=== PATIENT | female | born 1970 | race African-American/Black ===

== ENCOUNTER 2018-11-16 13:37 | Emergency (ER) | payer BC, SELFPAY ==
--- OUTSIDE RECORDS SUMMARY | 2018-11-16 13:40 | XMS REPORT ---
:1970 [facility] Address [address] [place] [address] Care Team Providers Name Role Phone CABRERA-JOSIE ANN Unavailable Unavailable Payers Payer Name Policy Type Policy Number Effective Date Expiration Date Problems This patient has no known problems. Allergies, Adverse Reactions, Alerts Allergy Allergy Status Severity Reaction(s) Onset Inactive Treating Comments Name Type Date Date Clinician No Known DA Active U 2018-03 Allergies - 00:00:0 0 No Known DA Active U 2018-02 Allergies - 00:00:0 0 No Known DA Active U 2018-01 Allergies - 00:00:0 0 No Known DA Active U 2017-11 Allergies - 00:00:0 0 Medications This patient has no known medications. Encounters Start End Encounter Admission Attending Care Care Encounter Date/Time Date/Time Type Type Clinicians Facility Department ID 2018-07-09 2018-07-09 Emergency E [facility] 7526 14:34:00 14:34:00 2018-05-16 2018-05-16 Emergency E [facility] 7525 13:42:00 13:42:00 Results Test Description Test Time Test Comments Text Results Atomic Results Result Comments GLUBED 2018-08-09 08:31:00 Test Item Value Reference Range Comments GLUBED (test code=GLUBED) 328 MG/DL 70-110 Performed by certified carbon furnace operator at [facility] [id number] 20:40:00 Test Item Value Reference Range Comments GLUBED (test code=GLUBED) 252 MG/DL 70-110 Performed by certified carbon furnace operator at [facility] [id number] 16:10:00 Test Item Value Reference Range Comments GLUBED (test code=GLUBED) 78 MG/DL 70-110 Performed by certified carbon furnace operator at [facility] [id number] 12:55:00 Test Item Value Reference Range Comments GLUBED (test code=GLUBED) 187 MG/DL 70-110 Performed by certified carbon furnace operator at [facility] - CT HEAD/BRAIN W/O [id number] 09:31:00 Name: DANIA JANE [facility] : 1970 Age/S: 48 / F [address] [place] [address] Unit #: [id number] Loc: Saúl [id number] Phys: Tami Miguel MD Acct: [id number] Dis Date: Status: ADM IN PHONE #: [phone] Exam Date: 907 FAX #: [phone] Reason: LEFT WEAKNESS , EVAL FOR STABILITY EXAMS: CPTCODE: [id number] CT HEAD/BRAIN W/O CONT 33885 CT head without contrast 08/08/2018 HISTORY: Left-sided weakness. PROCEDURE: Multipleaxial images from the skull base to the skull vertex were obtained without contrast. Coronal and sagittal reconstructed images were performed. DLP: 1016.5 Comparison is madeto 08/06/2018 FINDINGS: Old right basal ganglia lacunar infarct is noted. There are mild white matter hypodensities. No acute hemorrhage, midline shift, extra-axial fluid collection, hydrocephalus, or mass lesion is present. No cortical hypodensity to suggest an acuteinfarct is noted. The visualized mastoid air cells are clear. There is no air-fluid level in the visualized paranasal sinuses. Left nasal septal deviation is noted.IMPRESSION: 1. No acute intracranial abnormality. 2. Mild chronic microvascular ischemic changes. SL: [id number] at 0931 Reported and signed by: Manny Zuñiga M.D. CC: Bernardo Hazel MD; Tami Bonds MD; Tierra Man MD Technologist:Rey Bonner, RT(R)(CT) CTDI: DLP: Trnscb Date/Time: 08/08/2018 (09) [email or web address] Orig Print D/T: S: 08/08/2018 (0934) CTDI: DLP: PAGE 1 Signed [id number] 08:27:00 Test Item Value Reference Range Comments GLUBED (test code=GLUBED) 328 MG/DL 70-110 Performed by certified carbon furnace operator at [facility] HGBA1C%2018-08-08 08:09:00 Test Item Value Reference Range Comments HGBA1C% (test code=HGBA1C%) 13.6 %A1C 4.8-6.0 LIPID PROFILE (CORONARY RISK)2018-08-08 07:56:00 Test Item Value Reference Range Comments TRIGLYCERIDES (test 196 mg/dL 40-150 code=TRIG) CHOLESTEROL (test 430 mg/dL <200 code=CHOL) CHOLESTEROL/HDL RATIO (test 11.32 RATIO 3.27-4.44 RISK ASSOCIATED WITH CHOL/ HDL code=CHOLHDL) RATIOS: RISK MALE FEMALE1/2 AVERAGE 3.43 3.27AVERAGE 4.97 4.442X AVERAGE 9.55 7.053X AVERAGE 23.39 11.04 NOTE THAT THE REFERENCE VALUE IS RELATEDTO RISK LEVELS RECOMMENDED BY THE NATL.HEART, LUNG, AND BLOOD INST. HDL CHOLESTEROL (test 38.0 mg/dL 39-96 code=HDL) LIPOPROTEIN LDL (test 311 mg/dL 0-100 <100 [id number] NEAR code=LDL) OPTIMAL/ABOVE [id number] HIGH>CT=841 VERY HIGH*Guidelines provided by the National Cholesterol EducationProgram Adult Treatment Panel III COMMENTS: Fasting in AMBASIC METABOLIC [id number] 21:01:00 Test Item Value Reference Range Comments SODIUM (test code=NA) 145 mEq/L 134-147 POTASSIUM (test code=K) 3.1 mEq/L 3.4-5.0 CHLORIDE (test code=CL) 101 mEq/L 100-108 CARBON DIOXIDE (test code=CO2) 27 mEq/L 21-33 ANION GAP (test code=GAP) 20 0-20 GLUCOSE (test code=GLU) 179 mg/dL 70-110 BLOOD UREA NITROGEN (test 7 mg/dL 7-18 code=BUN) GLOMERULAR FILTRATION RATE 107.2 90-95 Units of measure=ml/min/1.73 (test code=GFR) m2 CREATININE (test code=CREAT) 0.7 mg/dL 0.6-1.3 CALCIUM (test code=CA) 9.2 mg/dL 8.0-10.5 [id number] 21:01:00 Test Item Value Reference Range Comments TROPONIN-I (test < 0.015 ng/mL 0.000-0.045 Negative: <=0.045 code=TROPI) Positive: >=0.046 Correlation with serial results, other cardiac markers andclinical findings is necessary to determine the clinicalsignificance of this result. Results using different methodologies should not be comparedto one another as quantitative results may vary by method. URINALYSIS [id number] 20:56:00 Test Item Value Reference Range Comments UA COLOR (test code=COLU) YELLOW YEL/STRAW UA APPEARANCE (test code=APPU) CLOUDY CLEAR UA GLUCOSE DIPSTICK (test code=DGLUU) 3+ NEGATIVE UA BILIRUBIN DIPSTICK (test code=BILU) NEGATIVE NEGATIVE UA KETONE DIPSTICK (test code=KETU) NEGATIVE NEGATIVE UA SPECIFIC GRAVITY (test code=SGU) 1.014 1.005-1.030 UA BLOOD DIPSTICK (test code=ELVIRA) NEGATIVE NEGATIVE UA PH DIPSTICK (test code=TY) 6.0 5.0-7.0 UA PROTEIN DIPSTICK (test code=PROU) 1+ NEGATIVE UA UROBILINIOGEN DIPSTICK (test code=URO) 0.2 mg/dL 0.2-1.0 UA NITRITE DIPSTICK (test code=CARLOTA) NEGATIVE NEGATIVE UA LEUKOCYTE ESTERASE DIPSTICK (test code=LEUU) 3+ NEGATIVE UA WBC (test code=WBCU) >50 WBC/HPF 0-3 UA RBC (test code=RBCU) 4-10 RBC/HPF 0-3 UA BACTERIA (test code=BACU) 1+ /HPF NONE SEEN UA SQUAMOUS CELLS (test code=SQU) 6-10 /HPF NONE SEEN UA HYALINE CAST (test code=HYALU) 3-5 /LPF NONE SEEN UA MUCUS (test code=MUCU) TRACE /LPF NONE SEEN COMMENTS: Clean CatchPROTHROMBIN [id number] 20:56:00 Test Item Value Reference Range Comments PROTHROMBIN TIME PATIENT 12.3 SECONDS 9.3-12.9 (test code=PTP) INTERNATIONAL NORMAL RATIO 1.1 0.8-1.2 TARGET INR BY (test code=INR) INDICATION Indication INR1. Prophylaxis of venous thrombosis 2.0 - 3.0 (orthopedic surgery), Prophylaxis of venous thrombosis (other than high-risk surgery), Treatment of Deep Vein Thrombosis/Pulmonary Embolism, Prevention of systemic embolism - Tissue heart valves, Acute Myocardial Infarction (to prevent systemic embolism), Valvular heart disease, Atrial Fibrillation, Bileaflet mechanical valve in aortic position.2. Mechanical prosthetic valves (high risk), 2.5 - 3.5 Presence of Lupus Anticoagulant or Antiphospholipid Antibodies, Prevention of systemic embolism - Acute Myocardial Infarction (to prevent recurrent infarct). THROMBOPLASTIN TIME [id number] 20:56:00 Test Item Value Reference Range Comments THROMBOPLASTIN TIME PARTIAL 34.6 Seconds 25.0-39.5 Therapeutic Range: (test code=PTT) 61.8-83.8 Sec Effective 05/22/2013 CBC W/O [id number] 20:51:00 Test Item Value Reference Range Comments WHITE BLOOD CELL (test code=WBC) 7.31 x10 3/uL 4.5-11.0 RED BLOOD CELL (test code=RBC) 4.45 x10 6/uL 3.54-5.02 HEMOGLOBIN (test code=HGB) 13.4 g/dL 11.0-15.0 HEMATOCRIT (test code=HCT) 39.3 % 33.0-45.0 MEAN CELL VOLUME (test code=MCV) 88.3 fL 81.0-99.0 MEAN CELL HGB (test code=MCH) 30.1 pg 27.0-33.0 MEAN CELL HGB CONCETRATION (test code=MCHC) 34.1 g/dL 33.0-37.0 RED CELL DISTRIBUTION WIDTH CV (test code=RDW) 12.4 % 11.5-14.5 RED CELL DISTRIBUTION WIDTH SD (test 40.8 fL 37.0-54.0 code=RDW-SD) PLATELET COUNT (test code=PLT) 318 x10 3/uL 150-400 MEAN PLATELET VOLUME (test code=MPV) 11.3 fL 7.0-9.0 - CT HEAD/BRAIN W/O [id number] 20:23:00 Name: DANIA JANE : 1970 Age/S: 48 / F [address] [facility] Unit #: [id number] Loc: YASIR Hays77598 Phys: Vinay Gross MD Acct: [id number] Dis Date: Status: REG ER PHONE #: [phone] Exam Date: 2007 FAX #: [phone] Reason: L sidedstroke symptoms EXAMS: CPTCODE: [id number] CT HEAD/BRAIN W/O CONT 56969 STUDY: - CT HEAD/BRAIN W/O CONT 08/06/2018 7 :46 PM Ordering Physician: Vinay Gross MD Patient Name: DANIA JANE MR: [id number] : 1970; Age: 48 years y/o Female Clinical Indication: Left side stroke symptoms. Comparison: 06/04/2018. TECHNIQUE: Multiple contiguous transaxial noncontrast CT images were obtained through thehead. Coronal and sagittal reformatted images were prepared. DLP: 419.70 mGy-cm FINDINGS: BRAIN PARENCHYMA: Mild diffuse age appropriate atrophy associated with nonspecific periventricular low low attenuation most consistent with old microangiopathic ischemic change. No evidence of acute intracranial hemorrhage, mass lesion, mass effect, midline shift, or extra-axial fluid collection. 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 VENTRICLES: The lateral ventricles, third ventricle, fourth ventricle, and basilar cisterns are appropriate for degree of atrophy present.PARANASAL SINUSES: The visualized portions of the paranasal sinuses are clear. MASTOIDS: Clear. ORBITS: The visualized portions of the orbits are normal.SOFT TISSUES: No significant abnormality. SKULL: No acute fracture or suspicious osseous lesion. IMPRESSION: PAGE 1 Signed Report (CONTINUED) Name: DANIA JANE : 1970 Age/S: 48 / F [address] [place] [address] Unit #: [id number] Loc: YASIR [place] [address] Phys: Vinay Gross MD Acct: [id number] Dis Date: Status: REG ER PHONE #: [phone] Exam Date: 08/06/20182007 FAX #: [phone] Reason: L sided stroke symptoms EXAMS: CPT CODE: [id number] CT HEAD/BRAIN W/O CONT 05139 <Continued> Mild diffuse age appropriate atrophy associated with nonspecific periventricular low low attenuation most consistent with old microangiopathic ischemic change. 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 No acute intracranial abnormality. SL: TPAINTER-H at 2022 Reported and signed by: Nawaf Land M.D. CC: Vinay Gross MD; Tierra Man MD Technologist:Leonela Ulloa RT(R)(CT) CTDI: DLP: Trnscb Date/Time: 08/06/2018 (2022) [place].TP6 [facility] S: 08/06/2018 (2025) CTDI: DLP: PAGE 2 Signed Report- XR CHEST 1 [id number] 20:22:00 FAX: Vinay Gross MD [phone] [place]: St: REG FAX: Tierra Shepard MD [phone] -- Name: DANIA JANE [facility] : 1970 Age/S: 48/F [address] [place] [address] Blvd Unit #: [id number] Loc: G.ERS2 [place] [address] Phys: Vinay Gross MD Acct: [id number] Dis Date: Status: REG ER PHONE #: [phone] Exam Date: 08/06/20182004 FAX #: [phone] Reason: L sidedstroke symptoms EXAMS: CPT CODE: [id number] XR CHEST 1 V 17598 Study: - XRCHEST 1 V 08/06/2018 7:46 PM Ordering Physician: Vinay Gross MD Clinical Indication: Left-sided stroke symptoms. Comparison: May 23, 2018 FINDINGS: The lungs are adequately expanded and clear. There is no evidence for alveolar consolidation, pleural effusion, pulmonary edema or pneumothorax. The cardiomediastinal silhouette is within normal limits. No acute osseous abnormality is seen. Soft tissues are unremarkable. IMPRESSION: No acute cardiopulmonary disease. SL: TRISTAN at 2021 Reported and signed by: Grisel Camejo M.D. CC: Vinay Gross MD; Tierra Man MD Technologist: RT Nasim(R)(M) Trnscrd Date/Time/By: 08/06/2018 ( 2021) : By: DionneYA Orig Print D/T: S: 08/06/2018 (2024) PAGE 1 Signed Report- XR L-SPINE 2/3 [id number] 16:03:00 FAX: Millicent ValenciaP [phone] [place]: St: PRE FAX: Tierra Shepard MD [phone] Name: DANIA JANE [facility] [place] : 1970 Age/S: 47/F [address] [place] [address] Unit #: [id number] Loc: [place] [address] Phys: Millicent ValenciaP Acct: [id number] Dis Date : Status: PRE ER PHONE #: [phone] Exam Date: 06/04/2018 1526 FAX #: [phone] Reason: fall -hit back on step EXAMS: CPT CODE: [id number] XR L-SPINE 2/3 VIEWS 44669 3 RADIOGRAPHIC VIEWS LUMBAR SPINE INDICATION: Fall and back pain. Struck the back. TECHNIQUE: 3 radiographic views lumbar spine COMPARISONS: CT lumbar spine 05/23/2018 FINDINGS: There are metallic leads overlying the upper abdomen.There is a stable retained wire posterior to the left L5-S1 facet joint. There had been a neurostimulator device which had been removed previously. There are advanced primaryosteoarthritic hypertrophic degenerative changes of the facets from L4-S1. There are 5 lumbar type vertebral segments below the last pair of thoracic ribs. There is no acute lumbar spine fracture or dislocation. There is 3 mm degenerative retrolisthesis of L1 on L2, 2 mm retrolisthesis of L2 on L3, 2 mm retrolisthesis of L3 on L4 and 3 mm anterolisthesis of L4 on L5. There is moderate degenerative disc height loss at L5-S1. IMPRESSION: 1. There is no acute lumbar spine fracture or dislocation. 2. There areadvanced primary osteoarthritic hypertrophic degenerative changes of the facets from L4-S1. There is 3 mm degenerative retrolisthesis of L1 on L2, 2 mm retrolisthesis of L2 on L3, 2 mm retrolisthesis of L3 on L4 and 3 mm anterolisthesis of L4 on L5. There is moderate degenerative disc height loss at L5-S1. 3. There is a stable retained wire posterior in the soft tissues to the left L5-S1 facet joint. There had been a neurostimulator device which had been removed previously. PAGE 1 Signed Report (CONTINUED) FAX: Millicent Valencia [phone] [place]: St : PRE FAX: Tierra Shepard MD [phone] Name: DANIA JANE [facility] : 1970 Age/S: 47/ F [address] [place] [address] Unit #: [id number] Loc: [place] [address] Phys: Millicent Valencia Acct: [id number] Dis Date: Status: PRE ER PHONE #: [phone] Exam Date: 06/04 1526 FAX #: [phone] Reason: fall -hit back on step EXAMS: CPT CODE : [id number] XR L-SPINE 2/3 VIEWS 34384 <Continued& gt; at 1603 Reportedand signed by: Ridge Mathews D.O. CC: Millicent Valencia; Tierra Man MD Technologist: JENNA Pinedo RT(R); Selina Patton RT (R) Trnscrd Date/Time/By:06/04/2018 (1600) : By: [email or web address] Orig Print D/T: S: 06/04/2018 (1350) PAGE 2 Signed Report- CT C-SPINE W/O [id number] 15:46:00 Name: DANIA JANE [facility] : 1970 Age/S: 47 / F [address] [place] [address] Unit #: [id number] Loc: YASIR Hays77598 Phys: Millicent Valencia Acct: [id number] Dis Date : Status: PRE ER PHONE #: [phone] Exam Date: 06/04/2018 1522 FAX #: [phone] Reason: fall -hit back of head on step-on [place]IX EXAMS: CPTCODE: [id number] CT C-SPINE W/O CONT 99246 STUDY: - CT HEAD/BRAIN W/O CONT, - CT C-SPINE W/O CONT 06/04/2018 3:03 PM Ordering Physician: Millicent Valencia Patient Name: DANIA JANE MR: [id number] : 1970; Age: 47 years y/o Female Clinical Indication: fall -hit back of head on step-on PLAVIX Comparison: May 23, 2018 TECHNIQUE: Multiple contiguous transaxial noncontrast CT images were obtained through the head. Coronal and sagittal reformatted images were prepared. DOSE: CT imaging performed at this location utilizes radiation dose optimization technique which includes one or more of the followin) Automated exposure control ; 2) Adjustment of the mA and/or kV according to patient's size; 3) Use of iterative reconstruction techniques. DLP (mGy-cm): 420 FINDINGS: The brain volume is appropriate for age. Probable subtle lacunar infarct within the right basal ganglia. No evidence of acute intracranial hemorrhage, mass lesion, mass effect, midline shift, or extra-axial fluid collection. The lateral ventricles, third ventricle, fourth ventricle, and basilar cisterns are appropriate for degree of atrophy present. The visualized portions of the paranasal sinuses are clear. Mastoids are clear. IMPRESSION: Probable subtle lacunar infarct within the right basal ganglia. Otherwise no acute intracranial abnormality. PAGE 1 Signed Report (CONTINUED) Name: DANIA JANE [facility] [place] : 1970 Age/S: 47 / F [address] [place] [address] Blvd Unit #: [id number] Loc: YASIR [place] [address] Phys: Millicent Valencia TALENT ACQUISITION DIRECTOR Acct: [id number] Dis Date: Status: PRE ER PHONE #: [phone] Exam Date: 06/04/2018 1522 FAX #: [phone] Reason: fall -hit back of head on step-on PLAVIX EXAMS: CPT CODE: [id number] C-SPINE W/O CONT 94918 <Continued> EXAM: CT CERVICAL SPINE WITHOUT CONTRAST DATE: 06/04/2018 3:03 PM : 1970 ; Age: 47 years y/o Female INDICATION: Neck pain fall -hit back of head on step-on PLAVIX COMPARISON: April 20, 2018 TECHNIQUE: Volumetric CT of the cervicalspine is acquired without contrast. Axial, coronal and sagittal images are provided. IV contrast: None. DLP: 298 mGy-cm CT imaging performed at this location utilizes radiation dose optimization techniques which include one or more of the following: -Automated exposure control - Adjustment of the mA and/or kV according to patient size -Use of iterative reconstruction technique FINDINGS: No acute fracture , malalignment or other acute bony abnormality is identified. No soft tissue abnormality is identified. Postoperative fusion changes again seen at C4-5. Straightening of the cervical spine again seen. Mild multilevel degenerative changes. Low-attenuation changes within the thyroid lobes again seen. IMPRESSION: No acute abnormality. SL: [id number] Electronically Signed by Heide Connolly on 02/2019 at 1546 Reported and signed by: Natasha Connolly D.O. CC: Millicent Man MD Technologist: Elizabeth Rea, RT(R) CTDI: DLP: Trnscb Date/Time: 06/04 (9689) t.SDR.MP37 Orig Print D/T: S: 06/04/2018 (0784) CTDI: DLP: PAGE 2 Signed Report- CT HEAD/ BRAIN W/O [id number] 15:46:00 Name: DANIA JANE [facility] [place] : 1970 Age/S: 47 / F [address] [place] [address] Bl Unit #: [id number] Loc: Saúl [id number] Phys: Millicent Valencia Acct: [id number] Dis Date: Status: PRE ER PHONE #: [phone] Exam Date: 06/04/2018 1522 FAX #: [phone] Reason: fall -hit back of head on step-on [place]VIX EXAMS: CPTCODE: [id number] CT HEAD/BRAIN W/O CONT 94910 STUDY: - CT HEAD/BRAIN W/O CONT, - CT C-SPINE W/O CONT 06/04/2018 3:03 PM Ordering Physician: Millicent Valencia Patient Name: DANIA JNAE MR: [id number] : 1970; Age: 47 years y/o Female Clinical Indication: fall -hit back of head on step-on PLAVIX Comparison: May 23, 2018 TECHNIQUE: Multiple contiguous transaxial noncontrast CT images were obtained through the head. Coronal and sagittal reformatted images were prepared. DOSE: CT imaging performed at this location utilizes radiation dose optimization technique which includes one or more of the followin) Automated exposure control; 2) Adjustment of the mA and/or kV according to patient's size; 3) Use of iterative reconstruction techniques. DLP (mGy-cm): 420 FINDINGS: The brain volume is appropriate for age. Probable subtle lacunar infarct within the right basal ganglia. No evidence of acute intracranial hemorrhage, mass lesion, mass effect, midline shift, or extra-axial fluid collection. The lateral ventricles, third ventricle, fourth ventricle, and basilar cisterns are appropriate for degree of atrophy present. The visualized portions of the paranasal sinuses are clear. Mastoids are clear. IMPRESSION: Probable subtle lacunar infarct within the right basal ganglia. Otherwise no acute intracranial abnormality. PAGE 1 Signed Report (CONTINUED) Name: [facility] : 1970 Age/S: 47 / F [address] [place] [address] Unit #: [id number] Loc: [place] [address] Phys: Millicent Valencia Acct: [id number] Dis Date: Status: PRE ER PHONE #: [phone] Exam Date: 06/04/2018 1522 FAX #: [phone] Reason: fall -hit back of head on step-on PLAVIX EXAMS: CPT CODE : [id number] HEAD/BRAIN W/O CONT 21025 & lt;Continued> EXAM: CT CERVICAL SPINE WITHOUT CONTRAST DATE: 06/04/2018 3:03 PM : 1970; Age: 47 years y/o Female INDICATION: Neck pain fall -hit back of head on step-on PLAVIX COMPARISON: April 20, 2018 TECHNIQUE: Volumetric CT of the cervicalspine is acquired without contrast. Axial, coronal and sagittal images are provided. IV contrast: None. DLP: 298 mGy-cm CT imaging performed at this location utilizes radiation dose optimization techniques which include one or more of the following: - Automated exposure control -Adjustment of the mA and/or kV according to patient size -Use of iterative reconstruction technique FINDINGS: No acute fracture, malalignment or other acute bony abnormality is identified. No soft tissue abnormality is identified. Postoperative fusion changes again seen at C4-5. Straightening of the cervical spine again seen. Mild multilevel degenerative changes. Low- attenuation changes within the thyroid lobes again seen. IMPRESSION: No acute abnormality. SL: [id number] at 1546 Reported and signed by: Natasha Connolly D.O. CC: Millicent Man MD Technologist:Elizabeth Rea, RT(R) CTDI: DLP: Trnscb Date/Time: 06/04/2018 (2247) t.SDR.MP37 Orig Print D/T: S: 06/04/2018 (6695) CTDI: DLP: PAGE 2 Signed [id number] 16:10:00 Test Item Value Reference Range Comments GLUBED (test code=GLUBED) 319 MG/DL 70-110 Performed by certified carbon furnace operator at [facility] BASIC METABOLIC [id number] 13:55:00 Test Item Value Reference Range Comments SODIUM (test code=NA) 135 mEq/L 134-147 POTASSIUM (test code=K) 4.2 mEq/L 3.4-5.0 CHLORIDE (test code=CL) 99 mEq/L 100-108 CARBON DIOXIDE (test code=CO2) 28 mEq/L 21-33 ANION GAP (test code=GAP) 12 0-20 GLUCOSE (test code=GLU) 395 mg/dL 70-110 BLOOD UREA NITROGEN (test 12 mg/dL 7-18 code=BUN) GLOMERULAR FILTRATION RATE 92.2 95-105 Units of measure=ml/min/1.73 (test code=GFR) m2 CREATININE (test code=CREAT) 0.8 mg/dL 0.6-1.3 CALCIUM (test code=CA) 8.1 mg/dL 8.0-10.5 [id number] 13:55:00 Test Item Value Reference Range Comments ALCOHOL (test code=ALC) < 0.003 G/dL <0.003 Ethyl Alcohol Interpretation: 0.100 gm/dL - Legally Intoxicated 0.300-0.400 gm/dL - Severely Intoxicated >0.400 gm/dL - Potentially LethalResults are for Medical purposes only, and not for Legal orEmployment evaluation purposes. PROTHROMBIN [id number] 13:48:00 Test Item Value Reference Range Comments PROTHROMBIN TIME PATIENT 11.0 SECONDS 9.3-12.9 (test code=PTP) INTERNATIONAL NORMAL RATIO 1.0 0.8-1.2 TARGET INR BY (test code=INR) INDICATION Indication INR1. Prophylaxis of venous thrombosis 2.0 - 3.0 (orthopedic surgery), Prophylaxis of venous thrombosis (other than high-risk surgery), Treatment of Deep Vein Thrombosis/Pulmonary Embolism, Prevention of systemic embolism - Tissue heart valves, Acute Myocardial Infarction (to prevent systemic embolism), Valvular heart disease, Atrial Fibrillation, Bileaflet mechanical valve in aortic position.2. Mechanical prosthetic valves (high risk), 2.5 - 3.5 Presence of Lupus Anticoagulant or Antiphospholipid Antibodies, Prevention of systemic embolism - Acute Myocardial Infarction (to prevent recurrent infarct). THROMBOPLASTIN TIME [id number] 13:48:00 Test Item Value Reference Range Comments THROMBOPLASTIN TIME PARTIAL 25.5 Seconds 25.0-39.5 Therapeutic Range: (test code=PTT) 61.8-83.8 Sec Effective 05/22/2013 CBC W/AUTO [id number] 13:36:00 Test Item Value Reference Range Comments WHITE BLOOD CELL (test code=WBC) 6.51 x10 3/uL 4.5-11.0 RED BLOOD CELL (test code=RBC) 4.25 x10 6/uL 3.54-5.02 HEMOGLOBIN (test code=HGB) 13.5 g/dL 11.0-15.0 HEMATOCRIT (test code=HCT) 39.4 % 33.0-45.0 MEAN CELL VOLUME (test code=MCV) 92.7 fL 81.0-99.0 MEAN CELL HGB (test code=MCH) 31.8 pg 27.0-33.0 MEAN CELL HGB CONCETRATION (test code=MCHC) 34.3 g/dL 33.0-37.0 RED CELL DISTRIBUTION WIDTH CV (test code=RDW) 12.9 % 11.5-14.5 RED CELL DISTRIBUTION WIDTH SD (test 43.7 fL 37.0-54.0 code=RDW-SD) PLATELET COUNT (test code=PLT) 290 x10 3/uL 150-400 MEAN PLATELET VOLUME (test code=MPV) 11.3 fL 7.0-9.0 NEUTROPHIL % (test code=NT%) 60.0 % 56.0-77.0 IMMATURE GRANULOCYTE % (test code=IG%) 0.2 % 0.0-2.0 LYMPHOCYTE % (test code=LY%) 28.6 % 14.0-32.0 MONOCYTE % (test code=MO%) 7.7 % 4.8-9.0 EOSINOPHIL % (test code=EO%) 2.6 % 0.3-3.7 BASOPHIL % (test code=BA%) 0.9 % 0.0-2.0 NUCLEATED RBC % (test code=NRBC%) 0.0 % 0-0 NEUTROPHIL # (test code=NT#) 3.91 x10 3/uL 2.0-7.6 IMMATURE GRANULOCYTE # (test code=IG#) 0.01 x10 3/uL 0.00-0.03 LYMPHOCYTE # (test code=LY#) 1.86 x10 3/uL 1.0-3.8 MONOCYTE # (test code=MO#) 0.50 x10 3/uL 0.1-0.8 EOSINOPHIL # (test code=EO#) 0.17 x10 3/uL 0.0-0.2 BASOPHIL # (test code=BA#) 0.06 x10 3/uL 0.0-0.2 NUCLEATED RBC # (test code=NRBC#) 0.00 x10 3/uL 0.0-0.1 MANUAL DIFF REQUIRED (test code=MDIFF) NO - CT L-SPINE W/O [id number] 12:21:00 Name: DANIA JANE [facility] : 1970 Age/S: 47 / F [address] [place] [address] Unit #: [id number] Loc: YASIR [place]77598 Phys: Everardo Jesus Acct: [id number] Dis Date: Status: REG ER PHONE #: [phone] Exam Date: 1143 FAX #: [phone] Reason: fall with occipital head strike, lower back kirti EXAMS: CPTCODE: [id number] CT L-SPINE W/O CONTRAST 19089 EXAM: CT lumbar SPINE WITHOUT CONTRAST DATE: 05/23/2018 10:52 AM 47 years y/o FemaleINDICATION: fall with occipital head strike, lower back pain COMPARISON: CT June TECHNIQUE: Volumetric CT acquisition of the lumbar spine without contrast.Axial, sagittal and coronal reconstructions. IV contrast: None. DLP: 953 mGy-cm CTimaging performed at this location utilizes radiation dose optimization techniques which include one or more of the following: -Automated exposure control -Adjustment of the mA and/ orkV according to patient size -Use of iterative reconstruction technique FINDINGS: No fracture, malalignment or other acute bony abnormality is identified. Prior noted multilevel broad-based posterior disc bulges are again grossly seen, however evaluation is limited dueto lack of intrathecal contrast. Interval removal of the lower lumbar stimulator deviceis seen with retained short segment of wire adjacent to the left L5-S1 facet joint. Probable healed prior L5 laminotomy with severe facet arthropathy again seen. No inflammatory fat stranding. Severe facet disease bilaterally at L4-5 and L5-S1 levels with adjacent bony hypertrophy. IMPRESSION: 1. Prior noted multilevel broad-based posterior disc bulges are again grossly seen, however evaluation is limited due to lack of intrathecal contrast. 2. Interval removal of the lower lumbar stimulator device is seen with retained short segment of wire adjacent to the left L5-S1 facet joint. 3. Severe facet disease bilaterally at L4-5 and L5-S1 levels with adjacent bony hypertrophy. SL: [id number] PAGE 1 Signed Report ( CONTINUED) Name: DANIA JANE [facility] : 1970 Age/S: 47 / F [address] [place] [address] Unit #: [id number] Loc: [place] [address] Phys: Everardo Jesus Acct: [id number] Dis Date: Status: REG ER PHONE #: [phone] Exam Date: 05/23/2018 1143 FAX #: [phone] Reason: fall with occipital head strike, lower back kirti EXAMS: CPT CODE: [id number] CT L-SPINE W/O CONTRAST 57953 <Continued> Electronically Signed by Heide Connolly on 2018 at 1221 Reported and signed by: Natasha Connolly D.O. CC: Everardo BLACKWOOD ; Tierra Man MD Technologist:RT Dre(R) CTDI: DLP: Trnscb Date/Time: 05/23/2018 (1221) [email or web address] Orig Print D/T: S: 05/23/2018 (1224) CTDI: DLP:PAGE 2 Signed Report- CT HEAD/BRAIN W/O [id number] 12:03:00 Name: DANIA JANE CHERYL [facility] : 1970 Age/S: 47 / F [address] [place] [address] Unit #: [id number] Loc: YASIR [place]77598 Phys: Everardo Jesus Acct: [id number] Dis Date: Status: PRE ER PHONE #: [phone] Exam Date: 05/23/2018 1143 FAX #: [phone] Reason: fall with occipital head strike EXAMS: CPTCODE: [id number] CT HEAD/BRAIN W/O CONT 59381 STUDY: - CT HEAD/BRAIN W/O CONT 05/23/2018 10:52 AM Ordering Physician: JAISON Singleton Patient Name: DANIA JANE MR: [id number] : ; Age: 47 years y/o Female Clinical Indication: fall with occipital head strike Comparison: April 20, 2018 TECHNIQUE: Multiple contiguous transaxial noncontrast CT images were obtained through the head. Coronal and sagittal reformatted images were prepared. DOSE:CT imaging performed at this location utilizes radiation dose optimization technique which includes one or more of the followin) Automated exposure control; 2) Adjustment of the mA and/or kV according to patient's size; 3) Use of iterative reconstruction techniques. DLP (mGy-cm): 420 FINDINGS: The brain volume is appropriate for age. No evidence of acute intracranial hemorrhage, mass lesion, mass effect, midline shift, or extra-axial fluid collection. The lateral ventricles, third ventricle, fourth ventricle, and basilar cisterns are appropriate for degree of atrophy present. The visualized portions of the paranasal sinuses are clear. Mastoids are clear. IMPRESSION: No acute intracranial abnormality. If there is further concern for intracranial pathology or acute stroke, further assessment with an MRIof the brain should be considered. SL: [id number] PAGE 1 Signed Report ( CONTINUED) Name: DANIA JANE [facility] : Age/S: 47 / F [address] [facility] Unit #: [id number] Loc: [place] [address] Phys: Everardo Jesus Acct: [id number] Dis Date: Status: PRE ER PHONE #: [phone] Exam Date: 05/23/2018 1143 FAX #: [phone] Reason: fall with occipital head strike EXAMS: CPT CODE: [id number] CT HEAD/BRAIN W/O CONT 23228 <Continued> ElectronicallySigned by Heide Connolly on 05/23/2018 at 1203 Reported and signed by: Natasha Connolly D.O. CC:Everardo BLACKWOOD; Tierra Man MD Technologist:Andry Omalley, (R) CTDI: DLP: Trnscb Date/Time: 05/23/2018 (1203) [email or web address] Orig Print D/T: S: 05/23/2018 (3881) CTDI : DLP: PAGE 2 Signed Report- XR PELVIS 1/2 [id number] 11:38:00 FAX: Everardo Jesus [phone] [place]: St: PRE FAX: Tierra Shepard MD [phone] Name: DANIA JANE [facility] : 1970 Age/S: 47/F [address] [place] [address] Unit #: [id number] Loc: [place] [address] Phys: Everardo Jesus Acct: [id number] Dis Date : Status: PRE ER PHONE #: [phone] Exam Date: 05/23/2018 1121 FAX #: [phone] Reason: trauma,with lower extremity radiculopathy EXAMS : CPT CODE: [id number] XR PELVIS 1/2 VIEWS 82708 Study: - XRPELVIS 1/2 VIEWS 05/23/2018 10:54 AM Patient Name: DANIA JANE MR: [id number] DATE: 05/23/2018 10:54 AM : 1970; Age: 47 years y/o Female Ordering Physician: JAISON Singleton Clinical Indication: trauma, with lower extremity radiculopathy Comparison: CT July 03, 2016 Pelvic, 1 View: Pelvic ring is grossly intact. Lower lumbar spine degenerative disease is partially seen. If there is further concern, recommend follow-up radiographs or CT for complete assessment. SL: [id number] at 1134 Reported and signed by: Natasha Connolly D.O. CC: Everardo BLACKWOOD; Tierra Man MD Technologist: RT Genaro(R) Trnscrd Date/Time/By: 05/23/2018 (5667) :By: [email or web address] Orig Print D/T: S: 05/23/2018 (7851) PAGE 1 Signed Report- XR CHEST 1 [id number] 11:30:00 FAX: Everardo Jesus [phone] [place]: St: PRE FAX: Tierra Shepard MD [phone] Name: DANIA JANE [facility] : 1970 Age/S: 47/F [address] [place] [address] Unit #: [id number] Loc: [place] [address] Phys: Everardo Jesus Acct: [id number] Dis Date: Status: PRE ER PHONE #: [phone] Exam Date: 2018 1121 FAX #: [phone] Reason: fall, upper back pain EXAMS: CPT CODE: [id number] XR CHEST 1 V 42407 EXAM: Single view portable AP chest. EXAM DATE: 05/23/2018 at 1117 hours CLINICAL HISTORY: Fall, upper back pain COMPARISON: April 18, 2018 Cardiomediastinal silhouette is within normal limits. The lungs appear free of acute disease.There is mild nonspecific elevation of the right hemidiaphragm. Osseous structures demonstratepostsurgical changes in the cervical spine. IMPRESSION: No evidence of acute cardiopulmonary disease. at 1130 Reported and signed by:Yamini Jiménez M.D. CC: Everardo BLACKWOOD; Tierra Man MD Technologist: NELSON Lam) Trnscrd Date/Time/By: 05/23/2018 (1240) : By: ChelyCER Orig Print D/T: S: 05/23/2018 (4451) PAGE 1 Signed ReportPOCT-GLUCOSE [id number] 14:25:00 Test Item Value Reference Range Comments POC-GLUCOSE METER (BEAKER) 207 mg/dL 70-110 TESTED AT [address] (test mhna=6223) [place] [address] POCT-GLUCOSE [id number] 10:19:00 Test Item Value Reference Range Comments POC-GLUCOSE METER (BEAKER) 297 mg/dL 70-110 TESTED AT [address] (test ledu=8703) [place] [address] GLUCOSE-STAT [id number] 09:56:00 Test Item Value Reference Range Comments GLUCOSE RANDOM (BEAKER) (test pblp=731) 371 mg/dL 70-110 POCT-GLUCOSE [id number] 08:54:00 Test Item Value Reference Range Comments POC-GLUCOSE METER (BEAKER) 376 mg/dL 70-110 TESTED AT [address] (test hfih=7217) [place] [address] BASIC METABOLIC [id number] 15:51:00 Test Item Value Reference Range Comments SODIUM (BEAKER) (test 135 meq/L 136-145 brlu=911) POTASSIUM (BEAKER) (test 4.4 meq/L 3.5-5.1 Specimen moderately jpbt=143) hemolyzed CHLORIDE (BEAKER) (test 101 meq/L 98-107 pncw=681) CO2 (BEAKER) (test 22 meq/L 22-29 ivuf=730) BLOOD UREA NITROGEN 7 mg/dL 7-21 (BEAKER) (test oxhz=800) CREATININE (BEAKER) (test 0.85 mg/dL 0.57-1.25 Specimen moderately oflb=604) hemolyzed GLUCOSE RANDOM (BEAKER) 338 mg/dL 70-105 (test zobf=925) CALCIUM (BEAKER) (test 9.1 mg/dL 8.4-10.2 hpgl=660) EGFR (FERCHO) (test 87 mL/min/1.73 sq m ESTIMATED GFR IS NOT wqqx=3755) ACCURATE CREATININE CLEARANCE IN PREDICTING GLOMERULAR FILTRATION RATE. ESTIMATED GFR IS NOT APPLICABLE FOR DIALYSIS PATIENTS. [id number] 14:01:00 Test Item Value Reference Range Comments HEMOGLOBIN (FERCHO) (test mypl=370) 12.7 GM/DL 11.2-15.7
--- OUTSIDE RECORDS SUMMARY | 2018-11-16 13:40 | XMS REPORT | Clinical Summary ---
:1970 Author Organization [facility] Address [address] [place] [address] Care Team Providers Name Role Phone Tierra Man Primary Care Provider Allergies No Known Allergies Medications Medication Sig Dispensed Refills Start Date End Date Status nitroglycerin Place 0.4 mg under 0 Active (NITROSTAT) 0.4 MG the tongue every 5 SL tablet (five) minutes as needed for Chest pain Put 1 pill under tongue every 5min as needed for chest pain.No more than 3 doses in 15min.Call 911 if pain is unrelieved 5min after 1st dose . metFORMIN Take 1,000 mg by 0 Active (GLUCOPHAGE) 1000 MG mouth 2 (two) times tablet daily with breakfast and dinner. lisinopril Take 20 mg by mouth 0 Active (PRINIVIL,ZESTRIL) 2 (two) times daily 20 MG tablet . furosemide (LASIX) Take 20 mg by mouth 0 Active 20 MG tablet daily. FLUoxetine (PROZAC) Take 40 mg by mouth 0 Active 40 MG capsule daily. clopidogrel (PLAVIX) Take 75 mg by mouth 0 Active 75 mg tablet daily. atorvastatin Take 80 mg by mouth 0 Active (LIPITOR) 80 MG daily. tablet aspirin 81 MG EC Take 81 mg by mouth 0 Active tablet daily. insulin lispro Inject 30 Units 0 Active (HUMALOG) 100 subcutaneously 3 unit/mL injection (three) times daily before meals. insulin detemir Inject 40 Units 0 Active (LEVEMIR) 100 subcutaneously 2 unit/mL injection (two) times daily. carvedilol (COREG) Take 12.5 mg by 0 Active 12.5 MG tablet mouth daily. gabapentin Take 300 mg by mouth 0 Active (NEURONTIN) 300 MG 3 (three) times capsule daily. metoclopramide Take 5 mg by mouth 3 0 Active (REGLAN) 5 MG tablet (three) times daily. traMADol (ULTRAM) 50 Take 50 mg by mouth 0 Active mg tablet every 8 (eight) hours as needed for Pain. ondansetron (ZOFRAN, Take 1 tablet (4 mg 30 tablet 1 04/07/2017 HYDROCHLORIDE,) 4 total) by mouth 3 8 MG tablet (three) times daily as needed for Nausea. Active Problems Problem Noted Date Diabetic gastroparesis 04/07/2017 Chest pain, unspecified type 02/29/2016 Social History Tobacco Use Types Packs/Day Years Used Date Never Smoker Smokeless Tobacco: Never Used Alcohol Use Drinks/Week oz/Week Comments No Sex Assigned at Date Recorded Not on file Job Start Date Occupation Industry Not on file Not on file Not on file Travel History Travel Start Travel End No recent travel history available. Last Filed Vital Signs Not on file Plan of Treatment Not on file Implants Implanted Type Area Senior It Specialist Device Shelf Model / Identifier Expiration Serial / Date Lot Lead Enterra [id number] - [id number] Bariatric N/A: [employer]:NEURO 2018 [id number] / Implanted: Qty: 1 on 04/07/2017 by Tali Mata MD Abdomen MODULATION [id number] / [id number] Lead Enterra [id number] - [id number] Bariatric N/A: [employer]:NEURO 2018 [id number] / Implanted: Qty: 1 on 04/07/2017 by Tali Mata MD Abdomen MODULATION [id number] / [id number] Stimulator Neuro Enterra Ii - [id number] Neuro N/A: [employer]:NEURO [id number] / Implanted: Qty: 1 on 04/07/2017 by Tali Mata MD Abdomen MODULATION [id number] / Results Not on fileafter 11/15/2017 Insurance Payer Benefit Plan / Subscriber ID Type Phone Address Group BLUE CROSS/BLUE BCBS ADV HMO xxxxxxxxxxxx [phone] [address] [place] [address] Advance Directives For more information, please contact:[place] [address] Srikanth DucFeroz [place] [phone] Code Status Date Activated Date Inactivated Comments Full Code 04/07/2017 8:16 AM 04/07/2017 8:36 PM This code status was determined by: Patient Full Code 02/29/2016 7:53 PM 03/02/2016 5:16 PM This code status was determined by: Patient
--- NOTE | 2018-11-16 13:54 | RAD REPORT ---
EXAM DESCRIPTION: CT - Ct Stroke Brain Wo Cont - 11/16/2018 1:44 pm CLINICAL HISTORY: Confusion/alteration of awareness COMPARISON: July 23, 2018 TECHNIQUE: Computed axial tomography of the head was obtained. All CT scans are performed using dose optimization technique as appropriate and may include automated exposure control or mA/KV adjustment according to patient size. FINDINGS: An intracranial bleed is not seen . The ventricles are normal in caliber. No extra-axial fluid collection is noted. Small low-density area has developed within the anterior limb of the right internal capsule extending to the right caudate head Fluid within the sinuses/ mastoids is not seen. IMPRESSION: Small low-density area has developed within the anterior limb of the right internal caps ule extending to the right caudate head consistent with an infarct. Age is indeterminate. MR Brain re commended Dalila of the emergency room was notified at 1:47 p.m. November 16, 2018
[2018-11-16 14:01] LABS: Absolute Lymphocytes (CBC) 3.2 K/uL (0.7-4.9); Basophils % 1.2 % (0-1.3); Lymphocytes % 27.6 % (15.3-44.8); MPV 10.5 fL (7.6-11.3); RBC Red Blood Cell Count 4.15 M/uL (3.86-4.86)
[2018-11-16 14:05] LABS: Protime INR 0.94
--- NOTE | 2018-11-16 14:13 | RAD REPORT ---
EXAM DESCRIPTION: [place] Single View11/16/2018 2:07 pm CLINICAL HISTORY: Code stroke. Numbness COMPARISON: February 2016 FINDINGS: Right hemidiaphragm remains elevated The lungs appear clear of acute infiltrate. The heart is normal size IMPRESSION: No acute abnormalities displayed
[2018-11-16 14:26] LABS: Blood Morphology Comment NOT SEEN (NOT SEEN); Platelet Estimate ADEQ
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
[2018-11-16 14:37] LABS: Potassium 3.6 mmol/L (3.5-5.1)
[2018-11-16] MEDS ORDERED: ALTEPLASE 100 ML IV ONE (14:45)
[2018-11-16] MEDS ORDERED: NA CHLORIDE 0.9% 1,000 ML ONE (14:58)
[2018-11-16] MEDS ORDERED: FAMOTIDINE 20 MG/2 ML VIAL IV ONE (14:59)
[2018-11-16] MEDS ORDERED: FOLIC ACID 5 MG/ML VIAL ONE (15:00)
[2018-11-16] MEDS ORDERED: ACETAMINOPHEN 325 MG TABLET ONE (15:48)
--- NOTE | 2018-11-16 15:48 | RAD REPORT ---
EXAM DESCRIPTION: CT - Head angio - 11/16/2018 3:16 pm CLINICAL HISTORY: Dizziness, TIA, stroke-like symptoms TECHNIQUE: During dynamic enhancement using nonionic IV contrast, axial 1 millimeter thick images of the head were obtained. Sagittal and axial reconstruction images were generated and reviewed. All CT scans are performed using dose optimization technique as appropriate and may include automated exposure control or mA/KV adjustment according to patient size. COMPARISON: CT head same date FINDINGS: No aneurysm or vascular malformation identified. Major venous sinuses are patent. No stenosis, named branch occlusion, vasculitis or other significant vascular finding identifiable. T he anterior and posterior communicating arteries identified. The area of abnormal attenuation in the right head of the caudate and anterior limb internal capsule region detailed on the CT study is no CT angio head correlate. The small perforating vessels supplyin g this region are below resolution of CT angiography. The larger parent vessels show no significant a therosclerotic change or luminal narrowing in this region. IMPRESSION: CT angio head examination shows no significant or suspicious finding. No abnormality seen in the area of concern near the right head of the caudate and anterior limb inter nal capsule. The small perforating vessels supplying this region are below resolution of CT angiograp hy. The parent or supplying vessels to the perforators show no significant finding.
[2018-11-16] MEDS ORDERED: FENTANYL CITR 100 MCG/2 ML ONE ×2 (15:49→20:14)
[2018-11-16] MEDS ORDERED: ONDANSETRON 4 MG/2 ML VIAL ONE ×2 (15:49→20:14)
--- NOTE | 2018-11-16 15:52 | RAD REPORT ---
EXAM DESCRIPTION: CT - Neck Angio - 11/16/2018 3:18 pm CLINICAL HISTORY: Dizziness, TIA, stroke-like symptoms TECHNIQUE: During dynamic enhancement using nonionic IV contrast, axial 2 mm thick images of the nec k were obtained. Sagittal and axial reconstruction images were generated and reviewed. All CT scans are performed using dose optimization technique as appropriate and may include automated exposure control or mA/KV adjustment according to patient size. COMPARISON: CT head same date, CTA head same date FINDINGS: No aneurysm or vascular malformation identified. No carotid or vertebral dissection. Aortic arch is bovine configuration. There is tortuosity of the innominate and proximal left common c arotid arteries. Vertebral artery origins show no suspicious findings. Left vertebral artery is domin ant. No dissection findings. No stenosis, vasculitis or other significant carotid artery finding. No focal abnormality of either vertebral artery. Basilar artery is normal. Thyroid gland is enlarged and contains several nodules but are not fully assessed in this setting. IMPRESSION: Negative CT angio neck examination for acute or significant finding. Prominent size to the thyroid gland with multiple nodules seen. Assessment is limited in this setting . Follow-up outpatient sonography can be performed as warranted.
[2018-11-16] MEDS ORDERED: LABETALOL HCL 100 MG TAB ONE (20:13)
[2018-11-16] MEDS ORDERED: LABETALOL HCL 100 MG/20 ML ONE (20:13)
--- NOTE | 2018-11-18 06:32 | EKG ---
Test Date: 2018-11-16 Test Time: 13:57:55 Catcher Filter Tip: KRISTEN MEASUREMENT RESULTS: Intervals: Rate: 101 MA: 134 QRSD: 78 QT: 346 QTc: 448 [place]: P: 70 MA: 134 QRS: 97 T: 36 INTERPRETIVE STATEMENTS: Sinus tachycardia Rightward axis Cannot rule out Anterior infarct, age undetermined Abnormal ECG Compared to ECG 05/03/2016 11:09:14 Right-axis deviation now present Sinus rhythm no longer present Right superior axis no longer present Myocardial infarct finding still present Electronically Signed On 11-18-18 06:31:34 CDT by Michael Thomas
== END 2018-11-16 20:22 | disposition short-term general hospital (02) ==
LOC: ER 13:37
DX: I63.9 Cerebral infarction, unspecified (principal); R29.810 Facial weakness; E10.9 Type 1 diabetes mellitus without complications; I25.10 Atherosclerotic heart disease of native coronary artery without angina pectoris; I10 Essential (primary) hypertension; E78.5 Hyperlipidemia, unspecified; Z79.4 Long term (current) use of insulin
CPT/HCPCS: 36415; 70450; 70496; 70498; 71045; 80048; 82962; 85025; 85610; 85730; 92977; 93005; 96374; 96375; 99285; J2405; J2997; J3010; J7030; Q9967

== ENCOUNTER 2018-12-17 17:55 | Emergency (ER) | payer SELFPAY ==
--- NOTE | 2018-12-17 18:26 | RAD REPORT ---
EXAM DESCRIPTION: CT - Ct Stroke Brain Wo Cont - 12/17/2018 6:11 pm CLINICAL HISTORY: Left-sided numbness and tingling, right-sided headache CLINICAL HISTORY: CT head November 16 TECHNIQUE: Axial 5 millimeter thick images of the head were obtained without IV contrast. All CT scans are performed using dose optimization technique as appropriate and may include automated exposure control or mA/KV adjustment according to patient size. FINDINGS: No intracranial hemorrhage, mass, or cerebral edema. No acute cortical based infarction. N o cortical edema or sulcal effacement. Old focal CVA changes are present anterior limb internal capsu le on the right extending into the head of the caudate. Underlying chronic ischemic change seen. No s ignificant atrophy change. Ventricles are normal. No extra-axial fluid collections. Harmon matter-whit e matter differentiation is preserved. Visualized portions of the mastoid air cells, paranasal sinuses, and orbits are unremarkable. Findings telephoned to the referring physician 1821 hours. IMPRESSION: No intracranial hemorrhage. Old ischemic injuries are present but no acute infarction changes are evident.
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
[2018-12-17] MEDS ORDERED: NA CHLORIDE 0.9% 1,000 ML ONE (18:42)
[2018-12-17 18:43] LABS: ALT/SGPT 28 U/L (12-78); AST/SGOT 14 U/L (15-37); Albumin 3.2 g/dL (3.4-5.0); Alkaline Phosphatase 120 U/L (45-117); BUN Blood Urea Nitrogen 15 mg/dL (7-18); Bicarbonate 25 mmol/L (21-32); Bilirubin Direct < 0.1 mg/dL (0-0.2); Bilirubin Total 0.2 mg/dL (0.2-1.0); Magnesium 1.7 mg/dL (1.8-2.4); NT PRO-BNP 28 pg/mL (<125); Protein, Total 7.5 g/dL (6.4-8.2); Sodium Level 139 mmol/L (136-145); Troponin (Emerg Dept Use Only) < 0.02 ng/mL (0.0-0.045)
[2018-12-17] MEDS ORDERED: FOLIC ACID 5 MG/ML VIAL ONE (18:43)
[2018-12-17 18:46] LABS: Glucose Level 447 mg/dL (74-106)
--- OUTSIDE RECORDS SUMMARY | 2018-12-17 18:52 | XMS REPORT | Continuity of Care Document ---
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 Weight 96.818, kg, Start date: 02/04/18 17:00:00 CDT, Duration: 30 day, Stop date: 03/05/18 17:00:00 CSTNotes: (Same as: Prozac) insulin 40 unit, 0.4 No Longer glargine mL, Route: Active 2017 [facility] SUB-Q, Drug form: SOLN, Daily, Start date: 02/04/18 9:00:00 CDT, Duration: 30 day, Stop date: 03/05/18 9:00:00 CSTNotes: (Same as: Lantus) Do not hold insulin without contacting prescriber WASTE: F/P - Black; E - [employer] Trash Bin "single patient use only" gabapentin 100 100 mg, 1 No Longer MG Oral Capsule cap, Route: Active 2017 [facility] PO, Drug form: CAP, TID, Dosing Weight 96.818, kg, Start date: 02/04/18 9:00:00 CDT, Duration: 30 day, Stop date: 03/05/18 17:00:00 CSTNotes: (Same as: Neurontin) Furosemide 20 20 mg, 1 Inactive MG Oral Tablet tab, Route: 2017 [facility] [Lasix] PO, Drug form: TAB, Daily, Dosing Weight 96.818, kg, Start date: 02/04/18 9:00:00 CDT, Duration: 30 day, Stop date: 03/05/18 9:00:00 CSTNotes: (Same as: Lasix) May cause GI upset. Give with food or milk. Aspirin 81 MG 81 mg, 1 No Longer Enteric Coated tab, Route: Active 2017 [facility] Tablet PO, Drug form: ECTAB, Daily, Dosing Weight 96.818, kg, Start date: 02/04/18 9:00:00 CDT, Duration: 30 day, Stop date: 03/05/18 9:00:00 CSTNotes: Do not crush or chew. (Same As: Ecotrin) Plavix 75 mg, 1 No Longer tab, Route: Active 2017 [facility] PO, Drug form: TAB, Daily, Dosing Weight 96.818, kg, Start date: 02/04/18 9:00:00 CDT, Duration: 30 day, Stop date: 03/05/18 9:00:00 CSTNotes: (Same As: Plavix) Saline Flush 10 ml, No Longer 0.9% Route: IVP, Active 2017 [facility] Drug Form: INJ, Dosing Weight 96.818, kg, Q12H, Start date: 02/04/18 9:00:00 CDT, Duration: 30 day, Stop date: 03/05/18 21:00:00 CSTNotes: (Same as: BD Posiflush) Zyprexa 10 mg, 1 No Longer tab, Route: Active 2017 [facility] PO, Drug form: TAB, Daily, Dosing Weight 96.818, kg, Start date: 02/04/18 9:00:00 CDT, Duration: 30 day, Stop date: 03/05/18 9:00:00 CSTNotes: (Same as: ZyPREXA ) Lisinopril 40 mg, 2 No Longer tab, Route: Active 2017 [facility] PO, Drug form: TAB, Daily, Dosing Weight 96.818, kg, Start date: 02/04/18 9:00:00 CDT, Duration: 30 day, Stop date: 03/05/18 9:00:00 CSTNotes: (Same as: Prinivil, Zestril) 24 HR 25 mg, 1 No Longer Metoprolol tab, Route: Active 2017 [facility] Tartrate 25 MG PO, Drug Extended form: ERTAB, Release Tablet Daily, Start [Toprol] date: 02/04/18 9:00:00 CDT, Duration: 30 day, Stop date: 03/05/18 9:00:00 CSTNotes: (Same as: Toprol XL) Do Not Crush Tresiba Tresiba Inactive FlexTouch [address] [facility] units/mL 100 units/mL subcutaneous subcutaneous solution solution, 40 unit, Route: SUB-Q, Daily, 02/04/18 9:00:00 CDT, Duration: 30 day, Stop date: 03/05/18 9:00:00 [employer] Morphine 2 mg, 1 mL, No Longer Route: IVP, Active 2017 [facility] Drug form: INJ, Q2H, Dosing Weight 95.909, kg, PRN Chest Pain, Start date: 02/04/18 8:19:00 CDT, Duration: 30 day, Stop date: 03/06/18 8:18:00 CSTNotes: (Same as:MORPhine Sulfate) NovoLOG FlexPen NovoLOG Inactive 100 units/mL FlexPen [address] [facility] subcutaneous units/mL solution subcutaneous solution, 30 unit, Route: SUB-Q, TID-Before Meals, 02/04/18 7:30:00 CDT, Duration: 30 day, Stop date: 03/05/18 16:30:00 [employer] Humalog 30 unit, 0.3 No Longer mL, Route: Active 2017 [facility] SUB-Q, Drug form: SOLN, TID-Before Meals, Start date: 02/04/18 7:30:00 CDT, Duration: 30 day, Stop date: 03/05/18 16:30:00 CSTNotes: (Same as: Humalog ) Roll in palms of hands gently; Do not shake `vigorously. "Single Patient Use Only " WASTE: F/P - Black; E - [employer] Trash Bin Stable for 28 days at room temperature. Expires in days from __Date Imdur 120 mg, 4 No Longer tab, Route: Active 2017 [facility] PO, Drug form: ERTAB, QAM, Dosing Weight 96.818, kg, Start date: 02/04/18 6:30:00 CDT, Duration: 30 day, Stop date: 03/05/18 6:30:00 CSTNotes: (Same as:Imdur) "Do Not Crush" Take on empty stomach/ full glass of water. Do not crush tramadol 50 mg, 1 No Longer hydrochloride tab, Route: Active 2017 [facility] 50 MG Oral PO, Drug Tablet form: TAB, Q6H, Dosing Weight 96.818, kg, PRN Pain Score 1-3, Start date: 02/04/18 4:28:00 CDT, Duration: 30 day, Stop date: 03/06/18 4:27:00 CSTNotes: Not to exceed 400mg/day. (Same As: Ultram) Zofran ODT 4 mg, 1 tab, No Longer Route: PO, 2017 [facility] Drug form: TABDIS, TID, Dosing Weight 96.818, kg, PRN Nausea, Start date: 02/04/18 4:28:00 CDT, Duration: 30 day, Stop date: 03/06/18 4:27:00 CSTNotes: (Same as: Zofran ODT) Nitroglycerin 0.4 mg, 1 No Longer 0.4 MG tab, Route: 2017 [facility] Sublingual SL, Drug Tablet form: TAB, [Nitrostat] Q5Min, Dosing Weight 96.818, kg, PRN Chest Pain, Start date: 02/04/18 4:28:00 CDT, Duration: 30 day, Stop date: 03/06/18 3:27:00 CSTNotes: (Same as:Nitroquic k, Nitrostat) "Do Not Crush" Sublingual tablet Saline Flush 10 ml, No Longer 0.9% Route: IVP, [facility] 2017 [facility] Drug Form: INJ, Dosing Weight 96.818, kg, PRN, PRN Line Flush, Start date: 02/04/18 4:27:00 CDT, Duration: 30 day, Stop date: 03/06/18 3:26:00 CSTNotes: (Same as: BD Posiflush) Nitroglycerin 0.4 mg, 1 No Longer tab, Route: 2017 [facility] SL, Drug form: TAB, Q5Min, Dosing Weight 96.818, kg, PRN Chest Pain, Start date: 02/04/18 4:27:00 CDT, Duration: 3 doses or times, Stop date: Limited # of timesNotes: (Same as:Nitroquic k, Nitrostat) "Do Not Crush" Sublingual tablet Fentanyl 25 Inactive microgram, 2017 [facility] 0.5 mL, Route: IVP, Drug form: INJ, ONCE, Dosing Weight 96.818, kg, Priority: STAT, Start date: 02/03/18 19:31:00 CDT, Stop date: 02/03/18 19:31:00 CDTNotes: (Same as: Sublimaze) Preservative free. Nitroglycerin 0.5 inch, Inactive 0.02 MG/MG Route: TOP, 2017 [facility] Topical Drug Form: Ointment OINT, Dosing Weight 96.818, kg, ONCE, STAT, Start date: 02/03/18 19:31:00 CDT, Stop date: 02/03/18 19:31:00 CDTNotes: 1 gram is approximatel y 1 inch of nitroglyceri n ointment (20 mg NTG per gram) (Same as:Nitro-Bid ) Aspirin 324 mg, 4 Inactive tab, Route: 2017 [facility] PO, Drug form: CHEWTAB, ONCE, Dosing Weight 96.818, kg, Priority: STAT, Start date: 02/03/18 19:29:00 CDT, Stop date: 02/03/18 19:29:00 CDTNotes: Take with food. Saline Flush 10 mL, No Longer 0.9% Route: IVP, Active 2017 [facility] Drug Form: INJ, Dosing Weight 96.818, kg, PRN, PRN Line Flush, Start date: 02/03/18 19:29:00 CDT, Duration: 30 day, Stop date: 03/05/18 18:28:00 CSTNotes: (Same as: BD Posiflush) Acetaminophen 1 tab, PO, No Longer 300 MG / Q6H, PRN Active 2017 [facility] Codeine Pain, X 3 Phosphate 30 MG day, # 12 Oral Tablet tab, 0 [Tylenol with Refill(s) Codeine #3] Ondansetron 4 4 mg=1 tab, No Longer MG PO, TID, PRN Active 2017 [facility] Disintegrating Nausea, Tablet [Zofran] Dissolve tab under tongue, # 6 tab, 0 Refill(s) Ciprofloxacin 500 mg=1 No Longer 500 MG Oral tab, PO, Active 2017 [facility] Tablet [Cipro] Q12H, X 14 day, # 28 tab, 0 Refill(s) Zofran ODT 4 mg, 1 tab, Inactive Route: PO, 2017 [facility] Drug form: TABDIS, ONCE, Dosing Weight 96.818, kg, Priority: STAT, Start date: 01/06/18 17:28:00 CDT, Stop date: 01/06/18 17:28:00 CDTNotes: (Same as: Zofran ODT) Fentanyl 50 Inactive microgram, [address] [facility] mL, Route: IVP, Drug form: INJ, ONCE, Dosing Weight 96.818, kg, Priority: STAT, Start date: 01/06/18 17:28:00 CDT, Stop date: 01/06/18 17:28:00 CDTNotes: (Same as: Sublimaze) Preservative free. Sodium Chloride 1,000 mL, Inactive 0.9% (Bolus) IV 1000 ml/hr, 2017 [facility] Infuse Over: 1 hr, Route: IV, 1,000, Drug form: INJ, ONCE, Priority: STAT, Dosing Weight 96.818 kg, Start date: 01/06/18 17:28:00 CDT, Stop date: 01/06/18 17:28:00 CDT Ceftriaxone 1 gm, Route: Inactive IVP, ONCE, 2017 [facility] Dosing Weight 96.818, kg, Priority: STAT, Start date: 01/06/18 17:07:00 CDT, Stop date: 01/06/18 17:07:00 CDT, ABX Indication: Urinary Tract InfectionNot es: (Same As: Rocephin). Use with 100 mL NS and infuse over 30 min MEDICATION WASTE Product Size: 1000 mg Product Wasted: ___ mg insulin 30 unit, 0.3 Inactive glargine mL, Route: 2017 [facility] SUB-Q, Drug form: SOLN, Bedtime, Start date: 10/15/17 21:00:00 CDT, Duration: 30 day, Stop date: 11/13/17 21:00:00 CDTNotes: (Same as: Lantus) Do not hold insulin without contacting prescriber WASTE: F/P - Black; E - Municipal Trash Bin "single patient use only" Lipitor 80 mg, 2 Inactive tab, Route: 2017 [facility] PO, Drug form: TAB, Bedtime, Dosing Weight 96.818, kg, Start date: 10/15/17 21:00:00 CDT, Duration: 30 day, Stop date: 11/13/17 21:00:00 CDTNotes: (Same as: Lipitor) Levemir FlexPen 30 unit, Inactive Route: 2017 [facility] SUB-Q, Drug form: SOLN, Bedtime, Dosing Weight 96.818, kg, Start date: 10/15/17 21:00:00 CDT, Duration: 30 day, Stop date: 11/13/17 21:00:00 CDT Prozac 40 mg, 4 Inactive cap, Route: 2017 [facility] PO, Drug form: CAP, QPM, Dosing Weight 96.818, kg, Start date: 10/15/17 17:00:00 CDT, Duration: 30 day, Stop date: 11/13/17 17:00:00 CDTNotes: (Same as: Prozac) gabapentin 100 100 mg=1 Active MG Oral Capsule cap, PO, 2017 [facility] TID, # 90 cap, 0 Refill(s), Pharmacy: [id number] 24 HR 25 mg=1 tab, Active Metoprolol PO, Daily, # 2018 [facility] Tartrate 25 MG 30 tab, 0 Extended Refill(s), Release Tablet Pharmacy: [Toprol] [id number] tramadol 50 mg=1 tab, Active hydrochloride PO, Q6H, PRN 2017 [facility] 50 MG Oral Pain Score Tablet 1-3, # 28 tab, 0 Refill(s) Humalog 30 unit, 0.3 Inactive mL, Route: 2017 [facility] SUB-Q, Drug form: SOLN, TID-Before Meals, Start date: 10/15/17 11:30:00 CDT, Duration: 30 day, Stop date: 11/14/17 7:30:00 CDTNotes: (Same as: Humalog ) Roll in palms of hands gently; Do not shake `vigorously. "Single Patient Use Only " WASTE: F/P - Black; E - [employer] Trash Bin Stable for 28 days at room temperature. Expires in days from __Date Insulin, 30 unit, Inactive Aspart, Human Route: 2017 [facility] SUB-Q, TID-Before Meals, Dosing Weight 96.818, kg, Start date: 10/15/17 11:30:00 CDT, Duration: 30 day, Stop date: 11/14/17 7:30:00 CDT 24 HR 50 mg, 1 Inactive Metoprolol tab, Route: 2017 [facility] Tartrate 50 MG PO, Drug Extended form: ERTAB, Release Tablet Daily, [Toprol] Priority: NOW, Start date: 10/15/17 10:31:00 CDT, Duration: 30 day, Stop date: 11/14/17 9:00:00 CDTNotes: (Same as: Toprol XL) May split tab, but do not crush. pregabalin 75 mg, 1 Inactive cap, Route: 2017 [facility] PO, Drug form: CAP, Q12H, Dosing Weight 96.818, kg, Priority: NOW, Start date: 10/15/17 9:52:00 CDT, Duration: 30 day, Stop date: 11/14/17 9:00:00 CDTNotes: (Same as: Lyrica) tramadol 50 mg, 1 Inactive hydrochloride tab, Route: 2017 [facility] 50 MG Oral PO, Drug Tablet form: TAB, Q6H, Dosing Weight 96.818, kg, PRN Pain Score 1-3, Priority: NOW, Start date: 10/15/17 9:52:00 CDT, Duration: 30 day, Stop date: 11/14/17 9:51:00 CDTNotes: Not to exceed 400mg/day. (Same As: Ultram) Dextrose 50% 25 mL, Inactive Syringe Route: IVP, 2017 Dosing Weight 96.818, kg, PRN, PRN Blood Glucose Results, Start date: 10/15/17 9:30:00 CDT, Duration: 30 day, Stop date: 11/14/17 9:29:00 CDT Glucagon 1 mg, Route: Inactive IM, PRN, 2017 [facility] Dosing Weight 96.818, kg, PRN Blood Glucose Results, Start date: 10/15/17 9:30:00 CDT, Duration: 30 day, Stop date: 11/14/17 9:29:00 CDT Furosemide 20 20 mg, 1 Inactive MG Oral Tablet tab, Route: 2017 [facility] [Lasix] PO, Drug form: TAB, Daily, Dosing Weight 96.818, kg, Start date: 10/15/17 9:00:00 CDT, Duration: 30 day, Stop date: 11/13/17 9:00:00 CDTNotes: (Same as: Lasix) May cause GI upset. Give with food or milk. Plavix 75 mg, 1 Inactive tab, Route: 2017 [facility] PO, Drug form: TAB, Daily, Dosing Weight 96.818, kg, Start date: 10/15/17 9:00:00 CDT, Duration: 30 day, Stop date: 11/13/17 9:00:00 CDTNotes: (Same As: Plavix) Zyprexa 10 mg, 1 Inactive tab, Route: 2017 [facility] PO, Drug form: TAB, Daily, Dosing Weight 96.818, kg, Start date: 10/15/17 9:00:00 CDT, Duration: 30 day, Stop date: 11/13/17 9:00:00 CDTNotes: (Same as: ZyPREXA ) Lisinopril 40 mg, 2 Inactive tab, Route: 2017 [facility] PO, Drug form: TAB, Daily, Dosing Weight 96.818, kg, Start date: 10/15/17 9:00:00 CDT, Duration: 30 day, Stop date: 11/13/17 9:00:00 CDTNotes: (Same as: Prinivil, Zestril) Imdur 120 mg, 4 Inactive tab, Route: 2017 [facility] PO, Drug form: ERTAB, QAM, Dosing Weight 96.818, kg, Start date: 10/15/17 9:00:00 CDT, Duration: 30 day, Stop date: 11/13/17 9:00:00 CDTNotes: (Same as:Imdur) "Do Not Crush" Take on empty stomach/ full glass of water. Do not crush Saline Flush 10 ml, Inactive 0.9% Route: IVP, 2017 [facility] Drug Form: INJ, Dosing Weight 96.818, kg, Q12H, Start date: 10/15/17 9:00:00 CDT, Duration: 30 day, Stop date: 11/13/17 21:00:00 CDTNotes: (Same as: BD Posiflush) Aspirin 81 MG 81 mg, 1 Inactive Enteric Coated tab, Route: 2017 [facility] Tablet PO, Drug form: ECTAB, Daily, Dosing Weight 96.818, kg, Start date: 10/15/17 9:00:00 CDT, Duration: 30 day, Stop date: 11/13/17 9:00:00 CDTNotes: Do not crush or chew. (Same As: Ecotrin) Insulin Lispro 3 unit, 0.03 Inactive mL, Route: 2017 [facility] SUB-Q, Drug form: SOLN, Bedtime, Dosing Weight 96.818, kg, PRN Blood Glucose Results, Start date: 10/15/17 8:28:00 CDT, Duration: 30 day, Stop date: 11/14/17 8:27:00 CDTNotes: (Same as: Humalog ) Roll in palms of hands gently; Do not shake `vigorously. "Single Patient Use Only " WASTE: F/P - Black; E - Municipal Trash Bin Stable for 28 days at room temperature. Expires in days from __Date Glucagon 1 mg, Route: Inactive IM, Drug 2017 [facility] form: PDR/INJ, PRN, Dosing Weight 96.818, kg, PRN Blood Glucose Results, Start date: 10/15/17 8:28:00 CDT, Duration: 30 day, Stop date: 11/14/17 8:27:00 CDT Dextrose 50% 12.5 gm, 25 Inactive Syringe mL, Route: 2017 [facility] IVP, Drug Form: INJ, Dosing Weight 96.818, kg, PRN, PRN Blood Glucose Results, Start date: 10/15/17 8:28:00 CDT, Duration: 30 day, Stop date: 11/14/17 8:27:00 CDT Insulin Lispro 15 unit, Inactive Route: 2017 [facility] SUB-Q, TID-Before Meals, Dosing Weight 96.818, kg, PRN Blood Glucose Results, Start date: 10/15/17 8:24:00 CDT, Duration: 30 day, Stop date: 11/14/17 8:23:00 CDT Glucagon 1 mg, Route: Inactive IM, PRN, 2017 [facility] Dosing Weight 96.818, kg, PRN Blood Glucose Results, Start date: 10/15/17 8:24:00 CDT, Duration: 30 day, Stop date: 11/14/17 8:23:00 CDT Dextrose 50% 25 mL, Inactive Syringe Route: IVP, 2017 [facility] Dosing Weight 96.818, kg, PRN, PRN Blood Glucose Results, Start date: 10/15/17 8:24:00 CDT, Duration: 30 day, Stop date: 11/14/17 8:23:00 CDT Tylenol 650 mg, 20.3 Inactive mL, Route: 2017 [facility] PO, Drug form: LIQ, Q6H, Dosing Weight 96.818, kg, PRN Headache 4-6, Start date: 10/15/17 8:15:00 CDT, Duration: 30 day, Stop date: 11/14/17 8:14:00 CDTNotes: Max acetaminophe a=8084lj/day (4 gm/day). (Same as: Tylenol) Saline Flush 10 ml, No Longer 0.9% Route: IVP, Active 2017 [facility] Drug Form: INJ, Dosing Weight 96.818, kg, PRN, PRN Line Flush, Start date: 10/14/17 22:55:00 CDT, Duration: 30 day, Stop date: 11/13/17 22:54:00 CDTNotes: (Same as: BD Posiflush) Nitroglycerin 0.4 mg, 1 No Longer tab, Route: Active 2017 [facility] SL, Drug form: TAB, Q5Min, Dosing Weight 96.818, kg, PRN Chest Pain, Start date: 10/14/17 22:55:00 CDT, Duration: 3 doses or times, Stop date: Limited # of timesNotes: (Same as:Nitroquic k, Nitrostat) "Do Not Crush" Sublingual tablet 3 ML insulin 40 unit, Active degludec 100 SUB-Q, 2017 UNT/ML Pen Daily, 0 Injector Refill(s) [Tresiba] lisinopril 40 40 mg=1 tab, Active mg oral tablet PO, Daily, 0 2017 Refill(s) pneumococcal 0.5 mL, Inactive capsular Route: IM, 2017 [facility] polysaccharide ONCALL, type 1 vaccine Start date: / pneumococcal 10/14/17 capsular 21:08:43 polysaccharide CDT, Stop type 10A date: vaccine / 11/13/17 pneumococcal 21:03:43 CDT capsular polysaccharide type 11A vaccine / pneumococcal capsular polysaccharide type 12F vaccine / pneumococcal capsular polysacchar Hydralazine 20 mg, 1 mL, No Longer Route: IVP, Active 2017 [facility] Drug form: INJ, Q4H, Dosing Weight 96.818, kg, PRN Hypertension , Start date: 10/14/17 18:58:00 CDT, Duration: 30 day, Stop date: 11/13/17 18:57:00 CDT, sbp> 170Notes: (Same as: Apresoline) Push over 5 minutes Aspirin 325 mg, 1 Inactive tab, Route: 2017 [facility] PO, Drug form: ECTAB, ONCE, Dosing Weight 96.818, kg, Priority: STAT, Start date: 10/14/17 17:42:00 CDT, Stop date: 10/14/17 17:42:00 CDTNotes: (Do Not Crush) Do not crush or chew. Nitroglycerin 0.5 inch, Inactive 0.02 MG/MG Route: TOP, 2017 [facility] Topical Drug Form: Ointment OINT, Dosing Weight 96.818, kg, ONCE, STAT, Start date: 10/14/17 17:41:00 CDT, Stop date: 10/14/17 17:41:00 CDTNotes: 1 gram is approximatel y 1 inch of nitroglyceri n ointment (20 mg NTG per gram) (Same as:Nitro-Bid ) Labetalol 10 mg, 2 mL, Inactive Route: IV, 2017 [facility] Drug form: INJ, ONCE, Dosing Weight 96.818, kg, Start date: 10/14/17 17:39:00 CDT, Stop date: 10/14/17 17:39:00 CDTNotes: (Same as: Normodyne, Trandate) Push over 2 minutes Give bolus over 2-3 minutes. Fentanyl 25 Inactive microgram, 2017 [facility] 0.5 mL, Route: IVP, Drug form: INJ, ONCE, Dosing Weight 96.818, kg, Priority: STAT, Start date: 10/14/17 15:25:00 CDT, Stop date: 10/14/17 15:25:00 CDTNotes: (Same as: Sublimaze) Preservative free. Insulin regular 10 unit, Inactive Route: IVP, 2017 [facility] ONCE, Dosing Weight 96.818, kg, Priority: STAT, Start date: 10/14/17 13:55:00 CDT, Stop date: 10/14/17 13:55:00 CDT Tramadol 50 mg, Inactive Route: PO, 2017 [facility] Drug form: TAB, ONCE, Dosing Weight 96.818, kg, > 50 kg, Priority: STAT, Start date: 10/14/17 13:54:00 CDT, Stop date: 10/14/17 13:54:00 CDT Sodium Chloride 1,000 mL, Inactive 0.9% (Bolus) IV Infuse Over: 2017 [facility] 1 hr, Route: IV, ONCE, Priority: STAT, Dosing Weight 96.818 kg, Start date: 10/14/17 13:51:00 CDT, Stop date: 10/14/17 13:51:00 CDT gabapentin 300 mg, 1 No Longer [place] cap, Route: Active 2018 Medical PO, Drug Center form: CAP, Q8H, Dosing Weight 105.009, kg, Start date: 09/23/17 16:00:00 CDT, Duration: 30 day, Stop date: 10/23/17 8:00:00 CDTNotes: (Same as: Neurontin) Insulin regular 6 unit, 0.06 Inactive 09/22[facility] mL, Route: 2018 Medical SUB-Q, Drug Center form: SOLN, TID-Before Meals, Dosing Weight 105.009, kg, PRN Blood Glucose Results, Start date: 09/22/17 4:41:00 CDT, Duration: 30 day, Stop date: 10/22/17 4:40:00 CDTNotes: (Same as: Humulin R) Roll in palms of hands gently; Do not shake vigorously. "single patient use only" (Restricted to patients requiring a dose > 60 units) WASTE: F/P - Black; E - Municipal Trash Bin Stable for 28 days at room temperature Expires in days from __Date Dextrose 50% 12.5 gm, 25 Inactive 09/22[facility] Syringe mL, Route: [address] [place] [address] IVP, Drug Center Form: INJ, Dosing Weight 105.009, kg, PRN, PRN Blood Glucose Results, Start date: 09/22/17 4:41:00 CDT, Duration: 30 day, Stop date: 10/22/17 4:40:00 CDT Glucagon 1 mg, Route: Inactive 09/22[facility] IM, Drug 2017 Medical form: Center PDR/INJ, PRN, Dosing Weight 105.009, kg, PRN Blood Glucose Results, Start date: 09/22/17 4:41:00 CDT, Duration: 30 day, Stop date: 10/22/17 4:40:00 CDT insulin, 15 unit, Inactive 09/22[facility] isophane 0.15 mL, 2018 Medical Route: [place] SUB-Q, Drug form: INJ, Q8H, Dosing Weight 105.009, kg, Start date: 09/22/17 0:00:00 CDT, Duration: 30 day, Stop date: 10/21/17 16:00:00 CDTNotes: Roll in palms of hands gently; Do not shake vigorously. (Same as: Humulin N) Do not hold insulin without contacting prescriber WASTE: F/P - Black; E - Municipal Trash Bin Stable for 28 days at room temperature Expires in days from __Date Lovenox 30 mg, 0.3 No Longer [place] mL, Route: Active 2017 Medical SUB-Q, Drug Center form: INJ, [id number], Dosing Weight 105.009, kg, Start date: 09/21/17 22:00:00 CDT, Duration: 30 day, Stop date: 10/21/17 12:00:00 CDTNotes: (Same as: Lovenox) remove patch 1 patch, No Longer [facility] Route: TOP, Active 2017 Medical Bedtime, Center Drug form: ERFILM, Start date: 09/21/17 21:00:00 CDT, Duration: 30 day, Stop date: 10/20/17 21:00:00 CDTNotes: Remove patch 12 hours after application each day. Lipitor 80 mg, 1 No Longer [facility] tab, Route: Active 2017 Medical PO, Drug Center form: TAB, Bedtime, Dosing Weight 105.009, kg, Start date: 09/21/17 21:00:00 CDT, Duration: 30 day, Stop date: 10/20/17 21:00:00 CDTNotes: Same as Lipitor insulin, 10 unit, Inactive [place] isophane Route: 2017 Medical SUB-Q, Q12H, Center Dosing Weight 105.009, kg, Start date: 09/21/17 21:00:00 CDT, Duration: 30 day, Stop date: 10/21/17 9:00:00 CDT celecoxib 200 mg, 1 No Longer [facility] cap, Route: Active 2017 Medical PO, Drug Center form: CAP, Q12H, Dosing Weight 105.009, kg, For patients LESS than 75 years old. Hold in all patients if CrCl Notes: NSAID. Please check indication. Not for seizure. (Same As: CeleBREX) Prozac 40 mg, 2 No Longer [place] cap, Route: Active 2017 Medical PO, Drug Center form: CAP, QPM, Dosing Weight 105.009, kg, Start date: 09/21/17 17:00:00 CDT, Duration: 30 day, Stop date: 10/20/17 17:00:00 CDTNotes: (Same as: Prozac, Sarafem) Lidocaine 1 patch, No Longer [place] Hydrochloride Route: TOP, Active 2017 Medical 0.05 MG/MG Q24H, Drug Center Transdermal form: FILM, Patch Start date: [Lidoderm] 09/21/17 11:00:00 CDT, Duration: 30 day, Stop date: 10/20/17 11:00:00 CDTNotes: Apply only once for up to 12 hours in a 24-hour period (12 hours on and 12 hours off). (Same as: Lidoderm) "Remove old patch before application of new patch" lansoprazole 30 mg, 10 No Longer [place] mL, Route: Active 2018 Medical NG, Drug Center form: SUSP, Before Breakfast, Dosing Weight 105.009, kg, Start date: 09/21/17 10:30:00 CDT, Duration: 30 day, Stop date: 10/21/17 7:30:00 CDTNotes: Take 1 hour before or 2 hours after meal; Expires in 14 days. Shake well before use. (Same as:Prevacid) Compounded Product - formulation not commercially available Methocarbamol 1,000 mg, 2 No Longer [place] tab, Route: Active 2018 Medical PO, Drug Center form: TAB, Q8H, Dosing Weight 105.009, kg, PRN Muscle Spasms, Start date: 09/21/17 10:02:00 CDT, Duration: 30 day, Stop date: 10/21/17 10:01:00 CDTNotes: (Same as:Robaxin) Acetaminophen 1,000 mg, 2 No Longer [facility] tab, Route: Active 2018 Medical PO, Drug Center form: TAB, Q6H, Dosing Weight 105.009, kg, PRN Pain Score 1-5, Start date: 09/21/17 10:02:00 CDT, Duration: 30 day, Stop date: 10/21/17 10:01:00 CDTNotes: Max acetaminophe n 4000 mg/day (4 gm/day). (Same as: Tylenol Extra Strength) Ketorolac 30 mg, Inactive [place] Route: IVP, 2018 Medical ONCE, Dosing Center Weight 105.009, kg, Start date: 09/21/17 10:02:00 CDT, Stop date: 09/21/17 10:02:00 CDT Tramadol 100 mg, 2 No Longer [place] tab, Route: Active 2018 Medical PO, Drug Center form: TAB, Q6H, Dosing Weight 105.009, kg, Priority: NOW, Start date: 09/21/17 10:01:00 CDT, Duration: 30 day, Stop date: 10/21/17 6:00:00 CDTNotes: Not to exceed 400mg/day. (Same As: Ultram) Zyprexa 10 mg, 2 No Longer [facility] tab, Route: Active 2017 Medical PO, Drug Center form: TAB, Daily, Dosing Weight 105.009, kg, Start date: 09/21/17 9:00:00 CDT, Duration: 30 day, Stop date: 10/20/17 9:00:00 CDTNotes: (Same as: ZyPREXA) 24 HR 25 mg, 1 No Longer [place] Metoprolol tab, Route: Active 2017 Medical Tartrate 25 MG PO, Drug Center Extended form: ERTAB, Release Tablet Daily, Start [Toprol] date: 09/21/17 9:00:00 CDT, Duration: 30 day, Stop date: 10/20/17 9:00:00 CDTNotes: (Same as: Toprol XL) Do Not Crush Gemfibrozil 600 mg, 1 No Longer [facility] tab, Route: Active 2018 Medical PO, Drug Center form: TAB, BID, Dosing Weight 105.009, kg, Start date: 09/21/17 9:00:00 CDT, Duration: 30 day, Stop date: 10/20/17 17:00:00 CDTNotes: (Same as: Lopid) Saline Flush 10 ml, No Longer [place] 0.9% Route: IVP, Active 2017 Medical Drug Form: Center INJ, Dosing Weight 95.909, kg, Q12H, Start date: 09/21/17 9:00:00 CDT, Duration: 30 day, Stop date: 10/20/17 21:00:00 CDTNotes: Same as: BD Posiflush Sterile sennosides, HALFWAY 8.6 mg, 1 No Longer [place] tab, Route: Active 2017 Medical PO, Drug Center Form: TAB, Dosing Weight 95.909, kg, Q12H, Start date: 09/21/17 9:00:00 CDT, Duration: 30 day, Stop date: 10/20/17 21:00:00 CDTNotes: (Same as: Senokot) Docusate 100 mg, 1 No Longer [place] cap, Route: Active 2017 Medical PO, Drug Center form: CAP, Q12H, Dosing Weight 95.909, kg, Start date: 09/21/17 9:00:00 CDT, Duration: 30 day, Stop date: 10/20/17 21:00:00 CDTNotes: (Same as: Colace) (Do Not Crush) POLYETHYLENE 17 gm, 1 No Longer [facility] GLYCOL 3350 pkt, Route: Active 2017 Medical PO, Drug Center form: PWDR, Daily, Dosing Weight 95.909, kg, Start date: 09/21/17 9:00:00 CDT, Duration: 30 day, Stop date: 10/20/17 9:00:00 CDTNotes: Dissolve in 8 oz of water or juice. (Same as: Miralax) Potassium 20 mEq, 15 No Longer [place] Chloride mL, Route: Active 2017 Medical [place], Drug Center form: LIQ, PRN, Dosing Weight 105.009, kg, PRN Abnormal Lab Result, Start date: 09/21/17 5:41:00 CDT, Duration: 30 day, Stop date: 10/21/17 5:40:00 CDT, FOR ICU USE ONLYNotes: (Same as: Potassium Chloride) Potassium 10 mEq, 50 Inactive [place] Chloride mL, Route: 2018 Medical IVPB, Drug Center form: INJ, Q1H, Dosing Weight 105.009, kg, Total Dose=20 meq, Start date: 09/21/17 3:00:00 CDT, Duration: 2 doses or times, Stop date: 09/21/17 4:00:00 CDT, Periphera l LineNotes : (Same as: KCL) Infuse over 2 hours. potassium 30 mmol, 10 No Longer [place] phosphate mL, Route: Active 2018 Medical IVPB, PRN, Center Dosing Weight 105.009, kg, PRN Abnormal Lab Result, Start date: 09/21/17 2:48:00 CDT, Duration: 30 day, Stop date: 10/21/17 2:47:00 CDT, FOR ICU USE ONLYNotes: (Same as: K Phosphate.) 1 mMol phoshate has 1.47 mEq potassium Infuse over 4 hours potassium 2 pkt, No Longer [place] phosphate-sodiu Route: PO, Active 2017 Medical m phosphate 250 Drug Form: Center mg-280 mg-160 PDR/REC, mg oral powder Dosing for Weight reconstitution 105.009, kg, PRN, PRN Abnormal Lab Result, FOR ICU USE ONLY, Start date: 09/21/17 2:48:00 CDT, Duration: 30 day, Stop date: 10/21/17 2:47:00 CDTNotes: (Same as: Phos-NaK) Each 1.5 gm pkt has 250mg phosphorous. Mix w/2.5oz water and stir. Magnesium Oxide 800 mg, 2 No Longer [place] tab, Route: Active 2018 Medical PO, Drug Center form: TAB, PRN, Dosing Weight 105.009, kg, PRN Abnormal Lab Result, FOR ICU USE ONLY, Start date: 09/21/17 2:48:00 CDT, Duration: 30 day, Stop date: 10/21/17 2:47:00 CDTNotes: (Same as: Mag-Ox 400) Magnesium oxide [id number] elemental magnesium Dose=____mg magnesium oxide (___mg elemental magnesium) Magnesium 2 gm, 50 mL, No Longer [place] Sulfate Route: IVPB, Active 2018 Medical Drug form: Center INJ, PRN, Dosing Weight 105.009, kg, PRN Abnormal Lab Result, Start date: 09/21/17 2:48:00 CDT, Duration: 30 day, Stop date: 10/21/17 2:47:00 CDT, FOR ICU USE ONLYNotes: WASTE: F/P - Sink; E - Municipal Trash Bin Calcium 500 mg, 1 No Longer [place] Carbonate 500 tab, Route: Active 2018 Medical MG Chewable PO, Drug Center Tablet form: CHEWTAB, PRN, Dosing Weight 105.009, kg, PRN Abnormal Lab Result, FOR ICU USE ONLY, Start date: 09/21/17 2:48:00 CDT, Duration: 30 day, Stop date: 10/21/17 2:47:00 CDTNotes: (Same As: Tums) Calcium Carbonate 500 tw=209 mg elemental calcium Dose= mg calcium carbonate ( mg elemental calcium) Calcium 1 gm, 10 mL, No Longer [place] Gluconate Route: IVPB, Active 2018 Medical PRN, Dosing Center Weight 105.009, kg, PRN Abnormal Lab Result, Start date: 09/21/17 2:48:00 CDT, Duration: 30 day, Stop date: 10/21/17 2:47:00 CDT, FOR ICU USE ONLYNotes: WASTE: F/P - Sink; E - Municipal Trash Bin sodium 30 mmol, 10 No Longer [place] phosphate mL, Route: Active 2017 Medical IVPB, PRN, Center Dosing Weight 105.009, kg, PRN Abnormal Lab Result, Start date: 09/21/17 2:48:00 CDT, Duration: 30 day, Stop date: 10/21/17 2:47:00 CDT, FOR ICU USE ONLY NS 1,000 mL 1,000 mL, No Longer [place] Rate: 50 Active 2018 Medical ml/hr, Center Infuse over: 20 hr, Route: IV, Dosing Weight 105.009 kg, Total Volume: 1,000, Start date: 09/21/17 0:27:00 CDT, Duration: 30 day, Stop date: 10/21/17 0:26:00 CDT, 2.23, m2 Dextrose 50% 25 gm, 50 No Longer [place] Syringe mL, Route: Active 2018 Medical IVP, Drug Center Form: INJ, Dosing Weight 105.009, kg, PRN, PRN Blood Glucose Results, Start date: 09/20/17 22:41:00 CDT, Duration: 30 day, Stop date: 10/20/17 22:40:00 CDT Insulin regular 99 mL, Rate: No Longer [place] 100 unit + Start Active 2017 Medical Sodium Chloride Insulin Drip Center 0.9% (titrate) Per ICU 99 mL Protocol, Dosing Weight 105.009, kg, Route: IVPB, Total Volume: 100, Start Date: 09/20/17 22:41:00 CDT, Duration: 30 day, Stop date: 10/20/17 22:40:00 CDT, Replace Every: 24 hrNotes: (Same as: Humulin R and NovoLIN R) WASTE: F/P - Black; E - Municipal Trash Bin (Do not shake) Labetalol 10 mg, 2 mL, No Longer [place] Route: IVP, Active 2017 Medical Drug form: Center INJ, Q15Min, Dosing Weight 105.009, kg, PRN Hypertension , Start date: 09/20/17 22:15:00 CDT, Duration: 3 doses or times, Stop date: Limited # of times Hydralazine 20 mg, 1 mL, No Longer [place] Route: IVP, Active 2017 Medical Drug form: Center INJ, Q4H, Dosing Weight 105.009, kg, PRN Hypertension , Start date: 09/20/17 22:15:00 CDT, Duration: 30 day, Stop date: 10/20/17 22:14:00 CDTNotes: (Same as: Apresoline) Push over 5 minutes Dextrose 50% 12.5 gm, 25 Inactive [place] Syringe mL, Route: 2018 Medical IVP, Drug Center Form: INJ, Dosing Weight 95.909, kg, PRN, PRN Abnormal Lab Result, Start date: 09/20/17 21:37:00 CDT, Duration: 30 day, Stop date: 10/20/17 21:36:00 CDT Regular 3 unit, 0.03 Inactive [place] Insulin, Human mL, Route: 2018 Medical 100 UNT/ML SUB-Q, Drug Center Injectable form: SOLN, Solution PRN, Dosing Weight 95.909, kg, PRN Abnormal Lab Result, Start date: 09/20/17 21:37:00 CDT, Duration: 30 day, Stop date: 10/20/17 21:36:00 CDTNotes: (Same as: Humulin R) Roll in palms of hands gently; Do not shake vigorously. "single patient use only" (Restricted to patients requiring a dose > 60 units) WASTE: F/P - Black; E - Municipal Trash Bin Stable for 28 days at room temperature Expires in days from __Date Saline Flush 10 ml, No Longer [place] 0.9% Route: IVP, Active 2018 Medical Drug Form: Center INJ, Dosing Weight 95.909, kg, PRN, PRN Line Flush, Start date: 09/20/17 21:37:00 CDT, Duration: 30 day, Stop date: 10/20/17 21:36:00 CDTNotes: Same as: BD Posiflush Sterile Acetaminophen 1 tab, No Longer [place] 325 MG / Route: PO, Active 2018 Medical Hydrocodone Drug Form: [place] Bitartrate 10 TAB, Dosing MG Oral Tablet Weight 95.909, kg, Q4H, PRN Pain Score 4-6, Start date: 09/20/17 21:37:00 CDT, Duration: 30 day, Stop date: 10/20/17 21:36:00 CDTNotes: Do not exceed 4gm/day of acetaminophe n. (Same as: [place] 325/10) Bisacodyl 10 mg, 1 No Longer [place] supp, Route: Active 2018 Medical [place], Drug Center form: SUPP, Daily, Dosing Weight 95.909, kg, PRN Constipation , Start date: 09/20/17 21:37:00 CDT, Duration: 30 day, Stop date: 10/20/17 21:36:00 CDTNotes: (Same As: Dulcolax, [place]-Lax) Ondansetron 4 mg, 2 mL, No Longer [place] Route: IVP, Active 2018 Medical Drug form: [place] INJ, Q8H, Dosing Weight 95.909, kg, PRN Nausea & Vomiting, Start date: 09/20/17 21:37:00 CDT, Duration: 30 day, Stop date: 10/20/17 21:36:00 CDTNotes: (Same as: Zofran) MEDICATION WASTE Product Size: 4 mg Product Wasted: ___ mg Morphine 2 mg, 0.5 No Longer [place] mL, Route: Active 2017 [facility] IVP, Drug Center form: SOLN, Q1H, Dosing Weight 95.909, kg, PRN Pain Score 7-10, Start date: 09/20/17 21:37:00 CDT, Duration: 30 day, Stop date: 10/20/17 21:36:00 CDTNotes: (Same as:MORPhine Sulfate) Dilaudid 1 mg, 1 mL, Inactive Route: IVP, [address] [place] [address] Drug form: SOLN, ONCE, Dosing Weight 95.909, kg, Priority: STAT, Start date: 09/20/17 19:00:00 CDT, Stop date: 09/20/17 19:00:00 CDTNotes: (Same as: Dilaudid) NS (Bolus) IV 2,000 mL, Inactive 1,000 ml/hr, 2017 [facility] Infuse Over: 1 hr, Route: IV, ONCE, Priority: STAT, Dosing Weight 95.909 kg, Start date: 09/20/17 18:05:00 CDT, Stop date: 09/20/17 18:05:00 CDT Dextrose 50% 12.5 gm, 25 Inactive Syringe mL, Route: [address] [place] [address] IVP, Drug Form: INJ, Dosing Weight 95.909, kg, PRN, PRN Blood Glucose Results, Start date: 09/20/17 18:01:00 CDT, Duration: 30 day, Stop date: 10/20/17 18:00:00 CDT Insulin regular 99 mL, Rate: Inactive 100 unit + Start 2017 [facility] Sodium Chloride Insulin Drip 0.9% (titrate) Per ICU 99 mL Protocol, Dosing Weight 95.909, kg, Route: IVPB, Total Volume: 100, Start Date: 09/20/17 18:01:00 CDT, Duration: 30 day, Stop date: 10/20/17 18:00:00 CDT, Replace Every: 24 hrNotes: (Same as: Humulin R and NovoLIN R) WASTE: F/P - Black; E - Municipal Trash Bin (Do not shake) Hydralazine 10 mg, 0.5 Inactive mL, Route: 2017 [facility] IV, Drug form: INJ, ONCE, Dosing Weight 95.909, kg, Start date: 09/20/17 17:04:00 CDT, Stop date: 09/20/17 17:04:00 CDTNotes: (Same as: Apresoline) Push over 5 minutes Fentanyl 25 Inactive microgram, 2017 [facility] 0.5 mL, Route: IVP, Drug form: INJ, ONCE, Dosing Weight 95.909, kg, Priority: STAT, Start date: 09/20/17 16:48:00 CDT, Stop date: 09/20/17 16:48:00 CDTNotes: (Same as: Sublimaze) Preservative free. Saline Flush 10 mL, Inactive 0.9% Route: IVP, 2017 [facility] Drug Form: INJ, Dosing Weight 95.909, kg, PRN, PRN Line Flush, Start date: 09/20/17 16:02:00 CDT, Duration: 30 day, Stop date: 10/20/17 16:01:00 CDTNotes: (Same as: BD Posiflush) Lipitor 80 mg, 2 Inactive tab, Route: 2017 [facility] PO, Drug form: TAB, Bedtime, Dosing Weight 80.455, kg, Start date: 08/30/17 21:00:00 CDT, Duration: 30 day, Stop date: 09/28/17 21:00:00 CDTNotes: (Same as: Lipitor) insulin 30 unit, 0.3 Inactive glargine mL, Route: 2017 [facility] SUB-Q, Drug form: SOLN, Bedtime, Start date: 08/30/17 21:00:00 CDT, Duration: 30 day, Stop date: 09/28/17 21:00:00 CDTNotes: (Same as: Lantus) Do not hold insulin without contacting prescriber WASTE: F/P - Black; E - Municipal Trash Bin "single patient use only" Levemir FlexPen 30 unit, No Longer Route: Active 2017 [facility] SUB-Q, Drug form: SOLN, Bedtime, Dosing Weight 80.455, kg, Start date: 08/30/17 21:00:00 CDT, Duration: 30 day, Stop date: 09/28/17 21:00:00 CDT Prozac 40 mg, 4 Inactive cap, Route: 2017 [facility] PO, Drug form: CAP, QPM, Dosing Weight 80.455, kg, Start date: 08/30/17 17:00:00 CDT, Duration: 30 day, Stop date: 09/28/17 17:00:00 CDTNotes: (Same as: Prozac) Hydrochlorothia 1 tab, No Longer zide 25 MG / Route: PO, Active 2017 [facility] Lisinopril 20 Drug Form: MG Oral Tablet TAB, Dosing Weight 80.455, kg, Daily, Start date: 08/30/17 9:00:00 CDT, Duration: 30 day, Stop date: 09/28/17 9:00:00 CDT Gemfibrozil 600 mg, 1 Inactive tab, Route: 2017 [facility] PO, Drug form: TAB, BID, Dosing Weight 80.455, kg, Start date: 08/30/17 9:00:00 CDT, Duration: 30 day, Stop date: 09/28/17 17:00:00 CDTNotes: (Same as: Lopid) Furosemide 20 20 mg, 1 Inactive MG Oral Tablet tab, Route: 2017 [facility] [Lasix] PO, Drug form: TAB, Daily, Dosing Weight 80.455, kg, Start date: 08/30/17 9:00:00 CDT, Duration: 30 day, Stop date: 09/28/17 9:00:00 CDTNotes: (Same as: Lasix) May cause GI upset. Give with food or milk. Plavix 75 mg, 1 Inactive tab, Route: 2017 [facility] PO, Drug form: TAB, Daily, Dosing Weight 80.455, kg, Start date: 08/30/17 9:00:00 CDT, Duration: 30 day, Stop date: 09/28/17 9:00:00 CDTNotes: (Same As: Plavix) Aspirin 81 MG 81 mg, 1 Inactive [place] Coated tab, Route: 2017 [facility] Tablet PO, Drug form: ECTAB, Daily, Dosing Weight 80.455, kg, Start date: 08/30/17 9:00:00 CDT, Duration: 30 day, Stop date: 09/28/17 9:00:00 CDTNotes: Do not crush or chew. (Same As: Ecotrin) hydrochlorothia 25 mg, 2 Inactive zide tab, Route: 2017 [facility] PO, Drug form: TAB, Daily, Start date: 08/30/17 9:00:00 CDT, Duration: 30 day, Stop date: 09/28/17 9:00:00 CDTNotes: (Same as: Hydrodiuril) . Give with food. Zyprexa 10 mg, 1 Inactive tab, Route: 2017 [facility] PO, Drug form: TAB, Daily, Dosing Weight 80.455, kg, Start date: 08/30/17 9:00:00 CDT, Stop date: 09/28/17 9:00:00 CDTNotes: (Same as: ZyPREXA ) 24 HR 25 mg, 1 Inactive Metoprolol tab, Route: 2017 [facility] Tartrate 25 MG PO, Drug Extended form: ERTAB, Release Tablet Daily, Start [Toprol] date: 08/30/17 9:00:00 CDT, Duration: 30 day, Stop date: 09/28/17 9:00:00 CDTNotes: (Same as: Toprol XL) Do Not Crush Metformin 1,000 mg, 2 Inactive hydrochloride tab, Route: 2017 [facility] 1000 MG Oral PO, Drug Tablet form: TAB, BID, Dosing Weight 80.455, kg, Start date: 08/30/17 9:00:00 CDT, Duration: 30 day, Stop date: 09/28/17 17:00:00 CDTNotes: (Same as: Glucophage) Take with meal Imdur 120 mg, 4 Inactive tab, Route: 2017 [facility] PO, Drug form: ERTAB, QAM, Dosing Weight 80.455, kg, Start date: 08/30/17 9:00:00 CDT, Duration: 30 day, Stop date: 09/28/17 9:00:00 CDTNotes: (Same as:Imdur) "Do Not Crush" Take on empty stomach/ full glass of water. Do not crush lisinopril 20 mg, 1 Inactive tab, Route: 2017 [facility] PO, Drug form: TAB, Daily, Start date: 08/30/17 9:00:00 CDT, Duration: 30 day, Stop date: 09/28/17 9:00:00 CDTNotes: (Same as: Prinivil, Zestril) Insulin Lispro 5 unit, 0.05 Inactive mL, Route: 2017 [facility], Drug form: SOLN, TID-Before Meals, Dosing Weight 80.455, kg, Start date: 08/30/17 7:30:00 CDT, Duration: 30 day, Stop date: 09/28/17 16:30:00 CDTNotes: (Same as: Humalog ) Roll in palms of hands gently; Do not shake `vigorously. "Single Patient Use Only " WASTE: F/P - Black; E - Municipal Trash Bin Stable for 28 days at room temperature. Expires in days from __Date NovoLOG FlexPen 30 unit, No Longer Route: Active 2017 [facility], Drug form: SOLN, TID-Before Meals, Dosing Weight 80.455, kg, Start date: 08/30/17 7:30:00 CDT, Duration: 30 day, Stop date: 09/28/17 16:30:00 CDT Humalog 30 unit, 0.3 Inactive mL, Route: 2017 [facility], Drug form: SOLN, TID-Before Meals, Start date: 08/30/17 7:30:00 CDT, Duration: 30 day, Stop date: 09/28/17 16:30:00 CDTNotes: (Same as: Humalog ) Roll in palms of hands gently; Do not shake `vigorously. "Single Patient Use Only " WASTE: F/P - Black; E - Municipal Trash Bin Stable for 28 days at room temperature. Expires in days from __Date Zofran 4 mg, 2 mL, No Longer Route: IVP, 2017 [facility] Drug form: INJ, ONCE, Dosing Weight 100.455, kg, Start date: 08/29/17 21:52:00 CDT, Stop date: 08/29/17 21:52:00 CDTNotes: (Same as: Zofran) MEDICATION WASTE Product Size: 4 mg Product Wasted: ___ mg Morphine 4 mg, 1 mL, No Longer Route: IVP, 2017 [facility] Drug form: SOLN, ONCE, Dosing Weight 80.455, kg, Start date: 08/29/17 21:51:00 CDT, Stop date: 08/29/17 21:51:00 CDTNotes: (Same as:MORPhine Sulfate) Nitroglycerin 0.4 mg, 1 No Longer 0.4 MG tab, Route: 2017 [facility] Sublingual SL, Drug Tablet form: TAB, [Nitrostat] Q5Min, Dosing Weight 80.455, kg, PRN Chest Pain, Start date: 08/29/17 21:39:00 CDT, Duration: 30 day, Stop date: 09/28/17 21:38:00 CDTNotes: (Same as:Nitroquic k, Nitrostat) "Do Not Crush" Sublingual tablet Saline Flush 10 ml, No Longer 0.9% Route: IV, 2017 [facility] Drug Form: INJ, Dosing Weight 80.455, kg, Q12H, Start date: 08/29/17 21:00:00 CDT, Duration: 30 day, Stop date: 09/28/17 9:00:00 CDTNotes: (Same as: BD Posiflush) Please update Please Inactive height, weight, update 2017 [facility] allergies on height, profile weight, allergies on profile, ATTN:KIAN, Drug form: MISC, Route: MISC, Q30Min, 08/29/17 21:00:00 CDT, Duration: 30 day, Stop date: 09/28/17 20:30:00 CDT Insulin Lispro 9 unit, 0.09 No Longer mL, Route: Active 2017 [facility] SUB-Q, Drug form: SOLN, TID-Before Meals, Dosing Weight 80.455, kg, PRN Blood Glucose Results, Start date: 08/29/17 20:51:00 CDT, Duration: 30 day, Stop date: 09/28/17 20:50:00 CDTNotes: (Same as: Humalog ) Roll in palms of hands gently; Do not shake `vigorously. "Single Patient Use Only " WASTE: F/P - Black; E - Municipal Trash Bin Stable for 28 days at room temperature. Expires in days from __Date Dextrose 50% 12.5 gm, 25 No Longer Syringe mL, Route: Active 2017 [facility] IVP, Drug Form: INJ, Dosing Weight 80.455, kg, PRN, PRN Blood Glucose Results, Start date: 08/29/17 20:51:00 CDT, Duration: 30 day, Stop date: 09/28/17 20:50:00 CDT Glucagon 1 mg, Route: No Longer IM, Drug Active 2017 [facility] form: PDR/INJ, PRN, Dosing Weight 80.455, kg, PRN Blood Glucose Results, Start date: 08/29/17 20:51:00 CDT, Duration: 30 day, Stop date: 09/28/17 20:50:00 CDT Saline Flush 10 ml, No Longer 0.9% Route: IVP, Active 2017 [facility] Drug Form: INJ, Dosing Weight 80.455, kg, PRN, PRN Line Flush, Start date: 08/29/17 20:45:00 CDT, Duration: 30 day, Stop date: 09/28/17 20:44:00 CDTNotes: (Same as: BD Posiflush) Nitroglycerin 0.4 mg, Inactive Route: SL, 2017 [facility] Drug form: TAB, Q5Min, Dosing Weight 80.455, kg, PRN Chest Pain, Start date: 08/29/17 20:45:00 CDT, Duration: 3 doses or times, Stop date: Limited # of times metoprolol 25 mg, 1 Inactive tartrate tab, Route: 2017 [facility] PO, Drug form: TAB, ONCE, Dosing Weight 80.455, kg, Priority: STAT, Start date: 08/29/17 19:34:00 CDT, Stop date: 08/29/17 19:34:00 CDTNotes: (Same as: Lopressor) Hydralazine 10 mg, 0.5 Inactive mL, Route: 2017 [facility] IVP, Drug form: INJ, ONCE, Dosing Weight 80.455, kg, Priority: STAT, Start date: 08/29/17 19:33:00 CDT, Stop date: 08/29/17 19:33:00 CDTNotes: (Same as: Apresoline) Push over 5 minutes Aspirin 324 mg, 4 Inactive tab, Route: 2017 [facility] CHEW, Drug form: CHEWTAB, ONCE, Dosing Weight 80.455, kg, Priority: STAT, Start date: 08/29/17 18:24:00 CDT, Stop date: 08/29/17 18:24:00 CDTNotes: Take with food. Saline Flush 10 mL, No Longer 0.9% Route: IVP, Active 2017 [facility] Drug Form: INJ, Dosing Weight 80.455, kg, PRN, PRN Line Flush, Start date: 08/29/17 13:43:00 CDT, Duration: 30 day, Stop date: 09/28/17 13:42:00 CDTNotes: (Same as: BD Posiflush) Clonidine HCl 1 tablet Orally Active 0.1 MG Orally [place] 09/ CL Once a day, 2018 Cardiovascu as needed lar Metoprolol 1 tablet Orally Active 25 MG Orally [place] 07/12/ CL Succinate ER Once a day 2017 Cardiovascu lar Carvedilol 2 tablet Orally Active 25 MG Orally [place] 03/21/ CL once a day 2018 Cardiovascu lar Ranexa 1 tablet Orally Active 1000 mg [place] // CL Orally once a 2017 Cardiovascu day lar Famotidine 20 mg, Inactive Route: IVP, 2016 [facility] ONCE, Dosing Weight 80.455, kg, Priority: STAT, Start date: 08/10/16 10:48:00 CDT, Stop date: 08/10/16 10:48:00 CDT Ondansetron 4 mg, Route: Inactive IVP, ONCE, 2016 [facility] Dosing Weight 80.455, kg, Priority: STAT, Start date: 08/10/16 10:48:00 CDT, Stop date: 08/10/16 10:48:00 CDT GI cocktail 30 mL, Inactive Route: PO, 2016 [facility] Dosing Weight 80.455, kg, ONCE, STAT, Start date: 08/10/16 10:48:00 CDT, Stop date: 08/10/16 10:48:00 CDT Morphine 4 mg, Route: Inactive IVP, ONCE, 2016 [facility] Dosing Weight 80.455, kg, Priority: STAT, Start date: 08/10/16 10:48:00 CDT, Stop date: 08/10/16 10:48:00 CDT Sodium Chloride 1,000 mL, Inactive 0.154 MEQ/ML 2,000 ml/hr, 2016 [facility] Injectable Infuse Over: Solution 30 minutes, Route: IV, ONCE, Priority: STAT, Dosing Weight 80.455 kg, Start date: 08/10/16 10:48:00 CDT, Duration: 1 doses or times, Stop date: 08/10/16 10:48:00 CDT Saline Flush 10 mL, Inactive 0.9% Route: [facility] [facility]: INJ, Dosing Weight 80.455, kg, PRN, PRN Line Flush, Start date: 08/10/16 10:48:00 CDT, Duration: 30 day, Stop date: 09/09/16 10:47:00 CDTNotes: Same as: BD Posiflush Sterile Metoclopramide 10 mg=1 tab, Active 10 MG Oral PO, QID, PRN 2015 [facility] Tablet [Reglan] Nausea & Vomiting, X 10 day, # 40 tab, 0 Refill(s) Acetaminophen 1 cap, PO, Inactive 300 MG / Q4H, PRN PRN 2015 [facility] butalbital 50 Headache, Do MG / Caffeine not exceed 6 40 MG Oral capsules in Capsule 24 hours, X [Fioricet] 10 day, # 20 caplet, 0 Refill(s) Sodium Chloride 1,000 mL, Inactive 0.154 MEQ/ML 1,000 ml/hr, 2015 [facility] Injectable Infuse Over: Solution 1 hr, Route: IV, 1,000, Drug form: INJ, ONCE, Priority: STAT, Dosing Weight 92.727 kg, Start date: 04/22/16 19:08:00 [employer], Duration: 1 doses or times, Stop date: 04/22/16 19:08:00 [employer] Reglan 20 mg, 4 mL, Inactive Route: IVP, 2015 [facility] Drug form: INJ, ONCE, Dosing Weight 92.727, kg, Priority: STAT, Start date: 04/22/16 19:08:00 [employer], Stop date: 04/22/16 19:08:00 CSTNotes: (Same as: Reglan) Benadryl 25 mg, 0.5 Inactive mL, Route: 2015 [facility] IVP, Drug form: INJ, ONCE, Dosing Weight 92.727, kg, Priority: STAT, Start date: 04/22/16 19:08:00 [employer], Stop date: 04/22/16 19:08:00 CSTNotes: (Same as: Benadryl) Sodium Chloride 500 mL, 500 Inactive 0.154 MEQ/ML ml/hr, 2015 [facility] Injectable Infuse Over: Solution 1 hr, Route: IV, 500, Drug form: INJ, ONCE, Priority: STAT, Dosing Weight 100 kg, Start date: 10/16/15 16:21:00 CDT, Duration: 1 doses or times, Stop date: 10/16/15 16:21:00 CDT Insulin regular 4 unit, 0.04 Inactive mL, Route: 2015 [facility] SUB-Q, Drug form: INJ, ONCE, Dosing Weight 100, kg, Priority: STAT, Start date: 10/16/15 16:15:00 CDT, Stop date: 10/16/15 16:15:00 CDTNotes: (Same as: Humulin R and NovoLIN R) WASTE: F/P - Black; E - Municipal Trash Bin (Do not shake) Acetaminophen 1 tab, Inactive 325 MG / Route: PO, 2015 [facility] Hydrocodone Drug Form: Bitartrate 7.5 TAB, Dosing MG Oral Tablet Weight 100, [[place] 7.5/325] kg, ONCE, STAT, Start date: 10/16/15 16:01:00 CDT, Stop date: 10/16/15 16:01:00 CDTNotes: Same as [place] 325-7.5mg Do not exceed 4gm/day of acetaminophe n. Ketorolac 15 mg, Inactive Route: IVP, 2015 [facility] Drug form: INJ, ONCE, Dosing Weight 100, kg, Priority: STAT, Start date: 10/16/15 14:07:00 CDT, Stop date: 10/16/15 14:07:00 CDT Morphine 2 mg, Route: Inactive IVP, Drug 2015 [facility] form: INJ, ONCE, Dosing Weight 100, kg, Priority: STAT, Start date: 10/16/15 13:05:00 CDT, Stop date: 10/16/15 13:05:00 CDT Sodium Chloride 1,000 mL, Inactive 0.154 MEQ/ML 1,000 ml/hr, 2015 [facility] Injectable Infuse Over: Solution 1 hr, Route: IV, 1,000, Drug form: INJ, ONCE, Priority: STAT, Dosing Weight 100 kg, Start date: 10/16/15 12:07:00 CDT, Duration: 1 doses or times, Stop date: 10/16/15 12:07:00 CDT Insulin regular 10 unit, Inactive Route: IVP, 2015 [facility] ONCE, Dosing Weight 100, kg, Priority: STAT, Start date: 10/16/15 10:41:00 CDT, Stop date: 10/16/15 10:41:00 CDT Dextrose 50% 12.5 gm, 25 Inactive Syringe mL, Route: 2015 [facility] IVP, Drug Form: INJ, Dosing Weight 100, kg, PRN, PRN Blood Glucose Results, Start date: 10/16/15 10:40:00 CDT, Duration: 30 day, Stop date: 11/15/15 10:39:00 CDT Glucagon 1 mg, Route: Inactive IM, Drug 2015 [facility] form: PDR/INJ, PRN, Dosing Weight 100, kg, PRN Blood Glucose Results, Start date: 10/16/15 10:40:00 CDT, Duration: 30 day, Stop date: 11/15/15 10:39:00 CDT Saline Flush 10 mL, Inactive 0.9% Route: IVP, 2015 [facility] Drug Form: INJ, Dosing Weight 100, kg, PRN, PRN Line Flush, Start date: 10/16/15 10:40:00 CDT, Duration: 30 day, Stop date: 11/15/15 10:39:00 CDTNotes: (Same as: BD Posiflush) Sodium Chloride 1,000 mL, Inactive 0.154 MEQ/ML 2,000 ml/hr, 2015 Injectable Infuse Over: Solution 30 MINS, Route: IV, ONCE, Priority: STAT, Dosing Weight 100 kg, Start date: 10/16/15 10:40:00 CDT, Duration: 1 doses or times, Stop date: 10/16/15 10:40:00 CDT Zyprexa 10 mg, 1 No Longer tab, Route: Active 2015 [facility] PO, Drug form: TAB, Daily, Dosing Weight 100, kg, Start date: 08/18/15 9:00:00 CDT, Duration: 30 day, Stop date: 09/16/15 9:00:00 CDTNotes: (Same as: ZyPREXA ) Prinivil 20 mg, 1 No Longer tab, Route: Active 2015 [facility] PO, Drug form: TAB, Daily, Start date: 08/18/15 9:00:00 CDT, Duration: 30 day, Stop date: 09/16/15 9:00:00 CDTNotes: (Same as: Prinivil, Zestril) hydrochlorothia 25 mg, 1 No Longer zide 25 mg oral tab, Route: Active 2015 [facility] tablet PO, Drug form: TAB, Daily, Start date: 08/18/15 9:00:00 CDT, Duration: 30 day, Stop date: 09/16/15 9:00:00 CDTNotes: (Same as: Hydrodiuril) With food. Imdur 120 mg, 2 No Longer tab, Route: Active 2015 [facility] PO, Drug form: ERTAB, QAM, Dosing Weight 100, kg, Start date: 08/18/15 9:00:00 CDT, Duration: 30 day, Stop date: 09/16/15 9:00:00 CDTNotes: (Same as:Imdur) "Do Not Crush" Take on empty stomach/ full glass of water. Do not crush Hydrochlorothia 1 tab, No Longer zide 25 MG / Route: PO, Active 2015 [facility] Lisinopril 20 Drug Form: MG Oral Tablet TAB, Dosing Weight 100, kg, Daily, Start date: 08/18/15 9:00:00 CDT, Duration: 30 day, Stop date: 09/16/15 9:00:00 CDT Furosemide 20 20 mg, 1 No Longer MG Oral Tablet tab, Route: Active 2015 [facility] [Lasix] PO, Drug form: TAB, Daily, Dosing Weight 100, kg, Start date: 08/18/15 9:00:00 CDT, Duration: 30 day, Stop date: 09/16/15 9:00:00 CDTNotes: (Same as: Lasix) May cause GI upset. Give with food or milk. Plavix 75 mg, 1 No Longer tab, Route: Active 2015 [facility] PO, Drug form: TAB, Daily, Dosing Weight 100, kg, Start date: 08/18/15 9:00:00 CDT, Duration: 30 day, Stop date: 09/16/15 9:00:00 CDTNotes: (Same As: Plavix) Levemir FlexPen 30 unit, 0.3 Inactive mL, Route: 2015 [facility] SUB-Q, Drug form: INJ, Bedtime, Dosing Weight 100, kg, Start date: 08/17/15 21:00:00 CDT, Duration: 30 day, Stop date: 09/15/15 21:00:00 CDTNotes: Same as Levemir Do not hold insulin without contacting prescriber WASTE: F/P - Black; E - Municipal Trash Bin "single patient use only" Lipitor 80 mg, 2 Inactive tab, Route: 2015 [facility] PO, Drug form: TAB, Bedtime, Dosing Weight 100, kg, Start date: 08/17/15 21:00:00 CDT, Duration: 30 day, Stop date: 09/15/15 21:00:00 CDTNotes: (Same as: Lipitor) 24 HR 25 mg, 1 Inactive Metoprolol tab, Route: 2015 [facility] Tartrate 25 MG PO, Drug Extended form: ERTAB, Release Tablet Daily, Start [Toprol] date: 08/17/15 17:00:00 CDT, Duration: 30 day, Stop date: 09/15/15 17:00:00 CDTNotes: (Same as: Toprol XL) Do Not Crush Metformin 1,000 mg, 2 Inactive hydrochloride tab, Route: 2015 1000 MG Oral PO, Drug Tablet form: TAB, BID-Meals, Dosing Weight 100, kg, Start date: 08/17/15 17:00:00 CDT, Duration: 30 day, Stop date: 09/16/15 8:00:00 CDTNotes: (Same as: Glucophage) Take with meal Gemfibrozil 600 mg, 1 Inactive tab, Route: 2015 [facility] PO, Drug form: TAB, BID, Dosing Weight 100, kg, Start date: 08/17/15 17:00:00 CDT, Duration: 30 day, Stop date: 09/16/15 9:00:00 CDTNotes: (Same as: Lopid) Prozac 40 mg, 2 Inactive cap, Route: 2015 [facility] PO, Drug form: CAP, QPM, Dosing Weight 100, kg, Start date: 08/17/15 17:00:00 CDT, Duration: 30 day, Stop date: 09/15/15 17:00:00 CDTNotes: (Same as: Prozac, Sarafem) Insulin regular 5 unit, 0.05 Inactive 08/16/ MH mL, Route: 2015 [facility] IV, Drug form: INJ, ONCE, Dosing Weight 100, kg, Priority: NOW, Start date: 08/17/15 13:12:00 CDT, Stop date: 08/17/15 13:12:00 CDTNotes: (Same as: Humulin R and NovoLIN R) WASTE: F/P - Black; E - Municipal Trash Bin (Do not shake) Levemir 10 unit, 0.1 Inactive 08/16/ MH mL, Route: 2015 [facility] SUB-Q, Drug form: INJ, ONCE, Dosing Weight 100, kg, Priority: NOW, Start date: 08/17/15 13:12:00 CDT, Stop date: 08/17/15 13:12:00 CDT, Patient's Own MedsNotes: Same as Levemir Do not hold insulin without contacting prescriber WASTE: F/P - Black; E - Municipal Trash Bin "single patient use only" Aspirin 81 MG 81 mg, 1 Inactive 08/16/ MH Enteric Coated tab, Route: 2015 [facility] Tablet PO, Drug form: ECTAB, Daily, Dosing Weight 100, kg, Start date: 08/17/15 12:00:00 CDT, Duration: 30 day, Stop date: 09/16/15 9:00:00 CDTNotes: Do not crush or chew. (Same As: Ecotrin) NovoLOG FlexPen 30 unit, 0.3 Inactive 08/16/ MH mL, Route: 2015 [facility] SUB-Q, Drug form: SOLN, TID-Before Meals, Dosing Weight 100, kg, Start date: 08/17/15 11:50:00 CDT, Duration: 30 day, Stop date: 09/16/15 7:50:00 CDTNotes: Roll in palms of hands gently; Do not shake vigorously. (Same as: NovoLOG) "single patient use only" WASTE: F/P - Black; E - Municipal Trash Bin Stable for 28 days at room temperature. Expires in days from __Date Esomeprazole 40 40 mg=1 cap, Active 08/16/ MH MG Enteric PO, Daily, # 2016 [facility] Coated Capsule 30 cap, 1 Refill(s) Nitroglycerin 0.4 mg, 1 Inactive 08/16/ MH 0.4 MG tab, Route: 2015 [facility] Sublingual SL, Drug Tablet form: TAB, [Nitrostat] Q5Min, Dosing Weight 100, kg, PRN Chest Pain, Start date: 08/17/15 10:20:00 CDT, Duration: 30 day, Stop date: 09/16/15 10:19:00 CDTNotes: (Same as:Nitroquic k, Nitrostat) "Do Not Crush" Sublingual tablet atropine 0.5 mg, 5 No Longer 04/25/ MH mL, Route: Active 2015 [facility] IVP, Drug form: INJ, PRN, PRN Bradycardia, Start date: 08/16/15 22:09:00 CDT, Duration: 30 day, Stop date: 09/15/15 22:08:00 CDT Saline Flush 10 ml, No Longer 0.9% Route: IVP, [facility] 2015 [facility] Drug Form: INJ, Dosing Weight 100, kg, Q12H, Start date: 08/16/15 21:00:00 CDT, Duration: 30 day, Stop date: 09/15/15 9:00:00 CDTNotes: (Same as: BD Posiflush) Saline Flush 10 ml, No Longer 0.9% Route: IV, [facility] 2015 [facility] Drug Form: INJ, Dosing Weight 100, kg, PRN, PRN Line Flush, Start date: 08/16/15 19:43:00 CDT, Duration: 30 day, Stop date: 09/15/15 19:42:00 CDTNotes: (Same as: BD Posiflush) Nitroglycerin 0.4 mg, 1 No Longer tab, Route: Active 2015 [facility], Drug form: TAB, Q5Min, Dosing Weight 100, kg, PRN Chest Pain, Start date: 08/16/15 19:43:00 CDT, Duration: 3 doses or times, Stop date: Limited # of timesNotes: (Same as:Nitroquic k, Nitrostat) "Do Not Crush" Sublingual tablet Morphine 2 mg, 1 mL, No Longer Route: IVP, [facility] 2015 [facility] Drug form: INJ, Q15Min, Dosing Weight 100, kg, PRN Chest Pain, Start date: 08/16/15 19:43:00 CDT, Duration: 2 doses or times, Stop date: Limited # of timesNotes: (Same as:MORPhine Sulfate) 24 HR 120 mg=2 Active Isosorbide tab, PO, 2015 [facility] Mononitrate 60 QAM, 0 MG Extended Refill(s) Release Tablet [Imdur] Nitroglycerin 0.4 mg=1 Active 0.4 MG tab, SL, 2015 [facility] Sublingual Q5Min, PRN Tablet as needed [Nitrostat] for chest pain, 0 Refill(s) clopidogrel 75 75 mg=1 tab, Active MG Oral Tablet PO, Daily, 0 2015 [Plavix] Refill(s) 24 HR 25 mg=1 tab, Active Metoprolol PO, Daily, 0 2015 Tartrate 25 MG Refill(s) Extended Release Tablet [Toprol] gemfibrozil 600 600 mg=1 Active mg oral tablet tab, PO, 2015 BID, 0 Refill(s) atorvastatin 80 80 mg=1 tab, Active MG Oral Tablet PO, Bedtime, 2015 [Lipitor] 0 Refill(s) Methocarbamol 1,500 mg=2 No Longer 750 MG Oral tab, PO, Active 2015 Tablet TID, PRN [Robaxin] Muscle Spasms, 0 Refill(s) Furosemide 20 20 mg=1 tab, Active MG Oral Tablet PO, Daily, 0 2015 [Lasix] Refill(s) Hydrochlorothia 1 tab, PO, Active zide 25 MG / Daily, 0 2015 Lisinopril 20 Refill(s) MG Oral Tablet 3 ML Insulin, 30 unit, Active Aspart, Human SUB-Q, 2015 100 UNT/ML Pen TID-Before Injector Meals, 0 [NovoLog] Refill(s) 3 ML insulin 30 unit, Active detemir 100 SUB-Q, 2015 UNT/ML Bedtime, 0 Prefilled Refill(s) Syringe [Levemir] Morphine 4 mg, 2 mL, Inactive Route: IVP, 2015 Drug form: INJ, ONCE, Dosing Weight 100, kg, Priority: STAT, Start date: 08/16/15 18:14:00 CDT, Stop date: 08/16/15 18:14:00 CDTNotes: (Same as:MORPhine Sulfate) potassium 40 mEq, 2 Inactive chloride tab, Route: 2015 PO, Drug form: ERTAB, ONCE, Dosing Weight 100, kg, Priority: STAT, Start date: 08/16/15 17:21:00 CDT, Stop date: 08/16/15 17:21:00 CDTNotes: (Same as: K-Dur 20) "Do Not Crush" With food and full glass of water Insulin, 10 unit, 0.1 Inactive Aspart, Human mL, Route: 2015 [facility] SUB-Q, Drug form: SOLN, ONCE, Dosing Weight 100, kg, Priority: STAT, Start date: 08/16/15 15:57:00 CDT, Stop date: 08/16/15 15:57:00 CDTNotes: Roll in palms of hands gently; Do not shake vigorously. (Same as: NovoLOG) "single patient use only" WASTE: F/P - Black; E - Municipal Trash Bin Stable for 28 days at room temperature. Expires in days from __Date Aspirin 324 mg, 4 Inactive tab, Route: 2015 [facility] PO, Drug form: CHEWTAB, ONCE, Dosing Weight 100, kg, Priority: STAT, Start date: 08/16/15 15:57:00 CDT, Stop date: 08/16/15 15:57:00 CDTNotes: Take with food. Morphine 4 mg, 2 mL, Inactive Route: IVP, 2015 [facility] Drug form: INJ, ONCE, Dosing Weight 100, kg, Priority: STAT, Start date: 08/16/15 15:57:00 CDT, Stop date: 08/16/15 15:57:00 CDTNotes: (Same as:MORPhine Sulfate) Sodium Chloride 1,000 mL, Inactive 0.154 MEQ/ML 1000 ml/hr, 2015 [facility] Injectable Infuse Over: Solution 1 hr, Route: IV, 1,000, Drug form: INJ, ONCE, Priority: STAT, Dosing Weight 100 kg, Start date: 08/16/15 15:57:00 CDT, Duration: 1 doses or times, Stop date: 08/16/15 15:57:00 CDT Saline Flush 10 mL, Inactive 0.9% Route: IVP, 2015 [facility] Drug Form: INJ, Dosing Weight 100, kg, PRN, PRN Line Flush, Start date: 08/16/15 15:57:00 CDT, Duration: 30 day, Stop date: 09/15/15 15:56:00 CDTNotes: (Same as: BD Posiflush) metoprolol 25 25 mg=1 tab, Active mg oral tablet, PO, Daily, # 2015 extended 30 tab, 0 release Refill(s) 24 HR 120 mg=2 Active Isosorbide tab, PO, 2015 Mononitrate 60 QAM, # 60 MG Extended tab, 3 Release Tablet Refill(s) [Imdur] prasugrel 10 mg 10 mg=1 tab, Active oral tablet PO, Daily, # 2015 30 tab, 0 Refill(s) Nitroglycerin 0.4 mg=1 Active 0.4 MG tab, SL, 2015 Sublingual Q5Min, PRN Tablet Chest pain, Give up to 3 doses, # 10 tab, 0 Refill(s) Aspirin 81 MG 81 mg, 1 Inactive Enteric Coated tab, Route: 2015 Tablet PO, Drug form: ECTAB, Daily, Dosing Weight 97.727, kg, Start date: 06/06/15 9:00:00, Duration: 30 day, Stop date: 07/05/15 9:00:00Notes : Do not crush or chew. (Same As: Ecotrin) prasugrel 10 mg, 1 Inactive tab, Route: 2015 PO, Drug form: TAB, Daily, Dosing Weight 97.727, kg, Start date: 06/06/15 9:00:00, Duration: 30 day, Stop date: 07/05/15 9:00:00Notes : Same as Effient For patients 60kg, without history of TIA/Ischemic stroke and without likely bypass surgery Aspirin 325 MG 325 mg, 1 Inactive Oral Tablet tab, Route: 2015 PO, Drug form: TAB, Daily, Dosing Weight 97.727, kg, Priority: Routine, Start date: 06/06/15 9:00:00, Duration: 30 day, Stop date: 07/05/15 9:00:00Notes : Take with food. atropine 0.5 mg, 5 No Longer mL, Route: Active 2015 IVP, Drug form: INJ, PRN, PRN Bradycardia, Start date: 06/05/15 21:37:00, Duration: 30 day, Stop date: 07/05/15 22:36:00 Ticagrelor 90 mg, Inactive Route: PO, 2015 [facility] Q12H, Dosing Weight 97.727, kg, Start date: 06/05/15 21:00:00, Duration: 30 day, Stop date: 07/05/15 9:00:00 Aspirin 325 MG 325 mg, 1 Inactive Oral Tablet tab, Route: 2015 [facility] PO, Drug form: TAB, ONCE, Dosing Weight 97.727, kg, Start date: 06/05/15 17:46:00, Stop date: 06/05/15 17:46:00Note s: Take with food. Nitroglycerin 0.4 mg, 1 No Longer tab, Route: Active 2015 [facility] SL, Drug form: TAB, Q5Min, Dosing Weight 97.727, kg, PRN Chest Pain, Start date: 06/05/15 17:46:00, Duration: 3 doses or times, Stop date: Limited # of timesNotes: (Same as:Nitroquic k, Nitrostat) "Do Not Crush" Sublingual tablet Sodium Chloride 1,200 mL, No Longer 0.154 MEQ/ML Rate: [address] [facility] Injectable ml/hr, Solution Infuse over: 12 hr, Route: IV, Dosing Weight 97.727 kg, Total Volume: 1,200, Start date: 06/05/15 17:46:00, Duration: 24 hr, Stop date: 06/06/15 17:45:00 Zyprexa 10 mg, 1 No Longer tab, Route: Active 2015 [facility] PO, Drug form: TAB, Bedtime, Dosing Weight 97.727, kg, Start date: 06/04/15 21:00:00, Duration: 30 day, Stop date: 07/03/15 21:00:00Note s: (Same as: ZyPREXA ) atorvastatin 80 mg, 2 No Longer tab, Route: Active 2015 [facility] PO, Drug form: TAB, Bedtime, Dosing Weight 97.727, kg, Start date: 06/04/15 21:00:00, Duration: 30 day, Stop date: 07/03/15 21:00:00Note s: (Same as: Lipitor) hydrochlorothia 25 mg, 1 No Longer zide 25 mg oral tab, Route: Active 2015 [facility] tablet PO, Drug form: TAB, Daily, Start date: 06/04/15 9:00:00, Duration: 30 day, Stop date: 07/03/15 9:00:00Notes : (Same as: Hydrodiuril) With food. Levemir FlexPen 20 unit, 0.2 No Longer mL, Route: Active 2015 [facility] SUB-Q, Drug form: INJ, BID, Dosing Weight 97.727, kg, Start date: 06/04/15 9:00:00, Duration: 30 day, Stop date: 07/03/15 21:00:00Note s: Same as Levemir Do not hold insulin without contacting prescriber WASTE: F/P - Black; E - Municipal Trash Bin "single patient use only" Imdur 120 mg, 2 No Longer tab, Route: Active 2015 [facility] PO, Drug form: ERTAB, QAM, Dosing Weight 97.727, kg, Start date: 06/04/15 9:00:00, Duration: 30 day, Stop date: 07/03/15 9:00:00Notes : (Same as:Imdur) "Do Not Crush" Take on empty stomach/ full glass of water. Do not crush Hydrochlorothia 1 tab, No Longer zide 25 MG / Route: PO, Active 2015 [facility] Lisinopril 20 Drug Form: MG Oral Tablet TAB, Dosing Weight 97.727, kg, Daily, Start date: 06/04/15 9:00:00, Duration: 30 day, Stop date: 07/03/15 9:00:00 Gemfibrozil 600 mg, 1 No Longer tab, Route: Active 2015 [facility] PO, Drug form: TAB, BID, Dosing Weight 97.727, kg, Start date: 06/04/15 9:00:00, Duration: 30 day, Stop date: 07/03/15 17:00:00Note s: (Same as: Lopid) Prozac 40 mg, 2 No Longer cap, Route: 2015 [facility] PO, Drug form: CAP, Daily, Dosing Weight 97.727, kg, Start date: 06/04/15 9:00:00, Duration: 30 day, Stop date: 07/03/15 9:00:00Notes : (Same as: Prozac, Sarafem) Famotidine 20 20 mg, 1 No Longer MG Oral Tablet tab, Route: Active 2015 [facility] [Pepcid] PO, Drug form: TAB, Q12H, Dosing Weight 97.727, kg, Start date: 06/04/15 9:00:00, Duration: 30 day, Stop date: 07/03/15 21:00:00Note s: (Same as: Pepcid) Plavix 75 mg, 1 No Longer tab, Route: 2015 [facility] PO, Drug form: TAB, Daily, Dosing Weight 97.727, kg, Start date: 06/04/15 9:00:00, Duration: 30 day, Stop date: 07/03/15 9:00:00Notes : (Same As: Plavix) Lisinopril 20 mg, No Longer Route: PO, 2015 [facility] Drug form: TAB, Daily, Dosing Weight 97.727, kg, Start date: 06/04/15 9:00:00, Duration: 30 day, Stop date: 07/03/15 9:00:00 metoprolol 25 mg, 1 No Longer extended tab, Route: 2015 [facility] release PO, Drug form: ERTAB, Daily, Start date: 06/04/15 9:00:00, Duration: 30 day, Stop date: 07/03/15 9:00:00Notes : (Same as: Toprol XL) Do Not Crush Prinivil 20 mg, 1 No Longer tab, Route: Active 2015 [facility] PO, Drug form: TAB, Daily, Start date: 06/04/15 9:00:00, Duration: 30 day, Stop date: 07/03/15 9:00:00Notes : (Same as: Prinivil, Zestril) Saline Flush 10 ml, No Longer 0.9% Route: IVP, 2015 [facility] Drug Form: INJ, Dosing Weight 97.727, kg, Q12H, Start date: 06/04/15 9:00:00, Duration: 30 day, Stop date: 07/03/15 21:00:00Note s: (Same as: BD Posiflush) Aspirin 81 MG 81 mg, 1 No Longer Enteric Coated tab, Route: 2015 [facility] Tablet PO, Drug form: ECTAB, Daily, Dosing Weight 97.727, kg, Start date: 06/04/15 9:00:00, Duration: 30 day, Stop date: 07/03/15 9:00:00Notes : Do not crush or chew. (Same As: Ecotrin) normal saline 1,000 mL, No Longer 0.9% IV 1,000 Rate: [address] [facility] mL ml/hr, Infuse over: 13.3 hr, Route: IV, Dosing Weight 97.727 kg, Total Volume: 1,000, Start date: 06/03/15 22:15:00, Duration: 30 day, Stop date: 07/03/15 22:14:00 Zofran 4 mg, 2 mL, No Longer Route: IV, 2015 [facility] Drug form: INJ, Q4H, Dosing Weight 97.727, kg, PRN Nausea, Start date: 06/03/15 21:53:00, Duration: 30 day, Stop date: 07/03/15 21:52:00Note s: (Same as: Zofran) MEDICATION WASTE Product Size: 4 mg Product Wasted: ___ mg Morphine 2 mg, 1 mL, No Longer Route: IV, 2015 [facility] Drug form: INJ, Q6H, Dosing Weight 97.727, kg, PRN Pain Score 4-6, Start date: 06/03/15 21:52:00, Duration: 30 day, Stop date: 07/03/15 21:51:00Note s: (Same as:MORPhine Sulfate) Insulin, 15 unit, No Longer Aspart, Human 0.15 mL, 2015 [facility] Route: SUB-Q, Drug form: SOLN, TID-Before Meals, Dosing Weight 97.727, kg, PRN Blood Glucose Results, Start date: 06/03/15 21:51:00, Duration: 30 day, Stop date: 07/03/15 21:50:00Note s: Roll in palms of hands gently; Do not shake vigorously. (Same as: NovoLOG) "single patient use only" WASTE: F/P - Black; E - Municipal Trash Bin Stable for 28 days at room temperature. Expires in days from __Date Glucagon 1 mg, Route: No Longer IM, Drug Active 2015 [facility] form: PDR/INJ, PRN, Dosing Weight 97.727, kg, PRN Blood Glucose Results, Start date: 06/03/15 21:51:00, Duration: 30 day, Stop date: 07/03/15 21:50:00 Dextrose 50% 25 gm, 50 No Longer Syringe mL, Route: Active 2015 [facility] IVP, Drug Form: INJ, Dosing Weight 97.727, kg, PRN, PRN Blood Glucose Results, Start date: 06/03/15 21:51:00, Duration: 30 day, Stop date: 07/03/15 21:50:00 Tylenol 650 mg, 2 No Longer tab, Route: Active 2015 [facility] PO, Drug form: TAB, Q6H, Dosing Weight 97.727, kg, PRN Pain 1-3/Temp > 100.4 F, Start date: 06/03/15 21:50:00, Duration: 30 day, Stop date: 07/03/15 21:49:00Note s: Do not exceed 4 gm/day. (Same as: Tylenol) Nitroglycerin 0.4 mg, 1 No Longer 0.4 MG tab, Route: Active 2015 [facility] Sublingual SL, Drug Tablet form: TAB, Q5Min, Dosing Weight 97.727, kg, PRN Chest Pain, Start date: 06/03/15 21:50:00, Duration: 30 day, Stop date: 07/03/15 21:49:00Note s: (Same as:Nitroquic k, Nitrostat) "Do Not Crush" Sublingual tablet Dextrose 50% 12.5 gm, 25 Inactive Syringe mL, Route: 2015 [facility] IVP, Drug Form: INJ, Dosing Weight 97.727, kg, PRN, PRN Blood Glucose Results, Start date: 06/03/15 21:14:00, Duration: 30 day, Stop date: 07/03/15 21:13:00 Glucagon 1 mg, Route: Inactive IM, Drug 2015 [facility] form: PDR/INJ, PRN, Dosing Weight 97.727, kg, PRN Blood Glucose Results, Start date: 06/03/15 21:14:00, Duration: 30 day, Stop date: 07/03/15 21:13:00 Saline Flush 10 ml, No Longer 0.9% Route: IVP, Active 2015 [facility] Drug Form: INJ, Dosing Weight 97.727, kg, PRN, PRN Line Flush, Start date: 06/03/15 21:14:00, Duration: 30 day, Stop date: 07/03/15 21:13:00Note s: (Same as: BD Posiflush) Insulin regular 5 unit, 0.05 Inactive mL, Route: 2015 [facility] IV, Drug form: INJ, ONCE, Dosing Weight 97.727, kg, Priority: STAT, Start date: 06/03/15 19:30:00, Stop date: 06/03/15 19:30:00Note s: (Same as: Humulin R and NovoLIN R) WASTE: F/P - Black; E - [employer] Trash Bin (Do not shake) Sodium Chloride 1,000 mL, Inactive 0.154 MEQ/ML 1,000 ml/hr, 2015 [facility] Injectable Infuse Over: Solution 1 hr, Route: IV, 1,000, Drug form: INJ, ONCE, Priority: STAT, Dosing Weight 97.727 kg, Start date: 06/03/15 18:13:00, Duration: 1 doses or times, Stop date: 06/03/15 18:13:00 Insulin regular 10 unit, 0.1 Inactive mL, Route: 2015 [facility] IVP, Drug form: INJ, ONCE, Dosing Weight 97.727, kg, Priority: STAT, Start date: 06/03/15 18:00:00, Stop date: 06/03/15 18:00:00Note s: (Same as: Humulin R and NovoLIN R) WASTE: F/P - Black; E - [employer] Trash Bin (Do not shake) normal saline 1,000 mL, Inactive 0.9% IV 1,000 Rate: 1,[address] [facility] mL ml/hr, Infuse over: 1 hr, Route: IV, Dosing Weight 97.727 kg, Total Volume: 1,000, Start date: 06/03/15 17:59:00, Duration: 1 doses or times, Stop date: 06/03/15 18:58:00 Nitroglycerin 0.4 mg, 1 Inactive 0.4 MG tab, Route: 2015 [facility] Sublingual SL, ONCE, Tablet Dosing [Nitrostat] Weight 97.727, kg, Start date: 06/03/15 17:57:00, Stop date: 06/03/15 17:57:00 Aspirin Route: CHEW, Inactive Drug form: 2015 [facility] CHEWTAB, ONCE, Dosing Weight 97.727, kg, Priority: STAT, Start date: 06/03/15 17:56:00, Stop date: 06/03/15 17:56:00 Saline Flush 10 mL, Inactive 0.9% Route: IVP, 2015 [facility] Drug Form: INJ, Dosing Weight 97.727, kg, PRN, PRN Line Flush, Start date: 06/03/15 16:55:00, Duration: 30 day, Stop date: 07/03/15 16:54:00Note s: (Same as: BD Posiflush) Insulin Aspart See Special Active 100 unit/ml - Instructions 2015 [facility] (High CD) , SUB-Q, TID-Before Meals, Check blood sugar before breakfast, lunch, and dinner, and inject correction doses: Inject 3 unit if Sugar 150-199, Inject 6 units if Sugar 200-249, Inject 9 units if Sugar 250-299, Inject 12 units if... insulin 50 units, Active aspart-insulin SUB-Q, BID, 2015 [facility] aspart # 10 mL, 0 protamine 30 Refill(s) units-70 units/mL subcutaneous suspension Tylenol 650 mg, 20.3 Inactive mL, Route: 2015 [facility] PO, Drug form: LIQ, Q6H, Dosing Weight 97.727, kg, PRN Pain 1-3/Temp > 99.5 F, Start date: 05/15/15 9:46:00, Duration: 30 day, Stop date: 06/14/15 9:45:00Notes : Max acetaminophe [id number] (4 gm/day). (Same as: Tylenol) Aspirin 81 MG 81 mg, 1 Inactive Enteric Coated tab, Route: 2015 [facility] Tablet PO, Drug form: CHEWTAB, Daily, Dosing Weight 97.727, kg, Start date: 05/15/15 9:00:00, Duration: 30 day, Stop date: 06/13/15 9:00:00Notes : Take with food. clopidogrel 75 mg, 1 Inactive tab, Route: 2015 [facility] PO, Drug form: TAB, Daily, Dosing Weight 97.727, kg, Start date: 05/15/15 9:00:00, Duration: 30 day, Stop date: 06/13/15 9:00:00Notes : (Same As: Plavix) NovoLOG Mix 50 unit, 0.5 No Longer 70/30 FlexPen mL, Route: Active 2015 [facility] SUB-Q, Drug form: SUSP, BID, Start date: 05/14/15 17:00:00, Duration: 30 day, Stop date: 06/13/15 9:00:00Notes : (Same as: Novolog-Mix 70/30) WASTE: F/P - Black; E - [employer] Trash Bin Nitroglycerin 0.4 mg, 1 No Longer tab, Route: Active 2015 [facility] SL, Drug form: TAB, Q5Min, Dosing Weight 97.727, kg, PRN Chest Pain, Start date: 05/14/15 9:14:00, Duration: 3 doses or times, Stop date: Limited # of timesNotes: (Same as:Nitroquic k, Nitrostat) "Do Not Crush" Sublingual tablet lisinopril 20 40 mg=2 tab, Active mg oral tablet PO, Daily, # 2015 [facility] 60 tab, 3 Refill(s) 24 HR 120 mg=2 Active Isosorbide tab, PO, 2015 Mononitrate 60 QAM, # 60 MG Extended tab, 3 Release Tablet Refill(s) [Imdur] clopidogrel 75 75 mg=1 tab, Active mg oral tablet PO, Daily, # 2015 30 tab, 3 Refill(s) Lisinopril 20 mg, No Longer Route: PO, Active 2015 [facility] Drug form: TAB, Daily, Dosing Weight 97.727, kg, Start date: 05/14/15 9:00:00, Duration: 30 day, Stop date: 06/12/15 9:00:00 Isosorbide 30 mg, 1 No Longer tab, Route: Active 2015 [facility] PO, Drug form: ERTAB, Daily, Dosing Weight 97.727, kg, Start date: 05/14/15 9:00:00, Duration: 30 day, Stop date: 06/12/15 9:00:00Notes : (Same as:Imdur) "Do Not Crush" Take on empty stomach/ full glass of water. Do not crush NovoLIN 70/30 Route: No Longer SUB-Q, BID, Active 2015 [facility] Dosing Weight 97.727, kg, Start date: 05/14/15 9:00:00, Duration: 30 day, Stop date: 06/12/15 17:00:00 Hydrochlorothia 1 tab, No Longer zide 25 MG / Route: PO, Active 2015 [facility] Lisinopril 20 Drug Form: MG Oral Tablet TAB, Dosing Weight 97.727, kg, Daily, Start date: 05/14/15 9:00:00, Duration: 30 day, Stop date: 06/12/15 9:00:00 Prozac 40 mg, 2 No Longer cap, Route: Active 2015 [facility] PO, Drug form: CAP, Daily, Dosing Weight 97.727, kg, Start date: 05/14/15 9:00:00, Duration: 30 day, Stop date: 06/12/15 9:00:00Notes : (Same as: Prozac, Sarafem) NovoLOG Mix 40 unit, 0.4 Inactive 70/30 FlexPen mL, Route: 2015 [facility] SUB-Q, Drug form: INJ, BID, Start date: 05/14/15 9:00:00, Duration: 30 day, Stop date: 06/12/15 17:00:00Note s: Roll in palms of hands gently; Do not shake vigorously. (Same as: NovoLOG Mix) "single patient use only" WASTE: F/P - Black; E - Municipal Trash Bin Stable for 14 days at room temperature Expires in days from __Date Saline Flush 10 ml, No Longer 0.9% Route: IVP, Active 2015 [facility] Drug Form: INJ, Dosing Weight 97.727, kg, Q12H, Start date: 05/14/15 9:00:00, Duration: 30 day, Stop date: 06/12/15 21:00:00Note s: (Same as: BD Posiflush) Aspirin 81 MG 81 mg, No Longer Enteric Coated Route: PO, Active 2015 [facility] Tablet Drug form: ECTAB, Daily, Dosing Weight 97.727, kg, Start date: 05/14/15 9:00:00, Duration: 30 day, Stop date: 06/12/15 9:00:00 Prinivil 20 mg, 1 No Longer tab, Route: Active 2015 [facility] PO, Drug form: TAB, Daily, Start date: 05/14/15 9:00:00, Duration: 30 day, Stop date: 06/12/15 9:00:00Notes : (Same as: Prinivil, Zestril) hydrochlorothia 25 mg, 1 No Longer zide 25 mg oral tab, Route: Active 2015 [facility] tablet PO, Drug form: TAB, Daily, Start date: 05/14/15 9:00:00, Duration: 30 day, Stop date: 06/12/15 9:00:00Notes : (Same as: Hydrodiuril) With food. NovoLOG PenFill 30 unit, No Longer Route: Active 2015 [facility] SUB-Q, Drug form: SOLN, TID-Before Meals, Dosing Weight 97.727, kg, Start date: 05/14/15 7:30:00, Duration: 30 day, Stop date: 06/12/15 16:30:00 Saline Flush 10 ml, No Longer 0.9% Route: IVP, Active 2015 [facility] Drug Form: INJ, Dosing Weight 97.727, kg, PRN, PRN Line Flush, Start date: 05/13/15 21:23:00, Duration: 30 day, Stop date: 06/12/15 21:22:00Note s: (Same as: BD Posiflush) Nitroglycerin 0.4 mg, Inactive Route: SL, 2015 [facility] Drug form: TAB, Q5Min, Dosing Weight 97.727, kg, PRN Chest Pain, Start date: 05/13/15 21:23:00, Duration: 3 doses or times, Stop date: Limited # of times Insulin, 8 unit, 0.08 No Longer Aspart, Human mL, Route: Active 2015 [facility] SUB-Q, Drug form: SOLN, TID-Before Meals, Dosing Weight 97.727, kg, PRN Blood Glucose Results, Start date: 05/13/15 21:23:00, Duration: 30 day, Stop date: 06/12/15 21:22:00Note s: Roll in palms of hands gently; Do not shake vigorously. (Same as: NovoLOG) "single patient use only" WASTE: F/P - Black; E - [employer] Trash Bin Stable for 28 days at room temperature. Expires in days from __Date Glucagon 1 mg, Route: No Longer IM, Drug Active 2015 [facility] form: PDR/INJ, PRN, Dosing Weight 97.727, kg, PRN Blood Glucose Results, Start date: 05/13/15 21:23:00, Duration: 30 day, Stop date: 06/12/15 21:22:00 Dextrose 50% 25 gm, 50 No Longer Syringe mL, Route: Active 2015 [facility] IVP, Drug Form: INJ, Dosing Weight 97.727, kg, PRN, PRN Blood Glucose Results, Start date: 05/13/15 21:23:00, Duration: 30 day, Stop date: 06/12/15 21:22:00 24 HR 25 mg, 1 No Longer Metoprolol tab, Route: Active 2015 [facility] Tartrate 25 MG PO, Drug Extended form: ERTAB, Release Tablet BID, Start [Toprol] date: 05/13/15 21:00:00, Duration: 30 day, Stop date: 06/12/15 9:00:00Notes : (Same as: Toprol XL) Do Not Crush insulin detemir 30 unit, 0.3 No Longer mL, Route: Active 2015 [facility] SUB-Q, Drug form: INJ, Bedtime, Dosing Weight 97.727, kg, Start date: 05/13/15 21:00:00, Duration: 30 day, Stop date: 06/11/15 21:00:00Note s: Same as Levemir Do not hold insulin without contacting prescriber WASTE: F/P - Black; E - [place] Trash Bin "single patient use only" Lipitor 80 mg, 2 No Longer tab, Route: Active 2015 [facility] PO, Drug form: TAB, Bedtime, Dosing Weight 97.727, kg, Start date: 05/13/15 21:00:00, Duration: 30 day, Stop date: 06/11/15 21:00:00Note s: (Same as: Lipitor) Aspirin 81 MG 81 mg, 1 No Longer Enteric Coated tab, Route: Active 2015 [facility] Tablet PO, Drug form: ECTAB, Daily, Dosing Weight 97.727, kg, Start date: 05/13/15 21:00:00, Duration: 30 day, Stop date: 06/12/15 9:00:00Notes : Do not crush or chew. (Same As: Ecotrin) NS 1,000 mL 1,000 mL, No Longer Rate: [address] [facility] ml/hr, Infuse over: 10 hr, Route: IV, Dosing Weight 97.727 kg, Total Volume: 1,000, Start date: 05/13/15 18:22:00, Duration: 30 day, Stop date: 06/12/15 18:21:00 Insulin, 2 unit, 0.02 No Longer Aspart, Human mL, Route: Active 2015 [facility] SUB-Q, Drug form: SOLN, Bedtime, Dosing Weight 97.727, kg, PRN Blood Glucose Results, Start date: 05/13/15 18:14:00, Duration: 30 day, Stop date: 06/12/15 18:13:00Note s: Roll in palms of hands gently; Do not shake vigorously. (Same as: NovoLOG) "single patient use only" WASTE: F/P - Black; E - [employer] Trash Bin Stable for 28 days at room temperature. Expires in days from __Date Dextrose 50% 12.5 gm, 25 Inactive Syringe mL, Route: 2015 [facility] IVP, Drug Form: INJ, Dosing Weight 97.727, kg, PRN, PRN Blood Glucose Results, Start date: 05/13/15 18:14:00, Duration: 30 day, Stop date: 06/12/15 18:13:00 Glucagon 1 mg, Route: Inactive IM, Drug 2015 [facility] form: PDR/INJ, PRN, Dosing Weight 97.727, kg, PRN Blood Glucose Results, Start date: 05/13/15 18:14:00, Duration: 30 day, Stop date: 06/12/15 18:13:00 Nitroglycerin 0.4 mg, 1 No Longer 0.4 MG tab, Route: Active 2015 [facility] Sublingual SL, Drug Tablet form: TAB, Q5Min, Dosing Weight 97.727, kg, PRN Chest Pain, Start date: 05/13/15 18:12:00, Duration: 30 day, Stop date: 06/12/15 18:11:00Note s: (Same as:Nitroquic k, Nitrostat) "Do Not Crush" Sublingual tablet Insulin regular 10 unit, Inactive Route: IVP, 2015 [facility] ONCE, Dosing Weight 97.727, kg, Priority: STAT, Start date: 05/13/15 15:54:00, Stop date: 05/13/15 15:54:00 Saline Flush 10 mL, Inactive 0.9% Route: IVP, 2015 Drug Form: INJ, Dosing Weight 97.727, kg, PRN, PRN Line Flush, Start date: 05/13/15 13:34:00, Duration: 30 day, Stop date: 06/12/15 13:33:00Note s: (Same as: BD Posiflush) isosorbide 30 mg=1 tab, Active mononitrate 30 PO, Daily, # 2015 mg oral tablet, 30 tab, 0 extended Refill(s) release lisinopril 20 20 mg=1 tab, Active mg oral tablet PO, Daily, # 2015 30 tab, 0 Refill(s) metoprolol 25 25 mg=1 tab, Active mg oral tablet, PO, Daily, # 2015 extended 30 tab, 0 release Refill(s) gemfibrozil 600 600 mg=1 Active mg oral tablet tab, PO, 2015 BID, # 60 tab, 0 Refill(s) Famotidine 20 20 mg=1 tab, Active MG Oral Tablet PO, Q12H, # 2015 [Pepcid] 60 tab, 0 Refill(s) 3 ML insulin 30 unit, Active detemir 100 SUB-Q, 2015 UNT/ML Bedtime, # Prefilled 10 mL, 0 Syringe Refill(s) [Levemir] atorvastatin 80 80 mg=1 tab, Active MG Oral Tablet PO, Bedtime, 2015 [Lipitor] # 30 tab, 0 Refill(s) Imdur 30 mg, 1 Inactive tab, Route: 2015 PO, Drug form: ERTAB, Daily, Start date: 05/03/15 9:00:00, Duration: 30 day, Stop date: 06/01/15 9:00:00Notes : (Same as:Imdur) "Do Not Crush" Take on empty stomach/ full glass of water. Do not crush Levemir 20 unit, 0.2 No Longer mL, Route: Active 2015 SUB-Q, Drug form: INJ, Q12H, Dosing Weight 99.545, kg, Start date: 05/02/15 21:00:00, Duration: 30 day, Stop date: 06/01/15 9:00:00Notes : Same as Levemir Do not hold insulin without contacting prescriber "single patient use only" Imdur 30 mg, 1 Inactive tab, Route: 2015 [facility] PO, Drug form: ERTAB, QAM, Dosing Weight 99.545, kg, Priority: STAT, Start date: 05/02/15 13:23:00, Duration: 30 day, Stop date: 06/01/15 9:00:00Notes : (Same as:Imdur) "Do Not Crush" Take on empty stomach/ full glass of water. Do not crush Aspirin 81 MG 81 mg, 1 No Longer Enteric Coated tab, Route: Active 2015 [facility] Tablet PO, Drug form: ECTAB, Daily, Dosing Weight 99.545, kg, Start date: 05/02/15 9:00:00, Duration: 30 day, Stop date: 05/31/15 9:00:00Notes : Do not crush or chew. (Same As: Ecotrin) Hydrochlorothia 1 tab, No Longer zide 25 MG / Route: PO, Active 2015 [facility] Lisinopril 20 Drug Form: MG Oral Tablet TAB, Dosing Weight 99.545, kg, Daily, Start date: 05/02/15 9:00:00, Duration: 30 day, Stop date: 05/31/15 9:00:00 Gemfibrozil 600 mg, 1 No Longer tab, Route: Active 2015 [facility] PO, Drug form: TAB, BID, Dosing Weight 99.545, kg, Start date: 05/02/15 9:00:00, Duration: 30 day, Stop date: 05/31/15 17:00:00Note s: (Same as: Lopid) Prinivil 20 mg, 1 No Longer tab, Route: Active 2015 [facility] PO, Drug form: TAB, Daily, Start date: 05/02/15 9:00:00, Duration: 30 day, Stop date: 05/31/15 9:00:00Notes : (Same as: Prinivil, Zestril) hydrochlorothia 25 mg, 1 No Longer zide 25 mg oral tab, Route: Active 2015 [facility] tablet PO, Drug form: TAB, Daily, Start date: 05/02/15 9:00:00, Duration: 30 day, Stop date: 05/31/15 9:00:00Notes : (Same as: Hydrodiuril) With food. isosorbide 60 mg, 1 Inactive mononitrate tab, Route: 2015 extended PO, Drug release form: ERTAB, QAM, Dosing Weight 99.545, kg, Start date: 05/02/15 9:00:00, Duration: 30 day, Stop date: 05/31/15 9:00:00Notes : (Same as:Imdur) "Do Not Crush" Take on empty stomach/ full glass of water. Do not crush remove patch Route: TOP, No Longer Drug form: Active 2015 [facility] MISC, Q24H, Start date: 05/02/15 0:00:00, Duration: 30 day, Stop date: 05/31/15 0:00:00 Acetaminophen 1 tab, No Longer 325 MG / Route: PO, Active 2015 [facility] Hydrocodone Drug Form: Bitartrate 5 MG TAB, Dosing Oral Tablet Weight [[place] 5/325] 99.545, kg, Q6H, PRN Pain Score 1-3, Start date: 05/01/15 22:05:00, Duration: 30 day, Stop date: 05/31/15 22:04:00Note s: (Same as: [place] 325/5) Do not exceed 4gm/day of acetaminophe n. Saline Flush 10 ml, No Longer 0.9% Route: IVP, Active 2015 [facility] Drug Form: INJ, Dosing Weight 99.545, kg, Q12H, Start date: 05/01/15 21:00:00, Duration: 30 day, Stop date: 05/31/15 9:00:00Notes : Same as: BD Posiflush Sterile Zyprexa 10 mg, 1 No Longer tab, Route: Active 2015 [facility] PO, Drug form: TAB, Bedtime, Dosing Weight 99.545, kg, Start date: 05/01/15 21:00:00, Duration: 30 day, Stop date: 05/30/15 21:00:00Note s: (Same as: ZyPREXA ) Lipitor 80 mg, 2 No Longer tab, Route: Active 2015 [facility] PO, Drug form: TAB, Bedtime, Dosing Weight 99.545, kg, Start date: 05/01/15 21:00:00, Duration: 30 day, Stop date: 05/30/15 21:00:00Note s: (Same as: Lipitor) Levemir 20 unit, 0.2 No Longer mL, Route: Active 2015 [facility] SUB-Q, Drug form: INJ, Bedtime, Dosing Weight 99.545, kg, Start date: 05/01/15 21:00:00, Duration: 30 day, Stop date: 05/30/15 21:00:00Note s: Same as Levemir Do not hold insulin without contacting prescriber "single patient use only" Metformin 1,000 mg, 2 No Longer hydrochloride tab, Route: Active 2015 [facility] 1000 MG Oral PO, Drug Tablet form: TAB, BID, Dosing Weight 99.545, kg, Start date: 05/01/15 17:00:00, Duration: 30 day, Stop date: 05/31/15 9:00:00Notes : (Same as: Glucophage) Take with meal Nitroglycerin 0.5 inch, No Longer 0.02 MG/MG Route: TOP, Active 2015 [facility] Topical Drug Form: Ointment OINT, Dosing Weight 99.545, kg, TID, Start date: 05/01/15 17:00:00, Duration: 30 day, Stop date: 05/31/15 12:00:00Note s: 1 gram is approximatel y 1 inch of nitroglyceri n ointment (20 mg NTG per gram) (Same as:Nitro-Bid ) Nitroglycerin 0.4 mg, 1 Inactive 0.4 MG tab, Route: 2015 [facility] Sublingual SL, Drug Tablet form: TAB, Q5Min, Dosing Weight 99.545, kg, PRN Chest Pain, Start date: 05/01/15 16:56:00, Duration: 30 day, Stop date: 05/31/15 16:55:00 Famotidine 20 20 mg, 1 No Longer MG Oral Tablet tab, Route: Active 2015 [facility] [Pepcid] PO, Drug form: TAB, Q12H, Dosing Weight 99.545, kg, Priority: NOW, Start date: 05/01/15 16:53:00, Duration: 30 day, Stop date: 05/31/15 9:00:00Notes : (Same as: Pepcid) metoprolol 25 mg, 1 No Longer extended tab, Route: Active 2015 [facility] release PO, Drug form: ERTAB, Daily, Priority: NOW, Start date: 05/01/15 16:53:00, Duration: 30 day, Stop date: 05/31/15 9:00:00Notes : (Same as: Toprol XL) Do Not Crush Nitroglycerin 0.4 mg=1 Active 0.4 MG tab, SL, 2015 [facility] Sublingual Q5Min, PRN Tablet Chest pain, Give up to 3 doses Atropine 0.5 mg, 5 No Longer mL, Route: Active 2015 [facility] IV, Drug form: INJ, PRN, Dosing Weight 99.545, kg, PRN Bradycardia, symptomatic bradycardia less than 40 bpm, Start date: 05/01/15 15:53:00, Stop date: 05/31/15 15:52:00 Saline Flush 10 ml, Inactive 0.9% Route: IVP, 2015 [facility] Drug Form: INJ, Dosing Weight 99.545, kg, PRN, PRN Line Flush, Start date: 05/01/15 15:46:00, Duration: 30 day, Stop date: 05/31/15 15:45:00 Nitroglycerin 0.4 mg, 1 No Longer tab, Route: Active 2015 [facility] SL, Drug form: TAB, Q5Min, Dosing Weight 99.545, kg, PRN Chest Pain, Start date: 05/01/15 15:46:00, Duration: 3 doses or times, Stop date: Limited # of timesNotes: (Same as:Nitroquic k, Nitrostat) "Do Not Crush" Sublingual tablet Ondansetron 4 mg, 1 tab, No Longer Route: PO, Active 2015 [facility] Drug form: TAB, Q8H, Dosing Weight 99.545, kg, PRN Nausea & Vomiting, Start date: 05/01/15 15:46:00, Duration: 30 day, Stop date: 05/31/15 15:45:00Note s: (Same as: Zofran) NS 1,000 mL 1,000 mL, No Longer Rate: [address] [facility] ml/hr, Infuse over: 8 hr, Route: IV, Dosing Weight 99.545 kg, Total Volume: 1,000, Start date: 05/01/15 15:46:00, Duration: 30 day, Stop date: 05/31/15 15:45:00 Insulin regular 15 unit, Inactive Route: 2015 [facility] SUB-Q, ONCE, Dosing Weight 99.545, kg, Start date: 05/01/15 14:48:00, Stop date: 05/01/15 14:48:00 Sodium Chloride 1,000 mL, Inactive 0.154 MEQ/ML 1,000 ml/hr, 2015 [facility] Injectable Infuse Over: Solution 1 hr, Route: IV, ONCE, Priority: STAT, Dosing Weight 99.545 kg, Start date: 05/01/15 13:51:00, Duration: 1 doses or times, Stop date: 05/01/15 13:51:00 Insulin regular 10 unit, Inactive Route: 2015 [facility] SUB-Q, ONCE, Dosing Weight 99.545, kg, Start date: 05/01/15 13:35:00, Stop date: 05/01/15 13:35:00 Enoxaparin 40 mg, 0.4 No Longer mL, Route: Active 2015 [facility] SUB-Q, Drug form: INJ, [id number], Dosing Weight 99.545, kg, Start date: 05/01/15 13:00:00, Duration: 30 day, Stop date: 05/30/15 13:00:00Note s: (Same as: Lovenox) Insulin, 4 unit, 0.04 No Longer Aspart, Human mL, Route: Active 2015 [facility] SUB-Q, Drug form: SOLN, Bedtime, Dosing Weight 99.545, kg, PRN Blood Glucose Results, Start date: 05/01/15 12:21:00, Duration: 30 day, Stop date: 05/31/15 12:20:00Note s: Roll in palms of hands gently; Do not shake vigorously. (Same as: NovoLOG) "single patient use only" Stable for 28 days at room temperature. Expires in days from __Date Glucagon 1 mg, Route: No Longer IM, Drug Active 2015 [facility] form: PDR/INJ, PRN, Dosing Weight 99.545, kg, PRN Blood Glucose Results, Start date: 05/01/15 12:21:00, Duration: 30 day, Stop date: 05/31/15 12:20:00 Dextrose 50% 12.5 gm, 25 No Longer Syringe mL, Route: Active 2015 [facility] IVP, Drug Form: INJ, Dosing Weight 99.545, kg, PRN, PRN Blood Glucose Results, Start date: 05/01/15 12:21:00, Duration: 30 day, Stop date: 05/31/15 12:20:00 Aspirin 324 mg, Inactive Route: PO, 2015 [facility] ONCE, Dosing Weight 99.545, kg, Priority: STAT, Start date: 05/01/15 11:18:00, Stop date: 05/01/15 11:18:00 Sodium Chloride 1,000 mL, Inactive 0.154 MEQ/ML Infuse Over: 2015 [facility] Injectable 1 hr, Route: Solution IV, ONCE, Priority: STAT, Dosing Weight 99.545 kg, Start date: 05/01/15 11:18:00, Duration: 1 doses or times, Stop date: 05/01/15 11:18:00 Saline Flush 10 mL, Inactive 0.9% Route: IVP, 2015 [facility] Drug Form: INJ, Dosing Weight 99.545, kg, PRN, PRN Line Flush, Start date: 05/01/15 11:18:00, Duration: 30 day, Stop date: 05/31/15 11:17:00Note s: (Same as: BD Posiflush) Nitroglycerin 0.5 inch, Active 0.02 MG/MG TOP, TID, # 2014 [facility] Topical 3 gm, 0 Ointment Refill(s) Hydrochlorothia 1 tab, No Longer zide 25 MG / Route: PO, Active 2014 [facility] Lisinopril 20 Drug Form: MG Oral Tablet TAB, Dosing Weight 99.545, kg, Daily, Start date: 04/10/15 9:00:00, Duration: 30 day, Stop date: 05/09/15 9:00:00 Furosemide 20 20 mg, 1 Inactive MG Oral Tablet tab, Route: 2014 PO, Drug form: TAB, Daily, Dosing Weight 99.545, kg, Start date: 04/10/15 9:00:00, Duration: 30 day, Stop date: 05/09/15 9:00:00Notes : (Same as: Lasix) May cause GI upset. Give with food or milk. Aspirin 81 MG 81 mg, 1 Inactive Enteric Coated tab, Route: 2014 Tablet PO, Drug form: ECTAB, Daily, Dosing Weight 99.545, kg, Start date: 04/10/15 9:00:00, Duration: 30 day, Stop date: 05/09/15 9:00:00Notes : Do not crush or chew. (Same As: Ecotrin) Prinivil 20 mg, 1 Inactive tab, Route: 2014 [facility] PO, Drug form: TAB, Daily, Start date: 04/10/15 9:00:00, Duration: 30 day, Stop date: 05/09/15 9:00:00Notes : (Same as: Prinivil, Zestril) hydrochlorothia 25 mg, 1 Inactive zide 25 mg oral tab, Route: 2014 tablet PO, Drug form: TAB, Daily, Start date: 04/10/15 9:00:00, Duration: 30 day, Stop date: 05/09/15 9:00:00Notes : (Same as: Hydrodiuril) With food. Verapamil 120 mg, 1 No Longer tab, Route: Active 2014 PO, Drug form: TAB, BID, Dosing Weight 99.545, kg, Start date: 04/09/15 21:00:00, Duration: 30 day, Stop date: 05/09/15 9:00:00Notes : (Same As: Angelina Isoptin) "Avoid grapefruit and grapefruit juice" Zyprexa 10 mg, 1 No Longer tab, Route: Active 2014 [facility] PO, Drug form: TAB, Bedtime, Dosing Weight 99.545, kg, Start date: 04/09/15 21:00:00, Duration: 30 day, Stop date: 05/08/15 21:00:00Note s: (Same as: ZyPREXA ) insulin detemir 30 unit, 0.3 No Longer mL, Route: Active 2014 [facility] SUB-Q, Drug form: INJ, Bedtime, Dosing Weight 99.545, kg, Start date: 04/09/15 21:00:00, Duration: 30 day, Stop date: 05/08/15 21:00:00Note s: Same as Levemir Do not hold insulin without contacting prescriber "single patient use only" Prozac 40 mg, 2 No Longer cap, Route: Active 2014 [facility] PO, Drug form: CAP, Bedtime, Dosing Weight 99.545, kg, Start date: 04/09/15 21:00:00, Duration: 30 day, Stop date: 05/08/15 21:00:00Note s: (Same as: Prozac, Sarafem) Saline Flush 10 ml, No Longer 0.9% Route: IVP, [facility] 2014 [facility] Drug Form: INJ, Dosing Weight 99.545, kg, Q12H, Start date: 04/09/15 21:00:00, Duration: 30 day, Stop date: 05/09/15 9:00:00Notes : (Same as: BD Posiflush) Lipitor 80 mg, 2 No Longer tab, Route: Active 2014 [facility] PO, Drug form: TAB, Bedtime, Dosing Weight 99.545, kg, Start date: 04/09/15 21:00:00, Duration: 30 day, Stop date: 05/08/15 21:00:00Note s: (Same as: Lipitor) Enoxaparin 40 mg, 0.4 No Longer mL, Route: Active 2014 [facility] SUB-Q, Drug form: INJ, Daily, Dosing Weight 99.545, kg, Start date: 04/09/15 17:00:00, Duration: 30 day, Stop date: 05/08/15 17:00:00Note s: (Same as: Lovenox) NovoLOG PenFill 30 unit, 0.3 No Longer mL, [facility] TID-Before Meals, Dosing Weight 99.545, kg, Start date: 04/09/15 16:30:00, Duration: 30 day, Stop date: 05/09/15 11:30:00Note s: Roll in palms of hands gently; Do not shake vigorously. (Same as: NovoLOG) "single patient use only" Stable for 28 days at room temperature. Expires in days from __Date Tylenol 650 mg, 2 No Longer tab, Route: Active 2014 [facility] PO, Drug form: TAB, Q6H, Dosing Weight 99.545, kg, PRN Pain Score 1-3, Start date: 04/09/15 15:35:00, Duration: 30 day, Stop date: 05/09/15 15:34:00Note s: Do not exceed 4 gm/day. (Same as: Tylenol) Methocarbamol 750 mg, 1 No Longer tab, Route: Active 2014 [facility] PO, Drug form: TAB, Bedtime, Dosing Weight 99.545, kg, PRN Muscle Spasms, Start date: 04/09/15 15:25:00, Duration: 30 day, Stop date: 05/09/15 15:24:00Note s: (Same as:Robaxin) Insulin, 6 unit, 0.06 No Longer Aspart, Human mL, Route: Active 2014 [facility] SUB-Q, Drug form: SOLN, TID-Before Meals, Dosing Weight 99.545, kg, PRN Blood Glucose Results, Start date: 04/09/15 15:24:00, Duration: 30 day, Stop date: 05/09/15 15:23:00Note s: Roll in palms of hands gently; Do not shake vigorously. (Same as: NovoLOG) "single patient use only" Stable for 28 days at room temperature. Expires in days from __Date Glucagon 1 mg, Route: No Longer IM, Drug Active 2014 [facility] form: PDR/INJ, PRN, Dosing Weight 99.545, kg, PRN Blood Glucose Results, Start date: 04/09/15 15:24:00, Duration: 30 day, Stop date: 05/09/15 15:23:00 Dextrose 50% 12.5 gm, 25 No Longer Syringe mL, Route: [facility] 2014 [facility] IVP, Drug Form: INJ, Dosing Weight 99.545, kg, PRN, PRN Blood Glucose Results, Start date: 04/09/15 15:24:00, Duration: 30 day, Stop date: 05/09/15 15:23:00 Nitroglycerin 0.5 inch, No Longer 0.02 MG/MG Route: TOP, [facility] 2014 [facility] Topical Drug Form: Ointment OINT, Dosing Weight 99.545, kg, TID, Start date: 04/09/15 12:00:00, Duration: 30 day, Stop date: 05/09/15 6:00:00Notes : 1 gram is approximatel y 1 inch of nitroglyceri n ointment (20 mg NTG per gram) (Same as:Nitro-Bid ) Saline Flush 10 ml, No Longer 0.9% Route: IVP, [facility] [address] [facility] Drug Form: INJ, Dosing Weight 99.545, kg, PRN, PRN Line Flush, Start date: 04/09/15 10:23:00, Duration: 30 day, Stop date: 05/09/15 10:22:00Note s: (Same as: BD Posiflush) Ondansetron 4 mg, 1 tab, No Longer Route: PO, Active 2014 [facility] Drug form: TAB, Q8H, Dosing Weight 99.545, kg, PRN Nausea & Vomiting, Start date: 04/09/15 10:23:00, Duration: 30 day, Stop date: 05/09/15 10:22:00Note s: (Same as: Zofran) Aspirin 325 MG 325 mg, Inactive Oral Tablet Route: PO, 2014 [facility] Drug form: TAB, ONCE, Dosing Weight 99.545, kg, Start date: 04/09/15 10:23:00, Stop date: 04/09/15 10:23:00 Nitroglycerin 0.4 mg, 1 No Longer tab, Route: Active 2014 [facility] SL, Drug form: TAB, Q5Min, Dosing Weight 99.545, kg, PRN Chest Pain, Start date: 04/09/15 10:23:00, Duration: 3 doses or times, Stop date: Limited # of timesNotes: (Same as:Nitroquic k, Nitrostat) "Do Not Crush" Sublingual tablet Sodium Chloride 1,000 mL, No Longer 0.154 MEQ/ML Rate: [address] [facility] Injectable ml/hr, Solution Infuse over: 20 hr, Route: IV, Dosing Weight 99.545 kg, Total Volume: 1,000, Start date: 04/09/15 10:23:00, Duration: 30 day, Stop date: 05/09/15 10:22:00 Insulin regular 6 unit, Inactive Route: IV, 2014 ONCE, Dosing Weight 99.545, kg, Priority: STAT, Start date: 04/09/15 9:56:00, Stop date: 04/09/15 9:56:00 Morphine 2 mg, Route: Inactive IVP, Drug 2014 [facility] form: INJ, ONCE, Dosing Weight 99.545, kg, Priority: STAT, Start date: 04/09/15 9:55:00, Stop date: 04/09/15 9:55:00 Insulin regular 10 unit, Inactive Route: IVP, 2014 [facility] ONCE, Dosing Weight 99.545, kg, Priority: STAT, Start date: 04/09/15 9:29:00, Stop date: 04/09/15 9:29:00 Zofran 4 mg, Route: Inactive IVP, Drug 2014 [facility] form: INJ, ONCE, Dosing Weight 99.545, kg, Priority: STAT, Start date: 04/09/15 8:34:00, Stop date: 04/09/15 8:34:00 Nitroglycerin 1 inch, Inactive 0.02 MG/MG Route: TOP, 2014 [facility] Topical Drug Form: Ointment OINT, Dosing Weight 99.545, kg, ONCE, STAT, Start date: 04/09/15 8:11:00, Stop date: 04/09/15 8:11:00Notes : 1 gram is approximatel y 1 inch of nitroglyceri n ointment (20 mg NTG per gram) (Same as:Nitro-Bid ) Aspirin 324 mg, 4 Inactive tab, Route: 2014 [facility] PO, Drug form: CHEWTAB, ONCE, Dosing Weight 99.545, kg, Priority: STAT, Start date: 04/09/15 8:11:00, Stop date: 04/09/15 8:11:00Notes : Take with food. Saline Flush 10 mL, Inactive 0.9% Route: IVP, 2014 [facility] Drug Form: INJ, Dosing Weight 99.545, kg, PRN, PRN Line Flush, Start date: 04/09/15 8:11:00, Duration: 30 day, Stop date: 05/09/15 8:10:00Notes : (Same as: BD Posiflush) Sodium Chloride 500 mL, 500 Inactive 0.154 MEQ/ML ml/hr, 2014 [facility] Injectable Infuse Over: Solution 1 Hour, Route: IV, ONCE, Priority: STAT, Dosing Weight 99.545 kg, Start date: 03/14/15 14:50:00, Duration: 1 doses or times, Stop date: 03/14/15 14:50:00 Insulin regular 10 unit, Inactive Route: IVP, 2014 [facility] ONCE, Dosing Weight 99.545, kg, Priority: STAT, Start date: 03/14/15 14:49:00, Stop date: 03/14/15 14:49:00 200 ACTUAT 2 puff, Active Albuterol 0.09 INHALATION, 2014 MG/ACTUAT QID, PRN for Metered Dose wheezing, # Inhaler 75 gm, 0 Refill(s) tramadol 50 mg=1 tab, Active hydrochloride PO, BID, X 2014 50 MG Oral 15 day, # 30 Tablet tab, 0 Refill(s) Levofloxacin 750 mg=1 Active 750 MG Oral tab, PO, 2014 Tablet Daily, X 5 [Levaquin] day, # 5 tab, 0 Refill(s) Levaquin 750 mg, Inactive Route: IVPB, 2014 Drug form: SOLN, ONCE, Dosing Weight 99.545, kg, Start date: 03/14/15 14:14:00, Stop date: 03/14/15 14:14:00 Motrin 600 mg, Inactive Route: PO, 2014 Drug form: TAB, ONCE, Dosing Weight 99.545, kg, Priority: STAT, Start date: 03/14/15 13:55:00, Stop date: 03/14/15 13:55:00 Acetaminophen 1,000 mg, Inactive Route: PO, 2014 ONCE, Dosing Weight 99.545, kg, Start date: 03/14/15 12:25:00, Stop date: 03/14/15 12:25:00 Dextrose 50% 25 gm, 50 Inactive Syringe mL, Route: 2014 IVP, Drug Form: INJ, Dosing Weight 99.545, kg, PRN, PRN Blood Glucose Results, Start date: 03/14/15 12:22:00, Duration: 30 day, Stop date: 04/13/15 12:21:00 Glucagon 1 mg, Route: Inactive IM, Drug 2014 form: PDR/INJ, PRN, Dosing Weight 99.545, kg, PRN Blood Glucose Results, Start date: 03/14/15 12:22:00, Duration: 30 day, Stop date: 04/13/15 12:21:00 Ondansetron 4 mg, Route: Inactive IVP, ONCE, 2014 Dosing Weight 99.545, kg, Priority: STAT, Start date: 03/14/15 12:22:00, Stop date: 03/14/15 12:22:00 Insulin regular 9.9545 unit, Inactive Route: IV, 2014 [facility] ONCE, Dosing Weight 99.545, kg, Loading Dose, Priority: STAT, Start date: 03/14/15 12:22:00, Stop date: 03/14/15 12:22:00 Sodium Chloride 1,000 mL, Inactive 0.154 MEQ/ML 1,000 ml/hr, 2014 [facility] Injectable Infuse Over: Solution 1 hr, Route: IV, ONCE, Priority: STAT, Dosing Weight 99.545 kg, Start date: 03/14/15 12:22:00, Duration: 1 doses or times, Stop date: 03/14/15 12:22:00 Saline Flush 10 mL, Inactive 0.9% Route: IVP, 2014 [facility] Drug Form: INJ, Dosing Weight 99.545, kg, PRN, PRN Line Flush, Start date: 03/14/15 12:22:00, Duration: 30 day, Stop date: 04/13/15 12:21:00Note s: (Same as: BD Posiflush) Topamax 25 mg, 1 Inactive tab, Route: 2014 [facility] PO, Drug form: TAB, Q12H, Dosing Weight 102.273, kg, Start date: 12/20/14 21:00:00, Duration: 30 day, Stop date: 01/19/15 9:00:00Notes : (Same As: Topamax) "Do Not Crush" TriCor 145 mg, 1 Inactive tab, Route: 2014 [facility] PO, Drug form: TAB, After Dinner, Start date: 12/20/14 17:00:00, Duration: 30 day, Stop date: 01/18/15 17:00:00Note s: (Same as: Tricor) Fenofibrate 160 160 mg, 1 Inactive MG Oral Tablet tab, Route: 2014 [facility] PO, Drug form: TAB, Dinner, Dosing Weight 102.273, kg, Start date: 12/20/14 17:00:00, Duration: 30 day, Stop date: 01/18/15 17:00:00 Tylenol 650 mg, 2 Inactive tab, Route: 2014 [facility] PO, Drug form: TAB, Q6H, Dosing Weight 102.273, kg, PRN Headache 1-5, Start date: 12/20/14 9:15:00, Duration: 30 day, Stop date: 01/19/15 9:14:00Notes : Do not exceed 4 gm/day. (Same as: Tylenol) Prinivil 20 mg, 1 No Longer tab, Route: Active 2014 [facility] PO, Drug form: TAB, Daily, Start date: 12/19/14 9:00:00, Duration: 30 day, Stop date: 01/17/15 9:00:00Notes : (Same as: Prinivil, Zestril) hydrochlorothia 25 mg, 1 No Longer zide 25 mg oral tab, Route: Active 2014 [facility] tablet PO, Drug form: TAB, Daily, Start date: 12/19/14 9:00:00, Duration: 30 day, Stop date: 01/17/15 9:00:00Notes : (Same as: Hydrodiuril) With food. Furosemide 20 20 mg, 1 No Longer MG Oral Tablet tab, Route: Active 2014 [facility] PO, Drug form: TAB, Daily, Dosing Weight 104.545, kg, Start date: 12/19/14 9:00:00, Duration: 30 day, Stop date: 01/17/15 9:00:00Notes : (Same as: Lasix) May cause GI upset. Give with food or milk. Hydrochlorothia 1 tab, No Longer zide 25 MG / Route: PO, Active 2014 [facility] Lisinopril 20 Drug Form: MG Oral Tablet TAB, Dosing Weight 104.545, kg, Daily, Start date: 12/19/14 9:00:00, Duration: 30 day, Stop date: 01/17/15 9:00:00 Aspirin 81 MG 81 mg, 1 No Longer Enteric Coated tab, Route: Active 2014 [facility] Tablet PO, Drug form: ECTAB, Daily, Dosing Weight 104.545, kg, Start date: 12/19/14 9:00:00, Duration: 30 day, Stop date: 01/17/15 9:00:00Notes : Do not crush or chew. (Same As: Ecotrin) Aspirin 325 MG 325 mg, No Longer Oral Tablet Route: PO, Active 2014 [facility] Drug form: TAB, Daily, Dosing Weight 104.545, kg, Start date: 12/19/14 9:00:00, Duration: 30 day, Stop date: 01/17/15 9:00:00 Zyprexa 10 mg, 1 No Longer tab, Route: Active 2014 [facility] PO, Drug form: TAB, Bedtime, Dosing Weight 104.545, kg, Start date: 12/18/14 21:00:00, Duration: 30 day, Stop date: 01/16/15 21:00:00Note s: (Same as: ZyPREXA ) insulin detemir 30 unit, 0.3 No Longer mL, Route: Active 2014 [facility] SUB-Q, Drug form: INJ, Bedtime, Dosing Weight 104.545, kg, Start date: 12/18/14 21:00:00, Duration: 30 day, Stop date: 01/16/15 21:00:00Note s: Same as Levemir Do not hold insulin without contacting prescriber "single patient use only" Prozac 40 mg, 2 No Longer cap, Route: Active 2014 [facility] PO, Drug form: CAP, Bedtime, Dosing Weight 104.545, kg, Start date: 12/18/14 21:00:00, Duration: 30 day, Stop date: 01/16/15 21:00:00Note s: (Same as: Prozac, Sarafem) Lipitor 80 mg, 2 No Longer tab, Route: Active 2014 [facility] PO, Drug form: TAB, Bedtime, Dosing Weight 104.545, kg, Start date: 12/18/14 21:00:00, Duration: 30 day, Stop date: 01/16/15 21:00:00Note s: (Same as: Lipitor) Saline Flush 10 ml, No Longer 0.9% Route: IVP, Active 2014 [facility] Drug Form: INJ, Dosing Weight 104.545, kg, Q12H, Start date: 12/18/14 21:00:00, Duration: 30 day, Stop date: 01/17/15 9:00:00Notes : (Same as: BD Posiflush) Verapamil 120 mg, 1 No Longer tab, Route: Active 2014 [facility] PO, Drug form: TAB, BID, Dosing Weight 104.545, kg, Start date: 12/18/14 17:00:00, Duration: 30 day, Stop date: 01/17/15 9:00:00Notes : (Same As: Calan, Isoptin) "Avoid grapefruit and grapefruit juice" Metformin 1,000 mg, 2 No Longer hydrochloride tab, Route: Active 2014 1000 MG Oral PO, Drug Tablet form: TAB, BID, Dosing Weight 104.545, kg, Start date: 12/18/14 17:00:00, Duration: 30 day, Stop date: 01/17/15 9:00:00Notes : (Same as: Glucophage) Take with meal atropine 0.5 mg, 5 No Longer mL, Route: Active 2014 [facility] IVP, Drug form: INJ, PRN, PRN Bradycardia, Start date: 12/18/14 16:49:00, Duration: 30 day, Stop date: 01/17/15 16:48:00 NovoLOG PenFill 40 unit, 0.4 No Longer mL, Route: Active 2014 [facility] SUB-Q, Drug form: SOLN, TID-Before Meals, Dosing Weight 104.545, kg, Start date: 12/18/14 16:30:00, Stop date: 01/17/15 11:30:00Note s: Roll in palms of hands gently; Do not shake vigorously. (Same as: NovoLOG) "single patient use only" Stable for 28 days at room temperature. Expires in days from __Date Sumatriptan 50 50 mg, 2 Inactive MG Oral Tablet tab, Route: 2014 [Imitrex] PO, Drug form: TAB, ONCE, Dosing Weight 104.545, kg, PRN Headache 1-5, Start date: 12/18/14 16:05:00Note s: (Same As: Imitrex) Methocarbamol 750 mg, 1 No Longer tab, Route: Active 2014 [facility] PO, Drug form: TAB, Bedtime, Dosing Weight 104.545, kg, PRN Muscle Spasms, Start date: 12/18/14 16:04:00, Duration: 30 day, Stop date: 01/17/15 16:03:00Note s: (Same as:Robaxin) Saline Flush 10 ml, No Longer 0.9% Route: IVP, Active 2014 [facility] Drug Form: INJ, Dosing Weight 104.545, kg, PRN, PRN Line Flush, Start date: 12/18/14 14:49:00, Duration: 30 day, Stop date: 01/17/15 14:48:00Note s: (Same as: BD Posiflush) Nitroglycerin 0.4 mg, 1 No Longer tab, Route: Active 2014 [facility] SL, Drug form: TAB, Q5Min, Dosing Weight 104.545, kg, PRN Chest Pain, Start date: 12/18/14 14:49:00, Duration: 3 doses or times, Stop date: Limited # of timesNotes: (Same as:Nitroquic k, Nitrostat) "Do Not Crush" Sublingual tablet Insulin, 2 unit, 0.02 Inactive Aspart, Human mL, Route: 2014 [facility] SUB-Q, Drug form: SOLN, TID-Before Meals, Dosing Weight 104.545, kg, PRN Blood Glucose Results, Start date: 12/18/14 14:48:00, Duration: 30 day, Stop date: 01/17/15 14:47:00Note s: Roll in palms of hands gently; Do not shake vigorously. (Same as: NovoLOG) "single patient use only" Stable for 28 days at room temperature. Expires in days from __Date Dextrose 50% 12.5 gm, 25 Inactive Syringe mL, Route: 2014 [facility] IVP, Drug Form: INJ, Dosing Weight 104.545, kg, PRN, PRN Blood Glucose Results, Start date: 12/18/14 14:48:00, Duration: 30 day, Stop date: 01/17/15 14:47:00 Glucagon 1 mg, Route: Inactive IM, Drug 2014 form: PDR/INJ, PRN, Dosing Weight 104.545, kg, PRN Blood Glucose Results, Start date: 12/18/14 14:48:00, Duration: 30 day, Stop date: 01/17/15 14:47:00 Sumatriptan 50 50 mg=1 tab, Active MG Oral Tablet PO, ONCE, 2014 [Imitrex] PRN Headache, may repeat one time after 2 hoursSpecial Instructions : may repeat one time after 2 hours verapamil 120 120 mg=1 Active mg oral tablet tab, PO, 2014 BID, 0 Refill(s) atorvastatin 80 80 mg=1 tab, Active MG Oral Tablet PO, Bedtime, 2014 [Lipitor] 0 Refill(s) Furosemide 20 20 mg=1 tab, Active MG Oral Tablet PO, Daily, 0 2014 Refill(s) Tylenol 650 mg, Inactive Route: PO, 2014 ONCE, Dosing Weight 104.545, kg, Start date: 12/18/14 13:48:00, Stop date: 12/18/14 13:48:00 Insulin regular 6 unit, Inactive Route: IV, 2014 ONCE, Dosing Weight 104.545, kg, Start date: 12/18/14 13:35:00, Stop date: 12/18/14 13:35:00 Insulin, 4 unit, 0.04 No Longer Aspart, Human mL, Route: Active 2014 [facility], Drug form: SOLN, PRN, Dosing Weight 104.545, kg, PRN Blood Glucose Results, Start date: 12/18/14 11:00:00, Duration: 30 day, Stop date: 01/17/15 10:59:00Note s: Roll in palms of hands gently; Do not shake vigorously. (Same as: NovoLOG) "single patient use only" Stable for 28 days at room temperature. Expires in days from __Date Insulin, 1 unit, 0.01 No Longer Aspart, Human mL, Route: Active 2014 [facility] Drug form: SOLN, PRN, Dosing Weight 104.545, kg, PRN Blood Glucose Results, Start date: 12/18/14 10:59:00, Duration: 30 day, Stop date: 01/17/15 10:58:00Note s: Roll in palms of hands gently; Do not shake vigorously. (Same as: NovoLOG) "single patient use only" Stable for 28 days at room temperature. Expires in days from __Date Sodium Chloride 500 mL, 500 Inactive 0.154 MEQ/ML ml/hr, 2014 [facility] Injectable Infuse Over: Solution 1 hr, Route: IV, ONCE, Priority: STAT, Dosing Weight 104.545 kg, Start date: 12/18/14 9:51:00, Duration: 1 doses or times, Stop date: 12/18/14 9:51:00 Aspirin 324 mg, 4 Inactive tab, Route: 2014 [facility] PO, Drug form: CHEWTAB, ONCE, Dosing Weight 104.545, kg, Priority: STAT, Start date: 12/18/14 9:08:00, Stop date: 12/18/14 9:08:00Notes : Take with food. Nitroglycerin 1 inch, Inactive 12/18[facility] 0.02 MG/MG Route: [facility], 2014 [facility] Topical Drug Form: Ointment OINT, Dosing Weight 104.545, kg, ONCE, STAT, Start date: 12/18/14 9:08:00, Stop date: 12/18/14 9:08:00Notes : 1 gram is approximatel y 1 inch of nitroglyceri n ointment (20 mg NTG per gram) (Same as:Nitro-Bid ) Saline Flush 10 mL, Inactive 0.9% Route: IVP, 2014 [facility] Drug Form: INJ, Dosing Weight 104.545, kg, PRN, PRN Line Flush, Start date: 12/18/14 9:08:00, Duration: 30 day, Stop date: 01/17/15 9:07:00Notes : Same as: BD Posiflush Sterile Insulin regular 10 unit, 0.1 Inactive mL, Route: 2014 [facility] IVP, Drug form: INJ, ONCE, Dosing Weight 104.545, kg, Priority: STAT, Start date: 12/18/14 9:07:00, Stop date: 12/18/14 9:07:00Notes : (Same as: Humulin R and NovoLIN R) (Do not shake) Magnesium Oxide 400 mg, 1 Inactive tab, Route: 2014 [facility] PO, Drug form: TAB, ONCE, Dosing Weight 106.364, kg, Priority: NOW, Start date: 08/04/14 12:40:00, Stop date: 08/04/14 12:40:00Note s: (Same as: Mag-Ox 400) Magnesium oxide [id number] elemental magnesium Dose=____mg magnesium oxide (___mg elemental magnesium) Magnesium 2 gm, 50 mL, Inactive Sulfate Route: IVPB, 2014 [facility] Drug form: INJ, ONCE, Dosing Weight 106.364, kg, Total dose=2 gm, Priority: STAT, Start date: 08/04/14 12:40:00, Duration: 1 doses or times, Stop date: 08/04/14 12:40:00 Aspirin 81 MG 81 mg=1 tab, Active Enteric Coated PO, Daily, [address] [facility] Tablet Refill(s) Nitroglycerin 0.4 mg, 1 Inactive tab, Route: 2014 [facility] SL, Drug form: TAB, Q5Min, Dosing Weight 106.364, kg, PRN Chest Pain, Start date: 08/04/14 12:31:00, Duration: 3 doses or times, Stop date: Limited # of timesNotes: (Same as:Nitroquic k, Nitrostat) "Do Not Crush" Sublingual tablet clopidogrel 300 mg, 1 Inactive tab, Route: 2014 [facility] PO, Drug form: TAB, ONCE, Dosing Weight 106.364, kg, Start date: 08/03/14 14:18:00, Duration: 1 doses or times, Stop date: 08/03/14 14:18:00Note s: ( Same as: Plavix) Zocor 40 mg, 1 No Longer tab, Route: Active 2014 [facility] PO, Drug form: TAB, Bedtime, Dosing Weight 106.364, kg, Start date: 08/02/14 21:00:00, Duration: 30 day, Stop date: 08/31/14 21:00:00Note s: (Same as: Zocor) Zyprexa 10 mg, 1 No Longer tab, Route: Active 2014 [facility] PO, Drug form: TAB, Bedtime, Dosing Weight 106.364, kg, Start date: 08/02/14 21:00:00, Duration: 30 day, Stop date: 08/31/14 21:00:00Note s: (Same as: ZyPREXA ) Prozac 40 mg, 2 No Longer cap, Route: Active 2014 [facility] PO, Drug form: CAP, Bedtime, Dosing Weight 106.364, kg, Start date: 08/02/14 21:00:00, Duration: 30 day, Stop date: 08/31/14 21:00:00Note s: (Same as: Prozac, Sarafem) Metformin 1,000 mg, 2 No Longer hydrochloride tab, Route: Active 2014 [facility] 1000 MG Oral PO, Drug Tablet form: TAB, TID, Dosing Weight 106.364, kg, Start date: 08/02/14 9:00:00, Duration: 30 day, Stop date: 08/31/14 17:00:00Note s: (Same as: Glucophage) Take with meal Hydrochlorothia 1 tab, No Longer zide 25 MG / Route: PO, Active 2014 [facility] Lisinopril 20 Drug Form: MG Oral Tablet TAB, Dosing Weight 106.364, kg, Daily, Start date: 08/02/14 9:00:00, Duration: 30 day, Stop date: 08/31/14 9:00:00 Furosemide 40 40 mg, 1 No Longer MG Oral Tablet tab, Route: Active 2014 [facility] [Lasix] PO, Drug form: TAB, Daily, Dosing Weight 106.364, kg, Start date: 08/02/14 9:00:00, Duration: 30 day, Stop date: 08/31/14 9:00:00 Aspirin 81 MG 81 mg, 1 No Longer Enteric Coated tab, Route: Active 2014 [facility] Tablet PO, Drug form: ECTAB, Daily, Dosing Weight 106.364, kg, Start date: 08/02/14 9:00:00, Duration: 30 day, Stop date: 08/31/14 9:00:00Notes : Do not crush or chew. (Same As: Ecotrin) NovoLOG PenFill 30 unit, 0.3 No Longer mL, Route: Active 2014 [facility] SUB-Q, Drug form: SOLN, TID-Before Meals, Dosing Weight 106.364, kg, Start date: 08/02/14 7:30:00, Duration: 30 day, Stop date: 08/31/14 16:30:00Note s: Roll in palms of hands gently; Do not shake vigorously. (Same as: NovoLOG) "single patient use only" Stable for 28 days at room temperature. Expires in days from __Date Xopenex 0.63 mg, 3 No Longer mL, Route: Active 2014 [facility] NEB, Drug form: SOLN, PRN, Dosing Weight 106.364, kg, PRN Respiratory Protocol, Start date: 08/02/14 7:16:00, Duration: 30 day, Stop date: 09/01/14 7:15:00Notes : SEE RT DOCUMENTATIO N (Same as:Xopenex) Non-Formular y insulin detemir 40 unit, 0.4 No Longer mL, Route: Active 2014 [facility]-Q, Drug form: INJ, Bedtime, Dosing Weight 106.364, kg, Start date: 08/01/14 22:00:00, Stop date: 08/30/14 21:00:00Note s: Same as Levemir Do not hold insulin without contacting prescriber "single patient use only" Tylenol 650 mg, 2 No Longer tab, Route: Active 2014 [facility] PO, Drug form: TAB, Q4H, Dosing Weight 106.364, kg, PRN Other -See Comment, Start date: 08/01/14 21:35:00, Stop date: 08/31/14 21:34:00, as needed for headacheNote s: Do not exceed 4 gm/day. (Same as: Tylenol) Methocarbamol 750 mg, 1 No Longer tab, Route: Active 2014 [facility] PO, Drug form: TAB, Bedtime, Dosing Weight 106.364, kg, PRN Other -See Comment, Start date: 08/01/14 21:33:00, Duration: 30 day, Stop date: 08/31/14 21:32:00, as needed for muscle spasmNotes: (Same as:Robaxin) nitroglycerin 0.4 mg, 1 No Longer 0.4 mg tab, Route: Active 2014 [facility] sublingual SL, Drug tablet form: TAB, Q5Min, PRN Chest Pain, Start date: 08/01/14 21:18:00, Duration: 30 day, Stop date: 08/31/14 21:17:00Note s: (Same as:Nitroquic k, Nitrostat) "Do Not Crush" Sublingual tablet atropine 0.5 mg, 5 No Longer mL, Route: Active 2014 [facility] IVP, Drug form: INJ, PRN, PRN Bradycardia, Start date: 08/01/14 21:18:00, Duration: 30 day, Stop date: 08/31/14 21:17:00 Saline Flush 10 ml, No Longer 0.9% Route: IVP, Active 2014 [facility] Drug Form: INJ, Dosing Weight 106.364, kg, Q12H, Start date: 08/01/14 21:00:00, Duration: 30 day, Stop date: 08/31/14 9:00:00Notes : (Same as: BD Posiflush) Dextrose 50% 25 gm, 50 No Longer Syringe mL, Route: Active 2014 [facility] IVP, Drug Form: INJ, Dosing Weight 106.364, kg, PRN, PRN Blood Glucose Results, Start date: 08/01/14 18:46:00, Duration: 30 day, Stop date: 08/31/14 18:45:00 Glucagon 1 mg, Route: No Longer IM, Drug Active 2014 [facility] form: PDR/INJ, PRN, Dosing Weight 106.364, kg, PRN Blood Glucose Results, Start date: 08/01/14 18:46:00, Duration: 30 day, Stop date: 08/31/14 18:45:00 Insulin, 2 unit, 0.02 No Longer Aspart, Human mL, Route: Active 2014 [facility] SUB-Q, Drug form: SOLN, TID-Before Meals, Dosing Weight 106.364, kg, PRN Blood Glucose Results, Start date: 08/01/14 18:46:00, Duration: 30 day, Stop date: 08/31/14 18:45:00Note s: Roll in palms of hands gently; Do not shake vigorously. (Same as: NovoLOG) "single patient use only" Stable for 28 days at room temperature. Expires in days from __Date Saline Flush 10 ml, No Longer 0.9% Route: IVP, Active 2014 Drug Form: INJ, Dosing Weight 106.364, kg, PRN, PRN Line Flush, Start date: 08/01/14 18:46:00, Duration: 30 day, Stop date: 08/31/14 18:45:00Note s: (Same as: BD Posiflush) Nitroglycerin 0.4 mg, 1 Inactive tab, Route: 2014 , Drug form: TAB, Q5Min, Dosing Weight 106.364, kg, PRN Chest Pain, Start date: 08/01/14 18:46:00, Duration: 3 doses or times, Stop date: Limited # of timesNotes: (Same as:Nitroquic k, Nitrostat) "Do Not Crush" Sublingual tablet 3 ML insulin 30 unit, Active detemir 100 SUB-Q, 2014 UNT/ML Bedtime, 0 Prefilled Refill(s) Syringe [Levemir] Fluoxetine 40 40 mg=1 cap, Active MG Oral Capsule PO, Bedtime, 2014 [Prozac] # 30 cap, 0 Refill(s) olanzapine 10 10 mg=1 tab, Active MG Oral Tablet PO, Bedtime, 2014 [Zyprexa] # 30 tab, 0 Refill(s) Simvastatin 40 40 mg=1 tab, Active MG Oral Tablet PO, Bedtime, 2014 [Zocor] # 30 tab, 0 Refill(s) 3 ML Insulin, 30 unit, Active Aspart, Human SUB-Q, 2014 [facility] 100 UNT/ML TID-Before Prefilled Meals, # 3 Syringe mL, 0 [NovoLog] Refill(s) Metformin 1,000 mg=1 Active hydrochloride tab, PO, 2014 [facility] 1000 MG Oral TID, # 30 Tablet tab, 0 Refill(s) Methocarbamol 750 mg=1 Active 750 MG Oral tab, PO, 2014 [facility] Tablet Bedtime, PRN [Robaxin] Muscle Spasms, # 42 tab, 0 Refill(s) Furosemide 40 40 mg=1 tab, Active MG Oral Tablet PO, Daily, # 2015 [facility] [Lasix] 30 tab, 0 Refill(s) Tylenol 975 mg, Inactive Route: PO, 2014 [facility] Drug form: TAB, ONCE, Dosing Weight 106.364, kg, Priority: STAT, Start date: 08/01/14 16:17:00, Stop date: 08/01/14 16:17:00 Aspirin 81 MG 324 mg, Inactive Chewable Tablet Route: PO, 2014 [facility] ONCE, Dosing Weight 106.364, kg, Start date: 08/01/14 15:09:00, Stop date: 08/01/14 15:09:00 insulin detemir 10 unit, Active 100 UNT/ML SUB-Q, QPM, 2014 [facility] Injectable # 10 ml, 0 Solution Refill(s) [Levemir] Acetaminophen 1 tab, Inactive 325 MG / Route: PO, 2014 [facility] Hydrocodone Drug Form: Bitartrate 5 MG TAB, Dosing Oral Tablet Weight [[place] 5/325] 99.091, kg, ONCE, STAT, Start date: 05/05/14 22:40:00, Stop date: 05/05/14 22:40:00 Insulin, 10 unit, Inactive Regular, Pork Route: IVP, 2014 [facility] ONCE, Dosing Weight 99.091, kg, Priority: STAT, Start date: 05/05/14 22:37:00, Stop date: 05/05/14 22:37:00 Sodium Chloride 1,000 mL, Inactive 0.154 MEQ/ML 1,000 ml/hr, 2014 [facility] Injectable Infuse Over: Solution 1 Hour, Route: IV, ONCE, Priority: STAT, Dosing Weight 99.091 kg, Start date: 05/05/14 22:37:00, Duration: 1 doses or times, Stop date: 05/05/14 22:37:00 Sodium Chloride 1,000 mL, Inactive 0.154 MEQ/ML 1,000 ml/hr, 2014 [facility] Injectable Infuse Over: Solution 1 Hour, Route: IV, ONCE, Priority: STAT, Dosing Weight 99.091 kg, Start date: 05/05/14 21:20:00, Duration: 1 doses or times, Stop date: 05/05/14 21:20:00 Saline Flush 10 ml, Inactive 0.9% Route: IVP, 2013 [facility] Drug Form: INJ, Dosing Weight 100, kg, Q12H, Start date: 03/06/14 21:00:00, Duration: 30 day, Stop date: 04/05/14 9:00:00Notes : Same as: BD Posiflush Sterile Nitroglycerin 0.5 inch, Inactive 0.02 MG/MG Route: TOP, 2013 [facility] Topical Drug Form: Ointment OINT, Dosing Weight 100, kg, TID, Start date: 03/06/14 18:00:00, Duration: 30 day, Stop date: 04/05/14 12:00:00Note s: 1 gram is approximatel y 1 inch of nitroglyceri n ointment (20 mg NTG per gram) (Same as:Nitro-Bid ) Enoxaparin 40 mg, 0.4 Inactive mL, Route: 2013 [facility] SUB-Q, Drug form: INJ, [id number], Dosing Weight 100, kg, Start date: 03/06/14 17:00:00, Duration: 30 day, Stop date: 04/04/14 17:00:00Note s: (Same as: Lovenox) fluconazole 100 100 mg, Active MH mg oral tablet Daily, [address] [facility] Refill(s) Insulin, 5 unit, 0.05 Inactive Aspart, Human mL, Route: 2013 [facility] SUB-Q, Drug form: SOLN, TID-Before Meals, Dosing Weight 100, kg, PRN Blood Glucose Results, Start date: 03/06/14 14:39:00, Duration: 30 day, Stop date: 04/05/14 14:38:00Note s: Roll in palms of hands gently; Do not shake vigorously. (Same as: NovoLOG) "single patient use only" Stable for 28 days at room temperature. Expires in days from __Date Dextrose 50% 25 gm, 50 Inactive Syringe mL, Route: 2013 [facility] IVP, Drug Form: INJ, Dosing Weight 100, kg, PRN, PRN Blood Glucose Results, Start date: 03/06/14 14:39:00, Duration: 30 day, Stop date: 04/05/14 14:38:00 Glucagon 1 mg, Route: Inactive IM, Drug 2013 [facility] form: PDR/INJ, PRN, Dosing Weight 100, kg, PRN Blood Glucose Results, Start date: 03/06/14 14:39:00, Duration: 30 day, Stop date: 04/05/14 14:38:00 Saline Flush 10 ml, Inactive 0.9% Route: IVP, 2013 [facility] Drug Form: INJ, Dosing Weight 100, kg, PRN, PRN Line Flush, Start date: 03/06/14 14:38:00, Duration: 30 day, Stop date: 04/05/14 14:37:00Note s: Same as: BD Posiflush Sterile Morphine 2 mg, 1 mL, Inactive Route: IVP, 2013 [facility] Drug form: INJ, Q15Min, Dosing Weight 100, kg, PRN Chest Pain, Start date: 03/06/14 14:38:00, Duration: 2 doses or times, Stop date: Limited # of timesNotes: (Same as:MORPhine Sulfate) Nitroglycerin 0.4 mg, 1 Inactive tab, Route: 2013 [facility] SL, Drug form: TAB, Q5Min, Dosing Weight 100, kg, PRN Chest Pain, Start date: 03/06/14 14:38:00, Duration: 3 doses or times, Stop date: Limited # of timesNotes: (Same as:Nitroquic k, Nitrostat) "Do Not Crush" Sublingual tablet aspirin 325 mg 325 mg, Inactive tablet Route: PO, 2013 [facility] Drug form: TAB, ONCE, Dosing Weight 100, kg, Start date: 03/06/14 14:38:00, Stop date: 03/06/14 14:38:00 Morphine 2 mg, Route: Inactive IVP, ONCE, 2013 [facility] Dosing Weight 100, kg, Start date: 03/06/14 10:45:00, Stop date: 03/06/14 10:45:00 Sodium Chloride 500 mL, 500 Inactive 0.154 MEQ/ML ml/hr, 2013 [facility] Injectable Infuse Over: Solution 1 Hour, Route: IV, ONCE, Priority: STAT, Dosing Weight 100 kg, Start date: 03/06/14 8:54:00, Duration: 1 doses or times, Stop date: 03/06/14 8:54:00 Insulin, 10 unit, Inactive Regular, Pork Route: IV, 2013 [facility] ONCE, Dosing Weight 100, kg, Priority: STAT, Start date: 03/06/14 8:54:00, Stop date: 03/06/14 8:54:00 aspirin 324 mg, Inactive Route: PO, 2013 [facility] ONCE, Dosing Weight 100, kg, Priority: STAT, Start date: 03/06/14 8:06:00, Stop date: 03/06/14 8:06:00 Morphine 2 mg, Route: Inactive IVP, ONCE, 2013 [facility] Dosing Weight 100, kg, Priority: STAT, Start date: 03/06/14 8:06:00, Stop date: 03/06/14 8:06:00 Ondansetron 4 mg, Route: Inactive IVP, ONCE, 2013 [facility] Dosing Weight 100, kg, Priority: STAT, Start date: 03/06/14 8:06:00, Stop date: 03/06/14 8:06:00 Nitroglycerin 1 inch, Inactive 0.02 MG/MG Route: TOP, 2013 [facility] Topical Dosing Ointment Weight 100, kg, ONCE, STAT, Start date: 03/06/14 8:06:00, Stop date: 03/06/14 8:06:00 Saline Flush 10 mL, Inactive 0.9% Route: IVP, 2013 [facility] Drug Form: INJ, Dosing Weight 100, kg, PRN, PRN Line Flush, Start date: 03/06/14 8:06:00, Duration: 30 day, Stop date: 04/05/14 8:05:00Notes : (Same as: BD Posiflush) Seroquel 300 mg, 3 No Longer tab, Route: Active 2013 [facility] PO, Drug form: TAB, Bedtime, Dosing Weight 100.227, kg, Start date: 02/04/14 21:00:00, Duration: 30 day, Stop date: 03/05/14 21:00:00Note s: (Same as: SEROquel) Lipitor 20 mg, 2 No Longer tab, Route: Active 2013 [facility] PO, Drug form: TAB, Bedtime, Dosing Weight 100.227, kg, Start date: 02/04/14 21:00:00, Duration: 30 day, Stop date: 03/05/14 21:00:00Note s: (Same As: Lipitor) Humulin 70/30 20 unit, Inactive Route: 2013 [facility] SUB-Q, BID, Dosing Weight 100.227, kg, Start date: 02/04/14 9:00:00, Duration: 30 day, Stop date: 03/05/14 17:00:00 gabapentin 300 300 mg, 1 No Longer MG Oral Capsule cap, Route: Active 2013 [facility] PO, Drug form: CAP, TID, Dosing Weight 100.227, kg, Start date: 02/04/14 9:00:00, Duration: 30 day, Stop date: 03/05/14 17:00:00Note s: (Same as: Neurontin) Escitalopram 20 mg, 1 No Longer tab, Route: Active 2013 [facility] PO, Drug form: TAB, Daily, Dosing Weight 100.227, kg, Start date: 02/04/14 9:00:00, Duration: 30 day, Stop date: 03/05/14 9:00:00Notes : (Same as: Lexapro) Buspirone 20 mg, 2 No Longer tab, Route: Active 2013 [facility] PO, Drug form: TAB, BID, Dosing Weight 100.227, kg, Start date: 02/04/14 9:00:00, Stop date: 03/05/14 17:00:00Note s: (Same As: BuSpar) Aspirin 81 MG 81 mg, 1 No Longer Enteric Coated tab, Route: 2013 [facility] Tablet PO, Drug form: ECTAB, Daily, Dosing Weight 100.227, kg, Start date: 02/04/14 9:00:00, Duration: 30 day, Stop date: 03/05/14 9:00:00Notes : Do not crush or chew. (Same As: Ecotrin) Naprelan '375' 375 mg, 1 No Longer tab, Route: 2013 [facility] PO, Drug form: TAB, Daily, Dosing Weight 100.227, kg, Start date: 02/04/14 9:00:00, Duration: 30 day, Stop date: 03/05/14 9:00:00Notes : (Same as: Naprosyn) Take with food. heparin, 5,000 unit, No Longer porcine 1 mL, Route: 2013 [facility] SUB-Q, Drug form: INJ, Q12H, Dosing Weight 100.227, kg, Start date: 02/04/14 9:00:00, Duration: 30 day, Stop date: 03/05/14 21:00:00Note s: porcine heparin Skelaxin 800 mg, 1 No Longer tab, Route: 2013 [facility] PO, Drug form: TAB, BID, Dosing Weight 100.227, kg, Start date: 02/04/14 9:00:00, Duration: 30 day, Stop date: 03/05/14 17:00:00Note s: (Same as: Skelaxin) NovoLOG Mix 25 unit, No Longer 70/30 FlexPen 0.25 mL, 2013 [facility] Route: SUB-Q, Drug form: INJ, BID-Meals, Start date: 02/04/14 8:00:00, Stop date: 03/05/14 17:00:00Note s: Roll in palms of hands gently; Do not shake vigorously. (Same as: NovoLOG Mix) "single patient use only" Stable for 14 days at room temperature Expires in days from __Date Acetaminophen 1 tab, No Longer 02/04/ 300 MG / Route: PO, Active 2013 [facility] Codeine Drug Form: Phosphate 30 MG TAB, Dosing Oral Tablet Weight 100.227, kg, Q6H, PRN Pain Score 4-6, Start date: 02/04/14 6:06:00, Duration: 30 day, Stop date: 03/06/14 6:05:00Notes : Do not exceed 4gm/day of acetaminophe n. (Same as: Tylenol with Codeine # 3) Atropine 0.4 mg, 1 No Longer 02/04/ mL, Route: Active 2013 [facility] IVP, Drug form: INJ, PRN, Dosing Weight 100.227, kg, PRN Bradycardia, Start date: 02/03/14 22:20:00, Stop date: 03/05/14 21:19:00, HR less than 40 Nitroglycerin 0.4 mg, 1 No Longer 02/04/ 0.4 MG tab, Route: Active 2013 [facility] Sublingual SL, Drug Tablet form: TAB, Q5Min, Dosing Weight 100.227, kg, PRN Chest Pain, Start date: 02/03/14 22:19:00, Duration: 30 day, Stop date: 03/05/14 21:18:00Note s: (Same as:Nitroquic k, Nitrostat) "Do Not Crush" Sublingual tablet Insulin, 8 unit, 0.08 No Longer Aspart, Human mL, Route: Active 2013 [facility] SUB-Q, Drug form: SOLN, Sliding Scale, Dosing Weight 99.545, kg, PRN Blood Glucose Results, Start date: 02/03/14 21:05:00, Duration: 30 day, Stop date: 03/05/14 20:04:00Note s: Roll in palms of hands gently; Do not shake vigorously. (Same as: NovoLOG) "single patient use only" Stable for 28 days at room temperature. Expires in days from __Date Dextrose 50% 25 gm, 50 No Longer 02/04/ Syringe mL, Route: Active 2013 [facility] IVP, Drug Form: INJ, Dosing Weight 99.545, kg, PRN, PRN Blood Glucose Results, Start date: 02/03/14 21:05:00, Duration: 30 day, Stop date: 03/05/14 20:04:00 Glucagon 1 mg, Route: No Longer IM, Drug Active 2013 [facility] form: PDR/INJ, PRN, Dosing Weight 99.545, kg, PRN Blood Glucose Results, Start date: 02/03/14 21:05:00, Duration: 30 day, Stop date: 03/05/14 20:04:00 Acetaminophen 1 tab, No Longer 325 MG / Route: PO, Active 2013 [facility] Hydrocodone Drug Form: Bitartrate 5 MG TAB, Dosing Oral Tablet Weight 99.545, kg, Q4H, PRN Pain Score 1-3, Start date: 02/03/14 21:04:00, Duration: 30 day, Stop date: 03/05/14 21:03:00Note s: (Same as: [place] 325/5) Do not exceed 4gm/day of acetaminophe n. Trazodone 100 mg=1 Active Hydrochloride tab, PO, 2013 [facility] 100 MG Oral Bedtime Tablet fluconazole 100 100 mg=1 No Longer mg oral tablet tab, PO, Active 2013 Daily cyclobenzaprine 10 mg=1 tab, Active MH 10 mg oral PO, TID, as 2013 [facility] tablet needed for muscle spasm Furosemide 20 20 mg=1 tab, Active MH MG Oral Tablet PO, Daily 2013 [facility] carisoprodol 350 mg=1 No Longer MH 350 mg oral tab, PO, Active 2013 [facility] tablet TID, Muscle Spasms predniSONE 10 10 mg=1 tab, Active MH mg oral tablet PO, Daily 2013 [facility] meclizine 25 mg 25 mg=1 tab, Active oral tablet PO, BID 2013 [facility] gabapentin 300 300 mg=1 Active MH MG Oral Capsule cap, PO, TID 2013 [facility] Acetaminophen 1 tab, PO, Active MH 300 MG / Q6H, pain 2013 [facility] Codeine Phosphate 30 MG Oral Tablet busPIRone 10 mg 10 mg=1 tab, Active oral tablet PO, BID 2013 [facility] Humulin 70/30 20 unit, Active SUB-Q, BID 2013 aspirin 325 mg 325 mg, 1 Inactive tablet tab, Route: 2013 [facility] PO, Drug form: TAB, ONCE, Dosing Weight 99.545, kg, Priority: STAT, Start date: 02/03/14 16:38:00, Stop date: 02/03/14 16:38:00Note s: Take with food. Sodium Chloride 1,000 mL, Inactive 0.154 MEQ/ML 1000 ml/hr, 2013 [facility] Injectable Infuse Over: Solution 1 hr, Route: IV, 1,000, Drug form: INJ, ONCE, Priority: STAT, Dosing Weight 99.545 kg, Start date: 02/03/14 14:43:00, Duration: 1 doses or times, Stop date: 02/03/14 14:43:00 Saline Flush 10 mL, No Longer 0.9% Route: IVP, Active 2013 [facility] Drug Form: INJ, Dosing Weight 99.545, kg, PRN, PRN Line Flush, Start date: 02/03/14 14:43:00, Duration: 30 day, Stop date: 03/05/14 13:42:00Note s: Same as: BD Posiflush Sterile Ibuprofen 400 mg, 1 Inactive tab, Route: 2013 [facility] PO, Drug form: TAB, ONCE, Dosing Weight 99.545, kg, Priority: STAT, Start date: 02/03/14 14:43:00, Stop date: 02/03/14 14:43:00Note s: (Same as: Motrin) "Do Not Crush" Give with food. Acetaminophen 1 tab, PO, Active 325 MG / Q6H, for 2013 Hydrocodone pain, # 20 Bitartrate 7.5 tab, 0 MG Oral Tablet Refill(s) [[place] 7.5/325] Cyclobenzaprine 10 mg, PO, Active hydrochloride TID, Muscle 2013 10 MG Oral Spasm, # 30 Tablet tab, 0 [Flexeril] Refill(s) ibuprofen 800 800 mg, PO, Active mg oral tablet Q8H, Pain, 2013 [facility] Take with food, # 30 tab, 0 Refill(s)Spe cial Instructions : Take with food Acetaminophen 1 tab, Inactive 325 MG / Route: PO, 2013 [facility] Hydrocodone Drug Form: Bitartrate 7.5 TAB, Dosing MG Oral Tablet Weight 100.455, kg, ONCE, STAT, Start date: 01/09/14 13:25:00, Stop date: 01/09/14 13:25:00Note s: Same as [place] 325-7.5mg Do not exceed 4gm/day of acetaminophe n. Ketorolac 60 mg, 2 mL, Inactive Route: IM, 2013 [facility] Drug form: INJ, ONCE, Dosing Weight 100.455, kg, Priority: STAT, Start date: 01/09/14 13:25:00, Stop date: 01/09/14 13:25:00Note s: (Same as:Toradol) IV bolus must be given >15 seconds. Give IM administrati on slowly and deeply into the muscle. Not for use > 4 days Orphenadrine 60 mg, 2 mL, Inactive Route: IM, 2013 [facility] Drug form: INJ, ONCE, Dosing Weight 100.455, kg, Priority: STAT, Start date: 01/09/14 13:25:00, Stop date: 01/09/14 13:25:00 Physical See Active Therapy Instructions 2013 [facility] , MISC, ONCALL, Evaluate and Treat 2-3 times per week for 4-6 weeks, # 1 ea, 0 Refill(s)Spe cial Instructions : Evaluate and Treat 2-3 times per week for 4-6 weeks Docusate Sodium 100 mg, 1 Inactive 100 MG Oral cap, Route: 2013 [facility] Capsule PO, Drug [Colace] form: CAP, BID, Dosing Weight 103.636, kg, Start date: 11/28/13 17:00:00, Duration: 30 day, Stop date: 12/28/13 9:00:00Notes : (Same as: Colace) (Do Not Crush) Senokot 17.2 mg, 2 No Longer tab, Route: Active 2013 [facility] PO, Drug Form: TAB, Dosing Weight 103.636, kg, Daily, Start date: 11/28/13 9:00:00, Duration: 30 day, Stop date: 12/27/13 9:00:00Notes : (Same as: Senokot) Docusate Sodium 100 mg, 1 No Longer 100 MG Oral cap, Route: Active 2013 [facility] Capsule PO, Drug [Colace] form: CAP, BID, Dosing Weight 103.636, kg, Start date: 11/28/13 9:00:00, Duration: 30 day, Stop date: 12/27/13 17:00:00Note s: (Same as: Colace) (Do Not Crush) heparin sodium, 5,000 unit, No Longer porcine 2500 1 mL, Route: Active 2013 [facility] UNT/ML SUB-Q, Drug Injectable form: INJ, Solution Q12H, Dosing Weight 103.636, kg, Start date: 11/28/13 8:00:00, Duration: 30 day, Stop date: 12/27/13 21:00:00Note s: porcine heparin Seroquel 300 mg, 3 No Longer tab, Route: Active 2013 [facility] PO, Drug form: TAB, Bedtime, Dosing Weight 103.636, kg, Start date: 11/27/13 21:00:00, Duration: 30 day, Stop date: 12/26/13 21:00:00Note s: (Same as: SEROquel) Lipitor 20 mg, 2 No Longer tab, Route: Active 2013 [facility] PO, Drug form: TAB, Bedtime, Dosing Weight 103.636, kg, Start date: 11/27/13 21:00:00, Duration: 30 day, Stop date: 12/26/13 21:00:00Note s: (Same As: Lipitor) Famotidine 20 20 mg, 1 No Longer MG Oral Tablet tab, Route: Active 2013 [facility] [Pepcid] PO, Drug form: TAB, Q12H, Dosing Weight 103.636, kg, Start date: 11/27/13 21:00:00, Duration: 30 day, Stop date: 12/27/13 9:00:00Notes : (Same as: Pepcid) 10 ML Cefazolin 1 gm, 100 No Longer 100 MG/ML mL, Route: Active 2013 [facility] Prefilled IVPB, Drug Syringe form: INJ, ABXQ8H, Dosing Weight 103.636, kg, Start date: 11/27/13 20:00:00, Duration: 3 doses or times, Stop date: 11/28/13 15:00:00 magnesium 300 ml, No Longer citrate Route: PO, Active 2013 [facility] Drug Form: LIQ, Dosing Weight 103.636, kg, ONCE, PRN Constipation , Start date: 11/27/13 19:15:00Note s: (Same as: Citrate of Magnesia) Zofran 4 mg, 2 mL, No Longer Route: IV, Active 2013 [facility] Drug form: INJ, Q8H, Dosing Weight 103.636, kg, PRN Nausea, Start date: 11/27/13 19:15:00, Duration: 30 day, Stop date: 12/27/13 19:14:00Note s: (Same as: Zofran) Dilaudid 0.5 mg, 0.5 No Longer mL, Route: Active 2013 [facility] IV, Drug form: INJ, Q3H, Dosing Weight 103.636, kg, PRN Pain Score 4-6, Start date: 11/27/13 19:15:00, Duration: 30 day, Stop date: 12/27/13 19:14:00 Acetaminophen 1 tab, No Longer 325 MG / Route: PO, Active 2013 [facility] Hydrocodone Drug Form: Bitartrate 5 MG TAB, Dosing Oral Tablet Weight 103.636, kg, Q4H, PRN Pain Score 4-6, Start date: 11/27/13 19:15:00, Duration: 30 day, Stop date: 12/27/13 19:14:00Note s: (Same as: [place] 325/5) Do not exceed 4gm/day of acetaminophe n. Tylenol 650 mg, Inactive Route: PO, 2013 [facility] Drug form: TAB, Q4H, Dosing Weight 103.636, kg, PRN Pain, Start date: 11/27/13 19:15:00, Duration: 30 day, Stop date: 12/27/13 19:14:00 Sodium Chloride 1,000 mL, No Longer 0.154 MEQ/ML Rate: [address] [facility] Injectable ml/hr, Solution Infuse over: 13.3 hr, Route: IV, Dosing Weight 103.636 kg, Total Volume: 1,000, Start date: 11/27/13 19:15:00, Duration: 30 day, Stop date: 12/27/13 19:14:00 Cefazolin 2 gm, 100 Inactive mL, Route: 2013 [facility] IVPB, Drug form: INJ, ONCE, Dosing Weight 103.636, kg, Start date: 11/27/13 18:35:00, Duration: 1 doses or times, Stop date: 11/27/13 18:35:00Note s: Same as: Ancef Protonix 40 mg, 1 No Longer tab, Route: Active 2013 [facility] PO, Drug form: ECTAB, Before Dinner, Start date: 11/27/13 16:30:00, Duration: 30 day, Stop date: 12/26/13 16:30:00Note s: Tablet should not be chewed or crushed. (Same as: Protonix) Ancef 2 gm, 100 Inactive mL, Route: 2013 [facility] IVPB, Drug form: INJ, ONCALL, Dosing Weight 103.636, kg, Start date: 11/27/13 15:00:00, Duration: 30 day, Stop date: 12/27/13 14:59:00Note s: Same as: Ancef Lactated 1,000 mL, No Longer Ringers IV Rate: [address] [facility] 1,000 mL ml/hr, Infuse over: 40 hr, Route: IV, Dosing Weight 103.636 kg, Total Volume: 1,000, Start date: 11/27/13 14:23:00, Duration: 1 day, Stop date: 11/28/13 14:22:00 phenylephrine 249 mL, No Longer 10 mg + Sodium Rate: Active 2013 [facility] Chloride 0.9% Titrate to IV 249 mL effect, Route: IV, Dosing Weight 103.636 kg, Total Volume: 250, Start date: 11/27/13 14:12:00, Duration: 1 doses or times, Stop date: 11/28/13 14:11:00Note s: (Same as: Julián-Synephri ne) Levemir FlexPen 30 unit, 0.3 No Longer mL, Route: Active 2013 [facility] SUB-Q, Drug form: INJ, Daily, Start date: 11/27/13 9:00:00, Duration: 30 day, Stop date: 12/26/13 9:00:00Notes : Same as Levemir "single patient use only" Regular 20 unit, 0.2 Inactive Insulin, Human mL, Route: 2013 [facility] 100 UNT/ML SUB-Q, Drug Injectable form: SOLN, Solution BID, Dosing [Humulin R] Weight 103.636, kg, Start date: 11/27/13 9:00:00, Duration: 30 day, Stop date: 12/26/13 17:00:00 Hydroxyzine 50 mg, 2 No Longer tab, Route: Active 2013 [facility] PO, Drug form: TAB, Q12H, Dosing Weight 103.636, kg, Start date: 11/27/13 9:00:00, Duration: 30 day, Stop date: 12/26/13 21:00:00Note s: (Same as: Atarax) Avoid alcohol. Hydrochlorothia 1 tab, Inactive zide 25 MG / Route: PO, 2013 [facility] Lisinopril 20 Drug Form: MG Oral Tablet TAB, Dosing Weight 103.636, kg, Daily, Start date: 11/27/13 9:00:00, Duration: 30 day, Stop date: 12/26/13 9:00:00 Nexium 40 mg, Inactive Route: PO, 2013 Drug form: ECCAP, Daily, Dosing Weight 103.636, kg, Start date: 11/27/13 9:00:00, Duration: 30 day, Stop date: 12/26/13 9:00:00 Escitalopram 20 mg, 1 No Longer tab, Route: Active 2013 [facility] PO, Drug form: TAB, Daily, Dosing Weight 103.636, kg, Start date: 11/27/13 9:00:00, Duration: 30 day, Stop date: 12/26/13 9:00:00Notes : (Same as: Lexapro) Aspirin 81 MG 81 mg, 1 No Longer Enteric Coated tab, Route: Active 2013 [facility] Tablet PO, Drug form: ECTAB, Daily, Dosing Weight 103.636, kg, Start date: 11/27/13 9:00:00, Duration: 30 day, Stop date: 12/26/13 9:00:00Notes : Do not crush or chew. (Same As: Ecotrin) pneumococcal 0.5 ml, Inactive capsular Route: IM, 2013 [facility] polysaccharide Drug Form: type 1 vaccine INJ, Daily, / pneumococcal Start date: capsular 11/27/13 polysaccharide 9:00:00, type 10A Duration: 1 vaccine / doses or pneumococcal times, Stop capsular date: polysaccharide 11/27/13 type 11A 9:00:00Notes vaccine / : (Same as: pneumococcal Pneumovax capsular 23) polysaccharide Refrigerate type 12F vaccine / pneumococcal capsular polysacchar Prinivil 20 mg, 1 No Longer tab, Route: Active 2013 [facility] PO, Drug form: TAB, Daily, Start date: 11/27/13 9:00:00, Duration: 30 day, Stop date: 12/26/13 9:00:00Notes : (Same as: Prinivil, Zestril) Gemfibrozil 600 mg, 1 No Longer tab, Route: Active 2013 [facility] PO, Drug form: TAB, BID, Dosing Weight 103.636, kg, Start date: 11/27/13 9:00:00, Duration: 30 day, Stop date: 12/26/13 17:00:00Note s: (Same as: Lopid) hydrochlorothia 25 mg, 1 No Longer zide 25 mg oral tab, Route: Active 2013 [facility] tablet PO, Drug form: TAB, Daily, Start date: 11/27/13 9:00:00, Duration: 30 day, Stop date: 12/26/13 9:00:00Notes : (Same as: Hydrodiuril) With food. Insulin 30 unit, No Longer Glargine Route: Active 2013 [facility] SUB-Q, Daily, Dosing Weight 103.636, kg, Start date: 11/27/13 9:00:00, Duration: 30 day, Stop date: 12/26/13 9:00:00 NovoLOG 20 unit, 0.2 No Longer mL, Route: Active 2013 [facility] SUB-Q, Drug form: SOLN, BID-Meals, Start date: 11/27/13 8:00:00, Duration: 30 day, Stop date: 12/26/13 17:00:00Note s: (Same as: NovoLOG) Insulin, 1 unit, 0.01 No Longer Aspart, Human mL, Route: Active 2013 [facility] SUB-Q, Drug form: SOLN, Bedtime, Dosing Weight 103.636, kg, PRN Blood Glucose Results, Start date: 11/26/13 21:52:00, Duration: 30 day, Stop date: 12/26/13 21:51:00Note s: Roll in palms of hands gently; Do not shake vigorously. (Same as: NovoLOG) "single patient use only" Stable for 28 days at room temperature. Expires in days from __Date Glucagon 1 mg, Route: Inactive IM, PRN, 2013 [facility] Dosing Weight 103.636, kg, PRN Blood Glucose Results, Start date: 11/26/13 21:52:00, Duration: 30 day, Stop date: 12/26/13 21:51:00 nitroglycerin 0.4 mg, 1 No Longer 0.4 mg tab, Route: Active 2013 [facility] sublingual SL, Drug tablet form: TAB, Q5Min, PRN Chest Pain, Start date: 11/26/13 17:44:00, Duration: 30 day, Stop date: 12/26/13 17:43:00Note s: (Same as:Nitroquic k, Nitrostat) "Do Not Crush" Sublingual tablet atropine 0.5 mg, 5 No Longer mL, Route: Active 2013 [facility] IVP, Drug form: INJ, PRN, PRN Bradycardia, Start date: 11/26/13 17:44:00, Duration: 30 day, Stop date: 12/26/13 17:43:00 Ondansetron 4 mg, 2 mL, No Longer Route: IVP, Active 2013 [facility] Drug form: INJ, Q8H, Dosing Weight 103.636, kg, PRN Nausea & Vomiting, Start date: 11/26/13 17:16:00, Duration: 30 day, Stop date: 12/26/13 17:15:00Note s: (Same as: Zofran) Morphine 4 mg, 2 mL, No Longer Route: IVP, Active 2013 [facility] Drug form: INJ, Q4H, Dosing Weight 103.636, kg, PRN Pain Score 7-10, Start date: 11/26/13 17:16:00, Duration: 30 day, Stop date: 12/26/13 17:15:00Note s: (Same as:MORPhine Sulfate) Docusate 100 mg, 1 No Longer cap, Route: Active 2013 [facility] PO, Drug form: CAP, BID, Dosing Weight 103.636, kg, PRN Constipation , Start date: 11/26/13 17:16:00, Duration: 30 day, Stop date: 12/26/13 17:15:00Note s: (Same as: Colace) (Do Not Crush) Acetaminophen 650 mg, 20.3 No Longer mL, Route: Active 2013 [facility] PO, Drug form: LIQ, Q4H, Dosing Weight 103.636, kg, PRN Pain 1-3/Temp > 100.4 F, Start date: 11/26/13 17:16:00, Duration: 30 day, Stop date: 12/26/13 17:15:00Note s: Max acetaminophe x=[id number]/day (4 gm/day). (Same as: Tylenol) Insulin, 8 unit, 0.08 No Longer Aspart, Human mL, Route: Active 2013 [facility] SUB-Q, Drug form: SOLN, TID-Before Meals, Dosing Weight 103.636, kg, Start date: 11/26/13 16:30:00, Duration: 30 day, Stop date: 12/26/13 11:30:00Note s: Roll in palms of hands gently; Do not shake vigorously. (Same as: NovoLOG) "single patient use only" Stable for 28 days at room temperature. Expires in days from __Date Insulin, 4 unit, 0.04 No Longer Aspart, Human mL, Route: Active 2013 [facility] SUB-Q, Drug form: SOLN, TID-Before Meals, Dosing Weight 103.636, kg, PRN Blood Glucose Results, Start date: 11/26/13 16:25:00, Duration: 30 day, Stop date: 12/26/13 16:24:00Note s: Roll in palms of hands gently; Do not shake vigorously. (Same as: NovoLOG) "single patient use only" Stable for 28 days at room temperature. Expires in days from __Date Dextrose 50% 12.5 gm, 25 No Longer Syringe mL, Route: Active 2013 [facility] IVP, Drug Form: INJ, Dosing Weight 103.636, kg, PRN, PRN Blood Glucose Results, Start date: 11/26/13 16:25:00, Duration: 30 day, Stop date: 12/26/13 16:24:00 Glucagon 1 mg, Route: No Longer IM, Drug Active 2013 [facility] form: PDR/INJ, PRN, Dosing Weight 103.636, kg, PRN Blood Glucose Results, Start date: 11/26/13 16:25:00, Duration: 30 day, Stop date: 12/26/13 16:24:00 Morphine 4 mg, 2 mL, No Longer Route: IVP, Active 2013 [facility] Drug form: INJ, Q4H, Dosing Weight 103.636, kg, PRN Chest Pain, Start date: 11/26/13 15:23:00, Duration: 30 day, Stop date: 12/26/13 15:22:00Note s: (Same as:MORPhine Sulfate) Aspirin 81 MG 81 mg=1 tab, Active Enteric Coated PO, Daily 2013 [facility] Tablet Esomeprazole 40 40 mg=1 cap, Active MG Enteric PO, Daily 2013 [facility] Coated Capsule [Nexium] atorvastatin 20 20 mg=1 tab, Active MG Oral Tablet PO, Bedtime 2013 [facility] [Lipitor] Regular 20 unit, Active Insulin, Human SUB-Q, BID 2013 [facility] 100 UNT/ML Injectable Solution [Humulin R] Hydroxyzine 50 mg=1 tab, Active Hydrochloride PO, Q12H 2013 [facility] 50 MG Oral Tablet Hydrochlorothia 1 tab, PO, Active zide 25 MG / Daily 2013 [facility] Lisinopril 20 MG Oral Tablet escitalopram 20 20 mg=1 tab, Active mg oral tablet PO, Daily 2013 quetiapine 300 300 mg=1 Active MG Oral Tablet tab, PO, 2013 [facility] [Seroquel] Bedtime Aspirin 81 MG 324 mg, Inactive Chewable Tablet Route: PO, 2013 [facility] Drug form: CHEWTAB, ONCE, Dosing Weight 103.636, kg, Priority: STAT, Start date: 11/26/13 12:33:00, Stop date: 11/26/13 12:33:00 Ondansetron 4 mg, Route: Inactive IVP, Drug 2013 [facility] form: INJ, ONCE, Dosing Weight 103.636, kg, Priority: STAT, Start date: 11/26/13 12:32:00, Stop date: 11/26/13 12:32:00 Morphine 4 mg, Route: Inactive IVP, Drug 2013 [facility] form: INJ, ONCE, Dosing Weight 103.636, kg, Priority: STAT, Start date: 11/26/13 12:32:00, Stop date: 11/26/13 12:32:00 Insulin, 8 unit, Inactive Regular, Pork Route: IVP, 2013 [facility] ONCE, Dosing Weight 103.636, kg, Priority: STAT, Start date: 11/26/13 12:25:00, Stop date: 11/26/13 12:25:00 ibuprofen 600 600 mg, 1 PO Active [facility] mg oral tablet tab, PO, 2012 Q6H, PRN, take with food, 30 tab, Pain, Substitution Allowedtake with food Flexeril 10 mg 10 mg, 1 PO Active Jamel oral tablet tab, PO, 2012 TID, PRN, 30 tab, for spasm, Substitution Allowed, TAB ondansetron 4 mg, Route: IVP No Longer [facility] IVP, Drug Active 2012 [facility] form: INJ, ONCE, Dosing Weight 100.455, kg, Priority: STAT, Start date: 12/04/12 21:45:00, Stop date: 12/04/12 21:45:00 morphine 4 mg, Route: IVP No Longer [facility] Sulfate IVP, ONCE, Active 2012 [facility] Dosing Weight 100.455, kg, Start date: 12/04/12 21:44:00, Stop date: 12/04/12 21:44:00 Levemir 40 units Subcutaneo Active 100 UNIT/ML [place] [facility] FlexTouch us Subcutaneous Cardiovascu twice a day lar Lipitor 1 tablet Orally Active 80 MG Orally [place] [facility] Once a day Cardiovascu lar Prozac 1 capsule Orally Active 40 MG Orally [place] [facility] Once a day Cardiovascu lar Nitrostat not defined Sublingual Active 0.4 MG [facility] Sublingual Cardiovascu lar Aspirin 1 tablet Orally Active 81 MG Orally [place] [facility] Once a day Cardiovascu lar Plavix 1 tablet Orally Active 75 MG Orally [facility] Once a day Cardiovascu lar Omeprazole 1 capsule Orally Active 40 MG Orally [place] [facility] Once a day Cardiovascu lar Tramadol HCl 1 tablet as Orally Active 50 MG Orally [facility] needed every 6 hrs Cardiovascu lar Isosorbide 1 tablet Orally Active 10 MG Orally [place] [facility] Mononitrate Twice a day Cardiovascu lar Metformin HCl 2 tablet Orally Active 1000 MG [facility] with meals Orally Twice Cardiovascu a day lar Lasix 1 tablet Orally Active 20 MG Orally [place] [facility] Once a day Cardiovascu lar Reglan not defined Orally Active 5 MG Orally [place] [facility] Cardiovascu lar Gabapentin 1 capsule Orally Active 300 MG Orally [place] [facility] Three times a Cardiovascu day as needed lar NovoLog Flexpen 30 units Subcutaneo Active 100 UNIT/ML [place] [facility] us Subcutaneous Cardiovascu three times a lar day Lisinopril 1 tablet Orally Active 20 MG Orally [place] [facility] Once a day Cardiovascu lar Carvedilol 2 tablet Orally Active 25 MG Orally [facility] once a day Cardiovascu lar Tresiba not defined Subcutaneo Active 100 UNIT/ML [facility] FlexTouch us Subcutaneous Cardiovascu lar Lisinopril 1 tablet Orally Active 40 MG Orally [place] [facility] Once a day Cardiovascu lar Allergies, Adverse Reactions, Alerts Substance Category Reaction Severity Reaction Status Date Comments Source type Reported N.K.D.A. Adverse Info Not Adverse Active CL Reaction Available Reaction 8 Cardiovascu lar No Known Assertion Drug Medication allergy [facility] Allergies Immunizations Immunization Date Site Status Last Updated Comments Source Given influenza virus Right completed [facility] vaccine, 8 deltoid inactivated pneumococcal Left completed [facility] Results Order Name Results Value Reference Date Interpretation Comments Source Range CARDIAC Total CK 127 12 - 191 07/09 ENZYMES /2018 [facility] CARDIAC BNP 3 <=100 07/09 [facility] pg/mL /2018 [facility] CARDIAC Troponin-I <0.02 0.00 - 07/[address] [facility] CHEM PANEL eGFR 72 07/09 Result Comment: The [facility] eGFR is calculated using the CKD-EPI formula. In most young, healthy individuals the eGFR will be >90 mL/min/1.73m2 . The eGFR declines with age. An eGFR of 60-89 may be normal in some populations, particularly the elderly, for whom the CKD-EPI formula has not been extensively validated. Use of the eGFR is not recommended in the following populations:< br/>
Gwen viduals with unstable creatinine concentration s, including patients and those with serious co-morbid conditions.<b r/>
Patie nts with extremes in muscle mass or diet.

The data above are obtained from the National Kidney Disease Education Program (NKDEP) which additionally recommends that when the eGFR is used in patients with extremes of body mass index for purposes of drug dosing, the eGFR should be multiplied by the estimated BMI. CHEM PANEL Bili Total 0.6 0.2 - 1.3 07/09 [facility] CHEM PANEL Sodium Lvl 134 135 - 145 07/09 [facility] CHEM PANEL Creatinine 0.93 0.50 - 07/[address] [facility] CHEM PANEL CO2 23 24 - 32 07/09 [facility] CHEM PANEL Chloride Lvl 100 95 - 109 07/09 [facility] CHEM PANEL Albumin Lvl 3.6 3.5 - 5.0 07/09 [facility] CHEM PANEL Total 8.6 6.4 - 8.4 18 [facility] CHEM PANEL Calcium Lvl 9.4 8.5 - 10.5 07/09 [facility] CHEM PANEL AST 25 0 - 37 07/09 [facility] CHEM PANEL Alk Phos 99 39 - 136 07/09 [facility] CHEM PANEL ALT 21 0 - 65 07/09 [facility] CHEM PANEL BUN 13 7 - 22 07/09 [facility] CHEM PANEL Potassium 5.1 3.5 - 5.1 07/09 MH Lvl /2018 [facility] CHEM PANEL Glucose Lvl 336 70 - 99 07/09 [facility] CHEM PANEL A/G Ratio 0.7 0.7 - 1.6 07/09 [facility] CHEM PANEL Globulin 5.0 2.7 - 4.2 07/09 [facility] CHEM PANEL B/C Ratio 14 6 - 25 07/09 [facility] CHEM PANEL AGAP 16.1 10.0 - 03 MH 20.0 /2018 [facility] HEMATOLOGY Eosinophils 0.2 0.0 - 0.5 /18 MH # /2019 [facility] HEMATOLOGY Monocytes # 0.7 0.0 - 0.8 07/09 [facility] HEMATOLOGY Lymphocytes 23.5 20.0 - 03 MH 40.0 /2018 [facility] HEMATOLOGY Eosinophils 2.2 0.0 - 4.0 18 /2018 [facility] HEMATOLOGY Segs 66.2 45.0 - 0318 MH 75.0 /2019 [facility] HEMATOLOGY Basophils 0.5 0.0 - 1.0 18 [facility] HEMATOLOGY Monocytes 7.6 2.0 - 12.0 18 /2018 [facility] HEMATOLOGY Lymphocytes 2.1 1.0 - 5.5 18 MH # /2019 [facility] HEMATOLOGY Neutrophils 5.9 1.5 - 8.1 07/09 # /2018 [facility] HEMATOLOGY MPV 10.1 7.4 - 10.4 07/09 [facility] HEMATOLOGY MCHC 32.9 32.0 - 03 MH 36.0 /2018 [facility] HEMATOLOGY RDW 13.3 11.5 - 0318 MH 14.5 /2018 [facility] HEMATOLOGY Platelet 257 133 - 450 07/09 [facility] HEMATOLOGY WBC 8.9 3.7 - 10.4 07/09 /2018 [facility] HEMATOLOGY MCH 30.4 27.0 - 07/09 MH 31.0 /2018 [facility] HEMATOLOGY RBC 4.81 4.20 - 07/09 5.40 /2018 [facility] HEMATOLOGY Hgb 14.6 12.0 - 07/09 16.0 /2018 [facility] HEMATOLOGY Hct 44.4 36.0 - 07/[address] [facility] HEMATOLOGY MCV 92.4 80.0 - 07/09 98.0 /2018 [facility] CARDIAC Troponin-I <0.02 0.00 - 05/[address] [facility] CARDIAC BNP 102 <=100 05/16 [facility] pg/mL /2018 [facility] CARDIAC Total CK 203 12 - 191 05/16 Result ENZYMES Comment: [facility] Marked lipemic sample. Tests were performed by lipoclear with 1.2 dilution. CHEM PANEL BUN 9 7 - 22 05/16 Result Comment: [facility] Marked lipemic sample. Tests were performed by lipoclear with 1.2 dilution.<br/ >Marked lipemic sample. Tests were performed by lipoclear with 1.2 dilution. CHEM PANEL Total 6.6 6.4 - 8.4 05/16 Result Protein Comment: [facility] Marked lipemic sample. Tests were performed by lipoclear with 1.2 dilution. CHEM PANEL B/C Ratio 12 6 - 25 05/16 Result Comment: [facility] Marked lipemic sample. Tests were performed by lipoclear with 1.2 dilution. CHEM PANEL Albumin Lvl 3.4 3.5 - 5.0 05/16 Result Comment: [facility] Marked lipemic sample. Tests were performed by lipoclear with 1.2 dilution. CHEM PANEL Calcium Lvl 7.8 8.5 - 10.5 05/16 Result Comment: [facility] Marked lipemic sample. Tests were performed by lipoclear with 1.2 dilution. CHEM PANEL Globulin 3.2 2.7 - 4.2 05/16 Result Comment: [facility] Marked lipemic sample. Tests were performed by lipoclear with 1.2 dilution. CHEM PANEL ALT 37 0 - 65 05/16 Result Comment: [facility] Marked lipemic sample. Tests were performed by lipoclear with 1.2 dilution. CHEM PANEL A/G Ratio 1.1 0.7 - 1.6 05/16 Result Comment: [facility] Marked lipemic sample. Tests were performed by lipoclear with 1.2 dilution. CHEM PANEL AST 41 0 - 37 05/16 Result Comment: [facility] Marked lipemic sample. Tests were performed by lipoclear with 1.2 dilution. CHEM PANEL Bili Total <0.1 mg/dL 0.2 - 1.3 05/16 Result Comment: [facility] Marked lipemic sample. Tests were performed by lipoclear with 1.2 dilution. CHEM PANEL Alk Phos 119 39 - 136 05/16 Result Comment: [facility] Marked lipemic sample. Tests were performed by lipoclear with 1.2 dilution. CHEM PANEL eGFR 91 05/16 Result Comment: The [facility] eGFR is calculated using the CKD-EPI formula. In most young, healthy individuals the eGFR will be >90 mL/min/1.73m2 . The eGFR declines with age. An eGFR of 60-89 may be normal in some populations, particularly the elderly, for whom the CKD-EPI formula has not been extensively validated. Use of the eGFR is not recommended in the following populations:< br/>
Gwen viduals with unstable creatinine concentration s, including patients and those with serious co-morbid conditions.<b r/>
Patie nts with extremes in muscle mass or diet.

The data above are obtained from the National Kidney Disease Education Program (NKDEP) which additionally recommends that when the eGFR is used in patients with extremes of body mass index for purposes of drug dosing, the eGFR should be multiplied by the estimated BMI. CHEM PANEL AGAP 10.1 10.0 - 05/[address] [facility] CHEM PANEL CO2 29 24 - 32 05/16 [facility] CHEM PANEL Chloride Lvl 104 95 - 109 05/16 [facility] CHEM PANEL Creatinine 0.77 0.50 - 05/[address] [facility] CHEM PANEL Glucose Lvl 291 70 - 99 05/16 [facility] CHEM PANEL Potassium 4.1 3.5 - 5.1 05/16 Lvl /2018 [facility] CHEM PANEL Sodium Lvl 139 135 - 145 05/16 [facility] ENDOCRINOL S Preg Negative Negative 05/16 OGY *NA* /2018 [facility] (05/16/18 2:34 PM) HEMATOLOGY MCV 90.5 80.0 - 05/[address] [facility] HEMATOLOGY MCHC 39.8 32.0 - 05/16 MH 36.0 /2018 [facility] HEMATOLOGY MCH 36.0 27.0 - 05/16 31.0 /2018 [facility] HEMATOLOGY RDW 13.5 11.5 - 05/16 MH 14.5 /2018 [facility] HEMATOLOGY Platelet 287 133 - 450 05/16 /2018 [facility] HEMATOLOGY WBC 7.6 3.7 - 10.4 05/16 /2018 [facility] HEMATOLOGY RBC 3.88 4.20 - 05/16 MH 5.40 /2018 [facility] HEMATOLOGY Hgb 13.9 12.0 - 05/[address] [facility] HEMATOLOGY Hct 35.1 36.0 - 05/[address] [facility] HEMATOLOGY MPV 9.7 7.4 - 10.4 05/16 [facility] HEMATOLOGY Lymphocytes 2.6 1.0 - 5.5 05/16 MH # /2018 [facility] HEMATOLOGY Basophils # 0.1 0.0 - 0.2 05/16 /2018 [facility] HEMATOLOGY Eosinophils 0.3 0.0 - 0.5 05/16 # /2018 [facility] HEMATOLOGY Monocytes # 0.5 0.0 - 0.8 05/16 /2018 [facility] HEMATOLOGY Neutrophils 4.2 1.5 - 8.1 05/16 # /2018 [facility] HEMATOLOGY Eosinophils 3.3 0.0 - 4.0 05/16 [facility] HEMATOLOGY Monocytes 6.2 2.0 - 12.0 05/16 [facility] HEMATOLOGY Basophils 1.2 0.0 - 1.0 05/16 [facility] HEMATOLOGY Lymphocytes 34.3 20.0 - 05/[address] [facility] HEMATOLOGY Segs 55.0 45.0 - 05/[address] [facility] HEMATOLOGY RBC Morph Normal 05/16 (05/16/18 2:34 PM) [facility] HEMATOLOGY Plt Morph Normal 05/16 (05/16/18 2:34 PM) [facility] URINE AND UA Sq Epi Occasional Few /LPF 04/01 STOOL /LPF /2017 [facility] URINE AND UA Leuk Est Negative Negative 04/01 STOOL (03/31/18 11:22 PM) /2017 [facility] URINE AND UA Nitrite Negative Negative 04/01 STOOL (03/31/18 11:22 PM) [facility] URINE AND UA WBC <1 0 - 5 04/01 [facility] URINE AND UA Bili Negative Negative 04/01 STOOL *NA* /2017 [facility] (03/31/18 11:22 PM) URINE AND UA Ketones Negative Negative 04/01 STOOL *NA* /2017 [facility] (03/31/18 11:22 PM) URINE AND UA <=1.0 0.1 - 1.0 04/01 STOOL Urobilinogen mg/dL [facility] URINE AND UA Blood Negative Negative 04/01 STOOL (03/31/18 11:22 PM) [facility] URINE AND UA pH 6.0 5.0 - 8.0 04/01 [facility] URINE AND UA Spec Grav 1.025 <=1.030 04/[address] [facility] URINE AND UA Glucose 500 mg/dL Negative 04/01 STOOL mg/dL [facility] URINE AND UA Protein Negative Negative 04/01 STOOL (03/31/18 11:22 PM) [facility] URINE AND UA Turbidity Clear Clear 04/01 STOOL (03/31/18 11:22 PM) [facility] URINE AND UA Color Ltyellow 04/[address] [facility] CARDIAC Troponin-I <0.02 0.00 - 04/[address] [facility] ELECTROLYT Chloride Lvl 98 95 - 109 04/[address] [facility] ELECTROLYT AGAP 13.9 10.0 - 04/[address] [facility] ELECTROLYT CO2 24 24 - 32 04/01 [facility] ELECTROLYT Globulin 4.0 2.7 - 4.2 04/[address] [facility] ELECTROLYT Albumin Lvl 3.1 3.5 - 5.0 04/[address] [facility] ELECTROLYT A/G Ratio 0.8 0.7 - 1.6 04/01 ES [facility] ELECTROLYT Alk Phos 127 39 - 136 04/01 [facility] ELECTROLYT AST 13 0 - 37 04/[address] [facility] ELECTROLYT Bili Total 0.1 0.2 - 1.3 04/01 [facility] ELECTROLYT ALT 29 0 - 65 04/01 [facility] ELECTROLYT Calcium Lvl 8.4 8.5 - 10.5 04/01 ES /2017 [facility] ELECTROLYT Total 7.1 6.4 - 8.4 04/01 ES Protein /2017 [facility] ELECTROLYT B/C Ratio 10 6 - 25 04/01 [facility] ES [facility] ELECTROLYT eGFR 57 04/01 Result Comment: The [facility] eGFR is calculated using the CKD-EPI formula. In most young, healthy individuals the eGFR will be >90 mL/min/1.73m2 . The eGFR declines with age. An eGFR of 60-89 may be normal in some populations, particularly the elderly, for whom the CKD-EPI formula has not been extensively validated. Use of the eGFR is not recommended in the following populations:< br/>
Gwen viduals with unstable creatinine concentration s, including patients and those with serious co-morbid conditions.<b r/>
Patie nts with extremes in muscle mass or diet.

The data above are obtained from the National Kidney Disease Education Program (NKDEP) which additionally recommends that when the eGFR is used in patients with extremes of body mass index for purposes of drug dosing, the eGFR should be multiplied by the estimated BMI. ELECTROLYT Potassium 3.9 3.5 - 5.1 04/01 ES Lvl /2017 [facility] ELECTROLYT Sodium Lvl 132 135 - 145 04/01 [facility] ELECTROLYT Creatinine 1.13 0.50 - 04/01 ES Lvl 1.40 /2017 [facility] ELECTROLYT BUN 11 7 - 22 04/[address] [facility] ELECTROLYT Glucose Lvl 526 70 - 99 04/01 Result Comment: [facility] Critical Result(s) called to RN. Delilah Salazar at 03/31/2018 22:52 by naga. Read back OK. HEMATOLOGY Monocytes 8.2 2.0 - 12.0 04/01 [facility] HEMATOLOGY Lymphocytes 27.6 20.0 - 04/01 MH 40.0 /2018 [facility] HEMATOLOGY Eosinophils 3.6 0.0 - 4.0 04/01 [facility] HEMATOLOGY Basophils 0.8 0.0 - 1.0 04/01 [facility] HEMATOLOGY Segs 59.8 45.0 - 04/01 MH 75.0 /2017 [facility] HEMATOLOGY Lymphocytes 2.1 1.0 - 5.5 04/01 MH # /2017 [facility] HEMATOLOGY Monocytes # 0.6 0.0 - 0.8 04/01 [facility] HEMATOLOGY Basophils # 0.1 0.0 - 0.2 04/01 [facility] HEMATOLOGY Neutrophils 4.5 1.5 - 8.1 04/01 MH # /2018 [facility] HEMATOLOGY Eosinophils 0.3 0.0 - 0.5 04/01 MH # /2018 [facility] HEMATOLOGY RDW 14.3 11.5 - [address] [facility] HEMATOLOGY MPV 10.0 7.4 - 10.4 04/01 /2017 [facility] HEMATOLOGY Platelet 248 133 - 450 04/01 [facility] HEMATOLOGY MCH 30.2 27.0 - 12 MH 31.0 /2017 [facility] HEMATOLOGY Hct 33.2 36.0 - 04/01 48.0 /2017 [facility] HEMATOLOGY RBC 3.66 4.20 - 04/01 5.40 /2017 [facility] HEMATOLOGY Hgb 11.1 12.0 - 04/01 16.0 /2017 [facility] WBC 7.5 3.7 - 10.4 04/01 [facility] HEMATOLOGY MCHC 33.3 32.0 - 04/[address] [facility] HEMATOLOGY MCV 90.8 80.0 - 04/[address] [facility] CARDIAC Troponin-I <0.02 0.00 - 03/[address] [facility] CHEM PANEL eGFR 74 03/20 Result Comment: The [facility] eGFR is calculated using the CKD-EPI formula. In most young, healthy individuals the eGFR will be >90 mL/min/1.73m2 . The eGFR declines with age. An eGFR of 60-89 may be normal in some populations, particularly the elderly, for whom the CKD-EPI formula has not been extensively validated. Use of the eGFR is not recommended in the following populations:< br/>
Gwen viduals with unstable creatinine concentration s, including patients and those with serious co-morbid conditions.<b r/>
Patie nts with extremes in muscle mass or diet.

The data above are obtained from the National Kidney Disease Education Program (NKDEP) which additionally recommends that when the eGFR is used in patients with extremes of body mass index for purposes of drug dosing, the eGFR should be multiplied by the estimated BMI. CHEM PANEL Calcium Lvl 8.3 8.5 - 10.5 03/20 [facility] CHEM PANEL CO2 26 24 - 32 03/20 [facility] CHEM PANEL Potassium 4.1 3.5 - 5.1 03/20 MH Lvl /2017 [facility] CHEM PANEL Chloride Lvl 102 95 - 109 03/20 [facility] CHEM PANEL BUN 12 7 - 22 03/20 /2017 [facility] CHEM PANEL Creatinine 1.03 0.50 - 03/20 MH Lvl 1.40 [facility] CHEM PANEL Sodium Lvl 140 135 - 145 03/20 [facility] CHEM PANEL Glucose Lvl 394 70 - 99 03/20 [facility] CHEM PANEL AGAP 16.1 10.0 - 03/20 20.0 [facility] HEMATOLOGY Basophils # 0.1 0.0 - 0.2 03/20 [facility] HEMATOLOGY Basophils 0.7 0.0 - 1.0 03/20 [facility] HEMATOLOGY Eosinophils 0.2 0.0 - 0.5 03/20 MH # /2017 [facility] HEMATOLOGY Lymphocytes 30.3 20.0 - 03/20 MH 40.0 /2017 [facility] HEMATOLOGY Monocytes 7.9 2.0 - 12.0 03/20 [facility] HEMATOLOGY Eosinophils 2.5 0.0 - 4.0 03/20 [facility] HEMATOLOGY Segs 58.6 45.0 - 03/20 75.0 /2017 [facility] HEMATOLOGY Neutrophils 5.4 1.5 - 8.1 03/20 MH # /2017 [facility] HEMATOLOGY Lymphocytes 2.8 1.0 - 5.5 03/20 MH # /2017 [facility] HEMATOLOGY Monocytes # 0.7 0.0 - 0.8 03/20 [facility] HEMATOLOGY PTT 27.5 22.9 - 03/20 MH 35.8 /2017 [facility] HEMATOLOGY PT 12.9 12.0 - 03/20 MH 14.7 [facility] HEMATOLOGY INR 0.97 0.85 - 03/20 MH 1.17 [facility] HEMATOLOGY WBC 9.2 3.7 - 10.4 03/20 [facility] HEMATOLOGY RBC 3.90 4.20 - 03/20 5.40 /2017 [facility] HEMATOLOGY Hct 35.1 36.0 - 03/20 MH 48.0 /2017 [facility] HEMATOLOGY Hgb 11.6 12.0 - 03/20 MH 16.0 [facility] HEMATOLOGY MCV 90.0 80.0 - 03/[address] [facility] HEMATOLOGY RDW 14.5 11.5 - 03/[address] [facility] HEMATOLOGY MCHC 33.0 32.0 - 03/[address] [facility] HEMATOLOGY MCH 29.7 27.0 - 03/20 31.0 [facility] Platelet 278 133 - 450 03/20 [facility] MPV 9.8 7.4 - 10.4 03/20 [facility] Factor VIII 227 50 - 242 03/11 [facility] HEMATOLOGY F5 Leiden Negative 03/11 PCR (03/11/18 3:22 PM) [facility] F5 Leiden FACTOR V 03/11 Intrp LEIDEN: [facility] Negative INTERPRETA TION: Molecular analysis for the Factor V Leiden, [id number] mutation was negative. Other causes of activated protein C resistance and hereditary forms of venous thrombosis are not ruled out. Final diagnosis requires correlatio n with clinical history and other pertinent laboratory findings. Where appropriat e, medical consultati on and/or genetic counseling should be offered to inform and explain the risk implicatio ns and genetic implicatio ns of these test results. ASSAY LIMITATION S: The assay uses the FDA-cleare d Karen Factor V Leiden IVD([place] ase chain reaction/F RET detection) kit, [employer] Cocrystal Discovery LC Instrument and the [employer] 1.2 Instrument . A 222-bp fragment of Factor V gene (FV) containing the Factor V Leiden sequence is amplified in the assay. The assay is designed to detect the G [id number] mutation only. Other causes of activated protein C resistance and hereditary forms of venous thrombosis are not ruled out. However, melting curve analysis may implicate the presence of possible rare mutations at positions 1689, 1692 and 1696. (Further testing will be recommende d in the report). A minimum detection level is 202 copies of Factor V Leiden per reaction. The level of agreement between the Factor V Leiden Kit and sequence analysis was 99.4%. The test result must be interprete d along with the patient's clinical history and relevant laboratory data. This assay has been validated by [facility] . HEMATOLOGY AT III Func 105 77 - 140 03/11 [facility] HEMATOLOGY Protein S 99 54 - 137 03/[address] [facility] HEMATOLOGY Protein C 137 72 - 147 03/[address] [facility] IMMUNOLOGY Homocyst Tot 9.3 3.7 - 13.9 03/[address] [facility] IMMUNOLOGY Cardiolipin 0.5 <=19.9 APL 03/[address] [facility] IMMUNOLOGY Cardiolipin <1.6 <=19.9 GPL 03/[address] [facility] IMMUNOLOGY Cardiolipin 1.1 <=19.9 MPL 03/[address] [facility] LIPIDS VLDL See Note 7 03/11 Result MH *NA* /2017 Comment: VLDL [facility] (03/11/18 6:56 AM) - Cholesterol level cannot be accurately calculated due to very high triglycerides (>400 mg/dL). LIPIDS Chol 277 <=199 03/11 mg/dL [facility] LIPIDS Trig 575 <=149 03/11 mg/dL [facility] LIPIDS HDL 29 >=61 mg/dL 03/11 [facility] LIPIDS LDL See Note <=99 mg/dL 03/11 Result (Calculated) mg/dL Comment: LDL [facility] cholesterol cannot be calculated due to very high triglycerides (>400 mg/dL). Recommend Direct LDL if clinically indicated. LIPIDS CHD Risk 9.55 3.90 - 03/[address] [facility] DRUG U Opiate Scr Positive Negative 03/11 SCREEN *ABN* [facility] (03/10/18 11:50 PM) DRUG UDS Note See Note 03/11 MH SCREEN (03/10/18 11:50 PM) /2017 [facility] DRUG U Negative Negative 03/11 SCREEN Phencyclidin *NA* [facility] e Scr (03/10/18 11:50 PM) DRUG U Cocaine Negative Negative 03/11 MH SCREEN Scr *NA* [facility] (03/10/18 11:50 PM) DRUG U Benzodiaz Positive Negative 03/11 MH SCREEN Scr *ABN* [facility] (03/10/18 11:50 PM) DRUG U Cannab Scr Negative Negative 03/11 MH SCREEN *NA* [facility] (03/10/18 11:50 PM) DRUG U Merline Scr Negative Negative 03/11 MH SCREEN *NA* [facility] (03/10/18 11:50 PM) DRUG U Amph Scr Negative Negative 03/11 SCREEN *NA* [facility] (03/10/18 11:50 PM) URINE AND UA 0.2 0.1 - 1.0 03/11 STOOL Urobilinogen /2017 [facility] URINE AND UA Blood Moderate Negative 03/11 STOOL *ABN* [facility] (03/10/18 11:50 PM) URINE AND UA Bili Negative Negative 03/11 STOOL *NA* /2017 [facility] (03/10/18 11:50 PM) URINE AND UA Leuk Est Negative Negative 03/11 STOOL (03/10/18 11:50 PM) URINE AND UA Nitrite Negative Negative 03/11 STOOL (03/10/18 11:50 PM) [facility] URINE AND UA Ketones Trace Negative 03/11 STOOL *ABN* [facility] (03/10/18 11:50 PM) URINE AND UA Glucose 250 Negative 03/11 STOOL *ABN* [facility] (03/10/18 11:50 PM) URINE AND UA Protein Trace Negative 03/11 STOOL *ABN* [facility] (03/10/18 11:50 PM) URINE AND UA pH 6.5 5.0 - 8.0 03/[address] [facility] URINE AND UA Spec Grav 1.010 <=1.030 03/[address] [facility] URINE AND UA Turbidity Clear Clear 03/11 STOOL (03/10/18 11:50 PM) [facility] URINE AND UA Color Yellow Yellow 03/11 STOOL *NA* /2017 [facility] (03/10/18 11:50 PM) URINE AND UA WBC 5 0 - 5 03/[address] [facility] URINE AND UA Bacteria Occasional None Seen 03/11 STOOL /HPF /HPF [facility] URINE AND UA RBC 8 0 - 2 03/[address] [facility] URINE AND UA Sq Epi Many /LPF Few /LPF 03/[address] [facility] LIPIDS VLDL See Note 8 03/10 Result *NA* /2017 Comment: VLDL [facility] (03/10/18 5:03 PM) - Cholesterol level cannot be accurately calculated due to very high triglycerides (>400 mg/dL). LIPIDS CHD Risk 9.57 3.90 - 03/10 5.80 /2017 [facility] LIPIDS LDL See Note <=99 mg/dL 03/10 Result (Calculated) mg/dL Comment: LDL [facility] cholesterol cannot be calculated due to very high triglycerides (>400 mg/dL). Recommend Direct LDL if clinically indicated. LIPIDS HDL 30 >=61 mg/dL 03/10 [facility] LIPIDS Chol 287 <=199 03/10 mg/dL [facility] LIPIDS Trig 770 <=149 03/10 mg/dL [facility] SPECIAL Hgb A1C 13.1 <=5.6 % 03/10 CHEMISTRY /2017 [facility] CARDIAC Troponin-I <0.02 0.00 - 03/[address] [facility] CHEM PANEL Glucose Lvl 407 70 - 99 03/10 Result Comment: [facility] Critical Result(s) called to Mami Reynolds at 03/10/2018 12:17 by Bridgette Le. Read back OK. CHEM PANEL Sodium Lvl 138 135 - 145 03/10 [facility] CHEM PANEL Potassium 4.7 3.5 - 5.1 03/10 Lvl /2017 [facility] CHEM PANEL Chloride Lvl 101 95 - 109 03/10 [facility] CHEM PANEL Calcium Lvl 8.7 8.5 - 10.5 03/10 [facility] CHEM PANEL AGAP 15.7 10.0 - 03/[address] [facility] CHEM PANEL CO2 26 24 - 32 03/10 [facility] CHEM PANEL BUN 9 7 - 22 03/10 [facility] CHEM PANEL Creatinine 0.86 0.50 - 03/[address] [facility] CHEM PANEL eGFR 92 03/10 Result Comment: The [facility] eGFR is calculated using the CKD-EPI formula. In most young, healthy individuals the eGFR will be >90 mL/min/1.73m2 . The eGFR declines with age. An eGFR of 60-89 may be normal in some populations, particularly the elderly, for whom the CKD-EPI formula has not been extensively validated. Use of the eGFR is not recommended in the following populations:< br/>
Gwen viduals with unstable creatinine concentration s, including patients and those with serious co-morbid conditions.<b r/>
Patie nts with extremes in muscle mass or diet.

The data above are obtained from the National Kidney Disease Education Program (NKDEP) which additionally recommends that when the eGFR is used in patients with extremes of body mass index for purposes of drug dosing, the eGFR should be multiplied by the estimated BMI. HEMATOLOGY Basophils # 0.1 0.0 - 0.2 03/10 /2017 [facility] HEMATOLOGY Eosinophils 0.3 0.0 - 0.5 03/10 MH # /2017 [facility] HEMATOLOGY Neutrophils 5.5 1.5 - 8.1 03/10 MH # /2017 [facility] HEMATOLOGY Lymphocytes 2.5 1.0 - 5.5 03/10 MH # /2017 [facility] HEMATOLOGY Monocytes # 0.5 0.0 - 0.8 03/10 /2017 [facility] HEMATOLOGY Basophils 1.1 0.0 - 1.0 03/10 /2017 [facility] HEMATOLOGY Segs 61.9 45.0 - 03/10 MH 75.0 /2017 [facility] HEMATOLOGY Lymphocytes 27.9 20.0 - 03/10 MH 40.0 /2017 [facility] HEMATOLOGY Monocytes 6.1 2.0 - 12.0 03/10 [facility] HEMATOLOGY Eosinophils 3.0 0.0 - 4.0 03/10 [facility] HEMATOLOGY MCHC 35.1 32.0 - 03/10 36.0 /2017 [facility] HEMATOLOGY RDW 14.7 11.5 - 03/10 14.5 /2017 [facility] HEMATOLOGY MCV 88.4 80.0 - 03/10 98.0 /2017 [facility] HEMATOLOGY MCH 31.0 27.0 - 03/10 MH 31.0 /2017 [facility] HEMATOLOGY Hct 36.4 36.0 - 03/10 48.0 /2017 [facility] HEMATOLOGY Hgb 12.8 12.0 - 03/[address] [facility] HEMATOLOGY WBC 8.9 3.7 - 10.4 03/10 [facility] HEMATOLOGY MPV 10.3 7.4 - 10.4 03/10 [facility] HEMATOLOGY Platelet 260 133 - 450 03/10 [facility] HEMATOLOGY RBC 4.12 4.20 - 03/[address] [facility] CARDIAC Troponin-I <0.02 0.00 - 03/[address] [facility] CARDIAC Troponin-I <0.02 0.00 - 03/[address] [facility] CHEM PANEL Glucose Lvl 447 70 - 99 03/10 Result Comment: [facility] Critical Result(s) called to RN. Pily Perry at 03/10/2018 03:26 by naga. Read back OK. CHEM PANEL BUN 10 7 - 22 03/10 [facility] CHEM PANEL Potassium 3.8 3.5 - 5.1 03/10 MH Lvl /2018 [facility] CHEM PANEL Sodium Lvl 138 135 - 145 03/10 [facility] CHEM PANEL Chloride Lvl 99 95 - 109 03/10 [facility] CHEM PANEL Creatinine 1.02 0.50 - 03/10 MH Lvl 1.40 /2017 [facility] CHEM PANEL eGFR 75 03/10 Result MH Comment: The [facility] eGFR is calculated using the CKD-EPI formula. In most young, healthy individuals the eGFR will be >90 mL/min/1.73m2 . The eGFR declines with age. An eGFR of 60-89 may be normal in some populations, particularly the elderly, for whom the CKD-EPI formula has not been extensively validated. Use of the eGFR is not recommended in the following populations:< br/>
Gwen viduals with unstable creatinine concentration s, including patients and those with serious co-morbid conditions.<b r/>
Patie nts with extremes in muscle mass or diet.

The data above are obtained from the National Kidney Disease Education Program (NKDEP) which additionally recommends that when the eGFR is used in patients with extremes of body mass index for purposes of drug dosing, the eGFR should be multiplied by the estimated BMI. CHEM PANEL CO2 26 24 - 32 03/10 [facility] CHEM PANEL Calcium Lvl 8.7 8.5 - 10.5 03/10 [facility] CHEM PANEL AGAP 16.8 10.0 - 03/[address] [facility] HEMATOLOGY Monocytes 7.2 2.0 - 12.0 03/10 [facility] HEMATOLOGY Segs 53.9 45.0 - 03/[address] [facility] HEMATOLOGY Lymphocytes 35.0 20.0 - 03/[address] [facility] HEMATOLOGY Eosinophils 0.3 0.0 - 0.5 03/10 MH # /2018 [facility] HEMATOLOGY Basophils # 0.1 0.0 - 0.2 03/10 [facility] HEMATOLOGY Basophils 0.8 0.0 - 1.0 03/10 [facility] HEMATOLOGY Neutrophils 5.0 1.5 - 8.1 03/10 MH # /2018 [facility] HEMATOLOGY Eosinophils 3.1 0.0 - 4.0 03/10 /2017 [facility] HEMATOLOGY Lymphocytes 3.3 1.0 - 5.5 03/10 MH # /2018 [facility] HEMATOLOGY Monocytes # 0.7 0.0 - 0.8 03/10 /2017 [facility] HEMATOLOGY MCV 90.1 80.0 - 03/10 98.0 /2017 [facility] HEMATOLOGY MCH 31.1 27.0 - 03/[address] [facility] HEMATOLOGY Platelet 250 133 - 450 03/10 /2017 [facility] HEMATOLOGY MPV 10.3 7.4 - 10.4 03/10 /2017 [facility] HEMATOLOGY RBC 4.19 4.20 - 03/10 MH 5.40 /2017 [facility] HEMATOLOGY Hgb 13.0 12.0 - 03/10 MH 16.0 /2017 [facility] HEMATOLOGY WBC 9.4 3.7 - 10.4 03/10 /2017 [facility] HEMATOLOGY Hct 37.7 36.0 - 03/[address] [facility] HEMATOLOGY MCHC 34.6 32.0 - 03/10 36.0 /2017 [facility] HEMATOLOGY RDW 15.0 11.5 - 03/[address] [facility] CARDIAC Troponin-I <0.02 0.00 - 02/[address] [facility] CARDIAC Troponin-I <0.02 0.00 - 02/[address] [facility] LIPIDS HDL 35 >=61 mg/dL 02/04 [facility] LIPIDS Chol 363 <=199 02/04 mg/dL [facility] LIPIDS Trig 276 <=149 02/04 mg/dL /2017 [facility] LIPIDS CHD Risk 10.37 3.90 - 02/04 5.80 /2017 [facility] LIPIDS VLDL 55 02/[address] [facility] LIPIDS LDL 273 <=99 mg/dL 02/04 (Calculated) [facility] CARDIAC Total CK 275 12 - 191 02/04 ENZYMES /2017 [facility] CARDIAC Troponin-I <0.02 0.00 - 02/[address] [facility] CARDIAC BNP 17 <=100 02/04 ENZYMES pg/mL /2017 [facility] CHEM PANEL B/C Ratio 10 6 - 25 02/04 [facility] CHEM PANEL Globulin 4.3 2.7 - 4.2 02/04 [facility] CHEM PANEL A/G Ratio 0.7 0.7 - 1.6 02/04 [facility] CHEM PANEL AGAP 19.5 10.0 - 02/04 MH 20.0 /2017 [facility] CHEM PANEL eGFR 55 10 Result MH /2018 Comment: The [facility] eGFR is calculated using the CKD-EPI formula. In most young, healthy individuals the eGFR will be >90 mL/min/1.73m2 . The eGFR declines with age. An eGFR of 60-89 may be normal in some populations, particularly the elderly, for whom the CKD-EPI formula has not been extensively validated. Use of the eGFR is not recommended in the following populations:< br/>
Gwen viduals with unstable creatinine concentration s, including patients and those with serious co-morbid conditions.<b r/>
Patie nts with extremes in muscle mass or diet.

The data above are obtained from the National Kidney Disease Education Program (NKDEP) which additionally recommends that when the eGFR is used in patients with extremes of body mass index for purposes of drug dosing, the eGFR should be multiplied by the estimated BMI. CHEM PANEL Chloride Lvl 102 95 - 109 02/04 [facility] CHEM PANEL CO2 21 24 - 32 02/04 [facility] CHEM PANEL Calcium Lvl 8.2 8.5 - 10.5 02/04 [facility] CHEM PANEL Albumin Lvl 3.2 3.5 - 5.0 02/04 [facility] CHEM PANEL ALT 20 0 - 65 02/04 [facility] CHEM PANEL Alk Phos 92 39 - 136 02/04 [facility] CHEM PANEL AST 15 0 - 37 02/04 [facility] CHEM PANEL Total 7.5 6.4 - 8.4 02/04 [facility] CHEM PANEL Bili Total 0.2 0.2 - 1.3 02/04 [facility] CHEM PANEL Glucose Lvl 337 70 - 99 02/04 [facility] CHEM PANEL Potassium 3.5 3.5 - 5.1 02/[address] [facility] CHEM PANEL Sodium Lvl 139 135 - 145 02/04 [facility] CHEM PANEL Creatinine 1.31 0.50 - 02/[address] [facility] CHEM PANEL BUN 13 7 - 22 02/04 [facility] HEMATOLOGY MCV 89.9 80.0 - 02/[address] [facility] HEMATOLOGY Hct 35.9 36.0 - 02/[address] [facility] HEMATOLOGY MPV 9.8 7.4 - 10.4 02/04 [facility] HEMATOLOGY Platelet 238 133 - 450 02/04 [facility] HEMATOLOGY RDW 15.0 11.5 - 02/04 14.5 /2017 [facility] HEMATOLOGY MCHC 33.9 32.0 - 02/04 36.0 /2017 [facility] HEMATOLOGY MCH 30.5 27.0 - 02/04 31.0 /2018 [facility] HEMATOLOGY RBC 3.99 4.20 - 02/04 5.40 /2017 [facility] HEMATOLOGY Hgb 12.2 12.0 - 02/04 16.0 /2017 [facility] HEMATOLOGY WBC 7.2 3.7 - 10.4 02/04 [facility] HEMATOLOGY PTT 28.2 22.9 - 02/04 MH 35.8 /2017 [facility] HEMATOLOGY PT 13.0 12.0 - 02/04 14.7 /2017 [facility] HEMATOLOGY INR 0.98 0.85 - 02/04 1.17 /2017 [facility] HEMATOLOGY Monocytes # 0.6 0.0 - 0.8 02/04 [facility] HEMATOLOGY Basophils # 0.1 0.0 - 0.2 02/04 [facility] HEMATOLOGY Eosinophils 0.2 0.0 - 0.5 02/04 # /2017 [facility] HEMATOLOGY Lymphocytes 31.8 20.0 - 02/04 40.0 /2018 [facility] HEMATOLOGY Neutrophils 4.1 1.5 - 8.1 02/04 # /2017 [facility] HEMATOLOGY Segs 56.5 45.0 - 02/04 75.0 /2018 [facility] HEMATOLOGY Monocytes 8.2 2.0 - 12.0 02/04 [facility] HEMATOLOGY Basophils 1.0 0.0 - 1.0 02/04 [facility] HEMATOLOGY Eosinophils 2.5 0.0 - 4.0 02/04 /2017 [facility] HEMATOLOGY Lymphocytes 2.3 1.0 - 5.5 02/04 # /2017 [facility] Culture: <10,000 01/06 Urine CFU/mL /2017 [facility] Skin Mary URINE AND UA <=1.0 0.1 - 1.0 01/06 STOOL Urobilinogen mg/dL /2017 [facility] URINE AND UA Color Ltyellow 01/06 STOOL /2018 [facility] URINE AND UA Mucus Few /LPF None Seen 01/06 STOOL /LPF /2017 [facility] URINE AND UA Bacteria Occasional None Seen 01/06 STOOL /HPF /HPF /2017 [facility] URINE AND UA RBC 10 0 - 2 01/06 STOOL [facility] URINE AND UA WBC 57 0 - 5 01/06 STOOL [facility] URINE AND UA Leuk Est Large Negative 01/06 STOOL *ABN* /2017 [facility] (01/06/18 2:40 PM) URINE AND UA Nitrite Negative Negative 01/06 STOOL (01/06/18 2:40 PM) [facility] URINE AND UA Blood Small Negative 01/06 STOOL *ABN* [facility] (01/06/18 2:40 PM) URINE AND UA Sq Epi Few /LPF Few /LPF 01/06 STOOL [facility] URINE AND UA Protein Negative Negative 01/06 STOOL mg/dL mg/dL [facility] URINE AND UA Turbidity Clear Clear 01/06 STOOL (01/06/18 2:40 PM) [facility] URINE AND UA pH 5.0 5.0 - 8.0 01/06 [facility] URINE AND UA Spec Grav 1.017 <=1.030 01/[address] [facility] URINE AND UA Bili Negative Negative 01/06 STOOL *NA* /2017 [facility] (01/06/18 2:40 PM) URINE AND UA Ketones Negative Negative 01/06 STOOL mg/dL mg/dL /2017 URINE AND UA Glucose 500 mg/dL Negative 01/06 STOOL mg/dL [facility] URINE CHEM U Preg Negative Negative 01/06 (01/06/18 2:40 PM) [facility] CARDIAC Troponin-I <0.02 0.00 - 01/06 ENZYMES 0.40 /2017 [facility] CHEM PANEL eGFR 54 01/[address] [facility] Comment: The [facility] eGFR is calculated using the CKD-EPI formula. In most young, healthy individuals the eGFR will be >90 mL/min/1.73m2 . The eGFR declines with age. An eGFR of 60-89 may be normal in some populations, particularly the elderly, for whom the CKD-EPI formula has not been extensively validated. Use of the eGFR is not recommended in the following populations:< br/>
Gwne viduals with unstable creatinine concentration s, including patients and those with serious co-morbid conditions.<b r/>
Patie nts with extremes in muscle mass or diet.

The data above are obtained from the National Kidney Disease Education Program (NKDEP) which additionally recommends that when the eGFR is used in patients with extremes of body mass index for purposes of drug dosing, the eGFR should be multiplied by the estimated BMI. CHEM PANEL Bili Total <0.1 0.2 - 1.3 01/06 [facility] CHEM PANEL Alk Phos 118 39 - 136 01/06 [facility] CHEM PANEL AST 8 0 - 37 01/06 [facility] CHEM PANEL B/C Ratio 10 6 - 25 01/06 [facility] CHEM PANEL Globulin 4.2 2.7 - 4.2 01/06 [facility] CHEM PANEL A/G Ratio 0.8 0.7 - 1.6 01/06 [place] CHEM PANEL Total 7.6 6.4 - 8.4 01/[address] [facility] CHEM PANEL Albumin Lvl 3.4 3.5 - 5.0 01/06 [facility] CHEM PANEL ALT 24 0 - 65 01/06 [facility] CHEM PANEL Chloride Lvl 97 95 - 109 01/06 [facility] CHEM PANEL CO2 25 24 - 32 01/06 [facility] CHEM PANEL Calcium Lvl 8.4 8.5 - 10.5 01/06 [facility] CHEM PANEL AGAP 15.0 10.0 - 01/[address] [facility] CHEM PANEL Glucose Lvl 474 70 - 99 01/06 Result Comment: [facility] Critical Result(s) called to Rodrick at 01/06/2018 15:21 by zackery. Read back OK. CHEM PANEL Sodium Lvl 133 135 - 145 01/06 [facility] CHEM PANEL Potassium 4.0 3.5 - 5.1 01/06 MH Lvl /2017 [facility] CHEM PANEL Creatinine 1.33 0.50 - 01/[address] [facility] CHEM PANEL BUN 13 7 - 22 01/06 [facility] HEMATOLOGY Monocytes 5.6 2.0 - 12.0 01/06 [facility] HEMATOLOGY Eosinophils 2.1 0.0 - 4.0 01/06 [facility] HEMATOLOGY Segs 64.7 45.0 - 01/06 MH 75.0 /2018 [facility] HEMATOLOGY Lymphocytes 26.6 20.0 - 01/06 MH 40.0 /2018 [facility] HEMATOLOGY Basophils # 0.1 0.0 - 0.2 01/06 [facility] HEMATOLOGY Basophils 1.0 0.0 - 1.0 01/06 MH /2017 [facility] HEMATOLOGY Monocytes # 0.6 0.0 - 0.8 01/06 MH /2017 [facility] HEMATOLOGY Eosinophils 0.2 0.0 - 0.5 01/06 MH # /2017 [facility] HEMATOLOGY Neutrophils 6.6 1.5 - 8.1 01/06 MH # /2017 [facility] HEMATOLOGY Lymphocytes 2.7 1.0 - 5.5 01/06 MH # /2017 [facility] HEMATOLOGY Platelet 285 133 - 450 01/06 /2017 [facility] HEMATOLOGY MPV 9.7 7.4 - 10.4 01/06 MH /2017 [facility] HEMATOLOGY MCHC 34.0 32.0 - 01/06 MH 36.0 /2017 [facility] HEMATOLOGY RDW 14.1 11.5 - 01/06 MH 14.5 /2017 [facility] HEMATOLOGY Hct 37.6 36.0 - 01/06 MH 48.0 /2017 [facility] HEMATOLOGY MCV 90.0 80.0 - 01/06 MH 98.0 /2017 [facility] HEMATOLOGY RBC 4.17 4.20 - 01/[address] [facility] HEMATOLOGY Hgb 12.8 12.0 - 01/06 MH 16.0 /2017 [facility] HEMATOLOGY MCH 30.6 27.0 - 01/06 MH 31.0 /2017 [facility] HEMATOLOGY WBC 10.2 3.7 - 10.4 01/06 MH /2017 [facility] CARDIAC Troponin-I <0.02 0.00 - 10/[address] [facility] CARDIAC Total CK 80 12 - 191 10/15 MH ENZYMES /2017 [facility] CARDIAC CK MB <1.0 0.5 - 3.6 10/15 ENZYMES /2017 [facility] CARDIAC CK MB Index <1.2 0.0 - 2.5 10/15 ENZYMES /2018 [facility] LIPIDS Trig 308 <=149 10/15 MH mg/dL /2017 [facility] LIPIDS Chol 310 <=199 10/15 mg/dL /2017 [facility] LIPIDS HDL 37 >=61 mg/dL 10/15 /2017 [facility] LIPIDS CHD Risk 8.38 3.90 - 10/15 MH 5.80 /2017 [facility] LIPIDS LDL 211 <=99 mg/dL 10/15 MH (Calculated) [facility] LIPIDS VLDL 62 10/15 MH /2017 [facility] CARDIAC Troponin-I <0.02 0.00 - 10/[address] [facility] CARDIAC Total CK 85 12 - 191 10/15 ENZYMES /2018 [facility] CARDIAC CK MB Index <1.2 0.0 - 2.5 10/15 ENZYMES /2017 [facility] CARDIAC CK MB <1.0 0.5 - 3.6 10/[address] [facility] CARDIAC Troponin-I <0.02 0.00 - 10/14 ENZYMES 0.40 /2017 [facility] URINE AND UA <=1.0 0.1 - 1.0 10/14 STOOL Urobilinogen mg/dL [facility] URINE AND UA Color Colorless 10/[address] [facility] URINE AND UA RBC <1 0 - 2 10/14 [facility] URINE AND UA Turbidity Clear Clear 10/14 [facility] (10/14/17 1:35 PM) [facility] URINE AND UA Spec Grav 1.028 <=1.030 10/14 [facility] URINE AND UA Protein Negative Negative 10/14 ST[facility] mg/dL mg/dL [facility] URINE AND UA Glucose 500 mg/dL Negative 10/14 STOOL mg/dL [facility] URINE AND UA pH 5.0 5.0 - 8.0 10/[address] [facility] URINE AND UA WBC <1 0 - 5 10/[address] [facility] URINE AND UA Leuk Est Negative Negative 10/14 [facility] (10/14/17 1:35 PM) [facility] URINE AND UA Sq Epi Occasional Few /LPF 10/14 STOOL /LPF /2017 [facility] URINE AND UA Bili Negative Negative 10/14 [facility] *NA* /2017 [facility] (10/14/17 1:35 PM) URINE AND UA Ketones Negative Negative 10/14 [facility] mg/dL mg/dL [facility] URINE AND UA Blood Negative Negative 10/14 ST[facility] (10/14/17 1:35 PM) [facility] URINE AND UA Nitrite Negative Negative 10/14 [facility] (10/14/17 1:35 PM) [facility] CHEM PANEL eGFR 84 10/14 Comment: The [facility] eGFR is calculated using the CKD-EPI formula. In most young, healthy individuals the eGFR will be >90 mL/min/1.73m2 . The eGFR declines with age. An eGFR of 60-89 may be normal in some populations, particularly the elderly, for whom the CKD-EPI formula has not been extensively validated. Use of the eGFR is not recommended in the following populations:< br/>
Gwen viduals with unstable creatinine concentration s, including patients and those with serious co-morbid conditions.<b r/>
Patie nts with extremes in muscle mass or diet.

The data above are obtained from the National Kidney Disease Education Program (NKDEP) which additionally recommends that when the eGFR is used in patients with extremes of body mass index for purposes of drug dosing, the eGFR should be multiplied by the estimated BMI. CHEM PANEL Bili Total 0.2 0.2 - 1.3 10/14 [facility] CHEM PANEL ALT 20 0 - 65 10/14 [facility] CHEM PANEL A/G Ratio 0.9 0.7 - 1.6 10/14 [facility] CHEM PANEL Alk Phos 111 39 - 136 10/14 [facility] CHEM PANEL AST 7 0 - 37 10/14 [facility] CHEM PANEL Albumin Lvl 3.4 3.5 - 5.0 10/14 [facility] CHEM PANEL Total 7.3 6.4 - 8.4 10/14 Protein [facility] CHEM PANEL Globulin 3.9 2.7 - 4.2 10/14 [facility] CHEM PANEL B/C Ratio 16 6 - 25 10/14 [facility] CHEM PANEL Calcium Lvl 8.6 8.5 - 10.5 10/14 [facility] CHEM PANEL CO2 22 24 - 32 10/14 [facility] CHEM PANEL AGAP 16.8 10.0 - 10/14 MH 20.0 /2017 [facility] CHEM PANEL Chloride Lvl 105 95 - 109 10/14 [facility] CHEM PANEL Potassium 3.8 3.5 - 5.1 10/14 MH Lvl /2017 [facility] CHEM PANEL Sodium Lvl 140 135 - 145 10/14 [facility] CHEM PANEL Creatinine 0.93 0.50 - 10/14 MH Lvl 1.40 /2017 [facility] CHEM PANEL BUN 15 7 - 22 10/14 [facility] CHEM PANEL Glucose Lvl 468 70 - 99 10/14 Result Comment: [facility] Critical Result(s) called to Sherron Steven at 10/14/2017 13:42 by Bridgette Le. Read back OK. HEMATOLOGY Basophils # 0.1 0.0 - 0.2 10/14 [facility] HEMATOLOGY Eosinophils 0.6 0.0 - 0.5 10/14 # /2017 [facility] HEMATOLOGY Monocytes 5.8 2.0 - 12.0 10/14 [facility] HEMATOLOGY Eosinophils 7.6 0.0 - 4.0 10/14 [facility] HEMATOLOGY Basophils 1.0 0.0 - 1.0 10/14 [facility] HEMATOLOGY Segs 64.1 45.0 - 10/[address] [facility] HEMATOLOGY Lymphocytes 21.5 20.0 - 10/[address] [facility] HEMATOLOGY Monocytes # 0.5 0.0 - 0.8 10/14 [facility] HEMATOLOGY Lymphocytes 1.7 1.0 - 5.5 10/14 # [facility] Segs-Bands # 5.1 1.5 - 8.1 10/14 [facility] MPV 9.9 7.4 - 10.4 10/14 [facility] Hct 34.7 36.0 - 10/14 48.0 [facility] MCH 29.8 27.0 - 10/14 MH 31.0 [facility] Hgb 11.3 12.0 - 10/14 16.0 [facility] MCV 91.5 80.0 - 10/14 98.0 [facility] RBC 3.79 4.20 - 10/14 5.40 [facility] Platelet 257 133 - 450 10/14 [facility] MCHC 32.6 32.0 - 10/14 36.0 [facility] RDW 14.5 11.5 - 10/14 14.5 [facility] WBC 8.0 3.7 - 10.4 10/14 [facility] CHEM PANEL Phosphorus 4.3 2.5 - 4.5 09/22 [facility] CHEM PANEL eGFR 118 09/22 Result Comment: The Medical eGFR is Center calculated using the CKD-EPI formula. In most young, healthy individuals the eGFR will be >90 mL/min/1.73m2 . The eGFR declines with age. An eGFR of 60-89 may be normal in some populations, particularly the elderly, for whom the CKD-EPI formula has not been extensively validated. Use of the eGFR is not recommended in the following populations:< br/>
Gwen viduals with unstable creatinine concentration s, including patients and those with serious co-morbid conditions.<b r/>
Patie nts with extremes in muscle mass or diet.

The data above are obtained from the National Kidney Disease Education Program (NKDEP) which additionally recommends that when the eGFR is used in patients with extremes of body mass index for purposes of drug dosing, the eGFR should be multiplied by the estimated BMI. CHEM PANEL CO2 23 24 - 32 06/ [address] CHEM PANEL Calcium Lvl 8.9 8.5 - 10.5 09/[address] CHEM PANEL Sodium Lvl 141 135 - 145 06/ [address] CHEM PANEL Potassium 4.9 3.5 - 5.1 09/22 [facility] /[address] [place] [address] CHEM PANEL Chloride Lvl 107 95 - 109 09/[address] CHEM PANEL Glucose Lvl 225 70 - 99 09/[address] CHEM PANEL BUN 16 7 - 22 09/[address] CHEM PANEL Creatinine 0.70 0.50 - / [facility] 1.40 [facility] CHEM PANEL AGAP 15.9 10.0 - 06 [facility] 20.[address] CHEM PANEL Magnesium 2.3 1.8 - 2.4 06/ [facility] /[address] [place] [address] HEMATOLOGY Monocytes # 0.5 0.0 - 0.8 06/ [address] HEMATOLOGY Lymphocytes 3.1 1.0 - 5.5 / [address] HEMATOLOGY Basophils # 0.1 0.0 - 0.2 06/ [address] HEMATOLOGY Eosinophils 0.6 0.0 - 0.5 06/ [address] HEMATOLOGY Segs 51.9 45.0 - 06/ [place] 75.0 /2018 [facility] HEMATOLOGY Lymphocytes 34.9 20.0 - 06/01 [place] 40.0 2018 [facility] HEMATOLOGY Basophils 1.1 0.0 - 1.0 06/ [address] HEMATOLOGY Eosinophils 6.5 0.0 - 4.0 06/ [address] HEMATOLOGY Segs-Bands # 4.6 1.5 - 8.1 06/ [address] HEMATOLOGY Monocytes 5.6 2.0 - 12.0 06/ [place] [address] [facility] HEMATOLOGY Platelet 256 133 - 450 06 [facility] HEMATOLOGY MPV 9.6 7.4 - 10.4 06 [facility] HEMATOLOGY MCHC 33.2 32.0 - 09/22 [facility] 36.0 /2017 [facility] HEMATOLOGY RDW 14.1 11.5 - 09/22 [facility] 14.5 /2017 [facility] HEMATOLOGY Hgb 10.8 12.0 - 09/22 [facility] 16.0 /2017 [facility] HEMATOLOGY Hct 32.5 36.0 - 09/22 [place] 48.0 /2017 [facility] HEMATOLOGY MCH 30.5 27.0 - 06 [facility] 31.0 /2017 [facility] HEMATOLOGY MCV 91.8 80.0 - 09/22 [facility] 98.0 /2017 [facility] HEMATOLOGY RBC 3.54 4.20 - 09/22 [facility] 5.40 /2017 [facility] HEMATOLOGY WBC 8.8 3.7 - 10.4 09/22 [facility] HEMATOLOGY PT 13.3 12.0 - 09/22 [facility] 14.7 [facility] HEMATOLOGY PTT 27.9 22.9 - 09/22 [facility] 35.8 /2017 [facility] HEMATOLOGY INR 1.01 0.85 - 09/22 [place] 1.17 [facility] PARATHYROI Ca Norm WB 1.11 1.05 - 09/22 [facility] D PROFILE 1.25 [facility] PARATHYROI Ca Ion WB 1.10 1.05 - 09/22 [facility] D PROFILE 1.25 [facility] ELECTROLYT Potassium 3.8 3.5 - 5.1 09/22 [facility] BACTERIAL MRSA by PCR Negative 09/21 [facility] - SEROLOGY (09/21/17 2:01 PM) /2017 [facility] SPECIAL Hgb A1C 13.6 <=5.6 % 09/21 [facility] CHEMISTRY /2017 [facility] ELECTROLYT Potassium 3.5 3.5 - 5.1 09/21 [facility] BLOOD BANK Antibody Negative 09/21 [facility] RESULTS Scrn (09/21/17 12:03 AM) /2017 [facility] BLOOD BANK ABO/Rh O POS 09/21 [facility] RESULTS /2017 [facility] CHEM PANEL Phosphorus 3.2 2.5 - 4.5 09/21 [place] /2017 [facility] CHEM PANEL Lactic Acid 1.3 0.5 - 2.2 09/21 [facility] CHEM PANEL Magnesium 1.7 1.8 - 2.4 09/21 [facility] CHEM PANEL eGFR 118 09/21 Result [facility] Comment: The Medical eGFR is Center calculated using the CKD-EPI formula. In most young, healthy individuals the eGFR will be >90 mL/min/1.73m2 . The eGFR declines with age. An eGFR of 60-89 may be normal in some populations, particularly the elderly, for whom the CKD-EPI formula has not been extensively validated. Use of the eGFR is not recommended in the following populations:< br/>
Gwen viduals with unstable creatinine concentration s, including patients and those with serious co-morbid conditions.<b r/>
Patie nts with extremes in muscle mass or diet.

The data above are obtained from the National Kidney Disease Education Program (NKDEP) which additionally recommends that when the eGFR is used in patients with extremes of body mass index for purposes of drug dosing, the eGFR should be multiplied by the estimated BMI. CHEM PANEL CO2 27 24 - 32 09/[address] CHEM PANEL Chloride Lvl 106 95 - 109 09/[address] CHEM PANEL Calcium Lvl 8.7 8.5 - 10.5 09/[address] CHEM PANEL AGAP 13.2 10.0 - 09/21 [facility] 20.0 [facility] CHEM PANEL Glucose Lvl 264 70 - 99 09/[address] CHEM PANEL Creatinine 0.69 0.50 - 09/21 [facility] 1.40 [facility] CHEM PANEL BUN 11 7 - 22 09/[address] CHEM PANEL Sodium Lvl 143 135 - 145 09/[address] HEMATOLOGY Monocytes # 0.4 0.0 - 0.8 09/[address] HEMATOLOGY Lymphocytes 3.3 1.0 - 5.5 09/[address] HEMATOLOGY Basophils # 0.1 0.0 - 0.2 09/[address] HEMATOLOGY Eosinophils 0.5 0.0 - 0.5 09/[address] HEMATOLOGY Segs-Bands # 5.3 1.5 - 8.1 09/21 [facility] HEMATOLOGY Lymphocytes 34.3 20.0 - 09/21 [place] 40.0 [facility] HEMATOLOGY Monocytes 4.5 2.0 - 12.0 09/21 [facility] HEMATOLOGY Eosinophils 5.0 0.0 - 4.0 09/21 [place] [facility] HEMATOLOGY Basophils 0.8 0.0 - 1.0 09/21 [facility] HEMATOLOGY Segs 55.4 45.0 - 09/21 [place] 75.0 [facility] HEMATOLOGY PTT 24.1 22.9 - 09/21 [place] 35.8 [facility] HEMATOLOGY PT 12.8 12.0 - 09/21 [place] 14.7 [facility] HEMATOLOGY INR 0.96 0.85 - 09/21 [place] 1.17 [facility] HEMATOLOGY MCV 89.4 80.0 - 09/21 [place] 98.0 [facility] HEMATOLOGY MCH 30.5 27.0 - 09/21 [place] 31.0 [facility] HEMATOLOGY Hgb 11.2 12.0 - 09/21 [place] 16.0 [facility] HEMATOLOGY Hct 32.9 36.0 - 09/21 [place] 48.0 [facility] HEMATOLOGY RDW 13.5 11.5 - 09/21 [place] 14.5 [facility] HEMATOLOGY Platelet 263 133 - 450 09/21 [facility] HEMATOLOGY MCHC 34.2 32.0 - 09/21 [place] 36.0 /2018 [facility] HEMATOLOGY MPV 10.2 7.4 - 10.4 09/21 [facility] HEMATOLOGY RBC 3.68 4.20 - 09/21 [place] 5.40 /2017 [facility] HEMATOLOGY WBC 9.6 3.7 - 10.4 09/21 [facility] HEMATOLOGY Sed Rate 47 0 - 20 09/21 [facility] IMMUNOLOGY C-REACTIVE 7.4 <=2.9 mg/L 09/21 [facility] PROTEIN [facility] PARATHYROI Ca Ion WB 1.09 1.05 - 09/21 [place] D PROFILE . [facility] PARATHYROI Ca Norm WB 1.14 1.05 - 09/21 [facility] D PROFILE 05.18 [facility] HEMATOLOGY INR 0.87 0.85 - 30 MH 1.17 /2018 [facility] HEMATOLOGY PT 11.8 12.0 - 05 MH 14.7 /2018 [facility] HEMATOLOGY PTT 24.1 22.9 - 05 MH 35.8 /2018 [facility] CARDIAC Troponin-I <0.02 0.00 - 05 MH ENZYMES 0.40 /2018 [facility] CARDIAC Total CK 109 12 - 191 / MH ENZYMES /2018 [facility] CARDIAC CK MB <1.0 0.5 - 3.6 /30 MH ENZYMES /2018 [facility] CARDIAC CK MB Index <0.9 0.0 - 2.5 /30 MH ENZYMES /2018 [facility] CHEM PANEL eGFR 61 / Result Comment: The [facility] eGFR is calculated using the CKD-EPI formula. In most young, healthy individuals the eGFR will be >90 mL/min/1.73m2 . The eGFR declines with age. An eGFR of 60-89 may be normal in some populations, particularly the elderly, for whom the CKD-EPI formula has not been extensively validated. Use of the eGFR is not recommended in the following populations:< br/>
Gwen viduals with unstable creatinine concentration s, including patients and those with serious co-morbid conditions.<b r/>
Patie nts with extremes in muscle mass or diet.

The data above are obtained from the National Kidney Disease Education Program (NKDEP) which additionally recommends that when the eGFR is used in patients with extremes of body mass index for purposes of drug dosing, the eGFR should be multiplied by the estimated BMI. CHEM PANEL Sodium Lvl 134 135 - 145 /[address] [facility] CHEM PANEL Potassium 4.1 3.5 - 5.1 05/30 MH Lvl /2018 [facility] CHEM PANEL Chloride Lvl 100 95 - 109 05/30 MH /2017 [facility] CHEM PANEL Bili Total 0.2 0.2 - 1.3 /30 MH /2017 [facility] CHEM PANEL Alk Phos 123 39 - 136 / MH /2017 [facility] CHEM PANEL Creatinine 1.20 0.50 - 05/30 MH Lvl 1.40 /2017 [facility] CHEM PANEL BUN 10 7 - 22 /30 MH /2017 [facility] CHEM PANEL CO2 25 24 - 32 05/30 MH /2017 [facility] CHEM PANEL Glucose Lvl 579 70 - 99 / Result Comment: [facility] Critical Result(s) called to Sachi tang 09/20/2017 17:26 by karri. Read back OK. CHEM PANEL Albumin Lvl 3.0 3.5 - 5.0 05/[address] [facility] CHEM PANEL Calcium Lvl 8.1 8.5 - 10.5 05/ MH [facility] CHEM PANEL B/C Ratio 8 6 - 25 05/ MH [facility] CHEM PANEL Total 6.7 6.4 - 8.4 05/30 MH Protein /2017 [facility] CHEM PANEL AGAP 13.1 10.0 - 05/ MH 20.0 /2017 [facility] CHEM PANEL AST 26 0 - 37 05/ MH [facility] CHEM PANEL Globulin 3.7 2.7 - 4.2 05/ MH [facility] CHEM PANEL ALT 28 0 - 65 / [facility] CHEM PANEL A/G Ratio 0.8 0.7 - 1.6 05/ [facility] HEMATOLOGY MPV 10.3 7.4 - 10.4 09/20 MH /2017 [facility] HEMATOLOGY RDW 14.0 11.5 - 05 MH 14.5 /2017 [facility] HEMATOLOGY MCH 30.9 27.0 - 05 MH 31.0 /2017 [facility] HEMATOLOGY Platelet 267 133 - 450 05/ MH /2017 [facility] HEMATOLOGY Hct 34.0 36.0 - 05 MH 48.0 /2017 [facility] HEMATOLOGY MCHC 34.1 32.0 - 05 MH 36.0 /2017 [facility] HEMATOLOGY MCV 90.5 80.0 - 05 MH 98.0 /2018 [facility] HEMATOLOGY Hgb 11.6 12.0 - 05 MH 16.0 /2018 [facility] HEMATOLOGY RBC 3.76 4.20 - 05/ MH 5.40 /2018 [facility] HEMATOLOGY WBC 9.8 3.7 - 10.4 05/ MH /2017 [facility] HEMATOLOGY Eosinophils 0.4 0.0 - 0.5 05/30 MH # /2018 [facility] HEMATOLOGY Basophils # 0.1 0.0 - 0.2 05/[address] [facility] HEMATOLOGY Monocytes # 0.5 0.0 - 0.8 05/[address] [facility] HEMATOLOGY Lymphocytes 2.2 1.0 - 5.5 05/30 MH # /2018 [facility] HEMATOLOGY Eosinophils 4.3 0.0 - 4.0 05/30 MH /2017 [facility] HEMATOLOGY Basophils 0.7 0.0 - 1.0 05/30 MH /2018 [facility] HEMATOLOGY Segs-Bands # 6.6 1.5 - 8.1 09/20 [facility] HEMATOLOGY Monocytes 5.0 2.0 - 12.0 09/20 [facility] HEMATOLOGY Segs 67.3 45.0 - 09/20 MH 75.0 /2017 [facility] HEMATOLOGY Lymphocytes 22.7 20.0 - 09/20 [facility] 40.0 [facility] URINE AND UA RBC 1 0 - 2 09/20 [facility] URINE AND UA Color Colorless 09/20 [facility] URINE AND UA <=1.0 0.1 - 1.0 09/20 [facility] Urobilinogen mg/dL [facility] URINE AND UA Leuk Est Negative Negative 09/20 [facility] (09/20/17 4:42 PM) [facility] URINE AND UA Blood Negative Negative 09/20 [facility] (09/20/17 4:42 PM) [facility] URINE AND UA Nitrite Negative Negative 09/20 [facility] (09/20/17 4:42 PM) [facility] URINE AND UA Sq Epi Occasional Few /LPF 09/20 [facility] /LPF /2017 [facility] URINE AND UA WBC <1 0 - 5 09/20 [facility] URINE AND UA Turbidity Clear Clear 09/20 [facility] (09/20/17 4:42 PM) [facility] URINE AND UA Spec Grav 1.026 <=1.030 09/20 [facility] URINE AND UA pH 5.0 5.0 - 8.0 09/20 [facility] URINE AND UA Protein Negative Negative 09/20 [facility] mg/dL mg/dL [facility] URINE AND UA Bili Negative Negative 09/20 [facility] *NA* /2017 [facility] (09/20/17 4:42 PM) URINE AND UA Glucose 500 mg/dL Negative 09/20 [facility] mg/dL URINE AND UA Ketones Negative Negative 09/20 [facility] mg/dL mg/dL [facility] ELECTROLYT AGAP 10.7 10.0 - 08/30 ES 20.0 /2017 [facility] ELECTROLYT eGFR 96 08/30 Result ES /2017 Comment: The [facility] eGFR is calculated using the CKD-EPI formula. In most young, healthy individuals the eGFR will be >90 mL/min/1.73m2 . The eGFR declines with age. An eGFR of 60-89 may be normal in some populations, particularly the elderly, for whom the CKD-EPI formula has not been extensively validated. Use of the eGFR is not recommended in the following populations:< br/>
Gwen viduals with unstable creatinine concentration s, including patients and those with serious co-morbid conditions.<b r/>
Patie nts with extremes in muscle mass or diet.

The data above are obtained from the National Kidney Disease Education Program (NKDEP) which additionally recommends that when the eGFR is used in patients with extremes of body mass index for purposes of drug dosing, the eGFR should be multiplied by the estimated BMI. ELECTROLYT BUN 14 7 - 22 08/[address] [facility] ELECTROLYT Glucose Lvl 379 70 - 99 08/[address] [facility] ELECTROLYT Creatinine 0.83 0.50 - 08/30 ES Lvl 1.40 /2017 [facility] ELECTROLYT Calcium Lvl 9.1 8.5 - 10.5 08/[address] [facility] ELECTROLYT CO2 30 24 - 32 08/[address] [facility] ELECTROLYT Chloride Lvl 100 95 - 109 08/[address] [facility] ELECTROLYT Potassium 3.7 3.5 - 5.1 08/30 [facility] Lvl /2017 [facility] ELECTROLYT Sodium Lvl 137 135 - 145 08/[address] [facility] HEMATOLOGY Lymphocytes 32.2 20.0 - 05 MH 40.0 /2017 [facility] HEMATOLOGY Segs-Bands # 6.1 1.5 - 8.1 08/30 [facility] HEMATOLOGY Eosinophils 2.8 0.0 - 4.0 08/30 [facility] HEMATOLOGY Monocytes 7.0 2.0 - 12.0 08/30 [facility] HEMATOLOGY Segs 57.3 45.0 - [address] [facility] HEMATOLOGY Basophils # 0.1 0.0 - 0.2 08/30 [facility] HEMATOLOGY Lymphocytes 3.4 1.0 - 5.5 08/30 MH # [facility] HEMATOLOGY Monocytes # 0.8 0.0 - 0.8 08/30 [facility] HEMATOLOGY Basophils 0.7 0.0 - 1.0 08/30 [facility] HEMATOLOGY Eosinophils 0.3 0.0 - 0.5 08/30 MH # [facility] HEMATOLOGY RDW 13.7 11.5 - 05/09 MH 14.5 /2017 [facility] [facility] HEMATOLOGY Platelet 283 133 - 450 05 /2017 [facility] HEMATOLOGY MPV 10.4 7.4 - 10.4 08/30 /2017 [facility] HEMATOLOGY Hgb 12.8 12.0 - 08/30 MH 16.0 /2017 [facility] HEMATOLOGY MCV 89.5 80.0 - 08/30 MH 98.0 /2017 [facility] HEMATOLOGY Hct 38.5 36.0 - 08/30 MH 48.0 /2017 [facility] HEMATOLOGY MCH 29.8 27.0 - 05 MH 31.0 /2017 [facility] HEMATOLOGY MCHC 33.3 32.0 - 08/30 MH 36.0 /2017 [facility] HEMATOLOGY RBC 4.30 4.20 - 08/30 MH 5.40 /2017 [facility] HEMATOLOGY WBC 10.7 3.7 - 10.4 08/30 [facility] CARDIAC CK MB Index <0.7 0.0 - 2.5 08/30 ENZYMES /2017 [facility] CARDIAC CK MB <1.0 0.5 - 3.6 08/30 ENZYMES /2017 [facility] CARDIAC Total CK 138 12 - 191 08/30 ENZYMES /2017 [facility] CARDIAC Troponin-I <0.02 0.00 - 08/30 ENZYMES 0.40 /2017 [facility] CARDIAC CK MB <1.0 0.5 - 3.6 08/30 ENZYMES /2017 [facility] CARDIAC CK MB Index <0.7 0.0 - 2.5 08/30 ENZYMES /2017 [facility] CARDIAC Total CK 139 12 - 191 08/30 ENZYMES /2017 [facility] CARDIAC Troponin-I <0.02 0.00 - 08/[address] [facility] LIPIDS VLDL 62 08/30 /2017 [facility] LIPIDS LDL 194 <=99 mg/dL 08/30 (Calculated) /2017 [facility] LIPIDS HDL 42 >=61 mg/dL 08/30 /2017 [facility] LIPIDS CHD Risk 7.10 3.90 - 05 MH 5.80 /2018 [facility] LIPIDS Trig 309 <=149 08/30 mg/dL /2017 [facility] LIPIDS Chol 298 <=199 08/30 mg/dL /2017 [facility] CARDIAC CK MB Index <0.6 0.0 - 2.5 08/29 ENZYMES /2017 [facility] CARDIAC Total CK 164 12 - 191 / ENZYMES /2017 [facility] CARDIAC CK MB <1.0 0.5 - 3.6 08/29 ENZYMES /2017 [facility] CARDIAC Troponin-I <0.02 0.00 - 05/08 ENZYMES 0.40 /2018 [facility] CHEM PANEL eGFR 74 05/ Result Comment: The [facility] eGFR is calculated using the CKD-EPI formula. In most young, healthy individuals the eGFR will be >90 mL/min/1.73m2 . The eGFR declines with age. An eGFR of 60-89 may be normal in some populations, particularly the elderly, for whom the CKD-EPI formula has not been extensively validated. Use of the eGFR is not recommended in the following populations:< br/>
Gwen viduals with unstable creatinine concentration s, including patients and those with serious co-morbid conditions.<b r/>
Patie nts with extremes in muscle mass or diet.

The data above are obtained from the National Kidney Disease Education Program (NKDEP) which additionally recommends that when the eGFR is used in patients with extremes of body mass index for purposes of drug dosing, the eGFR should be multiplied by the estimated BMI. CHEM PANEL Alk Phos 158 39 - 136 08/29 [facility] CHEM PANEL AST 11 0 - 37 / [facility] CHEM PANEL Bili Total 0.2 0.2 - 1.3 08/29 [facility] CHEM PANEL Chloride Lvl 99 95 - 109 08/29 [facility] CHEM PANEL Potassium 3.9 3.5 - 5.1 / Lvl /2017 [facility] CHEM PANEL Sodium Lvl 134 135 - 145 / MH [facility] CHEM PANEL Creatinine 1.03 0.50 - 05/08 Lvl 1.40 /2017 [facility] CHEM PANEL AGAP 13.9 10.0 - 05/08 MH 20.0 /2018 [facility] CHEM PANEL CO2 25 24 - 32 / [facility] CHEM PANEL BUN 11 7 - 22 08/29 [facility] CHEM PANEL Glucose Lvl 481 70 - 99 / Result Comment: [facility] Critical Result(s) called to Gabriel Cardoza at 08/29/2017 16:50 byecu. Read back OK. CHEM PANEL Globulin 4.6 2.7 - 4.2 08/29 [facility] CHEM PANEL Albumin Lvl 3.7 3.5 - 5.0 08/29 [facility] CHEM PANEL ALT 27 0 - 65 05/08 MH /2018 [facility] CHEM PANEL A/G Ratio 0.8 0.7 - 1.6 05/08 MH /2018 [facility] CHEM PANEL Calcium Lvl 9.4 8.5 - 10.5 05/08 MH /2017 [facility] CHEM PANEL Total 8.3 6.4 - 8.4 05/08 Protein /2017 [facility] CHEM PANEL B/C Ratio 11 6 - 25 05/08 MH /2017 [facility] HEMATOLOGY Basophils # 0.1 0.0 - 0.2 05/08 MH /2018 [facility] HEMATOLOGY Eosinophils 0.2 0.0 - 0.5 05/08 MH # /2018 [facility] HEMATOLOGY Monocytes 6.4 2.0 - 12.0 05/08 MH /2018 [facility] HEMATOLOGY Lymphocytes 25.1 20.0 - 05/08 MH 40.0 /2017 [facility] HEMATOLOGY Segs-Bands # 6.5 1.5 - 8.1 05/08 MH /2017 [facility] HEMATOLOGY Monocytes # 0.6 0.0 - 0.8 05/08 MH /2017 [facility] HEMATOLOGY Basophils 0.9 0.0 - 1.0 05/08 MH /2017 [facility] HEMATOLOGY Eosinophils 2.1 0.0 - 4.0 05/08 MH /2018 [facility] HEMATOLOGY Lymphocytes 2.5 1.0 - 5.5 05/08 MH # /2018 [facility] HEMATOLOGY Segs 65.5 45.0 - 05/08 MH 75.0 /2018 [facility] HEMATOLOGY Platelet 282 133 - 450 05/08 MH /2017 [facility] HEMATOLOGY MCHC 33.2 32.0 - 05/08 36.0 /2018 [facility] HEMATOLOGY MCV 89.5 80.0 - 05/08 98.0 /2017 [facility] HEMATOLOGY MCH 29.7 27.0 - 05/08 31.0 /2018 [facility] HEMATOLOGY RDW 13.7 11.5 - 05/08 14.5 /2018 [facility] HEMATOLOGY MPV 10.0 7.4 - 10.4 05/08 MH /2018 [facility] HEMATOLOGY Hct 39.4 36.0 - 05/08 MH 48.0 /2018 [facility] HEMATOLOGY WBC 9.9 3.7 - 10.4 05/08 MH /2018 [facility] HEMATOLOGY RBC 4.40 4.20 - 05/08 MH 5.40 /2017 [facility] HEMATOLOGY Hgb 13.1 12.0 - 05/08 16.0 /2017 [facility] CARDIAC Troponin-I <0.02 0.00 - 08/10 MH ENZYMES 0.40 /2016 [facility] CARDIAC Total CK 87 12 - 191 08/[address] [facility] CARDIAC CK MB Index <0.6 0.0 - 2.5 08/10 ENZYMES /2016 [facility] CARDIAC CK MB <0.5 0.5 - 3.6 08/[address] [facility] CHEM PANEL Lipase Lvl 53 73 - 393 08/10 [facility] CHEM PANEL eGFR 119 08/[address] [facility] Comment: The [facility] eGFR is calculated using the CKD-EPI formula. In most young, healthy individuals the eGFR will be >90 mL/min/1.73m2 . The eGFR declines with age. An eGFR of 60-89 may be normal in some populations, particularly the elderly, for whom the CKD-EPI formula has not been extensively validated. Use of the eGFR is not recommended in the following populations:< br/>
Gwen viduals with unstable creatinine concentration s, including patients and those with serious co-morbid conditions.<b r/>
Patie nts with extremes in muscle mass or diet.

The data above are obtained from the National Kidney Disease Education Program (NKDEP) which additionally recommends that when the eGFR is used in patients with extremes of body mass index for purposes of drug dosing, the eGFR should be multiplied by the estimated BMI. CHEM PANEL Bili Total 0.4 0.2 - 1.3 08/10 [facility] CHEM PANEL AST 11 0 - 37 08/10 [facility] CHEM PANEL ALT 12 0 - 65 08/10 [facility] CHEM PANEL Alk Phos 68 39 - 136 08/10 [facility] CHEM PANEL Sodium Lvl 138 135 - 145 08/10 [facility] CHEM PANEL Potassium 3.5 3.5 - 5.1 08/[address] [facility] CHEM PANEL CO2 31 24 - 32 08/10 [facility] CHEM PANEL Chloride Lvl 101 95 - 109 08/10 [facility] CHEM PANEL Glucose Lvl 232 70 - 99 08/10 [facility] CHEM PANEL BUN 5 7 - 22 08/10 [facility] CHEM PANEL Creatinine 0.69 0.50 - 08/[address] [facility] CHEM PANEL Total 8.1 6.4 - 8.4 08/10 [facility] CHEM PANEL Calcium Lvl 9.5 8.5 - 10.5 08/10 [facility] CHEM PANEL Albumin Lvl 3.9 3.5 - 5.0 08/10 [facility] CHEM PANEL A/G Ratio 0.9 0.7 - 1.6 08/10 [facility] CHEM PANEL Globulin 4.2 2.7 - 4.2 08/10 [facility] CHEM PANEL B/C Ratio 7 6 - 25 08/10 [facility] CHEM PANEL AGAP 9.5 10.0 - 08/10 MH 20.0 /2016 [facility] HEMATOLOGY MPV 10.3 7.4 - 10.4 08/10 [facility] HEMATOLOGY Platelet 264 133 - 450 08/10 [facility] HEMATOLOGY MCHC 33.6 32.0 - 08/10 MH 36.0 /2016 [facility] HEMATOLOGY MCH 29.7 27.0 - 08/[address] [facility] HEMATOLOGY RDW 12.9 11.5 - 08/10 MH 14.5 /2016 [facility] HEMATOLOGY RBC 4.79 4.20 - 08/10 MH 5.40 /2016 [facility] HEMATOLOGY WBC 7.2 3.7 - 10.4 08/10 [facility] HEMATOLOGY MCV 88.4 80.0 - 08/10 MH 98.0 /2016 [facility] HEMATOLOGY Hct 42.4 36.0 - 08/10 MH 48.0 /2016 [facility] HEMATOLOGY Hgb 14.2 12.0 - 08/[address] [facility] HEMATOLOGY Segs 57.8 45.0 - 08/10 MH 75.0 /2016 [facility] HEMATOLOGY Monocytes 6.3 2.0 - 12.0 08/10 [facility] HEMATOLOGY Lymphocytes 32.9 20.0 - 08/[address] [facility] HEMATOLOGY Lymphocytes 2.4 1.0 - 5.5 08/10 MH # /2016 [facility] HEMATOLOGY Segs-Bands # 4.2 1.5 - 8.1 08/10 [facility] HEMATOLOGY Monocytes # 0.5 0.0 - 0.8 08/10 [facility] HEMATOLOGY Basophils 0.9 0.0 - 1.0 08/10 [facility] HEMATOLOGY Eosinophils 2.1 0.0 - 4.0 08/10 [facility] HEMATOLOGY Basophils # 0.1 0.0 - 0.2 08/10 [facility] HEMATOLOGY Eosinophils 0.1 0.0 - 0.5 08/10 [facility] URINE AND UA <=1.0 0.1 - 1.0 08/10 [facility] Urobilinogen mg/dL /2016 [facility] URINE AND UA WBC 2 0 - 5 08/10 [facility] URINE AND UA Mucus Few /LPF None Seen 08/10 [facility] /LPF /2016 [facility] URINE AND UA RBC 3 0 - 2 08/10 [facility] URINE AND UA Bili Negative Negative 08/10 [facility] *NA* /2016 [facility] (08/10/16 9:50 AM) URINE AND UA Ketones Negative Negative 08/10 [facility] mg/dL mg/dL [facility] URINE AND UA Glucose 150 mg/dL Negative 08/10 [facility] mg/dL [facility] URINE AND UA Protein Negative Negative 08/10 [facility] mg/dL mg/dL [facility] URINE AND UA Sq Epi Many /LPF Few /LPF 08/10 [facility] URINE AND UA Leuk Est Negative Negative 08/10 [facility] (08/10/16 9:50 AM) [facility] URINE [facility] UA Blood Negative Negative 08/10 [facility] (08/10/16 9:50 AM) [facility] URINE AND UA Nitrite Negative Negative 08/10 [facility] (08/10/16 9:50 AM) [facility] URINE AND UA Color Yellow Yellow 08/10 [facility] *NA* /2016 [facility] (08/10/16 9:50 AM) URINE AND UA Spec Grav 1.020 <=1.030 08/10 [facility] URINE AND UA Turbidity Slight Clear 08/10 [facility] *ABN* /2016 [facility] (08/10/16 9:50 AM) URINE AND UA pH 6.0 5.0 - 8.0 08/[address] [facility] URINE CHEM U Preg Negative Negative 08/10 (08/10/16 9:50 AM) [facility] CHEM PANEL Lipase Lvl 75 73 - 393 04/23 [facility] URINE AND UA <=1.0 0.1 - 1.0 04/23 [facility] Urobilinogen mg/dL [facility] URINE AND UA Color Ltyellow 04/23 [facility] URINE AND UA WBC 1 0 - 5 04/23 [facility] /2015 [facility] URINE AND UA RBC 5 0 - 2 04/23 [facility] URINE AND UA Nitrite Negative Negative 04/23 [facility] (04/22/16 6:14 PM) [facility] URINE AND UA Leuk Est Negative Negative 04/23 [facility] (04/22/16 6:14 PM) [facility] URINE AND UA Sq Epi Few /LPF Few /LPF 04/23 [facility] URINE AND UA Turbidity Clear Clear 04/23 [facility] (04/22/16 6:14 PM) [facility] URINE AND UA Ketones Negative Negative 04/23 [facility] mg/dL mg/dL [facility] URINE AND UA pH 6.0 5.0 - 8.0 04/23 [facility] URINE AND UA Spec Grav 1.015 <=1.030 04/[address] [facility] URINE AND UA Blood Negative Negative 04/23 [facility] (04/22/16 6:14 PM) [facility] URINE AND UA Bili Negative Negative 04/23 [facility] *NA* /2015 [facility] (04/22/16 6:14 PM) URINE AND UA Glucose 500 mg/dL Negative 04/23 STOOL mg/dL [facility] URINE AND UA Protein Negative Negative 04/23 [facility] mg/dL mg/dL [facility] URINE CHEM U Preg Negative Negative 04/23 (04/22/16 6:14 PM) [facility] CARDIAC CK MB <0.5 0.5 - 3.6 04/[address] [facility] CARDIAC Total CK 84 12 - 191 04/[address] [facility] CARDIAC CK MB Index <0.6 0.0 - 2.5 04/[address] [facility] CARDIAC Troponin-I <0.02 0.00 - 04/[address] [facility] CHEM PANEL eGFR 115 04/22 Result Comment: The [facility] eGFR is calculated using the CKD-EPI formula. In most young, healthy individuals the eGFR will be >90 mL/min/1.73m2 . The eGFR declines with age. An eGFR of 60-89 may be normal in some populations, particularly the elderly, for whom the CKD-EPI formula has not been extensively validated. Use of the eGFR is not recommended in the following populations:< br/>
Gwen viduals with unstable creatinine concentration s, including patients and those with serious co-morbid conditions.<b r/>
Patie nts with extremes in muscle mass or diet.

The data above are obtained from the National Kidney Disease Education Program (NKDEP) which additionally recommends that when the eGFR is used in patients with extremes of body mass index for purposes of drug dosing, the eGFR should be multiplied by the estimated BMI. CHEM PANEL Chloride Lvl 101 95 - 109 04/22 [facility] CHEM PANEL Potassium 3.7 3.5 - 5.1 04/22 MH Lvl /2015 [facility] CHEM PANEL Calcium Lvl 8.9 8.5 - 10.5 04/22 [facility] CHEM PANEL CO2 26 24 - 32 04/22 [facility] CHEM PANEL Creatinine 0.72 0.50 - 04/22 MH Lvl 1.40 [facility] CHEM PANEL Sodium Lvl 137 135 - 145 04/22 [facility] CHEM PANEL Albumin Lvl 3.8 3.5 - 5.0 04/22 [facility] CHEM PANEL ALT 21 0 - 65 04/22 [facility] CHEM PANEL Total 8.0 6.4 - 8.4 04/22 [facility] CHEM PANEL Alk Phos 73 39 - 136 04/22 [facility] CHEM PANEL AST 10 0 - 37 04/22 [facility] CHEM PANEL Glucose Lvl 263 70 - 99 04/22 [facility] CHEM PANEL BUN 8 7 - 22 04/22 [facility] CHEM PANEL AGAP 13.7 10.0 - 04/[address] [facility] CHEM PANEL Globulin 4.2 2.7 - 4.2 04/22 [facility] CHEM PANEL B/C Ratio 11 6 - 25 04/22 [facility] CHEM PANEL A/G Ratio 0.9 0.7 - 1.6 04/22 [facility] CHEM PANEL Bili Total 0.2 0.2 - 1.3 04/22 [facility] HEMATOLOGY RDW 13.5 11.5 - 04/[address] [facility] HEMATOLOGY Platelet 310 133 - 450 04/22 [facility] HEMATOLOGY MCV 91.7 80.0 - 04/22 MH 98.0 /2016 [facility] HEMATOLOGY MCH 30.9 27.0 - 04/22 MH 31.0 /2015 [facility] HEMATOLOGY MCHC 33.8 32.0 - 04/22 MH 36.0 /2016 [facility] HEMATOLOGY MPV 9.9 7.4 - 10.4 04/22 [facility] HEMATOLOGY Hct 40.4 36.0 - 12/30 MH 48.0 /2016 [facility] HEMATOLOGY WBC 6.7 3.7 - 10.4 04/22 /2015 [facility] HEMATOLOGY RBC 4.41 4.20 - 04/22 MH 5.40 /2016 [facility] HEMATOLOGY Hgb 13.6 12.0 - 04/22 MH 16.0 /2015 [facility] HEMATOLOGY Monocytes # 0.5 0.0 - 0.8 04/[address] [facility] HEMATOLOGY Eosinophils 0.3 0.0 - 0.5 04/22 MH # /2016 [facility] HEMATOLOGY Basophils # 0.1 0.0 - 0.2 04/22 [facility] HEMATOLOGY Segs-Bands # 2.9 1.5 - 8.1 04/22 [facility] HEMATOLOGY Lymphocytes 2.8 1.0 - 5.5 04/22 MH # /2016 [facility] HEMATOLOGY Monocytes 8.1 2.0 - 12.0 04/[address] [facility] HEMATOLOGY Eosinophils 5.2 0.0 - 4.0 04/22 [facility] HEMATOLOGY Basophils 1.3 0.0 - 1.0 04/22 [facility] HEMATOLOGY Segs 43.9 45.0 - 04/22 MH 75.0 /2016 [facility] HEMATOLOGY Lymphocytes 41.5 20.0 - 04/[address] [facility] CHEM PANEL eGFR 124 10/15 Result Comment: The [facility] eGFR is calculated using the CKD-EPI formula. In most young, healthy individuals the eGFR will be >90 mL/min/1.73m2 . The eGFR declines with age. An eGFR of 60-89 may be normal in some populations, particularly the elderly, for whom the CKD-EPI formula has not been extensively validated. Use of the eGFR is not recommended in the following populations:< br/>
Gwen viduals with unstable creatinine concentration s, including patients and those with serious co-morbid conditions.<b r/>
Patie nts with extremes in muscle mass or diet.

The data above are obtained from the National Kidney Disease Education Program (NKDEP) which additionally recommends that when the eGFR is used in patients with extremes of body mass index for purposes of drug dosing, the eGFR should be multiplied by the estimated BMI. TOXICOLOGY Salicylate <1.7 0.0 - 30.0 10/[address] [facility] CARDIAC CK MB <0.5 ng/mL 0.5 - 3.6 10/15 ENZYMES /2016 [facility] CARDIAC Troponin-I <0.015 0.00 - 10/15 ENZYMES ng/mL 0.40 [facility] CHEM PANEL Creatinine 0.62 0.50 - 10/15 MH Lvl 1.40 /2015 [facility] CHEM PANEL Sodium Lvl 137 135 - 145 10/15 MH /2015 [facility] CHEM PANEL Potassium 4.0 3.5 - 5.1 10/15 MH Lvl /2015 [facility] CHEM PANEL Chloride Lvl 100 95 - 109 10/15 MH /2015 [facility] CHEM PANEL Glucose Lvl 372 70 - 99 10/15 MH /2015 [facility] CHEM PANEL BUN 11 7 - 22 10/15 MH /2015 [facility] CHEM PANEL CO2 24 24 - 32 10/15 /2015 [facility] CHEM PANEL AGAP 17.0 10.0 - 10/15 MH 20.0 /2015 [facility] CHEM PANEL Calcium Lvl 7.6 8.5 - 10.5 10/[address] [facility] TOXICOLOGY Etoh (%) <0.003 10/15 /2015 [facility] TOXICOLOGY Ethanol Lvl <3 10/[address] [facility] VIRAL - Influ A Negative Negative 10/15 SEROLOGY (10/16/15 1:38 PM) /2015 [facility] VIRAL - Influ B Negative Negative 10/15 SEROLOGY (10/16/15 1:38 PM) /2015 [facility] CHEM PANEL Lactic Acid 0.9 0.5 - 2.2 10/15 Lvl /2015 [facility] CARDIAC CK MB Index <0.6 0.0 - 2.5 10/15 ENZYMES /2015 [facility] CARDIAC CK MB <0.5 0.5 - 3.6 10/15 ENZYMES /2015 [facility] CARDIAC Troponin-I <0.02 0.00 - 10/15 ENZYMES 0.40 /2015 [facility] CARDIAC Total CK 83 12 - 191 10/15 ENZYMES /2015 [facility] CHEM PANEL Ketone 0.45 <=0.27 10/15 Result Quantitative mmol/L /2015 Comment: [facility] Specimen grossly lipemic. Lipoclear performed. 10/16/2015 13:07 [facility] CHEM PANEL eGFR 88 10/15 Result Comment: The [facility] eGFR is calculated using the CKD-EPI formula. In most young, healthy individuals the eGFR will be >90 mL/min/1.73m2 . The eGFR declines with age. An eGFR of 60-89 may be normal in some populations, particularly the elderly, for whom the CKD-EPI formula has not been extensively validated. Use of the eGFR is not recommended in the following populations:< br/>
Gwen viduals with unstable creatinine concentration s, including patients and those with serious co-morbid conditions.<b r/>
Patie nts with extremes in muscle mass or diet.

The data above are obtained from the National Kidney Disease Education Program (NKDEP) which additionally recommends that when the eGFR is used in patients with extremes of body mass index for purposes of drug dosing, the eGFR should be multiplied by the estimated BMI. CHEM PANEL AST 18 0 - 37 10/[address] [facility] CHEM PANEL Alk Phos 119 39 - 136 10/15 [facility] CHEM PANEL Bili Total 0.3 0.2 - 1.3 10/15 [facility] CHEM PANEL Globulin 3.3 2.0 - 4.0 10/15 [facility] CHEM PANEL A/G Ratio 1.2 0.7 - 1.6 10/15 [facility] CHEM PANEL ALT 31 0 - 65 10/15 [facility] CHEM PANEL B/C Ratio 13 6 - 25 10/15 [facility] CHEM PANEL Total 7.2 6.4 - 8.4 10/[address] [facility] CHEM PANEL Albumin Lvl 3.9 3.5 - 5.0 10/15 [facility] CHEM PANEL BUN 12 7 - 22 10/15 [facility] CHEM PANEL Glucose Lvl 593 70 - 99 10/15 Result Comment: [facility] Specimen grossly lipemic. Performed lipoclear. 10/16/2015 12:22 LEVI
Critic al Result(s) called to Tom tang 10/16/2015 12:31 byHA. Read back OK. CHEM PANEL Creatinine 0.90 0.50 - 10/15 MH Lvl 1.40 /2015 [facility] CHEM PANEL Chloride Lvl 92 95 - 109 10/15 [facility] CHEM PANEL Potassium 4.1 3.5 - 5.1 / MH Lvl /2015 [facility] CHEM PANEL AGAP 23.1 10.0 - 06 MH 20.0 /2016 [facility] CHEM PANEL CO2 22 24 - 32 10/15 [facility] CHEM PANEL Sodium Lvl 133 135 - 145 10/15 MH /2016 [facility] CHEM PANEL Calcium Lvl 8.1 8.5 - 10.5 / MH /2015 [facility] CHEM PANEL Osmolality 308 280 - 300 / /2015 [facility] CHEM PANEL Magnesium 2.1 1.8 - 2.4 / MH Lvl /2016 [facility] HEMATOLOGY Segs-Bands # 5.2 1.5 - 8.1 / MH /2016 [facility] HEMATOLOGY Lymphocytes 1.8 1.0 - 5.5 /24 MH # /2016 [facility] HEMATOLOGY Eosinophils 0.1 0.0 - 0.5 06/ MH # /2016 [facility] HEMATOLOGY Monocytes # 0.4 0.0 - 0.8 / MH /2015 [facility] HEMATOLOGY Basophils 1.1 0.0 - 1.0 / /2015 [facility] HEMATOLOGY Monocytes 5.5 2.0 - 12.0 / /2015 [facility] HEMATOLOGY Eosinophils 1.4 0.0 - 4.0 / /2015 [facility] HEMATOLOGY Basophils # 0.1 0.0 - 0.2 10/15 MH /2015 [facility] HEMATOLOGY Segs 68.7 45.0 - 10/15 MH 75.0 /2015 [facility] HEMATOLOGY Lymphocytes 23.3 20.0 - 10/15 MH 40.0 /2015 [facility] HEMATOLOGY WBC 7.6 3.7 - 10.4 10/15 MH /2015 [facility] HEMATOLOGY RBC 4.29 4.20 - 10/15 MH 5.40 /2015 [facility] HEMATOLOGY Platelet 250 133 - 450 10/15 MH /2015 [facility] HEMATOLOGY Hct 39.0 36.0 - 10/15 MH 48.0 /2015 [facility] HEMATOLOGY RDW 13.1 11.5 - 10/15 MH 14.5 /2015 [facility] HEMATOLOGY MCHC 34.4 32.0 - 10/15 MH 36.0 /2015 [facility] HEMATOLOGY MCV 90.9 80.0 - 10/15 MH 98.0 /2015 [facility] HEMATOLOGY MCH 31.2 27.0 - 10/15 MH 31.0 /2015 [facility] HEMATOLOGY Hgb 13.4 12.0 - 10/[address] [facility] HEMATOLOGY MPV 10.6 7.4 - 10.4 10/15 MH /2015 [facility] HEMATOLOGY INR 0.90 0.85 - 10/15 MH 1.17 /2015 [facility] HEMATOLOGY PT 12.5 12.0 - 10/[address] [facility] HEMATOLOGY PTT 26.7 22.9 - 10/15 MH 35.8 /2015 [facility] URINE AND UA <=1.0 0.1 - 1.0 10/15 STOOL Urobilinogen mg/dL /2015 [facility] URINE AND UA Color Ltyellow 10/15 STOOL /2015 [facility] URINE AND UA Glucose 500 mg/dL Negative 10/15 STOOL mg/dL /2015 [facility] URINE AND UA Sq Epi Occasional Few /LPF 10/15 STOOL /LPF /2015 [facility] URINE AND UA Leuk Est Negative Negative 10/15 STOOL (10/16/15 10:52 AM) /2015 [facility] URINE AND UA Nitrite Negative Negative 10/15 STOOL (10/16/15 10:52 AM) URINE AND UA Blood Negative Negative 10/15 STOOL (10/16/15 10:52 AM) [facility] URINE AND UA Ketones Negative Negative 10/15 STOOL mg/dL mg/dL [facility] URINE AND UA Bili Negative Negative 10/15 STOOL *NA* /2015 [facility] (10/16/15 10:52 AM) URINE AND UA RBC 1 0 - 2 10/15 STOOL /2015 [facility] URINE AND UA WBC 1 0 - 5 10/15 STOOL /2015 [facility] URINE AND UA Protein Negative Negative 10/15 STOOL mg/dL mg/dL /2015 [facility] URINE AND UA pH 6.0 5.0 - 8.0 10/[address] [facility] URINE AND UA Spec Grav 1.026 <=1.030 10/[address] [facility] URINE AND UA Turbidity Clear Clear 10/15 STOOL (10/16/15 10:52 AM) [facility] LIPIDS VLDL See Note 2 08/16 Result *NA* /2015 Comment: VLDL [facility] (08/17/15 10:40 AM) - Cholesterol level cannot be accurately calculated due to very high triglycerides (>400 mg/dL). LIPIDS HDL 33 >=61 mg/dL 08/16 [facility] LIPIDS CHD Risk 6.45 3.90 - 08/16 5.80 /2015 [facility] LIPIDS Chol 213 <=199 08/16 mg/dL /2015 [facility] LIPIDS Trig 442 <=149 08/16 mg/dL [facility] LIPIDS LDL See Note <=99 mg/dL 08/16 Result (Calculated) mg/dL Comment: LDL [facility] cholesterol cannot be calculated due to very high triglycerides (>400 mg/dL). Recommend Direct LDL if clinically indicated. SPECIAL Hgb A1C >16.0 % <=5.6 % 08/[address] [facility] CARDIAC Total CK 73 - 08/[address] [facility] CARDIAC Troponin-I <0.02 0.00 - 08/[address] [facility] CARDIAC Total CK 92 - 08/[address] [facility] CARDIAC Troponin-I <0.02 0.00 - 08/[address] [facility] CARDIAC CK MB <0.5 0.5 - 3.6 08/[address] [facility] CARDIAC CK MB Index <0.5 0.0 - 2.5 08/[address] [facility] CARDIAC CK MB Index <0.4 0.0 - 2.5 08/[address] [facility] CARDIAC CK MB <0.5 0.5 - 3.6 08/[address] [facility] CARDIAC Total CK 117 - 08/[address] [facility] CARDIAC Troponin-I <0.02 0.00 - 08/[address] [facility] CHEM PANEL Magnesium 2.1 1.8 - 2.4 08/[address] [facility] CHEM PANEL Lipase Lvl 354 73 - 393 08/15 [facility] CHEM PANEL ALANINE 32 0 - 65 08/[address] [facility] RASE CHEM PANEL eGFR 84 08/[address] [facility] Comment: The [facility] eGFR is calculated using the CKD-EPI formula. In most young, healthy individuals the eGFR will be >90 mL/min/1.73m2 . The eGFR declines with age. An eGFR of 60-89 may be normal in some populations, particularly the elderly, for whom the CKD-EPI formula has not been extensively validated. Use of the eGFR is not recommended in the following populations:< br/>
Gwen viduals with unstable creatinine concentration s, including patients and those with serious co-morbid conditions.<b r/>
Patie nts with extremes in muscle mass or diet.

The data above are obtained from the National Kidney Disease Education Program (NKDEP) which additionally recommends that when the eGFR is used in patients with extremes of body mass index for purposes of drug dosing, the eGFR should be multiplied by the estimated BMI. CHEM PANEL Bili Total 0.3 0.2 - 1.[address] [facility] CHEM PANEL Alk Phos 93 39 - [address] [facility] CHEM PANEL Total 7.8 6.4 - 8.4 08/[address] [facility] CHEM PANEL B/C Ratio 11 6 - 25 08/15 [facility] CHEM PANEL Albumin Lvl 3.7 3.5 - 5.[address] [facility] CHEM PANEL Potassium 3.7 3.5 - 5.1 04/ MH Lvl /2015 [facility] CHEM PANEL AST 20 0 - 37 08/15 [facility] CHEM PANEL A/G Ratio 0.9 0.7 - 1.6 08/15 [facility] CHEM PANEL Globulin 4.1 2.0 - 4.0 08/15 [facility] CHEM PANEL CO2 28 24 - 32 08/15 [facility] CHEM PANEL Chloride Lvl 98 95 - 109 08/15 [facility] CHEM PANEL Calcium Lvl 8.6 8.5 - 10.5 08/15 [facility] CHEM PANEL AGAP 11.7 10.0 - 08/[address] [facility] CHEM PANEL BUN 10 7 - 22 08/15 [facility] CHEM PANEL Glucose Lvl 362 70 - 99 08/15 [facility] CHEM PANEL Creatinine 0.94 0.50 - 04 MH Lvl 1.40 /2015 [facility] CHEM PANEL Sodium Lvl 134 135 - 145 08/15 [facility] ENDOCRINOL S Preg Negative Negative 08/15 OGY *NA* /2015 [facility] (08/16/15 4:12 PM) HEMATOLOGY Eosinophils 3.2 0.0 - 4.0 08/15 [facility] HEMATOLOGY Segs-Bands # 4.3 1.5 - 8.1 08/15 [facility] HEMATOLOGY Basophils 1.0 0.0 - 1.0 08/15 [facility] HEMATOLOGY Monocytes # 0.6 0.0 - 0.8 08/15 [facility] HEMATOLOGY Lymphocytes 2.4 1.0 - 5.5 08/15 MH # /2016 [facility] HEMATOLOGY Monocytes 7.7 2.0 - 12.0 08/15 [facility] HEMATOLOGY Lymphocytes 31.2 20.0 - [address] [facility] HEMATOLOGY Basophils # 0.1 0.0 - 0.2 08/15 [facility] HEMATOLOGY Eosinophils 0.2 0.0 - 0.5 08/15 MH # /2016 [facility] HEMATOLOGY Segs 56.9 45.0 - 08/15 MH 75.0 /2016 [facility] HEMATOLOGY PTT 25.8 22.9 - 08/15 MH 35.8 /2015 [facility] HEMATOLOGY INR 0.97 0.85 - 08/15 MH 1.17 /2015 [facility] HEMATOLOGY PT 13.2 12.0 - 08/15 MH 14.7 /2016 [facility] HEMATOLOGY MPV 10.9 7.4 - 10.4 08/15 MH /2015 [facility] HEMATOLOGY Platelet 283 133 - 450 08/15 MH /2015 [facility] HEMATOLOGY Hgb 12.3 12.0 - 08/15 MH 16.0 /2015 [facility] HEMATOLOGY MCH 30.5 27.0 - 08/15 MH 31.0 /2015 [facility] HEMATOLOGY MCV 89.5 80.0 - 08/15 MH 98.0 /2015 [facility] HEMATOLOGY RBC 4.03 4.20 - 08/15 MH 5.40 /2015 [facility] HEMATOLOGY Hct 36.1 36.0 - 08/15 MH 48.0 /2015 [facility] HEMATOLOGY RDW 13.4 11.5 - 08/15 MH 14.5 /2015 [facility] MCHC 34.1 32.0 - 08/15 MH 36.0 /2015 [facility] WBC 7.6 3.7 - 10.4 08/15 MH /2015 [facility] ELECTROLYT AGAP 16.7 10.0 - 06/06 ES 20.0 /2015 [facility] ELECTROLYT eGFR 128 06/06 Result /2015 Comment: The [facility] eGFR is calculated using the CKD-EPI formula. In most young, healthy individuals the eGFR will be >90 mL/min/1.73m2 . The eGFR declines with age. An eGFR of 60-89 may be normal in some populations, particularly the elderly, for whom the CKD-EPI formula has not been extensively validated. Use of the eGFR is not recommended in the following populations:< br/>
Gwen viduals with unstable creatinine concentration s, including patients and those with serious co-morbid conditions.<b r/>
Patie nts with extremes in muscle mass or diet.

The data above are obtained from the National Kidney Disease Education Program (NKDEP) which additionally recommends that when the eGFR is used in patients with extremes of body mass index for purposes of drug dosing, the eGFR should be multiplied by the estimated BMI. ELECTROLYT Creatinine 0.57 0.50 - 06/06 ES Lvl 1.40 /2015 [facility] ELECTROLYT CO2 22 24 - 32 06/06 /2015 [facility] ELECTROLYT Calcium Lvl 8.8 8.5 - 10.5 06/06 [facility] ELECTROLYT Glucose Lvl 308 70 - 99 06/06 [facility] ELECTROLYT Sodium Lvl 138 135 - 145 06/06 [facility] ELECTROLYT BUN 10 7 - 22 06/06 /2015 [facility] ELECTROLYT Chloride Lvl 103 95 - 109 06/06 [facility] ELECTROLYT Potassium 3.7 3.5 - 5.1 06/06 ES Lvl /2015 [facility] HEMATOLOGY RDW 13.4 11.5 - 06/06 14.5 /2015 [facility] HEMATOLOGY Platelet 234 133 - 450 06/06 [facility] HEMATOLOGY MPV 10.5 7.4 - 10.4 06/06 [facility] HEMATOLOGY MCHC 32.3 32.0 - 06/06 36.0 /2015 [facility] HEMATOLOGY Hct 35.8 36.0 - 06/06 48.0 /2015 [facility] HEMATOLOGY MCV 92.2 80.0 - 06/06 98.0 /2015 [facility] HEMATOLOGY MCH 29.8 27.0 - 06/06 31.0 /2015 [facility] HEMATOLOGY Hgb 11.6 12.0 - 06/06 16.0 /2015 [facility] HEMATOLOGY WBC 6.9 3.7 - 10.4 06/06 [facility] HEMATOLOGY RBC 3.89 4.20 - 06/06 5.40 /2015 [facility] HEMATOLOGY Basophils # 0.1 0.0 - 0.2 06/06 [facility] HEMATOLOGY Segs-Bands # 3.1 1.5 - 8.1 06/06 [facility] HEMATOLOGY Lymphocytes 3.1 1.0 - 5.5 06/06 MH # /2015 [facility] HEMATOLOGY Eosinophils 0.2 0.0 - 0.5 06/06 MH # /2015 [facility] HEMATOLOGY Monocytes # 0.5 0.0 - 0.8 06/06 [facility] HEMATOLOGY Lymphocytes 44.0 20.0 - 06/06 40.0 /2015 [facility] HEMATOLOGY Monocytes 7.4 2.0 - 12.0 06/06 [facility] HEMATOLOGY Eosinophils 3.0 0.0 - 4.0 06/06 [facility] HEMATOLOGY Basophils 1.3 0.0 - 1.0 06/06 [facility] HEMATOLOGY Segs 44.3 45.0 - 06/06 75.0 /2016 [facility] CARDIAC Total CK 69 12 - 191 06/04 ENZYMES /2015 [facility] CARDIAC Troponin-I <0.02 0.00 - 06/[address] [facility] CHEM PANEL eGFR 105 06/04 Result Comment: The [facility] eGFR is calculated using the CKD-EPI formula. In most young, healthy individuals the eGFR will be >90 mL/min/1.73m2 . The eGFR declines with age. An eGFR of 60-89 may be normal in some populations, particularly the elderly, for whom the CKD-EPI formula has not been extensively validated. Use of the eGFR is not recommended in the following populations:< br/>
Gwen viduals with unstable creatinine concentration s, including patients and those with serious co-morbid conditions.<b r/>
Patie nts with extremes in muscle mass or diet.

The data above are obtained from the National Kidney Disease Education Program (NKDEP) which additionally recommends that when the eGFR is used in patients with extremes of body mass index for purposes of drug dosing, the eGFR should be multiplied by the estimated BMI. CHEM PANEL Creatinine 0.78 0.50 - 06/[address] [facility] CHEM PANEL AGAP 14.9 10.0 - 06/[address] [facility] CHEM PANEL Calcium Lvl 8.8 8.5 - 10.5 06/04 [facility] CHEM PANEL Chloride Lvl 98 95 - 109 06/04 [facility] CHEM PANEL CO2 25 24 - 32 06/04 [facility] CHEM PANEL Potassium 3.9 3.5 - 5.1 06/04 Lvl /2015 [facility] CHEM PANEL Sodium Lvl 134 135 - 145 06/04 [facility] CHEM PANEL Glucose Lvl 388 70 - 99 06/04 [facility] CHEM PANEL BUN 11 7 - 22 06/04 [facility] ENDOCRINOL S Preg Negative Negative 06/04 OGY *NA* /2015 [facility] (06/04/15 5:55 AM) LIPIDS LDL See Note <=99 mg/dL 06/04 Result (Calculated) mg/dL Comment: LDL [facility] cholesterol cannot be calculated due to very high triglycerides (>400 mg/dL). Recommend Direct LDL if clinically indicated. LIPIDS VLDL See Note 2 06/04 Result *NA* /2015 Comment: VLDL [facility] (06/04/15 5:55 AM) - Cholesterol level cannot be accurately calculated due to very high triglycerides (>400 mg/dL). LIPIDS Chol 223 <=199 06/04 mg/dL [facility] LIPIDS Trig 567 <=149 06/04 mg/dL [facility] LIPIDS HDL 26 >=61 mg/dL 06/04 [facility] LIPIDS CHD Risk 8.58 3.90 - 06/04 5.80 /2015 [facility] CARDIAC CK MB <0.5 0.5 - 3.6 06/[address] [facility] CARDIAC CK MB Index <0.7 0.0 - 2.5 06/[address] [facility] CARDIAC Troponin-I <0.02 0.00 - 06/[address] [facility] CARDIAC Total CK 76 12 - 191 06/04 ENZYMES /2015 [facility] URINE AND UA <=1.0 0.1 - 1.0 06/03 STOOL Urobilinogen mg/dL /2015 [facility] URINE AND UA Color Colorless 06/[address] [facility] URINE AND UA Glucose 500 mg/dL Negative 06/03 STOOL mg/dL /2015 [facility] URINE AND UA Ketones Negative Negative 06/03 STOOL mg/dL mg/dL /2015 [facility] URINE AND UA Bili Negative Negative 06/03 STOOL *NA* /2015 [facility] (06/03/15 5:33 PM) URINE AND UA Blood Negative Negative 06/03 STOOL (06/03/15 5:33 PM) /2015 [facility] URINE AND UA Spec Grav 1.018 <=1.030 06/03 STOOL [facility] URINE AND UA pH 5.0 5.0 - 8.0 06/03 STOOL [facility] URINE AND UA Protein Negative Negative 06/03 STOOL mg/dL mg/dL [facility] URINE AND UA Leuk Est Negative Negative 06/03 STOOL (06/03/15 5:33 PM) [facility] URINE AND UA Nitrite Negative Negative 06/03 STOOL (06/03/15 5:33 PM) [facility] URINE AND UA RBC <1 0 - 2 06/[address] [facility] URINE AND UA WBC <1 0 - 5 06/[address] [facility] URINE AND UA Sq Epi None Seen 06/[address] [facility] URINE AND UA Turbidity Clear Clear 06/03 STOOL (06/03/15 5:33 PM) [facility] CARDIAC Total CK 79 12 - 191 06/03 ENZYMES /2015 [facility] CARDIAC CK MB <0.5 0.5 - 3.6 06/03 ENZYMES /2015 [facility] CARDIAC Troponin-I <0.02 0.00 - 06/03 MH ENZYMES 0.40 /2016 [facility] CARDIAC CK MB Index <0.6 0.0 - 2.5 06/[address] [facility] CHEM PANEL Alk Phos 116 39 - 136 06/03 [facility] CHEM PANEL Bili Total 0.4 0.2 - 1.3 06/03 [facility] CHEM PANEL eGFR 58 06/[address] [facility] Comment: The [facility] eGFR is calculated using the CKD-EPI formula. In most young, healthy individuals the eGFR will be >90 mL/min/1.73m2 . The eGFR declines with age. An eGFR of 60-89 may be normal in some populations, particularly the elderly, for whom the CKD-EPI formula has not been extensively validated. Use of the eGFR is not recommended in the following populations:< br/>
Gwen viduals with unstable creatinine concentration s, including patients and those with serious co-morbid conditions.<b r/>
Patie nts with extremes in muscle mass or diet.

The data above are obtained from the National Kidney Disease Education Program (NKDEP) which additionally recommends that when the eGFR is used in patients with extremes of body mass index for purposes of drug dosing, the eGFR should be multiplied by the estimated BMI. CHEM PANEL CO2 23 24 - 32 06/03 [facility] CHEM PANEL Potassium 3.8 3.5 - 5.1 06/[address] [facility] CHEM PANEL Chloride Lvl 90 95 - 109 06/03 [facility] CHEM PANEL AGAP 17.8 10.0 - 06/03 MH 20.0 /2016 [facility] CHEM PANEL Calcium Lvl 9.1 8.5 - 10.5 06/03 [facility] CHEM PANEL B/C Ratio 10 6 - 25 06/03 [facility] CHEM PANEL Total 8.1 6.4 - 8.4 06/03 Protein /2015 [facility] CHEM PANEL Albumin Lvl 3.8 3.5 - 5.0 06/03 [facility] CHEM PANEL Globulin 4.3 2.0 - 4.[address] [facility] CHEM PANEL A/G Ratio 0.9 0.7 - 1.6 06/03 [facility] CHEM PANEL ALANINE 38 0 - 65 06/03 AMINOTRANSFE /2015 [facility] RASE CHEM PANEL AST 25 0 - [address] [facility] CHEM PANEL BUN 13 7 - 22 06/03 [facility] CHEM PANEL Creatinine 1.28 0.50 - 02 MH Lvl 1.40 /2015 [facility] CHEM PANEL Sodium Lvl 127 135 - 145 06/03 [facility] CHEM PANEL Glucose Lvl 596 70 - 99 06/03 Result Comment: [facility] Critical Result(s) called to Mallika Blair at 06/03/2015 17:40 by evon. Read back OK. HEMATOLOGY MCHC 33.3 32.0 - 06/03 36.0 /2015 [facility] HEMATOLOGY RDW 13.3 11.5 - 02 14.5 /2015 [facility] HEMATOLOGY MCH 30.8 27.0 - 06/03 31.0 /2015 [facility] HEMATOLOGY Platelet 276 133 - 450 06/03 [facility] HEMATOLOGY MPV 11.1 7.4 - 10.4 06/03 [facility] HEMATOLOGY RBC 4.34 4.20 - 02 5.40 /2015 [facility] HEMATOLOGY MCV 92.7 80.0 - 06/03 98.0 /2015 [facility] HEMATOLOGY Hct 40.2 36.0 - 02 48.0 /2016 [facility] HEMATOLOGY Hgb 13.4 12.0 - 02 16.0 /2016 [facility] HEMATOLOGY WBC 7.4 3.7 - 10.4 06/03 [facility] HEMATOLOGY Basophils # 0.1 0.0 - 0.[address] [facility] HEMATOLOGY Monocytes # 0.5 0.0 - 0.8 06/03 [facility] HEMATOLOGY Eosinophils 0.1 0.0 - 0.5 10 MH # /2015 [facility] HEMATOLOGY Segs-Bands # 4.4 1.5 - 8.1 06/03 [facility] HEMATOLOGY Lymphocytes 2.3 1.0 - 5.5 06/03 MH # /2015 [facility] HEMATOLOGY Eosinophils 1.9 0.0 - 4.0 06/03 [facility] HEMATOLOGY Basophils 1.3 0.0 - 1.0 06/03 [facility] HEMATOLOGY Monocytes 6.5 2.0 - 12.0 06/03 [facility] HEMATOLOGY Segs 59.5 45.0 - 06/[address] [facility] HEMATOLOGY Lymphocytes 30.8 20.0 - 06/03 MH 40.0 [facility] CHEM PANEL eGFR 108 05/15 Result Comment: The [facility] eGFR is calculated using the CKD-EPI formula. In most young, healthy individuals the eGFR will be >90 mL/min/1.73m2 . The eGFR declines with age. An eGFR of 60-89 may be normal in some populations, particularly the elderly, for whom the CKD-EPI formula has not been extensively validated. Use of the eGFR is not recommended in the following populations:< br/>
Gwen viduals with unstable creatinine concentration s, including patients and those with serious co-morbid conditions.<b r/>
Patie nts with extremes in muscle mass or diet.

The data above are obtained from the National Kidney Disease Education Program (NKDEP) which additionally recommends that when the eGFR is used in patients with extremes of body mass index for purposes of drug dosing, the eGFR should be multiplied by the estimated BMI. CHEM PANEL Calcium Lvl 8.5 8.5 - 10.5 05/15 [facility] CHEM PANEL Potassium 3.8 3.5 - 5.1 05/[address] [facility] CHEM PANEL Chloride Lvl 100 95 - 109 05/15 [facility] CHEM PANEL CO2 25 24 - 32 05/15 [facility] CHEM PANEL AGAP 13.8 10.0 - 05/15 MH 20.0 [facility] CHEM PANEL Sodium Lvl 135 135 - 145 05/15 [facility] CHEM PANEL Glucose Lvl 350 70 - 99 05/15 [facility] CHEM PANEL BUN 15.6 7 - 22 05/15 [facility] CHEM PANEL Creatinine 0.77 0.50 - 05/15 MH Lvl 1.40 /2015 [facility] HEMATOLOGY Segs 46.0 45.0 - 05/[address] [facility] HEMATOLOGY Monocytes 12.6 2.0 - 12.0 05/15 [facility] HEMATOLOGY Lymphocytes 36.8 20.0 - 05/15 MH 40.0 /2016 [facility] HEMATOLOGY Lymphocytes 1.9 1.0 - 5.5 05/15 MH # /2015 [facility] HEMATOLOGY Basophils # 0.1 0.0 - 0.2 05/15 [facility] HEMATOLOGY Eosinophils 3.2 0.0 - 4.0 05/15 [facility] HEMATOLOGY Segs-Bands # 2.4 1.5 - 8.1 05/15 [facility] HEMATOLOGY Basophils 1.4 0.0 - 1.0 05/15 [facility] HEMATOLOGY Eosinophils 0.2 0.0 - 0.5 05/15 MH # /2015 [facility] HEMATOLOGY Monocytes # 0.7 0.0 - 0.8 05/15 [facility] HEMATOLOGY MCH 31.4 27.0 - 05/15 MH 31.0 /2015 [facility] HEMATOLOGY Hct 35.0 36.0 - 05/15 MH 48.0 /2016 [facility] HEMATOLOGY MCV 92.6 80.0 - 05/15 MH 98.0 /2015 [facility] HEMATOLOGY WBC 5.2 3.7 - 10.4 05/15 [facility] HEMATOLOGY MCHC 33.9 32.0 - 05/15 MH 36.0 /2016 [facility] HEMATOLOGY RDW 13.5 11.5 - 05/15 MH 14.5 /2015 [facility] HEMATOLOGY RBC 3.78 4.20 - 05/15 MH 5.40 /2015 [facility] HEMATOLOGY Hgb 11.9 12.0 - 05/15 MH 16.0 /2015 [facility] HEMATOLOGY MPV 10.5 7.4 - 10.4 05/15 [facility] HEMATOLOGY Platelet 198 133 - 450 05/15 [facility] CARDIAC Total CK 73 12 - 191 05/14 ENZYMES /2015 [facility] CARDIAC Troponin-I <0.02 0.00 - 05/14 ENZYMES 0.40 /2015 [facility] CARDIAC CK MB Index <0.6 0.0 - 2.5 05/14 ENZYMES /2015 [facility] CARDIAC CK MB <0.5 0.5 - 3.6 05/14 ENZYMES /2015 [facility] CARDIAC Troponin-I <0.02 0.00 - 05/[address] [facility] CARDIAC Total CK 85 12 - 191 05/14 ENZYMES /2015 [facility] CARDIAC CK MB Index <0.5 0.0 - 2.5 05/13 ENZYMES /2016 [facility] CARDIAC Total CK 104 12 - 191 05/[address] [facility] CARDIAC Troponin-I <0.02 0.00 - 05/13 ENZYMES 0.40 /2016 [facility] CARDIAC CK MB <0.5 0.5 - 3.6 05/[address] [facility] CHEM PANEL Globulin 4.2 2.0 - 4.0 05/13 [facility] CHEM PANEL Albumin Lvl 4.0 3.5 - 5.0 05/13 [facility] CHEM PANEL Total 8.2 6.4 - 8.4 05/[address] [facility] CHEM PANEL AGAP 14.8 10.0 - 05/13 20.0 /2016 [facility] CHEM PANEL CO2 26 24 - 32 05/13 [facility] CHEM PANEL B/C Ratio 9 6 - 25 05/13 [facility] CHEM PANEL Chloride Lvl 93 95 - 109 05/13 [facility] CHEM PANEL Calcium Lvl 9.7 8.5 - 10.5 05/13 [facility] CHEM PANEL eGFR 76 05/[address] [facility] Comment: The [facility] eGFR is calculated using the CKD-EPI formula. In most young, healthy individuals the eGFR will be >90 mL/min/1.73m2 . The eGFR declines with age. An eGFR of 60-89 may be normal in some populations, particularly the elderly, for whom the CKD-EPI formula has not been extensively validated. Use of the eGFR is not recommended in the following populations:< br/>
Gwen viduals with unstable creatinine concentration s, including patients and those with serious co-morbid conditions.<b r/>
Patie nts with extremes in muscle mass or diet.

The data above are obtained from the National Kidney Disease Education Program (NKDEP) which additionally recommends that when the eGFR is used in patients with extremes of body mass index for purposes of drug dosing, the eGFR should be multiplied by the estimated BMI. CHEM PANEL Bili Total 0.5 0.2 - 1.3 05/13 [facility] CHEM PANEL Alk Phos 90 39 - 136 05/13 [facility] CHEM PANEL A/G Ratio 1.0 0.7 - 1.6 05/13 [facility] CHEM PANEL AST 15 0 - 37 05/13 [facility] CHEM PANEL ALT 37 0 - 65 05/13 [facility] CHEM PANEL Creatinine 1.02 0.50 - 05/13 MH Lvl 1.40 /2015 [facility] CHEM PANEL BUN 9 7 - 22 05/13 [facility] CHEM PANEL Potassium 3.8 3.5 - 5.1 05/13 MH Lvl /2015 [facility] CHEM PANEL Sodium Lvl 130 135 - 145 05/13 [facility] CHEM PANEL Glucose Lvl 468 70 - 99 05/13 Result Comment: [facility] Critical Result(s) called to blanche at _ by05/13/2015 15:33 by gigi. Read back OK. HEMATOLOGY Basophils # 0.1 0.0 - 0.2 05/13 [facility] HEMATOLOGY Monocytes # 0.4 0.0 - 0.8 05/13 [facility] HEMATOLOGY Eosinophils 0.1 0.0 - 0.5 05/13 MH # /2015 [facility] HEMATOLOGY Segs 65.9 45.0 - 05/13 MH 75.0 /2015 [facility] HEMATOLOGY Eosinophils 1.0 0.0 - 4.0 05/13 [facility] HEMATOLOGY Basophils 0.7 0.0 - 1.0 05/13 [facility] HEMATOLOGY Monocytes 4.8 2.0 - 12.0 05/13 [facility] HEMATOLOGY Lymphocytes 2.5 1.0 - 5.5 05/13 MH # /2015 [facility] HEMATOLOGY Lymphocytes 27.6 20.0 - 05/[address] [facility] HEMATOLOGY Segs-Bands # 6.0 1.5 - 8.1 05/13 [facility] HEMATOLOGY WBC 9.2 3.7 - 10.4 05/13 [facility] HEMATOLOGY MCV 91.5 80.0 - 05/13 MH 98.0 /2015 [facility] HEMATOLOGY Hct 39.2 36.0 - 05/13 MH 48.0 /2016 [facility] HEMATOLOGY Hgb 12.8 12.0 - 05/13 MH 16.0 /2015 [facility] HEMATOLOGY RBC 4.29 4.20 - 05/13 MH 5.40 /2015 [facility] HEMATOLOGY MCH 29.8 27.0 - 05/13 MH 31.0 /2015 [facility] HEMATOLOGY RDW 13.2 11.5 - 05/13 MH 14.5 /2015 [facility] HEMATOLOGY MPV 10.9 7.4 - 10.4 05/13 [facility] HEMATOLOGY Platelet 217 133 - 450 05/13 [facility] HEMATOLOGY MCHC 32.5 32.0 - 05/13 MH 36.0 /2015 [facility] URINE AND UA Color Ltyellow 05/[address] [facility] URINE AND UA <=1.0 0.1 - 1.0 05/13 STOOL Urobilinogen mg/dL /2015 [facility] URINE AND UA Leuk Est Negative Negative 05/13 [facility] (05/13/15 3:01 PM) [facility] URINE AND UA Nitrite Negative Negative 05/13 [facility] (05/13/15 3:01 PM) /2015 [facility] URINE AND UA Blood Negative Negative 05/13 [facility] (05/13/15 3:01 PM) [facility] URINE AND UA WBC <1 0 - 5 05/[address] [facility] URINE AND UA Sq Epi Occasional Few /LPF 05/13 STOOL /LPF /2015 [facility] URINE AND UA RBC 2 0 - 2 05/13 [facility] URINE AND UA Turbidity Clear Clear 05/13 STO[facility] (05/13/15 3:01 PM) [facility] URINE AND UA Spec Grav 1.028 <=1.030 05/13 STOOL [facility] URINE AND UA pH 7.0 5.0 - 8.0 05/13 [facility] URINE AND UA Protein Negative Negative 05/13 [facility] mg/dL mg/dL [facility] URINE AND UA Bili Negative Negative 05/13 [facility] *NA* /2015 [facility] (05/13/15 3:01 PM) URINE AND UA Glucose 500 mg/dL Negative 05/13 STOOL mg/dL [facility] URINE AND UA Ketones 20 mg/dL Negative 05/13 STOOL mg/dL [facility] CARDIAC CK MB Index 0.5 0.0 - 2.5 05/[address] [facility] CARDIAC CK MB 0.7 0.5 - 3.6 05/[address] [facility] CARDIAC Total CK 129 12 - 191 05/[address] [facility] CARDIAC Troponin-I <0.02 0.00 - 05/02 ENZYMES 0.40 /2015 [facility] LIPIDS VLDL See Note 2 05/02 Result *NA* /2015 Comment: VLDL [facility] (05/02/15 1:42 AM) - Cholesterol level cannot be accurately calculated due to very high triglycerides (>400 mg/dL). LIPIDS LDL See Note <=99 mg/dL 05/02 Result (Calculated) mg/dL /2015 Comment: LDL [facility] cholesterol cannot be calculated due to very high triglycerides (>400 mg/dL). Recommend Direct LDL if clinically indicated. LIPIDS HDL 21 >=61 mg/dL 05/02 [facility] LIPIDS CHD Risk 9.33 3.90 - 05/02 5.80 /2015 [facility] LIPIDS Trig 951 <=149 05/02 mg/dL /2015 [facility] LIPIDS Chol 196 <=199 05/02 mg/dL /2015 [facility] CARDIAC CK MB Index 0.4 0.0 - 2.5 05/[address] [facility] CARDIAC CK MB 0.6 0.5 - 3.6 05/02 ENZYMES /2015 [facility] CARDIAC Troponin-I <0.02 0.00 - 05/02 ENZYMES 0.40 /2015 [facility] CARDIAC Total CK 147 12 - 191 05/[address] [facility] CHEM PANEL Magnesium 1.9 1.8 - 2.4 05/[address] [facility] URINE AND UA <=1.0 0.1 - 1.0 05/01 STOOL Urobilinogen mg/dL /2015 [facility] URINE AND UA Color Ltyellow 05/[address] [facility] URINE AND UA Ketones Trace Negative 05/01 STOOL mg/dL mg/dL [facility] URINE AND UA Leuk Est Negative Negative 05/01 STOOL (05/01/15 1:20 PM) [facility] URINE AND UA Nitrite Negative Negative 05/01 STOOL (05/01/15 1:20 PM) [facility] URINE AND UA Blood Negative Negative 05/01 [facility] (05/01/15 1:20 PM) [facility] URINE AND UA Bili Negative Negative 05/01 [facility] *NA* /2015 [facility] (05/01/15 1:20 PM) URINE AND UA RBC 1 0 - 2 05/01 STOOL [facility] URINE AND UA WBC 1 0 - 5 05/01 ST[facility] URINE AND UA Sq Epi Occasional Few /LPF 05/01 STOOL /LPF /2015 [facility] URINE AND UA Turbidity Clear Clear 05/01 [facility] (05/01/15 1:20 PM) [facility] URINE AND UA Protein Negative Negative 05/01 STOOL mg/dL mg/dL [facility] URINE AND UA pH 8.0 5.0 - 8.0 05/01 STOOL [facility] URINE AND UA Glucose 500 mg/dL Negative 05/01 STOOL mg/dL /2015 [facility] URINE AND UA Spec Grav 1.014 <=1.030 05/[address] [facility] CARDIAC BNP <0 <=100 05/01 EN[facility] pg/mL /2015 [facility] CARDIAC CK MB 0.7 0.5 - 3.6 05/[address] [facility] CARDIAC Troponin-I <0.02 0.00 - 05/01 ENZYMES 0.40 /2015 [facility] CARDIAC Total CK 212 12 - 191 05/[address] [facility] CARDIAC CK MB Index 0.3 0.0 - 2.5 05/[address] [facility] CHEM PANEL Lipase Lvl 104 73 - 393 05/01 [facility] CHEM PANEL eGFR 76 05/01 Result Comment: The [facility] eGFR is calculated using the CKD-EPI formula. In most young, healthy individuals the eGFR will be >90 mL/min/1.73m2 . The eGFR declines with age. An eGFR of 60-89 may be normal in some populations, particularly the elderly, for whom the CKD-EPI formula has not been extensively validated. Use of the eGFR is not recommended in the following populations:< br/>
Gwen viduals with unstable creatinine concentration s, including patients and those with serious co-morbid conditions.<b r/>
Patie nts with extremes in muscle mass or diet.

The data above are obtained from the National Kidney Disease Education Program (NKDEP) which additionally recommends that when the eGFR is used in patients with extremes of body mass index for purposes of drug dosing, the eGFR should be multiplied by the estimated BMI. CHEM PANEL CO2 25 24 - 32 05/01 [facility] CHEM PANEL Potassium 3.4 3.5 - 5.1 05/01 Lvl /2015 [facility] CHEM PANEL Chloride Lvl 93 95 - 109 05/01 [facility] CHEM PANEL Calcium Lvl 9.7 8.5 - 10.5 05/01 [facility] CHEM PANEL AGAP 14.4 10.0 - 05/[address] [facility] CHEM PANEL Sodium Lvl 129 135 - 145 05/01 [facility] CHEM PANEL Glucose Lvl 402 70 - 99 05/01 Result Comment: [facility] Critical Result(s) called to elias muhammad at 05/01/2015 12:03 byew. Read back OK. CHEM PANEL BUN 8 7 - 22 05/01 [facility] CHEM PANEL ALT 47 0 - 65 05/01 [facility] CHEM PANEL A/G Ratio 0.9 0.7 - 1.6 05/01 [facility] CHEM PANEL Creatinine 1.02 0.50 - 05/01 Lvl 1.40 /2015 [facility] CHEM PANEL Alk Phos 109 39 - 136 05/01 [facility] CHEM PANEL Bili Total 0.5 0.2 - 1.3 05/01 [facility] CHEM PANEL AST 33 0 - 37 05/01 [facility] CHEM PANEL Total 8.9 6.4 - 8.4 05/01 [facility] CHEM PANEL B/C Ratio 8 6 - 25 05/01 [facility] CHEM PANEL Globulin 4.8 2.0 - 4.0 05/01 [facility] CHEM PANEL Albumin Lvl 4.1 3.5 - 5.0 05/01 [facility] CHEM PANEL Ketone 0.78 <=0.27 05/01 Quantitative mmol/L /2015 [facility] HEMATOLOGY WBC 9.9 3.7 - 10.4 05/01 [facility] HEMATOLOGY RBC 4.77 4.20 - 05/01 5.40 /2015 [facility] HEMATOLOGY Hgb 14.2 12.0 - 05/01 16.0 /2015 [facility] HEMATOLOGY Hct 43.7 36.0 - 05/01 48.0 /2015 [facility] HEMATOLOGY MCV 91.7 80.0 - 05/01 98.0 /2015 [facility] HEMATOLOGY MCH 29.7 27.0 - 05/01 31.0 /2015 [facility] HEMATOLOGY MCHC 32.4 32.0 - 05/01 36.0 /2015 [facility] HEMATOLOGY Platelet 295 133 - 450 05/01 [facility] HEMATOLOGY MPV 10.8 7.4 - 10.4 05/01 [facility] HEMATOLOGY RDW 12.9 11.5 - 05/01 14.5 /2015 [facility] HEMATOLOGY PTT 24.0 22.9 - 05/01 35.8 /2015 [facility] HEMATOLOGY PT 12.8 12.0 - 05/[address] [facility] HEMATOLOGY INR 0.93 0.85 - 05/01 1.17 /2015 [facility] HEMATOLOGY Basophils 1.4 0.0 - 1.0 05/01 [facility] HEMATOLOGY Eosinophils 1.5 0.0 - 4.0 05/01 [facility] HEMATOLOGY Segs-Bands # 6.2 1.5 - 8.1 05/01 [facility] HEMATOLOGY Lymphocytes 2.9 1.0 - 5.5 05/01 MH # /2015 [facility] HEMATOLOGY Monocytes # 0.6 0.0 - 0.8 05/01 [facility] HEMATOLOGY Basophils # 0.1 0.0 - 0.2 05/01 [facility] HEMATOLOGY Eosinophils 0.2 0.0 - 0.5 05/01 # /2015 [facility] HEMATOLOGY Segs 62.5 45.0 - 05/[address] [facility] HEMATOLOGY Lymphocytes 28.8 20.0 - 05/[address] [facility] HEMATOLOGY Monocytes 5.8 2.0 - 12.0 05/01 [facility] LIPIDS CHD Risk 8.66 3.90 - 04/[address] [facility] LIPIDS HDL 32 >=61 mg/dL 04/10 [facility] LIPIDS LDL See Note <=99 mg/dL 04/10 Result (Calculated) mg/dL Comment: LDL [facility] cholesterol cannot be calculated due to very high triglycerides (>400 mg/dL). Recommend Direct LDL if clinically indicated. LIPIDS VLDL See Note 2 04/10 Result *NA* /2014 Comment: VLDL [facility] (04/10/15 3:49 AM) - Cholesterol level cannot be accurately calculated due to very high triglycerides (>400 mg/dL). LIPIDS Trig 415 <=149 04/10 mg/dL /2014 [facility] LIPIDS Chol 277 <=199 04/10 mg/dL /2014 [facility] CHEM PANEL Creatinine 1.13 0.50 - 04/10 Lvl 1.40 /2014 [facility] CHEM PANEL eGFR 67 04/10 Result Comment: The [facility] eGFR is calculated using the CKD-EPI formula. In most young, healthy individuals the eGFR will be >90 mL/min/1.73m2 . The eGFR declines with age. An eGFR of 60-89 may be normal in some populations, particularly the elderly, for whom the CKD-EPI formula has not been extensively validated. Use of the eGFR is not recommended in the following populations:< br/>
Gwen viduals with unstable creatinine concentration s, including patients and those with serious co-morbid conditions.<b r/>
Patie nts with extremes in muscle mass or diet.

The data above are obtained from the National Kidney Disease Education Program (NKDEP) which additionally recommends that when the eGFR is used in patients with extremes of body mass index for purposes of drug dosing, the eGFR should be multiplied by the estimated BMI. HEMATOLOGY Platelet 234 133 - 450 04/10 MH /2014 [facility] HEMATOLOGY PTT 28.3 22.9 - 04/10 MH 35.8 /2015 [facility] SPECIAL Hgb A1C >16.0 % <=5.6 % 04/[address] [facility] CARDIAC Troponin-I <0.02 0.00 - 04/[address] [facility] CARDIAC Total CK 148 12 - 191 04/[address] [facility] CARDIAC CK MB Index <0.3 0.0 - 2.5 04/[address] [facility] CARDIAC CK MB <0.5 0.5 - 3.6 04/[address] [facility] CARDIAC CK MB <0.5 0.5 - 3.6 04/09 ENZYMES /2014 [facility] CARDIAC CK MB Index <0.3 0.0 - 2.5 04/[address] [facility] CARDIAC Troponin-I <0.02 0.00 - 04/[address] [facility] CARDIAC Total CK 152 12 - 191 04/[address] [facility] CARDIAC Troponin-I <0.02 0.00 - 04/[address] [facility] CARDIAC Total CK 186 12 - 191 04/[address] [facility] CARDIAC CK MB <0.5 0.5 - 3.6 04/[address] [facility] CARDIAC CK MB Index <0.3 0.0 - 2.5 04/[address] [facility] CHEM PANEL eGFR 104 04/09 Comment: The [facility] eGFR is calculated using the CKD-EPI formula. In most young, healthy individuals the eGFR will be >90 mL/min/1.73m2 . The eGFR declines with age. An eGFR of 60-89 may be normal in some populations, particularly the elderly, for whom the CKD-EPI formula has not been extensively validated. Use of the eGFR is not recommended in the following populations:< br/>
Gwen viduals with unstable creatinine concentration s, including patients and those with serious co-morbid conditions.<b r/>
Patie nts with extremes in muscle mass or diet.

The data above are obtained from the National Kidney Disease Education Program (NKDEP) which additionally recommends that when the eGFR is used in patients with extremes of body mass index for purposes of drug dosing, the eGFR should be multiplied by the estimated BMI. CHEM PANEL Calcium Lvl 10.1 8.5 - 10.5 04/09 [facility] CHEM PANEL CO2 25 24 - 32 04/09 [facility] CHEM PANEL Chloride Lvl 99 95 - 109 04/09 [facility] CHEM PANEL Total 7.5 6.4 - 8.4 04/09 Protein [facility] CHEM PANEL Globulin 4.0 2.0 - 4.0 04/09 [facility] CHEM PANEL A/G Ratio 0.9 0.7 - 1.6 04/09 [facility] CHEM PANEL B/C Ratio 11 6 - 25 04/09 [facility] CHEM PANEL AGAP 12.9 10.0 - 04/09 MH 20.0 [facility] CHEM PANEL ALT 24 0 - 65 04/09 [facility] CHEM PANEL Bili Total 0.4 0.2 - 1.3 04/09 [facility] CHEM PANEL Alk Phos 85 39 - 136 04/09 [facility] CHEM PANEL AST 16 0 - 37 04/09 [facility] CHEM PANEL Albumin Lvl 3.5 3.5 - 5.0 04/09 [facility] CHEM PANEL BUN 9 7 - 22 04/09 [facility] CHEM PANEL Glucose Lvl 348 70 - 99 04/09 [facility] CHEM PANEL Potassium 3.9 3.5 - 5.1 04/09 MH Lvl /2014 [facility] CHEM PANEL Sodium Lvl 133 135 - 145 04/09 [facility] CHEM PANEL Creatinine 0.79 0.50 - 04/09 MH Lvl 1.40 /2014 [facility] HEMATOLOGY Hct 39.5 36.0 - 04/[address] [facility] HEMATOLOGY Hgb 12.9 12.0 - 04/[address] [facility] HEMATOLOGY MCV 91.2 80.0 - 04/[address] [facility] HEMATOLOGY Platelet 242 133 - 450 04/09 [facility] HEMATOLOGY MCH 29.9 27.0 - 04/09 MH 31.0 /2014 [facility] HEMATOLOGY MCHC 32.8 32.0 - 04/09 MH 36.0 /2014 [facility] HEMATOLOGY RBC 4.33 4.20 - 04/09 MH 5.40 /2014 [facility] HEMATOLOGY RDW 13.0 11.5 - 04/09 MH 14.5 /2014 [facility] HEMATOLOGY WBC 7.7 3.7 - 10.4 04/09 MH /2014 [facility] HEMATOLOGY MPV 10.6 7.4 - 10.4 04/09 /2014 [facility] HEMATOLOGY Lymphocytes 28.2 20.0 - 04/09 MH 40.0 /2014 [facility] HEMATOLOGY Segs 60.2 45.0 - 04/09 MH 75.0 /2014 [facility] HEMATOLOGY Eosinophils 2.3 0.0 - 4.0 04/09 /2014 [facility] HEMATOLOGY Monocytes 7.9 2.0 - 12.0 04/09 MH /2014 [facility] HEMATOLOGY Lymphocytes 2.2 1.0 - 5.5 04/09 MH # /2015 [facility] HEMATOLOGY Eosinophils 0.2 0.0 - 0.5 04/09 MH # /2014 [facility] HEMATOLOGY Monocytes # 0.6 0.0 - 0.8 04/09 /2014 [facility] HEMATOLOGY Basophils # 0.1 0.0 - 0.2 04/09 /2014 [facility] HEMATOLOGY Basophils 1.4 0.0 - 1.0 04/09 /2014 [facility] HEMATOLOGY Segs-Bands # 4.6 1.5 - 8.1 04/09 /2014 [facility] CHEM PANEL Ketone 1.00 <=0.27 03/14 Quantitative mmol/L /2014 [facility] ELECTROLYT AGAP 12.7 10.0 - 03/14 ES 20.0 [facility] ELECTROLYT B/C Ratio 7 6 - 25 03/14 ES [facility] ELECTROLYT Globulin 4.6 2.0 - 4.0 03/14 ES [facility] ELECTROLYT A/G Ratio 0.8 0.7 - 1.6 03/14 ES [facility] ELECTROLYT Chloride Lvl 98 95 - 109 03/14 ES [facility] ELECTROLYT CO2 24 24 - 32 03/14 ES /2014 [facility] ELECTROLYT Calcium Lvl 9.0 8.5 - 10.5 03/14 ES /2014 [facility] ELECTROLYT Total 8.4 6.4 - 8.4 03/14 ES [facility] ELECTROLYT Creatinine 1.07 0.50 - 03/14 ES Lvl 1.40 /2014 [facility] ELECTROLYT Sodium Lvl 131 135 - 145 03/14 [facility] ELECTROLYT Potassium 3.7 3.5 - 5.1 03/14 ES Lvl /2014 [facility] ELECTROLYT ALT 41 0 - 65 03/14 [facility] ELECTROLYT Alk Phos 99 39 - 136 03/14 [facility] ELECTROLYT Albumin Lvl 3.8 3.5 - 5.0 03/14 [facility] ELECTROLYT AST 22 0 - 37 03/14 [facility] ELECTROLYT Bili Total 0.5 0.2 - 1.3 03/14 [facility] ELECTROLYT Glucose Lvl 396 70 - 99 03/14 [facility] ELECTROLYT BUN 7 7 - 22 03/14 [facility] ELECTROLYT eGFR 72 03/14 Comment: The [facility] eGFR is calculated using the CKD-EPI formula. In most young, healthy individuals the eGFR will be >90 mL/min/1.73m2 . The eGFR declines with age. An eGFR of 60-89 may be normal in some populations, particularly the elderly, for whom the CKD-EPI formula has not been extensively validated. Use of the eGFR is not recommended in the following populations:< br/>
Gwen viduals with unstable creatinine concentration s, including patients and those with serious co-morbid conditions.<b r/>
Patie nts with extremes in muscle mass or diet.

The data above are obtained from the National Kidney Disease Education Program (NKDEP) which additionally recommends that when the eGFR is used in patients with extremes of body mass index for purposes of drug dosing, the eGFR should be multiplied by the estimated BMI. ENDOCRINOL S Preg Negative Negative 03/14 OGY *NA* /2014 [facility] (03/14/15 12:44 PM) HEMATOLOGY Segs 86.4 45.0 - 03/[address] [facility] HEMATOLOGY Lymphocytes 6.2 20.0 - 03/[address] [facility] HEMATOLOGY Segs-Bands # 10.3 1.5 - 8.1 03/14 [facility] HEMATOLOGY Basophils 0.8 0.0 - 1.0 03/14 [facility] HEMATOLOGY Lymphocytes 0.7 1.0 - 5.5 03/14 MH # /2015 [facility] HEMATOLOGY Eosinophils 0.5 0.0 - 4.0 03/14 /2014 [facility] HEMATOLOGY Monocytes 6.1 2.0 - 12.0 03/14 /2014 [facility] HEMATOLOGY Eosinophils 0.1 0.0 - 0.5 03/14 MH # /2015 [facility] HEMATOLOGY Monocytes # 0.7 0.0 - 0.8 03/14 /2014 [facility] HEMATOLOGY Basophils # 0.1 0.0 - 0.2 03/14 /2014 [facility] HEMATOLOGY MPV 11.0 7.4 - 10.4 03/14 /2014 [facility] HEMATOLOGY Platelet 216 133 - 450 03/14 /2014 [facility] HEMATOLOGY RDW 13.3 11.5 - 03/14 MH 14.5 /2014 [facility] HEMATOLOGY WBC 11.9 3.7 - 10.4 03/14 /2014 [facility] HEMATOLOGY RBC 4.65 4.20 - 03/14 5.40 /2014 [facility] HEMATOLOGY MCV 92.2 80.0 - 03/14 98.0 /2014 [facility] HEMATOLOGY MCH 29.5 27.0 - 03/14 31.0 /2014 [facility] HEMATOLOGY MCHC 32.0 32.0 - 03/14 36.0 /2014 [facility] HEMATOLOGY Hgb 13.7 12.0 - 03/14 16.0 /2014 [facility] HEMATOLOGY Hct 42.8 36.0 - 03/14 48.0 /2014 [facility] URINE AND UA <=1.0 0.1 - 1.0 03/14 STOOL Urobilinogen mg/dL /2014 [facility] URINE AND UA Color Ltyellow 03/14 STOOL /2014 [facility] URINE AND UA Ketones 20 mg/dL Negative 03/14 STOOL mg/dL /2014 [facility] URINE AND UA Bili Negative Negative 03/14 STOOL *NA* /2014 [facility] (03/14/15 12:44 PM) URINE AND UA Blood Negative Negative 03/14 STO[facility] (03/14/15 12:44 PM) /2014 [facility] URINE AND UA Nitrite Negative Negative 03/14 STOOL (03/14/15 12:44 PM) /2014 [facility] URINE AND UA RBC 4 0 - 2 03/14 STOOL /2014 [facility] URINE AND UA Protein 30 mg/dL Negative 03/14 STOOL mg/dL /2014 [facility] URINE AND UA Turbidity Clear Clear 03/14 STO[facility] (03/14/15 12:44 PM) /2014 [facility] URINE AND UA Spec Grav 1.033 <=1.030 03/[address] [facility] URINE AND UA pH 7.0 5.0 - 8.0 03/[address] [facility] URINE AND UA Glucose 500 mg/dL Negative 03/14 STOOL mg/dL [facility] URINE AND UA WBC <1 0 - 5 03/14 STOOL [facility] URINE AND UA Leuk Est Negative Negative 03/14 STO[facility] (03/14/15 12:44 PM) [facility] URINE AND UA Sq Epi Occasional Few /LPF 03/14 STOOL /LPF /2014 [facility] CARDIAC CK MB Index <0.7 0.0 - 2.5 12/[address] [facility] CARDIAC BNP 3 <=100 12/19 ENZ[facility] pg/mL [facility] CARDIAC Total CK 72 12 - 191 12/[address] [facility] CARDIAC CK MB <0.5 0.5 - 3.6 12/[address] [facility] CARDIAC Troponin-I <0.02 0.00 - 12/[address] [facility] CHEM PANEL Procalcitoni <0.05 0.00 - 12/19 n Lvl ng/mL 0.10 [facility] CHEM PANEL Magnesium 1.5 1.8 - 2.4 12/[address] [facility] ELECTROLYT Chloride Lvl 103 95 - 109 12/[address] [facility] ELECTROLYT Calcium Lvl 8.9 8.5 - 10.5 12/[address] [facility] ELECTROLYT Sodium Lvl 138 135 - 145 12/[address] [facility] ELECTROLYT Potassium 3.9 3.5 - 5.1 12/[address] [facility] ELECTROLYT eGFR 78 12/19 [facility] Comment: The [facility] eGFR is calculated using the CKD-EPI formula. In most young, healthy individuals the eGFR will be >90 mL/min/1.73m2 . The eGFR declines with age. An eGFR of 60-89 may be normal in some populations, particularly the elderly, for whom the CKD-EPI formula has not been extensively validated. Use of the eGFR is not recommended in the following populations:< br/>
Gwen viduals with unstable creatinine concentration s, including patients and those with serious co-morbid conditions.<b r/>
Patie nts with extremes in muscle mass or diet.

The data above are obtained from the National Kidney Disease Education Program (NKDEP) which additionally recommends that when the eGFR is used in patients with extremes of body mass index for purposes of drug dosing, the eGFR should be multiplied by the estimated BMI. ELECTROLYT Bili Total 0.4 0.2 - 1.3 12/19 [facility] ELECTROLYT BUN 10 7 - 22 12/19 [facility] ELECTROLYT Glucose Lvl 352 70 - 99 12/19 [facility] ELECTROLYT AST 33 0 - 37 12/19 [facility] ELECTROLYT Alk Phos 84 39 - 136 12/19 [facility] ELECTROLYT Creatinine 1.0 0.5 - 1.4 12/19 ES Lvl /2014 [facility] ELECTROLYT CO2 25 24 - 32 12/19 [facility] ELECTROLYT Total 7.2 6.4 - 8.4 12/[address] [facility] ELECTROLYT Albumin Lvl 3.4 3.5 - 5.0 12/19 [facility] ELECTROLYT ALT 42 0 - 65 12/19 [facility] ELECTROLYT Globulin 3.8 2.0 - 4.0 12/19 [facility] ELECTROLYT A/G Ratio 0.9 0.7 - 1.6 12/19 [facility] ELECTROLYT AGAP 13.9 10.0 - 12/19 ES 20.0 [facility] ELECT[facility]OLYT B/C Ratio 10 6 - 25 12/19 [facility] HEMATOLOGY Monocytes 5.9 2.0 - 12.0 12/19 [facility] HEMATOLOGY Basophils # 0.1 0.0 - 0.2 12/19 [facility] HEMATOLOGY Segs-Bands # 4.0 1.5 - 8.1 12/19 [facility] HEMATOLOGY Basophils 1.2 0.0 - 1.0 12/19 [facility] HEMATOLOGY Eosinophils 2.4 0.0 - 4.0 12/19 [facility] HEMATOLOGY Eosinophils 0.2 0.0 - 0.5 12/19 /2014 [facility] HEMATOLOGY Monocytes # 0.4 0.0 - 0.8 12/19 [facility] HEMATOLOGY Lymphocytes 31.4 20.0 - 12/19 MH 40.0 /2014 [facility] HEMATOLOGY Lymphocytes 2.1 1.0 - 5.5 12/19 MH # /2015 [facility] HEMATOLOGY Segs 59.1 45.0 - 12/19 MH 75.0 /2014 [facility] HEMATOLOGY MPV 10.8 7.4 - 10.4 12/19 /2014 [facility] HEMATOLOGY Hgb 13.2 12.0 - 12/19 MH 16.0 /2014 [facility] HEMATOLOGY MCV 92.2 80.0 - 12/19 MH 98.0 /2014 [facility] HEMATOLOGY Hct 38.6 36.0 - 12/19 MH 48.0 /2014 [facility] HEMATOLOGY RDW 13.7 11.5 - 12/19 MH 14.5 /2014 [facility] HEMATOLOGY Platelet 219 133 - 450 12/19 MH /2014 [facility] HEMATOLOGY MCH 31.5 27.0 - 12/19 MH 31.0 /2014 [facility] HEMATOLOGY MCHC 34.2 32.0 - 12/19 MH 36.0 /2014 [facility] HEMATOLOGY RBC 4.18 4.20 - 12/19 MH 5.40 /2014 [facility] HEMATOLOGY WBC 6.8 3.7 - 10.4 12/19 /2014 [facility] HEMATOLOGY D-Dimer 0.44 12/19 /2014 [facility] LIPIDS VLDL See Note 4 12/19 Result *NA* /2014 Comment: VLDL [facility] (12/19/14 10:52 AM) - Cholesterol level cannot be accurately calculated due to very high triglycerides (>400 mg/dL). LIPIDS LDL See Note <=99 mg/dL 12/19 Result (Calculated) mg/dL /2014 Comment: LDL [facility] cholesterol cannot be calculated due to very high triglycerides (>400 mg/dL). Recommend Direct LDL if clinically indicated. LIPIDS CHD Risk 7.15 3.90 - 12/19 5.80 /2014 [facility] LIPIDS HDL 26 >=61 mg/dL 12/19 /2014 [facility] LIPIDS Chol 186 <=199 12/19 mg/dL /2014 [facility] LIPIDS Trig 744 <=149 12/19 mg/dL /2014 [facility] SPECIAL Hgb A1C 14.4 <=5.6 % 12/19 CHEMISTRY /2014 [facility] THYROID TSH 1.360 0.360 - 12/19 PANEL 3.740 /2014 [facility] CARDIAC CK MB Index <0.6 0.0 - 2.5 12/19 ENZYMES /2014 [facility] CARDIAC CK MB <0.5 0.5 - 3.6 12/19 ENZYMES /2014 [facility] CARDIAC Total CK 81 12 - 191 12/19 MH ENZYMES /2014 [facility] CARDIAC Troponin-I <0.02 0.00 - 12/[address] [facility] CARDIAC CK MB Index <0.6 0.0 - 2.5 12/[address] [facility] CARDIAC CK MB <0.5 0.5 - 3.6 12/[address] [facility] CARDIAC Troponin-I <0.02 0.00 - 12/[address] [facility] CARDIAC Total CK 83 12 - 191 12/[address] [facility] CHEM PANEL Glucose Lvl 385 70 - 99 12/18 [facility] CHEM PANEL CO2 21 24 - 32 12/18 [facility] CHEM PANEL AGAP 17.6 10.0 - 12/18 MH 20.0 /2014 [facility] CHEM PANEL Albumin Lvl 3.8 3.5 - 5.0 12/18 [facility] CHEM PANEL Alk Phos 80 39 - 136 12/18 [facility] CHEM PANEL A/G Ratio 1.0 0.7 - 1.6 12/18 [facility] CHEM PANEL Globulin 4.0 2.0 - 4.0 12/18 [facility] CHEM PANEL Total 7.8 6.4 - 8.4 12/[address] [facility] CHEM PANEL AST 16 0 - 37 12/18 [facility] CHEM PANEL Bili Total 0.4 0.2 - 1.3 12/18 [facility] CHEM PANEL eGFR 89 12/18 Comment: The [facility] eGFR is calculated using the CKD-EPI formula. In most young, healthy individuals the eGFR will be >90 mL/min/1.73m2 . The eGFR declines with age. An eGFR of 60-89 may be normal in some populations, particularly the elderly, for whom the CKD-EPI formula has not been extensively validated. Use of the eGFR is not recommended in the following populations:< br/>
Gwen viduals with unstable creatinine concentration s, including patients and those with serious co-morbid conditions.<b r/>
Patie nts with extremes in muscle mass or diet.

The data above are obtained from the National Kidney Disease Education Program (NKDEP) which additionally recommends that when the eGFR is used in patients with extremes of body mass index for purposes of drug dosing, the eGFR should be multiplied by the estimated BMI. CHEM PANEL Creatinine 0.9 0.5 - 1.4 12/18 Lvl /2014 [facility] CHEM PANEL ALT 31 0 - 65 12/18 [facility] CHEM PANEL Chloride Lvl 98 95 - 109 12/18 [facility] CHEM PANEL Sodium Lvl 133 135 - 145 12/18 [facility] CHEM PANEL Potassium 3.6 3.5 - 5.1 12/18 Lvl /2014 [facility] CHEM PANEL Calcium Lvl 9.1 8.5 - 10.5 12/18 [facility] CHEM PANEL B/C Ratio 10 6 - 25 12/18 [facility] CHEM PANEL BUN 9 7 - 22 12/18 [facility] HEMATOLOGY MPV 10.6 7.4 - 10.4 12/18 [facility] HEMATOLOGY Hct 39.8 36.0 - 12/18 48.0 /2014 [facility] HEMATOLOGY MCV 91.3 80.0 - 12/18 98.0 /2014 [facility] HEMATOLOGY Hgb 13.6 12.0 - 12/18 MH 16.0 /2014 [facility] HEMATOLOGY RDW 13.6 11.5 - 12/18 MH 14.5 /2014 [facility] HEMATOLOGY Platelet 226 133 - 450 12/18 /2014 [facility] HEMATOLOGY MCH 31.1 27.0 - 12/18 31.0 /2014 [facility] HEMATOLOGY MCHC 34.1 32.0 - 12/18 36.0 /2014 [facility] HEMATOLOGY WBC 7.7 3.7 - 10.4 12/18 /2014 [facility] HEMATOLOGY RBC 4.36 4.20 - 12/18 MH 5.40 /2014 [facility] HEMATOLOGY Lymphocytes 2.8 1.0 - 5.5 12/18 MH # /2014 [facility] HEMATOLOGY Monocytes # 0.6 0.0 - 0.8 12/18 [facility] HEMATOLOGY Eosinophils 0.2 0.0 - 0.5 12/18 MH # /2014 [facility] HEMATOLOGY Basophils # 0.1 0.0 - 0.2 12/18 /2014 [facility] HEMATOLOGY Lymphocytes 35.9 20.0 - 12/18 MH 40.0 /2014 [facility] HEMATOLOGY Segs 53.1 45.0 - 12/18 MH 75.0 /2014 [facility] HEMATOLOGY Monocytes 7.3 2.0 - 12.0 12/18 /2014 [facility] HEMATOLOGY Segs-Bands # 4.1 1.5 - 8.1 12/18 [facility] HEMATOLOGY Eosinophils 2.6 0.0 - 4.0 12/18 [facility] HEMATOLOGY Basophils 1.1 0.0 - 1.0 12/18 [facility] IMMUNOLOGY CDC HIV 4th Negative Negative 12/18 [facility] (12/18/14 9:20 AM) [facility] CARDIAC CK MB Index 0.9 0.0 - 2.5 08/[address] [facility] CARDIAC Total CK 93 12 - 191 08/[address] [facility] CARDIAC BNP 16 <=100 08/04 <sup>5</sup>I ENZYMES pg/mL /[address] [facility] Data: Elevated results are in line with increasing severity of
con gestive heart failure. Minor elevations between 100 and 300
may be seen with Myocardial Ischemia, Sodium retaining drugs,
an d compensated/t reated heart failure. CARDIAC Troponin-I <0.02 0.00 - 08/[address] [facility] CARDIAC CK MB 0.8 0.5 - 3.6 08/[address] [facility] CHEM PANEL Magnesium 1.7 1.8 - 2.4 08/[address] [facility] ELECTROLYT Chloride Lvl 106 95 - 109 08/[address] [facility] ELECTROLYT Potassium 4.0 3.5 - 5.1 08/[address] [facility] ELECTROLYT Sodium Lvl 141 135 - 145 08/[address] [facility] ELECTROLYT eGFR 102 08/04 <sup>1</sup>R ES esult [facility] Comment: The eGFR is calculated using the CKD-EPI formula. In most young, healthy individuals the eGFR will be >90 mL/min/1.73m2 . The eGFR declines with age. An eGFR of 60-89 may be normal in some populations, particularly the elderly, for whom the CKD-EPI formula has not been extensively validated. Use of the eGFR is not recommended in the following populations:& lt;br/>
I ndividuals with unstable creatinine concentration s, including patients and those with serious co-morbid conditions.<b r/>
Patie nts with extremes in muscle mass or diet.

The data above are obtained from the National Kidney Disease Education Program (NKDEP) which additionally recommends that when the eGFR is used in patients with extremes of body mass index for purposes of drug dosing, the eGFR should be multiplied by the estimated BMI. ELECTROLYT Creatinine 0.8 0.5 - 1.4 08/04 MH ES Lvl /2015 [facility] ELECTROLYT ALT 53 0 - 65 08/04 ES /2014 [facility] ELECTROLYT A/G Ratio 1.1 0.7 - 1.6 08/04 ES /2014 [facility] ELECTROLYT CO2 23 24 - 32 08/04 MH ES /2014 [facility] ELECTROLYT Calcium Lvl 8.8 8.5 - 10.5 08/04 ES /2014 [facility] ELECTROLYT Total 6.6 6.4 - 8.4 08/04 ES Protein /2014 [facility] ELECTROLYT Albumin Lvl 3.4 3.5 - 5.0 08/04 ES /2014 [facility] ELECTROLYT AST 42 0 - 37 08/04 ES /2014 [facility] ELECTROLYT Bili Total 0.4 0.2 - 1.3 08/04 ES /2014 [facility] ELECTROLYT Alk Phos 81 39 - 136 08/04 MH ES /2014 [facility] ELECTROLYT AGAP 16.0 10.0 - 04 ES 20.0 /2014 [facility] ELECTROLYT Globulin 3.2 2.0 - 4.0 08/04 ES /2014 [facility] ELECTROLYT B/C Ratio 9 6 - 25 08/04 ES /2014 [facility] ELECTROLYT BUN 7 7 - 22 08/04 ES /2014 [facility] ELECTROLYT Glucose Lvl 208 70 - 99 08/04 <sup>3</sup>I MH ES nterpretive [facility] Data: Adult reference range values reflect the clinical guidelines
of the [place] [employer]. HEMATOLOGY Basophils # 0.1 0.0 - 0.2 08/04 [facility] HEMATOLOGY Eosinophils 0.3 0.0 - 0.5 08/04 MH # /2014 [facility] HEMATOLOGY Monocytes # 0.5 0.0 - 0.8 08/04 /2014 [facility] HEMATOLOGY Lymphocytes 2.7 1.0 - 5.5 08/04 MH # /2014 [facility] HEMATOLOGY Eosinophils 3.7 0.0 - 4.0 08/04 /2014 [facility] HEMATOLOGY Monocytes 7.3 2.0 - 12.0 08/04 /2014 [facility] HEMATOLOGY Basophils 1.2 0.0 - 1.0 08/04 /2014 [facility] HEMATOLOGY Segs 49.6 45.0 - 04 MH 75.0 /2014 [facility] HEMATOLOGY Lymphocytes 38.2 20.0 - 08/04 MH 40.0 /2014 [facility] HEMATOLOGY Segs-Bands # 3.6 1.5 - 8.1 08/04 /2014 [facility] HEMATOLOGY RDW 14.0 11.5 - 08/04 MH 14.5 /2014 [facility] HEMATOLOGY MCHC 33.0 32.0 - 08/04 MH 36.0 /2014 [facility] HEMATOLOGY Platelet 216 133 - 450 08/04 /2014 [facility] HEMATOLOGY MCH 30.9 27.0 - 08/04 MH 31.0 /2014 [facility] HEMATOLOGY MCV 93.6 80.0 - 08/04 MH 98.0 /2014 [facility] HEMATOLOGY MPV 10.1 7.4 - 10.4 08/04 /2014 [facility] HEMATOLOGY Hgb 12.0 12.0 - 08/04 MH 16.0 /2014 [facility] HEMATOLOGY RBC 3.89 4.20 - 08/04 MH 5.40 /2014 [facility] HEMATOLOGY Hct 36.5 36.0 - 08/04 MH 48.0 /2014 [facility] HEMATOLOGY WBC 7.2 3.7 - 10.4 08/04 /2014 [facility] LIPIDS VLDL 76 08/04 MH /2014 [facility] LIPIDS LDL 67 <=99 mg/dL 08/04 (Calculated) /2014 [facility] LIPIDS Trig 379 <=149 08/04 mg/dL /2014 [facility] LIPIDS CHD Risk 6.50 3.90 - 08/04 5.80 /2014 [facility] LIPIDS Chol 169 <=199 08/04 mg/dL /2014 [facility] LIPIDS HDL 26 >=61 mg/dL 08/04 [facility] THYROID TSH 1.540 0.360 - 08/04 PANEL 3.740 /2014 [facility] CARDIAC Total CK 110 12 - 191 08/02 ENZYMES /2014 [facility] CARDIAC CK MB <0.5 0.5 - 3.6 08/02 ENZYMES /2014 [facility] CARDIAC Troponin-I <0.02 0.00 - 08/[address] [facility] CARDIAC CK MB Index <0.5 0.0 - 2.5 08/02 ENZYMES /2014 [facility] ENDOCRINOL S Preg Negative Negative 08/02 OGY *NA* /2014 [facility] (08/02/14 5:37 AM) CARDIAC Troponin-I <0.02 0.00 - 08/[address] [facility] URINE AND UA <=1.0 0.1 - 1.0 08/01 STOOL Urobilinogen mg/dL [facility] URINE AND UA Color Ltyellow 08/01 [facility] URINE AND UA RBC 3 0 - 2 08/01 [facility] URINE AND UA WBC <1 0 - 5 08/01 [facility] URINE AND UA Sq Epi Occasional Few /LPF 08/01 STOOL /LPF /2014 [facility] URINE AND UA Leuk Est Negative Negative 08/01 [facility] (08/01/14 3:14 PM) URINE AND UA Blood Negative Negative 08/01 [facility] (08/01/14 3:14 PM) [facility] URINE AND UA Bili Negative Negative 08/01 [facility] *NA* /2014 [facility] (08/01/14 3:14 PM) URINE AND UA Nitrite Negative Negative 08/01 [facility] (08/01/14 3:14 PM) [facility] URINE AND UA Spec Grav 1.024 <=1.030 08/[address] [facility] URINE AND UA Turbidity Clear Clear 08/01 [facility] (08/01/14 3:14 PM) [facility] URINE AND UA Ketones Negative Negative 08/01 [facility]OOL mg/dL mg/dL URINE AND UA Glucose 500 mg/dL Negative 08/01 [facility] mg/dL URINE AND UA Protein Negative Negative 08/01 [facility] mg/dL mg/dL URINE AND UA pH 5.0 5.0 - 8.0 08/01 [facility] CARDIAC CK MB <0.5 0.5 - 3.6 08/[address] [facility] CARDIAC Total CK 124 12 - 191 08/[address] [facility] CARDIAC CK MB Index <0.4 0.0 - 2.5 08/[address] [facility] CHEM PANEL eGFR 102 08/01 <sup>2</sup>R esult [facility] Comment: The eGFR is calculated using the CKD-EPI formula. In most young, healthy individuals the eGFR will be >90 mL/min/1.73m2 . The eGFR declines with age. An eGFR of 60-89 may be normal in some populations, particularly the elderly, for whom the CKD-EPI formula has not been extensively validated. Use of the eGFR is not recommended in the following populations:& lt;br/>
I ndividuals with unstable creatinine concentration s, including patients and those with serious co-morbid conditions.<b r/>
Patie nts with extremes in muscle mass or diet.

The data above are obtained from the National Kidney Disease Education Program (NKDEP) which additionally recommends that when the eGFR is used in patients with extremes of body mass index for purposes of drug dosing, the eGFR should be multiplied by the estimated BMI. CHEM PANEL Albumin Lvl 3.7 3.5 - 5.0 08/01 [facility] CHEM PANEL ALT 53 0 - 65 08/01 [facility] CHEM PANEL AST 46 0 - 37 08/01 [facility] CHEM PANEL Alk Phos 86 39 - 136 08/01 [facility] CHEM PANEL Glucose Lvl 277 70 - 99 08/01 <sup>4</sup>I nterpretive [facility] Data: Adult reference range values reflect the clinical guidelines
of the [place] [employer]. CHEM PANEL BUN 9 7 - 22 08/01 [facility] CHEM PANEL AGAP 14.0 10.0 - 04 MH 20.0 /2014 [facility] CHEM PANEL B/C Ratio 11 6 - 25 08/01 [facility] CHEM PANEL Globulin 4.2 2.0 - 4.0 08/01 [facility] CHEM PANEL A/G Ratio 0.9 0.7 - 1.6 08/01 [facility] CHEM PANEL Creatinine 0.8 0.5 - 1.4 08/01 MH l [facility] CHEM PANEL CO2 23 24 - 32 08/01 [facility] CHEM PANEL Calcium Lvl 8.7 8.5 - 10.5 08/01 [facility] CHEM PANEL Total 7.9 6.4 - 8.4 08/01 [facility] CHEM PANEL Bili Total 0.4 0.2 - 1.3 08/01 [facility] CHEM PANEL Potassium 4.0 3.5 - 5.1 08/01 MH Lvl [facility] CHEM PANEL Chloride Lvl 100 95 - 109 08/01 [facility] CHEM PANEL Sodium Lvl 133 135 - 145 08/01 [facility] CHEM PANEL Phosphorus 3.0 2.5 - 4.5 08/01 [facility] CHEM PANEL Magnesium 1.4 1.8 - 2.4 08/01 MH Lvl /2014 [facility] HEMATOLOGY INR 0.98 0.85 - 08/01 <sup>6</sup>I 1.17 /[address] [facility] Data: RECOMMENDED RANGES FOR PROTIME INR:
2.0-3.0 for most medical and surgical thromboemboli c states.
2.5-3.5 for artificial heart valves and recurrent embolism.<br/ >
INR SHOULD BE USED ONLY FOR PATIENTS ON STABLE ANTICOAGULANT THERAPY. HEMATOLOGY PTT 25.4 22.9 - 08/01 <sup>7</sup>I 35.8 /[address] [facility] Data: Heparin Therapeutic Range: 57 - 92 Seconds HEMATOLOGY PT 13.0 12.0 - 08/01 14.7 /2014 [facility] HEMATOLOGY Lymphocytes 2.6 1.0 - 5.5 08/01 MH # /2014 [facility] HEMATOLOGY Monocytes # 0.5 0.0 - 0.8 08/01 [facility] HEMATOLOGY Basophils # 0.1 0.0 - 0.2 08/01 /2014 [facility] HEMATOLOGY Eosinophils 0.2 0.0 - 0.5 08/01 # /2014 [facility] HEMATOLOGY Segs-Bands # 5.0 1.5 - 8.1 08/01 [facility] HEMATOLOGY Segs 60.1 45.0 - 08/01 75.0 /2014 [facility] HEMATOLOGY Lymphocytes 30.5 20.0 - 08/01 40.0 /2014 [facility] HEMATOLOGY Monocytes 5.4 2.0 - 12.0 08/01 [facility] HEMATOLOGY Eosinophils 2.7 0.0 - 4.0 08/01 [facility] HEMATOLOGY Basophils 1.3 0.0 - 1.0 08/01 [facility] HEMATOLOGY MPV 10.2 7.4 - 10.4 08/01 [facility] HEMATOLOGY Platelet 253 133 - 450 08/01 [facility] HEMATOLOGY RDW 14.0 11.5 - 08/01 14.5 /2014 [facility] HEMATOLOGY Hgb 13.5 12.0 - 08/01 16.0 /2014 [facility] HEMATOLOGY RBC 4.21 4.20 - 08/01 5.40 /2014 [facility] MCHC 34.8 32.0 - 08/01 36.0 /2014 [facility] HEMATOLOGY MCH 32.0 27.0 - 08/01 31.0 /2014 [facility] HEMATOLOGY WBC 8.4 3.7 - 10.4 08/01 [facility] HEMATOLOGY MCV 91.9 80.0 - 08/[address] [facility] HEMATOLOGY Hct 38.7 36.0 - 08/[address] [facility] HEMATOLOGY D-Dimer 0.58 05/06 <sup>4</sup>I nterpretive [facility] Data: In DIC, quantitative D-Dimer is generally greater than
0.66 ug/mL FEU. Values of quantitative D-Dimer less than
0.40 ug/mL FEU have been reported to be associated with a low
proba bility of deep vein thrombosis/pu lmonary embolism.<br/ >This test alone should not be used to rule out DVT/PE. CARDIAC CK MB 0.8 0.5 - 3.6 05/[address] [facility] CARDIAC Total CK 159 12 - 191 05/[address] [facility] CARDIAC Troponin-I <0.02 0.00 - 05/[address] [facility] CARDIAC CK MB Index 0.5 0.0 - 2.5 05/[address] [facility] CHEM PANEL Ketone 0.19 <=0.27 05/06 Quantitative mmol/L /2014 [facility] CHEM PANEL eGFR 79 05/06 <sup>1</sup>R esult [facility] Comment: The eGFR is calculated using the CKD-EPI formula. In most young, healthy individuals the eGFR will be >90 mL/min/1.73m2 . The eGFR declines with age. An eGFR of 60-89 may be normal in some populations, particularly the elderly, for whom the CKD-EPI formula has not been extensively validated. Use of the eGFR is not recommended in the following populations:& lt;br/>
I ndividuals with unstable creatinine concentration s, including patients and those with serious co-morbid conditions.<b r/>
Patie nts with extremes in muscle mass or diet.

The data above are obtained from the National Kidney Disease Education Program (NKDEP) which additionally recommends that when the eGFR is used in patients with extremes of body mass index for purposes of drug dosing, the eGFR should be multiplied by the estimated BMI. CHEM PANEL Alk Phos 134 39 - 136 05/06 [facility] CHEM PANEL Bili Total 0.4 0.2 - 1.3 05/06 [facility] CHEM PANEL AST 41 0 - 37 05/06 [facility] CHEM PANEL ALT 65 0 - 65 05/06 [facility] CHEM PANEL Creatinine 1.0 0.5 - 1.4 05/[address] [facility] CHEM PANEL B/C Ratio 9 6 - 25 05/06 [facility] CHEM PANEL AGAP 13.7 10.0 - 05/06 MH 20.0 /2014 [facility] CHEM PANEL CO2 25 24 - 32 05/06 [facility] CHEM PANEL A/G Ratio 1.1 0.7 - 1.6 05/06 [facility] CHEM PANEL Globulin 3.9 2.0 - 4.0 05/06 [facility] CHEM PANEL Albumin Lvl 4.1 3.5 - 5.0 05/06 [facility] CHEM PANEL Total 8.0 6.4 - 8.4 05/06 [facility] CHEM PANEL BUN 9 7 - 22 05/06 [facility] CHEM PANEL Glucose Lvl 463 70 - 99 05/06 <sup>2</sup>R esult [facility] Comment: Critical Result(s) called to CHELSIE RODRIGUEZ at 05/05/2014 18:31 by CV. Read back OK.
<sup> 3</sup>Interp retive Data: Adult reference range values reflect the clinical guidelines
of the [place] [employer]. CHEM PANEL Calcium Lvl 9.5 8.5 - 10.5 05/06 [facility] CHEM PANEL Sodium Lvl 130 135 - 145 05/06 [facility] CHEM PANEL Chloride Lvl 95 95 - 109 05/06 [facility] CHEM PANEL Potassium 3.7 3.5 - 5.1 05/06 Lvl /2014 [facility] HEMATOLOGY RBC 4.35 4.20 - 05/06 MH 5.40 /2014 [facility] HEMATOLOGY Hgb 13.5 12.0 - 05/[address] [facility] HEMATOLOGY WBC 9.7 3.7 - 10.4 05/06 [facility] HEMATOLOGY MPV 10.2 7.4 - 10.4 05/06 [facility] HEMATOLOGY MCHC 34.5 32.0 - 05/06 MH 36.0 /2014 [facility] HEMATOLOGY RDW 13.1 11.5 - 05/06 MH 14.5 /2014 [facility] HEMATOLOGY Hct 39.0 36.0 - 05/06 MH 48.0 /2014 [facility] HEMATOLOGY MCH 30.9 27.0 - 05/06 MH 31.0 /2014 [facility] HEMATOLOGY MCV 89.6 80.0 - 05/06 MH 98.0 /2014 [facility] HEMATOLOGY Platelet 257 133 - 450 05/06 /2014 [facility] HEMATOLOGY RBC Morph Normal 05/06 (05/05/14 6:01 PM) /2014 [facility] HEMATOLOGY Plt Morph Normal 05/06 MH (05/05/14 6:01 PM) /2014 [facility] HEMATOLOGY Segs 55.7 45.0 - 05/06 MH 75.0 /2014 [facility] HEMATOLOGY Lymphocytes 35.7 20.0 - 05/06 MH 40.0 /2014 [facility] HEMATOLOGY Monocytes 5.7 2.0 - 12.0 05/06 /2014 [facility] HEMATOLOGY Eosinophils 1.9 0.0 - 4.0 05/06 /2014 [facility] HEMATOLOGY Basophils 1.0 0.0 - 1.0 05/06 /2014 [facility] HEMATOLOGY Lymphocytes 3.5 1.0 - 5.5 05/06 MH # /2014 [facility] HEMATOLOGY Monocytes # 0.6 0.0 - 0.8 05/06 /2014 [facility] HEMATOLOGY Segs-Bands # 5.4 1.5 - 8.1 05/06 /2014 [facility] HEMATOLOGY Eosinophils 0.2 0.0 - 0.5 05/06 MH # /2014 [facility] HEMATOLOGY Basophils # 0.1 0.0 - 0.2 05/06 /2014 [facility] URINE AND UA pH 5.0 5.0 - 8.0 05/06 STOOL /2014 [facility] URINE AND UA Spec Grav 1.021 <=1.030 05/06 STOOL /2014 [facility] URINE AND UA Glucose 500 mg/dL Negative 05/06 STOOL mg/dL /2014 [facility] URINE AND UA Protein Negative Negative 05/06 STOOL mg/dL mg/dL /2014 [facility] URINE AND UA RBC 1 0 - 2 05/06 STOOL /2014 [facility] URINE AND UA Blood Negative Negative 05/06 STOOL (05/05/14 6:01 PM) /2014 [facility] URINE AND UA Nitrite Negative Negative 05/06 STOOL (05/05/14 6:01 PM) /2014 [facility] URINE AND UA Leuk Est Negative Negative 05/06 STOOL (05/05/14 6:01 PM) [facility] URINE AND UA Sq Epi None Seen 05/06 STOOL [facility] URINE [facility] UA Color Colorless 05/06 STOOL [facility] URINE AND UA Turbidity Clear Clear 05/06 STOOL (05/05/14 6:01 PM) [facility] URINE AND UA Ketones Negative Negative 05/06 STOOL mg/dL mg/dL [facility] URINE AND UA Bili Negative Negative 05/06 STOOL *NA* /2014 [facility] (05/05/14 6:01 PM) URINE AND UA <=1.0 0.1 - 1.0 05/06 STOOL Urobilinogen mg/dL /2014 [facility] HEMATOLOGY PTT 27.0 22.9 - 03/06 <sup>4</sup>I MH 35.8 /[address] [facility] Data: Heparin Therapeutic Range: 57 - 92 Seconds CARDIAC CK MB Index 0.9 0.0 - 2.5 03/[address] [facility] CARDIAC CK MB 0.9 0.5 - 3.6 03/[address] [facility] CARDIAC Total CK 100 12 - 191 03/[address] [facility] CARDIAC Troponin-I <0.02 0.00 - 03/[address] [facility] URINE AND UA <=1.0 0.1 - 1.0 03/06 STOOL Urobilinogen mg/dL [facility] URINE AND UA Color Ltyellow 03/[address] [facility] URINE AND UA RBC <1 0 - 2 03/06 STOOL [facility] URINE AND UA Sq Epi Occasional Few /LPF 03/06 STOOL /LPF [facility] URINE AND UA Nitrite Negative Negative 03/06 STOOL (03/06/14 9:08 AM) [facility] URINE AND UA Leuk Est Negative Negative 03/06 STOOL (03/06/14 9:08 AM) [facility] URINE AND UA WBC <1 0 - 5 03/06 STOOL [facility] URINE [facility] UA Ketones Negative Negative 03/06 STOOL mg/dL mg/dL [facility] URINE AND UA Blood Negative Negative 03/06 STOOL (03/06/14 9:08 AM) [facility] URINE AND UA Spec Grav 1.030 <=1.030 03/06 STOOL [facility] URINE AND UA pH 6.0 5.0 - 8.0 03/06 STOOL [facility] URINE [facility] UA Turbidity Clear Clear 03/06 STOOL (03/06/14 9:08 AM) [facility] URINE AND UA Glucose 500 mg/dL Negative 03/06 STOOL mg/dL [facility] URINE AND UA Bili Negative Negative 03/06 STOOL *NA* /2013 [facility] (03/06/14 9:08 AM) URINE AND UA Protein Negative Negative 03/06 STOOL mg/dL mg/dL [facility] CARDIAC BNP 5 <=100 03/06 <sup>3</sup>I ENZYMES pg/mL /[address] [facility] Data: Elevated results are in line with increasing severity of
con gestive heart failure. Minor elevations between 100 and 300
may be seen with Myocardial Ischemia, Sodium retaining drugs,
an d compensated/t reated heart failure. CARDIAC Troponin-I <0.02 0.00 - 03/[address] [facility] CARDIAC CK MB 0.8 0.5 - 3.6 03/[address] [facility] CARDIAC Total CK 138 12 - 191 03/[address] [facility] CARDIAC CK MB Index 0.6 0.0 - 2.5 03/[address] [facility] CHEM PANEL B/C Ratio 12 6 - 25 03/06 [facility] CHEM PANEL BUN 7 7 - 22 03/06 [facility] CHEM PANEL A/G Ratio 1.8 0.7 - 1.6 03/06 [facility] CHEM PANEL Globulin 1.9 2.0 - 4.0 03/06 [facility] CHEM PANEL Albumin Lvl 3.5 3.5 - 5.0 03/06 [facility] CHEM PANEL eGFR 127 03/06 <sup>1</sup>R MH esult [facility] Comment: The eGFR is calculated using the CKD-EPI formula. In most young, healthy individuals the eGFR will be >90 mL/min/1.73m2 . The eGFR declines with age. An eGFR of 60-89 may be normal in some populations, particularly the elderly, for whom the CKD-EPI formula has not been extensively validated. Use of the eGFR is not recommended in the following populations:& lt;br/>
I ndividuals with unstable creatinine concentration s, including patients and those with serious co-morbid conditions.<b r/>
Patie nts with extremes in muscle mass or diet.

The data above are obtained from the National Kidney Disease Education Program (NKDEP) which additionally recommends that when the eGFR is used in patients with extremes of body mass index for purposes of drug dosing, the eGFR should be multiplied by the estimated BMI. CHEM PANEL AGAP 13.9 10.0 - 03/[address] [facility] CHEM PANEL Calcium Lvl 7.9 8.5 - 10.5 03/06 [facility] CHEM PANEL CO2 26 24 - 32 03/06 [facility] CHEM PANEL Bili Total 0.5 0.2 - 1.3 03/06 [facility] CHEM PANEL Alk Phos 106 39 - 136 03/06 [facility] CHEM PANEL AST 29 0 - 37 03/06 [facility] CHEM PANEL ALT 33 0 - 65 03/06 [facility] CHEM PANEL Total 5.4 6.4 - 8.4 03/06 [facility] CHEM PANEL Glucose Lvl 392 70 - 99 03/06 <sup>2</sup>I nterpretive [facility] Data: Adult reference range values reflect the clinical guidelines
of the [place] [employer]. CHEM PANEL Creatinine 0.6 0.5 - 1.4 03/[address] [facility] CHEM PANEL Chloride Lvl 99 95 - 109 03/06 [facility] CHEM PANEL Potassium 3.9 3.5 - 5.1 03/[address] [facility] CHEM PANEL Sodium Lvl 135 135 - 145 03/06 [facility] HEMATOLOGY Hgb 12.6 12.0 - 03/[address] [facility] HEMATOLOGY RBC 3.95 4.20 - 03/06 MH 5.40 /2013 [facility] HEMATOLOGY WBC 7.5 3.7 - 10.4 03/06 [facility] HEMATOLOGY Hct 35.3 36.0 - 03/06 MH 48.0 /2013 [facility] HEMATOLOGY RDW 14.5 11.5 - 03/[address] [facility] HEMATOLOGY Platelet 246 133 - 450 03/06 [facility] HEMATOLOGY MPV 10.4 7.4 - 10.4 03/06 [facility] HEMATOLOGY MCHC 35.8 32.0 - 03/06 MH 36.0 /2013 [facility] HEMATOLOGY MCH 32.0 27.0 - 03/06 MH 31.0 /2014 [facility] HEMATOLOGY MCV 89.4 80.0 - 03/06 MH 98.0 /2013 [facility] HEMATOLOGY Basophils # 0.1 0.0 - 0.2 03/06 [facility] HEMATOLOGY Eosinophils 0.1 0.0 - 0.5 03/06 MH # /2014 [facility] HEMATOLOGY Monocytes 6.7 2.0 - 12.0 03/06 [facility] HEMATOLOGY Eosinophils 1.7 0.0 - 4.0 03/06 [facility] HEMATOLOGY Segs 46.8 45.0 - 03/06 MH 75.0 /2013 [facility] HEMATOLOGY Lymphocytes 43.1 20.0 - 03/06 MH 40.0 /2013 [facility] HEMATOLOGY Segs-Bands # 3.5 1.5 - 8.1 03/06 [facility] HEMATOLOGY Lymphocytes 3.2 1.0 - 5.5 03/06 MH # /2014 [facility] HEMATOLOGY Basophils 1.7 0.0 - 1.0 03/06 [facility] HEMATOLOGY Monocytes # 0.5 0.0 - 0.8 03/06 [facility] CHEM PANEL eGFR 103 02/04 <sup>1</sup>R /[address] [facility] Comment: The eGFR is calculated using the CKD-EPI formula. In most young, healthy individuals the eGFR will be >90 mL/min/1.73m2 . The eGFR declines with age. An eGFR of 60-89 may be normal in some populations, particularly the elderly, for whom the CKD-EPI formula has not been extensively validated. Use of the eGFR is not recommended in the following populations:& lt;br/>
I ndividuals with unstable creatinine concentration s, including patients and those with serious co-morbid conditions.<b r/>
Patie nts with extremes in muscle mass or diet.

The data above are obtained from the National Kidney Disease Education Program (NKDEP) which additionally recommends that when the eGFR is used in patients with extremes of body mass index for purposes of drug dosing, the eGFR should be multiplied by the estimated BMI. CHEM PANEL Creatinine 0.8 0.5 - 1.4 02/04 Lvl /2013 [facility] HEMATOLOGY PTT 24.9 22.9 - 02/04 <sup>4</sup>I 35.8 /[address] [facility] Data: Heparin Therapeutic Range: 57 - 92 Seconds HEMATOLOGY Platelet 255 133 - 450 02/04 [facility] URINE AND UA <=1.0 0.1 - 1.0 02/03 STOOL Urobilinogen mg/dL [facility] URINE AND UA Color Ltyellow 02/03 [facility] URINE AND UA Sq Epi None Seen 02/03 STOOL [facility] URINE AND UA Mucus Few /LPF None Seen 02/03 STOOL /LPF [facility] URINE AND UA Hyal Cast 2 0 - 2 02/03 STOOL [facility] URINE AND UA RBC 2 0 - 2 02/03 STOOL [facility] URINE AND UA Ketones Negative Negative 02/03 STOOL mg/dL mg/dL [facility] URINE AND UA Blood Negative Negative 02/03 STOOL (02/03/14 4:20 PM) [facility] URINE AND UA Bili Negative Negative 02/03 STOOL *NA* /2013 [facility] (02/03/14 4:20 PM) URINE AND UA WBC <1 0 - 5 02/03 STOOL [facility] URINE AND UA Nitrite Negative Negative 02/03 STOOL (02/03/14 4:20 PM) [facility] URINE AND UA Leuk Est Negative Negative 02/03 STOOL (02/03/14 4:20 PM) [facility] URINE AND UA Spec Grav 1.014 <=1.030 02/03 [facility] URINE AND UA Turbidity Clear Clear 02/03 STOOL (02/03/14 4:20 PM) [facility] URINE AND UA Glucose 500 mg/dL Negative 02/03 STOOL mg/dL [facility] URINE AND UA Protein Negative Negative 02/03 STOOL mg/dL mg/dL [facility] URINE AND UA pH 5.0 5.0 - 8.0 02/[address] [facility] IMMUNOLOGY CDC HIV 4th Negative Negative 02/03 GEN (02/03/14 3:25 PM) [facility] CARDIAC Troponin-I <0.02 0.00 - 02/[address] [facility] CHEM PANEL Lipase Lvl 93 73 - 393 02/03 [facility] ELECTROLYT Chloride Lvl 94 95 - 109 02/[address] [facility] ELECTROLYT Calcium Lvl 9.4 8.5 - 10.5 02/[address] [facility] ELECTROLYT CO2 28 24 - 32 02/03 [facility] ELECTROLYT BUN 14 7 - 22 02/03 [facility] ELECTROLYT Total 8.0 6.4 - 8.4 02/[address] [facility] ELECTROLYT Creatinine 0.9 0.5 - 1.4 02/[address] [facility] ELECTROLYT Sodium Lvl 132 135 - 145 02/03 [facility] ELECTROLYT Potassium 3.7 3.5 - 5.1 02/[address] [facility] ELECTROLYT Glucose Lvl 336 70 - 99 02/03 <sup>3</sup>I nterpretive [facility] Data: Adult reference range values reflect the clinical guidelines
of the [place] [employer]. ELECTROLYT Albumin Lvl 4.4 3.5 - 5.0 02/03 [facility] ELECTROLYT Bili Total 0.5 0.2 - 1.3 02/03 [facility] ELECTROLYT AST 8 0 - 37 02/03 [facility] ELECTROLYT Alk Phos 97 39 - [address] [facility] ELECTROLYT ALT 22 0 - 65 02/03 [facility] ELECTROLYT eGFR 89 02/03 <sup>2</sup>R esult [facility] Comment: The eGFR is calculated using the CKD-EPI formula. In most young, healthy individuals the eGFR will be >90 mL/min/1.73m2 . The eGFR declines with age. An eGFR of 60-89 may be normal in some populations, particularly the elderly, for whom the CKD-EPI formula has not been extensively validated. Use of the eGFR is not recommended in the following populations:& lt;br/>
I ndividuals with unstable creatinine concentration s, including patients and those with serious co-morbid conditions.<b r/>
Patie nts with extremes in muscle mass or diet.

The data above are obtained from the National Kidney Disease Education Program (NKDEP) which additionally recommends that when the eGFR is used in patients with extremes of body mass index for purposes of drug dosing, the eGFR should be multiplied by the estimated BMI. ELECTROLYT A/G Ratio 1.2 0.7 - 1.6 02/03 [facility] ELECTROLYT B/C Ratio 16 6 - 25 02/03 ES /2013 [facility] ELECTROLYT Globulin 3.6 2.0 - 4.0 02/03 ES /2013 [facility] ELECTROLYT AGAP 13.7 10.0 - 02/03 ES 20.0 /2013 [facility] HEMATOLOGY Platelet 281 133 - 450 02/03 [facility] HEMATOLOGY MPV 10.2 7.4 - 10.[address] [facility] HEMATOLOGY RBC 4.55 4.20 - 02/03 5.40 /2013 [facility] HEMATOLOGY RDW 13.6 11.5 - 02/03 14.5 /2013 [facility] HEMATOLOGY Hct 40.2 36.0 - 02/03 48.0 /2013 [facility] HEMATOLOGY Hgb 13.3 12.0 - 02/03 16.0 /2013 [facility] HEMATOLOGY MCV 88.3 80.0 - 02/03 98.0 /2013 [facility] HEMATOLOGY MCH 29.3 27.0 - 02/03 31.0 /2013 [facility] HEMATOLOGY MCHC 33.2 32.0 - 02/03 36.0 /2013 [facility] HEMATOLOGY WBC 10.6 3.7 - 10.4 02/03 [facility] HEMATOLOGY Eosinophils 0.2 0.0 - 0.5 02/03 # /2013 [facility] HEMATOLOGY Lymphocytes 3.9 1.0 - 5.5 02/03 # /2013 [facility] HEMATOLOGY Basophils # 0.1 0.0 - 0.2 02/03 [facility] HEMATOLOGY Monocytes # 0.5 0.0 - 0.8 02/03 /2013 [facility] HEMATOLOGY Segs 55.5 45.0 - 02/03 75.0 /2013 [facility] HEMATOLOGY Monocytes 5.0 2.0 - 12.0 02/03 [facility] HEMATOLOGY Lymphocytes 36.7 20.0 - 02/03 40.0 /2013 [facility] HEMATOLOGY Basophils 1.1 0.0 - 1.0 02/03 [facility] HEMATOLOGY Segs-Bands # 5.9 1.5 - 8.1 02/03 [facility] HEMATOLOGY Eosinophils 1.7 0.0 - 4.0 02/03 [facility] CHEM PANEL BUN 6 7 - 22 11/30 [facility] CHEM PANEL Sodium Lvl 140 135 - [address] [facility] CHEM PANEL Potassium 3.8 3.5 - 5.1 11/30 Lvl /2013 [facility] CHEM PANEL Chloride Lvl 103 95 - 109 11/30 [facility] CHEM PANEL CO2 29 24 - 32 11/30 [facility] CHEM PANEL Calcium Lvl 8.9 8.5 - 10.5 11/30 [facility] CHEM PANEL eGFR 121 11/30 <sup>2</sup>R [facility] Comment: The eGFR is calculated using the CKD-EPI formula. In most young, healthy individuals the eGFR will be >90 mL/min/1.73m2 . The eGFR declines with age. An eGFR of 60-89 may be normal in some populations, particularly the elderly, for whom the CKD-EPI formula has not been extensively validated. Use of the eGFR is not recommended in the following populations:& lt;br/>
I ndividuals with unstable creatinine concentration s, including patients and those with serious co-morbid conditions.<b r/>
Patie nts with extremes in muscle mass or diet.

The data above are obtained from the National Kidney Disease Education Program (NKDEP) which additionally recommends that when the eGFR is used in patients with extremes of body mass index for purposes of drug dosing, the eGFR should be multiplied by the estimated BMI. CHEM PANEL AGAP 11.8 10.0 - 11/[address] [facility] CHEM PANEL Creatinine 0.7 0.5 - 1.4 11/30 Lvl /2013 [facility] CHEM PANEL Glucose Lvl 169 70 - 99 11/30 <sup>5</sup>I nterpretive [facility] Data: Adult reference range values reflect the clinical guidelines
of the [place] [employer]. CHEM PANEL BUN 7 7 - 22 11/29 [facility] CHEM PANEL eGFR 103 11/29 <sup>3</sup>R [facility] Comment: The eGFR is calculated using the CKD-EPI formula. In most young, healthy individuals the eGFR will be >90 mL/min/1.73m2 . The eGFR declines with age. An eGFR of 60-89 may be normal in some populations, particularly the elderly, for whom the CKD-EPI formula has not been extensively validated. Use of the eGFR is not recommended in the following populations:& lt;br/>
I ndividuals with unstable creatinine concentration s, including patients and those with serious co-morbid conditions.<b r/>
Patie nts with extremes in muscle mass or diet.

The data above are obtained from the National Kidney Disease Education Program (NKDEP) which additionally recommends that when the eGFR is used in patients with extremes of body mass index for purposes of drug dosing, the eGFR should be multiplied by the estimated BMI. CHEM PANEL AGAP 14.0 10.0 - 11/[address] [facility] CHEM PANEL Calcium Lvl 8.6 8.5 - 10.5 11/29 [facility] CHEM PANEL Chloride Lvl 102 95 - 109 11/29 [facility] CHEM PANEL CO2 27 24 - 32 11/29 [facility] CHEM PANEL Potassium 4.0 3.5 - 5.1 11/29 [facility] CHEM PANEL Sodium Lvl 139 135 - 145 11/29 [facility] CHEM PANEL Creatinine 0.8 0.5 - 1.4 11/29 [facility] CHEM PANEL Glucose Lvl 185 70 - 99 11/29 <sup>6</sup>I nterpretive [facility] Data: Adult reference range values reflect the clinical guidelines
of the [place] [employer]. CHEM PANEL eGFR 230 11/28 <sup>4</sup>R esult [facility] Comment: The eGFR is calculated using the CKD-EPI formula. In most young, healthy individuals the eGFR will be >90 mL/min/1.73m2 . The eGFR declines with age. An eGFR of 60-89 may be normal in some populations, particularly the elderly, for whom the CKD-EPI formula has not been extensively validated. Use of the eGFR is not recommended in the following populations:& lt;br/>
I ndividuals with unstable creatinine concentration s, including patients and those with serious co-morbid conditions.<b r/>
Patie nts with extremes in muscle mass or diet.

The data above are obtained from the National Kidney Disease Education Program (NKDEP) which additionally recommends that when the eGFR is used in patients with extremes of body mass index for purposes of drug dosing, the eGFR should be multiplied by the estimated BMI. CHEM PANEL AGAP 20.2 10.0 - 11/28 [facility] CHEM PANEL Calcium Lvl 8.3 8.5 - 10.[address] [facility] CHEM PANEL Sodium Lvl 138 135 - [address] [facility] CHEM PANEL Potassium 4.2 3.5 - 5.1 11/[address] [facility] CHEM PANEL Chloride Lvl 104 95 - 109 11/28 [facility] CHEM PANEL CO2 18 24 - [address] [facility] CHEM PANEL BUN 8 7 - 22 11/28 [facility] CHEM PANEL Creatinine 0.1 0.5 - 1.4 11/[address] [facility] CHEM PANEL Glucose Lvl 262 70 - 99 11/28 <sup>7</sup>I nterpretive [facility] Data: Adult reference range values reflect the clinical guidelines
of the [place] [employer]. HEMATOLOGY MPV 10.0 7.4 - 10.4 11/28 [facility] HEMATOLOGY Hgb 11.7 12.0 - 08 16.0 /2013 [facility] HEMATOLOGY Hct 34.2 36.0 - 08 48.0 /2013 [facility] HEMATOLOGY MCV 88.7 81.0 - 08 99.0 /2013 [facility] HEMATOLOGY Platelet 248 133 - 450 08 /2013 [facility] HEMATOLOGY MCH 30.2 27.0 - 08 31.0 /2013 [facility] HEMATOLOGY MCHC 34.0 32.0 - 08 36.0 /2013 [facility] HEMATOLOGY RDW 12.4 11.5 - 08 14.5 /2013 [facility] HEMATOLOGY WBC 9.9 3.7 - 10.4 08 /2013 [facility] HEMATOLOGY RBC 3.86 4.20 - 08 5.40 /2014 [facility] HEMATOLOGY Basophils 0.7 0.0 - 1.0 08 /2013 [facility] HEMATOLOGY Segs-Bands # 6.1 1.5 - 8.1 / /2013 [facility] HEMATOLOGY Lymphocytes 2.8 1.0 - 5.5 08/07 MH # /2013 [facility] HEMATOLOGY Monocytes # 0.7 0.0 - 0.8 08/ /2013 [facility] HEMATOLOGY Eosinophils 0.2 0.0 - 0.5 08/07 MH # /2013 [facility] HEMATOLOGY Basophils # 0.1 0.0 - 0.2 08/ /2013 [facility] HEMATOLOGY Monocytes 6.7 2.0 - 12.0 11/28 /2013 [facility] HEMATOLOGY Eosinophils 2.5 0.0 - 4.0 08 MH /2013 [facility] HEMATOLOGY Lymphocytes 28.6 20.0 - [address] [facility] HEMATOLOGY Segs 61.5 45.0 - 11/28 75.0 /2013 [facility] BLOOD BANK ABO/Rh O POS 11/27 RESULTS /2013 [facility] BLOOD BANK Antibody Negative 11/27 RESULTS Scrn (11/27/13 2:24 PM) [facility] BLOOD BANK Platelet Product available 1 11/27 <sup>1</sup>R RESULTS product (11/27/13 12:17 PM) /[address] [facility] Comment: 11/27/2013 15:14 [id number]
CALLED OR 11/27/2013 15:14 SB. CARDIAC CK MB Index <0.4 0.0 - 2.5 11/[address] [facility] CARDIAC Troponin-I <0.02 0.00 - 11/[address] [facility] CARDIAC CK MB <0.5 0.5 - 3.6 11/[address] [facility] CARDIAC Total CK 132 12 - 191 11/[address] [facility] LIPIDS LDL Direct 91 <=99 mg/dL 11/27 MH /2013 [facility] SPECIAL Hgb A1C 11.4 <=5.6 % 11/[address] [facility] CARDIAC Troponin-I <0.02 0.00 - [address] [facility] CARDIAC CK MB 0.6 0.5 - 3.6 11/27 ENZYMES /2013 [facility] CARDIAC Total CK 145 12 - 191 11/[address] [facility] CARDIAC CK MB Index 0.4 0.0 - 2.5 11/[address] [facility] CARDIAC Total CK 164 12 - 191 11/26 ENZYMES /2013 [facility] CARDIAC Troponin-I <0.02 0.00 - [address] [facility] CARDIAC CK MB <0.5 0.5 - 3.6 11/[address] [facility] CARDIAC CK MB Index <0.3 0.0 - 2.5 11/26 ENZYMES /2013 [facility] LIPIDS VLDL See Note 9 11/26 <sup>9</sup>R *NA* /[address] [facility] (11/26/13 10:48 AM) Comment: VLDL - Cholesterol level cannot be accurately calculated due to very high triglycerides (>400 mg/dL). LIPIDS CHD Risk 8.20 3.90 - 11/26 5.80 /2013 [facility] LIPIDS HDL 25 >=61 mg/dL 11/26 [facility] LIPIDS Trig 772 <=149 11/26 mg/dL /2013 [facility] LIPIDS Chol 205 <=199 11/26 mg/dL /2013 [facility] LIPIDS LDL See Note <=99 mg/dL 11/26 <sup>8</sup>R (Calculated) mg/dL /[address] [facility] Comment: LDL cholesterol cannot be calculated due to very high triglycerides (>400 mg/dL). Recommend Direct LDL if clinically indicated. CHEM PANEL AST 24 0 - 37 11/26 [facility] CHEM PANEL Bili Total 0.4 0.2 - 1.3 11/26 [facility] CHEM PANEL Alk Phos 111 39 - 136 11/26 [facility] CHEM PANEL ALT 35 0 - 65 11/26 [facility] CHEM PANEL Albumin Lvl 3.8 3.5 - 5.0 11/26 [facility] CHEM PANEL Total 7.6 6.4 - 8.4 11/[address] [facility] CHEM PANEL Globulin 3.8 2.0 - 4.0 11/26 [facility] CHEM PANEL A/G Ratio 1.0 0.7 - 1.6 11/26 [facility] CHEM PANEL B/C Ratio 10 6 - 25 11/26 [facility] HEMATOLOGY INR 0.94 0.85 - 11/26 <sup>10</sup> 1.17 /[address] [facility] Data: RECOMMENDED RANGES FOR PROTIME INR:
2.0-3.0 for most medical and surgical thromboemboli c states.
2.5-3.5 for artificial heart valves and recurrent embolism.<br/ >
INR SHOULD BE USED ONLY FOR PATIENTS ON STABLE ANTICOAGULANT THERAPY. HEMATOLOGY PT 12.5 12.0 - 11/26 14.7 /2013 [facility] HEMATOLOGY PTT 26.5 22.9 - 11/26 <sup>11</sup> 35.8 /[address] [facility] Data: Heparin Therapeutic Range: 57 - 92 Seconds HEMATOLOGY MCHC 34.4 32.0 - 11/26 36.0 /2014 [facility] HEMATOLOGY RDW 12.5 11.5 - 11/26 14.5 /2014 [facility] HEMATOLOGY Platelet 275 133 - 450 08 /2013 [facility] HEMATOLOGY MPV 9.6 7.4 - 10.4 08 /2013 [facility] HEMATOLOGY RBC 4.15 4.20 - 08 5.40 /2013 [facility] HEMATOLOGY Hgb 12.6 12.0 - 11/26 16.0 /2013 [facility] HEMATOLOGY Hct 36.5 36.0 - 08 MH 48.0 /2013 [facility] HEMATOLOGY MCV 87.9 81.0 - 08 99.0 /2013 [facility] HEMATOLOGY MCH 30.3 27.0 - 08 MH 31.0 /2013 [facility] HEMATOLOGY WBC 7.3 3.7 - 10.4 11/26 [facility] HEMATOLOGY Basophils # 0.1 0.0 - 0.2 11/26 [facility] HEMATOLOGY Segs-Bands # 4.0 1.5 - 8.1 11/26 [facility] HEMATOLOGY Lymphocytes 2.6 1.0 - 5.5 11/26 # /2013 [facility] HEMATOLOGY Monocytes # 0.5 0.0 - 0.8 11/26 [facility] HEMATOLOGY Eosinophils 0.2 0.0 - 0.5 11/26 # /2013 [facility] HEMATOLOGY Basophils 1.2 0.0 - 1.0 11/26 [facility] HEMATOLOGY Segs 54.5 45.0 - 08 75.0 /2013 [facility] HEMATOLOGY Lymphocytes 35.3 20.0 - [address] [facility] HEMATOLOGY Monocytes 6.6 2.0 - 12.0 11/26 [facility] HEMATOLOGY Eosinophils 2.4 0.0 - 4.0 11/26 [facility] Microbiolo Culture: 12/[address] [facility] CHEMISTRY eGFR 104 12/05 NA <sup>1</sup>R esult [facility] Comment: The eGFR is calculated using the CKD-EPI formula. In most young, healthy individuals the eGFR will be >90 mL/min/1.73m2 . The eGFR declines with age. An eGFR of 60-89 may be normal in some populations, particularly the elderly, for whom the CKD-EPI formula has not been extensively validated. Use of the eGFR is not recommended in the following populations:& lt;br/>
I ndividuals with unstable creatinine concentration s, including patients and those with serious co-morbid conditions.<b r/>
Patie nts with extremes in muscle mass or diet.

The data above are obtained from the National Kidney Disease Education Program (NKDEP) which additionally recommends that when the eGFR is used in patients with extremes of body mass index for purposes of drug dosing, the eGFR should be multiplied by the estimated BMI. CHEMISTRY AST 43 0 - 37 / HI [facility] CHEMISTRY Bili Total <0.1 0.2 - 1.3 12/[address] [facility] CHEMISTRY Alk Phos 70 39 - 136 / Normal [facility] CHEMISTRY ALT 41 0 - 65 / Normal [facility] CHEMISTRY Albumin Lvl 3.7 3.5 - 5.0 12/[address] [facility] CHEMISTRY CO2 25 24 - 32 12/[address] [facility] CHEMISTRY Total 7.4 6.4 - 8.4 12/[address] [facility] CHEMISTRY Calcium Lvl 8.4 8.5 - 10.5 12/[address] [facility] CHEMISTRY Creatinine 0.8 0.5 - 1.4 12/[address] [facility] CHEMISTRY BUN 7 7 - 22 12/[address] [facility] CHEMISTRY Glucose Lvl 209 70 - 99 12/05 HI <sup>2</sup>I nterpretive [facility] Data: Adult reference range values reflect the clinical guidelines
of the [place] [employer]. CHEMISTRY Sodium Lvl 141 135 - 145 12/[address] [facility] CHEMISTRY Potassium 3.9 3.5 - 5.1 12/[address] [facility] CHEMISTRY Chloride Lvl 107 95 - 109 12/[address] [facility] CHEMISTRY B/C Ratio 9 6 - 25 12/[address] [facility] CHEMISTRY AGAP 12.9 10.0 - [address] [facility] CHEMISTRY A/G Ratio 1.0 0.7 - 1.6 12/[address] [facility] CHEMISTRY Globulin 3.7 2.0 - 4.0 12/[address] [facility] HEMATOLOGY PT 12.5 12.0 - [address] [facility] HEMATOLOGY PTT 25.8 22.9 - 08 Normal <sup>4</sup>I 35.8 /[address] [facility] Data: Heparin Therapeutic Range: 57 - 92 Seconds HEMATOLOGY INR 0.91 0.85 - 08 Normal <sup>3</sup>I MH 1.17 /[address] [facility] Data: RECOMMENDED RANGES FOR PROTIME INR:
2.0-3.0 for most medical and surgical thromboemboli c states.
2.5-3.5 for artificial heart valves and recurrent embolism.<br/ >
INR SHOULD BE USED ONLY FOR PATIENTS ON STABLE ANTICOAGULANT THERAPY. HEMATOLOGY Platelet 244 133 - 450 / Normal /2012 [facility] HEMATOLOGY RDW 13.2 11.5 - 08 Normal MH 14.5 /2012 [facility] HEMATOLOGY MPV 10.1 7.4 - 10.4 / Normal /2012 [facility] HEMATOLOGY MCHC 32.5 32.0 - 12/05 Normal MH 36.0 /2012 [facility] HEMATOLOGY MCV 93.4 81.0 - 12/05 Normal MH 99.0 /2012 [facility] HEMATOLOGY MCH 30.4 27.0 - 12/05 Normal MH 31.0 /2012 [facility] HEMATOLOGY WBC 9.8 3.7 - 10.4 / Normal /2012 [facility] HEMATOLOGY RBC 3.90 4.20 - 12/05 LOW MH 5.40 /2012 [facility] HEMATOLOGY Hct 36.4 36.0 - 12/05 Normal MH 48.0 /2012 [facility] HEMATOLOGY Hgb 11.8 12.0 - 12/05 LOW MH 16.0 /2012 [facility] HEMATOLOGY Basophils # 0.1 0.0 - 0.2 / Normal /2012 [facility] HEMATOLOGY Eosinophils 0.2 0.0 - 0.5 / Normal MH # /2012 [facility] HEMATOLOGY Monocytes # 0.6 0.0 - 0.8 / Normal /2012 [facility] HEMATOLOGY Basophils 1.1 0.0 - 1.0 / HI MH /2012 [facility] HEMATOLOGY Segs-Bands # 5.5 1.5 - 8.1 / Normal /2012 [facility] HEMATOLOGY Lymphocytes 3.4 1.0 - 5.5 / Normal MH # /2012 [facility] HEMATOLOGY Monocytes 5.8 2.0 - 12.0 / Normal /2012 [facility] HEMATOLOGY Eosinophils 2.4 0.0 - 4.0 / Normal /2012 [facility] HEMATOLOGY Segs 56.3 45.0 - 08 Normal MH 75.0 /2012 [facility] HEMATOLOGY Lymphocytes 34.4 20.0 - 08 Normal 40.0 /2013 [facility] Pathology Reports No Data Provided for This Section Diagnostic Reports Report Value Date Source Chest 1view DX Patient Name: DANIA JANE 07/09/2018 [facility] : 1970; Age: 48 years Female MR: [id number] Study: Chest 1view DX Order Time: 07/09/2018 15:14 CDT CLINICAL INDICATION: - weakness COMPARISON: Chest radiograph on 05/16/2018 FINDINGS: Lines: None. Lungs: The lungs are grossly clear. Mediastinum: The cardiac silhouette is minimally enlarged. Midline trachea. Bones and soft tissues: No acute abnormalities. IMPRESSION: No acute cardiopulmonary abnormalities. SL: [id number] Brain wo contrast CT Patient Name: DANIA JANE 07/09/2018 [facility] : 1970; Age: 48 years y/o Female MR: [id number] Study: Brain wo contrast CT 07/09/2018 15:14 CDT Ordering Physician: Hilda Ruiz Clinical Indication: - left sided numbness started at 8am; Comparison: 05/16/2018 TECHNIQUE: CT images were obtained from the foramen magnum to the vertex without the use of intravenous contrast on a multidetector CT. Coronal and sagittal reconstructions were obtained. CT imaging performed at this location utilizes radiation dose optimization techniques which include one or more of the following: -Automated exposure control -Adjustment of the mA and/or kV according to patient size -Use of iterative reconstruction technique CT Radiation Dose DLP 982 mGy-cm FINDINGS: There is no evidence of acute intracranial hemorrhage, subacute territorial infarct, mass effect, midline shift, extra-axial fluid collection, hydrocephalus or other acute abnormalities. Small old infarcts seen in the right lenticulocapsular region and left caudate head. The wilson-white interfaces are maintained. The ventricles and basilar cisterns are unremarkable. The posterior fossa is unremarkable.. The calvarium, paranasal sinuses and mastoids are unremarkable. IMPRESSION: No CT evidence of acute intracranial process. Small old infarcts in the right lenticulocapsular region and left caudate head. If there is further concern for intracranial pathology or acute stroke, further assessment with an MRI of the brain should be considered. SL: [id number] Brain wo contrast CT EXAM: CT BRAIN WITHOUT CONTRAST 05/16/2018 [facility] DATE: 05/16/2018 19:04 POWERHOUSE MECHANIC HELPER INDICATION: Left-sided numbness. COMPARISON: 03/31/2018. TECHNIQUE: Noncontrast axial imaging of the brain was acquired from the vertex to the skull base. Reformatted coronal and sagittal images were provided for review. CT radiation dose DLP: 982.82 mGy-cm. FINDINGS: No acute intracranial hemorrhage, midline shift, or mass effect is identified. Old lacunar infarcts are noted within the right thalamus and internal capsule. The wilson-white matter differentiation is pre served. The ventricles and extra-axial spaces are prominent, compatible with mild diffuse parenchymal volume loss. Mild chronic microangiopathic changes are noted. Bilateral intraocular lens replacements are identified. The paranasal sinuses and mastoid air cells are clear. The calvarium and skull base are intact. There is atherosclerotic calcification of the carotid siphons. IMPRESSION: 1. No acute intracranial hemorrhage or mass effect. 2. Old lacunar infarcts within the right thalamus and internal capsule. SL: [id number] Spine cervical wo EXAM: CT CERVICAL SPINE WITHOUT CONTRAST 05/16/[address] [facility] contrast CT (ER) DATE: 05/16/2018 19:04 POWERHOUSE MECHANIC HELPER INDICATION: Neck pain. Trauma. COMPARISON: None TECHNIQUE: Volumetric acquisition of the cervical spine was obtained without contrast. Axial, coronal, and sagittal reconstructions were provided for review. CT Radiation Dose DLP 884.64 mGy-cm. FINDINGS: No abnormalities in sagittal alignment are identified. The vertebral body heights are maintained. The craniocervical junction is within normal limits. The prevertebral and paraspinal soft tissues are normal. There are postsurgical changes related to interbody fusion at C4-C5, similar in appearance to prior examination. No periarticular lucency or frac ture is noted. At C4-C5, there is moderate left and mild right neural foraminal stenosis without spinal canal stenosis. At C5-C6, there is severe left and moderate right neural foraminal stenosis as well as mild spinal canal stenosis. The lung apices are clear. The thyroid gland is unremarkable. IMPRESSION: No acute fracture or malalignment of the cervical spine. SL: [id number] Chest 1view DX Clinical Indication: - cp 05/16/2018 [facility] Comparison: 03/19/2018 FINDINGS: Single AP view of the chest is submitted for interpretation. There is mild pulmonary vascular congestion. The lungs are otherwise clear and there are no effusions. There is no visible pneumothorax. Cardiomediastinal contours are stable. No gross bony normalities are identified. IMPRESSION: 1. Mild pulmonary vascular congestion. SL: [id number] Brain wo contrast CT Clinical Indication: Headache and left-sided body weakness. Worsening over 2 days. 03/31/2018 [facility] Comparison: CT head 03/19/2018. TECHNIQUE: CT images were obtained from the foramen magnum to the vertex without the use of intravenous contrast on a multidetector CT. Coronal and sagittal reconstructions were obtained. CT imaging performed at this location utilizes radiation dose optimization techniques which include one or more of the following: -Automated exposure control -Adjustment of the mA and/or kV according to patient size -Use of iterative reconstruction technique CT Radiation Dose DLP 859.97 mGy-cm FINDINGS: BRAIN PARENCHYMA: Again seen is a chronic lacunar infarct within the right thalamus. No CT evidence of acute territorial infarction is seen. There are mild nonspecific periventricular white matter there is a low-attenuation, which likely represent mild chronic microvascular ischemic changes. There is no mass effect, midline shift or edema. There are no intra-axial or extra-axial fluid collections, int raventricular or intraparenchymal hemorrhage. Atherosclerotic calcifications are seen of the cavernous segments of the internal carotid arteries. VENTRICLES: The ventricles are appropriate for the patient's stated age. There is no evidence of hydrocephalus. The basilar cisterns are within normal limits. ORBITS, MASTOIDS AND PARANASAL SINUSES: Mild bilateral ethmoid sinus mucosal thickening is identified. There is evidence of prior lens surgery within both globes. The mastoid air cells are clear. SKULL: There are no osseous abnormalities. If there is further concern for intracranial pathology or acute stroke, MRI of the brain may be performed for complete assessment. IMPRESSION: No acute intracranial hemorrhage or mass effect. Stable chronic lacunar infarct within the right thalamus. No CT evidence of acute territorial infarction. Mild chronic microvascular ischemic changes. SL: [id number] Brain wo contrast CT EXAM: CT BRAIN WITHOUT CONTRAST 03/19/2018 [facility] DATE: 03/19/2018 8:02 PM POWERHOUSE MECHANIC HELPER INDICATION: Headache. COMPARISON: 03/12/2018. TECHNIQUE: Noncontrast axial imaging of the brain was acquired from the vertex to the skull base. Reformatted coronal and sagittal images were provided for review. CT radiation dose DLP: 902.20 mGy-cm. FINDINGS: No acute intracranial hemorrhage, midline shift, or mass effect is identified. An old lacunar infarct is noted within the right thalamus. The wilson- white matter differentiation is preserved. The ventricl es and extra-axial spaces are within normal limits, without evidence for hydrocephalus. Mild chronic microangiopathic changes are noted. The orbits, paranasal sinuses, and mastoid air cells are unremarkable. The calvarium and skull base are intact. There is atherosclerotic calcification of the carotid siphons. IMPRESSION: 1. No acute intracranial hemorrhage or mass effect. 2. Redemonstration of an old lacunar infarct within the right thalamus. SL: [id number] Chest 2 views DX EXAM: XR CHEST 2 VIEW 03/19/2018 [facility] DATE: 03/19/2018 5:07 PM POWERHOUSE MECHANIC HELPER INDICATION: Chest pain. COMPARISON: 03/09/2018. TECHNIQUE: PA and lateral views of the chest were obtained. FINDINGS: No focal consolidation or pneumothorax is identified. The cardiomediastinal silhouette is within normal limits. The costophrenic recesses are sharp and without effusion. No acute osseous abnormality is noted. IMPRESSION: No acute cardiopulmonary abnormality. SL: [id number] Brain wo contrast CT Clinical Indication: - Headache, recent CVA. 2017 [facility] Comparison: CT dated 03/10/2018 TECHNIQUE: CT images were obtained from the foramen magnum to the vertex without the use of intravenous contrast on a multidetector CT. CT imaging was performed with exposure control parameters to reduc e radiation dose. Coronal and sagittal reconstructions were obtained. CT imaging performed at this location utilizes radiation dose optimization techniques which include one or more of the following: -Automated exposure control -Adjustment of the mA and/or kV according to patient size -Use of iterative reconstruction technique CT Radiation Dose DLP 902.20 mGy-cm FINDINGS: BRAIN PARENCHYMA: The brain parenchyma is normal with normal calhoun and white interfaces. There is mild microvascular white matter disease.. No focal mass lesions on this noncontrast head CT. No mass eff ect, midline shift or edema. There are no intra-axial or extra-axial fluid collections, intraventricular or intraparenchymal hemorrhage. Old lacunar infarcts in the left basal ganglia and anterior limb of right internal capsule. Late subacute/old infarct in the right thalamus. VENTRICLES: The lateral ventricles, third and fourth ventricles appear unremarkable. The basilar cisterns are normal. ORBITS, MASTOIDS AND PARANASAL SINUSES: The visualized orbits are unremarkable. The visualized paranasal sinuses are unremarkable. The mastoid air cells are clear. SKULL: There are no osseous abnormalities. If there is further concern for intracranial pathology or acute stroke, MRI of the brain may be performed for complete assessment. IMPRESSION: Late subacute/old infarct in the right thalamus. No acute intracranial hemorrhage or mass effect. SL: [id number] Brain/Neck CTA EXAM: CTA BRAIN 03/11/2018 [facility] EXAM: CTA NECK DATE: 03/11/2018 2:43 PM POWERHOUSE MECHANIC HELPER INDICATION: - cva stroke. Left facial numbness. COMPARISON: CT head without contrast 03/10/2018 TECHNIQUE: Rapid acquisition spiral CT images of the brain and neck were obtained between the aortic arch and the cranial vertex during intravenous infusion of iodinated contrast for the purposes of CT angiography . 3-D CT angiographic images are created using MIP technique at the acquisition workstation. The source images are also presented for interpretation. IV contrast: [address] imaging performed at this location utilizes radiation dose optimization techniques which include one or more of the following: -Automated exposure control -Adjustment of the mA and/or kV according to patient size -Use of iterative reconstruction technique CT Radiation Dose DLP 1267.74 mGy-cm FINDINGS: NECK CTA: Aortic arch: Limited evaluation of the aortic arch is unremarkable. The origins of the great vessels arising from the arch are patent. No origin stenosis identified. Carotid arteries: The common carotid arteries are widely patent. No hemodynamically significant stenosis demonstrated. Both cervical internal carotid arteries are widely patent.. No hemodynamically sign ificant stenosis of the carotid bifurcations or internal carotid arteries is present by NASCET criteria. Vertebral arteries: Both vertebral arteries appear patent without focal stenosis or occlusion. There is a diffusely enlarged thyroid gland which is nonspecific in nature. This could reflect thyroid goiter.. BRAIN CTA: The petrous, cavernous ophthalmic and supraclinoid portions of the internal carotid arteries are widely patent. There is an anterior communicating artery present. Both proximal ACAs are widely patent. B oth proximal MCAs are widely patent. Both proximal business process specialist are widely patent. The basilar artery is unremarkable. There is a codominant vertebral system. No vascular malformation evident. The visualized dural venous sinuses appear patent to extent visualized. IMPRESSION: 1. Unremarkable CTA head and neck. No large vessel occlusion or hemodynamically significant stenosis demonstrated. 2. Diffusely enlarged thyroid gland, nonspecific. This likely reflects thyroid goiter. Correlation with thyroid function tests recommended. (All qualitative and quantitative assessments of carotid bifurcation and proximal internal carotid artery stenosis are made referencing the distal internal carotid artery {NASCET criteria}.) Chest/Abd/Pelvis CTA CTA CHEST ABDOMEN PELVIS: 03/10/2018 [facility] HISTORY: Hypertension with chest pain and back pain. TECHNIQUE: Multislice axial acquisitions of the abdomen and pelvis were obtained during IV contrast bolus. Sagittal and coronal MIP tomograms, and 3-D volume rendered reconstructions were also done. DLP 1709.42 mGycm. ANGIOGRAPHIC FINDINGS: The thoracic and abdominal aorta are normal in caliber without dissection, ulceration or aneurysm. No significant atherosclerotic changes are seen, other than a small calcified pl aque at the origin of the FLAVIO and minimal calcified plaque in the internal iliac trunks. There is no significant aortic or iliac stenosis. Patent right and left coronary arteries are demonstrated which are otherwise not well evaluated. The left common carotid artery arises from the brachiocephalic artery. The supra aortic trunks are tortuo us without other significant disease. The celiac, SMA, and renal arteries are patent without significant stenoses. Small accessory arteries to the upper and lower poles of the right kidney and lower harman e of the left kidney are noted. There is ostial stenosis involving the FLAVIO, which is otherwise patent. There is no evidence of pulmonary embolus. The central pulmonary arteries are borderline dilated. The main pulmonary artery measures 3.1 cm in diameter. NONANGIOGRAPHIC FINDINGS: There are no significant pulmonary or pleural abnormalities. There are a couple of borderline sized lymph nodes in the upper right paratracheal region without other significant mediastinal or hilar lymph node enlargement. The liver, gallbladder, spleen , pancreas, kidneys and adrenal glands show no significant abnormalities. There are no significant gastrointestinal tract abno rmalities. The uterus is absent. The urinary bladder is unremarkable. There are no significant osseous abnormalities. IMPRESSION: 1. No evidence of aortic dissection or other significant arterial pathology in the chest, abdomen or pelvis. 2. Borderline dilated pulmonary arteries. Correlate with echocardiography. There is no evidence of pulmonary embolus. JANAE [id number] Brain wo contrast CT Patient Name: DANIA JANE 03/10/2018 [facility] : 1970. Age: 47 years. Gender: Female. MR: [id number]. Location: [facility]. Provider: Jose Prado MD. EXAM: Brain wo contrast CT. 03/10/2018 9:37 AM POWERHOUSE MECHANIC HELPER PROVIDED CLINICAL HISTORY: Left facial numbness. TECHNIQUE: Contiguous axial images from the skull base to the vertex without intravenous contrast. Coronal and sagittal reformats. EXPOSURE: Total exam DLP is 982.82 mGy-cm. COMPARISON: CT Brain performed February 03, 2014. FINDINGS: LIMITATIONS: Irregular parenchymal attenuation within the inadequately- evaluated caudal brainstem can be attributed to beam-hardening streak artifact from the adjacent petrous bones. This common CT rocio fact could obscure subtle underlying abnormality. MR may be helpful for further assessment if clinically appropriate. BRAIN: See above. -- Subtle vague hypodensity within the right thalamocapsular region, possibly acute ischemia, but not confirmed with certainty within exam limits. This finding was not present on the comparison exam. Otherwise, no definite CT evidence of diminished wilson-white differentiation , sulcal effacement, or other findings suggestive of acute transcortical infarct. No asymmetrically hyperdense intracranial a rtery. Please note that vessel patency is not adequately evaluated without dedicated contrast enhanced angiography. -- Mild diffuse supratentorial subcortical, periventricular, and deep white matter hypoattenuation, most consistent with chronic microangiopathic ischemic disease, which can obscure subtle non-hemorrhagic ischemic changes. -- No intracranial hemorrhage or other fluid collection. No intracranial mass. Age-consistent brain parenchymal volume. Atherosclerotic calcifications in the intracranial carotid arteries. VENTRICLES / CISTERNS / SHIFT: No hydrocephalus. No significant effacement of the basal cisterns or foramen magnum. No significant midline shift. BONES / SCALP: No significant extracranial soft tissue abnormality. No acute depressed fracture of the calvarium or skull base. No aggressive bone lesions. IMAGED SINUSES / MASTOIDS / MISC: No significant sinus mucosal thickening. No significant paranasal sinus fluid. No significant fluid in the imaged mastoid air cells. IMPRESSION: Suspect acute right thalamocapsular lacunar infarct, not confirmed with certainty within exam limits. RECOMMEND correlation with MR (including diffusion weighted sequences) if clinically appropriate. No intracranial mass or hemorrhage. On 03/10/2018 1:25 PM [employer]OWERHOUSE MECH[employer]IC HELPER, I discussed the garcía findings by telephone with the patient's unit charge nurse, Yakov Cortez RN, who confirmed read-back and agreed to relay the findings to the appropriate attending clinician. SL: [id number] Chest 2 views DX XR CHEST 2 VIEWS 03/09/2018 [facility] HISTORY: - Chest pain COMPARISON: CXR 02/03/2018 FINDINGS: The lungs are clear. The heart and vascular markings are normal. No pleural abnormality. The bones are intact. Loop recorder device noted. IMPRESSION: No active process. SL: [id number] Chest 1view DX Clinical Indication: - cp 02/03/2018 [facility] Comparison: Comparison is made to chest radiograph examination dated 2017. FINDINGS: The cardiomediastinal silhouette is within normal limits for appearance. A recorder device is identified over the cardiac silhouette to the left of the midline. No focal pulmonary consolidation, pneumothorax or pleural effusion. Midline trachea. IMPRESSION: 1. No acute cardiopulmonary process. SL: [id number] Chest 1view DX Clinical Indication: - chest pain; 01/06/2018 [facility] Comparison: 10/15/2017 Technique: X-ray chest frontal projection FINDINGS: There is no consolidation, pleural effusion or pneumothorax. The heart is normal in size. The mediastinum and shelia are unremarkable. The visualized bones and soft tissues are within normal limits. IMPRESSION: No chest radiographic evidence of acute cardiopulmonary disease. SL: SOULEYMANE Chest 1view DX EXAM: Chest x-ray one view (frontal) 10/15/2017 [facility] HISTORY: - chest pain. COMPARISON: 09/20/2017 FINDINGS: Mediastinum: The cardiomediastinal contours are unremarkable. Lungs and pleura: No focal consolidation, pleural effusion or pneumothorax. The pulmonary vascularity is normal. No acute osseous displaced abnormality is noted. Cervical fusion screws are redemonstrated. IMPRESSION: No radiographic evidence of an acute cardiopulmonary process. SL: [id number] Spine thoracic Review of the study shows a small right lateral disc protrusion at T9-T10 indenting the thecal sac on the right. This may be associated with a T9 radiculopathy on the right 09/21/2017 [facility] Medical myelogram CT EXAM: FLUOROSCOPY-GUIDED LUMBAR PUNCTURE FOR CT MYELOGRAM Center EXAM: CT MYELOGRAM CERVICAL SPINE EXAM: CT MYELOGRAM THORACIC SPINE EXAM: CT MYELOGRAM LUMBAR SPINE DATE: 09/21/2017 at 1536 hours INDICATION: Sudden onset of low back pain 2 weeks ago radiating down both legs. Decreased sensation in the pelvic area and weakness on the left for the past 2 weeks. Bladder and bowel incontinence durin g this time. She is unable to tell or feel when she needs to go. COMPARISON: Lumbar CT myelogram of 02/04/2014. MRI of the entire spine of . X-rays and CT lumbar spine of 09/20/2017. Preoperative cervical spine CT of 11/27/2013. PROCEDURE: An interlaminar lumbar puncture was carried out under fluoroscopic guidance with a 22 gauge 3.5' long spinal Quincke needle at the level of L2-L3 under the usual sterile conditions and local anesthesia. The opening pressure was 30 cm H2O decubitus. A total volume of 10 mL of Iohexol-300 was instilled into the lumbar thecal sac and maneuvered into the cervical spine. The patient tolerated the procedure well. Fluoroscopy time: 0.5 minutes with a skin dose of 31.7 mGy. TECHNIQUE: Volumetric CT acquisition was done of the, thoracic and lumbar spine. Axial, sagittal and coronal reconstructions were obtained. DLP: 1632.45 mGycm for the thoracolumbar spine and 516 mGycm for the cervical spine FINDINGS: The cervical, thoracic and lumbar vertebrae are normal in shape, density and alignment. Except for minimal spinal canal narrowing at L3-L4, the spinal canal is normal in size. The cervical and thoracic cord is normal in shape and diameter. Normal conus level at 1. Disc levels not mentioned below are deemed normal. C4-C5: Status post anterior interbody fusion with a stand-alone carbon cage device. The disc height is normal. C5-C6: Minimally reduced disc height. Large reactive anterior bone spurs protruding into the prevertebral soft tissues T10-T11: Tiny bone spur arising the inferior endplate of T10 to the left of midline minimally indenting the thecal sac. L3-L4: Mildly diffusely bulging posterior annulus indenting the thecal sac. Ligamentous thickening bilaterally with mild constriction of the thecal sac and crowding of the cauda equina nerve roots. Dege nerative facet changes. Spinal stimulator device situated along the spinous processes posteriorly to the right of midline with wires extending to the L4-L5 facet joints bilaterally. Mild foraminal narro wing on the right without nerve root encroachment. L4-L5: Degenerative facet enlargement bilaterally. Hemilaminectomy defect of L4 on the right. Normal disc. Normal foramina. L5-S1: Patent foramina. No nerve root encroachment. IMPRESSION: 1. Unremarkable appearing anterior interbody fusion device at C4-C5. 2. Mild constriction of the thecal sac at L3-L4 with crowding of the cauda equina nerve roots. No clinically significant stenosis. No cauda equina impingement. 3. Minimally bulging posterior annulus at L3-L4 without interval progression. 4. Facet arthropathy at L3-L4 and L4-L5 with a stimulator device in place. Spine lumbar Review of the study shows a small right lateral disc protrusion at T9-T10 indenting the thecal sac on the right. This may be associated with a T9 radiculopathy on the right 09/21/2017 [facility] myelogram CT EXAM: FLUOROSCOPY-GUIDED LUMBAR PUNCTURE FOR CT MYELOGRAM Center EXAM: CT MYELOGRAM CERVICAL SPINE EXAM: CT MYELOGRAM THORACIC SPINE EXAM: CT MYELOGRAM LUMBAR SPINE DATE: 09/21/2017 at 1536 hours INDICATION: Sudden onset of low back pain 2 weeks ago radiating down both legs. Decreased sensation in the pelvic area and weakness on the left for the past 2 weeks. Bladder and bowel incontinence durin g this time. She is unable to tell or feel when she needs to go. COMPARISON: Lumbar CT myelogram of 02/04/2014. MRI of the entire spine of . X-rays and CT lumbar spine of 09/20/2017. Preoperative cervical spine CT of 11/27/2013. PROCEDURE: An interlaminar lumbar puncture was carried out under fluoroscopic guidance with a 22 gauge 3.5' long spinal Quincke needle at the level of L2-L3 under the usual sterile conditions and local anesthesia. The opening pressure was 30 cm H2O decubitus. A total volume of 10 mL of Iohexol-300 was instilled into the lumbar thecal sac and maneuvered into the cervical spine. The patient tolerated the procedure well. Fluoroscopy time: 0.5 minutes with a skin dose of 31.7 mGy. TECHNIQUE: Volumetric CT acquisition was done of the, thoracic and lumbar spine. Axial, sagittal and coronal reconstructions were obtained. DLP: 1632.45 mGycm for the thoracolumbar spine and 516 mGycm for the cervical spine FINDINGS: The cervical, thoracic and lumbar vertebrae are normal in shape, density and alignment. Except for minimal spinal canal narrowing at L3-L4, the spinal canal is normal in size. The cervical and thoracic cord is normal in shape and diameter. Normal conus level at 1. Disc levels not mentioned below are deemed normal. C4-C5: Status post anterior interbody fusion with a stand-alone carbon cage device. The disc height is normal. C5-C6: Minimally reduced disc height. Large reactive anterior bone spurs protruding into the prevertebral soft tissues T10-T11: Tiny bone spur arising the inferior endplate of T10 to the left of midline minimally indenting the thecal sac. L3-L4: Mildly diffusely bulging posterior annulus indenting the thecal sac. Ligamentous thickening bilaterally with mild constriction of the thecal sac and crowding of the cauda equina nerve roots. Dege nerative facet changes. Spinal stimulator device situated along the spinous processes posteriorly to the right of midline with wires extending to the L4-L5 facet joints bilaterally. Mild foraminal narro wing on the right without nerve root encroachment. L4-L5: Degenerative facet enlargement bilaterally. Hemilaminectomy defect of L4 on the right. Normal disc. Normal foramina. L5-S1: Patent foramina. No nerve root encroachment. IMPRESSION: 1. Unremarkable appearing anterior interbody fusion device at C4-C5. 2. Mild constriction of the thecal sac at L3-L4 with crowding of the cauda equina nerve roots. No clinically significant stenosis. No cauda equina impingement. 3. Minimally bulging posterior annulus at L3-L4 without interval progression. 4. Facet arthropathy at L3-L4 and L4-L5 with a stimulator device in place. Spine cervical Review of the study shows a small right lateral disc protrusion at T9-T10 indenting the thecal sac on the right. This may be associated with a T9 radiculopathy on the right 09/21/2017 [facility] myelogram CT EXAM: FLUOROSCOPY-GUIDED LUMBAR PUNCTURE FOR CT MYELOGRAM Center EXAM: CT MYELOGRAM CERVICAL SPINE EXAM: CT MYELOGRAM THORACIC SPINE EXAM: CT MYELOGRAM LUMBAR SPINE DATE: 09/21/2017 at 1536 hours INDICATION: Sudden onset of low back pain 2 weeks ago radiating down both legs. Decreased sensation in the pelvic area and weakness on the left for the past 2 weeks. Bladder and bowel incontinence durin g this time. She is unable to tell or feel when she needs to go. COMPARISON: Lumbar CT myelogram of 02/04/2014. MRI of the entire spine of . X-rays and CT lumbar spine of 09/20/2017. Preoperative cervical spine CT of 11/27/2013. PROCEDURE: An interlaminar lumbar puncture was carried out under fluoroscopic guidance with a 22 gauge 3.5' long spinal Quincke needle at the level of L2-L3 under the usual sterile conditions and local anesthesia. The opening pressure was 30 cm H2O decubitus. A total volume of 10 mL of Iohexol-300 was instilled into the lumbar thecal sac and maneuvered into the cervical spine. The patient tolerated the procedure well. Fluoroscopy time: 0.5 minutes with a skin dose of 31.7 mGy. TECHNIQUE: Volumetric CT acquisition was done of the, thoracic and lumbar spine. Axial, sagittal and coronal reconstructions were obtained. DLP: 1632.45 mGycm for the thoracolumbar spine and 516 mGycm for the cervical spine FINDINGS: The cervical, thoracic and lumbar vertebrae are normal in shape, density and alignment. Except for minimal spinal canal narrowing at L3-L4, the spinal canal is normal in size. The cervical and thoracic cord is normal in shape and diameter. Normal conus level at 1. Disc levels not mentioned below are deemed normal. C4-C5: Status post anterior interbody fusion with a stand-alone carbon cage device. The disc height is normal. C5-C6: Minimally reduced disc height. Large reactive anterior bone spurs protruding into the prevertebral soft tissues T10-T11: Tiny bone spur arising the inferior endplate of T10 to the left of midline minimally indenting the thecal sac. L3-L4: Mildly diffusely bulging posterior annulus indenting the thecal sac. Ligamentous thickening bilaterally with mild constriction of the thecal sac and crowding of the cauda equina nerve roots. Dege nerative facet changes. Spinal stimulator device situated along the spinous processes posteriorly to the right of midline with wires extending to the L4-L5 facet joints bilaterally. Mild foraminal narro wing on the right without nerve root encroachment. L4-L5: Degenerative facet enlargement bilaterally. Hemilaminectomy defect of L4 on the right. Normal disc. Normal foramina. L5-S1: Patent foramina. No nerve root encroachment. IMPRESSION: 1. Unremarkable appearing anterior interbody fusion device at C4-C5. 2. Mild constriction of the thecal sac at L3-L4 with crowding of the cauda equina nerve roots. No clinically significant stenosis. No cauda equina impingement. 3. Minimally bulging posterior annulus at L3-L4 without interval progression. 4. Facet arthropathy at L3-L4 and L4-L5 with a stimulator device in place. Spine myelogram Review of the study shows a small right lateral disc protrusion at T9-T10 indenting the thecal sac on the right. This may be associated with a T9 radiculopathy on the right 09/21/2017 [facility] complete DX EXAM: FLUOROSCOPY-GUIDED LUMBAR PUNCTURE FOR CT MYELOGRAM Center EXAM: CT MYELOGRAM CERVICAL SPINE EXAM: CT MYELOGRAM THORACIC SPINE EXAM: CT MYELOGRAM LUMBAR SPINE DATE: 09/21/2017 at 1536 hours INDICATION: Sudden onset of low back pain 2 weeks ago radiating down both legs. Decreased sensation in the pelvic area and weakness on the left for the past 2 weeks. Bladder and bowel incontinence durin g this time. She is unable to tell or feel when she needs to go. COMPARISON: Lumbar CT myelogram of 02/04/2014. MRI of the entire spine of . X-rays and CT lumbar spine of 09/20/2017. Preoperative cervical spine CT of 11/27/2013. PROCEDURE: An interlaminar lumbar puncture was carried out under fluoroscopic guidance with a 22 gauge 3.5' long spinal Quincke needle at the level of L2-L3 under the usual sterile conditions and local anesthesia. The opening pressure was 30 cm H2O decubitus. A total volume of 10 mL of Iohexol-300 was instilled into the lumbar thecal sac and maneuvered into the cervical spine. The patient tolerated the procedure well. Fluoroscopy time: 0.5 minutes with a skin dose of 31.7 mGy. TECHNIQUE: Volumetric CT acquisition was done of the, thoracic and lumbar spine. Axial, sagittal and coronal reconstructions were obtained. DLP: 1632.45 mGycm for the thoracolumbar spine and 516 mGycm for the cervical spine FINDINGS: The cervical, thoracic and lumbar vertebrae are normal in shape, density and alignment. Except for minimal spinal canal narrowing at L3-L4, the spinal canal is normal in size. The cervical and thoracic cord is normal in shape and diameter. Normal conus level at 1. Disc levels not mentioned below are deemed normal. C4-C5: Status post anterior interbody fusion with a stand-alone carbon cage device. The disc height is normal. C5-C6: Minimally reduced disc height. Large reactive anterior bone spurs protruding into the prevertebral soft tissues T10-T11: Tiny bone spur arising the inferior endplate of T10 to the left of midline minimally indenting the thecal sac. L3-L4: Mildly diffusely bulging posterior annulus indenting the thecal sac. Ligamentous thickening bilaterally with mild constriction of the thecal sac and crowding of the cauda equina nerve roots. Dege nerative facet changes. Spinal stimulator device situated along the spinous processes posteriorly to the right of midline with wires extending to the L4-L5 facet joints bilaterally. Mild foraminal narro wing on the right without nerve root encroachment. L4-L5: Degenerative facet enlargement bilaterally. Hemilaminectomy defect of L4 on the right. Normal disc. Normal foramina. L5-S1: Patent foramina. No nerve root encroachment. IMPRESSION: 1. Unremarkable appearing anterior interbody fusion device at C4-C5. 2. Mild constriction of the thecal sac at L3-L4 with crowding of the cauda equina nerve roots. No clinically significant stenosis. No cauda equina impingement. 3. Minimally bulging posterior annulus at L3-L4 without interval progression. 4. Facet arthropathy at L3-L4 and L4-L5 with a stimulator device in place. Ext Upper & Lower EXAM: US BILATERAL UPPER EXTREMITY VENOUS DOPPLER 2017 [facility] Venous Doppler Chet EXAM: US BILATERAL LOWER EXTREMITY VENOUS DOPPLER [facility] DATE: 09/20/2017 9:54 PM CDT INDICATION: - sedentary life ADDITIONAL INFORMATION: None. COMPARISON: None. TECHNIQUE: Multiplanar grayscale, color Doppler and spectral Doppler ultrasound of the bilateral upper and lower extremity veins. FINDINGS: Right Upper Extremity Veins: Internal Jugular: Patent. Subclavian: Patent. Axillary: Patent. Brachial: Patent. Basilic: Patent. Cephalic: Patent. Left Upper Extremity Veins: Internal Jugular: Patent. Subclavian: Patent. Axillary: Patent. Brachial: Patent. Basilic: Patent. Cephalic: Patent. Right Thigh Veins: Common Femoral: Patent. Femoral (SFV): Patent. Popliteal: Patent. Proximal Greater Saphenous: Patent. Deep Femoral Veins: Patent. Left Thigh Veins: Common Femoral: Patent. Femoral (SFV): Patent. Popliteal: Patent. Proximal Greater Saphenous: Patent. Deep Femoral Veins: Patent. Other: None. IMPRESSION: 1. No deep venous thrombosis (DVT). Spine cervical wo EXAM: CT CERVICAL SPINE WITHOUT CONTRAST 09/21/2017 [facility] contrast CT EXAM: CT THORACIC SPINE WITHOUT CONTRAST Center DATE: 09/20/2017 9:54 PM CDT INDICATION: Neck and back pain. COMPARISON: None TECHNIQUE: Noncontrast helical CT imaging of the cervical and thoracic spine with multiplanar reformats. DLP: 1898 mGy*cm DISCUSSION: Cervical spine: Straightening of cervical spine. No fracture or listhesis of the cervical spine. 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 C2-3: No degenerative disc changes or facet arthropathy. No osseous neural foraminal narrowing. C3-4: No degenerative disc disease or facet arthropathy. No osseous neuroforaminal narrowing. C4-5: Discectomy and anterior spinal fusion with complete ankylosis of the disc space. No hardware complication. Right anterior bridging vertebral body osteophyte. Minimal posterior vertebral body osteo phytes. No facet disease. Mild osseous neuroforaminal narrowing on the left. C5-6: Disc height loss with large anterior and moderate posterior vertebral body osteophytes. No facet arthropathy. Moderate to severe left osseous neuroforaminal narrowing. C6-7: Mild disc height loss with small anterior vertebral body osteophytes. No facet arthropathy. Mild left osseous neuroforaminal narrowing. C7-T1: No degenerative disc disease or facet arthropathy. No osseous neuroforaminal narrowing. Cervical soft tissues: Paraspinal soft tissues are normal in appearance. Diffusely enlarged and heterogeneous thyroid. Minimal arterial calcification. Thoracic spine: Normal alignment of the thoracic spine. No fracture identified. Vertebral body and disc heights are maintained. Small anterior vertebral body osteophytes at T3-4, T4-5, T5-6, T6-7, and T8- 9. Mild facet arthropathy on the right at T4-5 and T6-7 and on the left at T4-5 , T6-7, and T8-9. No osseous spinal canal or neuroforaminal narrowing. Thoracic soft tissues: Paraspinal soft tissues are normal in appearance. Imaged mediastinal structures are normal in noncontrast appearance. No pulmonary nodules identified in the visualized portion of the lungs. Imaged abdominal organs are normal in noncontrast appearance. IMPRESSION: 1. No acute abnormality of the cervical or thoracic spine identified. 2. Discectomy and anterior spinal fusion at C4-5 without complication identified. 3. Degenerative disc disease at C5-6 causing moderate to severe left osseous neuroforaminal narrowing. 4. Mild degenerative disc disease and facet arthropathy of the thoracic spine without significant osseous neuroforaminal narrowing. 5. Diffusely enlarged and heterogeneous thyroid. Spine thoracic wo EXAM: CT CERVICAL SPINE WITHOUT CONTRAST 09/21/2017 [facility] contrast CT EXAM: CT THORACIC SPINE WITHOUT CONTRAST Center DATE: 09/20/2017 9:54 PM CDT INDICATION: Neck and back pain. COMPARISON: None TECHNIQUE: Noncontrast helical CT imaging of the cervical and thoracic spine with multiplanar reformats. DLP: 1898 mGy*cm DISCUSSION: Cervical spine: Straightening of cervical spine. No fracture or listhesis of the cervical spine. 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 C2-3: No degenerative disc changes or facet arthropathy. No osseous neural foraminal narrowing. C3-4: No degenerative disc disease or facet arthropathy. No osseous neuroforaminal narrowing. C4-5: Discectomy and anterior spinal fusion with complete ankylosis of the disc space. No hardware complication. Right anterior bridging vertebral body osteophyte. Minimal posterior vertebral body osteo phytes. No facet disease. Mild osseous neuroforaminal narrowing on the left. C5-6: Disc height loss with large anterior and moderate posterior vertebral body osteophytes. No facet arthropathy. Moderate to severe left osseous neuroforaminal narrowing. C6-7: Mild disc height loss with small anterior vertebral body osteophytes. No facet arthropathy. Mild left osseous neuroforaminal narrowing. C7-T1: No degenerative disc disease or facet arthropathy. No osseous neuroforaminal narrowing. Cervical soft tissues: Paraspinal soft tissues are normal in appearance. Diffusely enlarged and heterogeneous thyroid. Minimal arterial calcification. Thoracic spine: Normal alignment of the thoracic spine. No fracture identified. Vertebral body and disc heights are maintained. Small anterior vertebral body osteophytes at T3-4, T4-5, T5-6, T6-7, and T8- 9. Mild facet arthropathy on the right at T4-5 and T6-7 and on the left at T4-5 , T6-7, and T8-9. No osseous spinal canal or neuroforaminal narrowing. Thoracic soft tissues: Paraspinal soft tissues are normal in appearance. Imaged mediastinal structures are normal in noncontrast appearance. No pulmonary nodules identified in the visualized portion of the lungs. Imaged abdominal organs are normal in noncontrast appearance. IMPRESSION: 1. No acute abnormality of the cervical or thoracic spine identified. 2. Discectomy and anterior spinal fusion at C4-5 without complication identified. 3. Degenerative disc disease at C5-6 causing moderate to severe left osseous neuroforaminal narrowing. 4. Mild degenerative disc disease and facet arthropathy of the thoracic spine without significant osseous neuroforaminal narrowing. 5. Diffusely enlarged and heterogeneous thyroid. Chest 1view DX EXAM: XR CHEST 1 VIEW 09/20/2017 [facility] DATE: 09/20/2017 10:16 PM CDT Center INDICATION: - hx of cardiac disease. FINDINGS: Comparison is made to August 29, 2017. Cardiomediastinal silhouette is unchanged. There is a new implantable loop recorder projecting over the left lower chest. The right hemidiaphragm is elevated. The lungs are clear. No pleural effusions. IMPRESSION: New implantable loop recorder. Spine lumbar wo Patient Name: DANIA JANE 09/20/2017 [facility] contrast CT : 1970; Age: 47 years y/o Female MR: [id number] Study: Spine lumbar wo contrast CT 09/20/2017 5:38 PM CDT Clinical Indication: - r/o cauda equina; Comparison: CT myelogram of the lumbar spine from 02/04/2014 TECHNIQUE: Sequential trans-axial images were obtained with a multi-detector helical CT. Coronal and sagittal reconstructions were obtained. CT Radiation Dose DLP 695.18 mGy-cm FINDINGS: ALIGNMENT AND GENERAL ASSESSMENT: There are 5 nonrib-bearing lumbar vertebral segments. There is normal alignment of the lumbar spine. The anterior and posterior paraspinal soft tissues are unremarkable. There are no fractures or subluxations of the lumbar spine. There are no pars interarticularis defects and no spondylolisthesis. The facet joints are well aligned. Spinal cord stimulating device is seen with distal leads terminating along the posterior elements of L4 and L5. DISK SPACES AND SOFT TISSUES: MRI has higher sensitivity and specificity for disc and soft tissue disease. T12-L1: The disc is unremarkable. Mild facet arthrosis is seen. There is no spinal canal stenosis or neural foraminal narrowing. L1-L2: The disc is unremarkable. Mild facet arthrosis is seen. There is no spinal canal stenosis or neural foraminal narrowing. L2-L3: The disc is unremarkable. Mild facet arthrosis is seen. There is no spinal canal stenosis or neural foraminal narrowing. L3-L4: Small to moderate-sized annular disc bulge is seen. Mild facet arthrosis is noted. There is mild spinal canal stenosis. Moderate right neural foraminal narrowing is present. L4-L5: Small annular disc bulge is present. Moderate-severe facet arthrosis is seen. There is no spinal canal stenosis. Mild bilateral neural foraminal narrowing is present. L5-S1: Negative for significant disc bulge or protrusion. Moderate facet arthrosis is seen. There is no spinal canal stenosis. There is mild left neural foraminal narrowing. There is extensive heterotopic ossification about the posterior elements. If there is further concern, CT myelogram or MRI of the lumbar spine may be performed for complete assessment. IMPRESSION: 1. No acute bony abnormality of the lumbar spine. 2. Multilevel degenerative changes of the lumbar spine with mild spinal canal stenosis and moderate right neural foraminal narrowing at L3-L4. 3. L4-L5 mild bilateral neural foraminal narrowing. 4. L5-S1 mild left neural foraminal narrowing. SL: SLEE-PC Spine lumbar 2 or 3 Clinical Indication: Numbness - confirmation of hardware 09/20/2017 [facility] views DX Comparison: January 09, 2014 FINDINGS: The AP, oblique and lateral views of the lumbar spine show five non rib bearing lumbar vertebral segments. There are no fractures, pars defects, or spondylolisthesis. Postoperative changes from bone gra fting are visible in the lower lumbar spine, not changed from prior exam. Stimulation device battery pack is present in the midline soft tissues dorsal to L4 with leads projecting in the areas of the L4 -5 facet joints, also not changed from prior exam. The disc spaces are normal without significant degenerative disc disease. The posterior elements, spinous processes and transverse processes are normal. The paraspinal soft tissues are unremarkable. The visualized sacroiliac joints are unremarkable. If there is further concern or neurological abnormalities on clinical exam, MRI or CT of the lumbar spine may be performed for complete assessment. IMPRESSION: 1. No fracture, subluxation, or disc disease is identified on this exam. 2. There has been prior bone grafting in the area of the lower lumbar spine , unchanged from prior exam. 3. A stimulation device is present as described, unchanged from prior exam. SL: 82 Chest 1view DX PROCEDURE: Chest, AP on 08/29/2017 at 1359 hours. 08/29/2017 [facility] INDICATION: Chest pain. COMPARISON: Chest radiographs dated 08/10/2016 and 10/16/2015. FINDINGS: No pleural effusion or pneumothorax. Lung volumes are decreased with mild bibasilar atelectasis. Lungs are otherwise clear without venous congestion. No consolidation. Mediastinum and shelia appear unremarkable. IMPRESSION: 1. Decreased lung volumes with likely mild bibasilar atelectasis. SL: [id number] Chest 1view DX Patient Name: DANIA JANE 08/10/2016 [facility] : 1970; Age: 46 years Female MR: [id number] Study: Chest 1view DX Order Time: 08/10/2016 10:48 AM CDT CLINICAL INDICATION: - epigastric discomfort COMPARISON: Chest radiograph on 10/16/2015 FINDINGS: Lines: None. Lungs: The lungs are grossly clear. Mediastinum: The cardiac silhouette is within normal limits of size. Midline trachea. Bones and soft tissues: No acute abnormalities. IMPRESSION: No acute cardiopulmonary abnormalities. SL: [id number] Abdomen RUQ US Patient Name: DANIA JANE 08/10/2016 [facility] : 1970; Age: 46 years Female MR: [id number] Study: Abdomen RUQ US 08/10/2016 10:48 AM CDT Clinical Indication: Abdominal pain, acute - ruq abdominal pain. COMPARISON: None TECHNIQUE: Grayscale and limited color sonographic evaluation of the right upper quadrant of the abdomen and gallbladder region was performed with standard technique. FINDINGS: LIVER: The visualized liver shows normal contour, size, and morphology. There is increased parenchymal echotexture. BILE DUCTS: The intrahepatic and extrahepatic bile ducts are not dilated. The common bile duct measures 3.1 mm. The distal common bile duct is not well seen. GALLBLADDER: There are no gallstones, gallbladder sludge, pericholecystic fluid or wall thickening. PANCREAS: The pancreas body body is normal. The head and tail are obscured by bowel gas. KIDNEY: The right kidney measures 11.6 x 3.6 x 6.2 cm. The renal cortical thickness measures 2.1 cm. There is normal renal contour and morphology, with normal parenchymal echotexture. There is no hydronephrosis. ASCITES: There is no right upper quadrant abdominal ascites. IMPRESSION: Hepatocellular disease most likely due to fatty infiltration. SL: [id number] Chest 1view DX Chest 1view DX 10/16/2015 10:40 AM CDT 10/16/2015 [facility] Ordering Physician: Neto Sommers MD CLINICAL HISTORY: Dyspnea; TECHNIQUE: AP view of the chest were obtained. COMPARISON: 08/16/2015 FINDINGS: Lungs are clear. No pleural effusion of pneumothorax is present. Cardiomediastinal silhouette is normal. Bones are normal. IMPRESSION: No acute abnormality of the chest. SL: [id number] Chest 1view DX Study: Chest 1view DX 08/16/2015 [facility] Clinical Indication: Chest pain Comparison: 06/03/2015 FINDINGS: The cardiac silhouette is normal in size. The lungs are clear and without consolidation or congestion. No pleural effusion or pneumothorax is seen. The osseous structures are unremarkable. IMPRESSION: No acute cardiopulmonary disease. SL: [id number] Chest 2 views DX Chest one view: 06/03/2015 [facility] Exam reason: Chest pain A few scattered interstitial opacities and granulomatous calcifications are noted bilaterally, nonspecific, likely chronic. The cardiomediastinal silhouette is normal. There is no consolidation or pleur al fluid collection noted. Nonspecific elevation of the right hemidiaphragm relative to the left. IMPRESSION: No acute cardiopulmonary process noted. Allowing for differences in technique and inspiratory effort, there is no significant interval change from the previous exam, 05/13/2015. SL:12 Chest 1view DX Portable chest: The cardiac silhouette and pulmonary vasculature are within normal limits. There is a vague 1 cm nodular opacity overlying the right anterior fourth rib not seen on the radiograph of 01 2015 [facility] which is probably confluent shadows. The lungs and pleural spaces are otherwise clear. There is no other change. SL:13 Chest 1view DX EXAM: CHEST 1 VIEW 05/01/2015 [facility] DATE: May 01, 2015 11:36:26 AM INDICATION: Chest pain COMPARISON: Chest x-ray 04/09/2015. TECHNIQUE: AP chest radiograph. FINDINGS: There is bibasilar subsegmental atelectasis. No pleural effusion or pneumothorax is identified The cardiomediastinal contours are within normal limits. The skeleton is intact IMPRESSION: 1. No acute intrathoracic abnormality SL: 13 Chest 1view DX Portable chest: The cardiac silhouette and pulmonary vasculature are within normal limits. The lungs and pleural spaces are clear. There are no acute osseous abnormalities. There is no significant change compared to 03/14/2015. 04/09/2015 [facility] IMPRESSION: No acute radiographic abnormality in the chest. SL:13 Chest 1view DX CHEST SINGLE VIEW (PORTABLE AP): 03/14/2015 [facility] HX: Cough and fever COMPARISON: 12/18/2014 FINDINGS: The lungs are free of consolidation or pleural effusion and the mediastinal silhouette is within normal limits of size. The visualized osseous structures are grossly normal. IMPRESSION: Negative chest. SL: 13 Thyroid US THYROID ULTRASOUND: 12/19/2014 [facility] COMPARISON: 12/01/2005 CLINICAL HX: Thyroid nodules, goiter TECHNIQUE: Multiple static transcervical images of thyroid gland are submitted for review. FINDINGS: The thyroid gland demonstrates normal echogenicity and is symmetric in size. The right lobe measures 5.5 x 2.6 x 2.3 cm and the left lobe measures 5.0 x 2.3 x 2.4 cm in size. 1.2 cm nodule is noted in the midportion of right lobe of thyroid gland. 2.4 x 1.5 cm nodule is noted in the lower pole of left lobe of thyroid. 2.6 x 2.1 cm nodule is noted near the junction of left lobe and isthmus. 8mm nodule upper to midportion of left lobe of thyroid gland. The size of the isthmic nodule and nodule at the lower pole of left lobe of thyroid gland have both significantly increased in size from previous ultrasound study of 01/2006. IMPRESSION: Interval increase in size of left lobe thyroid nodules as discussed above. FNA of both nodules is recommended to exclude neoplasm. SL:13 Chest/Abdomen CTA PROCEDURE: Abdomen and Chest CTA 12/19/2014 [facility] CLINICAL INFORMATION Chest pain COMPARISON: CAT scan 08/02/2014. 05/06/2014. CHEST with IV contrast: Enlarged thyroid gland with multiple nodular densities. No technically enlarged mediastinal or axillary lymph nodes. Normal aortic caliber, no dissection. Aortic root measures 3 cm. Aorta at its arch me asures 2.4 cm. The descending thoracic aorta at the level of the pulmonary to bifurcation measures 2.4 cm. The distal descending thoracic aorta measures 2.3 cm. No focal infiltrates, effusions or pneumothorax. Mild congestive change. Patent airway. ABDOMEN with IV contrast: No free air. Epidural catheters are noted. Diffuse fatty change to the liver which is enlarged measuring 28 x 24 cm. Normal gallbladder, portal vein, spleen , adrenal glands, pancreas and kidneys. No hyd ronephrosis or perinephric stranding. No small bowel obstruction. There is normal aortic caliber, without dissection. The aortic caliber measures 2 cm. There is normal origin of the superior mesenteric artery, inferior mesenteric artery and celiac artery. Single renal artery origins are noted bilaterally without stenosis. Epidural catheter may be shallow to the epidural space. 3-D reformatted images post contrast demonstrates normal aortic caliber without dissection. IMPRESSION: 1. Normal evaluation of the thoracic and abdominal aorta. 2. Multiple thyroid nodules for which a thyroid ultrasound is recommended. 3. Hepatomegaly with fatty infiltration of the liver. 4. Epidural catheter does not appear to be in the epidural space. These findings are communicated to the patient's nurse Krystin at 5:20 p.m. DLP: 3015 mGy-cm SL: 13 Chest 1view DX Chest one view: 12/18/2014 [facility] COMPARISON: 08/01/2014 FINDINGS: Limited AP portable study. The lungs and pleural spaces are clear. Persistent elevation of right hemidiaphragm. The cardiomediastinal silhouette is unremarkable. No significant bony abnormality is visualized. IMPRESSION: No significant acute abnormality is noted on the one view chest. SL:13 Cardiac SPECT multi Lexiscan Cardiolite stress test was performed according to standard protocol. 08/03/2014 [facility] studies NM A total of 11 mCi Tc99m Cardiolite was injected for the stress portion and 33 mCi Tc99m Cardiolite was injected for the resting scan. The gated examination demonstrated preserved left ventricular systolic function. The calculated left ventricular ejection fraction is 69%. LVESV was 19 ml and LVEDV was 62 ml. CONCLUSIONS: 1. Reversible defect noted in the anteroseptal distribution. 2. Preserved left ventricular systolic function with a calculated ejection fraction of 69%. Chest Pulmonary HISTORY: Chest tightness. 08/02/2014 [facility] Embolism CTA Chest CT with IV contrast, attention pulmonary arteries. 3-D CTA post process reformat imaging performed. No CT evidence for pulmonary embolus. The lungs are clear. No aortic aneurysm or dissection. No pleural or pericardial effusion. No mediastinal or hilar mass or adenopathy. Enlarged multinodular thyroid as before. Limited visualized upper abdomen demonstrates fatty infiltration of the liver. IMPRESSION: No CT or CTA evidence for pulmonary embolus. No acute thoracic finding. SL: 13 Chest 2 views DX PROCEDURE: Chest 2 views 08/01/2014 [facility] REASON FOR EXAM: See Clinic Indication CLINICAL INDICATION: Chest pain COMPARISON: 05/05/2014. FINDINGS: No acute process. No focal consolidation, pleural effusion, or pneumothorax. Stable cardiac silhouette and mediastinum. Postoperative cervical spinal fusion is present. SL: [address] CHEST WITH CONTRAST 05/06/2014 [facility] INDICATION: Chest pain COMPARISON: Chest radiograph 05/05/2014 FINDINGS: Evaluation is limited due to under inflation of the lungs and motion artifacts. No pulmonary emboli are visualized. The heart and aorta are unremarkable. There is no consolidation, pleural effusion, or pneumothorax. Trachea and major bronchi are clear. The thyroid appears enlarged and multinodular. No suspicious lymphadenopathy is identified. Limited yoana luation of the upper abdominal structures is grossly unremarkable. No acute bony abnormalities are seen. IMPRESSION: 1. No acute intrathoracic abnormalities are visualized. 2. Multinodular goiter. SL: 16 Chest 2 views PA and LATERAL CHEST 05/05/2014 [facility] (2 views) HISTORY: Chest pain Comparison is made to 03/06/2014 A study of 02/03/2014 was also reviewed. FINDINGS: The lungs are clear. There is mild chronic elevation of the right hemidiaphragm. There are no pleural effusions. The heart and pulmonary vasculature are within normal limits. The regional skeleton is unremarkable. CONCLUSION: 1. No active disease. Coding: Chest 2 views CPT Code: 28528 SL: 12 Tyson Vicente M.D. Chest 1view EXAM: CHEST 1 VIEW 03/06/2014 [facility] DATE: Mar 06, 2014 08:39:34 AM INDICATION: Chest pain COMPARISON: Chest x-ray 02/03/2014. TECHNIQUE: AP chest radiograph. FINDINGS: Lungs are clear bilaterally without effusion. . The cardiac silhouette is not enlarged. The ascending aorta remains ectatic.. The skeleton is intact IMPRESSION: No acute intrathoracic abnormality SL: [address] LUMBAR MYELOGRAM. 02/04/2014 [facility] CT INDICATION: 43 year-old female with lumbar pain. TECHNIQUE: Multiple contiguous axial CT scan of the lumbosacral spine was performed after the administration of intrathecal contrast. Additional sagittal and coronal reformatted images were obtained for better evaluation. COMPARISON: MRI lumbar spine dated 02/03/2014 FINDINGS: The visualized distal cord is unremarkable. The conus medullaris terminates normally in the thoracolumbar transition. Vertebral body heights are maintained. Intervertebral disc height is grossly preserved. No fracture is seen. No spondylolisthesis. No spondylolysis. Disc bulge with superimposed posterior disc protrusion at L3/L4. Moderate hypertrophic and sclerotic facet arthrosis at L4/L5 and L5/S1. Lumbosacral spinal stimulator device is noted. At T12-L1, no canal stenosis or neural foraminal narrowing. At L1-L2, no canal stenosis or neural foraminal narrowing. At L2-L3, mild diffuse disc bulge. No canal stenosis or neural foraminal narrowing. At L3-L4, mild diffuse disc bulge. Superimposed broad-based protrusion measuring up to 4 mm in depth. Moderate ligamentum flavum hypertrophy. Moderate canal stenosis. Mild bilateral neural foraminal narrowing. At L4-L5, mild diffuse disc bulge. No canal stenosis. Mild bilateral neural foraminal narrowing. At L5-S1, no canal stenosis. Mild bilateral neural foraminal narrowing. IMPRESSION: 1. Moderate spondylosis at L3/L4 with moderate canal stenosis. 2. Remainder of the lumbar spine demonstrate mild spondylosis with no canal stenosis and mild neural foraminal narrowing. SL: 13 Spine lumbar FLUOROSCOPIC GUIDED LUMBAR MYELOGRAM [facility]04[facility] INDICATION: Lumbar pain PROCEDURE: Under fluoroscopic guidance, a 22 gauge spinal needle was introduced into the thecal sac at the L2/L3 level. Approximately 10 cc of iodinated contrast was injected into the thecal sac. Frontal and oblique spot images of the lumbar spine were then obtained which demonstrate no significant abnormality. The patient tolerated the procedure well, without complications, and was sent to the CT suite for further imaging. Fluoro time: 40 seconds SL: 13 Spine entire wo Examination: MRI of the entire spine without contrast 2013 [facility] MRI History: Numbness Comparison: MRI of the cervical spine from 11/27/2013 TECHNIQUE: Multiplanar, multisequence magnetic resonance imaging of the cervical spine was performed without administration of intravenous gadolinium contrast. Findings: Cervical spine: Anatomic alignment is maintained across the cervical spine. No vertebral body height loss or subluxation is seen. The cervical spinal cord is normal in signal intensity and morphology. D isc desiccation throughout the cervical spine is seen with mild disc height loss at C5-C6. The paravertebral soft tissues are unremarkable. No epidural fluid collections are seen. C2-C3: Normal in appearance. C3-C4: Normal in appearance. C4-C5: New postoperative changes of discectomy with interbody spacer placement and anterior instrumentation for fusion are seen. Circumferential osteophyte is again noted, resulting in moderate to sever e left neuroforaminal narrowing. No spinal canal stenosis is seen. Facets are intact. C5-C6: Large circumferential disc osteophyte complex is again seen, resulting in moderate spinal canal stenosis as well as moderate to severe bilateral neuroforaminal narrowing, left greater than right. Facets are intact. C6-C7: Small circumferential disc osteophyte complex is seen, producing mild anterior thecal sac effacement. No spinal canal stenosis is seen. There is mild bilateral neuroforaminal narrowing. Facets are intact. C7-T1: Negative for significant disc bulge or protrusion. Mild facet arthrosis is seen. There is no spinal canal stenosis or neuroforaminal narrowing. Thoracic spine: Anatomic alignment is maintained across the thoracic spine. No acute vertebral body height loss or subluxation is seen. No focal marrow signal intensity abnormality is noted. Mild disc d esiccation in the mid thoracic spine is seen. No spinal canal stenosis or neuroforaminal narrowing throughout the thoracic spine is seen. The thoracic spinal cord is normal in signal intensity and morph ology. The paravertebral soft tissues are unremarkable. Lumbar spine: There are 5 nonrib bearing lumbar vertebra. There is a bone graft device in the posterior subcutaneous soft tissues. There is resulting extensive blooming artifact which limits evaluation of the lower lumbar spine. The conus terminates approximately at L1-L2. Disc desiccation at L3-L4 is seen. T12-L1: Normal in appearance. L1-L2: Normal in appearance. L2-L3: Normal in appearance. L3-L4: 6 mm broad-based disc bulge is seen, producing mild anterior thecal sac effacement. Moderate facet arthrosis and ligamentum flavum hypertrophy is seen. There is no spinal canal stenosis or neuroforaminal narrowing. L4-L5: 3 mm diffuse disc bulge is seen. No spinal canal stenosis is seen. No neuroforaminal narrowing is seen. L5-S1: Negative for significant disc bulge or protrusion. There is no significant spinal canal stenosis or neuroforaminal narrowing. Mild facet arthrosis is seen. IMPRESSION: 1. New postoperative changes of discectomy and interbody spacer placement with fusion at C4-C5. 2. Multilevel degenerative changes of the cervical spine. There is no evidence of spinal cord compression throughout the cervical spine. 3. No spinal canal stenosis throughout the thoracic spine. 4. Degenerative changes of the visualized lumbar spine without significant spinal canal stenosis. SL: 16 Chest 2 views Examination: Chest x-ray, 2 views 02/03/2014 [facility] History: Fever Comparison: 11/26/2013 Findings: The lungs are clear and without focal consolidation. The cardiomediastinal silhouette is within normal limits. No pleural effusion or pneumothorax is seen. The osseous structures are without focal abnormality. IMPRESSION: No acute cardiopulmonary disease. SL: [address] Examination: CT scan of the brain without contrast. [facility] HISTORY: Weakness COMPARISON: CT of the brain from 11/26/2013 DLP: 836.10 TECHNIQUE: Multiple axial CT images of the brain were obtained without the administration of intravenous contrast. FINDINGS: Mild age-related atrophy of the brain parenchyma is seen. No acute intracranial hemorrhage, mass effect, midline shift, or hydrocephalus is seen. There are no extra-axial fluid collections. Th e visualized paranasal sinuses and mastoid air cells are well-aerated. The optic globes and retrobulbar soft tissues are unremarkable. IMPRESSION: No acute intracranial abnormality. SL: 16 Spine lumbar 2 or 3 Examination: Lumbar spine, 3 views 01/09/2014 [facility] DX History: Pain, Lumbar region Comparison: None. Findings: Multiple views of the lumbar spine show 5 nonrib bearing lumbar vertebra. No acute vertebral body height loss or subluxation is seen. Scattered mild marginal osteophytes throughout the lower l umbar spine are seen. Facet arthrosis in the lower lumbar spine is seen. Postoperative changes of prior bone grafting in the lower lumbar spine are seen. IMPRESSION: No acute bony abnormality of the lumbar spine. SL: 16 Spine cervical 2 or Examination: Cervical spine, 3 views 01/09/2014 [facility] 3 view DX History: Pain, Cervical region Comparison: None. Findings: Multiple views of the cervical spine show visualization through the top of the C7 vertebral body on the lateral view. Postoperative changes of anterior instrumentation for fusion with discecto my and interbody spacer placement at C4-C5 are seen. No hardware fracture or displacement is seen. Mild degenerative disc disease at C5-C6 is seen with disc height loss and marginal osteophyte formation . The odontoid process is intact. The prevertebral soft tissues are unremarkable. IMPRESSION: 1. No acute bony abnormality of the cervical spine. 2. Status post C4-C5 fusion. SL: 16 Spine cervical 2 or Cervical spine. 11/27/2013 [facility] 3 views HISTORY: Cervical spine surgery COMPARISON: CT cervical spine dated 11/27/2013. FINDINGS: Several intraoperative fluoroscopic views demonstrate placement of 3 screws, but this is only seen on the AP view. Screws are within an indeterminate location project at the level of the C4/C5 disc space. SL: [address] CERVICAL SPINE WITHOUT CONTRAST 11/27/[address] [facility] [address] CT INDICATION: Numbness COMPARISON: MRI cervical spine performed concurrently DISCUSSION: Alignment: Vertebral body alignment is within normal limits. Craniocervical junction: No abnormalities. The foramen magnum is grossly patent. Vertebral bodies: No compression or displaced fractures from C1 through C7. Soft tissues: Grossly unremarkable. Disc spaces, foramina, and spinal canal: C2-C3 and C3-C4: The disc spaces are maintained. There is no significant arthrosis. The spinal canal and foramina are grossly patent. C4-C5: The disc space is maintained. There is mild osteophytosis. There is a 5 - 6 mm central disc protrusion that results in probable severe spinal canal stenosis and cord compression. This finding is better evaluated in the concurrent MRI. There is no significant arthrosis. The foramina are grossly patent. C5-C6: The disc space is maintained. There is minimal osteophytosis. Bilateral uncovertebral arthrosis appears to result in mild right foraminal stenosis and moderate to severe left foraminal stenosis. The spinal canal is grossly patent. C6-C7: The disc space is maintained. Left uncovertebral arthrosis results in mild narrowing of the left foramen. The spinal canal and right foramen are grossly patent. C7-T1: The disc space is maintained. There is no significant arthrosis. The spinal canal and foramina are grossly patent. IMPRESSION: Mild cervical spondylosis, as described. Spondyloarthropathy results in moderate to severe left foraminal stenosis at C5-C6. A 5 - 6 mm central disc protrusion at C4-C5 likely results in severe spinal c anal stenosis and spinal cord compression. This finding is better evaluated in the concurrent MRI of the cervical spine. There is otherwise no significant spinal canal stenosis SL: 16 Spine cervical wo MRI CERVICAL SPINE WITHOUT CONTRAST 11/27/2013 [facility] MRI INDICATION: Numbness COMPARISON: CT cervical spine performed concurrently DISCUSSION: Alignment: Vertebral body alignment is within normal limits. Craniocervical junction: No abnormalities. The foramen magnum is patent. Vertebral bodies: Normal in height and signal from C2 through T3. Spinal cord: There is severe spinal cord compression at C4-C5, without cord signal change. The spinal cord is otherwise normal in signal and morphology from the brainstem to the T3-T4 level. Soft tissues: Thyroid appears enlarged and multinodular. The prevertebral soft tissues are otherwise unremarkable. Disc spaces, foramina, and spinal canal: C2-C3 and C3-C4: The discs are normal in height and signal. There is no significant arthrosis. The spinal canal and foramina are patent. C4-C5: Disc height is maintained. A 5 - 6 mm central disc protrusion results in severe spinal canal stenosis and spinal cord compression. The cord is grossly normal in signal. The posterior longitudinal ligame nt is elevated. There is mild bilateral uncovertebral arthrosis, without foraminal stenosis. C5-C6: The disc is normal in height and signal. Posterior disc osteophyte complex, in association with elevation of the PLL, results in moderate spinal canal stenosis, with anterior thecal effacement. Bilatera l uncovertebral arthrosis results in moderate right foraminal stenosis and severe left foraminal stenosis. C6-C7: Disc height is maintained. Posterior disc osteophyte complex results in mild spinal canal stenosis. Bilateral uncovertebral arthrosis results in mild bilateral foraminal stenosis, left worse than right. C7-T1: The disc is normal in height and signal. There is no significant arthrosis. The spinal canal and foramina are patent. IMPRESSION: 1. A 5 - 6 mm central disc protrusion at C4-C5 results in severe spinal canal stenosis and severe spinal cord compression. The cord is grossly normal in signal. 2. Spondyloarthropathy results in severe left foraminal stenosis at C5-C6. SL: 16 Brain wo contrast MRA OF THE BRAIN: 11/26/2013 [facility] MRA TECHNIQUE: 3-D [id number] acquisitions without contrast were done. MIP reconstructions were obtained. FINDINGS: The internal carotid arteries, anterior and middle cerebral arteries show no significant stenosis or aneurysms. None of the communicating arteries are definitely visualized, although a small r ight posterior communicating artery may be present. The distal vertebral arteries, basilar artery and posterior cerebral arteries show no significant stenosis or aneurysms. IMPRESSION: No significant MRA abnormalities of the intracranial arterial vasculature. SL:13 Neck wo contrast MRA MRA OF THE NECK: 11/26/2013 [facility] TECHNIQUE: 2-D and 3-D [id number] acquisitions were done without contrast. MIP reconstructions were obtained. Stenosis measurements are according to NASCET criteria. FINDINGS: The cervical carotid arteries are patent without significant plaque , stenosis or evidence of dissection. The cervical vertebral arteries are patent and codominant without evidence of stenosis or dissection. Incidentally noted is a possible central and left paracentral disc protrusion at C4-C5 which may be compressing the cord. IMPRESSION: 1. No significant MRA abnormalities of the cervical carotid or vertebral arteries. 2. Possible C4-C5 disc protrusion with cord impingement. MRI of the cervical spine is recommended for further evaluation. SL:13 Brain wo contrast MRI BRAIN WITHOUT CONTRAST 11/26/2013 [facility] MRI INDICATION: Facial numbness COMPARISON: CT brain 11/26/2013 DISCUSSION: The white matter is normal in signal. There is no evidence of acute vascular insults, space occupying lesions, hemorrhage, hydrocephalus, midline shift, or extra-axial collections. No cortical based, simental prasellar, craniocervical, or bone marrow abnormalities are seen. IMPRESSION: No intracranial abnormalities are visualized. SL: [address] CT BRAIN WITHOUT CONTRAST 11/26/2013 [facility] INDICATION: Hemihypoesthesia COMPARISON: None FINDINGS: There is no evidence of acute vascular insults, space occupying lesions, hemorrhage, hydrocephalus, midline shift, or extra-axial collections. The calvarium is intact. IMPRESSION: No acute intracranial abnormalities are visualized. SL: 16 Chest 1view Examination: Chest x-ray, single view 11/26/2013 [facility] History: Chest pain Comparison: 12/04/2012 Findings: The lungs are clear and without focal consolidation. The cardiomediastinal silhouette is within normal limits. No pleural effusion or pneumothorax is seen. The osseous structures are without focal abnormality. IMPRESSION: No acute cardiopulmonary disease. SL: 12 Consultation Notes No Data Provided for This Section Discharge Summaries No Data Provided for This Section History and Physicals No Data Provided for This Section Vital Signs Vital Sign Value Date Comments Source Temperature Oral (F) 98.0 F 07/10/2018 [facility] Systolic (mm Hg) 167 07/10/2018 [facility] Diastolic (mm Hg) 99 07/10/2018 [facility] Heart Rate 98 07/10/2018 [facility] Respitory Rate 18 07/10/2018 [facility] Systolic (mm Hg) 160 07/09/2018 [facility] Diastolic (mm Hg) 119 07/09/2018 [facility] Respitory Rate 18 07/09/2018 [facility] Heart Rate 119 07/09/2018 [facility] Height 165.1 cm 07/09/2018 [facility] BMI Calculated 36.69 07/09/2018 [facility] Weight 100 07/09/2018 [facility] Respitory Rate 18 07/09/2018 [facility] Heart Rate 123 07/09/2018 [facility] Systolic (mm Hg) 160 07/09/2018 [facility] Diastolic (mm Hg) 106 07/09/2018 [facility] Temperature Oral (F) 98.7 F 07/09/2018 [facility] Respitory Rate 20 05/17/2018 [facility] Systolic (mm Hg) 178 05/17/2018 [facility] Diastolic (mm Hg) 99 05/17/2018 [facility] Systolic (mm Hg) 188 05/17/2018 [facility] Diastolic (mm Hg) 112 05/17/2018 [facility] Respitory Rate 17 05/17/2018 [facility] Heart Rate 91 05/16/2018 [facility] Systolic (mm Hg) 180 05/16/2018 [facility] Diastolic (mm Hg) 104 05/16/2018 [facility] Respitory Rate 20 05/16/2018 [facility] Temperature Oral (F) 98.6 F 05/16/2018 [facility] Weight 100 05/16/2018 [facility] Height 165.1 cm 05/16/2018 [facility] BMI Calculated 36.69 05/16/2018 [facility] Temperature Oral (F) 98.2 F 05/16/2018 [facility] Rate 87 05/16/2018 [facility] Systolic (mm Hg) 145 04/01/2018 [facility] Diastolic (mm Hg) 92 04/01/2018 [facility] Temperature Oral (F) 98 F 04/01/2018 [facility] Respitory Rate 18 04/01/2018 [facility] Respitory Rate 18 04/01/2018 [facility] Systolic (mm Hg) 166 04/01/2018 [facility] Diastolic (mm Hg) 89 04/01/2018 [facility] BMI Calculated 35.19 04/01/2018 [facility] Height 165.1 cm 04/01/2018 [facility] Temperature Oral (F) 98.8 F 04/01/2018 [facility] Weight 95.909 04/01/2018 [facility] Systolic (mm Hg) 180 04/01/2018 [facility] Diastolic (mm Hg) 93 04/01/2018 [facility] Heart Rate 65 04/01/2018 [facility] Respitory Rate 18 04/01/2018 [facility] Heart Rate 80 03/20/2018 [facility] Systolic (mm Hg) 150 03/20/2018 [facility] Diastolic (mm Hg) 80 03/20/2018 [facility] Respitory Rate 19 03/20/2018 [facility] Temperature Oral (F) 97.9 F 03/20/2018 [facility] Temperature Oral (F) 98 F 03/20/2018 [facility] Heart Rate 82 03/20/2018 [facility] Systolic (mm Hg) 142 03/20/2018 [facility] Respitory Rate 18 03/20/2018 [facility] Diastolic (mm Hg) 81 03/20/2018 [facility] Weight 100.909 03/19/2018 [facility] Temperature Oral (F) 98 F 03/19/2018 [facility] Height 165.1 cm 03/19/2018 [facility] BMI Calculated 37.02 03/19/2018 [facility] Respitory Rate 16 03/19/2018 [facility] Systolic (mm Hg) 133 03/19/2018 [facility] Diastolic (mm Hg) 82 03/19/2018 [facility] Heart Rate 78 03/19/2018 [facility] Heart Rate 85 03/13/2018 [facility] Respitory Rate 16 03/13/2018 [facility] Temperature Oral (F) 98.8 F 03/13/2018 [facility] Systolic (mm Hg) 93 03/13/2018 [facility] Diastolic (mm Hg) 56 03/13/2018 [facility] Temperature Oral (F) 99.0 F 03/13/2018 [facility] Heart Rate 88 03/13/2018 [facility] Systolic (mm Hg) 111 03/13/2018 [facility] Diastolic (mm Hg) 65 03/13/2018 [facility] Respitory Rate 16 03/13/2018 [facility] Heart Rate 88 03/13/2018 [facility] Respitory Rate 16 03/13/2018 [facility] Temperature Oral (F) 98.4 F 03/13/2018 [facility] Systolic (mm Hg) 134 03/13/2018 [facility] Diastolic (mm Hg) 87 03/13/2018 [facility] Weight 95.909 03/10/2018 [facility] Height 165.1 cm 03/10/2018 [facility] BMI Calculated 35.19 03/10/2018 [facility] Weight 95 03/10/2018 [facility] Temperature Oral (F) 98.2 F 02/05/2018 [facility] Systolic (mm Hg) 94 02/05/2018 [facility] Diastolic (mm Hg) 59 02/05/2018 [facility] Heart Rate 65 02/05/2018 [facility] Systolic (mm Hg) 97 02/05/2018 [facility] Diastolic (mm Hg) 51 02/05/2018 [facility] Heart Rate 69 02/05/2018 [facility] Temperature Oral (F) 98.0 F 02/05/2018 [facility] Systolic (mm Hg) 91 02/05/2018 [facility] Diastolic (mm Hg) 57 02/05/2018 [facility] Heart Rate 64 02/05/2018 [facility] Temperature Oral (F) 98.2 F 02/05/2018 [facility] Respitory Rate 17 02/05/2018 [facility] Respitory Rate 16 02/05/2018 [facility] Respitory Rate 17 02/05/2018 [facility] Weight 95.909 02/04/2018 [facility] BMI Calculated 35.19 02/04/2018 [facility] Height 165.1 cm 02/04/2018 [facility] Temperature Oral (F) 98.8 F 01/06/2018 [facility] Respitory Rate 18 01/06/2018 [facility] Systolic (mm Hg) 123 01/06/2018 [facility] Diastolic (mm Hg) 80 01/06/2018 [facility] Heart Rate 98 01/06/2018 [facility] Systolic (mm Hg) 108 01/06/2018 [facility] Diastolic (mm Hg) 63 01/06/2018 [facility] Respitory Rate 18 01/06/2018 [facility] Heart Rate 100 01/06/2018 [facility] Systolic (mm Hg) 110 01/06/2018 [facility] Diastolic (mm Hg) 60 01/06/2018 [facility] Heart Rate 108 01/06/2018 [facility] Respitory Rate 18 01/06/2018 [facility] Temperature Oral (F) 98.9 F 01/06/2018 [facility] Weight 222 10/30/2017 [facility] Height 65 10/30/2017 [facility] Heart Rate 84 10/30/2017 [facility] Diastolic (mm Hg) 88 10/30/2017 [facility] Systolic (mm Hg) 136 10/30/2017 [facility] Weight 231.2 10/20/2017 [facility] Height 65 10/20/2017 [facility] Heart Rate 92 10/20/2017 [facility] Diastolic (mm Hg) 68 10/20/2017 [facility] Systolic (mm Hg) 122 10/20/2017 [facility] Temperature Oral (F) 98.9 F 10/15/2017 [facility] Systolic (mm Hg) 162 10/15/2017 [facility] Diastolic (mm Hg) 84 10/15/2017 [facility] Respitory Rate 17 10/15/2017 [facility] Heart Rate 90 10/15/2017 [facility] Heart Rate 91 10/15/2017 [facility] Respitory Rate 18 10/15/2017 [facility] Systolic (mm Hg) 161 10/15/2017 [facility] Diastolic (mm Hg) 78 10/15/2017 [facility] Temperature Oral (F) 97.9 F 10/15/2017 [facility] Systolic (mm Hg) 145 10/15/2017 [facility] Diastolic (mm Hg) 80 10/15/2017 [facility] Heart Rate 94 10/15/2017 [facility] Respitory Rate 17 10/15/2017 [facility] Temperature Oral (F) 98.4 F 10/15/2017 [facility] BMI Calculated 35.52 10/15/2017 [facility] Height 165.1 cm 10/15/2017 [facility] Weight 96.818 10/15/2017 [facility] Weight 96.818 10/14/2017 [facility] BMI Calculated 35.52 10/14/2017 [facility] Height 165.1 cm 10/14/2017 [facility] Systolic (mm Hg) 160 09/22/2017 [facility] Diastolic (mm Hg) 89 09/22/2017 [facility] Systolic (mm Hg) 129 09/22/2017 [facility] Diastolic (mm Hg) 76 09/22/2017 [facility] Respitory Rate 12 09/22/2017 [facility] Systolic (mm Hg) 125 09/22/2017 [facility] Diastolic (mm Hg) 91 09/22/2017 [facility] Respitory Rate 16 09/22/2017 [facility] Respitory Rate 18 09/22/2017 [facility] Weight 105.009 09/21/2017 [facility] BMI Calculated 38.52 09/21/2017 [facility] Height 165.1 cm 09/21/2017 [facility] Weight 95.909 09/21/2017 [facility] Height 165.1 cm 09/21/2017 [facility] BMI Calculated 35.19 09/21/2017 [facility] Respitory Rate 20 09/21/2017 [facility] Systolic (mm Hg) 160 09/21/2017 [facility] Diastolic (mm Hg) 97 09/21/2017 [facility] Heart Rate 93 09/20/2017 [facility] Respitory Rate 18 09/20/2017 [facility] Systolic (mm Hg) 170 09/20/2017 [facility] Diastolic (mm Hg) 98 09/20/2017 [facility] Weight 95.909 09/20/2017 [facility] BMI Calculated 35.19 09/20/2017 [facility] Respitory Rate 20 09/20/2017 [facility] Heart Rate 111 09/20/2017 [facility] Systolic (mm Hg) 190 09/20/2017 [facility] Diastolic (mm Hg) 98 09/20/2017 [facility] Temperature Oral (F) 99 F 09/20/2017 [facility] Height 165.1 cm 09/20/2017 [facility] Heart Rate 82 08/30/2017 [facility] Respitory Rate 18 08/30/2017 [facility] Systolic (mm Hg) 131 08/30/2017 [facility] Diastolic (mm Hg) 83 08/30/2017 [facility] Temperature Oral (F) 98.6 F 08/30/2017 [facility] Systolic (mm Hg) 118 08/30/2017 [facility] Diastolic (mm Hg) 72 08/30/2017 [facility] Respitory Rate 17 08/30/2017 [facility] Heart Rate 73 08/30/2017 [facility] Temperature Oral (F) 97.9 F 08/30/2017 [facility] Respitory Rate 18 08/30/2017 [facility] Temperature Oral (F) 98.4 F 08/30/2017 [facility] Systolic (mm Hg) 150 08/30/2017 [facility] Diastolic (mm Hg) 94 08/30/2017 [facility] Heart Rate 75 08/30/2017 [facility] Height 165.1 cm 08/30/2017 [facility] Weight 100.455 08/30/2017 [facility] BMI Calculated 36.85 08/30/2017 [facility] Weight 80.455 08/29/2017 [facility] Weight 220 07/31/2017 [facility] Height 65 07/31/2017 [facility] Heart Rate 76 07/31/2017 [facility] Diastolic (mm Hg) 110 07/31/2017 [facility] Systolic (mm Hg) 200 07/31/2017 [facility] Weight 220 07/12/2017 [facility] Height 65 07/12/2017 [facility] Heart Rate 76 07/12/2017 [facility] Diastolic (mm Hg) 64 07/12/2017 [facility] Systolic (mm Hg) 136 07/12/2017 [facility] Diastolic (mm Hg) 70 06/27/2017 [facility] Systolic (mm Hg) 130 06/27/2017 [facility] Height 65 06/27/2017 [facility] Heart Rate 90 06/27/2017 [facility] Temperature Oral (F) 98.0 F 08/10/2016 [facility] Systolic (mm Hg) 175 08/10/2016 [facility] Diastolic (mm Hg) 84 08/10/2016 [facility] Heart Rate 64 08/10/2016 [facility] Respitory Rate 20 08/10/2016 [facility] BMI Calculated 29.52 08/10/2016 [facility] Weight 80.455 08/10/2016 [facility] Height 165.1 cm 08/10/2016 [facility] Respitory Rate 18 08/10/2016 [facility] Temperature Oral (F) 98.2 F 08/10/2016 [facility] Systolic (mm Hg) 224 08/10/2016 [facility] Diastolic (mm Hg) 95 08/10/2016 [facility] Heart Rate 58 08/10/2016 [facility] Systolic (mm Hg) 174 04/23/2016 [facility] Diastolic (mm Hg) 95 04/23/2016 [facility] Respitory Rate 18 04/23/2016 [facility] Respitory Rate 11 04/23/2016 [facility] Temperature Oral (F) 98.1 F 04/22/2016 [facility] Heart Rate 64 04/22/2016 [facility] Respitory Rate 18 04/22/2016 [facility] Systolic (mm Hg) 197 04/22/2016 [facility] Diastolic (mm Hg) 116 04/22/2016 [facility] BMI Calculated 34.02 04/22/2016 [facility] Height 165.1 cm 04/22/2016 [facility] Weight 92.727 04/22/2016 [facility] Systolic (mm Hg) 120 10/16/2015 [facility] Diastolic (mm Hg) 66 10/16/2015 [facility] Temperature Oral (F) 98.2 F 10/16/2015 [facility] Respitory Rate 16 10/16/2015 [facility] Heart Rate 64 10/16/2015 [facility] Systolic (mm Hg) 138 10/16/2015 [facility] Diastolic (mm Hg) 85 10/16/2015 [facility] Respitory Rate 15 10/16/2015 [facility] Heart Rate 59 10/16/2015 [facility] Weight 100 10/16/2015 [facility] BMI Calculated 36.69 10/16/2015 [facility] Height 165.1 cm 10/16/2015 [facility] Systolic (mm Hg) 120 10/16/2015 [facility] Diastolic (mm Hg) 78 10/16/2015 [facility] Heart Rate 74 10/16/2015 [facility] Respitory Rate 20 10/16/2015 [facility] Temperature Oral (F) 98.4 F 10/16/2015 [facility] Systolic (mm Hg) 109 08/17/2015 [facility] Diastolic (mm Hg) 69 08/17/2015 [facility] Respitory Rate 16 08/17/2015 [facility] Heart Rate 54 08/17/2015 [facility] Temperature Oral (F) 98.7 F 08/17/2015 [facility] Heart Rate 59 08/17/2015 [facility] Systolic (mm Hg) 116 08/17/2015 [facility] Diastolic (mm Hg) 77 08/17/2015 [facility] Respitory Rate 18 08/17/2015 [facility] Temperature Oral (F) 97.9 F 08/17/2015 [facility] Temperature Oral (F) 98 F 08/17/2015 [facility] Heart Rate 56 08/17/2015 [facility] Respitory Rate 18 08/17/2015 [facility] Systolic (mm Hg) 116 08/17/2015 [facility] Diastolic (mm Hg) 70 08/17/2015 [facility] BMI Calculated 36.69 08/17/2015 [facility] Height 165.1 cm 08/17/2015 [facility] Weight 100 08/17/2015 [facility] Weight 100 08/16/2015 [facility] BMI Calculated 36.69 08/16/2015 [facility] Height 165.1 cm 08/16/2015 [facility] Heart Rate 65 06/06/2015 [facility] Respitory Rate 18 06/06/2015 [facility] Temperature Oral (F) 97.6 F 06/06/2015 [facility] Systolic (mm Hg) 158 06/06/2015 [facility] Diastolic (mm Hg) 97 06/06/2015 [facility] Heart Rate 67 06/06/2015 [facility] Respitory Rate 18 06/06/2015 [facility] Systolic (mm Hg) 143 06/06/2015 [facility] Diastolic (mm Hg) 90 06/06/2015 [facility] Temperature Oral (F) 97.7 F 06/06/2015 [facility] Heart Rate 58 06/06/2015 [facility] Temperature Oral (F) 98.1 F 06/06/2015 [facility] Systolic (mm Hg) 120 06/06/2015 [facility] Diastolic (mm Hg) 74 06/06/2015 [facility] Respitory Rate 18 06/06/2015 [facility] Weight 97.727 06/03/2015 [facility] Height 165.1 cm 06/03/2015 [facility] BMI Calculated 35.85 06/03/2015 [facility] Systolic (mm Hg) 118 05/15/2015 [facility] Diastolic (mm Hg) 77 05/15/2015 [facility] Respitory Rate 18 05/15/2015 [facility] Heart Rate 66 05/15/2015 [facility] Temperature Oral (F) 98.2 F 05/15/2015 [facility] Respitory Rate 18 05/15/2015 [facility] Systolic (mm Hg) 117 05/15/2015 [facility] Diastolic (mm Hg) 76 05/15/2015 [facility] Temperature Oral (F) 97.8 F 05/15/2015 [facility] Heart Rate 55 05/15/2015 [facility] Temperature Oral (F) 97.8 F 05/15/2015 [facility] Systolic (mm Hg) 99 05/15/2015 [facility] Diastolic (mm Hg) 63 05/15/2015 [facility] Heart Rate 69 05/15/2015 [facility] Respitory Rate 18 05/15/2015 [facility] Height 165.1 cm 05/14/2015 [facility] Weight 97.727 05/13/2015 [facility] BMI Calculated 35.85 05/13/2015 [facility] Height 165.1 cm 05/13/2015 [facility] Heart Rate 99 05/03/2015 [facility] Respitory Rate 18 05/03/2015 [facility] Systolic (mm Hg) 146 05/03/2015 [facility] Diastolic (mm Hg) 85 05/03/2015 [facility] Temperature Oral (F) 98.2 F 05/03/2015 [facility] Temperature Oral (F) 97.5 F 05/03/2015 [facility] Heart Rate 67 05/03/2015 [facility] Respitory Rate 18 05/03/2015 [facility] Systolic (mm Hg) 146 05/03/2015 [facility] Diastolic (mm Hg) 90 05/03/2015 [facility] Temperature Oral (F) 97.9 F 05/03/2015 [facility] Systolic (mm Hg) 126 05/03/2015 [facility] Diastolic (mm Hg) 80 05/03/2015 [facility] Heart Rate 76 05/03/2015 [facility] Respitory Rate 18 05/03/2015 [facility] BMI Calculated 36.52 05/01/2015 [facility] Weight 99.545 05/01/2015 [facility] Height 165.1 cm 05/01/2015 [facility] BMI Calculated 36.52 05/01/2015 [facility] Weight 99.545 05/01/2015 [facility] Height 165.1 cm 05/01/2015 [facility] Heart Rate 66 04/10/2015 [facility] Respitory Rate 18 04/10/2015 [facility] Temperature Oral (F) 98.8 F 04/10/2015 [facility] Systolic (mm Hg) 141 04/10/2015 [facility] Diastolic (mm Hg) 86 04/10/2015 [facility] Respitory Rate 18 04/10/2015 [facility] Systolic (mm Hg) 150 04/10/2015 [facility] Diastolic (mm Hg) 76 04/10/2015 [facility] Heart Rate 55 04/10/2015 [facility] Temperature Oral (F) 97.9 F 04/10/2015 [facility] Respitory Rate 18 04/10/2015 [facility] Systolic (mm Hg) 119 04/10/2015 [facility] Diastolic (mm Hg) 76 04/10/2015 [facility] Temperature Oral (F) 97.8 F 04/10/2015 [facility] Heart Rate 66 04/10/2015 [facility] Height 165.1 cm 04/09/2015 [facility] Weight 99.545 04/09/2015 [facility] BMI Calculated 36.52 04/09/2015 [facility] Weight 99.545 04/09/2015 [facility] BMI Calculated 36.52 04/09/2015 [facility] Height 165.1 cm 04/09/2015 [facility] Systolic (mm Hg) 124 03/14/2015 [facility] Diastolic (mm Hg) 83 03/14/2015 [facility] Temperature Oral (F) 100.6 F 03/14/2015 [facility] Heart Rate 102 03/14/2015 [facility] Heart Rate 108 03/14/2015 [facility] Respitory Rate 18 03/14/2015 [facility] Systolic (mm Hg) 126 03/14/2015 [facility] Diastolic (mm Hg) 83 03/14/2015 [facility] Temperature Oral (F) 99.9 F 03/14/2015 [facility] Temperature Oral (F) 103.2 F 03/14/2015 [facility] Weight 99.545 03/14/2015 [facility] BMI Calculated 36.52 03/14/2015 [facility] Height 165.1 cm 03/14/2015 [facility] Heart Rate 110 03/14/2015 [facility] Respitory Rate 20 03/14/2015 [facility] Systolic (mm Hg) 161 03/14/2015 [facility] Diastolic (mm Hg) 96 03/14/2015 [facility] Temperature Oral (F) 97.9 F 12/20/2014 [facility] Respitory Rate 17 12/20/2014 [facility] Heart Rate 76 12/20/2014 [facility] Systolic (mm Hg) 135 12/20/2014 [facility] Diastolic (mm Hg) 83 12/20/2014 [facility] Systolic (mm Hg) 141 12/20/2014 [facility] Diastolic (mm Hg) 89 12/20/2014 [facility] Heart Rate 74 12/20/2014 [facility] Temperature Oral (F) 98 F 12/20/2014 [facility] Respitory Rate 18 12/20/2014 [facility] Diastolic (mm Hg) 73 12/20/2014 [facility] Systolic (mm Hg) 114 12/20/2014 [facility] Heart Rate 62 12/20/2014 [facility] Respitory Rate 18 12/20/2014 [facility] Temperature Oral (F) 98.6 F 12/20/2014 [facility] Weight 102.273 12/18/2014 [facility] Height 165.1 cm 12/18/2014 [facility] BMI Calculated 37.52 12/18/2014 [facility] Height 165.1 cm 12/18/2014 [facility] Weight 102.273 12/18/2014 [facility] BMI Calculated 37.52 12/18/2014 [facility] Weight 104.545 12/18/2014 [facility] BMI Calculated 38.35 12/18/2014 [facility] Height 165.1 cm 12/18/2014 [facility] Heart Rate 96 08/04/2014 [facility] Systolic (mm Hg) 118 08/04/2014 [facility] Diastolic (mm Hg) 75 08/04/2014 [facility] Temperature Oral (F) 98.1 F 08/04/2014 [facility] Respitory Rate 16 08/04/2014 [facility] Systolic (mm Hg) 134 08/04/2014 [facility] Diastolic (mm Hg) 79 08/04/2014 [facility] Heart Rate 88 08/04/2014 [facility] Heart Rate 94 08/04/2014 [facility] Systolic (mm Hg) 133 08/04/2014 [facility] Diastolic (mm Hg) 80 08/04/2014 [facility] Temperature Oral (F) 98.2 F 08/04/2014 [facility] Respitory Rate 16 08/04/2014 [facility] Temperature Oral (F) 97.7 F 08/04/2014 [facility] Respitory Rate 16 08/04/2014 [facility] Height 165.1 cm 08/01/2014 [facility] Weight 106.364 08/01/2014 [facility] BMI Calculated 39.02 08/01/2014 [facility] Diastolic (mm Hg) 81 05/06/2014 [facility] Systolic (mm Hg) 124 05/06/2014 [facility] Respitory Rate 20 05/06/2014 [facility] Heart Rate 79 05/06/2014 [facility] Temperature Oral (F) 98.2 F 05/06/2014 [facility] Temperature Oral (F) 97.9 F 05/06/2014 [facility] Heart Rate 80 05/06/2014 [facility] Respitory Rate 20 05/06/2014 [facility] Diastolic (mm Hg) 88 05/06/2014 [facility] Systolic (mm Hg) 115 05/06/2014 [facility] Diastolic (mm Hg) 72 05/06/2014 [facility] Systolic (mm Hg) 113 05/06/2014 [facility] Heart Rate 80 05/06/2014 [facility] Respitory Rate 20 05/06/2014 [facility] Temperature Oral (F) 97.9 F 05/06/2014 [facility] Weight 99.091 05/05/2014 [facility] Height 165.1 cm 05/05/2014 [facility] BMI Calculated 36.35 05/05/2014 [facility] Diastolic (mm Hg) 80 03/06/2014 [facility] Systolic (mm Hg) 121 03/06/2014 [facility] Heart Rate 69 03/06/2014 [facility] Respitory Rate 16 03/06/2014 [facility] Temperature Oral (F) 97.7 F 03/06/2014 [facility] Height 165.1 cm 03/06/2014 [facility] Diastolic (mm Hg) 89 03/06/2014 [facility] Systolic (mm Hg) 135 03/06/2014 [facility] Respitory Rate 16 03/06/2014 [facility] Heart Rate 58 03/06/2014 [facility] Temperature Oral (F) 97.9 F 03/06/2014 [facility] Systolic (mm Hg) 135 03/06/2014 [facility] Diastolic (mm Hg) 87 03/06/2014 [facility] Heart Rate 75 03/06/2014 [facility] Temperature Oral (F) 97.8 F 03/06/2014 [facility] Respitory Rate 15 03/06/2014 [facility] Height 165.1 cm 03/06/2014 [facility] BMI Calculated 36.69 03/06/2014 [facility] Weight 100 03/06/2014 [facility] Diastolic (mm Hg) 88 02/06/2014 [facility] Systolic (mm Hg) 122 02/06/2014 [facility] Temperature Oral (F) 97.8 F 02/06/2014 [facility] Respitory Rate 16 02/06/2014 [facility] Heart Rate 67 02/06/2014 [facility] Temperature Oral (F) 97.7 F 02/06/2014 [facility] Heart Rate 69 02/06/2014 [facility] Diastolic (mm Hg) 78 02/06/2014 [facility] Respitory Rate 18 02/06/2014 [facility] Systolic (mm Hg) 119 02/06/2014 [facility] Diastolic (mm Hg) 74 02/06/2014 [facility] Systolic (mm Hg) 112 02/06/2014 [facility] Temperature Oral (F) 98.3 F 02/06/2014 [facility] Respitory Rate 18 02/06/2014 [facility] Heart Rate 85 02/06/2014 [facility] Weight 100.227 02/04/2014 [facility] Height 165.1 cm 02/04/2014 [facility] BMI Calculated 36.77 02/04/2014 [facility] Weight 99.545 02/03/2014 [facility] Height 165.1 cm 02/03/2014 [facility] BMI Calculated 36.52 02/03/2014 [facility] Diastolic (mm Hg) 76 01/09/2014 [facility] Respitory Rate 18 01/09/2014 [facility] Systolic (mm Hg) 138 01/09/2014 [facility] Heart Rate 85 01/09/2014 [facility] Temperature Oral (F) 98.4 F 01/09/2014 [facility] Height 165.1 cm 01/09/2014 [facility] Weight 100.455 01/09/2014 [facility] BMI Calculated 36.85 01/09/2014 [facility] Temperature Oral (F) 98.5 F 01/09/2014 [facility] Diastolic (mm Hg) 95 01/09/2014 [facility] Systolic (mm Hg) 136 01/09/2014 [facility] Heart Rate 86 01/09/2014 [facility] Respitory Rate 18 01/09/2014 [facility] Systolic (mm Hg) 135 11/30/2013 [facility] Respitory Rate 18 11/30/2013 [facility] Heart Rate 91 11/30/2013 [facility] Temperature Oral (F) 98.5 F 11/30/2013 [facility] Diastolic (mm Hg) 92 11/30/2013 [facility] Systolic (mm Hg) 119 11/30/2013 [facility] Diastolic (mm Hg) 77 11/30/2013 [facility] Temperature Oral (F) 97.8 F 11/30/2013 [facility] Heart Rate 96 11/30/2013 [facility] Respitory Rate 18 11/30/2013 [facility] Diastolic (mm Hg) 75 11/30/2013 [facility] Systolic (mm Hg) 117 11/30/2013 [facility] Respitory Rate 16 11/30/2013 [facility] Heart Rate 78 11/30/2013 [facility] Temperature Oral (F) 98 F 11/30/2013 [facility] Weight 103.636 11/29/2013 [facility] Height 165.1 cm 11/26/2013 [facility] BMI Calculated 38.02 11/26/2013 [facility] Weight 103.636 11/26/2013 [facility] Weight 100.455 12/04/2012 [facility] Height 165.1 cm 12/04/2012 [facility] Encounters Location Location Encounter Encounter Reason Attending ADM DC Status Source Details Type Number For Provider Date Date Visit Emergency [id number] LEG SHELISE 12/04 12/05 Active [facility] 0 PAIN FAULKNER [facility] Inpatient [id number] Enayet 11/26 11/30 [facility] 1 [facility] Emergency [id number] [facility]/09 [facility] [place] [facility] [place] [facility] Inpatient [id number] Enayet 02/03 02/06 [facility] 3 Rahi [facility] OBS [id number] Alvarado 03/06 03/07 [facility] 4 Tayyan /2013 [facility] EC Emergency [id number] Cat Vann 05/05 05/06 [place] [facility] Inpatient [id number] Enayet 08/01 08/04 [facility] [place] [facility] Rahim /2014 [facility] Inpatient [id number] Avtar Dong 12/18 12/20 [facility] 7 Vann [facility] EC Emergency [id number] Nadim Pentecostal 03/14 03/14 [place] [facility] OBS [id number] Arcadio Andre 04/09 04/10 [facility] Inpatient [id number] Davin 05/01 05/03 [facility] 0 Teqwimua /2015 [facility] Inpatient [id number] Davin 05/13 05/15 [facility] [place] 1 T[place] [facility] OBS [id number] Dian 06/03 06/06 [facility] 2 Beth [facility] OBS [id number] Nishee 08/15 08/16 [facility] 3 Tiago [facility] EC Emergency [id number] Neto 10/15 10/15 [facility] Emergency [id number] Raven Miller 04/22 04/23 [facility] [id number] Matteo 08/10 08/10 [facility] 6 Nanda [facility] Observation [id number] Nisheeth 08/29 08/30 [facility] 7 Tiago [facility] Emergency [id number] Nate 09/20 09/21 [facility] 8 Dilan [facility] Inpatient [id number] Shan 09/21 09/22 [place] [facility] 0 Alda Jr /2017 [facility] Observation [id number] 10/14 10/15 [facility] 9 [facility] Emergency [id number] Rhianna 01/06 01/06 [facility] 0 Tonny-A [facility] Inpatient [id number] Berto 02/03 02/05 [facility] 1 Maximilian [facility] Inpatient [id number] Rogerio 03/10 03/13 [place] 2 [place] [facility] Emergency [id number] Rocael 03/19 03/20 [facility] 3 Ilochonwu [facility] Emergency [id number] Angelic 04/01 04/[address] [facility] Emergency [id number] Matteo Clark 05/16 05/17 [facility] 5 [facility] [id number] Nate 07/09 07/10 Perez 6 Dilan [facility] Procedures Procedure Code Date Perfomer Comments [place] [id number] [facility] lumbar injection, [address] [place] [address] including radiological supervision and interpretation; 2 or more regions (eg, lumbar/thoracic, cervical/thoracic, lumbar/cervical, lumbar/thoracic/cervi manda) Cervical [id number] anterior [facility] discectomy<sup>1</sup cerivical Medical > disectomy Center, fusion on November 27, 2013 Abdominal [id number] [facility] section [id number] [facility] Spinal fusion [id number] [facility] Tonsillectomy [id number] [facility] Cardiac [id number] [facility] catheterization [facility] Skin of head and/or [id number] [facility] neck reconstruction [facility] Stent [id number] cardiac x 2 [facility] placement<sup>2</sup> Medical [place] Assessment and Plan Assessment and Plan Date Source Extracted from:Title: Clinical Document 03/13/2018 [facility] Author: Charan Connolly MD Date: 03/13/18 Hospitalist Discharge Note [facility] Charan Connolly MD ADMIT DATE: 03/11/2018 DISCHARGE DATE: 03/13/2018 DISCHARGE TO: Home DISCHARGE FOLLOW UP: With her PCP as an outpatient DISCHARGE DIAGNOSIS: 1. Acute thalamic capsular ischemic infarction 2. Hypertension 3. Hyperlipidemia 4. Diabetes mellitus type 2 CONSULTATIONS: 1. Cardiology- Dr. Ryan 2. Neurology- Dr. Bray 3. Dr. Villarreal- Rehab Medicine PROCEDURES: None PERTINENT TESTS: CT of the brain acute right thalamocapsular lacunar infarct HOSPITAL COURSE: Ms. jane is a 47-year-old female with a history of hyperlipidemia, hypertension, diabetes mellitus who initially presented to [facility] complaining of chest pain. An acute cardiac workup was i nitiated. She was also noted to have left-sided facial numbness and a CT of the brain was ordered. This reviewed an acute ischemic stroke. Neurologist also consulted and the patient was kept on aspir in and Plavix. She is additionally maintained on statin therapy. The patient while here did improve clinically. She is evaluated physical therapy as well as rehab medicine who recommended is a good t herapy as an outpatient. She is clinically appropriate for discharge home. I have stressed to her stroke risk factor management. She is agreeable and is clinically prepped for discharge home. On the day of discharge the patient denied any acute complaints. A full 14 point review system was performed and was negative. GENERAL: In no apparent distress at this time. HEENT: EOMI. NECK: Supple. No jugular venous distention or bruits. CARDIOVASCULAR: Regular rate and rhythm, S1, S2 positive. LUNGS: Clear to auscultation bilateral. GASTROINTESTINAL: Soft, nontender, nondistended, positive bowel sounds. EXTREMITIES: No clubbing, cyanosis or edema. BACK: Normal inspection NEUROLOGICAL: Intact. No gross deficits noted. SKIN: no rashes noted. PSYCH: Awake, alert, oriented x4 She will be discharged home in today in stable condition DISCHARGE NOTE: Restrictions: None Activity: as tolerated Diet: Diabetic Code Status: Full Medications: see d/c kevin HURTADO time: 36 min Extracted from:Title: Clinical Document Author: Jose Prado MD Date: 03/10/18 [facility] Initial Cardiology H&P Note Chief Complaint: Chest pain HPI: 47-year-old female with history of CAD with history of ostial LAD stents in 2016, diabetes, hyperlipidemia, hypertension, obesity, chronic back pain, who was recently here in mid January 2018 with unsta ble angina, and comes back to the hospital with complaints of chest pain. She has been admitted for chest pain observation. Back in mid January 2018, the patient did have a heart catheterization by Dr Dahlia Dwyer in our group. The heart catheterization showed patent mid and proximal LAD stents, 60% distal left circumflex stenosis at bifurcation with large OM branch, mid third 50% RCA stenosis and a 50% ostial PDA stenosis. Medical management was advised. In the ER, her troponins have been negative x2. The patient's EKG shows sinus rhythm without any acute ST or T wave changes suggestive of ischemia. At home, the patient takes Plavix 25 mg, Lipitor 80 mg, Lasix 20 mg p.o. daily , aspirin 81 mg, lisinopril 40 mg, and insulin. During her last admission, she was also on Toprol-XL 25 mg and isosorbide 120 mg. It is unclear if she is taking these medications. In regards to her symptoms, her main complaints which brought her over to the hospital where chest pain, back pain, and left-sided facial numbness. The symptoms have been occurring for about 2 days or so. She says her chest pain and back pain are much better however her left- sided facial numbness still persists. She says her blood pressure has been significant elevated at home with her diastolic pr essures over 100. She reports taking all of her meds every day. She does have chronic back pain, however she says this pain is different and felt deeper. REVIEW OF SYSTEMS: CONSTITUTIONAL: No fever. No chills. No dizziness. No weakness. EYES: No pain, erythema, or discharge. No blurring of vision. EAR, NOSE AND THROAT: No sore throat, URI symptoms. No epistaxis. No tinnitus. CARDIOVASCULAR: + chest pain. No palpitations. No lower extremity edema. RESPIRATORY: No shortness of breath, cough, pain with respiration, or pleuritic chest pain. No hemoptysis. No dyspnea. No paroxysmal nocturnal dyspnea. GASTROINTESTINAL: Normal appetite. No nausea, vomiting, diarrhea. No pain. No bloating. No melena. GENITOURINARY: No frequency, urgency, nocturia. No hematuria or dysuria. MUSCULOSKELETAL: No arthralgias or myalgias. INTEGUMENTARY: No swelling. No bruising. No contusions. No abrasions. No lymphangitis. NEUROLOGIC: Per HPI PSYCHIATRIC: No confusion. METABOLIC: No fatigue. No weakness. No history of thyroid, diabetes or adrenal problems. HEMATOLOGICAL: No bleeding. No petechiae. No bruising. ALLERGY: No asthma. No urticaria. PAST MEDICAL HISTORY: Stroke CAD - Coronary artery disease Insertion of coronary artery stent PAST SURGICAL HISTORY: Spinal fusion Abdominal hysterectomy Tonsillectomy section Cervical discectomy Cardiac catheterization Skin of head and/or neck reconstruction Stent placement FAMILY HISTORY: Father: Heart attack; High blood pressure; Type 2 diabetes mellitus Mother: Rheumatoid arthritis SOCIAL HISTORY: No tobacco, alcohol, or drug abuse MEDICATIONS: See inpatient medications below Allergies: NKDA Vitals Tmp(F) Pulse BP RR SpO2 FIO2 03/10 07: 97.8 107 153/94 16 96 --- 03/10 06:30 ---- 108 167/104 18 95 --- 03/10 05:45 98.1 107 141/86 12 98 --- 03/10 04:00 ---- 99 131/80 19 96 --- 03/10 03:30 ---- 96 131/89 27 96 --- 24 Hr Tmax: 98.2F (36.78c) at 03/09 22:27 Vital Signs are the last 5 in the past 48 hours. HEENT: Neck Supple, No JVD, no carotid bruits CVS: Regular rate, Normal S1S2 no murmur LUNGS: Clear to auscultation ABD: Soft, Non-tender, + BS EXT: No ankle edema, palpable distal pulses Skin: No ulcers Neuro: Grossly non-focal Labs (Last four charted values) WBC 9.4 (MAR 10) Hgb 13.0 (MAR 10) Hct 37.7 (MAR 10) Plt 250 (MAR 10) Na 138 (MAR 10) K 3.8 (MAR 10) CO2 26 (MAR 10) Cl 99 (MAR 10) Cr 1.02 (MAR 10) BUN 10 (MAR 10) Glucose Random C 447 (MAR 10) Ca 8.7 (MAR 10) Troponin <0.02 (MAR 10) <0.02 (MAR 10) Impression: Chest pain CAD: Patent 3.5 x 12 and 3.25 x 18 proximal and mid LAD drug-eluting stent CAD: 60% distal LCx stenosis, 50% mid RCA stenosis, 50% ostial PDA stenosis LVEF 65% Poorly controlled diabetes Severe dyslipidemia Hypertension Chronic back pain Obesity Plan: The patient has been admitted for chest observation. However in addition to chest pain, the patient has been having back pain and left-sided facial numbness. Her chest pain is currently resolved. Her cardiac enzymes are normal. Her EKG does not show any acute changes. I have ordered a CTA of her chest abdomen and pelvis given her complaints of back pain which are different from her chronic back p ain. In addition, I have ordered a CT of the head given her left-sided facial numbness. This could all be in the setting of uncontrolled hypertension. I have consulted neurology. If the above workup is unremarkable, I will plan on seeing the patient home later on today. I discussed the plan in detail with the patient. All of her home meds have been reconciled. Her blood pressure will be monitor ed these medications. Plan discussed with nursing staff. 55 minutes was spent with this patient. Continuous Infusions: None Scheduled Meds (13): 03/10/18 FLUoxetine (PROzac) 40 mg PO QPM 03/11/18 OLANZapine (ZyPREXA) 10 mg PO Daily 03/10/18 aspirin (aspirin 81 mg tablet, enteric coated) 81 mg PO Daily 03/10/18 atorvastatin (Lipitor) 80 mg PO Bedtime 03/10/18 clopidogrel (Plavix) 75 mg PO Daily 03/11/18 furosemide (Lasix 20 mg oral tablet) 20 mg PO Daily 03/10/18 gabapentin (gabapentin 100 mg oral capsule) 100 mg PO TID 03/10/18 insulin aspart 30 unit SUB-Q TID-Before Meals 03/10/18 insulin glargine (insulin glargine 100 units/mL subcutaneous solution ) 35 unit SUB-Q Daily 03/10/18 isosorbide mononitrate (isosorbide mononitrate extended release) 120 mg PO QAM 03/10/18 lisinopril 40 mg PO Daily 03/10/18 metoprolol (Toprol-XL 25 mg oral tablet, extended release) 25 mg PO Daily 03/10/18 sodium chloride (Saline Flush 0.9%) 10 ml IVP Q12H Extracted from:Title: Clinical Document 02/05/2018 [facility] Author: Berto Yao MD Date: 02/05/18 Hospitalist Discharge Note [facility] Berto Yao MD Patient's cath was reviewed with hospice/home health aide today 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 Impression: CAD: Patent 3.5 x 12 and 3.25 x 18 proximal and mid LAD drug-eluting stent CAD: 60% distal LCx stenosis, 50% mid RCA stenosis, 50% ostial PDA stenosis Unstable angina LVEF 65% Poorly controlled diabetes Severe dyslipidemia Hypertension Chronic back pain Obesity Plan: Angiogram done 40 cc of contrast used Absence of significant obstructive CAD Patent LAD stents without significant in-stent restenosis Okay to DC home from CV standpoint after bed rest Continue aspirin, clopidogrel, atorvastatin at current doses Follow-up with her outpatient hospice/home health aide Subjective: Patient seen and examined. No chest pain overnight Objective Vitals Tmp(F) Pulse BP RR SpO2 FIO2 02/05 08:20 ---- --- ----- -- 95 --- 02/05 07:31 98.5 79 119/72 17 95 --- 02/05 04:00 98.7 76 133/77 20 95 --- 02/05 00:00 98 71 103/65 20 96 --- 02/04 21:51 ---- --- ----- 16 95 --- 24 Hr Tmax: 98.7F (37.06c) at 02/05 04:00 Vital Signs are the last 5 in the past 48 hours. HEENT: Neck Supple, No JVD, no carotid bruits CVS: Regular rate, Normal S1S2 no murmur LUNGS: Clear to auscultation ABD: Soft, Non-tender, + BS EXT: No ankle edema, palpable distal pulses Skin: No ulcers Neuro: Grossly non-focal Labs (Last four charted values) WBC 7.2 (FEB 03) Hgb 12.2 (FEB 03) Hct L 35.9 (FEB 03) Plt 238 (FEB 03) Na 139 (FEB 03) K 3.5 (FEB 03) CO2 L 21 (FEB 03) Cl 102 (FEB 03) Cr 1.31 (FEB 03) BUN 13 (FEB 03) Glucose Random H 337 (FEB 03) Ca L 8.2 (FEB 03) PT 13.0 (FEB 03) INR 0.98 (FEB 03) PTT 28.2 (FEB 03) Troponin <0.02 (FEB 04) <0.02 (FEB 04) <0.02 ( FEB 03) Total CK H 275 (FEB 03) Scheduled Meds (12): 02/04/18 FLUoxetine (PROzac) 40 mg PO QPM 02/04/18 OLANZapine (ZyPREXA) 10 mg PO Daily 02/04/18 aspirin (aspirin 81 mg tablet, enteric coated) 81 mg PO Daily 02/04/18 atorvastatin (Lipitor) 80 mg PO Bedtime 02/04/18 clopidogrel (Plavix) 75 mg PO Daily 02/04/18 gabapentin (gabapentin 100 mg oral capsule) 100 mg PO TID 02/04/18 insulin glargine 40 unit SUB-Q Daily 0 ml/hr 02/04/18 insulin lispro (Humalog) 30 unit SUB-Q TID-Before Meals 02/04/18 isosorbide mononitrate (Imdur) 120 mg PO QAM 02/04/18 lisinopril 40 mg PO Daily 02/04/18 metoprolol (Toprol-XL 25 mg oral tablet, extended release) 25 mg PO Daily 02/04/18 sodium chloride (Saline Flush 0.9%) 10 ml IVP Q12H Extracted from:Title: Clinical Document Author: Michael Dwyer MD Date: 02/04/18 Chief Complaint: HPI: Patient is a 47-year-old female that presented this time with complains of chest pain. She described the pain as pressuring type, triggered by physical efforts but over the last 2 days happen while at rest as well, lasting for 5 minutes and resembling the pain that she had 2 years ago when we did PCI with ostial LAD stent. She was seen by in September with complains of chest pain at that time troponin was negative and she was supposed to have outpatient MPI with her outpatient hospice/home health aide, Dr. Lawrence but failed to do so. This time EKG showed no acute ST or T wave abnormalities and she has serial negative troponins. Review of Systems General/Constitutional: Fatigue no. Weakness no. Weight gain no. Headaches no. Allergy/Immunology: Colds no. Cough no. HEENT/Neck: Dizziness no. Change in vision no. Respiratory: Chest congestion no. Cough no. Pain with breathing no. Shortness of breath no. Swelling of the legs no. Wheezing no. Cardiovascular: Chest pain y. Claudication no. Dyspnea on exertion no. Palpitations no. Gastrointestinal: Abdominal pain no. Change in bowel habits no. Constipation no. Diarrhea no. Nausea no. Hematology: Easy bleeding no. Easy bruising no. Musculoskeletal: Back pain y. Myalgias no Past medical history: Stroke CAD - Coronary artery disease Insertion of coronary artery stent Past Surgical History: Spinal fusion Abdominal hysterectomy Tonsillectomy section Cervical discectomy Cardiac catheterization Skin of head and/or neck reconstruction Stent placement Family History: Father: Heart attack; High blood pressure; Type 2 diabetes mellitus Mother: Rheumatoid arthritis Social History: Employment/School Details: Operates hazardous equipment: No. Sexual Details: Sexually active: No. Alcohol Details: Never Details: Never, Previous treatment: None. Exercise Details: Exercise duration: 30. Exercise frequency: Daily. Exercise type: physical therapy. Tobacco Details: Use: Never smoker. Tobacco smoke exposure: None. Did the Patient Smoke Cigarettes Anytime During the Last 365 Days? No. Cessation Counseling Provided? Yes. Details: Use: Never smoker. Type: Cigarettes. Tobacco smoke exposure: Lives with someone who smokes. Did the Patient Smoke Cigarettes Anytime During the Last 365 Days? No. Cessation Counseling Provided? No. Details: Use: Never smoker. Tobacco smoke exposure: None. Did the Patient Smoke Cigarettes Anytime During the Last 365 Days? No. Cessation Counseling Provided? No. Details: Use: Never smoker. Tobacco smoke exposure: None. Did the Patient Smoke Cigarettes Anytime During the Last 365 Days? No. Cessation Counseling Provided? No. Substance Abuse Details: Use: None. List of Medications: Scheduled Meds (13): 02/04/18 FLUoxetine (PROzac) 40 mg PO QPM 02/04/18 OLANZapine (ZyPREXA) 10 mg PO Daily 02/04/18 aspirin (aspirin 81 mg tablet, enteric coated) 81 mg PO Daily 02/04/18 atorvastatin (Lipitor) 80 mg PO Bedtime 02/04/18 clopidogrel (Plavix) 75 mg PO Daily 02/04/18 furosemide (Lasix 20 mg oral tablet) 20 mg PO Daily 02/04/18 gabapentin (gabapentin 100 mg oral capsule) 100 mg PO TID 02/04/18 insulin glargine 40 unit SUB-Q Daily 0 ml/hr 02/04/18 insulin lispro (Humalog) 30 unit SUB-Q TID-Before Meals 02/04/18 isosorbide mononitrate (Imdur) 120 mg PO QAM 02/04/18 lisinopril 40 mg PO Daily 02/04/18 metoprolol (Toprol-XL 25 mg oral tablet, extended release) 25 mg PO Daily 02/04/18 sodium chloride (Saline Flush 0.9%) 10 ml IVP Q12H Continuous Infusions: None Scheduled Meds (13):FLUoxetine (PROzac), OLANZapine (ZyPREXA), aspirin ( aspirin 81 mg tablet, enteric coated), atorvastatin (Lipitor), clopidogrel ( Plavix), furosemide (Lasix 20 mg oral tablet), gabapen tin (gabapentin 100 mg oral capsule), insulin glargine, insulin lispro (Humalog ), isosorbide mononitrate (Imdur), lisinopril, metoprolol (Toprol-XL 25 mg oral tablet, extended release), sodium chloride (Saline Flush 0.9%) Unscheduled Meds: None PRN Meds (7):morphine Sulfate, nitroglycerin (nitroglycerin SL Tab), nitroglycerin (Nitrostat 0.4 mg sublingual tablet), ondansetron (Zofran ODT), sodium chloride (Saline Flush 0.9%), sodium chloride (S denys Flush 0.9%), tramadol (tramadol 50 mg oral tablet) One Time Meds (3):(Completed) aspirin, (Completed) fentaNYL, (Completed) nitroglycerin (nitroglycerin 2% ointment) Continuous Infusions: None Labs (Last four charted values) WBC 7.2 (FEB 03) Hgb 12.2 (FEB 03) Hct L 35.9 (FEB 03) Plt 238 (FEB 03) Na 139 (FEB 03) K 3.5 (FEB 03) CO2 L 21 (FEB 03) Cl 102 (FEB 03) Cr 1.31 (FEB 03) BUN 13 (FEB 03) Glucose Random H 337 (FEB 03) Ca L 8.2 (FEB 03) PT 13.0 (FEB 03) INR 0.98 (FEB 03) PTT 28.2 (FEB 03) Troponin <0.02 (FEB 04) <0.02 (FEB 03) Total CK H 275 (FEB 03) Laboratory: Physical Exam: Vitals Tmp(F) Pulse BP RR SpO2 FIO2 02/04 07:52 98.5 89 133/86 17 96 --- 02/04 04:33 ---- --- ----- 18 99 --- 02/04 03:27 98.2 70 152/77 18 97 --- 02/04 00:04 98.8 66 122/75 18 97 --- 02/03 23:14 ---- 81 141/81 -- 96 --- 24 Hr Tmax: 98.8F (37.11c) at 02/04 00:04 Vital Signs are the last 5 in the past 48 hours. HEENT: Neck Supple, No JVD, no carotid bruits CVS: Regular rate, Normal S1S2 no murmur LUNGS: Clear to auscultation ABD: Soft, Non-tender, + BS EXT: No ankle edema, palpable distal pulses Skin: No ulcers Neuro: Grossly non-focal Assessment and plan: Clinical symptoms suggestive of unstable angina. She has severe CAD with ostial LAD stenosis status post PCI in 2016. She was recommended on undergoing MPI 3 months ago but failed to do so. The symptoms got worse and now happening at rest. Patient educated on the risks of coronary angiogram and possible PCI, including but not restricted to limb ischemia, myocardial infarct, stroke, bleeding and eventually . SHe agreed to proceed with coronary angiogram and possible PCI. We will plan for procedure in the morning. Keep current regimen. We will follow along List of diagnosis: Unstable angina with negative troponins CAD history with ostial LAD stents in 2016 LVEF 65% Poorly controlled diabetes Severe dyslipidemia Hypertension Chronic back pain Obesity ?? Noncompliant Extracted from:Title: General Admission H&P * Author: Sean Gleason MD Date: 02/04/18 Impression and Plan Patient is a 47-year-old female past medical history of hypertension diabetes hyperlipidemia coronary artery disease who presents with a 2-day history of chest pain. Patient does have known coronary ar xi disease and had stent placement in the past. 1. Chest pain will cardiology evaluate Will check serial cardiac enzymes Will resume previous home therapy 2. Diabetes mellitus we will place patient on insulin MPP 3. Hypertension: Patient is stable continue current therapy 4. Mild protein calorie malnutrition albumin 3.2 will have dietary evaluate patient 5. Hyperlipidemia patient with continued elevation of his lipid we will continue Lipitor 80 mg daily in addition we will have dietary evaluate 6. Disposition will place in observation status Extracted from:Title: Clinical Document 10/15/2017 [facility] Author: Pavithra Ryan MD Date: 10/15/[address] [facility] Impression: Atypical chest CAD history with prior LAD stents in 2016 LVEF 65% Poorly controlled diabetes Severe dyslipidemia Hypertension Chronic back pain Obesity Plan: She ruled out for acute coronary syndrome. At this time I would just continue her on optimal medical therapy and have her follow-up with her primary hospice/home health aide Dr. Franco, she should get a nuclear stress test as an outpatient. She has severe dyslipidemia with LDL in the 200 range. We need to be sure that she is compliant with statin. She likely should be on a medication such as repacked. I would defer this to her primary hospice/home health aide as an outpatient. Hypertension we can just increase her Toprol dose to 50 mg per No cardiac workup planned during this hospitalization. DC planning per internal medicine Subjective: Patient Seen and Examined. She denies further chest pain. She did have a headache with nitroglycerin. Her cardiac biomarkers were all been negative. She now wants to go home Objective: Telemetry NSR Vitals and Temp: Vitals Tmp(F) Pulse BP RR SpO2 FIO2 10/15 07:39 97.9 91 161/78 18 92 --- 10/15 03:08 98.4 94 145/80 17 94 --- 10/14 23:25 98.4 71 165/92 18 95 --- 10/14 19:20 98.7 71 173/99 18 95 --- 10/14 18:24 99.0 76 162/93 18 98 --- 24 Hr Tmax: 99.1F (37.28c) at 10/14 12:45 Vital Signs are the last 5 in the past 48 hours. General: Awake and Alert, NAD HEENT: Neck Supple, No JVD CVS: Regular rate, Normal S1S2 LUNGS: CTA, No rales or wheezing ABD: Soft, Non-tender, + BS EXT: No edema, 2+ pedal pulses Skin: No ulcers Neuro: Awake and Alert, Oriented x 3 Labs (Last four charted values) WBC 8.0 (OCT 14) Hgb L 11.3 (OCT 14) Hct L 34.7 (OCT 14) Plt 257 (OCT 14) Na 140 (OCT 14) K 3.8 (OCT 14) CO2 L 22 (OCT 14) Cl 105 (OCT 14) Cr 0.93 (OCT 14) BUN 15 (OCT 14) Glucose Random C 468 (OCT 14) Ca 8.6 (OCT 14) Troponin <0.02 (OCT 15) <0.02 (OCT 15) <0.02 ( OCT 14) CK MB <1.0 (OCT 15) <1.0 (OCT 15) Total CK 80 (OCT 15) 85 (OCT 15) Scheduled Meds (12): 10/15/17 FLUoxetine (PROzac) 40 mg PO QPM 10/15/17 OLANZapine (ZyPREXA) 10 mg PO Daily 10/15/17 aspirin (aspirin 81 mg tablet, enteric coated) 81 mg PO Daily 10/15/17 atorvastatin (Lipitor) 80 mg PO Bedtime 10/15/17 clopidogrel (Plavix) 75 mg PO Daily 10/15/17 furosemide (Lasix 20 mg oral tablet) 20 mg PO Daily 10/15/17 insulin glargine 30 unit SUB-Q Bedtime 0 ml/hr 10/15/17 insulin lispro (Humalog) 30 unit SUB-Q TID-Before Meals 10/15/17 isosorbide mononitrate (Imdur) 120 mg PO QAM 10/15/17 lisinopril 40 mg PO Daily 10/15/17 pregabalin 75 mg PO Q12H 10/15/17 sodium chloride (Saline Flush 0.9%) 10 ml IVP Q12H Continuous Infusions: None Extracted from:Title: Clinical Document Author: Nancie Naranjo MD Date: 10/15/17 Attending: Kecia Mars MD Service: Internal Medicine Code status: Full Code [Ordered] Reason for Admission: HYPOGLYCEMIA, HYPERGLYCEMIA, CHEST PAIN,UNSPECIFIED Working DRG: Isolation: No Isolation/Standard Precautions Consulting Physicians: Pavithra Ryan MD Office: Service: Cardiology cC: leg pain and chest pain HPI Ms. Jane present with bilat leg pain and elevated blood glucose. SHe was being treated in the ER . she noticed to have intermittent chest pain, whcih his mid sternal, and left sided, with radiating t o the left arm, with some SOB. denies any dizziness or palpitations. She reports that she currently does not have chest pain. ROS: rest 10 point ROS negative. PMH: Stroke CAD - Coronary artery disease Insertion of coronary artery stent DM HTN Hyperlipidemia PSH: Spinal fusion Abdominal hysterectomy Tonsillectomy section Cervical discectomy Cardiac catheterization Skin of head and/or neck reconstruction Stent placement FH: Father: Heart attack; High blood pressure; Type 2 diabetes mellitus Mother: Rheumatoid arthritis social: Employment/School Details: Operates hazardous equipment: No. Sexual Details: Sexually active: No. Alcohol Details: Never Details: Never, Previous treatment: None. Exercise Details: Exercise duration: 30. Exercise frequency: Daily. Exercise type: physical therapy. Tobacco Details: Use: Never smoker. Tobacco smoke exposure: None. Did the Patient Smoke Cigarettes Anytime During the Last 365 Days? No. Cessation Counseling Provided? Yes. Details: Use: Never smoker. Type: Cigarettes. Tobacco smoke exposure: Lives with someone who smokes. Did the Patient Smoke Cigarettes Anytime During the Last 365 Days? No. Cessation Counseling Provided? No. Details: Use: Never smoker. Tobacco smoke exposure: None. Did the Patient Smoke Cigarettes Anytime During the Last 365 Days? No. Cessation Counseling Provided? No. Details: Use: Never smoker. Tobacco smoke exposure: None. Did the Patient Smoke Cigarettes Anytime During the Last 365 Days? No. Cessation Counseling Provided? No. Substance Abuse Details: Use: None. allergies: Allergies (1) Active Reaction NKDA None documented vitals: Vitals Tmp(F) Pulse BP RR SpO2 FIO2 10/15 03:08 98.4 94 145/80 17 94 --- 10/14 23:25 98.4 71 165/92 18 95 --- 10/14 19:20 98.7 71 173/99 18 95 --- 10/14 18:24 99.0 76 162/93 18 98 --- 10/14 17:04 ---- 76 181/106 18 96 --- 24 Hr Tmax: 99.1F (37.28c) at 10/14 12:45 Vital Signs are the last 5 in the past 48 hours. exam: alert and oriented x 3 not in any distres, neck supple, no jvd, no neck glands NCAT, MM, pink s1s2 no m/r/g ctab abdo - soft nt nd bilat LE trace edema neuro - no focal deficit labs: [facility] A/G Ratio: 0.9 (10/14/17) AGAP: 16.8 mEq/L (10/14/17) Albumin Lvl: 3.4 g/dL Low (10/14/17) Alk Phos: 111 unit/L (10/14/17) ALT: 20 unit/L (10/14/17) AST: 7 unit/L (10/14/17) B/C Ratio: 16 (10/14/17) Basophils: 1 % (10/14/17) Basophils #: 0.1 K/CMM (10/14/17) Bili Total: 0.2 mg/dL (10/14/17) BUN: 15 mg/dL (10/14/17) Calcium Lvl: 8.6 mg/dL (10/14/17) Chloride Lvl: 105 mEq/L (10/14/17) CK MB: <1.0 (10/15/17) CK MB Index: <1.2 (10/15/17) CO2: 22 mEq/L Low (10/14/17) Creatinine Lvl: 0.93 mg/dL (10/14/17) eGFR: 84 mL/min/1.73m2 (10/14/17) Eosinophils: 7.6 % High (10/14/17) Eosinophils #: 0.6 K/CMM High (10/14/17) Globulin: 3.9 g/dL (10/14/17) Gluc POC Comment 1: Notified RN/MD (10/14/17) Gluc POC Comment 2: Cleaned Meter (10/14/17) Glucose Lvl: 468 mg/dL Critical (10/14/17) Glucose POC: 204 mg/dL High (10/14/17) Hct: 34.7 % Low (10/14/17) Hgb: 11.3 g/dL Low (10/14/17) Lymphocytes: 21.5 % (10/14/17) Lymphocytes #: 1.7 K/CMM (10/14/17) MCH: 29.8 pg (10/14/17) MCHC: 32.6 g/dL (10/14/17) MCV: 91.5 fL (10/14/17) Monocytes: 5.8 % (10/14/17) Monocytes #: 0.5 K/CMM (10/14/17) MPV: 9.9 fL (10/14/17) Platelet: 257 K/CMM (10/14/17) POC Performing Location: See Note (10/14/17) Potassium Lvl: 3.8 mEq/L (10/14/17) RBC: 3.79 M/CMM Low (10/14/17) RDW: 14.5 % (10/14/17) Segs: 64.1 % (10/14/17) Segs-Bands #: 5.1 K/CMM (10/14/17) Sodium Lvl: 140 mEq/L (10/14/17) Total CK: 85 unit/L (10/15/17) Total Protein: 7.3 g/dL (10/14/17) Troponin-I: <0.02 (10/15/17) UA Bili: NEG (10/14/17) UA Blood: NEG (10/14/17) UA Color: Colorless (10/14/17) UA Glucose: c500 Abnormal (10/14/17) UA Ketones: NEG (10/14/17) UA Leuk Est: NEG (10/14/17) UA Nitrite: NEG (10/14/17) UA pH: 5 (10/14/17) UA Protein: NEG (10/14/17) UA RBC: <1 (10/14/17) UA Spec Grav: 1.028 (10/14/17) UA Sq Epi: iOCC (10/14/17) UA Turbidity: Clear (10/14/17) UA Urobilinogen: <=1.0 (10/14/17) UA WBC: <1 (10/14/17) WBC: 8 K/CMM (10/14/17) imaging: CXR pending EKG - NSR , with prior infarct Meds: Medication List Active Medications Ordered aspirin: 81 mg, 1 tab, PO, Daily. hydrALAZINE: 20 mg, 1 mL, IVP, Q4H, PRN: Hypertension. nitroglycerin: 0.4 mg, 1 tab, SL, Q5Min, PRN: Chest Pain. sodium chloride: 10 ml, IVP, Q12H. sodium chloride: 10 ml, IVP, PRN, PRN: Line Flush. Prescribed esomeprazole: 40 mg, 1 cap, PO, Daily, 30 cap, 1 Refill(s). Documented aspirin: 81 mg, 1 tab, PO, Daily, 0 Refill(s). atorvastatin: 80 mg, 1 tab, PO, Bedtime, 0 Refill(s). clopidogrel: 75 mg, 1 tab, PO, Daily, 0 Refill(s). FLUoxetine: 40 mg, 1 cap, PO, QPM, 0 Refill(s). furosemide: 20 mg, 1 tab, PO, Daily, 0 Refill(s). gemfibrozil: 600 mg, 1 tab, PO, BID, 0 Refill(s). hydrochlorothiazide-lisinopril: 1 tab, PO, Daily, 0 Refill(s). insulin aspart: 30 unit, SUB-Q, TID-Before Meals, 0 Refill(s). insulin degludec: 40 unit, SUB-Q, Daily, 0 Refill(s). insulin detemir: 30 unit, SUB-Q, Bedtime, 0 Refill(s). isosorbide mononitrate: 120 mg, 2 tab, PO, QAM, 0 Refill(s). lisinopril: 40 mg, 1 tab, PO, Daily, 0 Refill(s). metFORMIN: 1,000 mg, 1 tab, PO, BID, 0 Refill(s). metoprolol: 25 mg, 1 tab, PO, Daily, 0 Refill(s). nitroglycerin: 0.4 mg, 1 tab, SL, Q5Min, PRN: as needed for chest pain, 0 Refill(s). OLANZapine: 10 mg, 1 tab, PO, Daily, 0 Refill(s). Medications Inactivated in the Last 72 Hours aspirin: 325 mg, 1 tab, PO, ONCE. aspirin: 325 mg, 1 tab, PYXIS, ONCE. fentaNYL: 25 microgram, 0.5 mL, IVP, ONCE. fentaNYL: 100 microgram, 2 mL, PYXIS, ONCE. Insulin regular: 10 unit, IVP, ONCE. Insulin regular: 100 unit, 1 mL, PYXIS, ONCE. labetalol: 10 mg, 2 mL, IV, ONCE. labetalol: 20 mg, 4 mL, PYXIS, ONCE. nitroglycerin: 0.5 inch, TOP, ONCE. nitroglycerin: 1 inch, PYXIS, ONCE. pneumococcal 23-valent vaccine: 0.5 mL, IM, ONCALL. Sodium Chloride 0.9% IV: 1,000 mL, IV, ONCE. Sodium Chloride 0.9% IV: 1,000 mL, PYXIS, ONCE. tramadol: 50 mg, PO, ONCE. tramadol: 50 mg, 1 tab, PYXIS, ONCE. a/p: Chest pain - r/o ACS - serial troponin - serial EKG - tele metry - seen by cardiology in ER - check cxr - if enzymes negative, outpt stress test DM - sliding scale Extracted from:Title: Clinical Document Author: Pavithra Ryan MD Date: 10/14/[address] [facility] Chief Complaint- re cp HPI-This is a 47-year-old female who is followed by cardiology Dr. Franco. She has multiple medical problems. She has known CAD and prior LAD stents around 2016. She has had multiple hospitalization s and ER visits. She actually just recently had a ER visit and at that time she had an echocardiogram that showed preserved LV function. She has diabetic gastroparesis chronic back pain and multiple b ack surgeries. She came into the hospital basically for bilateral leg pain and back pain she was also found to be severely hyperglycemic. While she was in the emergency room she did also complain of s ubsternal chest tightness. An EKG was then done that showed sinus rhythm with poor R-wave progression. Initial cardiac biomarkers normal. On my arrival she appears comfortable. Review of Systems General/Constitutional: Fatigue y Weakness no. Weight gain no. Headaches no. Allergy/Immunology: Colds no. Cough no. HEENT/Neck: Dizziness no. Change in vision no. Respiratory: Chest congestion no. Cough no. Pain with breathing no. Shortness of breath no. Swelling of the legs no. Wheezing no. Cardiovascular: Chest pain y. Claudication no. Dyspnea on exertion no. Palpitations no. Gastrointestinal: Abdominal pain y. Change in bowel habits no. Constipation no. Diarrhea no. Nausea y no. Hematology: Easy bleeding no. Easy bruising no. Musculoskeletal: Back pain y. Myalgias y Past Medical History Stroke CAD - Coronary artery disease prior LAD stent 2015 dm diabetic gastroparesis Past Surgical History Spinal fusion Abdominal hysterectomy Tonsillectomy section Cervical discectomy Cardiac catheterization Skin of head and/or neck reconstruction Stent placement Past Family History Father: Heart attack; High blood pressure; Type 2 diabetes mellitus Mother: Rheumatoid arthritis Past Social History prior smoker No alcohol or drug use Home Medications (15) Active aspirin 81 mg tablet, enteric coated 81 mg=1 tab, PO, Daily esomeprazole 40 mg oral delayed release capsule 40 mg=1 cap, PO, Daily gemfibrozil 600 mg oral tablet 600 mg=1 tab, PO, BID hydrochlorothiazide-lisinopril 25 mg-20 mg oral tablet 1 tab, PO, Daily Imdur 60 mg oral tablet, extended release 120 mg=2 tab, PO, QAM Lasix 20 mg oral tablet 20 mg=1 tab, PO, Daily Levemir FlexPen 100 units/mL subcutaneous solution 30 unit, SUB-Q, Bedtime Lipitor 80 mg oral tablet 80 mg=1 tab, PO, Bedtime metFORMIN 1000 mg oral tablet 1,000 mg=1 tab, PO, BID Nitrostat 0.4 mg sublingual tablet 0.4 mg=1 tab, PRN, SL, Q5Min NovoLOG FlexPen 100 units/mL subcutaneous solution 30 unit, SUB-Q, TID-Before Meals Plavix 75 mg oral tablet 75 mg=1 tab, PO, Daily PROzac 40 mg oral capsule 40 mg=1 cap, PO, QPM Toprol-XL 25 mg oral tablet, extended release 25 mg=1 tab, PO, Daily ZyPREXA 10 mg oral tablet 10 mg=1 tab, PO, Daily Medications Continuous Infusions: None Scheduled Meds: None Allergies: NKDA Vitals Tmp(F) Pulse BP RR SpO2 FIO2 10/14 17:04 ---- 76 181/106 18 96 --- 10/14 15:37 ---- 85 180/130 18 97 --- 10/14 14:43 ---- 80 192/105 18 96 --- 10/14 13:38 ---- 89 197/97 16 96 --- 10/14 12:45 99.1 101 210/105 18 95 --- 24 Hr Tmax: 99.1F (37.28c) at 10/14 12:45 Vital Signs are the last 5 in the past 48 hours. Physical exam General: Awake and Alert, NAD obese HEENT: Neck Supple, No JVD CVS: Regular rate, Normal S1S2 LUNGS: CTA, No rales or wheezing ABD: Soft, Non-tender, + BS EXT: No edema, 2+ pedal pulses Skin: No ulcers Neuro: Awake and Alert, Oriented x 3 Labs (Last four charted values) WBC 8.0 (OCT 14) Hgb L 11.3 (OCT 14) Hct L 34.7 (OCT 14) Plt 257 (OCT 14) Na 140 (OCT 14) K 3.8 (OCT 14) CO2 L 22 (OCT 14) Cl 105 (OCT 14) Cr 0.93 (OCT 14) BUN 15 (OCT 14) Glucose Random C 468 (OCT 14) Ca 8.6 (OCT 14) Troponin <0.02 (OCT 14) EKG NSR prior anterior infarct Echo 08/2017 1) This is a technically difficult study, definity was used to improve the delineation of the left ventricular endocardial border. 2) Both ventricles are normal in size and overall systolic function. Estimated left ventricular ejection fraction is 65-70%. There are no regional wall motion abnormalities. 3) Both atria with normal size. 4) There are no significant valvular abnormalities. Unable to calculate RVSP due to lack of TR jet. 5) There is no pericardial effusion. 6) When compared to last study dated 08/02/2014, there are no significant changes. Impression 47-year-old female with episode of chest pain, history of LAD stent back in 2016, poorly controlled diabetes, uncontrolled hypertension, obesity, chronic back and leg pain Plan Chest pain-her initial EKG shows no acute changes. Her initial cardiac biomarkers normal. She recently just had an echocardiogram. It showed normal LV function. We will just check serial cardiac enz ymes to make sure that she did not have an ischemic event. At some point she will need a nuclear stress test this likely can be done as an outpatient. Malignant hypertension-this is possibly caused by her pain. We will restart her home blood pressure medicines and give as needed hydralazine. Leg pain-this is not vascular. Her pedal pulses are 2+. May be this is related to her chronic back pain. Uncontrolled diabetes-defer treatment to internal medicine Extracted from:Title: Clinical Document 08/30/2017 [facility] Author: Michael Dwyer MD Date: 08/30/17 Chief Complaint: Chest pain HPI: Patient is a 47-year-old female with history of CAD status post proximal and ostial LAD PCI in 2016 after a normal FFR but due to recurrent chest pain repeat investigation with IVUS and subsequent drug- eluting stent implantation. Since then she failed to follow-up in the office and is now following with Dr. Franco. After the PCI she had recurrent chest pain and was treated empirically with PPI. Sin ce then she had a gastric pacemaker for gastroparesis This time she presents once again to the hospital complaining of chest pain that she describes a tightness with radiation to her back and no relationship with physical efforts. This pain improved somew hat with nitroglycerin. She has not had a stress test since her LAD PCI. At the present she is symptom-free Her EKG at this time showed poor R-wave progression in precordial leads. She had more than 2 sets of troponin within normal range.Chest x-ray showed mild bibasilar atelectasis. From a cardiac standpoint she has history of CAD status post PCI, diabetes that is poorly controlled, gastroparesis, hypertension, hyperlipidemia. She has no history of premature CAD in first-degree relatives and she is not a smoker. Review of Systems General/Constitutional: Fatigue no. Weakness no. Weight gain no. Headaches no. Allergy/Immunology: Colds no. Cough no. HEENT/Neck: Dizziness no. Change in vision no. Respiratory: Chest congestion no. Cough no. Pain with breathing no. Shortness of breath no. Swelling of the legs no. Wheezing no. Cardiovascular: Chest pain yes. Claudication no. Dyspnea on exertion no. Palpitations no. Gastrointestinal: Abdominal pain no. Change in bowel habits no. Constipation no. Diarrhea no. Nausea no. Hematology: Easy bleeding no. Easy bruising no. Musculoskeletal: Back pain y. Myalgias no Past medical history: Stroke CAD - Coronary artery disease Insertion of coronary artery stent Past Surgical History: Spinal fusion Abdominal hysterectomy Tonsillectomy section Cervical discectomy Cardiac catheterization Skin of head and/or neck reconstruction Stent placement Family History: Father: Heart attack; High blood pressure; Type 2 diabetes mellitus Mother: Rheumatoid arthritis Social History: Employment/School Details: Operates hazardous equipment: No. Sexual Details: Sexually active: No. Alcohol Details: Never Details: Never, Previous treatment: None. Exercise Details: Exercise duration: 30. Exercise frequency: Daily. Exercise type: physical therapy. Tobacco Details: Use: Never smoker. Type: Cigarettes. Tobacco smoke exposure: Lives with someone who smokes. Did the Patient Smoke Cigarettes Anytime During the Last 365 Days? No. Cessation Counseling Provided? No. Details: Use: Never smoker. Tobacco smoke exposure: None. Did the Patient Smoke Cigarettes Anytime During the Last 365 Days? No. Cessation Counseling Provided? No. Details: Use: Never smoker. Tobacco smoke exposure: None. Did the Patient Smoke Cigarettes Anytime During the Last 365 Days? No. Cessation Counseling Provided? No. Substance Abuse Details: Use: None. List of Medications: Scheduled Meds (16): 08/30/17 FLUoxetine (PROzac) 40 mg PO QPM 08/30/17 OLANZapine (ZyPREXA) 10 mg PO Daily 08/30/17 aspirin (aspirin 81 mg tablet, enteric coated) 81 mg PO Daily 08/30/17 atorvastatin (Lipitor) 80 mg PO Bedtime 08/30/17 clopidogrel (Plavix) 75 mg PO Daily 08/30/17 furosemide (Lasix 20 mg oral tablet) 20 mg PO Daily 08/30/17 gemfibrozil 600 mg PO BID 08/30/17 hydrochlorothiazide 25 mg PO Daily 08/30/17 insulin glargine 30 unit SUB-Q Bedtime 0 ml/hr 08/30/17 insulin lispro 5 unit SUB-Q TID-Before Meals 08/30/17 insulin lispro (Humalog) 30 unit SUB-Q TID-Before Meals 08/30/17 isosorbide mononitrate (Imdur) 120 mg PO QAM 08/30/17 lisinopril 20 mg PO Daily 08/30/17 metFORMIN 1,000 mg PO BID 08/30/17 metoprolol (Toprol-XL 25 mg oral tablet, extended release) 25 mg PO Daily 08/29/17 sodium chloride (Saline Flush 0.9%) 10 ml IVP Q12H Continuous Infusions: None Scheduled Meds (16):FLUoxetine (PROzac), OLANZapine (ZyPREXA), aspirin ( aspirin 81 mg tablet, enteric coated), atorvastatin (Lipitor), clopidogrel ( Plavix), furosemide (Lasix 20 mg oral tablet), gemfibr ozil, hydrochlorothiazide, insulin glargine, insulin lispro, insulin lispro ( Humalog), isosorbide mononitrate (Imdur), lisinopril, metFORMIN, metoprolol ( Toprol-XL 25 mg oral tablet, extended release), sodium chloride (Saline Flush 0.9%) Unscheduled Meds: None PRN Meds (11):Dextrose 50% in Water IV (Dextrose 50% Syringe), Dextrose 50% in Water IV (Dextrose 50% Syringe), glucagon, insulin lispro, insulin lispro, insulin lispro, insulin lispro, insulin lispro, nitroglycerin (Nitrostat 0.4 mg sublingual tablet), sodium chloride (Saline Flush 0.9%), sodium chloride (Saline Flush 0.9%) One Time Meds (5):(Completed) aspirin, (Completed) hydrALAZINE, (Completed) metoprolol (metoprolol tartrate), (Completed) morphine Sulfate, (Completed) ondansetron (Zofran) Continuous Infusions: None Labs (Last four charted values) WBC H 10.7 (AUGUST 30) 9.9 (AUGUST 29) Hgb 12.8 (AUGUST 30) 13.1 (AUGUST 29) Hct 38.5 (AUGUST 30) 39.4 (AUGUST 29) Plt 283 (AUGUST 30) 282 (AUGUST 29) Na 137 (AUGUST 30) L 134 (AUGUST 29) K 3.7 (AUGUST 30) 3.9 (AUGUST 29) CO2 30 (AUGUST 30) 25 (AUGUST 29) Cl 100 (AUGUST 30) 99 (AUGUST 29) Cr 0.83 (AUGUST 30) 1.03 (AUGUST 29) BUN 14 (AUGUST 30) 11 (AUGUST 29) Glucose Random H 379 (AUGUST 30) C 481 (AUGUST 29) Ca 9.1 (AUGUST 30) 9.4 (AUGUST 29) Troponin <0.02 (AUGUST 30) <0.02 (AUGUST 29) <0.02 ( AUGUST 29) CK MB <1.0 (AUGUST 30) <1.0 (AUGUST 29) <1.0 (AUGUST 29 ) Total CK 138 (AUGUST 30) 139 (AUGUST 29) 164 (AUGUST 29) Laboratory: Physical Exam: Vitals Tmp(F) Pulse BP RR SpO2 FIO2 08/30 07:05 98.6 82 131/83 18 96 --- 08/30 03:07 97.9 73 118/72 17 96 --- 08/29 22:56 98.4 75 150/94 18 96 --- 08/29 20:39 ---- 93 181/97 20 98 --- 08/29 17:59 ---- 96 168/97 18 96 --- 24 Hr Tmax: 99.0F (37.22c) at 08/29 13:35 Vital Signs are the last 5 in the past 48 hours. HEENT: Neck Supple, No JVD, no carotid bruits CVS: Regular rate, Normal S1S2 no murmur LUNGS: Clear to auscultation, decreased breath sounds at bases ABD: Soft, Non-tender, + BS EXT: No ankle edema, palpable distal pulses Skin: No ulcers Neuro: Grossly non-focal Assessment and plan: Patient is a 47-year-old female that underwent LAD PCI in 2015 and since then is following with Dr. Ferris at [place]. This time she presents with complaints of chest pain unrelated to physical effor ts but relieved by nitroglycerin. Her EKG shows poor R-wave progression in precordial leads with no ST or T-wave abnormalities that could be related to lead placement. Due to her underlying CAD she will need further ischemic workup can be done as an outpatient since she wants to go home. She will benefit from echocardiogram and repeat treadmill MPI. I gave her our contact information once again. But she also can follow-up with her outpatient hospice/home health aide for completion of the workup. She will also benefit from following up with her endocrinologis t for better diabetes control in treatment of hyperlipidemia Activity should be limited to no history in his efforts until stress test. Her list of medications on discharge please review reconciliation form Diet is heart healthy and diabetic diet List of diagnosis: Chest pain CAD status post proximal and ostial LAD stent 2015 Obesity Poorly controlled diabetes Gastroparesis Hypertension Hyperlipidemia Extracted from:Title: Clinical Document 06/06/2015 [facility] Author: Francesca Ordoñez MD Date: 06/06/15 [facility] Progress Note Impression: Unstable angina s/p PCI of mid and ostial LAD with MICHELINE HTN DMII Obesity Plan: IVUS showed severe mid LAD stenosis with MLA:3.9mm2 and severe ostial LAD stenosis with MLA:3.75mm2 PCI with Xience Alpine [id number] to mid LAD and 3.5x12mm to ostial LAD doing well. right groin without hematoma discussed need for dual antiplatelet therapy for at least 1 year. Risks of premature discontinuation discussed with patient in detail samples of 30 days of effient will be given. can transition over to plavix after that. Ok to d/c home today. followup with Dr. Dwyer in 2 weeks. Call office with any questions discussed with Dr. Campos Subjective: Patient seen and examined. no chest pain or shortness of breath. Objective: Vitals and Temp: Vitals Tmp(F) Pulse BP RR SpO2 FIO2 06/06 07:46 97.6 65 158/97 18 98 --- 06/06 04:05 97.7 67 143/90 18 98 --- 06/06 00:08 98.1 58 120/74 18 97 --- 06/05 23:30 ---- 62 120/79 18 --- --- 06/05 23:00 ---- 64 115/78 18 --- --- 24 Hr Tmax: 98.2F (36.78c) at 06/05 22:00 Vital Signs are the last 5 in the past 48 hours. HEENT: Neck Supple, No JVD, no carotid bruits CVS: Regular rate, Normal S1S2 no murmur rubs or gallops LUNGS: Clear to auscultation ABD: Soft, Non-tender, + BS, no bruits or organomegaly EXT: No ankle edema, palpable distal pulses; right groin without hematoma Skin: No ulcers Neuro: Grossly non-focal Labs (Last four charted values) WBC 6.9 (JUN 06) 7.4 (B 10) Hgb L 11.6 (JUN 06) 13.4 (MAY 10) Hct L 35.8 (JUN 06) 40.2 (B 10) Plt 234 (JUN 06) 276 (MAY 10) Na 138 (JUN 06) L 134 (MAY 11) L 127 (MAY 10) K 3.7 (JUN 06) 3.9 (JUN 04) 3.8 (FEB 10) CO2 L 22 (B 13) 25 (FEB 11) L 23 (FEB 10) Cl 103 (B 13) 98 (FEB 11) L 90 (FEB 10) Cr 0.57 (B 13) 0.78 (FEB 11) 1.28 (FEB 10 ) BUN 10 (B 13) 11 (FEB 11) 13 (FEB 10) Glucose Random H 308 (JUN 06) H 388 (MAY 11) C 596 ( MAY 10) Ca 8.8 (JUN 06) 8.8 (B 11) 9.1 (FEB 10) Troponin <0.02 (JUN 04) <0.02 (JUN 04) <0.02 ( MAY 10) CK MB <0.5 (JUN 04) <0.5 (MAY 10) Total CK 69 (JUN 04) 76 (JUN 04) 79 (MAY 10) Scheduled Meds (13): 06/04/15 FLUoxetine (PROzac) 40 mg PO Daily 06/04/15 OLANZapine (ZyPREXA) 10 mg PO Bedtime 06/06/15 aspirin (aspirin 81 mg tablet, enteric coated) 81 mg PO Daily 06/04/15 atorvastatin 80 mg PO Bedtime 06/04/15 famotidine (Pepcid 20 mg oral tablet) 20 mg PO Q12H 06/04/15 gemfibrozil 600 mg PO BID 06/04/15 hydrochlorothiazide (hydrochlorothiazide 25 mg oral tablet) 25 mg PO Daily 06/04/15 insulin detemir (Levemir FlexPen) 20 unit SUB-Q BID 06/04/15 isosorbide mononitrate (Imdur) 120 mg PO QAM 06/04/15 lisinopril (Prinivil) 20 mg PO Daily 06/04/15 metoprolol (metoprolol extended release) 25 mg PO Daily 06/06/15 prasugrel 10 mg PO Daily 06/04/15 sodium chloride (Saline Flush 0.9%) 10 ml IVP Q12H Continuous Infusions (1): 06/05/15 Sodium Chloride 0.9% IV 1,200 mL 1,200 mL 100 ml/hr Extracted from:Title: Clinical Document Author: Zaid Ahuja MD Date: 06/03/15 History and Physical Attending: Dian Campos MD Service: Internal Medicine Code status: None Specified=FULL CODE Reason for Admission: CHEST PAIN, ACUTE HYPERGLYCEMIA Working DRG: None Documented Isolation: None Documented Consulting Physicians: Pavithra Ryan MD Office: MSO: [id number] Service: Cardiology CC: CP HPI: This is a 44 yo w/ below PMHx who p/w 1 day h/o progressively worsening CP. Located along L side and radiates to back and L arm, described squeezing, intermittent, lasting minutes at a time. It is independent of activity or eating, nonpleuritic, nothing else aggravates or alleviates the pain. Denies heavy lifting or rigorous activity. Nausea but no vomiting, some diaphoresis. Also feels lighthead ed and has SOB that is independent of activity. 05/14 heart cath showed LAD and RCA stenosis, no stent place placed during that time PMHx: CAD HTN HLD T2DM CVA PSHx: Abdominal hysterectomy section Tonsillectomy Spinal fusion Cervical discectomy Cardiac catheterization FHx: Father: Heart attack at age 38; High blood pressure; Type 2 diabetes mellitus Mother: Rheumatoid arthritis maternal grandmother- AR at age 62 SHx: Denies T/E/D Meds: Medication List Active Medications Ordered Dextrose 50% in Water IV: 12.5 gm, 25 mL, IVP, PRN, PRN: Blood Glucose Results. Dextrose 50% in Water IV: 25 gm, 50 mL, IVP, PRN, PRN: Blood Glucose Results. glucagon: 1 mg, IM, PRN, PRN: Blood Glucose Results. sodium chloride: 10 ml, IVP, Q12H. sodium chloride: 10 ml, IVP, PRN, PRN: Line Flush. Prescribed atorvastatin: 80 mg, 1 tab, PO, Bedtime, 30 tab, 0 Refill(s). clopidogrel: 75 mg, 1 tab, PO, Daily, 30 tab, 3 Refill(s). famotidine: 20 mg, 1 tab, PO, Q12H, 60 tab, 0 Refill(s). gemfibrozil: 600 mg, 1 tab, PO, BID, 60 tab, 0 Refill(s). insulin aspart: See Special Instructions, SUB-Q, TID-Before Meals, Check blood sugar before breakfast, lunch, and dinner, and inject correction doses: Inject 3 unit if Sugar 150-199, Inject 6 units if Sugar 200-249, Inject 9 units if Sugar 250-299, Inject 12 units if Sugar 300-349, Inject 15 units if Sugar is 350 or more, 10 mL, 0 Refill(s). insulin aspart-insulin aspart protamine: 50 units, SUB-Q, BID, 10 mL , 0 Refill(s). isosorbide mononitrate: 120 mg, 2 tab, PO, QAM, 60 tab, 3 Refill(s) . lisinopril: 40 mg, 2 tab, PO, Daily, 60 tab, 3 Refill(s). metoprolol: 25 mg, 1 tab, PO, Daily, 30 tab, 0 Refill(s). Documented aspirin: 81 mg, 1 tab, PO, Daily, 0 Refill(s). FLUoxetine: 40 mg, 1 cap, PO, Daily, 0 Refill(s). hydrochlorothiazide-lisinopril: 1 tab, PO, Daily. metFORMIN: 1,000 mg, 1 tab, PO, BID, 0 Refill(s). nitroglycerin: 0.4 mg, 1 tab, SL, Q5Min, Give up to 3 doses, PRN: Chest pain. OLANZapine: 10 mg, 1 tab, PO, Bedtime, 0 Refill(s). Medications Inactivated in the Last 72 Hours aspirin: 243 mg, 3 tab, PYXIS, ONCE. aspirin: 243, CHEW, ONCE. Insulin regular: 10 unit, 0.1 mL, IVP, ONCE. Insulin regular: 100 unit, 1 mL, PYXIS, ONCE. Insulin regular: 5 unit, 0.05 mL, IV, ONCE. Insulin regular: 100 unit, 1 mL, PYXIS, ONCE. nitroglycerin: 0.4 mg, 1 tab, PYXIS, ONCE. nitroglycerin: 0.4 mg, 1 tab, SL, ONCE. sodium chloride: 10 mL, IVP, PRN, PRN: Line Flush. Sodium Chloride 0.9% IV: 1,000 mL, 1,000 ml/hr, IV, ONCE. Sodium Chloride 0.9% IV: 1,000 mL, 1,000 ml/hr, IV, ONCE. Sodium Chloride 0.9% IV: 1,000 mL, PYXIS, ONCE. Sodium Chloride 0.9% IV 1,000 mL: 1,000 ml/hr, IV, Stop: 06/03/15 18:58:00. Allergies: NKDA ROS: See HPI. All other systems reviewed by myself are negative unless noted above. Physical Exam: Vitals Tmp(F) Pulse BP RR SpO2 FIO2 06/03 21:22 ---- 76 ----- 20 96 --- 06/03 21:21 98.5 55 115/75 18 94 --- 06/03 20:28 98.1 59 104/71 10 96 --- 06/03 19:12 ---- 68 115/73 18 99 --- 06/03 18:16 98.3 83 120/82 18 97 --- 24 Hr Tmax: 98.5F (36.94c) at 06/03 21:21 Vital Signs are the last 5 in the past 48 hours. General: NAD, nontoxic appearing HEENT: NCAT, PERRL, MMM, no JVD Cardiovascular: RRR, S1S2 Respiratory: CTAB Abdomen: soft, +BS, NT/ND Extremities: no b/l LE edema Skin: no rashes Neurologic: comprehension and speech intact, CN III-XII grossly intact Musculoskeletal: symmetric strength in all extremities Rectal/: deferred Labs: 24hr Labs 06/03 2117 Glucose POC 381 H 06/03 1908 Glucose POC 358 H 06/03 1733 UA Color Colorless UA Turbidity Clear UA Spec Grav 1.018 UA pH 5.0 UA Protein Negative UA Glucose 500 UA Ketones Negative UA Bili Negative UA Blood Negative UA Urobilinogen <=1.0 UA Nitrite Negative UA Leuk Est Negative UA RBC <1 UA WBC <1 UA Sq Epi None Seen 06/03 1704 Total CK 79 Troponin-I <0.02 CK MB <0.5 CK MB Index <0.6 Sodium Lvl 127 L Potassium Lvl 3.8 Chloride Lvl 90 L CO2 23 L AGAP 17.8 Glucose Lvl 596 C Creatinine Lvl 1.28 BUN 13 B/C Ratio 10 Total Protein 8.1 Albumin Lvl 3.8 Globulin 4.3 H A/G Ratio 0.9 Calcium Lvl 9.1 ALT 38 AST 25 Alk Phos 116 Bili Total 0.4 eGFR 58 WBC 7.4 RBC 4.34 Hgb 13.4 Hct 40.2 MCV 92.7 MCH 30.8 MCHC 33.3 RDW 13.3 Platelet 276 MPV 11.1 H Segs 59.5 Monocytes 6.5 Lymphocytes 30.8 Eosinophils 1.9 Basophils 1.3 H Segs-Bands # 4.4 Lymphocytes # 2.3 Monocytes # 0.5 Eosinophils # 0.1 Basophils # 0.1 06/03 1649 Glucose POC >500 C Micro: none Imaging: CXR: No acute cardiopulmonary process noted. Allowing for differences in technique and inspiratory effort, there is no significant interval change from the previous exam, 05/13/2015. EKG: NSR, no major ST abnormalities or LBBB Assessment and Plan: 44 yo p/w CP that is similar to her admission last month. Had heart cath during that time which showed LAD and RCA disease. # ACS r/o: aspirin, telemetry, morphine/zofran/SL nitro prn, cardiology consult , c/w home cardiac meds # hypovolemic and pseudohyponatremia: insulin and iv fluids, recheck in AM # hyperglycemia w/o anion gap: SSI and iv fluids Prophylaxis: SCDs Diet: diabetic Zaid Borrerournist Extracted from:Title: Clinical Document 05/03/2015 [facility] Author: Teqwimmildred, Davin DO Date: 05/02/15 Progress Daily [facility] SUBJECTIVE Pt is still c/o left sided chest pain and tingling in her left arm. OBJECTIVE Vital Signs (last 24 hrs) Last Charted Temp Oral 98.4 DegF (MAY 02 08:00) Heart Rate Peripheral 83 bpm (MAY 02 08:00) Resp Rate 20 BRMIN (MAY 02 08:00) SBP 109 mmHg (MAY 02 08:00) DBP 69 mmHg (MAY 02 08:00) Weight 99.545 kg (MAY 01 16:49) Height 165.1 cm (MAY 01 16:49) BMI 36.52 (MAY 01 16:49) Labs (Last four charted values) WBC 9.9 (MAY 01) Hgb 14.2 (MAY 01) Hct 43.7 (MAY 01) Plt 295 (MAY 01) Na L 129 (MAY 01) K L 3.4 (MAY 01) CO2 25 (MAY 01) Cl L 93 (MAY 01) Cr 1.02 (MAY 01) BUN 8 (MAY 01) Glucose Random C 402 (MAY 01) Mg 1.9 (MAY 01) Ca 9.7 (MAY 01) PT 12.8 (MAY 01) INR 0.93 (MAY 01) PTT 24.0 (MAY 01) Troponin <0.02 (MAY 02) <0.02 (MAY 01) <0.02 ( MAY 01) CK MB 0.7 (MAY 02) 0.6 (MAY 01) 0.7 (MAY 01) Total CK 129 (MAY 02) 147 (MAY 01) H 212 (MAY 01 ) Input/Output Record In Out Bal 05/01 24hr Tot 3010 0 3010 04/30 24hr Tot 0 0 0 ASSESSMENT and EXAM Gen. Pt is AOX4 in no acute distress HEET: Normocephalic, nontraumatic. NECK: Supple, no JVD or Lymphadenopathy LUNGS: Clear on auscultation B/l with no wheezing or crackles HEART: S1, S2.RRR with no murmurs ABDOMEN: Soft, NT/ND with good BS CENTRAL NERVOUS SYSTEM: Patient moving all extremities grossly well. LOWER EXTREMITIES: No C/C/E PLAN and TREATMENT Pt admitted with atypical chest pain -Appreciated cardiology consult -Will start on Gemfibrozil for elevated lipids -Blood glucose remains elevated -Will increase insuline DIAGNOSES and PROBLEMS Atypical chest pain HLD HTN DM Morbid obesity Scheduled Meds (15):OLANZapine (ZyPREXA), aspirin (aspirin 81 mg tablet, enteric coated), atorvastatin (Lipitor), enoxaparin, famotidine (Pepcid 20 mg oral tablet), gemfibrozil, hydrochlorothiazide (hyd rochlorothiazide 25 mg oral tablet), insulin detemir (Levemir), isosorbide mononitrate (isosorbide mononitrate extended release), lisinopril (Prinivil), metFORMIN (metFORMIN 1000 mg oral tablet), metopr olol (metoprolol extended release), nitroglycerin (nitroglycerin 2% ointment), remove patch, sodium chloride (Saline Flush 0.9%) Unscheduled Meds: None PRN Meds (16):Dextrose 50% in Water IV (Dextrose 50% Syringe), Dextrose 50% in Water IV (Dextrose 50% Syringe), acetaminophen-hydrocodone ([place] 5/325 oral tablet), atropine, glucagon, insulin aspart, i nsulin aspart, insulin aspart, insulin aspart, insulin aspart, insulin aspart, insulin aspart, insulin aspart, insulin aspart, nitroglycerin (nitroglycerin SL Tab), ondansetron One Time Meds (6):(Completed) Insulin regular, (Completed) Insulin regular, ( Completed) Sodium Chloride 0.9% IV (Sodium Chloride 0.9% (Bolus) IV), (Completed ) Sodium Chloride 0.9% IV (NS (Bolus) IV), (C ompleted) Sodium Chloride 0.9% IV (NS (Bolus) IV), (Completed) aspirin Continuous Infusions (1):Sodium Chloride 0.9% IV 1,000 mL (NS 1,000 mL) Extracted from:Title: Clinical Document 12/20/2014 [facility] Author: Avtar Vann MD Date: 12/19/14 Progress Note - Daily Raffaele Vann MD [facility] SUBJECTIVE events and progress reviewed recurrent cp OBJECTIVE Vitals and Temp: Vitals Tmp(F) Pulse BP RR SpO2 FIO2 12/19 08:32 98.1 60 127/85 -- 98 --- 12/19 07:10 ---- 75 128/82 -- --- --- 12/19 05:45 97.7 59 144/86 -- 96 --- 12/19 00:22 98 66 150/81 -- 94 --- 12/18 19:48 99.0 78 110/69 16 96 --- 24 Hr Tmax: 99.0F (37.22c) at 12/18 19:48 Vital Signs are the last 5 in the past 48 hours. Input/Output Record In Out Bal 12/19 24hr Tot 10 0 10 12/18 24hr Tot 510 0 510 Scheduled Meds (12):FLUoxetine (PROzac), OLANZapine (ZyPREXA), aspirin ( aspirin 81 mg tablet, enteric coated), atorvastatin (Lipitor), furosemide ( furosemide 20 mg oral tablet), hydrochlorothiazide (hyd rochlorothiazide 25 mg oral tablet), insulin aspart (NovoLOG PenFill), insulin detemir, lisinopril (Prinivil), metFORMIN (metFORMIN 500 mg oral tablet), sodium chloride (Saline Flush 0.9%), verapamil Unscheduled Meds: None PRN Meds (9):atropine, insulin aspart, insulin aspart, insulin aspart, insulin aspart, insulin aspart, methocarbamol, nitroglycerin (nitroglycerin SL Tab), sodium chloride (Saline Flush 0.9%) One Time Meds (6):(Completed) Insulin regular, (Completed) Insulin regular, ( Completed) Sodium Chloride 0.9% IV (Sodium Chloride 0.9% (Bolus) IV), (Completed ) acetaminophen (Tylenol), (Completed) aspiri n, (Completed) nitroglycerin (nitroglycerin 2% ointment) Continuous Infusions: None Labs (Last four charted values) WBC 6.8 (DEC 19) 7.7 (DEC 18) Hgb 13.2 (DEC 19) 13.6 (DEC 18) Hct 38.6 (DEC 19) 39.8 (DEC 18) Plt 219 (DEC 19) 226 (DEC 18) Na 138 (DEC 19) L 133 (DEC 18) K 3.9 (DEC 19) 3.6 (DEC 18) CO2 25 (DEC 19) L 21 (DEC 18) Cl 103 (DEC 19) 98 (DEC 18) Cr 1.0 (DEC 19) 0.9 (DEC 18) BUN 10 (DEC 19) 9 (DEC 18) Glucose Random H 352 (DEC 19) H 385 (DEC 18) Mg L 1.5 (DEC 19) Ca 8.9 (DEC 19) 9.1 (DEC 18) Troponin <0.02 (DEC 19) <0.02 (DEC 18) <0.02 ( DEC 18) <0.02 (DEC 18) CK MB <0.5 (DEC 19) <0.5 (DEC 18) <0.5 (DEC 18 ) <0.5 (DEC 18) Total CK 72 (DEC 19) 81 (DEC 18) 83 (DEC 18) 100 (DEC 18) PHYSICAL EXAMINATION: GENERAL: sinus rhythm hemodynamically stable NECK: Normal jugular venous pressure LUNGS: fair aerations CARDIOVASCULAR: Regular rhythm, normal rate, 1/6 holosystolic murmur. No S3, no S4. S1, S2 are preserved. The cardiac apical impulse was nondisplaced and nonsustained. ABDOMEN: mildly tender epigastric area, nondistended, no rebound EXTREMITIES: Trace edema. 1+ DP, PT pulses bilateral. No clubbing or cyanosis. NEURO: awake, alert, and oriented IMPRESSION: 1. Chest pain -- recurrent 2. Coronary artery disease -- status post cardiac catheterization in July 2014 which demonstrated NON-critical epicardial CAD 3. Dysmetabolic syndrome with hypertensive heart disease, diabetes mellitus, elevated body mass index, and dyslipidemia. PLAN: 1. Continue on conservative medical management. 2. Awaiting CT chest/abdo for discharge planning 3. Further cardiac evaluation pending clinical course and chest CT results Extracted from:Title: Clinical Document 08/04/2014 [facility] Author: Avtar Vann MD Date: 08/04/14 Progress Note - Daily Raffaele Vann MD [facility] SUBJECTIVE events and progress reviewed recurrent cp OBJECTIVE Vitals and Temp: Vitals Tmp(F) Pulse BP RR SpO2 FIO2 08/04 11:00 98.2 83 122/81 16 98 --- 08/04 08:00 97.7 73 150/90 16 98 --- 08/04 07:28 ---- --- ----- 16 98 21% 08/04 04:08 98.6 78 138/80 17 100 --- 08/04 00:11 98.6 76 142/88 17 99 --- 24 Hr Tmax: 99.0F (37.22c) at 08/03 16:19 Vital Signs are the last 5 in the past 48 hours. Input/Output Record In Out Bal 08/04 24hr Tot 0 0 0 08/03 24hr Tot 20 0 20 Scheduled Meds (10):FLUoxetine (PROzac), OLANZapine (ZyPREXA), aspirin ( aspirin 81 mg tablet, enteric coated), (Suspended) furosemide (Lasix 40 mg oral tablet), (Suspended) hydrochlorothiazide-lisinopri l (hydrochlorothiazide-lisinopril 25 mg-20 mg oral tablet), insulin aspart ( NovoLOG PenFill), insulin detemir, metFORMIN (metFORMIN 500 mg oral tablet), simvastatin (Zocor), sodium chloride (Saline Flush 0.9%) Unscheduled Meds: None PRN Meds (15):Dextrose 50% in Water IV (Dextrose 50% Syringe), Dextrose 50% in Water IV (Dextrose 50% Syringe), acetaminophen (Tylenol), atropine, glucagon, insulin aspart, insulin aspart, insulin aspar t, insulin aspart, insulin aspart, levalbuterol (Xopenex), methocarbamol, nitroglycerin (nitroglycerin 0.4 mg sublingual tablet), nitroglycerin ( nitroglycerin SL Tab), sodium chloride (Saline Flush 0.9%) One Time Meds (1):(Completed) clopidogrel Continuous Infusions: None Labs (Last four charted values) WBC 7.2 (AUG 04) 8.4 (AUG 01) Hgb 12.0 (AUG 04) 13.5 (AUG 01) Hct 36.5 (AUG 04) 38.7 (AUG 01) Plt 216 (AUG 04) 253 (AUG 01) Na 141 (AUG 04) L 133 (AUG 01) K 4.0 (AUG 04) 4.0 (AUG 01) CO2 L 23 (AUG 04) L 23 (AUG 01) Cl 106 (AUG 04) 100 (AUG 01) Cr 0.8 (AUG 04) 0.8 (AUG 01) BUN 7 (AUG 04) 9 (AUG 01) Glucose Random H 208 (AUG 04) H 277 (AUG 01) Mg L 1.7 (AUG 04) L 1.4 (AUG 01) Phos 3.0 (AUG 01) Ca 8.8 (AUG 04) 8.7 (AUG 01) PT 13.0 (AUG 01) INR 0.98 (AUG 01) PTT 25.4 (AUG 01) Troponin <0.02 (AUG 04) <0.02 (AUG 02) <0.02 ( AUG 01) <0.02 (AUG 01) CK MB 0.8 (AUG 04) <0.5 (AUG 02) <0.5 (AUG 01 ) Total CK 93 (AUG 04) 110 (AUG 02) 124 (AUG 01) PHYSICAL EXAMINATION: GENERAL: sinus rhythm hemodynamically stable NECK: normal JVP LUNGS: fair aeration CARDIOVASCULAR: Regular rhythm, normal rate, 1/6 holosystolic murmur. No S3, no S4. S1, S2 are preserved. The cardiac apical impulse was nondisplaced and nonsustained. ABDOMEN: Soft, nontender, nondistended. Negative bruit. Normoactive bowel sounds, no pulsatile mass, no organomegaly. EXTREMITIES: Trace edema. 1+ DP, PT pulses bilateral. No clubbing or cyanosis. CENTRAL NERVOUS SYSTEM: awake, alert, and oriented IMPRESSION: 1. Chest pain with with abnormal stress Myocardial Perfusion Imaging -- recurrent. However, diagnostic cardiac cath was performed today with coronary angiogram demonstrated NO angiographically significant obstructive epicardial disease with preserved LVEF 55%. 2. Coronary artery disease -- status post cardiac catheterization (as above) 3. Dysmetabolic syndrome with hypertensive heart disease, diabetes mellitus, elevated body mass index, and dyslipidemia. PLAN: 1. Continue on conservative medical management. 2. Discharge planning Extracted from:Title: Clinical Document 03/07/2014 [facility] Author: Alvarado Perez MD Date: 03/06/14 Cardiology Note Alvarado Perez MD, PA SUBJECTIVE: THIS IS A COMBINED HP AND DC SUMMARY REASON FOR admission: Chest pain. HISTORY OF PRESENT ILLNESS: This is a 43-year-old female who c/o episode of chest pain yesterday. She also had numbness in her left arm and possible weakness on her left side but all now resolved. She currently does not have any chest pain. She has had 2 sets of cardiac enzymes and within normal limits. Her EKG shows poor R-wave progression in the anterior leads. She notes that from a cardiac standpoint about 4 years ago she had a cardiac catheterization in [facility] that was reportedly within normal limits. She says, subsequently, she did have a stress test that was also within normal limits. That was probabl y about 3 years ago. Currently, she denies chest pain and is clinically asymptomatic. She had C-spine surgery in 11/2013 which has been causing ongoing neck pain. REVIEW OF SYSTEMS: Otherwise, a complete review of systems is negative except for HPI. PAST MEDICAL HISTORY: Hypertension, diabetes, obesity, hypertriglyceridemia. FAMILY HISTORY: No premature history of CAD. PAST SURGICAL HISTORY: She has had tonsillectomy, adenoidectomy, . SOCIAL HISTORY: She does not smoke or drink. 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 ALLERGIES: No known drug allergies. HOME MEDICATIONS: Include aspirin, hydrochlorothiazide, lisinopril, Seroquel, Lexapro, Lipitor, and Nexium. Vitals and Temp: Vitals Tmp(F) Pulse BP RR SpO2 FIO2 03/06 16:00 97.7 69 121/80 16 100 --- 03/06 13:17 97.9 58 135/89 16 97 --- 03/06 12:32 97.8 75 135/87 15 99 --- 03/06 08:01 97.8 67 128/87 14 99 --- 03/06 07:38 97.8 65 144/92 20 98 --- 24 Hr Tmax: 97.9F (36.61c) at 03/06 13:17 Vital Signs are the last 5 in the past 48 hours. Scheduled Meds (2):nitroglycerin (nitroglycerin 2% ointment), sodium chloride ( Saline Flush 0.9%) Unscheduled Meds: None PRN Meds (11):Dextrose 50% in Water IV (Dextrose 50% Syringe), Dextrose 50% in Water IV (Dextrose 50% Syringe), glucagon, insulin aspart, insulin aspart, insulin aspart, insulin aspart, insulin aspart, morphine Sulfate, nitroglycerin (nitroglycerin SL Tab), sodium chloride ( Saline Flush 0.9%) One Time Meds (8):(Completed) Insulin regular, (Completed) Sodium Chloride 0.9 % IV (Sodium Chloride 0.9% (Bolus) IV), (Completed) aspirin, (Deleted) aspirin ( aspirin 325 mg tablet), (Completed) morphine Sulfate, (Completed) morphine Sulfate, (Completed) nitroglycerin ( nitroglycerin 2% ointment), (Completed) ondansetron Continuous Infusions: None Labs (Last four charted values) WBC 7.5 (MAR 06) Hgb 12.6 (MAR 06) Hct L 35.3 (MAR 06) Plt 246 (MAR 06) Na 135 (MAR 06) K 3.9 (MAR 06) CO2 26 (MAR 06) Cl 99 (MAR 06) Cr 0.6 (MAR 06) BUN 7 (MAR 06) Glucose Random H 392 (MAR 06) Ca L 7.9 (MAR 06) Troponin <0.02 (MAR 06) <0.02 (MAR 06) CK MB 0.9 (MAR 06) 0.8 (MAR 06) Total CK 100 (MAR 06) 138 (MAR 06) EXAM: Good BP control; NSR; afebrile Head: normocephalic and atraumatic Neck: no carotid bruit; no JVD CV: Regular; -S3; no significant murmurs Lungs: Clear; no wheezing; good air entry Abd: soft and no organomegaly; + bowel sounds Ext: no CCE; good pulses distally Neuro: nonfocal; oriented *3 Psych: appropriate ASSESSMENT: Atypical chest pain that appears musculoskeletal from her neck surgery DM with poor control PLAN: dc home today f/u with Dr Mishra to adjust BS mgmt f/u with me in 2 weeks ADA diet No new meds at this time Activity normal Extracted from:Title: Clinical Document 02/06/2014 [facility] Author: Heidi Chan NP [employer] TRANSPORTATION CLERK Date: 02/05/14 Neurosurgery Progress Note S: Patient is awake, alert. She reports a severe headache at this time, as well as continued lower back pain. She reports that her left leg pain is improving as compared to yesterday, however still feels weak. O: AFVSS IPS Q AT L G R 5 5 5 5 5 L 5 5 5 5 5 A/P: Hospital day 2 - Lumbar CT myelogram showed evidence of previous fusion and degenerative spondylosis at L3-4 - No evidence of any cauda equina, no any significant findings requiring immediate surgical intervention - post-void residual 12-37cc and is suggestive of adequate bladder emptying - No neurosurgical intervention at this time - We recommend pain management - We will sign off at this time and follow patient as an outpatient in regards to her previous cervical surgery with us Heidi Puente APRN Plan of Care No Data Provided for This Section Social History Social History Date Source Social History TypeResponse 02/04/2014 [facility] Substance Abuse Use: None. Sexual Sexually active: No. Exercise Exercise duration: 30. Exercise frequency: Daily. Exercise type: physical therapy. Employment/School Operates hazardous equipment: No. Alcohol Never, Previous treatment: None. Smoking Status Never smoker; Exposure to Tobacco Smoke None; Cigarette Smoking Last 365 Days No; Reg Smoking Cessation Counseling No entered on: 05/16/18 Social History TypeResponse 02/04/2014 [facility] Substance Abuse Use: None. Sexual Sexually active: No. Exercise Exercise duration: 30. Exercise frequency: Daily. Exercise type: physical therapy. Employment/School Operates hazardous equipment: No. Alcohol Never, Previous treatment: None. Smoking Status Never smoker; Exposure to Tobacco Smoke None; Cigarette Smoking Last 365 Days No; Reg Smoking Cessation Counseling Yes entered on: 09/20/17 Family History No Data Provided for This Section Advance Directives No Data Provided for This Section Functional Status No Data Provided for This Section
[2018-12-17 18:53] LABS: Urine Blood TRACE (NEG); Urine Glucose 2+ (NEG); Urine Protein NEGATIVE (NEG)
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
--- OUTSIDE RECORDS SUMMARY | 2018-12-17 18:57 | XMS REPORT | Summary of Care ---
:1970 Author Encounter GAURI Macias(NATALIE) [id number] Date(s): 11/26/13 - 11/30/13 [facility] [id number] [address] [id number] - [facility] Discharge Diagnosis: Chest pain with low risk of acute coronary syndrome Discharge Disposition: Home Physician Attending: Ash Mishra MD Physician Admitting: Ash Mishra MD Reason for Visit CERVICAL GERNIATED DISK, POSS CORD COMPRESSION Vital Signs Most recent to oldest [Reference 1 2 3 Range]: Height 165.1 cm (11/26/13 10:35 AM) Temperature Oral [96.4-99.1 98.5 DegF 97.8 DegF 98 DegF DegF] (11/30/13 12:00 PM) (11/30/13 8:00 AM) (11/30/13 4:26 AM) Systolic Blood Pressure [90-140 135 mmHg 119 mmHg 117 mmHg mmHg] (11/30/13 12:00 PM) (11/30/13 8:00 AM) (11/30/13 4:26 AM) Diastolic Blood Pressure [60-90 92 mmHg 77 mmHg 75 mmHg mmHg] *HI* (11/30/13 8:00 AM) (11/30/13 4:26 AM) (11/30/13 12:00 PM) Respiratory Rate [14-20 BRMIN] 18 BRMIN 18 BRMIN 16 BRMIN (11/30/13 12:00 PM) (11/30/13 8:00 AM) (11/30/13 4:26 AM) Peripheral Pulse Rate [60-100 91 bpm 96 bpm 78 bpm bpm] (11/30/13 12:00 PM) (11/30/13 8:00 AM) (11/30/13 4:26 AM) Weight 103.636 kg 103.636 kg (11/29/13 6:19 AM) (11/26/13 10:35 AM) Body Mass Index 38.02 m2 (11/26/13 10:35 AM) Problem List Condition Effective Dates Status Health Status Informant DM - Diabetes mellitus(Confirmed) Active HTN - Hypertension(Confirmed) Active Stroke(Confirmed) Active Stroke(Confirmed) Resolved Allergies, Adverse Reactions, Alerts Substance Reaction Severity Status NKDA Active Medications acetaminophen 650 mg, 20.3 mL, Route: PO, Drug form: LIQ, Q4H, Dosing Weight 103.636, kg, PRN Pain 1-3/Temp > 100.4 F, Start date: 11/26/13 17:16:00, Duration: 30 day, Stop date: 12/26/13 17:15:00 Notes: Max zkcahkuhoskjs=6998ss/day (4 gm/day). (Same as: Tylenol) Start Date: 11/26/13 Stop Date: 11/30/13 Status: Discontinuedacetaminophen-hydrocodone 325 mg-5 mg oral tablet 1 tab, Route: PO, Drug Form: TAB, Dosing Weight 103.636, kg, Q4H, PRN Pain Score 4-6, Start date: 11/27/13 19:15:00, Duration: 30 day, Stop date: 12/27/13 19:14:00 Notes: (Same as: Paterson 325/5) Do not exceed 4gm/day of acetaminophen. Start Date: 11/27/13 Stop Date: 11/30/13 Status: Discontinuedacetaminophen-hydrocodone 325 mg-5 mg oral tablet 1 tab, Route: PO, Drug Form: TAB, Dosing Weight 103.636, kg, Q4H, PRN Pain, Start date: 11/27/13 19:15:00, Duration: 30 day, Stop date: 12/27/13 19:14:00 Start Date: 11/27/13 Stop Date: 11/27/13 Status: DeletedAncef 2 gm, 100 mL, Route: IVPB, Drug form: INJ, ONCALL, Dosing Weight 103.636, kg, Start date: 11/27/13 15:00:00, Duration: 30 day, Stop date: 12/27/13 14:59:00 Notes: Same as: Ancef Start Date: 11/27/13 Stop Date: 11/27/13 Status: Discontinuedaspirin 81 mg tablet, chewable 324 mg, Route: PO, Drug form: CHEWTAB, ONCE, Dosing Weight 103.636, kg, Priority : STAT, Start date: 11/26/13 12:33:00, Stop date: 11/26/13 12:33:00 Start Date: 11/26/13 Stop Date: 11/26/13 Status: Completedaspirin 81 mg tablet, enteric coated 81 mg=1 tab, PO, Daily Start Date: 11/26/13 Status: Orderedaspirin 81 mg tablet, enteric coated 81 mg, 1 tab, Route: PO, Drug form: ECTAB, Daily, Dosing Weight 103.636, kg, Start date: 11/27/13 9:00:00, Duration: 30 day, Stop date: 12/26/13 9:00:00 Notes: Do not crush or chew.(Same As: Ecotrin) Start Date: 11/27/13 Stop Date: 11/30/13 Status: DiscontinuedAtarax 50 mg oral tab 50 mg=1 tab, PO, Q12H Start Date: 11/26/13 Status: Orderedatropine 0.5 mg, 5 mL, Route: IVP, Drug form: INJ, PRN, PRN Bradycardia, Start date: 09/04 17:44:00, Duration: 30 day, Stop date: 12/26/13 17:43:00 Start Date: 11/26/13 Stop Date: 11/30/13 Status: DiscontinuedceFAZolin 2 gm, 100 mL, Route: IVPB, Drug form: INJ, ONCE, Dosing Weight 103.636, kg, Start date: 11/27/13 18:35:00, Duration: 1 doses or times, Stop date: 11/27/13 18:35:00 Notes: Same as: Ancef Start Date: 11/27/13 Stop Date: 11/27/13 Status: CompletedceFAZolin (SCIP) 1 gm, 100 mL, Route: IVPB, Drug form: INJ, ABXQ8H, Dosing Weight 103.636, kg, Start date: 11/27/13 20:00:00, Duration: 3 doses or times, Stop date: 11/28/13 15:00:00 Start Date: 11/27/13 Stop Date: 11/28/13 Status: CompletedColace 100 mg oral capsule 100 mg, 1 cap, Route: PO, Drug form: CAP, BID, Dosing Weight 103.636, kg, Start date: 11/28/13 9:00:00, Duration: 30 day, Stop date: 12/27/13 17:00:00 Notes: (Same as: Colace) (Do Not Crush) Start Date: 11/28/13 Stop Date: 11/30/13 Status: DiscontinuedColace 100 mg oral capsule 100 mg, 1 cap, Route: PO, Drug form: CAP, BID, Dosing Weight 103.636, kg, Start date: 11/28/13 17:00:00, Duration: 30 day, Stop date: 12/28/13 9:00:00 Notes: (Same as: Colace) (Do Not Crush) Start Date: 11/28/13 Stop Date: 11/28/13 Status: DeletedDextrose 50% Syringe 12.5 gm, 25 mL, Route: IVP, Drug Form: INJ, Dosing Weight 103.636, kg, PRN, PRN Blood Glucose Results, Start date: 11/26/13 16:25:00, Duration: 30 day, Stop date: 12/26/13 16:24:00 Start Date: 11/26/13 Stop Date: 11/30/13 Status: DiscontinuedDextrose 50% Syringe 25 gm, 50 mL, Route: IVP, Drug Form: INJ, Dosing Weight 103.636, kg, PRN, PRN Blood Glucose Results,Start date: 11/26/13 16:25:00, Duration: 30 day, Stop date : 12/26/13 16:24:00 Start Date: 11/26/13 Stop Date: 11/30/13 Status: DiscontinuedDilaudid 0.5 mg, 0.5 mL, Route: IV, Drug form: INJ, Q3H, Dosing Weight 103.636, kg, PRN Pain Score 4-6, Startdate: 11/27/13 19:15:00, Duration: 30 day, Stop date: 12/27 19:14:00 Start Date: 11/27/13 Stop Date: 11/30/13 Status: DiscontinuedDilaudid 1 mg, 1 mL, Route: IV, Drug form: INJ, Q3H, Dosing Weight 103.636, kg, PRN Pain Score 7-10, Start date: 11/27/13 19:15:00, Duration: 30 day, Stop date: 19:14:00 Start Date: 11/27/13 Stop Date: 11/30/13 Status: Discontinueddocusate 100 mg, 1 cap, Route: PO, Drug form: CAP, BID, Dosing Weight 103.636, kg, PRN Constipation, Start date: 11/26/13 17:16:00, Duration: 30 day, Stop date: 17:15:00 Notes: (Same as: Colace) (Do Not Crush) Start Date: 11/26/13 Stop Date: 11/27/13 Status: Discontinuedescitalopram 20 mg, 1 tab, Route: PO, Drug form: TAB, Daily, Dosing Weight 103.636, kg, Start date: 11/27/13 9:00:00, Duration: 30 day, Stop date: 12/26/13 9:00:00 Notes: (Same as: Lexapro) Start Date: 11/27/13 Stop Date: 11/30/13 Status: Discontinuedescitalopram 20 mg oral tablet 20 mg=1 tab, PO, Daily Start Date: 11/26/13 Status: Orderedgemfibrozil 600 mg, 1 tab, Route: PO, Drug form: TAB, BID, Dosing Weight 103.636, kg, Start date: 11/27/13 9:00:00, Duration: 30 day, Stop date: 12/26/13 17:00:00 Notes: (Same as: Lopid) Start Date: 11/27/13 Stop Date: 11/30/13 Status: Discontinuedglucagon 1 mg, Route: IM, PRN, Dosing Weight 103.636, kg, PRN Blood Glucose Results, Start date: 11/26/13 21:52:00, Duration: 30 day, Stop date: 12/26/13 21:51:00 Start Date: 11/26/13 Stop Date: 11/26/13 Status: Deletedglucagon 1 mg, Route: IM, Drug form: PDR/INJ, PRN, Dosing Weight 103.636, kg, PRN Blood Glucose Results, Start date: 11/26/13 16:25:00, Duration: 30 day, Stop date: 08/05 16:24:00 Start Date: 11/26/13 Stop Date: 11/30/13 Status: Discontinuedheparin 5000 units/mL injectable solution 5,000 unit, 1 mL, Route: SUB-Q, Drug form: INJ, Q12H, Dosing Weight 103.636, kg , Start date: 11/28/13 8:00:00, Duration: 30 day, Stop date: 12/27/13 21:00:00 Notes: porcine heparin Start Date: 11/28/13 Stop Date: 11/30/13 Status: DiscontinuedHumulin R 100 units/mL injectable solution 20 unit, 0.2 mL, Route: SUB-Q, Drug form: SOLN, BID, Dosing Weight 103.636, kg, Start date: 149:00:00, Duration: 30 day, Stop date: 12/26/13 17:00:00 Start Date: 11/27/13 Stop Date: 11/27/13 Status: DeletedHumulin R 100 units/mL injectable solution 20 unit, SUB-Q, BID Start Date: 11/26/13 Status: Orderedhydrochlorothiazide 25 mg oral tablet 25 mg, 1 tab, Route: PO, Drug form: TAB, Daily, Start date: 11/27/13 9:00:00, Duration: 30 day, Stopdate: 12/26/13 9:00:00 Notes: (Same as: Hydrodiuril) With food. Start Date: 11/27/13 Stop Date: 11/30/13 Status: Discontinuedhydrochlorothiazide-lisinopril 25 mg-20 mg oral tablet 1 tab, Route: PO, Drug Form: TAB, Dosing Weight 103.636, kg, Daily, Start date: 11/27/13 9:00:00, Duration: 30 day, Stop date: 12/26/13 9:00:00 Start Date: 11/27/13 Stop Date: 11/27/13 Status: Deletedhydrochlorothiazide-lisinopril 25 mg-20 mg oral tablet 1 tab, PO, Daily Start Date: 11/26/13 Status: OrderedhydrOXYzine 50 mg, 2 tab, Route: PO, Drug form: TAB, Q12H, Dosing Weight 103.636, kg, Start date: 11/27/13 9:00:00, Duration: 30 day, Stop date: 12/26/13 21:00:00 Notes: (Same as: Atarax) Avoid alcohol. Start Date: 11/27/13 Stop Date: 11/30/13 Status: Discontinuedinsulin aspart 1 unit, 0.01 mL, Route: SUB-Q, Drug form: SOLN, Bedtime, Dosing Weight 103.636, kg, PRN Blood Glucose Results, Start date: 11/26/13 21:52:00, Duration: 30 day, Stop date: 12/26/13 21:51:00 Notes: Roll in palms of hands gently; Do not shake vigorously. (Same as: NovoLOG)"single patient use only" Stable for 28 days at room temperature.Expires in days from Date Start Date: 11/26/13 Stop Date: 11/30/13 Status: Discontinuedinsulin aspart 2 unit, 0.02 mL, Route: SUB-Q, Drug form: SOLN, Bedtime, Dosing Weight 103.636, kg, PRN Blood Glucose Results, Start date: 11/26/13 21:52:00, Duration: 30 day, Stop date: 12/26/13 21:51:00 Notes: Roll in palms of hands gently; Do not shake vigorously. (Same as: NovoLOG)"single patient use only" Stable for 28 days at room temperature.Expires in days from Date Start Date: 11/26/13 Stop Date: 11/30/13 Status: Discontinuedinsulin aspart 3 unit, 0.03 mL, Route: SUB-Q, Drug form: SOLN, Bedtime, Dosing Weight 103.636, kg, PRN Blood Glucose Results, Start date: 11/26/13 21:52:00, Duration: 30 day, Stop date: 12/26/13 21:51:00 Notes: Roll in palms of hands gently; Do not shake vigorously. (Same as: NovoLOG)"single patient use only" Stable for 28 days at room temperature.Expires in days from Date Start Date: 11/26/13 Stop Date: 11/30/13 Status: Discontinuedinsulin aspart 4 unit, 0.04 mL, Route: SUB-Q, Drug form: SOLN, Bedtime, Dosing Weight 103.636, kg, PRN Blood Glucose Results, Start date: 11/26/13 21:52:00, Duration: 30 day, Stop date: 12/26/13 21:51:00 Notes: Roll in palms of hands gently; Do not shake vigorously. (Same as: NovoLOG)"single patient use only" Stable for 28 days at room temperature.Expires in days from Date Start Date: 11/26/13 Stop Date: 11/30/13 Status: Discontinuedinsulin aspart 4 unit, 0.04 mL, Route: SUB-Q, Drug form: SOLN, TID-Before Meals, Dosing Weight 103.636, kg, PRN Blood Glucose Results, Start date: 11/26/13 16:25:00, Duration : 30 day, Stop date: 12/26/13 16:24:00 Notes: Roll in palms of hands gently; Do not shake vigorously. (Same as: NovoLOG)"single patient use only" Stable for 28 days at room temperature.Expires in days from Date Start Date: 11/26/13 Stop Date: 11/30/13 Status: Discontinuedinsulin aspart 2 unit, 0.02 mL, Route: SUB-Q, Drug form: SOLN, TID-Before Meals, Dosing Weight 103.636, kg, PRN Blood Glucose Results, Start date: 11/26/13 16:25:00, Duration : 30 day, Stop date: 12/26/13 16:24:00 Notes: Roll in palms of hands gently; Do not shake vigorously. (Same as: NovoLOG)"single patient use only" Stable for 28 days at room temperature.Expires in days from Date Start Date: 11/26/13 Stop Date: 11/30/13 Status: Discontinuedinsulin aspart 10 unit, 0.1 mL, Route: SUB-Q, Drug form: SOLN, TID-Before Meals, Dosing Weight 103.636, kg, PRN Blood Glucose Results, Start date: 11/26/13 16:25:00, Duration : 30 day, Stop date: 12/26/13 16:24:00 Notes: Roll in palms of hands gently; Do not shake vigorously. (Same as: NovoLOG)"single patient use only" Stable for 28 days at room temperature.Expires in days from Date Start Date: 11/26/13 Stop Date: 11/30/13 Status: Discontinuedinsulin aspart 8 unit, 0.08 mL, Route: SUB-Q, Drug form: SOLN, TID-Before Meals, Dosing Weight 103.636, kg, PRN Blood Glucose Results, Start date: 11/26/13 16:25:00, Duration : 30 day, Stop date: 12/26/13 16:24:00 Notes: Roll in palms of hands gently; Do not shake vigorously. (Same as: NovoLOG)"single patient use only" Stable for 28 days at room temperature.Expires in days from Date Start Date: 11/26/13 Stop Date: 11/30/13 Status: Discontinuedinsulin aspart 6 unit, 0.06 mL, Route: SUB-Q, Drug form: SOLN, TID-Before Meals, Dosing Weight 103.636, kg, PRN Blood Glucose Results, Start date: 11/26/13 16:25:00, Duration : 30 day, Stop date: 12/26/13 16:24:00 Notes: Roll in palms of hands gently; Do not shake vigorously. (Same as: NovoLOG)"single patient use only" Stable for 28 days at room temperature.Expires in days from Date Start Date: 11/26/13 Stop Date: 11/30/13 Status: Discontinuedinsulin aspart 8 unit, 0.08 mL, Route: SUB-Q, Drug form: SOLN, TID-Before Meals, Dosing Weight 103.636, kg, Start date: 11/26/13 16:30:00, Duration: 30 day, Stop date: 11:30:00 Notes: Roll in palms of hands gently; Do not shake vigorously. (Same as: NovoLOG)"single patient use only" Stable for 28 days at room temperature.Expires in days from Date Start Date: 11/26/13 Stop Date: 11/27/13 Status: Discontinuedinsulin glargine 30 unit, Route: SUB-Q, Daily, Dosing Weight 103.636, kg, Start date: 11/27/13 9: 00:00, Duration: 30 day, Stop date: 12/26/13 9:00:00 Start Date: 11/27/13 Stop Date: 11/26/13 Status: DeletedInsulin regular 8 unit, Route: IVP, ONCE, Dosing Weight 103.636, kg, Priority: STAT, Start date : 11/26/13 12:25:00, Stop date: 11/26/13 12:25:00 Start Date: 11/26/13 Stop Date: 11/26/13 Status: CompletedLactated Ringers IV 1,000 mL 1,000 mL, Rate: 25 ml/hr, Infuse over: 40 hr, Route: IV, Dosing Weight 103.636 kg, Total Volume: 1,000, Start date: 11/27/13 14:23:00, Duration: 1 day, Stop date: 11/28/13 14:22:00 Start Date: 11/27/13 Stop Date: 11/28/13 Status: CompletedLevemir FlexPen 30 unit, 0.3 mL, Route: SUB-Q, Drug form: INJ, Daily, Start date: 11/27/13 9:00: 00, Duration: 30 day, Stop date: 12/26/13 9:00:00 Notes: Same as Levemir "single patient use only" Start Date: 11/27/13 Stop Date: 11/30/13 Status: DiscontinuedLipitor 20 mg, 2 tab, Route: PO, Drug form: TAB, Bedtime, Dosing Weight 103.636, kg, Start date: 11/27/13 21:00:00, Duration: 30 day, Stop date: 12/26/13 21:00:00 Notes: (Same As: Lipitor) Start Date: 11/27/13 Stop Date: 11/30/13 Status: DiscontinuedLipitor 20 mg oral tablet 20 mg=1 tab, PO, Bedtime Start Date: 11/26/13 Status: Orderedmagnesium citrate 300 ml, Route: PO, Drug Form: LIQ, Dosing Weight 103.636, kg, ONCE, PRN Constipation, Start date: 11/27/13 19:15:00 Notes: (Same as: Citrate of Magnesia) Start Date: 11/27/13 Stop Date: 11/30/13 Status: Discontinuedmorphine Sulfate 4 mg, 2 mL, Route: IVP, Drug form: INJ, Q4H, Dosing Weight 103.636, kg, PRN Chest Pain, Start date: 11/26/13 15:23:00, Duration: 30 day, Stop date: 15:22:00 Notes: (Same as:MORPhine Sulfate) Start Date: 11/26/13 Stop Date: 11/30/13 Status: Discontinuedmorphine Sulfate 4 mg, 2 mL, Route: IVP, Drug form: INJ, Q4H, Dosing Weight 103.636, kg, PRN Pain Score 7-10, Start date: 11/26/13 17:16:00, Duration: 30 day, Stop date: 08/05 17:15:00 Notes: (Same as:MORPhine Sulfate) Start Date: 11/26/13 Stop Date: 11/30/13 Status: Discontinuedmorphine Sulfate 4 mg, Route: IVP, Drug form: INJ, ONCE, Dosing Weight 103.636, kg, Priority: STAT, Start date: 11/26/13 12:32:00, Stop date: 11/26/13 12:32:00 Start Date: 11/26/13 Stop Date: 11/26/13 Status: CompletedNexIUM 40 mg, Route: PO, Drug form: ECCAP, Daily, Dosing Weight 103.636, kg, Start date : 11/27/13 9:00:00, Duration: 30 day, Stop date: 12/26/13 9:00:00 Start Date: 11/27/13 Stop Date: 11/27/13 Status: DeletedNexIUM 40 mg oral delayed release capsule 40 mg=1 cap, PO, Daily Start Date: 11/26/13 Status: Orderednitroglycerin 0.4 mg sublingual tablet 0.4 mg, 1 tab, Route: SL, Drug form: TAB, Q5Min, PRN Chest Pain, Start date: 09/04 17:44:00, Duration: 30 day, Stop date: 12/26/13 17:43:00 Notes: (Same as:Nitroquick, Nitrostat)"Do Not Crush" Sublingual tablet Start Date: 11/26/13 Stop Date: 11/30/13 Status: DiscontinuedNovoLOG 20 unit, 0.2 mL, Route: SUB-Q, Drug form: SOLN, BID-Meals, Start date: 11/27/13 8:00:00, Duration: 30 day, Stop date: 12/26/13 17:00:00 Notes: (Same as: NovoLOG) Start Date: 11/27/13 Stop Date: 11/30/13 Status: Discontinuedondansetron 4 mg, Route: IVP, Drug form: INJ, ONCE, Dosing Weight 103.636, kg, Priority: STAT, Start date: 11/26/13 12:32:00, Stop date: 11/26/13 12:32:00 Start Date: 11/26/13 Stop Date: 11/26/13 Status: Completedondansetron 4 mg, 2 mL, Route: IVP, Drug form: INJ, Q8H, Dosing Weight 103.636, kg, PRN Nausea & Vomiting, Start date: 11/26/13 17:16:00, Duration: 30 day, Stop date: 12/26/13 17:15:00 Notes: (Same as: Zofran) Start Date: 11/26/13 Stop Date: 11/30/13 Status: DiscontinuedPepcid 20 mg oral tablet 20 mg, 1 tab, Route: PO, Drug form: TAB, Q12H, Dosing Weight 103.636, kg, Start date: 11/27/13 21:00:00, Duration: 30 day, Stop date: 12/27/13 9:00:00 Notes: (Same as: Pepcid) Start Date: 11/27/13 Stop Date: 11/30/13 Status: Discontinuedphenylephrine 10 mg + Sodium Chloride 0.9% IV 249 mL 249 mL, Rate: Titrate to effect, Route: IV, Dosing Weight 103.636 kg, Total Volume: 250, Start date:11/27/13 14:12:00, Duration: 1 doses or times, Stop date : 11/28/13 14:11:00 Notes: (Same as: Julián-Synephrine) Start Date: 11/27/13 Stop Date: 11/28/13 Status: CompletedPhysical Therapy See Instructions, MISC, ONCALL, Evaluate and Treat 2-3 times per week for 4-6 weeks, # 1 ea, 0 Refill(s) Special Instructions: Evaluate and Treat 2-3 times per week for 4-6 weeks Start Date: 11/29/13 Status: Orderedpneumococcal 23-valent vaccine 0.5 ml, Route: IM, Drug Form: INJ, Daily, Start date: 11/27/13 9:00:00, Duration : 1 doses or times, Stop date: 11/27/13 9:00:00 Notes: (Same as: Pneumovax 23) Refrigerate Start Date: 11/27/13 Stop Date: 11/27/13 Status: CompletedPrinivil 20 mg, 1 tab, Route: PO, Drug form: TAB, Daily, Start date: 11/27/13 9:00:00, Duration: 30 day, Stopdate: 12/26/13 9:00:00 Notes: (Same as: Prinivil, Zestril) Start Date: 11/27/13 Stop Date: 11/30/13 Status: DiscontinuedProtonix 40 mg, 1 tab, Route: PO, Drug form: ECTAB, Before Dinner, Start date: 11/27/13 16:30:00, Duration: 30 day, Stop date: 12/26/13 16:30:00 Notes: Tablet should not be chewed or crushed.(Same as: Protonix) Start Date: 11/27/13 Stop Date: 11/30/13 Status: DiscontinuedSenokot 17.2 mg, 2 tab, Route: PO, Drug Form: TAB, Dosing Weight 103.636, kg, Daily, Start date: 11/28/13 9:00:00, Duration: 30 day, Stop date: 12/27/13 9:00:00 Notes: (Same as: Senokot) Start Date: 11/28/13 Stop Date: 11/30/13 Status: DiscontinuedSEROquel 300 mg, 3 tab, Route: PO, Drug form: TAB, Bedtime, Dosing Weight 103.636, kg, Start date: 11/27/13 21:00:00, Duration: 30 day, Stop date: 12/26/13 21:00:00 Notes: (Same as: SEROquel) Start Date: 11/27/13 Stop Date: 11/30/13 Status: DiscontinuedSEROquel 300 mg oral tablet 300 mg=1 tab, PO, Bedtime Start Date: 11/26/13 Status: OrderedSodium Chloride 0.9% IV 1,000 mL 1,000 mL, Rate: 75 ml/hr, Infuse over: 13.3 hr, Route: IV, Dosing Weight 103.636 kg, Total Volume: 1,000, Start date: 11/27/13 19:15:00, Duration: 30 day , Stop date: 12/27/13 19:14:00 Start Date: 11/27/13 Stop Date: 11/30/13 Status: DiscontinuedTylenol 650 mg, Route: PO, Drug form: TAB, Q4H, Dosing Weight 103.636, kg, PRN Pain, Start date: 11/27/13 19:15:00, Duration: 30 day, Stop date: 12/27/13 19:14:00 Start Date: 11/27/13 Stop Date: 11/27/13 Status: DeletedZofran 4 mg, 2 mL, Route: IV, Drug form: INJ, Q8H, Dosing Weight 103.636, kg, PRN Nausea, Start date: 11/27/13 19:15:00, Duration: 30 day, Stop date: 12/27/13 19: 14:00 Notes: (Same as: Zofran) Start Date: 11/27/13 Stop Date: 11/30/13 Status: Discontinued Results BLOOD BANK RESULTS Most recent to oldest [Reference Range]: 1 2 3 ABO/Rh O POS *Unknown* (11/27/13 2:24 PM) Antibody Scrn Negative (11/27/13 2:24 PM) Platelet product Product available 1 (11/27/13 12:17 PM) 1Result Comment: 11/27/2013 15:14 [id number] CALLED OR 11/27/2013 15:14 SB.ELECTROLYTES Most recent to oldest 1 2 3 [Reference Range]: Sodium Lvl [135-145 mEq/L] 140 mEq/L 139 mEq/L 138 mEq/L (11/30/13 3:00 AM) (11/29/13 3:58 AM) (11/28/13 4:24 AM) Potassium Lvl [3.5-5.1 mEq/L] 3.8 mEq/L 4.0 mEq/L 4.2 mEq/L (11/30/13 3:00 AM) (11/29/13 3:58 AM) (11/28/13 4:24 AM) Chloride Lvl [95-109 mEq/L] 103 mEq/L 102 mEq/L 104 mEq/L (11/30/13 3:00 AM) (11/29/13 3:58 AM) (11/28/13 4:24 AM) CO2 [24-32 mEq/L] 29 mEq/L 27 mEq/L 18 mEq/L (11/30/13 3:00 AM) (11/29/13 3:58 AM) *LOW* (11/28/13 4:24 AM) AGAP [10.0-20.0 mEq/L] 11.8 mEq/L 14.0 mEq/L 20.2 mEq/L (11/30/13 3:00 AM) (11/29/13 3:58 AM) *HI* (11/28/13 4:24 AM) CHEM PANEL Most recent to oldest 1 2 3 [Reference Range]: Creatinine Lvl [0.5-1.4 0.7 mg/dL 0.8 mg/dL 0.1 mg/dL mg/dL] (11/30/13 3:00 AM) (11/29/13 3:58 AM) *LOW* (11/28/13 4:24 AM) eGFR 121 mL/min/1.73m2 2 103 mL/min/1.73m2 3 230 mL/min/1.73m2 4 *NA* *NA* *NA* (11/30/13 3:00 AM) (11/29/13 3:58 AM) (11/28/13 4:24 AM) BUN [7-22 mg/dL] 6 mg/dL 7 mg/dL 8 mg/dL *LOW* (11/29/13 3:58 AM) (11/28/13 4:24 AM) (11/30/13 3:00 AM) B/C Ratio [6-25] 10 (11/26/13 10:48 AM) Glucose Lvl [70-99 mg/dL] 169 mg/dL 5 185 mg/dL 6 262 mg/dL 7 *HI* *HI* *HI* (11/30/13 3:00 AM) (11/29/13 3:58 AM) (11/28/13 4:24 AM) Total Protein [6.4-8.4 7.6 g/dL g/dL] (11/26/13 10:48 AM) Albumin Lvl [3.5-5.0 g/dL] 3.8 g/dL (11/26/13 10:48 AM) Globulin [2.0-4.0 g/dL] 3.8 g/dL (11/26/13 10:48 AM) A/G Ratio [0.7-1.6] 1.0 (11/26/13 10:48 AM) Calcium Lvl [8.5-10.5 8.9 mg/dL 8.6 mg/dL 8.3 mg/dL mg/dL] (11/30/13 3:00 AM) (11/29/13 3:58 AM) *LOW* (11/28/13 4:24 AM) ALT [0-65 unit/L] 35 unit/L (11/26/13 10:48 AM) AST [0-37 unit/L] 24 unit/L (11/26/13 10:48 AM) Alk Phos [39-136 unit/L] 111 unit/L (11/26/13 10:48 AM) Bili Total [0.2-1.3 mg/dL] 0.4 mg/dL (11/26/13 10:48 AM) 2Result Comment: The eGFR is calculated using the CKD-EPI formula. In most young , healthy individualsthe eGFR will be >90 mL/min/1.73m2. The eGFR declines with age. An eGFR of 60-89 may be normal in some populations, particularly the elderly, for whom the CKD-EPI formula has not been extensively validated. Use of the eGFR is not recommended in the following populations: Individuals with unstable creatinine concentrations, including patients and those with serious co-morbid conditions. Patients with extremes in muscle mass or diet. The data above are obtained from the [employer] ( [employer]) which additionally recommends that when the eGFR is used in patients with extremes of body mass index for purposesof drug dosing, the eGFR should be multiplied by the estimated BMI.3Result Comment: The eGFR is calculated using the CKD-EPI formula. In most young, healthy individualsthe eGFR will be >90 mL/ min/1.73m2. The eGFR declines with age. An eGFR of 60-89 may be normal in some populations, particularly the elderly, for whom the CKD-EPI formula has not been extensively validated. Use of the eGFR is not recommended in the following populations: Individuals with unstable creatinine concentrations, including patients and those with serious co-morbid conditions. Patients with extremes in muscle mass or diet. The data above are obtained from the [employer] ( [employer]) which additionally recommends that when the eGFR is used in patients with extremes of body mass index for purposesof drug dosing, the eGFR should be multiplied by the estimated BMI.4Result Comment: The eGFR is calculated using the CKD-EPI formula. In most young, healthy individualsthe eGFR will be >90 mL/ min/1.73m2. The eGFR declines with age. An eGFR of 60-89 may be normal in some populations, particularly the elderly, for whom the CKD-EPI formula has not been extensively validated. Use of the eGFR is not recommended in the following populations: Individuals with unstable creatinine concentrations, including patients and those with serious co-morbid conditions. Patients with extremes in muscle mass or diet. The data above are obtained from the [employer] ( [employer]) which additionally recommends that when the eGFR is used in patients with extremes of body mass index for purposesof drug dosing, the eGFR should be multiplied by the estimated BMI.5Interpretive Data: Adult reference range values reflect the clinical guidelines of the [place] [employer].6Interpretive Data: Adult reference range values reflect the clinical guidelines of the [place] [employer].7Interpretive Data: Adult reference range values reflect the clinical guidelines of the [place] [employer].CARDIAC ENZYMES Most recent to oldest 1 2 3 [Reference Range]: Total CK [12-191 unit/L] 132 unit/L 145 unit/L 164 unit/L (11/27/13 4:17 AM) (11/26/13 11:56 PM) (11/26/13 4:08 PM) CK MB [0.5-3.6 ng/mL] <0.5 ng/mL 0.6 ng/mL <0.5 ng/mL (11/27/13 4:17 AM) (11/26/13 11:56 PM) (11/26/13 4:08 PM) CK MB Index [0.0-2.5] <0.4 0.4 <0.3 (11/27/13 4:17 AM) (11/26/13 11:56 PM) (11/26/13 4:08 PM) Troponin-I [0.00-0.40 ng/mL] <0.02 ng/mL <0.02 ng/mL <0.02 ng/mL (11/27/13 4:17 AM) (11/26/13 11:56 PM) (11/26/13 4:08 PM) LIPIDS Most recent to oldest [Reference Range]: 1 2 3 CHD Risk [3.90-5.80] 8.20 *HI* (11/26/13 10:48 AM) Chol [<=199 mg/dL] 205 mg/dL *HI* (11/26/13 10:48 AM) Trig [<=149 mg/dL] 772 mg/dL *HI* (11/26/13 10:48 AM) HDL [>=61 mg/dL] 25 mg/dL *LOW* (11/26/13 10:48 AM) LDL (Calculated) [<=99 mg/dL] See Note mg/dL 8 *NA* (11/26/13 10:48 AM) VLDL See Note 9 *NA* (11/26/13 10:48 AM) LDL Direct [<=99 mg/dL] 91 mg/dL (11/27/13 4:17 AM) 8Result Comment: LDL cholesterol cannot be calculated due to very high triglycerides (>400 mg/dL). Recommend Direct LDL if clinically indicated.9Result Comment: VLDL - Cholesterol level cannot be accurately calculated due to very high triglycerides (>400 mg/dL).SPECIAL CHEMISTRY Most recent to oldest [Reference Range]: 1 2 3 Hgb A1C [<=5.6 %] 11.4 % *HI* (11/27/13 4:17 AM) HEMATOLOGY Most recent to oldest [Reference Range]: 1 2 3 WBC [3.7-10.4 K/CMM] 9.9 K/CMM 7.3 K/CMM (11/28/13 4:24 AM) (11/26/13 10:48 AM) RBC [4.20-5.40 M/CMM] 3.86 M/CMM 4.15 M/CMM *LOW* *LOW* (11/28/13 4:24 AM) (11/26/13 10:48 AM) Hgb [12.0-16.0 g/dL] 11.7 g/dL 12.6 g/dL *LOW* (11/26/13 10:48 AM) (11/28/13 4:24 AM) Hct [36.0-48.0 %] 34.2 % 36.5 % *LOW* (11/26/13 10:48 AM) (11/28/13 4:24 AM) MCV [81.0-99.0 fL] 88.7 fL 87.9 fL (11/28/13 4:24 AM) (11/26/13 10:48 AM) MCH [27.0-31.0 pg] 30.2 pg 30.3 pg (11/28/13 4:24 AM) (11/26/13 10:48 AM) MCHC [32.0-36.0 g/dL] 34.0 g/dL 34.4 g/dL (11/28/13 4:24 AM) (11/26/13 10:48 AM) RDW [11.5-14.5 %] 12.4 % 12.5 % (11/28/13 4:24 AM) (11/26/13 10:48 AM) Platelet [133-450 K/CMM] 248 K/CMM 275 K/CMM (11/28/13 4:24 AM) (11/26/13 10:48 AM) MPV [7.4-10.4 fL] 10.0 fL 9.6 fL (11/28/13 4:24 AM) (11/26/13 10:48 AM) Segs [45.0-75.0 %] 61.5 % 54.5 % (11/28/13 4:24 AM) (11/26/13 10:48 AM) Lymphocytes [20.0-40.0 %] 28.6 % 35.3 % (11/28/13 4:24 AM) (11/26/13 10:48 AM) Monocytes [2.0-12.0 %] 6.7 % 6.6 % (11/28/13 4:24 AM) (11/26/13 10:48 AM) Eosinophils [0.0-4.0 %] 2.5 % 2.4 % (11/28/13 4:24 AM) (11/26/13 10:48 AM) Basophils [0.0-1.0 %] 0.7 % 1.2 % (11/28/13 4:24 AM) *HI* (11/26/13 10:48 AM) Segs-Bands # [1.5-8.1 K/CMM] 6.1 K/CMM 4.0 K/CMM (11/28/13 4:24 AM) (11/26/13 10:48 AM) Lymphocytes # [1.0-5.5 K/CMM] 2.8 K/CMM 2.6 K/CMM (11/28/13 4:24 AM) (11/26/13 10:48 AM) Monocytes # [0.0-0.8 K/CMM] 0.7 K/CMM 0.5 K/CMM (11/28/13 4:24 AM) (11/26/13 10:48 AM) Eosinophils # [0.0-0.5 K/CMM] 0.2 K/CMM 0.2 K/CMM (11/28/13 4:24 AM) (11/26/13 10:48 AM) Basophils # [0.0-0.2 K/CMM] 0.1 K/CMM 0.1 K/CMM (11/28/13 4:24 AM) (11/26/13 10:48 AM) PT [12.0-14.7 seconds] 12.5 seconds (11/26/13 10:48 AM) INR [0.85-1.17] 0.94 10 (11/26/13 10:48 AM) PTT [22.9-35.8 seconds] 26.5 seconds 11 (11/26/13 10:48 AM) 10Interpretive Data: RECOMMENDED RANGES FOR PROTIME INR: 2.0-3.0 for most medical and surgical thromboembolic states. 2.5-3.5 for artificial heart valves and recurrent embolism. INR SHOULD BE USED ONLY FOR PATIENTS ON STABLE ANTICOAGULANT THERAPY.11Interpretive Data: Heparin Therapeutic Range: 57 - 92 Seconds Medications Administered During Your Visit No data available for this section Immunizations Vaccine Date Refusal Reason pneumococcal 23-valent vaccine 11/27/13 Social History Social History Type Response Smoking Status Never smoker, Exposure to Tobacco Smoke None, Cigarette Smoking Last 365 Days No, Reg Smoking Cessation Counseling No
--- OUTSIDE RECORDS SUMMARY | 2018-12-17 18:57 | XMS REPORT | Summary of Care ---
:1970 Author Encounter GAURI Macias(NATALIE) [id number] Date(s): 02/03/14 - 02/06/14 [facility] [id number] Discharge Disposition: Home Physician Attending: Ash Mishra MD Physician Admitting: Ash Mishra MD Reason for Visit BACK PAIN, NUMBNESS, CANNOT EXCLUDE CORD COMPRESSION Vital Signs Most recent to oldest 1 2 3 [Reference Range]: Height 165.1 cm 165.1 cm (02/03/14 9:48 PM) (02/03/14 1:09 PM) Temperature Oral [96.4-99.1 97.8 DegF 97.7 DegF 98.3 DegF DegF] (02/06/14 7:55 AM) (02/06/14 4:00 AM) (02/05/14 11:30 PM) Systolic Blood Pressure 122 mmHg 119 mmHg 112 mmHg [90-140 mmHg] (02/06/14 7:55 AM) (02/06/14 4:00 AM) (02/05/14 11:30 PM) Diastolic Blood Pressure 88 mmHg 78 mmHg 74 mmHg [60-90 mmHg] (02/06/14 7:55 AM) (02/06/14 4:00 AM) (02/05/14 11:30 PM) Respiratory Rate [14-20 16 BRMIN 18 BRMIN 18 BRMIN BRMIN] (02/06/14 7:55 AM) (02/06/14 4:00 AM) (02/05/14 11:30 PM) Peripheral Pulse Rate 67 bpm 69 bpm 85 bpm [60-100 bpm] (02/06/14 7:55 AM) (02/06/14 4:00 AM) (02/05/14 11:30 PM) Weight 100.227 kg 99.545 kg (02/03/14 9:48 PM) (02/03/14 1:09 PM) Body Mass Index 36.77 m2 36.52 m2 (02/03/14 9:48 PM) (02/03/14 1:09 PM) Problem List Condition Effective Dates Status Health Status Informant DM - Diabetes mellitus(Confirmed) Active HTN - Hypertension(Confirmed) Active Stroke(Confirmed) Active Stroke(Confirmed) Resolved Allergies, Adverse Reactions, Alerts Substance Reaction Severity Status NKDA Active Medications acetaminophen-codeine 300 mg-30 mg oral tablet 1 tab, Route: PO, Drug Form: TAB, Dosing Weight 100.227, kg, Q6H, PRN Pain Score 4-6, Start date: 02/04/14 6:06:00, Duration: 30 day, Stop date: 03/06/14 6 :05:00 Notes: Do not exceed 4gm/day of acetaminophen. (Same as: Tylenol with Codeine # 3) Start Date: 02/04/14 Stop Date: 02/06/14 Status: Discontinuedacetaminophen-codeine 300 mg-30 mg oral tablet 1 tab, PO, Q6H, pain Start Date: 02/03/14 Status: Orderedacetaminophen-hydrocodone 325 mg-5 mg oral tablet 1 tab, Route: PO, Drug Form: TAB, Dosing Weight 99.545, kg, Q4H, PRN Pain Score 1-3, Start date: 02/03/14 21:04:00, Duration: 30 day, Stop date: 03/05/14 21:03: 00 Notes: (Same as: [place] 325/5) Do not exceed 4gm/day of acetaminophen. Start Date: 02/03/14 Stop Date: 02/06/14 Status: Discontinuedaspirin 325 mg tablet 325 mg, 1 tab, Route: PO, Drug form: TAB, ONCE, Dosing Weight 99.545, kg, Priority: STAT, Start date: 02/03/14 16:38:00, Stop date: 02/03/14 16:38:00 Notes: Take with food. Start Date: 02/03/14 Stop Date: 02/03/14 Status: Completedaspirin 81 mg tablet, enteric coated 81 mg, 1 tab, Route: PO, Drug form: ECTAB, Daily, Dosing Weight 100.227, kg, Start date: 02/04/14 9:00:00, Duration: 30 day, Stop date: 03/05/14 9:00:00 Notes: Do not crush or chew.(Same As: Ecotrin) Start Date: 02/04/14 Stop Date: 02/06/14 Status: Discontinuedatropine 0.4 mg, 1 mL, Route: IVP, Drug form: INJ, PRN, Dosing Weight 100.227, kg, PRN Bradycardia, Start date: 02/03/14 22:20:00, Stop date: 03/05/14 21:19:00, HR less than 40 Start Date: 02/03/14 Stop Date: 02/06/14 Status: DiscontinuedbusPIRone 20 mg, 2 tab, Route: PO, Drug form: TAB, BID, Dosing Weight 100.227, kg, Start date: 02/04/14 9:00:00, Stop date: 03/05/14 17:00:00 Notes: (Same As: BuSpar) Start Date: 02/04/14 Stop Date: 02/06/14 Status: DiscontinuedbusPIRone 10 mg oral tablet 10 mg=1 tab, PO, BID Start Date: 02/03/14 Status: Orderedcarisoprodol 350 mg oral tablet 350 mg=1 tab, PO, TID, Muscle Spasms Start Date: 02/03/14 Stop Date: 02/06/14 Status: Discontinuedcyclobenzaprine 10 mg oral tablet 10 mg=1 tab, PO, TID, as needed for muscle spasm Start Date: 02/03/14 Status: OrderedDextrose 50% Syringe 25 gm, 50 mL, Route: IVP, Drug Form: INJ, Dosing Weight 99.545, kg, PRN, PRN Blood Glucose Results, Start date: 02/03/14 21:05:00, Duration: 30 day, Stop date: 03/05/14 20:04:00 Start Date: 02/03/14 Stop Date: 02/06/14 Status: DiscontinuedDextrose 50% Syringe 12.5 gm, 25 mL, Route: IVP, Drug Form: INJ, Dosing Weight 99.545, kg, PRN, PRN Blood Glucose Results, Start date: 02/03/14 21:05:00, Duration: 30 day, Stop date: 03/05/14 20:04:00 Start Date: 02/03/14 Stop Date: 02/06/14 Status: Discontinuedescitalopram 20 mg, 1 tab, Route: PO, Drug form: TAB, Daily, Dosing Weight 100.227, kg, Start date: 02/04/14 9:00:00, Duration: 30 day, Stop date: 03/05/14 9:00:00 Notes: (Same as: Lexapro) Start Date: 02/04/14 Stop Date: 02/06/14 Status: Discontinuedfluconazole 100 mg oral tablet 100 mg=1 tab, PO, Daily Start Date: 02/03/14 Stop Date: 02/06/14 Status: Discontinuedfurosemide 20 mg oral tablet 20 mg=1 tab, PO, Daily Start Date: 02/03/14 Status: Orderedgabapentin 300 mg oral capsule 300 mg, 1 cap, Route: PO, Drug form: CAP, TID, Dosing Weight 100.227, kg, Start date: 02/04/14 9:00:00, Duration: 30 day, Stop date: 03/05/14 17:00:00 Notes: (Same as: Neurontin) Start Date: 02/04/14 Stop Date: 02/06/14 Status: Discontinuedgabapentin 300 mg oral capsule 300 mg=1 cap, PO, TID Start Date: 02/03/14 Status: Orderedglucagon 1 mg, Route: IM, Drug form: PDR/INJ, PRN, Dosing Weight 99.545, kg, PRN Blood Glucose Results, Startdate: 02/03/14 21:05:00, Duration: 30 day, Stop date: 04/06 20:04:00 Start Date: 02/03/14 Stop Date: 02/06/14 Status: Discontinuedheparin 5,000 unit, 1 mL, Route: SUB-Q, Drug form: INJ, Q12H, Dosing Weight 100.227, kg , Start date: 02/04/14 9:00:00, Duration: 30 day, Stop date: 03/05/14 21:00:00 Notes: porcine heparin Start Date: 02/04/14 Stop Date: 02/06/14 Status: DiscontinuedHumulin 70/30 20 unit, Route: SUB-Q, BID, Dosing Weight 100.227, kg, Start date: 02/04/14 9:00 :00, Duration: 30 day, Stop date: 03/05/14 17:00:00 Start Date: 02/04/14 Stop Date: 02/04/14 Status: DeletedHumulin 70/30 20 unit, SUB-Q, BID Start Date: 02/03/14 Status: Orderedibuprofen 400 mg, 1 tab, Route: PO, Drug form: TAB, ONCE, Dosing Weight 99.545, kg, Priority: STAT, Start date: 02/03/14 14:43:00, Stop date: 02/03/14 14:43:00 Notes: (Same as: Motrin)"Do Not Crush" Give with food. Start Date: 02/03/14 Stop Date: 02/03/14 Status: Completedinsulin aspart 8 unit, 0.08 mL, Route: SUB-Q, Drug form: SOLN, Sliding Scale, Dosing Weight 99.545, kg, PRN Blood Glucose Results, Start date: 02/03/14 21:05:00, Duration: 30 day, Stop date: 03/05/14 20:04:00 Notes: Roll in palms of hands gently; Do not shake vigorously. (Same as: NovoLOG)"single patient use only" Stable for 28 days at room temperature.Expires in days from Date Start Date: 02/03/14 Stop Date: 02/06/14 Status: Discontinuedinsulin aspart 10 unit, 0.1 mL, Route: SUB-Q, Drug form: SOLN, Sliding Scale, Dosing Weight 99.545, kg, PRN Blood Glucose Results, Start date: 02/03/14 21:05:00, Duration: 30 day, Stop date: 03/05/14 20:04:00 Notes: Roll in palms of hands gently; Do not shake vigorously. (Same as: NovoLOG)"single patient use only" Stable for 28 days at room temperature.Expires in days from Date Start Date: 02/03/14 Stop Date: 02/06/14 Status: Discontinuedinsulin aspart 6 unit, 0.06 mL, Route: SUB-Q, Drug form: SOLN, Sliding Scale, Dosing Weight 99.545, kg, PRN Blood Glucose Results, Start date: 02/03/14 21:05:00, Duration: 30 day, Stop date: 03/05/14 20:04:00 Notes: Roll in palms of hands gently; Do not shake vigorously. (Same as: NovoLOG)"single patient use only" Stable for 28 days at room temperature.Expires in days from Date Start Date: 02/03/14 Stop Date: 02/06/14 Status: Discontinuedinsulin aspart 4 unit, 0.04 mL, Route: SUB-Q, Drug form: SOLN, Sliding Scale, Dosing Weight 99.545, kg, PRN Blood Glucose Results, Start date: 02/03/14 21:05:00, Duration: 30 day, Stop date: 03/05/14 20:04:00 Notes: Roll in palms of hands gently; Do not shake vigorously. (Same as: NovoLOG)"single patient use only" Stable for 28 days at room temperature.Expires in days from Date Start Date: 02/03/14 Stop Date: 02/06/14 Status: Discontinuedinsulin aspart 2 unit, 0.02 mL, Route: SUB-Q, Drug form: SOLN, Sliding Scale, Dosing Weight 99.545, kg, PRN Blood Glucose Results, Start date: 02/03/14 21:05:00, Duration: 30 day, Stop date: 03/05/14 20:04:00 Notes: Roll in palms of hands gently; Do not shake vigorously. (Same as: NovoLOG)"single patient use only" Stable for 28 days at room temperature.Expires in days from Date Start Date: 02/03/14 Stop Date: 02/06/14 Status: DiscontinuedLipitor 20 mg, 2 tab, Route: PO, Drug form: TAB, Bedtime, Dosing Weight 100.227, kg, Start date: 02/04/14 21:00:00, Duration: 30 day, Stop date: 03/05/14 21:00:00 Notes: (Same As: Lipitor) Start Date: 02/04/14 Stop Date: 02/06/14 Status: Discontinuedmeclizine 25 mg oral tablet 25 mg=1 tab, PO, BID Start Date: 02/03/14 Status: OrderedNaprelan '375' 375 mg, 1 tab, Route: PO, Drug form: TAB, Daily, Dosing Weight 100.227, kg, Start date: 02/04/14 9:00:00, Duration: 30 day, Stop date: 03/05/14 9:00:00 Notes: (Same as: Naprosyn) Take with food. Start Date: 02/04/14 Stop Date: 02/06/14 Status: Discontinuednitroglycerin 0.4 mg sublingual tablet 0.4 mg, 1 tab, Route: SL, Drug form: TAB, Q5Min, Dosing Weight 100.227, kg, PRN Chest Pain, Start date: 02/03/14 22:19:00, Duration: 30 day, Stop date: 21:18:00 Notes: (Same as:Nitroquick, Nitrostat)"Do Not Crush" Sublingual tablet Start Date: 02/03/14 Stop Date: 02/06/14 Status: DiscontinuedNovoLOG Mix 70/30 FlexPen 25 unit, 0.25 mL, Route: SUB-Q, Drug form: INJ, BID-Meals, Start date: 02/04/14 8:00:00, Stop date: 03/05/14 17:00:00 Notes: Roll in palms of hands gently; Do not shake vigorously. (Same as: NovoLOG Mix)"single patient use only" Stable for 14 days at room temperatureExpires in days from Date Start Date: 02/04/14 Stop Date: 02/06/14 Status: DiscontinuedpredniSONE 10 mg oral tablet 10 mg=1 tab, PO, Daily Start Date: 02/03/14 Status: OrderedSaline Flush 0.9% 10 mL, Route: IVP, Drug Form: INJ, Dosing Weight 99.545, kg, PRN, PRN Line Flush , Start date: 02/03/14 14:43:00, Duration: 30 day, Stop date: 03/05/14 13:42:00 Notes: Same as: BD Posiflush Sterile Start Date: 02/03/14 Stop Date: 02/06/14 Status: DiscontinuedSEROquel 300 mg, 3 tab, Route: PO, Drug form: TAB, Bedtime, Dosing Weight 100.227, kg, Start date: 02/04/14 21:00:00, Duration: 30 day, Stop date: 03/05/14 21:00:00 Notes: (Same as: SEROquel) Start Date: 02/04/14 Stop Date: 02/06/14 Status: DiscontinuedSkelaxin 800 mg, 1 tab, Route: PO, Drug form: TAB, BID, Dosing Weight 100.227, kg, Start date: 02/04/14 9:00:00, Duration: 30 day, Stop date: 03/05/14 17:00:00 Notes: (Same as: Skelaxin) Start Date: 02/04/14 Stop Date: 02/06/14 Status: DiscontinuedSodium Chloride 0.9% (Bolus) IV 1,000 mL, 1000 ml/hr, Infuse Over: 1 hr, Route: IV, 1,000, Drug form: INJ, ONCE , Priority: STAT, Dosing Weight 99.545 kg, Start date: 02/03/14 14:43:00, Duration: 1 doses or times, Stop date: 02/03/14 14:43:00 Start Date: 02/03/14 Stop Date: 02/03/14 Status: Completedtrazodone 100 mg oral tablet 100 mg=1 tab, PO, Bedtime Start Date: 02/03/14 Status: Ordered Results ELECTROLYTES Most recent to oldest [Reference Range]: 1 2 Sodium Lvl [135-145 mEq/L] 132 mEq/L *LOW* (02/03/14 3:25 PM) Potassium Lvl [3.5-5.1 mEq/L] 3.7 mEq/L (02/03/14 3:25 PM) Chloride Lvl [95-109 mEq/L] 94 mEq/L *LOW* (02/03/14 3:25 PM) CO2 [24-32 mEq/L] 28 mEq/L (02/03/14 3:25 PM) AGAP [10.0-20.0 mEq/L] 13.7 mEq/L (02/03/14 3:25 PM) CHEM PANEL Most recent to oldest [Reference Range]: 1 2 Creatinine Lvl [0.5-1.4 mg/dL] 0.8 mg/dL 0.9 mg/dL (02/04/14 6:31 AM) (02/03/14 3:25 PM) eGFR 103 mL/min/1.73m2 1 89 mL/min/1.73m2 2 *NA* *NA* (02/04/14 6:31 AM) (02/03/14 3:25 PM) BUN [7-22 mg/dL] 14 mg/dL (02/03/14 3:25 PM) B/C Ratio [6-25] 16 (02/03/14 3:25 PM) Glucose Lvl [70-99 mg/dL] 336 mg/dL 3 *HI* (02/03/14 3:25 PM) Total Protein [6.4-8.4 g/dL] 8.0 g/dL (02/03/14 3:25 PM) Albumin Lvl [3.5-5.0 g/dL] 4.4 g/dL (02/03/14 3:25 PM) Globulin [2.0-4.0 g/dL] 3.6 g/dL (02/03/14 3:25 PM) A/G Ratio [0.7-1.6] 1.2 (02/03/14 3:25 PM) Calcium Lvl [8.5-10.5 mg/dL] 9.4 mg/dL (02/03/14 3:25 PM) ALT [0-65 unit/L] 22 unit/L (02/03/14 3:25 PM) AST [0-37 unit/L] 8 unit/L (02/03/14 3:25 PM) Alk Phos [39-136 unit/L] 97 unit/L (02/03/14 3:25 PM) Bili Total [0.2-1.3 mg/dL] 0.5 mg/dL (02/03/14 3:25 PM) Lipase Lvl [73-393 unit/L] 93 unit/L (02/03/14 3:25 PM) 1Result Comment: The eGFR is calculated using the [...] eGFR should be multiplied by the estimated BMI.2Result Comment: The eGFR is calculated using the [...] eGFR should be multiplied by the estimated BMI.3Interpretive Data: Adult reference range values reflect the clinical guidelines of the [place] [employer].CARDIAC ENZYMES Most recent to oldest [Reference Range]: 1 2 Troponin-I [0.00-0.40 ng/mL] <0.02 ng/mL (02/03/14 3:25 PM) URINE AND STOOL Most recent to oldest [Reference Range]: 1 2 UA Turbidity [Clear] Clear (02/03/14 4:20 PM) UA Color Ltyellow *NA* (02/03/14 4:20 PM) UA pH [5.0-8.0] 5.0 (02/03/14 4:20 PM) UA Spec Grav [<=1.030] 1.014 (02/03/14 4:20 PM) UA Glucose [Negative mg/dL] 500 mg/dL *ABN* (02/03/14 4:20 PM) UA Blood [Negative] Negative (02/03/14 4:20 PM) UA Ketones [Negative mg/dL] Negative mg/dL *NA* (02/03/14 4:20 PM) UA Protein [Negative mg/dL] Negative mg/dL (02/03/14 4:20 PM) UA Urobilinogen [0.1-1.0 mg/dL] <=1.0 mg/dL *NA* (02/03/14 4:20 PM) UA Bili [Negative] Negative *NA* (02/03/14 4:20 PM) UA Leuk Est [Negative] Negative (02/03/14 4:20 PM) UA Nitrite [Negative] Negative (02/03/14 4:20 PM) UA WBC [0-5 /HPF] <1 /HPF (02/03/14 4:20 PM) UA RBC [0-2 /HPF] 2 /HPF (02/03/14 4:20 PM) UA Sq Epi None Seen *NA* (02/03/14 4:20 PM) UA Hyal Cast [0-2 /LPF] 2 /LPF (02/03/14 4:20 PM) UA Mucus [None Seen /LPF] Few /LPF *NA* (02/03/14 4:20 PM) IMMUNOLOGY Most recent to oldest [Reference Range]: 1 2 CDC HIV 4th GEN [Negative] Negative (02/03/14 3:25 PM) HEMATOLOGY Most recent to oldest [Reference Range]: 1 2 WBC [3.7-10.4 K/CMM] 10.6 K/CMM *HI* (02/03/14 3:25 PM) RBC [4.20-5.40 M/CMM] 4.55 M/CMM (02/03/14 3:25 PM) Hgb [12.0-16.0 g/dL] 13.3 g/dL (02/03/14 3:25 PM) Hct [36.0-48.0 %] 40.2 % (02/03/14 3:25 PM) MCV [80.0-98.0 fL] 88.3 fL (02/03/14 3:25 PM) MCH [27.0-31.0 pg] 29.3 pg (02/03/14 3:25 PM) MCHC [32.0-36.0 g/dL] 33.2 g/dL (02/03/14 3:25 PM) RDW [11.5-14.5 %] 13.6 % (02/03/14 3:25 PM) Platelet [133-450 K/CMM] 255 K/CMM 281 K/CMM (02/04/14 6:31 AM) (02/03/14 3:25 PM) MPV [7.4-10.4 fL] 10.2 fL (02/03/14 3:25 PM) Segs [45.0-75.0 %] 55.5 % (02/03/14 3:25 PM) Lymphocytes [20.0-40.0 %] 36.7 % (02/03/14 3:25 PM) Monocytes [2.0-12.0 %] 5.0 % (02/03/14 3:25 PM) Eosinophils [0.0-4.0 %] 1.7 % (02/03/14 3:25 PM) Basophils [0.0-1.0 %] 1.1 % *HI* (02/03/14 3:25 PM) Segs-Bands # [1.5-8.1 K/CMM] 5.9 K/CMM (02/03/14 3:25 PM) Lymphocytes # [1.0-5.5 K/CMM] 3.9 K/CMM (02/03/14 3:25 PM) Monocytes # [0.0-0.8 K/CMM] 0.5 K/CMM (02/03/14 3:25 PM) Eosinophils # [0.0-0.5 K/CMM] 0.2 K/CMM (02/03/14 3:25 PM) Basophils # [0.0-0.2 K/CMM] 0.1 K/CMM (02/03/14 3:25 PM) PTT [22.9-35.8 seconds] 24.9 seconds 4 (02/04/14 6:31 AM) 4Interpretive Data: Heparin Therapeutic Range: 57 - 92 Seconds Medications Administered During Your Visit No data available for this section Immunizations Vaccine Date Refusal Reason pneumococcal 23-valent vaccine 11/27/13 Procedures Procedure Type Body Site Date of Procedure Related Diagnosis Abdominal hysterectomy section Spinal fusion Tonsillectomy Social History Social History Type Response Substance Abuse Use: None Sexual Sexually active: No Exercise Times per week: Daily, Exercise type: physical therapy 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 She reports a severe headache at this time, as well as continued lower back pain. She reports that her left leg pain is improving as compared to yesterday, however still feels weak. O: AFVSS IPS Q AT E[facility] G R 5 5 5 5 5 [...]
--- OUTSIDE RECORDS SUMMARY | 2018-12-17 18:57 | XMS REPORT | CCD ---
:1970 Author Organization [facility] Care Team Providers Name Role Phone David Salazar Consulting Provider Allergies, Adverse Reactions, Alerts Substance Reaction Status NKDA Active Problem List Condition Effective Dates Status DM - Diabetes mellitus Active HTN - Hypertension Active Stroke Resolved Medications Medication Instructions Start Date End Date Status ibuprofen 600 mg oral 600 mg, 1 tab, PO, Q6H, PRN, take with food, 30 tab, Pain, Substitution Allowed 12/04/2012 Ordered tablet take with food Flexeril 10 mg oral tablet 10 mg, 1 tab, PO, TID, PRN, 12/04/2012 Ordered 30 tab, for spasm, Substitution Allowed, TAB ondansetron 4 mg, Route: IVP, Drug 12/04/2012 12/04/2012 Completed form: INJ, ONCE, Dosing Weight 100.455, kg, Priority: STAT, Start date: 12/04/12 21:45:00, Stop date: 12/04/12 21:45:00 morphine Sulfate 4 mg, Route: IVP, ONCE, 12/04/2012 12/04/2012 Completed Dosing Weight 100.455, kg, Start date: 12/04/12 21:44:00, Stop date: 12/04/12 21:44:00 Vital Signs Most recent to oldest [Reference Range]: 1 Height 165.1 cm (12/04/2012 17:57:00) Weight 100.455 kg (12/04/2012 17:57:00) Results CHEMISTRY Most recent to oldest [Reference Range]: 1 Sodium Lvl [135-145 mEq/L] 141 mEq/L (12/04/2012 19:35:00) Potassium Lvl [3.5-5.1 mEq/L] 3.9 mEq/L (12/04/2012 19:35:00) Chloride Lvl [95-109 mEq/L] 107 mEq/L (12/04/2012:35:) CO2 [24-32 mEq/L] 25 mEq/L (12/04/2012:35:00) AGAP [10.0-20.0 mEq/L] 12.9 mEq/L (12/04/201235:) Creatinine Lvl [0.5-1.4 mg/dL] 0.8 mg/dL (12/04/201235:00) eGFR 104 mL/min/1.73m2 1 *NA* (12/04/201235:) BUN [7-22 mg/dL] 7 mg/dL (12/04/2012:35:00) B/C Ratio [6-25] 9 (12/04/201235:) Glucose Lvl [70-99 mg/dL] 209 mg/dL 2 *HI* (12/04/201235:00) Total Protein [6.4-8.4 g/dL] 7.4 g/dL (12/04/201235:) Albumin Lvl [3.5-5.0 g/dL] 3.7 g/dL (12/04/2012:35:00) Globulin [2.0-4.0 g/dL] 3.7 g/dL (12/04/2012:35:00) A/G Ratio [0.7-1.6] 1.0 (12/04/2012:35:00) Calcium Lvl [8.5-10.5 mg/dL] 8.4 mg/dL *LOW* (12/04/201235:) ALT [0-65 unit/L] 41 unit/L (12/04/2012:35:00) AST [0-37 unit/L] 43 unit/L *HI* (12/04/2012:35:00) Alk Phos [39-136 unit/L] 70 unit/L (12/04/2012:35:00) Bili Total [0.2-1.3 mg/dL] <0.1 mg/dL *LOW* (12/04/2012:35:00) 1Result Comment: The eGFR is calculated using [...] eGFR should be multiplied by the estimated BMI.2Interpretive Data: Adult reference range values reflect the clinical guidelines of the [place] [employer].HEMATOLOGY Most recent to oldest [Reference Range]: 1 WBC [3.7-10.4 K/CMM] 9.8 K/CMM (12/04/2012:35:00) RBC [4.20-5.40 M/CMM] 3.90 M/CMM *LOW* (12/04/2012:35:00) Hgb [12.0-16.0 g/dL] 11.8 g/dL *LOW* (12/04/2012:35:00) Hct [36.0-48.0 %] 36.4 % (12/04/2012:35:00) MCV [81.0-99.0 fL] 93.4 fL (12/04/2012:35:00) MCH [27.0-31.0 pg] 30.4 pg (12/04/2012:35:00) MCHC [32.0-36.0 g/dL] 32.5 g/dL (12/04/2012:35:00) RDW [11.5-14.5 %] 13.2 % (12/04/2012:35:00) Platelet [133-450 K/CMM] 244 K/CMM (12/04/2012:35:00) MPV [7.4-10.4 fL] 10.1 fL (12/04/2012:35:00) Segs [45.0-75.0 %] 56.3 % (12/04/2012:35:00) Lymphocytes [20.0-40.0 %] 34.4 % (12/04/2012 19:35:00) Monocytes [2.0-12.0 %] 5.8 % (12/04/2012 19:35:00) Eosinophils [0.0-4.0 %] 2.4 % (12/04/2012 19:35:00) Basophils [0.0-1.0 %] 1.1 % *HI* (12/04/2012 19:35:00) Segs-Bands # [1.5-8.1 K/CMM] 5.5 K/CMM (12/04/2012 19:35:00) Lymphocytes # [1.0-5.5 K/CMM] 3.4 K/CMM (12/04/2012 19:35:00) Monocytes # [0.0-0.8 K/CMM] 0.6 K/CMM (12/04/2012 19:35:00) Eosinophils # [0.0-0.5 K/CMM] 0.2 K/CMM (12/04/2012 19:35:00) Basophils # [0.0-0.2 K/CMM] 0.1 K/CMM (12/04/2012 19:35:00) PT [12.0-14.7 seconds] 12.5 seconds (12/04/2012 19:35:00) INR [0.85-1.17] 0.91 3 (12/04/2012 19:35:00) PTT [22.9-35.8 seconds] 25.8 seconds 4 (12/04/2012 19:35:00) 3Interpretive Data: RECOMMENDED RANGES FOR PROTIME INR: 2.0-3.0 for most medical and surgical thromboembolic states. 2.5-3.5 for artificial heart valves and recurrent embolism. INR SHOULD BE USED ONLY FOR PATIENTS ON STABLE ANTICOAGULANT THERAPY.4Interpretive Data: Heparin Therapeutic Range: 57 - 92 Seconds Microbiology Reports PROCEDURE:Culture: Blood STATUS: In Progress BODY SITE: LAC COLLECTED DATE/TIME: 12/04/2012 20:00:00 SOURCE: Blood FREE TEXT SOURCE: PRELIMINARY REPORTS Preliminary ReportNo Growth At 2 Days Preliminary ReportNo Growth At 1 Day Preliminary ReportNo Growth; Holding PROCEDURE:Culture: Blood STATUS: In Progress BODY SITE: Right Arm COLLECTED DATE/TIME: 12/04/2012 20:00:00 SOURCE: Blood FREE TEXT SOURCE: PRELIMINARY REPORTS Preliminary ReportNo Growth At 2 Days Preliminary ReportNo Growth At 1 Day Preliminary ReportNo Growth; Holding
--- OUTSIDE RECORDS SUMMARY | 2018-12-17 18:58 | XMS REPORT | Summary of Care ---
:1970 Author Encounter GAURI Macias(NATALIE) [id number] Date(s): 05/05/14 - 05/06/14 [facility] [id number] Discharge Diagnosis: Hyperglycemia Discharge Diagnosis: Dyspnea Discharge Disposition: Home Physician Attending: Alisson Vann DO Reason for Visit CHEST PAIN Vital Signs Most recent to oldest 1 2 3 [Reference Range]: Height 165.1 cm (05/05/14 2:25 PM) Temperature Oral [96.4-99.1 98.2 DegF 97.9 DegF 97.9 DegF DegF] (05/06/14 5:30 AM) (05/06/14 3:54 AM) (05/06/14 2:31 AM) Systolic Blood Pressure [90-140 124 mmHg 115 mmHg 113 mmHg mmHg] (05/06/14 5:30 AM) (05/06/14 3:54 AM) (05/06/14 2:31 AM) Diastolic Blood Pressure [60-90 81 mmHg 88 mmHg 72 mmHg mmHg] (05/06/14 5:30 AM) (05/06/14 3:54 AM) (05/06/14 2:31 AM) Respiratory Rate [14-20 BRMIN] 20 BRMIN 20 BRMIN 20 BRMIN (05/06/14 5:30 AM) (05/06/14 3:54 AM) (05/06/14 2:31 AM) Peripheral Pulse Rate [60-100 79 bpm 80 bpm 80 bpm bpm] (05/06/14 5:30 AM) (05/06/14 3:54 AM) (05/06/14 2:31 AM) Weight 99.091 kg (05/05/14 2:25 PM) Body Mass Index 36.35 m2 (05/05/14 2:25 PM) Problem List Condition Effective Dates Status Health Status Informant DM - Diabetes mellitus(Confirmed) Active HTN - Hypertension(Confirmed) Active Hyperlipidemia(Confirmed) Active Stroke(Confirmed) Active Stroke(Confirmed) Resolved Allergies, Adverse Reactions, Alerts Substance Reaction Severity Status NKDA Active Medications Insulin regular 10 unit, Route: IVP, ONCE, Dosing Weight 99.091, kg, Priority: STAT, Start date : 05/05/14 22:37:00, Stop date: 05/05/14 22:37:00 Start Date: 05/05/14 Stop Date: 05/05/14 Status: CompletedLevemir 100 units/mL 10 unit, SUB-Q, QPM, # 10 ml, 0 Refill(s) Start Date: 05/06/14 Status: OrderedNorco 5/325 oral tablet 1 tab, Route: PO, Drug Form: TAB, Dosing Weight 99.091, kg, ONCE, STAT, Start date: 05/05/14 22:40:00, Stop date: 05/05/14 22:40:00 Start Date: 05/05/14 Stop Date: 05/05/14 Status: CompletedSodium Chloride 0.9% (Bolus) IV 1,000 mL, 1,000 ml/hr, Infuse Over: 1 Hour, Route: IV, ONCE, Priority: STAT, Dosing Weight 99.091 kg, Start date: 05/05/14 22:37:00, Duration: 1 doses or times, Stop date: 05/05/14 22:37:00 Start Date: 05/05/14 Stop Date: 05/05/14 Status: CompletedSodium Chloride 0.9% (Bolus) IV 1,000 mL, 1,000 ml/hr, Infuse Over: 1 Hour, Route: IV, ONCE, Priority: STAT, Dosing Weight 99.091 kg, Start date: 05/05/14 21:20:00, Duration: 1 doses or times, Stop date: 05/05/14 21:20:00 Start Date: 05/05/14 Stop Date: 05/05/14 Status: Completed Results ELECTROLYTES Most recent to oldest [Reference Range]: 1 Sodium Lvl [135-145 mEq/L] 130 mEq/L *LOW* (05/05/14 6:01 PM) Potassium Lvl [3.5-5.1 mEq/L] 3.7 mEq/L (05/05/14 6:01 PM) Chloride Lvl [95-109 mEq/L] 95 mEq/L (05/05/14 6:01 PM) CO2 [24-32 mEq/L] 25 mEq/L (05/05/14 6:01 PM) AGAP [10.0-20.0 mEq/L] 13.7 mEq/L (05/05/14 6:01 PM) CHEM PANEL Most recent to oldest [Reference Range]: 1 Creatinine Lvl [0.5-1.4 mg/dL] 1.0 mg/dL (05/05/14 6:01 PM) eGFR 79 mL/min/1.73m2 1 *NA* (05/05/14 6:01 PM) BUN [7-22 mg/dL] 9 mg/dL (05/05/14 6:01 PM) B/C Ratio [6-25] 9 (05/05/14 6:01 PM) Glucose Lvl [70-99 mg/dL] 463 mg/dL 2, 3 *CRIT* (05/05/14 6:01 PM) Total Protein [6.4-8.4 g/dL] 8.0 g/dL (05/05/14 6:01 PM) Albumin Lvl [3.5-5.0 g/dL] 4.1 g/dL (05/05/14 6:01 PM) Globulin [2.0-4.0 g/dL] 3.9 g/dL (05/05/14 6:01 PM) A/G Ratio [0.7-1.6] 1.1 (05/05/14 6: PM) Calcium Lvl [8.5-10.5 mg/dL] 9.5 mg/dL (05/05/14 6:01 PM) ALT [0-65 unit/L] 65 unit/L (05/05/14 6:01 PM) AST [0-37 unit/L] 41 unit/L *HI* (05/05/14 6:01 PM) Alk Phos [39-136 unit/L] 134 unit/L (05/05/14 6:01 PM) Bili Total [0.2-1.3 mg/dL] 0.4 mg/dL (05/05/14 6:01 PM) Ketone Quantitative [<=0.27 mmol/L] 0.19 mmol/L (05/05/14 6:01 PM) 1Result Comment: The eGFR is calculated [...] be multiplied by the estimated BMI.2Result Comment: Critical Result(s) called to CHELSIE RODRIGUEZ at 05/05/2014 18:31 by CV. Read back OK.3Interpretive Data: Adult reference range values reflect the clinical guidelines of the [place] [employer].CARDIAC ENZYMES Most recent to oldest [Reference Range]: 1 Total CK [12-191 unit/L] 159 unit/L (05/05/14 6:01 PM) CK MB [0.5-3.6 ng/mL] 0.8 ng/mL (05/05/14 6:01 PM) CK MB Index [0.0-2.5] 0.5 (05/05/14 6:01 PM) Troponin-I [0.00-0.40 ng/mL] <0.02 ng/mL (05/05/14 6:01 PM) URINE AND STOOL Most recent to oldest [Reference Range]: 1 UA Turbidity [Clear] Clear (05/05/14 6:01 PM) UA Color Colorless *NA* (05/05/14 6:01 PM) UA pH [5.0-8.0] 5.0 (05/05/14 6:01 PM) UA Spec Grav [<=1.030] 1.021 (05/05/14 6:01 PM) UA Glucose [Negative mg/dL] 500 mg/dL *ABN* (05/05/14 6:01 PM) UA Blood [Negative] Negative (05/05/14 6:01 PM) UA Ketones [Negative mg/dL] Negative mg/dL *NA* (05/05/14 6:01 PM) UA Protein [Negative mg/dL] Negative mg/dL (05/05/14 6:01 PM) UA Urobilinogen [0.1-1.0 mg/dL] <=1.0 mg/dL *NA* (05/05/14 6:01 PM) UA Bili [Negative] Negative *NA* (05/05/14 6:01 PM) UA Leuk Est [Negative] Negative (05/05/14 6:01 PM) UA Nitrite [Negative] Negative (05/05/14 6:01 PM) UA RBC [0-2 /HPF] 1 /HPF (05/05/14 6:01 PM) UA Sq Epi None Seen *NA* (05/05/14 6:01 PM) HEMATOLOGY Most recent to oldest [Reference Range]: 1 WBC [3.7-10.4 K/CMM] 9.7 K/CMM (05/05/14 6:01 PM) RBC [4.20-5.40 M/CMM] 4.35 M/CMM (05/05/14 6:01 PM) Hgb [12.0-16.0 g/dL] 13.5 g/dL (05/05/14 6:01 PM) Hct [36.0-48.0 %] 39.0 % (05/05/14 6:01 PM) MCV [80.0-98.0 fL] 89.6 fL (05/05/14 6:01 PM) MCH [27.0-31.0 pg] 30.9 pg (05/05/14 6:01 PM) MCHC [32.0-36.0 g/dL] 34.5 g/dL (05/05/14 6:01 PM) RDW [11.5-14.5 %] 13.1 % (05/05/14 6:01 PM) Platelet [133-450 K/CMM] 257 K/CMM (05/05/14 6:01 PM) MPV [7.4-10.4 fL] 10.2 fL (05/05/14 6:01 PM) Segs [45.0-75.0 %] 55.7 % (05/05/14 6:01 PM) Lymphocytes [20.0-40.0 %] 35.7 % (05/05/14 6:01 PM) Monocytes [2.0-12.0 %] 5.7 % (05/05/14 6:01 PM) Eosinophils [0.0-4.0 %] 1.9 % (05/05/14 6:01 PM) Basophils [0.0-1.0 %] 1.0 % (05/05/14 6:01 PM) Segs-Bands # [1.5-8.1 K/CMM] 5.4 K/CMM (05/05/14 6:01 PM) Lymphocytes # [1.0-5.5 K/CMM] 3.5 K/CMM (05/05/14 6:01 PM) Monocytes # [0.0-0.8 K/CMM] 0.6 K/CMM (05/05/14 6:01 PM) Eosinophils # [0.0-0.5 K/CMM] 0.2 K/CMM (05/05/14 6:01 PM) Basophils # [0.0-0.2 K/CMM] 0.1 K/CMM (05/05/14 6:01 PM) RBC Morph Normal (05/05/14 6:01 PM) Plt Morph Normal (05/05/14 6:01 PM) D-Dimer 0.58 ug/mL FEU 4 *NA* (05/06/14 1:16 AM) 4Interpretive Data: In DIC, quantitative D-Dimer is generally greater than 0.66 ug/mL FEU. Values of quantitative D-Dimer less than 0.40 ug/mL FEU have been reported to be associated with a low probability of deep vein thrombosis/pulmonary embolism. This test alone should not be used to rule out DVT/PE. Medications Administered During Your Visit No data available for this section Immunizations Vaccine Date Refusal Reason pneumococcal 23-valent vaccine 11/27/13 Social History Social History Type Response Substance Abuse Use: None Sexual Sexually active: No Exercise Times per week: Daily, Exercise type: physical therapy Employment/School Hazardous equipment operation: No Alcohol Use: Never Smoking Status Never smoker, Exposure to Tobacco Smoke None, Cigarette Smoking Last 365 Days No, Reg Smoking Cessation Counseling No
--- OUTSIDE RECORDS SUMMARY | 2018-12-17 18:58 | XMS REPORT | Summary of Care ---
:1970 Author Encounter GAURI Macias(NATALIE) [id number] Date(s): 08/01/14 - 08/04/14 [facility] [address] [place] [address]- Discharge Disposition: Home Physician Attending: Ash Mishra MD Physician Admitting: Ash Mishra MD Vital Signs Most recent to oldest 1 2 3 [Reference Range]: Height 165.1 cm (08/01/14 11:46 AM) Temperature Oral [96.4-99.1 98.1 DegF 98.2 DegF 97.7 DegF DegF] (08/04/14 4:00 PM) (08/04/14 11:00 AM) (08/04/14 8:00 AM) Blood Pressure [90-140/60-90 118/75 mmHg 134/79 mmHg 133/80 mmHg mmHg] (08/04/14 4:20 PM) (08/04/14 4:00 PM) (08/04/14 3:49 PM) Respiratory Rate [14-20 16 BRMIN 16 BRMIN 16 BRMIN BRMIN] (08/04/14 4:00 PM) (08/04/14 11:00 AM) (08/04/14 8:00 AM) Peripheral Pulse Rate [60-100 96 bpm 88 bpm 94 bpm bpm] (08/04/14 4:20 PM) (08/04/14 4:00 PM) (08/04/14 3:49 PM) Weight 106.364 kg (08/01/14 11:46 AM) Body Mass Index 39.02 m2 (08/01/14 11:46 AM) Problem List Condition Effective Dates Status Health Status Informant DM - Diabetes mellitus(Confirmed) Active HTN - Hypertension(Confirmed) Active Hyperlipidemia(Confirmed) Active Stroke(Confirmed) Active Stroke(Confirmed) Resolved Allergies, Adverse Reactions, Alerts Substance Reaction Severity Status NKDA Active Medications aspirin 81 mg tablet, chewable 324 mg, Route: PO, ONCE, Dosing Weight 106.364, kg, Start date: 08/01/14 15:09: 00, Stop date: 08/01/14 15:09:00 Start Date: 08/01/14 Stop Date: 08/01/14 Status: Completedaspirin 81 mg tablet, enteric coated 81 mg=1 tab, PO, Daily, 0 Refill(s) Start Date: 08/04/14 Status: Orderedaspirin 81 mg tablet, enteric coated 81 mg, 1 tab, Route: PO, Drug form: ECTAB, Daily, Dosing Weight 106.364, kg, Start date: 08/02/14 9:00:00, Duration: 30 day, Stop date: 08/31/14 9:00:00 Notes: Do not crush or chew.(Same As: Ecotrin) Start Date: 08/02/14 Stop Date: 08/04/14 Status: Discontinuedatropine 0.5 mg, 5 mL, Route: IVP, Drug form: INJ, PRN, PRN Bradycardia, Start date: 02/05 21:18:00, Duration: 30 day, Stop date: 08/31/14 21:17:00 Start Date: 08/01/14 Stop Date: 08/04/14 Status: Discontinuedclopidogrel 300 mg, 1 tab, Route: PO, Drug form: TAB, ONCE, Dosing Weight 106.364, kg, Start date: 08/03/14 14:18:00, Duration: 1 doses or times, Stop date: 08/03/14 14:18:00 Notes: ( Same as: Plavix) Start Date: 08/03/14 Stop Date: 08/03/14 Status: CompletedDextrose 50% Syringe 25 gm, 50 mL, Route: IVP, Drug Form: INJ, Dosing Weight 106.364, kg, PRN, PRN Blood Glucose Results,Start date: 08/01/14 18:46:00, Duration: 30 day, Stop date : 08/31/14 18:45:00 Start Date: 08/01/14 Stop Date: 08/04/14 Status: DiscontinuedDextrose 50% Syringe 12.5 gm, 25 mL, Route: IVP, Drug Form: INJ, Dosing Weight 106.364, kg, PRN, PRN Blood Glucose Results, Start date: 08/01/14 18:46:00, Duration: 30 day, Stop date: 08/31/14 18:45:00 Start Date: 08/01/14 Stop Date: 08/04/14 Status: Discontinuedglucagon 1 mg, Route: IM, Drug form: PDR/INJ, PRN, Dosing Weight 106.364, kg, PRN Blood Glucose Results, Start date: 08/01/14 18:46:00, Duration: 30 day, Stop date: 02/05 18:45:00 Start Date: 08/01/14 Stop Date: 08/04/14 Status: Discontinuedhydrochlorothiazide-lisinopril 25 mg-20 mg oral tablet 1 tab, Route: PO, Drug Form: TAB, Dosing Weight 106.364, kg, Daily, Start date: 08/02/14 9:00:00, Duration: 30 day, Stop date: 08/31/14 9:00:00 Start Date: 08/02/14 Stop Date: 08/04/14 Status: Discontinuedinsulin aspart 2 unit, 0.02 mL, Route: SUB-Q, Drug form: SOLN, TID-Before Meals, Dosing Weight 106.364, kg, PRN Blood Glucose Results, Start date: 08/01/14 18:46:00, Duration : 30 day, Stop date: 08/31/14 18:45:00 Notes: Roll in palms of hands gently; Do not shake vigorously. (Same as: NovoLOG)"single patient use only" Stable for 28 days at room temperature.Expires in days from Date Start Date: 08/01/14 Stop Date: 08/04/14 Status: Discontinuedinsulin aspart 1 unit, 0.01 mL, Route: SUB-Q, Drug form: SOLN, TID-Before Meals, Dosing Weight 106.364, kg, PRN Blood Glucose Results, Start date: 08/01/14 18:46:00, Duration : 30 day, Stop date: 08/31/14 18:45:00 Notes: Roll in palms of hands gently; Do not shake vigorously. (Same as: NovoLOG)"single patient use only" Stable for 28 days at room temperature.Expires in days from Date Start Date: 08/01/14 Stop Date: 08/04/14 Status: Discontinuedinsulin aspart 5 unit, 0.05 mL, Route: SUB-Q, Drug form: SOLN, TID-Before Meals, Dosing Weight 106.364, kg, PRN Blood Glucose Results, Start date: 08/01/14 18:46:00, Duration : 30 day, Stop date: 08/31/14 18:45:00 Notes: Roll in palms of hands gently; Do not shake vigorously. (Same as: NovoLOG)"single patient use only" Stable for 28 days at room temperature.Expires in days from Date Start Date: 08/01/14 Stop Date: 08/04/14 Status: Discontinuedinsulin aspart 4 unit, 0.04 mL, Route: SUB-Q, Drug form: SOLN, TID-Before Meals, Dosing Weight 106.364, kg, PRN Blood Glucose Results, Start date: 08/01/14 18:46:00, Duration : 30 day, Stop date: 08/31/14 18:45:00 Notes: Roll in palms of hands gently; Do not shake vigorously. (Same as: NovoLOG)"single patient use only" Stable for 28 days at room temperature.Expires in days from Date Start Date: 08/01/14 Stop Date: 08/04/14 Status: Discontinuedinsulin aspart 3 unit, 0.03 mL, Route: SUB-Q, Drug form: SOLN, TID-Before Meals, Dosing Weight 106.364, kg, PRN Blood Glucose Results, Start date: 08/01/14 18:46:00, Duration : 30 day, Stop date: 08/31/14 18:45:00 Notes: Roll in palms of hands gently; Do not shake vigorously. (Same as: NovoLOG)"single patient use only" Stable for 28 days at room temperature.Expires in days from Date Start Date: 08/01/14 Stop Date: 08/04/14 Status: Discontinuedinsulin detemir 40 unit, 0.4 mL, Route: SUB-Q, Drug form: INJ, Bedtime, Dosing Weight 106.364, kg, Start date: 08/01/14 22:00:00, Stop date: 08/30/14 21:00:00 Notes: Same as LevemirDo not hold insulin without contacting prescriber " single patient use only" Start Date: 08/01/14 Stop Date: 08/04/14 Status: DiscontinuedLasix 40 mg oral tablet 40 mg, 1 tab, Route: PO, Drug form: TAB, Daily, Dosing Weight 106.364, kg, Start date: 08/02/14 9:00:00, Duration: 30 day, Stop date: 08/31/14 9:00:00 Start Date: 08/02/14 Stop Date: 08/04/14 Status: DiscontinuedLasix 40 mg oral tablet 40 mg=1 tab, PO, Daily, # 30 tab, 0 Refill(s) Start Date: 08/01/14 Status: OrderedLevemir FlexTouch 100 units/mL subcutaneous solution 30 unit, SUB-Q, Bedtime, 0 Refill(s) Start Date: 08/01/14 Status: Orderedmagnesium oxide 400 mg, 1 tab, Route: PO, Drug form: TAB, ONCE, Dosing Weight 106.364, kg, Priority: NOW, Start date: 08/04/14 12:40:00, Stop date: 08/04/14 12:40:00 Notes: (Same as: Mag-Ox 400)Magnesium oxide [id number] elemental magnesiumDose= ____mg magnesium oxide (___mg elemental magnesium) Start Date: 08/04/14 Stop Date: 08/04/14 Status: Completedmagnesium sulfate 2 gm, 50 mL, Route: IVPB, Drug form: INJ, ONCE, Dosing Weight 106.364, kg, Total dose=2 gm, Priority: STAT, Start date: 08/04/14 12:40:00, Duration: 1 doses or times, Stop date: 08/04/14 12:40:00 Start Date: 08/04/14 Stop Date: 08/04/14 Status: CompletedmetFORMIN 1000 mg oral tablet 1,000 mg=1 tab, PO, TID, # 30 tab, 0 Refill(s) Start Date: 08/01/14 Status: OrderedmetFORMIN 500 mg oral tablet 1,000 mg, 2 tab, Route: PO, Drug form: TAB, TID, Dosing Weight 106.364, kg, Start date: 08/02/14 9:00:00, Duration: 30 day, Stop date: 08/31/14 17:00:00 Notes: (Same as: Glucophage) Take with meal Start Date: 08/02/14 Stop Date: 08/04/14 Status: Discontinuedmethocarbamol 750 mg, 1 tab, Route: PO, Drug form: TAB, Bedtime, Dosing Weight 106.364, kg, PRN Other -See Comment, Start date: 08/01/14 21:33:00, Duration: 30 day, Stop date: 08/31/14 21:32:00, as needed for musclespasm Notes: (Same as:Robaxin) Start Date: 08/01/14 Stop Date: 08/04/14 Status: Discontinuednitroglycerin 0.4 mg sublingual tablet 0.4 mg, 1 tab, Route: SL, Drug form: TAB, Q5Min, PRN Chest Pain, Start date: 02/05 21:18:00, Duration: 30 day, Stop date: 08/31/14 21:17:00 Notes: (Same as:Nitroquick, Nitrostat)"Do Not Crush" Sublingual tablet Start Date: 08/01/14 Stop Date: 08/04/14 Status: Discontinuednitroglycerin SL Tab 0.4 mg, 1 tab, Route: SL, Drug form: TAB, Q5Min, Dosing Weight 106.364, kg, PRN Chest Pain, Start date: 08/04/14 12:31:00, Duration: 3 doses or times, Stop date : Limited # of times Notes: (Same as:Nitroquick, Nitrostat)"Do Not Crush" Sublingual tablet Start Date: 08/04/14 Stop Date: 08/04/14 Status: Discontinuednitroglycerin SL Tab 0.4 mg, 1 tab, Route: SL, Drug form: TAB, Q5Min, Dosing Weight 106.364, kg, PRN Chest Pain, Start date: 08/01/14 18:46:00, Duration: 3 doses or times, Stop date : Limited # of times Notes: (Same as:Nitroquick, Nitrostat)"Do Not Crush" Sublingual tablet Start Date: 08/01/14 Stop Date: 08/01/14 Status: CompletedNovoLOG PenFill 30 unit, 0.3 mL, Route: SUB-Q, Drug form: SOLN, TID-Before Meals, Dosing Weight 106.364, kg, Start date: 08/02/14 7:30:00, Duration: 30 day, Stop date: 16:30:00 Notes: Roll in palms of hands gently; Do not shake vigorously. (Same as: NovoLOG)"single patient use only" Stable for 28 days at room temperature.Expires in days from Date Start Date: 08/02/14 Stop Date: 08/04/14 Status: DiscontinuedNovoLOG PenFill 100 units/mL subcutaneous solution 30 unit, SUB-Q, TID-Before Meals, # 3 mL, 0 Refill(s) Start Date: 08/01/14 Status: OrderedPROzac 40 mg, 2 cap, Route: PO, Drug form: CAP, Bedtime, Dosing Weight 106.364, kg, Start date: 08/02/14 21:00:00, Duration: 30 day, Stop date: 08/31/14 21:00:00 Notes: (Same as: Prozac, Sarafem) Start Date: 08/02/14 Stop Date: 08/04/14 Status: DiscontinuedPROzac 40 mg oral capsule 40 mg=1 cap, PO, Bedtime, # 30 cap, 0 Refill(s) Start Date: 08/01/14 Status: OrderedRobaxin-750 oral tablet 750 mg=1 tab, PO, Bedtime, PRN Muscle Spasms, # 42 tab, 0 Refill(s) Start Date: 08/01/14 Stop Date: 08/08/14 Status: OrderedSaline Flush 0.9% 10 ml, Route: IVP, Drug Form: INJ, Dosing Weight 106.364, kg, PRN, PRN Line Flush, Start date: 08/01/14 18:46:00, Duration: 30 day, Stop date: 08/31/14 18: 45:00 Notes: (Same as: BD Posiflush) Start Date: 08/01/14 Stop Date: 08/04/14 Status: DiscontinuedSaline Flush 0.9% 10 ml, Route: IVP, Drug Form: INJ, Dosing Weight 106.364, kg, Q12H, Start date: 08/01/14 21:00:00, Duration: 30 day, Stop date: 08/31/14 9:00:00 Notes: (Same as: BD Posiflush) Start Date: 08/01/14 Stop Date: 08/04/14 Status: DiscontinuedTylenol 650 mg, 2 tab, Route: PO, Drug form: TAB, Q4H, Dosing Weight 106.364, kg, PRN Other -See Comment, Start date: 08/01/14 21:35:00, Stop date: 08/31/14 21:34:00 , as needed for headache Notes: Do not exceed 4 gm/day. (Same as: Tylenol) Start Date: 08/01/14 Stop Date: 08/04/14 Status: DiscontinuedTylenol 975 mg, Route: PO, Drug form: TAB, ONCE, Dosing Weight 106.364, kg, Priority: STAT, Start date: 08/01/14 16:17:00, Stop date: 08/01/14 16:17:00 Start Date: 08/01/14 Stop Date: 08/01/14 Status: CompletedXopenex 0.63 mg, 3 mL, Route: NEB, Drug form: SOLN, PRN, Dosing Weight 106.364, kg, PRN Respiratory Protocol, Start date: 08/02/14 7:16:00, Duration: 30 day, Stop date : 09/01/14 7:15:00 Notes: SEE RT DOCUMENTATION (Same as:Xopenex)Non-Formulary Start Date: 08/02/14 Stop Date: 08/04/14 Status: DiscontinuedZocor 40 mg, 1 tab, Route: PO, Drug form: TAB, Bedtime, Dosing Weight 106.364, kg, Start date: 08/02/14 21:00:00, Duration: 30 day, Stop date: 08/31/14 21:00:00 Notes: (Same as: Zocor) Start Date: 08/02/14 Stop Date: 08/04/14 Status: DiscontinuedZocor 40 mg oral tablet 40 mg=1 tab, PO, Bedtime, # 30 tab, 0 Refill(s) Start Date: 08/01/14 Stop Date: 08/31/14 Status: OrderedZyPREXA 10 mg, 1 tab, Route: PO, Drug form: TAB, Bedtime, Dosing Weight 106.364, kg, Start date: 08/02/14 21:00:00, Duration: 30 day, Stop date: 08/31/14 21:00:00 Notes: (Same as: ZyPREXA) Start Date: 08/02/14 Stop Date: 08/04/14 Status: DiscontinuedZyPREXA 10 mg oral tablet 10 mg=1 tab, PO, Bedtime, # 30 tab, 0 Refill(s) Start Date: 08/01/14 Status: Ordered Results ELECTROLYTES Most recent to oldest [Reference Range]: 1 2 3 Sodium Lvl [135-145 mEq/L] 141 mEq/L 133 mEq/L (08/04/14 5:39 AM) *LOW* (08/01/14 12:05 PM) Potassium Lvl [3.5-5.1 mEq/L] 4.0 mEq/L 4.0 mEq/L (08/04/14 5:39 AM) (08/01/14 12:05 PM) Chloride Lvl [95-109 mEq/L] 106 mEq/L 100 mEq/L (08/04/14 5:39 AM) (08/01/14 12:05 PM) CO2 [24-32 mEq/L] 23 mEq/L 23 mEq/L *LOW* *LOW* (08/04/14 5:39 AM) (08/01/14 12:05 PM) AGAP [10.0-20.0 mEq/L] 16.0 mEq/L 14.0 mEq/L (08/04/14 5:39 AM) (08/01/14 12:05 PM) CHEM PANEL Most recent to oldest [Reference Range]: 1 2 3 Creatinine Lvl [0.5-1.4 mg/dL] 0.8 mg/dL 0.8 mg/dL (08/04/14 5:39 AM) (08/01/14 12:05 PM) eGFR 102 mL/min/1.73m2 1 102 mL/min/1.73m2 2 *NA* *NA* (08/04/14 5:39 AM) (08/01/14 12:05 PM) BUN [7-22 mg/dL] 7 mg/dL 9 mg/dL (08/04/14 5:39 AM) (08/01/14 12:05 PM) B/C Ratio [6-25] 9 11 (08/04/14 5:39 AM) (08/01/14 12:05 PM) Glucose Lvl [70-99 mg/dL] 208 mg/dL 3 277 mg/dL 4 *HI* *HI* (08/04/14 5:39 AM) (08/01/14 12:05 PM) Total Protein [6.4-8.4 g/dL] 6.6 g/dL 7.9 g/dL (08/04/14 5:39 AM) (08/01/14 12:05 PM) Albumin Lvl [3.5-5.0 g/dL] 3.4 g/dL 3.7 g/dL *LOW* (08/01/14 12:05 PM) (08/04/14 5:39 AM) Globulin [2.0-4.0 g/dL] 3.2 g/dL 4.2 g/dL (08/04/14 5:39 AM) *HI* (08/01/14 12:05 PM) A/G Ratio [0.7-1.6] 1.1 0.9 (08/04/14 5:39 AM) (08/01/14 12:05 PM) Calcium Lvl [8.5-10.5 mg/dL] 8.8 mg/dL 8.7 mg/dL (08/04/14 5:39 AM) (08/01/14 12:05 PM) Phosphorus [2.5-4.5 mg/dL] 3.0 mg/dL (08/01/14 12:05 PM) Magnesium Lvl [1.8-2.4 mg/dL] 1.7 mg/dL 1.4 mg/dL *LOW* *LOW* (08/04/14 5:39 AM) (08/01/14 12:05 PM) ALT [0-65 unit/L] 53 unit/L 53 unit/L (08/04/14 5:39 AM) (08/01/14 12:05 PM) AST [0-37 unit/L] 42 unit/L 46 unit/L *HI* *HI* (08/04/14 5:39 AM) (08/01/14 12:05 PM) Alk Phos [39-136 unit/L] 81 unit/L 86 unit/L (08/04/14 5:39 AM) (08/01/14 12:05 PM) Bili Total [0.2-1.3 mg/dL] 0.4 mg/dL 0.4 mg/dL (08/04/14 5:39 AM) (08/01/14 12:05 PM) 1Result Comment: The eGFR is calculated [...] values reflect the clinical guidelines of the [place] [employer].4Interpretive Data: Adult reference range values reflect the clinical guidelines of the [place] [employer].CARDIAC ENZYMES Most recent to oldest 1 2 3 [Reference Range]: Total CK [12-191 unit/L] 93 unit/L 110 unit/L 124 unit/L (08/04/14 5:39 AM) (08/02/14 5:37 AM) (08/01/14 12:05 PM) CK MB [0.5-3.6 ng/mL] 0.8 ng/mL <0.5 ng/mL <0.5 ng/mL (08/04/14 5:39 AM) (08/02/14 5:37 AM) (08/01/14 12:05 PM) CK MB Index [0.0-2.5] 0.9 <0.5 <0.4 (08/04/14 5:39 AM) (08/02/14 5:37 AM) (08/01/14 12:05 PM) Troponin-I [0.00-0.40 <0.02 ng/mL <0.02 ng/mL <0.02 ng/mL ng/mL] (08/04/14 5:39 AM) (08/02/14 5:37 AM) (08/01/14 3:14 PM) BNP [<=100 pg/mL] 16 pg/mL 5 (08/04/14 5:39 AM) 5Interpretive Data: Elevated results are in line with increasing severity of congestive heart failure. Minor elevations between 100 and 300 may be seen with Myocardial Ischemia, Sodium retaining drugs, and compensated/treated heart failure.LIPIDS Most recent to oldest [Reference Range]: 1 2 3 CHD Risk [3.90-5.80] 6.50 *HI* (08/04/14 5:39 AM) Chol [<=199 mg/dL] 169 mg/dL (08/04/14 5:39 AM) Trig [<=149 mg/dL] 379 mg/dL *HI* (08/04/14 5:39 AM) HDL [>=61 mg/dL] 26 mg/dL *LOW* (08/04/14 5:39 AM) LDL (Calculated) [<=99 mg/dL] 67 mg/dL (08/04/14 5:39 AM) VLDL 76 *NA* (08/04/14 5:39 AM) THYROID PANEL Most recent to oldest [Reference Range]: 1 2 3 TSH [0.360-3.740 uIU/mL] 1.540 uIU/mL (08/04/14 5:39 AM) ENDOCRINOLOGY Most recent to oldest [Reference Range]: 1 2 3 S Preg [Negative] Negative *NA* (08/02/14 5:37 AM) URINE AND STOOL Most recent to oldest [Reference Range]: 1 2 3 UA Turbidity [Clear] Clear (08/01/14 3:14 PM) UA Color Ltyellow *NA* (08/01/14 3:14 PM) UA pH [5.0-8.0] 5.0 (08/01/14 3:14 PM) UA Spec Grav [<=1.030] 1.024 (08/01/14 3:14 PM) UA Glucose [Negative mg/dL] 500 mg/dL *ABN* (08/01/14 3:14 PM) UA Blood [Negative] Negative (08/01/14 3:14 PM) UA Ketones [Negative mg/dL] Negative mg/dL *NA* (08/01/14 3:14 PM) UA Protein [Negative mg/dL] Negative mg/dL (08/01/14 3:14 PM) UA Urobilinogen [0.1-1.0 mg/dL] <=1.0 mg/dL *NA* (08/01/14 3:14 PM) UA Bili [Negative] Negative *NA* (08/01/14 3:14 PM) UA Leuk Est [Negative] Negative (08/01/14 3:14 PM) UA Nitrite [Negative] Negative (08/01/14 3:14 PM) UA WBC [0-5 /HPF] <1 /HPF (08/01/14 3:14 PM) UA RBC [0-2 /HPF] 3 /HPF *HI* (08/01/14 3:14 PM) UA Sq Epi [Few /LPF] Occasional /LPF *NA* (08/01/14 3:14 PM) HEMATOLOGY Most recent to oldest [Reference Range]: 1 2 3 WBC [3.7-10.4 K/CMM] 7.2 K/CMM 8.4 K/CMM (08/04/14 5:39 AM) (08/01/14 12:05 PM) RBC [4.20-5.40 M/CMM] 3.89 M/CMM 4.21 M/CMM *LOW* (08/01/14:05 PM) (08/04/14 5:39 AM) Hgb [12.0-16.0 g/dL] 12.0 g/dL 13.5 g/dL (08/04/14 5:39 AM) (08/01/14:05 PM) Hct [36.0-48.0 %] 36.5 % 38.7 % (08/04/14 5:39 AM) (08/01/14:05 PM) MCV [80.0-98.0 fL] 93.6 fL 91.9 fL (08/04/14 5:39 AM) (08/01/14:05 PM) MCH [27.0-31.0 pg] 30.9 pg 32.0 pg (08/04/14 5:39 AM) *HI* (08/01/14:05 PM) MCHC [32.0-36.0 g/dL] 33.0 g/dL 34.8 g/dL (08/04/14 5:39 AM) (08/01/14:05 PM) RDW [11.5-14.5 %] 14.0 % 14.0 % (08/04/14 5:39 AM) (08/01/14:05 PM) Platelet [133-450 K/CMM] 216 K/CMM 253 K/CMM (08/04/14 5:39 AM) (08/01/14:05 PM) MPV [7.4-10.4 fL] 10.1 fL 10.2 fL (08/04/14 5:39 AM) (08/01/14 12:05 PM) Segs [45.0-75.0 %] 49.6 % 60.1 % (08/04/14 5:39 AM) (08/01/14 12:05 PM) Lymphocytes [20.0-40.0 %] 38.2 % 30.5 % (08/04/14 5:39 AM) (08/01/14 12:05 PM) Monocytes [2.0-12.0 %] 7.3 % 5.4 % (08/04/14 5:39 AM) (08/01/14 12:05 PM) Eosinophils [0.0-4.0 %] 3.7 % 2.7 % (08/04/14 5:39 AM) (08/01/14 12:05 PM) Basophils [0.0-1.0 %] 1.2 % 1.3 % *HI* *HI* (08/04/14 5:39 AM) (08/01/14 12:05 PM) Segs-Bands # [1.5-8.1 K/CMM] 3.6 K/CMM 5.0 K/CMM (08/04/14 5:39 AM) (08/01/14 12:05 PM) Lymphocytes # [1.0-5.5 K/CMM] 2.7 K/CMM 2.6 K/CMM (08/04/14 5:39 AM) (08/01/14 12:05 PM) Monocytes # [0.0-0.8 K/CMM] 0.5 K/CMM 0.5 K/CMM (08/04/14 5:39 AM) (08/01/14 12:05 PM) Eosinophils # [0.0-0.5 K/CMM] 0.3 K/CMM 0.2 K/CMM (08/04/14 5:39 AM) (08/01/14 12:05 PM) Basophils # [0.0-0.2 K/CMM] 0.1 K/CMM 0.1 K/CMM (08/04/14 5:39 AM) (08/01/14 12:05 PM) PT [12.0-14.7 seconds] 13.0 seconds (08/01/14 12:05 PM) INR [0.85-1.17] 0.98 6 (08/01/14 12:05 PM) PTT [22.9-35.8 seconds] 25.4 seconds 7 (08/01/14 12:05 PM) 6Interpretive Data: RECOMMENDED RANGES FOR PROTIME INR: 2.0-3.0 for most medical and surgical thromboembolic states. 2.5-3.5 for artificial heart valves and recurrent embolism. INR SHOULD BE USED ONLY FOR PATIENTS ON STABLE ANTICOAGULANT THERAPY.7Interpretive Data: Heparin Therapeutic Range: 57 - 92 Seconds Immunizations Vaccine Date Refusal Reason pneumococcal 23-valent vaccine 11/27/13 Procedures Procedure Date Related Diagnosis Body Site Abdominal hysterectomy Cervical discectomy1 section Spinal fusion Tonsillectomy 1anterior cerivical disectomy fusion on November 27, 2013 Social History Social History Type Response Substance Abuse Use: None. Sexual Sexually active: No. Exercise Exercise duration: 30. Exercise frequency: Daily. Exercise type: physical therapy. Employment/School Operates hazardous equipment: No. Alcohol Never Smoking Status Never smoker; Exposure to Tobacco Smoke None; Cigarette Smoking Last 365 Days No; Reg Smoking Cessation Counseling No Assessment and Plan Extracted from: Title: Clinical Document Author: Avtar Vann MD Date: 08/04/14 Progress Note - Daily Raffaele Vann MD [facility] SUBJECTIVE events and progress reviewed recurrent [...] <0.02 (AUG 04) <0.02 (AUG 02) <0.02 (AUG 01) <0.02 (AUG 01 ) CK MB 0.8 (AUG 04) <0.5 (AUG 02) <0.5 (JUL 10) Total CK 93 (AUG 04) 110 (AUG [...]
--- OUTSIDE RECORDS SUMMARY | 2018-12-17 18:58 | XMS REPORT | Summary of Care ---
:1970 Author Organization [facility] Address [address] [address], [place] [address]- Encounter HQ Elvisr_kati(FIN) [id number] Date(s): 12/18/14 - 12/20/14 [facility] [address] [place] [address]- Discharge Disposition: Home Attending Physician: Avtar Vann MD Admitting Physician: Avtar Vann MD Vital Signs Most recent to oldest 1 2 3 [Reference Range]: Height 165.1 cm 165.1 cm 165.1 cm (12/18/14 5:46 PM) (12/18/14 5:45 PM) (12/18/14 8:52 AM) Most recent to oldest 1 2 3 [Reference Range]: Temperature Oral [96.4-99.1 97.9 DegF 98 DegF 98.6 DegF DegF] (12/20/14 12:26 PM) (12/20/14 8:00 AM) (12/20/14 4:22 AM) Most recent to oldest [Reference Range]: 1 2 3 Blood Pressure [90-140/60-90 mmHg] 135/83 mmHg 141/89 mmHg (12/20/14 12:26 PM) *HI* (12/20/14 8:00 AM) Systolic Blood Pressure [90-140 mmHg] 114 mmHg (12/20/14 4:22 AM) Most recent to oldest [Reference Range]: 1 2 3 Diastolic Blood Pressure [60-90 mmHg] 73 mmHg (12/20/14 4:22 AM) Most recent to oldest 1 2 3 [Reference Range]: Respiratory Rate [14-20 BRMIN] 17 BRMIN 18 BRMIN 18 BRMIN (12/20/14 12:26 PM) (12/20/14 8:00 AM) (12/20/14 4:22 AM) Most recent to oldest 1 2 3 [Reference Range]: Peripheral Pulse Rate [60-100 76 bpm 74 bpm 62 bpm bpm] (12/20/14 12:26 PM) (12/20/14 8:00 AM) (12/20/14 4:22 AM) Most recent to oldest 1 2 3 [Reference Range]: Weight 102.273 kg 102.273 kg 104.545 kg (12/18/14 5:46 PM) (12/18/14 5:45 PM) (12/18/14 8:52 AM) Most recent to oldest 1 2 3 [Reference Range]: Body Mass Index 37.52 m2 37.52 m2 38.35 m2 (12/18/14 5:46 PM) (12/18/14 5:45 PM) (12/18/14 8:52 AM) Problem List Condition Effective Dates Status Health Status Informant Chronic pain syndrome1 02/07/14 Active DM - Diabetes mellitus(Confirmed) Active FH: Diabetes mellitus2 12/17/13 Active HTN - Hypertension(Confirmed) Active Hyperlipidemia(Confirmed) Active Stroke(Confirmed) Active Stroke(Confirmed) Resolved 1Data migrated from [email or web address] on 12/16/14.2Data migrated from [email or web address] on 12/16/14. Allergies, Adverse Reactions, Alerts Substance Reaction Severity Status NKDA Active Medications aspirin 324 mg, 4 tab, Route: PO, Drug form: CHEWTAB, ONCE, Dosing Weight 104.545, kg, Priority: STAT, Startdate: 12/18/14 9:08:00, Stop date: 12/18/14 9:08:00 Notes: Take with food. Start Date: 12/18/14 Stop Date: 12/18/14 Status: Completedaspirin 325 mg tablet 325 mg, Route: PO, Drug form: TAB, Daily, Dosing Weight 104.545, kg, Start date : 12/19/14 9:00:00, Duration: 30 day, Stop date: 01/17/15 9:00:00 Start Date: 12/19/14 Stop Date: 12/18/14 Status: Canceledaspirin 81 mg tablet, enteric coated 81 mg, 1 tab, Route: PO, Drug form: ECTAB, Daily, Dosing Weight 104.545, kg, Start date: 12/19/14 9:00:00, Duration: 30 day, Stop date: 01/17/15 9:00:00 Notes: Do not crush or chew.(Same As: Ecotrin) Start Date: 12/19/14 Stop Date: 12/20/14 Status: Discontinuedatropine 0.5 mg, 5 mL, Route: IVP, Drug form: INJ, PRN, PRN Bradycardia, Start date: 16:49:00, Duration: 30 day, Stop date: 01/17/15 16:48:00 Start Date: 12/18/14 Stop Date: 12/20/14 Status: DiscontinuedDextrose 50% Syringe 12.5 gm, 25 mL, Route: IVP, Drug Form: INJ, Dosing Weight 104.545, kg, PRN, PRN Blood Glucose Results, Start date: 12/18/14 14:48:00, Duration: 30 day, Stop date: 01/17/15 14:47:00 Start Date: 12/18/14 Stop Date: 12/18/14 Status: DiscontinuedDextrose 50% Syringe 25 gm, 50 mL, Route: IVP, Drug Form: INJ, Dosing Weight 104.545, kg, PRN, PRN Blood Glucose Results,Start date: 12/18/14 14:48:00, Duration: 30 day, Stop date : 01/17/15 14:47:00 Start Date: 12/18/14 Stop Date: 12/18/14 Status: Discontinuedfenofibrate 160 mg oral tablet 160 mg, 1 tab, Route: PO, Drug form: TAB, Dinner, Dosing Weight 102.273, kg, Start date: 12/20/14 17:00:00, Duration: 30 day, Stop date: 01/18/15 17:00:00 Start Date: 12/20/14 Stop Date: 12/20/14 Status: Deletedfurosemide 20 mg oral tablet 20 mg=1 tab, PO, Daily, 0 Refill(s) Start Date: 12/18/14 Status: Orderedfurosemide 20 mg oral tablet 20 mg, 1 tab, Route: PO, Drug form: TAB, Daily, Dosing Weight 104.545, kg, Start date: 12/19/14 9:00:00, Duration: 30 day, Stop date: 01/17/15 9:00:00 Notes: (Same as: Lasix) May cause GI upset. Give with food or milk. Start Date: 12/19/14 Stop Date: 12/20/14 Status: Discontinuedglucagon 1 mg, Route: IM, Drug form: PDR/INJ, PRN, Dosing Weight 104.545, kg, PRN Blood Glucose Results, Start date: 12/18/14 14:48:00, Duration: 30 day, Stop date: 14:47:00 Start Date: 12/18/14 Stop Date: 12/18/14 Status: Discontinuedhydrochlorothiazide 25 mg oral tablet 25 mg, 1 tab, Route: PO, Drug form: TAB, Daily, Start date: 12/19/14 9:00:00, Duration: 30 day, Stopdate: 01/17/15 9:00:00 Notes: (Same as: Hydrodiuril) With food. Start Date: 12/19/14 Stop Date: 12/20/14 Status: Discontinuedhydrochlorothiazide-lisinopril 25 mg-20 mg oral tablet 1 tab, Route: PO, Drug Form: TAB, Dosing Weight 104.545, kg, Daily, Start date: 12/19/14 9:00:00, Duration: 30 day, Stop date: 01/17/15 9:00:00 Start Date: 12/19/14 Stop Date: 12/18/14 Status: DeletedImitrex 50 mg oral tablet 50 mg=1 tab, PO, ONCE, PRN Headache, may repeat one time after 2 hours Special Instructions: may repeat one time after 2 hours Start Date: 12/18/14 Status: OrderedImitrex 50 mg oral tablet 50 mg, 2 tab, Route: PO, Drug form: TAB, ONCE, Dosing Weight 104.545, kg, PRN Headache 1-5, Start date: 12/18/14 16:05:00 Notes: (Same As: Imitrex) Start Date: 12/18/14 Stop Date: 12/18/14 Status: Completedinsulin aspart 2 unit, 0.02 mL, Route: SUB-Q, Drug form: SOLN, TID-Before Meals, Dosing Weight 104.545, kg, PRN Blood Glucose Results, Start date: 12/18/14 14:48:00, Duration : 30 day, Stop date: 01/17/15 14:47:00 Notes: Roll in palms of hands gently; Do not shake vigorously. (Same as: NovoLOG)"single patient use only" Stable for 28 days at room temperature.Expires in days from Date Start Date: 12/18/14 Stop Date: 12/18/14 Status: Discontinuedinsulin aspart 8 unit, 0.08 mL, Route: SUB-Q, Drug form: SOLN, TID-Before Meals, Dosing Weight 104.545, kg, PRN Blood Glucose Results, Start date: 12/18/14 14:48:00, Duration : 30 day, Stop date: 01/17/15 14:47:00 Notes: Roll in palms of hands gently; Do not shake vigorously. (Same as: NovoLOG)"single patient use only" Stable for 28 days at room temperature.Expires in days from Date Start Date: 12/18/14 Stop Date: 12/18/14 Status: Discontinuedinsulin aspart 10 unit, 0.1 mL, Route: SUB-Q, Drug form: SOLN, TID-Before Meals, Dosing Weight 104.545, kg, PRN Blood Glucose Results, Start date: 12/18/14 14:48:00, Duration : 30 day, Stop date: 01/17/15 14:47:00 Notes: Roll in palms of hands gently; Do not shake vigorously. (Same as: NovoLOG)"single patient use only" Stable for 28 days at room temperature.Expires in days from Date Start Date: 12/18/14 Stop Date: 12/18/14 Status: Discontinuedinsulin aspart 4 unit, 0.04 mL, Route: SUB-Q, Drug form: SOLN, TID-Before Meals, Dosing Weight 104.545, kg, PRN Blood Glucose Results, Start date: 12/18/14 14:48:00, Duration : 30 day, Stop date: 01/17/15 14:47:00 Notes: Roll in palms of hands gently; Do not shake vigorously. (Same as: NovoLOG)"single patient use only" Stable for 28 days at room temperature.Expires in days from Date Start Date: 12/18/14 Stop Date: 12/18/14 Status: Discontinuedinsulin aspart 6 unit, 0.06 mL, Route: SUB-Q, Drug form: SOLN, TID-Before Meals, Dosing Weight 104.545, kg, PRN Blood Glucose Results, Start date: 12/18/14 14:48:00, Duration : 30 day, Stop date: 01/17/15 14:47:00 Notes: Roll in palms of hands gently; Do not shake vigorously. (Same as: NovoLOG)"single patient use only" Stable for 28 days at room temperature.Expires in days from Date Start Date: 12/18/14 Stop Date: 12/18/14 Status: Discontinuedinsulin aspart 4 unit, 0.04 mL, Route: SUB-Q, Drug form: SOLN, PRN, Dosing Weight 104.545, kg, PRN Blood Glucose Results, Start date: 12/18/14 11:00:00, Duration: 30 day, Stop date: 01/17/15 10:59:00 Notes: Roll in palms of hands gently; Do not shake vigorously. (Same as: NovoLOG)"single patient use only" Stable for 28 days at room temperature.Expires in days from Date Start Date: 12/18/14 Stop Date: 12/20/14 Status: Discontinuedinsulin aspart 5 unit, 0.05 mL, Route: SUB-Q, Drug form: SOLN, PRN, Dosing Weight 104.545, kg, PRN Blood Glucose Results, Start date: 12/18/14 11:00:00, Duration: 30 day, Stop date: 01/17/15 10:59:00 Notes: Roll in palms of hands gently; Do not shake vigorously. (Same as: NovoLOG)"single patient use only" Stable for 28 days at room temperature.Expires in days from Date Start Date: 12/18/14 Stop Date: 12/20/14 Status: Discontinuedinsulin aspart 2 unit, 0.02 mL, Route: SUB-Q, Drug form: SOLN, PRN, Dosing Weight 104.545, kg, PRN Blood Glucose Results, Start date: 12/18/14 11:00:00, Duration: 30 day, Stop date: 01/17/15 10:59:00 Notes: Roll in palms of hands gently; Do not shake vigorously. (Same as: NovoLOG)"single patient use only" Stable for 28 days at room temperature.Expires in days from Date Start Date: 12/18/14 Stop Date: 12/20/14 Status: Discontinuedinsulin aspart 3 unit, 0.03 mL, Route: SUB-Q, Drug form: SOLN, PRN, Dosing Weight 104.545, kg, PRN Blood Glucose Results, Start date: 12/18/14 11:00:00, Duration: 30 day, Stop date: 01/17/15 10:59:00 Notes: Roll in palms of hands gently; Do not shake vigorously. (Same as: NovoLOG)"single patient use only" Stable for 28 days at room temperature.Expires in days from Date Start Date: 12/18/14 Stop Date: 12/20/14 Status: Discontinuedinsulin aspart 1 unit, 0.01 mL, Route: SUB-Q, Drug form: SOLN, PRN, Dosing Weight 104.545, kg, PRN Blood Glucose Results, Start date: 12/18/14 10:59:00, Duration: 30 day, Stop date: 01/17/15 10:58:00 Notes: Roll in palms of hands gently; Do not shake vigorously. (Same as: NovoLOG)"single patient use only" Stable for 28 days at room temperature.Expires in days from Date Start Date: 12/18/14 Stop Date: 12/20/14 Status: Discontinuedinsulin detemir 30 unit, 0.3 mL, Route: SUB-Q, Drug form: INJ, Bedtime, Dosing Weight 104.545, kg, Start date: 12/18/14 21:00:00, Duration: 30 day, Stop date: 01/16/15 21:00: 00 Notes: Same as LevemirDo not hold insulin without contacting prescriber " single patient use only" Start Date: 12/18/14 Stop Date: 12/20/14 Status: DiscontinuedInsulin regular 6 unit, Route: IV, ONCE, Dosing Weight 104.545, kg, Start date: 12/18/14 13:35: 00, Stop date: 12/18/14 13:35:00 Start Date: 12/18/14 Stop Date: 12/18/14 Status: CompletedInsulin regular 10 unit, 0.1 mL, Route: IVP, Drug form: INJ, ONCE, Dosing Weight 104.545, kg, Priority: STAT, Start date: 12/18/14 9:07:00, Stop date: 12/18/14 9:07:00 Notes: (Same as: Humulin R and NovoLIN R) (Do not shake) Start Date: 12/18/14 Stop Date: 12/18/14 Status: CompletedLipitor 80 mg, 2 tab, Route: PO, Drug form: TAB, Bedtime, Dosing Weight 104.545, kg, Start date: 12/18/14 21:00:00, Duration: 30 day, Stop date: 01/16/15 21:00:00 Notes: (Same as: Lipitor) Start Date: 12/18/14 Stop Date: 12/20/14 Status: DiscontinuedLipitor 80 mg oral tablet 80 mg=1 tab, PO, Bedtime, 0 Refill(s) Start Date: 12/18/14 Status: OrderedmetFORMIN 500 mg oral tablet 1,000 mg, 2 tab, Route: PO, Drug form: TAB, BID, Dosing Weight 104.545, kg, Start date: 12/18/14 17:00:00, Duration: 30 day, Stop date: 01/17/15 9:00:00 Notes: (Same as: Glucophage) Take with meal Start Date: 12/18/14 Stop Date: 12/20/14 Status: Discontinuedmethocarbamol 750 mg, 1 tab, Route: PO, Drug form: TAB, Bedtime, Dosing Weight 104.545, kg, PRN Muscle Spasms, Start date: 12/18/14 16:04:00, Duration: 30 day, Stop date: 01/17/15 16:03:00 Notes: (Same as:Robaxin) Start Date: 12/18/14 Stop Date: 12/20/14 Status: Discontinuednitroglycerin 2% ointment 1 inch, Route: TOP, Drug Form: OINT, Dosing Weight 104.545, kg, ONCE, STAT, Start date: 12/18/14 9:08:00, Stop date: 12/18/14 9:08:00 Notes: 1 gram is approximately 1 inch of nitroglycerin ointment (20 mg NTG per gram) (Same as:Nitro-Bid) Start Date: 12/18/14 Stop Date: 12/18/14 Status: Completednitroglycerin SL Tab 0.4 mg, 1 tab, Route: SL, Drug form: TAB, Q5Min, Dosing Weight 104.545, kg, PRN Chest Pain, Start date: 12/18/14 14:49:00, Duration: 3 doses or times, Stop date : Limited # of times Notes: (Same as:Nitroquick, Nitrostat)"Do Not Crush" Sublingual tablet Start Date: 12/18/14 Stop Date: 12/20/14 Status: DiscontinuedNovoLOG PenFill 40 unit, 0.4 mL, Route: SUB-Q, Drug form: SOLN, TID-Before Meals, Dosing Weight 104.545, kg, Start date: 12/18/14 16:30:00, Stop date: 01/17/15 11:30:00 Notes: Roll in palms of hands gently; Do not shake vigorously. (Same as: NovoLOG)"single patient use only" Stable for 28 days at room temperature.Expires in days from Date Start Date: 12/18/14 Stop Date: 12/20/14 Status: DiscontinuedPrinivil 20 mg, 1 tab, Route: PO, Drug form: TAB, Daily, Start date: 12/19/14 9:00:00, Duration: 30 day, Stopdate: 01/17/15 9:00:00 Notes: (Same as: Prinivil, Zestril) Start Date: 12/19/14 Stop Date: 12/20/14 Status: DiscontinuedPROzac 40 mg, 2 cap, Route: PO, Drug form: CAP, Bedtime, Dosing Weight 104.545, kg, Start date: 12/18/14 21:00:00, Duration: 30 day, Stop date: 01/16/15 21:00:00 Notes: (Same as: Prozac, Sarafem) Start Date: 12/18/14 Stop Date: 12/20/14 Status: DiscontinuedSaline Flush 0.9% 10 mL, Route: IVP, Drug Form: INJ, Dosing Weight 104.545, kg, PRN, PRN Line Flush, Start date: 12/18/14 9:08:00, Duration: 30 day, Stop date: 01/17/15 9:07: 00 Notes: Same as: BD Posiflush Sterile Start Date: 12/18/14 Stop Date: 12/18/14 Status: DiscontinuedSaline Flush 0.9% 10 ml, Route: IVP, Drug Form: INJ, Dosing Weight 104.545, kg, PRN, PRN Line Flush, Start date: 12/18/14 14:49:00, Duration: 30 day, Stop date: 01/17/15 14: 48:00 Notes: (Same as: BD Posiflush) Start Date: 12/18/14 Stop Date: 12/20/14 Status: DiscontinuedSaline Flush 0.9% 10 ml, Route: IVP, Drug Form: INJ, Dosing Weight 104.545, kg, Q12H, Start date: 12/18/14 21:00:00, Duration: 30 day, Stop date: 01/17/15 9:00:00 Notes: (Same as: BD Posiflush) Start Date: 12/18/14 Stop Date: 12/20/14 Status: DiscontinuedSodium Chloride 0.9% (Bolus) IV 500 mL, 500 ml/hr, Infuse Over: 1 hr, Route: IV, ONCE, Priority: STAT, Dosing Weight 104.545 kg, Start date: 12/18/14 9:51:00, Duration: 1 doses or times, Stop date: 12/18/14 9:51:00 Start Date: 12/18/14 Stop Date: 12/18/14 Status: CompletedTopamax 25 mg, 1 tab, Route: PO, Drug form: TAB, Q12H, Dosing Weight 102.273, kg, Start date: 12/20/14 21:00:00, Duration: 30 day, Stop date: 01/19/15 9:00:00 Notes: (Same As: Topamax)"Do Not Crush" Start Date: 12/20/14 Stop Date: 12/20/14 Status: CanceledTriCor 145 mg, 1 tab, Route: PO, Drug form: TAB, After Dinner, Start date: 12/20/14 17: 00:00, Duration: 30 day, Stop date: 01/18/15 17:00:00 Notes: (Same as: Tricor) Start Date: 12/20/14 Stop Date: 12/20/14 Status: DiscontinuedTylenol 650 mg, 2 tab, Route: PO, Drug form: TAB, Q6H, Dosing Weight 102.273, kg, PRN Headache 1-5, Start date: 12/20/14 9:15:00, Duration: 30 day, Stop date: 9:14:00 Notes: Do not exceed 4 gm/day. (Same as: Tylenol) Start Date: 12/20/14 Stop Date: 12/20/14 Status: DiscontinuedTylenol 650 mg, Route: PO, ONCE, Dosing Weight 104.545, kg, Start date: 12/18/14 13:48: 00, Stop date: 12/18/14 13:48:00 Start Date: 12/18/14 Stop Date: 12/18/14 Status: Completedverapamil 120 mg, 1 tab, Route: PO, Drug form: TAB, BID, Dosing Weight 104.545, kg, Start date: 12/18/14 17:00:00, Duration: 30 day, Stop date: 01/17/15 9:00:00 Notes: (Same As: Matthew Alfaro) "Avoid grapefruit and grapefruit juice" Start Date: 12/18/14 Stop Date: 12/20/14 Status: Discontinuedverapamil 120 mg oral tablet 120 mg=1 tab, PO, BID, 0 Refill(s) Start Date: 12/18/14 Status: OrderedZyPREXA 10 mg, 1 tab, Route: PO, Drug form: TAB, Bedtime, Dosing Weight 104.545, kg, Start date: 12/18/14 21:00:00, Duration: 30 day, Stop date: 01/16/15 21:00:00 Notes: (Same as: ZyPREXA) Start Date: 12/18/14 Stop Date: 12/20/14 Status: Discontinued Results ELECTROLYTES Most recent to oldest [Reference Range]: 1 2 3 Sodium Lvl [135-145 mEq/L] 138 mEq/L 133 mEq/L (12/19/14 10:52 AM) *LOW* (12/18/14 9:20 AM) Potassium Lvl [3.5-5.1 mEq/L] 3.9 mEq/L 3.6 mEq/L (12/19/14 10:52 AM) (12/18/14 9:20 AM) Chloride Lvl [95-109 mEq/L] 103 mEq/L 98 mEq/L (12/19/14 10:52 AM) (12/18/14 9:20 AM) CO2 [24-32 mEq/L] 25 mEq/L 21 mEq/L (12/19/14 10:52 AM) *LOW* (12/18/14 9:20 AM) AGAP [10.0-20.0 mEq/L] 13.9 mEq/L 17.6 mEq/L (12/19/14 10:52 AM) (12/18/14 9:20 AM) CHEM PANEL Most recent to oldest [Reference Range]: 1 2 3 Creatinine Lvl [0.5-1.4 mg/dL] 1.0 mg/dL 0.9 mg/dL (12/19/14 10:52 AM) (12/18/14 9:20 AM) eGFR 78 mL/min/1.73m2 1 89 mL/min/1.73m2 2 *NA* *NA* (12/19/14 10:52 AM) (12/18/14 9:20 AM) BUN [7-22 mg/dL] 10 mg/dL 9 mg/dL (12/19/14 10:52 AM) (12/18/14 9:20 AM) B/C Ratio [6-25] 10 10 (12/19/14 10:52 AM) (12/18/14 9:20 AM) Glucose Lvl [70-99 mg/dL] 352 mg/dL 385 mg/dL *HI* *HI* (12/19/14 10:52 AM) (12/18/14 9:20 AM) Total Protein [6.4-8.4 g/dL] 7.2 g/dL 7.8 g/dL (12/19/14 10:52 AM) (12/18/14 9:20 AM) Albumin Lvl [3.5-5.0 g/dL] 3.4 g/dL 3.8 g/dL *LOW* (12/18/14 9:20 AM) (12/19/14 10:52 AM) Globulin [2.0-4.0 g/dL] 3.8 g/dL 4.0 g/dL (12/19/14 10:52 AM) (12/18/14 9:20 AM) A/G Ratio [0.7-1.6] 0.9 1.0 (12/19/14 10:52 AM) (12/18/14 9:20 AM) Calcium Lvl [8.5-10.5 mg/dL] 8.9 mg/dL 9.1 mg/dL (12/19/14 10:52 AM) (12/18/14 9:20 AM) Magnesium Lvl [1.8-2.4 mg/dL] 1.5 mg/dL *LOW* (12/19/14 10:52 AM) ALT [0-65 unit/L] 42 unit/L 31 unit/L (12/19/14 10:52 AM) (12/18/14 9:20 AM) AST [0-37 unit/L] 33 unit/L 16 unit/L (12/19/14 10:52 AM) (12/18/14 9:20 AM) Alk Phos [39-136 unit/L] 84 unit/L 80 unit/L (12/19/14 10:52 AM) (12/18/14 9:20 AM) Bili Total [0.2-1.3 mg/dL] 0.4 mg/dL 0.4 mg/dL (12/19/14 10:52 AM) (12/18/14 9:20 AM) Procalcitonin Lvl [0.00-0.10 ng/mL] <0.05 ng/mL (12/19/14 10:52 AM) 1Result Comment: The eGFR is calculated using [...] eGFR should be multiplied by the estimated BMI.CARDIAC ENZYMES Most recent to oldest 1 2 3 [Reference Range]: Total CK [12-191 unit/L] 72 unit/L 81 unit/L 83 unit/L (12/19/14 10:52 AM) (12/18/14 9:50 PM) (12/18/14 4:01 PM) CK MB [0.5-3.6 ng/mL] <0.5 ng/mL <0.5 ng/mL <0.5 ng/mL (12/19/14 10:52 AM) (12/18/14 9:50 PM) (12/18/14 4:01 PM) CK MB Index [0.0-2.5] <0.7 <0.6 <0.6 (12/19/14 10:52 AM) (12/18/14 9:50 PM) (12/18/14 4:01 PM) Troponin-I [0.00-0.40 ng/mL] <0.02 ng/mL <0.02 ng/mL <0.02 ng/mL (12/19/14 10:52 AM) (12/18/14 9:50 PM) (12/18/14 4:01 PM) BNP [<=100 pg/mL] 3 pg/mL (12/19/14 10:52 AM) LIPIDS Most recent to oldest [Reference Range]: 1 2 3 CHD Risk [3.90-5.80] 7.15 *HI* (12/19/14 10:52 AM) Chol [<=199 mg/dL] 186 mg/dL (12/19/14 10:52 AM) Trig [<=149 mg/dL] 744 mg/dL *HI* (12/19/14 10:52 AM) HDL [>=61 mg/dL] 26 mg/dL *LOW* (12/19/14 10:52 AM) LDL (Calculated) [<=99 mg/dL] See Note mg/dL 3 *NA* (12/19/14 10:52 AM) VLDL See Note 4 *NA* (12/19/14 10:52 AM) 3Result Comment: LDL cholesterol cannot be calculated due to very high triglycerides (>400 mg/dL). Recommend Direct LDL if clinically indicated.4Result Comment: VLDL - Cholesterol level cannot be accurately calculated due to very high triglycerides (>400 mg/dL).SPECIAL CHEMISTRY Most recent to oldest [Reference Range]: 1 2 3 Hgb A1C [<=5.6 %] 14.4 % *HI* (12/19/14 10:52 AM) THYROID PANEL Most recent to oldest [Reference Range]: 1 2 3 TSH [0.360-3.740 uIU/mL] 1.360 uIU/mL (12/19/14 10:52 AM) IMMUNOLOGY Most recent to oldest [Reference Range]: 1 2 3 CDC HIV 4th GEN [Negative] Negative (12/18/14 9:20 AM) HEMATOLOGY Most recent to oldest [Reference Range]: 1 2 3 WBC [3.7-10.4 K/CMM] 6.8 K/CMM 7.7 K/CMM (12/19/14 10:52 AM) (12/18/14 9:20 AM) RBC [4.20-5.40 M/CMM] 4.18 M/CMM 4.36 M/CMM *LOW* (12/18/14 9:20 AM) (12/19/14 10:52 AM) Hgb [12.0-16.0 g/dL] 13.2 g/dL 13.6 g/dL (12/19/14 10:52 AM) (12/18/14 9:20 AM) Hct [36.0-48.0 %] 38.6 % 39.8 % (12/19/14 10:52 AM) (12/18/14 9:20 AM) MCV [80.0-98.0 fL] 92.2 fL 91.3 fL (12/19/14 10:52 AM) (12/18/14 9:20 AM) MCH [27.0-31.0 pg] 31.5 pg 31.1 pg *HI* *HI* (12/19/14 10:52 AM) (12/18/14 9:20 AM) MCHC [32.0-36.0 g/dL] 34.2 g/dL 34.1 g/dL (12/19/14 10:52 AM) (12/18/14 9:20 AM) RDW [11.5-14.5 %] 13.7 % 13.6 % (12/19/14 10:52 AM) (12/18/14 9:20 AM) Platelet [133-450 K/CMM] 219 K/CMM 226 K/CMM (12/19/14 10:52 AM) (12/18/14 9:20 AM) MPV [7.4-10.4 fL] 10.8 fL 10.6 fL *HI* *HI* (12/19/14 10:52 AM) (12/18/14 9:20 AM) Segs [45.0-75.0 %] 59.1 % 53.1 % (12/19/14 10:52 AM) (12/18/14 9:20 AM) Lymphocytes [20.0-40.0 %] 31.4 % 35.9 % (12/19/14 10:52 AM) (12/18/14 9:20 AM) Monocytes [2.0-12.0 %] 5.9 % 7.3 % (12/19/14 10:52 AM) (12/18/14 9:20 AM) Eosinophils [0.0-4.0 %] 2.4 % 2.6 % (12/19/14 10:52 AM) (12/18/14 9:20 AM) Basophils [0.0-1.0 %] 1.2 % 1.1 % *HI* *HI* (12/19/14 10:52 AM) (12/18/14 9:20 AM) Segs-Bands # [1.5-8.1 K/CMM] 4.0 K/CMM 4.1 K/CMM (12/19/14 10:52 AM) (12/18/14 9:20 AM) Lymphocytes # [1.0-5.5 K/CMM] 2.1 K/CMM 2.8 K/CMM (12/19/14 10:52 AM) (12/18/14 9:20 AM) Monocytes # [0.0-0.8 K/CMM] 0.4 K/CMM 0.6 K/CMM (12/19/14 10:52 AM) (12/18/14 9:20 AM) Eosinophils # [0.0-0.5 K/CMM] 0.2 K/CMM 0.2 K/CMM (12/19/14 10:52 AM) (12/18/14 9:20 AM) Basophils # [0.0-0.2 K/CMM] 0.1 K/CMM 0.1 K/CMM (12/19/14 10:52 AM) (12/18/14 9:20 AM) D-Dimer 0.44 ug/mL FEU *NA* (12/19/14 10:52 AM) Immunizations Vaccine Date Refusal Reason pneumococcal 23-valent [...] Clinical Document Author: Avtar Vann MD Date: 12/19/14 Progress Note - Daily Raffaele Vann MD [facility] SUBJECTIVE events and progress reviewed recurrent [...] <0.02 (DEC 19) <0.02 (DEC 18) <0.02 (DEC 18) <0.02 (DEC 18 ) CK MB <0.5 (DEC 19) <0.5 (DEC 18) <0.5 (DEC 18) <0.5 (DEC 18) Total CK 72 (DEC [...] 3. Further cardiac evaluation pending clinical course & chest CT results
--- OUTSIDE RECORDS SUMMARY | 2018-12-17 18:58 | XMS REPORT | Summary of Care ---
:1970 Author Encounter [facility] Gilberto(NATALIE) [id number] Date(s): 03/06/14 - 03/06/14 [facility] [address] Discharge Disposition: Home Physician Attending: Alvarado Perez MD Physician Admitting: Alvarado Perez MD Reason for Visit CHEST PAIN Vital Signs Most recent to oldest 1 2 3 [Reference Range]: Height 165.1 cm 165.1 cm (03/06/14 3:15 PM) (03/06/14 7:38 AM) Current Weight 100 kg (03/06/14 3:15 PM) Temperature Oral [96.4-99.1 97.7 DegF 97.9 DegF 97.8 DegF DegF] (03/06/14 4:00 PM) (03/06/14 1:17 PM) (03/06/14 12:32 PM) Systolic Blood Pressure 121 mmHg 135 mmHg 135 mmHg [90-140 mmHg] (03/06/14 4:00 PM) (03/06/14 1:17 PM) (03/06/14 12:32 PM) Diastolic Blood Pressure 80 mmHg 89 mmHg 87 mmHg [60-90 mmHg] (03/06/14 4:00 PM) (03/06/14 1:17 PM) (03/06/14 12:32 PM) Respiratory Rate [14-20 16 BRMIN 16 BRMIN 15 BRMIN BRMIN] (03/06/14 4:00 PM) (03/06/14 1:17 PM) (03/06/14 12:32 PM) Peripheral Pulse Rate 69 bpm 58 bpm 75 bpm [60-100 bpm] (03/06/14 4:00 PM) *LOW* (03/06/14 12:32 PM) (03/06/14 1:17 PM) Weight 100 kg (03/06/14 7:38 AM) Body Mass Index 36.69 m2 (03/06/14 7:38 AM) Problem List Condition Effective Dates Status Health Status Informant DM - Diabetes mellitus(Confirmed) Active HTN - Hypertension(Confirmed) Active Stroke(Confirmed) Active Stroke(Confirmed) Resolved Allergies, Adverse Reactions, Alerts Substance Reaction Severity Status NKDA Active Medications aspirin 324 mg, Route: PO, ONCE, Dosing Weight 100, kg, Priority: STAT, Start date: 8:06:00, Stop date: 03/06/14 8:06:00 Start Date: 03/06/14 Stop Date: 03/06/14 Status: Completedaspirin 325 mg tablet 325 mg, Route: PO, Drug form: TAB, ONCE, Dosing Weight 100, kg, Start date: 14:38:00, Stop date: 03/06/14 14:38:00 Start Date: 03/06/14 Stop Date: 03/06/14 Status: DeletedDextrose 50% Syringe 25 gm, 50 mL, Route: IVP, Drug Form: INJ, Dosing Weight 100, kg, PRN, PRN Blood Glucose Results, Start date: 03/06/14 14:39:00, Duration: 30 day, Stop date: 14:38:00 Start Date: 03/06/14 Stop Date: 03/06/14 Status: DiscontinuedDextrose 50% Syringe 12.5 gm, 25 mL, Route: IVP, Drug Form: INJ, Dosing Weight 100, kg, PRN, PRN Blood Glucose Results, Start date: 03/06/14 14:39:00, Duration: 30 day, Stop date: 04/05/14 14:38:00 Start Date: 03/06/14 Stop Date: 03/06/14 Status: Discontinuedenoxaparin 40 mg, 0.4 mL, Route: SUB-Q, Drug form: INJ, [id number], Dosing Weight 100, kg, Start date: 03/06/14 17:00:00, Duration: 30 day, Stop date: 04/04/14 17:00:00 Notes: (Same as: Lovenox) Start Date: 03/06/14 Stop Date: 03/06/14 Status: Discontinuedfluconazole 100 mg oral tablet 100 mg, Daily, 0 Refill(s) Start Date: 03/06/14 Status: Orderedglucagon 1 mg, Route: IM, Drug form: PDR/INJ, PRN, Dosing Weight 100, kg, PRN Blood Glucose Results, Start date: 03/06/14 14:39:00, Duration: 30 day, Stop date: 14:38:00 Start Date: 03/06/14 Stop Date: 03/06/14 Status: Discontinuedinsulin aspart 5 unit, 0.05 mL, Route: SUB-Q, Drug form: SOLN, TID-Before Meals, Dosing Weight 100, kg, PRN Blood Glucose Results, Start date: 03/06/14 14:39:00, Duration: 30 day, Stop date: 04/05/14 14:38:00 Notes: Roll in palms of hands gently; Do not shake vigorously. (Same as: NovoLOG)"single patient use only" Stable for 28 days at room temperature.Expires in days from Date Start Date: 03/06/14 Stop Date: 03/06/14 Status: Discontinuedinsulin aspart 1 unit, 0.01 mL, Route: SUB-Q, Drug form: SOLN, TID-Before Meals, Dosing Weight 100, kg, PRN Blood Glucose Results, Start date: 03/06/14 14:39:00, Duration: 30 day, Stop date: 04/05/14 14:38:00 Notes: Roll in palms of hands gently; Do not shake vigorously. (Same as: NovoLOG)"single patient use only" Stable for 28 days at room temperature.Expires in days from Date Start Date: 03/06/14 Stop Date: 03/06/14 Status: Discontinuedinsulin aspart 4 unit, 0.04 mL, Route: SUB-Q, Drug form: SOLN, TID-Before Meals, Dosing Weight 100, kg, PRN Blood Glucose Results, Start date: 03/06/14 14:39:00, Duration: 30 day, Stop date: 04/05/14 14:38:00 Notes: Roll in palms of hands gently; Do not shake vigorously. (Same as: NovoLOG)"single patient use only" Stable for 28 days at room temperature.Expires in days from Date Start Date: 03/06/14 Stop Date: 03/06/14 Status: Discontinuedinsulin aspart 3 unit, 0.03 mL, Route: SUB-Q, Drug form: SOLN, TID-Before Meals, Dosing Weight 100, kg, PRN Blood Glucose Results, Start date: 03/06/14 14:39:00, Duration: 30 day, Stop date: 04/05/14 14:38:00 Notes: Roll in palms of hands gently; Do not shake vigorously. (Same as: NovoLOG)"single patient use only" Stable for 28 days at room temperature.Expires in days from Date Start Date: 03/06/14 Stop Date: 03/06/14 Status: Discontinuedinsulin aspart 2 unit, 0.02 mL, Route: SUB-Q, Drug form: SOLN, TID-Before Meals, Dosing Weight 100, kg, PRN Blood Glucose Results, Start date: 03/06/14 14:39:00, Duration: 30 day, Stop date: 04/05/14 14:38:00 Notes: Roll in palms of hands gently; Do not shake vigorously. (Same as: NovoLOG)"single patient use only" Stable for 28 days at room temperature.Expires in days from Date Start Date: 03/06/14 Stop Date: 03/06/14 Status: DiscontinuedInsulin regular 10 unit, Route: IV, ONCE, Dosing Weight 100, kg, Priority: STAT, Start date: 8:54:00, Stop date: 03/06/14 8:54:00 Start Date: 03/06/14 Stop Date: 03/06/14 Status: Completedmorphine Sulfate 2 mg, Route: IVP, ONCE, Dosing Weight 100, kg, Start date: 03/06/14 10:45:00, Stop date: 03/06/14 10:45:00 Start Date: 03/06/14 Stop Date: 03/06/14 Status: Completedmorphine Sulfate 2 mg, 1 mL, Route: IVP, Drug form: INJ, Q15Min, Dosing Weight 100, kg, PRN Chest Pain, Start date: 03/06/14 14:38:00, Duration: 2 doses or times, Stop date : Limited # of times Notes: (Same as:MORPhine Sulfate) Start Date: 03/06/14 Stop Date: 03/06/14 Status: Discontinuedmorphine Sulfate 2 mg, Route: IVP, ONCE, Dosing Weight 100, kg, Priority: STAT, Start date: 03/06 8:06:00, Stop date: 03/06/14 8:06:00 Start Date: 03/06/14 Stop Date: 03/06/14 Status: Completednitroglycerin 2% ointment 0.5 inch, Route: TOP, Drug Form: OINT, Dosing Weight 100, kg, TID, Start date: 03/06/14 18:00:00, Duration: 30 day, Stop date: 04/05/14 12:00:00 Notes: 1 gram is approximately 1 inch of nitroglycerin ointment (20 mg NTG per gram) (Same as:Nitro-Bid) Start Date: 03/06/14 Stop Date: 03/06/14 Status: Discontinuednitroglycerin 2% ointment 1 inch, Route: TOP, Dosing Weight 100, kg, ONCE, STAT, Start date: 03/06/14 8:06 :00, Stop date: 03/06/14 8:06:00 Start Date: 03/06/14 Stop Date: 03/06/14 Status: Completednitroglycerin SL Tab 0.4 mg, 1 tab, Route: SL, Drug form: TAB, Q5Min, Dosing Weight 100, kg, PRN Chest Pain, Start date: 03/06/14 14:38:00, Duration: 3 doses or times, Stop date : Limited # of times Notes: (Same as:Nitroquick, Nitrostat)"Do Not Crush" Sublingual tablet Start Date: 03/06/14 Stop Date: 03/06/14 Status: Discontinuedondansetron 4 mg, Route: IVP, ONCE, Dosing Weight 100, kg, Priority: STAT, Start date: 03/06 8:06:00, Stop date: 03/06/14 8:06:00 Start Date: 03/06/14 Stop Date: 03/06/14 Status: CompletedSaline Flush 0.9% 10 ml, Route: IVP, Drug Form: INJ, Dosing Weight 100, kg, Q12H, Start date: 21:00:00, Duration: 30 day, Stop date: 04/05/14 9:00:00 Notes: Same as: BD Posiflush Sterile Start Date: 03/06/14 Stop Date: 03/06/14 Status: CanceledSaline Flush 0.9% 10 ml, Route: IVP, Drug Form: INJ, Dosing Weight 100, kg, PRN, PRN Line Flush, Start date: 03/06/14 14:38:00, Duration: 30 day, Stop date: 04/05/14 14:37:00 Notes: Same as: BD Posiflush Sterile Start Date: 03/06/14 Stop Date: 03/06/14 Status: DiscontinuedSaline Flush 0.9% 10 mL, Route: IVP, Drug Form: INJ, Dosing Weight 100, kg, PRN, PRN Line Flush, Start date: 03/06/14 8:06:00, Duration: 30 day, Stop date: 04/05/14 8:05:00 Notes: (Same as: BD Posiflush) Start Date: 03/06/14 Stop Date: 03/06/14 Status: DiscontinuedSodium Chloride 0.9% (Bolus) IV 500 mL, 500 ml/hr, Infuse Over: 1 Hour, Route: IV, ONCE, Priority: STAT, Dosing Weight 100 kg, Startdate: 03/06/14 8:54:00, Duration: 1 doses or times, Stop date: 03/06/14 8:54:00 Start Date: 03/06/14 Stop Date: 03/06/14 Status: Completed Results ELECTROLYTES Most recent to oldest [Reference Range]: 1 2 Sodium Lvl [135-145 mEq/L] 135 mEq/L (03/06/14 8:19 AM) Potassium Lvl [3.5-5.1 mEq/L] 3.9 mEq/L (03/06/14 8:19 AM) Chloride Lvl [95-109 mEq/L] 99 mEq/L (03/06/14 8:19 AM) CO2 [24-32 mEq/L] 26 mEq/L (03/06/14 8:19 AM) AGAP [10.0-20.0 mEq/L] 13.9 mEq/L (03/06/14 8:19 AM) CHEM PANEL Most recent to oldest [Reference Range]: 1 2 Creatinine Lvl [0.5-1.4 mg/dL] 0.6 mg/dL (03/06/14 8:19 AM) eGFR 127 mL/min/1.73m2 1 *NA* (03/06/14 8:19 AM) BUN [7-22 mg/dL] 7 mg/dL (03/06/14 8:19 AM) B/C Ratio [6-25] 12 (03/06/14 8: AM) Glucose Lvl [70-99 mg/dL] 392 mg/dL 2 *HI* (03/06/14 8:19 AM) Total Protein [6.4-8.4 g/dL] 5.4 g/dL *LOW* (03/06/14 8:19 AM) Albumin Lvl [3.5-5.0 g/dL] 3.5 g/dL (03/06/14 8:19 AM) Globulin [2.0-4.0 g/dL] 1.9 g/dL *LOW* (03/06/14 8:19 AM) A/G Ratio [0.7-1.6] 1.8 *HI* (03/06/14 8:19 AM) Calcium Lvl [8.5-10.5 mg/dL] 7.9 mg/dL *LOW* (03/06/14 8:19 AM) ALT [0-65 unit/L] 33 unit/L (03/06/14 8:19 AM) AST [0-37 unit/L] 29 unit/L (03/06/14 8:19 AM) Alk Phos [39-136 unit/L] 106 unit/L (03/06/14 8:19 AM) Bili Total [0.2-1.3 mg/dL] 0.5 mg/dL (03/06/14 8:19 AM) 1Result Comment: The eGFR is calculated [...] recent to oldest [Reference Range]: 1 2 Total CK [12-191 unit/L] 100 unit/L 138 unit/L (03/06/14 2:57 PM) (03/06/14 8:19 AM) CK MB [0.5-3.6 ng/mL] 0.9 ng/mL 0.8 ng/mL (03/06/14 2:57 PM) (03/06/14 8:19 AM) CK MB Index [0.0-2.5] 0.9 0.6 (03/06/14 2:57 PM) (03/06/14 8:19 AM) Troponin-I [0.00-0.40 ng/mL] <0.02 ng/mL <0.02 ng/mL (03/06/14 2:57 PM) (03/06/14 8:19 AM) BNP [<=100 pg/mL] 5 pg/mL 3 (03/06/14 8:19 AM) 3Interpretive Data: Elevated results are in line with increasing severity of congestive heart failure. Minor elevations between 100 and 300 may be seen with Myocardial Ischemia, Sodium retaining drugs, and compensated/treated heart failure.URINE AND STOOL Most recent to oldest [Reference Range]: 1 2 UA Turbidity [Clear] Clear (03/06/14 9:08 AM) UA Color Ltyellow *NA* (03/06/14 9:08 AM) UA pH [5.0-8.0] 6.0 (03/06/14 9:08 AM) UA Spec Grav [<=1.030] 1.030 (03/06/14 9:08 AM) UA Glucose [Negative mg/dL] 500 mg/dL *ABN* (03/06/14 9:08 AM) UA Blood [Negative] Negative (03/06/14 9:08 AM) UA Ketones [Negative mg/dL] Negative mg/dL *NA* (03/06/14 9:08 AM) UA Protein [Negative mg/dL] Negative mg/dL (03/06/14 9:08 AM) UA Urobilinogen [0.1-1.0 mg/dL] <=1.0 mg/dL *NA* (03/06/14 9:08 AM) UA Bili [Negative] Negative *NA* (03/06/14 9:08 AM) UA Leuk Est [Negative] Negative (03/06/14 9:08 AM) UA Nitrite [Negative] Negative (03/06/14 9:08 AM) UA WBC [0-5 /HPF] <1 /HPF (03/06/14 9:08 AM) UA RBC [0-2 /HPF] <1 /HPF (03/06/14 9:08 AM) UA Sq Epi [Few /LPF] Occasional /LPF *NA* (03/06/14 9:08 AM) HEMATOLOGY Most recent to oldest [Reference Range]: 1 2 WBC [3.7-10.4 K/CMM] 7.5 K/CMM (03/06/14 8:19 AM) RBC [4.20-5.40 M/CMM] 3.95 M/CMM *LOW* (03/06/14 8:19 AM) Hgb [12.0-16.0 g/dL] 12.6 g/dL (03/06/14 8:19 AM) Hct [36.0-48.0 %] 35.3 % *LOW* (03/06/14 8:19 AM) MCV [80.0-98.0 fL] 89.4 fL (03/06/14 8:19 AM) MCH [27.0-31.0 pg] 32.0 pg *HI* (03/06/14 8:19 AM) MCHC [32.0-36.0 g/dL] 35.8 g/dL (03/06/14 8:19 AM) RDW [11.5-14.5 %] 14.5 % (03/06/14 8:19 AM) Platelet [133-450 K/CMM] 246 K/CMM (03/06/14 8:19 AM) MPV [7.4-10.4 fL] 10.4 fL (03/06/14 8:19 AM) Segs [45.0-75.0 %] 46.8 % (03/06/14 8:19 AM) Lymphocytes [20.0-40.0 %] 43.1 % *HI* (03/06/14 8:19 AM) Monocytes [2.0-12.0 %] 6.7 % (03/06/14 8:19 AM) Eosinophils [0.0-4.0 %] 1.7 % (03/06/14 8:19 AM) Basophils [0.0-1.0 %] 1.7 % *HI* (03/06/14 8:19 AM) Segs-Bands # [1.5-8.1 K/CMM] 3.5 K/CMM (03/06/14 8:19 AM) Lymphocytes # [1.0-5.5 K/CMM] 3.2 K/CMM (03/06/14 8:19 AM) Monocytes # [0.0-0.8 K/CMM] 0.5 K/CMM (03/06/14 8:19 AM) Eosinophils # [0.0-0.5 K/CMM] 0.1 K/CMM (03/06/14 8:19 AM) Basophils # [0.0-0.2 K/CMM] 0.1 K/CMM (03/06/14 8:19 AM) PTT [22.9-35.8 seconds] 27.0 seconds 4 (03/06/14 2:57 PM) 4Interpretive Data: Heparin Therapeutic Range: 57 - 92 Seconds Medications Administered During Your Visit No data available for this section Immunizations Vaccine Date Refusal Reason pneumococcal 23-valent vaccine 11/27/13 Procedures Procedure Type Body Site Date of Procedure Related Diagnosis Cervical discectomy1 1anterior cerivical disectomy fusion on November 27, [...] Plan Extracted from: Title: Clinical Document Author: Alvarado Perez MD Date: 03/06/14 Cardiology [...] ago she had a cardiac catheterization in [facility] that was reportedly within normal limits. 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 ALLERGIES: No known drug allergies. HOME MEDICATIONS: [...]
--- OUTSIDE RECORDS SUMMARY | 2018-12-17 18:58 | XMS REPORT | Summary of Care ---
:1970 Author Organization [facility] Address [address] [place], [place] [address]- Encounter [facility] Gilberto(NATALIE) [id number] Date(s): 03/14/15 - 03/14/15 [facility] [address] [place] [address]- [phone] Discharge Diagnosis: Acute bronchitis, unspecified Discharge Diagnosis: Hyperglycemia, unspecified Discharge Disposition: Home Attending Physician: Vicki Landaverde MD Vital Signs Most recent to oldest 1 2 3 [Reference Range]: Height 165.1 cm (03/14/15 11:29 AM) Temperature Oral 100.6 DegF 99.9 DegF 103.2 DegF [96.4-99.1 DegF] *HI* *HI* *HI* (03/14/15 4:02 PM) (03/14/15 3:02 PM) (03/14/15 12:22 PM) Blood Pressure 124/83 mmHg 126/83 mmHg 161/96 mmHg [90-140/60-90 mmHg] (03/14/15 4:02 PM) (03/14/15 3:02 PM) *HI* (03/14/15 11:29 AM) Respiratory Rate [14-20 18 BRMIN 20 BRMIN BRMIN] (03/14/15 3:02 PM) (03/14/15 11:29 AM) Peripheral Pulse Rate 102 bpm 108 bpm 110 bpm [60-100 bpm] *HI* *HI* *HI* (03/14/15 4:02 PM) (03/14/15 3:02 PM) (03/14/15 11:29 AM) Weight 99.545 kg (03/14/15 11:29 AM) Body Mass Index 36.52 m2 (03/14/15 11:29 AM) Problem List Condition Effective Dates Status Health Status Informant Chronic pain syndrome1 02/07/14 Active DM - Diabetes mellitus(Confirmed) Active FH: Diabetes mellitus2 12/17/13 Active HTN - Hypertension(Confirmed) Active Hyperlipidemia(Confirmed) Active Stroke(Confirmed) Active Stroke(Confirmed) Resolved 1Data migrated from [employer] on 12/16/14.2Data migrated from [employer] on 12/16/14. Allergies, Adverse Reactions, Alerts Substance Reaction Severity Status NKDA Active Medications acetaminophen 1,000 mg, Route: PO, ONCE, Dosing Weight 99.545, kg, Start date: 03/14/15 12:25: 00, Stop date: 03/14/15 12:25:00 Start Date: 03/14/15 Stop Date: 03/14/15 Status: Completedalbuterol 90 mcg/inh inhalation aerosol 2 puff, INHALATION, QID, PRN for wheezing, # 75 gm, 0 Refill(s) Start Date: 03/14/15 Status: OrderedDextrose 50% Syringe 25 gm, 50 mL, Route: IVP, Drug Form: INJ, Dosing Weight 99.545, kg, PRN, PRN Blood Glucose Results, Start date: 03/14/15 12:22:00, Duration: 30 day, Stop date: 04/13/15 12::00 Start Date: 03/14/15 Stop Date: 03/14/15 Status: DiscontinuedDextrose 50% Syringe 12.5 gm, 25 mL, Route: IVP, Drug Form: INJ, Dosing Weight 99.545, kg, PRN, PRN Blood Glucose Results, Start date: 03/14/15 12:22:00, Duration: 30 day, Stop date: 04/13/15 12:21:00 Start Date: 03/14/15 Stop Date: 03/14/15 Status: Discontinuedglucagon 1 mg, Route: IM, Drug form: PDR/INJ, PRN, Dosing Weight 99.545, kg, PRN Blood Glucose Results, Startdate: 03/14/15 12:22:00, Duration: 30 day, Stop date: 12:21:00 Start Date: 03/14/15 Stop Date: 03/14/15 Status: DiscontinuedInsulin regular 10 unit, Route: IVP, ONCE, Dosing Weight 99.545, kg, Priority: STAT, Start date : 03/14/15 14:49:00, Stop date: 03/14/15 14:49:00 Start Date: 03/14/15 Stop Date: 03/14/15 Status: CompletedInsulin regular 9.9545 unit, Route: IV, ONCE, Dosing Weight 99.545, kg, Loading Dose, Priority: STAT, Start date: 03/14/15 12:22:00, Stop date: 03/14/15 12:22:00 Start Date: 03/14/15 Stop Date: 03/14/15 Status: CompletedLevaquin 750 mg, Route: IVPB, Drug form: SOLN, ONCE, Dosing Weight 99.545, kg, Start date : 03/14/15 14:14:00,Stop date: 03/14/15 14:14:00 Start Date: 03/14/15 Stop Date: 03/14/15 Status: CompletedLevaquin 750 mg oral tablet 750 mg=1 tab, PO, Daily, X 5 day, # 5 tab, 0 Refill(s) Start Date: 03/14/15 Stop Date: 03/19/15 Status: OrderedMotrin 600 mg, Route: PO, Drug form: TAB, ONCE, Dosing Weight 99.545, kg, Priority: STAT, Start date: 03/14/15 13:55:00, Stop date: 03/14/15 13:55:00 Start Date: 03/14/15 Stop Date: 03/14/15 Status: Completedondansetron 4 mg, Route: IVP, ONCE, Dosing Weight 99.545, kg, Priority: STAT, Start date: 12:22:00, Stop date: 03/14/15 12:22:00 Start Date: 03/14/15 Stop Date: 03/14/15 Status: CompletedSaline Flush 0.9% 10 mL, Route: IVP, Drug Form: INJ, Dosing Weight 99.545, kg, PRN, PRN Line Flush , Start date: 03/14/15 12:22:00, Duration: 30 day, Stop date: 04/13/15 12:21:00 Notes: (Same as: BD Posiflush) Start Date: 03/14/15 Stop Date: 03/14/15 Status: DiscontinuedSodium Chloride 0.9% (Bolus) IV 500 mL, 500 ml/hr, Infuse Over: 1 Hour, Route: IV, ONCE, Priority: STAT, Dosing Weight 99.545 kg, Start date: 03/14/15 14:50:00, Duration: 1 doses or times, Stop date: 03/14/15 14:50:00 Start Date: 03/14/15 Stop Date: 03/14/15 Status: CompletedSodium Chloride 0.9% (Bolus) IV 1,000 mL, 1,000 ml/hr, Infuse Over: 1 hr, Route: IV, ONCE, Priority: STAT, Dosing Weight 99.545 kg, Start date: 03/14/15 12:22:00, Duration: 1 doses or times, Stop date: 03/14/15 12:22:00 Start Date: 03/14/15 Stop Date: 03/14/15 Status: CompletedSodium Chloride 0.9% IV 1,000 mL 1,000 mL, Rate: 125 ml/hr, Infuse over: 8 hr, Route: IV, Dosing Weight 99.545 kg , Total Volume: 1,000, Start date: 03/14/15 12:22:00, Duration: 30 day, Stop date: 04/13/15 12:21:00 Start Date: 03/14/15 Stop Date: 03/14/15 Status: Discontinuedtramadol 50 mg oral tablet 50 mg=1 tab, PO, BID, X 15 day, # 30 tab, 0 Refill(s) Start Date: 03/14/15 Stop Date: 03/29/15 Status: Ordered Results ELECTROLYTES Most recent to oldest [Reference Range]: 1 Sodium Lvl [135-145 mEq/L] 131 mEq/L *LOW* (03/14/15 12:44 PM) Potassium Lvl [3.5-5.1 mEq/L] 3.7 mEq/L (03/14/15 12:44 PM) Chloride Lvl [95-109 mEq/L] 98 mEq/L (03/14/15 12:44 PM) CO2 [24-32 mEq/L] 24 mEq/L (03/14/15 12:44 PM) AGAP [10.0-20.0 mEq/L] 12.7 mEq/L (03/14/15 12:44 PM) CHEM PANEL Most recent to oldest [Reference Range]: 1 Creatinine Lvl [0.50-1.40 mg/dL] 1.07 mg/dL (03/14/15 12:44 PM) eGFR 72 mL/min/1.73m2 1 *NA* (03/14/15:44 PM) BUN [7-22 mg/dL] 7 mg/dL (03/14/15:44 PM) B/C Ratio [6-25] 7 (03/14/15:44 PM) Glucose Lvl [70-99 mg/dL] 396 mg/dL *HI* (03/14/15:44 PM) Total Protein [6.4-8.4 g/dL] 8.4 g/dL (03/14/15:44 PM) Albumin Lvl [3.5-5.0 g/dL] 3.8 g/dL (03/14/15:44 PM) Globulin [2.0-4.0 g/dL] 4.6 g/dL *HI* (03/14/15:44 PM) A/G Ratio [0.7-1.6] 0.8 (03/14/15:44 PM) Calcium Lvl [8.5-10.5 mg/dL] 9.0 mg/dL (03/14/15 12:44 PM) ALT [0-65 unit/L] 41 unit/L (03/14/15:44 PM) AST [0-37 unit/L] 22 unit/L (03/14/15:44 PM) Alk Phos [39-136 unit/L] 99 unit/L (03/14/15 12:44 PM) Bili Total [0.2-1.3 mg/dL] 0.5 mg/dL (03/14/15 12:44 PM) Ketone Quantitative [<=0.27 mmol/L] 1.00 mmol/L *HI* (03/14/15 12:44 PM) 1Result Comment: The eGFR is calculated [...] eGFR should be multiplied by the estimated BMI.ENDOCRINOLOGY Most recent to oldest [Reference Range]: 1 S Preg [Negative] Negative *NA* (03/14/15 12:44 PM) URINE AND STOOL Most recent to oldest [Reference Range]: 1 UA Turbidity [Clear] Clear (03/14/15 12:44 PM) UA Color Ltyellow *NA* (03/14/15 12:44 PM) UA pH [5.0-8.0] 7.0 (03/14/15 12:44 PM) UA Spec Grav [<=1.030] 1.033 *HI* (03/14/15 12:44 PM) UA Glucose [Negative mg/dL] 500 mg/dL *ABN* (03/14/15 12:44 PM) UA Blood [Negative] Negative (03/14/15 12:44 PM) UA Ketones [Negative mg/dL] 20 mg/dL *ABN* (03/14/15 12:44 PM) UA Protein [Negative mg/dL] 30 mg/dL *ABN* (03/14/15 12:44 PM) UA Urobilinogen [0.1-1.0 mg/dL] <=1.0 mg/dL *NA* (03/14/15 12:44 PM) UA Bili [Negative] Negative *NA* (03/14/15 12:44 PM) UA Leuk Est [Negative] Negative (03/14/15 12:44 PM) UA Nitrite [Negative] Negative (03/14/15 12:44 PM) UA WBC [0-5 /HPF] <1 /HPF (03/14/15 12:44 PM) UA RBC [0-2 /HPF] 4 /HPF *HI* (03/14/15 12:44 PM) UA Sq Epi [Few /LPF] Occasional /LPF *NA* (03/14/15 12:44 PM) HEMATOLOGY Most recent to oldest [Reference Range]: 1 WBC [3.7-10.4 K/CMM] 11.9 K/CMM *HI* (03/14/15 12:44 PM) RBC [4.20-5.40 M/CMM] 4.65 M/CMM (03/14/15 12:44 PM) Hgb [12.0-16.0 g/dL] 13.7 g/dL (03/14/15 12:44 PM) Hct [36.0-48.0 %] 42.8 % (03/14/15 12:44 PM) MCV [80.0-98.0 fL] 92.2 fL (03/14/15 12:44 PM) MCH [27.0-31.0 pg] 29.5 pg (03/14/15 12:44 PM) MCHC [32.0-36.0 g/dL] 32.0 g/dL (03/14/15 12:44 PM) RDW [11.5-14.5 %] 13.3 % (03/14/15 12:44 PM) Platelet [133-450 K/CMM] 216 K/CMM (03/14/15 12:44 PM) MPV [7.4-10.4 fL] 11.0 fL *HI* (03/14/15 12:44 PM) Segs [45.0-75.0 %] 86.4 % *HI* (03/14/15 12:44 PM) Lymphocytes [20.0-40.0 %] 6.2 % *LOW* (03/14/15 12:44 PM) Monocytes [2.0-12.0 %] 6.1 % (03/14/15 12:44 PM) Eosinophils [0.0-4.0 %] 0.5 % (03/14/15 12:44 PM) Basophils [0.0-1.0 %] 0.8 % (03/14/15 12:44 PM) Segs-Bands # [1.5-8.1 K/CMM] 10.3 K/CMM *HI* (03/14/15 12:44 PM) Lymphocytes # [1.0-5.5 K/CMM] 0.7 K/CMM *LOW* (03/14/15 12:44 PM) Monocytes # [0.0-0.8 K/CMM] 0.7 K/CMM (03/14/15 12:44 PM) Eosinophils # [0.0-0.5 K/CMM] 0.1 K/CMM (03/14/15 12:44 PM) Basophils # [0.0-0.2 K/CMM] 0.1 K/CMM (03/14/15 12:44 PM) Immunizations Vaccine Date Refusal Reason pneumococcal 23-valent [...] Smoking Cessation Counseling No Assessment and Plan No data available for this section
--- OUTSIDE RECORDS SUMMARY | 2018-12-17 18:59 | XMS REPORT | Summary of Care ---
:1970 Author Organization [facility] Address [address] [place], [place] [address]- Encounter HQ Gilberto(NATALIE) [phone] Date(s): 05/13/15 - 05/15/15 [facility] [address] [place] [address]- [phone] Discharge Disposition: Home Attending Physician: Davin Farmer DO Admitting Physician: Davin Farmer DO Vital Signs Most recent to oldest 1 2 3 [Reference Range]: Height 165.1 cm 165.1 cm (05/13/15 9:24 PM) (05/13/15 1:32 PM) Current Weight 95.199 kg (05/13/15 9:24 PM) Temperature Oral [96.4-99.1 98.2 DegF 97.8 DegF 97.8 DegF DegF] (05/15/15 8:00 AM) (05/15/15 4:19 AM) (05/14/15 11:55 PM) Blood Pressure [90-140/60-90 118/77 mmHg 117/76 mmHg 99/63 mmHg mmHg] (05/15/15 8:00 AM) (05/15/15 4:19 AM) (05/14/15 11:55 PM) Respiratory Rate [14-20 BRMIN] 18 BRMIN 18 BRMIN 18 BRMIN (05/15/15 8:00 AM) (05/15/15 4:19 AM) (05/14/15 11:55 PM) Peripheral Pulse Rate [60-100 66 bpm 55 bpm 69 bpm bpm] (05/15/15 8:00 AM) *LOW* (05/14/15 11:55 PM) (05/15/15 4:19 AM) Weight 97.727 kg (05/13/15 1:32 PM) Body Mass Index 35.85 m2 (05/13/15 1:32 PM) Problem List Condition Effective Dates Status Health Status Informant Chronic pain syndrome1 02/07/14 Active DM - Diabetes mellitus(Confirmed) Active FH: Diabetes mellitus2 12/17/13 Active HTN - Hypertension(Confirmed) Active Hyperlipidemia(Confirmed) Active Stroke(Confirmed) Active Stroke(Confirmed) Resolved 1Data migrated from [employer] on 12/16/14.2Data migrated from [employer] on 12/16/14. Allergies, Adverse Reactions, Alerts Substance Reaction Severity Status NKDA Active Medications aspirin 81 mg tablet, enteric coated 81 mg, 1 tab, Route: PO, Drug form: ECTAB, Daily, Dosing Weight 97.727, kg, Start date: 05/13/15 21:00:00, Duration: 30 day, Stop date: 06/12/15 9:00:00 Notes: Do not crush or chew.(Same As: Ecotrin) Start Date: 05/13/15 Stop Date: 05/14/15 Status: Discontinuedaspirin 81 mg tablet, enteric coated 81 mg, 1 tab, Route: PO, Drug form: CHEWTAB, Daily, Dosing Weight 97.727, kg, Start date: 05/15/15 9:00:00, Duration: 30 day, Stop date: 06/13/15 9:00:00 Notes: Take with food. Start Date: 05/15/15 Stop Date: 05/15/15 Status: Discontinuedaspirin 81 mg tablet, enteric coated 81 mg, Route: PO, Drug form: ECTAB, Daily, Dosing Weight 97.727, kg, Start date : 05/14/15 9:00:00, Duration: 30 day, Stop date: 06/12/15 9:00:00 Start Date: 05/14/15 Stop Date: 05/13/15 Status: Deletedclopidogrel 75 mg, 1 tab, Route: PO, Drug form: TAB, Daily, Dosing Weight 97.727, kg, Start date: 05/15/15 9:00:00, Duration: 30 day, Stop date: 06/13/15 9:00:00 Notes: (Same As: Plavix) Start Date: 05/15/15 Stop Date: 05/15/15 Status: Discontinuedclopidogrel 75 mg oral tablet 75 mg=1 tab, PO, Daily, # 30 tab, 3 Refill(s) Start Date: 05/14/15 Status: OrderedDextrose 50% Syringe 12.5 gm, 25 mL, Route: IVP, Drug Form: INJ, Dosing Weight 97.727, kg, PRN, PRN Blood Glucose Results, Start date: 05/13/15 18:14:00, Duration: 30 day, Stop date: 06/12/15 18:13:00 Start Date: 05/13/15 Stop Date: 05/13/15 Status: DiscontinuedDextrose 50% Syringe 25 gm, 50 mL, Route: IVP, Drug Form: INJ, Dosing Weight 97.727, kg, PRN, PRN Blood Glucose Results, Start date: 05/13/15 18:14:00, Duration: 30 day, Stop date: 06/12/15 18:13:00 Start Date: 05/13/15 Stop Date: 05/13/15 Status: DiscontinuedDextrose 50% Syringe 25 gm, 50 mL, Route: IVP, Drug Form: INJ, Dosing Weight 97.727, kg, PRN, PRN Blood Glucose Results, Start date: 05/13/15 21:23:00, Duration: 30 day, Stop date: 06/12/15 21:22:00 Start Date: 05/13/15 Stop Date: 05/15/15 Status: DiscontinuedDextrose 50% Syringe 12.5 gm, 25 mL, Route: IVP, Drug Form: INJ, Dosing Weight 97.727, kg, PRN, PRN Blood Glucose Results, Start date: 05/13/15 21:23:00, Duration: 30 day, Stop date: 06/12/15 21:22:00 Start Date: 05/13/15 Stop Date: 05/15/15 Status: Discontinuedglucagon 1 mg, Route: IM, Drug form: PDR/INJ, PRN, Dosing Weight 97.727, kg, PRN Blood Glucose Results, Startdate: 05/13/15 18:14:00, Duration: 30 day, Stop date: 18:13:00 Start Date: 05/13/15 Stop Date: 05/13/15 Status: Discontinuedglucagon 1 mg, Route: IM, Drug form: PDR/INJ, PRN, Dosing Weight 97.727, kg, PRN Blood Glucose Results, Startdate: 05/13/15 21:23:00, Duration: 30 day, Stop date: 21:22:00 Start Date: 05/13/15 Stop Date: 05/15/15 Status: Discontinuedhydrochlorothiazide 25 mg oral tablet 25 mg, 1 tab, Route: PO, Drug form: TAB, Daily, Start date: 05/14/15 9:00:00, Duration: 30 day, Stopdate: 06/12/15 9:00:00 Notes: (Same as: Hydrodiuril) With food. Start Date: 05/14/15 Stop Date: 05/15/15 Status: Discontinuedhydrochlorothiazide-lisinopril 25 mg-20 mg oral tablet 1 tab, Route: PO, Drug Form: TAB, Dosing Weight 97.727, kg, Daily, Start date: 05/14/15 9:00:00, Duration: 30 day, Stop date: 06/12/15 9:00:00 Start Date: 05/14/15 Stop Date: 05/13/15 Status: DeletedImdur 60 mg oral tablet, extended release 120 mg=2 tab, PO, QAM, # 60 tab, 3 Refill(s) Start Date: 05/14/15 Status: Orderedinsulin aspart 2 unit, 0.02 mL, Route: SUB-Q, Drug form: SOLN, Bedtime, Dosing Weight 97.727, kg, PRN Blood GlucoseResults, Start date: 05/13/15 18:14:00, Duration: 30 day, Stop date: 06/12/15 18:13:00 Notes: Roll in palms of hands gently; Do not shake vigorously. (Same as: NovoLOG)"single patient use only"WASTE: F/P - Black; E - Municipal Trash Bin Stable for 28 days at room temperature.Expires in days from Date Start Date: 05/13/15 Stop Date: 05/15/15 Status: Discontinuedinsulin aspart 1 unit, 0.01 mL, Route: SUB-Q, Drug form: SOLN, Bedtime, Dosing Weight 97.727, kg, PRN Blood GlucoseResults, Start date: 05/13/15 18:14:00, Duration: 30 day, Stop date: 06/12/15 18:13:00 Notes: Roll in palms of hands gently; Do not shake vigorously. (Same as: NovoLOG)"single patient use only"WASTE: F/P - Black; E - Municipal Trash Bin Stable for 28 days at room temperature.Expires in days from Date Start Date: 05/13/15 Stop Date: 05/15/15 Status: Discontinuedinsulin aspart 4 unit, 0.04 mL, Route: SUB-Q, Drug form: SOLN, Bedtime, Dosing Weight 97.727, kg, PRN Blood GlucoseResults, Start date: 05/13/15 18:14:00, Duration: 30 day, Stop date: 06/12/15 18:13:00 Notes: Roll in palms of hands gently; Do not shake vigorously. (Same as: NovoLOG)"single patient use only"WASTE: F/P - Black; E - Municipal Trash Bin Stable for 28 days at room temperature.Expires in days from Date Start Date: 05/13/15 Stop Date: 05/15/15 Status: Discontinuedinsulin aspart 3 unit, 0.03 mL, Route: SUB-Q, Drug form: SOLN, Bedtime, Dosing Weight 97.727, kg, PRN Blood GlucoseResults, Start date: 05/13/15 18:14:00, Duration: 30 day, Stop date: 06/12/15 18:13:00 Notes: Roll in palms of hands gently; Do not shake vigorously. (Same as: NovoLOG)"single patient use only"WASTE: F/P - Black; E - Municipal Trash Bin Stable for 28 days at room temperature.Expires in days from Date Start Date: 05/13/15 Stop Date: 05/15/15 Status: Discontinuedinsulin aspart 9 unit, 0.09 mL, Route: SUB-Q, Drug form: SOLN, TID-Before Meals, Dosing Weight 97.727, kg, PRN Blood Glucose Results, Start date: 05/13/15 18:14:00, Duration: 30 day, Stop date: 06/12/15 18:13:00 Notes: Roll in palms of hands gently; Do not shake vigorously. (Same as: NovoLOG)"single patient use only"WASTE: F/P - Black; E - Municipal Trash Bin Stable for 28 days at room temperature.Expires in days from Date Start Date: 05/13/15 Stop Date: 05/13/15 Status: Discontinuedinsulin aspart 6 unit, 0.06 mL, Route: SUB-Q, Drug form: SOLN, TID-Before Meals, Dosing Weight 97.727, kg, PRN Blood Glucose Results, Start date: 05/13/15 18:14:00, Duration: 30 day, Stop date: 06/12/15 18:13:00 Notes: Roll in palms of hands gently; Do not shake vigorously. (Same as: NovoLOG)"single patient use only"WASTE: F/P - Black; E - Municipal Trash Bin Stable for 28 days at room temperature.Expires in days from Date Start Date: 05/13/15 Stop Date: 05/13/15 Status: Discontinuedinsulin aspart 15 unit, 0.15 mL, Route: SUB-Q, Drug form: SOLN, TID-Before Meals, Dosing Weight 97.727, kg, PRN Blood Glucose Results, Start date: 05/13/15 18:14:00, Duration: 30 day, Stop date: 06/12/15 18:13:00 Notes: Roll in palms of hands gently; Do not shake vigorously. (Same as: NovoLOG)"single patient use only"WASTE: F/P - Black; E - Municipal Trash Bin Stable for 28 days at room temperature.Expires in days from Date Start Date: 05/13/15 Stop Date: 05/13/15 Status: Discontinuedinsulin aspart 12 unit, 0.12 mL, Route: SUB-Q, Drug form: SOLN, TID-Before Meals, Dosing Weight 97.727, kg, PRN Blood Glucose Results, Start date: 05/13/15 18:14:00, Duration: 30 day, Stop date: 06/12/15 18:13:00 Notes: Roll in palms of hands gently; Do not shake vigorously. (Same as: NovoLOG)"single patient use only"WASTE: F/P - Black; E - Municipal Trash Bin Stable for 28 days at room temperature.Expires in days from Date Start Date: 05/13/15 Stop Date: 05/13/15 Status: Discontinuedinsulin aspart 3 unit, 0.03 mL, Route: SUB-Q, Drug form: SOLN, TID-Before Meals, Dosing Weight 97.727, kg, PRN Blood Glucose Results, Start date: 05/13/15 18:14:00, Duration: 30 day, Stop date: 06/12/15 18:13:00 Notes: Roll in palms of hands gently; Do not shake vigorously. (Same as: farmflo)"single patient use only"WASTE: F/P - Black; E - Municipal Trash Bin Stable for 28 days at room temperature.Expires in days from Date Start Date: 05/13/15 Stop Date: 05/13/15 Status: Discontinuedinsulin aspart 8 unit, 0.08 mL, Route: SUB-Q, Drug form: SOLN, TID-Before Meals, Dosing Weight 97.727, kg, PRN Blood Glucose Results, Start date: 05/13/15 21:23:00, Duration: 30 day, Stop date: 06/12/15 21:22:00 Notes: Roll in palms of hands gently; Do not shake vigorously. (Same as: NovoLOG)"single patient use only"WASTE: F/P - Black; E - Municipal Trash Bin Stable for 28 days at room temperature.Expires in days from Date Start Date: 05/13/15 Stop Date: 05/15/15 Status: Discontinuedinsulin aspart 10 unit, 0.1 mL, Route: SUB-Q, Drug form: SOLN, TID-Before Meals, Dosing Weight 97.727, kg, PRN Blood Glucose Results, Start date: 05/13/15 21:23:00, Duration: 30 day, Stop date: 06/12/15 21:22:00 Notes: Roll in palms of hands gently; Do not shake vigorously. (Same as: NovoLOG)"single patient use only"WASTE: F/P - Black; E - Municipal Trash Bin Stable for 28 days at room temperature.Expires in days from Date Start Date: 05/13/15 Stop Date: 05/15/15 Status: Discontinuedinsulin aspart 2 unit, 0.02 mL, Route: SUB-Q, Drug form: SOLN, TID-Before Meals, Dosing Weight 97.727, kg, PRN Blood Glucose Results, Start date: 05/13/15 21:23:00, Duration: 30 day, Stop date: 06/12/15 21:22:00 Notes: Roll in palms of hands gently; Do not shake vigorously. (Same as: Distil NetworksLOG)"single patient use only"WASTE: F/P - Black; E - Municipal Trash Bin Stable for 28 days at room temperature.Expires in days from Date Start Date: 05/13/15 Stop Date: 05/15/15 Status: Discontinuedinsulin aspart 4 unit, 0.04 mL, Route: SUB-Q, Drug form: SOLN, TID-Before Meals, Dosing Weight 97.727, kg, PRN Blood Glucose Results, Start date: 05/13/15 21:23:00, Duration: 30 day, Stop date: 06/12/15 21:22:00 Notes: Roll in palms of hands gently; Do not shake vigorously. (Same as: NovoLOG)"single patient use only"WASTE: F/P - Black; E - Municipal Trash Bin Stable for 28 days at room temperature.Expires in days from Date Start Date: 05/13/15 Stop Date: 05/15/15 Status: Discontinuedinsulin aspart 6 unit, 0.06 mL, Route: SUB-Q, Drug form: SOLN, TID-Before Meals, Dosing Weight 97.727, kg, PRN Blood Glucose Results, Start date: 05/13/15 21:23:00, Duration: 30 day, Stop date: 06/12/15 21:22:00 Notes: Roll in palms of hands gently; Do not shake vigorously. (Same as: NovoLOG)"single patient use only"WASTE: F/P - Black; E - Municipal Trash Bin Stable for 28 days at room temperature.Expires in days from Date Start Date: 05/13/15 Stop Date: 05/15/15 Status: DiscontinuedInsulin Aspart 100 unit/ml - (High CD) See Special Instructions, SUB-Q, TID-Before Meals, Check blood sugar before breakfast, lunch, and dinner, and inject correction doses: Inject 3 unit if Sugar 150-199, Inject 6 units if Sugar 200-249, Inject 9 units if Sugar 250-299 , Inject 12 units if... Start Date: 05/15/15 Status: Orderedinsulin aspart-insulin aspart protamine 30 units-70 units/mL subcutaneous suspension 50 units, SUB-Q, BID, # 10 mL, 0 Refill(s) Start Date: 05/15/15 Status: Orderedinsulin detemir 30 unit, 0.3 mL, Route: SUB-Q, Drug form: INJ, Bedtime, Dosing Weight 97.727, kg , Start date: 05/13/15 21:00:00, Duration: 30 day, Stop date: 06/11/15 21:00:00 Notes: Same as LevemirDo not hold insulin without contacting prescriberWASTE: F/ P - Black; E - Municipal Trash Bin "single patient use only" Start Date: 05/13/15 Stop Date: 05/14/15 Status: DiscontinuedInsulin regular 10 unit, Route: IVP, ONCE, Dosing Weight 97.727, kg, Priority: STAT, Start date : 05/13/15 15:54:00, Stop date: 05/13/15 15:54:00 Start Date: 05/13/15 Stop Date: 05/13/15 Status: Completedisosorbide mononitrate 30 mg, 1 tab, Route: PO, Drug form: ERTAB, Daily, Dosing Weight 97.727, kg, Start date: 05/14/15 9:00:00, Duration: 30 day, Stop date: 06/12/15 9:00:00 Notes: (Same as:Imdur)"Do Not Crush" Take on empty stomach/ full glass of water. Do not crush Start Date: 05/14/15 Stop Date: 05/15/15 Status: DiscontinuedLipitor 80 mg, 2 tab, Route: PO, Drug form: TAB, Bedtime, Dosing Weight 97.727, kg, Start date: 05/13/15 21:00:00, Duration: 30 day, Stop date: 06/11/15 21:00:00 Notes: (Same as: Lipitor) Start Date: 05/13/15 Stop Date: 05/15/15 Status: Discontinuedlisinopril 20 mg, Route: PO, Drug form: TAB, Daily, Dosing Weight 97.727, kg, Start date: 05/14/15 9:00:00, Duration: 30 day, Stop date: 06/12/15 9:00:00 Start Date: 05/14/15 Stop Date: 05/13/15 Status: Deletedlisinopril 20 mg oral tablet 40 mg=2 tab, PO, Daily, # 60 tab, 3 Refill(s) Start Date: 05/14/15 Status: Orderednitroglycerin 0.4 mg sublingual tablet 0.4 mg, 1 tab, Route: SL, Drug form: TAB, Q5Min, Dosing Weight 97.727, kg, PRN Chest Pain, Start date: 05/13/15 18:12:00, Duration: 30 day, Stop date: 18:11:00 Notes: (Same as:Nitroqucameron Nitrostat)"Do Not Crush" Sublingual tablet Start Date: 05/13/15 Stop Date: 05/14/15 Status: Discontinuednitroglycerin SL Tab 0.4 mg, 1 tab, Route: SL, Drug form: TAB, Q5Min, Dosing Weight 97.727, kg, PRN Chest Pain, Start date: 05/14/15 9:14:00, Duration: 3 doses or times, Stop date : Limited # of times Notes: (Same as:Nitroquick, Nitrostat)"Do Not Crush" Sublingual tablet Start Date: 05/14/15 Stop Date: 05/15/15 Status: Discontinuednitroglycerin SL Tab 0.4 mg, Route: SL, Drug form: TAB, Q5Min, Dosing Weight 97.727, kg, PRN Chest Pain, Start date: 05/13/15 21:23:00, Duration: 3 doses or times, Stop date: Limited # of times Start Date: 05/13/15 Stop Date: 05/13/15 Status: DeletedNovoLIN 70/30 Route: SUB-Q, BID, Dosing Weight 97.727, kg, Start date: 05/14/15 9:00:00, Duration: 30 day, Stop date: 06/12/15 17:00:00 Start Date: 05/14/15 Stop Date: 05/13/15 Status: CanceledNovoLIN 70/30 Route: SUB-Q, BID, Dosing Weight 97.727, kg, Start date: 05/14/15 9:00:00, Duration: 30 day, Stop date: 06/12/15 17:00:00 Start Date: 05/14/15 Stop Date: 05/13/15 Status: DeletedNovoLOG Mix 70/30 FlexPen 40 unit, 0.4 mL, Route: SUB-Q, Drug form: INJ, BID, Start date: 05/14/15 9:00:00 , Duration: 30 day, Stop date: 06/12/15 17:00:00 Notes: Roll in palms of hands gently; Do not shake vigorously. (Same as: NovoLOG Mix)"single patient use only"WASTE: F/P - Black; E - Municipal Trash Bin Stable for 14 days at room temperatureExpiresin days from ___Date Start Date: 05/14/15 Stop Date: 05/14/15 Status: DiscontinuedNovoLOG Mix 70/30 FlexPen 50 unit, 0.5 mL, Route: SUB-Q, Drug form: SUSP, BID, Start date: 05/14/15 17:00: 00, Duration: 30 day, Stop date: 06/13/15 9:00:00 Notes: (Same as: Novolog-Mix 7030)WASTE: F/P - Black; E - Municipal Trash Bin Start Date: 05/14/15 Stop Date: 05/15/15 Status: DiscontinuedNovoLOG PenFill 30 unit, Route: SUB-Q, Drug form: SOLN, TID-Before Meals, Dosing Weight 97.727, kg, Start date: 05/14/15 7:30:00, Duration: 30 day, Stop date: 06/12/15 16:30:00 Start Date: 05/14/15 Stop Date: 05/13/15 Status: CanceledNS 1,000 mL 1,000 mL, Rate: 100 ml/hr, Infuse over: 10 hr, Route: IV, Dosing Weight 97.727 kg, Total Volume: 1,000, Start date: 05/13/15 18:22:00, Duration: 30 day, Stop date: 06/12/15 18:21:00 Start Date: 05/13/15 Stop Date: 05/15/15 Status: DiscontinuedPrinivil 20 mg, 1 tab, Route: PO, Drug form: TAB, Daily, Start date: 05/14/15 9:00:00, Duration: 30 day, Stopdate: 06/12/15 9:00:00 Notes: (Same as: Prinivil, Zestril) Start Date: 05/14/15 Stop Date: 05/15/15 Status: DiscontinuedPROzac 40 mg, 2 cap, Route: PO, Drug form: CAP, Daily, Dosing Weight 97.727, kg, Start date: 05/14/15 9:00:00, Duration: 30 day, Stop date: 06/12/15 9:00:00 Notes: (Same as: Prozac, Sarafem) Start Date: 05/14/15 Stop Date: 05/15/15 Status: DiscontinuedSaline Flush 0.9% 10 mL, Route: IVP, Drug Form: INJ, Dosing Weight 97.727, kg, PRN, PRN Line Flush , Start date: 05/13/15 13:34:00, Duration: 30 day, Stop date: 06/12/15 13:33:00 Notes: (Same as: BD Posiflush) Start Date: 05/13/15 Stop Date: 05/13/15 Status: DiscontinuedSaline Flush 0.9% 10 ml, Route: IVP, Drug Form: INJ, Dosing Weight 97.727, kg, PRN, PRN Line Flush , Start date: 05/13/15 21:23:00, Duration: 30 day, Stop date: 06/12/15 21:22:00 Notes: (Same as: BD Posiflush) Start Date: 05/13/15 Stop Date: 05/15/15 Status: DiscontinuedSaline Flush 0.9% 10 ml, Route: IVP, Drug Form: INJ, Dosing Weight 97.727, kg, Q12H, Start date: 05/14/15 9:00:00, Duration: 30 day, Stop date: 06/12/15 21:00:00 Notes: (Same as: BD Posiflush) Start Date: 05/14/15 Stop Date: 05/15/15 Status: DiscontinuedToprol-XL 25 mg oral tablet, extended release 25 mg, 1 tab, Route: PO, Drug form: ERTAB, BID, Start date: 05/13/15 21:00:00, Duration: 30 day, Stop date: 06/12/15 9:00:00 Notes: (Same as: Toprol XL) Do Not Crush Start Date: 05/13/15 Stop Date: 05/15/15 Status: DiscontinuedTylenol 650 mg, 20.3 mL, Route: PO, Drug form: LIQ, Q6H, Dosing Weight 97.727, kg, PRN Pain 1-3/Temp > 99.5 F, Start date: 05/15/15 9:46:00, Duration: 30 day, Stop date: 06/14/15 9:45:00 Notes: Max aavtmazdlelup=6666ji/day (4 gm/day). (Same as: Tylenol) Start Date: 05/15/15 Stop Date: 05/15/15 Status: Discontinued Results ELECTROLYTES Most recent to oldest [Reference Range]: 1 2 3 Sodium Lvl [135-145 mEq/L] 135 mEq/L 130 mEq/L (05/15/15 3:56 AM) *LOW* (05/13/15 3:01 PM) Potassium Lvl [3.5-5.1 mEq/L] 3.8 mEq/L 3.8 mEq/L (05/15/15 3:56 AM) (05/13/15 3:01 PM) Chloride Lvl [95-109 mEq/L] 100 mEq/L 93 mEq/L (05/15/15 3:56 AM) *LOW* (05/13/15 3:01 PM) CO2 [24-32 mEq/L] 25 mEq/L 26 mEq/L (05/15/15 3:56 AM) (05/13/15 3:01 PM) AGAP [10.0-20.0 mEq/L] 13.8 mEq/L 14.8 mEq/L (05/15/15 3:56 AM) (05/13/15 3:01 PM) CHEM PANEL Most recent to oldest [Reference Range]: 1 2 3 Creatinine Lvl [0.50-1.40 mg/dL] 0.77 mg/dL 1.02 mg/dL (05/15/15 3:56 AM) (05/13/15 3:01 PM) eGFR 108 mL/min/1.73m2 1 76 mL/min/1.73m2 2 *NA* *NA* (05/15/15 3:56 AM) (05/13/15 3:01 PM) BUN [7-22 mg/dL] 15.6 mg/dL 9 mg/dL *NA* (05/13/15 3:01 PM) (05/15/15 3:56 AM) B/C Ratio [6-25] 9 (05/13/15 3:01 PM) Glucose Lvl [70-99 mg/dL] 350 mg/dL 468 mg/dL 3 *HI* *CRIT* (05/15/15 3:56 AM) (05/13/15 3:01 PM) Total Protein [6.4-8.4 g/dL] 8.2 g/dL (05/13/15 3:01 PM) Albumin Lvl [3.5-5.0 g/dL] 4.0 g/dL (05/13/15 3:01 PM) Globulin [2.0-4.0 g/dL] 4.2 g/dL *HI* (05/13/15 3:01 PM) A/G Ratio [0.7-1.6] 1.0 (05/13/15 3:01 PM) Calcium Lvl [8.5-10.5 mg/dL] 8.5 mg/dL 9.7 mg/dL (05/15/15 3:56 AM) (05/13/15 3:01 PM) ALT [0-65 unit/L] 37 unit/L (05/13/15 3:01 PM) AST [0-37 unit/L] 15 unit/L (05/13/15 3:01 PM) Alk Phos [39-136 unit/L] 90 unit/L (05/13/15 3:01 PM) Bili Total [0.2-1.3 mg/dL] 0.5 mg/dL (05/13/15 3:01 PM) 1Result Comment: The eGFR is calculated [...] be multiplied by the estimated BMI.3Result Comment: Critical Result(s) called to blanche at _ by05/13/2015 15:33 by gigi. Read back OK.CARDIAC ENZYMES Most recent to oldest 1 2 3 [Reference Range]: Total CK [12-191 unit/L] 73 unit/L 85 unit/L 104 unit/L (05/14/15 3:48 AM) (05/13/15 9:51 PM) (05/13/15 3:01 PM) CK MB [0.5-3.6 ng/mL] <0.5 ng/mL <0.5 ng/mL (05/13/15 9:51 PM) (05/13/15 3:01 PM) CK MB Index [0.0-2.5] <0.6 <0.5 (05/13/15 9:51 PM) (05/13/15 3:01 PM) Troponin-I [0.00-0.40 ng/mL] <0.02 ng/mL <0.02 ng/mL <0.02 ng/mL (05/14/15 3:48 AM) (05/13/15 9:51 PM) (05/13/15 3:01 PM) URINE AND STOOL Most recent to oldest [Reference Range]: 1 2 3 UA Turbidity [Clear] Clear (05/13/15 3:01 PM) UA Color Ltyellow *NA* (05/13/15 3:01 PM) UA pH [5.0-8.0] 7.0 (05/13/15 3:01 PM) UA Spec Grav [<=1.030] 1.028 (05/13/15 3:01 PM) UA Glucose [Negative mg/dL] 500 mg/dL *ABN* (05/13/15 3:01 PM) UA Blood [Negative] Negative (05/13/15 3:01 PM) UA Ketones [Negative mg/dL] 20 mg/dL *ABN* (05/13/15 3:01 PM) UA Protein [Negative mg/dL] Negative mg/dL (05/13/15 3:01 PM) UA Urobilinogen [0.1-1.0 mg/dL] <=1.0 mg/dL *NA* (05/13/15 3:01 PM) UA Bili [Negative] Negative *NA* (05/13/15 3:01 PM) UA Leuk Est [Negative] Negative (05/13/15 3:01 PM) UA Nitrite [Negative] Negative (05/13/15 3:01 PM) UA WBC [0-5 /HPF] <1 /HPF (05/13/15 3:01 PM) UA RBC [0-2 /HPF] 2 /HPF (05/13/15 3:01 PM) UA Sq Epi [Few /LPF] Occasional /LPF *NA* (05/13/15 3:01 PM) HEMATOLOGY Most recent to oldest [Reference Range]: 1 2 3 WBC [3.7-10.4 K/CMM] 5.2 K/CMM 9.2 K/CMM (05/15/15 3:56 AM) (05/13/15 3:01 PM) RBC [4.20-5.40 M/CMM] 3.78 M/CMM 4.29 M/CMM *LOW* (05/13/15 3:01 PM) (05/15/15 3:56 AM) Hgb [12.0-16.0 g/dL] 11.9 g/dL 12.8 g/dL *LOW* (05/13/15 3:01 PM) (05/15/15 3:56 AM) Hct [36.0-48.0 %] 35.0 % 39.2 % *LOW* (05/13/15 3:01 PM) (05/15/15 3:56 AM) MCV [80.0-98.0 fL] 92.6 fL 91.5 fL (05/15/15 3:56 AM) (05/13/15 3:01 PM) MCH [27.0-31.0 pg] 31.4 pg 29.8 pg *HI* (05/13/15 3:01 PM) (05/15/15 3:56 AM) MCHC [32.0-36.0 g/dL] 33.9 g/dL 32.5 g/dL (05/15/15 3:56 AM) (05/13/15 3:01 PM) RDW [11.5-14.5 %] 13.5 % 13.2 % (05/15/15 3:56 AM) (05/13/15 3:01 PM) Platelet [133-450 K/CMM] 198 K/CMM 217 K/CMM (05/15/15 3:56 AM) (05/13/15 3:01 PM) MPV [7.4-10.4 fL] 10.5 fL 10.9 fL *HI* *HI* (05/15/15 3:56 AM) (05/13/15 3:01 PM) Segs [45.0-75.0 %] 46.0 % 65.9 % (05/15/15 3:56 AM) (05/13/15 3:01 PM) Lymphocytes [20.0-40.0 %] 36.8 % 27.6 % (05/15/15 3:56 AM) (05/13/15 3:01 PM) Monocytes [2.0-12.0 %] 12.6 % 4.8 % *HI* (05/13/15 3:01 PM) (05/15/15 3:56 AM) Eosinophils [0.0-4.0 %] 3.2 % 1.0 % (05/15/15 3:56 AM) (05/13/15 3:01 PM) Basophils [0.0-1.0 %] 1.4 % 0.7 % *HI* (05/13/15 3:01 PM) (05/15/15 3:56 AM) Segs-Bands # [1.5-8.1 K/CMM] 2.4 K/CMM 6.0 K/CMM (05/15/15 3:56 AM) (05/13/15 3:01 PM) Lymphocytes # [1.0-5.5 K/CMM] 1.9 K/CMM 2.5 K/CMM (05/15/15 3:56 AM) (05/13/15 3:01 PM) Monocytes # [0.0-0.8 K/CMM] 0.7 K/CMM 0.4 K/CMM (05/15/15 3:56 AM) (05/13/15 3:01 PM) Eosinophils # [0.0-0.5 K/CMM] 0.2 K/CMM 0.1 K/CMM (05/15/15 3:56 AM) (05/13/15 3:01 PM) Basophils # [0.0-0.2 K/CMM] 0.1 K/CMM 0.1 K/CMM (05/15/15 3:56 AM) (05/13/15 3:01 PM) Immunizations Vaccine Date Refusal Reason pneumococcal 23-valent vaccine 11/27/13 Procedures Procedure Date Related Diagnosis Body Site Abdominal hysterectomy Cardiac catheterization Cervical discectomy1 section Spinal fusion Tonsillectomy 1anterior [...]
--- OUTSIDE RECORDS SUMMARY | 2018-12-17 18:59 | XMS REPORT | Summary of Care ---
:1970 Author Organization [facility] Address [address] [place], [place] [address]- Encounter HQ Gilberto(FIN) [phone] Date(s): 04/09/15 - 04/10/15 [facility] [address] [place] [address]- [phone] Discharge Disposition: Home Attending Physician: Arcadio Powell DO Admitting Physician: Arcadio Powell DO Vital Signs Most recent to oldest 1 2 3 [Reference Range]: Height 165.1 cm 165.1 cm (04/09/15 11:24 AM) (04/09/15 7:01 AM) Temperature Oral 98.8 DegF 97.9 DegF 97.8 DegF [96.4-99.1 DegF] (04/10/15 7:33 AM) (04/10/15 4:00 AM) (04/10/15 12:55 AM) Blood Pressure 141/86 mmHg 150/76 mmHg 119/76 mmHg [90-140/60-90 mmHg] *HI* *HI* (04/10/15 12:55 AM) (04/10/15 7:33 AM) (04/10/15 4:00 AM) Respiratory Rate [14-20 18 BRMIN 18 BRMIN 18 BRMIN BRMIN] (04/10/15 7:33 AM) (04/10/15 4:00 AM) (04/10/15 12:55 AM) Peripheral Pulse Rate 66 bpm 55 bpm 66 bpm [60-100 bpm] (04/10/15 7:33 AM) *LOW* (04/10/15 12:55 AM) (04/10/15 4:00 AM) Weight 99.545 kg 99.545 kg (04/09/15 11:24 AM) (04/09/15 7:01 AM) Body Mass Index 36.52 m2 36.52 m2 (04/09/15 11:24 AM) (04/09/15 7:01 AM) Problem List Condition Effective Dates Status Health Status Informant Chronic pain syndrome1 02/07/14 Active DM - Diabetes mellitus(Confirmed) Active FH: Diabetes mellitus2 12/17/13 Active HTN - Hypertension(Confirmed) Active Hyperlipidemia(Confirmed) Active Stroke(Confirmed) Active Stroke(Confirmed) Resolved 1Data migrated from [employer] on 12/16/14.2Data migrated from [employer] on 12/16/14. Allergies, Adverse Reactions, Alerts Substance Reaction Severity Status NKDA Active Medications aspirin 324 mg, 4 tab, Route: PO, Drug form: CHEWTAB, ONCE, Dosing Weight 99.545, kg, Priority: STAT, Start date: 04/09/15 8:11:00, Stop date: 04/09/15 8:11:00 Notes: Take with food. Start Date: 04/09/15 Stop Date: 04/09/15 Status: Completedaspirin 325 mg tablet 325 mg, Route: PO, Drug form: TAB, ONCE, Dosing Weight 99.545, kg, Start date: 04/09/15 10:23:00, Stop date: 04/09/15 10:23:00 Start Date: 04/09/15 Stop Date: 04/09/15 Status: Completedaspirin 81 mg tablet, enteric coated 81 mg, 1 tab, Route: PO, Drug form: ECTAB, Daily, Dosing Weight 99.545, kg, Start date: 04/10/15 9:00:00, Duration: 30 day, Stop date: 05/09/15 9:00:00 Notes: Do not crush or chew.(Same As: Ecotrin) Start Date: 04/10/15 Stop Date: 04/10/15 Status: DiscontinuedDextrose 50% Syringe 12.5 gm, 25 mL, Route: IVP, Drug Form: INJ, Dosing Weight 99.545, kg, PRN, PRN Blood Glucose Results, Start date: 04/09/15 15:24:00, Duration: 30 day, Stop date: 05/09/15 15:23:00 Start Date: 04/09/15 Stop Date: 04/10/15 Status: DiscontinuedDextrose 50% Syringe 25 gm, 50 mL, Route: IVP, Drug Form: INJ, Dosing Weight 99.545, kg, PRN, PRN Blood Glucose Results, Start date: 04/09/15 15:24:00, Duration: 30 day, Stop date: 05/09/15 15:23:00 Start Date: 04/09/15 Stop Date: 04/10/15 Status: Discontinuedenoxaparin 40 mg, 0.4 mL, Route: SUB-Q, Drug form: INJ, Daily, Dosing Weight 99.545, kg, Start date: 04/09/15 17:00:00, Duration: 30 day, Stop date: 05/08/15 17:00:00 Notes: (Same as: Lovenox) Start Date: 04/09/15 Stop Date: 04/10/15 Status: Discontinuedfurosemide 20 mg oral tablet 20 mg, 1 tab, Route: PO, Drug form: TAB, Daily, Dosing Weight 99.545, kg, Start date: 04/10/15 9:00:00, Duration: 30 day, Stop date: 05/09/15 9:00:00 Notes: (Same as: Lasix) May cause GI upset. Give with food or milk. Start Date: 04/10/15 Stop Date: 04/10/15 Status: Discontinuedglucagon 1 mg, Route: IM, Drug form: PDR/INJ, PRN, Dosing Weight 99.545, kg, PRN Blood Glucose Results, Startdate: 04/09/15 15:24:00, Duration: 30 day, Stop date: 15:23:00 Start Date: 04/09/15 Stop Date: 04/10/15 Status: Discontinuedhydrochlorothiazide 25 mg oral tablet 25 mg, 1 tab, Route: PO, Drug form: TAB, Daily, Start date: 04/10/15 9:00:00, Duration: 30 day, Stopdate: 05/09/15 9:00:00 Notes: (Same as: Hydrodiuril) With food. Start Date: 04/10/15 Stop Date: 04/10/15 Status: Discontinuedhydrochlorothiazide-lisinopril 25 mg-20 mg oral tablet 1 tab, Route: PO, Drug Form: TAB, Dosing Weight 99.545, kg, Daily, Start date: 04/10/15 9:00:00, Duration: 30 day, Stop date: 05/09/15 9:00:00 Start Date: 04/10/15 Stop Date: 04/09/15 Status: Deletedinsulin aspart 6 unit, 0.06 mL, Route: SUB-Q, Drug form: SOLN, TID-Before Meals, Dosing Weight 99.545, kg, PRN Blood Glucose Results, Start date: 04/09/15 15:24:00, Duration: 30 day, Stop date: 05/09/15 15:23:00 Notes: Roll in palms of hands gently; Do not shake vigorously. (Same as: NovoLOG)"single patient use only" Stable for 28 days at room temperature.Expires in days from Date Start Date: 04/09/15 Stop Date: 04/10/15 Status: Discontinuedinsulin aspart 9 unit, 0.09 mL, Route: SUB-Q, Drug form: SOLN, TID-Before Meals, Dosing Weight 99.545, kg, PRN Blood Glucose Results, Start date: 04/09/15 15:24:00, Duration: 30 day, Stop date: 05/09/15 15:23:00 Notes: Roll in palms of hands gently; Do not shake vigorously. (Same as: NovoLOG)"single patient use only" Stable for 28 days at room temperature.Expires in days from Date Start Date: 04/09/15 Stop Date: 04/10/15 Status: Discontinuedinsulin aspart 12 unit, 0.12 mL, Route: SUB-Q, Drug form: SOLN, TID-Before Meals, Dosing Weight 99.545, kg, PRN Blood Glucose Results, Start date: 04/09/15 15:24:00, Duration: 30 day, Stop date: 05/09/15 15:23:00 Notes: Roll in palms of hands gently; Do not shake vigorously. (Same as: NovoLOG)"single patient use only" Stable for 28 days at room temperature.Expires in days from Date Start Date: 04/09/15 Stop Date: 04/10/15 Status: Discontinuedinsulin aspart 15 unit, 0.15 mL, Route: SUB-Q, Drug form: SOLN, TID-Before Meals, Dosing Weight 99.545, kg, PRN Blood Glucose Results, Start date: 04/09/15 15:24:00, Duration: 30 day, Stop date: 05/09/15 15:23:00 Notes: Roll in palms of hands gently; Do not shake vigorously. (Same as: NovoLOG)"single patient use only" Stable for 28 days at room temperature.Expires in days from Date Start Date: 04/09/15 Stop Date: 04/10/15 Status: Discontinuedinsulin aspart 3 unit, 0.03 mL, Route: SUB-Q, Drug form: SOLN, TID-Before Meals, Dosing Weight 99.545, kg, PRN Blood Glucose Results, Start date: 04/09/15 15:24:00, Duration: 30 day, Stop date: 05/09/15 15:23:00 Notes: Roll in palms of hands gently; Do not shake vigorously. (Same as: NovoLOG)"single patient use only" Stable for 28 days at room temperature.Expires in days from Date Start Date: 04/09/15 Stop Date: 04/10/15 Status: Discontinuedinsulin aspart 1 unit, 0.01 mL, Route: SUB-Q, Drug form: SOLN, Bedtime, Dosing Weight 99.545, kg, PRN Blood GlucoseResults, Start date: 04/09/15 15:24:00, Duration: 30 day, Stop date: 05/09/15 15:23:00 Notes: Roll in palms of hands gently; Do not shake vigorously. (Same as: NovoLOG)"single patient use only" Stable for 28 days at room temperature.Expires in days from Date Start Date: 04/09/15 Stop Date: 04/10/15 Status: Discontinuedinsulin aspart 2 unit, 0.02 mL, Route: SUB-Q, Drug form: SOLN, Bedtime, Dosing Weight 99.545, kg, PRN Blood GlucoseResults, Start date: 04/09/15 15:24:00, Duration: 30 day, Stop date: 05/09/15 15:23:00 Notes: Roll in palms of hands gently; Do not shake vigorously. (Same as: NovoLOG)"single patient use only" Stable for 28 days at room temperature.Expires in days from Date Start Date: 04/09/15 Stop Date: 04/10/15 Status: Discontinuedinsulin aspart 3 unit, 0.03 mL, Route: SUB-Q, Drug form: SOLN, Bedtime, Dosing Weight 99.545, kg, PRN Blood GlucoseResults, Start date: 04/09/15 15:24:00, Duration: 30 day, Stop date: 05/09/15 15:23:00 Notes: Roll in palms of hands gently; Do not shake vigorously. (Same as: NovoLOG)"single patient use only" Stable for 28 days at room temperature.Expires in days from Date Start Date: 04/09/15 Stop Date: 04/10/15 Status: Discontinuedinsulin aspart 4 unit, 0.04 mL, Route: SUB-Q, Drug form: SOLN, Bedtime, Dosing Weight 99.545, kg, PRN Blood GlucoseResults, Start date: 04/09/15 15:24:00, Duration: 30 day, Stop date: 05/09/15 15:23:00 Notes: Roll in palms of hands gently; Do not shake vigorously. (Same as: NovoLOG)"single patient use only" Stable for 28 days at room temperature.Expires in days from Date Start Date: 04/09/15 Stop Date: 04/10/15 Status: Discontinuedinsulin detemir 30 unit, 0.3 mL, Route: SUB-Q, Drug form: INJ, Bedtime, Dosing Weight 99.545, kg , Start date: 04/09/15 21:00:00, Duration: 30 day, Stop date: 05/08/15 21:00:00 Notes: Same as Sy not hold insulin without contacting prescriber " single patient use only" Start Date: 04/09/15 Stop Date: 04/10/15 Status: DiscontinuedInsulin regular 6 unit, Route: IV, ONCE, Dosing Weight 99.545, kg, Priority: STAT, Start date: 04/09/15 9:56:00, Stop date: 04/09/15 9:56:00 Start Date: 04/09/15 Stop Date: 04/09/15 Status: CompletedInsulin regular 10 unit, Route: IVP, ONCE, Dosing Weight 99.545, kg, Priority: STAT, Start date : 04/09/15 9:29:00, Stop date: 04/09/15 9:29:00 Start Date: 04/09/15 Stop Date: 04/09/15 Status: DiscontinuedLipitor 80 mg, 2 tab, Route: PO, Drug form: TAB, Bedtime, Dosing Weight 99.545, kg, Start date: 04/09/15 21:00:00, Duration: 30 day, Stop date: 05/08/15 21:00:00 Notes: (Same as: Lipitor) Start Date: 04/09/15 Stop Date: 04/10/15 Status: Discontinuedmethocarbamol 750 mg, 1 tab, Route: PO, Drug form: TAB, Bedtime, Dosing Weight 99.545, kg, PRN Muscle Spasms, Start date: 04/09/15 15:25:00, Duration: 30 day, Stop date: 05/09/15 15:24:00 Notes: (Same as:Robaxin) Start Date: 04/09/15 Stop Date: 04/10/15 Status: Discontinuedmorphine Sulfate 2 mg, Route: IVP, Drug form: INJ, ONCE, Dosing Weight 99.545, kg, Priority: STAT , Start date: 04/09/15 9:55:00, Stop date: 04/09/15 9:55:00 Start Date: 04/09/15 Stop Date: 04/09/15 Status: Completednitroglycerin 2% ointment 0.5 inch, Route: TOP, Drug Form: OINT, Dosing Weight 99.545, kg, TID, Start date : 04/09/15 12:00:00,Duration: 30 day, Stop date: 05/09/15 6:00:00 Notes: 1 gram is approximately 1 inch of nitroglycerin ointment (20 mg NTG per gram) (Same as:Nitro-Bid) Start Date: 04/09/15 Stop Date: 04/10/15 Status: Discontinuednitroglycerin 2% ointment 1 inch, Route: TOP, Drug Form: OINT, Dosing Weight 99.545, kg, ONCE, STAT, Start date: 04/09/15 8:11:00, Stop date: 04/09/15 8:11:00 Notes: 1 gram is approximately 1 inch of nitroglycerin ointment (20 mg NTG per gram) (Same as:Nitro-Bid) Start Date: 04/09/15 Stop Date: 04/09/15 Status: Completednitroglycerin 2% topical ointment 0.5 inch, TOP, TID, # 3 gm, 0 Refill(s) Start Date: 04/10/15 Status: Orderednitroglycerin SL Tab 0.4 mg, 1 tab, Route: SL, Drug form: TAB, Q5Min, Dosing Weight 99.545, kg, PRN Chest Pain, Start date: 04/09/15 10:23:00, Duration: 3 doses or times, Stop date : Limited # of times Notes: (Same as:Nitroquick, Nitrostat)"Do Not Crush" Sublingual tablet Start Date: 04/09/15 Stop Date: 04/10/15 Status: DiscontinuedNovoLOG PenFill 30 unit, 0.3 mL, Route: SUB-Q, Drug form: SOLN, TID-Before Meals, Dosing Weight 99.545, kg, Start date: 04/09/15 16:30:00, Duration: 30 day, Stop date: 11:30:00 Notes: Roll in palms of hands gently; Do not shake vigorously. (Same as: NovoLOG)"single patient use only" Stable for 28 days at room temperature.Expires in days from Date Start Date: 04/09/15 Stop Date: 04/10/15 Status: Discontinuedondansetron 4 mg, 1 tab, Route: PO, Drug form: TAB, Q8H, Dosing Weight 99.545, kg, PRN Nausea & Vomiting, Start date: 04/09/15 10:23:00, Duration: 30 day, Stop date: 05/09/15 10:22:00 Notes: (Same as: Zofran) Start Date: 04/09/15 Stop Date: 04/10/15 Status: DiscontinuedPrinivil 20 mg, 1 tab, Route: PO, Drug form: TAB, Daily, Start date: 04/10/15 9:00:00, Duration: 30 day, Stopdate: 05/09/15 9:00:00 Notes: (Same as: Prinivil, Zestril) Start Date: 04/10/15 Stop Date: 04/10/15 Status: DiscontinuedPROzac 40 mg, 2 cap, Route: PO, Drug form: CAP, Bedtime, Dosing Weight 99.545, kg, Start date: 04/09/15 21:00:00, Duration: 30 day, Stop date: 05/08/15 21:00:00 Notes: (Same as: Prozac, Sarafem) Start Date: 04/09/15 Stop Date: 04/10/15 Status: DiscontinuedSaline Flush 0.9% 10 ml, Route: IVP, Drug Form: INJ, Dosing Weight 99.545, kg, Q12H, Start date: 04/09/15 21:00:00, Duration: 30 day, Stop date: 05/09/15 9:00:00 Notes: (Same as: BD Posiflush) Start Date: 04/09/15 Stop Date: 04/10/15 Status: DiscontinuedSaline Flush 0.9% 10 ml, Route: IVP, Drug Form: INJ, Dosing Weight 99.545, kg, PRN, PRN Line Flush , Start date: 04/09/15 10:23:00, Duration: 30 day, Stop date: 05/09/15 10:22:00 Notes: (Same as: BD Posiflush) Start Date: 04/09/15 Stop Date: 04/10/15 Status: DiscontinuedSaline Flush 0.9% 10 mL, Route: IVP, Drug Form: INJ, Dosing Weight 99.545, kg, PRN, PRN Line Flush , Start date: 04/09/15 8:11:00, Duration: 30 day, Stop date: 05/09/15 8:10:00 Notes: (Same as: BD Posiflush) Start Date: 04/09/15 Stop Date: 04/09/15 Status: DiscontinuedSodium Chloride 0.9% IV 1,000 mL 1,000 mL, Rate: 50 ml/hr, Infuse over: 20 hr, Route: IV, Dosing Weight 99.545 kg , Total Volume: 1,000, Start date: 04/09/15 10:23:00, Duration: 30 day, Stop date: 05/09/15 10:22:00 Start Date: 04/09/15 Stop Date: 04/10/15 Status: DiscontinuedTylenol 650 mg, 2 tab, Route: PO, Drug form: TAB, Q6H, Dosing Weight 99.545, kg, PRN Pain Score 1-3, Start date: 04/09/15 15:35:00, Duration: 30 day, Stop date: 15:34:00 Notes: Do not exceed 4 gm/day. (Same as: Tylenol) Start Date: 04/09/15 Stop Date: 04/10/15 Status: Discontinuedverapamil 120 mg, 1 tab, Route: PO, Drug form: TAB, BID, Dosing Weight 99.545, kg, Start date: 04/09/15 21:00:00, Duration: 30 day, Stop date: 05/09/15 9:00:00 Notes: (Same As: Matthew Alfaro) "Avoid grapefruit and grapefruit juice" Start Date: 04/09/15 Stop Date: 04/10/15 Status: DiscontinuedZofran 4 mg, Route: IVP, Drug form: INJ, ONCE, Dosing Weight 99.545, kg, Priority: STAT , Start date: 04/09/15 8:34:00, Stop date: 04/09/15 8:34:00 Start Date: 04/09/15 Stop Date: 04/09/15 Status: CompletedZyPREXA 10 mg, 1 tab, Route: PO, Drug form: TAB, Bedtime, Dosing Weight 99.545, kg, Start date: 04/09/15 21:00:00, Duration: 30 day, Stop date: 05/08/15 21:00:00 Notes: (Same as: ZyPREXA) Start Date: 04/09/15 Stop Date: 04/10/15 Status: Discontinued Results ELECTROLYTES Most recent to oldest [Reference Range]: 1 2 3 Sodium Lvl [135-145 mEq/L] 133 mEq/L *LOW* (04/09/15 8:25 AM) Potassium Lvl [3.5-5.1 mEq/L] 3.9 mEq/L (04/09/15 8:25 AM) Chloride Lvl [95-109 mEq/L] 99 mEq/L (04/09/15 8:25 AM) CO2 [24-32 mEq/L] 25 mEq/L (04/09/15 8:25 AM) AGAP [10.0-20.0 mEq/L] 12.9 mEq/L (04/09/15 8:25 AM) CHEM PANEL Most recent to oldest [Reference Range]: 1 2 3 Creatinine Lvl [0.50-1.40 mg/dL] 1.13 mg/dL 0.79 mg/dL (04/09/15 6:03 PM) (04/09/15 8:25 AM) eGFR 67 mL/min/1.73m2 1 104 mL/min/1.73m2 2 *NA* *NA* (04/09/15 6:03 PM) (04/09/15 8:25 AM) BUN [7-22 mg/dL] 9 mg/dL (04/09/15 8:25 AM) B/C Ratio [6-25] 11 (04/09/15 8:25 AM) Glucose Lvl [70-99 mg/dL] 348 mg/dL *HI* (04/09/15 8:25 AM) Total Protein [6.4-8.4 g/dL] 7.5 g/dL (04/09/15 8:25 AM) Albumin Lvl [3.5-5.0 g/dL] 3.5 g/dL (04/09/15 8:25 AM) Globulin [2.0-4.0 g/dL] 4.0 g/dL (04/09/15 8:25 AM) A/G Ratio [0.7-1.6] 0.9 (04/09/15 8:25 AM) Calcium Lvl [8.5-10.5 mg/dL] 10.1 mg/dL (04/09/15 8:25 AM) ALT [0-65 unit/L] 24 unit/L (04/09/15 8:25 AM) AST [0-37 unit/L] 16 unit/L (04/09/15 8:25 AM) Alk Phos [39-136 unit/L] 85 unit/L (04/09/15 8:25 AM) Bili Total [0.2-1.3 mg/dL] 0.4 mg/dL (04/09/15 8:25 AM) 1Result Comment: The eGFR is calculated [...] 3 [Reference Range]: Total CK [12-191 unit/L] 148 unit/L 152 unit/L 186 unit/L (04/09/15 4:21 PM) (04/09/15 1:04 PM) (04/09/15 8:25 AM) CK MB [0.5-3.6 ng/mL] <0.5 ng/mL <0.5 ng/mL <0.5 ng/mL (04/09/15 4:21 PM) (04/09/15 1:04 PM) (04/09/15 8:25 AM) CK MB Index [0.0-2.5] <0.3 <0.3 <0.3 (04/09/15 4:21 PM) (04/09/15 1:04 PM) (04/09/15 8:25 AM) Troponin-I [0.00-0.40 <0.02 ng/mL <0.02 ng/mL <0.02 ng/mL ng/mL] (04/09/15 4:21 PM) (04/09/15 1:04 PM) (04/09/15 8:25 AM) LIPIDS Most recent to oldest [Reference Range]: 1 2 3 CHD Risk [3.90-5.80] 8.66 *HI* (04/10/15 3:49 AM) Chol [<=199 mg/dL] 277 mg/dL *HI* (04/10/15 3:49 AM) Trig [<=149 mg/dL] 415 mg/dL *HI* (04/10/15 3:49 AM) HDL [>=61 mg/dL] 32 mg/dL *LOW* (04/10/15 3:49 AM) LDL (Calculated) [<=99 mg/dL] See Note mg/dL 1 *NA* (04/10/15 3:49 AM) VLDL See Note 2 *NA* (04/10/15 3:49 AM) 1Result Comment: LDL cholesterol cannot be calculated due to very high triglycerides (>400 mg/dL). Recommend Direct LDL if clinically indicated.2Result Comment: VLDL - Cholesterol level cannot be accurately calculated due to very high triglycerides (>400 mg/dL).SPECIAL CHEMISTRY Most recent to oldest [Reference Range]: 1 2 3 Hgb A1C [<=5.6 %] >16.0 % (04/09/15 6:03 PM) HEMATOLOGY Most recent to oldest [Reference Range]: 1 2 3 WBC [3.7-10.4 K/CMM] 7.7 K/CMM (04/09/15 8:25 AM) RBC [4.20-5.40 M/CMM] 4.33 M/CMM (04/09/15 8:25 AM) Hgb [12.0-16.0 g/dL] 12.9 g/dL (04/09/15 8:25 AM) Hct [36.0-48.0 %] 39.5 % (04/09/15 8:25 AM) MCV [80.0-98.0 fL] 91.2 fL (04/09/15 8:25 AM) MCH [27.0-31.0 pg] 29.9 pg (04/09/15 8:25 AM) MCHC [32.0-36.0 g/dL] 32.8 g/dL (04/09/15 8:25 AM) RDW [11.5-14.5 %] 13.0 % (04/09/15 8:25 AM) Platelet [133-450 K/CMM] 234 K/CMM 242 K/CMM (04/09/15 6:03 PM) (04/09/15 8:25 AM) MPV [7.4-10.4 fL] 10.6 fL *HI* (04/09/15 8:25 AM) Segs [45.0-75.0 %] 60.2 % (04/09/15 8:25 AM) Lymphocytes [20.0-40.0 %] 28.2 % (04/09/15 8:25 AM) Monocytes [2.0-12.0 %] 7.9 % (04/09/15 8:25 AM) Eosinophils [0.0-4.0 %] 2.3 % (04/09/15 8:25 AM) Basophils [0.0-1.0 %] 1.4 % *HI* (04/09/15 8:25 AM) Segs-Bands # [1.5-8.1 K/CMM] 4.6 K/CMM (04/09/15 8:25 AM) Lymphocytes # [1.0-5.5 K/CMM] 2.2 K/CMM (04/09/15 8:25 AM) Monocytes # [0.0-0.8 K/CMM] 0.6 K/CMM (04/09/15 8:25 AM) Eosinophils # [0.0-0.5 K/CMM] 0.2 K/CMM (04/09/15 8:25 AM) Basophils # [0.0-0.2 K/CMM] 0.1 K/CMM (04/09/15 8:25 AM) PTT [22.9-35.8 seconds] 28.3 seconds (04/09/15 6:03 PM) Immunizations Vaccine Date Refusal Reason pneumococcal [...]
--- OUTSIDE RECORDS SUMMARY | 2018-12-17 18:59 | XMS REPORT | Summary of Care ---
:1970 Author Organization [facility] Address [address] [place], [place] [address]- Encounter HQ Gilberto(FIN) [phone] Date(s): 05/01/15 - 05/03/15 [facility] [address] [place] [address]- Discharge Disposition: Home Attending Physician: Davin Farmer DO Admitting Physician: Davin Farmer DO Vital Signs Most recent to oldest 1 2 3 [Reference Range]: Height 165.1 cm 165.1 cm (05/01/15 4:49 PM) (05/01/15 10:27 AM) Temperature Oral [96.4-99.1 98.2 DegF 97.5 DegF 97.9 DegF DegF] (05/03/15 8:08 AM) (05/03/15 3:26 AM) (05/03/15 12:42 AM) Blood Pressure [90-140/60-90 146/85 mmHg 146/90 mmHg 126/80 mmHg mmHg] *HI* *HI* (05/03/15 12:42 AM) (05/03/15 8:08 AM) (05/03/15 3:26 AM) Respiratory Rate [14-20 BRMIN] 18 BRMIN 18 BRMIN 18 BRMIN (05/03/15 8:08 AM) (05/03/15 3:26 AM) (05/03/15 12:42 AM) Peripheral Pulse Rate [60-100 99 bpm 67 bpm 76 bpm bpm] (05/03/15 8:08 AM) (05/03/15 3:26 AM) (05/03/15 12:42 AM) Weight 99.545 kg 99.545 kg (05/01/15 4:49 PM) (05/01/15 10:27 AM) Body Mass Index 36.52 m2 36.52 m2 (05/01/15 4:49 PM) (05/01/15 10:27 AM) Problem List Condition Effective Dates Status Health Status Informant Chronic pain syndrome1 02/07/14 Active DM - Diabetes mellitus(Confirmed) Active FH: Diabetes mellitus2 12/17/13 Active HTN - Hypertension(Confirmed) Active Hyperlipidemia(Confirmed) Active Stroke(Confirmed) Active Stroke(Confirmed) Resolved 1Data migrated from [employer] on 12/16/14.2Data migrated from [employer] on 12/16/14. Allergies, Adverse Reactions, Alerts Substance Reaction Severity Status NKDA Active Medications aspirin 324 mg, Route: PO, ONCE, Dosing Weight 99.545, kg, Priority: STAT, Start date: 05/01/15 11:18:00, Stop date: 05/01/15 11:18:00 Start Date: 05/01/15 Stop Date: 05/01/15 Status: Completedaspirin 81 mg tablet, enteric coated 81 mg, 1 tab, Route: PO, Drug form: ECTAB, Daily, Dosing Weight 99.545, kg, Start date: 05/02/15 9:00:00, Duration: 30 day, Stop date: 05/31/15 9:00:00 Notes: Do not crush or chew.(Same As: Ecotrin) Start Date: 05/02/15 Stop Date: 05/03/15 Status: Discontinuedatropine 0.5 mg, 5 mL, Route: IV, Drug form: INJ, PRN, Dosing Weight 99.545, kg, PRN Bradycardia, symptomaticbradycardia less than 40 bpm, Start date: 05/01/15 15:53 :00, Stop date: 05/31/15 15:52:00 Start Date: 05/01/15 Stop Date: 05/03/15 Status: DiscontinuedDextrose 50% Syringe 12.5 gm, 25 mL, Route: IVP, Drug Form: INJ, Dosing Weight 99.545, kg, PRN, PRN Blood Glucose Results, Start date: 05/01/15 12:21:00, Duration: 30 day, Stop date: 05/31/15 12:20:00 Start Date: 05/01/15 Stop Date: 05/03/15 Status: DiscontinuedDextrose 50% Syringe 25 gm, 50 mL, Route: IVP, Drug Form: INJ, Dosing Weight 99.545, kg, PRN, PRN Blood Glucose Results, Start date: 05/01/15 12:21:00, Duration: 30 day, Stop date: 05/31/15 12:20:00 Start Date: 05/01/15 Stop Date: 05/03/15 Status: Discontinuedenoxaparin 40 mg, 0.4 mL, Route: SUB-Q, Drug form: INJ, [id number], Dosing Weight 99.545, kg , Start date: 05/01/15 13:00:00, Duration: 30 day, Stop date: 05/30/15 13:00:00 Notes: (Same as: Lovenox) Start Date: 05/01/15 Stop Date: 05/03/15 Status: Discontinuedgemfibrozil 600 mg, 1 tab, Route: PO, Drug form: TAB, BID, Dosing Weight 99.545, kg, Start date: 05/02/15 9:00:00, Duration: 30 day, Stop date: 05/31/15 17:00:00 Notes: (Same as: Lopid) Start Date: 05/02/15 Stop Date: 05/03/15 Status: Discontinuedgemfibrozil 600 mg oral tablet 600 mg=1 tab, PO, BID, # 60 tab, 0 Refill(s) Start Date: 05/03/15 Status: Orderedglucagon 1 mg, Route: IM, Drug form: PDR/INJ, PRN, Dosing Weight 99.545, kg, PRN Blood Glucose Results, Startdate: 05/01/15 12:21:00, Duration: 30 day, Stop date: 11/06 12:20:00 Start Date: 05/01/15 Stop Date: 05/03/15 Status: Discontinuedhydrochlorothiazide 25 mg oral tablet 25 mg, 1 tab, Route: PO, Drug form: TAB, Daily, Start date: 05/02/15 9:00:00, Duration: 30 day, Stopdate: 05/31/15 9:00:00 Notes: (Same as: Hydrodiuril) With food. Start Date: 05/02/15 Stop Date: 05/03/15 Status: Discontinuedhydrochlorothiazide-lisinopril 25 mg-20 mg oral tablet 1 tab, Route: PO, Drug Form: TAB, Dosing Weight 99.545, kg, Daily, Start date: 05/02/15 9:00:00, Duration: 30 day, Stop date: 05/31/15 9:00:00 Start Date: 05/02/15 Stop Date: 05/01/15 Status: DeletedImdur 30 mg, 1 tab, Route: PO, Drug form: ERTAB, Daily, Start date: 05/03/15 9:00:00, Duration: 30 day, Stop date: 06/01/15 9:00:00 Notes: (Same as:Imdur)"Do Not Crush" Take on empty stomach/ full glass of water. Do not crush Start Date: 05/03/15 Stop Date: 05/03/15 Status: DiscontinuedImdur 30 mg, 1 tab, Route: PO, Drug form: ERTAB, QAM, Dosing Weight 99.545, kg, Priority: STAT, Start date: 05/02/15 13:23:00, Duration: 30 day, Stop date: 12/07 9:00:00 Notes: (Same as:Imdur)"Do Not Crush" Take on empty stomach/ full glass of water. Do not crush Start Date: 05/02/15 Stop Date: 05/02/15 Status: Deletedinsulin aspart 4 unit, 0.04 mL, Route: SUB-Q, Drug form: SOLN, Bedtime, Dosing Weight 99.545, kg, PRN Blood GlucoseResults, Start date: 05/01/15 12:21:00, Duration: 30 day, Stop date: 05/31/15 12:20:00 Notes: Roll in palms of hands gently; Do not shake vigorously. (Same as: NovoLOG)"single patient use only" Stable for 28 days at room temperature.Expires in days from Date Start Date: 05/01/15 Stop Date: 05/03/15 Status: Discontinuedinsulin aspart 1 unit, 0.01 mL, Route: SUB-Q, Drug form: SOLN, Bedtime, Dosing Weight 99.545, kg, PRN Blood GlucoseResults, Start date: 05/01/15 12:21:00, Duration: 30 day, Stop date: 05/31/15 12:20:00 Notes: Roll in palms of hands gently; Do not shake vigorously. (Same as: NovoLOG)"single patient use only" Stable for 28 days at room temperature.Expires in days from Date Start Date: 05/01/15 Stop Date: 05/03/15 Status: Discontinuedinsulin aspart 3 unit, 0.03 mL, Route: SUB-Q, Drug form: SOLN, Bedtime, Dosing Weight 99.545, kg, PRN Blood GlucoseResults, Start date: 05/01/15 12:21:00, Duration: 30 day, Stop date: 05/31/15 12:20:00 Notes: Roll in palms of hands gently; Do not shake vigorously. (Same as: NovoLOG)"single patient use only" Stable for 28 days at room temperature.Expires in days from Date Start Date: 05/01/15 Stop Date: 05/03/15 Status: Discontinuedinsulin aspart 2 unit, 0.02 mL, Route: SUB-Q, Drug form: SOLN, Bedtime, Dosing Weight 99.545, kg, PRN Blood GlucoseResults, Start date: 05/01/15 12:21:00, Duration: 30 day, Stop date: 05/31/15 12:20:00 Notes: Roll in palms of hands gently; Do not shake vigorously. (Same as: NovoLOG)"single patient use only" Stable for 28 days at room temperature.Expires in days from Date Start Date: 05/01/15 Stop Date: 05/03/15 Status: Discontinuedinsulin aspart 8 unit, 0.08 mL, Route: SUB-Q, Drug form: SOLN, TID-Before Meals, Dosing Weight 99.545, kg, PRN Blood Glucose Results, Start date: 05/01/15 12:21:00, Duration: 30 day, Stop date: 05/31/15 12:20:00 Notes: Roll in palms of hands gently; Do not shake vigorously. (Same as: NovoLOG)"single patient use only" Stable for 28 days at room temperature.Expires in days from Date Start Date: 05/01/15 Stop Date: 05/03/15 Status: Discontinuedinsulin aspart 10 unit, 0.1 mL, Route: SUB-Q, Drug form: SOLN, TID-Before Meals, Dosing Weight 99.545, kg, PRN Blood Glucose Results, Start date: 05/01/15 12:21:00, Duration: 30 day, Stop date: 05/31/15 12:20:00 Notes: Roll in palms of hands gently; Do not shake vigorously. (Same as: NovoLOG)"single patient use only" Stable for 28 days at room temperature.Expires in days from Date Start Date: 05/01/15 Stop Date: 05/03/15 Status: Discontinuedinsulin aspart 6 unit, 0.06 mL, Route: SUB-Q, Drug form: SOLN, TID-Before Meals, Dosing Weight 99.545, kg, PRN Blood Glucose Results, Start date: 05/01/15 12:21:00, Duration: 30 day, Stop date: 05/31/15 12:20:00 Notes: Roll in palms of hands gently; Do not shake vigorously. (Same as: NovoLOG)"single patient use only" Stable for 28 days at room temperature.Expires in days from Date Start Date: 05/01/15 Stop Date: 05/03/15 Status: Discontinuedinsulin aspart 4 unit, 0.04 mL, Route: SUB-Q, Drug form: SOLN, TID-Before Meals, Dosing Weight 99.545, kg, PRN Blood Glucose Results, Start date: 05/01/15 12:21:00, Duration: 30 day, Stop date: 05/31/15 12:20:00 Notes: Roll in palms of hands gently; Do not shake vigorously. (Same as: NovoLOG)"single patient use only" Stable for 28 days at room temperature.Expires in days from Date Start Date: 05/01/15 Stop Date: 05/03/15 Status: Discontinuedinsulin aspart 2 unit, 0.02 mL, Route: SUB-Q, Drug form: SOLN, TID-Before Meals, Dosing Weight 99.545, kg, PRN Blood Glucose Results, Start date: 05/01/15 12:21:00, Duration: 30 day, Stop date: 05/31/15 12:20:00 Notes: Roll in palms of hands gently; Do not shake vigorously. (Same as: NovoLOG)"single patient use only" Stable for 28 days at room temperature.Expires in days from Date Start Date: 05/01/15 Stop Date: 05/03/15 Status: DiscontinuedInsulin regular 15 unit, Route: SUB-Q, ONCE, Dosing Weight 99.545, kg, Start date: 05/01/15 14: 48:00, Stop date: 05/01/15 14:48:00 Start Date: 05/01/15 Stop Date: 05/01/15 Status: CompletedInsulin regular 10 unit, Route: SUB-Q, ONCE, Dosing Weight 99.545, kg, Start date: 05/01/15 13: 35:00, Stop date: 05/01/15 13:35:00 Start Date: 05/01/15 Stop Date: 05/01/15 Status: Completedisosorbide mononitrate 30 mg oral tablet, extended release 30 mg=1 tab, PO, Daily, # 30 tab, 0 Refill(s) Start Date: 05/03/15 Status: Orderedisosorbide mononitrate extended release 60 mg, 1 tab, Route: PO, Drug form: ERTAB, QAM, Dosing Weight 99.545, kg, Start date: 05/02/15 9:00:00, Duration: 30 day, Stop date: 05/31/15 9:00:00 Notes: (Same as:Imdur)"Do Not Crush" Take on empty stomach/ full glass of water. Do not crush Start Date: 05/02/15 Stop Date: 05/02/15 Status: DiscontinuedLevemir 20 unit, 0.2 mL, Route: SUB-Q, Drug form: INJ, Bedtime, Dosing Weight 99.545, kg , Start date: 05/01/15 21:00:00, Duration: 30 day, Stop date: 05/30/15 21:00:00 Notes: Same as LevemirDo not hold insulin without contacting prescriber " single patient use only" Start Date: 05/01/15 Stop Date: 05/02/15 Status: DiscontinuedLevemir 20 unit, 0.2 mL, Route: SUB-Q, Drug form: INJ, Q12H, Dosing Weight 99.545, kg, Start date: 05/02/15 21:00:00, Duration: 30 day, Stop date: 06/01/15 9:00:00 Notes: Same as LevemirDo not hold insulin without contacting prescriber " single patient use only" Start Date: 05/02/15 Stop Date: 05/03/15 Status: DiscontinuedLevemir FlexTouch 100 units/mL subcutaneous solution 30 unit, SUB-Q, Bedtime, # 10 mL, 0 Refill(s) Start Date: 05/03/15 Status: OrderedLipitor 80 mg, 2 tab, Route: PO, Drug form: TAB, Bedtime, Dosing Weight 99.545, kg, Start date: 05/01/15 21:00:00, Duration: 30 day, Stop date: 05/30/15 21:00:00 Notes: (Same as: Lipitor) Start Date: 05/01/15 Stop Date: 05/03/15 Status: DiscontinuedLipitor 80 mg oral tablet 80 mg=1 tab, PO, Bedtime, # 30 tab, 0 Refill(s) Start Date: 05/03/15 Status: Orderedlisinopril 20 mg oral tablet 20 mg=1 tab, PO, Daily, # 30 tab, 0 Refill(s) Start Date: 05/03/15 Status: OrderedmetFORMIN 1000 mg oral tablet 1,000 mg, 2 tab, Route: PO, Drug form: TAB, BID, Dosing Weight 99.545, kg, Start date: 05/01/15 17:00:00, Duration: 30 day, Stop date: 05/31/15 9:00:00 Notes: (Same as: Glucophage) Take with meal Start Date: 05/01/15 Stop Date: 05/03/15 Status: Discontinuedmetoprolol 25 mg oral tablet, extended release 25 mg=1 tab, PO, Daily, # 30 tab, 0 Refill(s) Start Date: 05/03/15 Status: Orderedmetoprolol extended release 25 mg, 1 tab, Route: PO, Drug form: ERTAB, Daily, Priority: NOW, Start date: 12/07 16:53:00, Duration: 30 day, Stop date: 05/31/15 9:00:00 Notes: (Same as: Toprol XL) Do Not Crush Start Date: 05/01/15 Stop Date: 05/03/15 Status: Discontinuednitroglycerin 0.4 mg sublingual tablet 0.4 mg, 1 tab, Route: SL, Drug form: TAB, Q5Min, Dosing Weight 99.545, kg, PRN Chest Pain, Start date: 05/01/15 16:56:00, Duration: 30 day, Stop date: 16:55:00 Start Date: 05/01/15 Stop Date: 05/01/15 Status: Deletednitroglycerin 0.4 mg sublingual tablet 0.4 mg=1 tab, SL, Q5Min, PRN Chest pain, Give up to 3 doses Start Date: 05/01/15 Status: Orderednitroglycerin 2% ointment 0.5 inch, Route: TOP, Drug Form: OINT, Dosing Weight 99.545, kg, TID, Start date : 05/01/15 17:00:00,Duration: 30 day, Stop date: 05/31/15 12:00:00 Notes: 1 gram is approximately 1 inch of nitroglycerin ointment (20 mg NTG per gram) (Same as:Nitro-Bid) Start Date: 05/01/15 Stop Date: 05/03/15 Status: Discontinuednitroglycerin SL Tab 0.4 mg, 1 tab, Route: SL, Drug form: TAB, Q5Min, Dosing Weight 99.545, kg, PRN Chest Pain, Start date: 05/01/15 15:46:00, Duration: 3 doses or times, Stop date : Limited # of times Notes: (Same as:Nitroquick, Nitrostat)"Do Not Crush" Sublingual tablet Start Date: 05/01/15 Stop Date: 05/03/15 Status: DiscontinuedNorco 5/325 oral tablet 1 tab, Route: PO, Drug Form: TAB, Dosing Weight 99.545, kg, Q6H, PRN Pain Score 1-3, Start date: 05/01/15 22:05:00, Duration: 30 day, Stop date: 05/31/15 22:04: 00 Notes: (Same as: [place] 325/5) Do not exceed 4gm/day of acetaminophen. Start Date: 05/01/15 Stop Date: 05/03/15 Status: DiscontinuedNS (Bolus) IV 1,000 mL, 1,000 ml/hr, Infuse Over: 1 hr, Route: IV, ONCE, Priority: STAT, Dosing Weight 99.545 kg, Start date: 05/01/15 13:51:00, Duration: 1 doses or times, Stop date: 05/01/15 13:51:00 Start Date: 05/01/15 Stop Date: 05/01/15 Status: CompletedNS (Bolus) IV 1,000 mL, 1,000 ml/hr, Infuse Over: 1 hr, Route: IV, ONCE, Priority: STAT, Dosing Weight 99.545 kg, Start date: 05/01/15 13:51:00, Duration: 1 doses or times, Stop date: 05/01/15 13:51:00 Start Date: 05/01/15 Stop Date: 05/01/15 Status: CompletedNS 1,000 mL 1,000 mL, Rate: 125 ml/hr, Infuse over: 8 hr, Route: IV, Dosing Weight 99.545 kg , Total Volume: 1,000, Start date: 05/01/15 15:46:00, Duration: 30 day, Stop date: 05/31/15 15:45:00 Start Date: 05/01/15 Stop Date: 05/03/15 Status: Discontinuedondansetron 4 mg, 1 tab, Route: PO, Drug form: TAB, Q8H, Dosing Weight 99.545, kg, PRN Nausea & Vomiting, Start date: 05/01/15 15:46:00, Duration: 30 day, Stop date: 05/31/15 15:45:00 Notes: (Same as: Zofran) Start Date: 05/01/15 Stop Date: 05/03/15 Status: DiscontinuedPepcid 20 mg oral tablet 20 mg=1 tab, PO, Q12H, # 60 tab, 0 Refill(s) Start Date: 05/03/15 Status: OrderedPepcid 20 mg oral tablet 20 mg, 1 tab, Route: PO, Drug form: TAB, Q12H, Dosing Weight 99.545, kg, Priority: NOW, Start date: 05/01/15 16:53:00, Duration: 30 day, Stop date: 05/31 9:00:00 Notes: (Same as: Pepcid) Start Date: 05/01/15 Stop Date: 05/03/15 Status: DiscontinuedPrinivil 20 mg, 1 tab, Route: PO, Drug form: TAB, Daily, Start date: 05/02/15 9:00:00, Duration: 30 day, Stopdate: 05/31/15 9:00:00 Notes: (Same as: Prinivil, Zestril) Start Date: 05/02/15 Stop Date: 05/03/15 Status: Discontinuedremove patch Route: TOP, Drug form: MISC, Q24H, Start date: 05/02/15 0:00:00, Duration: 30 day, Stop date: 05/31/15 0:00:00 Start Date: 05/02/15 Stop Date: 05/03/15 Status: DiscontinuedSaline Flush 0.9% 10 mL, Route: IVP, Drug Form: INJ, Dosing Weight 99.545, kg, PRN, PRN Line Flush , Start date: 05/01/15 11:18:00, Duration: 30 day, Stop date: 05/31/15 11:17:00 Notes: (Same as: BD Posiflush) Start Date: 05/01/15 Stop Date: 05/01/15 Status: DiscontinuedSaline Flush 0.9% 10 ml, Route: IVP, Drug Form: INJ, Dosing Weight 99.545, kg, Q12H, Start date: 05/01/15 21:00:00, Duration: 30 day, Stop date: 05/31/15 9:00:00 Notes: Same as: BD Posiflush Sterile Start Date: 05/01/15 Stop Date: 05/03/15 Status: DiscontinuedSaline Flush 0.9% 10 ml, Route: IVP, Drug Form: INJ, Dosing Weight 99.545, kg, PRN, PRN Line Flush , Start date: 05/01/15 15:46:00, Duration: 30 day, Stop date: 05/31/15 15:45:00 Start Date: 05/01/15 Stop Date: 05/01/15 Status: DeletedSodium Chloride 0.9% (Bolus) IV 1,000 mL, Infuse Over: 1 hr, Route: IV, ONCE, Priority: STAT, Dosing Weight 99.545 kg, Start date: 05/01/15 11:18:00, Duration: 1 doses or times, Stop date : 05/01/15 11:18:00 Start Date: 05/01/15 Stop Date: 05/01/15 Status: CompletedSodium Chloride 0.9% IV 1,000 mL 1,000 mL, Rate: 125 ml/hr, Infuse over: 8 hr, Route: IV, Dosing Weight 99.545 kg , Total Volume: 1,000, Priority: STAT, Start date: 05/01/15 11:18:00, Duration: 1 doses or times, Stop date: 05/01/15 19:17:00 Start Date: 05/01/15 Stop Date: 05/01/15 Status: DiscontinuedZyPREXA 10 mg, 1 tab, Route: PO, Drug form: TAB, Bedtime, Dosing Weight 99.545, kg, Start date: 05/01/15 21:00:00, Duration: 30 day, Stop date: 05/30/15 21:00:00 Notes: (Same as: ZyPREXA) Start Date: 05/01/15 Stop Date: 05/03/15 Status: Discontinued Results ELECTROLYTES Most recent to oldest [Reference Range]: 1 2 3 Sodium Lvl [135-145 mEq/L] 129 mEq/L *LOW* (05/01/15 11:25 AM) Potassium Lvl [3.5-5.1 mEq/L] 3.4 mEq/L *LOW* (05/01/15 11:25 AM) Chloride Lvl [95-109 mEq/L] 93 mEq/L *LOW* (05/01/15 11:25 AM) CO2 [24-32 mEq/L] 25 mEq/L (05/01/15 11:25 AM) AGAP [10.0-20.0 mEq/L] 14.4 mEq/L (05/01/15 11:25 AM) CHEM PANEL Most recent to oldest [Reference Range]: 1 2 3 Creatinine Lvl [0.50-1.40 mg/dL] 1.02 mg/dL (05/01/15 11:25 AM) eGFR 76 mL/min/1.73m2 1 *NA* (05/01/15 11:25 AM) BUN [7-22 mg/dL] 8 mg/dL (05/01/15 11:25 AM) B/C Ratio [6-25] 8 (05/01/15 11:25 AM) Glucose Lvl [70-99 mg/dL] 402 mg/dL 2 *CRIT* (05/01/15 11:25 AM) Total Protein [6.4-8.4 g/dL] 8.9 g/dL *HI* (05/01/15 11:25 AM) Albumin Lvl [3.5-5.0 g/dL] 4.1 g/dL (05/01/15 11:25 AM) Globulin [2.0-4.0 g/dL] 4.8 g/dL *HI* (05/01/15 11:25 AM) A/G Ratio [0.7-1.6] 0.9 (05/01/15 11:25 AM) Calcium Lvl [8.5-10.5 mg/dL] 9.7 mg/dL (05/01/15 11:25 AM) Magnesium Lvl [1.8-2.4 mg/dL] 1.9 mg/dL (05/01/15 7:17 PM) ALT [0-65 unit/L] 47 unit/L (05/01/15 11:25 AM) AST [0-37 unit/L] 33 unit/L (05/01/15 11:25 AM) Alk Phos [39-136 unit/L] 109 unit/L (05/01/15 11:25 AM) Bili Total [0.2-1.3 mg/dL] 0.5 mg/dL (05/01/15 11:25 AM) Lipase Lvl [73-393 unit/L] 104 unit/L (05/01/15 11:25 AM) Ketone Quantitative [<=0.27 mmol/L] 0.78 mmol/L *HI* (05/01/15 11:25 AM) 1Result Comment: The eGFR is calculated [...] estimated BMI.2Result Comment: Critical Result(s) called to elias muhammad at 05/01/2015 12:03 byew. Read back OK.CARDIAC ENZYMES Most recent to oldest 1 2 3 [Reference Range]: Total CK [12-191 unit/L] 129 unit/L 147 unit/L 212 unit/L (05/02/15 1:42 AM) (05/01/15 7:17 PM) *HI* (05/01/15 11:25 AM) CK MB [0.5-3.6 ng/mL] 0.7 ng/mL 0.6 ng/mL 0.7 ng/mL (05/02/15 1:42 AM) (05/01/15 7:17 PM) (05/01/15 11:25 AM) CK MB Index [0.0-2.5] 0.5 0.4 0.3 (05/02/15 1:42 AM) (05/01/15 7:17 PM) (05/01/15 11:25 AM) Troponin-I [0.00-0.40 ng/mL] <0.02 ng/mL <0.02 ng/mL <0.02 ng/mL (05/02/15 1:42 AM) (05/01/15 7:17 PM) (05/01/15 11:25 AM) BNP [<=100 pg/mL] <0 pg/mL (05/01/15 11:25 AM) LIPIDS Most recent to oldest [Reference Range]: 1 2 3 CHD Risk [3.90-5.80] 9.33 *HI* (05/02/15 1:42 AM) Chol [<=199 mg/dL] 196 mg/dL (05/02/15 1:42 AM) Trig [<=149 mg/dL] 951 mg/dL *HI* (05/02/15 1:42 AM) HDL [>=61 mg/dL] 21 mg/dL *LOW* (05/02/15 1:42 AM) LDL (Calculated) [<=99 mg/dL] See Note mg/dL 1 *NA* (05/02/15 1:42 AM) VLDL See Note 2 *NA* (05/02/15 1:42 AM) 1Result Comment: LDL cholesterol cannot be calculated due to very high triglycerides (>400 mg/dL). Recommend Direct LDL if clinically indicated.2Result Comment: VLDL - Cholesterol level cannot be accurately calculated due to very high triglycerides (>400 mg/dL).URINE AND STOOL Most recent to oldest [Reference Range]: 1 2 3 UA Turbidity [Clear] Clear (05/01/15 1:20 PM) UA Color Ltyellow *NA* (05/01/15 1:20 PM) UA pH [5.0-8.0] 8.0 (05/01/15 1:20 PM) UA Spec Grav [<=1.030] 1.014 (05/01/15 1:20 PM) UA Glucose [Negative mg/dL] 500 mg/dL *ABN* (05/01/15 1:20 PM) UA Blood [Negative] Negative (05/01/15 1:20 PM) UA Ketones [Negative mg/dL] Trace mg/dL *ABN* (05/01/15 1:20 PM) UA Protein [Negative mg/dL] Negative mg/dL (05/01/15 1:20 PM) UA Urobilinogen [0.1-1.0 mg/dL] <=1.0 mg/dL *NA* (05/01/15 1:20 PM) UA Bili [Negative] Negative *NA* (05/01/15 1:20 PM) UA Leuk Est [Negative] Negative (05/01/15 1:20 PM) UA Nitrite [Negative] Negative (05/01/15 1:20 PM) UA WBC [0-5 /HPF] 1 /HPF (05/01/15 1:20 PM) UA RBC [0-2 /HPF] 1 /HPF (05/01/15 1:20 PM) UA Sq Epi [Few /LPF] Occasional /LPF *NA* (05/01/15 1:20 PM) HEMATOLOGY Most recent to oldest [Reference Range]: 1 2 3 WBC [3.7-10.4 K/CMM] 9.9 K/CMM (05/01/15 11:25 AM) RBC [4.20-5.40 M/CMM] 4.77 M/CMM (05/01/15 11:25 AM) Hgb [12.0-16.0 g/dL] 14.2 g/dL (05/01/15 11:25 AM) Hct [36.0-48.0 %] 43.7 % (05/01/15 11:25 AM) MCV [80.0-98.0 fL] 91.7 fL (05/01/15 11:25 AM) MCH [27.0-31.0 pg] 29.7 pg (05/01/15 11:25 AM) MCHC [32.0-36.0 g/dL] 32.4 g/dL (05/01/15 11:25 AM) RDW [11.5-14.5 %] 12.9 % (05/01/15 11:25 AM) Platelet [133-450 K/CMM] 295 K/CMM (05/01/15 11:25 AM) MPV [7.4-10.4 fL] 10.8 fL *HI* (05/01/15 11:25 AM) Segs [45.0-75.0 %] 62.5 % (05/01/15 11:25 AM) Lymphocytes [20.0-40.0 %] 28.8 % (05/01/15 11:25 AM) Monocytes [2.0-12.0 %] 5.8 % (05/01/15 11:25 AM) Eosinophils [0.0-4.0 %] 1.5 % (05/01/15 11:25 AM) Basophils [0.0-1.0 %] 1.4 % *HI* (05/01/15 11:25 AM) Segs-Bands # [1.5-8.1 K/CMM] 6.2 K/CMM (05/01/15 11:25 AM) Lymphocytes # [1.0-5.5 K/CMM] 2.9 K/CMM (05/01/15 11:25 AM) Monocytes # [0.0-0.8 K/CMM] 0.6 K/CMM (05/01/15 11:25 AM) Eosinophils # [0.0-0.5 K/CMM] 0.2 K/CMM (05/01/15 11:25 AM) Basophils # [0.0-0.2 K/CMM] 0.1 K/CMM (05/01/15 11:25 AM) PT [12.0-14.7 seconds] 12.8 seconds (05/01/15 11:25 AM) INR [0.85-1.17] 0.93 (05/01/15 11:25 AM) PTT [22.9-35.8 seconds] 24.0 seconds (05/01/15 11:25 AM) Immunizations Vaccine Date Refusal Reason pneumococcal [...] No. Alcohol Never Smoking Status Never smoker; Type: Cigarettes; Lives with someone who smokes; Cigarette Smoking Last 365 Days No; Reg Smoking Cessation Counseling No Assessment and Plan Extracted from: Title: Clinical Document Author: Davin Farmer DO Date: 05/02/15 Progress Daily [facility] SUBJECTIVE Pt is still c/o left [...] <0.02 (MAY 02) <0.02 (MAY 01) <0.02 (MAY 01) CK MB 0.7 (MAY 02) 0.6 (MAY 01) 0.7 (MAY 01) Total CK 129 (MAY 02) 147 (MAY 01) H 212 (MAY 01) Input/Output Record In Out Bal 05/01 24hr Tot 3010 0 3010 04/30 24hr Tot 0 0 0 ASSESSMENT & EXAM Gen. Pt is AOX4 in no acute distress HEET: Normocephalic, nontraumatic. NECK: Supple, no JVD or Lymphadenopathy LUNGS: Clear on auscultation B/l with no wheezing or crackles HEART: S1, S2.RRR with no murmurs ABDOMEN: Soft, NT/ND with good BS CENTRAL NERVOUS SYSTEM: Patient moving all extremities grossly well. LOWER EXTREMITIES: No C/C/E PLAN & TREATMENT Pt admitted with atypical chest pain -Appreciated cardiology consult -Will start on Gemfibrozil for elevated lipids -Blood glucose remains elevated -Will increase insuline DIAGNOSES & PROBLEMS Atypical chest pain HLD HTN DM [...] in Water IV (Dextrose 50% Syringe), acetaminophen-hydrocodone ([place] 5/325 oral tablet), atropine, glucagon, insulin aspart, [...]
--- OUTSIDE RECORDS SUMMARY | 2018-12-17 19:00 | XMS REPORT | Summary of Care ---
:[address] [facility] Address [address] [address], [place] [address]- Encounter HQ Gilberto(NATALIE) [id number] Date(s): 08/16/15 - 08/17/15 [facility] [address] [place] [address]- Discharge Disposition: Home Attending Physician: Francesca Ordoñez MD Admitting Physician: Francesca Ordoñez MD Vital Signs Most recent to oldest 1 2 3 [Reference Range]: Height 165.1 cm 165.1 cm (08/16/15 8:28 PM) (08/16/15 3:41 PM) Temperature Oral [96.4-99.1 98.7 DegF 97.9 DegF 98 DegF DegF] (08/17/15 10:41 AM) (08/17/15 7:02 AM) (08/17/15 4:31 AM) Blood Pressure [90-140/60-90 109/69 mmHg 116/77 mmHg 116/70 mmHg mmHg] (08/17/15 10:41 AM) (08/17/15 7:02 AM) (08/17/15 4:31 AM) Respiratory Rate [14-20 BRMIN] 16 BRMIN 18 BRMIN 18 BRMIN (08/17/15 10:41 AM) (08/17/15 7:02 AM) (08/17/15 4:31 AM) Peripheral Pulse Rate [60-100 54 bpm 59 bpm 56 bpm bpm] *LOW* *LOW* *LOW* (08/17/15 10:41 AM) (08/17/15 7:02 AM) (08/17/15 4:31 AM) Weight 100 kg 100 kg (08/16/15 8:28 PM) (08/16/15 3:41 PM) Body Mass Index 36.69 m2 36.69 m2 (08/16/15 8:28 PM) (08/16/15 3:41 PM) Problem List Condition Effective Dates Status Health Status Informant CAD - Coronary artery Resolved disease(Confirmed) Chronic pain syndrome1 02/07/14 Active DM - Diabetes mellitus(Confirmed) Active FH: Diabetes mellitus2 12/17/13 Active HTN - Hypertension(Confirmed) Active Hyperlipidemia(Confirmed) Active Insertion of coronary artery Resolved stent(Confirmed)3 Stroke(Confirmed) Active Stroke(Confirmed) Resolved 1Data migrated from [employer] on 12/16/14.2Data migrated from [employer] on 12/16/14.3x 2- May 2015 Allergies, Adverse Reactions, Alerts Substance Reaction Severity Status NKDA Active Medications aspirin 324 mg, 4 tab, Route: PO, Drug form: CHEWTAB, ONCE, Dosing Weight 100, kg, Priority: STAT, Start date: 08/16/15 15:57:00 CDT, Stop date: 08/16/15 15:57:00 CDT Notes: Take with food. Start Date: 08/16/15 Stop Date: 08/16/15 Status: Completedaspirin 81 mg tablet, enteric coated 81 mg, 1 tab, Route: PO, Drug form: ECTAB, Daily, Dosing Weight 100, kg, Start date: 08/17/15 12:00:00 CDT, Duration: 30 day, Stop date: 09/16/15 9:00:00 CDT Notes: Do not crush or chew.(Same As: Ecotrin) Start Date: 08/17/15 Stop Date: 08/17/15 Status: Discontinuedatropine 0.5 mg, 5 mL, Route: IVP, Drug form: INJ, PRN, PRN Bradycardia, Start date: 22:09:00 CDT, Duration: 30 day, Stop date: 09/15/15 22:08:00 CDT Start Date: 08/16/15 Stop Date: 08/17/15 Status: Discontinuedesomeprazole 40 mg oral delayed release capsule 40 mg=1 cap, PO, Daily, # 30 cap, 1 Refill(s) Start Date: 08/17/15 Status: Orderedgemfibrozil 600 mg, 1 tab, Route: PO, Drug form: TAB, BID, Dosing Weight 100, kg, Start date : 08/17/15 17:00:00 CDT, Duration: 30 day, Stop date: 09/16/15 9:00:00 CDT Notes: (Same as: Lopid) Start Date: 08/17/15 Stop Date: 08/17/15 Status: Canceledgemfibrozil 600 mg oral tablet 600 mg=1 tab, PO, BID, 0 Refill(s) Start Date: 08/16/15 Status: Orderedhydrochlorothiazide 25 mg oral tablet 25 mg, 1 tab, Route: PO, Drug form: TAB, Daily, Start date: 08/18/15 9:00:00 CDT , Duration: 30 day, Stop date: 09/16/15 9:00:00 CDT Notes: (Same as: Hydrodiuril) With food. Start Date: 08/18/15 Stop Date: 08/17/15 Status: Canceledhydrochlorothiazide-lisinopril 25 mg-20 mg oral tablet 1 tab, Route: PO, Drug Form: TAB, Dosing Weight 100, kg, Daily, Start date: 9:00:00 CDT, Duration: 30 day, Stop date: 09/16/15 9:00:00 CDT Start Date: 08/18/15 Stop Date: 08/17/15 Status: Deletedhydrochlorothiazide-lisinopril 25 mg-20 mg oral tablet 1 tab, PO, Daily, 0 Refill(s) Start Date: 08/16/15 Status: OrderedImdur 120 mg, 2 tab, Route: PO, Drug form: ERTAB, QAM, Dosing Weight 100, kg, Start date: 08/18/15 9:00:00CDT, Duration: 30 day, Stop date: 09/16/15 9:00:00 CDT Notes: (Same as:Imdur)"Do Not Crush" Take on empty stomach/ full glass of water. Do not crush Start Date: 08/18/15 Stop Date: 08/17/15 Status: CanceledImdur 60 mg oral tablet, extended release 120 mg=2 tab, PO, QAM, 0 Refill(s) Start Date: 08/16/15 Status: Orderedinsulin aspart 10 unit, 0.1 mL, Route: SUB-Q, Drug form: SOLN, ONCE, Dosing Weight 100, kg, Priority: STAT, Start date: 08/16/15 15:57:00 CDT, Stop date: 08/16/15 15:57:00 CDT Notes: Roll in palms of hands gently; Do not shake vigorously. (Same as: NovoLOG)"single patient use only"WASTE: F/P - Black; E - Municipal Trash Bin Stable for 28 days at room temperature.Expires in days from Date Start Date: 08/16/15 Stop Date: 08/16/15 Status: CompletedInsulin regular 5 unit, 0.05 mL, Route: IV, Drug form: INJ, ONCE, Dosing Weight 100, kg, Priority: NOW, Start date: 08/17/15 13:12:00 CDT, Stop date: 08/17/15 13:12:00 CDT Notes: (Same as: Humulin R and NovoLIN R)WASTE: F/P - Black; E - Municipal Trash Bin (Do not shake) Start Date: 08/17/15 Stop Date: 08/17/15 Status: CompletedLasix 20 mg oral tablet 20 mg, 1 tab, Route: PO, Drug form: TAB, Daily, Dosing Weight 100, kg, Start date: 08/18/15 9:00:00 CDT, Duration: 30 day, Stop date: 09/16/15 9:00:00 CDT Notes: (Same as: Lasix) May cause GI upset. Give with food or milk. Start Date: 08/18/15 Stop Date: 08/17/15 Status: CanceledLasix 20 mg oral tablet 20 mg=1 tab, PO, Daily, 0 Refill(s) Start Date: 08/16/15 Status: OrderedLevemir 10 unit, 0.1 mL, Route: SUB-Q, Drug form: INJ, ONCE, Dosing Weight 100, kg, Priority: NOW, Start date: 08/17/15 13:12:00 CDT, Stop date: 08/17/15 13:12:00 CDT, Patient's Own Meds Notes: Same as LevemirDo not hold insulin without contacting prescriberWASTE: F/ P - Black; E - Municipal Trash Bin "single patient use only" Start Date: 08/17/15 Stop Date: 08/17/15 Status: CompletedLevemir FlexPen 30 unit, 0.3 mL, Route: SUB-Q, Drug form: INJ, Bedtime, Dosing Weight 100, kg, Start date: 08/17/15 21:00:00 CDT, Duration: 30 day, Stop date: 09/15/15 21:00: 00 CDT Notes: Same as LevemirDo not hold insulin without contacting prescriberWASTE: F/ P - Black; E - Municipal Trash Bin "single patient use only" Start Date: 08/17/15 Stop Date: 08/17/15 Status: CanceledLevemir FlexPen 100 units/mL subcutaneous solution 30 unit, SUB-Q, Bedtime, 0 Refill(s) Start Date: 08/16/15 Status: OrderedLipitor 80 mg, 2 tab, Route: PO, Drug form: TAB, Bedtime, Dosing Weight 100, kg, Start date: 08/17/15 21:00:00 CDT, Duration: 30 day, Stop date: 09/15/15 21:00:00 CDT Notes: (Same as: Lipitor) Start Date: 08/17/15 Stop Date: 08/17/15 Status: CanceledLipitor 80 mg oral tablet 80 mg=1 tab, PO, Bedtime, 0 Refill(s) Start Date: 08/16/15 Status: OrderedmetFORMIN 500 mg oral tablet 1,000 mg, 2 tab, Route: PO, Drug form: TAB, BID-Meals, Dosing Weight 100, kg, Start date: 08/17/15 17:00:00 CDT, Duration: 30 day, Stop date: 09/16/15 8:00: 00 CDT Notes: (Same as: Glucophage) Take with meal Start Date: 08/17/15 Stop Date: 08/17/15 Status: Canceledmorphine Sulfate 4 mg, 2 mL, Route: IVP, Drug form: INJ, ONCE, Dosing Weight 100, kg, Priority: STAT, Start date: 08/16/15 18:14:00 CDT, Stop date: 08/16/15 18:14:00 CDT Notes: (Same as:MORPhine Sulfate) Start Date: 08/16/15 Stop Date: 08/16/15 Status: Completedmorphine Sulfate 2 mg, 1 mL, Route: IVP, Drug form: INJ, Q15Min, Dosing Weight 100, kg, PRN Chest Pain, Start date: 08/16/15 19:43:00 CDT, Duration: 2 doses or times, Stop date: Limited # of times Notes: (Same as:MORPhine Sulfate) Start Date: 08/16/15 Stop Date: 08/17/15 Status: Discontinuedmorphine Sulfate 4 mg, 2 mL, Route: IVP, Drug form: INJ, Q2H, Dosing Weight 100, kg, PRN Pain Score 7-10, Start date:08/16/15 19:43:00 CDT, Duration: 30 day, Stop date: 09/14 19:42:00 CDT Notes: (Same as:MORPhine Sulfate) Start Date: 08/16/15 Stop Date: 08/17/15 Status: Discontinuedmorphine Sulfate 4 mg, 2 mL, Route: IVP, Drug form: INJ, ONCE, Dosing Weight 100, kg, Priority: STAT, Start date: 08/16/15 15:57:00 CDT, Stop date: 08/16/15 15:57:00 CDT Notes: (Same as:MORPhine Sulfate) Start Date: 08/16/15 Stop Date: 08/16/15 Status: Completednitroglycerin SL Tab 0.4 mg, 1 tab, Route: SL, Drug form: TAB, Q5Min, Dosing Weight 100, kg, PRN Chest Pain, Start date: 08/16/15 19:43:00 CDT, Duration: 3 doses or times, Stop date: Limited # of times Notes: (Same as:Nitroquick, Nitrostat)"Do Not Crush" Sublingual tablet Start Date: 08/16/15 Stop Date: 08/17/15 Status: DiscontinuedNitrostat 0.4 mg sublingual tablet 0.4 mg, 1 tab, Route: SL, Drug form: TAB, Q5Min, Dosing Weight 100, kg, PRN Chest Pain, Start date: 08/17/15 10:20:00 CDT, Duration: 30 day, Stop date: 10:19:00 CDT Notes: (Same as:Nitroquick, Nitrostat)"Do Not Crush" Sublingual tablet Start Date: 08/17/15 Stop Date: 08/17/15 Status: DiscontinuedNitrostat 0.4 mg sublingual tablet 0.4 mg=1 tab, SL, Q5Min, PRN as needed for chest pain, 0 Refill(s) Start Date: 08/16/15 Status: OrderedNovoLOG FlexPen 30 unit, 0.3 mL, Route: SUB-Q, Drug form: SOLN, TID-Before Meals, Dosing Weight 100, kg, Start date:08/17/15 11:50:00 CDT, Duration: 30 day, Stop date: 7:50:00 CDT Notes: Roll in palms of hands gently; Do not shake vigorously. (Same as: NovoLOG)"single patient use only"WASTE: F/P - Black; E - Municipal Trash Bin Stable for 28 days at room temperature.Expires in days from Date Start Date: 08/17/15 Stop Date: 08/17/15 Status: DiscontinuedNovoLOG FlexPen 100 units/mL subcutaneous solution 30 unit, SUB-Q, TID-Before Meals, 0 Refill(s) Start Date: 08/16/15 Status: OrderedPlavix 75 mg, 1 tab, Route: PO, Drug form: TAB, Daily, Dosing Weight 100, kg, Start date: 08/18/15 9:00:00 CDT, Duration: 30 day, Stop date: 09/16/15 9:00:00 CDT Notes: (Same As: Plavix) Start Date: 08/18/15 Stop Date: 08/17/15 Status: CanceledPlavix 75 mg oral tablet 75 mg=1 tab, PO, Daily, 0 Refill(s) Start Date: 08/16/15 Status: Orderedpotassium chloride 40 mEq, 2 tab, Route: PO, Drug form: ERTAB, ONCE, Dosing Weight 100, kg, Priority: STAT, Start date:08/16/15 17:21:00 CDT, Stop date: 08/16/15 17:21:00 CDT Notes: (Same as: K-Dur 20)"Do Not Crush" With food and full glass of water Start Date: 08/16/15 Stop Date: 08/16/15 Status: CompletedPrinivil 20 mg, 1 tab, Route: PO, Drug form: TAB, Daily, Start date: 08/18/15 9:00:00 CDT , Duration: 30 day, Stop date: 09/16/15 9:00:00 CDT Notes: (Same as: Prinivil, Zestril) Start Date: 08/18/15 Stop Date: 08/17/15 Status: CanceledPROzac 40 mg, 2 cap, Route: PO, Drug form: CAP, QPM, Dosing Weight 100, kg, Start date : 08/17/15 17:00:00 CDT, Duration: 30 day, Stop date: 09/15/15 17:00:00 CDT Notes: (Same as: Prozac, Sarafem) Start Date: 08/17/15 Stop Date: 08/17/15 Status: CanceledRobaxin-750 oral tablet 1,500 mg=2 tab, PO, TID, PRN Muscle Spasms, 0 Refill(s) Start Date: 08/16/15 Stop Date: 08/17/15 Status: DiscontinuedSaline Flush 0.9% 10 ml, Route: IVP, Drug Form: INJ, Dosing Weight 100, kg, PRN, PRN Line Flush, Start date: 08/16/15 19:43:00 CDT, Duration: 30 day, Stop date: 09/15/15 19:42: 00 CDT Notes: (Same as: BD Posiflush) Start Date: 08/16/15 Stop Date: 08/17/15 Status: DiscontinuedSaline Flush 0.9% 10 ml, Route: IVP, Drug Form: INJ, Dosing Weight 100, kg, Q12H, Start date: 21:00:00 CDT, Duration: 30 day, Stop date: 09/15/15 9:00:00 CDT Notes: (Same as: BD Posiflush) Start Date: 08/16/15 Stop Date: 08/17/15 Status: DiscontinuedSaline Flush 0.9% 10 mL, Route: IVP, Drug Form: INJ, Dosing Weight 100, kg, PRN, PRN Line Flush, Start date: 08/16/15 15:57:00 CDT, Duration: 30 day, Stop date: 09/15/15 15:56: 00 CDT Notes: (Same as: BD Posiflush) Start Date: 08/16/15 Stop Date: 08/16/15 Status: DiscontinuedSodium Chloride 0.9% (Bolus) IV 1,000 mL, 1000 ml/hr, Infuse Over: 1 hr, Route: IV, 1,000, Drug form: INJ, ONCE , Priority: STAT, Dosing Weight 100 kg, Start date: 08/16/15 15:57:00 CDT, Duration: 1 doses or times, Stop date: 08/15/1614:57:00 CDT Start Date: 08/16/15 Stop Date: 08/16/15 Status: CompletedToprol-XL 25 mg oral tablet, extended release 25 mg, 1 tab, Route: PO, Drug form: ERTAB, Daily, Start date: 08/17/15 17:00:00 CDT, Duration: 30 day, Stop date: 09/15/15 17:00:00 CDT Notes: (Same as: Toprol XL) Do Not Crush Start Date: 08/17/15 Stop Date: 08/17/15 Status: CanceledToprol-XL 25 mg oral tablet, extended release 25 mg=1 tab, PO, Daily, 0 Refill(s) Start Date: 08/16/15 Status: OrderedZyPREXA 10 mg, 1 tab, Route: PO, Drug form: TAB, Daily, Dosing Weight 100, kg, Start date: 08/18/15 9:00:00 CDT, Duration: 30 day, Stop date: 09/16/15 9:00:00 CDT Notes: (Same as: ZyPREXA) Start Date: 08/18/15 Stop Date: 08/17/15 Status: Canceled Results ELECTROLYTES Most recent to oldest [Reference Range]: 1 2 3 Sodium Lvl [135-145 mEq/L] 134 mEq/L *LOW* (08/16/15 4:12 PM) Potassium Lvl [3.5-5.1 mEq/L] 3.7 mEq/L (08/16/15 4:12 PM) Chloride Lvl [95-109 mEq/L] 98 mEq/L (08/16/15 4:12 PM) CO2 [24-32 mEq/L] 28 mEq/L (08/16/15 4:12 PM) AGAP [10.0-20.0 mEq/L] 11.7 mEq/L (08/16/15 4:12 PM) CHEM PANEL Most recent to oldest [Reference Range]: 1 2 3 Creatinine Lvl [0.50-1.40 mg/dL] 0.94 mg/dL (08/16/15 4:12 PM) eGFR 84 mL/min/1.73m2 1 *NA* (08/16/15 4:12 PM) BUN [7-22 mg/dL] 10 mg/dL (08/16/15 4:12 PM) B/C Ratio [6-25] 11 (08/16/15 4:12 PM) Glucose Lvl [70-99 mg/dL] 362 mg/dL *HI* (08/16/15 4:12 PM) Total Protein [6.4-8.4 g/dL] 7.8 g/dL (08/16/15 4:12 PM) Albumin Lvl [3.5-5.0 g/dL] 3.7 g/dL (08/16/15 4:12 PM) Globulin [2.0-4.0 g/dL] 4.1 g/dL *HI* (08/16/15 4:12 PM) A/G Ratio [0.7-1.6] 0.9 (08/16/15 4:12 PM) Calcium Lvl [8.5-10.5 mg/dL] 8.6 mg/dL (08/16/15 4:12 PM) Magnesium Lvl [1.8-2.4 mg/dL] 2.1 mg/dL (08/16/15 4:12 PM) ALT [0-65 unit/L] 32 unit/L (08/16/15 4:12 PM) AST [0-37 unit/L] 20 unit/L (08/16/15 4:12 PM) Alk Phos [39-136 unit/L] 93 unit/L (08/16/15 4:12 PM) Bili Total [0.2-1.3 mg/dL] 0.3 mg/dL (08/16/15 4:12 PM) Lipase Lvl [73-393 unit/L] 354 unit/L (08/16/15 4:12 PM) 1Result Comment: The eGFR is calculated [...] Range]: Total CK [12-191 unit/L] 73 unit/L 92 unit/L 117 unit/L (08/17/15 4:35 AM) (08/16/15 10:24 PM) (08/16/15 4:12 PM) CK MB [0.5-3.6 ng/mL] <0.5 ng/mL <0.5 ng/mL (08/16/15 10:24 PM) (08/16/15 4:12 PM) CK MB Index [0.0-2.5] <0.5 <0.4 (08/16/15 10:24 PM) (08/16/15 4:12 PM) Troponin-I [0.00-0.40 ng/mL] <0.02 ng/mL <0.02 ng/mL <0.02 ng/mL (08/17/15 4:35 AM) (08/16/15 10:24 PM) (08/16/15 4:12 PM) LIPIDS Most recent to oldest [Reference Range]: 1 2 3 CHD Risk [3.90-5.80] 6.45 *HI* (08/17/15 10:40 AM) Chol [<=199 mg/dL] 213 mg/dL *HI* (08/17/15 10:40 AM) Trig [<=149 mg/dL] 442 mg/dL *HI* (08/17/15 10:40 AM) HDL [>=61 mg/dL] 33 mg/dL *LOW* (08/17/15 10:40 AM) LDL (Calculated) [<=99 mg/dL] See Note mg/dL 1 *NA* (08/17/15 10:40 AM) VLDL See Note 2 *NA* (08/17/15 10:40 AM) 1Result Comment: LDL cholesterol cannot be calculated due to very high triglycerides (>400 mg/dL). Recommend Direct LDL if clinically indicated.2Result Comment: VLDL - Cholesterol level cannot be accurately calculated due to very high triglycerides (>400 mg/dL).SPECIAL CHEMISTRY Most recent to oldest [Reference Range]: 1 2 3 Hgb A1C [<=5.6 %] >16.0 % (08/17/15 10:40 AM) ENDOCRINOLOGY Most recent to oldest [Reference Range]: 1 2 3 S Preg [Negative] Negative *NA* (08/16/15 4:12 PM) HEMATOLOGY Most recent to oldest [Reference Range]: 1 2 3 WBC [3.7-10.4 K/CMM] 7.6 K/CMM (08/16/15 4:12 PM) RBC [4.20-5.40 M/CMM] 4.03 M/CMM *LOW* (08/16/15 4:12 PM) Hgb [12.0-16.0 g/dL] 12.3 g/dL (08/16/15 4:12 PM) Hct [36.0-48.0 %] 36.1 % (08/16/15 4:12 PM) MCV [80.0-98.0 fL] 89.5 fL (08/16/15 4:12 PM) MCH [27.0-31.0 pg] 30.5 pg (08/16/15 4:12 PM) MCHC [32.0-36.0 g/dL] 34.1 g/dL (08/16/15 4:12 PM) RDW [11.5-14.5 %] 13.4 % (08/16/15 4:12 PM) Platelet [133-450 K/CMM] 283 K/CMM (08/16/15 4:12 PM) MPV [7.4-10.4 fL] 10.9 fL *HI* (08/16/15 4:12 PM) Segs [45.0-75.0 %] 56.9 % (08/16/15 4:12 PM) Lymphocytes [20.0-40.0 %] 31.2 % (08/16/15 4:12 PM) Monocytes [2.0-12.0 %] 7.7 % (08/16/15 4:12 PM) Eosinophils [0.0-4.0 %] 3.2 % (08/16/15 4:12 PM) Basophils [0.0-1.0 %] 1.0 % (08/16/15 4:12 PM) Segs-Bands # [1.5-8.1 K/CMM] 4.3 K/CMM (08/16/15 4:12 PM) Lymphocytes # [1.0-5.5 K/CMM] 2.4 K/CMM (08/16/15 4:12 PM) Monocytes # [0.0-0.8 K/CMM] 0.6 K/CMM (08/16/15 4:12 PM) Eosinophils # [0.0-0.5 K/CMM] 0.2 K/CMM (08/16/15 4:12 PM) Basophils # [0.0-0.2 K/CMM] 0.1 K/CMM (08/16/15 4:12 PM) PT [12.0-14.7 seconds] 13.2 seconds (08/16/15 4:12 PM) INR [0.85-1.17] 0.97 (08/16/15 4:12 PM) PTT [22.9-35.8 seconds] 25.8 seconds (08/16/15 4:12 PM) Immunizations Vaccine Date Refusal Reason pneumococcal 23-valent vaccine 11/27/13 Procedures Procedure Date Related Diagnosis Body Site Abdominal hysterectomy Cardiac catheterization Cervical discectomy1 section Skin of head and/or neck reconstruction Spinal fusion Stent placement2 Tonsillectomy 1anterior cerivical disectomy fusion on November 27, 20132cardiac x 2 Social History Social History Type Response Substance [...]
--- OUTSIDE RECORDS SUMMARY | 2018-12-17 19:00 | XMS REPORT | Summary of Care ---
:1970 Author Organization [facility] Address [address] [place], [place] [address]- Encounter HQ Daryl_kati(FIN) [id number] Date(s): 08/10/16 - 08/10/16 [facility] [address] [place] [address]- Discharge Diagnosis: Abdominal pain, acute Discharge Disposition: Home or Self Care Attending Physician: Matteo Vee MD Vital Signs Most recent to oldest [Reference Range]: 1 2 Height 165.1 cm (08/10/16 9:31 AM) Temperature Oral [96.4-99.1 DegF] 98.0 DegF 98.2 DegF (08/10/16 12:47 PM) (08/10/16 9:31 AM) Blood Pressure [90-140/60-90 mmHg] 175/84 mmHg 224/95 mmHg *HI* *HI* (08/10/16 12:47 PM) (08/10/16 9:31 AM) Respiratory Rate [14-20 BRMIN] 20 BRMIN 18 BRMIN (08/10/16 12:47 PM) (08/10/16 9:31 AM) Peripheral Pulse Rate [60-100 bpm] 64 bpm 58 bpm (08/10/16 12:47 PM) *LOW* (08/10/16 9:31 AM) Weight 80.455 kg (08/10/16 9:31 AM) Body Mass Index 29.52 m2 (08/10/16 9:31 AM) Problem List Condition Effective Dates Status Health Status Informant CAD - Coronary artery Resolved disease(Confirmed) Chronic pain syndrome1 02/07/14 Active DM - Diabetes mellitus(Confirmed) Active FH: Diabetes mellitus2 12/17/13 Active HTN - Hypertension(Confirmed) Active Hyperlipidemia(Confirmed) Active Insertion of coronary artery Resolved stent(Confirmed)3 Stroke(Confirmed) Active Stroke(Confirmed) Resolved 1Data migrated from [employer] on 12/16/14.2Data migrated from [employer] on 12/16/14.3x 2- May 2015 Allergies, Adverse Reactions, Alerts Substance Reaction Severity Status NKDA Active Medications famotidine 20 mg, Route: IVP, ONCE, Dosing Weight 80.455, kg, Priority: STAT, Start date: 08/10/16 10:48:00 CDT, Stop date: 08/10/16 10:48:00 CDT Start Date: 08/10/16 Stop Date: 08/10/16 Status: CompletedGI cocktail 30 mL, Route: PO, Dosing Weight 80.455, kg, ONCE, STAT, Start date: 08/10/16 10: 48:00 CDT, Stop date: 08/10/16 10:48:00 CDT Start Date: 08/10/16 Stop Date: 08/10/16 Status: Completedmorphine Sulfate 4 mg, Route: IVP, ONCE, Dosing Weight 80.455, kg, Priority: STAT, Start date: 10:48:00 CDT,Stop date: 08/10/16 10:48:00 CDT Start Date: 08/10/16 Stop Date: 08/10/16 Status: Completedondansetron 4 mg, Route: IVP, ONCE, Dosing Weight 80.455, kg, Priority: STAT, Start date: 10:48:00 CDT,Stop date: 08/10/16 10:48:00 CDT Start Date: 08/10/16 Stop Date: 08/10/16 Status: CompletedSaline Flush 0.9% 10 mL, Route: IVP, Drug Form: INJ, Dosing Weight 80.455, kg, PRN, PRN Line Flush , Start date: 08/10/16 10:48:00 CDT, Duration: 30 day, Stop date: 09/09/16 10:47 :00 CDT Notes: Same as: BD Posiflush Sterile Start Date: 08/10/16 Stop Date: 08/10/16 Status: DiscontinuedSodium Chloride 0.9% (Bolus) IV 1,000 mL, 2,000 ml/hr, Infuse Over: 30 minutes, Route: IV, ONCE, Priority: STAT , Dosing Weight 80.455 kg, Start date: 08/10/16 10:48:00 CDT, Duration: 1 doses or times, Stop date: 08/10/16 10:48:00 CDT Start Date: 08/10/16 Stop Date: 08/10/16 Status: Completed Results ELECTROLYTES Most recent to oldest [Reference Range]: 1 Sodium Lvl [135-145 mEq/L] 138 mEq/L (08/10/16 9:50 AM) Potassium Lvl [3.5-5.1 mEq/L] 3.5 mEq/L (08/10/16 9:50 AM) Chloride Lvl [95-109 mEq/L] 101 mEq/L (08/10/16 9:50 AM) CO2 [24-32 mEq/L] 31 mEq/L (08/10/16 9:50 AM) AGAP [10.0-20.0 mEq/L] 9.5 mEq/L *LOW* (08/10/16 9:50 AM) CHEM PANEL Most recent to oldest [Reference Range]: 1 Creatinine Lvl [0.50-1.40 mg/dL] 0.69 mg/dL (08/10/16 9:50 AM) eGFR 119 mL/min/1.73m2 1 *NA* (08/10/16 9:50 AM) BUN [7-22 mg/dL] 5 mg/dL *LOW* (08/10/16 9:50 AM) B/C Ratio [6-25] 7 (08/10/16 9:50 AM) Glucose Lvl [70-99 mg/dL] 232 mg/dL *HI* (08/10/16 9:50 AM) Total Protein [6.4-8.4 g/dL] 8.1 g/dL (08/10/16 9:50 AM) Albumin Lvl [3.5-5.0 g/dL] 3.9 g/dL (08/10/16 9:50 AM) Globulin [2.7-4.2 g/dL] 4.2 g/dL (08/10/16 9:50 AM) A/G Ratio [0.7-1.6] 0.9 (08/10/16 9:50 AM) Calcium Lvl [8.5-10.5 mg/dL] 9.5 mg/dL (08/10/16 9:50 AM) ALT [0-65 unit/L] 12 unit/L (08/10/16 9:50 AM) AST [0-37 unit/L] 11 unit/L (08/10/16 9:50 AM) Alk Phos [39-136 unit/L] 68 unit/L (08/10/16 9:50 AM) Bili Total [0.2-1.3 mg/dL] 0.4 mg/dL (08/10/16 9:50 AM) Lipase Lvl [73-393 unit/L] 53 unit/L *LOW* (08/10/16 9:50 AM) 1Result Comment: The eGFR is calculated [...] estimated BMI.CARDIAC ENZYMES Most recent to oldest [Reference Range]: 1 Total CK [12-191 unit/L] 87 unit/L (08/10/16 9:50 AM) CK MB [0.5-3.6 ng/mL] <0.5 ng/mL (08/10/16 9:50 AM) CK MB Index [0.0-2.5] <0.6 (08/10/16 9:50 AM) Troponin-I [0.00-0.40 ng/mL] <0.02 ng/mL (08/10/16 9:50 AM) URINE CHEM Most recent to oldest [Reference Range]: 1 U Preg [Negative] Negative (08/10/16 9:50 AM) URINE AND STOOL Most recent to oldest [Reference Range]: 1 UA Turbidity [Clear] Slight *ABN* (08/10/16 9:50 AM) UA Color [Yellow] Yellow *NA* (08/10/16 9:50 AM) UA pH [5.0-8.0] 6.0 (08/10/16 9:50 AM) UA Spec Grav [<=1.030] 1.020 (08/10/16 9:50 AM) UA Glucose [Negative mg/dL] 150 mg/dL *ABN* (08/10/16 9:50 AM) UA Blood [Negative] Negative (08/10/16 9:50 AM) UA Ketones [Negative mg/dL] Negative mg/dL *NA* (08/10/16 9:50 AM) UA Protein [Negative mg/dL] Negative mg/dL (08/10/16 9:50 AM) UA Urobilinogen [0.1-1.0 mg/dL] <=1.0 mg/dL *NA* (08/10/16 9:50 AM) UA Bili [Negative] Negative *NA* (08/10/16 9:50 AM) UA Leuk Est [Negative] Negative (08/10/16 9:50 AM) UA Nitrite [Negative] Negative (08/10/16 9:50 AM) UA WBC [0-5 /HPF] 2 /HPF (08/10/16 9:50 AM) UA RBC [0-2 /HPF] 3 /HPF *HI* (08/10/16 9:50 AM) UA Sq Epi [Few /LPF] Many /LPF *ABN* (08/10/16 9:50 AM) UA Mucus [None Seen /LPF] Few /LPF *NA* (08/10/16 9:50 AM) HEMATOLOGY Most recent to oldest [Reference Range]: 1 WBC [3.7-10.4 K/CMM] 7.2 K/CMM (08/10/16 9:50 AM) RBC [4.20-5.40 M/CMM] 4.79 M/CMM (08/10/16 9:50 AM) Hgb [12.0-16.0 g/dL] 14.2 g/dL (08/10/16 9:50 AM) Hct [36.0-48.0 %] 42.4 % (08/10/16 9:50 AM) MCV [80.0-98.0 fL] 88.4 fL (08/10/16 9:50 AM) MCH [27.0-31.0 pg] 29.7 pg (08/10/16 9:50 AM) MCHC [32.0-36.0 g/dL] 33.6 g/dL (08/10/16 9:50 AM) RDW [11.5-14.5 %] 12.9 % (08/10/16 9:50 AM) Platelet [133-450 K/CMM] 264 K/CMM (08/10/16 9:50 AM) MPV [7.4-10.4 fL] 10.3 fL (08/10/16 9:50 AM) Segs [45.0-75.0 %] 57.8 % (08/10/16 9:50 AM) Lymphocytes [20.0-40.0 %] 32.9 % (08/10/16 9:50 AM) Monocytes [2.0-12.0 %] 6.3 % (08/10/16 9:50 AM) Eosinophils [0.0-4.0 %] 2.1 % (08/10/16 9:50 AM) Basophils [0.0-1.0 %] 0.9 % (08/10/16 9:50 AM) Segs-Bands # [1.5-8.1 K/CMM] 4.2 K/CMM (08/10/16 9:50 AM) Lymphocytes # [1.0-5.5 K/CMM] 2.4 K/CMM (08/10/16 9:50 AM) Monocytes # [0.0-0.8 K/CMM] 0.5 K/CMM (08/10/16 9:50 AM) Eosinophils # [0.0-0.5 K/CMM] 0.1 K/CMM (08/10/16 9:50 AM) Basophils # [0.0-0.2 K/CMM] 0.1 K/CMM (08/10/16 9:50 AM) Immunizations Given and Recorded Vaccine Date Status Refusal Reason pneumococcal 23-valent vaccine 11/27/13 Given Procedures Procedure Date Related Diagnosis Body Site [...]
--- OUTSIDE RECORDS SUMMARY | 2018-12-17 19:00 | XMS REPORT | Summary of Care ---
:1970 Author Organization [facility] Address [address] [place], [place] [address]- Encounter HQ Gilberto(NATALIE) [phone] Date(s): 06/03/15 - 06/06/15 [facility] [address] [place] [address]- [phone] Discharge Disposition: Home Attending Physician: Dian Campos MD Admitting Physician: Dian Campos MD Vital Signs Most recent to oldest 1 2 3 [Reference Range]: Height 165.1 cm (06/03/15 4:45 PM) Temperature Oral [96.4-99.1 97.6 DegF 97.7 DegF 98.1 DegF DegF] (06/06/15 7:46 AM) (06/06/15 4:05 AM) (06/06/15 12:08 AM) Blood Pressure [90-140/60-90 158/97 mmHg 143/90 mmHg 120/74 mmHg mmHg] *HI* *HI* (06/06/15 12:08 AM) (06/06/15 7:46 AM) (06/06/15 4:05 AM) Respiratory Rate [14-20 BRMIN] 18 BRMIN 18 BRMIN 18 BRMIN (06/06/15 7:46 AM) (06/06/15 4:05 AM) (06/06/15 12:08 AM) Peripheral Pulse Rate [60-100 65 bpm 67 bpm 58 bpm bpm] (06/06/15 7:46 AM) (06/06/15 4:05 AM) *LOW* (06/06/15 12:08 AM) Weight 97.727 kg (06/03/15 4:45 PM) Body Mass Index 35.85 m2 (06/03/15 4:45 PM) Problem List Condition Effective Dates Status Health Status Informant Chronic pain syndrome1 02/07/14 Active DM - Diabetes mellitus(Confirmed) Active FH: Diabetes mellitus2 12/17/13 Active HTN - Hypertension(Confirmed) Active Hyperlipidemia(Confirmed) Active Stroke(Confirmed) Active Stroke(Confirmed) Resolved 1Data migrated from [employer] on 12/16/14.2Data migrated from [employer] on 12/16/14. Allergies, Adverse Reactions, Alerts Substance Reaction Severity Status NKDA Active Medications aspirin Route: CHEW, Drug form: CHEWTAB, ONCE, Dosing Weight 97.727, kg, Priority: STAT , Start date: 06/03/15 17:56:00, Stop date: 06/03/15 17:56:00 Start Date: 06/03/15 Stop Date: 06/03/15 Status: Completedaspirin 325 mg tablet 325 mg, 1 tab, Route: PO, Drug form: TAB, ONCE, Dosing Weight 97.727, kg, Start date: 06/05/15 17:46:00, Stop date: 06/05/15 17:46:00 Notes: Take with food. Start Date: 06/05/15 Stop Date: 06/05/15 Status: Completedaspirin 81 mg tablet, enteric coated 81 mg, 1 tab, Route: PO, Drug form: ECTAB, Daily, Dosing Weight 97.727, kg, Start date: 06/06/15 9:00:00, Duration: 30 day, Stop date: 07/05/15 9:00:00 Notes: Do not crush or chew.(Same As: Ecotrin) Start Date: 06/06/15 Stop Date: 06/06/15 Status: Canceledaspirin 81 mg tablet, enteric coated 81 mg, 1 tab, Route: PO, Drug form: ECTAB, Daily, Dosing Weight 97.727, kg, Start date: 06/04/15 9:00:00, Duration: 30 day, Stop date: 07/03/15 9:00:00 Notes: Do not crush or chew.(Same As: Ecotrin) Start Date: 06/04/15 Stop Date: 06/05/15 Status: Discontinuedaspirin buffered 325 mg oral tablet 325 mg, 1 tab, Route: PO, Drug form: TAB, Daily, Dosing Weight 97.727, kg, Priority: Routine, Start date: 06/06/15 9:00:00, Duration: 30 day, Stop date: 9:00:00 Notes: Take with food. Start Date: 06/06/15 Stop Date: 06/06/15 Status: Discontinuedatorvastatin 80 mg, 2 tab, Route: PO, Drug form: TAB, Bedtime, Dosing Weight 97.727, kg, Start date: 06/04/15 21:00:00, Duration: 30 day, Stop date: 07/03/15 21:00:00 Notes: (Same as: Lipitor) Start Date: 06/04/15 Stop Date: 06/06/15 Status: Discontinuedatropine 0.5 mg, 5 mL, Route: IVP, Drug form: INJ, PRN, PRN Bradycardia, Start date: 04/08 21:37:00, Duration: 30 day, Stop date: 07/05/15 22:36:00 Start Date: 06/05/15 Stop Date: 06/06/15 Status: DiscontinuedDextrose 50% Syringe 12.5 gm, 25 mL, Route: IVP, Drug Form: INJ, Dosing Weight 97.727, kg, PRN, PRN Blood Glucose Results, Start date: 06/03/15 21:14:00, Duration: 30 day, Stop date: 07/03/15 21:13:00 Start Date: 06/03/15 Stop Date: 06/03/15 Status: DiscontinuedDextrose 50% Syringe 25 gm, 50 mL, Route: IVP, Drug Form: INJ, Dosing Weight 97.727, kg, PRN, PRN Blood Glucose Results, Start date: 06/03/15 21:14:00, Duration: 30 day, Stop date: 07/03/15 21:13:00 Start Date: 06/03/15 Stop Date: 06/03/15 Status: DiscontinuedDextrose 50% Syringe 25 gm, 50 mL, Route: IVP, Drug Form: INJ, Dosing Weight 97.727, kg, PRN, PRN Blood Glucose Results, Start date: 06/03/15 21:51:00, Duration: 30 day, Stop date: 07/03/15 21:50:00 Start Date: 06/03/15 Stop Date: 06/06/15 Status: DiscontinuedDextrose 50% Syringe 12.5 gm, 25 mL, Route: IVP, Drug Form: INJ, Dosing Weight 97.727, kg, PRN, PRN Blood Glucose Results, Start date: 06/03/15 21:51:00, Duration: 30 day, Stop date: 07/03/15 21:50:00 Start Date: 06/03/15 Stop Date: 06/06/15 Status: Discontinuedgemfibrozil 600 mg, 1 tab, Route: PO, Drug form: TAB, BID, Dosing Weight 97.727, kg, Start date: 06/04/15 9:00:00, Duration: 30 day, Stop date: 07/03/15 17:00:00 Notes: (Same as: Lopid) Start Date: 06/04/15 Stop Date: 06/06/15 Status: Discontinuedglucagon 1 mg, Route: IM, Drug form: PDR/INJ, PRN, Dosing Weight 97.727, kg, PRN Blood Glucose Results, Startdate: 06/03/15 21:14:00, Duration: 30 day, Stop date: 03/09 21:13:00 Start Date: 06/03/15 Stop Date: 06/03/15 Status: Discontinuedglucagon 1 mg, Route: IM, Drug form: PDR/INJ, PRN, Dosing Weight 97.727, kg, PRN Blood Glucose Results, Startdate: 06/03/15 21:51:00, Duration: 30 day, Stop date: 03/09 21:50:00 Start Date: 06/03/15 Stop Date: 06/06/15 Status: Discontinuedhydrochlorothiazide 25 mg oral tablet 25 mg, 1 tab, Route: PO, Drug form: TAB, Daily, Start date: 06/04/15 9:00:00, Duration: 30 day, Stopdate: 07/03/15 9:00:00 Notes: (Same as: Hydrodiuril) With food. Start Date: 06/04/15 Stop Date: 06/06/15 Status: Discontinuedhydrochlorothiazide-lisinopril 25 mg-20 mg oral tablet 1 tab, Route: PO, Drug Form: TAB, Dosing Weight 97.727, kg, Daily, Start date: 06/04/15 9:00:00, Duration: 30 day, Stop date: 07/03/15 9:00:00 Start Date: 06/04/15 Stop Date: 06/03/15 Status: DeletedImdur 120 mg, 2 tab, Route: PO, Drug form: ERTAB, QAM, Dosing Weight 97.727, kg, Start date: 06/04/15 9:00:00, Duration: 30 day, Stop date: 07/03/15 9:00:00 Notes: (Same as:Imdur)"Do Not Crush" Take on empty stomach/ full glass of water. Do not crush Start Date: 06/04/15 Stop Date: 06/06/15 Status: DiscontinuedImdur 60 mg oral tablet, extended release 120 mg=2 tab, PO, QAM, # 60 tab, 3 Refill(s) Start Date: 06/06/15 Status: Orderedinsulin aspart 15 unit, 0.15 mL, Route: SUB-Q, Drug form: SOLN, TID-Before Meals, Dosing Weight 97.727, kg, PRN Blood Glucose Results, Start date: 06/03/15 21:51:00, Duration: 30 day, Stop date: 07/03/15 21:50:00 Notes: Roll in palms of hands gently; Do not shake vigorously. (Same as: [employer])"single patient use only"WASTE: F/P - Black; E - Municipal Trash Bin Stable for 28 days at room temperature.Expires in days from Date Start Date: 06/03/15 Stop Date: 06/06/15 Status: Discontinuedinsulin aspart 9 unit, 0.09 mL, Route: SUB-Q, Drug form: SOLN, TID-Before Meals, Dosing Weight 97.727, kg, PRN Blood Glucose Results, Start date: 06/03/15 21:51:00, Duration: 30 day, Stop date: 07/03/15 21:50:00 Notes: Roll in palms of hands gently; Do not shake vigorously. (Same as: NovoLOG)"single patient use only"WASTE: F/P - Black; E - Municipal Trash Bin Stable for 28 days at room temperature.Expires in days from Date Start Date: 06/03/15 Stop Date: 06/06/15 Status: Discontinuedinsulin aspart 12 unit, 0.12 mL, Route: SUB-Q, Drug form: SOLN, TID-Before Meals, Dosing Weight 97.727, kg, PRN Blood Glucose Results, Start date: 06/03/15 21:51:00, Duration: 30 day, Stop date: 07/03/15 21:50:00 Notes: Roll in palms of hands gently; Do not shake vigorously. (Same as: [employer])"single patient use only"WASTE: F/P - Black; E - Municipal Trash Bin Stable for 28 days at room temperature.Expires in days from Date Start Date: 06/03/15 Stop Date: 06/06/15 Status: Discontinuedinsulin aspart 6 unit, 0.06 mL, Route: SUB-Q, Drug form: SOLN, TID-Before Meals, Dosing Weight 97.727, kg, PRN Blood Glucose Results, Start date: 06/03/15 21:51:00, Duration: 30 day, Stop date: 07/03/15 21:50:00 Notes: Roll in palms of hands gently; Do not shake vigorously. (Same as: NovoLOG)"single patient use only"WASTE: F/P - Black; E - Municipal Trash Bin Stable for 28 days at room temperature.Expires in days from Date Start Date: 06/03/15 Stop Date: 06/06/15 Status: Discontinuedinsulin aspart 2 unit, 0.02 mL, Route: SUB-Q, Drug form: SOLN, Bedtime, Dosing Weight 97.727, kg, PRN Blood GlucoseResults, Start date: 06/03/15 21:51:00, Duration: 30 day, Stop date: 07/03/15 21:50:00 Notes: Roll in palms of hands gently; Do not shake vigorously. (Same as: NovoLOG)"single patient use only"WASTE: F/P - Black; E - Municipal Trash Bin Stable for 28 days at room temperature.Expires in days from Date Start Date: 06/03/15 Stop Date: 06/06/15 Status: Discontinuedinsulin aspart 3 unit, 0.03 mL, Route: SUB-Q, Drug form: SOLN, Bedtime, Dosing Weight 97.727, kg, PRN Blood GlucoseResults, Start date: 06/03/15 21:51:00, Duration: 30 day, Stop date: 07/03/15 21:50:00 Notes: Roll in palms of hands gently; Do not shake vigorously. (Same as: [employer])"single patient use only"WASTE: F/P - Black; E - Municipal Trash Bin Stable for 28 days at room temperature.Expires in days from Date Start Date: 06/03/15 Stop Date: 06/06/15 Status: Discontinuedinsulin aspart 1 unit, 0.01 mL, Route: SUB-Q, Drug form: SOLN, Bedtime, Dosing Weight 97.727, kg, PRN Blood GlucoseResults, Start date: 06/03/15 21:51:00, Duration: 30 day, Stop date: 07/03/15 21:50:00 Notes: Roll in palms of hands gently; Do not shake vigorously. (Same as: [employer])"single patient use only"WASTE: F/P - Black; E - Municipal Trash Bin Stable for 28 days at room temperature.Expires in days from Date Start Date: 06/03/15 Stop Date: 06/06/15 Status: Discontinuedinsulin aspart 4 unit, 0.04 mL, Route: SUB-Q, Drug form: SOLN, Bedtime, Dosing Weight 97.727, kg, PRN Blood GlucoseResults, Start date: 06/03/15 21:51:00, Duration: 30 day, Stop date: 07/03/15 21:50:00 Notes: Roll in palms of hands gently; Do not shake vigorously. (Same as: [employer])"single patient use only"WASTE: F/P - Black; E - Municipal Trash Bin Stable for 28 days at room temperature.Expires in days from Date Start Date: 06/03/15 Stop Date: 06/06/15 Status: Discontinuedinsulin aspart 3 unit, 0.03 mL, Route: SUB-Q, Drug form: SOLN, TID-Before Meals, Dosing Weight 97.727, kg, PRN Blood Glucose Results, Start date: 06/03/15 21:51:00, Duration: 30 day, Stop date: 07/03/15 21:50:00 Notes: Roll in palms of hands gently; Do not shake vigorously. (Same as: NovoLOG)"single patient use only"WASTE: F/P - Black; E - Municipal Trash Bin Stable for 28 days at room temperature.Expires in days from Date Start Date: 06/03/15 Stop Date: 06/06/15 Status: DiscontinuedInsulin regular 10 unit, 0.1 mL, Route: IVP, Drug form: INJ, ONCE, Dosing Weight 97.727, kg, Priority: STAT, Start date: 06/03/15 18:00:00, Stop date: 06/03/15 18:00:00 Notes: (Same as: Humulin R and NovoLIN R)WASTE: F/P - Black; E - Municipal Trash Bin (Do not shake) Start Date: 06/03/15 Stop Date: 06/03/15 Status: CompletedInsulin regular 5 unit, 0.05 mL, Route: IV, Drug form: INJ, ONCE, Dosing Weight 97.727, kg, Priority: STAT, Start date: 06/03/15 19:30:00, Stop date: 06/03/15 19:30:00 Notes: (Same as: Humulin R and NovoLIN R)WASTE: F/P - Black; E - Municipal Trash Bin (Do not shake) Start Date: 06/03/15 Stop Date: 06/03/15 Status: CompletedLevemir FlexPen 20 unit, 0.2 mL, Route: SUB-Q, Drug form: INJ, BID, Dosing Weight 97.727, kg, Start date: 06/04/15 9:00:00, Duration: 30 day, Stop date: 07/03/15 21:00:00 Notes: Same as LevemirDo not hold insulin without contacting prescriberWASTE: F/ P - Black; E - Municipal Trash Bin "single patient use only" Start Date: 06/04/15 Stop Date: 06/06/15 Status: Discontinuedlisinopril 20 mg, Route: PO, Drug form: TAB, Daily, Dosing Weight 97.727, kg, Start date: 06/04/15 9:00:00, Duration: 30 day, Stop date: 07/03/15 9:00:00 Start Date: 06/04/15 Stop Date: 06/03/15 Status: Canceledmetoprolol 25 mg oral tablet, extended release 25 mg=1 tab, PO, Daily, # 30 tab, 0 Refill(s) Start Date: 06/06/15 Status: Orderedmetoprolol extended release 25 mg, 1 tab, Route: PO, Drug form: ERTAB, Daily, Start date: 06/04/15 9:00:00, Duration: 30 day, Stop date: 07/03/15 9:00:00 Notes: (Same as: Toprol XL) Do Not Crush Start Date: 06/04/15 Stop Date: 06/06/15 Status: Discontinuedmorphine Sulfate 2 mg, 1 mL, Route: IV, Drug form: INJ, Q6H, Dosing Weight 97.727, kg, PRN Pain Score 4-6, Start date: 06/03/15 21:52:00, Duration: 30 day, Stop date: 07/03/15 21:51:00 Notes: (Same as:MORPhine Sulfate) Start Date: 06/03/15 Stop Date: 06/06/15 Status: Discontinuednitroglycerin 0.4 mg sublingual tablet 0.4 mg, 1 tab, Route: SL, Drug form: TAB, Q5Min, Dosing Weight 97.727, kg, PRN Chest Pain, Start date: 06/03/15 21:50:00, Duration: 30 day, Stop date: 21:49:00 Notes: (Same as:Nitroquick, Nitrostat)"Do Not Crush" Sublingual tablet Start Date: 06/03/15 Stop Date: 06/05/15 Status: Discontinuednitroglycerin 0.4 mg sublingual tablet 0.4 mg=1 tab, SL, Q5Min, PRN Chest pain, Give up to 3 doses, # 10 tab, 0 Refill( s) Start Date: 06/06/15 Status: Orderednitroglycerin SL Tab 0.4 mg, 1 tab, Route: SL, Drug form: TAB, Q5Min, Dosing Weight 97.727, kg, PRN Chest Pain, Start date: 06/05/15 17:46:00, Duration: 3 doses or times, Stop date : Limited # of times Notes: (Same as:Nitroquick, Nitrostat)"Do Not Crush" Sublingual tablet Start Date: 06/05/15 Stop Date: 06/06/15 Status: DiscontinuedNitrostat 0.4 mg sublingual tablet 0.4 mg, 1 tab, Route: SL, ONCE, Dosing Weight 97.727, kg, Start date: 06/03/15 17:57:00, Stop date: 06/03/15 17:57:00 Start Date: 06/03/15 Stop Date: 06/03/15 Status: Completednormal saline 0.9% IV 1,000 mL 1,000 mL, Rate: 75 ml/hr, Infuse over: 13.3 hr, Route: IV, Dosing Weight 97.727 kg, Total Volume: 1,000, Start date: 06/03/15 22:15:00, Duration: 30 day, Stop date: 07/03/15 22:14:00 Start Date: 06/03/15 Stop Date: 06/05/15 Status: Discontinuednormal saline 0.9% IV 1,000 mL 1,000 mL, Rate: 1,000 ml/hr, Infuse over: 1 hr, Route: IV, Dosing Weight 97.727 kg, Total Volume: 1,000, Start date: 06/03/15 17:59:00, Duration: 1 doses or times, Stop date: 06/03/15 18:58:00 Start Date: 06/03/15 Stop Date: 06/03/15 Status: DiscontinuedPepcid 20 mg oral tablet 20 mg, 1 tab, Route: PO, Drug form: TAB, Q12H, Dosing Weight 97.727, kg, Start date: 06/04/15 9:00:00, Duration: 30 day, Stop date: 07/03/15 21:00:00 Notes: (Same as: Pepcid) Start Date: 06/04/15 Stop Date: 06/06/15 Status: DiscontinuedPlavix 75 mg, 1 tab, Route: PO, Drug form: TAB, Daily, Dosing Weight 97.727, kg, Start date: 06/04/15 9:00:00, Duration: 30 day, Stop date: 07/03/15 9:00:00 Notes: (Same As: Plavix) Start Date: 06/04/15 Stop Date: 06/05/15 Status: Discontinuedprasugrel 10 mg, 1 tab, Route: PO, Drug form: TAB, Daily, Dosing Weight 97.727, kg, Start date: 06/06/15 9:00:00, Duration: 30 day, Stop date: 07/05/15 9:00:00 Notes: Same as Effient For patients < 75 years old, > 60kg, without history of TIA/Ischemic stroke and without likely bypass surgery Start Date: 06/06/15 Stop Date: 06/06/15 Status: Discontinuedprasugrel 10 mg oral tablet 10 mg=1 tab, PO, Daily, # 30 tab, 0 Refill(s) Start Date: 06/06/15 Status: OrderedPrinivil 20 mg, 1 tab, Route: PO, Drug form: TAB, Daily, Start date: 06/04/15 9:00:00, Duration: 30 day, Stopdate: 07/03/15 9:00:00 Notes: (Same as: Prinivil, Zestril) Start Date: 06/04/15 Stop Date: 06/06/15 Status: DiscontinuedPROzac 40 mg, 2 cap, Route: PO, Drug form: CAP, Daily, Dosing Weight 97.727, kg, Start date: 06/04/15 9:00:00, Duration: 30 day, Stop date: 07/03/15 9:00:00 Notes: (Same as: Prozac, Sarafem) Start Date: 06/04/15 Stop Date: 06/06/15 Status: DiscontinuedSaline Flush 0.9% 10 mL, Route: IVP, Drug Form: INJ, Dosing Weight 97.727, kg, PRN, PRN Line Flush , Start date: 06/03/15 16:55:00, Duration: 30 day, Stop date: 07/03/15 16:54:00 Notes: (Same as: BD Posiflush) Start Date: 06/03/15 Stop Date: 06/03/15 Status: DeletedSaline Flush 0.9% 10 ml, Route: IVP, Drug Form: INJ, Dosing Weight 97.727, kg, PRN, PRN Line Flush , Start date: 06/03/15 21:14:00, Duration: 30 day, Stop date: 07/03/15 21:13:00 Notes: (Same as: BD Posiflush) Start Date: 06/03/15 Stop Date: 06/06/15 Status: DiscontinuedSaline Flush 0.9% 10 ml, Route: IVP, Drug Form: INJ, Dosing Weight 97.727, kg, Q12H, Start date: 06/04/15 9:00:00, Duration: 30 day, Stop date: 07/03/15 21:00:00 Notes: (Same as: BD Posiflush) Start Date: 06/04/15 Stop Date: 06/06/15 Status: DiscontinuedSodium Chloride 0.9% (Bolus) IV 1,000 mL, 1,000 ml/hr, Infuse Over: 1 hr, Route: IV, 1,000, Drug form: INJ, ONCE , Priority: STAT, Dosing Weight 97.727 kg, Start date: 06/03/15 18:13:00, Duration: 1 doses or times, Stop date: 06/03/1617:13:00 Start Date: 06/03/15 Stop Date: 06/03/15 Status: CompletedSodium Chloride 0.9% (Bolus) IV 1,000 mL, 1,000 ml/hr, Infuse Over: 1 hr, Route: IV, ONCE, Priority: STAT, Dosing Weight 97.727 kg, Start date: 06/03/15 18:13:00, Duration: 1 doses or times, Stop date: 06/03/15 18:13:00 Start Date: 06/03/15 Stop Date: 06/03/15 Status: CompletedSodium Chloride 0.9% IV 1,200 mL 1,200 mL, Rate: 100 ml/hr, Infuse over: 12 hr, Route: IV, Dosing Weight 97.727 kg, Total Volume: 1,200, Start date: 06/05/15 17:46:00, Duration: 24 hr, Stop date: 06/06/15 17:45:00 Start Date: 06/05/15 Stop Date: 06/06/15 Status: Discontinuedticagrelor 90 mg, Route: PO, Q12H, Dosing Weight 97.727, kg, Start date: 06/05/15 21:00:00 , Duration: 30 day, Stop date: 07/05/15 9:00:00 Start Date: 06/05/15 Stop Date: 06/05/15 Status: CanceledTylenol 650 mg, 2 tab, Route: PO, Drug form: TAB, Q6H, Dosing Weight 97.727, kg, PRN Pain 1-3/Temp > 100.4 F, Start date: 06/03/15 21:50:00, Duration: 30 day, Stop date: 07/03/15 21:49:00 Notes: Do not exceed 4 gm/day. (Same as: Tylenol) Start Date: 06/03/15 Stop Date: 06/06/15 Status: DiscontinuedZofran 4 mg, 2 mL, Route: IV, Drug form: INJ, Q4H, Dosing Weight 97.727, kg, PRN Nausea , Start date: 06/03/15 21:53:00, Duration: 30 day, Stop date: 07/03/15 21:52:00 Notes: (Same as: Zofran) MEDICATION WASTE Product Size: 4 mgProduct Wasted: ___ mg Start Date: 06/03/15 Stop Date: 06/06/15 Status: DiscontinuedZyPREXA 10 mg, 1 tab, Route: PO, Drug form: TAB, Bedtime, Dosing Weight 97.727, kg, Start date: 06/04/15 21:00:00, Duration: 30 day, Stop date: 07/03/15 21:00:00 Notes: (Same as: ZyPREXA) Start Date: 06/04/15 Stop Date: 06/06/15 Status: Discontinued Results ELECTROLYTES Most recent to oldest 1 2 3 [Reference Range]: Sodium Lvl [135-145 mEq/L] 138 mEq/L 134 mEq/L 127 mEq/L (06/06/15 4:13 AM) *LOW* *LOW* (06/04/15 5:55 AM) (06/03/15 5:04 PM) Potassium Lvl [3.5-5.1 3.7 mEq/L 3.9 mEq/L 3.8 mEq/L mEq/L] (06/06/15 4:13 AM) (06/04/15 5:55 AM) (06/03/15 5:04 PM) Chloride Lvl [95-109 mEq/L] 103 mEq/L 98 mEq/L 90 mEq/L (06/06/15 4:13 AM) (06/04/15 5:55 AM) *LOW* (06/03/15 5:04 PM) CO2 [24-32 mEq/L] 22 mEq/L 25 mEq/L 23 mEq/L *LOW* (06/04/15 5:55 AM) *LOW* (06/06/15 4:13 AM) (06/03/15 5:04 PM) AGAP [10.0-20.0 mEq/L] 16.7 mEq/L 14.9 mEq/L 17.8 mEq/L (06/06/15 4:13 AM) (06/04/15 5:55 AM) (06/03/15 5:04 PM) CHEM PANEL Most recent to oldest 1 2 3 [Reference Range]: Creatinine Lvl [0.50-1.40 0.57 mg/dL 0.78 mg/dL 1.28 mg/dL mg/dL] (06/06/15 4:13 AM) (06/04/15 5:55 AM) (06/03/15 5:04 PM) eGFR 128 mL/min/1.73m2 1 105 mL/min/1.73m2 2 58 mL/min/1.73m2 3 *NA* *NA* *NA* (06/06/15 4:13 AM) (06/04/15 5:55 AM) (06/03/15 5:04 PM) BUN [7-22 mg/dL] 10 mg/dL 11 mg/dL 13 mg/dL (06/06/15 4:13 AM) (06/04/15 5:55 AM) (06/03/15 5:04 PM) B/C Ratio [6-25] 10 (06/03/15 5:04 PM) Glucose Lvl [70-99 mg/dL] 308 mg/dL 388 mg/dL 596 mg/dL 4 *HI* *HI* *CRIT* (06/06/15 4:13 AM) (06/04/15 5:55 AM) (06/03/15 5:04 PM) Total Protein [6.4-8.4 8.1 g/dL g/dL] (06/03/15 5:04 PM) Albumin Lvl [3.5-5.0 g/dL] 3.8 g/dL (06/03/15 5:04 PM) Globulin [2.0-4.0 g/dL] 4.3 g/dL *HI* (06/03/15 5:04 PM) A/G Ratio [0.7-1.6] 0.9 (06/03/15 5:04 PM) Calcium Lvl [8.5-10.5 8.8 mg/dL 8.8 mg/dL 9.1 mg/dL mg/dL] (06/06/15 4:13 AM) (06/04/15 5:55 AM) (06/03/15 5:04 PM) ALT [0-65 unit/L] 38 unit/L *NA* (06/03/15 5:04 PM) AST [0-37 unit/L] 25 unit/L (06/03/15 5:04 PM) Alk Phos [39-136 unit/L] 116 unit/L (06/03/15 5:04 PM) Bili Total [0.2-1.3 mg/dL] 0.4 mg/dL (06/03/15 5:04 PM) 1Result Comment: The eGFR is calculated [...] be multiplied by the estimated BMI.4Result Comment: Critical Result(s) called to Mallika Blair at 06/03/2015 17:40 by evon. Read back OK.CARDIAC ENZYMES Most recent to oldest 1 2 3 [Reference Range]: Total CK [12-191 unit/L] 69 unit/L 76 unit/L 79 unit/L (06/04/15 5:55 AM) (06/04/15 12:00 AM) (06/03/15 5:04 PM) CK MB [0.5-3.6 ng/mL] <0.5 ng/mL <0.5 ng/mL (06/04/15 12:00 AM) (06/03/15 5:04 PM) CK MB Index [0.0-2.5] <0.7 <0.6 (06/04/15 12:00 AM) (06/03/15 5:04 PM) Troponin-I [0.00-0.40 ng/mL] <0.02 ng/mL <0.02 ng/mL <0.02 ng/mL (06/04/15 5:55 AM) (06/04/15 12:00 AM) (06/03/15 5:04 PM) LIPIDS Most recent to oldest [Reference Range]: 1 2 3 CHD Risk [3.90-5.80] 8.58 *HI* (06/04/15 5:55 AM) Chol [<=199 mg/dL] 223 mg/dL *HI* (06/04/15 5:55 AM) Trig [<=149 mg/dL] 567 mg/dL *HI* (06/04/15 5:55 AM) HDL [>=61 mg/dL] 26 mg/dL *LOW* (06/04/15 5:55 AM) LDL (Calculated) [<=99 mg/dL] See Note mg/dL 1 *NA* (06/04/15 5:55 AM) VLDL See Note 2 *NA* (06/04/15 5:55 AM) 1Result Comment: LDL cholesterol cannot be calculated due to very high triglycerides (>400 mg/dL). Recommend Direct LDL if clinically indicated.2Result Comment: VLDL - Cholesterol level cannot be accurately calculated due to very high triglycerides (>400 mg/dL).ENDOCRINOLOGY Most recent to oldest [Reference Range]: 1 2 3 S Preg [Negative] Negative *NA* (06/04/15 5:55 AM) URINE AND STOOL Most recent to oldest [Reference Range]: 1 2 3 UA Turbidity [Clear] Clear (06/03/15 5:33 PM) UA Color Colorless *NA* (06/03/15 5:33 PM) UA pH [5.0-8.0] 5.0 (06/03/15 5:33 PM) UA Spec Grav [<=1.030] 1.018 (06/03/15 5:33 PM) UA Glucose [Negative mg/dL] 500 mg/dL *ABN* (06/03/15 5:33 PM) UA Blood [Negative] Negative (06/03/15 5:33 PM) UA Ketones [Negative mg/dL] Negative mg/dL *NA* (06/03/15 5:33 PM) UA Protein [Negative mg/dL] Negative mg/dL (06/03/15 5:33 PM) UA Urobilinogen [0.1-1.0 mg/dL] <=1.0 mg/dL *NA* (06/03/15 5:33 PM) UA Bili [Negative] Negative *NA* (06/03/15 5:33 PM) UA Leuk Est [Negative] Negative (06/03/15 5:33 PM) UA Nitrite [Negative] Negative (06/03/15 5:33 PM) UA WBC [0-5 /HPF] <1 /HPF (06/03/15 5:33 PM) UA RBC [0-2 /HPF] <1 /HPF (06/03/15 5:33 PM) UA Sq Epi None Seen *NA* (06/03/15 5:33 PM) HEMATOLOGY Most recent to oldest [Reference Range]: 1 2 3 WBC [3.7-10.4 K/CMM] 6.9 K/CMM 7.4 K/CMM (06/06/15 4:13 AM) (06/03/15 5:04 PM) RBC [4.20-5.40 M/CMM] 3.89 M/CMM 4.34 M/CMM *LOW* (06/03/15 5:04 PM) (06/06/15 4:13 AM) Hgb [12.0-16.0 g/dL] 11.6 g/dL 13.4 g/dL *LOW* (06/03/15 5:04 PM) (06/06/15 4:13 AM) Hct [36.0-48.0 %] 35.8 % 40.2 % *LOW* (06/03/15 5:04 PM) (06/06/15 4:13 AM) MCV [80.0-98.0 fL] 92.2 fL 92.7 fL (06/06/15 4:13 AM) (06/03/15 5:04 PM) MCH [27.0-31.0 pg] 29.8 pg 30.8 pg (06/06/15 4:13 AM) (06/03/15 5:04 PM) MCHC [32.0-36.0 g/dL] 32.3 g/dL 33.3 g/dL (06/06/15 4:13 AM) (06/03/15 5:04 PM) RDW [11.5-14.5 %] 13.4 % 13.3 % (06/06/15 4:13 AM) (06/03/15 5:04 PM) Platelet [133-450 K/CMM] 234 K/CMM 276 K/CMM (06/06/15 4:13 AM) (06/03/15 5:04 PM) MPV [7.4-10.4 fL] 10.5 fL 11.1 fL *HI* *HI* (06/06/15 4:13 AM) (06/03/15 5:04 PM) Segs [45.0-75.0 %] 44.3 % 59.5 % *LOW* (06/03/15 5:04 PM) (06/06/15 4:13 AM) Lymphocytes [20.0-40.0 %] 44.0 % 30.8 % *HI* (06/03/15 5:04 PM) (06/06/15 4:13 AM) Monocytes [2.0-12.0 %] 7.4 % 6.5 % (06/06/15 4:13 AM) (06/03/15 5:04 PM) Eosinophils [0.0-4.0 %] 3.0 % 1.9 % (06/06/15 4:13 AM) (06/03/15 5:04 PM) Basophils [0.0-1.0 %] 1.3 % 1.3 % *HI* *HI* (06/06/15 4:13 AM) (06/03/15 5:04 PM) Segs-Bands # [1.5-8.1 K/CMM] 3.1 K/CMM 4.4 K/CMM (06/06/15 4:13 AM) (06/03/15 5:04 PM) Lymphocytes # [1.0-5.5 K/CMM] 3.1 K/CMM 2.3 K/CMM (06/06/15 4:13 AM) (06/03/15 5:04 PM) Monocytes # [0.0-0.8 K/CMM] 0.5 K/CMM 0.5 K/CMM (06/06/15 4:13 AM) (06/03/15 5:04 PM) Eosinophils # [0.0-0.5 K/CMM] 0.2 K/CMM 0.1 K/CMM (06/06/15 4:13 AM) (06/03/15 5:04 PM) Basophils # [0.0-0.2 K/CMM] 0.1 K/CMM 0.1 K/CMM (06/06/15 4:13 AM) (06/03/15 5:04 PM) Immunizations Vaccine Date Refusal Reason pneumococcal [...] Plan Extracted from: Title: Clinical Document Author: Francesca Ordoñez MD Date: 06/06/15 [facility] Progress Note Impression: Unstable angina s/p PCI of mid and ostial LAD with MICHELINE HTN DMII Obesity Plan: IVUS showed severe mid LAD stenosis with MLA:3.9mm2 and severe ostial LAD stenosis with MLA:3.75mm2 PCI with Xience Alpine 3.33bag02 to mid LAD and 3.5x12mm to ostial [...] Labs (Last four charted values) WBC 6.9 (FEB 13) 7.4 (FEB 10) Hgb L 11.6 (B 13) 13.4 (FEB 10) Hct L 35.8 (B 13) 40.2 (FEB 10) Plt 234 (B 13) 276 (FEB 10) Na 138 (FEB 13) L 134 (FEB 11) L 127 (FEB 10) K 3.7 (B 13) 3.9 (FEB 11) 3.8 (FEB 10) CO2 L 22 (B 13) 25 (FEB 11) L 23 (FEB 10) Cl 103 (B 13) 98 (FEB 11) L 90 (FEB 10) Cr 0.57 (B 13) 0.78 (FEB 11) 1.28 (FEB 10) BUN 10 (B 13) 11 (FEB 11) 13 (FEB 10) Glucose Random H 308 (FEB 13) H 388 (JUN 04) C 596 (JUN 03) Ca 8.8 (JUN 06) 8.8 (JUN 04) 9.1 (JUN 03) Troponin <0.02 (JUN 04) <0.02 (JUN 04) <0.02 (JUN 03) CK MB <0.5 (JUN 04) <0.5 (JUN 03) Total CK 69 (JUN 04) 76 (JUN 04) 79 (JUN 03) Scheduled Meds (13): 06/04/15 FLUoxetine (PROzac) 40 [...] 1,200 mL 1,200 mL 100 ml/hr Extracted from: Title: Clinical Document Author: Zaid Ahuja MD Date: 06/03/15 History and Physical Attending: Dian Campos MD Service: Internal Medicine Code status: None Specified=FULL CODE Reason for Admission: CHEST PAIN, ACUTE HYPERGLYCEMIA Working DRG: None Documented Isolation: None Documented Consulting Physicians: Pavithra Ryan MD Office: MSO: [id number] Service: Cardiology CC: CP HPI: This is [...] diabetes mellitus Mother: Rheumatoid arthritis maternal grandmother- [place] at age 62 SHx: Denies T/E/D Meds: [...] 2 tab, PO, QAM, 60 tab, 3 Refill(s). lisinopril: 40 mg, 2 tab, PO, Daily, [...]
--- OUTSIDE RECORDS SUMMARY | 2018-12-17 19:00 | XMS REPORT | Summary of Care ---
:1970 Author Organization [facility] Address [address], [place] [address]- Encounter HQ Daryl_kati(NATALIE) [id number] Date(s): 04/22/16 - 04/22/16 [facility] [address] [place] [address]- [phone] Discharge Diagnosis: Acute headache Discharge Disposition: Home or Self Care Attending Physician: Raven Miller DO Vital Signs Most recent to oldest 1 2 3 [Reference Range]: Height 165.1 cm (04/22/16 5:13 PM) Temperature Oral [96.4-99.1 98.1 DegF DegF] (04/22/16 5:13 PM) Blood Pressure [90-140/60-90 174/95 mmHg 197/116 mmHg mmHg] *HI* *HI* (04/22/16 8:11 PM) (04/22/16 5:13 PM) Respiratory Rate [14-20 18 BRMIN 11 BRMIN 18 BRMIN BRMIN] (04/22/16 8:11 PM) *LOW* (04/22/16 5:13 PM) (04/22/16 6:44 PM) Peripheral Pulse Rate 64 bpm [60-100 bpm] (04/22/16 5:13 PM) Weight 92.727 kg (04/22/16 5:13 PM) Body Mass Index 34.02 m2 (04/22/16 5:13 PM) Problem List Condition Effective Dates Status Health Status Informant CAD - Coronary artery Resolved disease(Confirmed) Chronic pain syndrome1 02/07/14 Active DM - Diabetes mellitus(Confirmed) Active FH: Diabetes mellitus2 12/17/13 Active HTN - Hypertension(Confirmed) Active Hyperlipidemia(Confirmed) Active Insertion of coronary artery Resolved stent(Confirmed)3 Stroke(Confirmed) Active Stroke(Confirmed) Resolved 1Data migrated from [email or web address] on 12/16/14.2Data migrated from [email or web address] on 12/16/14.3x 2- May 2015 Allergies, Adverse Reactions, Alerts Substance Reaction Severity Status NKDA Active Medications Benadryl 25 mg, 0.5 mL, Route: IVP, Drug form: INJ, ONCE, Dosing Weight 92.727, kg, Priority: STAT, Start date: 04/22/16 19:08:00 CEREAL POPPER, Stop date: 04/22/16 19:08:00 CEREAL POPPER Notes: (Same as: Benadryl) Start Date: 04/22/16 Stop Date: 04/22/16 Status: CompletedFioricet 300 mg-50 mg-40 mg oral capsule 1 cap, PO, Q4H, PRN PRN Headache, Do not exceed 6 capsules in 24 hours, X 10 day , # 20 caplet, 0 Refill(s) Start Date: 04/22/16 Stop Date: 04/22/16 Status: DiscontinuedNS (Bolus) IV 1,000 mL, 1,000 ml/hr, Infuse Over: 1 hr, Route: IV, 1,000, Drug form: INJ, ONCE , Priority: STAT, Dosing Weight 92.727 kg, Start date: 04/22/16 19:08:00 CEREAL POPPER, Duration: 1 doses or times, Stop date: 04/22/16 19:08:00 CEREAL POPPER Start Date: 04/22/16 Stop Date: 04/22/16 Status: CompletedReglan 20 mg, 4 mL, Route: IVP, Drug form: INJ, ONCE, Dosing Weight 92.727, kg, Priority: STAT, Start date:04/22/16 19:08:00 CEREAL POPPER, Stop date: 04/22/16 19:08:00 CEREAL POPPER Notes: (Same as: Reglan) Start Date: 04/22/16 Stop Date: 04/22/16 Status: CompletedReglan 10 mg oral tablet 10 mg=1 tab, PO, QID, PRN Nausea & Vomiting, X 10 day, # 40 tab, 0 Refill(s) Start Date: 04/22/16 Stop Date: 05/02/16 Status: Ordered Results ELECTROLYTES Most recent to oldest [Reference Range]: 1 Sodium Lvl [135-145 mEq/L] 137 mEq/L (04/22/16 5:45 PM) Potassium Lvl [3.5-5.1 mEq/L] 3.7 mEq/L (04/22/16 5:45 PM) Chloride Lvl [95-109 mEq/L] 101 mEq/L (04/22/16 5:45 PM) CO2 [24-32 mEq/L] 26 mEq/L (04/22/16 5:45 PM) AGAP [10.0-20.0 mEq/L] 13.7 mEq/L (04/22/16 5:45 PM) CHEM PANEL Most recent to oldest [Reference Range]: 1 Creatinine Lvl [0.50-1.40 mg/dL] 0.72 mg/dL (04/22/16 5:45 PM) eGFR 115 mL/min/1.73m2 1 *NA* (04/22/16 5:45 PM) BUN [7-22 mg/dL] 8 mg/dL (04/22/16 5:45 PM) B/C Ratio [6-25] 11 (04/22/16 5:45 PM) Glucose Lvl [70-99 mg/dL] 263 mg/dL *HI* (04/22/16 5:45 PM) Total Protein [6.4-8.4 g/dL] 8.0 g/dL (04/22/16 5:45 PM) Albumin Lvl [3.5-5.0 g/dL] 3.8 g/dL (04/22/16 5:45 PM) Globulin [2.7-4.2 g/dL] 4.2 g/dL (04/22/16 5:45 PM) A/G Ratio [0.7-1.6] 0.9 (04/22/16 5:45 PM) Calcium Lvl [8.5-10.5 mg/dL] 8.9 mg/dL (04/22/16 5:45 PM) ALT [0-65 unit/L] 21 unit/L (04/22/16 5:45 PM) AST [0-37 unit/L] 10 unit/L (04/22/16 5:45 PM) Alk Phos [39-136 unit/L] 73 unit/L (04/22/16 5:45 PM) Bili Total [0.2-1.3 mg/dL] 0.2 mg/dL (04/22/16 5:45 PM) Lipase Lvl [73-393 unit/L] 75 unit/L (04/22/16 7:20 PM) 1Result Comment: The eGFR is calculated [...] [Reference Range]: 1 Total CK [12-191 unit/L] 84 unit/L (04/22/16 5:45 PM) CK MB [0.5-3.6 ng/mL] <0.5 ng/mL (04/22/16 5:45 PM) CK MB Index [0.0-2.5] <0.6 (04/22/16 5:45 PM) Troponin-I [0.00-0.40 ng/mL] <0.02 ng/mL (04/22/16 5:45 PM) URINE CHEM Most recent to oldest [Reference Range]: 1 U Preg [Negative] Negative (04/22/16 6:14 PM) URINE AND STOOL Most recent to oldest [Reference Range]: 1 UA Turbidity [Clear] Clear (04/22/16 6:14 PM) UA Color Ltyellow *NA* (04/22/16 6:14 PM) UA pH [5.0-8.0] 6.0 (04/22/16 6:14 PM) UA Spec Grav [<=1.030] 1.015 (04/22/16 6:14 PM) UA Glucose [Negative mg/dL] 500 mg/dL *ABN* (04/22/16 6:14 PM) UA Blood [Negative] Negative (04/22/16 6:14 PM) UA Ketones [Negative mg/dL] Negative mg/dL *NA* (04/22/16 6:14 PM) UA Protein [Negative mg/dL] Negative mg/dL (04/22/16 6:14 PM) UA Urobilinogen [0.1-1.0 mg/dL] <=1.0 mg/dL *NA* (04/22/16 6:14 PM) UA Bili [Negative] Negative *NA* (04/22/16 6:14 PM) UA Leuk Est [Negative] Negative (04/22/16 6:14 PM) UA Nitrite [Negative] Negative (04/22/16 6:14 PM) UA WBC [0-5 /HPF] 1 /HPF (04/22/16 6:14 PM) UA RBC [0-2 /HPF] 5 /HPF *HI* (04/22/16 6:14 PM) UA Sq Epi [Few /LPF] Few /LPF *NA* (04/22/16 6:14 PM) HEMATOLOGY Most recent to oldest [Reference Range]: 1 WBC [3.7-10.4 K/CMM] 6.7 K/CMM (04/22/16 5:45 PM) RBC [4.20-5.40 M/CMM] 4.41 M/CMM (04/22/16 5:45 PM) Hgb [12.0-16.0 g/dL] 13.6 g/dL (04/22/16 5:45 PM) Hct [36.0-48.0 %] 40.4 % (04/22/16 5:45 PM) MCV [80.0-98.0 fL] 91.7 fL (04/22/16 5:45 PM) MCH [27.0-31.0 pg] 30.9 pg (04/22/16 5:45 PM) MCHC [32.0-36.0 g/dL] 33.8 g/dL (04/22/16 5:45 PM) RDW [11.5-14.5 %] 13.5 % (04/22/16 5:45 PM) Platelet [133-450 K/CMM] 310 K/CMM (04/22/16 5:45 PM) MPV [7.4-10.4 fL] 9.9 fL (04/22/16 5:45 PM) Segs [45.0-75.0 %] 43.9 % *LOW* (04/22/16 5:45 PM) Lymphocytes [20.0-40.0 %] 41.5 % *HI* (04/22/16 5:45 PM) Monocytes [2.0-12.0 %] 8.1 % (04/22/16 5:45 PM) Eosinophils [0.0-4.0 %] 5.2 % *HI* (04/22/16 5:45 PM) Basophils [0.0-1.0 %] 1.3 % *HI* (04/22/16 5:45 PM) Segs-Bands # [1.5-8.1 K/CMM] 2.9 K/CMM (04/22/16 5:45 PM) Lymphocytes # [1.0-5.5 K/CMM] 2.8 K/CMM (04/22/16 5:45 PM) Monocytes # [0.0-0.8 K/CMM] 0.5 K/CMM (04/22/16 5:45 PM) Eosinophils # [0.0-0.5 K/CMM] 0.3 K/CMM (04/22/16 5:45 PM) Basophils # [0.0-0.2 K/CMM] 0.1 K/CMM (04/22/16 5:45 PM) Immunizations Given and Recorded Vaccine Date Status [...]
--- OUTSIDE RECORDS SUMMARY | 2018-12-17 19:00 | XMS REPORT | Summary of Care ---
:1970 Author Organization [facility] Address [address] [address], [place] [address]- Encounter HQ Gilberto(FIN) [id number] Date(s): 10/16/15 - 10/16/15 [facility] [address] [place] [address]- Discharge Diagnosis: Chest pain Discharge Diagnosis: DM (diabetes mellitus), type 2, uncontrolled Discharge Disposition: Home Attending Physician: Neto Sommers MD Vital Signs Most recent to oldest 1 2 3 [Reference Range]: Height 165.1 cm (10/16/15 10:40 AM) Temperature Oral [96.4-99.1 98.2 DegF 98.4 DegF DegF] (10/16/15 5:43 PM) (10/16/15 10:40 AM) Blood Pressure [90-140/60-90 120/66 mmHg 138/85 mmHg 120/78 mmHg mmHg] (10/16/15 5:43 PM) (10/16/15 1:13 PM) (10/16/15 10:40 AM) Respiratory Rate [14-20 16 BRMIN 15 BRMIN 20 BRMIN BRMIN] (10/16/15 5:43 PM) (10/16/15 1:13 PM) (10/16/15 10:40 AM) Peripheral Pulse Rate 64 bpm 59 bpm 74 bpm [60-100 bpm] (10/16/15 5:43 PM) *LOW* (10/16/15 10:40 AM) (10/16/15 1:13 PM) Weight 100 kg (10/16/15 10:40 AM) Body Mass Index 36.69 m2 (10/16/15 10:40 AM) Problem List Condition Effective Dates Status Health Status Informant CAD - Coronary artery Resolved disease(Confirmed) Chronic pain syndrome1 02/07/14 Active DM - Diabetes mellitus(Confirmed) Active FH: Diabetes mellitus2 12/17/13 Active HTN - Hypertension(Confirmed) Active Hyperlipidemia(Confirmed) Active Insertion of coronary artery Resolved stent(Confirmed)3 Stroke(Confirmed) Active Stroke(Confirmed) Resolved 1Data migrated from [employer] on 12/16/14.2Data migrated from [employer] on 12/16/14.3x 2- May 2015 Allergies, Adverse Reactions, Alerts Substance Reaction Severity Status NKDA Active Medications Dextrose 50% Syringe 12.5 gm, 25 mL, Route: IVP, Drug Form: INJ, Dosing Weight 100, kg, PRN, PRN Blood Glucose Results, Start date: 10/16/15 10:40:00 CDT, Duration: 30 day, Stop date: 11/15/15 10:39:00 CDT Start Date: 10/16/15 Stop Date: 10/16/15 Status: DiscontinuedDextrose 50% Syringe 25 gm, 50 mL, Route: IVP, Drug Form: INJ, Dosing Weight 100, kg, PRN, PRN Blood Glucose Results, Start date: 10/16/15 10:40:00 CDT, Duration: 30 day, Stop date : 11/15/15 10:39:00 CDT Start Date: 10/16/15 Stop Date: 10/16/15 Status: Discontinuedglucagon 1 mg, Route: IM, Drug form: PDR/INJ, PRN, Dosing Weight 100, kg, PRN Blood Glucose Results, Start date: 10/16/15 10:40:00 CDT, Duration: 30 day, Stop date : 11/15/15 10:39:00 CDT Start Date: 10/16/15 Stop Date: 10/16/15 Status: DiscontinuedInsulin regular 4 unit, 0.04 mL, Route: SUB-Q, Drug form: INJ, ONCE, Dosing Weight 100, kg, Priority: STAT, Start date: 10/16/15 16:15:00 CDT, Stop date: 10/16/15 16:15:00 CDT Notes: (Same as: Humulin R and NovoLIN R)WASTE: F/P - Black; E - Municipal Trash Bin (Do not shake) Start Date: 10/16/15 Stop Date: 10/16/15 Status: CompletedInsulin regular 10 unit, Route: IVP, ONCE, Dosing Weight 100, kg, Priority: STAT, Start date: 10:41:00 CDT,Stop date: 10/16/15 10:41:00 CDT Start Date: 10/16/15 Stop Date: 10/16/15 Status: CompletedketOROLAC 15 mg, Route: IVP, Drug form: INJ, ONCE, Dosing Weight 100, kg, Priority: STAT, Start date: 10/15/1613:07:00 CDT, Stop date: 10/16/15 14:07:00 CDT Start Date: 10/16/15 Stop Date: 10/16/15 Status: Completedmorphine Sulfate 2 mg, Route: IVP, Drug form: INJ, ONCE, Dosing Weight 100, kg, Priority: STAT, Start date: 10/16/15 13:05:00 CDT, Stop date: 10/16/15 13:05:00 CDT Start Date: 10/16/15 Stop Date: 10/16/15 Status: CompletedNorco 7.5/325 oral tablet 1 tab, Route: PO, Drug Form: TAB, Dosing Weight 100, kg, ONCE, STAT, Start date : 10/16/15 16:01:00 CDT, Stop date: 10/16/15 16:01:00 CDT Notes: Same as [place] 325-7.5mg Do not exceed 4gm/day of acetaminophen. Start Date: 10/16/15 Stop Date: 10/16/15 Status: CompletedNS (Bolus) IV 1,000 mL, 1,000 ml/hr, Infuse Over: 1 hr, Route: IV, 1,000, Drug form: INJ, ONCE , Priority: STAT, Dosing Weight 100 kg, Start date: 10/16/15 12:07:00 CDT, Duration: 1 doses or times, Stop date: 10/16/15 12:07:00 CDT Start Date: 10/16/15 Stop Date: 10/16/15 Status: CompletedNS (Bolus) IV 500 mL, 500 ml/hr, Infuse Over: 1 hr, Route: IV, 500, Drug form: INJ, ONCE, Priority: STAT, Dosing Weight 100 kg, Start date: 10/16/15 16:21:00 CDT, Duration: 1 doses or times, Stop date: 10/16/15 16:21:00 CDT Start Date: 10/16/15 Stop Date: 10/16/15 Status: CompletedSaline Flush 0.9% 10 mL, Route: IVP, Drug Form: INJ, Dosing Weight 100, kg, PRN, PRN Line Flush, Start date: 10/16/15 10:40:00 CDT, Duration: 30 day, Stop date: 11/15/15 10:39: 00 CDT Notes: (Same as: BD Posiflush) Start Date: 10/16/15 Stop Date: 10/16/15 Status: DiscontinuedSodium Chloride 0.9% (Bolus) IV 1,000 mL, 2,000 ml/hr, Infuse Over: 30 MINS, Route: IV, ONCE, Priority: STAT, Dosing Weight 100 kg, Start date: 10/16/15 10:40:00 CDT, Duration: 1 doses or times, Stop date: 10/16/15 10:40:00 CDT Start Date: 10/16/15 Stop Date: 10/16/15 Status: Completed Results ELECTROLYTES Most recent to oldest [Reference Range]: 1 2 Sodium Lvl [135-145 mEq/L] 137 mEq/L 133 mEq/L (10/16/15 2:30 PM) *LOW* (10/16/15 10:52 AM) Potassium Lvl [3.5-5.1 mEq/L] 4.0 mEq/L 4.1 mEq/L (10/16/15 2:30 PM) (10/16/15 10:52 AM) Chloride Lvl [95-109 mEq/L] 100 mEq/L 92 mEq/L (10/16/15 2:30 PM) *LOW* (10/16/15 10:52 AM) CO2 [24-32 mEq/L] 24 mEq/L 22 mEq/L (10/16/15 2:30 PM) *LOW* (10/16/15 10:52 AM) AGAP [10.0-20.0 mEq/L] 17.0 mEq/L 23.1 mEq/L (10/16/15 2:30 PM) *HI* (10/16/15 10:52 AM) CHEM PANEL Most recent to oldest [Reference Range]: 1 2 Creatinine Lvl [0.50-1.40 mg/dL] 0.62 mg/dL 0.90 mg/dL (10/16/15 2:30 PM) (10/16/15 10:52 AM) eGFR 124 mL/min/1.73m2 1 88 mL/min/1.73m2 2 *NA* *NA* (10/16/15 2:35 PM) (10/16/15 10:52 AM) BUN [7-22 mg/dL] 11 mg/dL 12 mg/dL (10/16/15 2:30 PM) (10/16/15 10:52 AM) B/C Ratio [6-25] 13 (10/16/15 10:52 AM) Glucose Lvl [70-99 mg/dL] 372 mg/dL 593 mg/dL 3 *HI* *CRIT* (10/16/15 2:30 PM) (10/16/15 10:52 AM) Total Protein [6.4-8.4 g/dL] 7.2 g/dL (10/16/15 10:52 AM) Albumin Lvl [3.5-5.0 g/dL] 3.9 g/dL (10/16/15 10:52 AM) Globulin [2.0-4.0 g/dL] 3.3 g/dL (10/16/15 10:52 AM) A/G Ratio [0.7-1.6] 1.2 (10/16/15 10:52 AM) Calcium Lvl [8.5-10.5 mg/dL] 7.6 mg/dL 8.1 mg/dL *LOW* *LOW* (10/16/15 2:30 PM) (10/16/15 10:52 AM) Magnesium Lvl [1.8-2.4 mg/dL] 2.1 mg/dL (10/16/15 10:52 AM) ALT [0-65 unit/L] 31 unit/L (10/16/15 10:52 AM) AST [0-37 unit/L] 18 unit/L (10/16/15 10:52 AM) Alk Phos [39-136 unit/L] 119 unit/L (10/16/15 10:52 AM) Bili Total [0.2-1.3 mg/dL] 0.3 mg/dL (10/16/15 10:52 AM) Ketone Quantitative [<=0.27 mmol/L] 0.45 mmol/L 4 *HI* (10/16/15 10:52 AM) Lactic Acid Lvl [0.5-2.2 mMol/L] 0.9 mMol/L (10/16/15 1:06 PM) Osmolality [280-300 mOsm/kg] 308 mOsm/kg *HI* (10/16/15 10:52 AM) 1Result Comment: The eGFR is [...] be multiplied by the estimated BMI.3Result Comment: Specimen grossly lipemic. Performed lipoclear. 10/16/2015 12:22 LEVI Critical Result(s) called to Tom Britton at 10/16/2015 12:31 byHA. Read back OK.4Result Comment: Specimen grossly lipemic. Lipoclear performed. 10/16/2015 13 :07 HACARDIAC ENZYMES Most recent to oldest [Reference Range]: 1 2 Total CK [12-191 unit/L] 83 unit/L (10/16/15 10:52 AM) CK MB [0.5-3.6 ng/mL] <0.5 ng/mL <0.5 ng/mL (10/16/15 2:30 PM) (10/16/15 10:52 AM) CK MB Index [0.0-2.5] <0.6 (10/16/15 10:52 AM) Troponin-I [0.00-0.40 ng/mL] <0.015 ng/mL <0.02 ng/mL (10/16/15 2:30 PM) (10/16/15 10:52 AM) TOXICOLOGY Most recent to oldest [Reference Range]: 1 2 Salicylate Lvl [0.0-30.0 mg/dL] <1.7 mg/dL (10/16/15 2:35 PM) Etoh (%) <.003 % *NA* (10/16/15 2:30 PM) Ethanol Lvl <3 mg/dL *NA* (10/16/15 2:30 PM) URINE AND STOOL Most recent to oldest [Reference Range]: 1 2 UA Turbidity [Clear] Clear (10/16/15 10:52 AM) UA Color Ltyellow *NA* (10/16/15 10:52 AM) UA pH [5.0-8.0] 6.0 (10/16/15 10:52 AM) UA Spec Grav [<=1.030] 1.026 (10/16/15 10:52 AM) UA Glucose [Negative mg/dL] 500 mg/dL *ABN* (10/16/15 10:52 AM) UA Blood [Negative] Negative (10/16/15 10:52 AM) UA Ketones [Negative mg/dL] Negative mg/dL *NA* (10/16/15 10:52 AM) UA Protein [Negative mg/dL] Negative mg/dL (10/16/15 10:52 AM) UA Urobilinogen [0.1-1.0 mg/dL] <=1.0 mg/dL *NA* (10/16/15 10:52 AM) UA Bili [Negative] Negative *NA* (10/16/15 10:52 AM) UA Leuk Est [Negative] Negative (10/16/15 10:52 AM) UA Nitrite [Negative] Negative (10/16/15 10:52 AM) UA WBC [0-5 /HPF] 1 /HPF (10/16/15 10:52 AM) UA RBC [0-2 /HPF] 1 /HPF (10/16/15 10:52 AM) UA Sq Epi [Few /LPF] Occasional /LPF *NA* (10/16/15 10:52 AM) HEMATOLOGY Most recent to oldest [Reference Range]: 1 2 WBC [3.7-10.4 K/CMM] 7.6 K/CMM (10/16/15 10:52 AM) RBC [4.20-5.40 M/CMM] 4.29 M/CMM (10/16/15 10:52 AM) Hgb [12.0-16.0 g/dL] 13.4 g/dL (10/16/15 10:52 AM) Hct [36.0-48.0 %] 39.0 % (10/16/15 10:52 AM) MCV [80.0-98.0 fL] 90.9 fL (10/16/15 10:52 AM) MCH [27.0-31.0 pg] 31.2 pg *HI* (10/16/15 10:52 AM) MCHC [32.0-36.0 g/dL] 34.4 g/dL (10/16/15 10:52 AM) RDW [11.5-14.5 %] 13.1 % (10/16/15 10:52 AM) Platelet [133-450 K/CMM] 250 K/CMM (10/16/15 10:52 AM) MPV [7.4-10.4 fL] 10.6 fL *HI* (10/16/15 10:52 AM) Segs [45.0-75.0 %] 68.7 % (10/16/15 10:52 AM) Lymphocytes [20.0-40.0 %] 23.3 % (10/16/15 10:52 AM) Monocytes [2.0-12.0 %] 5.5 % (10/16/15 10:52 AM) Eosinophils [0.0-4.0 %] 1.4 % (10/16/15 10:52 AM) Basophils [0.0-1.0 %] 1.1 % *HI* (10/16/15 10:52 AM) Segs-Bands # [1.5-8.1 K/CMM] 5.2 K/CMM (10/16/15 10:52 AM) Lymphocytes # [1.0-5.5 K/CMM] 1.8 K/CMM (10/16/15 10:52 AM) Monocytes # [0.0-0.8 K/CMM] 0.4 K/CMM (10/16/15 10:52 AM) Eosinophils # [0.0-0.5 K/CMM] 0.1 K/CMM (10/16/15 10:52 AM) Basophils # [0.0-0.2 K/CMM] 0.1 K/CMM (10/16/15 10:52 AM) PT [12.0-14.7 seconds] 12.5 seconds (10/16/15 10:52 AM) INR [0.85-1.17] 0.90 (10/16/15 10:52 AM) PTT [22.9-35.8 seconds] 26.7 seconds (10/16/15 10:52 AM) VIRAL - SEROLOGY Most recent to oldest [Reference Range]: 1 2 Influ A [Negative] Negative (10/16/15 1:38 PM) Influ B [Negative] Negative (10/16/15 1:38 PM) Immunizations Given and Recorded Vaccine Date [...]
--- OUTSIDE RECORDS SUMMARY | 2018-12-17 19:01 | XMS REPORT | Summary of Care ---
:1970 Author Organization [facility] Address [address] [address] [place], [place] [address]- Encounter HQ Encntr_alisavannah(FIN) [phone] Date(s): 03/31/18 - 04/01/18 [facility] [address] [place] [address]- Encounter Diagnosis Paresthesia (Discharge Diagnosis) - 04/01/18 Hyperglycemia (Discharge Diagnosis) - 04/01/18 Headache (Discharge Diagnosis) - 04/01/18 Type 2 diabetes mellitus with hyperglycemia (Final) - 04/08/18 Paresthesia of skin (Final) - Hemiplegia and hemiparesis following cerebral infarction affecting left non- dominant side (Final) - Essential (primary) hypertension (Final) - 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) - Chronic pain syndrome (Final) - Hyperlipidemia, unspecified (Final) - 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 (Final) - Presence of coronary angioplasty implant and graft (Final) - Discharge Disposition: Home or Self Care Attending Physician: Angelic Sherman MD Vital Signs Most recent to oldest 1 2 3 [Reference Range]: Height 165.1 cm (03/31/18 9:49 PM) Temperature Oral [96.4-99.1 98 DegF 98.8 DegF DegF] (04/01/18 2:26 AM) (03/31/18 9:49 PM) Blood Pressure [90-140/60-90 145/92 mmHg 166/89 mmHg 180/93 mmHg mmHg] *HI* *HI* *HI* (04/01/18 2:26 AM) (04/01/18 1:00 AM) (03/31/18 9:49 PM) Respiratory Rate [14-20 BRMIN] 18 BRMIN 18 BRMIN 18 BRMIN (04/01/18 2:26 AM) (04/01/18 1:00 AM) (03/31/18 9:49 PM) Peripheral Pulse Rate [60-100 65 bpm bpm] (03/31/18 9:49 PM) Weight 95.909 kg (03/31/18 9:49 PM) Body Mass Index 35.19 m2 (03/31/18 9:49 PM) Problem List Condition Effective Dates Status Health Status Informant CAD - Coronary artery Resolved disease(Confirmed) Chronic pain syndrome1 02/07/14 Active DM - Diabetes mellitus(Confirmed) Active FH: Diabetes mellitus2 12/17/13 Active HTN - Hypertension(Confirmed) Active Hyperlipidemia(Confirmed) Active Insertion of coronary artery Resolved stent(Confirmed)3 Stroke(Confirmed) Active Stroke(Confirmed) Resolved 1Data migrated from Single[employer] on 12/16/14.2Data migrated from Single[employer] on 12/16/14.3x 2- May 2015 Allergies, Adverse Reactions, Alerts No Known Medication Allergies Medications acetaminophen 650 mg, 2 tab, Route: PO, Drug form: TAB, ONCE, Dosing Weight 95.909, kg, Priority: STAT, Start date: 04/01/18 1:03:00 SNUBBER, Stop date: 04/01/18 1:03:00 SNUBBER Notes: Do not exceed 4 gm/day. (Same as: Tylenol) Start Date: 04/01/18 Stop Date: 04/01/18 Status: Completedinsulin aspart 20 unit, Route: SUB-Q, ONCE, Dosing Weight 95.909, kg, Priority: STAT, Start date: 03/31/18 23:55:00CST, Stop date: 03/31/18 23:55:00 SNUBBER Start Date: 03/31/18 Stop Date: 04/01/18 Status: Completedinsulin lispro 10 unit, Route: SUB-Q, Drug form: SOLN, ONCE, Dosing Weight 95.909, kg, Start date: 04/01/18 1:20:00CST, Stop date: 04/01/18 1:20:00 SNUBBER Notes: (Same as: Humalog ) Roll in palms of hands gently; Do not shake ` vigorously. "Single PatientUse Only " WASTE: F/P - Black; E - Municipal Trash Bin Stable for 28 days at room temperature.Expires in days from Date Start Date: 04/01/18 Stop Date: 04/01/18 Status: Completed Results Most recent to oldest [Reference Range]: 1 Neutrophils # [1.5-8.1 K/CMM] 4.5 K/CMM (03/31/18 10:13 PM) Lymphocytes # [1.0-5.5 K/CMM] 2.1 K/CMM (03/31/18 10:13 PM) Monocytes # [0.0-0.8 K/CMM] 0.6 K/CMM (03/31/18 10:13 PM) Eosinophils # [0.0-0.5 K/CMM] 0.3 K/CMM (03/31/18 10:13 PM) Basophils # [0.0-0.2 K/CMM] 0.1 K/CMM (03/31/18 10:13 PM) eGFR 57 mL/min/1.73m2 1 *NA* (03/31/18 10:13 PM) A/G Ratio [0.7-1.6] 0.8 (03/31/18 10:13 PM) Albumin Lvl [3.5-5.0 g/dL] 3.1 g/dL *LOW* (03/31/18 10:13 PM) Alk Phos [39-136 unit/L] 127 unit/L (03/31/18 10:13 PM) ALT [0-65 unit/L] 29 unit/L (03/31/18 10:13 PM) AGAP [10.0-20.0 mEq/L] 13.9 mEq/L (03/31/18 10:13 PM) AST [0-37 unit/L] 13 unit/L (03/31/18 10:13 PM) B/C Ratio [6-25] 10 (03/31/18 10:13 PM) Basophils [0.0-1.0 %] 0.8 % (03/31/18 10:13 PM) BUN [7-22 mg/dL] 11 mg/dL (03/31/18 10:13 PM) Calcium Lvl [8.5-10.5 mg/dL] 8.4 mg/dL *LOW* (03/31/18 10:13 PM) Chloride Lvl [95-109 mEq/L] 98 mEq/L (03/31/18 10: PM) CO2 [24-32 mEq/L] 24 mEq/L (03/31/18: PM) Creatinine Lvl [0.50-1.40 mg/dL] 1.13 mg/dL (03/31/18: PM) Eosinophils [0.0-4.0 %] 3.6 % (03/31/18: PM) Globulin [2.7-4.2 g/dL] 4.0 g/dL (03/31/18: PM) Glucose Lvl [70-99 mg/dL] 526 mg/dL 2 *CRIT* (03/31/18: PM) Hct [36.0-48.0 %] 33.2 % *LOW* (03/31/18: PM) Hgb [12.0-16.0 g/dL] 11.1 g/dL *LOW* (03/31/18: PM) Potassium Lvl [3.5-5.1 mEq/L] 3.9 mEq/L (03/31/18:13 PM) Lymphocytes [20.0-40.0 %] 27.6 % (03/31/18: PM) MCH [27.0-31.0 pg] 30.2 pg (03/31/18: PM) MCHC [32.0-36.0 g/dL] 33.3 g/dL (03/31/18: PM) MCV [80.0-98.0 fL] 90.8 fL (03/31/18: PM) Monocytes [2.0-12.0 %] 8.2 % (03/31/18:13 PM) MPV [7.4-10.4 fL] 10.0 fL (03/31/18:13 PM) Sodium Lvl [135-145 mEq/L] 132 mEq/L *LOW* (03/31/18: PM) Platelet [133-450 K/CMM] 248 K/CMM (03/31/18:13 PM) Segs [45.0-75.0 %] 59.8 % (03/31/18 10:13 PM) Total Protein [6.4-8.4 g/dL] 7.1 g/dL (03/31/18 10:13 PM) RBC [4.20-5.40 M/CMM] 3.66 M/CMM *LOW* (03/31/18 10:13 PM) RDW [11.5-14.5 %] 14.3 % (03/31/18 10:13 PM) Bili Total [0.2-1.3 mg/dL] 0.1 mg/dL *LOW* (03/31/18 10:13 PM) Troponin-I [0.00-0.40 ng/mL] <0.02 ng/mL (03/31/18 10:13 PM) UA Bili [Negative] Negative *NA* (03/31/18 11:22 PM) UA Blood [Negative] Negative (03/31/18 11:22 PM) UA Color Ltyellow *NA* (03/31/18 11:22 PM) UA Glucose [Negative mg/dL] 500 mg/dL *ABN* (03/31/18 11:22 PM) UA Ketones [Negative] Negative *NA* (03/31/18:22 PM) UA Leuk Est [Negative] Negative (03/31/18 11:22 PM) UA Nitrite [Negative] Negative (03/31/18 11:22 PM) UA pH [5.0-8.0] 6.0 (03/31/18 11:22 PM) UA Protein [Negative] Negative (03/31/18 11:22 PM) UA Spec Grav [<=1.030] 1.025 (03/31/18 11:22 PM) UA Sq Epi [Few /LPF] Occasional /LPF *NA* (03/31/18:22 PM) UA Turbidity [Clear] Clear (03/31/18:22 PM) UA Urobilinogen [0.1-1.0 mg/dL] <=1.0 mg/dL *NA* (03/31/18 11:22 PM) UA WBC [0-5 /HPF] <1 /HPF (03/31/18 11:22 PM) WBC [3.7-10.4 K/CMM] 7.5 K/CMM (03/31/18 10:13 PM) 1Result Comment: The eGFR is calculated using the CKD-EPI formula. In most young , healthy individualsthe eGFR will be >90 mL/min/1.73m2. The eGFR declines with age. An eGFR of 60-89 may be normal insome populations, particularly the elderly, for whom the [...] estimated BMI.2Result Comment: Critical Result(s) called to RN. Delilah Salazar at 03/31/2018 22:52 by naga. Read back OK. Immunizations Given and Recorded Vaccine Date Status Refusal Reason influenza virus vaccine, inactivated 03/13/18 Given pneumococcal 23-valent vaccine 11/27/13 Given Procedures Procedure Date Related Diagnosis Body Site Status Abdominal hysterectomy Completed Cardiac catheterization Completed Cervical discectomy1 Completed section Completed Skin of head and/or neck reconstruction Completed Spinal fusion Completed Stent placement2 Completed Tonsillectomy Completed 1anterior cerivical disectomy fusion on November 27, [...] Smoking Cessation Counseling No entered on: 05/16/18 Assessment and Plan No data available for this section
--- OUTSIDE RECORDS SUMMARY | 2018-12-17 19:01 | XMS REPORT | Summary of Care ---
:1970 Author Organization [facility] Address [address] [address], [place] [address]- Encounter HQ Elvisr_kati(FIN) [phone] Date(s): 01/06/18 - 01/06/18 [facility] [address] [place] [address]- Encounter Diagnosis UTI (urinary tract infection) (Discharge Diagnosis) - 01/06/18 Pyelonephritis (Discharge Diagnosis) - 01/06/18 Flank pain (Discharge Diagnosis) - 01/06/18 Tubulo-interstitial nephritis, not specified as acute or chronic (Final) - Urinary tract infection, site not specified (Final) - Tachycardia, unspecified (Final) - Dehydration (Final) - Essential (primary) hypertension (Final) - Type 2 diabetes mellitus without complications (Final) - Hyperlipidemia, unspecified (Final) - Atherosclerotic heart disease of [place] coronary artery without angina pectoris (Final) - Chronic pain syndrome (Final) - custodial (current) use of aspirin (Final) - Other long term care social worker (current) drug therapy (Final) - custodial (current) use of insulin (Final) - custodial (current) use of antithrombotics/antiplatelets (Final) - Personal history of transient ischemic attack (TIA), and cerebral infarction without residual deficits (Final) - Acquired absence of both cervix and uterus (Final) - Discharge Disposition: Home or Self Care Attending Physician: Rhianna Dickson MD Vital Signs Most recent to oldest 1 2 3 [Reference Range]: Temperature Oral [96.4-99.1 98.8 DegF 98.9 DegF DegF] (01/06/18 6:26 PM) (01/06/18 2:25 PM) Blood Pressure [90-140/60-90 123/80 mmHg 108/63 mmHg 110/60 mmHg mmHg] (01/06/18 6:26 PM) (01/06/18 5:14 PM) (01/06/18 4:40 PM) Respiratory Rate [14-20 BRMIN] 18 BRMIN 18 BRMIN 18 BRMIN (01/06/18 6:26 PM) (01/06/18 5:14 PM) (01/06/18 2:25 PM) Peripheral Pulse Rate [60-100 98 bpm 100 bpm 108 bpm bpm] (01/06/18 6:26 PM) (01/06/18 5:14 PM) *HI* (01/06/18 4:40 PM) Problem List Condition Effective Dates Status Health Status Informant CAD - Coronary artery Resolved disease(Confirmed) Chronic pain syndrome1 02/07/14 Active DM - Diabetes mellitus(Confirmed) Active FH: Diabetes mellitus2 12/17/13 Active HTN - Hypertension(Confirmed) Active Hyperlipidemia(Confirmed) Active Insertion of coronary artery Resolved stent(Confirmed)3 Stroke(Confirmed) Active Stroke(Confirmed) Resolved 1Data migrated from [employer] on 12/16/14.2Data migrated from [employer] on 12/16/14.3x 2- May 2015 Allergies, Adverse Reactions, Alerts Substance Reaction Severity Status NKDA Active Medications cefTRIAXone + sterile water 10 mL 1 gm, Route: IVP, ONCE, Dosing Weight 96.818, kg, Priority: STAT, Start date: 17:07:00 CDT,Stop date: 01/06/18 17:07:00 CDT, ABX Indication: Urinary Tract Infection Notes: (Same As: Rocephin).Use with 100 mL NS and infuse over 30 min MEDICATION WASTE Product Size: 1000 mgProduct Wasted: ___ mg Start Date: 01/06/18 Stop Date: 01/06/18 Status: CompletedCipro 500 mg oral tablet 500 mg=1 tab, PO, Q12H, X 14 day, # 28 tab, 0 Refill(s) Start Date: 01/06/18 Stop Date: 01/20/18 Status: CompletedfentaNYL 50 microgram, 1 mL, Route: IVP, Drug form: INJ, ONCE, Dosing Weight 96.818, kg, Priority: STAT, Start date: 01/06/18 17:28:00 CDT, Stop date: 01/06/18 17:28:00 CDT Notes: (Same as: Sublimaze) Preservative free. Start Date: 01/06/18 Stop Date: 01/06/18 Status: CompletedSodium Chloride 0.9% (Bolus) IV 1,000 mL, 1000 ml/hr, Infuse Over: 1 hr, Route: IV, 1,000, Drug form: INJ, ONCE , Priority: STAT, Dosing Weight 96.818 kg, Start date: 01/06/18 17:28:00 CDT, Stop date: 01/06/18 17:28:00 CDT Start Date: 01/06/18 Stop Date: 01/06/18 Status: CompletedTylenol with Codeine #3 oral tablet 1 tab, PO, Q6H, PRN Pain, X 3 day, # 12 tab, 0 Refill(s) Start Date: 01/06/18 Stop Date: 01/09/18 Status: CompletedZofran ODT 4 mg, 1 tab, Route: PO, Drug form: TABDIS, ONCE, Dosing Weight 96.818, kg, Priority: STAT, Start date: 01/06/18 17:28:00 CDT, Stop date: 01/06/18 17:28:00 CDT Notes: (Same as: Zofran ODT) Start Date: 01/06/18 Stop Date: 01/06/18 Status: CompletedZofran ODT 4 mg oral tablet, disintegrating 4 mg=1 tab, PO, TID, PRN Nausea, Dissolve tab under tongue, # 6 tab, 0 Refill(s) Start Date: 01/06/18 Stop Date: 03/10/18 Status: Completed Results ELECTROLYTES Most recent to oldest [Reference Range]: 1 Sodium Lvl [135-145 mEq/L] 133 mEq/L *LOW* (01/06/18 2:37 PM) Potassium Lvl [3.5-5.1 mEq/L] 4.0 mEq/L (01/06/18 2:37 PM) Chloride Lvl [95-109 mEq/L] 97 mEq/L (01/06/18 2:37 PM) CO2 [24-32 mEq/L] 25 mEq/L (01/06/18 2:37 PM) AGAP [10.0-20.0 mEq/L] 15.0 mEq/L (01/06/18 2:37 PM) CHEM PANEL Most recent to oldest [Reference Range]: 1 Creatinine Lvl [0.50-1.40 mg/dL] 1.33 mg/dL (01/06/18 2:37 PM) eGFR 54 mL/min/1.73m2 1 *NA* (01/06/18 2:37 PM) BUN [7-22 mg/dL] 13 mg/dL (01/06/18 2:37 PM) B/C Ratio [6-25] 10 (01/06/18 2:37 PM) Glucose Lvl [70-99 mg/dL] 474 mg/dL 2 *CRIT* (01/06/18 2:37 PM) Total Protein [6.4-8.4 g/dL] 7.6 g/dL (01/06/18 2:37 PM) Albumin Lvl [3.5-5.0 g/dL] 3.4 g/dL *LOW* (01/06/18 2:37 PM) Globulin [2.7-4.2 g/dL] 4.2 g/dL (01/06/18 2:37 PM) A/G Ratio [0.7-1.6] 0.8 (01/06/18 2:37 PM) Calcium Lvl [8.5-10.5 mg/dL] 8.4 mg/dL *LOW* (01/06/18 2:37 PM) ALT [0-65 unit/L] 24 unit/L (01/06/18 2:37 PM) AST [0-37 unit/L] 8 unit/L (01/06/18 2:37 PM) Alk Phos [39-136 unit/L] 118 unit/L (01/06/18 2:37 PM) Bili Total [0.2-1.3 mg/dL] <0.1 mg/dL *LOW* (01/06/18 2:37 PM) 1Result Comment: The eGFR is calculated [...] estimated BMI.2Result Comment: Critical Result(s) called to Rodrick at 01/06/2018 15:21 by [email or web address]. Read back OK.CARDIAC ENZYMES Most recent to oldest [Reference Range]: 1 Troponin-I [0.00-0.40 ng/mL] <0.02 ng/mL (01/06/18 2:37 PM) URINE CHEM Most recent to oldest [Reference Range]: 1 U Preg [Negative] Negative (01/06/18 2:40 PM) URINE AND STOOL Most recent to oldest [Reference Range]: 1 UA Turbidity [Clear] Clear (01/06/18 2:40 PM) UA Color Ltyellow *NA* (01/06/18 2:40 PM) UA pH [5.0-8.0] 5.0 (01/06/18 2:40 PM) UA Spec Grav [<=1.030] 1.017 (01/06/18 2:40 PM) UA Glucose [Negative mg/dL] 500 mg/dL *ABN* (01/06/18 2:40 PM) UA Blood [Negative] Small *ABN* (01/06/18 2:40 PM) UA Ketones [Negative mg/dL] Negative mg/dL *NA* (01/06/18 2:40 PM) UA Protein [Negative mg/dL] Negative mg/dL (01/06/18 2:40 PM) UA Urobilinogen [0.1-1.0 mg/dL] <=1.0 mg/dL *NA* (01/06/18 2:40 PM) UA Bili [Negative] Negative *NA* (01/06/18 2:40 PM) UA Leuk Est [Negative] Large *ABN* (01/06/18 2:40 PM) UA Nitrite [Negative] Negative (01/06/18 2:40 PM) UA WBC [0-5 /HPF] 57 /HPF *HI* (01/06/18 2:40 PM) UA RBC [0-2 /HPF] 10 /HPF *HI* (01/06/18 2:40 PM) UA Bacteria [None Seen /HPF] Occasional /HPF *NA* (01/06/18 2:40 PM) UA Sq Epi [Few /LPF] Few /LPF *NA* (01/06/18 2:40 PM) UA Mucus [None Seen /LPF] Few /LPF *NA* (01/06/18 2:40 PM) HEMATOLOGY Most recent to oldest [Reference Range]: 1 WBC [3.7-10.4 K/CMM] 10.2 K/CMM (01/06/18 2:37 PM) RBC [4.20-5.40 M/CMM] 4.17 M/CMM *LOW* (01/06/18 2:37 PM) Hgb [12.0-16.0 g/dL] 12.8 g/dL (01/06/18 2:37 PM) Hct [36.0-48.0 %] 37.6 % (01/06/18 2:37 PM) MCV [80.0-98.0 fL] 90.0 fL (01/06/18 2:37 PM) MCH [27.0-31.0 pg] 30.6 pg (01/06/18 2:37 PM) MCHC [32.0-36.0 g/dL] 34.0 g/dL (01/06/18 2:37 PM) RDW [11.5-14.5 %] 14.1 % (01/06/18 2:37 PM) MPV [7.4-10.4 fL] 9.7 fL (01/06/18 2:37 PM) Platelet [133-450 K/CMM] 285 K/CMM (01/06/18 2:37 PM) Segs [45.0-75.0 %] 64.7 % (01/06/18 2:37 PM) Lymphocytes [20.0-40.0 %] 26.6 % (01/06/18 2:37 PM) Monocytes [2.0-12.0 %] 5.6 % (01/06/18 2:37 PM) Eosinophils [0.0-4.0 %] 2.1 % (01/06/18 2:37 PM) Basophils [0.0-1.0 %] 1.0 % (01/06/18 2:37 PM) Neutrophils # [1.5-8.1 K/CMM] 6.6 K/CMM (01/06/18 2:37 PM) Lymphocytes # [1.0-5.5 K/CMM] 2.7 K/CMM (01/06/18 2:37 PM) Monocytes # [0.0-0.8 K/CMM] 0.6 K/CMM (01/06/18 2:37 PM) Eosinophils # [0.0-0.5 K/CMM] 0.2 K/CMM (01/06/18 2:37 PM) Basophils # [0.0-0.2 K/CMM] 0.1 K/CMM (01/06/18 2:37 PM) Microbiology Reports TEST:Culture: Urine STATUS:Auth (Verified) BODY SITE: SOURCE:Urine, Clean Catch COLLECTED DATE/TIME:01/06/18 4:03 PMFINAL REPORT<10,000 CFU/mL Skin Mary Immunizations Given and Recorded Vaccine Date Status [...]
--- OUTSIDE RECORDS SUMMARY | 2018-12-17 19:01 | XMS REPORT | Summary of Care ---
:1970 Author Organization [facility] Address [address] [place], [place] [address]- Encounter HQ Gilberto(FIN) [phone] Date(s): 05/16/18 - 05/17/18 [facility] [address] [place] [address]- Encounter Diagnosis Hypertensive urgency (Final) - 05/21/18 Anesthesia of skin (Final) - Dizziness and giddiness (Final) - Paresthesia of skin (Final) - Atherosclerotic heart disease of [place] coronary artery without angina pectoris (Final) - Type 2 diabetes mellitus without complications (Final) - Hyperlipidemia, unspecified (Final) - Chronic pain syndrome (Final) - skilled nursing (current) use of aspirin (Final) - Presence of cardiac pacemaker (Final) - skilled nursing (current) use of antithrombotics/antiplatelets (Final) - 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 (Final) - skilled nursing (current) use of insulin (Final) - Personal history of transient ischemic attack (TIA), and cerebral infarction without residual deficits (Final) - Family history of ischemic heart disease and other diseases of the circulatory system (Final) - Acquired absence of both cervix and uterus (Final) - Presence of coronary angioplasty implant and graft (Final) - Acute headache (Discharge Diagnosis) - 05/16/18 Hypertensive urgency (Discharge Diagnosis) - 05/16/18 Discharge Disposition: Home or Self Care Attending Physician: Matteo Clark MD Vital Signs Most recent to oldest 1 2 3 [Reference Range]: Height 165.1 cm (05/16/18 1:46 PM) Temperature Oral [96.4-99.1 98.6 DegF 98.2 DegF DegF] (05/16/18 5:48 PM) (05/16/18 1:46 PM) Blood Pressure [90-140/60-90 178/99 mmHg 188/112 mmHg 180/104 mmHg mmHg] *HI* *HI* *HI* (05/16/18 11:30 PM) (05/16/18 7:28 PM) (05/16/18 5:48 PM) Respiratory Rate [14-20 BRMIN] 20 BRMIN 17 BRMIN 20 BRMIN (05/16/18 11:30 PM) (05/16/18 7:28 PM) (05/16/18 5:48 PM) Peripheral Pulse Rate [60-100 91 bpm 87 bpm bpm] (05/16/18 5:48 PM) (05/16/18 1:46 PM) Weight 100 kg (05/16/18 1:46 PM) Body Mass Index 36.69 m2 (05/16/18 1:46 PM) Problem List Condition Effective Dates Status Health Status Informant CAD - Coronary artery Resolved disease(Confirmed) Chronic pain syndrome1 02/07/14 Active DM - Diabetes mellitus(Confirmed) Active FH: Diabetes mellitus2 12/17/13 Active HTN - Hypertension(Confirmed) Active Hyperlipidemia(Confirmed) Active Insertion of coronary artery Resolved stent(Confirmed)3 Stroke(Confirmed) Active Stroke(Confirmed) Resolved 1Data migrated from [employer] on 12/16/14.2Data migrated from [employer] on 12/16/14.3x 2- May 2015 Allergies, Adverse Reactions, Alerts No Known Medication Allergies Medications Benadryl 25 mg, 0.5 mL, Route: IVP, Drug form: INJ, ONCE, Dosing Weight 100, kg, Priority : STAT, Start date: 05/16/18 19:06:00 PRINCIPAL STATISTICAL SCIENTIST, Stop date: 05/16/18 19:06:00 PRINCIPAL STATISTICAL SCIENTIST Notes: (Same as: Benadryl) Start Date: 05/16/18 Stop Date: 05/16/18 Status: CompletedhydrALAZINE 10 mg, 0.5 mL, Route: IVP, Drug form: INJ, ONCE, Dosing Weight 100, kg, Priority : STAT, Start date: 05/16/18 21:56:00 PRINCIPAL STATISTICAL SCIENTIST, Stop date: 05/16/18 21:56:00 PRINCIPAL STATISTICAL SCIENTIST Notes: (Same as: Apresoline)Push over 5 minutes Start Date: 05/16/18 Stop Date: 05/16/18 Status: CompletedhydrALAZINE 10 mg, Route: IVP, ONCE, Dosing Weight 100, kg, Priority: STAT, Start date: 23:05:00 PRINCIPAL STATISTICAL SCIENTIST, Stop date: 05/16/18 23:05:00 PRINCIPAL STATISTICAL SCIENTIST Start Date: 05/16/18 Stop Date: 05/16/18 Status: CompletedketOROLAC 15 mg/mL injectable solution 15 mg, 0.5 mL, Route: IVP, Drug form: INJ, ONCE, Dosing Weight 100, kg, Priority : STAT, Start date: 05/16/18 21:55:00 PRINCIPAL STATISTICAL SCIENTIST, Stop date: 05/16/18 21:55:00 PRINCIPAL STATISTICAL SCIENTIST Notes: (Same as:Toradol) IV bolus must be given >15 seconds. Give IM administration slowly and deeply into the muscle.Not for use > 4 days MEDICATION WASTE Product Size: 30 mgProduct Wasted: ___ mg Start Date: 05/16/18 Stop Date: 05/16/18 Status: CompletedNS 1,000 mL 1,000 mL, Rate: 1,000 ml/hr, Infuse over: 1 hr, Route: IV, Dosing Weight 100 kg , Total Volume: 1,000, Start date: 05/16/18 19:06:00 PRINCIPAL STATISTICAL SCIENTIST, Duration: 1 doses or times, Stop date: 05/16/18 20:05:00 PRINCIPAL STATISTICAL SCIENTIST, Bolus Dose, 2.17, m2 Start Date: 05/16/18 Stop Date: 05/16/18 Status: CompletedReglan 10 mg, 2 mL, Route: IVP, Drug form: INJ, ONCE, Dosing Weight 100, kg, Priority: STAT, Start date: 05/16/18 19:05:00 PRINCIPAL STATISTICAL SCIENTIST, Stop date: 05/16/18 19:05:00 PRINCIPAL STATISTICAL SCIENTIST Notes: (Same as: Reglan) Start Date: 05/16/18 Stop Date: 05/16/18 Status: CompletedSaline Flush 0.9% 10 mL, Route: IVP, Drug Form: INJ, Dosing Weight 100, kg, PRN, PRN Line Flush, Start date: 05/16/18 14:00:00 PRINCIPAL STATISTICAL SCIENTIST, Duration: 30 day, Stop date: 06/15/18 13:59: 00 PRINCIPAL STATISTICAL SCIENTIST Notes: (Same as: BD Posiflush) Start Date: 05/16/18 Stop Date: 05/17/18 Status: DiscontinuedTylenol 650 mg, 2 tab, Route: PO, Drug form: TAB, ONCE, Dosing Weight 100, kg, Priority : STAT, Start date: 05/16/18 19:06:00 PRINCIPAL STATISTICAL SCIENTIST, Stop date: 05/16/18 19:06:00 PRINCIPAL STATISTICAL SCIENTIST Notes: Do not exceed 4 gm/day. (Same as: Tylenol) Start Date: 05/16/18 Stop Date: 05/16/18 Status: Completed Results Most recent to oldest [Reference Range]: 1 Neutrophils # [1.5-8.1 K/CMM] 4.2 K/CMM (05/16/18 2:34 PM) Lymphocytes # [1.0-5.5 K/CMM] 2.6 K/CMM (05/16/18 2:34 PM) Monocytes # [0.0-0.8 K/CMM] 0.5 K/CMM (05/16/18 2:34 PM) Eosinophils # [0.0-0.5 K/CMM] 0.3 K/CMM (05/16/18 2:34 PM) Basophils # [0.0-0.2 K/CMM] 0.1 K/CMM (05/16/18 2:34 PM) BNP [<=100 pg/mL] 102 pg/mL *HI* (05/16/18 2:34 PM) Plt Morph Normal (05/16/18 2:34 PM) eGFR 91 mL/min/1.73m2 1 *NA* (05/16/18 2:34 PM) A/G Ratio [0.7-1.6] 1.1 2 (05/16/18 2:34 PM) Albumin Lvl [3.5-5.0 g/dL] 3.4 g/dL 3 *LOW* (05/16/18 2:34 PM) Alk Phos [39-136 unit/L] 119 unit/L 4 (05/16/18 2:34 PM) ALT [0-65 unit/L] 37 unit/L 5 (05/16/18 2:34 PM) AGAP [10.0-20.0 mEq/L] 10.1 mEq/L (05/16/18 2:34 PM) AST [0-37 unit/L] 41 unit/L 6 *HI* (05/16/18 2:34 PM) B/C Ratio [6-25] 12 7 (05/16/18 2:34 PM) Basophils [0.0-1.0 %] 1.2 % *HI* (05/16/18 2:34 PM) BUN [7-22 mg/dL] 9 mg/dL 8 (05/16/18 2:34 PM) Calcium Lvl [8.5-10.5 mg/dL] 7.8 mg/dL 9 *LOW* (05/16/18 2:34 PM) Total CK [12-191 unit/L] 203 unit/L 10 *HI* (05/16/18 2:34 PM) Chloride Lvl [95-109 mEq/L] 104 mEq/L (05/16/18 2:34 PM) CO2 [24-32 mEq/L] 29 mEq/L (05/16/18 2:34 PM) Creatinine Lvl [0.50-1.40 mg/dL] 0.77 mg/dL (05/16/18 2:34 PM) Eosinophils [0.0-4.0 %] 3.3 % (05/16/18 2:34 PM) Globulin [2.7-4.2 g/dL] 3.2 g/dL 11 (05/16/18 2:34 PM) Glucose Lvl [70-99 mg/dL] 291 mg/dL *HI* (05/16/18 2:34 PM) Hct [36.0-48.0 %] 35.1 % *LOW* (05/16/18 2:34 PM) Hgb [12.0-16.0 g/dL] 13.9 g/dL (05/16/18 2:34 PM) Potassium Lvl [3.5-5.1 mEq/L] 4.1 mEq/L (05/16/18 2:34 PM) Lymphocytes [20.0-40.0 %] 34.3 % (05/16/18 2:34 PM) MCH [27.0-31.0 pg] 36.0 pg *HI* (05/16/18 2:34 PM) MCHC [32.0-36.0 g/dL] 39.8 g/dL *HI* (05/16/18 2:34 PM) MCV [80.0-98.0 fL] 90.5 fL (05/16/18 2:34 PM) Monocytes [2.0-12.0 %] 6.2 % (05/16/18 2:34 PM) MPV [7.4-10.4 fL] 9.7 fL (05/16/18 2:34 PM) Sodium Lvl [135-145 mEq/L] 139 mEq/L (05/16/18 2:34 PM) Platelet [133-450 K/CMM] 287 K/CMM (05/16/18 2:34 PM) Segs [45.0-75.0 %] 55.0 % (05/16/18 2:34 PM) Total Protein [6.4-8.4 g/dL] 6.6 g/dL 12 (05/16/18 2:34 PM) RBC [4.20-5.40 M/CMM] 3.88 M/CMM *LOW* (05/16/18 2:34 PM) RBC Morph Normal (05/16/18 2:34 PM) RDW [11.5-14.5 %] 13.5 % (05/16/18 2:34 PM) S Preg [Negative] Negative *NA* (05/16/18 2:34 PM) Bili Total [0.2-1.3 mg/dL] <0.1 mg/dL 13 (05/16/18 2:34 PM) Troponin-I [0.00-0.40 ng/mL] <0.02 ng/mL (05/16/18 2:34 PM) WBC [3.7-10.4 K/CMM] 7.6 K/CMM (05/16/18 2:34 PM) 1Result Comment: The eGFR is calculated [...] be multiplied by the estimated BMI.2Result Comment: Marked lipemic sample. Tests were performed by lipoclear with 1.2 dilution.3Result Comment: Marked lipemic sample. Tests were performed by lipoclear with 1.2 dilution.4Result Comment: Marked lipemic sample. Tests were performed by lipoclear with 1.2 dilution.5Result Comment: Marked lipemic sample. Tests were performed by lipoclear with 1.2 dilution.6Result Comment: Marked lipemic sample. Tests were performed by lipoclear with 1.2 dilution.7Result Comment: Marked lipemic sample. Tests were performed by lipoclear with 1.2 dilution.8Result Comment: Marked lipemic sample. Tests were performed by lipoclear with 1.2 dilution. Marked lipemic sample. Tests were performed by lipoclear with 1.2 dilution.9Result Comment: Marked lipemic sample. Tests were performed by lipoclear with 1.2 dilution.10Result Comment: Marked lipemic sample. Tests were performed by lipoclear with 1.2 dilution.11Result Comment: Marked lipemic sample. Tests were performed by lipoclear with 1.2 dilution.12Result Comment: Marked lipemic sample. Tests were performed by lipoclear with 1.2 dilution.13Result Comment: Marked lipemic sample. Tests were performed by lipoclear with 1.2 dilution. Immunizations Given and Recorded Vaccine Date Status [...]
--- OUTSIDE RECORDS SUMMARY | 2018-12-17 19:01 | XMS REPORT | Summary of Care ---
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 (Final) - MCC (current) use of antithrombotics/antiplatelets (Final) - 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 (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) use of insulin (Final) - Obesity, unspecified (Final) - Body mass index (BMI) 35.0-35.9, adult (Final) - Hyperlipidemia, unspecified (Final) - Essential (primary) hypertension (Final) - Type 2 diabetes mellitus with hyperglycemia (Final) - Dorsalgia, unspecified (Final) - Nontoxic goiter, unspecified (Final) - Type 2 diabetes mellitus with diabetic autonomic (poly)neuropathy (Final) - Gastroparesis (Final) - Metabolic syndrome (Final) - Chronic pain syndrome (Final) - Coma scale, best motor response, obeys commands, at arrival to emergency department (Final) - Coma scale, eyes open, spontaneous, at arrival to emergency department (Final) - Coma scale, best verbal response, oriented, at arrival to emergency department ( Final) - Discharge Disposition: Home or Self Care Attending Physician: Rogerio Garcia MD Admitting Physician: Rogerio Garcia MD Vital Signs Most recent to oldest 1 2 3 [Reference Range]: Height 165.1 cm (03/10/18 8:50 AM) Temperature Oral [96.4-99.1 98.8 DegF 99.0 DegF 98.4 DegF DegF] (03/13/18 4:00 PM) (03/13/18 12:00 PM) (03/13/18 8:00 AM) Blood Pressure 93/56 mmHg 111/65 mmHg 134/87 mmHg [90-140/60-90 mmHg] (03/13/18 4:00 PM) (03/13/18 12:00 PM) (03/13/18 8:00 AM ) Respiratory Rate [14-20 16 BRMIN 16 BRMIN 16 BRMIN BRMIN] (03/13/18 4:00 PM) (03/13/18 12:00 PM) (03/13/18 8:00 AM) Peripheral Pulse Rate 85 bpm 88 bpm 88 bpm [60-100 bpm] (03/13/18 4:00 PM) (03/13/18 12:00 PM) (03/13/18 8:00 AM) Weight 95.909 kg 95 kg 95 kg (03/10/18 8:50 AM) (03/10/18 6:15 AM) (03/10/18 6:15 AM) Body Mass Index 35.19 m2 (03/10/18 8:50 AM) Problem List Condition Effective Dates Status Health Status Informant CAD - Coronary artery Resolved disease(Confirmed) Chronic pain syndrome1 02/07/14 Active DM - Diabetes mellitus(Confirmed) Active FH: Diabetes mellitus2 12/17/13 Active HTN - Hypertension(Confirmed) Active Hyperlipidemia(Confirmed) Active Insertion of coronary artery Resolved stent(Confirmed)3 Stroke(Confirmed) Active Stroke(Confirmed) Resolved 1Data migrated from [facility] on 12/16/14.2Data migrated from [facility] on 12/16/14.3x 2- May 2015 Allergies, Adverse Reactions, Alerts No Known Medication Allergies Medications aspirin 81 mg tablet, enteric coated 81 mg, 1 tab, Route: PO, Drug form: ECTAB, Daily, Dosing Weight 95, kg, Start date: 03/10/18 9:00:00CST, Duration: 30 day, Stop date: 04/08/18 9:00:00 [employer] Notes: Do not crush or chew.(Same As: Ecotrin) Start Date: 03/10/18 Stop Date: 03/13/18 Status: DiscontinuedDextrose 50% Syringe 25 gm, 50 mL, Route: IVP, Drug Form: INJ, Dosing Weight 95.909, kg, PRN, PRN Blood Glucose Results, Start date: 03/10/18 9:06:00 [employer], Duration: 30 day, Stop date: 04/09/18 9:05:00 [employer] Start Date: 03/10/18 Stop Date: 03/10/18 Status: DiscontinuedDextrose 50% Syringe 12.5 gm, 25 mL, Route: IVP, Drug Form: INJ, Dosing Weight 95.909, kg, PRN, PRN Blood Glucose Results, Start date: 03/10/18 9:06:00 [employer], Duration: 30 day, Stop date: 04/09/18 9:05:00 [employer] Start Date: 03/10/18 Stop Date: 03/10/18 Status: DiscontinuedDextrose 50% Syringe 25 gm, 50 mL, Route: IVP, Drug Form: INJ, Dosing Weight 95.909, kg, PRN, PRN Blood Glucose Results, Start date: 03/10/18 13:00:00 [employer], Duration: 30 day, Stop date: 04/09/18 12:59:00 [employer] Start Date: 03/10/18 Stop Date: 03/13/18 Status: DiscontinuedDextrose 50% Syringe 12.5 gm, 25 mL, Route: IVP, Drug Form: INJ, Dosing Weight 95.909, kg, PRN, PRN Blood Glucose Results, Start date: 03/10/18 13:00:00 [employer], Duration: 30 day, Stop date: 04/09/18 12:59:00 [employer] Start Date: 03/10/18 Stop Date: 03/13/18 Status: Discontinuedgabapentin 100 mg oral capsule 100 mg, 1 cap, Route: PO, Drug form: CAP, TID, Dosing Weight 95.909, kg, Start date: 03/10/18 16:00:00 [employer], Duration: 30 day, Stop date: 04/09/18 8:00:00 [employer] Notes: (Same as: Neurontin) Start Date: 03/10/18 Stop Date: 03/13/18 Status: Discontinuedglucagon 1 mg, Route: IM, Drug form: PDR/INJ, PRN, Dosing Weight 95.909, kg, PRN Blood Glucose Results, Startdate: 03/10/18 9:06:00 [employer], Duration: 30 day, Stop date: 04/09/18 9:05:00 [employer] Start Date: 03/10/18 Stop Date: 03/10/18 Status: Discontinuedglucagon 1 mg, Route: IM, Drug form: PDR/INJ, PRN, Dosing Weight 95.909, kg, PRN Blood Glucose Results, Startdate: 03/10/18 13:00:00 [employer], Duration: 30 day, Stop date: 04/09/18 12:59:00 [employer] Start Date: 03/10/18 Stop Date: 03/13/18 Status: DiscontinuedHumalog 34 unit, 0.34 mL, Route: SUB-Q, Drug form: SOLN, TID-Before Meals, Start date: 03/10/18 11:30:00 [employer], Duration: 30 day, Stop date: 04/09/18 7:30:00 [employer] Notes: (Same as: Humalog ) Roll in palms of hands gently; Do not shake ` vigorously. "Single PatientUse Only " WASTE: F/P - Black; E - Municipal Trash Bin Stable for 28 days at room temperature.Expires in days from Date Start Date: 03/10/18 Stop Date: 03/13/18 Status: Discontinuedinsulin aspart 30 unit, 0.3 mL, Route: SUB-Q, Drug form: SOLN, TID-Before Meals, Dosing Weight 95.909, kg, Priority: Routine, Start date: 03/10/18 11:30:00 [employer], Duration: 30 day, Stop date: 04/09/18 7:30:00 [employer] Notes: Non-Formulary Drug(Same as: NovoLOG)WASTE: F/P - Black; E - Municipal Trash Bin Start Date: 03/10/18 Stop Date: 03/10/18 Status: Deletedinsulin glargine 100 units/mL subcutaneous solution 35 unit, 0.35 mL, Route: SUB-Q, Drug form: SOLN, Daily, Dosing Weight 95.909, kg , Priority: NOW, Start date: 03/10/18 9:02:00 [employer], Duration: 30 day, Stop date: 04/09/18 9:00:00 [employer] Notes: (Same as: Lantus)Do not hold insulin without contacting prescriberWASTE: F/P - Black; E - Municipal Trash Bin "single patient use only" Start Date: 03/10/18 Stop Date: 03/13/18 Status: Discontinuedinsulin lispro 2 unit, 0.02 mL, Route: SUB-Q, Drug form: SOLN, TID-Before Meals, Dosing Weight 95.909, kg, PRN Blood Glucose Results, Start date: 03/10/18 9:06:00 [employer], Duration: 30 day, Stop date: 04/09/18 9:05:00 [employer] Notes: (Same as: Humalog ) Roll in palms of hands gently; Do not shake ` vigorously. "Single PatientUse Only " WASTE: F/P - Black; E - Municipal Trash Bin Stable for 28 days at room temperature.Expires in days from Date Start Date: 03/10/18 Stop Date: 03/10/18 Status: Discontinuedinsulin lispro 1 unit, 0.01 mL, Route: SUB-Q, Drug form: SOLN, TID-Before Meals, Dosing Weight 95.909, kg, PRN Blood Glucose Results, Start date: 03/10/18 9:06:00 [employer], Duration: 30 day, Stop date: 04/09/18 9:05:00 [employer] Notes: (Same as: Humalog ) Roll in palms of hands gently; Do not shake ` vigorously. "Single PatientUse Only " WASTE: F/P - Black; E - Municipal Trash Bin Stable for 28 days at room temperature.Expires in days from Date Start Date: 03/10/18 Stop Date: 03/10/18 Status: Discontinuedinsulin lispro 5 unit, 0.05 mL, Route: SUB-Q, Drug form: SOLN, TID-Before Meals, Dosing Weight 95.909, kg, PRN Blood Glucose Results, Start date: 03/10/18 9:06:00 [employer], Duration: 30 day, Stop date: 04/09/18 9:05:00 [employer] Notes: (Same as: Humalog ) Roll in palms of hands gently; Do not shake ` vigorously. "Single PatientUse Only " WASTE: F/P - Black; E - Municipal Trash Bin Stable for 28 days at room temperature.Expires in days from Date Start Date: 03/10/18 Stop Date: 03/10/18 Status: Discontinuedinsulin lispro 4 unit, 0.04 mL, Route: SUB-Q, Drug form: SOLN, TID-Before Meals, Dosing Weight 95.909, kg, PRN Blood Glucose Results, Start date: 03/10/18 9:06:00 [employer], Duration: 30 day, Stop date: 04/09/18 9:05:00 [employer] Notes: (Same as: Humalog ) Roll in palms of hands gently; Do not shake ` vigorously. "Single PatientUse Only " WASTE: F/P - Black; E - Municipal Trash Bin Stable for 28 days at room temperature.Expires in days from Date Start Date: 03/10/18 Stop Date: 03/10/18 Status: Discontinuedinsulin lispro 3 unit, 0.03 mL, Route: SUB-Q, Drug form: SOLN, TID-Before Meals, Dosing Weight 95.909, kg, PRN Blood Glucose Results, Start date: 03/10/18 9:06:00 [employer], Duration: 30 day, Stop date: 04/09/18 9:05:00 [employer] Notes: (Same as: Humalog ) Roll in palms of hands gently; Do not shake ` vigorously. "Single PatientUse Only " WASTE: F/P - Black; E - Municipal Trash Bin Stable for 28 days at room temperature.Expires in days from Date Start Date: 03/10/18 Stop Date: 03/10/18 Status: Discontinuedinsulin lispro 1 unit, 0.01 mL, Route: SUB-Q, Drug form: SOLN, Bedtime, Dosing Weight 95.909, kg, PRN Blood GlucoseResults, Start date: 03/10/18 13:00:00 [employer], Duration: 30 day, Stop date: 04/09/18 12:59:00 [employer] Notes: (Same as: Humalog ) Roll in palms of hands gently; Do not shake ` vigorously. "Single PatientUse Only " WASTE: F/P - Black; E - Municipal Trash Bin Stable for 28 days at room temperature.Expires in days from Date Start Date: 03/10/18 Stop Date: 03/13/18 Status: Discontinuedinsulin lispro 2 unit, 0.02 mL, Route: SUB-Q, Drug form: SOLN, Bedtime, Dosing Weight 95.909, kg, PRN Blood GlucoseResults, Start date: 03/10/18 13:00:00 [employer], Duration: 30 day, Stop date: 04/09/18 12:59:00 [employer] Notes: (Same as: Humalog ) Roll in palms of hands gently; Do not shake ` vigorously. "Single PatientUse Only " WASTE: F/P - Black; E - Municipal Trash Bin Stable for 28 days at room temperature.Expires in days from Date Start Date: 03/10/18 Stop Date: 03/13/18 Status: Discontinuedinsulin lispro 3 unit, 0.03 mL, Route: SUB-Q, Drug form: SOLN, Bedtime, Dosing Weight 95.909, kg, PRN Blood GlucoseResults, Start date: 03/10/18 13:00:00 [employer], Duration: 30 day, Stop date: 04/09/18 12:59:00 [employer] Notes: (Same as: Humalog ) Roll in palms of hands gently; Do not shake ` vigorously. "Single PatientUse Only " WASTE: F/P - Black; E - Municipal Trash Bin Stable for 28 days at room temperature.Expires in days from Date Start Date: 03/10/18 Stop Date: 03/13/18 Status: Discontinuedinsulin lispro 4 unit, 0.04 mL, Route: SUB-Q, Drug form: SOLN, Bedtime, Dosing Weight 95.909, kg, PRN Blood GlucoseResults, Start date: 03/10/18 13:00:00 [employer], Duration: 30 day, Stop date: 04/09/18 12:59:00 [employer] Notes: (Same as: Humalog ) Roll in palms of hands gently; Do not shake ` vigorously. "Single PatientUse Only " WASTE: F/P - Black; E - Municipal Trash Bin Stable for 28 days at room temperature.Expires in days from Date Start Date: 03/10/18 Stop Date: 03/13/18 Status: Discontinuedinsulin lispro 3 unit, 0.03 mL, Route: SUB-Q, Drug form: SOLN, TID-Before Meals, Dosing Weight 95.909, kg, PRN Blood Glucose Results, Start date: 03/10/18 13:00:00 [employer], Duration: 30 day, Stop date: 04/09/18 12:59:00 [employer] Notes: (Same as: Humalog ) Roll in palms of hands gently; Do not shake ` vigorously. "Single PatientUse Only " WASTE: F/P - Black; E - Municipal Trash Bin Stable for 28 days at room temperature.Expires in days from Date Start Date: 03/10/18 Stop Date: 03/13/18 Status: Discontinuedinsulin lispro 6 unit, 0.06 mL, Route: SUB-Q, Drug form: SOLN, TID-Before Meals, Dosing Weight 95.909, kg, PRN Blood Glucose Results, Start date: 03/10/18 13:00:00 [employer], Duration: 30 day, Stop date: 04/09/18 12:59:00 [employer] Notes: (Same as: Humalog ) Roll in palms of hands gently; Do not shake ` vigorously. "Single PatientUse Only " WASTE: F/P - Black; E - Municipal Trash Bin Stable for 28 days at room temperature.Expires in days from Date Start Date: 03/10/18 Stop Date: 03/13/18 Status: Discontinuedinsulin lispro 9 unit, 0.09 mL, Route: SUB-Q, Drug form: SOLN, TID-Before Meals, Dosing Weight 95.909, kg, PRN Blood Glucose Results, Start date: 03/10/18 13:00:00 [employer], Duration: 30 day, Stop date: 04/09/18 12:59:00 [employer] Notes: (Same as: Humalog ) Roll in palms of hands gently; Do not shake ` vigorously. "Single PatientUse Only " WASTE: F/P - Black; E - Municipal Trash Bin Stable for 28 days at room temperature.Expires in days from Date Start Date: 03/10/18 Stop Date: 03/13/18 Status: Discontinuedinsulin lispro 12 unit, 0.12 mL, Route: SUB-Q, Drug form: SOLN, TID-Before Meals, Dosing Weight 95.909, kg, PRN Blood Glucose Results, Start date: 03/10/18 13:00:00 [employer] , Duration: 30 day, Stop date: 04/09/18 12:59:00CST Notes: (Same as: Humalog ) Roll in palms of hands gently; Do not shake ` vigorously. "Single PatientUse Only " WASTE: F/P - Black; E - Municipal Trash Bin Stable for 28 days at room temperature.Expires in days from Date Start Date: 03/10/18 Stop Date: 03/13/18 Status: Discontinuedinsulin lispro 15 unit, 0.15 mL, Route: SUB-Q, Drug form: SOLN, TID-Before Meals, Dosing Weight 95.909, kg, PRN Blood Glucose Results, Start date: 03/10/18 13:00:00 [employer] , Duration: 30 day, Stop date: 04/09/18 12:59:00CST Notes: (Same as: Humalog ) Roll in palms of hands gently; Do not shake ` vigorously. "Single PatientUse Only " WASTE: F/P - Black; E - Municipal Trash Bin Stable for 28 days at room temperature.Expires in days from Date Start Date: 03/10/18 Stop Date: 03/13/18 Status: DiscontinuedInsulin regular 10 unit, Route: SUB-Q, ONCE, Dosing Weight 95.909, kg, Priority: STAT, Start date: 03/10/18 3:37:00 [employer], Stop date: 03/10/18 3:37:00 [employer] Start Date: 03/10/18 Stop Date: 03/10/18 Status: Completedisosorbide mononitrate 120 mg oral tablet, extended release 120 mg=1 tab, PO, QAM, # 90 tab, 1 Refill(s) Start Date: 03/13/18 Status: Orderedisosorbide mononitrate extended release 120 mg, 4 tab, Route: PO, Drug form: ERTAB, QAM, Dosing Weight 95.909, kg, Priority: NOW, Start date: 03/10/18 9:04:00 [employer], Duration: 30 day, Stop date: 9:00:00 [employer] Notes: (Same as:Imdur)"Do Not Crush" Take on empty stomach/ full glass of water. Do not crush Start Date: 03/10/18 Stop Date: 03/13/18 Status: DiscontinuedLasix 20 mg oral tablet 20 mg, 1 tab, Route: PO, Drug form: TAB, Daily, Dosing Weight 95.909, kg, Start date: 03/11/18 9:00:00 [employer], Duration: 30 day, Stop date: 04/09/18 9:00:00 [employer] Notes: (Same as: Lasix) May cause GI upset. Give with food or milk. Start Date: 03/11/18 Stop Date: 03/13/18 Status: DiscontinuedLipitor 80 mg, 2 tab, Route: PO, Drug form: TAB, Bedtime, Dosing Weight 95.909, kg, Start date: 03/10/18 21:00:00 [employer], Duration: 30 day, Stop date: 04/08/18 21:00: 00 [employer] Notes: (Same as: Lipitor) Start Date: 03/10/18 Stop Date: 03/13/18 Status: Discontinuedlisinopril 40 mg, 2 tab, Route: PO, Drug form: TAB, Daily, Dosing Weight 95.909, kg, Priority: NOW, Start date:03/10/18 9:02:00 [employer], Duration: 30 day, Stop date: 9:00:00 [employer] Notes: (Same as: Prinivil Zestril) Start Date: 03/10/18 Stop Date: 03/13/18 Status: Discontinuedmorphine Sulfate 4 mg, 1 mL, Route: IV, Drug form: SOLN, Q4H, Dosing Weight 95.909, kg, PRN as needed for chest pain,Start date: 03/11/18 20:26:00 [employer], Duration: 30 day, Stop date: 04/10/18 20:25:00 [employer] Notes: (Same as:MORPhine Sulfate) Start Date: 03/11/18 Stop Date: 03/13/18 Status: Discontinuednitroglycerin SL Tab 0.4 mg, 1 tab, Route: SL, Drug form: TAB, Q5Min, Dosing Weight 95, kg, PRN Chest Pain, Start date: 03/10/18 6:49:00 [employer], Duration: 3 doses or times, Stop date: Limited # of times Notes: (Same as:Nitroquick, Nitrostat)"Do Not Crush" Sublingual tablet Start Date: 03/10/18 Stop Date: 03/13/18 Status: DiscontinuedNorco 10/325 oral tablet 1 tab, Route: PO, Drug Form: TAB, Dosing Weight 95.909, kg, Q6H, PRN Pain Score 4-6, Start date: 03/12/18 18:51:00 [employer], Duration: 1 day, Stop date: 03/13/18 18: 50:00 [employer] Notes: Do not exceed 4gm/day of acetaminophen. (Same as: [place] 325/10) Start Date: 03/12/18 Stop Date: 03/13/18 Status: DiscontinuedNorco 5/325 oral tablet 1 tab, Route: PO, Drug Form: TAB, Dosing Weight 95.909, kg, Q6H, PRN Pain Score 1-3, Start date: 03/12/18 12:10:00 [employer], Duration: 30 day, Stop date: 04/11/18 12 :09:00 [employer] Notes: (Same as: [place] 325/5) Do not exceed 4gm/day of acetaminophen. Start Date: 03/12/18 Stop Date: 03/12/18 Status: DiscontinuedNorco 7.5/325 oral tablet 1 tab, Route: PO, Drug Form: TAB, Dosing Weight 95.909, kg, Q4H, PRN Pain Score 4-6, Start date: 03/12/18 14:05:00 [employer], Duration: 30 day, Stop date: 04/11/18 14 :04:00 [employer] Notes: Same as [place] 325-7.5mg Do not exceed 4gm/day of acetaminophen. Start Date: 03/12/18 Stop Date: 03/12/18 Status: DiscontinuedOccupational Therapy See Instructions, MISC, ONCALL, Evaluate and Treat 2-3 times per week for2-4 weeks, # 1 unit, 0 Refill(s) Start Date: 03/12/18 Status: OrderedOmnipaque 350 injectable solution 100 mL, Route: IVP, Drug Form: SOLN, Dosing Weight 95.909, kg, ONCALL, GFR > 45 mL/min, Start date: 03/11/18 8:00:00 [employer], Duration: 1 doses or times Notes: (same as:Omnipaque 350).WASTE: F/P - Black; E - Municipal Trash Bin Start Date: 03/11/18 Stop Date: 03/11/18 Status: CompletedOmnipaque 350 injectable solution 100 mL, Route: IVP, Drug Form: SOLN, Dosing Weight 95.909, kg, ONCALL, GFR > 45 mL/min, Start date: 03/10/18 11:00:00 [employer], Duration: 1 doses or times Notes: (same as:Omnipaque 350).WASTE: F/P - Black; E - Municipal Trash Bin Start Date: 03/10/18 Stop Date: 03/11/18 Status: CompletedPhysical Therapy See Instructions, MISC, ONCALL, Evaluate and Treat 2-3 times per week for 4-6 weeks, # 1 ea, 0 Refill(s) Start Date: 03/12/18 Status: OrderedPlavix 75 mg, 1 tab, Route: PO, Drug form: TAB, Daily, Dosing Weight 95.909, kg, Priority: NOW, Start date:03/10/18 9:02:00 [employer], Duration: 30 day, Stop date: 9:00:00 [employer] Notes: (Same As: Plavix) Start Date: 03/10/18 Stop Date: 03/13/18 Status: Discontinuedplease update pt's height, weight, and allergies please update pt's height, weight, and allergies, reminder, Drug form: MISC, Route: MISC, Q15Min, 03/10/18 8:30:00 [employer], Duration: 30 day, Stop date: 8:15:00 [employer] Start Date: 03/10/18 Stop Date: 03/10/18 Status: DeletedPROzac 40 mg, 4 cap, Route: PO, Drug form: CAP, QPM, Dosing Weight 95.909, kg, Start date: 03/10/18 17:00:00 [employer], Duration: 30 day, Stop date: 04/08/18 17:00:00 [employer] Notes: (Same as: Prozac) Start Date: 03/10/18 Stop Date: 03/13/18 Status: DiscontinuedSaline Flush 0.9% 10 ml, Route: IVP, Drug Form: INJ, Dosing Weight 95, kg, Q12H, Start date: 03/10 9:00:00 [employer], Duration: 30 day, Stop date: 04/08/18 21:00:00 [employer] Notes: (Same as: BD Posiflush) Start Date: 03/10/18 Stop Date: 03/13/18 Status: DiscontinuedSaline Flush 0.9% 10 ml, Route: IVP, Drug Form: INJ, Dosing Weight 95, kg, PRN, PRN Line Flush, Start date: 03/10/18 6:49:00 [employer], Duration: 30 day, Stop date: 04/09/18 6:48:00 [employer] Notes: (Same as: BD Posiflush) Start Date: 03/10/18 Stop Date: 03/11/18 Status: DiscontinuedSaline Flush 0.9% 10 ml, Route: IVP, Drug Form: INJ, Dosing Weight 95.909, kg, PRN, PRN Line Flush , Start date: 03/10/18 14:41:00 [employer], Duration: 30 day, Stop date: 04/09/18 14:40 :00 [employer] Notes: (Same as: BD Posiflush) Start Date: 03/10/18 Stop Date: 03/13/18 Status: DiscontinuedSaline Flush 0.9% 10 ml, Route: IVP, Drug Form: INJ, Dosing Weight 95.909, kg, Q12H, Start date: 03/10/18 21:00:00 [employer], Duration: 30 day, Stop date: 04/09/18 9:00:00 [employer] Notes: (Same as: BD Posiflush) Start Date: 03/10/18 Stop Date: 03/11/18 Status: DiscontinuedToprol-XL 25 mg oral tablet, extended release 25 mg, 1 tab, Route: PO, Drug form: ERTAB, Daily, Priority: NOW, Start date: 9:04:00 [employer], Duration: 30 day, Stop date: 04/09/18 9:00:00 [employer] Notes: (Same as: Toprol XL) Do Not Crush Start Date: 03/10/18 Stop Date: 03/13/18 Status: DiscontinuedToprol-XL 25 mg oral tablet, extended release 25 mg=1 tab, PO, Daily, # 30 tab, 2 Refill(s) Start Date: 03/13/18 Status: Orderedtramadol 50 mg oral tablet 50 mg, 1 tab, Route: PO, Drug form: TAB, ONCE, Dosing Weight 95.909, kg, Priority: STAT, Start date:03/10/18 4:16:00 [employer], Stop date: 03/10/18 4:16:00 [employer] Notes: Not to exceed 400mg/day. (Same As: Ultram) Start Date: 03/10/18 Stop Date: 03/10/18 Status: CompletedTylenol 650 mg, 2 tab, Route: PO, Drug form: TAB, ONCE, Dosing Weight 95.909, kg, Priority: STAT, Start date: 03/10/18 4:16:00 [employer], Stop date: 03/10/18 4:16:00 [employer] Notes: Do not exceed 4 gm/day. (Same as: Tylenol) Start Date: 03/10/18 Stop Date: 03/10/18 Status: CompletedTylenol 1,000 mg, 2 tab, Route: PO, Drug form: TAB, Q6H, Dosing Weight 95.909, kg, PRN Pain Score 6-10, Start date: 03/11/18 16:11:00 [employer], Duration: 30 day, Stop date : 04/10/18 16:10:00 [employer] Notes: Max acetaminophen 4000 mg/day (4 gm/day). (Same as: Tylenol Extra Strength) Start Date: 03/11/18 Stop Date: 03/13/18 Status: DiscontinuedTylenol 1,000 mg, 2 tab, Route: PO, Drug form: TAB, Q6H, Dosing Weight 95.909, kg, PRN Pain Score 6-10, Start date: 03/10/18 13:01:00 [employer], Duration: 1 day, Stop date: 03/11/18 13:00:00 [employer] Notes: Max acetaminophen 4000 mg/day (4 gm/day). (Same as: Tylenol Extra Strength) Start Date: 03/10/18 Stop Date: 03/11/18 Status: CompletedVascepa 1 g oral capsule 2 gm=2 cap, PO, BID, # 60 cap, 3 Refill(s), Pharmacy: [id number] Start Date: 03/13/18 Status: OrderedZyPREXA 10 mg, 1 tab, Route: PO, Drug form: TAB, Daily, Dosing Weight 95.909, kg, Start date: 03/11/18 9:00:00 [employer], Duration: 30 day, Stop date: 04/09/18 9:00:00 [employer] Notes: (Same as: ZyPREXA) Start Date: 03/11/18 Stop Date: 03/13/18 Status: Discontinued Results Most recent to oldest 1 2 3 [Reference Range]: Neutrophils # [1.5-8.1 5.5 K/CMM 5.0 K/CMM K/CMM] (03/10/18 11:42 AM) (03/10/18 2:23 AM) Lymphocytes # [1.0-5.5 2.5 K/CMM 3.3 K/CMM K/CMM] (03/10/18 11:42 AM) (03/10/18 2:23 AM) Monocytes # [0.0-0.8 K/CMM] 0.5 K/CMM 0.7 K/CMM (03/10/18 11:42 AM) (03/10/18 2:23 AM) Eosinophils # [0.0-0.5 0.3 K/CMM 0.3 K/CMM K/CMM] (03/10/18 11:42 AM) (03/10/18 2:23 AM) Basophils # [0.0-0.2 K/CMM] 0.1 K/CMM 0.1 K/CMM (03/10/18 11:42 AM) (03/10/18 2:23 AM) Cardiolipin IgA [<=19.9 0.5 APL-U/mL APL-U/mL] (03/11/18 3:22 PM) F5 Leiden PCR Negative (03/11/18 3:22 PM) F5 Leiden Intrp FACTOR V LEIDEN: Negative INTERPRETATION: Molecular analysis for the Factor V Leiden, [id number] mutation was negative. Other causes of activated protein C resistance and hereditary forms of venous thrombosis are not ruled out. Final diagnosis requires correlation with clinical history and other pertinent laboratory findings. Where appropriate, medical consultation and/or genetic counseling should be offered to inform and explain the risk implications and genetic implications of these test results. ASSAY LIMITATIONS: The assay uses the FDA-cleared Karen Factor V Leiden IVD(Poymerase chain reaction/FRET detection)kit, Karen [employer]aw[employer] LC Instrument and the Karen LightCycler 1.2 Instrument. A 222-bp fragment of Fact or V gene (FV) containing the Factor V Leiden sequence is amplified in the assay. The assay is designed to detect the G [id number] mutation only. Other causes of activated protein C resistance and hereditary forms of venous thrombosis are not ruled out. However,the melting curve analysis may implicate the presence of possible rare mutations at positions 1689 , 1692 and 1696. (Further testing will be recomme nded in the report). A minimum detection level is 202 copies of Factor V Leiden per reaction. The level of agreement between the Factor V Leiden Kit and sequence analysis was 99.4%. The test result must be interpreted along with the patient's clinical history and relevant laboratory data. This assay has been validated by [facility]. *NA* (03/11/18 3:22 PM) eGFR 92 mL/min/1.73m2 1 75 mL/min/1.73m2 2 *NA* *NA* (03/10/18 11:42 AM) (03/10/18 2:23 AM) UDS Note See Note (03/10/18 11:50 PM) Cardiolipin IgG [<=19.9 <1.6 GPL-U/mL GPL-U/mL] (03/11/18 3:22 PM) Cardiolipin IgM [<=19.9 1.1 MPL-U/mL MPL-U/mL] (03/11/18 3:22 PM) U Amph Scr [Negative] Negative *NA* (03/10/18 11:50 PM) AGAP [10.0-20.0 mEq/L] 15.7 mEq/L 16.8 mEq/L (03/10/18 11:42 AM) (03/10/18 2:23 AM) AT III Func [77-140 %] 105 % (03/11/18 3:22 PM) U Merline Scr [Negative] Negative *NA* (03/10/18 11:50 PM) Basophils [0.0-1.0 %] 1.1 % 0.8 % *HI* (03/10/18 2:23 AM) (03/10/18 11:42 AM) U Benzodiaz Scr [Negative] Positive *ABN* (03/10/18 11:50 PM) Homocyst Tot [3.7-13.9 9.3 uMol/L uMol/L] (03/11/18 3:22 PM) BUN [7-22 mg/dL] 9 mg/dL 10 mg/dL (03/10/18 11:42 AM) (03/10/18 2:23 AM) Calcium Lvl [8.5-10.5 8.7 mg/dL 8.7 mg/dL mg/dL] (03/10/18 11:42 AM) (03/10/18 2:23 AM) CHD Risk [3.90-5.80] 9.55 9.57 *HI* *HI* (03/11/18 6:56 AM) (03/10/18 5:03 PM) Chol [<=199 mg/dL] 277 mg/dL 287 mg/dL *HI* *HI* (03/11/18 6:56 AM) (03/10/18 5:03 PM) Chloride Lvl [95-109 mEq/L] 101 mEq/L 99 mEq/L (03/10/18 11:42 AM) (03/10/18 2:23 AM) CO2 [24-32 mEq/L] 26 mEq/L 26 mEq/L (03/10/18 11:42 AM) (03/10/18 2:23 AM) U Cocaine Scr [Negative] Negative *NA* (03/10/18 11:50 PM) Creatinine Lvl [0.50-1.40 0.86 mg/dL 1.02 mg/dL mg/dL] (03/10/18 11:42 AM) (03/10/18 2:23 AM) Eosinophils [0.0-4.0 %] 3.0 % 3.1 % (03/10/18 11:42 AM) (03/10/18 2:23 AM) Factor VIII [50-242 %] 227 % (03/11/18 3:22 PM) Glucose Lvl [70-99 mg/dL] 407 mg/dL 3 447 mg/dL 4 *CRIT* *CRIT* (03/10/18 11:42 AM) (03/10/18 2:23 AM) Hct [36.0-48.0 %] 36.4 % 37.7 % (03/10/18 11:42 AM) (03/10/18 2:23 AM) HDL [>=61 mg/dL] 29 mg/dL 30 mg/dL *LOW* *LOW* (03/11/18 6:56 AM) (03/10/18 5:03 PM) Hgb [12.0-16.0 g/dL] 12.8 g/dL 13.0 g/dL (03/10/18 11:42 AM) (03/10/18 2:23 AM) Hgb A1C [<=5.6 %] 13.1 % *HI* (03/10/18 5:03 PM) Potassium Lvl [3.5-5.1 4.7 mEq/L 3.8 mEq/L mEq/L] (03/10/18 11:42 AM) (03/10/18 2:23 AM) LDL (Calculated) [<=99 See Note mg/dL 5 See Note mg/dL 6 mg/dL] *NA* *NA* (03/11/18 6:56 AM) (03/10/18 5:03 PM) Lymphocytes [20.0-40.0 %] 27.9 % 35.0 % (03/10/18 11:42 AM) (03/10/18 2:23 AM) MCH [27.0-31.0 pg] 31.0 pg 31.1 pg (03/10/18 11:42 AM) *HI* (03/10/18 2:23 AM) MCHC [32.0-36.0 g/dL] 35.1 g/dL 34.6 g/dL (03/10/18 11:42 AM) (03/10/18 2:23 AM) MCV [80.0-98.0 fL] 88.4 fL 90.1 fL (03/10/18 11:42 AM) (03/10/18 2:23 AM) Monocytes [2.0-12.0 %] 6.1 % 7.2 % (03/10/18 11:42 AM) (03/10/18 2:23 AM) MPV [7.4-10.4 fL] 10.3 fL 10.3 fL (03/10/18 11:42 AM) (03/10/18 2:23 AM) Sodium Lvl [135-145 mEq/L] 138 mEq/L 138 mEq/L (03/10/18 11:42 AM) (03/10/18 2:23 AM) U Opiate Scr [Negative] Positive *ABN* (03/10/18 11:50 PM) U Phencyclidine Scr Negative [Negative] *NA* (03/10/18 11:50 PM) Platelet [133-450 K/CMM] 260 K/CMM 250 K/CMM (03/10/18 11:42 AM) (03/10/18 2:23 AM) Segs [45.0-75.0 %] 61.9 % 53.9 % (03/10/18 11:42 AM) (03/10/18 2:23 AM) Protein C Func [72-147 %] 137 % (03/11/18 3:22 PM) Protein S Func [54-137 %] 99 % (03/11/18 3:22 PM) RBC [4.20-5.40 M/CMM] 4.12 M/CMM 4.19 M/CMM *LOW* *LOW* (03/10/18 11:42 AM) (03/10/18 2:23 AM) RDW [11.5-14.5 %] 14.7 % 15.0 % *HI* *HI* (03/10/18 11:42 AM) (03/10/18 2:23 AM) U Cannab Scr [Negative] Negative *NA* (03/10/18 11:50 PM) Trig [<=149 mg/dL] 575 mg/dL 770 mg/dL *HI* *HI* (03/11/18 6:56 AM) (03/10/18 5:03 PM) Troponin-I [0.00-0.40 <0.02 ng/mL <0.02 ng/mL <0.02 ng/mL ng/mL] (03/10/18 11:42 AM) (03/10/18 6:19 AM) (03/10/18 2:23 AM) UA Bacteria [None Seen Occasional /HPF /HPF] *NA* (03/10/18 11:50 PM) UA Bili [Negative] Negative *NA* (03/10/18 11:50 PM) UA Blood [Negative] Moderate *ABN* (03/10/18 11:50 PM) UA Color [Yellow] Yellow *NA* (03/10/18 11:50 PM) UA Glucose [Negative] 250 *ABN* (03/10/18 11:50 PM) UA Ketones [Negative] Trace *ABN* (03/10/18 11:50 PM) UA Leuk Est [Negative] Negative (03/10/18 11:50 PM) UA Nitrite [Negative] Negative (03/10/18 11:50 PM) UA pH [5.0-8.0] 6.5 (03/10/18 11:50 PM) UA Protein [Negative] Trace *ABN* (03/10/18 11:50 PM) UA RBC [0-2 /HPF] 8 /HPF *HI* (03/10/18 11:50 PM) UA Spec Grav [<=1.030] 1.010 (03/10/18 11:50 PM) UA Sq Epi [Few /LPF] Many /LPF *ABN* (03/10/18 11:50 PM) UA Turbidity [Clear] Clear (03/10/18 11:50 PM) UA Urobilinogen [0.1-1.0 0.2 EU/dL EU/dL] (03/10/18 11:50 PM) UA WBC [0-5 /HPF] 5 /HPF (03/10/18 11:50 PM) WBC [3.7-10.4 K/CMM] 8.9 K/CMM 9.4 K/CMM (03/10/18 11:42 AM) (03/10/18 2:23 AM) VLDL See Note 7 See Note 8 *NA* *NA* (03/11/18 6:56 AM) (03/10/18 5:03 PM) 1Result Comment: The eGFR is calculated [...] young, healthy individualsthe eGFR will be >90 mL/min/1.73m2. [...] estimated BMI.3Result Comment: Critical Result(s) called to Mami Reynolds at 03/10/2018 12:17 by Bridgette Le. Read back OK.4Result Comment: Critical Result(s) called to RN. Pily Perry at 03/10/2018 03:26 by naga. Readback OK.5Result Comment: LDL cholesterol cannot be calculated due to very high triglycerides (>400 mg/dL).Recommend Direct LDL if clinically indicated.6Result Comment: LDL cholesterol cannot be calculated due to very high triglycerides (>400 mg/dL).Recommend Direct LDL if clinically indicated.7Result Comment: VLDL - Cholesterol level cannot be accurately calculated due to very high triglycerides (>400 mg/dL).8Result Comment: VLDL - Cholesterol level cannot be accurately calculated due to very high triglycerides (>400 mg/dL). Immunizations Given and Recorded Vaccine Date Status [...] No entered on: 05/16/18 Assessment and Plan Extracted from: Title: Clinical Document Author: Charan Connolly MD Date: 03/13/18 Hospitalist Discharge Note [facility] Charan Connolly MD ADMIT DATE: 03/11/2018 DISCHARGE [...] hypertension, diabetes mellitus who initially presented to [facility] complaining of chest pain. An acute cardiac [...] d/c kevin HURTADO time: 36 min Extracted from: Title: Clinical Document Author: Jose Prado MD Date: 03/10/18 [facility] Initial Cardiology H&P [...]
--- OUTSIDE RECORDS SUMMARY | 2018-12-17 19:01 | XMS REPORT | Summary of Care ---
:1970 Author Organization [facility] Address [address] [place], [place] [address]- Encounter HQ Daryl_kati(FIN) [id number] Date(s): 02/03/18 - 02/05/18 [facility] [address] [place] [address]- [phone] Encounter Diagnosis Chest pain, unspecified (Final) - Atherosclerotic heart disease of [place] coronary artery with unstable angina pectoris (Final) - 02/12/18 Hyperlipidemia, unspecified (Final) - Essential (primary) hypertension (Final) - Obesity, unspecified (Final) - Type 2 diabetes mellitus without complications (Final) - Personal history of transient ischemic attack (TIA), and cerebral infarction without residual deficits (Final) - Presence of coronary angioplasty implant and graft (Final) - half-way (current) use of insulin (Final) - Discharge Disposition: Home or Self Care Attending Physician: Berto Yao MD Admitting Physician: Berto Yao MD Vital Signs Most recent to oldest 1 2 3 [Reference Range]: Height 165.1 cm (02/04/18 4:53 AM) Temperature Oral [96.4-99.1 98.2 DegF 98.0 DegF 98.2 DegF DegF] (02/05/18 3:51 PM) (02/05/18 3:04 PM) (02/05/18 1:09 PM) Blood Pressure 94/59 mmHg 97/51 mmHg 91/57 mmHg [90-140/60-90 mmHg] (02/05/18 3:51 PM) (02/05/18 3:04 PM) (02/05/18 2:39 PM) Respiratory Rate [14-20 17 BRMIN 16 BRMIN 17 BRMIN BRMIN] (02/05/18 1:09 PM) (02/05/18 11:27 AM) (02/05/18 7:31 AM) Peripheral Pulse Rate 65 bpm 69 bpm 64 bpm [60-100 bpm] (02/05/18 3:51 PM) (02/05/18 3:04 PM) (02/05/18 2:39 PM) Weight 95.909 kg (02/04/18 4:53 AM) Body Mass Index 35.19 m2 (02/04/18 4:53 AM) Problem List Condition Effective Dates Status Health Status Informant CAD - Coronary artery Resolved disease(Confirmed) Chronic pain syndrome1 02/07/14 Active DM - Diabetes mellitus(Confirmed) Active FH: Diabetes mellitus2 12/17/13 Active HTN - Hypertension(Confirmed) Active Hyperlipidemia(Confirmed) Active Insertion of coronary artery Resolved stent(Confirmed)3 Stroke(Confirmed) Active Stroke(Confirmed) Resolved 1Data migrated from [employer] on 12/16/14.2Data migrated from [employer] on 12/16/14.3x 2- May 2015 Allergies, Adverse Reactions, Alerts No Known Medication Allergies Medications aspirin 324 mg, 4 tab, Route: PO, Drug form: CHEWTAB, ONCE, Dosing Weight 96.818, kg, Priority: STAT, Start date: 02/03/18 19:29:00 CDT, Stop date: 02/03/18 19:29:00 CDT Notes: Take with food. Start Date: 02/03/18 Stop Date: 02/03/18 Status: Completedaspirin 81 mg tablet, enteric coated 81 mg, 1 tab, Route: PO, Drug form: ECTAB, Daily, Dosing Weight 96.818, kg, Start date: 02/04/18 9:00:00 CDT, Duration: 30 day, Stop date: 03/05/18 9:00:00 COURTESY CAR DRIVER Notes: Do not crush or chew.(Same As: Ecotrin) Start Date: 02/04/18 Stop Date: 02/05/18 Status: DiscontinuedfentaNYL 25 microgram, 0.5 mL, Route: IVP, Drug form: INJ, ONCE, Dosing Weight 96.818, kg , Priority: STAT, Start date: 02/03/18 19:31:00 CDT, Stop date: 02/03/18 19:31: 00 CDT Notes: (Same as: Sublimaze) Preservative free. Start Date: 02/03/18 Stop Date: 02/03/18 Status: Completedgabapentin 100 mg oral capsule 100 mg, 1 cap, Route: PO, Drug form: CAP, TID, Dosing Weight 96.818, kg, Start date: 02/04/18 9:00:00 CDT, Duration: 30 day, Stop date: 03/05/18 17:00:00 COURTESY CAR DRIVER Notes: (Same as: Neurontin) Start Date: 02/04/18 Stop Date: 02/05/18 Status: DiscontinuedHumalog 30 unit, 0.3 mL, Route: SUB-Q, Drug form: SOLN, TID-Before Meals, Start date: 7:30:00 CDT, Duration: 30 day, Stop date: 03/05/18 16:30:00 COURTESY CAR DRIVER Notes: (Same as: Humalog ) Roll in palms of hands gently; Do not shake ` vigorously. "Single PatientUse Only " WASTE: F/P - Black; E - Municipal Trash Bin Stable for 28 days at room temperature.Expires in days from Date Start Date: 02/04/18 Stop Date: 02/05/18 Status: DiscontinuedImdur 120 mg, 4 tab, Route: PO, Drug form: ERTAB, QAM, Dosing Weight 96.818, kg, Start date: 02/04/18 6:30:00 CDT, Duration: 30 day, Stop date: 03/05/18 6:30:00 COURTESY CAR DRIVER Notes: (Same as:Imdur)"Do Not Crush" Take on empty stomach/ full glass of water. Do not crush Start Date: 02/04/18 Stop Date: 02/05/18 Status: Discontinuedinsulin glargine 40 unit, 0.4 mL, Route: SUB-Q, Drug form: SOLN, Daily, Start date: 02/04/18 9:00 :00 CDT, Duration: 30 day, Stop date: 03/05/18 9:00:00 COURTESY CAR DRIVER Notes: (Same as: Lantus)Do not hold insulin without contacting prescriberWASTE: F/P - Black; E - Municipal Trash Bin "single patient use only" Start Date: 02/04/18 Stop Date: 02/05/18 Status: DiscontinuedLasix 20 mg oral tablet 20 mg, 1 tab, Route: PO, Drug form: TAB, Daily, Dosing Weight 96.818, kg, Start date: 02/04/18 9:00:00 CDT, Duration: 30 day, Stop date: 03/05/18 9:00:00 COURTESY CAR DRIVER Notes: (Same as: Lasix) May cause GI upset. Give with food or milk. Start Date: 02/04/18 Stop Date: 02/04/18 Status: DiscontinuedLipitor 80 mg, 2 tab, Route: PO, Drug form: TAB, Bedtime, Dosing Weight 96.818, kg, Start date: 02/04/18 21:00:00 CDT, Duration: 30 day, Stop date: 03/05/18 21:00: 00 COURTESY CAR DRIVER Notes: (Same as: Lipitor) Start Date: 02/04/18 Stop Date: 02/05/18 Status: Discontinuedlisinopril 40 mg, 2 tab, Route: PO, Drug form: TAB, Daily, Dosing Weight 96.818, kg, Start date: 02/04/18 9:00:00 CDT, Duration: 30 day, Stop date: 03/05/18 9:00:00 COURTESY CAR DRIVER Notes: (Same as: Prinivil, Zestril) Start Date: 02/04/18 Stop Date: 02/05/18 Status: Discontinuedmorphine Sulfate 2 mg, 1 mL, Route: IVP, Drug form: INJ, Q2H, Dosing Weight 95.909, kg, PRN Chest Pain, Start date: 02/04/18 8:19:00 CDT, Duration: 30 day, Stop date: 03/06 8:18:00 COURTESY CAR DRIVER Notes: (Same as:MORPhine Sulfate) Start Date: 02/04/18 Stop Date: 02/05/18 Status: Discontinuednitroglycerin 2% ointment 0.5 inch, Route: TOP, Drug Form: OINT, Dosing Weight 96.818, kg, ONCE, STAT, Start date: 02/03/18 19:31:00 CDT, Stop date: 02/03/18 19:31:00 CDT Notes: 1 gram is approximately 1 inch of nitroglycerin ointment (20 mg NTG per gram) (Same as:Nitro-Bid) Start Date: 02/03/18 Stop Date: 02/03/18 Status: Completednitroglycerin SL Tab 0.4 mg, 1 tab, Route: SL, Drug form: TAB, Q5Min, Dosing Weight 96.818, kg, PRN Chest Pain, Start date: 02/04/18 4:27:00 CDT, Duration: 3 doses or times, Stop date: Limited # of times Notes: (Same as:Nitroquick, Nitrostat)"Do Not Crush" Sublingual tablet Start Date: 02/04/18 Stop Date: 02/05/18 Status: DiscontinuedNitrostat 0.4 mg sublingual tablet 0.4 mg, 1 tab, Route: SL, Drug form: TAB, Q5Min, Dosing Weight 96.818, kg, PRN Chest Pain, Start date: 02/04/18 4:28:00 CDT, Duration: 30 day, Stop date: 03/06 3:27:00 COURTESY CAR DRIVER Notes: (Same as:Nitroquick, Nitrostat)"Do Not Crush" Sublingual tablet Start Date: 02/04/18 Stop Date: 02/05/18 Status: DiscontinuedNovoLOG FlexPen 100 units/mL subcutaneous solution NovoLOG FlexPen 100 units/mL subcutaneous solution, 30 unit, Route: SUB-Q, TID- Before Meals, 02/04/18 7:30:00 CDT, Duration: 30 day, Stop date: 03/05/18 16:30: 00 COURTESY CAR DRIVER Start Date: 02/04/18 Stop Date: 02/04/18 Status: DeletedPlavix 75 mg, 1 tab, Route: PO, Drug form: TAB, Daily, Dosing Weight 96.818, kg, Start date: 02/04/18 9:00:00 CDT, Duration: 30 day, Stop date: 03/05/18 9:00:00 COURTESY CAR DRIVER Notes: (Same As: Plavix) Start Date: 02/04/18 Stop Date: 02/05/18 Status: DiscontinuedPROzac 40 mg, 4 cap, Route: PO, Drug form: CAP, QPM, Dosing Weight 96.818, kg, Start date: 02/04/18 17:00:00 CDT, Duration: 30 day, Stop date: 03/05/18 17:00:00 COURTESY CAR DRIVER Notes: (Same as: Prozac) Start Date: 02/04/18 Stop Date: 02/05/18 Status: DiscontinuedSaline Flush 0.9% 10 mL, Route: IVP, Drug Form: INJ, Dosing Weight 96.818, kg, PRN, PRN Line Flush , Start date: 02/03/18 19:29:00 CDT, Duration: 30 day, Stop date: 03/05/18 18:28 :00 COURTESY CAR DRIVER Notes: (Same as: BD Posiflush) Start Date: 02/03/18 Stop Date: 02/05/18 Status: DiscontinuedSaline Flush 0.9% 10 ml, Route: IVP, Drug Form: INJ, Dosing Weight 96.818, kg, PRN, PRN Line Flush , Start date: 02/04/18 4:27:00 CDT, Duration: 30 day, Stop date: 03/06/18 3:26: 00 COURTESY CAR DRIVER Notes: (Same as: BD Posiflush) Start Date: 02/04/18 Stop Date: 02/05/18 Status: DiscontinuedSaline Flush 0.9% 10 ml, Route: IVP, Drug Form: INJ, Dosing Weight 96.818, kg, Q12H, Start date: 02/04/18 9:00:00 CDT,Duration: 30 day, Stop date: 03/05/18 21:00:00 COURTESY CAR DRIVER Notes: (Same as: BD Posiflush) Start Date: 02/04/18 Stop Date: 02/05/18 Status: DiscontinuedToprol-XL 25 mg oral tablet, extended release 25 mg, 1 tab, Route: PO, Drug form: ERTAB, Daily, Start date: 02/04/18 9:00:00 CDT, Duration: 30 day, Stop date: 03/05/18 9:00:00 COURTESY CAR DRIVER Notes: (Same as: Toprol XL) Do Not Crush Start Date: 02/04/18 Stop Date: 02/05/18 Status: Discontinuedtramadol 50 mg oral tablet 50 mg, 1 tab, Route: PO, Drug form: TAB, Q6H, Dosing Weight 96.818, kg, PRN Pain Score 1-3, Start date: 02/04/18 4:28:00 CDT, Duration: 30 day, Stop date: 03/06/18 4:27:00 COURTESY CAR DRIVER Notes: Not to exceed 400mg/day. (Same As: Ultram) Start Date: 02/04/18 Stop Date: 02/05/18 Status: DiscontinuedTresiba FlexTouch 100 units/mL subcutaneous solution Tresiba FlexTouch 100 units/mL subcutaneous solution, 40 unit, Route: SUB-Q, Daily, 02/04/18 9:00:00CDT, Duration: 30 day, Stop date: 03/05/18 9:00:00 COURTESY CAR DRIVER Start Date: 02/04/18 Stop Date: 02/04/18 Status: DeletedZofran ODT 4 mg, 1 tab, Route: PO, Drug form: TABDIS, TID, Dosing Weight 96.818, kg, PRN Nausea, Start date: 02/04/18 4:28:00 CDT, Duration: 30 day, Stop date: 03/06/18 4:27:00 COURTESY CAR DRIVER Notes: (Same as: Zofran ODT) Start Date: 02/04/18 Stop Date: 02/05/18 Status: DiscontinuedZyPREXA 10 mg, 1 tab, Route: PO, Drug form: TAB, Daily, Dosing Weight 96.818, kg, Start date: 02/04/18 9:00:00 CDT, Duration: 30 day, Stop date: 03/05/18 9:00:00 COURTESY CAR DRIVER Notes: (Same as: ZyPREXA) Start Date: 02/04/18 Stop Date: 02/05/18 Status: Discontinued Results Most recent to oldest 1 2 3 [Reference Range]: Neutrophils # [1.5-8.1 K/CMM] 4.1 K/CMM (02/03/18 7:37 PM) Lymphocytes # [1.0-5.5 K/CMM] 2.3 K/CMM (02/03/18 7:37 PM) Monocytes # [0.0-0.8 K/CMM] 0.6 K/CMM (02/03/18 7:37 PM) Eosinophils # [0.0-0.5 K/CMM] 0.2 K/CMM (02/03/18 7:37 PM) Basophils # [0.0-0.2 K/CMM] 0.1 K/CMM (02/03/18 7:37 PM) BNP [<=100 pg/mL] 17 pg/mL (02/03/18 7:37 PM) eGFR 55 mL/min/1.73m2 1 *NA* (02/03/18 7:37 PM) A/G Ratio [0.7-1.6] 0.7 (02/03/18:37 PM) Albumin Lvl [3.5-5.0 g/dL] 3.2 g/dL *LOW* (02/03/18:37 PM) Alk Phos [39-136 unit/L] 92 unit/L (02/03/18:37 PM) ALT [0-65 unit/L] 20 unit/L (02/03/18:37 PM) AGAP [10.0-20.0 mEq/L] 19.5 mEq/L (02/03/18:37 PM) AST [0-37 unit/L] 15 unit/L (02/03/18:37 PM) B/C Ratio [6-25] 10 (02/03/18 7:37 PM) Basophils [0.0-1.0 %] 1.0 % (02/03/18:37 PM) BUN [7-22 mg/dL] 13 mg/dL (02/03/18 7:37 PM) Calcium Lvl [8.5-10.5 mg/dL] 8.2 mg/dL *LOW* (02/03/18 7:37 PM) CHD Risk [3.90-5.80] 10.37 *HI* (02/04/18 4:59 AM) Chol [<=199 mg/dL] 363 mg/dL *HI* (02/04/18 4:59 AM) Total CK [12-191 unit/L] 275 unit/L *HI* (02/03/18 7:37 PM) Chloride Lvl [95-109 mEq/L] 102 mEq/L (02/03/18 7:37 PM) CO2 [24-32 mEq/L] 21 mEq/L *LOW* (02/03/18 7:37 PM) Creatinine Lvl [0.50-1.40 1.31 mg/dL mg/dL] (02/03/18 7:37 PM) Eosinophils [0.0-4.0 %] 2.5 % (02/03/18 7:37 PM) Globulin [2.7-4.2 g/dL] 4.3 g/dL *HI* (02/03/18 7:37 PM) Glucose Lvl [70-99 mg/dL] 337 mg/dL *HI* (02/03/18 7:37 PM) Hct [36.0-48.0 %] 35.9 % *LOW* (02/03/18 7:37 PM) HDL [>=61 mg/dL] 35 mg/dL *LOW* (02/04/18 4:59 AM) Hgb [12.0-16.0 g/dL] 12.2 g/dL (02/03/18 7:37 PM) INR [0.85-1.17] 0.98 (02/03/18 7:37 PM) Potassium Lvl [3.5-5.1 mEq/L] 3.5 mEq/L (02/03/18 7:37 PM) LDL (Calculated) [<=99 mg/dL] 273 mg/dL *HI* (02/04/18 4:59 AM) Lymphocytes [20.0-40.0 %] 31.8 % (02/03/18 7:37 PM) MCH [27.0-31.0 pg] 30.5 pg (02/03/18 7:37 PM) MCHC [32.0-36.0 g/dL] 33.9 g/dL (02/03/18 7:37 PM) MCV [80.0-98.0 fL] 89.9 fL (02/03/18 7:37 PM) Monocytes [2.0-12.0 %] 8.2 % (02/03/18 7:37 PM) MPV [7.4-10.4 fL] 9.8 fL (02/03/18 7:37 PM) Sodium Lvl [135-145 mEq/L] 139 mEq/L (02/03/18 7:37 PM) Platelet [133-450 K/CMM] 238 K/CMM (02/03/18 7:37 PM) Segs [45.0-75.0 %] 56.5 % (02/03/18 7:37 PM) Total Protein [6.4-8.4 g/dL] 7.5 g/dL (02/03/18 7:37 PM) PT [12.0-14.7 seconds] 13.0 seconds (02/03/18 7:37 PM) PTT [22.9-35.8 seconds] 28.2 seconds (02/03/18 7:37 PM) RBC [4.20-5.40 M/CMM] 3.99 M/CMM *LOW* (02/03/18 7:37 PM) RDW [11.5-14.5 %] 15.0 % *HI* (02/03/18 7:37 PM) Bili Total [0.2-1.3 mg/dL] 0.2 mg/dL (02/03/18 7:37 PM) Trig [<=149 mg/dL] 276 mg/dL *HI* (02/04/18 4:59 AM) Troponin-I [0.00-0.40 ng/mL] <0.02 ng/mL <0.02 ng/mL <0.02 ng/mL (02/04/18 9:25 AM) (02/04/18 4:59 AM) (02/03/18 7:37 PM) WBC [3.7-10.4 K/CMM] 7.2 K/CMM (02/03/18 7:37 PM) VLDL 55 *NA* (02/04/18 4:59 AM) 1Result Comment: The eGFR is calculated [...] should be multiplied by the estimated BMI. Immunizations Given and Recorded Vaccine Date Status [...] Plan Extracted from: Title: Clinical Document Author: Berto Yao MD Date: 02/05/18 Hospitalist Discharge Note [facility] Berto Yao MD Patient's cath was reviewed with car sales associate today [facility] has cleared patient for discharge home with outpatient management We will plan discharge home today DISCHARGE NOTE: Condition: improved Activity: as tolerated Diet: cardiac Follow up: pcp 1 week Medications: see d/c kevin HURTADO time: 35 min Extracted from: Title: Clinical Document Author: Michael Dwyer MD Date: 02/05/18 Cardiology [facility] Impression: CAD: Patent 3.5 x 12 and [...] at current doses Follow-up with her outpatient car sales associate Subjective: Patient seen and examined. No chest [...] <0.02 (FEB 04) <0.02 (FEB 04) <0.02 (FEB 03) Total [...] Flush 0.9%) 10 ml IVP Q12H Extracted from: Title: Clinical Document Author: Michael Dwyer MD Date: [...] to have outpatient MPI with her outpatient car sales associate, Dr. Lawrence but failed to do so. [...] Chronic back pain Obesity ?? Noncompliant Extracted from: Title: General Admission H&P * Author: Sean Gleason [...]
--- OUTSIDE RECORDS SUMMARY | 2018-12-17 19:02 | XMS REPORT | Summary of Care ---
:1970 Author Organization [facility] Address [address] [place], [place] [address]- Encounter HQ Daryl_kati(FIN) [phone] Date(s): 09/20/17 - 09/20/17 [facility] [address] [place] [address]- [phone] Discharge Disposition: Other Healthcare Facility Attending Physician: Nate Kong DO Vital Signs Most recent to oldest 1 2 3 [Reference Range]: Height 165.1 cm (09/20/17 3:59 PM) Temperature Oral [96.4-99.1 99 DegF DegF] (09/20/17 3:59 PM) Blood Pressure [90-140/60-90 160/97 mmHg 170/98 mmHg 190/98 mmHg mmHg] *HI* *HI* *HI* (09/20/17 7:45 PM) (09/20/17 6:44 PM) (09/20/17 3:59 PM) Respiratory Rate [14-20 BRMIN] 20 BRMIN 18 BRMIN 20 BRMIN (09/20/17 7:45 PM) (09/20/17 6:44 PM) (09/20/17 3:59 PM) Peripheral Pulse Rate [60-100 93 bpm 111 bpm bpm] (09/20/17 6:44 PM) *HI* (09/20/17 3:59 PM) Weight 95.909 kg (09/20/17 3:59 PM) Body Mass Index 35.19 m2 (09/20/17 3:59 PM) Problem List Condition Effective Dates Status Health Status Informant CAD - Coronary artery Resolved disease(Confirmed) Chronic pain syndrome1 02/07/14 Active DM - Diabetes mellitus(Confirmed) Active FH: Diabetes mellitus2 8/26/14 Active HTN - Hypertension(Confirmed) Active Hyperlipidemia(Confirmed) Active Insertion of coronary artery Resolved stent(Confirmed)3 Stroke(Confirmed) Active Stroke(Confirmed) Resolved 1Data migrated from [employer] on 12/16/14.2Data migrated from [employer] on 12/16/14.3x 2- May 2015 Allergies, Adverse Reactions, Alerts Substance Reaction Severity Status NKDA Active Medications Dextrose 50% Syringe 12.5 gm, 25 mL, Route: IVP, Drug Form: INJ, Dosing Weight 95.909, kg, PRN, PRN Blood Glucose Results, Start date: 09/20/17 18:01:00 CDT, Duration: 30 day, Stop date: 10/20/17 18:00:00 CDT Start Date: 09/20/17 Stop Date: 09/20/17 Status: DiscontinuedDextrose 50% Syringe 25 gm, 50 mL, Route: IVP, Drug Form: INJ, Dosing Weight 95.909, kg, PRN, PRN Blood Glucose Results, Start date: 09/20/17 18:01:00 CDT, Duration: 30 day, Stop date: 10/20/17 18:00:00 CDT Start Date: 09/20/17 Stop Date: 09/20/17 Status: DiscontinuedDilaudid 1 mg, 1 mL, Route: IVP, Drug form: SOLN, ONCE, Dosing Weight 95.909, kg, Priority: STAT, Start date:09/20/17 19:00:00 CDT, Stop date: 09/20/17 19:00:00 CDT Notes: (Same as: Dilaudid) Start Date: 09/20/17 Stop Date: 09/20/17 Status: OrderedfentaNYL 25 microgram, 0.5 mL, Route: IVP, Drug form: INJ, ONCE, Dosing Weight 95.909, kg , Priority: STAT, Start date: 09/20/17 16:48:00 CDT, Stop date: 09/20/17 16:48: 00 CDT Notes: (Same as: Sublimaze) Preservative free. Start Date: 09/20/17 Stop Date: 09/20/17 Status: CompletedhydrALAZINE 10 mg, 0.5 mL, Route: IV, Drug form: INJ, ONCE, Dosing Weight 95.909, kg, Start date: 09/20/17 17:04:00 CDT, Stop date: 09/20/17 17:04:00 CDT Notes: (Same as: Apresoline)Push over 5 minutes Start Date: 09/20/17 Stop Date: 09/20/17 Status: CompletedInsulin regular 100 unit + Sodium Chloride 0.9% (titrate) 99 mL 99 mL, Rate: Start Insulin Drip Per ICU Protocol, Dosing Weight 95.909, kg, Route: IVPB, Total Volume: 100, Start Date: 09/20/17 18:01:00 CDT, Duration: 30 day, Stop date: 10/20/17 18:00:00 CDT, Replace Every: 24 hr Notes: (Same as: Humulin R and NovoLIN R)WASTE: F/P - Black; E - InhibOx Trash Bin (Do not shake) Start Date: 09/20/17 Stop Date: 09/20/17 Status: DiscontinuedNS (Bolus) IV 2,000 mL, 1,000 ml/hr, Infuse Over: 1 hr, Route: IV, ONCE, Priority: STAT, Dosing Weight 95.909 kg, Start date: 09/20/17 18:05:00 CDT, Stop date: 09/20/17 18:05:00 CDT Start Date: 09/20/17 Stop Date: 09/20/17 Status: CompletedSaline Flush 0.9% 10 mL, Route: IVP, Drug Form: INJ, Dosing Weight 95.909, kg, PRN, PRN Line Flush , Start date: 09/20/17 16:02:00 CDT, Duration: 30 day, Stop date: 10/20/17 16:01 :00 CDT Notes: (Same as: BD Posiflush) Start Date: 09/20/17 Stop Date: 09/20/17 Status: Discontinued Results ELECTROLYTES Most recent to oldest [Reference Range]: 1 Sodium Lvl [135-145 mEq/L] 134 mEq/L *LOW* (09/20/17 4:42 PM) Potassium Lvl [3.5-5.1 mEq/L] 4.1 mEq/L (09/20/17 4:42 PM) Chloride Lvl [95-109 mEq/L] 100 mEq/L (09/20/17 4:42 PM) CO2 [24-32 mEq/L] 25 mEq/L (09/20/17 4:42 PM) AGAP [10.0-20.0 mEq/L] 13.1 mEq/L (09/20/17 4:42 PM) CHEM PANEL Most recent to oldest [Reference Range]: 1 Creatinine Lvl [0.50-1.40 mg/dL] 1.20 mg/dL (09/20/17 4:42 PM) eGFR 61 mL/min/1.73m2 1 *NA* (09/20/17 4:42 PM) BUN [7-22 mg/dL] 10 mg/dL (09/20/17 4:42 PM) B/C Ratio [6-25] 8 (09/20/17 4:42 PM) Glucose Lvl [70-99 mg/dL] 579 mg/dL 2 *CRIT* (09/20/17 4:42 PM) Total Protein [6.4-8.4 g/dL] 6.7 g/dL (09/20/17 4:42 PM) Albumin Lvl [3.5-5.0 g/dL] 3.0 g/dL *LOW* (09/20/17 4:42 PM) Globulin [2.7-4.2 g/dL] 3.7 g/dL (09/20/17 4:42 PM) A/G Ratio [0.7-1.6] 0.8 (09/20/17 4:42 PM) Calcium Lvl [8.5-10.5 mg/dL] 8.1 mg/dL *LOW* (09/20/17 4:42 PM) ALT [0-65 unit/L] 28 unit/L (09/20/17 4:42 PM) AST [0-37 unit/L] 26 unit/L (09/20/17 4:42 PM) Alk Phos [39-136 unit/L] 123 unit/L (09/20/17 4:42 PM) Bili Total [0.2-1.3 mg/dL] 0.2 mg/dL (09/20/17 4:42 PM) 1Result Comment: The eGFR is calculated [...] estimated BMI.2Result Comment: Critical Result(s) called to Sachi Phillips at 09/20/2017 17:26 by karri. Read back OK.CARDIAC ENZYMES Most recent to oldest [Reference Range]: 1 Total CK [12-191 unit/L] 109 unit/L (09/20/17 4:42 PM) CK MB [0.5-3.6 ng/mL] <1.0 ng/mL (09/20/17 4:42 PM) CK MB Index [0.0-2.5] <0.9 (09/20/17 4:42 PM) Troponin-I [0.00-0.40 ng/mL] <0.02 ng/mL (09/20/17 4:42 PM) URINE AND STOOL Most recent to oldest [Reference Range]: 1 UA Turbidity [Clear] Clear (09/20/17 4:42 PM) UA Color Colorless *NA* (09/20/17 4:42 PM) UA pH [5.0-8.0] 5.0 (09/20/17 4:42 PM) UA Spec Grav [<=1.030] 1.026 (09/20/17 4:42 PM) UA Glucose [Negative mg/dL] 500 mg/dL *ABN* (09/20/17 4:42 PM) UA Blood [Negative] Negative (09/20/17 4:42 PM) UA Ketones [Negative mg/dL] Negative mg/dL *NA* (09/20/17 4:42 PM) UA Protein [Negative mg/dL] Negative mg/dL (09/20/17 4:42 PM) UA Urobilinogen [0.1-1.0 mg/dL] <=1.0 mg/dL *NA* (09/20/17 4:42 PM) UA Bili [Negative] Negative *NA* (09/20/17 4:42 PM) UA Leuk Est [Negative] Negative (09/20/17 4:42 PM) UA Nitrite [Negative] Negative (09/20/17 4:42 PM) UA WBC [0-5 /HPF] <1 /HPF (09/20/17 4:42 PM) UA RBC [0-2 /HPF] 1 /HPF (09/20/17 4:42 PM) UA Sq Epi [Few /LPF] Occasional /LPF *NA* (09/20/17 4:42 PM) HEMATOLOGY Most recent to oldest [Reference Range]: 1 WBC [3.7-10.4 K/CMM] 9.8 K/CMM (09/20/17 4:42 PM) RBC [4.20-5.40 M/CMM] 3.76 M/CMM *LOW* (09/20/17 4:42 PM) Hgb [12.0-16.0 g/dL] 11.6 g/dL *LOW* (09/20/17 4:42 PM) Hct [36.0-48.0 %] 34.0 % *LOW* (09/20/17 4:42 PM) MCV [80.0-98.0 fL] 90.5 fL (09/20/17 4:42 PM) MCH [27.0-31.0 pg] 30.9 pg (09/20/17 4:42 PM) MCHC [32.0-36.0 g/dL] 34.1 g/dL (09/20/17 4:42 PM) RDW [11.5-14.5 %] 14.0 % (09/20/17 4:42 PM) MPV [7.4-10.4 fL] 10.3 fL (09/20/17 4:42 PM) Platelet [133-450 K/CMM] 267 K/CMM (09/20/17 4:42 PM) Segs [45.0-75.0 %] 67.3 % (09/20/17 4:42 PM) Lymphocytes [20.0-40.0 %] 22.7 % (09/20/17 4:42 PM) Monocytes [2.0-12.0 %] 5.0 % (09/20/17 4:42 PM) Eosinophils [0.0-4.0 %] 4.3 % *HI* (09/20/17 4:42 PM) Basophils [0.0-1.0 %] 0.7 % (09/20/17 4:42 PM) Segs-Bands # [1.5-8.1 K/CMM] 6.6 K/CMM (09/20/17 4:42 PM) Lymphocytes # [1.0-5.5 K/CMM] 2.2 K/CMM (09/20/17 4:42 PM) Monocytes # [0.0-0.8 K/CMM] 0.5 K/CMM (09/20/17 4:42 PM) Eosinophils # [0.0-0.5 K/CMM] 0.4 K/CMM (09/20/17 4:42 PM) Basophils # [0.0-0.2 K/CMM] 0.1 K/CMM (09/20/17 4:42 PM) PT [12.0-14.7 seconds] 11.8 seconds *LOW* (09/20/17 6:42 PM) INR [0.85-1.17] 0.87 (09/20/17 6:42 PM) PTT [22.9-35.8 seconds] 24.1 seconds (09/20/17 6:42 PM) Immunizations Given and Recorded Vaccine Date [...] Smoking Cessation Counseling Yes entered on: 09/20/17 Assessment and Plan No data available for this section
--- OUTSIDE RECORDS SUMMARY | 2018-12-17 19:02 | XMS REPORT | Summary of Care ---
:1970 Author Organization [facility] Address [address] [place], [place] [address]- Encounter HQ Daryl_kati(FIN) [id number] Date(s): 08/29/17 - 08/30/17 [facility] [address] [place] [address]- Discharge Disposition: Home or Self Care Attending Physician: Francesca Ordoñez MD Admitting Physician: Francesca Ordoñez MD Vital Signs Most recent to oldest [Reference 1 2 3 Range]: Height 165.1 cm (08/29/17 9:51 PM) Temperature Oral [96.4-99.1 DegF] 98.6 DegF 97.9 DegF 98.4 DegF (08/30/17 7:05 AM) (08/30/17 3:07 AM) (08/29/17 10:56 PM) Blood Pressure [90-140/60-90 131/83 mmHg 118/72 mmHg 150/94 mmHg mmHg] (08/30/17 7:05 AM) (08/30/17 3:07 AM) *HI* (08/29/17 10:56 PM) Respiratory Rate [14-20 BRMIN] 18 BRMIN 17 BRMIN 18 BRMIN (08/30/17 7:05 AM) (08/30/17 3:07 AM) (08/29/17 10:56 PM) Peripheral Pulse Rate [60-100 82 bpm 73 bpm 75 bpm bpm] (08/30/17 7:05 AM) (08/30/17 3:07 AM) (08/29/17 10:56 PM) Weight 100.455 kg 80.455 kg (08/29/17 9:51 PM) (08/29/17 1:35 PM) Body Mass Index 36.85 m2 (08/29/17 9:51 PM) Problem List Condition Effective Dates Status Health Status Informant CAD - Coronary artery Resolved disease(Confirmed) Chronic pain syndrome1 02/07/14 Active DM - Diabetes mellitus(Confirmed) Active FH: Diabetes mellitus2 12/17/13 Active HTN - Hypertension(Confirmed) Active Hyperlipidemia(Confirmed) Active Insertion of coronary artery Resolved stent(Confirmed)3 Stroke(Confirmed) Active Stroke(Confirmed) Resolved 1Data migrated from [employer] on 12/16/14.2Data migrated from [employer] on 12/16/14.3x 2- May 2015 Allergies, Adverse Reactions, Alerts Substance Reaction Severity Status NKDA Active Medications Please update height, weight, allergies on profile Please update height, weight, allergies on profile, ATTN:KIAN, Drug form: MISC , Route: MISC, Q30Min, 08/29/17 21:00:00 CDT, Duration: 30 day, Stop date: 09/28 20:30:00 CDT Start Date: 08/29/17 Stop Date: 08/29/17 Status: Deletedaspirin 324 mg, 4 tab, Route: CHEW, Drug form: CHEWTAB, ONCE, Dosing Weight 80.455, kg, Priority: STAT, Start date: 08/29/17 18:24:00 CDT, Stop date: 08/29/17 18:24:00 CDT Notes: Take with food. Start Date: 08/29/17 Stop Date: 08/29/17 Status: Completedaspirin 81 mg tablet, enteric coated 81 mg, 1 tab, Route: PO, Drug form: ECTAB, Daily, Dosing Weight 80.455, kg, Start date: 08/30/17 9:00:00 CDT, Duration: 30 day, Stop date: 09/28/17 9:00:00 CDT Notes: Do not crush or chew.(Same As: Ecotrin) Start Date: 08/30/17 Stop Date: 08/30/17 Status: DiscontinuedDextrose 50% Syringe 12.5 gm, 25 mL, Route: IVP, Drug Form: INJ, Dosing Weight 80.455, kg, PRN, PRN Blood Glucose Results, Start date: 08/29/17 20:51:00 CDT, Duration: 30 day, Stop date: 09/28/17 20:50:00 CDT Start Date: 08/29/17 Stop Date: 08/30/17 Status: DiscontinuedDextrose 50% Syringe 25 gm, 50 mL, Route: IVP, Drug Form: INJ, Dosing Weight 80.455, kg, PRN, PRN Blood Glucose Results, Start date: 08/29/17 20:51:00 CDT, Duration: 30 day, Stop date: 09/28/17 20:50:00 CDT Start Date: 08/29/17 Stop Date: 08/30/17 Status: Discontinuedgemfibrozil 600 mg, 1 tab, Route: PO, Drug form: TAB, BID, Dosing Weight 80.455, kg, Start date: 08/30/17 9:00:00 CDT, Duration: 30 day, Stop date: 09/28/17 17:00:00 CDT Notes: (Same as: Lopid) Start Date: 08/30/17 Stop Date: 08/30/17 Status: Discontinuedglucagon 1 mg, Route: IM, Drug form: PDR/INJ, PRN, Dosing Weight 80.455, kg, PRN Blood Glucose Results, Startdate: 08/29/17 20:51:00 CDT, Duration: 30 day, Stop date: 09/28/17 20:50:00 CDT Start Date: 08/29/17 Stop Date: 08/30/17 Status: DiscontinuedHumalog 30 unit, 0.3 mL, Route: SUB-Q, Drug form: SOLN, TID-Before Meals, Start date: 7:30:00 CDT, Duration: 30 day, Stop date: 09/28/17 16:30:00 CDT Notes: (Same as: Humalog ) Roll in palms of hands gently; Do not shake ` vigorously. "Single PatientUse Only " WASTE: F/P - Black; E - Municipal Trash Bin Stable for 28 days at room temperature.Expires in days from Date Start Date: 08/30/17 Stop Date: 08/30/17 Status: DiscontinuedhydrALAZINE 10 mg, 0.5 mL, Route: IVP, Drug form: INJ, ONCE, Dosing Weight 80.455, kg, Priority: STAT, Start date: 08/29/17 19:33:00 CDT, Stop date: 08/29/17 19:33:00 CDT Notes: (Same as: Apresoline)Push over 5 minutes Start Date: 08/29/17 Stop Date: 08/29/17 Status: Completedhydrochlorothiazide 25 mg, 2 tab, Route: PO, Drug form: TAB, Daily, Start date: 08/30/17 9:00:00 CDT , Duration: 30 day, Stop date: 09/28/17 9:00:00 CDT Notes: (Same as: Hydrodiuril). Give with food. Start Date: 08/30/17 Stop Date: 08/30/17 Status: Discontinuedhydrochlorothiazide-lisinopril 25 mg-20 mg oral tablet 1 tab, Route: PO, Drug Form: TAB, Dosing Weight 80.455, kg, Daily, Start date: 08/30/17 9:00:00 CDT,Duration: 30 day, Stop date: 09/28/17 9:00:00 CDT Start Date: 08/30/17 Stop Date: 08/29/17 Status: DeletedImdur 120 mg, 4 tab, Route: PO, Drug form: ERTAB, QAM, Dosing Weight 80.455, kg, Start date: 08/30/17 9:00:00 CDT, Duration: 30 day, Stop date: 09/28/17 9:00:00 CDT Notes: (Same as:Imdur)"Do Not Crush" Take on empty stomach/ full glass of water. Do not crush Start Date: 08/30/17 Stop Date: 08/30/17 Status: Discontinuedinsulin glargine 30 unit, 0.3 mL, Route: SUB-Q, Drug form: SOLN, Bedtime, Start date: 08/30/17 21 :00:00 CDT, Duration: 30 day, Stop date: 09/28/17 21:00:00 CDT Notes: (Same as: Lantus)Do not hold insulin without contacting prescriberWASTE: F/P - Black; E - Municipal Trash Bin "single patient use only" Start Date: 08/30/17 Stop Date: 08/30/17 Status: Canceledinsulin lispro 9 unit, 0.09 mL, Route: SUB-Q, Drug form: SOLN, TID-Before Meals, Dosing Weight 80.455, kg, PRN Blood Glucose Results, Start date: 08/29/17 20:51:00 CDT, Duration: 30 day, Stop date: 09/28/17 20:50:00 CDT Notes: (Same as: Humalog ) Roll in palms of hands gently; Do not shake ` vigorously. "Single PatientUse Only " WASTE: F/P - Black; E - Municipal Trash Bin Stable for 28 days at room temperature.Expires in days from Date Start Date: 08/29/17 Stop Date: 08/30/17 Status: Discontinuedinsulin lispro 12 unit, 0.12 mL, Route: SUB-Q, Drug form: SOLN, TID-Before Meals, Dosing Weight 80.455, kg, PRN Blood Glucose Results, Start date: 08/29/17 20:51:00 CDT , Duration: 30 day, Stop date: 09/28/17 20:50:00CDT Notes: (Same as: Humalog ) Roll in palms of hands gently; Do not shake ` vigorously. "Single PatientUse Only " WASTE: F/P - Black; E - Municipal Trash Bin Stable for 28 days at room temperature.Expires in days from Date Start Date: 08/29/17 Stop Date: 08/30/17 Status: Discontinuedinsulin lispro 15 unit, 0.15 mL, Route: SUB-Q, Drug form: SOLN, TID-Before Meals, Dosing Weight 80.455, kg, PRN Blood Glucose Results, Start date: 08/29/17 20:51:00 CDT , Duration: 30 day, Stop date: 09/28/17 20:50:00CDT Notes: (Same as: Humalog ) Roll in palms of hands gently; Do not shake ` vigorously. "Single PatientUse Only " WASTE: F/P - Black; E - Municipal Trash Bin Stable for 28 days at room temperature.Expires in days from Date Start Date: 08/29/17 Stop Date: 08/30/17 Status: Discontinuedinsulin lispro 6 unit, 0.06 mL, Route: SUB-Q, Drug form: SOLN, TID-Before Meals, Dosing Weight 80.455, kg, PRN Blood Glucose Results, Start date: 08/29/17 20:51:00 CDT, Duration: 30 day, Stop date: 09/28/17 20:50:00 CDT Notes: (Same as: Humalog ) Roll in palms of hands gently; Do not shake ` vigorously. "Single PatientUse Only " WASTE: F/P - Black; E - Municipal Trash Bin Stable for 28 days at room temperature.Expires in days from Date Start Date: 08/29/17 Stop Date: 08/30/17 Status: Discontinuedinsulin lispro 3 unit, 0.03 mL, Route: SUB-Q, Drug form: SOLN, TID-Before Meals, Dosing Weight 80.455, kg, PRN Blood Glucose Results, Start date: 08/29/17 20:51:00 CDT, Duration: 30 day, Stop date: 09/28/17 20:50:00 CDT Notes: (Same as: Humalog ) Roll in palms of hands gently; Do not shake ` vigorously. "Single PatientUse Only " WASTE: F/P - Black; E - Municipal Trash Bin Stable for 28 days at room temperature.Expires in days from Date Start Date: 08/29/17 Stop Date: 08/30/17 Status: Discontinuedinsulin lispro 5 unit, 0.05 mL, Route: SUB-Q, Drug form: SOLN, TID-Before Meals, Dosing Weight 80.455, kg, Start date: 08/30/17 7:30:00 CDT, Duration: 30 day, Stop date: 09/28 16:30:00 CDT Notes: (Same as: Humalog ) Roll in palms of hands gently; Do not shake ` vigorously. "Single PatientUse Only " WASTE: F/P - Black; E - Municipal Trash Bin Stable for 28 days at room temperature.Expires in days from Date Start Date: 08/30/17 Stop Date: 08/30/17 Status: DiscontinuedLasix 20 mg oral tablet 20 mg, 1 tab, Route: PO, Drug form: TAB, Daily, Dosing Weight 80.455, kg, Start date: 08/30/17 9:00:00 CDT, Duration: 30 day, Stop date: 09/28/17 9:00:00 CDT Notes: (Same as: Lasix) May cause GI upset. Give with food or milk. Start Date: 08/30/17 Stop Date: 08/30/17 Status: DiscontinuedLevemir FlexPen 30 unit, Route: SUB-Q, Drug form: SOLN, Bedtime, Dosing Weight 80.455, kg, Start date: 08/30/17 21:00:00 CDT, Duration: 30 day, Stop date: 09/28/17 21:00: 00 CDT Start Date: 08/30/17 Stop Date: 08/29/17 Status: DeletedLipitor 80 mg, 2 tab, Route: PO, Drug form: TAB, Bedtime, Dosing Weight 80.455, kg, Start date: 08/30/17 21:00:00 CDT, Duration: 30 day, Stop date: 09/28/17 21:00: 00 CDT Notes: (Same as: Lipitor) Start Date: 08/30/17 Stop Date: 08/30/17 Status: Canceledlisinopril 20 mg, 1 tab, Route: PO, Drug form: TAB, Daily, Start date: 08/30/17 9:00:00 CDT , Duration: 30 day, Stop date: 09/28/17 9:00:00 CDT Notes: (Same as: Prinivil, Zestril) Start Date: 08/30/17 Stop Date: 08/30/17 Status: DiscontinuedmetFORMIN 1,000 mg, 2 tab, Route: PO, Drug form: TAB, BID, Dosing Weight 80.455, kg, Start date: 08/30/17 9:00:00 CDT, Duration: 30 day, Stop date: 09/28/17 17:00: 00 CDT Notes: (Same as: Glucophage) Take with meal Start Date: 08/30/17 Stop Date: 08/30/17 Status: Discontinuedmetoprolol tartrate 25 mg, 1 tab, Route: PO, Drug form: TAB, ONCE, Dosing Weight 80.455, kg, Priority: STAT, Start date:08/29/17 19:34:00 CDT, Stop date: 08/29/17 19:34:00 CDT Notes: (Same as: Lopressor) Start Date: 08/29/17 Stop Date: 08/29/17 Status: Completedmorphine Sulfate 4 mg, 1 mL, Route: IVP, Drug form: SOLN, ONCE, Dosing Weight 80.455, kg, Start date: 08/29/17 21:51:00 CDT, Stop date: 08/29/17 21:51:00 CDT Notes: (Same as:MORPhine Sulfate) Start Date: 08/29/17 Stop Date: 08/30/17 Status: Completednitroglycerin SL Tab 0.4 mg, Route: SL, Drug form: TAB, Q5Min, Dosing Weight 80.455, kg, PRN Chest Pain, Start date: 08/29/17 20:45:00 CDT, Duration: 3 doses or times, Stop date: Limited # of times Start Date: 08/29/17 Stop Date: 08/29/17 Status: DeletedNitrostat 0.4 mg sublingual tablet 0.4 mg, 1 tab, Route: SL, Drug form: TAB, Q5Min, Dosing Weight 80.455, kg, PRN Chest Pain, Start date: 08/29/17 21:39:00 CDT, Duration: 30 day, Stop date: 11/08 21:38:00 CDT Notes: (Same as:Nitroquick, Nitrostat)"Do Not Crush" Sublingual tablet Start Date: 08/29/17 Stop Date: 08/30/17 Status: DiscontinuedNovoLOG FlexPen 30 unit, Route: SUB-Q, Drug form: SOLN, TID-Before Meals, Dosing Weight 80.455, kg, Start date: 08/30/17 7:30:00 CDT, Duration: 30 day, Stop date: 09/28/17 16: 30:00 CDT Start Date: 08/30/17 Stop Date: 08/29/17 Status: DeletedPlavix 75 mg, 1 tab, Route: PO, Drug form: TAB, Daily, Dosing Weight 80.455, kg, Start date: 08/30/17 9:00:00 CDT, Duration: 30 day, Stop date: 09/28/17 9:00:00 CDT Notes: (Same As: Plavix) Start Date: 08/30/17 Stop Date: 08/30/17 Status: DiscontinuedPROzac 40 mg, 4 cap, Route: PO, Drug form: CAP, QPM, Dosing Weight 80.455, kg, Start date: 08/30/17 17:00:00 CDT, Duration: 30 day, Stop date: 09/28/17 17:00:00 CDT Notes: (Same as: Prozac) Start Date: 08/30/17 Stop Date: 08/30/17 Status: CanceledSaline Flush 0.9% 10 mL, Route: IVP, Drug Form: INJ, Dosing Weight 80.455, kg, PRN, PRN Line Flush , Start date: 08/29/17 13:43:00 CDT, Duration: 30 day, Stop date: 09/28/17 13:42 :00 CDT Notes: (Same as: BD Posiflush) Start Date: 08/29/17 Stop Date: 08/30/17 Status: DiscontinuedSaline Flush 0.9% 10 ml, Route: IVP, Drug Form: INJ, Dosing Weight 80.455, kg, Q12H, Start date: 08/29/17 21:00:00 CDT, Duration: 30 day, Stop date: 09/28/17 9:00:00 CDT Notes: (Same as: BD Posiflush) Start Date: 08/29/17 Stop Date: 08/30/17 Status: DiscontinuedSaline Flush 0.9% 10 ml, Route: IVP, Drug Form: INJ, Dosing Weight 80.455, kg, PRN, PRN Line Flush , Start date: 08/29/17 20:45:00 CDT, Duration: 30 day, Stop date: 09/28/17 20:44 :00 CDT Notes: (Same as: BD Posiflush) Start Date: 08/29/17 Stop Date: 08/30/17 Status: DiscontinuedToprol-XL 25 mg oral tablet, extended release 25 mg, 1 tab, Route: PO, Drug form: ERTAB, Daily, Start date: 08/30/17 9:00:00 CDT, Duration: 30 day, Stop date: 09/28/17 9:00:00 CDT Notes: (Same as: Toprol XL) Do Not Crush Start Date: 08/30/17 Stop Date: 08/30/17 Status: DiscontinuedZofran 4 mg, 2 mL, Route: IVP, Drug form: INJ, ONCE, Dosing Weight 100.455, kg, Start date: 08/29/17 21:52:00 CDT, Stop date: 08/29/17 21:52:00 CDT Notes: (Same as: Zofran) MEDICATION WASTE Product Size: 4 mgProduct Wasted: ___ mg Start Date: 08/29/17 Stop Date: 08/30/17 Status: CompletedZyPREXA 10 mg, 1 tab, Route: PO, Drug form: TAB, Daily, Dosing Weight 80.455, kg, Start date: 08/30/17 9:00:00 CDT, Stop date: 09/28/17 9:00:00 CDT Notes: (Same as: ZyPREXA) Start Date: 08/30/17 Stop Date: 08/30/17 Status: Discontinued Results ELECTROLYTES Most recent to oldest [Reference Range]: 1 2 3 Sodium Lvl [135-145 mEq/L] 137 mEq/L 134 mEq/L (08/30/17 3:21 AM) *LOW* (08/29/17 3:49 PM) Potassium Lvl [3.5-5.1 mEq/L] 3.7 mEq/L 3.9 mEq/L (08/30/17 3:21 AM) (08/29/17 3:49 PM) Chloride Lvl [95-109 mEq/L] 100 mEq/L 99 mEq/L (08/30/17 3:21 AM) (08/29/17 3:49 PM) CO2 [24-32 mEq/L] 30 mEq/L 25 mEq/L (08/30/17 3:21 AM) (08/29/17 3:49 PM) AGAP [10.0-20.0 mEq/L] 10.7 mEq/L 13.9 mEq/L (08/30/17 3:21 AM) (08/29/17 3:49 PM) CHEM PANEL Most recent to oldest [Reference Range]: 1 2 3 Creatinine Lvl [0.50-1.40 mg/dL] 0.83 mg/dL 1.03 mg/dL (08/30/17 3:21 AM) (08/29/17 3:49 PM) eGFR 96 mL/min/1.73m2 1 74 mL/min/1.73m2 2 *NA* *NA* (08/30/17 3:21 AM) (08/29/17 3:49 PM) BUN [7-22 mg/dL] 14 mg/dL 11 mg/dL (08/30/17 3:21 AM) (08/29/17 3:49 PM) B/C Ratio [6-25] 11 (08/29/17 3:49 PM) Glucose Lvl [70-99 mg/dL] 379 mg/dL 481 mg/dL 3 *HI* *CRIT* (08/30/17 3:21 AM) (08/29/17 3:49 PM) Total Protein [6.4-8.4 g/dL] 8.3 g/dL (08/29/17 3:49 PM) Albumin Lvl [3.5-5.0 g/dL] 3.7 g/dL (08/29/17 3:49 PM) Globulin [2.7-4.2 g/dL] 4.6 g/dL *HI* (08/29/17 3:49 PM) A/G Ratio [0.7-1.6] 0.8 (08/29/17 3:49 PM) Calcium Lvl [8.5-10.5 mg/dL] 9.1 mg/dL 9.4 mg/dL (08/30/17 3:21 AM) (08/29/17 3:49 PM) ALT [0-65 unit/L] 27 unit/L (08/29/17 3:49 PM) AST [0-37 unit/L] 11 unit/L (08/29/17 3:49 PM) Alk Phos [39-136 unit/L] 158 unit/L *HI* (08/29/17 3:49 PM) Bili Total [0.2-1.3 mg/dL] 0.2 mg/dL (08/29/17 3:49 PM) 1Result Comment: The eGFR is calculated [...] estimated BMI.3Result Comment: Critical Result(s) called to Gabriel Cardoza at 08/29/2017 16:50 byecu. Read back OK.CARDIAC ENZYMES Most recent to oldest 1 2 3 [Reference Range]: Total CK [12-191 unit/L] 138 unit/L 139 unit/L 164 unit/L (08/30/17 3:15 AM) (08/29/17 10:28 PM) (08/29/17 3:49 PM) CK MB [0.5-3.6 ng/mL] <1.0 ng/mL <1.0 ng/mL <1.0 ng/mL (08/30/17 3:15 AM) (08/29/17 10:28 PM) (08/29/17 3:49 PM) CK MB Index [0.0-2.5] <0.7 <0.7 <0.6 (08/30/17 3:15 AM) (08/29/17 10:28 PM) (08/29/17 3:49 PM) Troponin-I [0.00-0.40 ng/mL] <0.02 ng/mL <0.02 ng/mL <0.02 ng/mL (08/30/17 3:15 AM) (08/29/17 10:28 PM) (08/29/17 3:49 PM) LIPIDS Most recent to oldest [Reference Range]: 1 2 3 CHD Risk [3.90-5.80] 7.10 *HI* (08/29/17 10:28 PM) Chol [<=199 mg/dL] 298 mg/dL *HI* (08/29/17 10:28 PM) Trig [<=149 mg/dL] 309 mg/dL *HI* (08/29/17 10:28 PM) HDL [>=61 mg/dL] 42 mg/dL *LOW* (08/29/17 10:28 PM) LDL (Calculated) [<=99 mg/dL] 194 mg/dL *HI* (08/29/17 10:28 PM) VLDL 62 *NA* (08/29/17 10:28 PM) HEMATOLOGY Most recent to oldest [Reference Range]: 1 2 3 WBC [3.7-10.4 K/CMM] 10.7 K/CMM 9.9 K/CMM *HI* (08/29/17 3:49 PM) (08/30/17 3:21 AM) RBC [4.20-5.40 M/CMM] 4.30 M/CMM 4.40 M/CMM (08/30/17 3:21 AM) (08/29/17 3:49 PM) Hgb [12.0-16.0 g/dL] 12.8 g/dL 13.1 g/dL (08/30/17 3:21 AM) (08/29/17 3:49 PM) Hct [36.0-48.0 %] 38.5 % 39.4 % (08/30/17 3:21 AM) (08/29/17 3:49 PM) MCV [80.0-98.0 fL] 89.5 fL 89.5 fL (08/30/17 3:21 AM) (08/29/17 3:49 PM) MCH [27.0-31.0 pg] 29.8 pg 29.7 pg (08/30/17 3:21 AM) (08/29/17 3:49 PM) MCHC [32.0-36.0 g/dL] 33.3 g/dL 33.2 g/dL (08/30/17 3:21 AM) (08/29/17 3:49 PM) RDW [11.5-14.5 %] 13.7 % 13.7 % (08/30/17 3:21 AM) (08/29/17 3:49 PM) MPV [7.4-10.4 fL] 10.4 fL 10.0 fL (08/30/17 3:21 AM) (08/29/17 3:49 PM) Platelet [133-450 K/CMM] 283 K/CMM 282 K/CMM (08/30/17 3:21 AM) (08/29/17 3:49 PM) Segs [45.0-75.0 %] 57.3 % 65.5 % (08/30/17 3:21 AM) (08/29/17 3:49 PM) Lymphocytes [20.0-40.0 %] 32.2 % 25.1 % (08/30/17 3:21 AM) (08/29/17 3:49 PM) Monocytes [2.0-12.0 %] 7.0 % 6.4 % (08/30/17 3:21 AM) (08/29/17 3:49 PM) Eosinophils [0.0-4.0 %] 2.8 % 2.1 % (08/30/17 3:21 AM) (08/29/17 3:49 PM) Basophils [0.0-1.0 %] 0.7 % 0.9 % (08/30/17 3:21 AM) (08/29/17 3:49 PM) Segs-Bands # [1.5-8.1 K/CMM] 6.1 K/CMM 6.5 K/CMM (08/30/17 3:21 AM) (08/29/17 3:49 PM) Lymphocytes # [1.0-5.5 K/CMM] 3.4 K/CMM 2.5 K/CMM (08/30/17 3:21 AM) (08/29/17 3:49 PM) Monocytes # [0.0-0.8 K/CMM] 0.8 K/CMM 0.6 K/CMM (08/30/17 3:21 AM) (08/29/17 3:49 PM) Eosinophils # [0.0-0.5 K/CMM] 0.3 K/CMM 0.2 K/CMM (08/30/17 3:21 AM) (08/29/17 3:49 PM) Basophils # [0.0-0.2 K/CMM] 0.1 K/CMM 0.1 K/CMM (08/30/17 3:21 AM) (08/29/17 3:49 PM) Immunizations Given and Recorded Vaccine Date [...] Reg Smoking Cessation Counseling No entered on: 08/29/17 Assessment and Plan Extracted from: Title: Clinical Document Author: Michael Dwyer MD Date: 08/30/17 Chief Complaint: Chest pain HPI: Patient is a 47-year-old female with history of CAD status post proximal and ostial LAD PCI in 2015 after a normal FFR but due to [...] <0.02 (AUGUST 30) <0.02 (AUGUST 29) <0.02 (AUGUST 29) CK MB <1.0 (AUGUST 30) <1.0 (AUGUST 29) <1.0 (AUGUST 29) Total CK 138 (AUGUST 30) 139 (AUGUST [...] 47-year-old female that underwent LAD PCI in 2016 and since then is following with Dr. Ferris at [place]. This time she presents with complaints of [...] she also can follow-up with her outpatient panel monitor for completion of the workup. She will [...] status post proximal and ostial LAD stent 2016 Obesity Poorly controlled diabetes Gastroparesis Hypertension Hyperlipidemia
--- OUTSIDE RECORDS SUMMARY | 2018-12-17 19:02 | XMS REPORT | Summary of Care ---
:1970 Author Organization [facility] Address [address] [place], [place] [address]- Encounter HQ Daryl_kati(NATALIE) [id number] Date(s): 08/29/17 - 08/30/17 [facility] [address] [place] [address]- [phone] Discharge Disposition: Home or Self Care Attending [...] Stroke(Confirmed) Active Stroke(Confirmed) Resolved 1Data migrated from [employer] on 12/16/14.2Data migrated from [employer] on 12/16/14.3x 2- May 2015 Allergies, Adverse [...] then is following with Dr. Ferris at [place]. This time she presents with complaints of [...] she also can follow-up with her outpatient flight dispatcher for completion of the workup. She will [...]
[2018-12-17 19:03] LABS: Absolute Lymphocytes (CBC) 2.2 K/uL (0.7-4.9); Basophils % 1.2 % (0-1.3); Hematocrit 35.5 % (36.0-45.0); MPV 11.3 fL (7.6-11.3); RBC Red Blood Cell Count 3.91 M/uL (3.86-4.86)
--- OUTSIDE RECORDS SUMMARY | 2018-12-17 19:03 | XMS REPORT | Summary of Care ---
:1970 Author Organization [facility] Address [address] [place], [place] [address]- Encounter HQ Daryl_kati(FIN) [id number] Date(s): 10/14/17 - 10/15/17 [facility] [address] [place] [address]- Discharge Disposition: Home or Self Care Vital Signs Most recent to oldest 1 2 3 [Reference Range]: Height 165.1 cm 165.1 cm (10/14/17 9:10 PM) (10/14/17 12:45 PM) Temperature Oral [96.4-99.1 98.9 DegF 97.9 DegF 98.4 DegF DegF] (10/15/17 11:48 AM) (10/15/17 7:39 AM) (10/15/17 3:08 AM) Blood Pressure [90-140/60-90 162/84 mmHg 161/78 mmHg 145/80 mmHg mmHg] *HI* *HI* *HI* (10/15/17 11:48 AM) (10/15/17 7:39 AM) (10/15/17 3:08 AM) Respiratory Rate [14-20 17 BRMIN 18 BRMIN 17 BRMIN BRMIN] (10/15/17 11:48 AM) (10/15/17 7:39 AM) (10/15/17 3:08 AM) Peripheral Pulse Rate [60-100 90 bpm 91 bpm 94 bpm bpm] (10/15/17 11:48 AM) (10/15/17 7:39 AM) (10/15/17 3:08 AM) Weight 96.818 kg 96.818 kg (10/14/17 9:10 PM) (10/14/17 12:45 PM) Body Mass Index 35.52 m2 35.52 m2 (10/14/17 9:10 PM) (10/14/17 12:45 PM) Problem List Condition Effective Dates Status Health Status Informant CAD - Coronary artery Resolved disease(Confirmed) Chronic pain syndrome1 02/07/14 Active DM - Diabetes mellitus(Confirmed) Active FH: Diabetes mellitus2 12/17/13 Active HTN - Hypertension(Confirmed) Active Hyperlipidemia(Confirmed) Active Insertion of coronary artery Resolved stent(Confirmed)3 Stroke(Confirmed) Active Stroke(Confirmed) Resolved 1Data migrated from [email or web address] on 12/16/14.2Data migrated from [email or web address] on 12/16/14.3x 2- May 2015 Allergies, Adverse Reactions, Alerts Substance Reaction Severity Status NKDA Active Medications aspirin 325 mg, 1 tab, Route: PO, Drug form: ECTAB, ONCE, Dosing Weight 96.818, kg, Priority: STAT, Start date: 10/14/17 17:42:00 CDT, Stop date: 10/14/17 17:42:00 CDT Notes: (Do Not Crush) Do not crush or chew. Start Date: 10/14/17 Stop Date: 10/14/17 Status: Completedaspirin 81 mg tablet, enteric coated 81 mg, 1 tab, Route: PO, Drug form: ECTAB, Daily, Dosing Weight 96.818, kg, Start date: 10/15/17 9:00:00 CDT, Duration: 30 day, Stop date: 11/13/17 9:00:00 CDT Notes: Do not crush or chew.(Same As: Ecotrin) Start Date: 10/15/17 Stop Date: 10/15/17 Status: DiscontinuedDextrose 50% Syringe 12.5 gm, 25 mL, Route: IVP, Drug Form: INJ, Dosing Weight 96.818, kg, PRN, PRN Blood Glucose Results, Start date: 10/15/17 8:28:00 CDT, Duration: 30 day, Stop date: 11/14/17 8:27:00 CDT Start Date: 10/15/17 Stop Date: 10/15/17 Status: DiscontinuedDextrose 50% Syringe 25 gm, 50 mL, Route: IVP, Drug Form: INJ, Dosing Weight 96.818, kg, PRN, PRN Blood Glucose Results, Start date: 10/15/17 8:28:00 CDT, Duration: 30 day, Stop date: 11/14/17 8:27:00 CDT Start Date: 10/15/17 Stop Date: 10/15/17 Status: DiscontinuedDextrose 50% Syringe 25 mL, Route: IVP, Dosing Weight 96.818, kg, PRN, PRN Blood Glucose Results, Start date: 10/15/17 9:30:00 CDT, Duration: 30 day, Stop date: 11/14/17 9:29:00 CDT Start Date: 10/15/17 Stop Date: 10/15/17 Status: DeletedDextrose 50% Syringe 50 mL, Route: IVP, Dosing Weight 96.818, kg, PRN, PRN Blood Glucose Results, Start date: 10/15/17 9:30:00 CDT, Duration: 30 day, Stop date: 11/14/17 9:29:00 CDT Start Date: 10/15/17 Stop Date: 10/15/17 Status: DeletedDextrose 50% Syringe 25 mL, Route: IVP, Dosing Weight 96.818, kg, PRN, PRN Blood Glucose Results, Start date: 10/15/17 8:24:00 CDT, Duration: 30 day, Stop date: 11/14/17 8:23:00 CDT Start Date: 10/15/17 Stop Date: 10/15/17 Status: DiscontinuedDextrose 50% Syringe 50 mL, Route: IVP, Dosing Weight 96.818, kg, PRN, PRN Blood Glucose Results, Start date: 10/15/17 8:24:00 CDT, Duration: 30 day, Stop date: 11/14/17 8:23:00 CDT Start Date: 10/15/17 Stop Date: 10/15/17 Status: DiscontinuedfentaNYL 25 microgram, 0.5 mL, Route: IVP, Drug form: INJ, ONCE, Dosing Weight 96.818, kg , Priority: STAT, Start date: 10/14/17 15:25:00 CDT, Stop date: 10/14/17 15:25: 00 CDT Notes: (Same as: Sublimaze) Preservative free. Start Date: 10/14/17 Stop Date: 10/14/17 Status: Completedgabapentin 100 mg oral capsule 100 mg=1 cap, PO, TID, # 90 cap, 0 Refill(s), Pharmacy: [id number] Start Date: 10/15/17 Status: Orderedglucagon 1 mg, Route: IM, Drug form: PDR/INJ, PRN, Dosing Weight 96.818, kg, PRN Blood Glucose Results, Startdate: 10/15/17 8:28:00 CDT, Duration: 30 day, Stop date: 11/14/17 8:27:00 CDT Start Date: 10/15/17 Stop Date: 10/15/17 Status: Discontinuedglucagon 1 mg, Route: IM, PRN, Dosing Weight 96.818, kg, PRN Blood Glucose Results, Start date: 10/15/17 9:30:00 CDT, Duration: 30 day, Stop date: 11/14/17 9:29:00 CDT Start Date: 10/15/17 Stop Date: 10/15/17 Status: Deletedglucagon 1 mg, Route: IM, PRN, Dosing Weight 96.818, kg, PRN Blood Glucose Results, Start date: 10/15/17 8:24:00 CDT, Duration: 30 day, Stop date: 11/14/17 8:23:00 CDT Start Date: 10/15/17 Stop Date: 10/15/17 Status: DiscontinuedHumalog 30 unit, 0.3 mL, Route: SUB-Q, Drug form: SOLN, TID-Before Meals, Start date: 11:30:00 CDT,Duration: 30 day, Stop date: 11/14/17 7:30:00 CDT Notes: (Same as: Humalog ) Roll in palms of hands gently; Do not shake ` vigorously. "Single PatientUse Only " WASTE: F/P - Black; E - [facility] Trash [facility] Stable for 28 days at room temperature.Expires in days from Date Start Date: 10/15/17 Stop Date: 10/15/17 Status: DiscontinuedhydrALAZINE 20 mg, 1 mL, Route: IVP, Drug form: INJ, Q4H, Dosing Weight 96.818, kg, PRN Hypertension, Start date: 10/14/17 18:58:00 CDT, Duration: 30 day, Stop date: 18:57:00 CDT, sbp> 170 Notes: (Same as: Apresoline)Push over 5 minutes Start Date: 10/14/17 Stop Date: 10/15/17 Status: DiscontinuedImdur 120 mg, 4 tab, Route: PO, Drug form: ERTAB, QAM, Dosing Weight 96.818, kg, Start date: 10/15/17 9:00:00 CDT, Duration: 30 day, Stop date: 11/13/17 9:00:00 CDT Notes: (Same as:Imdur)"Do Not Crush" Take on empty stomach/ full glass of water. Do not crush Start Date: 10/15/17 Stop Date: 10/15/17 Status: Discontinuedinsulin aspart 30 unit, Route: SUB-Q, TID-Before Meals, Dosing Weight 96.818, kg, Start date: 10/15/17 11:30:00 CDT, Duration: 30 day, Stop date: 11/14/17 7:30:00 CDT Start Date: 10/15/17 Stop Date: 10/15/17 Status: Deletedinsulin glargine 30 unit, 0.3 mL, Route: SUB-Q, Drug form: SOLN, Bedtime, Start date: 10/15/17 21 :00:00 CDT, Duration: 30 day, Stop date: 11/13/17 21:00:00 CDT Notes: (Same as: Lantus)Do not hold insulin without contacting prescriberWASTE: F/P - Black; E - [facility] Trash Bin "single patient use only" Start Date: 10/15/17 Stop Date: 10/15/17 Status: Canceledinsulin lispro 3 unit, 0.03 mL, Route: SUB-Q, Drug form: SOLN, Bedtime, Dosing Weight 96.818, kg, PRN Blood GlucoseResults, Start date: 10/15/17 8:28:00 CDT, Duration: 30 day , Stop date: 11/14/17 8:27:00 CDT Notes: (Same as: Humalog ) Roll in palms of hands gently; Do not shake ` vigorously. "Single PatientUse Only " WASTE: F/P - Black; E - [facility] Stable for 28 days at room temperature.Expires in days from Date Start Date: 10/15/17 Stop Date: 10/15/17 Status: Discontinuedinsulin lispro 2 unit, 0.02 mL, Route: SUB-Q, Drug form: SOLN, Bedtime, Dosing Weight 96.818, kg, PRN Blood GlucoseResults, Start date: 10/15/17 8:28:00 CDT, Duration: 30 day , Stop date: 11/14/17 8:27:00 CDT Notes: (Same as: Humalog ) Roll in palms of hands gently; Do not shake ` vigorously. "Single PatientUse Only " WASTE: F/P - Black; E - [facility] Stable for 28 days at room temperature.Expires in days from Date Start Date: 10/15/17 Stop Date: 10/15/17 Status: Discontinuedinsulin lispro 1 unit, 0.01 mL, Route: SUB-Q, Drug form: SOLN, Bedtime, Dosing Weight 96.818, kg, PRN Blood GlucoseResults, Start date: 10/15/17 8:28:00 CDT, Duration: 30 day , Stop date: 11/14/17 8:27:00 CDT Notes: (Same as: Humalog ) Roll in palms of hands gently; Do not shake ` vigorously. "Single PatientUse Only " WASTE: F/P - Black; E - [facility] Stable for 28 days at room temperature.Expires in days from Date Start Date: 10/15/17 Stop Date: 10/15/17 Status: Discontinuedinsulin lispro 4 unit, 0.04 mL, Route: SUB-Q, Drug form: SOLN, Bedtime, Dosing Weight 96.818, kg, PRN Blood GlucoseResults, Start date: 10/15/17 8:28:00 CDT, Duration: 30 day , Stop date: 11/14/17 8:27:00 CDT Notes: (Same as: Humalog ) Roll in palms of hands gently; Do not shake ` vigorously. "Single PatientUse Only " WASTE: F/P - Black; E - [facility] Stable for 28 days at room temperature.Expires in days from Date Start Date: 10/15/17 Stop Date: 10/15/17 Status: Discontinuedinsulin lispro 1 unit, 0.01 mL, Route: SUB-Q, Drug form: SOLN, TID-Before Meals, Dosing Weight 96.818, kg, PRN Blood Glucose Results, Start date: 10/15/17 8:28:00 CDT, Duration: 30 day, Stop date: 11/14/17 8:27:00 CDT Notes: (Same as: Humalog ) Roll in palms of hands gently; Do not shake ` vigorously. "Single PatientUse Only " WASTE: F/P - Black; E - [facility] Stable for 28 days at room temperature.Expires in days from Date Start Date: 10/15/17 Stop Date: 10/15/17 Status: Discontinuedinsulin lispro 5 unit, 0.05 mL, Route: SUB-Q, Drug form: SOLN, TID-Before Meals, Dosing Weight 96.818, kg, PRN Blood Glucose Results, Start date: 10/15/17 8:28:00 CDT, Duration: 30 day, Stop date: 11/14/17 8:27:00 CDT Notes: (Same as: Humalog ) Roll in palms of hands gently; Do not shake ` vigorously. "Single PatientUse Only " WASTE: F/P - Black; E - [facility]ash [facility] Stable for 28 days at room temperature.Expires in days from Date Start Date: 10/15/17 Stop Date: 10/15/17 Status: Discontinuedinsulin lispro 4 unit, 0.04 mL, Route: SUB-Q, Drug form: SOLN, TID-Before Meals, Dosing Weight 96.818, kg, PRN Blood Glucose Results, Start date: 10/15/17 8:28:00 CDT, Duration: 30 day, Stop date: 11/14/17 8:27:00 CDT Notes: (Same as: Humalog ) Roll in palms of hands gently; Do not shake ` vigorously. "Single PatientUse Only " WASTE: F/P - Black; E - [facility] Trash Bin Stable for 28 days at room temperature.Expires in days from Date Start Date: 10/15/17 Stop Date: 10/15/17 Status: Discontinuedinsulin lispro 3 unit, 0.03 mL, Route: SUB-Q, Drug form: SOLN, TID-Before Meals, Dosing Weight 96.818, kg, PRN Blood Glucose Results, Start date: 10/15/17 8:28:00 CDT, Duration: 30 day, Stop date: 11/14/17 8:27:00 CDT Notes: (Same as: Humalog ) Roll in palms of hands gently; Do not shake ` vigorously. "Single PatientUse Only " WASTE: F/P - Black; E - [facility] Trash Bin Stable for 28 days at room temperature.Expires in days from Date Start Date: 10/15/17 Stop Date: 10/15/17 Status: Discontinuedinsulin lispro 2 unit, 0.02 mL, Route: SUB-Q, Drug form: SOLN, TID-Before Meals, Dosing Weight 96.818, kg, PRN Blood Glucose Results, Start date: 10/15/17 8:28:00 CDT, Duration: 30 day, Stop date: 11/14/17 8:27:00 CDT Notes: (Same as: Humalog ) Roll in palms of hands gently; Do not shake ` vigorously. "Single PatientUse Only " WASTE: F/P - Black; E - [facility] Trash Bin Stable for 28 days at room temperature.Expires in days from Date Start Date: 10/15/17 Stop Date: 10/15/17 Status: Discontinuedinsulin lispro 15 unit, Route: SUB-Q, TID-Before Meals, Dosing Weight 96.818, kg, PRN Blood Glucose Results, Start date: 10/15/17 8:24:00 CDT, Duration: 30 day, Stop date: 11/14/17 8:23:00 CDT Start Date: 10/15/17 Stop Date: 10/15/17 Status: Discontinuedinsulin lispro 2 unit, Route: SUB-Q, Bedtime, Dosing Weight 96.818, kg, PRN Blood Glucose Results, Start date: 10/15/17 8:24:00 CDT, Duration: 30 day, Stop date: 8:23:00 CDT Start Date: 10/15/17 Stop Date: 10/15/17 Status: Discontinuedinsulin lispro 12 unit, Route: SUB-Q, TID-Before Meals, Dosing Weight 96.818, kg, PRN Blood Glucose Results, Start date: 10/15/17 8:24:00 CDT, Duration: 30 day, Stop date: 11/14/17 8:23:00 CDT Start Date: 10/15/17 Stop Date: 10/15/17 Status: Discontinuedinsulin lispro 3 unit, Route: SUB-Q, Bedtime, Dosing Weight 96.818, kg, PRN Blood Glucose Results, Start date: 10/15/17 8:24:00 CDT, Duration: 30 day, Stop date: 8:23:00 CDT Start Date: 10/15/17 Stop Date: 10/15/17 Status: Discontinuedinsulin lispro 4 unit, Route: SUB-Q, Bedtime, Dosing Weight 96.818, kg, PRN Blood Glucose Results, Start date: 10/15/17 8:24:00 CDT, Duration: 30 day, Stop date: 8:23:00 CDT Start Date: 10/15/17 Stop Date: 10/15/17 Status: Discontinuedinsulin lispro 1 unit, Route: SUB-Q, Bedtime, Dosing Weight 96.818, kg, PRN Blood Glucose Results, Start date: 10/15/17 8:24:00 CDT, Duration: 30 day, Stop date: 8:23:00 CDT Start Date: 10/15/17 Stop Date: 10/15/17 Status: Discontinuedinsulin lispro 3 unit, Route: SUB-Q, TID-Before Meals, Dosing Weight 96.818, kg, PRN Blood Glucose Results, Start date: 10/15/17 8:24:00 CDT, Duration: 30 day, Stop date: 11/14/17 8:23:00 CDT Start Date: 10/15/17 Stop Date: 10/15/17 Status: Discontinuedinsulin lispro 9 unit, Route: SUB-Q, TID-Before Meals, Dosing Weight 96.818, kg, PRN Blood Glucose Results, Start date: 10/15/17 8:24:00 CDT, Duration: 30 day, Stop date: 11/14/17 8:23:00 CDT Start Date: 10/15/17 Stop Date: 10/15/17 Status: Discontinuedinsulin lispro 6 unit, Route: SUB-Q, TID-Before Meals, Dosing Weight 96.818, kg, PRN Blood Glucose Results, Start date: 10/15/17 8:24:00 CDT, Duration: 30 day, Stop date: 11/14/17 8:23:00 CDT Start Date: 10/15/17 Stop Date: 10/15/17 Status: DiscontinuedInsulin regular 10 unit, Route: IVP, ONCE, Dosing Weight 96.818, kg, Priority: STAT, Start date : 10/14/17 13:55:00 CDT, Stop date: 10/14/17 13:55:00 CDT Start Date: 10/14/17 Stop Date: 10/14/17 Status: Completedlabetalol 10 mg, 2 mL, Route: IV, Drug form: INJ, ONCE, Dosing Weight 96.818, kg, Start date: 10/14/17 17:39:00 CDT, Stop date: 10/14/17 17:39:00 CDT Notes: (Same as: Normodyne, Trandate)Push over 2 minutes Give bolus over 2-3 minutes. Start Date: 10/14/17 Stop Date: 10/14/17 Status: CompletedLasix 20 mg oral tablet 20 mg, 1 tab, Route: PO, Drug form: TAB, Daily, Dosing Weight 96.818, kg, Start date: 10/15/17 9:00:00 CDT, Duration: 30 day, Stop date: 11/13/17 9:00:00 CDT Notes: (Same as: Lasix) May cause GI upset. Give with food or milk. Start Date: 10/15/17 Stop Date: 10/15/17 Status: DiscontinuedLevemir FlexPen 30 unit, Route: SUB-Q, Drug form: SOLN, Bedtime, Dosing Weight 96.818, kg, Start date: 10/15/17 21:00:00 CDT, Duration: 30 day, Stop date: 11/13/17 21:00: 00 CDT Start Date: 10/15/17 Stop Date: 10/15/17 Status: DeletedLipitor 80 mg, 2 tab, Route: PO, Drug form: TAB, Bedtime, Dosing Weight 96.818, kg, Start date: 10/15/17 21:00:00 CDT, Duration: 30 day, Stop date: 11/13/17 21:00: 00 CDT Notes: (Same as: Lipitor) Start Date: 10/15/17 Stop Date: 10/15/17 Status: Canceledlisinopril 40 mg, 2 tab, Route: PO, Drug form: TAB, Daily, Dosing Weight 96.818, kg, Start date: 10/15/17 9:00:00 CDT, Duration: 30 day, Stop date: 11/13/17 9:00:00 CDT Notes: (Same as: Prinivil, Zestril) Start Date: 10/15/17 Stop Date: 10/15/17 Status: Discontinuedlisinopril 40 mg oral tablet 40 mg=1 tab, PO, Daily, 0 Refill(s) Start Date: 10/14/17 Status: Orderednitroglycerin 2% ointment 0.5 inch, Route: TOP, Drug Form: OINT, Dosing Weight 96.818, kg, ONCE, STAT, Start date: 10/14/17 17:41:00 CDT, Stop date: 10/14/17 17:41:00 CDT Notes: 1 gram is approximately 1 inch of nitroglycerin ointment (20 mg NTG per gram) (Same as:Nitro-Bid) Start Date: 10/14/17 Stop Date: 10/14/17 Status: Completednitroglycerin SL Tab 0.4 mg, 1 tab, Route: SL, Drug form: TAB, Q5Min, Dosing Weight 96.818, kg, PRN Chest Pain, Start date: 10/14/17 22:55:00 CDT, Duration: 3 doses or times, Stop date: Limited # of times Notes: (Same as:Nitroquick, Nitrostat)"Do Not Crush" Sublingual tablet Start Date: 10/14/17 Stop Date: 10/15/17 Status: DiscontinuedPlavix 75 mg, 1 tab, Route: PO, Drug form: TAB, Daily, Dosing Weight 96.818, kg, Start date: 10/15/17 9:00:00 CDT, Duration: 30 day, Stop date: 11/13/17 9:00:00 CDT Notes: (Same As: Plavix) Start Date: 10/15/17 Stop Date: 10/15/17 Status: Discontinuedpneumococcal 23-valent vaccine 0.5 mL, Route: IM, ONCALL, Start date: 10/14/17 21:08:43 CDT, Stop date: 21:03:43 CDT Start Date: 10/14/17 Stop Date: 10/14/17 Status: Deletedpregabalin 75 mg, 1 cap, Route: PO, Drug form: CAP, Q12H, Dosing Weight 96.818, kg, Priority: NOW, Start date: 10/15/17 9:52:00 CDT, Duration: 30 day, Stop date: 9:00:00 CDT Notes: (Same as: Lyrica) Start Date: 10/15/17 Stop Date: 10/15/17 Status: DiscontinuedPROzac 40 mg, 4 cap, Route: PO, Drug form: CAP, QPM, Dosing Weight 96.818, kg, Start date: 10/15/17 17:00:00 CDT, Duration: 30 day, Stop date: 11/13/17 17:00:00 CDT Notes: (Same as: Prozac) Start Date: 10/15/17 Stop Date: 10/15/17 Status: CanceledSaline Flush 0.9% 10 ml, Route: IVP, Drug Form: INJ, Dosing Weight 96.818, kg, Q12H, Start date: 10/15/17 9:00:00 CDT,Duration: 30 day, Stop date: 11/13/17 21:00:00 CDT Notes: (Same as: BD Posiflush) Start Date: 10/15/17 Stop Date: 10/15/17 Status: DiscontinuedSaline Flush 0.9% 10 ml, Route: IVP, Drug Form: INJ, Dosing Weight 96.818, kg, PRN, PRN Line Flush , Start date: 10/14/17 22:55:00 CDT, Duration: 30 day, Stop date: 11/13/17 22:54 :00 CDT Notes: (Same as: BD Posiflush) Start Date: 10/14/17 Stop Date: 10/15/17 Status: DiscontinuedSodium Chloride 0.9% (Bolus) IV 1,000 mL, Infuse Over: 1 hr, Route: IV, ONCE, Priority: STAT, Dosing Weight 96.818 kg, Start date: 10/14/17 13:51:00 CDT, Stop date: 10/14/17 13:51:00 CDT Start Date: 10/14/17 Stop Date: 10/14/17 Status: CompletedToprol-XL 25 mg oral tablet, extended release 25 mg=1 tab, PO, Daily, # 30 tab, 0 Refill(s), Pharmacy: [id number] Start Date: 10/15/17 Stop Date: 11/14/17 Status: OrderedToprol-XL 50 mg oral tablet, extended release 50 mg, 1 tab, Route: PO, Drug form: ERTAB, Daily, Priority: NOW, Start date: 10:31:00 CDT, Duration: 30 day, Stop date: 11/14/17 9:00:00 CDT Notes: (Same as: Toprol XL) May split tab, but do not crush. Start Date: 10/15/17 Stop Date: 10/15/17 Status: Discontinuedtramadol 50 mg, Route: PO, Drug form: TAB, ONCE, Dosing Weight 96.818, kg, > 50 kg, Priority: STAT, Start date: 10/14/17 13:54:00 CDT, Stop date: 10/14/17 13:54:00 CDT Start Date: 10/14/17 Stop Date: 10/14/17 Status: Completedtramadol 50 mg oral tablet 50 mg=1 tab, PO, Q6H, PRN Pain Score 1-3, # 28 tab, 0 Refill(s) Start Date: 10/15/17 Status: Orderedtramadol 50 mg oral tablet 50 mg, 1 tab, Route: PO, Drug form: TAB, Q6H, Dosing Weight 96.818, kg, PRN Pain Score 1-3, Priority: NOW, Start date: 10/15/17 9:52:00 CDT, Duration: 30 day, Stop date: 11/14/17 9:51:00 CDT Notes: Not to exceed 400mg/day. (Same As: Ultram) Start Date: 10/15/17 Stop Date: 10/15/17 Status: DiscontinuedTresiba FlexTouch 100 units/mL subcutaneous solution 40 unit, SUB-Q, Daily, 0 Refill(s) Start Date: 10/14/17 Status: OrderedTylenol 650 mg, 20.3 mL, Route: PO, Drug form: LIQ, Q6H, Dosing Weight 96.818, kg, PRN Headache 4-6, Start date: 10/15/17 8:15:00 CDT, Duration: 30 day, Stop date: 8:14:00 CDT Notes: Max aoajdpdzppxmt=8952mz/day (4 gm/day). (Same as: Tylenol) Start Date: 10/15/17 Stop Date: 10/15/17 Status: DiscontinuedZyPREXA 10 mg, 1 tab, Route: PO, Drug form: TAB, Daily, Dosing Weight 96.818, kg, Start date: 10/15/17 9:00:00 CDT, Duration: 30 day, Stop date: 11/13/17 9:00:00 CDT Notes: (Same as: ZyPREXA) Start Date: 10/15/17 Stop Date: 10/15/17 Status: Discontinued Results ELECTROLYTES Most recent to oldest [Reference Range]: 1 2 3 Sodium Lvl [135-145 mEq/L] 140 mEq/L (10/14/17 1:03 PM) Potassium Lvl [3.5-5.1 mEq/L] 3.8 mEq/L (10/14/17 1:03 PM) Chloride Lvl [95-109 mEq/L] 105 mEq/L (10/14/17 1:03 PM) CO2 [24-32 mEq/L] 22 mEq/L *LOW* (10/14/17 1:03 PM) AGAP [10.0-20.0 mEq/L] 16.8 mEq/L (10/14/17 1:03 PM) CHEM PANEL Most recent to oldest [Reference Range]: 1 2 3 Creatinine Lvl [0.50-1.40 mg/dL] 0.93 mg/dL (10/14/17 1:03 PM) eGFR 84 mL/min/1.73m2 1 *NA* (10/14/17 1:03 PM) BUN [7-22 mg/dL] 15 mg/dL (10/14/17 1:03 PM) B/C Ratio [6-25] 16 (10/14/17 1:03 PM) Glucose Lvl [70-99 mg/dL] 468 mg/dL 2 *CRIT* (10/14/17 1:03 PM) Total Protein [6.4-8.4 g/dL] 7.3 g/dL (10/14/17 1:03 PM) Albumin Lvl [3.5-5.0 g/dL] 3.4 g/dL *LOW* (10/14/17 1:03 PM) Globulin [2.7-4.2 g/dL] 3.9 g/dL (10/14/17 1:03 PM) A/G Ratio [0.7-1.6] 0.9 (10/14/17 1:03 PM) Calcium Lvl [8.5-10.5 mg/dL] 8.6 mg/dL (10/14/17 1:03 PM) ALT [0-65 unit/L] 20 unit/L (10/14/17 1:03 PM) AST [0-37 unit/L] 7 unit/L (10/14/17 1:03 PM) Alk Phos [39-136 unit/L] 111 unit/L (10/14/17 1:03 PM) Bili Total [0.2-1.3 mg/dL] 0.2 mg/dL (10/14/17 1:03 PM) 1Result Comment: The eGFR is calculated [...] estimated BMI.2Result Comment: Critical Result(s) called to Sherron Steven at 10/14/2017 13:42 by Bridgette Le. Read back OK.CARDIAC ENZYMES Most recent to oldest 1 2 3 [Reference Range]: Total CK [12-191 unit/L] 80 unit/L 85 unit/L (10/15/17 4:52 AM) (10/15/17 12:31 AM) CK MB [0.5-3.6 ng/mL] <1.0 ng/mL <1.0 ng/mL (10/15/17 4:52 AM) (10/15/17 12:31 AM) CK MB Index [0.0-2.5] <1.2 <1.2 (10/15/17 4:52 AM) (10/15/17 12:31 AM) Troponin-I [0.00-0.40 ng/mL] <0.02 ng/mL <0.02 ng/mL <0.02 ng/mL (10/15/17 4:52 AM) (10/15/17 12:31 AM) (10/14/17 6:08 PM) LIPIDS Most recent to oldest [Reference Range]: 1 2 3 CHD Risk [3.90-5.80] 8.38 *HI* (10/15/17 4:52 AM) Chol [<=199 mg/dL] 310 mg/dL *HI* (10/15/17 4:52 AM) Trig [<=149 mg/dL] 308 mg/dL *HI* (10/15/17 4:52 AM) HDL [>=61 mg/dL] 37 mg/dL *LOW* (10/15/17 4:52 AM) LDL (Calculated) [<=99 mg/dL] 211 mg/dL *HI* (10/15/17 4:52 AM) VLDL 62 *NA* (10/15/17 4:52 AM) URINE AND STOOL Most recent to oldest [Reference Range]: 1 2 3 UA Turbidity [Clear] Clear (10/14/17 1:35 PM) UA Color Colorless *NA* (10/14/17 1:35 PM) UA pH [5.0-8.0] 5.0 (10/14/17 1:35 PM) UA Spec Grav [<=1.030] 1.028 (10/14/17 1:35 PM) UA Glucose [Negative mg/dL] 500 mg/dL *ABN* (10/14/17 1:35 PM) UA Blood [Negative] Negative (10/14/17 1:35 PM) UA Ketones [Negative mg/dL] Negative mg/dL *NA* (10/14/17 1:35 PM) UA Protein [Negative mg/dL] Negative mg/dL (10/14/17 1:35 PM) UA Urobilinogen [0.1-1.0 mg/dL] <=1.0 mg/dL *NA* (10/14/17 1:35 PM) UA Bili [Negative] Negative *NA* (10/14/17 1:35 PM) UA Leuk Est [Negative] Negative (10/14/17 1:35 PM) UA Nitrite [Negative] Negative (10/14/17 1:35 PM) UA WBC [0-5 /HPF] <1 /HPF (10/14/17 1:35 PM) UA RBC [0-2 /HPF] <1 /HPF (10/14/17 1:35 PM) UA Sq Epi [Few /LPF] Occasional /LPF *NA* (10/14/17 1:35 PM) HEMATOLOGY Most recent to oldest [Reference Range]: 1 2 3 WBC [3.7-10.4 K/CMM] 8.0 K/CMM (10/14/17 1:03 PM) RBC [4.20-5.40 M/CMM] 3.79 M/CMM *LOW* (10/14/17 1:03 PM) Hgb [12.0-16.0 g/dL] 11.3 g/dL *LOW* (10/14/17 1:03 PM) Hct [36.0-48.0 %] 34.7 % *LOW* (10/14/17 1:03 PM) MCV [80.0-98.0 fL] 91.5 fL (10/14/17 1:03 PM) MCH [27.0-31.0 pg] 29.8 pg (10/14/17 1:03 PM) MCHC [32.0-36.0 g/dL] 32.6 g/dL (10/14/17 1:03 PM) RDW [11.5-14.5 %] 14.5 % (10/14/17 1:03 PM) MPV [7.4-10.4 fL] 9.9 fL (10/14/17 1:03 PM) Platelet [133-450 K/CMM] 257 K/CMM (10/14/17 1:03 PM) Segs [45.0-75.0 %] 64.1 % (10/14/17 1:03 PM) Lymphocytes [20.0-40.0 %] 21.5 % (10/14/17 1:03 PM) Monocytes [2.0-12.0 %] 5.8 % (10/14/17 1:03 PM) Eosinophils [0.0-4.0 %] 7.6 % *HI* (10/14/17 1:03 PM) Basophils [0.0-1.0 %] 1.0 % (10/14/17 1:03 PM) Segs-Bands # [1.5-8.1 K/CMM] 5.1 K/CMM (10/14/17 1:03 PM) Lymphocytes # [1.0-5.5 K/CMM] 1.7 K/CMM (10/14/17 1:03 PM) Monocytes # [0.0-0.8 K/CMM] 0.5 K/CMM (10/14/17 1:03 PM) Eosinophils # [0.0-0.5 K/CMM] 0.6 K/CMM *HI* (10/14/17 1:03 PM) Basophils # [0.0-0.2 K/CMM] 0.1 K/CMM (10/14/17 1:03 PM) Immunizations Given and Recorded Vaccine Date [...] Reg Smoking Cessation Counseling No entered on: 10/14/17 Assessment and Plan Extracted from: Title: Clinical Document Author: Pavithra Ryan MD Date: 10/15/[address] [facility] Impression: Atypical chest CAD history with prior LAD stents in 2016 LVEF 65% Poorly controlled diabetes Severe dyslipidemia Hypertension Chronic back pain Obesity Plan: She ruled out for acute coronary syndrome. At this time I would just continue her on optimal medical therapy and have her follow-up with her primary cloth printing back tender Dr. Franco, she should get a nuclear stress test as an outpatient. She has severe dyslipidemia with LDL in the 200 range. We need to be sure that she is compliant with statin. She likely should be on a medication such as repacked. I would defer this to her primary cloth printing back tender as an outpatient. Hypertension we can just [...] 03:08 98.4 94 145/80 17 94 --- 06/23 23:25 98.4 71 165/92 18 95 --- [...] <0.02 (OCT 15) <0.02 (OCT 15) <0.02 (OCT 14) CK MB <1.0 (OCT 15) <1.0 (OCT 15) Total CK 80 (OCT 15) 85 (OCT 15) Scheduled Meds (): 10/15/17 FLUoxetine (PROzac) 40 mg PO QPM [...] ml IVP Q12H Continuous Infusions: None Extracted from: Title: Clinical Document Author: Nancie Naranjo MD Date: [...] stress test DM - sliding scale Extracted from: Title: Clinical Document Author: Pavithra Ryan MD Date: 10/14/[address] [facility] Chief Complaint- re cp HPI-This is a 47-year-old female who is followed by cardiology Dr. Franco. She has multiple medical problems. She has known CAD and prior LAD stents around 2015. She has had multiple hospitalization s and [...]
--- OUTSIDE RECORDS SUMMARY | 2018-12-17 19:03 | XMS REPORT | Summary of Care ---
:1970 Author Organization [facility] Address [address] [place], [place] [address]- Encounter HQ Anushkantr_kati(FIN) [id number] Date(s): 07/09/18 - 07/09/18 [facility] [address] [place] [address]- Encounter Diagnosis Influenza (Discharge Diagnosis) - 07/09/18 Discharge Disposition: Home or Self Care Attending Physician: Nate Kong DO Vital Signs Most recent to oldest 1 2 3 [Reference Range]: Height 165.1 cm (07/09/18 3:06 PM) Temperature Oral [96.4-99.1 98.0 DegF 98.7 DegF DegF] (07/09/18 10:00 PM) (07/09/18 3:06 PM) Blood Pressure [90-140/60-90 167/99 mmHg 160/119 mmHg 160/106 mmHg mmHg] *HI* *HI* *HI* (07/09/18 10:00 PM) (07/09/18 5:03 PM) (07/09/18 3:06 PM) Respiratory Rate [14-20 BRMIN] 18 BRMIN 18 BRMIN 18 BRMIN (07/09/18 10:00 PM) (07/09/18 5:03 PM) (07/09/18 3:06 PM) Peripheral Pulse Rate [60-100 98 bpm 119 bpm 123 bpm bpm] (07/09/18 10:00 PM) *HI* *HI* (07/09/18 5:03 PM) (07/09/18 3:06 PM) Weight 100 kg (07/09/18 3:06 PM) Body Mass Index 36.69 m2 (07/09/18 3:06 PM) Problem List Condition Effective Dates Status [...] Substance Reaction Severity Status NKDA Active Medications oseltamivir 75 mg oral capsule 75 mg, PO, Q12H, X 5 day, # 10 cap, 0 Refill(s) Start Date: 07/09/18 Stop Date: 07/14/18 Status: OrderedSaline Flush 0.9% 10 mL, Route: IVP, Drug Form: INJ, Dosing Weight 100, kg, PRN, PRN Line Flush, Start date: 07/09/18 15:14:00 CDT, Duration: 30 day, Stop date: 08/08/18 15:13: 00 CDT Notes: (Same as: BD Posiflush) Start Date: 07/09/18 Stop Date: 07/10/18 Status: Discontinued Results ELECTROLYTES Most recent to oldest [Reference Range]: 1 Sodium Lvl [135-145 mEq/L] 134 mEq/L *LOW* (07/09/18 3:42 PM) Potassium Lvl [3.5-5.1 mEq/L] 5.1 mEq/L (07/09/18 3:42 PM) Chloride Lvl [95-109 mEq/L] 100 mEq/L (07/09/18 3:42 PM) CO2 [24-32 mEq/L] 23 mEq/L *LOW* (07/09/18 3:42 PM) AGAP [10.0-20.0 mEq/L] 16.1 mEq/L (07/09/18 3:42 PM) CHEM PANEL Most recent to oldest [Reference Range]: 1 Creatinine Lvl [0.50-1.40 mg/dL] 0.93 mg/dL (07/09/18 3:42 PM) eGFR 72 mL/min/1.73m2 1 *NA* (07/09/18 3:42 PM) BUN [7-22 mg/dL] 13 mg/dL (07/09/18 3:42 PM) B/C Ratio [6-25] 14 (07/09/18 3:42 PM) Glucose Lvl [70-99 mg/dL] 336 mg/dL *HI* (07/09/18 3:42 PM) Total Protein [6.4-8.4 g/dL] 8.6 g/dL *HI* (07/09/18 3:42 PM) Albumin Lvl [3.5-5.0 g/dL] 3.6 g/dL (07/09/18 3:42 PM) Globulin [2.7-4.2 g/dL] 5.0 g/dL *HI* (07/09/18 3:42 PM) A/G Ratio [0.7-1.6] 0.7 (07/09/18 3:42 PM) Calcium Lvl [8.5-10.5 mg/dL] 9.4 mg/dL (07/09/18 3:42 PM) ALT [0-65 unit/L] 21 unit/L (07/09/18 3:42 PM) AST [0-37 unit/L] 25 unit/L (07/09/18 3:42 PM) Alk Phos [39-136 unit/L] 99 unit/L (07/09/18 3:42 PM) Bili Total [0.2-1.3 mg/dL] 0.6 mg/dL (07/09/18 3:42 PM) 1Result Comment: The eGFR is calculated [...] [Reference Range]: 1 Total CK [12-191 unit/L] 127 unit/L (07/09/18 3:42 PM) Troponin-I [0.00-0.40 ng/mL] <0.02 ng/mL (07/09/18 3:42 PM) BNP [<=100 pg/mL] 3 pg/mL (07/09/18 3:42 PM) HEMATOLOGY Most recent to oldest [Reference Range]: 1 WBC [3.7-10.4 K/CMM] 8.9 K/CMM (07/09/18 3:42 PM) RBC [4.20-5.40 M/CMM] 4.81 M/CMM (07/09/18 3:42 PM) Hgb [12.0-16.0 g/dL] 14.6 g/dL (07/09/18 3:42 PM) Hct [36.0-48.0 %] 44.4 % (07/09/18 3:42 PM) MCV [80.0-98.0 fL] 92.4 fL (07/09/18 3:42 PM) MCH [27.0-31.0 pg] 30.4 pg (07/09/18 3:42 PM) MCHC [32.0-36.0 g/dL] 32.9 g/dL (07/09/18 3:42 PM) RDW [11.5-14.5 %] 13.3 % (07/09/18 3:42 PM) MPV [7.4-10.4 fL] 10.1 fL (07/09/18 3:42 PM) Platelet [133-450 K/CMM] 257 K/CMM (07/09/18 3:42 PM) Segs [45.0-75.0 %] 66.2 % (07/09/18 3:42 PM) Lymphocytes [20.0-40.0 %] 23.5 % (07/09/18 3:42 PM) Monocytes [2.0-12.0 %] 7.6 % (07/09/18 3:42 PM) Eosinophils [0.0-4.0 %] 2.2 % (07/09/18 3:42 PM) Basophils [0.0-1.0 %] 0.5 % (07/09/18 3:42 PM) Neutrophils # [1.5-8.1 K/CMM] 5.9 K/CMM (07/09/18 3:42 PM) Lymphocytes # [1.0-5.5 K/CMM] 2.1 K/CMM (07/09/18 3:42 PM) Monocytes # [0.0-0.8 K/CMM] 0.7 K/CMM (07/09/18 3:42 PM) Eosinophils # [0.0-0.5 K/CMM] 0.2 K/CMM (07/09/18 3:42 PM) Immunizations Given and Recorded Vaccine Date [...]
--- OUTSIDE RECORDS SUMMARY | 2018-12-17 19:03 | XMS REPORT | Summary of Care ---
:1970 Author Organization [facility] Address [address] [address], [place] [address]- Encounter HQ Encntr_alisavannah(FIN) [id number] Date(s): 05/16/18 - 05/17/18 [facility] [address] [place] [address]- Encounter Diagnosis Acute headache (Discharge Diagnosis) - 05/16/18 Hypertensive [...] [employer] on 12/16/14.2Data migrated from [employer] on 12/16/14.3x 2- May 2015 Allergies, Adverse Reactions, Alerts Substance Reaction Severity Status NKDA Active Medications Benadryl 25 mg, 0.5 mL, Route: IVP, Drug form: INJ, ONCE, Dosing Weight 100, kg, Priority : STAT, Start date: 05/16/18 19:06:00 MELTING OPERATOR, Stop date: 05/16/18 19:06:00 MELTING OPERATOR Notes: (Same as: Benadryl) Start Date: 05/16/18 Stop Date: 05/16/18 Status: CompletedhydrALAZINE 10 mg, 0.5 mL, Route: IVP, Drug form: INJ, ONCE, Dosing Weight 100, kg, Priority : STAT, Start date: 05/16/18 21:56:00 MELTING OPERATOR, Stop date: 05/16/18 21:56:00 MELTING OPERATOR Notes: (Same as: Apresoline)Push over 5 minutes Start Date: 05/16/18 Stop Date: 05/16/18 Status: CompletedhydrALAZINE 10 mg, Route: IVP, ONCE, Dosing Weight 100, kg, Priority: STAT, Start date: 23:05:00 MELTING OPERATOR, Stop date: 05/16/18 23:05:00 MELTING OPERATOR Start Date: 05/16/18 Stop Date: 05/16/18 Status: CompletedketOROLAC 15 mg/mL injectable solution 15 mg, 0.5 mL, Route: IVP, Drug form: INJ, ONCE, Dosing Weight 100, kg, Priority : STAT, Start date: 05/16/18 21:55:00 MELTING OPERATOR, Stop date: 05/16/18 21:55:00 MELTING OPERATOR Notes: (Same as:Toradol) IV bolus must be [...] Total Volume: 1,000, Start date: 05/16/18 19:06:00 MELTING OPERATOR, Duration: 1 doses or times, Stop date: 05/16/18 20:05:00 MELTING OPERATOR, Bolus Dose, 2.17, m2 Start Date: 05/16/18 Stop Date: 05/16/18 Status: CompletedReglan 10 mg, 2 mL, Route: IVP, Drug form: INJ, ONCE, Dosing Weight 100, kg, Priority: STAT, Start date: 05/16/18 19:05:00 MELTING OPERATOR, Stop date: 05/16/18 19:05:00 MELTING OPERATOR Notes: (Same as: Reglan) Start Date: 05/16/18 Stop Date: 05/16/18 Status: CompletedSaline Flush 0.9% 10 mL, Route: IVP, Drug Form: INJ, Dosing Weight 100, kg, PRN, PRN Line Flush, Start date: 05/16/18 14:00:00 MELTING OPERATOR, Duration: 30 day, Stop date: 06/15/18 13:59: 00 MELTING OPERATOR Notes: (Same as: BD Posiflush) Start Date: 05/16/18 Stop Date: 05/17/18 Status: DiscontinuedTylenol 650 mg, 2 tab, Route: PO, Drug form: TAB, ONCE, Dosing Weight 100, kg, Priority : STAT, Start date: 05/16/18 19:06:00 MELTING OPERATOR, Stop date: 05/16/18 19:06:00 MELTING OPERATOR Notes: Do not exceed 4 gm/day. (Same as: Tylenol) Start Date: 05/16/18 Stop Date: 05/16/18 Status: Completed Results ELECTROLYTES Most recent to oldest [Reference Range]: 1 Sodium Lvl [135-145 mEq/L] 139 mEq/L (05/16/18 2:34 PM) Potassium Lvl [3.5-5.1 mEq/L] 4.1 mEq/L (05/16/18 2:34 PM) Chloride Lvl [95-109 mEq/L] 104 mEq/L (05/16/18 2:34 PM) CO2 [24-32 mEq/L] 29 mEq/L (05/16/18 2:34 PM) AGAP [10.0-20.0 mEq/L] 10.1 mEq/L (05/16/18 2:34 PM) CHEM PANEL Most recent to oldest [Reference Range]: 1 Creatinine Lvl [0.50-1.40 mg/dL] 0.77 mg/dL (05/16/18 2:34 PM) eGFR 91 mL/min/1.73m2 1 *NA* (05/16/18 2:34 PM) BUN [7-22 mg/dL] 9 mg/dL 2 (05/16/18 2:34 PM) B/C Ratio [6-25] 12 3 (05/16/18 2:34 PM) Glucose Lvl [70-99 mg/dL] 291 mg/dL *HI* (05/16/18 2:34 PM) Total Protein [6.4-8.4 g/dL] 6.6 g/dL 4 (05/16/18 2:34 PM) Albumin Lvl [3.5-5.0 g/dL] 3.4 g/dL 5 *LOW* (05/16/18 2:34 PM) Globulin [2.7-4.2 g/dL] 3.2 g/dL 6 (05/16/18 2:34 PM) A/G Ratio [0.7-1.6] 1.1 7 (05/16/18 2:34 PM) Calcium Lvl [8.5-10.5 mg/dL] 7.8 mg/dL 8 *LOW* (05/16/18 2:34 PM) ALT [0-65 unit/L] 37 unit/L 9 (05/16/18 2:34 PM) AST [0-37 unit/L] 41 unit/L 10 *HI* (05/16/18 2:34 PM) Alk Phos [39-136 unit/L] 119 unit/L 11 (05/16/18 2:34 PM) Bili Total [0.2-1.3 mg/dL] <0.1 mg/dL 12 (05/16/18 2:34 PM) 1Result Comment: The eGFR [...] Tests were performed by lipoclear with 1.2 dilution.CARDIAC ENZYMES Most recent to oldest [Reference Range]: 1 Total CK [12-191 unit/L] 203 unit/L 1 *HI* (05/16/18 2:34 PM) Troponin-I [0.00-0.40 ng/mL] <0.02 ng/mL (05/16/18 2:34 PM) BNP [<=100 pg/mL] 102 pg/mL *HI* (05/16/18 2:34 PM) 1Result Comment: Marked lipemic sample. Tests were performed by lipoclear with 1.2 dilution.ENDOCRINOLOGY Most recent to oldest [Reference Range]: 1 S Preg [Negative] Negative *NA* (05/16/18 2:34 PM) HEMATOLOGY Most recent to oldest [Reference Range]: 1 WBC [3.7-10.4 K/CMM] 7.6 K/CMM (05/16/18 2:34 PM) RBC [4.20-5.40 M/CMM] 3.88 M/CMM *LOW* (05/16/18 2:34 PM) Hgb [12.0-16.0 g/dL] 13.9 g/dL (05/16/18 2:34 PM) Hct [36.0-48.0 %] 35.1 % *LOW* (05/16/18 2:34 PM) MCV [80.0-98.0 fL] 90.5 fL (05/16/18 2:34 PM) MCH [27.0-31.0 pg] 36.0 pg *HI* (05/16/18 2:34 PM) MCHC [32.0-36.0 g/dL] 39.8 g/dL *HI* (05/16/18 2:34 PM) RDW [11.5-14.5 %] 13.5 % (05/16/18 2:34 PM) MPV [7.4-10.4 fL] 9.7 fL (05/16/18 2:34 PM) Platelet [133-450 K/CMM] 287 K/CMM (05/16/18 2:34 PM) Segs [45.0-75.0 %] 55.0 % (05/16/18 2:34 PM) Lymphocytes [20.0-40.0 %] 34.3 % (05/16/18 2:34 PM) Monocytes [2.0-12.0 %] 6.2 % (05/16/18 2:34 PM) Eosinophils [0.0-4.0 %] 3.3 % (05/16/18 2:34 PM) Basophils [0.0-1.0 %] 1.2 % *HI* (05/16/18 2:34 PM) Neutrophils # [1.5-8.1 K/CMM] 4.2 K/CMM (05/16/18 2:34 PM) Lymphocytes # [1.0-5.5 K/CMM] 2.6 K/CMM (05/16/18 2:34 PM) Monocytes # [0.0-0.8 K/CMM] 0.5 K/CMM (05/16/18 2:34 PM) Eosinophils # [0.0-0.5 K/CMM] 0.3 K/CMM (05/16/18 2:34 PM) Basophils # [0.0-0.2 K/CMM] 0.1 K/CMM (05/16/18 2:34 PM) RBC Morph Normal (05/16/18 2:34 PM) Plt Morph Normal (05/16/18 2:34 PM) Immunizations Given and Recorded Vaccine Date [...]
--- OUTSIDE RECORDS SUMMARY | 2018-12-17 19:03 | XMS REPORT | Summary of Care ---
:1970 Author Organization [facility] Address [address] [place], [place] [address]- Encounter HQ Elvisr_kati(FIN) [id number] Date(s): 03/19/18 - 03/19/18 [facility] [address] [place] [address]- Encounter Diagnosis Headache (Discharge Diagnosis) - 03/19/18 Headache (Final) - 03/26/18 Type 2 diabetes mellitus without complications (Final) - group home (current) use of insulin (Final) - Essential (primary) hypertension (Final) - Personal history of transient ischemic attack (TIA), and cerebral infarction without residual deficits (Final) - Hyperlipidemia, unspecified (Final) - Atherosclerotic heart disease of [place] coronary artery without angina pectoris (Final) - Presence of coronary angioplasty implant and graft (Final) - Arthrodesis status (Final) - Family history of ischemic heart disease and other diseases of the circulatory system (Final) - Chronic pain syndrome (Final) - 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 (Final) - Other detention (current) drug therapy (Final) - Acquired absence of both cervix and uterus (Final) - Family history of diabetes mellitus (Final) - Family history of arthritis (Final) - 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 antithrombotics/antiplatelets (Final) - Discharge Disposition: Home or Self Care Attending Physician: Rocael Monzon MD Vital Signs Most recent to oldest 1 2 3 [Reference Range]: Height 165.1 cm (03/19/18 4:48 PM) Temperature Oral [96.4-99.1 97.9 DegF 98 DegF 98 DegF DegF] (03/19/18 8:45 PM) (03/19/18 7:44 PM) (03/19/18 4:48 PM) Blood Pressure [90-140/60-90 150/80 mmHg 133/82 mmHg mmHg] *HI* (03/19/18 4:48 PM) (03/19/18 8:45 PM) Systolic Blood Pressure 142 mmHg [90-140 mmHg] *HI* (03/19/18 7:44 PM) Diastolic Blood Pressure 81 mmHg [60-90 mmHg] (03/19/18 7:44 PM) Respiratory Rate [14-20 19 BRMIN 18 BRMIN 16 BRMIN BRMIN] (03/19/18 8:45 PM) (03/19/18 7:44 PM) (03/19/18 4:48 PM) Peripheral Pulse Rate 80 bpm 82 bpm 78 bpm [60-100 bpm] (03/19/18 8:45 PM) (03/19/18 7:44 PM) (03/19/18 4:48 PM) Weight 100.909 kg (03/19/18 4:48 PM) Body Mass Index 37.02 m2 (03/19/18 4:48 PM) Problem List Condition Effective Dates Status Health Status Informant CAD - Coronary artery Resolved disease(Confirmed) Chronic pain syndrome1 02/07/14 Active DM - Diabetes mellitus(Confirmed) Active FH: Diabetes mellitus2 12/17/13 Active HTN - Hypertension(Confirmed) Active Hyperlipidemia(Confirmed) Active Insertion of coronary artery Resolved stent(Confirmed)3 Stroke(Confirmed) Active Stroke(Confirmed) Resolved 1Data migrated from [employer] on 12/16/14.2Data migrated from [employer] on 12/16/14.3x 2- May 2015 Allergies, Adverse Reactions, Alerts No Known Medication Allergies Medications diphenhydrAMINE 50 mg, 1 mL, Route: IVP, Drug form: INJ, ONCE, Dosing Weight 100.909, kg, Priority: STAT, Start date: 03/19/18 20:02:00 TIMBER FELLER, Stop date: 03/19/18 20:02:00 TIMBER FELLER Notes: (Same as: Benadryl) Start Date: 03/19/18 Stop Date: 03/19/18 Status: Completedmetoclopramide 10 mg, 2 mL, Route: IVP, Drug form: INJ, ONCE, Dosing Weight 100.909, kg, Priority: STAT, Start date: 03/19/18 20:02:00 TIMBER FELLER, Stop date: 03/19/18 20:02:00 TIMBER FELLER Notes: (Same as: Reglan) Start Date: 03/19/18 Stop Date: 03/19/18 Status: CompletedNS (Bolus) IV 1,000 mL, 1,000 ml/hr, Infuse Over: 1 hr, Route: IV, 1,000, Drug form: INJ, ONCE , Priority: STAT, Dosing Weight 100.909 kg, Start date: 03/19/18 20:02:00 TIMBER FELLER, Stop date: 03/19/18 20:02:00 TIMBER FELLER Start Date: 03/19/18 Stop Date: 03/19/18 Status: Completed Results Most recent to oldest [Reference Range]: 1 Neutrophils # [1.5-8.1 K/CMM] 5.4 K/CMM (03/19/18 8:13 PM) Lymphocytes # [1.0-5.5 K/CMM] 2.8 K/CMM (03/19/18 8:13 PM) Monocytes # [0.0-0.8 K/CMM] 0.7 K/CMM (03/19/18 8:13 PM) Eosinophils # [0.0-0.5 K/CMM] 0.2 K/CMM (03/19/18 8:13 PM) Basophils # [0.0-0.2 K/CMM] 0.1 K/CMM (03/19/18 8:13 PM) eGFR 74 mL/min/1.73m2 1 *NA* (03/19/18 8:13 PM) AGAP [10.0-20.0 mEq/L] 16.1 mEq/L (03/19/18 8:13 PM) Basophils [0.0-1.0 %] 0.7 % (03/19/18 8:13 PM) BUN [7-22 mg/dL] 12 mg/dL (03/19/18 8:13 PM) Calcium Lvl [8.5-10.5 mg/dL] 8.3 mg/dL *LOW* (03/19/18 8:13 PM) Chloride Lvl [95-109 mEq/L] 102 mEq/L (03/19/18 8:13 PM) CO2 [24-32 mEq/L] 26 mEq/L (03/19/1813 PM) Creatinine Lvl [0.50-1.40 mg/dL] 1.03 mg/dL (03/19/18:13 PM) Eosinophils [0.0-4.0 %] 2.5 % (03/19/18 PM) Glucose Lvl [70-99 mg/dL] 394 mg/dL *HI* (03/19/18 PM) Hct [36.0-48.0 %] 35.1 % *LOW* (03/19/18 PM) Hgb [12.0-16.0 g/dL] 11.6 g/dL *LOW* (03/19/18 PM) INR [0.85-1.17] 0.97 (03/19/18 PM) Potassium Lvl [3.5-5.1 mEq/L] 4.1 mEq/L (03/19/18 PM) Lymphocytes [20.0-40.0 %] 30.3 % (03/19/18 PM) MCH [27.0-31.0 pg] 29.7 pg (03/19/18: PM) MCHC [32.0-36.0 g/dL] 33.0 g/dL (03/19/18 PM) MCV [80.0-98.0 fL] 90.0 fL (03/19/18 PM) Monocytes [2.0-12.0 %] 7.9 % (03/19/18 PM) MPV [7.4-10.4 fL] 9.8 fL (03/19/18 PM) Sodium Lvl [135-145 mEq/L] 140 mEq/L (03/19/18 PM) Platelet [133-450 K/CMM] 278 K/CMM (03/19/18 PM) Segs [45.0-75.0 %] 58.6 % (03/19/18 PM) PT [12.0-14.7 seconds] 12.9 seconds (03/19/18: PM) PTT [22.9-35.8 seconds] 27.5 seconds (11/26/18 8:13 PM) RBC [4.20-5.40 M/CMM] 3.90 M/CMM *LOW* (03/19/18 8:13 PM) RDW [11.5-14.5 %] 14.5 % (03/19/18 8:13 PM) Troponin-I [0.00-0.40 ng/mL] <0.02 ng/mL (03/19/18 8:13 PM) WBC [3.7-10.4 K/CMM] 9.2 K/CMM (03/19/18 8:13 PM) 1Result Comment: The eGFR is calculated [...]
--- OUTSIDE RECORDS SUMMARY | 2018-12-17 19:03 | XMS REPORT | Summary of Care ---
:1970 Author Organization [facility] Address [address] [place] [id number]- Encounter HQ Gilberto(FIN) [id number] Date(s): 09/20/17 - 09/22/[address] Professional Services provided by [facility] [place] [address]- Discharge Disposition: Home or Self Care Attending Physician: Shan Valdovinos MD Admitting Physician: Shan Valdovinos MD Referring Physician: Radha Bee DO Vital Signs Most recent to oldest [Reference 1 2 3 Range]: Height 165.1 cm 165.1 cm (09/20/17 9:50 PM) (09/20/17 9:44 PM) Blood Pressure [90-140/60-90 160/89 mmHg 129/76 mmHg 125/91 mmHg mmHg] *HI* (09/22/17 8:00 AM) (09/22/17 7:00 AM) (09/22/17 9:00 AM) Respiratory Rate [14-20 BRMIN] 12 BRMIN 16 BRMIN 18 BRMIN *LOW* (09/22/17 6:00 AM) (09/22/17 5:00 AM) (09/22/17 7:00 AM) Weight 105.009 kg 95.909 kg (09/20/17 9:50 PM) (09/20/17 9:44 PM) Body Mass Index 38.52 m2 35.19 m2 (09/20/17 9:50 PM) (09/20/17 9:44 PM) Problem List Condition Effective Dates Status [...] Status NKDA Active Medications acetaminophen 1,000 mg, 2 tab, Route: PO, Drug form: TAB, Q6H, Dosing Weight 105.009, kg, PRN Pain Score 1-5, Start date: 09/21/17 10:02:00 CDT, Duration: 30 day, Stop date: 10/21/17 10:01:00 CDT Notes: Max acetaminophen 4000 mg/day (4 gm/day). (Same as: Tylenol Extra Strength) Start Date: 09/21/17 Stop Date: 09/22/17 Status: Discontinuedacetaminophen-hydrocodone 325 mg-10 mg oral tablet 1 tab, Route: PO, Drug Form: TAB, Dosing Weight 95.909, kg, Q4H, PRN Pain Score 4-6, Start date: 09/20/17 21:37:00 CDT, Duration: 30 day, Stop date: 10/20/17 21 :36:00 CDT Notes: Do not exceed 4gm/day of acetaminophen. (Same as: Mills 325/10) Start Date: 09/20/17 Stop Date: 09/21/17 Status: Discontinuedbisacodyl 10 mg, 1 supp, Route: TX, Drug form: SUPP, Daily, Dosing Weight 95.909, kg, PRN Constipation, Start date: 09/20/17 21:37:00 CDT, Duration: 30 day, Stop date: 21:36:00 CDT Notes: (Same As: Dulcolax, Bisco-Lax) Start Date: 09/20/17 Stop Date: 09/22/17 Status: Discontinuedcalcium carbonate 500 mg (200 mg elemental calcium) oral tablet 500 mg, 1 tab, Route: PO, Drug form: CHEWTAB, PRN, Dosing Weight 105.009, kg, PRN Abnormal Lab Result, FOR ICU USE ONLY, Start date: 09/21/17 2:48:00 CDT, Duration: 30 day, Stop date: 10/21/17 2:47:00 CDT Notes: (Same As: Sulys)Calcium Carbonate 500 qy=293 mg elemental calcium Dose=_ mg calcium carbonate ( mg elemental calcium) Start Date: 09/21/17 Stop Date: 09/22/17 Status: Discontinuedcalcium carbonate 500 mg (200 mg elemental calcium) oral tablet 1,000 mg, 2 tab, Route: PO, Drug form: CHEWTAB, PRN, Dosing Weight 105.009, kg, PRN Abnormal Lab Result, FOR ICU USE ONLY, Start date: 09/21/17 2:48:00 CDT, Duration: 30 day, Stop date: 10/21/17 2:47:00 CDT Notes: (Same As: Sulys)Calcium Carbonate 500 hq=309 mg elemental calcium Dose=_ mg calcium carbonate ( mg elemental calcium) Start Date: 09/21/17 Stop Date: 09/22/17 Status: Discontinuedcalcium gluconate + Sodium Chloride 0.9% IV 50 mL 1 gm, 10 mL, Route: IVPB, PRN, Dosing Weight 105.009, kg, PRN Abnormal Lab Result, Start date: 09/21/17 2:48:00 CDT, Duration: 30 day, Stop date: 10/21/17 2:47:00 CDT, FOR ICU USE ONLY Notes: WASTE: F/P - Sink; E - Municipal Trash Bin Start Date: 09/21/17 Stop Date: 09/22/17 Status: Discontinuedcelecoxib 200 mg, 1 cap, Route: PO, Drug form: CAP, Q12H, Dosing Weight 105.009, kg, For patients LESS than 75years old. Hold in all patients if CrCl < 30 mL/min , Start date: 09/21/17 21:00:00 CDT, Duration: 48 hr, Stop date: 09/23/17 9:00: 00 CDT Notes: NSAID. Please check indication. Not for seizure. (Same As: CeleBREX) Start Date: 09/21/17 Stop Date: 09/22/17 Status: DiscontinuedDextrose 50% Syringe 25 gm, 50 mL, Route: IVP, Drug Form: INJ, Dosing Weight 105.009, kg, PRN, PRN Blood Glucose Results,Start date: 09/20/17 22:41:00 CDT, Duration: 30 day, Stop date: 10/20/17 22:40:00 CDT Start Date: 09/20/17 Stop Date: 09/22/17 Status: DiscontinuedDextrose 50% Syringe 12.5 gm, 25 mL, Route: IVP, Drug Form: INJ, Dosing Weight 105.009, kg, PRN, PRN Blood Glucose Results, Start date: 09/20/17 22:41:00 CDT, Duration: 30 day, Stop date: 10/20/17 22:40:00 CDT Start Date: 09/20/17 Stop Date: 09/22/17 Status: DiscontinuedDextrose 50% Syringe 12.5 gm, 25 mL, Route: IVP, Drug Form: INJ, Dosing Weight 95.909, kg, PRN, PRN Abnormal Lab Result, Start date: 09/20/17 21:37:00 CDT, Duration: 30 day, Stop date: 10/20/17 21:36:00 CDT Start Date: 09/20/17 Stop Date: 09/20/17 Status: DiscontinuedDextrose 50% Syringe 25 gm, 50 mL, Route: IVP, Drug Form: INJ, Dosing Weight 95.909, kg, PRN, PRN Abnormal Lab Result, Start date: 09/20/17 21:37:00 CDT, Duration: 30 day, Stop date: 10/20/17 21:36:00 CDT Start Date: 09/20/17 Stop Date: 09/20/17 Status: DiscontinuedDextrose 50% Syringe 6.25 gm, 12.5 mL, Route: IVP, Drug Form: INJ, Dosing Weight 95.909, kg, PRN, PRN Abnormal Lab Result, Start date: 09/20/17 21:37:00 CDT, Duration: 30 day, Stop date: 10/20/17 21:36:00 CDT Start Date: 09/20/17 Stop Date: 09/20/17 Status: DiscontinuedDextrose 50% Syringe 12.5 gm, 25 mL, Route: IVP, Drug Form: INJ, Dosing Weight 105.009, kg, PRN, PRN Blood Glucose Results, Start date: 09/22/17 4:41:00 CDT, Duration: 30 day, Stop date: 10/22/17 4:40:00 CDT Start Date: 09/22/17 Stop Date: 09/22/17 Status: DiscontinuedDextrose 50% Syringe 25 gm, 50 mL, Route: IVP, Drug Form: INJ, Dosing Weight 105.009, kg, PRN, PRN Blood Glucose Results,Start date: 09/22/17 4:41:00 CDT, Duration: 30 day, Stop date: 10/22/17 4:40:00 CDT Start Date: 09/22/17 Stop Date: 09/22/17 Status: Discontinueddocusate 100 mg, 1 cap, Route: PO, Drug form: CAP, Q12H, Dosing Weight 95.909, kg, Start date: 09/21/17 9:00:00 CDT, Duration: 30 day, Stop date: 10/20/17 21:00:00 CDT Notes: (Same as: Colace) (Do Not Crush) Start Date: 09/21/17 Stop Date: 09/22/17 Status: Discontinuedgabapentin 300 mg, 1 cap, Route: PO, Drug form: CAP, Q8H, Dosing Weight 105.009, kg, Start date: 09/23/17 16:00:00 CDT, Duration: 30 day, Stop date: 10/23/17 8:00:00 CDT Notes: (Same as: Neurontin) Start Date: 09/23/17 Stop Date: 09/22/17 Status: Canceledgemfibrozil 600 mg, 1 tab, Route: PO, Drug form: TAB, BID, Dosing Weight 105.009, kg, Start date: 09/21/17 9:00:00 CDT, Duration: 30 day, Stop date: 10/20/17 17:00:00 CDT Notes: (Same as: Lopid) Start Date: 09/21/17 Stop Date: 09/22/17 Status: Discontinuedglucagon 1 mg, Route: IM, Drug form: PDR/INJ, PRN, Dosing Weight 105.009, kg, PRN Blood Glucose Results, Start date: 09/22/17 4:41:00 CDT, Duration: 30 day, Stop date: 10/22/17 4:40:00 CDT Start Date: 09/22/17 Stop Date: 09/22/17 Status: DiscontinuedhydrALAZINE 20 mg, 1 mL, Route: IVP, Drug form: INJ, Q4H, Dosing Weight 105.009, kg, PRN Hypertension, Start date: 09/20/17 22:15:00 CDT, Duration: 30 day, Stop date: 22:14:00 CDT Notes: (Same as: Apresoline)Push over 5 minutes Start Date: 09/20/17 Stop Date: 09/22/17 Status: Discontinuedinsulin isophane-NPH 15 unit, 0.15 mL, Route: SUB-Q, Drug form: INJ, Q8H, Dosing Weight 105.009, kg, Start date: 180:00:00 CDT, Duration: 30 day, Stop date: 10/21/17 16:00:00 CDT Notes: Roll in palms of hands gently; Do not shake vigorously. (Same as: Humulin N)Do not hold insulin without contacting prescriberWASTE: F/P - Black; E - Municipal Trash Bin Stable for 28 days at room temperatureExpires in ____ _ days from Date Start Date: 09/22/17 Stop Date: 09/22/17 Status: Discontinuedinsulin isophane-NPH 10 unit, Route: SUB-Q, Q12H, Dosing Weight 105.009, kg, Start date: 09/21/17 21: 00:00 CDT, Duration:30 day, Stop date: 10/21/17 9:00:00 CDT Start Date: 09/21/17 Stop Date: 09/21/17 Status: CanceledInsulin regular 6 unit, 0.06 mL, Route: SUB-Q, Drug form: SOLN, TID-Before Meals, Dosing Weight 105.009, kg, PRN Blood Glucose Results, Start date: 09/22/17 4:41:00 CDT, Duration: 30 day, Stop date: 10/22/17 4:40:00 CDT Notes: (Same as: Humulin R) Roll in palms of hands gently; Do not shake vigorously. "single patientuse only"(Restricted to patients requiring a dose &gt ; 60 units)WASTE: F/P - Black; E - Municipal Trash Bin Stable for 28 days at room temperatureExpires in days from Date Start Date: 09/22/17 Stop Date: 09/22/17 Status: DiscontinuedInsulin regular 3 unit, 0.03 mL, Route: SUB-Q, Drug form: SOLN, TID-Before Meals, Dosing Weight 105.009, kg, PRN Blood Glucose Results, Start date: 09/22/17 4:41:00 CDT, Duration: 30 day, Stop date: 10/22/17 4:40:00 CDT Notes: (Same as: Humulin R) Roll in palms of hands gently; Do not shake vigorously. "single patientuse only"(Restricted to patients requiring a dose &gt ; 60 units)WASTE: F/P - Black; E - Municipal Trash Bin Stable for 28 days at room temperatureExpires in days from Date Start Date: 09/22/17 Stop Date: 09/22/17 Status: DiscontinuedInsulin regular 2 unit, 0.02 mL, Route: SUB-Q, Drug form: SOLN, Bedtime, Dosing Weight 105.009, kg, PRN Blood Glucose Results, Start date: 09/22/17 4:41:00 CDT, Duration: 30 day, Stop date: 10/22/17 4:40:00 CDT Notes: (Same as: Humulin R) Roll in palms of hands gently; Do not shake vigorously. "single patientuse only"(Restricted to patients requiring a dose &gt ; 60 units)WASTE: F/P - Black; E - Municipal Trash Bin Stable for 28 days at room temperatureExpires in days from Date Start Date: 09/22/17 Stop Date: 09/22/17 Status: DiscontinuedInsulin regular 1 unit, 0.01 mL, Route: SUB-Q, Drug form: SOLN, Bedtime, Dosing Weight 105.009, kg, PRN Blood Glucose Results, Start date: 09/22/17 4:41:00 CDT, Duration: 30 day, Stop date: 10/22/17 4:40:00 CDT Notes: (Same as: Humulin R) Roll in palms of hands gently; Do not shake vigorously. "single patientuse only"(Restricted to patients requiring a dose &gt ; 60 units)WASTE: F/P - Black; E - Municipal Trash Bin Stable for 28 days at room temperatureExpires in days from Date Start Date: 09/22/17 Stop Date: 09/22/17 Status: DiscontinuedInsulin regular 4 unit, 0.04 mL, Route: SUB-Q, Drug form: SOLN, Bedtime, Dosing Weight 105.009, kg, PRN Blood Glucose Results, Start date: 09/22/17 4:41:00 CDT, Duration: 30 day, Stop date: 10/22/17 4:40:00 CDT Notes: (Same as: Humulin R) Roll in palms of hands gently; Do not shake vigorously. "single patientuse only"(Restricted to patients requiring a dose &gt ; 60 units)WASTE: F/P - Black; E - Municipal Trash Bin Stable for 28 days at room temperatureExpires in days from Date Start Date: 09/22/17 Stop Date: 09/22/17 Status: DiscontinuedInsulin regular 3 unit, 0.03 mL, Route: SUB-Q, Drug form: SOLN, Bedtime, Dosing Weight 105.009, kg, PRN Blood Glucose Results, Start date: 09/22/17 4:41:00 CDT, Duration: 30 day, Stop date: 10/22/17 4:40:00 CDT Notes: (Same as: Humulin R) Roll in palms of hands gently; Do not shake vigorously. "single patientuse only"(Restricted to patients requiring a dose &gt ; 60 units)WASTE: F/P - Black; E - Municipal Trash Bin Stable for 28 days at room temperatureExpires in days from Date Start Date: 09/22/17 Stop Date: 09/22/17 Status: DiscontinuedInsulin regular 9 unit, 0.09 mL, Route: SUB-Q, Drug form: SOLN, TID-Before Meals, Dosing Weight 105.009, kg, PRN Blood Glucose Results, Start date: 09/22/17 4:41:00 CDT, Duration: 30 day, Stop date: 10/22/17 4:40:00 CDT Notes: (Same as: Humulin R) Roll in palms of hands gently; Do not shake vigorously. "single patientuse only"(Restricted to patients requiring a dose &gt ; 60 units)WASTE: F/P - Black; E - Municipal Trash Bin Stable for 28 days at room temperatureExpires in days from Date Start Date: 09/22/17 Stop Date: 09/22/17 Status: DiscontinuedInsulin regular 15 unit, 0.15 mL, Route: SUB-Q, Drug form: SOLN, TID-Before Meals, Dosing Weight 105.009, kg, PRN Blood Glucose Results, Start date: 09/22/17 4:41:00 CDT , Duration: 30 day, Stop date: 10/22/17 4:40:00 CDT Notes: (Same as: Humulin R) Roll in palms of hands gently; Do not shake vigorously. "single patientuse only"(Restricted to patients requiring a dose &gt ; 60 units)WASTE: F/P - Black; E - Municipal Trash Bin Stable for 28 days at room temperatureExpires in days from Date Start Date: 09/22/17 Stop Date: 09/22/17 Status: DiscontinuedInsulin regular 12 unit, 0.12 mL, Route: SUB-Q, Drug form: SOLN, TID-Before Meals, Dosing Weight 105.009, kg, PRN Blood Glucose Results, Start date: 09/22/17 4:41:00 CDT , Duration: 30 day, Stop date: 10/22/17 4:40:00 CDT Notes: (Same as: Humulin R) Roll in palms of hands gently; Do not shake vigorously. "single patientuse only"(Restricted to patients requiring a dose &gt ; 60 units)WASTE: F/P - Black; E - Municipal Trash Bin Stable for 28 days at room temperatureExpires in days from Date Start Date: 09/22/17 Stop Date: 09/22/17 Status: DiscontinuedInsulin regular 100 unit + Sodium Chloride 0.9% (titrate) 99 mL 99 mL, Rate: Start Insulin Drip Per ICU Protocol, Dosing Weight 105.009, kg, Route: IVPB, Total Volume: 100, Start Date: 09/20/17 22:41:00 CDT, Duration: 30 day, Stop date: 10/20/17 22:40:00 CDT, Replace Every: 24 hr Notes: (Same as: Humulin R and NovoLIN R)WASTE: F/P - Black; E - Municipal Trash Bin (Do not shake) Start Date: 09/20/17 Stop Date: 09/22/17 Status: Discontinuedinsulin regular 100 units/mL human recombinant 3 unit, 0.03 mL, Route: SUB-Q, Drug form: SOLN, PRN, Dosing Weight 95.909, kg, PRN Abnormal Lab Result, Start date: 09/20/17 21:37:00 CDT, Duration: 30 day, Stop date: 10/20/17 21:36:00 CDT Notes: (Same as: Humulin R) Roll in palms of hands gently; Do not shake vigorously. "single patientuse only"(Restricted to patients requiring a dose &gt ; 60 units)WASTE: F/P - Black; E - Municipal Trash Bin Stable for 28 days at room temperatureExpires in days from Date Start Date: 09/20/17 Stop Date: 09/20/17 Status: Discontinuedinsulin regular 100 units/mL human recombinant 5 unit, 0.05 mL, Route: SUB-Q, Drug form: SOLN, PRN, Dosing Weight 95.909, kg, PRN Abnormal Lab Result, Start date: 09/20/17 21:37:00 CDT, Duration: 30 day, Stop date: 10/20/17 21:36:00 CDT Notes: (Same as: Humulin R) Roll in palms of hands gently; Do not shake vigorously. "single patientuse only"(Restricted to patients requiring a dose &gt ; 60 units)WASTE: F/P - Black; E - Municipal Trash Bin Stable for 28 days at room temperatureExpires in days from Date Start Date: 09/20/17 Stop Date: 09/20/17 Status: Discontinuedinsulin regular 100 units/mL human recombinant 7 unit, 0.07 mL, Route: SUB-Q, Drug form: SOLN, PRN, Dosing Weight 95.909, kg, PRN Abnormal Lab Result, Start date: 09/20/17 21:37:00 CDT, Duration: 30 day, Stop date: 10/20/17 21:36:00 CDT Notes: (Same as: Humulin R) Roll in palms of hands gently; Do not shake vigorously. "single patientuse only"(Restricted to patients requiring a dose &gt ; 60 units)WASTE: F/P - Black; E - Municipal Trash Bin Stable for 28 days at room temperatureExpires in days from Date Start Date: 09/20/17 Stop Date: 09/20/17 Status: DiscontinuedketOROLAC 30 mg, Route: IVP, ONCE, Dosing Weight 105.009, kg, Start date: 09/21/17 10:02: 00 CDT, Stop date: 09/21/17 10:02:00 CDT Start Date: 09/21/17 Stop Date: 09/21/17 Status: Discontinuedlabetalol 10 mg, 2 mL, Route: IVP, Drug form: INJ, Q15Min, Dosing Weight 105.009, kg, PRN Hypertension, Start date: 09/20/17 22:15:00 CDT, Duration: 3 doses or times, Stop date: Limited # of times Start Date: 09/20/17 Stop Date: 09/22/17 Status: Discontinuedlansoprazole 30 mg, 10 mL, Route: NG, Drug form: SUSP, Before Breakfast, Dosing Weight 105.009, kg, Start date: 09/21/17 10:30:00 CDT, Duration: 30 day, Stop date: 7:30:00 CDT Notes: Take 1 hour before or 2 hours after meal; Expires in 14 days. Shake well before use. (Same as:Prevacid) Compounded Product - formulation not commercially available Start Date: 09/21/17 Stop Date: 09/22/17 Status: DiscontinuedLidoderm 5% topical film (patch) 1 patch, Route: TOP, Q24H, Drug form: FILM, Start date: 09/21/17 11:00:00 CDT, Duration: 30 day, Stop date: 10/20/17 11:00:00 CDT Notes: Apply only once for up to 12 hours in e15-qoqu period (12 hours on and 12 hours off).(Same as: Lidoderm)"Remove old patch before application of new patch" Start Date: 09/21/17 Stop Date: 09/22/17 Status: DiscontinuedLipitor 80 mg, 1 tab, Route: PO, Drug form: TAB, Bedtime, Dosing Weight 105.009, kg, Start date: 09/21/17 21:00:00 CDT, Duration: 30 day, Stop date: 10/20/17 21:00: 00 CDT Notes: Same as Lipitor Start Date: 09/21/17 Stop Date: 09/22/17 Status: DiscontinuedLovenox 30 mg, 0.3 mL, Route: SUB-Q, Drug form: INJ, [id number], Dosing Weight 105.009, kg , Start date: 09/21/17 22:00:00 CDT, Duration: 30 day, Stop date: 10/21/17 12:00 :00 CDT Notes: (Same as: Lovenox) Start Date: 09/21/17 Stop Date: 09/22/17 Status: Discontinuedmagnesium oxide 800 mg, 2 tab, Route: PO, Drug form: TAB, PRN, Dosing Weight 105.009, kg, PRN Abnormal Lab Result, FOR ICU USE ONLY, Start date: 09/21/17 2:48:00 CDT, Duration: 30 day, Stop date: 10/21/17 2:47:00 CDT Notes: (Same as: Mag-Ox 400)Magnesium oxide 560lm=619ul elemental magnesiumDose= ____mg magnesium oxide (___mg elemental magnesium) Start Date: 09/21/17 Stop Date: 09/22/17 Status: Discontinuedmagnesium sulfate 2 gm, 50 mL, Route: IVPB, Drug form: INJ, PRN, Dosing Weight 105.009, kg, PRN Abnormal Lab Result, Start date: 09/21/17 2:48:00 CDT, Duration: 30 day, Stop date: 10/21/17 2:47:00 CDT, FOR ICU USE ONLY Notes: WASTE: F/P - Sink; E - Municipal Trash Bin Start Date: 09/21/17 Stop Date: 09/22/17 Status: Discontinuedmethocarbamol 1,000 mg, 2 tab, Route: PO, Drug form: TAB, Q8H, Dosing Weight 105.009, kg, PRN Muscle Spasms, Startdate: 09/21/17 10:02:00 CDT, Duration: 30 day, Stop date: 10:01:00 CDT Notes: (Same as:Robaxin) Start Date: 09/21/17 Stop Date: 09/22/17 Status: Discontinuedmorphine Sulfate 2 mg, 0.5 mL, Route: IVP, Drug form: SOLN, Q1H, Dosing Weight 95.909, kg, PRN Pain Score 7-10, Startdate: 09/20/17 21:37:00 CDT, Duration: 30 day, Stop date: 10/20/17 21:36:00 CDT Notes: (Same as:MORPhine Sulfate) Start Date: 09/20/17 Stop Date: 09/21/17 Status: DiscontinuedNS 1,000 mL 1,000 mL, Rate: 50 ml/hr, Infuse over: 20 hr, Route: IV, Dosing Weight 105.009 kg, Total Volume: 1,000, Start date: 09/21/17 0:27:00 CDT, Duration: 30 day, Stop date: 10/21/17 0:26:00 CDT, 2.23, m2 Start Date: 09/21/17 Stop Date: 09/22/17 Status: Discontinuedondansetron 4 mg, 2 mL, Route: IVP, Drug form: INJ, Q8H, Dosing Weight 95.909, kg, PRN Nausea & Vomiting, Start date: 09/20/17 21:37:00 CDT, Duration: 30 day, Stop date: 10/20/17 21:36:00 CDT Notes: (Same as: Zofran) MEDICATION WASTE Product Size: 4 mgProduct Wasted: ___ mg Start Date: 09/20/17 Stop Date: 09/22/17 Status: Discontinuedpolyethylene glycol 3350 17 gm, 1 pkt, Route: PO, Drug form: PWDR, Daily, Dosing Weight 95.909, kg, Start date: 09/21/17 9:00:00 CDT, Duration: 30 day, Stop date: 10/20/17 9:00:00 CDT Notes: Dissolve in 8 oz of water or juice.(Same as: Miralax) Start Date: 09/21/17 Stop Date: 09/22/17 Status: Discontinuedpotassium chloride 10 mEq, 50 mL, Route: IVPB, Drug form: INJ, Q1H, Dosing Weight 105.009, kg, Total Dose=20 meq, Startdate: 09/21/17 3:00:00 CDT, Duration: 2 doses or times, Stop date: 09/21/17 4:00:00 CDT, Peripheral Line Notes: (Same as: KCL) Infuse over 2 hours. Start Date: 09/21/17 Stop Date: 09/21/17 Status: Completedpotassium chloride 20 mEq, 15 mL, Route: NJ, Drug form: LIQ, PRN, Dosing Weight 105.009, kg, PRN Abnormal Lab Result, Start date: 09/21/17 5:41:00 CDT, Duration: 30 day, Stop date: 10/21/17 5:40:00 CDT, FOR ICU USE ONLY Notes: (Same as: Potassium Chloride) Start Date: 09/21/17 Stop Date: 09/22/17 Status: Discontinuedpotassium chloride 20 mEq, 1 tab, Route: PO, Drug form: ERTAB, PRN, Dosing Weight 105.009, kg, PRN Abnormal Lab Result,Start date: 09/21/17 5:41:00 CDT, Duration: 30 day, Stop date: 10/21/17 5:40:00 CDT, FOR ICU USE ONLY Notes: (Same as: K-Dur 20)"Do Not Crush"For patients unable to swallow tablet, dissolve in one half glass of water. Allow about 2 minutes for the tablets to disintegrate. Stir before giving to prepare slurry and administer.Please exclude Patients with feeding tube less than 14 [place] (Dobhoff, J-tube etc) and pediatric and patients. With food and full glass of water Start Date: 09/21/17 Stop Date: 09/22/17 Status: Discontinuedpotassium chloride 10 mEq, 50 mL, Route: IVPB, Drug form: INJ, PRN, Dosing Weight 105.009, kg, PRN Abnormal Lab Result,Via peripheral line, Start date: 09/21/17 5:41:00 CDT, Duration: 30 day, Stop date: 10/21/17 5:40:00CDT, FOR ICU USE ONLY Notes: (Same as: KCL) Infuse over 2 hours. Start Date: 09/21/17 Stop Date: 09/22/17 Status: Discontinuedpotassium chloride 20 mEq, 100 mL, Route: IVPB, Drug form: INJ, PRN, Dosing Weight 105.009, kg, PRN Abnormal Lab Result, Via central line, Start date: 09/21/17 5:41:00 CDT, Duration: 30 day, Stop date: 10/21/17 5:40:00 CDT, FOR ICU USE ONLY Notes: (Same as: KCL) Infuse no faster than 10 mEq/hr if given peripherally. Start Date: 09/21/17 Stop Date: 09/22/17 Status: Discontinuedpotassium phosphate + Sodium Chloride 0.9% IV 250 mL 30 mmol, 10 mL, Route: IVPB, PRN, Dosing Weight 105.009, kg, PRN Abnormal Lab Result, Start date: 09/21/17 2:48:00 CDT, Duration: 30 day, Stop date: 10/21/17 2:47:00 CDT, FOR ICU USE ONLY Notes: (Same as: K Phosphate.) 1 mMol phoshate has 1.47 mEq potassium Infuse over 4 hours Start Date: 09/21/17 Stop Date: 09/22/17 Status: Discontinuedpotassium phosphate + Sodium Chloride 0.9% IV 250 mL 45 mmol, 15 mL, Route: IVPB, PRN, Dosing Weight 105.009, kg, PRN Abnormal Lab Result, Start date: 09/21/17 2:48:00 CDT, Duration: 30 day, Stop date: 10/21/17 2:47:00 CDT, FOR ICU USE ONLY Notes: (Same as: K Phosphate.) 1 mMol phoshate has 1.47 mEq potassium Infuse over 4 hours Start Date: 09/21/17 Stop Date: 09/22/17 Status: Discontinuedpotassium phosphate + Sodium Chloride 0.9% IV 250 mL 15 mmol, 5 mL, Route: IVPB, PRN, Dosing Weight 105.009, kg, PRN Abnormal Lab Result, Start date: 09/21/17 2:48:00 CDT, Duration: 30 day, Stop date: 10/21/17 2:47:00 CDT, FOR ICU USE ONLY Notes: (Same as: K Phosphate.) 1 mMol phoshate has 1.47 mEq potassium Infuse over 4 hours Start Date: 09/21/17 Stop Date: 09/22/17 Status: Discontinuedpotassium phosphate-sodium phosphate 250 mg-280 mg-160 mg oral powder for reconstitution 2 pkt, Route: PO, Drug Form: PDR/REC, Dosing Weight 105.009, kg, PRN, PRN Abnormal Lab Result, FOR ICU USE ONLY, Start date: 09/21/17 2:48:00 CDT, Duration: 30 day, Stop date: 10/21/17 2:47:00 CDT Notes: (Same as: Phos-NaK) Each 1.5 gm pkt has 250mg phosphorous. Mix w/2.5oz water and stir. Start Date: 09/21/17 Stop Date: 09/22/17 Status: DiscontinuedPROzac 40 mg, 2 cap, Route: PO, Drug form: CAP, QPM, Dosing Weight 105.009, kg, Start date: 09/21/17 17:00:00 CDT, Duration: 30 day, Stop date: 10/20/17 17:00:00 CDT Notes: (Same as: Prozac, Sarafem) Start Date: 09/21/17 Stop Date: 09/22/17 Status: Discontinuedremove patch 1 patch, Route: TOP, Bedtime, Drug form: ERFILM, Start date: 09/21/17 21:00:00 CDT, Duration: 30 day, Stop date: 10/20/17 21:00:00 CDT Notes: Remove patch 12 hours after application each day. Start Date: 09/21/17 Stop Date: 09/22/17 Status: DiscontinuedSaline Flush 0.9% 10 ml, Route: IVP, Drug Form: INJ, Dosing Weight 95.909, kg, PRN, PRN Line Flush , Start date: 09/20/17 21:37:00 CDT, Duration: 30 day, Stop date: 10/20/17 21:36 :00 CDT Notes: Same as: BD Posiflush Sterile Start Date: 09/20/17 Stop Date: 09/22/17 Status: DiscontinuedSaline Flush 0.9% 10 ml, Route: IVP, Drug Form: INJ, Dosing Weight 95.909, kg, Q12H, Start date: 09/21/17 9:00:00 CDT,Duration: 30 day, Stop date: 10/20/17 21:00:00 CDT Notes: Same as: BD Posiflush Sterile Start Date: 09/21/17 Stop Date: 09/22/17 Status: Discontinuedsenna 8.6 mg, 1 tab, Route: PO, Drug Form: TAB, Dosing Weight 95.909, kg, Q12H, Start date: 09/21/17 9:00:00 CDT, Duration: 30 day, Stop date: 10/20/17 21:00:00 CDT Notes: (Same as: Grant) Start Date: 09/21/17 Stop Date: 09/22/17 Status: Discontinuedsodium phosphate + Sodium Chloride 0.9% IV 250 mL 30 mmol, 10 mL, Route: IVPB, PRN, Dosing Weight 105.009, kg, PRN Abnormal Lab Result, Start date: 09/21/17 2:48:00 CDT, Duration: 30 day, Stop date: 10/21/17 2:47:00 CDT, FOR ICU USE ONLY Start Date: 09/21/17 Stop Date: 09/22/17 Status: Discontinuedsodium phosphate + Sodium Chloride 0.9% IV 250 mL 15 mmol, 5 mL, Route: IVPB, PRN, Dosing Weight 105.009, kg, PRN Abnormal Lab Result, Start date: 09/21/17 2:48:00 CDT, Duration: 30 day, Stop date: 10/21/17 2:47:00 CDT, FOR ICU USE ONLY Start Date: 09/21/17 Stop Date: 09/22/17 Status: Discontinuedsodium phosphate + Sodium Chloride 0.9% IV 250 mL 45 mmol, 15 mL, Route: IVPB, PRN, Dosing Weight 105.009, kg, PRN Abnormal Lab Result, Start date: 09/21/17 2:48:00 CDT, Duration: 30 day, Stop date: 10/21/17 2:47:00 CDT, FOR ICU USE ONLY Start Date: 09/21/17 Stop Date: 09/22/17 Status: DiscontinuedToprol-XL 25 mg oral tablet, extended release 25 mg, 1 tab, Route: PO, Drug form: ERTAB, Daily, Start date: 09/21/17 9:00:00 CDT, Duration: 30 day, Stop date: 10/20/17 9:00:00 CDT Notes: (Same as: Toprol XL) Do Not Crush Start Date: 09/21/17 Stop Date: 09/22/17 Status: Discontinuedtramadol 100 mg, 2 tab, Route: PO, Drug form: TAB, Q6H, Dosing Weight 105.009, kg, Priority: NOW, Start date:09/21/17 10:01:00 CDT, Duration: 30 day, Stop date: 6:00:00 CDT Notes: Not to exceed 400mg/day. (Same As: Ultram) Start Date: 09/21/17 Stop Date: 09/22/17 Status: DiscontinuedZyPREXA 10 mg, 2 tab, Route: PO, Drug form: TAB, Daily, Dosing Weight 105.009, kg, Start date: 09/21/17 9:00:00 CDT, Duration: 30 day, Stop date: 10/20/17 9:00:00 CDT Notes: (Same as: ZyPREXA) Start Date: 09/21/17 Stop Date: 09/22/17 Status: Discontinued Results BLOOD BANK RESULTS Most recent to oldest [Reference Range]: 1 2 3 ABO/Rh O POS *Unknown* (09/21/17 12:03 AM) Antibody Scrn Negative (09/21/17 12:03 AM) ELECTROLYTES Most recent to oldest 1 2 3 [Reference Range]: Sodium Lvl [135-145 mEq/L] 141 mEq/L 143 mEq/L (09/22/17 3:47 AM) (09/21/17 12:03 AM) Potassium Lvl [3.5-5.1 4.9 mEq/L 3.8 mEq/L 3.5 mEq/L mEq/L] (09/22/17 3:47 AM) (09/21/17 7:08 PM) (09/21/17 7:09 AM) Chloride Lvl [95-109 mEq/L] 107 mEq/L 106 mEq/L (09/22/17 3:47 AM) (09/21/17 12:03 AM) CO2 [24-32 mEq/L] 23 mEq/L 27 mEq/L *LOW* (09/21/17 12:03 AM) (09/22/17 3:47 AM) AGAP [10.0-20.0 mEq/L] 15.9 mEq/L 13.2 mEq/L (09/22/17 3:47 AM) (09/21/17 12:03 AM) CHEM PANEL Most recent to oldest [Reference Range]: 1 2 3 Creatinine Lvl [0.50-1.40 mg/dL] 0.70 mg/dL 0.69 mg/dL (09/22/17 3:47 AM) (09/21/17 12:03 AM) eGFR 118 mL/min/1.73m2 1 118 mL/min/1.73m2 2 *NA* *NA* (09/22/17 3:47 AM) (09/21/17 12:03 AM) BUN [7-22 mg/dL] 16 mg/dL 11 mg/dL (09/22/17 3:47 AM) (09/21/17 12:03 AM) Glucose Lvl [70-99 mg/dL] 225 mg/dL 264 mg/dL *HI* *HI* (09/22/17 3:47 AM) (09/21/17 12:03 AM) Calcium Lvl [8.5-10.5 mg/dL] 8.9 mg/dL 8.7 mg/dL (09/22/17 3:47 AM) (09/21/17 12:03 AM) Phosphorus [2.5-4.5 mg/dL] 4.3 mg/dL 3.2 mg/dL (09/22/17 3:47 AM) (09/21/17 12:03 AM) Magnesium Lvl [1.8-2.4 mg/dL] 2.3 mg/dL 1.7 mg/dL (09/22/17 3:47 AM) *LOW* (09/21/17 12:03 AM) Lactic Acid Lvl [0.5-2.2 mMol/L] 1.3 mMol/L (09/21/17 12:03 AM) 1Result Comment: The eGFR is calculated [...] eGFR should be multiplied by the estimated BMI.SPECIAL CHEMISTRY Most recent to oldest [Reference Range]: 1 2 3 Hgb A1C [<=5.6 %] 13.6 % *HI* (09/21/17 2:01 PM) PARATHYROID PROFILE Most recent to oldest [Reference Range]: 1 2 3 Ca Ion WB [1.05-1.25 mMol/L] 1.10 mMol/L 1.09 mMol/L (09/22/17 3:47 AM) (09/21/17 12:03 AM) Ca Norm WB [1.05-1.25 mMol/L] 1.11 mMol/L 1.14 mMol/L (09/22/17 3:47 AM) (09/21/17 12:03 AM) IMMUNOLOGY Most recent to oldest [Reference Range]: 1 2 3 CRP [<=2.9 mg/L] 7.4 mg/L *HI* (09/21/17 12:03 AM) HEMATOLOGY Most recent to oldest [Reference Range]: 1 2 3 WBC [3.7-10.4 K/CMM] 8.8 K/CMM 9.6 K/CMM (09/22/17 3:47 AM) (09/21/17 12:03 AM) RBC [4.20-5.40 M/CMM] 3.54 M/CMM 3.68 M/CMM *LOW* *LOW* (09/22/17 3:47 AM) (09/21/17 12:03 AM) Hgb [12.0-16.0 g/dL] 10.8 g/dL 11.2 g/dL *LOW* *LOW* (09/22/17 3:47 AM) (09/21/17 12:03 AM) Hct [36.0-48.0 %] 32.5 % 32.9 % *LOW* *LOW* (09/22/17 3:47 AM) (09/21/17 12:03 AM) MCV [80.0-98.0 fL] 91.8 fL 89.4 fL (09/22/17 3:47 AM) (09/21/17 12:03 AM) MCH [27.0-31.0 pg] 30.5 pg 30.5 pg (09/22/17 3:47 AM) (09/21/17 12:03 AM) MCHC [32.0-36.0 g/dL] 33.2 g/dL 34.2 g/dL (09/22/17 3:47 AM) (09/21/17 12:03 AM) RDW [11.5-14.5 %] 14.1 % 13.5 % (09/22/17 3:47 AM) (09/21/17 12:03 AM) MPV [7.4-10.4 fL] 9.6 fL 10.2 fL (09/22/17 3:47 AM) (09/21/17 12:03 AM) Platelet [133-450 K/CMM] 256 K/CMM 263 K/CMM (09/22/17 3:47 AM) (09/21/17 12:03 AM) Segs [45.0-75.0 %] 51.9 % 55.4 % (09/22/17 3:47 AM) (09/21/17 12:03 AM) Lymphocytes [20.0-40.0 %] 34.9 % 34.3 % (09/22/17 3:47 AM) (09/21/17 12:03 AM) Monocytes [2.0-12.0 %] 5.6 % 4.5 % (09/22/17 3:47 AM) (09/21/17 12:03 AM) Eosinophils [0.0-4.0 %] 6.5 % 5.0 % *HI* *HI* (09/22/17 3:47 AM) (09/21/17 12:03 AM) Basophils [0.0-1.0 %] 1.1 % 0.8 % *HI* (09/21/17 12:03 AM) (09/22/17 3:47 AM) Segs-Bands # [1.5-8.1 K/CMM] 4.6 K/CMM 5.3 K/CMM (09/22/17 3:47 AM) (09/21/17 12:03 AM) Lymphocytes # [1.0-5.5 K/CMM] 3.1 K/CMM 3.3 K/CMM (09/22/17 3:47 AM) (09/21/17 12:03 AM) Monocytes # [0.0-0.8 K/CMM] 0.5 K/CMM 0.4 K/CMM (09/22/17 3:47 AM) (09/21/17 12:03 AM) Eosinophils # [0.0-0.5 K/CMM] 0.6 K/CMM 0.5 K/CMM *HI* (09/21/17 12:03 AM) (09/22/17 3:47 AM) Basophils # [0.0-0.2 K/CMM] 0.1 K/CMM 0.1 K/CMM (09/22/17 3:47 AM) (09/21/17 12:03 AM) Sed Rate [0-20 mm/hr] 47 mm/hr *HI* (09/21/17 12:03 AM) PT [12.0-14.7 seconds] 13.3 seconds 12.8 seconds (09/22/17 3:47 AM) (09/21/17 12:03 AM) INR [0.85-1.17] 1.01 0.96 (09/22/17 3:47 AM) (09/21/17 12:03 AM) PTT [22.9-35.8 seconds] 27.9 seconds 24.1 seconds (09/22/17 3:47 AM) (09/21/17 12:03 AM) BACTERIAL - SEROLOGY Most recent to oldest [Reference Range]: 1 2 3 MRSA by PCR Negative (09/21/17 2:01 PM) Immunizations Given and Recorded Vaccine Date Status Refusal Reason pneumococcal 23-valent vaccine 11/27/13 Given Procedures Procedure Date Related Diagnosis Body Site Status Myelography via lumbar injection, 09/21/17 Completed including radiological supervision and interpretation; 2 or more regions (eg, lumbar/thoracic, cervical/thoracic, lumbar/cervical, lumbar/thoracic/cervical) Abdominal hysterectomy Completed Cardiac catheterization Completed Cervical [...]
--- OUTSIDE RECORDS SUMMARY | 2018-12-17 19:04 | XMS REPORT ---
:1970 [facility] Team Providers Name Role Phone Norma Franco Provider Role Unavailable Allergies, Adverse Reactions, Alerts Substance Reaction Event Type N.K.D.A. 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, angina presence unspecified Problem MAGALI (obstructive sleep apnea) G47.33 Active Assessment Palpitations R00.2 Active Assessment Coronary artery disease with angina I25.119 Active pectoris, unspecified vessel or lesion type, unspecified whether [place] or transplanted heart Problem Angina at rest I20.8 Active Problem Stented coronary artery Z95.5 Active Medications Medication Code Code Instructions Start End Status Dosage System Date Date Lipitor [facility] 18125882446 80 MG Orally Active 1 tablet Once a day NovoLog Flexpen [facility] 88591380672 100 UNIT/ML Active 30 units Subcutaneous three times a day Plavix [facility] 76407868847 75 MG Orally Active 1 tablet Once a day Clonidine HCl [facility] 49611899231 0.1 MG Orally July Active 1 tablet Once a day, as 2017 needed Nitrostat [facility] 11465659738 0.4 MG Active not Sublingual defined Ranexa [facility] 76090654208 1000 MG Orally Feb 15, Active 1 tablet once a day 2016 Prozac [facility] 57561693608 40 MG Orally Active 1 capsule Once a day Metoprolol ND 94037087573 25 MG Orally June Active 1 tablet Succinate ER Once a day 2017 Metformin HCl [facility] 62400500796 1000 MG Orally Active 2 tablet Twice a day with meals Isosorbide [facility] 63100610699 10 MG Orally Active 1 tablet Mononitrate Twice a day Lisinopril ND 39677882821 40 MG Orally Active 1 tablet Once a day Levemir [facility] 97214688517 100 UNIT/ML Active 40 units FlexTouch Subcutaneous twice a day Lasix [facility] 92811840631 20 MG Orally Active 1 tablet Once a day Tramadol HCl [facility] 59338284045 50 MG Orally Active 1 tablet every 6 hrs as needed Tresiba ND 95194276201 100 UNIT/ML Active not FlexTouch Subcutaneous defined Aspirin [facility] 62598560598 81 MG Orally Active 1 tablet Once a day Gabapentin [facility] 45357586483 300 MG Orally Active 1 capsule Three times a day as needed Reglan [facility] 85630757755 5 MG Orally Active not defined Vital Signs Date/Time: July 31, 2017 BMI 36.61 Index Weight 220 lbs Height 65 in Cardiac Monitoring Heart Rate 76 /min Blood Pressure Diastolic 110 mm Hg Blood Pressure Systolic 200 mm Hg Results No Known Results Summary Purpose eClinicalWorks Submission
--- OUTSIDE RECORDS SUMMARY | 2018-12-17 19:04 | XMS REPORT ---
:1970 [facility] Team Providers Name Role Phone Norma Franco Provider Role Unavailable Allergies No Known Allergies Problems Problem Type Condition Code Onset Dates Condition Status Assessment Hypertension, unspecified type I10 Active Problem Stented coronary artery Z95.5 Active Problem HTN (hypertension), benign I10 Active Problem Angina at rest I20.8 Active Assessment Coronary artery disease with angina I25.119 Active pectoris, unspecified vessel or lesion type, unspecified whether [place] or transplanted heart Assessment Dizziness R42 Active Problem 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, angina presence unspecified Assessment Palpitations R00.2 Active Medications Medication Code Code Instructions Start End Status Dosage System Date Date Prozac [facility] 57637688519 40 MG Orally Active 1 capsule Once a day Tramadol HCl [facility] 43682127002 50 MG Orally Active 1 tablet every 6 hrs as needed Metformin HCl ND 22541155844 1000 MG Orally Active 2 tablet Twice a day with meals Plavix ND 70080078274 75 MG Orally Active 1 tablet Once a day Nitrostat ND 26356187738 0.4 MG Active not Sublingual defined Omeprazole ND 52184292678 40 MG Orally Active 1 capsule Once a day Gabapentin ND 19522595064 300 MG Orally Active 1 capsule Three times a day as needed Levemir [facility] 73720738842 100 UNIT/ML Active 40 units FlexTouch Subcutaneous twice a day Carvedilol ND 25084891818 25 MG Orally Active 2 tablet once a day Lasix ND 36900254240 20 MG Orally Active 1 tablet Once a day Aspirin ND 31590089290 81 MG Orally Active 1 tablet Once a day Lipitor ND 27450162060 80 MG Orally Active 1 tablet Once a day Lisinopril ND 81979901885 20 MG Orally Active 1 tablet Once a day NovoLog Flexpen ND 77293825245 100 UNIT/ML Active 30 units Subcutaneous three times a day Reglan [facility] 29780878887 5 MG Orally Active not defined Isosorbide [facility] 55758853460 10 MG Orally Active 1 tablet Mononitrate Twice a day Ranexa [facility] 57891479700 1000 MG Orally Oct 25, Active 1 tablet once a day 2016 Results No Known Results Summary Purpose eClinicalWorks Submission
--- OUTSIDE RECORDS SUMMARY | 2018-12-17 19:04 | XMS REPORT ---
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, angina presence unspecified Problem MAGALI (obstructive sleep apnea) G47.33 Active Assessment Palpitations R00.2 Active Assessment Coronary artery disease with angina I25.119 Active pectoris, unspecified vessel or lesion type, unspecified whether [place] or transplanted heart Problem Angina at rest I20.8 Active Problem Stented coronary artery Z95.5 Active Medications Medication Code Code Instructions Start End Status Dosage System Date Date Metformin HCl [facility] 94091499630 1000 MG Orally Active 2 tablet Twice a day with meals Gabapentin ND 51433568851 300 MG Orally Active 1 capsule Three times a day as needed Plavix ND 89527299464 75 MG Orally Active 1 tablet Once a day Prozac [facility] 47894115347 40 MG Orally Active 1 capsule Once a day Metoprolol ND 82500663083 25 MG Orally June Active 1 tablet Succinate ER Once a day 2017 Levemir [facility] 01826151691 100 UNIT/ML Active 40 units FlexTouch Subcutaneous twice a day Ranexa [facility] 39570417226 1000 MG Orally Oct 25, Active 1 tablet once a day 2016 Isosorbide [facility] 90415313793 10 MG Orally Active 1 tablet Mononitrate Twice a day Tramadol HCl [facility] 95661844843 50 MG Orally Active 1 tablet every 6 hrs as needed Lipitor [facility] 00426653355 80 MG Orally Active 1 tablet Once a day Lasix [facility] 13029778011 20 MG Orally Active 1 tablet Once a day Aspirin ND 09283721113 81 MG Orally Active 1 tablet Once a day Lisinopril ND 65166440870 20 MG Orally Active 1 tablet Once a day Nitrostat [facility] 25524364606 0.4 MG Active not Sublingual defined NovoLog Flexpen [facility] 87730589307 100 UNIT/ML Active 30 units Subcutaneous three times a day Reglan [facility] 19594947895 5 MG Orally Active not defined Results No Known Results Summary Purpose eClinicalWorks Submission
--- OUTSIDE RECORDS SUMMARY | 2018-12-17 19:04 | XMS REPORT ---
:1970 [facility] Team Providers Name Role Phone Norma Franco Provider Role Unavailable Allergies, Adverse Reactions, Alerts Substance Reaction Event Type N.K.D.A. 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, angina presence unspecified Problem MAGALI (obstructive sleep apnea) G47.33 Active Assessment Encounter for preprocedural Z01.810 Active cardiovascular examination Assessment Unstable angina I20.0 Active Problem Angina at rest I20.8 Active Problem Stented coronary artery Z95.5 Active Medications Medication Code Code Instructions Start End Status Dosage System Date Date NovoLog [facility] 28289592792 100 UNIT/ML Active 30 units Flexpen Subcutaneous three times a day Lisinopril ND 23575313191 40 MG Orally Active 1 tablet Once a day Prozac [facility] 05995478063 40 MG Orally Active 1 capsule Once a day Clonidine HCl ND 31580509781 0.1 MG Orally July 31, Active 1 tablet Once a day, as 2018 needed Gabapentin ND 75390030106 300 MG Orally Active 1 capsule Three times a day as needed Metoprolol ND 98688955085 25 MG Orally July 12, Active 1 tablet Succinate ER Once a day 2017 Tresiba ND 27524263484 100 UNIT/ML Active not FlexTouch Subcutaneous defined Ranexa [facility] 56415856187 1000 MG Orally Feb 15, Active 1 tablet once a day 2017 Plavix ND 11332932892 75 MG Orally Active 1 tablet Once a day Aspirin ND 71351196266 81 MG Orally Active 1 tablet Once a day Metformin HCl ND 36735422836 1000 MG Orally Active 2 tablet Twice a day with meals Nitrostat ND 04931988225 0.4 MG Active not Sublingual defined Lasix [facility] 16736742385 20 MG Orally Active 1 tablet Once a day Lipitor [facility] 57713506545 80 MG Orally Active 1 tablet Once a day Vital Signs Date/Time: October 30, 2017 BMI 36.94 Index Weight 222. lbs Height 65 in Cardiac Monitoring Heart Rate 84 /min Blood Pressure Diastolic 88 mm Hg Blood Pressure Systolic 136 mm Hg Results No Known Results Summary Purpose eClinicalWorks Submission
--- OUTSIDE RECORDS SUMMARY | 2018-12-17 19:04 | XMS REPORT ---
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, angina presence unspecified Problem MAGALI (obstructive sleep apnea) G47.33 Active Assessment Encounter for preprocedural Z01.810 Active cardiovascular examination Assessment Unstable angina I20.0 Active Problem Angina at rest I20.8 Active Problem Stented coronary artery Z95.5 Active Medications Medication Code Code Instructions Start End Status Dosage System Date Date Gabapentin [facility] 81416235979 300 MG Orally Active 1 capsule Three times a day as needed Tresiba ND 23225418760 100 UNIT/ML Active not FlexTouch Subcutaneous defined Ranexa [facility] 18553277770 1000 MG Orally Feb 15, Active 1 tablet once a day 2016 Metoprolol ND 52449025132 25 MG Orally July 12, Active 1 tablet Succinate ER Once a day 2018 NovoLog ND 22087383444 100 UNIT/ML Active 30 units Flexpen Subcutaneous three times a day Clonidine HCl ND 47299663692 0.1 MG Orally July 31, Active 1 tablet Once a day, as 2018 needed Lisinopril ND 84613256200 40 MG Orally Active 1 tablet Once a day Prozac ND 91452596698 40 MG Orally Active 1 capsule Once a day Aspirin ND 75808148543 81 MG Orally Active 1 tablet Once a day Plavix ND 63962691711 75 MG Orally Active 1 tablet Once a day Metformin HCl ND 85649380667 1000 MG Orally Active 2 tablet Twice a day with meals Lasix ND 73770895367 20 MG Orally Active 1 tablet Once a day Nitrostat ND 25182241673 0.4 MG Active not Sublingual defined Lipitor [facility] 98251544856 80 MG Orally Active 1 tablet Once a day Results No Known Results Summary Purpose eClinicalWorks Submission
--- OUTSIDE RECORDS SUMMARY | 2018-12-17 19:04 | XMS REPORT ---
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
--- OUTSIDE RECORDS SUMMARY | 2018-12-17 19:04 | XMS REPORT ---
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, angina presence unspecified Problem MAGALI (obstructive sleep apnea) G47.33 Active Assessment Palpitations R00.2 Active Assessment Coronary artery disease with angina I25.119 Active pectoris, unspecified vessel or lesion type, unspecified whether [place] or transplanted heart Problem Angina at rest I20.8 Active Problem Stented coronary artery Z95.5 Active Medications Medication Code Code Instructions Start End Date Status Dosage System Date Levemir [facility] 90600838423 100 UNIT/ML Active 40 units FlexTouch Subcutaneous twice a day Lipitor [facility] 63224991864 80 MG Orally Active 1 tablet Once a day Metoprolol [facility] 72999961449 25 MG Orally June Active 1 tablet Succinate ER Once a day 2017 Prozac [facility] 77742868750 40 MG Orally Active 1 capsule Once a day Nitrostat [facility] 33116250151 0.4 MG Active not Sublingual defined Carvedilol [facility] 54606879848 25 MG Orally June Inactive 2 tablet once a day 2017 Aspirin [facility] 87673588158 81 MG Orally Active 1 tablet Once a day Plavix [facility] 00063584303 75 MG Orally Active 1 tablet Once a day Omeprazole [facility] 44509929567 40 MG Orally Active 1 capsule Once a day Tramadol HCl [facility] 88739632946 50 MG Orally Active 1 tablet every 6 hrs as needed Isosorbide [facility] 20960982941 10 MG Orally Active 1 tablet Mononitrate Twice a day Metformin HCl [facility] 72125457198 1000 MG Orally Active 2 tablet Twice a day with meals Lasix [facility] 96796189778 20 MG Orally Active 1 tablet Once a day Reglan [facility] 11151524461 5 MG Orally Active not defined Ranexa [facility] 60362550869 1000 MG Orally Oct 25, Active 1 tablet once a day 2016 Gabapentin [facility] 02687123389 300 MG Orally Active 1 capsule Three times a day as needed NovoLog [facility] 98897046226 100 UNIT/ML Active 30 units Flexpen Subcutaneous three times a day Lisinopril [facility] 10530352222 20 MG Orally Active 1 tablet Once a day Vital Signs Date/Time: July 12, 2017 BMI 36.61 Index Weight 220 lbs Height 65 in Cardiac Monitoring Heart Rate 76 /min Blood Pressure Diastolic 64 mm Hg Blood Pressure Systolic 136 mm Hg Results No Known Results Summary Purpose eClinicalWorks Submission
--- OUTSIDE RECORDS SUMMARY | 2018-12-17 19:04 | XMS REPORT ---
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
--- OUTSIDE RECORDS SUMMARY | 2018-12-17 19:04 | XMS REPORT ---
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
--- OUTSIDE RECORDS SUMMARY | 2018-12-17 19:04 | XMS REPORT ---
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, angina presence unspecified Assessment Palpitations R00.2 Active Medications Medication Code Code Instructions Start End Status Dosage System Date Date Plavix [facility] 65573202364 75 MG Orally Active 1 tablet Once a day Metformin HCl [facility] 81412462783 1000 MG Orally Active 2 tablet Twice a day with meals Omeprazole [facility] 74970230458 40 MG Orally Active 1 capsule Once a day NovoLog Flexpen [facility] 85382469442 100 UNIT/ML Active 30 units Subcutaneous three times a day Isosorbide ND 48356868650 10 MG Orally Active 1 tablet Mononitrate Twice a day Carvedilol ND 60604607288 25 MG Orally Active 2 tablet once a day Reglan [facility] 62633591109 5 MG Orally Active not defined Tramadol HCl [facility] 24120007117 50 MG Orally Active 1 tablet every 6 hrs as needed Gabapentin ND 98278528222 300 MG Orally Active 1 capsule Three times a day as needed Levemir [facility] 67734316008 100 UNIT/ML Active 40 units FlexTouch Subcutaneous twice a day Lisinopril ND 53159537328 20 MG Orally Active 1 tablet Once a day Ranexa [facility] 22331419011 1000 MG Orally Oct 25, Active 1 tablet once a day 2016 Aspirin [facility] 03571266027 81 MG Orally Active 1 tablet Once a day Prozac [facility] 45397763293 40 MG Orally Active 1 capsule Once a day Lasix [facility] 36574601999 20 MG Orally Active 1 tablet Once a day Nitrostat [facility] 56564817415 0.4 MG Active not Sublingual defined Lipitor [facility] 79443772773 80 MG Orally Active 1 tablet Once a day Vital Signs Date/Time: June 27, 2017 Blood Pressure Diastolic 70 mm Hg Blood Pressure Systolic 130 mm Hg Height 65 in Cardiac Monitoring Heart Rate 90 /min Results No Known Results Summary Purpose eClinicalWorks Submission
--- OUTSIDE RECORDS SUMMARY | 2018-12-17 19:04 | XMS REPORT ---
:1970 [facility] Providers Name Role Phone Norma Franco Provider Role Unavailable Allergies, Adverse Reactions, Alerts Substance Reaction Event Type N.K.D.A. 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, angina presence unspecified Problem MAGALI (obstructive sleep apnea) G47.33 Active Assessment Encounter for preprocedural Z01.810 Active cardiovascular examination Assessment Unstable angina I20.0 Active Problem Angina at rest I20.8 Active Problem Stented coronary artery Z95.5 Active Medications Medication Code Code Instructions Start End Status Dosage System Date Date Nitrostat [facility] 43068847480 0.4 MG Active not Sublingual defined Gabapentin [facility] 38888142784 300 MG Orally Active 1 capsule Three times a day as needed Metoprolol ND 01967109696 25 MG Orally June Active 1 tablet Succinate ER Once a day 2017 Plavix ND 29810422567 75 MG Orally Active 1 tablet Once a day Tresiba [facility] 90020961944 100 UNIT/ML Active not FlexTouch Subcutaneous defined Lipitor ND 91120348349 80 MG Orally Active 1 tablet Once a day Lisinopril ND 54619639443 40 MG Orally Active 1 tablet Once a day Clonidine HCl ND 92970011730 0.1 MG Orally July Active 1 tablet Once a day, as 2017 needed Prozac [facility] 56537699906 40 MG Orally Active 1 capsule Once a day Isosorbide ND 19256468249 10 MG Orally Active 1 tablet Mononitrate Twice a day Ranexa ND 09234124665 1000 MG Orally Feb 15, Active 1 tablet once a day 2016 Metformin HCl ND 21853500747 1000 MG Orally Active 2 tablet Twice a day with meals Lasix [facility] 98085460446 20 MG Orally Active 1 tablet Once a day NovoLog Flexpen [facility] 48970745584 100 UNIT/ML Active 30 units Subcutaneous three times a day Aspirin [facility] 47765207544 81 MG Orally Active 1 tablet Once a day Vital Signs Date/Time: October 20, 2017 BMI 38.47 Index Weight 231.2 lbs Height 65 in Cardiac Monitoring Heart Rate 92 /min Blood Pressure Diastolic 68 mm Hg Blood Pressure Systolic 122 mm Hg Results No Known Results Summary Purpose eClinicalWorks Submission
--- NOTE | 2018-12-17 19:05 | RAD REPORT ---
EXAM DESCRIPTION: CT - Head angio - 12/17/2018 6:44 pm CLINICAL HISTORY: Headache;TIA TECHNIQUE: During dynamic enhancement using nonionic IV contrast, axial 1 millimeter thick images of the head were obtained. Sagittal and axial reconstruction images were generated using MIP technique and reviewed. All CT scans are performed using dose optimization technique as appropriate and may include automated exposure control or mA/KV adjustment according to patient size. COMPARISON: CT head December 17 FINDINGS: No aneurysm or vascular malformation identified. Major venous sinuses are patent. No stenosis, named branch occlusion, vasculitis or other significant vascular finding identifiable. A nterior communicating artery is present. Small posterior communicating arteries also present. Internal carotid artery atherosclerotic calcifications are present without luminal narrowing. IMPRESSION: Negative CT angio head examination.
--- OUTSIDE RECORDS SUMMARY | 2018-12-17 19:05 | XMS REPORT ---
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
--- NOTE | 2018-12-17 19:11 | RAD REPORT ---
EXAM DESCRIPTION: RAD - Chest Single View - 12/17/2018 6:43 pm CLINICAL HISTORY: Cough, left-sided numbness and tingling, Stroke protocol chest film COMPARISON: November 16 TECHNIQUE: AP portable chest image was obtained 1839 hours . FINDINGS: Lung volumes are low. This is further accentuated by elevated right hemidiaphragm. Loop re ac overlies the medial lower left chest. No acute lung parenchymal process seen. Lung markings ma tch comparison. Heart and vasculature are normal. No measurable pleural effusion and no pneumothorax. No acute bony abnormality seen. No acute aortic findings suspected. IMPRESSION: Limited shallow inspiration chest film without acute cardiopulmonary finding. No significant change from comparison.
[2018-12-17 19:15] LABS: Protime INR 5.8
[2018-12-17] MEDS ORDERED: POTASSIUM 25 MEQ EFFERV TAB ONE (19:16)
[2018-12-17] MEDS ORDERED: INSULIN -REGULAR HUMAN 50 UNIT/0.5 ML ML ONE (19:16)
[2018-12-17] MEDS ORDERED: CEFTRIAXONE/SWI 1gm 1 GM/10 ML SYR ONE (19:17)
[2018-12-17] MEDS ORDERED: MAGNESIUM SULFATE 1 gm IVPB 1 GM/100 ML BAG IV ONE (19:17)
[2018-12-17] MEDS ORDERED: ACETAMINOPHEN 500 MG TAB ONE (19:46)
--- NOTE | 2018-12-18 11:22 | EKG ---
Test Date: 2018-12-17 Test Time: 18:33:08 [employer]: SWG MEASUREMENT RESULTS: Intervals: Rate: 90 RI: 136 QRSD: 72 QT: 386 QTc: 472 [place]: P: 71 RI: 136 QRS: -22 T: 51 INTERPRETIVE STATEMENTS: Normal sinus rhythm Cannot rule out Anterior infarct, age undetermined Abnormal ECG Compared to ECG 11/16/2018 13:57:55 Sinus tachycardia no longer present Right-axis deviation no longer present Myocardial infarct finding still present Electronically Signed On 12-18-18 11:19:24 CDT by Ebenezer Bliss
== END 2018-12-17 20:48 | disposition short-term general hospital (02) ==
LOC: ER 17:55
DX: I63.9 Cerebral infarction, unspecified (principal); G81.94 Hemiplegia, unspecified affecting left nondominant side; I10 Essential (primary) hypertension; R29.704 NIHSS score 4; I25.10 Atherosclerotic heart disease of native coronary artery without angina pectoris; E11.9 Type 2 diabetes mellitus without complications; Z79.01 Long term (current) use of anticoagulants; Z95.818 Presence of other cardiac implants and grafts
CPT/HCPCS: 36415; 70450; 70496; 71045; 80048; 80076; 81003; 81025; 82962; 83735; 83880; 84484; 85025; 85610; 87086; 87088; 93005; 99285; J0696; J3475; J7030; Q9967

== ENCOUNTER 2021-08-31 16:02 | Inpatient (IN) | payer OTHER ==
--- OUTSIDE RECORDS SUMMARY | 2021-08-31 16:29 | XMS REPORT | Continuity of Care Document ---
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 amlodipi DA Active SV 2020-0 [facility] ne 2-03 Clear 00:00: Farmer 00 [facility] amlodipi DA Active SV FACIAL 2020-0 [facility] ne SWELLING 2-03 Clear 00:00: Farmer 00 [facility] amlodipi DA Active SV 2019-1 [facility] ne 2-17 Clear 00:00: Farmer 00 [facility] amlodipi DA Active SV FACIAL 2019-1 [facility] ne SWELLING 2-17 Clear 00:00: Farmer 00 [facility] No Known DA Active U 2019-1 [facility] Allergie 1-03 [place] s 00:00: d 00 [facility] No Known DA Active U 2019-1 [facility] Allergie 0-17 Clear s 00:00: Farmer 00 [facility] No Known DA Active U 2018-1 [facility] Allergie 2-12 Clear s 00:00: Farmer 00 [facility] No Known DA Active U 2018-1 [facility] Allergie 1-02 [place] [facility] 00:00: d 00 [facility] No Known DA Active U 2018-1 [facility] Allergie 0-31 Clear s 00:00: Farmer 00 [facility] No Known DA Active U 2018-0 [facility] Allergie 8-28 [place] s 00:00: d 00 [facility] Amlodipi Propensi Active Other - See Headache NPI:183 ne ty to comments 07-25 [id number] adverse 00:00: reaction 00 s AMLODIPI DRUG Active Other-Cmnt NPI: 183 NE INGREDI - [id number] 00:00: 00 Amlodipi Propensi Active Other (See HeadacheH [facility] ne ty to Comments) 07-25 [facility] e adverse 00:00: of reaction 00 Medicin s to e drug NO KNOWN Allergy Active NPI:118 ALLERGIE [id number] S Social History Social Habit Start Date Stop Date Quantity Comments Source Exposure to 2021-06-02 2021-07-02 Not sure NPI:[id number] SARS-CoV-2 (event) 00:00:00 15:42:00 Education 2019-12-10 2019-12-10 21 00:00:00 00:00:00 History SDNJ 2019-02-18 2019-02-18 2 NPI:[id number] Financial 00:00:00 00:00:00 History [facility] Food 2019-02-18 2019-02-18 2 NPI:610 [id number] Worry 00:00:00 00:00:00 History [facility] Food 2019-02-18 2019-02-18 2 NPI:[id number] Scarcity 00:00:00 00:00:00 History SDNJ 2019-02-18 2019-02-18 2 NPI:[id number] Transport Med 00:00:00 00:00:00 History SDNJ 2019-02-18 2019-02-18 2 NPI:[id number] Transport Non-Med 00:00:00 00:00:00 Tobacco use and 2017-05-01 2017-05-01 Never used [facility] l[facility] exposure 00:00:00 00:00:00 of Medicine Alcohol intake 2017-05-01 2017-05-01 Current [facility] Col lege 00:00:00 00:00:00 non-drinker of of Medicin e alcohol (finding) Social History 2014-02-04 2014-02-04 Calrita zelaya 02:55:34 02:55:34 Sex [birth year] At [birth year] NPI:[id number] 00:00:00 00:00:00 Smoking Status Start Date Stop Date Source Never smoker [facility] o f Medicine Medications Ordered Filled Start Stop Current Ordering Indication Dosage Frequency Signature Comments Components Source Medication Medication Date Date Medication? Clinician (SIG) Name Name furosemide 2022-0 Yes 20mg Take 1 NPI:1 83 20 mg 3-04 tablet by [id number] tablet 00:00: mouth 00 daily. Please have lab done in 2 weeks. furosemide 2022-0 Yes 20mg Take 1 NPI:1 83 20 mg 3-04 tablet by [id number] tablet 00:00: mouth 00 daily. Please have lab done in 2 weeks. pantoprazol 2022-0 Yes 40mg Take 40 mg NPI:183 e 40 mg EC 2-24 by mouth [id number] tablet 16:16: daily. 09 gabapentin 2022-0 Yes 600mg Take 600 SKEIN TIER I:183 600 mg 2-24 mg by [id number] tablet 16:16: mouth 3 09 (three) times daily. carvediloL 2022-0 Yes 25mg Take 25 mg N PI:183 25 mg 2-24 by mouth 2 [id number] tablet 16:16: (two) 09 times daily with meals. Ranolazine 2022-0 Yes 1000mg Take 1,000 NPI:183 1,000 mg 2-24 mg by [id number] tablet 16:16: mouth 09 daily. hydrALAZINE 2022-0 Yes 25mg Take 25 mg NPI:183 25 mg 2-24 by mouth [id number] tablet 16:16: every 8 09 (eight) hours. metoclopram 2022-0 Yes 5mg Take 5 mg N PI:183 anthony HCl 5 2-24 by mouth [id number] 1 mg tablet 16:16: every 6 09 (six) hours as needed. ezetimibe 2022-0 Yes 10mg Take 10 mg SKEIN TIER I:183 10 mg 2-24 by mouth [id number] tablet 16:16: daily. 09 pantoprazol 2022-0 Yes 40mg Take 40 mg NPI:183 e 40 mg EC 2-24 by mouth [id number] 81 tablet 16:16: daily. 09 gabapentin 2022-0 Yes 600mg Take 600 SKEIN TIER I:183 600 mg 2-24 mg by [id number] tablet 16:16: mouth 3 09 (three) times daily. carvediloL 2022-0 Yes 25mg Take 25 mg N PI:183 25 mg 2-24 by mouth 2 [id number] tablet 16:16: (two) 09 times daily with meals. Ranolazine 2022-0 Yes 1000mg Take 1,000 NPI:183 1,000 mg 2-24 mg by [id number] tablet 16:16: mouth 09 daily. hydrALAZINE 0 Yes 25mg Take 25 mg NPI:183 25 mg 2-24 by mouth [id number] tablet 16:16: every 8 09 (eight) hours. metoclopram 0 Yes 5mg Take 5 mg N PI:183 anthony HCl 5 2-24 by mouth [id number] 1 mg tablet 16:16: every 6 09 (six) hours as needed. ezetimibe 0 Yes 10mg Take 10 mg SKEIN TIER I:183 10 mg 2-24 by mouth [id number] tablet 16:16: daily. 09 aspirin 81 0 Yes [id number] 81mg Take 1 N PI:183 mg chewable 2-14 tablet by [id number] tablet 00:00: mouth 00 daily. aspirin 81 0 Yes [id number] 81mg Take 1 N PI:183 mg chewable 2-14 tablet by 131 8781 tablet 00:00: mouth 00 daily. evolocumab 2020-04 Yes [id number] 140mg inject 140 NPI:183 140 mg/mL 1-04 mg under [id number] 1 Syrg 00:00: the skin 00 every 2 (two) weeks. hydroCHLORO 2020-04 Yes [id number] 25mg Take 2 NPI:183 thiazide 1-04 capsules [id number] 12.5 mg 00:00: by mouth capsule 00 daily. isosorbide 2020-04 Yes [id number] 90mg Take 1.5 NPI:183 mononitrate 1-04 tablets by 13 [id number] 60 mg 24 hr 00:00: mouth tablet 00 daily. evolocumab 2020-04 Yes [id number] 140mg inject 140 NPI:183 140 mg/mL 1-04 mg under [id number] 1 Syrg 00:00: the skin 00 every 2 (two) weeks. hydroCHLORO 2020-04 Yes [id number] 25mg Take 2 NPI:183 thiazide 1-04 capsules [id number] 12.5 mg 00:00: by mouth capsule 00 daily. isosorbide 2020-04 Yes [id number] 90mg Take 1.5 NPI:183 mononitrate 1-04 tablets by 13 54739 60 mg 24 hr 00:00: mouth tablet 00 daily. atorvastati 2020-04 Yes 80mg Take 80 mg NPI:183 n (LIPITOR) 0-19 by mouth [id number] 781 80 mg 13:28: at tablet 09 bedtime. clopidogreL 2020-04 Yes 75mg Take 75 mg NPI:183 (PLAVIX) 75 0-19 by mouth 1318 781 mg tablet 13:28: daily. atorvastati 2020-04 Yes 80mg Take 80 mg NPI:183 n (LIPITOR) 0-19 by mouth 1318 781 80 mg 13:28: at tablet 09 bedtime. clopidogreL 2020-04 Yes 75mg Take 75 mg NPI:183 (PLAVIX) 75 0-19 by mouth 1318 781 mg tablet 13:28: daily. atorvastati 2020-04 Yes 80mg Take 80 mg NPI:183 n (LIPITOR) 0-19 by mouth 1318 781 80 mg 13:28: at tablet 09 bedtime. lisinopriL 2020-04 Yes [id number] 40mg Take 1 NPI:183 40 mg 0-06 tablet by [id number] tablet 00:00: mouth 00 daily. lisinopriL 2020-04 Yes [id number] 40mg Take 1 NPI:183 40 mg 0-06 tablet by [id number] tablet 00:00: mouth 00 daily. methocarbam Yes [id number] 500mg Take 1 NPI:183 oL 500 mg 9-24 tablet by [id number] 81 tablet 00:00: mouth 3 00 (three) times daily. methocarbam Yes [id number] 500mg Take 1 NPI:183 oL 500 mg 9-24 [place] [id number] 81 tablet 00:00: mouth 3 00 (three) times daily. Insulin Yes [id number] 30U inject 30 N PI:183 Detemir 8-19 Units [id number] (LEVEMIR 00:00: under the FLEXTOUCH 00 skin 2 U-100 (two) INSULN) 100 times unit/mL (3 daily. mL) injection insulin Yes [id number] 25U inject 25 N PI:183 aspart 8-19 Units [id number] U-100 00:00: under the (NOVOLOG 00 skin 2 FLEXPEN (two) U-100 times INSULIN) daily 100 unit/mL before (3 mL) breakfast injection and dinner. Insulin Yes [id number] 30U inject 30 N PI:183 Detemir 8-19 Units [id number] (LEVEMIR 00:00: under the FLEXTOUCH 00 skin 2 U-100 (two) INSULN) 100 times unit/mL (3 daily. mL) injection insulin Yes [id number] 25U inject 25 N PI:183 aspart 8-19 Units [id number] U-100 00:00: under the (NOVOLOG 00 skin 2 FLEXPEN (two) U-100 times INSULIN) daily 100 unit/mL before (3 mL) breakfast injection and dinner. carvedilol 2019-04 2020- No 12.5mg Take 12.5 Felix (COREG) 2-17 12-17 mg by [place] 12.5 MG 22:25: 00:00 mouth two of tablet 43 :00 times Medicin daily. e metformin 2019-04- No 1000mg Take 1,000 [facility] (GLUCOPHAGE 2-17 12-17 mg by Jerry tomlin ) 1000 MG 22:25: 00:00 mouth two of tablet 43 :00 times Medicin daily. e gabapentin 2019-04- No 300mg Take 300 B aylor (NEURONTIN) 2-17 [facility] MG 22:25: 00:00 mouth 3 of capsule 43 :00 times Medicin daily. e tramadol 2019-04- No 50mg Take 50 mg Ba ylor (ULTRAM) 50 2-17 12-17 by mouth Col lege MG tablet 22:25: 00:00 every 8 of 43 :00 hours as Medicin needed for e Pain. metoclopram 2019-04 2020- No 5mg Take 5 mg [facility] anthony 2-17 12-17 by mouth [place] ([facility]) 5 20:40: 00:00 four times of MG tablet 33 :00 daily. Medicin e metoclopram 2019-04 Yes 5mg Take 1 Bayl or anthony 2-17 Tablet by [place] ([facility]) 5 00:00: mouth four o f MG tablet 00 times Medicin daily. e lisinopril 2019-04 Yes TAKE 1 [facility] (PRINIVIL, 1-11 TABLET BY Saira HARRISON) 10 00:00: MOUTH ONCE of MG tablet 00 DAILY Medicin e gabapentin 2019-04 Yes TAKE 1 [facility] (NEURONTIN) 1-05 CAPSULE BY Co llege 400 MG 00:00: MOUTH of capsule 00 THREE Medicin TIMES e DAILY Insulin Yes 30U Inject 30 [facility] Aspart 100 9-13 Units into Col lege UNIT/ML 00:00: the skin. of SOPN 00 Medicin e Plavix Yes Mohamed 1 tablet Gordon sarah 409 Salvador l 02:45: Perez 55 oseltamivir Yes 75 mg, PO, Memoria 75 mg oral 3-19 Q12H, X 5 l capsule 02:40: day, # 10 Lorna nn 00 cap, 0 Refill(s) Saline No Notes: Memoria Flush 0.9% 3-18 (Same as: l 20:14: BD Perez Posiflush) Hydralazine No 10 mg, Gordon sarah 05-17 Route: l 05:05: IVP, ONCE, Perez 00 Dosing Weight 100, kg, Priority: STAT, Start date: 05/16/18 23:05:00 COMMISSION ASSOCIATE, Stop date: 05/16/18 23:05:00 COMMISSION ASSOCIATE Hydralazine No Notes: Gordon sarah 24 (Same as: l 03:56: Apresoline ) Push over 5 minutes ketOROLAC No 4 days Memor ia 15 mg/mL 05-17 l injectable 03:55: MEDICATION H ermann solution WASTE Product Size: 30 mg Product Wasted: ___ mg NS 1,000 mL No 1,000 mL, M emoria 05-17 Rate: l 01:06: 1,000 Perez 00 ml/hr, Infuse over: 1 hr, Route: IV, Dosing Weight 100 kg, Total Volume: 1,000, Start date: 05/16/18 19:06:00 COMMISSION ASSOCIATE, Duration: 1 doses or times, Stop date: 05/16/18 20:05:00 COMMISSION ASSOCIATE, Bolus Dose, 2.17, m2 Tylenol No Notes: Do Memor ia -24 not exceed l 01:06: 4 gm/day. Perez (Same as: Tylenol) Benadryl No Notes: Memoria 1-24 (Same as: l 01:06: Benadryl) Reglan No Notes: Memoria 05-17 (Same as: l 01:05: Reglan) Saline No Notes: Memoria Flush 0.9% 05-16 (Same as: l 20:00: BD Posiflush) Insulin 2017-04 No Notes: Memoria Lispro 06-02 (Same as: l 07:20: Humalog ) Roll in palms of hands gently; Do not shake `vigorousl y. "Single Patient Use Only " WASTE: F/P - Black; E - Municipal Trash Bin Stable for 28 days at room temperatur e. Expires in days from ____Date Acetaminoph 2017-04 No Notes: Do M emoria en 06-02 not exceed l 07:03: 4 gm/day. (Same as: Tylenol) Insulin, 2017-04 No 20 unit, Memor ia Aspart, 06-02 Route: l Human 05:55: SUB-Q, ONCE, Dosing Weight 95.909, kg, Priority: STAT, Start date: 03/31/18 23:55:00 COMMISSION ASSOCIATE, Stop date: 03/31/18 23:55:00 COMMISSION ASSOCIATE NS (Bolus) 2017-04 No 1,000 mL, Me moria IV 05-20 1,000 l 02:02: ml/hr, Infuse Over: 1 hr, Route: IV, 1,000, Drug form: INJ, ONCE, Priority: STAT, Dosing Weight 100.909 kg, Start date: 03/19/18 20:02:00 COMMISSION ASSOCIATE, Stop date: 03/19/18 20:02:00 COMMISSION ASSOCIATE Diphenhydra 2017-04 No Notes: Gordon sarah mine 05-20 (Same as: l 02:02: Benadryl) Metoclopram 2017-04 No Notes: Gordon sarah anthony 05-20 (Same as: l 02:02: Reglan) icosapent 2017-04 Yes 2 gm = 2 Gordon sarah ethyl 1000 1-20 cap, PO, l MG Oral 20:29: BID, # 60 Lorna nn Capsule 00 cap, 3 [Vascepa] Refill(s), Pharmacy: [facility] [id number] isosorbide 2017-04 Yes 120 mg = 1 M emoria mononitrate 1-20 tab, PO, l 120 mg oral 20:22: QAM, # 90 H ermann tablet, 00 tab, 1 extended Refill(s) release 24 HR 2017-04 Yes 25 mg = 1 Memoria Metoprolol 1-20 tab, PO, l Tartrate 25 20:22: Daily, # He rmann MG Extended 00 30 tab, 2 Release Refill(s) Tablet [Toprol] Acetaminoph 2017-04 No Notes: Do M emoria en 325 MG / 05-13 not exceed l Hydrocodone 00:51: 4gm/day of [place] Bitartrate 00 acetaminop 10 MG Oral hen. Tablet (Same as: [[place] 10/325] 325/10) Occupationa 2017-04 Yes See Memori a l Therapy 05-12 Instructio l 20:28: ns, MISC, [place] 00 ONCALL, Evaluate and Treat 2-3 times per week for2-4 weeks, # 1 unit, 0 Refill(s) Physical 2017-04 Yes See Memoria Therapy 05-12 Instructio l 20:28: ns, MISC, Perez 00 ONCALL, Evaluate and Treat 2-3 times per week for 4-6 weeks, # 1 ea, 0 Refill(s) Acetaminoph 2017-04 No Notes: Gordon sarah en 325 MG / 05-12 Same as l Hydrocodone 20:05: [place] Lorna nn Bitartrate 00 325-7.5mg 7.5 MG Oral Do not Tablet exceed [[place] 4gm/day of 7.5/325] acetaminop hen. Acetaminoph 2017-04 No Notes: Gordon sarah en 325 MG / 05-12 (Same as: l Hydrocodone 18:10: [place] Lorna nn Bitartrate 00 325/5) Do 5 MG Oral not exceed Tablet 4gm/day of [[place] acetaminop 5/325] hen. Morphine 2017-04 No Notes: Memoria 05-12 (Same l 02:26: as:MORPhin [place] 00 e Sulfate) Tylenol 2017-04 No Notes: Max Gordon sarah 05-11 acetaminop l 22:11: hen 4000 [place] 00 mg/day (4 gm/day). (Same as: Tylenol Extra Strength) Furosemide 2017-04 No Notes: Memor ia 20 MG Oral 1-18 (Same as: l Tablet 15:00: Lasix) [place] [Lasix] 00 May cause GI upset. Give with food or milk. Zyprexa 2017-04 No Notes: Memoria 1-18 (Same as: l 15:00: ZyPREXA ) [place] 00 Omnipaque 2017-04 No Notes: Memori a 350 1-18 (same l injectable 14:00: as:Omnipaq H ermann solution 00 ue 350). WASTE: F/P - Black; E - Municipal Trash Bin Lipitor 2017-04 No Notes: Memoria 1-18 (Same as: l 03:00: Lipitor) [place] Saline 2017-04 No Notes: Memoria Flush 0.9% 1-18 (Same as: l 03:00: BD Perez 00 Posiflush) Prozac 2017-04 No Notes: Memoria 1-17 (Same as: l 23:00: Prozac) [place] gabapentin 2017-04 No Notes: Memor ia 100 MG Oral -17 (Same as: l Capsule 22:00: Neurontin) Herm megha Saline 2017-04 No Notes: Memoria Flush 0.9% 1-17 (Same as: l 20:41: BD Perez 00 Posiflush) Tylenol 2017-04 No Notes: Max Gordon sarah 1-17 acetaminop l 19:01: hen 4000 Perez 00 mg/day (4 gm/day). (Same as: Tylenol Extra Strength) Insulin 2017-04 No Notes: Memoria Lispro 1-17 (Same as: l 19:00: Humalog ) Perez 00 Roll in palms of hands gently; Do not shake `vigorousl y. "Single Patient Use Only " WASTE: F/P - Black; E - Municipal Trash Bin Stable for 28 days at room temperatur e. Expires in days from ____Date Glucagon 2017-04 No 1 mg, Memoria 1-17 Route: IM, l 19:00: Drug form: [place] 00 PDR/INJ, PRN, Dosing Weight 95.909, kg, PRN Blood Glucose Results, Start date: 03/10/18 13:00:00 COMMISSION ASSOCIATE, Duration: 30 day, Stop date: 04/09/18 12:59:00 COMMISSION ASSOCIATE Dextrose 2017-04 No 25 gm, 50 Gordon sarah 50% Syringe 1-17 mL, Route: l 19:00: IVP, Drug Perez 00 Form: INJ, Dosing Weight 95.909, kg, PRN, PRN Blood Glucose Results, Start date: 03/10/18 13:00:00 COMMISSION ASSOCIATE, Duration: 30 day, Stop date: 04/09/18 12:59:00 COMMISSION ASSOCIATE Humalog 2017-04 No Notes: Memoria -17 (Same as: l 17:30: Humalog ) Perez 00 Roll in palms of hands gently; Do not shake `vigorousl y. "Single Patient Use Only " WASTE: F/P - Black; E - Municipal Trash Bin Stable for 28 days at room temperatur e. Expires in days from ____Date Insulin, 2017-04 No Notes: Memoria Aspart, -17 Non-Formul l Human 17:30: fifi Drug Perez 00 (Same as: NovoLOG) WASTE: F/P - Black; E - Municipal Trash Bin Omnipaque 2017-04 No Notes: Memori a 350 -17 (same l injectable 17:00: as:Omnipaq H ermann solution 00 ue 350). WASTE: F/P - Black; E - Municipal Trash Bin Insulin 2017-04 No Notes: Memoria Lispro -17 (Same as: l 15:06: Humalog ) Perez 00 Roll in palms of hands gently; Do not shake `vigorousl y. "Single Patient Use Only " WASTE: F/P - Black; E - Municipal Trash Bin Stable for 28 days at room temperatur e. Expires in days from ____Date Glucagon 2017-04 No 1 mg, Memoria 1-17 Route: IM, l 15:06: Drug form: Perez 00 PDR/INJ, PRN, Dosing Weight 95.909, kg, PRN Blood Glucose Results, Start date: 03/10/18 9:06:00 COMMISSION ASSOCIATE, Duration: 30 day, Stop date: 04/09/18 9:05:00 COMMISSION ASSOCIATE Dextrose 2017-04 No 25 gm, 50 Gordon sarah 50% Syringe 1-17 mL, Route: l 15:06: IVP, Drug [place] 00 Form: INJ, Dosing Weight 95.909, kg, PRN, PRN Blood Glucose Results, Start date: 03/10/18 9:06:00 COMMISSION ASSOCIATE, Duration: 30 day, Stop date: 04/09/18 9:05:00 COMMISSION ASSOCIATE isosorbide 2017-04 No Notes: Memor ia mononitrate 1-17 (Same l extended 15:04: as:Imdur) Herm megha release 00 "Do Not Crush" Take on empty stomach/ full glass of water. Do not crush 24 HR 2017-04 No Notes: Memoria Metoprolol 1-17 (Same as: l Tartrate 25 15:04: Toprol XL) [place] MG Extended 00 Do Not Release Crush Tablet [Toprol] Plavix 2017-04 No Notes: Memoria 1-17 (Same As: l 15:02: Plavix) Perez 00 Lisinopril 2017-04 No Notes: Memor ia 1-17 (Same as: l 15:02: Prinivil, Perez 00 Zestril) Insulin 2017-04 No Notes: Memoria Glargine 1-17 (Same as: l 100 UNT/ML 15:02: Lantus) Do H ermann Injectable 00 not hold Solution insulin without contacting prescriber WASTE: F/P - Black; E - Municipal Trash Bin "single patient use only" Saline 2017-04 No Notes: Memoria Flush 0.9% -17 (Same as: l 15:00: BD [place] 00 Posiflush) Aspirin 81 2017-04 No Notes: Do Me moria MG Enteric -17 not crush l Coated 15:00: or chew. [place] Tablet 00 (Same As: Ecotrin) please 2017-04 No please Memoria update pt's -17 update l height, 14:30: pt's [place] weight, and 00 height, allergies weight, and allergies, reminder, Drug form: MISC, Route: MISC, Q15Min, 03/10/18 8:30:00 COMMISSION ASSOCIATE, Duration: 30 day, Stop date: 04/09/18 8:15:00 COMMISSION ASSOCIATE Saline 2017-04 No Notes: Memoria Flush 0.9% 05-10 (Same as: l 12:49: BD Posiflush) Nitroglycer 2017-04 No Notes: Gordon sarah in 05-10 (Same l 12:49: as:Nitroqu ick, Nitrostat) "Do Not Crush" Sublingual tablet tramadol 2017-04 No Notes: Not Mem oria hydrochlori 05-10 to exceed l de 50 MG 10:16: 400mg/day. Her burk Oral Tablet 00 (Same As: Ultram) Tylenol 2017-04 No Notes: Do Memor ia 05-10 not exceed l 10:16: 4 gm/day. Perez 00 (Same as: Tylenol) Insulin 2017-04 No 10 unit, Memori a regular 05-10 Route: l 09:37: SUB-Q, [place] ONCE, Dosing Weight 95.909, kg, Priority: STAT, Start date: 03/10/18 3:37:00 COMMISSION ASSOCIATE, Stop date: 03/10/18 3:37:00 COMMISSION ASSOCIATE Lipitor 2017-04 No Notes: Memoria 0-15 (Same as: l 02:00: Lipitor) Perez 00 Prozac 2017-04 No Notes: Memoria 0-14 (Same as: l 22:00: Prozac) Perez 00 insulin 2017-04 No Notes: Memoria glargine 0-14 (Same as: l 14:00: Lantus) Do Perez 00 not hold insulin without contacting prescriber WASTE: F/P - Black; E - Municipal Trash Bin "single patient use only" gabapentin 2017-04 No Notes: Memor ia 100 MG Oral 0-14 (Same as: l Capsule 14:00: Neurontin) Herm megha 00 Furosemide 2017-04 No Notes: Memor ia 20 MG Oral 0-14 (Same as: l Tablet 14:00: Lasix) [place] [Lasix] 00 May cause GI upset. Give with food or milk. Aspirin 81 2017-04 No Notes: Do Me moria MG Enteric 0-14 not crush l Coated 14:00: or chew. [place] Tablet 00 (Same As: Ecotrin) Plavix 2017-04 No Notes: Memoria 0-14 (Same As: l 14:00: Plavix) [place] 00 Saline 2017-04 No Notes: Memoria Flush 0.9% 0-14 (Same as: l 14:00: BD [place] 00 Posiflush) Zyprexa 2017-04 No Notes: Memoria 0-14 (Same as: l 14:00: ZyPREXA ) Perez 00 Lisinopril 2017-04 No Notes: Memor ia 0-14 (Same as: l 14:00: Prinivil, [place] 00 Zestril) 24 HR 2017-04 No Notes: Memoria Metoprolol 0-14 (Same as: l Tartrate 25 14:00: Toprol XL) Perez MG Extended 00 Do Not Release Crush Tablet [Toprol] Tresiba 2017-04 No Tresiba Memoria FlexTouch 0-14 FlexTouch l 100 14:00: 100 Perez units/mL 00 units/mL subcutaneou subcutaneo s solution us solution, 40 unit, Route: SUB-Q, Daily, 02/04/18 9:00:00 CDT, Duration: 30 day, Stop date: 03/05/18 9:00:00 COMMISSION ASSOCIATE Morphine 2017-04 No Notes: Memoria 0-14 (Same l 13:19: as:MORPhin Perez 00 e Sulfate) NovoLOG 2017-04 No NovoLOG Memoria FlexPen 100 0-14 FlexPen l units/mL 12:30: 100 Perez subcutaneou 00 units/mL s solution subcutaneo us solution, 30 unit, Route: SUB-Q, TID-Before Meals, 02/04/18 7:30:00 CDT, Duration: 30 day, Stop date: 03/05/18 16:30:00 COMMISSION ASSOCIATE Humalog 2017-04 No Notes: Memoria 0-14 (Same as: l 12:30: Humalog ) [place] 00 Roll in palms of hands gently; Do not shake `vigorousl y. "Single Patient Use Only " WASTE: F/P - Black; E - Municipal Trash Bin Stable for 28 days at room temperatur e. Expires in days from ____Date Imdur 2017-04 No Notes: Memoria 0-14 (Same l 11:30: as:Imdur) [place] 00 "Do Not Crush" Take on empty stomach/ full glass of water. Do not crush tramadol 2017-04 No Notes: Not Mem oria hydrochlori 0-14 to exceed l de 50 MG 09:28: 400mg/day. Her burk Oral Tablet 00 (Same As: Ultram) Zofran ODT 2017-04 No Notes: Memor ia 0-14 (Same as: l 09:28: Zofran Perez 00 ODT) Nitroglycer 2017-04 No Notes: Gordon sarah in 0.4 MG 0-14 (Same l Sublingual 09:28: as:Nitroqu H ermann Tablet 00 ick, [Nitrostat] Nitrostat) "Do Not Crush" Sublingual tablet Saline 2017-04 No Notes: Memoria Flush 0.9% 0-14 (Same as: l 09:27: BD [place] 00 Posiflush) Nitroglycer 2017-04 No Notes: Gordon sarah in 0-14 (Same l 09:27: as:Nitroqu Perez 00 ick, Nitrostat) "Do Not Crush" Sublingual tablet Fentanyl 2017-04 No Notes: Memoria 0-14 (Same as: l 00:31: Sublimaze) [place] 00 Preservat lul free. Nitroglycer 2017-04 No Notes: 1 Me moria in 0.02 0-14 gram is l MG/MG 00:31: approximat Martell n Topical 00 damien 1 inch Ointment of nitroglyce rin ointment (20 mg NTG per gram) (Same as:Nitro-B id) Aspirin 2017-04 No Notes: Memoria 0-14 Take with l 00:29: food. [place] 00 Saline 2017-04 No Notes: Memoria Flush 0.9% 0-14 (Same as: l 00:29: BD [place] 00 Posiflush) Acetaminoph No 1 tab, PO, Memoria en 300 MG / 9-15 Q6H, PRN l Codeine 23:02: Pain, X 3 Lorna nn Phosphate 00 day, # 12 30 MG Oral tab, 0 Tablet Refill(s) [Tylenol with Codeine #3] Ondansetron No 4 mg = 1 Me moria 4 MG 9-15 tab, PO, l Disintegrat 23:01: TID, PRN He rmann ing Tablet 00 Nausea, [Zofran] Dissolve tab under tongue, # 6 tab, 0 Refill(s) Ciprofloxac No 500 mg = 1 Memoria in 500 MG 9-15 tab, PO, l Oral Tablet 23:01: Q12H, X 14 [place] [Cipro] 00 day, # 28 tab, 0 Refill(s) Zofran ODT No Notes: Memor ia -15 (Same as: l 22:28: Zofran Perez 00 ODT) Fentanyl No Notes: Memoria -15 (Same as: l 22:28: Sublimaze) Perez 00 Preservat lul free. Sodium No 1,000 mL, Memori a Chloride -15 1000 l 0.9% 22:28: ml/hr, [place] (Bolus) IV 00 Infuse Over: 1 hr, Route: IV, 1,000, Drug form: INJ, ONCE, Priority: STAT, Dosing Weight 96.818 kg, Start date: 01/06/18 17:28:00 CDT, Stop date: 01/06/18 17:28:00 CDT Ceftriaxone No Notes: Gordon sarah -15 (Same As: l 22:07: Rocephin). Perez 00 Use with 100 mL NS and infuse over 30 min MEDICATION WASTE Product Size: 1000 mg Product Wasted: ___ mg Metformin Yes Mohamed 2 tablet M emoria HCl 11-01 Salvador with meals l 02:46: Perez Gabapentin Yes Mohamed 1 capsule Memoria - Salvador l 02:46: Perez Prozac Yes Mohamed 1 capsule Mem oria 7-11 Salvador l 02:46: Perez Lipitor Yes Mohamed 1 tablet Mem oria 7-11 Salvador l 02:46: Perez Lasix Yes Mohamed 1 tablet Memor ia 7-11 Salvador l 02:46: Perez Aspirin Yes Mohamed 1 tablet Mem oria 7-11 Salvador l 02:46: Perez 54 Nitrostat Yes Mohamed not Memor ia 11-01 [place] defined l 02:46: Perez 54 NovoLog Yes Mohamed 30 units Mem oria Flexpen 11-01 [place] l 02:46: Perez 54 Tresiba Yes Mohamed not Memoria FlexTouch 11-01 [place] defined l 02:46: Perez 54 Lisinopril Yes Mohamed 1 tablet Memoria 11-01 [place] l 02:46: Perez 54 Isosorbide Yes Mohamed 1 tablet Memoria Mononitrate 10-25 Salvador l 02:47: Perez 49 insulin No Notes: Memoria glargine - (Same as: l 02:00: Lantus) Do not hold insulin without contacting prescriber WASTE: F/P - Black; E - Municipal Trash Bin "single patient use only" Lipitor No Notes: Memoria 6-25 (Same as: l 02:00: Lipitor) Levemir No 30 unit, Memori a FlexPen 10-16 Route: l 02:00: SUB-Q, Drug form: SOLN, Bedtime, Dosing Weight 96.818, kg, Start date: 10/15/17 21:00:00 CDT, Duration: 30 day, Stop date: 11/13/17 21:00:00 CDT Prozac No Notes: Memoria 6-24 (Same as: l 22:00: Prozac) gabapentin Yes 100 mg = 1 M emoria 100 MG Oral 6-24 cap, PO, l Capsule 19:17: TID, # 90 Lorna nn 00 cap, 0 Refill(s), Pharmacy: [facility] [id number] HR Yes 25 mg = 1 Memoria Metoprolol 6-24 tab, PO, l Tartrate 25 19:17: Daily, # He rmann MG Extended 00 30 tab, 0 Release Refill(s), Tablet Pharmacy: [Toprol] [facility] 462 tramadol Yes 50 mg = 1 Gordon sarah hydrochlori 6-24 tab, PO, l de 50 MG 17:04: Q6H, PRN Lorna nn Oral Tablet 00 Pain Score 1-3, # 28 tab, 0 Refill(s) Humalog No Notes: Memoria 6-24 (Same as: l 16:30: Humalog ) Perez 00 Roll in palms of hands gently; Do not shake `vigorousl y. "Single Patient Use Only " WASTE: F/P - Black; E - Municipal Trash Bin Stable for 28 days at room temperatur e. Expires in days from ____Date Insulin, 0 No 30 unit, Memor ia Aspart, 10-15 Route: l Human 16:30: SUB-Q, Perez 00 TID-Before Meals, Dosing Weight 96.818, kg, Start date: 10/15/17 11:30:00 CDT, Duration: 30 day, Stop date: 11/14/17 7:30:00 CDT 24 HR No Notes: Memoria Metoprolol -24 (Same as: l Tartrate 50 15:31: Toprol XL) Perez MG Extended May split Release tab, but Tablet do not [Toprol] crush. pregabalin No Notes: Memor ia 6-24 (Same as: l 14:52: Lyrica) [place] 00 tramadol No Notes: Not Mem oria hydrochlori 6-24 to exceed l de 50 MG 14:52: 400mg/day. Her burk Oral Tablet 00 (Same As: Ultram) Dextrose No 25 mL, Memoria 50% Syringe 10-15 Route: l 14:30: IVP, Perez Dosing Weight 96.818, kg, PRN, PRN Blood Glucose Results, Start date: 10/15/17 9:30:00 CDT, Duration: 30 day, Stop date: 11/14/17 9:29:00 CDT Glucagon No 1 mg, Memoria 24 Route: IM, l 14:30: PRN, [place] 00 Dosing Weight 96.818, kg, PRN Blood Glucose Results, Start date: 10/15/17 9:30:00 CDT, Duration: 30 day, Stop date: 11/14/17 9:29:00 CDT Furosemide No Notes: Memor ia 20 MG Oral 6-24 (Same as: l Tablet 14:00: Lasix) [place] [Lasix] 00 May cause GI upset. Give with food or milk. Plavix No Notes: Memoria 6-24 (Same As: l 14:00: Plavix) Perez 00 Zyprexa No Notes: Memoria 6-24 (Same as: l 14:00: ZyPREXA ) [place] 00 Lisinopril No Notes: Memor ia 6-24 (Same as: l 14:00: Prinivil, Perez 00 Zestril) Imdur No Notes: Memoria 6-24 (Same l 14:00: as:Imdur) [place] "Do Not Crush" Take on empty stomach/ full glass of water. Do not crush Saline No Notes: Memoria Flush 0.9% 6-24 (Same as: l 14:00: BD Perez 00 Posiflush) Aspirin 81 No Notes: Do Me moria MG Enteric 6-24 not crush l Coated 14:00: or chew. [place] Tablet 00 (Same As: Ecotrin) Insulin No Notes: Memoria Lispro 6-24 (Same as: l 13:28: Humalog ) Roll in palms of hands gently; Do not shake `vigorousl y. "Single Patient Use Only " WASTE: F/P - Black; E - Municipal Trash Bin Stable for 28 days at room temperatur e. Expires in days from ____Date Glucagon No 1 mg, Memoria 6-24 Route: IM, l 13:28: Drug form: PDR/INJ, PRN, Dosing Weight 96.818, kg, PRN Blood Glucose Results, Start date: 10/15/17 8:28:00 CDT, Duration: 30 day, Stop date: 11/14/17 8:27:00 CDT Dextrose No 12.5 gm, Memor ia 50% Syringe 24 25 mL, l 13:28: Route: IVP, Drug Form: INJ, Dosing Weight 96.818, kg, PRN, PRN Blood Glucose Results, Start date: 10/15/17 8:28:00 CDT, Duration: 30 day, Stop date: 11/14/17 8:27:00 CDT Insulin 2017-0 No 15 unit, Memori a Lispro 10-15 Route: l 13:24: SUB-Q, TID-Before Meals, Dosing Weight 96.818, kg, PRN Blood Glucose Results, Start date: 10/15/17 8:24:00 CDT, Duration: 30 day, Stop date: 11/14/17 8:23:00 CDT Glucagon No 1 mg, Memoria 10-15 Route: IM, l 13:24: PRN, Dosing Weight 96.818, kg, PRN Blood Glucose Results, Start date: 10/15/17 8:24:00 CDT, Duration: 30 day, Stop date: 11/14/17 8:23:00 CDT Dextrose No 25 mL, Memoria 50% Syringe 10-15 Route: l 13:24: IVP, Dosing Weight 96.818, kg, PRN, PRN Blood Glucose Results, Start date: 10/15/17 8:24:00 CDT, Duration: 30 day, Stop date: 11/14/17 8:23:00 CDT Tylenol No Notes: Max Gordon sarah 10-15 acetaminop l 13:15: hen = 4000mg/day (4 gm/day). (Same as: Tylenol) Saline No Notes: Memoria Flush 0.9% 10-15 (Same as: l 03:55: BD Posiflush) Nitroglycer No Notes: Gordon sarah in 10-15 (Same l 03:55: as:Nitroqu ick, Nitrostat) "Do Not Crush" Sublingual tablet 3 ML Yes 40 unit, Memoria insulin 10-15 SUB-Q, l degludec 02:37: Daily, 0 Lorna nn 100 UNT/ML 00 Refill(s) Pen Injector [Tresiba] lisinopril Yes 40 mg = 1 Me moria 40 mg oral 6-24 tab, PO, l tablet 02:37: Daily, 0 Refill(s) pneumococca No 0.5 mL, Mem oria l capsular 6-24 Route: IM, l polysacchar 02:08: KENNETH Her burk anthony type 1 43 Start vaccine / date: pneumococca 10/14/17 l capsular 21:08:43 polysacchar CDT, Stop anthony type date: 10A vaccine 11/13/17 / 21:03:43 pneumococca CDT l capsular polysacchar anthony type 11A vaccine / pneumococca l capsular polysacchar anthony type 12F vaccine / pneumococca l capsular polysacchar Hydralazine No Notes: Gordon sarah 6-23 (Same as: l 23:58: Apresoline ) Push over 5 minutes Aspirin No Notes: (Do Gordon sarah -23 Not Crush) l 22:42: Do not crush or chew. Nitroglycer No Notes: 1 Me moria in 0.02 10-14 gram is l MG/MG 22:41: approximat Martell n Topical 00 damien 1 inch Ointment of nitroglyce rin ointment (20 mg NTG per gram) (Same as:Nitro-B id) Labetalol No Notes: Memori a - (Same as: l 22:39: Normodyne, Trandate) Push over 2 minutes Give bolus over 2-3 minutes. Fentanyl No Notes: Memoria 10-14 (Same as: l 20:25: Sublimaze) Preservat lul free. Insulin 0 No 10 unit, Memori a regular 10-14 Route: l 18:55: IVP, ONCE, Dosing Weight 96.818, kg, Priority: STAT, Start date: 10/14/17 13:55:00 CDT, Stop date: 10/14/17 13:55:00 CDT Tramadol 0 No 50 kg, Memori a -23 Priority: l 18:54: STAT, Start date: 10/14/17 13:54:00 CDT, Stop date: 10/14/17 13:54:00 CDT Sodium 0 No 1,000 mL, Memori a Chloride 10-14 Infuse l 0.9% 18:51: Over: 1 [place] (Bolus) IV 00 hr, Route: IV, ONCE, Priority: STAT, Dosing Weight 96.818 kg, Start date: 10/14/17 13:51:00 CDT, Stop date: 10/14/17 13:51:00 CDT gabapentin No Notes: Memor ia 09-23 (Same as: l 21:00: Neurontin) [place] Insulin No 60 Memoria regular 09-22 units) l 09:41: WASTE: F/P Perez 00 - Black; E - Municipal Trash Bin Stable for 28 days at room temperatur e Expires in days from ____Date Dextrose No 12.5 gm, Memor ia 50% Syringe 09-22 25 mL, l 09:41: Route: Perez IVP, Drug Form: INJ, Dosing Weight 105.009, kg, PRN, PRN Blood Glucose Results, Start date: 09/22/17 4:41:00 CDT, Duration: 30 day, Stop date: 10/22/17 4:40:00 CDT Glucagon No 1 mg, Memoria 09-22 Route: IM, l 09:41: Drug form: Perez 00 PDR/INJ, PRN, Dosing Weight 105.009, kg, PRN Blood Glucose Results, Start date: 09/22/17 4:41:00 CDT, Duration: 30 day, Stop date: 10/22/17 4:40:00 CDT insulin, No Notes: Memoria isophane - Roll in l 05:00: palms of [place] 00 hands gently; Do not shake vigorously . (Same as: Humulin N) Do not hold insulin without contacting prescriber WASTE: F/P - Black; E - Municipal Trash Bin Stable for 28 days at room temperatur e Expires in days from ____Date Lovenox No Notes: Memoria 6- (Same as: l 03:00: Lovenox) Perez 00 remove No Notes: Memoria patch 09-22 Remove l 02:00: patch 12 Perez 00 hours after applicatio n each day. Lipitor No Notes: Memoria 09-22 Same as l 02:00: Lipitor insulin, No 10 unit, Memor ia isophane 09-22 Route: l 02:00: SUB-Q, [place] 00 Q12H, Dosing Weight 105.009, kg, Start date: 09/21/17 21:00:00 CDT, Duration: 30 day, Stop date: 10/21/17 9:00:00 CDT celecoxib No Notes: Memori a 09-22 NSAID. l 02:00: Please [place] 00 check indication . Not for seizure. (Same As: CeleBREX) Prozac No Notes: Memoria 09-21 (Same as: l 22:00: Prozac, Perez Sarafem) Lidocaine No Notes: Memori a Hydrochlori 09-21 Apply only l de 0.05 16:00: once for Martell n MG/MG 00 up to 12 Transdermal hours in a Patch 24-hour [Lidoderm] period (12 hours on and 12 hours off). (Same as: Lidoderm) "Remove old patch before applicatio n of new patch" lansoprazol No Notes: Gordon sarah e -31 Take 1 l 15:30: hour [place] 00 before or 2 hours after meal; Expires in 14 days. Shake well before use. (Same as:Prevaci d) Compound ed Product - formulatio n not commercial ly available* * Methocarbam No Notes: Gordon sarah ol 09-21 (Same l 15:02: as:Robaxin ) Acetaminoph No Notes: Max Memoria en 09-21 acetaminop l 15:02: hen 4000 Perez 00 mg/day (4 gm/day). (Same as: Tylenol Extra Strength) Ketorolac No 30 mg, Memori a 31 Route: l 15:02: IVP, ONCE, [place] 00 Dosing Weight 105.009, kg, Start date: 09/21/17 10:02:00 CDT, Stop date: 05/31/18 10:02:00 CDT Tramadol No Notes: Not Mem oria 5-31 to exceed l 15:01: 400mg/day. Perez 00 (Same As: Ultram) Zyprexa No Notes: Memoria 5-31 (Same as: l 14:00: ZyPREXA) Perez 00 24 HR No Notes: Memoria Metoprolol 5-31 (Same as: l Tartrate 25 14:00: Toprol XL) Perez MG Extended 00 Do Not Release Crush Tablet [Toprol] Gemfibrozil No Notes: Gordon sarah 5-31 (Same as: l 14:00: Lopid) Saline No Notes: Memoria Flush 0.9% 5-31 Same as: l 14:00: BD Posiflush Sterile sennosides, No Notes: Gordon sarah HALFWAY 5-31 (Same as: l 14:00: Senokot) Docusate No Notes: Memoria 5-31 (Same as: l 14:00: Colace) (Do Not Crush) POLYETHYLEN No Notes: Gordon sarah E GLYCOL 5-31 Dissolve l 3350 14:00: in 8 oz of water or juice. (Same as: Miralax) Potassium No Notes: Memori a Chloride 5-31 (Same as: l 10:41: Potassium Chloride) Potassium No Notes: Memori a Chloride 5-31 (Same as: l 08:00: KCL) Infuse over 2 hours. potassium No Notes: Memori a phosphate 5-31 (Same as: l 07:48: K Phosphate. ) 1 mMol phoshate has 1.47 mEq potassium Infuse over 4 hours potassium No Notes: Memori a phosphate-s 5-31 (Same as: l odium 07:48: Phos-NaK) phosphate 00 Each 1.5 250 mg-280 gm pkt has mg-160 mg 250mg oral powder phosphorou for s. Mix reconstitut w/2.5oz ion water and stir. Magnesium No Notes: Memori a Oxide 5-31 (Same as: l 07:48: Mag-Ox [place] 00 400) Magnesium oxide 063ay=657m g elemental magnesium Dose=____m g magnesium oxide (___mg elemental magnesium) Magnesium No Notes: Memori a Sulfate 09-21 WASTE: F/P l 07:48: - Sink; E - Municipal Trash Bin Calcium No Notes: Memoria Carbonate 09-21 (Same As: l 500 MG 07:48: Tums) [place] 00 Calcium Tablet Carbonate 500 mg = 200 mg elemental calcium Dose = mg calcium carbonate ( mg elemental calcium) Calcium No Notes: Memoria Gluconate 09-21 WASTE: F/P l 07:48: - Sink; E - Municipal Trash Bin sodium No 30 mmol, Memoria phosphate 09-21 10 mL, l 07:48: Route: IVPB, PRN, Dosing Weight 105.009, kg, PRN Abnormal Lab Result, Start date: 09/21/17 2:48:00 CDT, Duration: 30 day, Stop date: 10/21/17 2:47:00 CDT, FOR ICU USE ONLY NS 1,000 mL No 1,000 mL, M emoria 09-21 Rate: 50 l 05:27: ml/hr, Infuse over: 20 hr, Route: IV, Dosing Weight 105.009 kg, Total Volume: 1,000, Start date: 09/21/17 0:27:00 CDT, Duration: 30 day, Stop date: 10/21/17 0:26:00 CDT, 2.23, m2 Dextrose No 25 gm, 50 Gordon sarah 50% Syringe -31 mL, Route: l 03:41: IVP, Drug Form: INJ, Dosing Weight 105.009, kg, PRN, PRN Blood Glucose Results, Start date: 09/20/17 22:41:00 CDT, Duration: 30 day, Stop date: 10/20/17 22:40:00 CDT Insulin No Notes: Memoria regular 100 09-21 (Same as: l unit + 03:41: Humulin R Martell n Sodium 00 and Chloride NovoLIN R) 0.9% WASTE: (titrate) F/P - 99 mL Black; E - Municipal Trash Bin (Do not shake) Labetalol No 10 mg, 2 Gordon sarah 5-31 mL, Route: l 03:15: IVP, Drug form: INJ, Q15Min, Dosing Weight 105.009, kg, PRN Hypertensi on, Start date: 09/20/17 22:15:00 CDT, Duration: 3 doses or times, Stop date: Limited # of times Hydralazine No Notes: Gordon sarah 5-31 (Same as: l 03:15: Apresoline ) Push over 5 minutes Dextrose No 12.5 gm, Memor ia 50% Syringe 5-31 25 mL, l 02:37: Route: IVP, Drug Form: INJ, Dosing Weight 95.909, kg, PRN, PRN Abnormal Lab Result, Start date: 09/20/17 21:37:00 CDT, Duration: 30 day, Stop date: 10/20/17 21:36:00 CDT Regular No 60 Memoria Insulin, 5-31 units) l Human 100 02:37: WASTE: F/P He rmann UNT/ML 00 - Black; E Injectable - Solution Municipal Trash Bin Stable for 28 days at room temperatur e Expires in days from ____Date Saline No Notes: Memoria Flush 0.9% 5-31 Same as: l 02:37: BD Posiflush Sterile Acetaminoph No Notes: Do M emoria en 325 MG / 5-31 not exceed l Hydrocodone 02:37: 4gm/day of Perez Bitartrate 00 acetaminop 10 MG Oral hen. Tablet (Same as: [place] 325/10) Bisacodyl No Notes: Memori a 5-31 (Same As: l 02:37: Dulcolax, Perez 00 Bisco-Lax) Ondansetron No Notes: Gordon sarah 5-31 (Same as: l 02:37: Zofran) MEDICATION WASTE Product Size: 4 mg Product Wasted: ___ mg Morphine No Notes: Memoria 5-31 (Same l 02:37: as:MORPhin e Sulfate) Dilaudid Yes Notes: Memoria 5-31 (Same as: l 00:00: Dilaudid) NS (Bolus) No 2,000 mL, Me moria IV 5-30 1,000 l 23:05: ml/hr, Infuse Over: 1 hr, Route: IV, ONCE, Priority: STAT, Dosing Weight 95.909 kg, Start date: 09/20/17 18:05:00 CDT, Stop date: 09/20/17 18:05:00 CDT Dextrose No 12.5 gm, Memor ia 50% Syringe 5-30 25 mL, l 23:01: Route: IVP, Drug Form: INJ, Dosing Weight 95.909, kg, PRN, PRN Blood Glucose Results, Start date: 09/20/17 18:01:00 CDT, Duration: 30 day, Stop date: 10/20/17 18:00:00 CDT Insulin No Notes: Memoria regular 100 5-30 (Same as: l unit + 23:01: Humulin R Martell n Sodium 00 and Chloride NovoLIN R) 0.9% WASTE: (titrate) F/P - 99 mL Black; E - Municipal Trash Bin (Do not shake) Hydralazine No Notes: Gordon sarah 5-30 (Same as: l 22:04: Apresoline ) Push over 5 minutes Fentanyl No Notes: Memoria 5-30 (Same as: l 21:48: Sublimaze) Preservat lul free. Saline No Notes: Memoria Flush 0.9% 5-30 (Same as: l 21:02: BD Posiflush) Lipitor No Notes: Memoria 5-10 (Same as: l 02:00: Lipitor) insulin No Notes: Memoria glargine 5-10 (Same as: l 02:00: Lantus) Do not hold insulin without contacting prescriber WASTE: F/P - Black; E - Municipal Trash Bin "single patient use only" Levemir No 30 unit, Memori a FlexPen 5-10 Route: l 02:00: SUB-Q, Perez 00 Drug form: SOLN, Bedtime, Dosing Weight 80.455, kg, Start date: 08/30/17 21:00:00 CDT, Duration: 30 day, Stop date: 09/28/17 21:00:00 CDT Prozac No Notes: Memoria 5-09 (Same as: l 22:00: Prozac) Hydrochloro No 1 tab, Gordon sarah thiazide 25 08-30 Route: PO, l MG / 14:00: Drug Form: Perez Lisinopril 00 TAB, 20 MG Oral Dosing Tablet Weight 80.455, kg, Daily, Start date: 08/30/17 9:00:00 CDT, Duration: 30 day, Stop date: 09/28/17 9:00:00 CDT Gemfibrozil No Notes: Gordon sarah 5-09 (Same as: l 14:00: Lopid) Perez Furosemide No Notes: Memor ia 20 MG Oral -09 (Same as: l Tablet 14:00: Lasix) [place] [Lasix] 00 May cause GI upset. Give with food or milk. Plavix No Notes: Memoria 5-09 (Same As: l 14:00: Plavix) Perez Aspirin 81 No Notes: Do Me moria MG Enteric -09 not crush l Coated 14:00: or chew. Perez Tablet 00 (Same As: Ecotrin) hydrochloro No Notes: Gordon sarah thiazide 5-09 (Same as: l 14:00: Hydrodiuri [place] 00 l). Give with food. Zyprexa No Notes: Memoria 5-09 (Same as: l 14:00: ZyPREXA ) [place] 00 24 HR No Notes: Memoria Metoprolol 5-09 (Same as: l Tartrate 25 14:00: Toprol XL) [place] MG Extended 00 Do Not Release Crush Tablet [Toprol] Metformin No Notes: Memori a hydrochlori 5-09 (Same as: l de 1000 MG 14:00: Glucophage H ermann Oral Tablet 00 ) Take with meal Imdur No Notes: Memoria 08-30 (Same l 14:00: as:Imdur) Perez "Do Not Crush" Take on empty stomach/ full glass of water. Do not crush lisinopril No Notes: Memor ia 08-30 (Same as: l 14:00: Prinivil, [place] Zestril) Insulin No Notes: Memoria Lispro 08-30 (Same as: l 12:30: Humalog ) [place] 00 Roll in palms of hands gently; Do not shake `vigorousl y. "Single Patient Use Only " WASTE: F/P - Black; E - Municipal Trash Bin Stable for 28 days at room temperatur e. Expires in days from ____Date NovoLOG No 30 unit, Memori a FlexPen 08-30 Route: l 12:30: SUB-Q, [place] 00 Drug form: SOLN, TID-Before Meals, Dosing Weight 80.455, kg, Start date: 08/30/17 7:30:00 CDT, Duration: 30 day, Stop date: 09/28/17 16:30:00 CDT Humalog No Notes: Memoria 08-30 (Same as: l 12:30: Humalog ) [place] 00 Roll in palms of hands gently; Do not shake `vigorousl y. "Single Patient Use Only " WASTE: F/P - Black; E - Municipal Trash Bin Stable for 28 days at room temperatur e. Expires in days from ____Date Zofran No Notes: Memoria 08-30 (Same as: l 02:52: Zofran) Perez 00 MEDICATION WASTE Product Size: 4 mg Product Wasted: ___ mg Morphine No Notes: Memoria 08-30 (Same l 02:51: as:MORPhin Perez 00 e Sulfate) Nitroglycer No Notes: Gordon sarah in 0.4 MG 5-09 (Same l Sublingual 02:39: as:Nitroqu H ermann Tablet 00 ick, [Nitrostat] Nitrostat) "Do Not Crush" Sublingual tablet Saline No Notes: Memoria Flush 0.9% 08-30 (Same as: l 02:00: BD Perez Posiflush) Please No Please Memor ia update 08-30 update l height, 02:00: height, Perez weight, 00 weight, allergies allergies on on profile profile, ATTN:RN, Drug form: MISC, Route: MISC, Q30Min, 08/29/17 21:00:00 CDT, Duration: 30 day, Stop date: 09/28/17 20:30:00 CDT Insulin No Notes: Memoria Lispro 08-30 (Same as: l 01:51: Humalog ) Roll in palms of hands gently; Do not shake `vigorousl y. "Single Patient Use Only " WASTE: F/P - Black; E - [employer] Trash Bin Stable for 28 days at room temperatur e. Expires in days from ____Date Dextrose No 12.5 gm, Memor ia 50% Syringe 08-30 25 mL, l 01:51: Route: [place] 00 IVP, Drug Form: INJ, Dosing Weight 80.455, kg, PRN, PRN Blood Glucose Results, Start date: 08/29/17 20:51:00 CDT, Duration: 30 day, Stop date: 09/28/17 20:50:00 CDT Glucagon No 1 mg, Memoria 08-30 Route: IM, l 01:51: Drug form: [place] 00 PDR/INJ, PRN, Dosing Weight 80.455, kg, PRN Blood Glucose Results, Start date: 08/29/17 20:51:00 CDT, Duration: 30 day, Stop date: 09/28/17 20:50:00 CDT Saline No Notes: Memoria Flush 0.9% 08-30 (Same as: l 01:45: BD Perez Posiflush) Nitroglycer No 0.4 mg, Mem oria in 08-30 Route: SL, l 01:45: Drug form: TAB, Q5Min, Dosing Weight 80.455, kg, PRN Chest Pain, Start date: 08/29/17 20:45:00 CDT, Duration: 3 doses or times, Stop date: Limited # of times metoprolol No Notes: Memor ia tartrate 08-30 (Same as: l 00:34: Lopressor) Hydralazine No Notes: Gordon sarah 08-30 (Same as: l 00:33: Apresoline ) Push over 5 minutes Aspirin No Notes: Memoria 08-29 Take with l 23:24: food. Saline No Notes: Memoria Flush 0.9% 08-29 (Same as: l 18:43: BD Posiflush) Levemir Yes Mohamed 40 units Mem oria FlexTouch -13 [place] l 02:47: Tramadol Yes Mohamed 1 tablet Me moria HCl 4-13 Salvador as needed l 02:47: Reglan Yes Mohamed not Memoria 4-13 Salvador defined l 02:47: Clonidine Yes Mohamed 1 tablet M emoria HCl -09 Salvador l 00:00: Lisinopril Yes Mohamed 1 tablet Memoria 4-03 Salvador l 02:47: Omeprazole Yes Mohamed 1 capsule Memoria 3-23 Salvador l 02:46: Metoprolol Yes Mohamed 1 tablet Memoria Succinate 3-21 Salvador l ER 00:00: Carvedilol Yes Mohamed 2 tablet Memoria 3-21 Salvador l 00:00: Carvedilol Yes Mohamed 2 tablet Memoria 3-16 Salvador l 02:46: nitroglycer 2016-[address] 0.4 B aylor in 1-27 mg under College (NITROSTAT) 16:13: the tongue of 0.4 mg 56 as needed Medicin sublingual for Chest e tablet pain. Place one tablet under tongue for chest pain. Repeat every 5 minutes for a total of three pills in 15 minutes PRN persistent chest pain. Insulin 2016-04 Yes 40U Inject 40 Bay[place] r Detemir -27 Units into Colleg e (LEVEMIR 16:13: the skin of FLEXPEN SC) 56 two times Med icin daily. e atorvastati 2016-04 Yes 80mg Take 80 mg Felix n (LIPITOR) 05-20 by mouth Saira ege 80 MG 16:13: daily. of tablet 56 Medicin e fluoxetine 2016-04 Yes 40mg Take 40 mg B aylor (PROZAC) 40 05-20 by mouth Saira ege MG capsule 16:13: daily. of 56 Medicin e clopidogrel 2016-04 Yes 75mg Take 75 mg Felix (PLAVIX) 75 05-20 by mouth Saira ege MG tablet 16:13: daily. of 55 Medicin e furosemide 2016-04 Yes 20mg Take 20 mg B aylor (LASIX) 20 05-20 by mouth Colle ge MG tablet 16:13: daily. of 55 Medicin e lisinopril 2016-04 Yes 20mg Take 20 mg B aylor (PRINIVIL, 05-20 by mouth Colle ge ZESTRIL) 20 16:13: two times o f MG tablet 55 daily. Medicin e Ranexa 2016-04 Yes Mohamed 1 tablet Gordon sarah 0-25 Salvador l 00:00: Famotidine 2016-0 No 20 mg, Memor ia 4-19 Route: l 15:48: IVP, ONCE, Dosing Weight 80.455, kg, Priority: STAT, Start date: 08/10/16 10:48:00 CDT, Stop date: 08/10/16 10:48:00 CDT Ondansetron 2016-0 No 4 mg, Memor ia 4-19 Route: l 15:48: IVP, ONCE, Dosing Weight 80.455, kg, Priority: STAT, Start date: 08/10/16 10:48:00 CDT, Stop date: 08/10/16 10:48:00 CDT GI cocktail 2016-0 No 30 mL, Grodon sarah 4-19 Route: PO, l 15:48: Dosing [place] 00 Weight 80.455, kg, ONCE, STAT, Start date: 08/10/16 10:48:00 CDT, Stop date: 08/10/16 10:48:00 CDT Morphine 2017-0 No 4 mg, Memoria 08-10 Route: l 15:48: IVP, ONCE, Perez 00 Dosing Weight 80.455, kg, Priority: STAT, Start date: 08/10/16 10:48:00 CDT, Stop date: 08/10/16 10:48:00 CDT Sodium 2017-0 No 1,000 mL, Memori a Chloride 08-10 2,000 l 0.154 15:48: ml/hr, [place] MEQ/ML 00 Infuse Injectable Over: 30 Solution minutes, Route: IV, ONCE, Priority: STAT, Dosing Weight 80.455 kg, Start date: 08/10/16 10:48:00 CDT, Duration: 1 doses or times, Stop date: 08/10/16 10:48:00 CDT Saline 2016-0 No Notes: Memoria Flush 0.9% 08-10 Same as: l 15:48: BD [place] 00 Posiflush Sterile Metoclopram 2015-04 Yes 10 mg = 1 M emoria anthony 10 MG 2-31 tab, PO, l Oral Tablet 02:53: QID, PRN rmann [Reglan] 00 Nausea & Vomiting, X 10 day, # 40 tab, 0 Refill(s) Acetaminoph 2015-04 No 1 cap, PO, Memoria en 300 MG / 2-31 Q4H, PRN l butalbital 02:50: PRN [place] 50 MG / 00 Headache, Caffeine 40 Do not MG Oral exceed 6 Capsule capsules [Fioricet] in 24 hours, X 10 day, # 20 caplet, 0 Refill(s) Sodium 2015-04 No 1,000 mL, Memori a Chloride 2-31 1,000 l 0.154 01:08: ml/hr, Perez MEQ/ML 00 Infuse Injectable Over: 1 Solution hr, Route: IV, 1,000, Drug form: INJ, ONCE, Priority: STAT, Dosing Weight 92.727 kg, Start date: 04/22/16 19:08:00 [employer], Duration: 1 doses or times, Stop date: 04/22/16 19:08:00 [employer] Reglan 2015-04 No Notes: Memoria 2-31 (Same as: l 01:08: Reglan) [place] 00 Benadryl 2015-04 No Notes: Memoria 2-31 (Same as: l 01:08: Benadryl) [place] 00 Sodium No 500 mL, Memoria Chloride 10-15 500 ml/hr, l 0.154 21:21: Infuse [place] MEQ/ML 00 Over: 1 Injectable hr, Route: Solution IV, 500, Drug form: INJ, ONCE, Priority: STAT, Dosing Weight 100 kg, Start date: 10/16/15 16:21:00 CDT, Duration: 1 doses or times, Stop date: 10/16/15 16:21:00 CDT Insulin No Notes: Memoria regular - (Same as: l 21:15: Humulin R [place] 00 and NovoLIN R) WASTE: F/P - Black; E - Municipal Trash Bin (Do not shake) Acetaminoph No Notes: Gordon sarah en 325 MG / 10-15 Same as l Hydrocodone 21:01: [place] Lorna nn Bitartrate 00 325-7.5mg 7.5 MG Oral Do not Tablet exceed [[place] 4gm/day of 7.5/325] acetaminop hen. Ketorolac No 15 mg, Memori a 10-15 Route: l 19:07: IVP, Drug Perez 00 form: INJ, ONCE, Dosing Weight 100, kg, Priority: STAT, Start date: 10/16/15 14:07:00 CDT, Stop date: 10/16/15 14:07:00 CDT Morphine No 2 mg, Memoria 10-15 Route: l 18:05: IVP, Drug Perez 00 form: INJ, ONCE, Dosing Weight 100, kg, Priority: STAT, Start date: 10/16/15 13:05:00 CDT, Stop date: 10/16/15 13:05:00 CDT Sodium No 1,000 mL, Memori a Chloride 10-15 1,000 l 0.154 17:07: ml/hr, Perez MEQ/ML 00 Infuse Injectable Over: 1 Solution hr, Route: IV, 1,000, Drug form: INJ, ONCE, Priority: STAT, Dosing Weight 100 kg, Start date: 10/16/15 12:07:00 CDT, Duration: 1 doses or times, Stop date: 10/16/15 12:07:00 CDT Insulin No 10 unit, Memori a regular 24 Route: l 15:41: IVP, ONCE, Dosing Weight 100, kg, Priority: STAT, Start date: 10/16/15 10:41:00 CDT, Stop date: 10/16/15 10:41:00 CDT Dextrose No 12.5 gm, Memor ia 50% Syringe 10-15 25 mL, l 15:40: Route: IVP, Drug Form: INJ, Dosing Weight 100, kg, PRN, PRN Blood Glucose Results, Start date: 10/16/15 10:40:00 CDT, Duration: 30 day, Stop date: 11/15/15 10:39:00 CDT Glucagon No 1 mg, Memoria 24 Route: IM, l 15:40: Drug form: PDR/INJ, PRN, Dosing Weight 100, kg, PRN Blood Glucose Results, Start date: 10/16/15 10:40:00 CDT, Duration: 30 day, Stop date: 11/15/15 10:39:00 CDT Saline No Notes: Memoria Flush 0.9% 10-15 (Same as: l 15:40: BD Posiflush) Sodium No 1,000 mL, Memori a Chloride 24 2,000 l 0.154 15:40: ml/hr, MEQ/ML 00 Infuse Injectable Over: 30 Solution MINS, Route: IV, ONCE, Priority: STAT, Dosing Weight 100 kg, Start date: 10/16/15 10:40:00 CDT, Duration: 1 doses or times, Stop date: 10/16/15 10:40:00 CDT Zyprexa No Notes: Memoria 4-26 (Same as: l 14:00: ZyPREXA ) [place] 00 Prinivil No Notes: Memoria 4-26 (Same as: l 14:00: Prinivil, Zestril) hydrochloro No Notes: Gordon sarah thiazide 25 4-26 (Same as: l mg oral 14:00: Hydrodiuri Herm megha tablet 00 l) With food. Imdur No Notes: Memoria 4-26 (Same l 14:00: as:Imdur) Perez 00 "Do Not Crush" Take on empty stomach/ full glass of water. Do not crush Hydrochloro No 1 tab, Gordon sarah thiazide 25 4-26 Route: PO, l MG / 14:00: Drug Form: [place] Lisinopril 00 TAB, 20 MG Oral Dosing Tablet Weight 100, kg, Daily, Start date: 08/18/15 9:00:00 CDT, Duration: 30 day, Stop date: 09/16/15 9:00:00 CDT Furosemide No Notes: Memor ia 20 MG Oral 4-26 (Same as: l Tablet 14:00: Lasix) [place] [Lasix] 00 May cause GI upset. Give with food or milk. Plavix No Notes: Memoria 4-26 (Same As: l 14:00: Plavix) [place] 00 Levemir No Notes: Memoria FlexPen 4-26 Same as l 02:00: Levemir Do not hold insulin without contacting prescriber WASTE: F/P - Black; E - Municipal Trash Bin "single patient use only" Lipitor No Notes: Memoria 4-26 (Same as: l 02:00: Lipitor) Perez 00 24 HR No Notes: Memoria Metoprolol 4-25 (Same as: l Tartrate 25 22:00: Toprol XL) [place] MG Extended 00 Do Not Release Crush Tablet [Toprol] Metformin No Notes: Memori a hydrochlori 4-25 (Same as: l de 1000 MG 22:00: Glucophage H ermann Oral Tablet ) Take with meal Gemfibrozil No Notes: Gordon sarah 4-25 (Same as: l 22:00: Lopid) Perez 00 Prozac No Notes: Memoria 4-25 (Same as: l 22:00: Prozac, [place] 00 Sarafem) Insulin No Notes: Memoria regular 4-25 (Same as: l 18:12: Humulin R [place] 00 and NovoLIN R) WASTE: F/P - Black; E - Municipal Trash Bin (Do not shake) Levemir No Notes: Memoria 4-25 Same as l 18:12: Levemir Do Perez 00 not hold insulin without contacting prescriber WASTE: F/P - Black; E - Municipal Trash Bin "single patient use only" Aspirin 81 No Notes: Do Me moria MG Enteric 4-25 not crush l Coated 17:00: or chew. [place] Tablet 00 (Same As: Ecotrin) NovoLOG No Notes: Memoria FlexPen 4-25 Roll in l 16:50: palms of Perez 00 hands gently; Do not shake vigorously . (Same as: NovoLOG) "single patient use only" WASTE: F/P - Black; E - Municipal Trash Bin Stable for 28 days at room temperatur e. Expires in days from ____Date Esomeprazol Yes 40 mg = 1 M emoria e 40 MG 4-25 cap, PO, l Enteric 15:25: Daily, # Martell n Coated 00 30 cap, 1 Capsule Refill(s) Nitroglycer No Notes: Gordon sarah in 0.4 MG 4-25 (Same l Sublingual 15:20: as:Nitroqu H ermann Tablet 00 ick, [Nitrostat] Nitrostat) "Do Not Crush" Sublingual tablet atropine No 0.5 mg, 5 Gordon sarah 4-25 mL, Route: l 03:09: IVP, Drug Perez form: INJ, PRN, PRN Bradycardi a, Start date: 08/16/15 22:09:00 CDT, Duration: 30 day, Stop date: 09/15/15 22:08:00 CDT Saline No Notes: Memoria Flush 0.9% 4-25 (Same as: l 02:00: BD [place] Posiflush) Saline No Notes: [facility]oria Flush 0.9% 4-25 (Same as: l 00:43: BD [place] Posiflush) Nitroglycer No Notes: Gordon sarah in 4-25 (Same l 00:43: as:Nitroqu Perez 00 ick, Nitrostat) "Do Not Crush" Sublingual tablet Morphine No Notes: Memoria 4-25 (Same l 00:43: as:MORPhin [place] 00 e Sulfate) 24 HR Yes 120 mg = 2 Memori a Isosorbide 4-25 tab, PO, l Mononitrate 00:12: QAM, 0 Herm megha 60 MG 00 Refill(s) Extended Release Tablet [Imdur] Nitroglycer Yes 0.4 mg = 1 Memoria in 0.4 MG 4-25 tab, SL, l Sublingual 00:11: Q5Min, PRN H ermann Tablet 00 as needed [Nitrostat] for chest pain, 0 Refill(s) clopidogrel Yes 75 mg = 1 M emoria 75 MG Oral 4-25 tab, PO, l Tablet 00:11: Daily, 0 [place] [Plavix] 00 Refill(s) 24 HR Yes 25 mg = 1 Memoria Metoprolol 4-25 tab, PO, l Tartrate 25 00:11: Daily, 0 He rmann MG Extended 00 Refill(s) Release Tablet [Toprol] gemfibrozil Yes 600 mg = 1 Memoria 600 mg oral 4-25 tab, PO, l tablet 00:10: BID, 0 Perez 00 Refill(s) atorvastati Yes 80 mg = 1 M emoria n 80 MG 4-25 tab, PO, l Oral Tablet 00:10: Bedtime, 0 Perez [Lipitor] 00 Refill(s) Methocarbam No 1,500 mg = Memoria ol 750 MG 4-25 2 tab, PO, l Oral Tablet 00:10: TID, PRN He rmann [Robaxin] 00 Muscle Spasms, 0 Refill(s) Furosemide Yes 20 mg = 1 Me moria 20 MG Oral 4-25 tab, PO, l Tablet 00:09: Daily, 0 Perez [Lasix] 00 Refill(s) Hydrochloro Yes 1 tab, PO, Memoria thiazide 25 4-25 Daily, 0 l MG / 00:09: Refill(s) [place] Lisinopril 00 20 MG Oral Tablet 3 ML Yes 30 unit, Memoria Insulin, 4-25 SUB-Q, l Aspart, 00:08: TID-Before Herm megha Human 100 00 Meals, 0 UNT/ML Pen Refill(s) Injector [NovoLog] 3 ML Yes 30 unit, Memoria insulin 4-25 SUB-Q, l detemir 100 00:07: Bedtime, 0 Perez UNT/ML 00 Refill(s) Prefilled Syringe [Levemir] Morphine No Notes: Memoria 4-24 (Same l 23:14: as:MORPhin [place] 00 e Sulfate) potassium No Notes: Memori a chloride 4-24 (Same as: l 22:21: K-Dur 20) Perez 00 "Do Not Crush" With food and full glass of water Insulin, No Notes: Memoria Aspart, 4-24 Roll in l Human 20:57: palms of [place] 00 hands gently; Do not shake vigorously . (Same as: NovoLOG) "single patient use only" WASTE: F/P - Black; E - Municipal Trash Bin Stable for 28 days at room temperatur e. Expires in days from ____Date Aspirin No Notes: Memoria 4-24 Take with l 20:57: food. Perez 00 Morphine No Notes: Memoria 4-24 (Same l 20:57: as:MORPhin [place] 00 e Sulfate) Sodium No 1,000 mL, Memori a Chloride 4-24 1000 l 0.154 20:57: ml/hr, Perez MEQ/ML 00 Infuse Injectable Over: 1 Solution hr, Route: IV, 1,000, Drug form: INJ, ONCE, Priority: STAT, Dosing Weight 100 kg, Start date: 08/16/15 15:57:00 CDT, Duration: 1 doses or times, Stop date: 08/16/15 15:57:00 CDT Saline No Notes: Memoria Flush 0.9% 4-24 (Same as: l 20:57: BD [place] 00 Posiflush) metoprolol Yes 25 mg = 1 Me moria 25 mg oral 2-13 tab, PO, l tablet, 15:04: Daily, # Martell n extended 05 30 tab, 0 release Refill(s) 24 HR Yes 120 mg = 2 Memori a Isosorbide 2-13 tab, PO, l Mononitrate 15:03: QAM, # 60 H ermann 60 MG 59 tab, 3 Extended Refill(s) Release Tablet [Imdur] prasugrel Yes 10 mg = 1 Mem oria 10 mg oral 2-13 tab, PO, l tablet 15:03: Daily, # [place] 00 30 tab, 0 Refill(s) Nitroglycer Yes 0.4 mg = 1 Memoria in 0.4 MG 2-13 tab, SL, l Sublingual 15:03: Q5Min, PRN H ermann Tablet 00 Chest pain, Give up to 3 doses, # 10 tab, 0 Refill(s) Aspirin 81 No Notes: Do Me moria MG Enteric 2-13 not crush l Coated 15:00: or chew. Perez Tablet (Same As: Ecotrin) prasugrel No 60kg, Memori a 2-13 without l 15:00: history of TIA/Ischem ic stroke and without likely bypass surgery Aspirin 325 No Notes: Gordon sarah MG Oral 2-13 Take with l Tablet 15:00: food. atropine No 0.5 mg, 5 Gordon sarah 2-13 mL, Route: l 03:37: IVP, Drug form: INJ, PRN, PRN Bradycardi a, Start date: 06/05/15 21:37:00, Duration: 30 day, Stop date: 07/05/15 22:36:00 Ticagrelor No 90 mg, Memor ia 2-13 Route: PO, l 03:00: Q12H, Dosing Weight 97.727, kg, Start date: 06/05/15 21:00:00, Duration: 30 day, Stop date: 07/05/15 9:00:00 Aspirin 325 No Notes: Gordon sarah MG Oral 2-12 Take with l Tablet 23:46: food. Nitroglycer No Notes: Gordon sarah in 2-12 (Same l 23:46: as:Nitroqu [place] 00 ick, Nitrostat) "Do Not Crush" Sublingual tablet Sodium No 1,200 mL, Memori a Chloride 06-05 Rate: 100 l 0.154 23:46: ml/hr, Perez MEQ/ML 00 Infuse Injectable over: 12 Solution hr, Route: IV, Dosing Weight 97.727 kg, Total Volume: 1,200, Start date: 06/05/15 17:46:00, Duration: 24 hr, Stop date: 06/06/15 17:45:00 Zyprexa No Notes: Memoria 2-12 (Same as: l 03:00: ZyPREXA ) Perez atorvastati No Notes: Gordon sarah n -12 (Same as: l 03:00: Lipitor) Perez hydrochloro No Notes: Gordon sarah thiazide 25 2-11 (Same as: l mg oral 15:00: Hydrodiuri Herm megha tablet 00 l) With food. Levemir No Notes: Memoria FlexPen 2-11 Same as l 15:00: Levemir Do Perez 00 not hold insulin without contacting prescriber WASTE: F/P - Black; E - Municipal Trash Bin "single patient use only" Imdur No Notes: Memoria 2-11 (Same l 15:00: as:Imdur) [place] 00 "Do Not Crush" Take on empty stomach/ full glass of water. Do not crush Hydrochloro No 1 tab, Gordon sarah thiazide 25 2-11 Route: PO, l MG / 15:00: Drug Form: [place] Lisinopril 00 TAB, 20 MG Oral Dosing Tablet Weight 97.727, kg, Daily, Start date: 06/04/15 9:00:00, Duration: 30 day, Stop date: 07/03/15 9:00:00 Gemfibrozil No Notes: Gordon sarah 2-11 (Same as: l 15:00: Lopid) [place] 00 Prozac No Notes: Memoria 2-11 (Same as: l 15:00: Prozac, Perez 00 Sarafem) Famotidine No Notes: Memor ia 20 MG Oral 2-11 (Same as: l Tablet 15:00: Pepcid) [place] [Pepcid] 00 Plavix No Notes: Memoria 2-11 (Same As: l 15:00: Plavix) Perez 00 Lisinopril No 20 mg, Memor ia 2-11 Route: PO, l 15:00: Drug form: Perez 00 TAB, Daily, Dosing Weight 97.727, kg, Start date: 06/04/15 9:00:00, Duration: 30 day, Stop date: 07/03/15 9:00:00 metoprolol No Notes: Memor ia extended 2-11 (Same as: l release 15:00: Toprol XL) Herm megha 00 Do Not Crush Prinivil No Notes: Memoria 2-11 (Same as: l 15:00: Prinivil, Perez 00 Zestril) Saline No Notes: Memoria Flush 0.9% 2-11 (Same as: l 15:00: BD [place] Posiflush) Aspirin 81 No Notes: Do Me moria MG Enteric 2-11 not crush l Coated 15:00: or chew. [place] Tablet 00 (Same As: Ecotrin) normal No 1,000 mL, Memori a saline 0.9% 2-11 Rate: 75 l IV 1,000 mL 04:15: ml/hr, Herm megha Infuse over: 13.3 hr, Route: IV, Dosing Weight 97.727 kg, Total Volume: 1,000, Start date: 06/03/15 22:15:00, Duration: 30 day, Stop date: 07/03/15 22:14:00 Zofran No Notes: Memoria 2-11 (Same as: l 03:53: Zofran) Perez MEDICATION WASTE Product Size: 4 mg Product Wasted: ___ mg Morphine No Notes: Memoria 2-11 (Same l 03:52: as:MORPhin [place] e Sulfate) Insulin, No Notes: Memoria Aspart, 2-11 Roll in l Human 03:51: palms of Perez hands gently; Do not shake vigorously . (Same as: NovoLOG) "single patient use only" WASTE: F/P - Black; E - Municipal Trash Bin Stable for 28 days at room temperatur e. Expires in days from ____Date Glucagon 2016-0 No 1 mg, Memoria 2-11 Route: IM, l 03:51: Drug form: Perez 00 PDR/INJ, PRN, Dosing Weight 97.727, kg, PRN Blood Glucose Results, Start date: 06/03/15 21:51:00, Duration: 30 day, Stop date: 07/03/15 21:50:00 Dextrose 2016-0 No 25 gm, 50 Gordon sarah 50% Syringe 2-11 mL, Route: l 03:51: IVP, Drug Form: INJ, Dosing Weight 97.727, kg, PRN, PRN Blood Glucose Results, Start date: 06/03/15 21:51:00, Duration: 30 day, Stop date: 07/03/15 21:50:00 Tylenol 2015-0 No Notes: Do Memor ia 2-11 not exceed l 03:50: 4 gm/day. [place] (Same as: Tylenol) Nitroglycer 2015-0 No Notes: Gordon sarah in 0.4 MG -11 (Same l Sublingual 03:50: as:Nitroqu H ermann Tablet 00 ick, Nitrostat) "Do Not Crush" Sublingual tablet Dextrose 2015-0 No 12.5 gm, Memor ia 50% Syringe 2-11 25 mL, l 03:14: Route: [place] 00 IVP, Drug Form: INJ, Dosing Weight 97.727, kg, PRN, PRN Blood Glucose Results, Start date: 06/03/15 21:14:00, Duration: 30 day, Stop date: 07/03/15 21:13:00 Glucagon 2016-0 No 1 mg, Memoria 2-11 Route: IM, l 03:14: Drug form: Perez 00 PDR/INJ, PRN, Dosing Weight 97.727, kg, PRN Blood Glucose Results, Start date: 06/03/15 21:14:00, Duration: 30 day, Stop date: 07/03/15 21:13:00 Saline No Notes: Memoria Flush 0.9% 2-11 (Same as: l 03:14: BD Perez 00 Posiflush) Insulin No Notes: Memoria regular 2-11 (Same as: l 01:30: Humulin R Perez 00 and NovoLIN R) WASTE: F/P - Black; E - Municipal Trash Bin (Do not shake) Sodium No 1,000 mL, Memori a Chloride 2-11 1,000 l 0.154 00:13: ml/hr, Perez MEQ/ML 00 Infuse Injectable Over: 1 Solution hr, Route: IV, 1,000, Drug form: INJ, ONCE, Priority: STAT, Dosing Weight 97.727 kg, Start date: 06/03/15 18:13:00, Duration: 1 doses or times, Stop date: 06/03/15 18:13:00 Insulin No Notes: Memoria regular 2-11 (Same as: l 00:00: Humulin R Perez 00 and NovoLIN R) WASTE: F/P - Black; E - Municipal Trash Bin (Do not shake) normal No 1,000 mL, Memori a saline 0.9% 2-10 Rate: l IV 1,000 mL 23:59: 1,000 Lorna nn 00 ml/hr, Infuse over: 1 hr, Route: IV, Dosing Weight 97.727 kg, Total Volume: 1,000, Start date: 06/03/15 17:59:00, Duration: 1 doses or times, Stop date: 06/03/15 18:58:00 Nitroglycer No 0.4 mg, 1 M emoria in 0.4 MG 2-10 tab, l Sublingual 23:57: Route: SL, H ermann Tablet 00 ONCE, [Nitrostat] Dosing Weight 97.727, kg, Start date: 06/03/15 17:57:00, Stop date: 06/03/15 17:57:00 Aspirin 0 No Route: Memoria 2-10 CHEW, Drug l 23:56: form: [place] 00 CHEWTAB, ONCE, Dosing Weight 97.727, kg, Priority: STAT, Start date: 06/03/15 17:56:00, Stop date: 06/03/15 17:56:00 Saline No Notes: [facility] Flush 0.9% 2-10 (Same as: l 22:55: BD [place] Posiflush) Insulin Yes See Memoria Aspart 100 -22 Special l unit/ml - 15:55: Instructio He rmann (High CD) 00 ns, SUB-Q, TID-Before Meals, Check blood sugar before breakfast, lunch, and dinner, and inject correction doses: Inject 3 unit if Sugar 150-199, Inject 6 units if Sugar 200-249, Inject 9 units if Sugar 250-299, Inject 12 units if... insulin Yes 50 units, Memor ia aspart-insu 05-15 SUB-Q, l parvez aspart 15:55: BID, # 10 He rmann protamine 00 mL, 0 30 units-70 Refill(s) units/mL subcutaneou s suspension Tylenol No Notes: Max Gordon sarah 05-15 acetaminop l 15:46: hen = Perez 00 4000mg/day (4 gm/day). (Same as: Tylenol) Aspirin 81 No Notes: Memor ia MG Enteric 05-15 Take with l Coated 15:00: food. Perez Tablet 00 clopidogrel No Notes: Gordon sarah 05-15 (Same As: l 15:00: Plavix) [place] NovoLOG Mix No Notes: Gordon sarah 70/30 05-14 (Same as: l FlexPen 23:00: Novolog-Mi Herm megha 00 x 70/30) WASTE: F/P - Black; E - Municipal Trash Bin Nitroglycer No Notes: Gordon sarah in 05-14 (Same l 15:14: as:Nitroqu [place] 00 ick, Nitrostat) "Do Not Crush" Sublingual tablet lisinopril Yes 40 mg = 2 Me moria 20 mg oral -21 tab, PO, l tablet 15:08: Daily, # Perez 00 60 tab, 3 Refill(s) 24 HR Yes 120 mg = 2 Memori a Isosorbide -21 tab, PO, l Mononitrate 15:08: QAM, # 60 H ermann 60 MG 00 tab, 3 Extended Refill(s) Release Tablet [Imdur] clopidogrel Yes 75 mg = 1 M emoria 75 mg oral 1-21 tab, PO, l tablet 15:08: Daily, # Perez 00 30 tab, 3 Refill(s) Lisinopril No 20 mg, Memor ia 05-14 Route: PO, l 15:00: Drug form: [place] 00 TAB, Daily, Dosing Weight 97.727, kg, Start date: 05/14/15 9:00:00, Duration: 30 day, Stop date: 06/12/15 9:00:00 Isosorbide No Notes: Memor ia - (Same l 15:00: as:Imdur) "Do Not Crush" Take on empty stomach/ full glass of water. Do not crush NovoLIN No Route: Memoria 30 05-14 SUB-Q, l 15:00: BID, Dosing Weight 97.727, kg, Start date: 05/14/15 9:00:00, Duration: 30 day, Stop date: 06/12/15 17:00:00 Hydrochloro No 1 tab, Gordon sarah thiazide 25 05-14 Route: PO, l MG / 15:00: Drug Form: [place] Lisinopril 00 TAB, 20 MG Oral Dosing Tablet Weight 97.727, kg, Daily, Start date: 05/14/15 9:00:00, Duration: 30 day, Stop date: 06/12/15 9:00:00 Prozac No Notes: Memoria 05-14 (Same as: l 15:00: Prozac, Perez 00 Sarafem) NovoLOG Mix No Notes: Gordon sarah 70/30 - Roll in l FlexPen 15:00: palms of Martell n 00 hands gently; Do not shake vigorously . (Same as: NovoLOG Mix) "single patient use only" WASTE: F/P - Black; E - Municipal Trash Bin Stable for 14 days at room temperatur e Expires in days from ____Date Saline No Notes: Memoria Flush 0.9% - (Same as: l 15:00: BD Perez 00 Posiflush) Aspirin 81 No 81 mg, Memor ia MG Enteric 05-14 Route: PO, l Coated 15:00: Drug form: Lorna nn Tablet 00 ECTAB, Daily, Dosing Weight 97.727, kg, Start date: 05/14/15 9:00:00, Duration: 30 day, Stop date: 06/12/15 9:00:00 Prinivil No Notes: Memoria -21 (Same as: l 15:00: Prinivil, [place] 00 Zestril) hydrochloro No Notes: Gordon sarah thiazide 25 05-14 (Same as: l mg oral 15:00: Hydrodiuri Herm megha tablet 00 l) With food. NovoLOG No 30 unit, Memori a PenFill 05-14 Route: l 13:30: SUB-Q, Perez Drug form: SOLN, TID-Before Meals, Dosing Weight 97.727, kg, Start date: 05/14/15 7:30:00, Duration: 30 day, Stop date: 06/12/15 16:30:00 Saline No Notes: Memoria Flush 0.9% 05-14 (Same as: l 03:23: BD [place] Posiflush) Nitroglycer No 0.4 mg, Mem oria in 05-14 Route: SL, l 03:23: Drug form: Perez 00 TAB, Q5Min, Dosing Weight 97.727, kg, PRN Chest Pain, Start date: 05/13/15 21:23:00, Duration: 3 doses or times, Stop date: Limited # of times Insulin, No Notes: Memoria Aspart, 05-14 Roll in l Human 03:23: palms of Perez 00 hands gently; Do not shake vigorously . (Same as: NovoLOG) "single patient use only" WASTE: F/P - Black; E - Municipal Trash Bin Stable for 28 days at room temperatur e. Expires in days from ____Date Glucagon No 1 mg, Memoria 05-14 Route: IM, l 03:23: Drug form: [place] 00 PDR/INJ, PRN, Dosing Weight 97.727, kg, PRN Blood Glucose Results, Start date: 05/13/15 21:23:00, Duration: 30 day, Stop date: 06/12/15 21:22:00 Dextrose No 25 gm, 50 Gordon sarah 50% Syringe 1-21 mL, Route: l 03:23: IVP, Drug Perez 00 Form: INJ, Dosing Weight 97.727, kg, PRN, PRN Blood Glucose Results, Start date: 05/13/15 21:23:00, Duration: 30 day, Stop date: 06/12/15 21:22:00 24 HR No Notes: Memoria Metoprolol 05-14 (Same as: l Tartrate 25 03:00: Toprol XL) Perez MG Extended 00 Do Not Release Crush Tablet [Toprol] insulin No Notes: Memoria detemir 05-14 Same as l 03:00: Levemir Do Perez not hold insulin without contacting prescriber WASTE: F/P - Black; E - Municipal Trash Bin "single patient use only" Lipitor No Notes: Memoria 05-14 (Same as: l 03:00: Lipitor) [place] 00 Aspirin 81 No Notes: Do Me moria MG Enteric 05-14 not crush l Coated 03:00: or chew. Perez Tablet 00 (Same As: Ecotrin) NS 1,000 mL No 1,000 mL, M emoria 05-14 Rate: 100 l 00:22: ml/hr, Perez 00 Infuse over: 10 hr, Route: IV, Dosing Weight 97.727 kg, Total Volume: 1,000, Start date: 05/13/15 18:22:00, Duration: 30 day, Stop date: 06/12/15 18:21:00 Insulin, No Notes: Memoria Aspart, - Roll in l Human 00:14: palms of Perez 00 hands gently; Do not shake vigorously . (Same as: NovoLOG) "single patient use only" WASTE: F/P - Black; E - Municipal Trash Bin Stable for 28 days at room temperatur e. Expires in days from ____Date Dextrose No 12.5 gm, Memor ia 50% Syringe 1-21 25 mL, l 00:14: Route: Perez 00 IVP, Drug Form: INJ, Dosing Weight 97.727, kg, PRN, PRN Blood Glucose Results, Start date: 05/13/15 18:14:00, Duration: 30 day, Stop date: 06/12/15 18:13:00 Glucagon No 1 mg, Memoria 1-21 Route: IM, l 00:14: Drug form: PDR/INJ, PRN, Dosing Weight 97.727, kg, PRN Blood Glucose Results, Start date: 05/13/15 18:14:00, Duration: 30 day, Stop date: 06/12/15 18:13:00 Nitroglycer No Notes: Gordon sarah in 0.4 MG 1-21 (Same l Sublingual 00:12: as:Nitroqu H ermann Tablet ick, Nitrostat) "Do Not Crush" Sublingual tablet Insulin No 10 unit, Memori a regular 1-20 Route: l 21:54: IVP, ONCE, Dosing Weight 97.727, kg, Priority: STAT, Start date: 05/13/15 15:54:00, Stop date: 05/13/15 15:54:00 Saline No Notes: Memoria Flush 0.9% -20 (Same as: l 19:34: BD Posiflush) isosorbide Yes 30 mg = 1 Me moria mononitrate 1-10 tab, PO, l 30 mg oral 15:17: Daily, # Her burk tablet, 00 30 tab, 0 extended Refill(s) release lisinopril Yes 20 mg = 1 Me moria 20 mg oral 1-10 tab, PO, l tablet 15:17: Daily, # [place] 00 30 tab, 0 Refill(s) metoprolol Yes 25 mg = 1 Me moria 25 mg oral 1-10 tab, PO, l tablet, 15:17: Daily, # Martell n extended 00 30 tab, 0 release Refill(s) gemfibrozil Yes 600 mg = 1 Memoria 600 mg oral 1-10 tab, PO, l tablet 15:17: BID, # 60 Martell n 00 tab, 0 Refill(s) Famotidine Yes 20 mg = 1 Me moria 20 MG Oral 1-10 tab, PO, l Tablet 15:17: Q12H, # 60 Lorna nn [Pepcid] 00 tab, 0 Refill(s) 3 ML Yes 30 unit, Memoria insulin 1-10 SUB-Q, l detemir 100 15:17: Bedtime, # Perez UNT/ML 00 10 mL, 0 Prefilled Refill(s) Syringe [Levemir] atorvastati Yes 80 mg = 1 M emoria n 80 MG 1-10 tab, PO, l Oral Tablet 15:17: Bedtime, # Perez [Lipitor] 00 30 tab, 0 Refill(s) Imdur No Notes: Memoria - (Same l 15:00: as:Imdur) [place] 00 "Do Not Crush" Take on empty stomach/ full glass of water. Do not crush Levemir No Notes: Memoria - Same as l 03:00: Levemir Do [place] 00 not hold insulin without contacting prescriber "single patient use only" Imdur No Notes: Memoria 05-02 (Same l 19:23: as:Imdur) [place] 00 "Do Not Crush" Take on empty stomach/ full glass of water. Do not crush Aspirin 81 No Notes: Do Me moria MG Enteric 05-02 not crush l Coated 15:00: or chew. [place] Tablet 00 (Same As: Ecotrin) Hydrochloro No 1 tab, Gordon sarah thiazide 25 05-02 Route: PO, l MG / 15:00: Drug Form: Perez Lisinopril 00 TAB, 20 MG Oral Dosing Tablet Weight 99.545, kg, Daily, Start date: 05/02/15 9:00:00, Duration: 30 day, Stop date: 05/31/15 9:00:00 Gemfibrozil No Notes: Gordon sarah 05-02 (Same as: l 15:00: Lopid) [place] 00 Prinivil No Notes: Memoria 05-02 (Same as: l 15:00: Prinivil, [place] 00 Zestril) hydrochloro No Notes: Gordon sarah thiazide 25 05-02 (Same as: l mg oral 15:00: Hydrodiuri Herm megha tablet 00 l) With food. isosorbide No Notes: Memor ia mononitrate 05-02 (Same l extended 15:00: as:Imdur) Herm megha release 00 "Do Not Crush" Take on empty stomach/ full glass of water. Do not crush remove No Route: Memoria patch 05-02 TOP, Drug l 06:00: form: [place] MISC, Q24H, Start date: 05/02/15 0:00:00, Duration: 30 day, Stop date: 05/31/15 0:00:00 Acetaminoph No Notes: Gordon sarah en 325 MG / 05-02 (Same as: l Hydrocodone 04:05: [place] Lorna nn Bitartrate 00 325/5) Do 5 MG Oral not exceed Tablet 4gm/day of [[place] acetaminop 5/325] hen. Saline No Notes: Memoria Flush 0.9% 05-02 Same as: l 03:00: BD Perez 00 Posiflush Sterile Zyprexa No Notes: Memoria 05-02 (Same as: l 03:00: ZyPREXA ) [place] 00 Lipitor No Notes: Memoria 05-02 (Same as: l 03:00: Lipitor) [place] 00 Levemir No Notes: Memoria 05-02 Same as l 03:00: Levemir Do not hold insulin without contacting prescriber "single patient use only" Metformin No Notes: Memori a hydrochlori 05-01 (Same as: l de 1000 MG 23:00: Glucophage H ermann Oral Tablet 00 ) Take with meal Nitroglycer No Notes: 1 Me moria in 0.02 1-08 gram is l MG/MG 23:00: approximat Martell n Topical 00 damien 1 inch Ointment of nitroglyce rin ointment (20 mg NTG per gram) (Same as:Nitro-B id) Nitroglycer No 0.4 mg, 1 M emoria in 0.4 MG 05-01 tab, l Sublingual 22:56: Route: SL, H ermann Tablet 00 Drug form: TAB, Q5Min, Dosing Weight 99.545, kg, PRN Chest Pain, Start date: 05/01/15 16:56:00, Duration: 30 day, Stop date: 05/31/15 16:55:00 Famotidine No Notes: Memor ia 20 MG Oral 05-01 (Same as: l Tablet 22:53: Pepcid) [place] [Pepcid] 00 metoprolol No Notes: Memor ia extended 05-01 (Same as: l release 22:53: Toprol XL) Herm megha Do Not Crush Nitroglycer Yes 0.4 mg = 1 Memoria in 0.4 MG 05-01 tab, SL, l Sublingual 22:21: Q5Min, PRN H ermann Tablet 00 Chest pain, Give up to 3 doses Atropine No 0.5 mg, 5 Gordon sarah 05-01 mL, Route: l 21:53: IV, Drug form: INJ, PRN, Dosing Weight 99.545, kg, PRN Bradycardi a, symptomati c bradycardi a less than 40 bpm, Start date: 05/01/15 15:53:00, Stop date: 05/31/15 15:52:00 Saline No 10 ml, Memoria Flush 0.9% 05-01 Route: l 21:46: IVP, Drug Form: INJ, Dosing Weight 99.545, kg, PRN, PRN Line Flush, Start date: 05/01/15 15:46:00, Duration: 30 day, Stop date: 05/31/15 15:45:00 Nitroglycer No Notes: Gordon sarah in 05-01 (Same l 21:46: as:Nitroqu ick, Nitrostat) "Do Not Crush" Sublingual tablet Ondansetron No Notes: Gordon sarah 05-01 (Same as: l 21:46: Zofran) Perez 00 NS 1,000 mL 0 No 1,000 mL, Sammy grayson 05-01 Rate: 125 l 21:46: ml/hr, [place] 00 Infuse over: 8 hr, Route: IV, Dosing Weight 99.545 kg, Total Volume: 1,000, Start date: 05/01/15 15:46:00, Duration: 30 day, Stop date: 05/31/15 15:45:00 Insulin 2015-0 No 15 unit, Memori a regular 05-01 Route: l 20:48: SUB-Q, Perze 00 ONCE, Dosing Weight 99.545, kg, Start date: 05/01/15 14:48:00, Stop date: 05/01/15 14:48:00 Sodium 2015- No 1,000 mL, Memori a Chloride 05-01 1,000 l 0.154 19:51: ml/hr, [place] MEQ/ML 00 Infuse Injectable Over: 1 Solution hr, Route: IV, ONCE, Priority: STAT, Dosing Weight 99.545 kg, Start date: 05/01/15 13:51:00, Duration: 1 doses or times, Stop date: 05/01/15 13:51:00 Insulin No 10 unit, Memori a regular 05-01 Route: l 19:35: SUB-Q, [place] 00 ONCE, Dosing Weight 99.545, kg, Start date: 05/01/15 13:35:00, Stop date: 05/01/15 13:35:00 Enoxaparin No Notes: Memor ia 05-01 (Same as: l 19:00: Lovenox) Insulin, No Notes: Memoria Aspart, 05-01 Roll in l Human 18:21: palms of hands gently; Do not shake vigorously . (Same as: NovoLOG) "single patient use only" Stable for 28 days at room temperatur e. Expires in days from ____Date Glucagon 0 No 1 mg, Memoria 05-01 Route: IM, l 18:21: Drug form: [place] 00 PDR/INJ, PRN, Dosing Weight 99.545, kg, PRN Blood Glucose Results, Start date: 05/01/15 12:21:00, Duration: 30 day, Stop date: 05/31/15 12:20:00 Dextrose 2015- No 12.5 gm, Memor ia 50% Syringe 08 25 mL, l 18:21: Route: [place] 00 IVP, Drug Form: INJ, Dosing Weight 99.545, kg, PRN, PRN Blood Glucose Results, Start date: 05/01/15 12:21:00, Duration: 30 day, Stop date: 05/31/15 12:20:00 Aspirin No 324 mg, Memoria 1-08 Route: PO, l 17:18: ONCE, Perez Dosing Weight 99.545, kg, Priority: STAT, Start date: 05/01/15 11:18:00, Stop date: 05/01/15 11:18:00 Sodium 2015- No 1,000 mL, Memori a Chloride -08 Infuse l 0.154 17:18: Over: 1 [place] MEQ/ML 00 hr, Route: Injectable IV, ONCE, Solution Priority: STAT, Dosing Weight 99.545 kg, Start date: 05/01/15 11:18:00, Duration: 1 doses or times, Stop date: 05/01/15 11:18:00 Saline No Notes: Memoria Flush 0.9% -08 (Same as: l 17:18: BD Perez Posiflush) Nitroglycer 2014-04 Yes 0.5 inch, M emoria in 0.02 2-18 TOP, TID, l MG/MG 17:20: # 3 gm, 0 [place] Topical 00 Refill(s) Ointment Hydrochloro 2014-04 No 1 tab, Gordon sarah thiazide 25 2-18 Route: PO, l MG / 15:00: Drug Form: Perez Lisinopril 00 TAB, 20 MG Oral Dosing Tablet Weight 99.545, kg, Daily, Start date: 04/10/15 9:00:00, Duration: 30 day, Stop date: 05/09/15 9:00:00 Furosemide 2014-04 No Notes: Memor ia 20 MG Oral 2-18 (Same as: l Tablet 15:00: Lasix) [place] May cause GI upset. Give with food or milk. Aspirin 81 2014-04 No Notes: Do Me moria MG Enteric 2-18 not crush l Coated 15:00: or chew. Perez Tablet 00 (Same As: Ecotrin) Prinivil 2014-04 No Notes: Memoria 2-18 (Same as: l 15:00: Prinivil, Perez 00 Zestril) hydrochloro 2014-04 No Notes: Gordon sarah thiazide 25 2-18 (Same as: l mg oral 15:00: Hydrodiuri Herm megha tablet 00 l) With food. Verapamil 2014-04 No Notes: Memori a 2-18 (Same As: l 03:00: Calan, Perez 00 Isoptin) "Avoid grapefruit and grapefruit juice" Zyprexa 2014-04 No Notes: Memoria 2-18 (Same as: l 03:00: ZyPREXA ) Perez insulin 2014-04 No Notes: Memoria detemir 2-18 Same as l 03:00: Levemir Do [place] 00 not hold insulin without contacting prescriber "single patient use only" Prozac 2014-04 No Notes: Memoria 2-18 (Same as: l 03:00: Prozac, [place] 00 Sarafem) Saline 2014-04 No Notes: Memoria Flush 0.9% 2-18 (Same as: l 03:00: BD Perez 00 Posiflush) Lipitor 2014-04 No Notes: Memoria 2-18 (Same as: l 03:00: Lipitor) Perez 00 Enoxaparin 2014-04 No Notes: Memor ia 2-17 (Same as: l 23:00: Lovenox) Perez NovoLOG 2014-04 No Notes: Memoria PenFill 2-17 Roll in l 22:30: palms of Perez 00 hands gently; Do not shake vigorously . (Same as: NovoLOG) "single patient use only" Stable for 28 days at room temperatur e. Expires in days from ____Date Tylenol 2014-04 No Notes: Do Memor ia 2-17 not exceed l 21:35: 4 gm/day. Perez 00 (Same as: Tylenol) Methocarbam 2014-04 No Notes: Gordon sarah ol 2-17 (Same l 21:25: as:Robaxin ) Insulin, 2014-04 No Notes: Memoria Aspart, 2-17 Roll in l Human 21:24: palms of hands gently; Do not shake vigorously . (Same as: NovoLOG) "single patient use only" Stable for 28 days at room temperatur e. Expires in days from ____Date Glucagon 2014-04 No 1 mg, Memoria 2-17 Route: IM, l 21:24: Drug form: [place] 00 PDR/INJ, PRN, Dosing Weight 99.545, kg, PRN Blood Glucose Results, Start date: 04/09/15 15:24:00, Duration: 30 day, Stop date: 05/09/15 15:23:00 Dextrose 2014-04 No 12.5 gm, Memor ia 50% Syringe 2-17 25 mL, l 21:24: Route: IVP, Drug Form: INJ, Dosing Weight 99.545, kg, PRN, PRN Blood Glucose Results, Start date: 04/09/15 15:24:00, Duration: 30 day, Stop date: 05/09/15 15:23:00 Nitroglycer 2014-04 No Notes: 1 Me moria in 0.02 2-17 gram is l MG/MG 18:00: approximat Martell n Topical 00 damien 1 inch Ointment of nitroglyce rin ointment (20 mg NTG per gram) (Same as:Nitro-B id) Saline 2014-04 No Notes: Memoria Flush 0.9% -17 (Same as: l 16:23: BD Posiflush) Ondansetron 2014-04 No Notes: Gordon sarah 2-17 (Same as: l 16:23: Zofran) Aspirin 325 2014-04 No 325 mg, Mem oria MG Oral -17 Route: PO, l Tablet 16:23: Drug form: Lorna nn TAB, ONCE, Dosing Weight 99.545, kg, Start date: 04/09/15 10:23:00, Stop date: 04/09/15 10:23:00 Nitroglycer 2014-04 No Notes: Gordon sarah in 2-17 (Same l 16:23: as:Nitroqu [place] 00 ick, Nitrostat) "Do Not Crush" Sublingual tablet Sodium 2014-04 No 1,000 mL, Memori a Chloride 06-10 Rate: 50 l 0.154 16:23: ml/hr, [place] MEQ/ML 00 Infuse Injectable over: 20 Solution hr, Route: IV, Dosing Weight 99.545 kg, Total Volume: 1,000, Start date: 04/09/15 10:23:00, Duration: 30 day, Stop date: 05/09/15 10:22:00 Insulin 2014-04 No 6 unit, Memoria regular 06-10 Route: IV, l 15:56: ONCE, Dosing Weight 99.545, kg, Priority: STAT, Start date: 04/09/15 9:56:00, Stop date: 04/09/15 9:56:00 Morphine 2014-04 No 2 mg, Memoria 06-10 Route: l 15:55: IVP, Drug form: INJ, ONCE, Dosing Weight 99.545, kg, Priority: STAT, Start date: 04/09/15 9:55:00, Stop date: 04/09/15 9:55:00 Insulin 2014-04 No 10 unit, Memori a regular 06-10 Route: l 15:29: IVP, ONCE, Dosing Weight 99.545, kg, Priority: STAT, Start date: 04/09/15 9:29:00, Stop date: 04/09/15 9:29:00 Zofran 2014-04 No 4 mg, Memoria 17 Route: l 14:34: IVP, Drug form: INJ, ONCE, Dosing Weight 99.545, kg, Priority: STAT, Start date: 04/09/15 8:34:00, Stop date: 04/09/15 8:34:00 Nitroglycer 2014-04 No Notes: 1 Me moria in 0.02 2-17 gram is l MG/MG 14:11: approximat Martell n Topical 00 damien 1 inch Ointment of nitroglyce rin ointment (20 mg NTG per gram) (Same as:Nitro-B id) Aspirin 2014-04 No Notes: Memoria 2-17 Take with l 14:11: food. Perez Saline 2014-04 No Notes: Memoria Flush 0.9% 2-17 (Same as: l 14:11: BD Perez Posiflush) Sodium 2014-04 No 500 mL, Memoria Chloride 05-14 500 ml/hr, l 0.154 20:50: Infuse Perez MEQ/ML 00 Over: 1 Injectable Hour, Solution Route: IV, ONCE, Priority: STAT, Dosing Weight 99.545 kg, Start date: 03/14/15 14:50:00, Duration: 1 doses or times, Stop date: 03/14/15 14:50:00 Insulin 2014-04 No 10 unit, Memori a regular 05-14 Route: l 20:49: IVP, ONCE, [place] Dosing Weight 99.545, kg, Priority: STAT, Start date: 03/14/15 14:49:00, Stop date: 03/14/15 14:49:00 200 ACTUAT 2014-04 Yes 2 puff, Gordon sarah Albuterol 05-14 INHALATION l 0.09 20:47: , QID, PRN Perez MG/ACTUAT for Metered wheezing, Dose # 75 gm, 0 Inhaler Refill(s) tramadol 2014-04 Yes 50 mg = 1 Gordon sarah hydrochlori 05-14 tab, PO, l de 50 MG 20:47: BID, X 15 Herm megha Oral Tablet 00 day, # 30 tab, 0 Refill(s) Levofloxaci 2014-04 Yes 750 mg = 1 Memoria n 750 MG 05-14 tab, PO, l Oral Tablet 20:45: Daily, X 5 [place] [Levaquin] 00 day, # 5 tab, 0 Refill(s) Levaquin 2014-04 No 750 mg, Memori a 05-14 Route: l 20:14: IVPB, Drug Perez form: SOLN, ONCE, Dosing Weight 99.545, kg, Start date: 03/14/15 14:14:00, Stop date: 03/14/15 14:14:00 Motrin 2014-04 No 600 mg, Memoria 05-14 Route: PO, l 19:55: Drug form: [place] 00 TAB, ONCE, Dosing Weight 99.545, kg, Priority: STAT, Start date: 03/14/15 13:55:00, Stop date: 03/14/15 13:55:00 Acetaminoph 2014-04 No 1,000 mg, M renuka en 05-14 Route: PO, l 18:25: ONCE, [place] 00 Dosing Weight 99.545, kg, Start date: 03/14/15 12:25:00, Stop date: 03/14/15 12:25:00 Dextrose 2014-04 No 25 gm, 50 Gordon sarah 50% Syringe 1-21 mL, Route: l 18:22: IVP, Drug [place] 00 Form: INJ, Dosing Weight 99.545, kg, PRN, PRN Blood Glucose Results, Start date: 03/14/15 12:22:00, Duration: 30 day, Stop date: 04/13/15 12:21:00 Glucagon 2014-04 No 1 mg, Memoria 05-14 Route: IM, l 18:22: Drug form: [place] 00 PDR/INJ, PRN, Dosing Weight 99.545, kg, PRN Blood Glucose Results, Start date: 03/14/15 12:22:00, Duration: 30 day, Stop date: 04/13/15 12:21:00 Ondansetron 2014-04 No 4 mg, Memor ia 05-14 Route: l 18:22: IVP, ONCE, Dosing Weight 99.545, kg, Priority: STAT, Start date: 03/14/15 12:22:00, Stop date: 03/14/15 12:22:00 Insulin 2014-04 No 9.9545 Memoria regular 05-14 unit, l 18:22: Route: IV, Perez 00 ONCE, Dosing Weight 99.545, kg, Loading Dose, Priority: STAT, Start date: 03/14/15 12:22:00, Stop date: 03/14/15 12:22:00 Sodium 2014-04 No 1,000 mL, Memori a Chloride 05-14 1,000 l 0.154 18:22: ml/hr, Perez MEQ/ML 00 Infuse Injectable Over: 1 Solution hr, Route: IV, ONCE, Priority: STAT, Dosing Weight 99.545 kg, Start date: 03/14/15 12:22:00, Duration: 1 doses or times, Stop date: 03/14/15 12:22:00 Saline 2014-04 No Notes: Memoria Flush 0.9% 1-21 (Same as: l 18:22: BD [place] Posiflush) Topamax No Notes: Memoria 12-21 (Same As: l 02:00: Topamax) [place] "Do Not Crush" TriCor No Notes: Memoria 12-20 (Same as: l 22:00: Tricor) [place] Fenofibrate No 160 mg, 1 M emoria 160 MG Oral 12-20 tab, l Tablet 22:00: Route: PO, Lorna nn 00 Drug form: TAB, Dinner, Dosing Weight 102.273, kg, Start date: 12/20/14 17:00:00, Duration: 30 day, Stop date: 01/18/15 17:00:00 Tylenol No Notes: Do Memor ia 12-20 not exceed l 14:15: 4 gm/day. [place] 00 (Same as: Tylenol) Prinivil No Notes: Memoria 12-19 (Same as: l 14:00: Prinivil, [place] Zestril) hydrochloro No Notes: Gordon sarah thiazide 25 12-19 (Same as: l mg oral 14:00: Hydrodiuri Herm megha tablet 00 l) With food. Furosemide No Notes: Memor ia 20 MG Oral 12-19 (Same as: l Tablet 14:00: Lasix) [place] 00 May cause GI upset. Give with food or milk. Hydrochloro No 1 tab, Gordon sarah thiazide 25 12-19 Route: PO, l MG / 14:00: Drug Form: [place] Lisinopril 00 TAB, 20 MG Oral Dosing Tablet Weight 104.545, kg, Daily, Start date: 12/19/14 9:00:00, Duration: 30 day, Stop date: 01/17/15 9:00:00 Aspirin 81 No Notes: Do Me moria MG Enteric 12-19 not crush l Coated 14:00: or chew. Perez Tablet 00 (Same As: Ecotrin) Aspirin 325 No 325 mg, Mem oria MG Oral 12-19 Route: PO, l Tablet 14:00: Drug form: Lorna nn 00 TAB, Daily, Dosing Weight 104.545, kg, Start date: 12/19/14 9:00:00, Duration: 30 day, Stop date: 01/17/15 9:00:00 Zyprexa No Notes: Memoria - (Same as: l 02:00: ZyPREXA ) Perez 00 insulin No Notes: Memoria detemir 12-19 Same as l 02:00: Levemir Do not hold insulin without contacting prescriber "single patient use only" Prozac No Notes: Memoria 8 (Same as: l 02:00: Prozac, Sarafem) Lipitor No Notes: Memoria 12-19 (Same as: l 02:00: Lipitor) Saline No Notes: Memoria Flush 0.9% 12-19 (Same as: l 02:00: BD Posiflush) Verapamil No Notes: Memori a 12-18 (Same As: l 22:00: CalMaureen davalos Isoptin) "Avoid grapefruit and grapefruit juice" Metformin No Notes: Memori a hydrochlori 12-18 (Same as: l de 1000 MG 22:00: Glucophage H erm Oral Tablet ) Take with meal atropine No 0.5 mg, 5 Gordon sarah 8-27 mL, Route: l 21:49: IVP, Drug form: INJ, PRN, PRN Bradycardi a, Start date: 12/18/14 16:49:00, Duration: 30 day, Stop date: 01/17/15 16:48:00 NovoLOG No Notes: Memoria PenFill - Roll in l 21:30: palms of [place] hands gently; Do not shake vigorously . (Same as: NovoLOG) "single patient use only" Stable for 28 days at room temperatur e. Expires in days from ____Date Sumatriptan No Notes: Gordon sarah 50 MG Oral 12-18 (Same As: l Tablet 21:05: Imitrex) [Imitrex] 00 Methocarbam No Notes: Gordon sarah ol 12-18 (Same l 21:04: as:Robaxin ) Saline No Notes: Memoria Flush 0.9% 12-18 (Same as: l 19:49: BD Posiflush) Nitroglycer No Notes: Gordon sarah in 12-18 (Same l 19:49: as:Nitroqu ick, Nitrostat) "Do Not Crush" Sublingual tablet Insulin, No Notes: Memoria Aspart, 12-18 Roll in l Human 19:48: palms of hands gently; Do not shake vigorously . (Same as: NovoLOG) "single patient use only" Stable for 28 days at room temperatur e. Expires in days from ____Date Dextrose No 12.5 gm, Memor ia 50% Syringe 12-18 25 mL, l 19:48: Route: IVP, Drug Form: INJ, Dosing Weight 104.545, kg, PRN, PRN Blood Glucose Results, Start date: 12/18/14 14:48:00, Duration: 30 day, Stop date: 01/17/15 14:47:00 Glucagon No 1 mg, Memoria 12-18 Route: IM, l 19:48: Drug form: PDR/INJ, PRN, Dosing Weight 104.545, kg, PRN Blood Glucose Results, Start date: 12/18/14 14:48:00, Duration: 30 day, Stop date: 01/17/15 14:47:00 Sumatriptan Yes Special Mem oria 50 MG Oral - Instructio l Tablet 19:13: ns: august [Imitrex] repeat one time after 2 hours verapamil Yes 120 mg = 1 Me moria 120 mg oral 8-27 tab, PO, l tablet 19:13: BID, 0 Perez 00 Refill(s) atorvastati Yes 80 mg = 1 M emoria n 80 MG 8-27 tab, PO, l Oral Tablet 19:12: Bedtime, 0 [Lipitor] 00 Refill(s) Furosemide Yes 20 mg = 1 Me moria 20 MG Oral 12-18 tab, PO, l Tablet 19:11: Daily, 0 Refill(s) Tylenol No 650 mg, Memoria 12-18 Route: PO, l 18:48: ONCE, Dosing Weight 104.545, kg, Start date: 12/18/14 13:48:00, Stop date: 12/18/14 13:48:00 Insulin No 6 unit, Memoria regular 12-18 Route: IV, l 18:35: ONCE, Dosing Weight 104.545, kg, Start date: 12/18/14 13:35:00, Stop date: 12/18/14 13:35:00 Insulin, No Notes: Memoria Aspart, 12-18 Roll in l Human 16:00: palms of Perez 00 hands gently; Do not shake vigorously . (Same as: NovoLOG) "single patient use only" Stable for 28 days at room temperatur e. Expires in days from ____Date Insulin, No Notes: Memoria Aspart, 12-18 Roll in l Human 15:59: palms of Perez 00 hands gently; Do not shake vigorously . (Same as: NovoLOG) "single patient use only" Stable for 28 days at room temperatur e. Expires in days from ____Date Sodium No 500 mL, Memoria Chloride 12-18 500 ml/hr, l 0.154 14:51: Infuse [place] MEQ/ML 00 Over: 1 Injectable hr, Route: Solution IV, ONCE, Priority: STAT, Dosing Weight 104.545 kg, Start date: 12/18/14 9:51:00, Duration: 1 doses or times, Stop date: 12/18/14 9:51:00 Aspirin No Notes: Memoria 12-18 Take with l 14:08: food. Nitroglycer No Notes: 1 Me moria in 0.02 12-18 gram is l MG/MG 14:08: approximat Martell n Topical 00 damien 1 inch Ointment of nitroglyce rin ointment (20 mg NTG per gram) (Same as:Nitro-B id) Saline No Notes: Memoria Flush 0.9% 12-18 Same as: l 14:08: BD [place] Posiflush Sterile Insulin No Notes: Memoria regular 12-18 (Same as: l 14:07: Humulin R Perez and NovoLIN R) (Do not shake) Magnesium No Notes: Memori a Oxide 08-04 (Same as: l 17:40: Mag-Ox [place] 00 400) Magnesium oxide 945ts=065t g elemental magnesium Dose=____m g magnesium oxide (___mg elemental magnesium) Magnesium No 2 gm, 50 Gordon sarah Sulfate -13 mL, Route: l 17:40: IVPB, Drug form: INJ, ONCE, Dosing Weight 106.364, kg, Total dose = 2 gm, Priority: STAT, Start date: 08/04/14 12:40:00, Duration: 1 doses or times, Stop date: 08/04/14 12:40:00 Aspirin 81 Yes 81 mg = 1 Me moria MG Enteric 08-04 tab, PO, l Coated 17:32: Daily, 0 Perez Tablet 00 Refill(s) Nitroglycer No Notes: Gordon sarah in 08-04 (Same l 17:31: as:Nitroqu ick, Nitrostat) "Do Not Crush" Sublingual tablet clopidogrel No Notes: ( Me moria 08-03 Same as: l 19:18: Plavix) Perez 00 Zocor No Notes: Memoria 12 (Same as: l 02:00: Zocor) Perez 00 Zyprexa No Notes: Memoria 12 (Same as: l 02:00: ZyPREXA ) Perez 00 Prozac No Notes: Memoria 12 (Same as: l 02:00: Prozac, [place] 00 Sarafem) Metformin No Notes: Memori a hydrochlori 11 (Same as: l de 1000 MG 14:00: Glucophage H ermann Oral Tablet ) Take with meal Hydrochloro No 1 tab, Gordon sarah thiazide 25 11 Route: PO, l MG / 14:00: Drug Form: [place] Lisinopril 00 TAB, 20 MG Oral Dosing Tablet Weight 106.364, kg, Daily, Start date: 08/02/14 9:00:00, Duration: 30 day, Stop date: 08/31/14 9:00:00 Furosemide No 40 mg, 1 Mem oria 40 MG Oral 4-11 tab, l Tablet 14:00: Route: PO, Lorna nn [Lasix] 00 Drug form: TAB, Daily, Dosing Weight 106.364, kg, Start date: 08/02/14 9:00:00, Duration: 30 day, Stop date: 08/31/14 9:00:00 Aspirin 81 No Notes: Do Me moria MG Enteric 08-02 not crush l Coated 14:00: or chew. [place] Tablet (Same As: Ecotrin) NovoLOG No Notes: Memoria PenFill - Roll in l 12:30: palms of [place] 00 hands gently; Do not shake vigorously . (Same as: NovoLOG) "single patient use only" Stable for 28 days at room temperatur e. Expires in days from ____Date Xopenex No Notes: SEE Gordon sarah - RT l 12:16: DOCUMENTAT [place] ION (Same as:Xopenex ) Non-Formul fifi insulin No Notes: Memoria detemir 08-02 Same as l 03:00: Levemir Do Perez not hold insulin without contacting prescriber "single patient use only" Tylenol No Notes: Do Memor ia - not exceed l 02:35: 4 gm/day. Perez (Same as: Tylenol) Methocarbam No Notes: Gordon sarah ol - (Same l 02:33: as:Robaxin [place] ) nitroglycer No Notes: Gordon sarah in 0.4 mg 08-02 (Same l sublingual 02:18: as:Nitroqu H ermann tablet 00 ick, Nitrostat) "Do Not Crush" Sublingual tablet atropine No 0.5 mg, 5 Gordon sarah 4-11 mL, Route: l 02:18: IVP, Drug [place] 00 form: INJ, PRN, PRN Bradycardi a, Start date: 08/01/14 21:18:00, Duration: 30 day, Stop date: 08/31/14 21:17:00 Saline No Notes: Memoria Flush 0.9% 4-11 (Same as: l 02:00: BD [place] Posiflush) Dextrose No 25 gm, 50 Gordon sarah 50% Syringe 4-10 mL, Route: l 23:46: IVP, Drug Perez 00 Form: INJ, Dosing Weight 106.364, kg, PRN, PRN Blood Glucose Results, Start date: 08/01/14 18:46:00, Duration: 30 day, Stop date: 08/31/14 18:45:00 Glucagon No 1 mg, Memoria 4-10 Route: IM, l 23:46: Drug form: Perez 00 PDR/INJ, PRN, Dosing Weight 106.364, kg, PRN Blood Glucose Results, Start date: 08/01/14 18:46:00, Duration: 30 day, Stop date: 08/31/14 18:45:00 Insulin, No Notes: Memoria Aspart, 4-10 Roll in l Human 23:46: palms of [place] 00 hands gently; Do not shake vigorously . (Same as: NovoLOG) "single patient use only" Stable for 28 days at room temperatur e. Expires in days from ____Date Saline No Notes: Memoria Flush 0.9% 4-10 (Same as: l 23:46: BD Perez 00 Posiflush) Nitroglycer No Notes: Gordon sarah in 4-10 (Same l 23:46: as:Nitroqu Perez 00 ick, Nitrostat) "Do Not Crush" Sublingual tablet 3 ML Yes 30 unit, Memoria insulin 4-10 SUB-Q, l detemir 100 21:23: Bedtime, 0 [place] UNT/ML 00 Refill(s) Prefilled Syringe [Levemir] Fluoxetine Yes 40 mg = 1 Me moria 40 MG Oral 4-10 cap, PO, l Capsule 21:23: Bedtime, # Maureen [place] [Prozac] 00 30 cap, 0 Refill(s) olanzapine Yes 10 mg = 1 Me moria 10 MG Oral 4-10 tab, PO, l Tablet 21:23: Bedtime, # Lorna nn [Zyprexa] 00 30 tab, 0 Refill(s) Simvastatin Yes 40 mg = 1 M emoria 40 MG Oral 4-10 tab, PO, l Tablet 21:23: Bedtime, # Lorna nn [Zocor] 00 30 tab, 0 Refill(s) 3 ML Yes 30 unit, Memoria Insulin, 4-10 SUB-Q, l Aspart, 21:22: TID-Before Maureen [place] Human 100 00 Meals, # 3 UNT/ML mL, 0 Prefilled Refill(s) Syringe [NovoLog] Metformin Yes 1,000 mg = Me moria hydrochlori 4-10 1 tab, PO, l de 1000 MG 21:22: TID, # 30 He rmann Oral Tablet 00 tab, 0 Refill(s) Methocarbam Yes 750 mg = 1 Memoria ol 750 MG 4-10 tab, PO, l Oral Tablet 21:22: Bedtime, He rmmegha [Robaxin] 00 PRN Muscle Spasms, # 42 tab, 0 Refill(s) Furosemide Yes 40 mg = 1 Me moria 40 MG Oral 4-10 tab, PO, l Tablet 21:22: Daily, # Perez [Lasix] 00 30 tab, 0 Refill(s) Tylenol No 975 mg, Memoria 4-10 Route: PO, l 21:17: Drug form: [place] 00 TAB, ONCE, Dosing Weight 106.364, kg, Priority: STAT, Start date: 08/01/14 16:17:00, Stop date: 08/01/14 16:17:00 Aspirin 81 No 324 mg, Gordon sarah MG Chewable 4-10 Route: PO, l Tablet 20:09: ONCE, [place] Dosing Weight 106.364, kg, Start date: 08/01/14 15:09:00, Stop date: 08/01/14 15:09:00 insulin Yes 34U Inject 34 [place] aspart 4-10 Units into [employer] (NOVOLOG) 00:00: the skin. of 100 UNIT/ML 00 Medicin injection e insulin Yes 10 unit, Memori a detemir 100 05-06 SUB-Q, l UNT/ML 10:40: QPM, # 10 Martell n Injectable 00 ml, 0 Solution Refill(s) [Levemir] Acetaminoph No 1 tab, Gordon sarah en 325 MG / 05-06 Route: PO, l Hydrocodone 04:40: Drug Form: [place] Bitartrate 00 TAB, 5 MG Oral Dosing Tablet Weight [[place] 99.091, 5/325] kg, ONCE, STAT, Start date: 05/05/14 22:40:00, Stop date: 05/05/14 22:40:00 Insulin, No 10 unit, Memor ia Regular, 05-06 Route: l Pork 04:37: IVP, ONCE, [place] 00 Dosing Weight 99.091, kg, Priority: STAT, Start date: 05/05/14 22:37:00, Stop date: 05/05/14 22:37:00 Sodium No 1,000 mL, Memori a Chloride 1-13 1,000 l 0.154 04:37: ml/hr, Perez MEQ/ML 00 Infuse Injectable Over: 1 Solution Hour, Route: IV, ONCE, Priority: STAT, Dosing Weight 99.091 kg, Start date: 05/05/14 22:37:00, Duration: 1 doses or times, Stop date: 05/05/14 22:37:00 Sodium 2014-0 No 1,000 mL, Memori a Chloride -13 1,000 l 0.154 03:20: ml/hr, Perez MEQ/ML 00 Infuse Injectable Over: 1 Solution Hour, Route: IV, ONCE, Priority: STAT, Dosing Weight 99.091 kg, Start date: 05/05/14 21:20:00, Duration: 1 doses or times, Stop date: 05/05/14 21:20:00 Saline 2013-04 No Notes: Memoria Flush 0.9% -14 Same as: l 03:00: BD [place] 00 Posiflush Sterile Nitroglycer 2013-04 No Notes: 1 Me moria in 0.02 1-14 gram is l MG/MG 00:00: approximat Martell n Topical 00 damien 1 inch Ointment of nitroglyce rin ointment (20 mg NTG per gram) (Same as:Nitro-B id) Enoxaparin 2013-04 No Notes: Memor ia 05-06 (Same as: l 23:00: Lovenox) Perez fluconazole 2013-04 Yes 100 mg, Mem oria 100 mg oral -13 Daily, 0 l tablet 21:57: Refill(s) Martell n 00 Insulin, 2013-04 No Notes: Memoria Aspart, 05-06 Roll in l Human 20:39: palms of hands gently; Do not shake vigorously . (Same as: NovoLOG) "single patient use only" Stable for 28 days at room temperatur e. Expires in days from ____Date Dextrose 2013-04 No 25 gm, 50 Gordon sarah 50% Syringe 1-13 mL, Route: l 20:39: IVP, Drug Form: INJ, Dosing Weight 100, kg, PRN, PRN Blood Glucose Results, Start date: 03/06/14 14:39:00, Duration: 30 day, Stop date: 04/05/14 14:38:00 Glucagon 2013-04 No 1 mg, Memoria 05-06 Route: IM, l 20:39: Drug form: PDR/INJ, PRN, Dosing Weight 100, kg, PRN Blood Glucose Results, Start date: 03/06/14 14:39:00, Duration: 30 day, Stop date: 04/05/14 14:38:00 Saline 2013-04 No Notes: Memoria Flush 0.9% 05-06 Same as: l 20:38: BD Perez 00 Posiflush Sterile Morphine 2013-04 No Notes: Memoria 05-06 (Same l 20:38: as:MORPhin e Sulfate) Nitroglycer 2013-04 No Notes: Gordon sarah in 05-06 (Same l 20:38: as:Nitroqu ick, Nitrostat) "Do Not Crush" Sublingual tablet aspirin 325 2013-04 No 325 mg, Mem oria mg tablet 05-06 Route: PO, l 20:38: Drug form: Perez 00 TAB, ONCE, Dosing Weight 100, kg, Start date: 03/06/14 14:38:00, Stop date: 03/06/14 14:38:00 Morphine 2013-04 No 2 mg, Memoria 05-06 Route: l 16:45: IVP, ONCE, Dosing Weight 100, kg, Start date: 03/06/14 10:45:00, Stop date: 03/06/14 10:45:00 Sodium 2013-04 No 500 mL, Memoria Chloride 05-06 500 ml/hr, l 0.154 14:54: Infuse Perez MEQ/ML 00 Over: 1 Injectable Hour, Solution Route: IV, ONCE, Priority: STAT, Dosing Weight 100 kg, Start date: 03/06/14 8:54:00, Duration: 1 doses or times, Stop date: 03/06/14 8:54:00 Insulin, 2013-04 No 10 unit, Memor ia Regular, 05-06 Route: IV, l Pork 14:54: ONCE, Dosing Weight 100, kg, Priority: STAT, Start date: 03/06/14 8:54:00, Stop date: 03/06/14 8:54:00 aspirin 2013-04 No 324 mg, Memoria 05-06 Route: PO, l 14:06: ONCE, Dosing Weight 100, kg, Priority: STAT, Start date: 03/06/14 8:06:00, Stop date: 03/06/14 8:06:00 Morphine 2013-04 No 2 mg, Memoria 05-06 Route: l 14:06: IVP, ONCE, Dosing Weight 100, kg, Priority: STAT, Start date: 03/06/14 8:06:00, Stop date: 03/06/14 8:06:00 Ondansetron 2013-04 No 4 mg, Memor ia 05-06 Route: l 14:06: IVP, ONCE, Dosing Weight 100, kg, Priority: STAT, Start date: 03/06/14 8:06:00, Stop date: 03/06/14 8:06:00 Nitroglycer 2013-04 No 1 inch, Mem oria in 0.02 1-13 Route: l MG/MG 14:06: TOP, [place] Topical 00 Dosing Ointment Weight 100, kg, ONCE, STAT, Start date: 03/06/14 8:06:00, Stop date: 03/06/14 8:06:00 Saline 2013-04 No Notes: Memoria Flush 0.9% 13 (Same as: l 14:06: BD Perez Posiflush) Seroquel 2013-04 No Notes: Memoria 0-15 (Same as: l 02:00: SEROquel) [place] 00 Lipitor 2013-04 No Notes: Memoria 0-15 (Same As: l 02:00: Lipitor) Perez Humulin 2013-04 No 20 unit, Memori a 70/30 0-14 Route: l 14:00: SUB-Q, Perez 00 BID, Dosing Weight 100.227, kg, Start date: 02/04/14 9:00:00, Duration: 30 day, Stop date: 03/05/14 17:00:00 gabapentin 2013-04 No Notes: Memor ia 300 MG Oral 0-14 (Same as: l Capsule 14:00: Neurontin) Herm megha Escitalopra 2013-04 No Notes: Gordon sarah m 0-14 (Same as: l 14:00: Lexapro) Perez 00 Buspirone 2013-04 No Notes: Memori a 0-14 (Same As: l 14:00: BuSpar) Perez 00 Aspirin 81 2013-04 No Notes: Do Me moria MG Enteric 0-14 not crush l Coated 14:00: or chew. [place] Tablet 00 (Same As: Ecotrin) Naprelan 2013-04 No Notes: [facility] '375' 0-14 (Same as: l 14:00: Naprosyn) Perez 00 Take with food. heparin, 2013-04 No Notes: Memoria porcine 0-14 porcine l 14:00: heparin Perez 00 Skelaxin 2013-04 No Notes: Memoria 0-14 (Same as: l 14:00: Skelaxin) Perez 00 NovoLOG Mix 2013-04 No Notes: Gordon sarah 70/30 0-14 Roll in l FlexPen 13:00: palms of Martell n 00 hands gently; Do not shake vigorously . (Same as: NovoLOG Mix) "single patient use only" Stable for 14 days at room temperatur e Expires in days from ____Date Acetaminoph 2013-04 No Notes: Do M emoria en 300 MG / 0-14 not exceed l Codeine 11:06: 4gm/day of Herm megha Phosphate 00 acetaminop 30 MG Oral hen. Tablet (Same as: Tylenol with Codeine # 3) Atropine 2013-04 No 0.4 mg, 1 Gordon sarah 0-14 mL, Route: l 03:20: IVP, Drug [place] 00 form: INJ, PRN, Dosing Weight 100.227, kg, PRN Bradycardi a, Start date: 02/03/14 22:20:00, Stop date: 03/05/14 21:19:00, HR less than 40 Nitroglycer 2013-04 No Notes: Gordon sarah in 0.4 MG 0-14 (Same l Sublingual 03:19: as:Nitroqu H ermann Tablet 00 ick, Nitrostat) "Do Not Crush" Sublingual tablet Insulin, 2013-04 No Notes: [facility]oria Aspart, 0-14 Roll in l Human 02:05: palms of [place] 00 hands gently; Do not shake vigorously . (Same as: NovoLOG) "single patient use only" Stable for 28 days at room temperatur e. Expires in days from ____Date Dextrose 2013-04 No 25 gm, 50 Gordon sarah 50% Syringe 0-14 mL, Route: l 02:05: IVP, Drug Perez 00 Form: INJ, Dosing Weight 99.545, kg, PRN, PRN Blood Glucose Results, Start date: 02/03/14 21:05:00, Duration: 30 day, Stop date: 03/05/14 20:04:00 Glucagon 2013-04 No 1 mg, Memoria 0-14 Route: IM, l 02:05: Drug form: Perez 00 PDR/INJ, PRN, Dosing Weight 99.545, kg, PRN Blood Glucose Results, Start date: 02/03/14 21:05:00, Duration: 30 day, Stop date: 03/05/14 20:04:00 Acetaminoph 2013-04 No Notes: Gordon sarah en 325 MG / 0-14 (Same as: l Hydrocodone 02:04: [place] Lorna nn Bitartrate 00 325/5) Do 5 MG Oral not exceed Tablet 4gm/day of acetaminop hen. Trazodone 2013-04 Yes 100 mg = 1 Me moria Hydrochlori 0-13 tab, PO, l de 100 MG 21:55: Bedtime Lorna nn Oral Tablet 00 fluconazole 2013-04 No 100 mg = 1 Memoria 100 mg oral 0-13 tab, PO, l tablet 21:55: Daily cyclobenzap 2013-04 Yes 10 mg = 1 M emoria rine 10 mg 0-13 tab, PO, l oral tablet 21:55: TID, as Her burk 00 needed for muscle spasm Furosemide 2013-04 Yes 20 mg = 1 Me moria 20 MG Oral 0-13 tab, PO, l Tablet 21:55: Daily carisoprodo 2013-04 No 350 mg = 1 Memoria l 350 mg 0-13 tab, PO, l oral tablet 21:55: TID, Martell n 00 Muscle Spasms predniSONE 2013-04 Yes 10 mg = 1 Me moria 10 mg oral 0-13 tab, PO, l tablet 21:54: Daily meclizine 2013-04 Yes 25 mg = 1 Mem oria 25 mg oral 0-13 tab, PO, l tablet 21:54: BID gabapentin 2013-04 Yes 300 mg = 1 M emoria 300 MG Oral 0-13 cap, PO, l Capsule 21:54: TID Acetaminoph 2013-04 Yes 1 tab, PO, Memoria en 300 MG / 0-13 Q6H, pain l Codeine 21:54: Perez Phosphate 00 30 MG Oral Tablet busPIRone 2013-04 Yes 10 mg = 1 Mem oria 10 mg oral 0-13 tab, PO, l tablet 21:53: BID Humulin 2013-04 Yes 20 unit, Memori a 70/30 0-13 SUB-Q, BID l 21:52: aspirin 325 2013-04 No Notes: Gordon sarah mg tablet 0-13 Take with l 21:38: food. Sodium 2013-04 No 1,000 mL, Memori a Chloride 0-13 1000 l 0.154 19:43: ml/hr, [place] MEQ/ML 00 Infuse Injectable Over: 1 Solution hr, Route: IV, 1,000, Drug form: INJ, ONCE, Priority: STAT, Dosing Weight 99.545 kg, Start date: 02/03/14 14:43:00, Duration: 1 doses or times, Stop date: 02/03/14 14:43:00 Saline 2013-04 No Notes: [facility] Flush 0.9% 0-13 Same as: l 19:43: BD Perez 00 Posiflush Sterile Ibuprofen 2013-04 No Notes: Memori a 0-13 (Same as: l 19:43: Motrin) [place] "Do Not Crush" Give with food. Acetaminoph Yes 1 tab, PO, Memoria en 325 MG / -18 Q6H, for l Hydrocodone 19:54: pain, # 20 Perez Bitartrate 00 tab, 0 7.5 MG Oral Refill(s) Tablet [[place] 7.5/325] Cyclobenzap Yes 10 mg, PO, Memoria rine 18 TID, l hydrochlori 19:53: Muscle Herm megha de 10 MG 00 Spasm, # Oral Tablet 30 tab, 0 [Flexeril] Refill(s) ibuprofen Yes Special Memor ia 800 mg oral 18 Instructio l tablet 19:53: ns: Take [place] 00 with food Acetaminoph No Notes: Gordon sarah en 325 MG / 18 Same as l Hydrocodone 18:25: [place] Lorna nn Bitartrate 00 325-7.5mg 7.5 MG Oral Do not Tablet exceed 4gm/day of acetaminop hen. Ketorolac No 4 days Memor ia 9-18 l 18:25: Perez 00 Orphenadrin No 60 mg, 2 Me moria e 9-18 mL, Route: l 18:25: IM, Drug Perez 00 form: INJ, ONCE, Dosing Weight 100.455, kg, Priority: STAT, Start date: 01/09/14 13:25:00, Stop date: 01/09/14 13:25:00 Physical Yes Special Memori a Therapy 8-08 Instructio l 18:53: ns: Perez 00 Evaluate and Treat 2-3 times per week for 4-6 weeks Docusate No Notes: Memoria Sodium 100 -07 (Same as: l MG Oral 22:00: Colace) Perez Capsule 00 (Do Not [Colace] Crush) Senokot No Notes: Memoria 8-07 (Same as: l 14:00: Senokot) Perez 00 Docusate No Notes: [facility]oria Sodium 100 -07 (Same as: l MG Oral 14:00: Colace) Perez Capsule 00 (Do Not [Colace] Crush) heparin No Notes: Memoria sodium, 11-28 porcine l porcine 13:00: heparin Perez 2500 UNT/ML 00 Injectable Solution Seroquel No Notes: Memoria 11-28 (Same as: l 02:00: SEROquel) Perez 00 Lipitor No Notes: Memoria 11-28 (Same As: l 02:00: Lipitor) Perez Famotidine No Notes: Memor ia 20 MG Oral 11-28 (Same as: l Tablet 02:00: Pepcid) [place] [Pepcid] 00 10 ML No 1 gm, 100 Memoria Cefazolin 11-28 mL, Route: l 100 MG/ML 01:00: IVPB, Drug He rmann Prefilled 00 form: INJ, Syringe [id number], Dosing Weight 103.636, kg, Start date: 11/27/13 20:00:00, Duration: 3 doses or times, Stop date: 11/28/13 15:00:00 magnesium No Notes: Memori a citrate 11-28 (Same as: l 00:15: Citrate of [place] Magnesia) Zofran No Notes: Memoria 11-28 (Same as: l 00:15: Zofran) [place] 00 Dilaudid No 0.5 mg, Memori a 11-28 0.5 mL, l 00:15: Route: IV, Perez 00 Drug form: INJ, Q3H, Dosing Weight 103.636, kg, PRN Pain Score 4-6, Start date: 11/27/13 19:15:00, Duration: 30 day, Stop date: 12/27/13 19:14:00 Acetaminoph No Notes: Gordon sarah en 325 MG / 11-28 (Same as: l Hydrocodone 00:15: [place] Lorna nn Bitartrate 00 325/5) Do 5 MG Oral not exceed Tablet 4gm/day of acetaminop hen. Tylenol No 650 mg, Memoria 11-28 Route: PO, l 00:15: Drug form: Perez 00 TAB, Q4H, Dosing Weight 103.636, kg, PRN Pain, Start date: 11/27/13 19:15:00, Duration: 30 day, Stop date: 12/27/13 19:14:00 Sodium No 1,000 mL, Memori a Chloride 11-28 Rate: 75 l 0.154 00:15: ml/hr, Perez MEQ/ML 00 Infuse Injectable over: 13.3 Solution hr, Route: IV, Dosing Weight 103.636 kg, Total Volume: 1,000, Start date: 11/27/13 19:15:00, Duration: 30 day, Stop date: 12/27/13 19:14:00 Cefazolin No Notes: Memori a 11-27 Same as: l 23:35: Ancef Perez 00 Protonix No Notes: Memoria 11-27 Tablet l 21:30: should not [place] 00 be chewed or crushed. (Same as: Protonix) Ancef No Notes: Memoria 11-27 Same as: l 20:00: Ancef [place] 00 Lactated No 1,000 mL, Gordon sarah Ringers IV 11-27 Rate: 25 l 1,000 mL 19:23: ml/hr, Perez 00 Infuse over: 40 hr, Route: IV, Dosing Weight 103.636 kg, Total Volume: 1,000, Start date: 11/27/13 14:23:00, Duration: 1 day, Stop date: 11/28/13 14:22:00 phenylephri No Notes: Gordon sarah ne 10 mg + 11-27 (Same as: l Sodium 19:12: Julián-Syneph Lorna nn Chloride 00 rine) 0.9% IV 249 mL Levemir No Notes: Memoria FlexPen 11-27 Same as l 14:00: Levemir [place] 00 "single patient use only" Regular No 20 unit, Grettaori a Insulin, 11-27 0.2 mL, l Human 100 14:00: Route: Martell n UNT/ML 00 SUB-Q, Injectable Drug form: Solution SOLN, BID, [Humulin R] Dosing Weight 103.636, kg, Start date: 11/27/13 9:00:00, Duration: 30 day, Stop date: 12/26/13 17:00:00 Hydroxyzine No Notes: Gordon sarah 11-27 (Same as: l 14:00: Atarax) Avoid alcohol. Hydrochloro No 1 tab, Gordon sarah thiazide 25 11-27 Route: PO, l MG / 14:00: Drug Form: Perez Lisinopril 00 TAB, 20 MG Oral Dosing Tablet Weight 103.636, kg, Daily, Start date: 11/27/13 9:00:00, Duration: 30 day, Stop date: 12/26/13 9:00:00 Nexium No 40 mg, Memoria 11-27 Route: PO, l 14:00: Drug form: Perez 00 ECCAP, Daily, Dosing Weight 103.636, kg, Start date: 11/27/13 9:00:00, Duration: 30 day, Stop date: 12/26/13 9:00:00 Escitalopra No Notes: Gordon sarah m 11-27 (Same as: l 14:00: Lexapro) [place] 00 Aspirin 81 No Notes: Do Me moria MG Enteric 11-27 not crush l Coated 14:00: or chew. Perez Tablet 00 (Same As: Ecotrin) pneumococca No Notes: Gordon sarah l capsular 11-27 (Same as: l polysacchar 14:00: Pneumovax H ermann anthony type 1 00 23) vaccine / Refrigerat pneumococca e l capsular polysacchar anthony type 10A vaccine / pneumococca l capsular polysacchar anthony type 11A vaccine / pneumococca l capsular polysacchar anthony type 12F vaccine / pneumococca l capsular polysacchar Prinivil No Notes: Memoria 11-27 (Same as: l 14:00: Prinivil, Perez 00 Zestril) Gemfibrozil No Notes: Gordon sarah 11-27 (Same as: l 14:00: Lopid) Perez 00 hydrochloro No Notes: Gordon sarah thiazide 25 11-27 (Same as: l mg oral 14:00: Hydrodiuri Herm megha tablet 00 l) With food. Insulin No 30 unit, Memori a Glargine 11-27 Route: l 14:00: SUB-Q, [place] Daily, Dosing Weight 103.636, kg, Start date: 11/27/13 9:00:00, Duration: 30 day, Stop date: 12/26/13 9:00:00 NovoLOG No Notes: Memoria 11-27 (Same as: l 13:00: NovoLOG) Perez Insulin, No Notes: Memoria Aspart, 11-27 Roll in l Human 02:52: palms of Perez hands gently; Do not shake vigorously . (Same as: NovoLOG) "single patient use only" Stable for 28 days at room temperatur e. Expires in days from ____Date Glucagon No 1 mg, Memoria 11-27 Route: IM, l 02:52: PRN, [place] Dosing Weight 103.636, kg, PRN Blood Glucose Results, Start date: 11/26/13 21:52:00, Duration: 30 day, Stop date: 12/26/13 21:51:00 nitroglycer No Notes: Gordon sarah in 0.4 mg 11-26 (Same l sublingual 22:44: as:Nitroqu H ermann tablet 00 ick, Nitrostat) "Do Not Crush" Sublingual tablet atropine No 0.5 mg, 5 Gordon sarah 8-05 mL, Route: l 22:44: IVP, Drug Perez form: INJ, PRN, PRN Bradycardi a, Start date: 11/26/13 17:44:00, Duration: 30 day, Stop date: 12/26/13 17:43:00 Ondansetron No Notes: Gordon sarah 11-26 (Same as: l 22:16: Zofran) Perez 00 Morphine No Notes: Memoria 11-26 (Same l 22:16: as:MORPhin Perez 00 e Sulfate) Docusate No Notes: Memoria 11-26 (Same as: l 22:16: Colace) [place] 00 (Do Not Crush) Acetaminoph No Notes: Max Memoria en 11-26 acetaminop l 22:16: hen = [place] 00 4000mg/day (4 gm/day). (Same as: Tylenol) Insulin, No Notes: Memoria Aspart, 11-26 Roll in l Human 21:30: palms of Perez 00 hands gently; Do not shake vigorously . (Same as: NovoLOG) "single patient use only" Stable for 28 days at room temperatur e. Expires in days from ____Date Insulin, No Notes: Memoria Aspart, 11-26 Roll in l Human 21:25: palms of [place] 00 hands gently; Do not shake vigorously . (Same as: NovoLOG) "single patient use only" Stable for 28 days at room temperatur e. Expires in days from ____Date Dextrose No 12.5 gm, Memor ia 50% Syringe 11-26 25 mL, l 21:25: Route: IVP, Drug Form: INJ, Dosing Weight 103.636, kg, PRN, PRN Blood Glucose Results, Start date: 11/26/13 16:25:00, Duration: 30 day, Stop date: 12/26/13 16:24:00 Glucagon No 1 mg, Memoria 11-26 Route: IM, l 21:25: Drug form: Perez 00 PDR/INJ, PRN, Dosing Weight 103.636, kg, PRN Blood Glucose Results, Start date: 11/26/13 16:25:00, Duration: 30 day, Stop date: 12/26/13 16:24:00 Morphine No Notes: Memoria 8 (Same l 20:23: as:MORPhin [place] 00 e Sulfate) Aspirin 81 Yes 81 mg = 1 Me moria MG Enteric 11-26 tab, PO, l Coated 19:13: Daily [place] Tablet Esomeprazol Yes 40 mg = 1 M emoria e 40 MG 11-26 cap, PO, l Enteric 19:13: Daily Perez Coated 00 Capsule [Nexium] atorvastati Yes 20 mg = 1 M emoria n 20 MG 11-26 tab, PO, l Oral Tablet 19:13: Bedtime Her burk [Lipitor] 00 Regular Yes 20 unit, Memori a Insulin, 11-26 SUB-Q, BID l Human 100 19:13: Perez UNT/ML 00 Injectable Solution [Humulin R] Hydroxyzine Yes 50 mg = 1 M emoria Hydrochlori 05 tab, PO, l de 50 MG 19:13: Q12H Perez Oral Tablet Hydrochloro Yes 1 tab, PO, Memoria thiazide 25 11-26 Daily l MG / 19:13: Perez Lisinopril 00 20 MG Oral Tablet escitalopra Yes 20 mg = 1 M emoria m 20 mg 05 tab, PO, l oral tablet 19:13: Daily Lorna nn quetiapine Yes 300 mg = 1 M emoria 300 MG Oral 05 tab, PO, l Tablet 19:13: Bedtime [place] [Seroquel] 00 Aspirin 81 No 324 mg, Gordon sarah MG Chewable 11-26 Route: PO, l Tablet 17:33: Drug form: Lorna nn 00 CHE[place]AB, ONCE, Dosing Weight 103.636, kg, Priority: STAT, Start date: 11/26/13 12:33:00, Stop date: 11/26/13 12:33:00 Ondansetron No 4 mg, Memor ia 11-26 Route: l 17:32: IVP, Drug Perez form: INJ, ONCE, Dosing Weight 103.636, kg, Priority: STAT, Start date: 11/26/13 12:32:00, Stop date: 11/26/13 12:32:00 Morphine No 4 mg, Memoria 11-26 Route: l 17:32: IVP, Drug form: INJ, ONCE, Dosing Weight 103.636, kg, Priority: STAT, Start date: 11/26/13 12:32:00, Stop date: 11/26/13 12:32:00 Insulin, No 8 unit, Memori a Regular, 11-26 Route: l Pork 17:25: IVP, ONCE, Dosing Weight 103.636, kg, Priority: STAT, Start date: 11/26/13 12:25:00, Stop date: 11/26/13 12:25:00 ibuprofen Yes Macario K 600 mg, 1 M emoria 600 mg oral 12-05 Jamel tab, PO, l tablet 03:21: Q6H, PRN, Martell n 32 take with food, 30 tab, Pain, Substituti on Allowedtak e with food Flexeril 10 Yes Macario K 10 mg, 1 Memoria mg oral 12-05 Jamel tab, PO, l tablet 03:21: TID, PRN, Martell n 29 30 tab, for spasm, Substituti on Allowed, TAB ondansetron No Macario K 4 mg, Mem oria 12-05 Jamel Route: l 02:45: IVP, Drug form: INJ, ONCE, Dosing Weight 100.455, kg, Priority: STAT, Start date: 12/04/12 21:45:00, Stop date: 12/04/12 21:45:00 morphine No Amcario K 4 mg, Memori a Sulfate 12-05 Jamel Route: l 02:44: IVP, ONCE, Dosing Weight 100.455, kg, Start date: 12/04/12 21:44:00, Stop date: 12/04/12 21:44:00 Immunizations Ordered Immunization Filled Immunization Date Status Commen ts Source Name Name Cory COVID-19 Cory COVID-19 2020-08-28 Completed Vaccine Vaccine 00:00:00 Pneumococcal 2019-06-11 Completed NPI:[id number] Polysaccharide, 00:00:00 PPSV23 (PNEUMOVAX) Pneumococcal 2019-06-11 Completed NPI:[id number] Polysaccharide, 00:00:00 PPSV23 (PNEUMOVAX) Pneumococcal 2019-06-11 Completed NPI:[id number] Polysaccharide, 00:00:00 PPSV23 (PNEUMOVAX) influenza virus 2018-03-13 Completed [facility] vaccine, inactivated 21:15:00 Herm megha TDAP 2015-12-07 Completed 00:00:00 PPD (TB) 2015-12-07 Completed 00:00:00 TDAP 2015-12-07 Completed 00:00:00 PPD (TB) 2015-12-07 Completed 00:00:00 TDAP 2015-12-07 Completed 00:00:00 PPD (TB) 2015-12-07 Completed 00:00:00 pneumococcal 2013-11-27 Completed [facility] 23-valent vaccine 13:30:00 Perez Vital Signs Vital Name Observation Time Observation Value Comments Source Systolic blood 2020-04-09 19:46:00 199 mm[Hg] [facility] pressure Medicine Diastolic blood 2020-04-09 19:46:00 102 mm[Hg] [facility] Medicine Heart rate 2020-04-09 19:46:00 64 /min [place] Body temperature 2020-04-09 19:46:00 37.22 Tanika [facility] Body height 2020-04-09 19:46:00 165.1 cm [place] Body weight 2020-04-09 19:46:00 87.998 kg [place] BMI 2020-04-09 19:46:00 32.28 kg/m2 [place] Temperature Oral (F) 2018-07-10 03:00:00 98.0 F [facility] [place] Systolic (mm Hg) 2018-07-10 03:00:00 Gordon rial Perez Diastolic (mm Hg) 2018-07-10 03:00:00 Mem orial Perez Heart Rate 2018-07-10 03:00:00 [facility] Respitory Rate 2018-07-10 03:00:00 Memori al Perez Systolic (mm Hg) 2018-07-09 22:03:00 Gordon rial Perez Diastolic (mm Hg) 2018-07-09 22:03:00 Mem orial Perez Respitory Rate 2018-07-09 22:03:00 Memori al Perez Heart Rate 2018-07-09 22:03:00 [facility] Height 2018-07-09 20:06:00 165.1 cm [facility] [place] BMI Calculated 2018-07-09 20:06:00 [facility] [place] Weight 2018-07-09 20:06:00 [facility] [place] Respitory Rate 2018-07-09 20:06:00 [facility] [place] Heart Rate 2018-07-09 20:06:00 [facility] Perez Systolic (mm Hg) 2018-07-09 20:06:00 Gordon rial [place] Diastolic (mm Hg) 2018-07-09 20:06:00 Mem orial Perez Temperature Oral (F) 2018-07-09 20:06:00 98.7 F [facility] Perez Respitory Rate 2018-05-17 05:30:00 Memori al Perez Systolic (mm Hg) 2018-05-17 05:30:00 Gordon rial Perez Diastolic (mm Hg) 2018-05-17 05:30:00 Mem orial Perez Systolic (mm Hg) 2018-05-17 01:28:00 Gordon rial [place] Diastolic (mm Hg) 2018-05-17 01:28:00 Mem orial Perez Respitory Rate 2018-05-17 01:28:00 Memori al Perez Heart Rate 2018-05-16 23:48:00 [facility] [place] Systolic (mm Hg) 2018-05-16 23:48:00 Gordon rial [place] Diastolic (mm Hg) 2018-05-16 23:48:00 Mem orial Perez Respitory Rate 2018-05-16 23:48:00 Memori al [place] Temperature Oral (F) 2018-05-16 23:48:00 98.6 F [facility] [place] Weight 2018-05-16 19:46:00 [facility] [place] Height 2018-05-16 19:46:00 165.1 cm [facility] BMI Calculated 2018-05-16 19:46:00 Memori al [place] Temperature Oral (F) 2018-05-16 19:46:00 98.2 F [facility] Heart Rate 2018-05-16 19:46:00 [facility] [place] Systolic (mm Hg) 2018-04-01 08:26:00 Gordon rial [place] Diastolic (mm Hg) 2018-04-01 08:26:00 Mem orial Perez Temperature Oral (F) 2018-04-01 08:26:00 98 F [facility] [place] Respitory Rate 2018-04-01 08:26:00 Memori al Perez Respitory Rate 2018-04-01 07:00:00 Memori al [place] Systolic (mm Hg) 2018-04-01 07:00:00 Gordon rial Perez Diastolic (mm Hg) 2018-04-01 07:00:00 Mem orial Perez BMI Calculated 2018-04-01 03:49:00 Memori al Perez Height 2018-04-01 03:49:00 165.1 cm [facility] [place] Temperature Oral (F) 2018-04-01 03:49:00 98.8 F [facility] [place] Weight 2018-04-01 03:49:00 [facility] [place] Systolic (mm Hg) 2018-04-01 03:49:00 Gordon rial Perez Diastolic (mm Hg) 2018-04-01 03:49:00 Mem orial Perez Heart Rate 2018-04-01 03:49:00 [facility] [place] Respitory Rate 2018-04-01 03:49:00 Memori al [place] Heart Rate 2018-03-20 02:45:00 [facility] [place] Systolic (mm Hg) 2018-03-20 02:45:00 Gordon rial Perez Diastolic (mm Hg) 2018-03-20 02:45:00 Mem orial [place] Respitory Rate 2018-03-20 02:45:00 Memori al [place] Temperature Oral (F) 2018-03-20 02:45:00 97.9 F [facility] Temperature Oral (F) 2018-03-20 01:44:00 98 F [facility] Perez Heart Rate 2018-03-20 01:44:00 [facility] Perez Systolic (mm Hg) 2018-03-20 01:44:00 Gordon rial [place] Respitory Rate 2018-03-20 01:44:00 Memori al Perez Diastolic (mm Hg) 2018-03-20 01:44:00 Mem orial [place] Weight 2018-03-19 22:48:00 [facility] [place] Temperature Oral (F) 2018-03-19 22:48:00 98 F [facility] Height 2018-03-19 22:48:00 165.1 cm [facility] Perez BMI Calculated 2018-03-19 22:48:00 Memori al Perez Respitory Rate 2018-03-19 22:48:00 Memori al Perez Systolic (mm Hg) 2018-03-19 22:48:00 Gordon rial [place] Diastolic (mm Hg) 2018-03-19 22:48:00 Mem orial [place] Heart Rate 2018-03-19 22:48:00 [facility] [place] Heart Rate 2018-03-13 22:00:00 [facility] [place] Respitory Rate 2018-03-13 22:00:00 Memori al Perez Temperature Oral (F) 2018-03-13 22:00:00 98.8 F [facility] [place] Systolic (mm Hg) 2018-03-13 22:00:00 Gordon rial Perez Diastolic (mm Hg) 2018-03-13 22:00:00 Mem orial [place] Temperature Oral (F) 2018-03-13 18:00:00 99.0 F [facility] [place] Heart Rate 2018-03-13 18:00:00 [facility] Perez Systolic (mm Hg) 2018-03-13 18:00:00 Gordon rial Perez Diastolic (mm Hg) 2018-03-13 18:00:00 Mem orial [place] Respitory Rate 2018-03-13 18:00:00 Memori al Perez Heart Rate 2018-03-13 14:00:00 [facility] [place] Respitory Rate 2018-03-13 14:00:00 Memori al [place] Temperature Oral (F) 2018-03-13 14:00:00 98.4 F [facility] Perez Systolic (mm Hg) 2018-03-13 14:00:00 Gordon rial [place] Diastolic (mm Hg) 2018-03-13 14:00:00 Mem orial Perez Weight 2018-03-10 14:50:00 [facility] [place] Height 2018-03-10 14:50:00 165.1 cm [facility] [place] BMI Calculated 2018-03-10 14:50:00 Memori al Perez Weight 2018-03-10 12:15:00 [facility] Perez Temperature Oral (F) 2018-02-05 20:51:00 98.2 F [facility] [place] Systolic (mm Hg) 2018-02-05 20:51:00 Gordon rial Perez Diastolic (mm Hg) 2018-02-05 20:51:00 Mem orial Perez Heart Rate 2018-02-05 20:51:00 [facility] Perez Systolic (mm Hg) 2018-02-05 20:04:00 Gordon rial [place] Diastolic (mm Hg) 2018-02-05 20:04:00 Mem orial Perez Heart Rate 2018-02-05 20:04:00 [facility] [place] Temperature Oral (F) 2018-02-05 20:04:00 98.0 F [facility] [place] Systolic (mm Hg) 2018-02-05 19:39:00 Gordon rial Perez Diastolic (mm Hg) 2018-02-05 19:39:00 Mem orial [place] Heart Rate 2018-02-05 19:39:00 [facility] Perez Temperature Oral (F) 2018-02-05 18:09:00 98.2 F [facility] Perez Respitory Rate 2018-02-05 18:09:00 Memori al Perez Respitory Rate 2018-02-05 16:27:00 [facility] [place] Respitory Rate 2018-02-05 12:31:00 [facility] [place] Weight 2018-02-04 09:53:00 [facility] Perez BMI Calculated 2018-02-04 09:53:00 [facility] [place] Height 2018-02-04 09:53:00 165.1 cm [facility] Temperature Oral (F) 2018-01-06 23:26:00 98.8 F [facility] Perez Respitory Rate 2018-01-06 23:26:00 Memori al Perez Systolic (mm Hg) 2018-01-06 23:26:00 Gordon rial [place] Diastolic (mm Hg) 2018-01-06 23:26:00 Mem orial Perez Heart Rate 2018-01-06 23:26:00 [facility] Perez Systolic (mm Hg) 2018-01-06 22:14:00 Gordon rial Perez Diastolic (mm Hg) 2018-01-06 22:14:00 Mem orial [place] Respitory Rate 2018-01-06 22:14:00 [facility] al [place] Heart Rate 2018-01-06 22:14:00 [facility] Perez Systolic (mm Hg) 2018-01-06 21:40:00 [facility] [place] Diastolic (mm Hg) 2018-01-06 21:40:00 [facility] [place] Heart Rate 2018-01-06 21:40:00 [facility] Respitory Rate 2018-01-06 19:25:00 [facility] [place] Temperature Oral (F) 2018-01-06 19:25:00 98.9 F [facility] Weight 2017-10-30 16:30:00 [facility] Height 2017-10-30 16:30:00 [facility] Heart Rate 2017-10-30 16:30:00 [facility] Diastolic (mm Hg) 2017-10-30 16:30:00 [facility] Systolic (mm Hg) 2017-10-30 16:30:00 [facility] Weight 2017-10-20 16:15:00 [facility] Height 2017-10-20 16:15:00 [facility] Heart Rate 2017-10-20 16:15:00 [facility] Diastolic (mm Hg) 2017-10-20 16:15:00 [facility] Systolic (mm Hg) 2017-10-20 16:15:00 [facility] Temperature Oral (F) 2017-10-15 16:48:00 98.9 F [facility] Systolic (mm Hg) 2017-10-15 16:48:00 [facility] [place] Diastolic (mm Hg) 2017-10-15 16:48:00 [facility] Respitory Rate 2017-10-15 16:48:00 [facility] [place] Heart Rate 2017-10-15 16:48:00 [facility] [place] Heart Rate 2017-10-15 12:39:00 [facility] Respitory Rate 2017-10-15 12:39:00 [facility] [place] Systolic (mm Hg) 2017-10-15 12:39:00 [facility] Diastolic (mm Hg) 2017-10-15 12:39:00 [facility] Temperature Oral (F) 2017-10-15 12:39:00 97.9 F [facility] Systolic (mm Hg) 2017-10-15 08:08:00 [facility] [place] Diastolic (mm Hg) 2017-10-15 08:08:00 [facility] [place] Heart Rate 2017-10-15 08:08:00 [facility] Respitory Rate 2017-10-15 08:08:00 [facility] Temperature Oral (F) 2017-10-15 08:08:00 98.4 F [facility] BMI Calculated 2017-10-15 02:10:00 [facility] Height 2017-10-15 02:10:00 165.1 cm [facility] Weight 2017-10-15 02:10:00 [facility] Weight 2017-10-14 17:45:00 [facility] BMI Calculated 2017-10-14 17:45:00 [facility] Height 2017-10-14 17:45:00 165.1 cm [facility] Systolic (mm Hg) 2017-09-22 14:00:00 [facility] Diastolic (mm Hg) 2017-09-22 14:00:00 [facility] Systolic (mm Hg) 2017-09-22 13:00:00 [facility] Diastolic (mm Hg) 2017-09-22 13:00:00 [facility] Respitory Rate 2017-09-22 12:00:00 [facility] Systolic (mm Hg) 2017-09-22 12:00:00 [facility] Diastolic (mm Hg) 2017-09-22 12:00:00 [facility] Respitory Rate 2017-09-22 11:00:00 [facility] Respitory Rate 2017-09-22 10:00:00 [facility] Weight 2017-09-21 02:50:00 [facility] BMI Calculated 2017-09-21 02:50:00 [facility] Height 2017-09-21 02:50:00 165.1 cm [facility] Weight 2017-09-21 02:44:00 [facility] Height 2017-09-21 02:44:00 165.1 cm [facility] BMI Calculated 2017-09-21 02:44:00 [facility] Respitory Rate 2017-09-21 00:45:00 [facility] Systolic (mm Hg) 2017-09-21 00:45:00 [facility] Diastolic (mm Hg) 2017-09-21 00:45:00 [facility] Heart Rate 2017-09-20 23:44:00 [facility] Respitory Rate 2017-09-20 23:44:00 [facility] Systolic (mm Hg) 2017-09-20 23:44:00 [facility] Diastolic (mm Hg) 2017-09-20 23:44:00 [facility] Weight 2017-09-20 20:59:00 [facility] BMI Calculated 2017-09-20 20:59:00 [facility] Respitory Rate 2017-09-20 20:59:00 [facility] Heart Rate 2017-09-20 20:59:00 [facility] Systolic (mm Hg) 2017-09-20 20:59:00 [facility] Diastolic (mm Hg) 2017-09-20 20:59:00 [facility] Temperature Oral (F) 2017-09-20 20:59:00 99 F [facility] Height 2017-09-20 20:59:00 165.1 cm [facility] Heart Rate 2017-08-30 12:05:00 [facility] Respitory Rate 2017-08-30 12:05:00 [facility] Systolic (mm Hg) 2017-08-30 12:05:00 [facility] Diastolic (mm Hg) 2017-08-30 12:05:00 [facility] Temperature Oral (F) 2017-08-30 12:05:00 98.6 F [facility] Systolic (mm Hg) 2017-08-30 08:07:00 [facility] Diastolic (mm Hg) 2017-08-30 08:07:00 [facility] Respitory Rate 2017-08-30 08:07:00 [facility] Heart Rate 2017-08-30 08:07:00 [facility] Temperature Oral (F) 2017-08-30 08:07:00 97.9 F [facility] Respitory Rate 2017-08-30 03:56:00 [facility] Temperature Oral (F) 2017-08-30 03:56:00 98.4 F [facility] Systolic (mm Hg) 2017-08-30 03:56:00 [facility] Diastolic (mm Hg) 2017-08-30 03:56:00 [facility] Heart Rate 2017-08-30 03:56:00 [facility] Height 2017-08-30 02:51:00 165.1 cm [facility] Weight 2017-08-30 02:51:00 [facility] BMI Calculated 2017-08-30 02:51:00 [facility] Weight 2017-08-29 18:35:00 [facility] Weight 2017-07-31 15:45:00 [facility] Height 2017-07-31 15:45:00 [facility] Heart Rate 2017-07-31 15:45:00 [facility] Diastolic (mm Hg) 2017-07-31 15:45:00 [facility] Systolic (mm Hg) 2017-07-31 15:45:00 [facility] Weight 2017-07-12 20:15:00 [facility] Height 2017-07-12 20:15:00 [facility] Heart Rate 2017-07-12 20:15:00 [facility] Diastolic (mm Hg) 2017-07-12 20:15:00 [facility] Systolic (mm Hg) 2017-07-12 20:15:00 [facility] Diastolic (mm Hg) 2017-06-27 20:00:00 [facility] Systolic (mm Hg) 2017-06-27 20:00:00 [facility] Height 2017-06-27 20:00:00 [facility] Heart Rate 2017-06-27 20:00:00 [facility] Temperature Oral (F) 2016-08-10 17:47:00 98.0 F [facility] Systolic (mm Hg) 2016-08-10 17:47:00 [facility] Diastolic (mm Hg) 2016-08-10 17:47:00 [facility] Heart Rate 2016-08-10 17:47:00 [facility] Respitory Rate 2016-08-10 17:47:00 [facility] BMI Calculated 2016-08-10 14:31:00 [facility] Weight 2016-08-10 14:31:00 [facility] Height 2016-08-10 14:31:00 165.1 cm [facility] Respitory Rate 2016-08-10 14:31:00 [facility] Temperature Oral (F) 2016-08-10 14:31:00 98.2 F [facility] Systolic (mm Hg) 2016-08-10 14:31:00 [facility] Diastolic (mm Hg) 2016-08-10 14:31:00 [facility] Heart Rate 2016-08-10 14:31:00 [facility] Systolic (mm Hg) 2016-04-23 02:11:00 [facility] Diastolic (mm Hg) 2016-04-23 02:11:00 [facility] Respitory Rate 2016-04-23 02:11:00 [facility] Respitory Rate 2016-04-23 00:44:00 [facility] Temperature Oral (F) 2016-04-22 23:13:00 98.1 F [facility] Heart Rate 2016-04-22 23:13:00 [facility] Respitory Rate 2016-04-22 23:13:00 [facility] Systolic (mm Hg) 2016-04-22 23:13:00 [facility] Diastolic (mm Hg) 2016-04-22 23:13:00 [facility] BMI Calculated 2016-04-22 23:13:00 [facility] Height 2016-04-22 23:13:00 165.1 cm [facility] Weight 2016-04-22 23:13:00 [facility] Systolic (mm Hg) 2015-10-16 22:43:00 [facility] Diastolic (mm Hg) 2015-10-16 22:43:00 [facility] Temperature Oral (F) 2015-10-16 22:43:00 98.2 F [facility] Respitory Rate 2015-10-16 22:43:00 [facility] Heart Rate 2015-10-16 22:43:00 [facility] Systolic (mm Hg) 2015-10-16 18:13:00 [facility] Diastolic (mm Hg) 2015-10-16 18:13:00 [facility] Respitory Rate 2015-10-16 18:13:00 [facility] Heart Rate 2015-10-16 18:13:00 [facility] Weight 2015-10-16 15:40:00 [facility] BMI Calculated 2015-10-16 15:40:00 [facility] Height 2015-10-16 15:40:00 165.1 cm [facility] Systolic (mm Hg) 2015-10-16 15:40:00 [facility] Diastolic (mm Hg) 2015-10-16 15:40:00 [facility] Heart Rate 2015-10-16 15:40:00 [facility] Respitory Rate 2015-10-16 15:40:00 [facility] Temperature Oral (F) 2015-10-16 15:40:00 98.4 F [facility] Systolic (mm Hg) 2015-08-17 15:41:00 [facility] Diastolic (mm Hg) 2015-08-17 15:41:00 [facility] Respitory Rate 2015-08-17 15:41:00 [facility] Heart Rate 2015-08-17 15:41:00 [facility] Temperature Oral (F) 2015-08-17 15:41:00 98.7 F [facility] Heart Rate 2015-08-17 12:02:00 [facility] Systolic (mm Hg) 2015-08-17 12:02:00 [facility] Diastolic (mm Hg) 2015-08-17 12:02:00 [facility] Respitory Rate 2015-08-17 12:02:00 [facility] Temperature Oral (F) 2015-08-17 12:02:00 97.9 F [facility] Temperature Oral (F) 2015-08-17 09:31:00 98 F [facility] Heart Rate 2015-08-17 09:31:00 [facility] Respitory Rate 2015-08-17 09:31:00 [facility] Systolic (mm Hg) 2015-08-17 09:31:00 [facility] Diastolic (mm Hg) 2015-08-17 09:31:00 [facility] BMI Calculated 2015-08-17 01:28:00 [facility] Height 2015-08-17 01:28:00 165.1 cm [facility] Weight 2015-08-17 01:28:00 [facility] Weight 2015-08-16 20:41:00 [facility] BMI Calculated 2015-08-16 20:41:00 [facility] Height 2015-08-16 20:41:00 165.1 cm [facility] Heart Rate 2015-06-06 13:46:00 [facility] Respitory Rate 2015-06-06 13:46:00 [facility] Temperature Oral (F) 2015-06-06 13:46:00 97.6 F [facility] Systolic (mm Hg) 2015-06-06 13:46:00 [facility] Diastolic (mm Hg) 2015-06-06 13:46:00 [facility] Heart Rate 2015-06-06 10:05:00 [facility] Respitory Rate 2015-06-06 10:05:00 [facility] Systolic (mm Hg) 2015-06-06 10:05:00 [facility] Diastolic (mm Hg) 2015-06-06 10:05:00 [facility] Temperature Oral (F) 2015-06-06 10:05:00 97.7 F [facility] Heart Rate 2015-06-06 06:08:00 [facility] Temperature Oral (F) 2015-06-06 06:08:00 98.1 F [facility] Systolic (mm Hg) 2015-06-06 06:08:00 [facility] Diastolic (mm Hg) 2015-06-06 06:08:00 [facility] Respitory Rate 2015-06-06 06:08:00 [facility] Weight 2015-06-03 22:45:00 [facility] Height 2015-06-03 22:45:00 165.1 cm [facility] BMI Calculated 2015-06-03 22:45:00 [facility] Systolic (mm Hg) 2015-05-15 14:00:00 [facility] Diastolic (mm Hg) 2015-05-15 14:00:00 [facility] Respitory Rate 2015-05-15 14:00:00 [facility] Heart Rate 2015-05-15 14:00:00 [facility] Temperature Oral (F) 2015-05-15 14:00:00 98.2 F [facility] Respitory Rate 2015-05-15 10:19:00 [facility] Systolic (mm Hg) 2015-05-15 10:19:00 [facility] Diastolic (mm Hg) 2015-05-15 10:19:00 [facility] Temperature Oral (F) 2015-05-15 10:19:00 97.8 F [facility] Heart Rate 2015-05-15 10:19:00 [facility] Temperature Oral (F) 2015-05-15 05:55:00 97.8 F [facility] Systolic (mm Hg) 2015-05-15 05:55:00 [facility] Diastolic (mm Hg) 2015-05-15 05:55:00 [facility] Heart Rate 2015-05-15 05:55:00 [facility] Respitory Rate 2015-05-15 05:55:00 [facility] Height 2015-05-14 03:24:00 165.1 cm [facility] Weight 2015-05-13 19:32:00 [facility] BMI Calculated 2015-05-13 19:32:00 [facility] Height 2015-05-13 19:32:00 165.1 cm [facility] Heart Rate 2015-05-03 14:08:00 [facility] Respitory Rate 2015-05-03 14:08:00 [facility] Systolic (mm Hg) 2015-05-03 14:08:00 [facility] Diastolic (mm Hg) 2015-05-03 14:08:00 [facility] Temperature Oral (F) 2015-05-03 14:08:00 98.2 F [facility] Temperature Oral (F) 2015-05-03 09:26:00 97.5 F [facility] Heart Rate 2015-05-03 09:26:00 [facility] Respitory Rate 2015-05-03 09:26:00 [facility] Systolic (mm Hg) 2015-05-03 09:26:00 [facility] Diastolic (mm Hg) 2015-05-03 09:26:00 [facility] Temperature Oral (F) 2015-05-03 06:42:00 97.9 F [facility] Systolic (mm Hg) 2015-05-03 06:42:00 [facility] Diastolic (mm Hg) 2015-05-03 06:42:00 [facility] Heart Rate 2015-05-03 06:42:00 [facility] Respitory Rate 2015-05-03 06:42:00 [facility] BMI Calculated 2015-05-01 22:49:00 [facility] Weight 2015-05-01 22:49:00 [facility] Height 2015-05-01 22:49:00 165.1 cm [facility] BMI Calculated 2015-05-01 16:27:00 [facility] Weight 2015-05-01 16:27:00 [facility] Height 2015-05-01 16:27:00 165.1 cm [facility] Heart Rate 2015-04-10 13:33:00 [facility] Respitory Rate 2015-04-10 13:33:00 [facility] Temperature Oral (F) 2015-04-10 13:33:00 98.8 F [facility] Systolic (mm Hg) 2015-04-10 13:33:00 [facility] Diastolic (mm Hg) 2015-04-10 13:33:00 [facility] Respitory Rate 2015-04-10 10:00:00 [facility] Systolic (mm Hg) 2015-04-10 10:00:00 [facility] Diastolic (mm Hg) 2015-04-10 10:00:00 [facility] Heart Rate 2015-04-10 10:00:00 [facility] Temperature Oral (F) 2015-04-10 10:00:00 97.9 F [facility] Respitory Rate 2015-04-10 06:55:00 [facility] Systolic (mm Hg) 2015-04-10 06:55:00 [facility] Diastolic (mm Hg) 2015-04-10 06:55:00 [facility] Temperature Oral (F) 2015-04-10 06:55:00 97.8 F [facility] Heart Rate 2015-04-10 06:55:00 [facility] Height 2015-04-09 17:24:00 165.1 cm [facility] Weight 2015-04-09 17:24:00 [facility] BMI Calculated 2015-04-09 17:24:00 [facility] Weight 2015-04-09 13:01:00 [facility] BMI Calculated 2015-04-09 13:01:00 [facility] Height 2015-04-09 13:01:00 165.1 cm [facility] Systolic (mm Hg) 2015-03-14 22:02:00 [facility] Diastolic (mm Hg) 2015-03-14 22:02:00 [facility] Temperature Oral (F) 2015-03-14 22:02:00 100.6 F [facility] Heart Rate 2015-03-14 22:02:00 [facility] Heart Rate 2015-03-14 21:02:00 [facility] Respitory Rate 2015-03-14 21:02:00 [facility] Systolic (mm Hg) 2015-03-14 21:02:00 [facility] Diastolic (mm Hg) 2015-03-14 21:02:00 [facility] Temperature Oral (F) 2015-03-14 21:02:00 99.9 F [facility] Temperature Oral (F) 2015-03-14 18:22:00 103.2 F [facility] Weight 2015-03-14 17:29:00 [facility] BMI Calculated 2015-03-14 17:29:00 [facility] Height 2015-03-14 17:29:00 165.1 cm [facility] Heart Rate 2015-03-14 17:29:00 [facility] Respitory Rate 2015-03-14 17:29:00 [facility] Systolic (mm Hg) 2015-03-14 17:29:00 [facility] Diastolic (mm Hg) 2015-03-14 17:29:00 [facility] Temperature Oral (F) 2014-12-20 17:26:00 97.9 F [facility] Respitory Rate 2014-12-20 17:26:00 [facility] Heart Rate 2014-12-20 17:26:00 [facility] Systolic (mm Hg) 2014-12-20 17:26:00 [facility] Diastolic (mm Hg) 2014-12-20 17:26:00 [facility] Systolic (mm Hg) 2014-12-20 13:00:00 [facility] Diastolic (mm Hg) 2014-12-20 13:00:00 [facility] Heart Rate 2014-12-20 13:00:00 [facility] Temperature Oral (F) 2014-12-20 13:00:00 98 F [facility] Respitory Rate 2014-12-20 13:00:00 [facility] Diastolic (mm Hg) 2014-12-20 09:22:00 [facility] Systolic (mm Hg) 2014-12-20 09:22:00 [facility] Heart Rate 2014-12-20 09:22:00 [facility] Respitory Rate 2014-12-20 09:22:00 [facility] Temperature Oral (F) 2014-12-20 09:22:00 98.6 F [facility] Weight 2014-12-18 22:46:00 [facility] Height 2014-12-18 22:46:00 165.1 cm [facility] BMI Calculated 2014-12-18 22:46:00 [facility] Height 2014-12-18 22:45:00 165.1 cm [facility] Weight 2014-12-18 22:45:00 [facility] BMI Calculated 2014-12-18 22:45:00 [facility] Weight 2014-12-18 13:52:00 [facility] BMI Calculated 2014-12-18 13:52:00 [facility] Height 2014-12-18 13:52:00 165.1 cm [facility] Heart Rate 2014-08-04 21:20:00 [facility] Systolic (mm Hg) 2014-08-04 21:20:00 [facility] Diastolic (mm Hg) 2014-08-04 21:20:00 [facility] Temperature Oral (F) 2014-08-04 21:00:00 98.1 F [facility] Respitory Rate 2014-08-04 21:00:00 [facility] Systolic (mm Hg) 2014-08-04 21:00:00 [facility] Diastolic (mm Hg) 2014-08-04 21:00:00 [facility] Heart Rate 2014-08-04 21:00:00 [facility] Heart Rate 2014-08-04 20:49:00 [facility] Systolic (mm Hg) 2014-08-04 20:49:00 [facility] Diastolic (mm Hg) 2014-08-04 20:49:00 [facility] Temperature Oral (F) 2014-08-04 16:00:00 98.2 F [facility] Respitory Rate 2014-08-04 16:00:00 [facility] Temperature Oral (F) 2014-08-04 13:00:00 97.7 F [facility] Respitory Rate 2014-08-04 13:00:00 [facility] Height 2014-08-01 16:46:00 165.1 cm [facility] Weight 2014-08-01 16:46:00 [facility] BMI Calculated 2014-08-01 16:46:00 [facility] Diastolic (mm Hg) 2014-05-06 11:30:00 [facility] Systolic (mm Hg) 2014-05-06 11:30:00 [facility] Respitory Rate 2014-05-06 11:30:00 [facility] Heart Rate 2014-05-06 11:30:00 [facility] Temperature Oral (F) 2014-05-06 11:30:00 98.2 F [facility] Temperature Oral (F) 2014-05-06 09:54:00 97.9 F [facility] Heart Rate 2014-05-06 09:54:00 [facility] Respitory Rate 2014-05-06 09:54:00 [facility] Diastolic (mm Hg) 2014-05-06 09:54:00 [facility] Systolic (mm Hg) 2014-05-06 09:54:00 [facility] Diastolic (mm Hg) 2014-05-06 08:31:00 [facility] Systolic (mm Hg) 2014-05-06 08:31:00 [facility] Heart Rate 2014-05-06 08:31:00 [facility] Respitory Rate 2014-05-06 08:31:00 [facility] Temperature Oral (F) 2014-05-06 08:31:00 97.9 F [facility] Weight 2014-05-05 20:25:00 [facility] Height 2014-05-05 20:25:00 165.1 cm [facility] BMI Calculated 2014-05-05 20:25:00 [facility] Diastolic (mm Hg) 2014-03-06 22:00:00 [facility] Systolic (mm Hg) 2014-03-06 22:00:00 [facility] Heart Rate 2014-03-06 22:00:00 [facility] Respitory Rate 2014-03-06 22:00:00 [facility] Temperature Oral (F) 2014-03-06 22:00:00 97.7 F [facility] Height 2014-03-06 21:15:00 165.1 cm [facility] Diastolic (mm Hg) 2014-03-06 19:17:00 [facility] Systolic (mm Hg) 2014-03-06 19:17:00 [facility] Respitory Rate 2014-03-06 19:17:00 [facility] Heart Rate 2014-03-06 19:17:00 [facility] Temperature Oral (F) 2014-03-06 19:17:00 97.9 F [facility] Systolic (mm Hg) 2014-03-06 18:32:00 [facility] Diastolic (mm Hg) 2014-03-06 18:32:00 [facility] Heart Rate 2014-03-06 18:32:00 [facility] Temperature Oral (F) 2014-03-06 18:32:00 97.8 F [facility] Respitory Rate 2014-03-06 18:32:00 [facility] Height 2014-03-06 13:38:00 165.1 cm [facility] BMI Calculated 2014-03-06 13:38:00 [facility] Weight 2014-03-06 13:38:00 [facility] Diastolic (mm Hg) 2014-02-06 12:55:00 [facility] Systolic (mm Hg) 2014-02-06 12:55:00 [facility] Temperature Oral (F) 2014-02-06 12:55:00 97.8 F [facility] Respitory Rate 2014-02-06 12:55:00 [facility] Heart Rate 2014-02-06 12:55:00 [facility] Temperature Oral (F) 2014-02-06 09:00:00 97.7 F [facility] Heart Rate 2014-02-06 09:00:00 [facility] Diastolic (mm Hg) 2014-02-06 09:00:00 [facility] Respitory Rate 2014-02-06 09:00:00 [facility] Systolic (mm Hg) 2014-02-06 09:00:00 [facility] Diastolic (mm Hg) 2014-02-06 04:30:00 [facility] Systolic (mm Hg) 2014-02-06 04:30:00 [facility] Temperature Oral (F) 2014-02-06 04:30:00 98.3 F [facility] Respitory Rate 2014-02-06 04:30:00 [facility] Heart Rate 2014-02-06 04:30:00 [facility] Weight 2014-02-04 02:48:00 [facility] Height 2014-02-04 02:48:00 165.1 cm [facility] BMI Calculated 2014-02-04 02:48:00 [facility] Weight 2014-02-03 18:09:00 [facility] Height 2014-02-03 18:09:00 165.1 cm [facility] BMI Calculated 2014-02-03 18:09:00 [facility] Diastolic (mm Hg) 2014-01-09 20:06:00 [facility] Respitory Rate 2014-01-09 20:06:00 [facility] Systolic (mm Hg) 2014-01-09 20:06:00 [facility] Heart Rate 2014-01-09 20:06:00 [facility] Temperature Oral (F) 2014-01-09 20:06:00 98.4 F [facility] Height 2014-01-09 17:51:00 165.1 cm [facility] Weight 2014-01-09 17:51:00 [facility] BMI Calculated 2014-01-09 17:51:00 [facility] Temperature Oral (F) 2014-01-09 17:51:00 98.5 F [facility] Diastolic (mm Hg) 2014-01-09 17:51:00 [facility] Systolic (mm Hg) 2014-01-09 17:51:00 [facility] Heart Rate 2014-01-09 17:51:00 [facility] Respitory Rate 2014-01-09 17:51:00 [facility] Systolic (mm Hg) 2013-11-30 17:00:00 [facility] Respitory Rate 2013-11-30 17:00:00 [facility] Heart Rate 2013-11-30 17:00:00 [facility] Temperature Oral (F) 2013-11-30 17:00:00 98.5 F [facility] Diastolic (mm Hg) 2013-11-30 17:00:00 [facility] Systolic (mm Hg) 2013-11-30 13:00:00 [facility] Diastolic (mm Hg) 2013-11-30 13:00:00 [facility] Temperature Oral (F) 2013-11-30 13:00:00 97.8 F [facility] Heart Rate 2013-11-30 13:00:00 [facility] Respitory Rate 2013-11-30 13:00:00 [facility] Diastolic (mm Hg) 2013-11-30 09:26:00 [facility] Systolic (mm Hg) 2013-11-30 09:26:00 [facility] Respitory Rate 2013-11-30 09:26:00 Preston zhang [facility] Heart Rate 2013-11-30 09:26:00 [facility] Temperature Oral (F) 2013-11-30 09:26:00 98 F [facility] Weight 2013-11-29 11:19:00 [facility] Height 2013-11-26 15:35:00 165.1 cm [facility] BMI Calculated 2013-11-26 15:35:00 [facility] Weight 2013-11-26 15:35:00 [facility] Weight 2012-12-04 22:57:00 [facility] Height 2012-12-04 22:57:00 165.1 cm [facility] Procedures Procedure Date / Time Performing Clinician Source Performed [id number] [id number] 2021-07-09 00:00:00 ALDYA [facility] [id number] 2021-07-09 [id number] 2021-07-09 00:00:00 DWEMA [facility] MEDICATION CORRESPONDENCE 2020-06-15 06:01:00 Doctor Unassigned, No Name [id number] 2019-05-27 00:00:00 ALBPA [facility] Myelography via lumbar 2017-09-21 20:23:53 [facility] injection, including radiological supervision and interpretation; 2 or more regions (eg, lumbar/thoracic, cervical/thoracic, lumbar/cervical, lumbar/thoracic/cervical) Abdominal hysterectomy [facility] Cardiac catheterization [facility] Cervical [facility] discectomy<sup>1</sup> section [facility] Skin of head and/or neck [facility] reconstruction Spinal fusion [facility] Stent [facility] placement<sup>2</sup> Tonsillectomy [facility] Plan of Care Planned Activity Planned Date Details Comments Source Future Scheduled Test COLON CANCER SCREENING: [facility] COLONOSCOPY [code = Medicine COLON CANCER SCREENING: COLONOSCOPY] Future Scheduled Test MAMMOGRAM ANNUAL [code [facility] = MAMMOGRAM ANNUAL] Medicine Future Scheduled Test HEPATITIS C SCREENING [facility] [code = HEPATITIS C Medicine SCREENING] Future Scheduled Test HIV SCREENING [code = [facility] HIV SCREENING] Medicine Future Scheduled Test CERVICAL CANCER [facility] SCREENING 3 YEAR FOLLOW Medi cine UP [code = CERVICAL CANCER SCREENING 3 YEAR FOLLOW UP] Future Scheduled Test ZOSTER VACCINE (1 of 2) [facility] [code = ZOSTER VACCINE Medic ine (1 of 2)] Future Scheduled Test FLU VACCINE > 6 MONTHS [facility] [code = FLU VACCINE > 6 Medi cine MONTHS] Future Scheduled Test BMI FOLLOW UP PLAN [facility] [code = BMI FOLLOW UP Medici ne PLAN] Future Scheduled Test TETANUS SHOT (ADULT) [facility] [code = TETANUS SHOT Medicin e (ADULT)] Encounters Start End Encounter Admission Attending Care Care Encounter Source Date/Time Date/Time Type Type Clinicians Facility Department ID 2020-06-20 Inpatient [facility] [id number] [facility] 08:32:00 [id number] [facility] 2019-10-01 [facility] [id number] [facility] 11:47:00 [id number] [facility] 2019-05-27 Inpatient [facility] [id number] [facility] 11:15:00 [id number] [facility] 2021-08-20 2021-08-20 [facility] [id number] [facility] 03:58:00 08:46:00 Vinay [id number] [facility] 2021-08-20 2021-08-20 [facility] [id number] [facility] 03:58:00 08:46:00 Vinay 31 [facility] 2021-08-07 2021-08-10 Inpatient EM Janice, [facility]01 [id number] [facility] 12:51:00 11:18:00 Danyel [id number] [facility] 2021-08-07 2021-08-10 Inpatient EM Dwtyrell, [facility]01 [id number] [facility] 12:51:00 11:18:00 Danyel 59 [facility] 2021-07-19 2021-07-19 DACIA Guzmán [id number] NPI:[id number] 00:00:00 00:00:00 Thomson A [facility] [id number] SPECIALTY [id number] [facility] [id number] SAÚL [id number] 2021-07-09 2021-07-16 Inpatient EM Janice [facility] INTE [id number] [facility] 17:08:00 13:00:00 Danyel [id number] [facility] 2021-07-09 2021-07-16 Inpatient EM JAMILA Camacho INTE [id number] [facility] 17:08:00 13:00:00 Danyel 13 [facility] 2021-07-01 2021-07-01 [facility] [id number] NPI:183 00:00:00 00:00:00 [facility] [id number] [place] [id number] [place] [id number] [place] [id number] [facility] 2020-12-02 2020-12-02 Outpatient Kirby [facility] [id number] NPI:183 07:30:00 23:59:00 MAHSA [id number] 2020-11-10 2020-11-12 Outpatient X EMILY, [facility] [id number] NPI:183 12:29:00 14:10:00 KAMALA [id number] 1 2020-08-28 2020-08-28 Outpatient GCCOVIDV GCCOVIDV [id number] [facility]OVID 00:00:00 00:00:00 V 2020-06-15 2020-06-15 Orders Doctor MACARIO [id number] NPI:183 00:00:00 00:00:00 Only UnassignedJESSENIA [id number] [place] [facility] [id number] 2020-06-03 2020-06-05 Emergency Berto Munoz [facility] [id number] 12:55:00 17:53:00 Macdonald, [facility] [id number] Berto Munoz [id number] Albert Macdonald [id number] [facility] 109 ([employer]) 2020-04-09 2020-04-09 Office Heck-Gina [facility] [id number] [facility] 13:17:39 16:05:05 Visit Tali higginbotham AMBULATOR 350.1.13.21 [employer] 0.2.7.2.686 [id number] Medi noah 800 e 2020-04-07 2020-04-07 Refill Maki Wilde JONGXOCHITL [id number] 00:00:00 00:00:00 [facility] 350.1.13.10 [facility] 4.2.7.2.686 PRIMARY [id number] CARE - 362 JS 2019-04-09 2019-04-09 Outpatient Joni, HCACL HCACL [id number] [facility] 23:54:00 23:54:00 Musaddiq 83 [facility] 2018-07-09 2018-07-10 [facility] [id number] [facility] 19:34:00 04:10:00 kirby Todd 26 [facility] 2018-07-09 2018-07-09 Emergency E MHSE MHSE [id number] MH 14:34:00 14:34:00 [facility] 2018-05-16 2018-05-17 [facility] [id number] Memoria 19:42:00 06:52:00 kirby Todd 25 [facility] 2018-05-16 2018-05-16 Emergency E MHSE MHSE [id number] MH 13:42:00 13:42:00 [facility] 2018-04-01 2018-04-01 [facility] [id number] Memoria 03:45:00 08:36:00 kirby Todd 24 [facility] 2018-03-19 2018-03-20 [facility] [id number] Mem[facility] 22:40:00 03:53:00 kirby Todd 23 [facility] 2018-03-10 2018-03-13 Inpatient [facility] [id number] Memoria 04:23:00 23:55:00 r Perez 22 [facility] 2018-02-03 2018-02-05 [facility] [id number] Memoria 23:33:00 23:45:00 r Perez 21 [facility] 2018-01-06 2018-01-06 [facility] [id number] Memoria 19:12:00 23:56:00 r Perez 20 [facility] 2017-10-14 2017-10-15 Observatio [facility] [id number] Mem[facility] 17:43:00 20:17:00 n r Perez 19 [facility] 2017-09-21 2017-09-22 [facility] [id number] Memoria 02:30:00 14:53:00 r Perez 50 [facility] 2017-09-20 2017-09-21 [facility] [id number] Memoria 20:50:00 02:20:00 kirby Todd 18 [facility] 2017-08-29 2017-08-30 [facility] [id number] Memoria 18:20:00 15:20:00 n r Perez 17 [facility] 2016-08-10 2016-08-10 [facility] [id number] Memoria 14:27:00 17:49:00 r Perez 16 [facility] 2016-04-22 2016-04-23 [facility] [id number] Memoria 23:10:00 02:59:00 r Perez 15 [facility] 2015-10-16 2015-10-16 EC [facility] [id number] [facility] 15:20:00 22:49:00 Emergency r Perez 14 l [facility] 2015-08-16 2015-08-17 OBS [facility] [id number] [facility] 20:37:00 19:50:00 Observatio kirby Todd 13 l n [facility] 2015-06-03 2015-06-06 OBS [facility] [id number] [facility] 22:44:00 16:30:00 Observatio kirby Todd 12 l n [facility] 2015-05-13 2015-05-15 Inpatient [facility] [id number] Memoria 19:12:00 20:55:00 r Perez 11 [facility] 2015-05-01 2015-05-03 [facility] [id number] Memoria 16:21:00 17:18:00 r [place]ult[place] 10 [facility] 2015-04-09 2015-04-10 OBS [facility] [id number] [facility] 12:56:00 18:30:00 Observatio r [place]ult[place] 09 l n Patient [facility] 2015-03-14 2015-03-14 EC [facility] [id number] Memoria 17:27:00 22:08:00 Emergency r Perez 08 [facility] 2014-12-18 2014-12-20 [facility] [id number] Memoria 13:48:00 19:14:00 r Perez 07 [facility] 2014-08-01 2014-08-04 [facility] [id number] Memoria 16:41:00 22:14:00 r [place] 06 [facility] 2014-05-05 2014-05-06 EC [facility]Flavo [facility] [id number] Memoria 20:05:00 11:33:00 Emergency r Perez 05 l [facility] 2014-03-06 2014-03-07 OBS [facility] [id number] Memoria 13:32:00 02:20:00 Observatio r [place] 04 l n Patient [facility] 2014-02-03 2014-02-06 [facility] [id number] Memoria 17:50:00 18:59:00 r [place] 03 [facility] 2014-01-09 2014-01-09 EC [facility] [id number] [facility] 17:50:00 20:08:00 Emergency r Perez 02 l [facility] 2013-11-26 2013-11-30 [facility] [id number] Memoria 15:24:00 18:45:00 r [place] 01 [facility] 2012-12-04 2012-12-05 Emergency [facility] [id number] Memoria 17:56:00 06:46:[address] Results Test Description Test Time Test Comments Results Result Comments Source GLUCOSE BEDSIDE 2021-08-20 08:46:00 Test Item Value Reference Range Interpretation Comme nts GLUCOSE BEDSIDE (test code = 335 MG/DL 70-110 H Performed by certified 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 [facility] GLUCOSE [id number] 06:29:00 Test Item Value Reference Range Interpretation Comments GLUCOSE BEDSIDE (test 405 MG/DL 70-110 H Perfor med by certified code = GLUBED) 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 [facility] GLUCOSE [id number] 05:27:00 Test Item Value Reference Range Interpretation Comments GLUCOSE BEDSIDE (test 461 MG/DL 70-110 H Perfor med by certified code = GLUBED) 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 [facility] BASIC METABOLIC [id number] 04:54:00 Test Item Value Reference Range Interpretation Comments SODIUM (test code = NA) 138 mEq/L 134-147 N POTASSIUM (test code = 4.3 mEq/L 3.4-5.0 N K) CHLORIDE (test code = 104 mEq/L 100-108 N CL) CARBON DIOXIDE (test 27 mEq/l 21-33 N code = CO2) ANION GAP (test code = 11 0-20 N GAP) GLUCOSE (test code = 528 mg/dL 70-110 HH Critica l result GLU) called to NICO TERRY at 08/20/21Nurse kirby beckett back resut and tech confirmed it's correct? Y BLOOD UREA NITROGEN 12 mg/dL 7-18 N (test code = BUN) GLOMERULAR FILTRATION 51.8 90-95 L Units of measure = RATE (test code = GFR) ml/mi n/1.73 m2 CREATININE (test code = 1.3 mg/dL 0.6-1.3 N CREAT) CALCIUM (test code = 9.1 mg/dL 8.0-10.5 N CA) HEPATIC FUNCTION [id number] 04:54:00 Test Item Value Reference Range Interpretation Comments TOTAL PROTEIN (test code = PROT) 6.7 g/dL 6.4-8.2 N ALBUMIN (test code = ALB) 3.70 g/dL 3.4-5.0 N BILIRUBIN TOTAL (test code = 0.30 mg/dL 0.0-1.0 N BILT) BILIRUBIN DIRECT (test code = < 0.10 MG/DL 0.0-0.30 N BILD) BILIRUBIN INDIRECT (test code = 0.20 MG/DL BILIND) SGOT/AST (test code = AST) 14 IUnit/L 15-37 L SGPT/ALT (test code = ALT) 14 IUnit/L 30-65 L ALKALINE PHOSPHATASE TOTAL (test 133 IUnit/L 20-125 H code = ALKP) [id number] 04:54:00 Test Item Value Reference Range Interpretation Comments MAGNESIUM (test code = MAG) 1.75 mg/dL 1.80-2.40 L TROP-I HIGH [id number] 04:54:00 Test Item Value Reference Range Interpretation Comments TROP-I HIGH < 3 ng/L 0-34 N CAUTION: Units of the SENSITIVITY (test current te st methodology code = TROPIHS) (ng/L) diffe rfrom the prior test meth odology (ng/mL) by a fa ctor of 1000. 99t h Percentile Uppe r Reference Limit (URL): Fe males: 34 ng/LMales: 54 ng/L In order to distin [facility] acute elevations of h igh sensitivitytrop onin from other clinical conditions, the FourthUnive rsal Definition of M yocardial Infarction stressesclinica l assessment and the demonstration o f a rise and/orfall in s erial troponin result s above the URL. These resu lts were obtained using Siemens AtellKeisense IM TnI Hreagent. Results from di fferent methodologies s hould not becompared to o ne another as quantitative results and URLs mayvar y by method. POC ARTERIAL BLOOD [id number] 04:45:00 Test Item Value Reference Range Interpretation Comments POC ARTERIAL BLOOD GAS PH (test 7.388 7.35-7.45 N code = POCPHA) POC ARTERIAL BLOOD GAS PCO2 (test 45.6 mmHg 35.0-45 H code = [id number]) POC TCO2 ARTERIAL (test code = 28.9 POCTCO2) POC ARTERIAL BLOOD GAS PO2 (test 78.8 mmHg 80-100.0 L code = OGBVE1K) POC HCO3 ARTERIAL (test code = 27.5 MMOL/L 22.0-26.0 H [id number]) POC BASE EXCESS (test code = 2.5 MMOL/L -4.0-4.0 N POCBEA) POC O2 SATURATION (test code = 95.3 % 90-100 N POCO2S) ABG DELIVERY (test code = JONEL) Room Air ABG SITE (test code = SITEA) R Radial CRISS'S TEST (test code = ALLENS) N/A GLUCOSE [id number] 04:38:00 Test Item Value Reference Range Interpretation Comments GLUCOSE BEDSIDE (test 514 MG/DL 70-110 H Perfor med by certified code = GLUBED) 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 [facility] CBC W/O [id number] 04:28:00 Test Item Value Reference Range Interpretation Comments WHITE BLOOD CELL (test code = 8.9 x10 3/uL 4.5-11.0 N WBC) RED BLOOD CELL (test code = 3.54 x10 6/uL 3.54-5.02 N RBC) HEMOGLOBIN (test code = HGB) 10.2 g/dL 11.0-15.0 L HEMATOCRIT (test code = HCT) 33.5 % 33.0-45.0 N MEAN CELL VOLUME (test code = 94.6 fL 81.0-99.0 N MCV) MEAN CELL HGB (test code = MCH) 28.8 pg 27.0-33.0 N MEAN CELL HGB CONCETRATION 30.4 g/dL 33.0-37.0 L (test code = MCHC) RED CELL DISTRIBUTION WIDTH CV 13.8 % 11.5-14.5 N (test code = RDW) RED CELL DISTRIBUTION WIDTH SD 47.7 fL 37.0-54.0 N (test code = RDW-SD) PLATELET COUNT (test code = 199 x10 3/uL 150-400 N PLT) MEAN PLATELET VOLUME (test code 11.7 fL 7.0-9.0 H = MPV) GLUCOSE [id number] 06:57:00 Test Item Value Reference Range Interpretation Comments GLUCOSE BEDSIDE (test 211 MG/DL 70-110 H Perfor med by certified code = GLUBED) 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 [facility] GLUCOSE [id number] 19:59:00 Test Item Value Reference Range Interpretation Comments GLUCOSE BEDSIDE (test 154 MG/DL 70-110 H Perfor med by certified code = GLUBED) 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 [facility] GLUCOSE [id number] 17:01:00 Test Item Value Reference Range Interpretation Comments GLUCOSE BEDSIDE (test 153 MG/DL 70-110 H Perfor med by certified code = GLUBED) 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 [facility] COVID 19 Asymptomatic IH [id number] 14:00:00 Test Item Value Reference Range Interpretation Comments COVID 19 Asymptomatic Negative Negative A nega tive result is IH AG (test code = presumpti ve and should COVNONPUIAG) be confirmedwit h an FDA authorized mole cular assay, if neces camilo forpatient jeremias gement.A positive result does not rule out co-inf ections withother patho gens.This test detects austin th viable (live) and non-viable,SARS -CoV, and SARS-CoV-2. Echo t performance dep ends on theamount of vi claribel (antigen) in th e sample.This echo t has not been FDA cleare d or approved; the t est hasbeen authori zed by FDA under an Em ergency Use Authorizati on(EUA) for use by labo ratories certified under the CLIA thatmeet the requirements to perform moderate, high or waivedcomplexit y tests. 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 [facility] BASIC METABOLIC [id number] 08:08:00 Test Item Value Reference Range Interpretation Comments SODIUM (test code = NA) 141 mEq/L 134-147 N POTASSIUM (test code = 4.0 mEq/L 3.4-5.0 N K) CHLORIDE (test code = 104 mEq/L 100-108 N CL) CARBON DIOXIDE (test 29 mEq/l 21-33 N code = CO2) ANION GAP (test code = 12 0-20 N GAP) GLUCOSE (test code = 283 mg/dL 70-110 H GLU) BLOOD UREA NITROGEN 16 mg/dL 7-18 (test code = BUN) GLOMERULAR FILTRATION 62.9 90-95 L Units of measure = RATE (test code = GFR) ml/mi n/1.73 m2 CREATININE (test code = 1.1 mg/dL 0.6-1.3 N CREAT) CALCIUM (test code = 9.0 mg/dL 8.0-10.5 N CA) [id number] 08:08:00 Test Item Value Reference Range Interpretation Comments MAGNESIUM (test code = MAG) 1.78 mg/dL 1.80-2.40 L CBC W/AUTO [id number] 07:10:00 Test Item Value Reference Range Interpretation Comments WHITE BLOOD CELL (test code = 7.5 x10 3/uL 4.5-11.0 N WBC) RED BLOOD CELL (test code = 3.39 x10 6/uL 3.54-5.02 L RBC) HEMOGLOBIN (test code = HGB) 9.8 g/dL 11.0-15.0 L HEMATOCRIT (test code = HCT) 32.0 % 33.0-45.0 L MEAN CELL VOLUME (test code = 94.4 fL 81.0-99.0 N MCV) MEAN CELL HGB (test code = MCH) 28.9 pg 27.0-33.0 N MEAN CELL HGB CONCETRATION 30.6 g/dL 33.0-37.0 L (test code = MCHC) RED CELL DISTRIBUTION WIDTH CV 13.7 % 11.5-14.5 N (test code = RDW) RED CELL DISTRIBUTION WIDTH SD 47.3 fL 37.0-54.0 N (test code = RDW-SD) PLATELET COUNT (test code = 235 x10 3/uL 150-400 N PLT) MEAN PLATELET VOLUME (test code 11.2 fL 7.0-9.0 H = MPV) NEUTROPHIL % (test code = NT%) 53.3 % 56.0-77.0 L IMMATURE GRANULOCYTE % (test 0.4 % 0.0-2.0 N code = IG%) LYMPHOCYTE % (test code = LY%) 32.9 % 14.0-32.0 H MONOCYTE % (test code = MO%) 7.8 % 4.8-9.0 N EOSINOPHIL % (test code = EO%) 4.5 % 0.3-3.7 H BASOPHIL % (test code = BA%) 1.1 % 0.0-2.0 N NUCLEATED RBC % (test code = 0.0 % 0-0 N NRBC%) NEUTROPHIL # (test code = NT#) 4.01 x10 3/uL 2.0-7.6 N IMMATURE GRANULOCYTE # (test 0.03 x10 3/uL 0.00-0.03 N code = IG#) LYMPHOCYTE # (test code = LY#) 2.48 x10 3/uL 1.0-3.8 N MONOCYTE # (test code = MO#) 0.59 x10 3/uL 0.1-0.8 N EOSINOPHIL # (test code = EO#) 0.34 x10 3/uL 0.0-0.2 H BASOPHIL # (test code = BA#) 0.08 x10 3/uL 0.0-0.2 N NUCLEATED RBC # (test code = 0.00 x10 3/uL 0.0-0.1 N NRBC#) MANUAL DIFF REQUIRED (test code NO = MDIFF) GLUCOSE [id number] 20:09:00 Test Item Value Reference Range Interpretation Comments GLUCOSE BEDSIDE (test 237 MG/DL 70-110 H [facility] med by certified code = GLUBED) 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 [facility] [id number] 09:13:00 Test Item Value Reference Range Interpretation Comments HGBA1C% (test code = HGBA1C%) 13.4 %A1C 4.8-6.0 H COMPREHENSIVE METABOLIC [id number] 08:24:00 Test Item Value Reference Range Interpretation Comments SODIUM (test code = NA) 142 mEq/L 134-147 N POTASSIUM (test code = 3.9 mEq/L 3.4-5.0 N K) CHLORIDE (test code = 105 mEq/L 100-108 N CL) CARBON DIOXIDE (test 29 mEq/l 21-33 N code = CO2) ANION GAP (test code = 12 0-20 N GAP) GLUCOSE (test code = 223 mg/dL 70-110 H GLU) BLOOD UREA NITROGEN 11 mg/dL 7-18 N (test code = BUN) GLOMERULAR FILTRATION 79.3 90-95 L Units of measure = RATE (test code = GFR) ml/mi n/1.73 m2 CREATININE (test code = 0.9 mg/dL 0.6-1.3 N CREAT) TOTAL PROTEIN (test 6.4 g/dL 6.4-8.2 N code = PROT) ALBUMIN (test code = 3.10 g/dL 3.4-5.0 L ALB) CALCIUM (test code = 9.0 mg/dL 8.0-10.5 N CA) BILIRUBIN TOTAL (test 0.20 mg/dL 0.0-1.0 N code = BILT) SGOT/AST (test code = 13 IUnit/L 15-37 L AST) SGPT/ALT (test code = 9 IUnit/L 30-65 L ALT) ALKALINE PHOSPHATASE 62 IUnit/L 20-125 N TOTAL (test code = ALKP) COMMENTS: Fasting in AMLIPID PROFILE (CORONARY RISK)2021-08-08 08:24:00 Test Item Value Reference Range Interpretation Comments TRIGLYCERIDES (test 206 mg/dL 40-150 H code = TRIG) CHOLESTEROL (test 139 mg/dL <200 code = CHOL) CHOLESTEROL/HDL 4.14 RATIO 3.27-4.44 N RISK ASSOCIA IRMA WITH RATIO (test code = CHOL/HDL RATIOS: RISK CHOLHDL) MALE FEMALE1/2 AVERA GE 3.43 3.27AVERAGE 4.97 4.4 42X AVERAGE 9.55 7.053X AVER AGE 23.39 1 1.04 NOTE THAT THE R EFERENCE VALUE IS RELATE DTO RISK LEVELS RECOM MENDED BY THE NATL.HEA RT, LUNG, AND BLOOD INST. HDL CHOLESTEROL 33.6 mg/dL 39-96 L (test code = HDL) LIPOPROTEIN LDL 85.2 mg/dL 0-100 N <100 OPT [id number] (test code = LDL) NEAR OPTI MAL/ABOVE [id number] 89 HIGH>BE=431 VE RY HIGH*Guidelines provided by the National Choles terol EducationProgra m Adult Treatment Panel III COMMENTS: Fasting in [id number] 08:24:00 Test Item Value Reference Range Interpretation Comments PHOSPHOROUS (test code = PHOS) 5.2 MG/DL 2.5-4.9 H COMMENTS: Fasting in [id number] 08:24:00 Test Item Value Reference Range Interpretation Comments MAGNESIUM (test code = MAG) 1.69 mg/dL 1.80-2.40 L COMMENTS: Fasting in AMCBC W/AUTO [id number] 07:20:00 Test Item Value Reference Range Interpretation Comments WHITE BLOOD CELL (test code = 7.3 x10 3/uL 4.5-11.0 N WBC) RED BLOOD CELL (test code = 3.51 x10 6/uL 3.54-5.02 L RBC) HEMOGLOBIN (test code = HGB) 10.1 g/dL 11.0-15.0 L HEMATOCRIT (test code = HCT) 32.6 % 33.0-45.0 L MEAN CELL VOLUME (test code = 92.9 fL 81.0-99.0 N MCV) MEAN CELL HGB (test code = MCH) 28.8 pg 27.0-33.0 N MEAN CELL HGB CONCETRATION 31.0 g/dL 33.0-37.0 L (test code = MCHC) RED CELL DISTRIBUTION WIDTH CV 13.8 % 11.5-14.5 N (test code = RDW) RED CELL DISTRIBUTION WIDTH SD 46.4 fL 37.0-54.0 N (test code = RDW-SD) PLATELET COUNT (test code = 270 x10 3/uL 150-400 N PLT) MEAN PLATELET VOLUME (test code 11.1 fL 7.0-9.0 H = MPV) NEUTROPHIL % (test code = NT%) 60.4 % 56.0-77.0 N IMMATURE GRANULOCYTE % (test 0.3 % 0.0-2.0 N code = IG%) LYMPHOCYTE % (test code = LY%) 26.2 % 14.0-32.0 N MONOCYTE % (test code = MO%) 6.8 % 4.8-9.0 N EOSINOPHIL % (test code = EO%) 5.1 % 0.3-3.7 H BASOPHIL % (test code = BA%) 1.2 % 0.0-2.0 N NUCLEATED RBC % (test code = 0.0 % 0-0 N NRBC%) NEUTROPHIL # (test code = NT#) 4.42 x10 3/uL 2.0-7.6 N IMMATURE GRANULOCYTE # (test 0.02 x10 3/uL 0.00-0.03 N code = IG#) LYMPHOCYTE # (test code = LY#) 1.92 x10 3/uL 1.0-3.8 N MONOCYTE # (test code = MO#) 0.50 x10 3/uL 0.1-0.8 N EOSINOPHIL # (test code = EO#) 0.37 x10 3/uL 0.0-0.2 H BASOPHIL # (test code = BA#) 0.09 x10 3/uL 0.0-0.2 N NUCLEATED RBC # (test code = 0.00 x10 3/uL 0.0-0.1 N NRBC#) MANUAL DIFF REQUIRED (test code NO = MDIFF) - CT HEAD/BRAIN W/O [id number] 00:00:00 [facility] 1970 Sex: F Name: DANIA JANE [facility] : 1970 Age/S: 51 / F [address] Unit #: [id number] Loc: [place] [address] Phys: Hugo Finnegan MD Acct: [id number] Dis Date: Status: ADM IN PHONE #: [phone] Exam Date: 08/08/2021 1112 FAX #: [phone] Reason: left hemibody numbness, assess for interval isc EXAMS: CPT CODE: [id number] CT HEAD/BRAIN W/O CONT 80904 PROCEDURE INFORMATION: Exam: CT Head Without Contrast Exam date and time: 08/08/2021 11:07 AM Age: 51 years old Clinical indication: Other: Left hemibody numbness, 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 Radiation optimization: All CT scans at this facility use at least one of these dose optimization techniques: automated exposure control; mA and/or kV adjustment per patient size (includes targeted exams where dose is matched to clinical indication); or iterative reconstruction. Other technique: CT RADIATION DOSE DLP: 554.15 MGY-CM COMPARISON: CT HEAD/BRAIN W/O CONT 08/07/2021 11:48 AM FINDINGS: Brain: Involutionalchanges seen in the brain and cerebellum with chronic white matter small vessel ischemic disease. Chronic lacunar infarct in the right basal ganglia and left external capsule. There are no signs of intracranial hemorrhage, acute infarction, cerebral edema, mass occupying lesion, midline shift or intra or extra- axial fluid collections. Cerebral ventricles: No ventriculomegaly. Paranasal sinuses: Visualized sinuses are unremarkable. No fluid levels. Mastoid air cells: Visualized mastoid air cells are well aerated. Orbital cavities:Prior bilateral cataract surgery. Vasculature: Severe bilateral cavernous ICA atherosclerosis. Bones/joints: No fracture or destructive bone lesion. Soft tissues: Unremarkable. IMPRESSION: 1. No CT evidence of acute intracranial ischemia or hemorrhage. If there is a new, focal, persistent neurologic deficit, follow-up with diffusion-weighted MRI might be helpful. 2. Involutional change with chronic white matter small vessel ischemic disease. 3. Severe atherosclerosis. at 1154 Reported and signed by: Grayson Richey M.D. PAGE 1 Signed Report (CONTINUED) Name: DANIA JANE [facility] : 1970 Age/S: 51 / F [address] [place] [address] Unit #: [id number] Loc: [place] [address] Phys: Hugo Finnegan MD Acct: [id number] Dis Date: Status: ADM IN PHONE #: [phone] Exam Date: 08/08/2021 1112 FAX #: [phone] Reason: left hemibody numbness, assess for interval isc EXAMS: CPT CODE: [id number] CT HEAD/BRAIN W/O CONT 95424 <Continued> CC: Hugo Finneagn MD; Irma BLACKWOOD Technologist:RT Keisha(R)(CT) CTDI: DLP: Trnscb Date/Time: 08/08/2021 (1271) [email or web address] Orig Print D/T: S: 08/08/2021 (1154) PAGE 2 Signed ReportTROP-I HIGH [id number] 16:39:00 Test Item Value Reference Range Interpretation Comments TROP-I HIGH < 3 ng/L 0-34 N CAUTION: Units of the SENSITIVITY (test current te st methodology code = TROPIHS) (ng/L) diffe rfrom the prior test meth odology (ng/mL) by a fa ctor of 1000. 99t h Percentile Uppe r Reference Limit (URL): Fe males: 34 ng/LMales: 54 ng/L In order to distin guish acute elevations of h igh sensitivitytrop onin from other clinical conditions, the FourthUnive rsal Definition of M yocardial Infarction stressesclinica l assessment and the demonstration o f a rise and/orfall in s erial troponin result s above the URL. These resu lts were obtained using Siemens [employer] IM TnI Hreagent. Results from di fferent methodologies s hould not becompared to o ne another as quantitative results and URLs mayvar y by method. DRUGS OF ABUSE SCREEN [id number] 15:54:00 Test Item Value Reference Range Interpretation Comments URN COCAINE (test code NEGATIVE NEGATIVE = COCAURN) URN CANNABINOIDS (test NEGATIVE NEGATIVE code = CANNABURN) URN AMPHETAMINE (test NEGATIVE NEGATIVE code = AMPHETURN) URN BARBITURATE (test NEGATIVE NEGATIVE code = BARBITURN) URN BENZODIAZEPINE NEGATIVE NEGATIVE Cut-off v alue:200 (test code = BENZOURN) ng/mL URN OPIATES (test code NEGATIVE NEGATIVE Cut-o ff value:2000 = OPIATURN) ng/mL URN PHENCYCLIDINE (PCP) NEGATIVE NEGATIVE Cuto ffs:Barbiturates (test code = PHENCURN) 200 ng/mLBenzodiaze pines 200 ng/ mLTHC Cannabinoids 50 ng/mLOpiates(Mo rphine) 2000 ng/mLAmphetamin e 1000 ng/mLCocaine 300 ng/ mLPCP phencyclidine 25 ng/mL Unconf irmed screening resul ts shouldnot be us ed for non-medical pur poses. PLT RESPONSE TO [id number] 15:16:00 Test Item Value Reference Range Interpretation Comments PLT RESPONSE TO 350 ARU ASPIRIN (test code = Geri SLOAN) RangePre-Aspiri n 620-672 ARU>= 550 ARU - Platelet dysfunction consistent with aspirin has no t has not been detected.< 550 ARU - Platelet dysfun ction consistent with aspirin has be en detected.Result s should be interpreted in conjunction with otherlabor atory and clinical data a vailable to the clinician. Testing can only be perform ed if patient sample values arewithin the f ollowing ranges: Hematoc rit 29-56%, PlateletCount > 92,000/uL. Patient values outside of these rangeswil l be rejected by our instrumentaton. PLT RESPONSE TO [id number] 15:16:00 Test Item Value Reference Range Interpretation Comments PLT RESPONSE TO PLAVIX 174 PRU 182-335 L Value s <180 PRU are (test code = PLARAJ) specif ic evidence of a P2Y12 inhibitor effect. Testing can onl y be performed if pa tient sample values a re within the following r anges: Hematocrit 33-5 2%, Platelet Count 119,000-502,000 /uL. Patient values outside of theseranges will be rejected by our instrumentation . TROP-I HIGH [id number] 14:49:00 Test Item Value Reference Range Interpretation Comments TROP-I HIGH < 3 ng/L 0-34 N CAUTION: Units of the SENSITIVITY (test current te st methodology code = TROPIHS) (ng/L) diffe rfrom the prior test meth odology (ng/mL) by a fa ctor of 1000. 99t h Percentile Uppe r Reference Limit (URL): Fe males: 34 ng/LMales: 54 ng/L In order to distin guish acute elevations of h igh sensitivitytrop onin from other clinical conditions, the FourthUnive rsal Definition of M yocardial Infarction stressesclinica l assessment and the demonstration o f a rise and/orfall in s erial troponin result s above the URL. These resu lts were obtained using Siemens AtellKeisense IM TnI Hreagent. Results from di fferent methodologies s hould not becompared to o ne another as quantitative results and URLs mayvar y by method. BASIC METABOLIC [id number] 11:33:00 Test Item Value Reference Range Interpretation Comments SODIUM (test code = NA) 143 mEq/L 134-147 N POTASSIUM (test code = 4.1 mEq/L 3.4-5.0 N K) CHLORIDE (test code = 108 mEq/L 100-108 N CL) CARBON DIOXIDE (test 31 mEq/l 21-33 N code = CO2) ANION GAP (test code = 8 0-20 N GAP) GLUCOSE (test code = 175 mg/dL 70-110 H GLU) BLOOD UREA NITROGEN 11 mg/dL 7-18 N (test code = BUN) GLOMERULAR FILTRATION 79.3 90-95 L Units of measure = RATE (test code = GFR) ml/mi n/1.73 m2 CREATININE (test code = 0.9 mg/dL 0.6-1.3 N CREAT) CALCIUM (test code = 8.9 mg/dL 8.0-10.5 N CA) TROP-I HIGH [id number] 11:33:00 Test Item Value Reference Range Interpretation Comments TROP-I HIGH < 3 ng/L 0-34 N CAUTION: Units of the SENSITIVITY (test current te st methodology code = TROPIHS) (ng/L) diffe rfrom the prior test meth odology (ng/mL) by a fa ctor of 1000. 99t h Percentile Uppe r Reference Limit (URL): Fe males: 34 ng/LMales: 54 ng/L In order to distin guish acute elevations of h igh sensitivitytrop onin from other clinical conditions, the FourthUnive rsal Definition of M yocardial Infarction stressesclinica l assessment and the demonstration o f a rise and/orfall in s erial troponin result s above the URL. These resu lts were obtained using Siemens Atellica IM TnI Hreagent. Results from di candace methodologies s hould not becompared to o ne another as quantitative results and URLs mayvar y by method. PROTHROMBIN [id number] 11:18:00 Test Item Value Reference Range Interpretation Comments PROTHROMBIN TIME 11.4 SECONDS 9.3-12.9 N PATIENT (test code = PTP) INTERNATIONAL NORMAL 1.0 0.8-1.2 N TARGET RATIO (test code = INR BY IN DICATION INR) Indication INR1. Prophyl axis of venous thrombos is 2.0 - 3. 0 (orthopedic doris ana), Prophylaxis of venous thrombos is (other than hig h-risk surgery), Kya tment of Deep Vein Thrombosis/Pulm onary Embolism, Preve ntion of systemic emb olism - Tissue heart va lves, Acute Myocardia l Infarction (to prevent systemic embo lism), Valvular heart disease, Atri al Fibrillation, Bileaflet mecha nical valve in aortic position.2. Mec hanical prosthetic valv es (high risk), 2.5 - 3.5 Presence of Lupus Anticoagu lant or Antiphospholi pid Antibodies, Pre vention of systemic e mbolism - Acute Myocard ial Infarction (t o prevent recurre nt infarct). COMMENTS: Code Neuro: Call with results if INR greater than 1.7 or PT greaterComment: [id number]: Code Neuro: Call with results if PTT greater than 40THROMBOPLASTIN TIME [id number] 11:18:00 Test Item Value Reference Range Interpretation Comments THROMBOPLASTIN TIME 32.9 Seconds 25.0-39.5 N Ther apeutic PARTIAL (test code = Range: 50.4 - 88.3 PTT) Seconds Effective 08/07/2018 COMMENTS: Code Neuro: Call with results if INR greater than 1.7 or PT greaterComment: [id number]: Code Neuro: Call with results if PTT greater than 40CBC W/O [id number] 11:11:00 Test Item Value Reference Range Interpretation Comments WHITE BLOOD CELL (test code = 8.3 x10 3/uL 4.5-11.0 N WBC) RED BLOOD CELL (test code = 3.47 x10 6/uL 3.54-5.02 L RBC) HEMOGLOBIN (test code = HGB) 10.0 g/dL 11.0-15.0 L HEMATOCRIT (test code = HCT) 32.1 % 33.0-45.0 L MEAN CELL VOLUME (test code = 92.5 fL 81.0-99.0 N MCV) MEAN CELL HGB (test code = MCH) 28.8 pg 27.0-33.0 N MEAN CELL HGB CONCETRATION 31.2 g/dL 33.0-37.0 L (test code = MCHC) RED CELL DISTRIBUTION WIDTH CV 13.5 % 11.5-14.5 N (test code = RDW) RED CELL DISTRIBUTION WIDTH SD 45.5 fL 37.0-54.0 N (test code = RDW-SD) PLATELET COUNT (test code = 264 x10 3/uL 150-400 N PLT) MEAN PLATELET VOLUME (test code 10.8 fL 7.0-9.0 H = MPV) COMMENTS: Code Neuro: Call with results if platelet count is less than Comment: 100,000/mm3- XR CHEST 1 [id number] 00:00:00 [facility] 1970 Sex: F FAX: Amanda Parmar DO [phone] Seth: St: [facility] FAX: Irma Zuleta [phone] Name: DANIA JANE [facility] Germf[place] : 1970 Age/S: 51/F [address] [place], [place] [address] Unit #: [id number] Loc: [place] [address] Phys: Amanda Bailey DOAcct: [id number] Dis Date: Status: REG ER PHONE #: [phone] Exam Date: 08/07/2021 1059 FAX #: [phone] Reason: stroke EXAMS: CPT CODE: [id number] XR CHEST 1 V 32481 PROCEDURE INFORMATION: Exam: XR Chest Exam date and time: 08/07/2021 10:53 AM Age: 51 y ears old Clinical indication: Other: Stroke TECHNIQUE: Imaging protocol: XR of the chest. Views: 1 view. COMPARISON: CR XR CHEST 1V 07/10/2021 1:09 AM FINDINGS: Tubes, catheters and devices: Implantable loop recorder device overlying the right hemithorax. Interval nasogastric tube removal. Lungs: Limited inspiration with central pulmonary vascular congestion. No edema or dense lobar consolidation. Pleural spaces: No pleural effusion. No pneumothorax. Heart/Mediastinum: Enlarged cardiac silhouette with prior median sternotomy. Bones/joints: Partially imaged anterior cervical fusion. No destructive bone lesions. IMPRESSION: 1. Limited inspiration with central pulmonary vascular congestion. 2. No edema or dense lobar consolidation. 3. 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 at 1141 Reported and signed by: Grayson Richey M.D. CC: Amanda Adamvenkata DO; Irma BLACKWOOD Technologist: Maggie Brown RT(R); RT Madhuri(R) Trnscrd Date/Time/By: 08/07/2021 (1141) : By: [email or web address] Orig Print D/T: S: 08/07/2021 (1141) PAGE 1 Signed Report- CT HEAD/BRAIN W/O [id number] 00:00:00 [facility] D[facility]IA J[facility] : 1970 Sex: F Name: DANIA JANE [facility] Jose Farmer : 1970 Age/S: 51 / F [address] [facility] Unit #: [id number] Loc: [place] [address] Phys: Amanda Bailey DO Acct: [id number] Dis Date: Status: REG ER PHONE #: [phone] Exam Date: 08/07/2021 1150 FAX #: [phone] Reason: right sided weakness EXAMS: CPT CODE: [id number] CT HEAD/BRAIN W/O CONT 43407 PROCEDURE INFORMATION: Exam: CT Head Without Contrast Exam date and time: 08/07/2021 11:48 AM Age: 51 years old Clinical indication: Other: Right sided weakness TECHNIQUE: Imaging protocol: Computed tomography of the head without contrast. Radiation optimization: All CT scans at this facility use at least one of these dose optimization techniques: automated exposure control; mA and/or kV adjustment per patient size (includes targeted exams where dose is matched to clinical indication); or iterative reconstruction. COMPARISON: CT HEAD/BRAIN W/O CONT 07/13/2021 12:57 PM FINDINGS: Brain: There are chronic lacunar infarcts within the left basal ganglia and at the junction of the proximal body ofthe right caudate nucleus and jimenez radiata. There are no extra-axial fluid collections. There is minimal cortical atrophy. Chronic lacunar infarcts are suspected in the right paramedian socrates. For further evaluation MR imaging can be performed. Findings presentpreviously. There is no acute cortical infarct, parenchymal hemorrhage or intra axial mass. Sellae and para sellae structures are normal for age. There is no tonsillar ectopia. Cerebral ventricles: No ventriculomegaly. Paranasal sinuses: Visualized sinuses are unremarkable. No fluid levels. Mastoid air cells: Visualized middle ear cavity, antrum and mastoid air cells are normally aerated. Bones/joints: Unremarkable. No acute fracture. Soft tissues: Unremarkable. IMPRESSION: There are chronic lacunar infarcts within the left basal ganglia and at the junction of the proximal body of the right caudate nucleus and jimenez radiata. There are no extra-axial fluid collections. There is minimal cortical atrophy. Chronic lacunar infarcts are suspected in the right paramedian socrates. For further evaluation MR imaging can be performed. Findings present previously. There is no parenchymal hemorrhage. There is no intra-axial mass. at 1224 Reported and signed by: Xiao Bray M.D. PAGE 1 Signed Report (CONTINUED) Name: DANIA JANE [facility] : 1970 Age/S: 51 / F [address] [place] [address] Unit #: [id number] Loc: [place] [address] Phys: Amanda Bailey DO Acct: [id number] Dis Date: Status: REG ER PHONE #: [phone] Exam Date: 08/07/2021 1150 FAX #: [phone] Reason: right sided weakness EXAMS: CPT CODE: [id number] CT HEAD/BRAIN W/O CONT 45394 <Continued> CC: Amanda Bailey DO;Irma BLACKWOOD Technologist:RT Keisha(R)(CT); ... CTDI: DLP: Trnscb Date/Time: 08/07/2021 (1223) [email or web address] Orig Print D/T: S: 08/07/2021 (122) PAGE 2 Signed Report- CT CEREBRAL PERF [id number] [facility]00[facility] 1970 Sex: F Name: DANIA JANE [facility] Jose Farmer : 1970 Age/S: 51 / F [address] [place] [address] Blvd Unit #: [id number] Loc: [place] [address] Phys: Amanda Bailey DO Acct: [id number] Dis Date: Status: REG ER PHONE #: [phone] Exam Date: 08/07/2021 1150 FAX #: [phone] Reason: right sided weakness EXAMS: CPT CODE: [id number] CT CEREBRAL PERF ANAL 95987 PROCEDURE INFORMATION: Exam: CT Angiography Head With Contrast, Arteriography Exam date andtime: 08/07/2021 11:50 AM Age: 51 years old Clinical indication: Other: Right sided weakness TECHNIQUE: Imaging protocol: Computed tomography angiography of the head with contrast. Exam focused on the arteries. 3D rendering (Not supervised by radiologist): MIP and/or 3D reconstructed images were created by the technologist. Radiation optimization: All CT scans at this facility use at least one of these dose optimization techniques: automat ed exposure control; mA and/or kV adjustment per patient size (includes targeted examswhere dose is matched to clinical indication); or iterative reconstruction. Contrast material: ISOVUE 370; Contrast volume: 100 ml; Contrast route: INTRAVENOUS (IV); COMPARISON: 1. CTA HEAD 07/09/2021 4:26 PM 2. CTA NECK 07/09/2021 4:26 PM FINDINGS: ANTERIOR CIRCULATION: Right internal carotid artery: Unremarkable. Intracranial segment is patent with no significant stenosis. No aneurysm. Right middle cerebral artery: The M1 segment is unremarkable. There is short segment severe stenosis of the inferior M2 branch with immediate reconstitution and distal patency. Right anterior cerebral artery: Unremarkable. No occlusion or significant stenosis. No aneurysm. Left internal carotid artery: Mild calcific plaque with mild stenosis. . Left middle cerebral artery: There is short segment moderate stenosis at the proximal M1 segment without occlusion and immediate rec onstitution to normal caliber. The distal left MCA branches are widely patent. Left anterior cerebral artery: Unremarkable. No occlusion or significant stenosis. No aneurysm. 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 Left vertebral artery: Unremarkable. No occlusion or significant stenosis. No aneurysm. Basilar artery: Mild stenosis of the mid segment. Right posterior cerebral artery: Multifocal dlne-zf-jpitumwg stenosis distally. Left posterior cerebral artery: Multifocal jjld-dz-wtdbcyzu PAGE 1 Signed Report (CONTINUED) Name: DANIA JANE [facility] Germfask : 1970 Age/S: 51 / F [address] [place] [address] Blvd Unit #: [id number] Loc: [place] [address] Phys: Amanda Bailey DO Acct: [id number] Dis Date: Status: REG ER PHONE #: [phone] Exam Date: 08/07/2021 1150 FAX #: [phone] Reason: right sided weakness EXAMS: CPT CODE: [id number] CT CEREBRAL PERF ANAL 19023 <Continued> stenosis proximally without occlusion. Brain: No definite mass, mass effect, or midline shift. Cerebral ventricles: No ventriculomegaly. Bones/joints: Unremarkable. No acute fracture. Soft tissues: Unremarkable. PROCEDURE INFORMATION: Exam: CT Angiography Neck With Contrast Exam date and time: 08/07/2021 11:50 AMAge: 51 years old Clinical indication: Other: Right sided weakness TECHNIQUE: Imaging protocol: Computed tomography angiography of the neck with contrast. 3D rendering (Not supervised by radiologist): MIP and/or 3D reconstructed images were created by the technologist. Radiation optimization: All CT scans at this facility use at least one of these dose optimization techniques: automated exposure control; mA and/or kV adjustment per patient size (includes targeted exams where dose is matched to clinical indication); or iterative reconstruction. Contrast material: ISOVUE 370; Contrast volume: 100 ml; Contrast route: INTRAVENOUS (IV); COMPARISON: 1. CTA HEAD 07/09/2021 4:26 PM 2. CTA NECK 07/09/2021 4:26 PM FINDINGS: Right common carotid artery: No stenosis. No dissection or occlusion. Right internal carotid artery: Mild plaque without flow limiting stenosis. Right external carotid artery: No occlusion or stenosis of the origin. Left common carotid artery: No stenosis. No dissection or occlusion. Left internal carotid artery: Mild plaque without flow limiting stenosis. Left external carotid artery: No occlusion or stenosis of the origin. Right vertebral artery: Stable severe stenosis ofthe origin of the right vertebral artery without occlusion Left vertebral artery: Unremarkable Thyroid: Multinodular thyroid the largest nodule in the left lobe measuring 1.7 cm, grossly stable the prior. PAGE 2 Signed Report (CONTINUED) Name: DANIA JANE [facility] : 1970 Age/S: 51 / F [address] [place] [address] Blvd Unit #: [id number] Loc: [place] [address] Phys: Amanda Bailey DO Acct: [id number] Dis Date: Status: REG ER PHONE #: [phone] Exam Date: 08/07/2021 1150 FAX #: [phone] Reason: right sided weakness EXAMS: CPT CODE: [id number] CT CEREBRAL PERF ANAL 43107 <Con tinued> Soft tissues: Normal. No significant soft tissue swelling. Bones/joints: Noacute fracture. Lungs: Visualized lungs are clear. REFERENCES: NASCET CRITERIA.The degree of internal carotid artery stenosis is based on NASCET criteria. Normal is no stenosis. Mild is less than 50% stenosis. Moderate is 50-69% stenosis. Severe is 70% to 99% stenosis. Total occlusion is no detectable patent lumen. IMPRESSION: CT Angiography Head With Contrast, Arteriography 1. Short segment moderate to severe stenosis of the proximal M1 segment of the left MCA stable. No occlusion, distal branches are widely patent. 2. Short segment moderate to severe stenosis of the O0dxsofxr of the right MCA is stable. No occlusion. 3. Multifocal ydiz-oq-gpskvjyb stenosis of the bilateral bottle washer machine are stable without anahi occlusion. CT Angiography Neck With Contrast 1. No cervical internal carotid artery stenosis per NASCET criteria. 2. Stable severe stenosis at the origin of the right vertebral artery without occlusion. 3. Stable multinodular thyroid. at 1235 Reported and signed by: Henrique Metz M.D. CC: Amanda Bailey DO; Irma BLACKWOOD Technologist:RT Keisha(R)(CT); ... CTDI: DLP: Trnscb Date/Time: 08/07/2021 (2687) [email or web address] Orig Print D/T: S: 08/07/2021 (9130) PAGE 3 Signed Report- CT ANGIO [id number] 00:00:00 [facility] 1970 Sex: F Name: DANIA JANE [facility] : 1970 Age/S: 51 / F [address] [place] [address] Unit #: [id number] Loc: [place] [address] Phys: Amanda Bailey DO Acct: [id number] Dis Date: Status: REG ER PHONE #: [phone] Exam Date: 08/07/2021 1150 FAX #: [phone] Reason: right sided weakness EXAMS: CPT CODE: [id number] CT ANGIO NECK 52448 PROCEDURE INFORMATION: Exam: CT Angiography Head With Contrast, Arteriography Exam date andtime: 08/07/2021 11:50 AM Age: 51 years old Clinical indication: Other: Right sided weakness TECHNIQUE: Imaging protocol: Computed tomography angiography of the head with contrast. Exam focused on the arteries. 3D rendering (Not supervised by radiologist): MIP and/or 3D reconstructed images were created by the technologist. Radiation optimization: All CT scans at this facility use at least one of these dose optimization techniques: automat ed exposure control; mA and/or kV adjustment per patient size (includes targeted examswhere dose is matched to clinical indication); or iterative reconstruction. Contrast material: ISOVUE 370; Contrast volume: 100 ml; Contrast route: INTRAVENOUS (IV); COMPARISON: 1. CTA HEAD 07/09/2021 4:26 PM 2. CTA NECK 07/09/2021 4:26 PM FINDINGS: ANTERIOR CIRCULATION: Right internal carotid artery: Unremarkable. Intracranial segment is patent with no significant stenosis. No aneurysm. Right middle cerebral artery: The M1 segment is unremarkable. There is short segment severe stenosis of the inferior M2 branch with immediate reconstitution and distal patency. Right anterior cerebral artery: Unremarkable. No occlusion or significant stenosis. No aneurysm. Left internal carotid artery: Mild calcific plaque with mild stenosis. . Left middle cerebral artery: There is short segment moderate stenosis at the proximal M1 segment without occlusion and immediate rec onstitution to normal caliber. The distal left MCA branches are widely patent. Left anterior cerebral artery: Unremarkable. No occlusion or significant stenosis. No aneurysm. 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 Left vertebral artery: Unremarkable. No occlusion or significant stenosis. No aneurysm. Basilar artery: Mild stenosis of the mid segment. Right posterior cerebral artery: Multifocal kurd-zf-qtptluwt stenosis distally. Left posterior cerebral artery: Multifocal ayew-kj-ppoqlhwf PAGE 1 Signed Report (CONTINUED) Name: DANIA JANE [facility] : 1970 Age/S: 51 / F [address] [place] [address] Unit #: [id number] Loc: [place] [address] Phys: Amanda Bailey DO Acct: [id number] Dis Date: Status: REG ER PHONE #: [phone] Exam Date: 08/07/2021 1150 FAX #: [phone] Reason: right sided weakness EXAMS: CPT CODE: [id number] CT ANGIO NECK 19543 <Continued> stenosis proximally without occlusion. Brain: No definite mass, mass effect, or midline shift. Cerebral ventricles: No ventriculomegaly. Bones/joints: Unremarkable. No acute fracture. Soft tissues: Unremarkable. PROCEDURE INFORMATION: Exam: CT Angiography Neck With Contrast Exam date and time: 08/07/2021 11:50 AMAge: 51 years old Clinical indication: Other: Right sided weakness TECHNIQUE: Imaging protocol: Computed tomography angiography of the neck with contrast. 3D rendering (Not supervised by radiologist): MIP and/or 3D reconstructed images were created by the technologist. Radiation optimization: All CT scans at this facility use at least one of these dose optimization techniques: automated exposure control; mA and/or kV adjustment per patient size (includes targeted exams where dose is matched to clinical indication); or iterative reconstruction. Contrast material: ISOVUE 370; Contrast volume: 100 ml; Contrast route: INTRAVENOUS (IV); COMPARISON: 1. CTA HEAD 07/09/2021 4:26 PM 2. CTA NECK 07/09/2021 4:26 PM FINDINGS: Right common carotid artery: No stenosis. No dissection or occlusion. Right internal carotid artery: Mild plaque without flow limiting stenosis. Right external carotid artery: No occlusion or stenosis of the origin. Left common carotid artery: No stenosis. No dissection or occlusion. Left internal carotid artery: Mild plaque without flow limiting stenosis. Left external carotid artery: No occlusion or stenosis of the origin. Right vertebral artery: Stable severe stenosis ofthe origin of the right vertebral artery without occlusion Left vertebral artery: Unremarkable Thyroid: Multinodular thyroid the largest nodule in the left lobe measuring 1.7 cm, grossly stable the prior. PAGE 2 Signed Report (CONTINUED) Name: DANIA JANE [facility] : 1970 Age/S: 51 / F [address] [place], [place] [address] Unit #: [id number] Loc: [place] [address] Phys: Amanda Bailey DO Acct: [id number] Dis Date: Status: REG ER PHONE #: [phone] Exam Date: 08/07/2021 1150 FAX #: [phone] Reason: right sided weakness EXAMS: CPT CODE: [id number] CT ANGIO NECK 75361 <Con tinued> Soft tissues: Normal. No significant soft tissue swelling. Bones/joints: Noacute fracture. Lungs: Visualized lungs are clear. REFERENCES: NASCET CRITERIA.The degree of internal carotid artery stenosis is based on NASCET criteria. Normal is no stenosis. Mild is less than 50% stenosis. Moderate is 50-69% stenosis. Severe is 70% to 99% stenosis. Total occlusion is no detectable patent lumen. IMPRESSION: CT Angiography Head With Contrast, Arteriography 1. Short segment moderate to severe stenosis of the proximal M1 segment of the left MCA stable. No occlusion, distal branches are widely patent. 2. Short segment moderate to severe stenosis of the S7juvowas of the right MCA is stable. No occlusion. 3. Multifocal foat-vw-jdimrdfp stenosis of the bilateral bottle washer machine are stable without anahi occlusion. CT Angiography Neck With Contrast 1. No cervical internal carotid artery stenosis per NASCET criteria. 2. Stable severe stenosis at the origin of the right vertebral artery without occlusion. 3. Stable multinodular thyroid. at 1235 Reported and signed by: Henrique Metz M.D. CC: Amanda Bailey DO; Irma BLACKWOOD Technologist:Emily Adler RT(R)(CT); ... 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 [facility] COMPREHENSIVE METABOLIC [id number] 07:48:00 Test Item Value Reference Range Interpretation Comments SODIUM (test code = NA) 137 mEq/L 134-147 N POTASSIUM (test code = 4.3 mEq/L 3.4-5.0 N K) CHLORIDE (test code = 98 mEq/L 100-108 L CL) CARBON DIOXIDE (test 32 mEq/l 21-33 N code = CO2) ANION GAP (test code = 11 0-20 N GAP) GLUCOSE (test code = 424 mg/dL 70-110 H GLU) BLOOD UREA NITROGEN 17 mg/dL 7-18 N (test code = BUN) GLOMERULAR FILTRATION 70.2 90-95 L Units of measure = RATE (test code = GFR) ml/mi n/1.73 m2 CREATININE (test code = 1.0 mg/dL 0.6-1.3 N CREAT) TOTAL PROTEIN (test 6.5 g/dL 6.4-8.2 N code = PROT) ALBUMIN (test code = 3.10 g/dL 3.4-5.0 L ALB) CALCIUM (test code = 9.4 mg/dL 8.0-10.5 N CA) BILIRUBIN TOTAL (test 0.20 mg/dL 0.0-1.0 code = BILT) SGOT/AST (test code = 21 IUnit/L 15-37 N AST) SGPT/ALT (test code = 17 IUnit/L 30-65 L ALT) ALKALINE PHOSPHATASE 123 IUnit/L 20-125 N TOTAL (test code = ALKP) [id number] 07:48:00 Test Item Value Reference Range Interpretation Comments PHOSPHOROUS (test code = PHOS) 3.3 MG/DL 2.5-4.9 N [id number] 07:48:00 Test Item Value Reference Range Interpretation Comments MAGNESIUM (test code = MAG) 1.77 mg/dL 1.80-2.40 L CALCIUM [id number] 07:48:00 Test Item Value Reference Range Interpretation Comments CALCIUM IONIZED (test code = FREDO) 1.24 MMOL/L 1.12-1.32 N CBC W/AUTO [id number] 07:38:00 Test Item Value Reference Range Interpretation Comments WHITE BLOOD CELL (test code = 9.5 x10 3/uL 4.5-11.0 N WBC) RED BLOOD CELL (test code = 3.89 x10 6/uL 3.54-5.02 N RBC) HEMOGLOBIN (test code = HGB) 11.3 g/dL 11.0-15.0 N HEMATOCRIT (test code = HCT) 35.6 % 33.0-45.0 N MEAN CELL VOLUME (test code = 91.5 fL 81.0-99.0 N MCV) MEAN CELL HGB (test code = MCH) 29.0 pg 27.0-33.0 N MEAN CELL HGB CONCETRATION 31.7 g/dL 33.0-37.0 L (test code = MCHC) RED CELL DISTRIBUTION WIDTH CV 13.2 % 11.5-14.5 N (test code = RDW) RED CELL DISTRIBUTION WIDTH SD 43.9 fL 37.0-54.0 N (test code = RDW-SD) PLATELET COUNT (test code = 228 x10 3/uL 150-400 N PLT) MEAN PLATELET VOLUME (test code 13.0 fL 7.0-9.0 H = MPV) NEUTROPHIL % (test code = NT%) 55.0 % 56.0-77.0 L IMMATURE GRANULOCYTE % (test 0.2 % 0.0-2.0 N code = IG%) LYMPHOCYTE % (test code = LY%) 32.7 % 14.0-32.0 H MONOCYTE % (test code = MO%) 6.6 % 4.8-9.0 N EOSINOPHIL % (test code = EO%) 4.2 % 0.3-3.7 H BASOPHIL % (test code = BA%) 1.3 % 0.0-2.0 N NUCLEATED RBC % (test code = 0.0 % 0-0 N NRBC%) NEUTROPHIL # (test code = NT#) 5.23 x10 3/uL 2.0-7.6 N IMMATURE GRANULOCYTE # (test 0.02 x10 3/uL 0.00-0.03 N code = IG#) LYMPHOCYTE # (test code = LY#) 3.11 x10 3/uL 1.0-3.8 N MONOCYTE # (test code = MO#) 0.63 x10 3/uL 0.1-0.8 N EOSINOPHIL # (test code = EO#) 0.40 x10 3/uL 0.0-0.2 H BASOPHIL # (test code = BA#) 0.12 x10 3/uL 0.0-0.2 N NUCLEATED RBC # (test code = 0.00 x10 3/uL 0.0-0.1 N NRBC#) MANUAL DIFF REQUIRED (test code NO = MDIFF) GLUCOSE [id number] 07:37:00 Test Item Value Reference Range Interpretation Comments GLUCOSE BEDSIDE (test 341 MG/DL 70-110 H Perfor med by certified code = GLUBED) 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 [facility] GLUCOSE [id number] 07:37:00 Test Item Value Reference Range Interpretation Comments GLUCOSE BEDSIDE (test 333 MG/DL 70-110 H Perfor med by certified code = GLUBED) 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 [facility] GLUCOSE [id number] 07:32:00 Test Item Value Reference Range Interpretation Comments GLUCOSE BEDSIDE (test 390 MG/DL 70-110 H Perfor med by certified code = GLUBED) 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 [facility] GLUCOSE [id number] 21:28:00 Test Item Value Reference Range Interpretation Comments GLUCOSE BEDSIDE (test 367 MG/DL 70-110 H Perfor med by certified code = GLUBED) 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 [facility] GLUCOSE [id number] 11:36:00 Test Item Value Reference Range Interpretation Comments GLUCOSE BEDSIDE (test 355 MG/DL 70-110 H Perfor med by certified code = GLUBED) 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 [facility] COMPREHENSIVE METABOLIC [id number] 08:15:00 Test Item Value Reference Range Interpretation Comments SODIUM (test code = NA) 144 mEq/L 134-147 N POTASSIUM (test code = 3.9 mEq/L 3.4-5.0 N K) CHLORIDE (test code = 106 mEq/L 100-108 N CL) CARBON DIOXIDE (test 32 mEq/l 21-33 N code = CO2) ANION GAP (test code = 10 0-20 N GAP) GLUCOSE (test code = 219 mg/dL 70-110 H GLU) BLOOD UREA NITROGEN 15 mg/dL 7-18 N (test code = BUN) GLOMERULAR FILTRATION 90.8 90-95 N Units of measure = RATE (test code = GFR) ml/mi n/1.73 m2 CREATININE (test code = 0.8 mg/dL 0.6-1.3 N CREAT) TOTAL PROTEIN (test 6.4 g/dL 6.4-8.2 N code = PROT) ALBUMIN (test code = 2.90 g/dL 3.4-5.0 L ALB) CALCIUM (test code = 9.8 mg/dL 8.0-10.5 N CA) BILIRUBIN TOTAL (test 0.30 mg/dL 0.0-1.0 N code = BILT) SGOT/AST (test code = 14 IUnit/L 15-37 L AST) SGPT/ALT (test code = 13 IUnit/L 30-65 L ALT) ALKALINE PHOSPHATASE 92 IUnit/L 20-125 N TOTAL (test code = ALKP) [id number] 08:15:00 Test Item Value Reference Range Interpretation Comments PHOSPHOROUS (test code = PHOS) 3.5 MG/DL 2.5-4.9 N [id number] 08:15:00 Test Item Value Reference Range Interpretation Comments MAGNESIUM (test code = MAG) 1.73 mg/dL 1.80-2.40 L CALCIUM [id number] 08:15:00 Test Item Value Reference Range Interpretation Comments CALCIUM IONIZED (test code = FREDO) 1.26 MMOL/L 1.12-1.32 N CBC W/AUTO [id number] 07:27:00 Test Item Value Reference Range Interpretation Comments WHITE BLOOD CELL (test code = 7.9 x10 3/uL 4.5-11.0 N WBC) RED BLOOD CELL (test code = 3.91 x10 6/uL 3.54-5.02 N RBC) HEMOGLOBIN (test code = HGB) 11.4 g/dL 11.0-15.0 N HEMATOCRIT (test code = HCT) 35.5 % 33.0-45.0 N MEAN CELL VOLUME (test code = 90.8 fL 81.0-99.0 N MCV) MEAN CELL HGB (test code = MCH) 29.2 pg 27.0-33.0 N MEAN CELL HGB CONCETRATION 32.1 g/dL 33.0-37.0 L (test code = MCHC) RED CELL DISTRIBUTION WIDTH CV 13.3 % 11.5-14.5 N (test code = RDW) RED CELL DISTRIBUTION WIDTH SD 43.7 fL 37.0-54.0 N (test code = RDW-SD) PLATELET COUNT (test code = 225 x10 3/uL 150-400 N PLT) MEAN PLATELET VOLUME (test code 12.4 fL 7.0-9.0 H = MPV) NEUTROPHIL % (test code = NT%) 43.6 % 56.0-77.0 L IMMATURE GRANULOCYTE % (test 0.3 % 0.0-2.0 N code = IG%) LYMPHOCYTE % (test code = LY%) 41.8 % 14.0-32.0 H MONOCYTE % (test code = MO%) 7.1 % 4.8-9.0 N EOSINOPHIL % (test code = EO%) 5.4 % 0.3-3.7 H BASOPHIL % (test code = BA%) 1.8 % 0.0-2.0 N NUCLEATED RBC % (test code = 0.0 % 0-0 N NRBC%) NEUTROPHIL # (test code = NT#) 3.46 x10 3/uL 2.0-7.6 N IMMATURE GRANULOCYTE # (test 0.02 x10 3/uL 0.00-0.03 N code = IG#) LYMPHOCYTE # (test code = LY#) 3.31 x10 3/uL 1.0-3.8 N MONOCYTE # (test code = MO#) 0.56 x10 3/uL 0.1-0.8 N EOSINOPHIL # (test code = EO#) 0.43 x10 3/uL 0.0-0.2 H BASOPHIL # (test code = BA#) 0.14 x10 3/uL 0.0-0.2 N NUCLEATED RBC # (test code = 0.00 x10 3/uL 0.0-0.1 N NRBC#) MANUAL DIFF REQUIRED (test code NO = MDIFF) COVID 19 Asymptomatic IH [id number] 06:41:00 Test Item Value Reference Range Interpretation Comments COVID 19 Asymptomatic Negative Negative A nega tive result is IH AG (test code = presumpti ve and should COVNONPUIAG) be confirmedwit h an FDA authorized mole cular assay, if neces camilo forpatient jeremias gement.A positive result does not rule out co-inf ections withother patho gens.This test detects austin th viable (live) and non-viable,SARS -CoV, and SARS-CoV-2. Echo t performance dep ends on theamount of vi claribel (antigen) in th e sample.This echo t has not been FDA cleare d or approved; the t est hasbeen authori zed by FDA under an Em ergency Use Authorizati on(EUA) for use by labo ratories certified under the CLIA thatmeet the requirements to perform moderate, high or waivedcomplexit y tests. - XR [id number] 00:00:00 [facility] 1970 Sex: F FAX: Natasha Montgomery [employer] BU[employer]DER [phone] Seth: St: ADM FAX: Irma Zuleta [phone] Name: DANIA JANE [facility] : 1970 Age/S: 51/F [address] [place] [address] Unit #: [id number] Loc: [address] [address] Phys: PollockLorettaNatasha Q APRNAcct: [id number] Dis Date: Status: ADM IN PHONE #: [phone] Exam Date: 07/15/2021 1414 FAX #: [phone] Reason: dysphagia, r/o stricture EXAMS: CPT CODE: [id number] XR ESOPHAGUS 41534 PROCEDURE INFORMATION: Exam: FL Esophagus Exam date and time: 07/15/2021 1:13 PM Age: 51 years old Clinical indication: Other: Dysphagia, R/O stricture TECHNIQUE: Imaging protocol: Radiologic examination of the esophagus. Guided with fluoroscopy. Exam supervised by facility personnel. COMPARISON: 1. XA XR SWLW FUNC W/C V 07/14/2021 1:20 PM 2. CR XR CHEST 1V 07/10/2021 1:09 AM RADIATION DOSE METRICS: Fluoroscopy time (seconds): seconds= 42 Number of fluoro spot images: images= 40 Reference air kerma (RAFA): 35.397 mGy FINDINGS: The esophagus is normal in course and caliber and is well distended. No esophageal narrowing or stricture. Laryngeal penetration is identified. The gastroesophageal junction is normally positioned. No delay in esophageal clearance of contrastinto the stomach. There are sternotomy wires and anterior fusion at C4-C5. IMPRESSION: 1. No esophageal stricture. 2. Normal esophageal motility. at 1457 Reported and signed by: Jaylene Lo M.D. 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 [facility] GLUCOSE [id number] 16:50:00 Test Item Value Reference Range Interpretation Comments GLUCOSE BEDSIDE (test 356 MG/DL 70-110 H Perfor med by certified code = GLUBED) 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 [facility] GLUCOSE [id number] 12:08:00 Test Item Value Reference Range Interpretation Comments GLUCOSE BEDSIDE (test 298 MG/DL 70-110 H Perfor med by certified code = GLUBED) 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 [facility] GLUCOSE [id number] 08:01:00 Test Item Value Reference Range Interpretation Comments GLUCOSE BEDSIDE (test 272 MG/DL 70-110 H Perfor med by certified code = GLUBED) 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 [facility] COMPREHENSIVE METABOLIC [id number] 07:20:00 Test Item Value Reference Range Interpretation Comments SODIUM (test code = NA) 143 mEq/L 134-147 N POTASSIUM (test code = 4.3 mEq/L 3.4-5.0 N K) CHLORIDE (test code = 106 mEq/L 100-108 N CL) CARBON DIOXIDE (test 28 mEq/l 21-33 N code = CO2) ANION GAP (test code = 13 0-20 N GAP) GLUCOSE (test code = 276 mg/dL 70-110 H GLU) BLOOD UREA NITROGEN 19 mg/dL 7-18 H (test code = BUN) GLOMERULAR FILTRATION 79.3 90-95 L Units of measure = RATE (test code = GFR) ml/mi n/1.73 m2 CREATININE (test code = 0.9 mg/dL 0.6-1.3 N CREAT) TOTAL PROTEIN (test 6.3 g/dL 6.4-8.2 L code = PROT) ALBUMIN (test code = 2.80 g/dL 3.4-5.0 L ALB) CALCIUM (test code = 9.2 mg/dL 8.0-10.5 N CA) BILIRUBIN TOTAL (test 0.30 mg/dL 0.0-1.0 code = BILT) SGOT/AST (test code = 21 IUnit/L 15-37 N AST) SGPT/ALT (test code = 13 IUnit/L 30-65 L ALT) ALKALINE PHOSPHATASE 95 IUnit/L 20-125 N TOTAL (test code = ALKP) [id number] 07:20:00 Test Item Value Reference Range Interpretation Comments PHOSPHOROUS (test code = PHOS) 3.4 MG/DL 2.5-4.9 N [id number] 07:20:00 Test Item Value Reference Range Interpretation Comments MAGNESIUM (test code = MAG) 2.02 mg/dL 1.80-2.40 N CALCIUM [id number] 07:20:00 Test Item Value Reference Range Interpretation Comments CALCIUM IONIZED (test code = FREDO) 1.26 MMOL/L 1.12-1.32 N CBC W/AUTO [id number] 07:18:00 Test Item Value Reference Range Interpretation Comments WHITE BLOOD CELL (test code = 7.5 x10 3/uL 4.5-11.0 N WBC) RED BLOOD CELL (test code = 3.58 x10 6/uL 3.54-5.02 N RBC) HEMOGLOBIN (test code = HGB) 10.2 g/dL 11.0-15.0 L HEMATOCRIT (test code = HCT) 32.9 % 33.0-45.0 L MEAN CELL VOLUME (test code = 91.9 fL 81.0-99.0 N MCV) MEAN CELL HGB (test code = MCH) 28.5 pg 27.0-33.0 N MEAN CELL HGB CONCETRATION 31.0 g/dL 33.0-37.0 L (test code = MCHC) RED CELL DISTRIBUTION WIDTH CV 13.6 % 11.5-14.5 N (test code = RDW) RED CELL DISTRIBUTION WIDTH SD 46.3 fL 37.0-54.0 N (test code = RDW-SD) PLATELET COUNT (test code = 215 x10 3/uL 150-400 N PLT) MEAN PLATELET VOLUME (test code 12.8 fL 7.0-9.0 H = MPV) NEUTROPHIL % (test code = NT%) 46.2 % 56.0-77.0 L IMMATURE GRANULOCYTE % (test 0.3 % 0.0-2.0 N code = IG%) LYMPHOCYTE % (test code = LY%) 39.3 % 14.0-32.0 H MONOCYTE % (test code = MO%) 7.3 % 4.8-9.0 N EOSINOPHIL % (test code = EO%) 5.7 % 0.3-3.7 H BASOPHIL % (test code = BA%) 1.2 % 0.0-2.0 N NUCLEATED RBC % (test code = 0.0 % 0-0 N NRBC%) NEUTROPHIL # (test code = NT#) 3.47 x10 3/uL 2.0-7.6 N IMMATURE GRANULOCYTE # (test 0.02 x10 3/uL 0.00-0.03 N code = IG#) LYMPHOCYTE # (test code = LY#) 2.95 x10 3/uL 1.0-3.8 N MONOCYTE # (test code = MO#) 0.55 x10 3/uL 0.1-0.8 N EOSINOPHIL # (test code = EO#) 0.43 x10 3/uL 0.0-0.2 H BASOPHIL # (test code = BA#) 0.09 x10 3/uL 0.0-0.2 N NUCLEATED RBC # (test code = 0.00 x10 3/uL 0.0-0.1 N NRBC#) MANUAL DIFF REQUIRED (test code NO = MDIFF) GLUCOSE [id number] 02:14:00 Test Item Value Reference Range Interpretation Comments GLUCOSE BEDSIDE (test 291 MG/DL 70-110 H Perfor med by certified code = GLUBED) 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 [facility] - XR SWLW FUNC W/C [id number] 00:00[facility]00 [facility] 1970 Sex: F FAX: Hugo Finnegan [phone] Seth: St: [facility] FAX: Irma ZuletaLorrie [phone] Name: DANIA JANE [facility] [place] : 1970 Age/S: 51/F [address] [place] [address] Unit #: [id number] Loc: [address] [address] Phys: [facility]gan [facility] [id number] Dis Date: Status: ADM IN PHONE #: [phone] Exam Date: 07/14/2021 1353 FAX #: [phone] Reason: DYSPHAGIA EXAMS: CPT CODE: [id number] XR SWLW FUN W/C V 34424 PROCEDURE INFORMATION: Exam: FL Swallowing Function with Cine or Video Exam date and time: 07/14/2021 1:20 PM Age: 51 years old Clinical indication: Aspiration , pneumonitis or bronchitis and choking sensation and reflux, gastroesophageal; Cause not specified; Additional info: Dysphagia TECHNIQUE: Imaging protocol: Swallowing function, with cineradiography/ videoradiograph. Guided with fluoroscopy. Exam supervised by facility personnel. Other contrast: Oral, barium, 100ml; COMPARISON: CTA NECK 07/09/2021 4:26 PM RADIATION DOSE METRICS: Fluoroscopy time (seconds): 286.8 Number of fluoro spot images: 7 Reference air kerma (RAFA): 14.61 mGy FINDINGS: Advanced practice providers: Nico Harmon PA-C Assistants: See also separate speech pathology report. Procedure summary: Normal oropharyngeal coordination with reduced transit. Delayed swallow reflex. Vallecular pooling with all consistencies. Pyriform pooling band residual noted with all consistencies. Laryngeal penetration identified with thin consistency. Mild aspiration identified with thin consistency, improved with chin tuck. No cough observed with aspiration. Reflux of swallowed material noted to the level of the pyriform sinus from the upper esophageal segment. IMPRESSION: 1. Silent aspiration identified with thin consistency, improved with chin tuck. 2. Reflux noted from the upper esophagus to the level of pyriform sinus. Further evaluation can be obtained with esophagram, per clinical indication. 3. Please see concurrent speech pathology report for further detail. at 1500 Reported and signed by: Carmine Live M.D. PAGE 1 Signed Report (CONTINUED) FAX: Hugo Finnegan [phone] Seth: St: ADM FAX: Irma Zuleta Name: DANIA JANE [facility] : 1970 Age/S: 51/F [address] [place] [address] Unit #: [id number] Loc: G.[address] [place] [address] Phys: Hugo Finnegan MD Acct: [id number] Dis Date: Status: ADM IN PHONE #: [phone] Exam Date: 07/14/2021 1353 FAX #: [phone] Reason: DYSPHAGIA EXAMS: CPT CODE: [id number] XR SWLW FUNC W/C V 29379 <Continued> CC: Hugo Finnegan MD; Irma BLACKWOOD Technologist: Lynda HopeRT(R) Trnscrd Date/Time/By: 07/14/2021 (1499) : By: [email or web address] Orig Print D/T: S: 07/14/2021 (1499) PAGE 2 Signed ReportGLUCOSE [id number] 19:55:00 Test Item Value Reference Range Interpretation Comments GLUCOSE BEDSIDE (test 240 MG/DL 70-110 H Perfor med by certified code = GLUBED) 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 [facility] GLUCOSE [id number] 17:02:00 Test Item Value Reference Range Interpretation Comments GLUCOSE BEDSIDE (test 168 MG/DL 70-110 H Perfor med by certified code = GLUBED) 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 [facility] GLUCOSE [id number] 12:15:00 Test Item Value Reference Range Interpretation Comments GLUCOSE BEDSIDE (test 283 MG/DL 70-110 H Perfor med by certified code = GLUBED) 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 [facility] - SP INT CAROTID ANGIO [id number] 09:13:00 [facility] 1970 Sex: F FAX: Amanda Parmar DO [phone] Seth: St: [facility] FAX: Irma Zuleta [phone] Name: MADELINE JANENA [facility] : 1970 Age/S: 51/F [address] [place] [address] Blvd Unit #: [id number] Loc: [address] [place], [place] [address] Phys: Amanda Bailey DOAcct: [id number] Dis Date: Status: ADM IN PHONE #: Exam Date: 07/09/2021 1846 FAX #: Reason: STROKE EXAMS: CPT CODE: [id number] SP INT CAROTID ANGIO UNI 39220 Date of procedure: 07/09/2021 Indications for surgery: The patient's a 51-year-old woman with past medical history of hypertension, coronary artery disease status post surgery, hyperlipidemia, diabetes mellitus on dual antiplatelet therapy. She presented with altered mentation quadriparesis and gaze deviation. Symptoms were concerning for posterior circulation large vessel occlusion stroke. CT CT angiography was attempted and CT demonstrated no evidence of intracranial hemorrhage however CT angiography was nondiagnostic due to poor IV access. Decision was made to proceed with cerebral angiography for better evaluation of intracranial vasculature to allow treatment planning and with placement for central venous catheter for administration of medications and IV access. Consent: Emergency procedure was performed without written informed consent after discussions of indications, risks, benefits and alternatives of the procedure. The risks included but were not limited to: , disability, stroke, intracranial hemorrhage, extracranial hemorrhage, ischemic limb, vessel injury, bleeding, infection, nephropathy, radiation injury and procedural failure.Procedure timeout was performed with participation of all staff and surgeon. Preo perative diagnosis: Suspected posterior circulation ischemic stroke Altered mental status Postoperative diagnosis Intracranial atherosclerotic disease Operation/procedures: 38314 ultrasound guidance for vascular access Diagnostic cerebral angiogram: 07602 left vertebral artery, cranial, PA, lateral Bilateral common carotid artery, cervical, PA, lateral [id number] bilateral internal carotid artery, cranial, PA, lateral G0269 vascular closure device femoral arteriotomy using Vascade Surgeon(s): Gadiel Howe MD PAGE 1 Signed Report (CONTINUED) FAX: Amanda Parmar DO [phone] Seth: St: ADM FAX: Irma Zuleta [phone] Name: DANIA JANE [facility] : 1970 Age/S: 51/F [address] [place] [address] Blvd Unit #: [id number] Loc: [address] [place], [place] [address] Phys: Amanda Bailey DO Acct: [id number] Dis Date: Status: ADM IN PHONE #:Exam Date: 07/09/2021 1894 FAX #: Reason: STROKE EXAMS: CPT CODE: [id number] SP INT CAROTID ANGIO UNI 89992 <Continued> Attendance Secretary(s): Kasie Alvarado, RTR, Anesthesia/sedation: Monitored anesthesia care Estimated blood loss: Minimal less then 10 mL Urine output: No urinary catheter in place Specimens: None Implants: Vascade right common femoral arteriotomy TECHNIQUE: The patient was brought to the angiography suite and placed in the angiography table. Arterial access sites were prepped and draped in a sterile fashion. Right common femoral artery position was lo cated below the inguinal ligament using fluoroscopy, landmarks and palpation. Using ultrasound guidance a micropuncture needle was used to access the artery. Modified Seldinger technique was used to introduce the 5-Swedish sheath into the artery. Sheath placement was confirmed the sheath was connected to continuous bubble free heparinized saline flush. A 5-Swedish Vert guide catheter was then introduced over a Glidewire into the descending aorta, double flushed and connected to continuous bubble free heparinized saline flush. The catheter was repositioned into the left vertebral artery and selective angiography was performed. The catheter was repositioned into the right internal carotid artery and selective angiography was performed. The catheter was repositioned into the left internal carotid artery and selective angiography was performed. The catheter was then removed. Arteriotomy: PAGE 2 Signed Report (CONTINUED) FAX: Amanda Parmar DO [phone] Seth: St: [facility] FAX: Irma Zuleta [phone] -- Name: DANIA JANE [facility] : 1970 Age/S: 51/F [address] [place] [address] Blvd Unit #: [id number] Loc: [address] [place], [place] [address] Phys: Amanda Bailey DO Acct: [id number] Dis Date: Status: ADM IN PHONE #: Exam Date: 07/09/2021 1846 FAX #: Reason: STROKE EXAMS: CPT CODE: [id number] SP INT CAROTID ANGIO UNI 43027 <Continued> Sheath placement was confirmed in the common femoral artery. The sheath was removed and we attempted to insert a Angio-Seal device however the exchange sheath would not pass through the subcutaneous tissue. We then removed the Angio-Seal device and a Vascade vascular closure devicewas deployed which resulted in hemostasis without hematoma. A sterile dressing was applied tothe arteriotomy site. There were no complications of the procedure. The patient was transferred to the hospital bed in a neurologically unchanged condition. was present for and performed the entire procedure, as well as interpretation of angiographic and radiographic images. Contrast Omnipaque 300mg Iodine/mL Complications: None FINDINGS: Right internal carotid artery, cranial, PA, lateral The petrous, lacerum, cavernous, clinoid, ophthalmic and communicatingsegments were patent but demonstrated mild atherosclerosis at the supraclinoid internal carotid artery. The ophthalmic artery was normal. The anterior choroidal artery was normal. The middle cerebral artery was abnormal due to a high-grade atherosclerotic stenosis of the superior division of the middle cerebral artery at the M1 M2 junction. The anterior cerebral arter y also demonstrated distal atherosclerotic stenosis. The anterior communicating artery was nonvisualized. The transit times were normal. The venous phase were normal.Left vertebral artery, cranial, PA, lateral The vertebral artery was dominant. The V3 and V4 segments were normal. The posterior inferior cerebellar artery was normal. The bilateral anterior-inferior cerebellar arteries, superior cerebellar arteries, posterior cerebral arteries and the basilar artery were visualized with diffuse intracranial atherosclerosis without high-grade stenosis. The intracranial post-PICA right vertebral artery was visualized with intracranial atherosclerotic disease. The PAGE 3 Signed Report (CONTINUED) FAX: Amanda Parmar DO [phone] Seth: St: ADM FAX: Susanna ClarkIrma Gregg [phone] Name: DANIA JANE [facility] :1970 Age/S: 51/F [address] [place] [address] Blvd Unit #: [id number] Loc: [place] [address] Phys: NetoAmanda hastings DO Acct: [id number] Dis Date: Status: ADM IN PHONE #: Exam Date: 07/09/2021 1849 FAX #: Reason: STROKE EXAMS: CPT CODE: [id number] SP INT CAROTID ANGIO UNI 54349 <Continued> transit times were normal. The venous phases were normal.Left internal carotid artery, cranial, PA, lateral The petrous, lacerum, cavernous, clinoid, ophthalmic and communicating segments were visualized with intracranial atherosclerosis that was mild and the supraclinoid segment. The ophthalmic artery was normal. The anterior choroidal artery was normal. The middle cerebral artery was normal. The anterior cerebral artery was normal. The anterior communicating artery was nonvisualized. The transit times werenormal. The venous phase were normal. IMPRESSION: 1. No evidence of large vessel occlusion. 2. Intracranial atherosclerotic disease at is diffuse and mild forthe most part with focal high-grade stenosis in the superior division of the right middle cerebral artery at the M1 M2 junction. at 0913 Reported an d signed by: Gadiel Howe M.D. CC: Amanda Bailey DO; Irma BLACKWOOD Technologist: Kasie Alvarado RT(R) Trnscrd Date/Time/By: 07/13/2021 (0913) : By: Velasquez Orig Print D/T: S: 07/13/2021 (2555) PAGE 4 Signed ReportGLUCOSE [id number] 08:26:00 Test Item Value Reference Range Interpretation Comments GLUCOSE BEDSIDE (test 173 MG/DL 70-110 H Perfor med by certified code = GLUBED) 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 [facility] COMPREHENSIVE METABOLIC [id number] 07:59:00 Test Item Value Reference Range Interpretation Comments SODIUM (test code = NA) 147 mEq/L 134-147 N POTASSIUM (test code = 3.9 mEq/L 3.4-5.0 N K) CHLORIDE (test code = 110 mEq/L 100-108 H CL) CARBON DIOXIDE (test 27 mEq/l 21-33 N code = CO2) ANION GAP (test code = 14 0-20 N GAP) GLUCOSE (test code = 143 mg/dL 70-110 H GLU) BLOOD UREA NITROGEN 27 mg/dL 7-18 H (test code = BUN) GLOMERULAR FILTRATION 79.3 90-95 L Units of measure = RATE (test code = GFR) ml/mi n/1.73 m2 CREATININE (test code = 0.9 mg/dL 0.6-1.3 N CREAT) TOTAL PROTEIN (test 6.4 g/dL 6.4-8.2 N code = PROT) ALBUMIN (test code = 2.80 g/dL 3.4-5.0 L ALB) CALCIUM (test code = 9.3 mg/dL 8.0-10.5 N CA) BILIRUBIN TOTAL (test 0.50 mg/dL 0.0-1.0 N code = BILT) SGOT/AST (test code = 18 IUnit/L 15-37 N AST) SGPT/ALT (test code = 12 IUnit/L 30-65 L ALT) ALKALINE PHOSPHATASE 88 IUnit/L 20-125 N TOTAL (test code = ALKP) [id number] 07:59:00 Test Item Value Reference Range Interpretation Comments PHOSPHOROUS (test code = PHOS) 4.2 MG/DL 2.5-4.9 N [id number] 07:59:00 Test Item Value Reference Range Interpretation Comments MAGNESIUM (test code = MAG) 2.26 mg/dL 1.80-2.40 N CALCIUM [id number] 07:59:00 Test Item Value Reference Range Interpretation Comments CALCIUM IONIZED (test code = FREDO) 1.24 MMOL/L 1.12-1.32 N CBC W/AUTO [id number] 07:18:00 Test Item Value Reference Range Interpretation Comments WHITE BLOOD CELL (test code = 8.0 x10 3/uL 4.5-11.0 N WBC) RED BLOOD CELL (test code = 4.12 x10 6/uL 3.54-5.02 N RBC) HEMOGLOBIN (test code = HGB) 11.7 g/dL 11.0-15.0 N HEMATOCRIT (test code = HCT) 37.6 % 33.0-45.0 N MEAN CELL VOLUME (test code = 91.3 fL 81.0-99.0 N MCV) MEAN CELL HGB (test code = MCH) 28.4 pg 27.0-33.0 N MEAN CELL HGB CONCETRATION 31.1 g/dL 33.0-37.0 L (test code = MCHC) RED CELL DISTRIBUTION WIDTH CV 14.1 % 11.5-14.5 N (test code = RDW) RED CELL DISTRIBUTION WIDTH SD 47.8 fL 37.0-54.0 N (test code = RDW-SD) PLATELET COUNT (test code = 242 x10 3/uL 150-400 N PLT) MEAN PLATELET VOLUME (test code 12.3 fL 7.0-9.0 H = MPV) NEUTROPHIL % (test code = NT%) 50.0 % 56.0-77.0 L IMMATURE GRANULOCYTE % (test 0.1 % 0.0-2.0 N code = IG%) LYMPHOCYTE % (test code = LY%) 37.8 % 14.0-32.0 H MONOCYTE % (test code = MO%) 7.7 % 4.8-9.0 N EOSINOPHIL % (test code = EO%) 3.4 % 0.3-3.7 N BASOPHIL % (test code = BA%) 1.0 % 0.0-2.0 N NUCLEATED RBC % (test code = 0.0 % 0-0 N NRBC%) NEUTROPHIL # (test code = NT#) 4.02 x10 3/uL 2.0-7.6 N IMMATURE GRANULOCYTE # (test 0.01 x10 3/uL 0.00-0.03 N code = IG#) LYMPHOCYTE # (test code = LY#) 3.04 x10 3/uL 1.0-3.8 N MONOCYTE # (test code = MO#) 0.62 x10 3/uL 0.1-0.8 N EOSINOPHIL # (test code = EO#) 0.27 x10 3/uL 0.0-0.2 H BASOPHIL # (test code = BA#) 0.08 x10 3/uL 0.0-0.2 N NUCLEATED RBC # (test code = 0.00 x10 3/uL 0.0-0.1 N NRBC#) MANUAL DIFF REQUIRED (test code NO = MDIFF) - CT HEAD/BRAIN W/O [id number] 00[facility]00[facility]00 [facility] 1970 Sex: F Name: DANIA JANE [facility] : 1970 Age/S: 51 / F [address] [place] [address] Unit #: [id number] Loc: [place] [address] Phys: CindyJose ceja SKEIN TIER Acct: [id number] Dis Date: Status: ADM IN PHONE #: [phone] Exam Date: 07/13/2021 1302 FAX #: [phone] Reason: AMS EXAMS: CPT CODE: [id number] CT HEAD/BRAIN W/O CONT [id number] PROCEDURE INFORMATION: Exam: CT Head Without Contrast Exam date and time: 07/13/2021 12:57 PM Age: 51 years old Clinical indication: Altered mental status/memory loss; Additional info: AMS TECHNIQUE: Imaging protocol: Computed tomography of the head without contrast. Radiation optimization: All CT scans at this facility use at least one of these dose optimization techniques: automated exposure control; mA and/or kV adjustment per patient size (includes targeted exams where dose is matched to clinical indication); or iterative reconstruction. COMPARISON: CT HEAD/BRAIN W/O CONT 07/09/2021 4:18 PM FINDINGS: Brain: There is no intracerebral mass or hemorrhage and there is no discrete focusof acute ischemic injury or intracerebral trauma . There is no extracerebral collection or other intracranial trauma. Multiple, small, old lacunar infarcts are seen located in the right caudate head, left caudate body and in the right side of the socrates. All of these lesions could be seen on the examination July 09, 2021 and are unchanged. Moderate changes of chronic, microangiopathic, ischemic demyelination are advanced for the patient's age and suggest underlying risk factors such as diabetes, chronic hypertension and arteriosclerosis. Moderate and symmetrical expansion of the ventricles and extracerebral spaces is also advanced for the patient's age.. Cerebral ventricles: Moderate and symmetrical expansion of the ventricles spaces is slightly advanced for the patient's age. Paranasal sinuses: Visualized sinuses are unremarkable. No fluid levels. Mastoid air cells: Visualized mastoid air cells are well aerated. Bones/joints: The calvarium and facial bones are intact. Soft tissues: The orbital contents and nasopharynx are normal IMPRESSION: Multiple,small, old lacunar infarcts, unchanged since the study of July 09, 2021.. There isno evidence of any acute ischemic lesion, acute focus of trauma or other acute lesion of the brain and there is no extracerebral collection or other evidence of intracranial trauma. The orbits, paranasal sinuses, temporal bones and nasopharynx are normal and there has been no change since the examination of July 09, 2021. PAGE 1 Signed Report (CONTINUED) Name: DANIA JANE [facility] : 1970 Age/S: 51 / F [address] [place] [address] Unit #:[id number] Loc: [place] [address] Phys: Jose White SKEIN TIER Acct: [id number] Dis Date: Status: ADM IN PHONE #: [phone] Exam Date: 07/13/2021 1302 FAX #: [phone] Reason: AMS EXAMS: CPT CODE: [id number] CT HEAD/BRAIN W/O CONT [id number] <Continued> at 1320 Reported and signed by: Franklyn Luong M.D. CC: Irma BLACKWOOD; Jose White NP Technologist:Lacey Ontiveros, RT(R)(CT) CTDI: DLP: Trnscb Date/Time: 07/13/2021 (1320) [email or web address] Orig Print D/T: S: 07/13/2021 (1321) PAGE2 Signed ReportGLUCOSE [id number] 21:09:00 Test Item Value Reference Range Interpretation Comments GLUCOSE BEDSIDE (test 102 MG/DL 70-110 N Perfor med by certified code = GLUBED) 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 [facility] GLUCOSE [id number] 16:59:00 Test Item Value Reference Range Interpretation Comments GLUCOSE BEDSIDE (test 176 MG/DL 70-110 H Perfor med by certified code = GLUBED) 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 [facility] GLUCOSE [id number] 12:31:00 Test Item Value Reference Range Interpretation Comments GLUCOSE BEDSIDE (test 222 MG/DL 70-110 H Perfor med by certified code = GLUBED) 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 [facility] GLUCOSE [id number] 08:23:00 Test Item Value Reference Range Interpretation Comments GLUCOSE BEDSIDE (test 179 MG/DL 70-110 H Perfor med by certified code = GLUBED) 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 [facility] COMPREHENSIVE METABOLIC [id number] 07:46:00 Test Item Value Reference Range Interpretation Comments SODIUM (test code = NA) 149 mEq/L 134-147 H POTASSIUM (test code = 3.7 mEq/L 3.4-5.0 N K) CHLORIDE (test code = 109 mEq/L 100-108 H CL) CARBON DIOXIDE (test 28 mEq/l 21-33 N code = CO2) ANION GAP (test code = 16 0-20 N GAP) GLUCOSE (test code = 141 mg/dL 70-110 H GLU) BLOOD UREA NITROGEN 36 mg/dL 7-18 H (test code = BUN) GLOMERULAR FILTRATION 70.2 90-95 L Units of measure = RATE (test code = GFR) ml/mi n/1.73 m2 CREATININE (test code = 1.0 mg/dL 0.6-1.3 N CREAT) TOTAL PROTEIN (test 7.1 g/dL 6.4-8.2 N code = PROT) ALBUMIN (test code = 3.10 g/dL 3.4-5.0 L ALB) CALCIUM (test code = 9.2 mg/dL 8.0-10.5 N CA) BILIRUBIN TOTAL (test 0.40 mg/dL 0.0-1.0 N code = BILT) SGOT/AST (test code = 15 IUnit/L 15-37 N AST) SGPT/ALT (test code = 10 IUnit/L 30-65 L ALT) ALKALINE PHOSPHATASE 103 IUnit/L 20-125 N TOTAL (test code = ALKP) [id number] 07:46:00 Test Item Value Reference Range Interpretation Comments PHOSPHOROUS (test code = PHOS) 3.9 MG/DL 2.5-4.9 N [id number] 07:46:00 Test Item Value Reference Range Interpretation Comments MAGNESIUM (test code = MAG) 2.39 mg/dL 1.80-2.40 N CALCIUM [id number] 07:46:00 Test Item Value Reference Range Interpretation Comments CALCIUM IONIZED (test code = FREDO) 1.27 MMOL/L 1.12-1.32 N CBC W/AUTO [id number] 07:05:00 Test Item Value Reference Range Interpretation Comments WHITE BLOOD CELL (test code = 11.5 x10 3/uL 4.5-11.0 H WBC) RED BLOOD CELL (test code = 4.41 x10 6/uL 3.54-5.02 N RBC) HEMOGLOBIN (test code = HGB) 12.5 g/dL 11.0-15.0 N HEMATOCRIT (test code = HCT) 39.9 % 33.0-45.0 N MEAN CELL VOLUME (test code = 90.5 fL 81.0-99.0 N MCV) MEAN CELL HGB (test code = MCH) 28.3 pg 27.0-33.0 N MEAN CELL HGB CONCETRATION 31.3 g/dL 33.0-37.0 L (test code = MCHC) RED CELL DISTRIBUTION WIDTH CV 14.3 % 11.5-14.5 N (test code = RDW) RED CELL DISTRIBUTION WIDTH SD 47.8 fL 37.0-54.0 N (test code = RDW-SD) PLATELET COUNT (test code = 269 x10 3/uL 150-400 N PLT) MEAN PLATELET VOLUME (test code 12.3 fL 7.0-9.0 H = MPV) NEUTROPHIL % (test code = NT%) 60.5 % 56.0-77.0 N IMMATURE GRANULOCYTE % (test 0.2 % 0.0-2.0 N code = IG%) LYMPHOCYTE % (test code = LY%) 29.9 % 14.0-32.0 N MONOCYTE % (test code = MO%) 7.3 % 4.8-9.0 N EOSINOPHIL % (test code = EO%) 1.3 % 0.3-3.7 N BASOPHIL % (test code = BA%) 0.8 % 0.0-2.0 N NUCLEATED RBC % (test code = 0.0 % 0-0 N NRBC%) NEUTROPHIL # (test code = NT#) 6.98 x10 3/uL 2.0-7.6 N IMMATURE GRANULOCYTE # (test 0.02 x10 3/uL 0.00-0.03 N code = IG#) LYMPHOCYTE # (test code = LY#) 3.45 x10 3/uL 1.0-3.8 N MONOCYTE # (test code = MO#) 0.84 x10 3/uL 0.1-0.8 H EOSINOPHIL # (test code = EO#) 0.15 x10 3/uL 0.0-0.2 N BASOPHIL # (test code = BA#) 0.09 x10 3/uL 0.0-0.2 N NUCLEATED RBC # (test code = 0.00 x10 3/uL 0.0-0.1 N NRBC#) MANUAL DIFF REQUIRED (test code NO = MDIFF) GLUCOSE [id number] 21:07:00 Test Item Value Reference Range Interpretation Comments GLUCOSE BEDSIDE (test 156 MG/DL 70-110 H Perfor med by certified code = GLUBED) 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 [facility] GLUCOSE [id number] 17:10:00 Test Item Value Reference Range Interpretation Comments GLUCOSE BEDSIDE (test 216 MG/DL 70-110 H Perfor med by certified code = GLUBED) 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 [facility] GLUCOSE [id number] 12:24:00 Test Item Value Reference Range Interpretation Comments GLUCOSE BEDSIDE (test 145 MG/DL 70-110 H Perfor med by certified code = GLUBED) 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 [facility] GLUCOSE [id number] 08:35:00 Test Item Value Reference Range Interpretation Comments GLUCOSE BEDSIDE (test 315 MG/DL 70-110 H [facility] by certified code = GLUBED) 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 [facility] COMPREHENSIVE METABOLIC [id number] 07:46:00 Test Item Value Reference Range Interpretation Comments SODIUM (test code = NA) 147 mEq/L 134-147 N POTASSIUM (test code = 3.8 mEq/L 3.4-5.0 N K) CHLORIDE (test code = 108 mEq/L 100-108 N CL) CARBON DIOXIDE (test 27 mEq/l 21-33 N code = CO2) ANION GAP (test code = 16 0-20 N GAP) GLUCOSE (test code = 304 mg/dL 70-110 H GLU) BLOOD UREA NITROGEN 44 mg/dL 7-18 H (test code = BUN) GLOMERULAR FILTRATION 56.9 90-95 L Units of measure = RATE (test code = GFR) ml/mi n/1.73 m2 CREATININE (test code = 1.2 mg/dL 0.6-1.3 N CREAT) TOTAL PROTEIN (test 7.4 g/dL 6.4-8.2 N code = PROT) ALBUMIN (test code = 3.40 g/dL 3.4-5.0 N ALB) CALCIUM (test code = 9.6 mg/dL 8.0-10.5 N CA) BILIRUBIN TOTAL (test 0.40 mg/dL 0.0-1.0 N code = BILT) SGOT/AST (test code = 16 IUnit/L 15-37 N AST) SGPT/ALT (test code = 12 IUnit/L 30-65 L ALT) ALKALINE PHOSPHATASE 116 IUnit/L 20-125 N TOTAL (test code = ALKP) [id number] 07:46:00 Test Item Value Reference Range Interpretation Comments PHOSPHOROUS (test code = PHOS) 3.2 MG/DL 2.5-4.9 N [id number] 07:46:00 Test Item Value Reference Range Interpretation Comments MAGNESIUM (test code = MAG) 2.31 mg/dL 1.80-2.40 N T4 [id number] 07:46:00 Test Item Value Reference Range Interpretation Comments T4 FREE (test code = T4F) 1.4 ng/dL 0.77-1.61 N TSH REFLEX TO [id number] 07:46:00 Test Item Value Reference Range Interpretation Comments TSH REFLEX TO FT4 (test code = 1.72 IU/mL 0.42-5.47 N TSHREFLEX) CALCIUM [id number] 07:46:00 Test Item Value Reference Range Interpretation Comments CALCIUM IONIZED (test code = FREDO) 1.27 MMOL/L 1.12-1.32 N CBC W/AUTO [id number] 06:40:00 Test Item Value Reference Range Interpretation Comments WHITE BLOOD CELL (test code = 16.9 x10 3/uL 4.5-11.0 H WBC) RED BLOOD CELL (test code = 4.35 x10 6/uL 3.54-5.02 N RBC) HEMOGLOBIN (test code = HGB) 12.4 g/dL 11.0-15.0 N HEMATOCRIT (test code = HCT) 39.3 % 33.0-45.0 N MEAN CELL VOLUME (test code = 90.3 fL 81.0-99.0 N MCV) MEAN CELL HGB (test code = 28.5 pg 27.0-33.0 N MCH) MEAN CELL HGB CONCETRATION 31.6 g/dL 33.0-37.0 L (test code = MCHC) RED CELL DISTRIBUTION WIDTH CV 14.5 % 11.5-14.5 N (test code = RDW) RED CELL DISTRIBUTION WIDTH SD 47.7 fL 37.0-54.0 N (test code = RDW-SD) PLATELET COUNT (test code = 297 x10 3/uL 150-400 N PLT) MEAN PLATELET VOLUME (test 12.2 fL 7.0-9.0 H code = MPV) NEUTROPHIL % (test code = NT%) 78.6 % 56.0-77.0 H IMMATURE GRANULOCYTE % (test 0.5 % 0.0-2.0 N code = IG%) LYMPHOCYTE % (test code = LY%) 14.0 % 14.0-32.0 N MONOCYTE % (test code = MO%) 6.4 % 4.8-9.0 N EOSINOPHIL % (test code = EO%) 0.2 % 0.3-3.7 L BASOPHIL % (test code = BA%) 0.3 % 0.0-2.0 N NUCLEATED RBC % (test code = 0.0 % 0-0 N NRBC%) NEUTROPHIL # (test code = NT#) 13.25 x10 3/uL 2.0-7.6 H IMMATURE GRANULOCYTE # (test 0.08 x10 3/uL 0.00-0.03 H code = IG#) LYMPHOCYTE # (test code = LY#) 2.36 x10 3/uL 1.0-3.8 N MONOCYTE # (test code = MO#) 1.08 x10 3/uL 0.1-0.8 H EOSINOPHIL # (test code = EO#) 0.03 x10 3/uL 0.0-0.2 N BASOPHIL # (test code = BA#) 0.05 x10 3/uL 0.0-0.2 N NUCLEATED RBC # (test code = 0.00 x10 3/uL 0.0-0.1 N NRBC#) MANUAL DIFF REQUIRED (test NO code = MDIFF) GLUCOSE [id number] 05:42:00 Test Item Value Reference Range Interpretation Comments GLUCOSE BEDSIDE (test 293 MG/DL 70-110 H Perfor med by certified code = GLUBED) 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 [facility] GLUCOSE [id number] 00:06:00 Test Item Value Reference Range Interpretation Comments GLUCOSE BEDSIDE (test 220 MG/DL 70-110 H Perfor med by certified code = GLUBED) 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 [facility] GLUCOSE [id number] 20:14:00 Test Item Value Reference Range Interpretation Comments GLUCOSE BEDSIDE (test 272 MG/DL 70-110 H Perfor med by certified code = GLUBED) 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 [facility] GLUCOSE [id number] 16:51:00 Test Item Value Reference Range Interpretation Comments GLUCOSE BEDSIDE (test 293 MG/DL 70-110 H Perfor med by certified code = GLUBED) 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 [facility] URINALYSIS [id number] 13:40:00 Test Item Value Reference Range Interpretation Comments UA COLOR (test code = COLU) YELLOW YEL/STRAW UA APPEARANCE (test code = APPU) TURBID CLEAR A UA GLUCOSE DIPSTICK (test code = 2+ NEGATIVE A DGLUU) UA BILIRUBIN DIPSTICK (test code NEGATIVE NEGATIVE = BILU) UA KETONE DIPSTICK (test code = 1+ NEGATIVE A KETU) UA SPECIFIC GRAVITY (test code = 1.038 1.005-1.030 H SGU) UA BLOOD DIPSTICK (test code = 1+ NEGATIVE A ELVIRA) UA PH DIPSTICK (test code = TY) 5.0 5.0-7.0 N UA PROTEIN DIPSTICK (test code = 2+ NEGATIVE A PROU) UA UROBILINIOGEN DIPSTICK (test 0.2 mg/dL 0.2-1.0 code = URO) UA NITRITE DIPSTICK (test code = NEGATIVE NEGATIVE CARLOTA) UA LEUKOCYTE ESTERASE DIPSTICK 2+ NEGATIVE A (test code = LEUU) UA RBC (test code = RBCU) 4-10 RBC/HPF 0-3 UA WBC NO REFLEX (test code = >50 WBC/HPF 0-3 A WBCUCL) UA BACTERIA (test code = BACU) 4+ /HPF NONE SEEN A UA SQUAMOUS CELLS (test code = 0-5 /HPF NONE SEEN SQU) UA HYALINE CAST (test code = 6-10 /LPF NONE SEEN HYALU) UA MUCUS (test code = MUCU) 2+ /LPF NONE SEEN A UA AMORPHOUS SEDIMENT (test code TRACE /HPF NONE = AMORU) GLUCOSE [id number] 12:51:00 Test Item Value Reference Range Interpretation Comments GLUCOSE BEDSIDE (test 271 MG/DL 70-110 H Perfor med by certified code = GLUBED) 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 [facility] GLUCOSE [id number] 12:46:00 Test Item Value Reference Range Interpretation Comments GLUCOSE BEDSIDE (test 100 MG/DL 70-110 N Perfor med by certified code = GLUBED) 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 [facility] GLUCOSE [id number] 12:46:00 Test Item Value Reference Range Interpretation Comments GLUCOSE BEDSIDE (test 79 MG/DL 70-110 N Perfor med by certified code = GLUBED) 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 [facility] GLUCOSE [id number] 12:40:00 Test Item Value Reference Range Interpretation Comments GLUCOSE BEDSIDE (test 194 MG/DL 70-110 H Perfor med by certified code = GLUBED) 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 [facility] DRUGS OF ABUSE SCREEN [id number] 11:06:00 Test Item Value Reference Range Interpretation Comments URN COCAINE (test code NEGATIVE NEGATIVE = COCAURN) URN CANNABINOIDS (test NEGATIVE NEGATIVE code = CANNABURN) URN AMPHETAMINE (test NEGATIVE NEGATIVE code = AMPHETURN) URN BARBITURATE (test NEGATIVE NEGATIVE code = BARBITURN) URN BENZODIAZEPINE NEGATIVE NEGATIVE Cut-off v alue:200 (test code = BENZOURN) ng/mL URN OPIATES (test code NEGATIVE NEGATIVE Cut-o ff value:2000 = OPIATURN) ng/mL URN PHENCYCLIDINE (PCP) NEGATIVE NEGATIVE Cuto ffs:Barbiturates (test code = PHENCURN) 200 ng/mLBenzodiaze pines 200 ng/ mLTHC Cannabinoids 50 ng/mLOpiates(Mo rphine) 2000 ng/mLAmphetamin e 1000 ng/mLCocaine 300 ng/ mLPCP phencyclidine 25 ng/mL Unconf irmed screening resul ts shouldnot be us ed for non-medical pur poses. GLUCOSE [id number] 07:13:00 Test Item Value Reference Range Interpretation Comments GLUCOSE BEDSIDE (test 106 MG/DL 70-110 N Perfor med by certified code = GLUBED) 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 [facility] GLUCOSE [id number] 07:13:00 Test Item Value Reference Range Interpretation Comments GLUCOSE BEDSIDE (test 117 MG/DL 70-110 H Perfor med by certified code = GLUBED) 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 [facility] GLUCOSE [id number] 07:13:00 Test Item Value Reference Range Interpretation Comments GLUCOSE BEDSIDE (test 196 MG/DL 70-110 H Perfor med by certified code = GLUBED) 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 [facility] [id number] 07:11:00 Test Item Value Reference Range Interpretation Comments HGBA1C% (test code = HGBA1C%) > 14.0 %A1C 4.8-6.0 H COMPREHENSIVE METABOLIC [id number] 06:33:00 Test Item Value Reference Range Interpretation Comments SODIUM (test code = NA) 149 mEq/L 134-147 H POTASSIUM (test code = 3.4 mEq/L 3.4-5.0 K) CHLORIDE (test code = 110 mEq/L 100-108 H CL) CARBON DIOXIDE (test 27 mEq/l 21-33 code = CO2) ANION GAP (test code = 15 0-20 N GAP) GLUCOSE (test code = 122 mg/dL 70-110 H GLU) BLOOD UREA NITROGEN 34 mg/dL 7-18 H (test code = BUN) GLOMERULAR FILTRATION 56.9 90-95 L Units of measure = RATE (test code = GFR) ml/mi n/1.73 m2 CREATININE (test code = 1.2 mg/dL 0.6-1.3 N CREAT) TOTAL PROTEIN (test 8.0 g/dL 6.4-8.2 N code = PROT) ALBUMIN (test code = 3.60 g/dL 3.4-5.0 N ALB) CALCIUM (test code = 9.9 mg/dL 8.0-10.5 N CA) BILIRUBIN TOTAL (test 0.40 mg/dL 0.0-1.0 N code = BILT) SGOT/AST (test code = 13 IUnit/L 15-37 L AST) SGPT/ALT (test code = 11 IUnit/L 30-65 L ALT) ALKALINE PHOSPHATASE 127 IUnit/L 20-125 H TOTAL (test code = ALKP) COMMENTS: Fasting in AMLIPID PROFILE (CORONARY RISK)2021-07-10 06:33:00 Test Item Value Reference Range Interpretation Comments TRIGLYCERIDES (test 204 mg/dL 40-150 H code = TRIG) CHOLESTEROL (test 385 mg/dL <200 H code = CHOL) CHOLESTEROL/HDL 8.32 RATIO 3.27-4.44 H RISK ASSOCIA IRMA WITH RATIO (test code = CHOL/HDL RATIOS: CHOLHDL) RISK MALE FEMALE1/2 A VERAGE 3.43 3.27AVERAGE 4.97 4.[address] RAGE 23.39 11.04 NOTE THAT THE REFERENCE VALUE IS RELATEDTO RISK LEVELS RECOMMENDED BY THE NATL.HEART, ROULA G, AND BLOOD INST. HDL CHOLESTEROL 46.3 mg/dL 39-96 N (test code = HDL) LIPOPROTEIN LDL 351.6 mg/dL 0-100 H <100 (test code = LDL) [id number] -129 NEAR OPTIMAL/ABOVE [id number] 89 HIGH>ZV=720 VE RY HIGH*Guidelines provided by the National Choles terol EducationProgra m Adult Treatment Panel III COMMENTS: Fasting in AMCBC W/AUTO [id number] 06:21:00 Test Item Value Reference Range Interpretation Comments WHITE BLOOD CELL (test code = 16.7 x10 3/uL 4.5-11.0 H WBC) RED BLOOD CELL (test code = 4.81 x10 6/uL 3.54-5.02 N RBC) HEMOGLOBIN (test code = HGB) 13.9 g/dL 11.0-15.0 N HEMATOCRIT (test code = HCT) 42.3 % 33.0-45.0 N MEAN CELL VOLUME (test code = 87.9 fL 81.0-99.0 N MCV) MEAN CELL HGB (test code = 28.9 pg 27.0-33.0 N MCH) MEAN CELL HGB CONCETRATION 32.9 g/dL 33.0-37.0 L (test code = MCHC) RED CELL DISTRIBUTION WIDTH CV 14.0 % 11.5-14.5 N (test code = RDW) RED CELL DISTRIBUTION WIDTH SD 44.2 fL 37.0-54.0 N (test code = RDW-SD) PLATELET COUNT (test code = 358 x10 3/uL 150-400 N PLT) MEAN PLATELET VOLUME (test 12.2 fL 7.0-9.0 H code = MPV) NEUTROPHIL % (test code = NT%) 80.5 % 56.0-77.0 H IMMATURE GRANULOCYTE % (test 0.5 % 0.0-2.0 N code = IG%) LYMPHOCYTE % (test code = LY%) 11.1 % 14.0-32.0 L MONOCYTE % (test code = MO%) 7.7 % 4.8-9.0 N EOSINOPHIL % (test code = EO%) 0.0 % 0.3-3.7 L BASOPHIL % (test code = BA%) 0.2 % 0.0-2.0 N NUCLEATED RBC % (test code = 0.0 % 0-0 N NRBC%) NEUTROPHIL # (test code = NT#) 13.39 x10 3/uL 2.0-7.6 H IMMATURE GRANULOCYTE # (test 0.09 x10 3/uL 0.00-0.03 H code = IG#) LYMPHOCYTE # (test code = LY#) 1.85 x10 3/uL 1.0-3.8 N MONOCYTE # (test code = MO#) 1.28 x10 3/uL 0.1-0.8 H EOSINOPHIL # (test code = EO#) 0.00 x10 3/uL 0.0-0.2 N BASOPHIL # (test code = BA#) 0.04 x10 3/uL 0.0-0.2 N NUCLEATED RBC # (test code = 0.00 x10 3/uL 0.0-0.1 N NRBC#) MANUAL DIFF REQUIRED (test NO code = MDIFF) GLUCOSE [id number] 04:59:00 Test Item Value Reference Range Interpretation Comments GLUCOSE BEDSIDE (test 244 MG/DL 70-110 H Perfor med by certified code = GLUBED) 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 [facility] GLUCOSE [id number] 04:59:00 Test Item Value Reference Range Interpretation Comments GLUCOSE BEDSIDE (test 291 MG/DL 70-110 H Perfor med by certified code = GLUBED) 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 [facility] GLUCOSE [id number] 04:59:00 Test Item Value Reference Range Interpretation Comments GLUCOSE BEDSIDE (test 389 MG/DL 70-110 H Perfor med by certified code = GLUBED) 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 [facility] GLUCOSE [id number] 04:59:00 Test Item Value Reference Range Interpretation Comments GLUCOSE BEDSIDE (test 392 MG/DL 70-110 H Perfor med by certified code = GLUBED) 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 [facility] GLUCOSE [id number] 01:08:00 Test Item Value Reference Range Interpretation Comments GLUCOSE BEDSIDE (test 448 MG/DL 70-110 H Perfor med by certified code = GLUBED) 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 [facility] GLUCOSE [id number] 01:08:00 Test Item Value Reference Range Interpretation Comments GLUCOSE BEDSIDE (test 461 MG/DL 70-110 H Perfor med by certified code = GLUBED) 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 [facility] - XR CHEST 1 [id number] 00:00:00 [facility] 1970 Sex: F FAX: Honorio Gillette MD Seth: St: ADM FAX: Irma Zuleta [phone] Name: DANIA JANE [facility] : 1970 Age/S: 51/F [address] [place] [address] Unit #: [id number] Loc: G.M313 [place] [address] [id number] Dis Date: Status: ADM IN PHONE #: [phone] Exam Date: 07/10/2021111 FAX #: [phone] Reason: NG PLACEMENT EXAMS: CPT CODE: [id number] XR CHEST 1 V [id number] PROCEDURE INFORMATION: Exam: XR Chest Exam date and time: 07/10/2021 1:09 AM Age: 51 years old Clinical indication: Other: Ng placement TECHNIQUE: Imaging protocol: XR of the chest. Views: 1 view. COMPARISON: CR XR CHEST 1V 07/09/2021 7:33 PM FINDINGS: Tubes, catheters and devices: Nasogastric/feeding tube extending beneath the diaphragm off the margin of the examination. Lungs: Mildly decreasing pulmonary inflation as sociated with a mildly elevated right hemidiaphragm and minimal left mid lung subsegmental atelectasis. No consolidation to suggest pneumonia. Pleural spaces: Unremarkable. No pleural effusion. No pneumothorax. Heart/Mediastinum: Stable mild cardiomegaly status post median sternotomy with suspected loop recorder placement. Bones/joints: No acute osseous abnormality. IMPRESSION: 1. Stable mild cardiomegaly status post median sternotomy with suspected loop recorder placement. 2. Mildly decreasing pulmonary inflation associated with a mildly elevated right hemidiaphragm and minimal left mid lung subsegmental atelectasis. No consolidation to suggest pneumonia. at 0130 Reported and signed by: Nawaf Land M.D. CC: Honorio Pike MD; Irma BLACKWOOD Technologist: Latanya Lynch RT(R) Trnscrd Date/Time/By: 2 (129) : By: [email or web address] Orig Print D/T: S: 07/10/2021 (129) PAGE 1 Signed ReportGLUCOSE BEDSIDE 2021-07-09 22:15:00 Test Item Value Reference Range Interpretation Comments GLUCOSE BEDSIDE (test 497 MG/DL 70-110 H Perfor med by certified code = GLUBED) 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 [facility] GLUCOSE [id number] 22:15:00 Test Item Value Reference Range Interpretation Comments GLUCOSE BEDSIDE (test 483 MG/DL 70-110 H Perfor med by certified code = GLUBED) 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 [facility] GLUCOSE [id number] 20:53:00 Test Item Value Reference Range Interpretation Comments GLUCOSE BEDSIDE (test 488 MG/DL 70-110 H Perfor med by certified code = GLUBED) 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 [facility] BASIC METABOLIC [id number] 19:39:00 Test Item Value Reference Range Interpretation Comments SODIUM (test code = NA) 139 mEq/L 134-147 N POTASSIUM (test code = 4.8 mEq/L 3.4-5.0 N K) CHLORIDE (test code = 100 mEq/L 100-108 N CL) CARBON DIOXIDE (test 18 mEq/l 21-33 L code = CO2) ANION GAP (test code = 26 0-20 H GAP) GLUCOSE (test code = 561 mg/dL 70-110 HH Critica l result GLU) called to Adalgisa SANDHU [email or web address] at [phone] 07/09/21Nlatha r ead back resut and tech confirmed it's correct? Y BLOOD UREA NITROGEN 22 mg/dL 7-18 H (test code = BUN) GLOMERULAR FILTRATION 51.8 90-95 L Units of measure = RATE (test code = GFR) ml/mi n/1.73 m2 CREATININE (test code = 1.3 mg/dL 0.6-1.3 N CREAT) CALCIUM (test code = 9.6 mg/dL 8.0-10.5 N CA) TROP-I HIGH [id number] 19:39:00 Test Item Value Reference Range Interpretation Comments TROP-I HIGH 20 ng/L 0-34 N CAUTION: Units of the SENSITIVITY (test current te st methodology code = TROPIHS) (ng/L) diffe rfrom the prior test methodolog y (ng/mL) by a factor of 1000. 99th Percentile Upper Reference Limit (URL): Females: 34 ng/LMales: 54 ng/L In order to distin guish acute elevations of h igh sensitivitytrop onin from other clinical conditions, the FourthUnive rsal Definition of M yocardial Infarction stre ssesclinical assessment and the demonstration o f a rise and/orfall in s erial troponin result s above the URL. These resu lts were obtained using Siemens AtellKeisense IM TnI Hreagent. Results from di fferent methodologies s hould not becompared to o ne another as quantitative results and URLs mayvary by method. PROTHROMBIN [id number] 19:31:00 Test Item Value Reference Range Interpretation Comments PROTHROMBIN TIME 12.1 SECONDS 9.3-12.9 N PATIENT (test code = PTP) INTERNATIONAL NORMAL 1.1 0.8-1.2 N TARGET RATIO (test code = INR BY IN DICATION INR) Indication INR1. Prophyl axis of venous thrombos is 2.0 - 3. 0 (orthopedic doris ana), Prophylaxis of venous thrombos is (other than hig h-risk surgery), Kya tment of Deep Vein Thrombosis/Pulm onary Embolism, Preve ntion of systemic emb olism - Tissue heart va lves, Acute Myocardia l Infarction (to prevent systemic embo lism), Valvular heart disease, Atri al Fibrillation, Bileaflet mecha nical valve in aortic position.2. Mec hanical prosthetic valv es (high risk), 2.5 - 3.5 Presence of Lupus Anticoagu lant or Antiphospholi pid Antibodies, Pre vention of systemic e mbolism - Acute Myocard ial Infarction (t o prevent recurre nt infarct). COMMENTS: Code Neuro: Call with results if INR greater than 1.7 or PT greaterComment: [id number]: Code Neuro: Call with results if PTT greater than 40THROMBOPLASTIN TIME [id number] 19:31:00 Test Item Value Reference Range Interpretation Comments THROMBOPLASTIN TIME 29.3 Seconds 25.0-39.5 N Ther apeutic PARTIAL (test code = Range: 50.4 - 88.3 PTT) Seconds Effective 08/07/2018 COMMENTS: Code Neuro: Call with results if INR greater than 1.7 or PT greaterComment: [id number]: Code Neuro: Call with results if PTT greater than 40CBC W/O [id number] 19:17:00 Test Item Value Reference Range Interpretation Comments WHITE BLOOD CELL (test code = 16.2 x10 3/uL 4.5-11.0 H WBC) RED BLOOD CELL (test code = 4.93 x10 6/uL 3.54-5.02 N RBC) HEMOGLOBIN (test code = HGB) 14.2 g/dL 11.0-15.0 N HEMATOCRIT (test code = HCT) 43.6 % 33.0-45.0 N MEAN CELL VOLUME (test code = 88.4 fL 81.0-99.0 N MCV) MEAN CELL HGB (test code = MCH) 28.8 pg 27.0-33.0 N MEAN CELL HGB CONCETRATION 32.6 g/dL 33.0-37.0 L (test code = MCHC) RED CELL DISTRIBUTION WIDTH CV 13.8 % 11.5-14.5 N (test code = RDW) RED CELL DISTRIBUTION WIDTH SD 44.0 fL 37.0-54.0 N (test code = RDW-SD) PLATELET COUNT (test code = 332 x10 3/uL 150-400 N PLT) MEAN PLATELET VOLUME (test code 12.2 fL 7.0-9.0 H = MPV) COMMENTS: Code Neuro: Call with results if platelet count is less than Comment: 100,000/mm3- CT HEAD/BRAIN W/O [id number] 00:00:00 [facility] JOSE LANARKName: DANIA JANE : 1970 Sex: F Name: DANIA JANE [facility] Germ[place] : 1970 Age/S: 51 / F [address] [place] [address] Blvd Unit #: [id number] Loc: [place] [address] Phys: LeoAmanda DO Acct: [id number] Dis Date: Status: REG ER PHONE #: [phone] Exam Date: 07/09/2021 1621 FAX #: [phone] Reason: facial droop and slurred speech/ right sided we Report Has Been Amended EXAMS: CPT CODE: [id number] CT HEAD/BRAIN W/OCONT 03132 Addendum - 07/09/2021 SIGNED 07/09/[id number]/CTHDBRWO Findings have been communicated by telephone to Dr. Bailey at 4:34 p.m. on 07/09/2021. at 5907 Reported and signed by: Grisel Camejo M.D. Report PROCEDURE INFORMATION: Exam: CT Head Without Contrast Exam date and time: 07/09/2021 4:18 PM Age: 51 years oldClinical indication: Other: Facial droop; Additional info: Facial droop and slurred speech/ right sided weakness TECHNIQUE: Imaging protocol: Computed tomography of the head without contrast. Radiation optimization: All CT scans at this facility use at least one of these dose optimization techniques: automated exposure control; mA and/or kV adjustment per patient size (includes targeted exams where dose is matched to clinical indication); or iterative reconstruction. Other technique: STROKE PROTOCOL was implemented. COMPARISON: CT CEREBRAL PERF ANAL 06/20/2020 8:49 AM FINDINGS: Brain: Cerebral volume loss is mildly accelerated for age. There is mild chronic small vessel ischemic disease in the cerebral white matter. 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 A small old lacunar infarct is present in the left anterior caudate body. There are small old lacunar infarcts in the lentiform nuclei bilaterally and anterior limb right internal capsule. Additional small old lacunar infarcts are present in the right socrates and may be present in the thalami bilaterally. No cortical based infarct is seen. The harmon-white junction is intact. Moderate intracranial arterial vascular calcifications are seen. No hemorrhage. No masseffect. Cerebral ventricles: No hydrocephalus. Volume loss of the mesial PAGE 1 Signed Report (CONTINUED) Name: TINO JANE : 1970 Age/S: 51 / F [address] [place] [address] Blvd Unit #: [id number] Loc: [place] [address] Phys: Amanda Bailey DO Acct: [id number] Dis Date: Status: REG ER PHONE #: [phone] Exam Date: 07/09/20211620 FAX #: [phone] Reason: facial droop and slurred speech/ right sided we Report Has Been Amended EXAMS: CPT CODE: [id number] CT HEAD/BRAIN W/O CONT 18793 <Continued> temporal lobes with ex vacuo widening of the temporal horns is suspected, greater on the right than the left. Paranasal sinuses: Visualized sinuses are unremarkable. No fluid levels. Mastoid air cells: Visualized mastoid air cells are well aerated. Bones/joints: Unremarkable. No acute fracture. Soft tissues: Unremarkable. IMPRESSION: 1. No acute intracranial abnormality. 2. Chronic ischemic changes are present as described. MRI of the brain with diffusion-weighted imaging may be helpful. ASSESSMENT: 3. ASPECTS ([place] Stroke Program Early CT Score) is 10. at 1630 Reported and signed by: Grisel Camejo M.D. CC: Sammy Bailey DO; Irma BLACKWOOD Technologist:RT René(R)(CT) CTDI: DLP: Trnscb Date/Time: 07/09/2021 (1630) t.[email or web address] Orig Print D/T: S: 07/09/2021 (1630) PAGE 2 Signed Report- CT ANGIO [id number] 00:00[facility]00 [facility] 1970 Sex: F Name: DANIA JANE [facility] Jose Farmer : 1970 Age/S: 51 / F [address] [place] [address] Unit #: [id number] Loc: [place] [address] Phys: Amanda Bailey DO Acct: [id number] Dis Date: Status: ADM IN PHONE #: [phone] Exam Date: 07/09/20211632 FAX #: [phone] Reason: facial droop and slurred speech/ right sided we EXAMS: CPT CODE: [id number] CT ANGIO HEAD 30697 PROCEDURE INFORMATION: Exam: CT Angiography Head With Contrast, Arteriography Exam date andtime: 07/09/2021 4:26 PM Age: 51 years old Clinical indication: Other: Facial droop andslurred speech/ right sided weakness TECHNIQUE: Imaging protocol: Computed tomography angiography of the head with contrast. Exam focused on the arteries. 3D rendering (Not supervised by radiologist): MIP and/or 3D reconstructed images were created by the technologist. Radiation optimization: All CT scans at this facility use at least one of these dose optimization techniques: automated exposure control; mA and/or kV adjustment per patient size (includes targeted exams where dose is matched to clinical indication); or iterative reconstruction. Contrast material: ISO 300; Contrast volume: 100 ml; Contrast route: INTRAVENOUS (IV); COMPARISON: CTA HEAD 04/09/2019 3:24 PM FINDINGS: Limitations: Limited evaluation of the arteries due to bolus timing. ANTERIOR CIRCULATION: Right internal carotid artery: Unremarkable. Intracranial segment is patent with nosignificant stenosis. No aneurysm. Right middle cerebral artery: Unremarkable. No occlusion or significant stenosis. No aneurysm. Right anterior cerebral artery: Unremarkable. No occlusion or significant stenosis. No aneurysm. Left internal carotid artery: Unremarkable. Intracranial segment is patent with no significant stenosis. No aneurysm. Left middle cerebral artery: Unremarkable. No occlusion or significant stenosis. No aneurysm. Left anterior cerebral artery: Unremarkable. No occlusion or significant stenosis. No aneurysm. POSTERIOR CIRCULATION: Right vertebral artery: Unremarkable. No occlusion or significant stenosis. No aneurysm. Left vertebral artery: Unremarkable. No occlusion or significant stenosis. No aneurysm. Basilar artery: Unremarkable. No occlusion or significant stenosis. No aneurysm. Right posterior cerebral artery: Unremarkable. No occlusion or significant stenosis. No aneurysm. PAGE 1 Signed Report (CONTINUED) Name: DANIA JANE [facility] Germfask : 1970 Age/S: 51 / F [address] [place] [address] Blvd Unit #: [id number] Loc: [place] [address] Phys: Amanda Bailey DO Acct: [id number] Dis Date: Status: ADM IN PHONE #: [phone] Exam Date: 07/09/2021 1633 FAX #: [phone] Reason: facial droop and slurred speech/ right sided we EXAMS: CPT CODE: [id number] CT ANGIO HEAD 70271 <Continued> Left posterior cerebral artery: Unremarkable. No occlusion or significant stenosis. No aneurysm. Veins: CTV: The superior sagittal sinus is patent. The transervse sinuses are patent. The inferior sagittal sinus is not well visualized. The deep cerebral vein and vein of Ankit are patent. The straight sinus is patent.The sigmoid sinusesare unremarkable. The visualized segments of the jugular veins are unremarkable. Thereare no venous varicosities or prominent veins noted to suggest arteriovenous malformation. Brain: No definite mass, mass effect, or midline shift. Cerebral ventricles: No ventriculomegaly. Bones/joints: Unremarkable. No acute fracture. Soft tissues: Unremarkable. PROCEDURE INFORMATION: Exam: CT Angiography Neck With Contrast Exam date and time: 07/09/2021 4:26 PM Age: 51 years old Clinical indication: Other: Facial droop and slurred speech/ right sided weakness TECHNIQUE: Imaging protocol: Computed tomography angiography of the neck with contrast. 3D rendering (Not supervised by radiologist): MIP and/or 3D reconstructed images were created by the technologist. Radiation optimization: All CT scans at this facility use at least one of these dose optimization techniques: automated exposure control; mA and/or kV adjustment per patient size (includes targeted exams where dose is matched to clinical indication); or iterativereconstruction. Contrast material: ISO 300; Contrast volume: 100 ml; Contrast route: IN TRAVENOUS (IV); COMPARISON: CTA HEAD 04/09/2019 3:24 PM FINDINGS: Rightcommon carotid artery: No stenosis. No dissection or occlusion. Right internal carotidartery: No stenosis of the extracranial segment. No dissection or occlusion. Right external carotid artery: No occlusion or stenosis of the origin. Left common carotid artery: Common origin of the left common carotid artery and the innominate artery. No stenosis. No dissection or occlusion. PAGE 2 Signed Report (CONTINUED) Name: SEBASTIANDANIA [facility] : 1970 Age/S: 51 / F [address] [place] [address] Blvd Unit #: [id number] Loc: [place] [address] Phys: Amanda Bailey DO Acct: [id number] Dis Date: Status: ADM IN PHONE #: [phone] Exam Date: 07/09/2021 1633 FAX #: [phone] Reason: facial droop and slurred speech/ right sided we EXAMS: CPT CODE: [id number] CT ANGIO HEAD 17876 <Co ntinued> Left internal carotid artery: No stenosis of the extracranial segment. No dissection or occlusion. Left external carotid artery: No occlusion or stenosis of the origin. Right vertebral artery: No stenosis. No dissection or occlusion. Left vertebral artery: No stenosis. No dissection or occlusion. Other arteries: The subclavian arteries arepatent. Soft tissues: Normal. No significant soft tissue swelling. Bones/joints: No acute fracture. REFERENCES: NASCET CRITERIA. The degree of internal carotid artery stenosis is based on NASCET criteria. Normal is no stenosis. Mild is less than 50% stenosis. Moderate is 50-69% stenosis. Severe is 70% to 99% stenosis. Total occlusion is no detectable patent lumen. IMPRESSION: CT Angiography Head With Contrast, Arteriography 1. CTA: Significantly limited study due to bolus timing without evidence of large vessel stenosis. 2. CTV: No evidence of venous thrombosis within the limitation of the study. CT Angiography Neck With Contrast No stenosis or occlusion. at 1723 Reported and signed by: Pam Tolentino M.D. CC: Amanda Bailey DO; Irma BLACKWOOD Technologist:Denise Vann, RT(R)(CT) CTDI: DLP: Trnscb Date/Time: 07/09/2021 (1722) [email or web address] Orig Print D/T: S: 07/09/2021 (1722) PAGE 3 Signed Report- CT ANGIO [id number] 00:00[facility] 1970 Sex: F Name: DANIA JANE [facility] [place] : 1970 Age/S: 51 / F [address] [facility] Unit #: [id number] Loc: [place] [address] Phys: Amanda Bailey DO Acct: [id number] Dis Date: Status: ADM IN PHONE #: [phone] Exam Date: 07/09/2021 1633 FAX #: [phone] Reason: facial droop and slurred speech/ right sided we EXAMS: CPT CODE: [id number] CT ANGIO NECK 79527 PROCEDURE INFORMATION: Exam: CT Angiography Head With Contrast, Arteriography Exam date andtime: 07/09/2021 4:26 PM Age: 51 years old Clinical indication: Other: Facial droop andslurred speech/ right sided weakness TECHNIQUE: Imaging protocol: Computed tomography angiography of the head with contrast. Exam focused on the arteries. 3D rendering (Not supervised by radiologist): MIP and/or 3D reconstructed images were created by the technologist. Radiation optimization: All CT scans at this facility use at least one of these dose optimization techniques: automated exposure control; mA and/or kV adjustment per patient size (includes targeted exams where dose is matched to clinical indication); or iterative reconstruction. Contrast material: ISO 300; Contrast volume: 100 ml; Contrast route: INTRAVENOUS (IV); COMPARISON: CTA HEAD 04/09/2019 3:24 PM FINDINGS: Limitations: Limited evaluation of the arteries due to bolus timing. ANTERIOR CIRCULATION: Right internal carotid artery: Unremarkable. Intracranial segment is patent with nosignificant stenosis. No aneurysm. Right middle cerebral artery: Unremarkable. No occlusion or significant stenosis. No aneurysm. Right anterior cerebral artery: Unremarkable. No occlusion or significant stenosis. No aneurysm. Left internal carotid artery: Unremarkable. Intracranial segment is patent with no significant stenosis. No aneurysm. Left middle cerebral artery: Unremarkable. No occlusion or significant stenosis. No aneurysm. Left anterior cerebral artery: Unremarkable. No occlusion or significant stenosis. No aneurysm. POSTERIOR CIRCULATION: Right vertebral artery: Unremarkable. No occlusion or significant stenosis. No aneurysm. Left vertebral artery: Unremarkable. No occlusion or significant stenosis. No aneurysm. Basilar artery: Unremarkable. No occlusion or significant stenosis. No aneurysm. Right posterior cerebral artery: Unremarkable. No occlusion or significant stenosis. No aneurysm. PAGE 1 Signed Report (CONTINUED) Name: SEBASTIANDANIA [facility] : 1970 Age/S: 51 / F [address] [place], [place] [address] Unit #: [id number] Loc: [place] [address] Phys: Amanda Bailey Acct: [id number] Dis Date: Status: ADM IN PHONE #: [phone] Exam Date: 07/09/2021 1633 FAX #: [phone] Reason: facial droop and slurred speech/ right sided we EXAMS: CPT CODE: [id number] CT ANGIO NECK 00931 <Continued> Left posterior cerebral artery: Unremarkable. No occlusion or significant stenosis. No aneurysm. Veins: CTV: The superior sagittal sinus is patent. The transervse sinuses are patent. The inferior sagittal sinus is not well visualized. The deep cerebral vein and vein of Ankit are patent. The straight sinus is patent.The sigmoid sinusesare unremarkable. The visualized segments of the jugular veins are unremarkable. Thereare no venous varicosities or prominent veins noted to suggest arteriovenous malformation. Brain: No definite mass, mass effect, or midline shift. Cerebral ventricles: No ventriculomegaly. Bones/joints: Unremarkable. No acute fracture. Soft tissues: Unremarkable. PROCEDURE INFORMATION: Exam: CT Angiography Neck With Contrast Exam date and time: 07/09/2021 4:26 PM Age: 51 years old Clinical indication: Other: Facial droop and slurred speech/ right sided weakness TECHNIQUE: Imaging protocol: Computed tomography angiography of the neck with contrast. 3D rendering (Not supervised by radiologist): MIP and/or 3D reconstructed images were created by the technologist. Radiation optimization: All CT scans at this facility use at least one of these dose optimization techniques: automated exposure control; mA and/or kV adjustment per patient size (includes targeted exams where dose is matched to clinical indication); or iterativereconstruction. Contrast material: ISO 300; Contrast volume: 100 ml; Contrast route: IN TRAVENOUS (IV); COMPARISON: CTA HEAD 04/09/2019 3:24 PM FINDINGS: Rightcommon carotid artery: No stenosis. No dissection or occlusion. Right internal carotidartery: No stenosis of the extracranial segment. No dissection or occlusion. Right external carotid artery: No occlusion or stenosis of the origin. Left common carotid artery: Common origin of the left common carotid artery and the innominate artery. No stenosis. No dissection or occlusion. PAGE 2 Signed Report (CONTINUED) Name: DANIA JANE [facility] Germ[place] : 1970 Age/S: 51 / F [address] [place] [address] Unit #: [id number] Loc: [place] [address] Phys: Khang Baileymadeline STERN Acct: [id number] Dis Date: Status: ADM IN PHONE #: [phone] Exam Date: 07/09/2021 1633 FAX #: [phone] Reason: facial droop and slurred speech/ right sided we EXAMS: CPT CODE: [id number] CT ANGIO NECK 89776 <Co ntinued> Left internal carotid artery: No stenosis of the extracranial segment. No dissection or occlusion. Left external carotid artery: No occlusion or stenosis of the origin. Right vertebral artery: No stenosis. No dissection or occlusion. Left vertebral artery: No stenosis. No dissection or occlusion. Other arteries: The subclavian arteries arepatent. Soft tissues: Normal. No significant soft tissue swelling. Bones/joints: No acute fracture. REFERENCES: NASCET CRITERIA. The degree of internal carotid artery stenosis is based on NASCET criteria. Normal is no stenosis. Mild is less than 50% stenosis. Moderate is 50-69% stenosis. Severe is 70% to 99% stenosis. Total occlusion is no detectable patent lumen. IMPRESSION: CT Angiography Head With Contrast, Arteriography 1. CTA: Significantly limited study due to bolus timing without evidence of large vessel stenosis. 2. CTV: No evidence of venous thrombosis within the limitation of the study. CT Angiography Neck With Contrast No stenosis or occlusion. at 1723 Reported and signed by: Pam Tolentino M.D. CC: Amanda Bailey DO; Irma BLACKWOOD Technologist:RT René(R)(CT) CTDI: DLP: Trnscb Date/Time: 07/09/2021 (1722) [email or web address] Orig Print D/T: S: 07/09/2021 (1722) PAGE 3 Signed Report- XR CHEST 1 [id number] 00:00[facility]00[facility] : 1970 Sex: F FAX: Amanda Parmar DO [phone] Seth: St: ADM FAX: Irma Zuleta [phone] Name: DANIA JANE [facility] : 1970 Age/S: 51/F [address] [place] [address] Unit #: [id number] Loc: [address] [place] [address] Phys: LeoAmanda STERNAcct: [id number] Dis Date: Status: ADM IN PHONE #: [phone] Exam Date: 07/09/20211929 FAX #: [phone] Reason: stroke EXAMS: CPT CODE: [id number] XR CHEST 1 V 59478 PROCEDURE INFORMATION: Exam: XR Chest Exam date and time: 07/09/2021 7:33 PM Age: 51 years old Clinical indication: Other: Stroke TECHNIQUE: Imaging protocol: XR of the chest. Views: 1 view. COMPARISON: CR XR CHEST 1V 06/20/2020 9:24 AM FINDINGS: Lungs: Unremarkable. No consolidation. Pleural spaces: Unremarkable. No pleural effusion. No pneumothorax. Heart/Mediastinum: Unremarkable. No cardiomegaly. Bones/joints: Median sternotomy wires are intact. IMPRESSION: No acute findings. at 2045 Reported and signed by: Darling Medina M.D. CC: Amanda Bailey DO; Irma BLACKWOOD Technologist: RT Batsheva Ceballos (R) Date/Time/By: 07/09/2021 (2045) : By: [email or web address] Orig Print D/T: S: 07/09/2021 (2045) PAGE 1 Signed [id number] (COVID-19), RT-PCR/TMA 2021-05-02 16:29:48 Test Item Value Reference Interpretation Comments Range SARS-CoV-2 NEGATIVE SEE NOTE SARS-CoV-2 RNA NOT INTERPRETATION DETECTEDNegat lul (test code = 59996) results do not preclude SARS-CoV-2 infe ction and should notb e used as the sole bas is for patient managem ent decisions. Negativeresults must be combined with c linical observations, p atient history,and epidemiological information. Op timum specimen types and timingfor peak viral levels during infections caus ed by SARS-CoV-2 have notbeen determined. Col lection of multiple spe cimens or types ofspec imens may be necessar y to detect virus. I mproper specimencollect ion and handling, seque nce variability und er primers/probes, or organism presen t below the limit of de tection may lead to falsenegative r esults. Positive and ne gative predictive valu es oftesting are h ighly dependent on prevalence. Fal se negative testre sults are more likely when prevalence is h igh. SOURCE (test code = NASOPHARYNGEAL Note: [place] [address]) Karen Dillan [place] l-Time RT-PCR. The exp ected result or ref erence range is NEGATI VE (Not Detected). For more information reg arding COVID-19 testin g to include clinicalinforma tion, methodology det ail, intended use, F DA authorization andrecommended fact sheets for joanne ents or healthcare prov iders, see [employer] Announcement: SARS-CoV-2 (COV ID-19) by NAAT at URL below (note,fact shee ts are provided by met hod given in report:[email or web address] [email or web address] [email or web address] Alternatively, see downloadable PD F fact sheet at:[email or web address] [employer]/COVID-19-RT -PCR UNLESS OTHERW ISE INDICATED, ALL TESTING PERFORMED [facility] NICAL PATHOLOGY LABOR [employer] [address] [place] [address] 4 LABORATORY DI AKANKSHA: GABE DAVALOS M.D. TONE Orr [id number] CAP ACCREDITATION N O. [id number] TOTAL T3 - [id number] 14:10:00 Test Item Value Reference Range Interpretation Comments TOTAL T3 - ICMA (test 70 ng/dL 71-180 A Perfor med At: HD [facility] code = T3) [id number] [place], [place] [id number] Trevor Bruce MD Ph:[phone] [id number] 18:01:00 Test Item Value Reference Range Interpretation Comments GLUBED (test code = 90 MG/DL 70-110 N Performe d by certified GLUBED) 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 [facility] [id number] 12:46:00 Test Item Value Reference Range Interpretation Comments GLUBED (test code = 120 MG/DL 70-110 H Performe d by certified GLUBED) 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 [facility] [id number] 08:52:00 Test Item Value Reference Range Interpretation Comments GLUBED (test code = 289 MG/DL 70-110 H Performe d by certified GLUBED) 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 [facility] BASIC METABOLIC [id number] 08:51:00 Test Item Value Reference Range Interpretation Comments SODIUM (test code = NA) 136 mEq/L 134-147 N POTASSIUM (test code = 3.6 mEq/L 3.4-5.0 N K) CHLORIDE (test code = 101 mEq/L 100-108 N CL) CARBON DIOXIDE (test 27 mEq/l 21-33 N code = CO2) ANION GAP (test code = 12 0-20 N GAP) GLUCOSE (test code = 307 mg/dL 70-110 H GLU) BLOOD UREA NITROGEN 13 mg/dL 7-18 N (test code = BUN) GLOMERULAR FILTRATION 79.6 90-95 L Units of measure = RATE (test code = GFR) ml/mi n/1.73 m2 CREATININE (test code = 0.9 mg/dL 0.6-1.3 N CREAT) CALCIUM (test code = 9.2 mg/dL 8.0-10.5 N CA) CBC W/AUTO [id number] 08:33:00 Test Item Value Reference Range Interpretation Comments WHITE BLOOD CELL (test code = 6.7 x10 3/uL 4.5-11.0 N WBC) RED BLOOD CELL (test code = 3.84 x10 6/uL 3.54-5.02 N RBC) HEMOGLOBIN (test code = HGB) 12.0 g/dL 11.0-15.0 N HEMATOCRIT (test code = HCT) 36.7 % 33.0-45.0 N MEAN CELL VOLUME (test code = 95.6 fL 81.0-99.0 N MCV) MEAN CELL HGB (test code = MCH) 31.3 pg 27.0-33.0 N MEAN CELL HGB CONCETRATION 32.7 g/dL 33.0-37.0 L (test code = MCHC) RED CELL DISTRIBUTION WIDTH CV 13.2 % 11.5-14.5 N (test code = RDW) RED CELL DISTRIBUTION WIDTH SD 46.5 fL 37.0-54.0 N (test code = RDW-SD) PLATELET COUNT (test code = 254 x10 3/uL 150-400 N PLT) MEAN PLATELET VOLUME (test code 12.3 fL 7.0-9.0 H = MPV) NEUTROPHIL % (test code = NT%) 50.2 % 56.0-77.0 L IMMATURE GRANULOCYTE % (test 0.3 % 0.0-2.0 N code = IG%) LYMPHOCYTE % (test code = LY%) 36.5 % 14.0-32.0 H MONOCYTE % (test code = MO%) 8.2 % 4.8-9.0 N EOSINOPHIL % (test code = EO%) 3.6 % 0.3-3.7 N BASOPHIL % (test code = BA%) 1.2 % 0.0-2.0 N NUCLEATED RBC % (test code = 0.0 % 0-0 N NRBC%) NEUTROPHIL # (test code = NT#) 3.38 x10 3/uL 2.0-7.6 N IMMATURE GRANULOCYTE # (test 0.02 x10 3/uL 0.00-0.03 N code = IG#) LYMPHOCYTE # (test code = LY#) 2.45 x10 3/uL 1.0-3.8 N MONOCYTE # (test code = MO#) 0.55 x10 3/uL 0.1-0.8 N EOSINOPHIL # (test code = EO#) 0.24 x10 3/uL 0.0-0.2 H BASOPHIL # (test code = BA#) 0.08 x10 3/uL 0.0-0.2 N NUCLEATED RBC # (test code = 0.00 x10 3/uL 0.0-0.1 N NRBC#) MANUAL DIFF REQUIRED (test code NO = MDIFF) CBC W/AUTO [id number] 08:32:00 Test Item Value Reference Range Interpretation Comments WHITE BLOOD CELL (test code = x10 3/uL 4.5-11.0 WBC) RED BLOOD CELL (test code = RBC) x10 6/uL 3.54-5.02 HEMOGLOBIN (test code = HGB) 12.0 g/dL 11.0-15.0 N HEMATOCRIT (test code = HCT) 36.7 % 33.0-45.0 N MEAN CELL VOLUME (test code = fL 81.0-99.0 MCV) MEAN CELL HGB (test code = MCH) pg 27.0-33.0 MEAN CELL HGB CONCETRATION (test g/dL 33.0-37.0 code = MCHC) RED CELL DISTRIBUTION WIDTH CV % 11.5-14.5 (test code = RDW) PLATELET COUNT (test code = PLT) 254 x10 3/uL 150-400 N NEUTROPHIL % (test code = NT%) % 56.0-77.0 LYMPHOCYTE % (test code = LY%) % 14.0-32.0 NEUTROPHIL # (test code = NT#) x10 3/uL 2.0-7.6 LYMPHOCYTE # (test code = LY#) x10 3/uL 1.0-3.8 MANUAL DIFF REQUIRED (test code = MDIFF) [id number] 04:42:00 Test Item Value Reference Range Interpretation Comments GLUBED (test code = 271 MG/DL 70-110 H Performe d by certified GLUBED) 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 [facility] [id number] 20:58:00 Test Item Value Reference Range Interpretation Comments GLUBED (test code = 219 MG/DL 70-110 H Performe d by certified GLUBED) 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 [facility] [id number] 16:45:00 Test Item Value Reference Range Interpretation Comments GLUBED (test code = 172 MG/DL 70-110 H Performe d by certified GLUBED) 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 [facility] [id number] 12:34:00 Test Item Value Reference Range Interpretation Comments GLUBED (test code = 212 MG/DL 70-110 H Performe d by certified GLUBED) 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 [facility] BASIC METABOLIC [id number] 08:33:00 Test Item Value Reference Range Interpretation Comments SODIUM (test code = NA) 137 mEq/L 134-147 N POTASSIUM (test code = 3.4 mEq/L 3.4-5.0 N K) CHLORIDE (test code = 101 mEq/L 100-108 N CL) CARBON DIOXIDE (test 29 mEq/l 21-33 N code = CO2) ANION GAP (test code = 10 0-20 N GAP) GLUCOSE (test code = 280 mg/dL 70-110 H GLU) BLOOD UREA NITROGEN 15 mg/dL 7-18 N (test code = BUN) GLOMERULAR FILTRATION 91.1 90-95 N Units of measure = RATE (test code = GFR) ml/mi n/1.73 m2 CREATININE (test code = 0.8 mg/dL 0.6-1.3 CREAT) CALCIUM (test code = 8.9 mg/dL 8.0-10.5 N CA) LIPID PROFILE (CORONARY RISK)2020-06-21 08:33:00 Test Item Value Reference Range Interpretation Comments TRIGLYCERIDES (test 548 mg/dL 40-150 H code = TRIG) CHOLESTEROL (test 289 mg/dL <200 H code = CHOL) CHOLESTEROL/HDL 9.38 RATIO 3.27-4.44 H RISK ASSOCIA IRMA WITH RATIO (test code = CHOL/HDL RATIOS: CHOLHDL) RISK MALE FEMALE1/2 A VERAGE 3.43 3.27AVERAGE 4.97 4.[address] RAGE 23.39 11.04 NOTE THAT THE REFERENCE VALUE IS RELATEDTO RISK LEVELS RECOMMENDED BY THE NATL.HEART, ROULA G, AND BLOOD INST. HDL CHOLESTEROL 30.8 mg/dL 39-96 L (test code = HDL) LIPOPROTEIN LDL 178.7 mg/dL 0-100 H <100 (test code = LDL) [id number] -129 NEAR OPTIMAL/ABOVE [id number] 89 HIGH>DO=472 VE RY HIGH*Guidelines provided by the National Choles terol [employer] m Adult Treatment Panel III CBC W/AUTO [id number] 08:17:00 Test Item Value Reference Range Interpretation Comments WHITE BLOOD CELL (test code = 7.0 x10 3/uL 4.5-11.0 N WBC) RED BLOOD CELL (test code = 3.73 x10 6/uL 3.54-5.02 N RBC) HEMOGLOBIN (test code = HGB) 11.1 g/dL 11.0-15.0 N HEMATOCRIT (test code = HCT) 34.9 % 33.0-45.0 N MEAN CELL VOLUME (test code = 93.6 fL 81.0-99.0 N MCV) MEAN CELL HGB (test code = MCH) 29.8 pg 27.0-33.0 N MEAN CELL HGB CONCETRATION 31.8 g/dL 33.0-37.0 L (test code = MCHC) RED CELL DISTRIBUTION WIDTH CV 13.2 % 11.5-14.5 N (test code = RDW) RED CELL DISTRIBUTION WIDTH SD 45.2 fL 37.0-54.0 N (test code = RDW-SD) PLATELET COUNT (test code = 237 x10 3/uL 150-400 N PLT) MEAN PLATELET VOLUME (test code 12.7 fL 7.0-9.0 H = MPV) NEUTROPHIL % (test code = NT%) 59.9 % 56.0-77.0 N IMMATURE GRANULOCYTE % (test 0.4 % 0.0-2.0 N code = IG%) LYMPHOCYTE % (test code = LY%) 27.7 % 14.0-32.0 N MONOCYTE % (test code = MO%) 8.5 % 4.8-9.0 N EOSINOPHIL % (test code = EO%) 2.6 % 0.3-3.7 N BASOPHIL % (test code = BA%) 0.9 % 0.0-2.0 N NUCLEATED RBC % (test code = 0.0 % 0-0 N NRBC%) NEUTROPHIL # (test code = NT#) 4.22 x10 3/uL 2.0-7.6 N IMMATURE GRANULOCYTE # (test 0.03 x10 3/uL 0.00-0.03 N code = IG#) LYMPHOCYTE # (test code = LY#) 1.95 x10 3/uL 1.0-3.8 N MONOCYTE # (test code = MO#) 0.60 x10 3/uL 0.1-0.8 N EOSINOPHIL # (test code = EO#) 0.18 x10 3/uL 0.0-0.2 N BASOPHIL # (test code = BA#) 0.06 x10 3/uL 0.0-0.2 N NUCLEATED RBC # (test code = 0.00 x10 3/uL 0.0-0.1 N NRBC#) MANUAL DIFF REQUIRED (test code NO = MDIFF) HGBA1C%2020-06-21 08:16:00 Test Item Value Reference Range Interpretation Comments HGBA1C% (test code = HGBA1C%) > 14.0 %A1C 4.8-6.0 H [id number] 07:49:00 Test Item Value Reference Range Interpretation Comments GLUBED (test code = 313 MG/DL 70-110 H Performe d by certified GLUBED) 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 [facility] CBC W/AUTO [id number] 07:35:00 Test Item Value Reference Range Interpretation Comments WHITE BLOOD CELL (test code = x10 3/uL 4.5-11.0 WBC) RED BLOOD CELL (test code = RBC) x10 6/uL 3.54-5.02 HEMOGLOBIN (test code = HGB) 11.1 g/dL 11.0-15.0 N HEMATOCRIT (test code = HCT) 34.9 % 33.0-45.0 N MEAN CELL VOLUME (test code = fL 81.0-99.0 MCV) MEAN CELL HGB (test code = MCH) pg 27.0-33.0 MEAN CELL HGB CONCETRATION (test g/dL 33.0-37.0 code = MCHC) RED CELL DISTRIBUTION WIDTH CV % 11.5-14.5 (test code = RDW) PLATELET COUNT (test code = PLT) 237 x10 3/uL 150-400 N NEUTROPHIL % (test code = NT%) % 56.0-77.0 LYMPHOCYTE % (test code = LY%) % 14.0-32.0 NEUTROPHIL # (test code = NT#) x10 3/uL 2.0-7.6 LYMPHOCYTE # (test code = LY#) x10 3/uL 1.0-3.8 MANUAL DIFF REQUIRED (test code = MDIFF) [id number] 06:17:00 Test Item Value Reference Range Interpretation Comments GLUBED (test code = 290 MG/DL 70-110 H Performe d by certified GLUBED) 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 [facility] [id number] 20:40:00 Test Item Value Reference Range Interpretation Comments GLUBED (test code = 362 MG/DL 70-110 H Performe d by certified GLUBED) 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 [facility] [id number] 20:40:00 Test Item Value Reference Range Interpretation Comments GLUBED (test code = 413 MG/DL 70-110 H Performe d by certified GLUBED) 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 [facility] T4 [id number] 19:12:00 Test Item Value Reference Range Interpretation Comments T4 FREE (test code = T4F) 1.2 ng/dL 0.77-1.61 N THYROID STIMULATING [id number] 19:12:00 Test Item Value Reference Range Interpretation Comments THYROID STIMULATING 1.10 0.42-5.47 N Results in HORMONE (test code = TSH) mi lli-International Units/mL HGBA1C%2020-06-20 19:10:00 Test Item Value Reference Range Interpretation Comments HGBA1C% (test code = HGBA1C%) > 14.0 %A1C 4.8-6.0 H [id number] 19:07:00 Test Item Value Reference Range Interpretation Comments TROPONIN-I < 0.006 ng/mL 0.000-0.045 N Negative: <= (test code = 0.045 Positive: TROPI) >= 0.046 Correl ation with serial results, other cardiac markers andclinical findings is nec essary to determine the clinicalsignifi cance of this result. Results using different metho dologies should not be c omparedto one another as carlyn titative results may hong y by method. [id number] 11:22:00 Test Item Value Reference Range Interpretation Comments GLUBED (test code = 468 MG/DL 70-110 H Performe d by certified GLUBED) 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 [facility] POC VENOUS BLOOD [id number] 10:06:00 Test Item Value Reference Range Interpretation Comments POC VENOUS BLOOD GAS PH (test 7.426 7.33-7.45 N code = POCPHV) POC VENOUS BLOOD GAS PCO2 (test 37.0 mmHg 43-47 L code = ELVORV2U) POC VENOUS BLOOD GAS PO2 (test 37.3 mmHG 10-50 N code = VWHIA9V) POC TCO2 VENOUS (test code = 25.4 PHTMPE7Z) POC HCO3 VENOUS (test code = 24.3 MMOL/L 22-27 N UMFPUM1L) POC BASE EXCESS VENOUS (test code -0.1 MMOL/L -4.0-4.0 N = POCBEV) POC O2 SATURATION VENOUS (test 72.8 % 60-80 N code = LBBB1UJ) VENOUS BLOOD GAS DELIVERY (test Room Air code = DELV) - CT HEAD/BRAIN W/O [id number] 09:58:00 [facility] 1970 Sex: F Name: DANIA JANE [facility] : 1970 Age/S: 50 / F [address] [place] [address] Unit #: [id number] Loc: [place] [address] Phys: Berto Duggan MD Acct: [id number] Dis Date: Status: REG ER PHONE #: [phone] Exam Date: 06/20/2020 0855 FAX #: [phone] Reason: left side numbness slurred speech Report Has Been Amended EXAMS: CPT CODE: [id number] CT HEAD/BRAIN W/OCONT 02062 Addendum - 06/20/2020 SIGNED 06/20/2020 ADDENDUM: [id number] CT/CTHDBRWO Dr. Vazquez discussed the results via phone with Dr. Duggan at 9:55 AM, 06/20/2020 at 0958 Reported and signed by: Emeka Vazquez M.D. Report Clinical Indication: Left-sided numbness and slurred speech Comparison: None TECHNIQUE: CT images were obtained from the foramen magnum to the vertex without the use of intravenous contrast on a multidetector CT. Axial, coronal and sagittal reformats created. Total exam DLP: 546.25mGy-cm. DLP means dose length product, a radiation dose metric that does not report individual patient dose, but is a reference value related to the radiation output of the scanner used for this exam. CT imaging performed at this location utilizes radiation dose optimization techniques which include one or more of the following: -Automated exposure control -Adjustment of the mA and/or kV according to patient size -Use of iterative reconstruction technique FINDINGS: CALVARIUM AND SCALP: No acute fracture, or destructive osseous lesion. No scalp hematoma. VENTRICLES: No acute extra flows. EXTRA-AXIAL SPACES: No acute extra axial hemorrhage, fluid collection PAGE 1 Signed Report (CONTINUED) Name: DANIA JANE [facility] : 1970 Age/S: 50 / F [address] [place] [address] BlvdUnit #: [id number] Loc: [place] [address] Phys: Berto Duggan MD Acct: [id number] Dis Date: Status:REG ER PHONE #: [phone] Exam Date: 06/20/2020 0855 FAX #: [phone] Reason: left side numbness slurred speech Report Has Been Amended EXAMS: CPT CODE: [id number] CT HEAD/BRAIN W/O CONT 02747 <Continued> or mass effect. BRAIN PARENCHYMA: No acute parenchymal hemorrhage or large subacute infarction. Redemonstration of a small chronic infarction in the right striatocapsular region. Areas of low attenuation in the supratentorial white matter are nonspecific but favor mild microvascular ischemic changes. Intracranial atherosclerosis. Mild volume loss. PARANASAL SINUSES AND MASTOID AIR CELLS: No fluid opacification. If there is further concern for intracranial pathology or acute stroke, MRI of the brain may be performed for complete assessment. IMPRESSION: No acute intracranial hemorrhage, mass effect or large subacute infarction. No change compared to the brain CT performed last year on 05/29/2019 SL: [id number] at 0933 Reported and signed by: Emeka Vazquez M.D. CC: Tierra Man MD; Berto Duggan MD Technologist:Justo Vann, RT(R)(CT) CTDI: DLP: Trnscb Date/Time: 06/20/2020 (932) [email or web address] Orig Print D/T: S: 06/20/2020 (935) PAGE 2 Signed Report- CT ANGIO [id number] 09:57:00 [facility] 1970 Sex: F Name: DANIA JANE [facility] [place] : 1970 Age/S: 50 / F [address] [place] [address] Unit #: [id number] Loc: [place] [address] Phys: Berto Duggan MD Acct: [id number] Dis Date: Status: REG ER PHONE #: [phone] Exam Date: 06/20/2020 0855 FAX #: [phone] Reason: left side numbness slurred speech EXAMS: CPT CODE: [id number] CT ANGIO NECK [address] Clinical Indication: Left side numbness slurred speech Comparison: Brain CT performed today. Brain CTA and Perfusion CT 07/12/2019 and CTA 04/09/2019 TECHNIQUE: Sequ ential trans-axial images are obtained from the aortic arch to the vertex with a multi-detector helical CT after intravenous contrast administration. Coronal and sagittal MIP reconstructions are obtained. Perfusion parametric maps were also generated. Region of interest were placed for arterial input function and venous input function were selected by thesoftware/technologist. IV Contrast: [address] Radiation Dose DLP 2595 mGy-cm. CT imaging performed at this location utilizes radiation dose optimization techniques which include one or more of the following: -Automated exposure control -Adjustment of the mA and/or kV according to patient size -Use of iterative reconstruction technique FINDINGS: CT PERFUSION: Mean transit time: No evidence of elevated mean transit time. Cerebral blood flow: No evidence of decreased relative cerebral blood flow. Cerebral blood volume: No evidence of decreased relative cerebral blood volume. INTRACRANIAL CTA: ANTERIOR CIRCULATION: Right internal carotid artery: Calcified plaque results in mild stenosis. Right anterior cerebral artery: No stenosis or occlusion. PAGE 1 Signed Report (CONTINUED) Name: DANIA JANE [facility] : 1970 Age/S: 50 / F [address] [place] [address] Blvd Unit #: [id number] Loc: [place] [address] Phys: Breto Duggan MD Acct: [id number] Dis Date: Status: REG ER PHONE #: [phone] Exam Date: 06/20/2020 0855 FAX #: [phone] Reason: left side numbness slurred speech EXAMS: CPT CODE: [id number] CT ANGIO NECK [address] <Continued> Right middle cerebral artery: Moderate stenosis ofthe superior M2 division. No occlusion. Left internal carotid artery: Calcifiedplaque results in mild stenosis. Left anterior cerebral artery: No stenosis or occlusion. Left middle cerebral artery: Moderate/severe stenosis of the M1 segment. No occlusion. Anterior communicating artery: Unremarkable. Posterior communicating artery: Not visualized. POSTERIOR CIRCULATION: Right vertebral artery: Mild narrowing distally. Right posterior inferior cerebellar artery: Patent. Left verte bral artery: No stenosis or occlusion. Left posterior inferior cerebellar artery: Patent. Basilar artery: Stenosis or occlusion. Right posterior cerebral artery: Moderate stenosis. No proximal occlusion. Left posterior cerebral artery: Mild/moderate stenosis. No perfusion. No aneurysm or vascular malformation EXTRACRANIAL CTA: GREAT VESSELS: Aortic arch: Bovine arch. RIGHT-SIDED EXTRACRANIAL SYSTEM: Right common carotid artery: No hemodynamically significant stenosis. Right proximal internal carotid artery: No hemodynamically significant stenosis. Right mid and distal internal carotid artery: No hemodynamically PAGE 2 Signed Report (CONTINUED) Name: DANIA JANE [facility] Jose Farmer : 1970 Age/S: 50 / F [address] [place], [place] [address]vd Unit #: [id number] Loc: [place] [address] Phys: Berto Duggan MD Acct: [id number] Dis Date: Status: REG ER PHONE #: [phone] Exam Date: 06/20/2020 0855 FAX #: [phone] Reason: left side numbness slurred speech EXAMS: CPT CODE: [id number] CT ANGIO NECK [address] <Continued> significant stenosis.Right vertebral artery: Moderate/severe stenosis at the V1 segment. LEFT-SIDED EXTRACRANIAL SYSTEM: Left common carotid artery: No hemodynamically significant stenosis. Left proximal internal carotid artery: No hemodynamically significant stenosis. Left mid and distal internal carotid artery: No hemodynamically significant stenosis. Left vertebral artery: Unremarkable. Other findings: Respiratory artifact in the upper lobes. Partially imaged platelike atelectasis and thickening internal septa are present on prior. Redemonstration of nodular thyroid, which can be assessed with routine thyroid ultrasound. Anterior fusion at C4-C5. Comment: Any carotid artery stenosis measurements provided in the above report utilized a normal caliber distal carotid artery as the denominator according to NASCET criteria/recommendations. IMPRESSION: PerfusionCT: Negative CT perfusion study. Brain CTA: 1. No acute occlusion. 2. Moderate/severe stenosis of the M1 left MCA. 3. Moderate stenosis of the M2 rightMCA. 4. Moderate stenosis of the right INSPECTOR BALANCE TRUING and mild/moderate stenosis of the left INSPECTOR BALANCE TRUING. Neck CTA: 1. No hemodynamically significant stenosis of the internal carotid arteries. 2. Severe stenosis at the V1 right vertebral artery, without occlusion. 3. Normal caliber left vertebral artery. 4. Nodular thyroid can be assessedwith routine/outpatient ultrasound. Please note small basal ganglia lacunar infarct, posterior fossa and PAGE 3 Signed Report (CONTINUED) Name: DANIA JANE [facility] Jose Farmer : 1970 Age/S: 50 / F [address] [place] [address] Unit #: [id number] Loc: [place] [address] Phys: Berto Duggan MD Acct: [id number] Dis Date: Status: REG ER PHONE #: [phone] Exam Date: 06/20/2020 08 FAX #: [phone] Reason: left side numbness slurred speech EXAMS: CPT CODE: [id number] CT ANGIO NECK [address]7784 <Continued> brainstem infarcts cannot be excluded from CT perfusion examination. MRI examination with diffusion- weighted imaging provides higher sensitivity. Dr. Vazquez discussed the results via phone with Dr. Werner at 9:52 AM, 06/20/2020 SL: [id number]-PC02 at 0957 Reported and signed by: Emeka Vazquez M.D. CC: Tierra Man MD; Berto Duggan MD Te chnologist:Justo Vann, RT(R)(CT) CTDI: DLP: Trnscb Date/Time: 06/20/2020 (956) [email or web address] Orig Print D/T: S: 06/20/2020 (1000) PAGE 4 Signed Report- CT CEREBRAL PERF ANAL 2020-06-20 09:57:00 [facility] 1970 Sex: F Name: DANIA JANE [facility] [place] : 1970 Age/S: 50 / F [address] [place] [address] Unit #: [id number] Loc: [place] [address] Phys: Berto Duggan MD Acct: [id number] Dis Date: Status: REG ER PHONE #: [phone] Exam Date: 06/20/2020 08 FAX #: [phone] Reason: left side numbness slurred speech EXAMS: CPT CODE: [id number] CT CEREBRAL PERF ANAL 61309 Clinical Indication: Left side numbness slurred speech Comparison: Brain CT performed today. Brain CTA and Perfusion CT 07/12/2019 and CTA 04/09/2019 TECHNIQUE: Sequ ential trans-axial images are obtained from the aortic arch to the vertex with a multi-detector helical CT after intravenous contrast administration. Coronal and sagittal MIP reconstructions are obtained. Perfusion parametric maps were also generated. Region of interest were placed for arterial input function and venous input function were selected by thesoftware/technologist. IV Contrast: [address] Radiation Dose DLP 2595 mGy-cm. CT imaging performed at this location utilizes radiation dose optimization techniques which include one or more of the following: -Automated exposure control -Adjustment of the mA and/or kV according to patient size -Use of iterative reconstruction technique FINDINGS: CT PERFUSION: Mean transit time: No evidence of elevated mean transit time. Cerebral blood flow: No evidence of decreased relative cerebral blood flow. Cerebral blood volume: No evidence of decreased relative cerebral blood volume. INTRACRANIAL CTA: ANTERIOR CIRCULATION: Right internal carotid artery: Calcified plaque results in mild stenosis. Right anterior cerebral artery: No stenosis or occlusion. PAGE 1 Signed Report (CONTINUED) Name: DANIA JANE [facility] : 1970 Age/S: 50 / F [address] [place] [address] Unit #: [id number] Loc: [place] [address] Phys: Berto Duggan MD Acct: [id number] Dis Date: Status: REG ER PHONE #: [phone] Exam Date: 06/20/2020 0855 FAX #: [phone] Reason: left side numbness slurred speech EXAMS: CPT CODE: [id number] CT CEREBRAL PERF ANAL 56184 <Continued> Right middle cerebral artery: Moderate stenosis ofthe superior M2 division. No occlusion. Left internal carotid artery: Calcifiedplaque results in mild stenosis. Left anterior cerebral artery: No stenosis or occlusion. Left middle cerebral artery: Moderate/severe stenosis of the M1 segment. No occlusion. Anterior communicating artery: Unremarkable. Posterior communicating artery: Not visualized. POSTERIOR CIRCULATION: Right vertebral artery: Mild narrowing distally. Right posterior inferior cerebellar artery: Patent. Left verte bral artery: No stenosis or occlusion. Left posterior inferior cerebellar artery: Patent. Basilar artery: Stenosis or occlusion. Right posterior cerebral artery: Moderate stenosis. No proximal occlusion. Left posterior cerebral artery: Mild/moderate stenosis. No perfusion. No aneurysm or vascular malformation EXTRACRANIAL CTA: GREAT VESSELS: Aortic arch: Bovine arch. RIGHT-SIDED EXTRACRANIAL SYSTEM: Right common carotid artery: No hemodynamically significant stenosis. Right proximal internal carotid artery: No hemodynamically significant stenosis. Right mid and distal internal carotid artery: No hemodynamically PAGE 2 Signed Report (CONTINUED) Name: DANIA JANE [facility] [place] : 1970 Age/S: 50 / F [address] [place] [address] Blvd Unit #: [id number] Loc: EMERY [place] [address] Phys: Berto Duggan MD Acct: [id number] Dis Date: Status: REG ER PHONE #: [phone] Exam Date: 06/20/2020 08 FAX #: [phone] Reason: left side numbness slurred speech EXAMS: CPT CODE: [id number] CT CEREBRAL PERF ANAL 87597 <Continued> significant stenosis.Right vertebral artery: Moderate/severe stenosis at the V1 segment. LEFT-SIDED EXTRACRANIAL SYSTEM: Left common carotid artery: No hemodynamically significant stenosis. Left proximal internal carotid artery: No hemodynamically significant stenosis. Left mid and distal internal carotid artery: No hemodynamically significant stenosis. Left vertebral artery: Unremarkable. Other findings: Respiratory artifact in the upper lobes. Partially imaged platelike atelectasis and thickening internal septa are present on prior. Redemonstration of nodular thyroid, which can be assessed with routine thyroid ultrasound. Anterior fusion at C4-C5. Comment: Any carotid artery stenosis measurements provided in the above report utilized a normal caliber distal carotid artery as the denominator according to NASCET criteria/recommendations. IMPRESSION: PerfusionCT: Negative CT perfusion study. Brain CTA: 1. No acute occlusion. 2. Moderate/severe stenosis of the M1 left MCA. 3. Moderate stenosis of the M2 rightMCA. 4. Moderate stenosis of the right [employer]OR [employer]UING and mild/moderate stenosis of the left [employer]. Neck CTA: 1. No hemodynamically significant stenosis of the internal carotid arteries. 2. Severe stenosis at the V1 right vertebral artery, without occlusion. 3. Normal caliber left vertebral artery. 4. Nodular thyroid can be assessedwith routine/outpatient ultrasound. Please note small basal ganglia lacunar infarct, posterior fossa and PAGE 3 Signed Report (CONTINUED) Name: DANIA JANE [facility] Jose Farmer : 1970 Age/S: 50 / F [address] [place] [address] Unit #: [id number] Loc: EMERY [place] [address] Phys: Berto Duggan MD Acct: [id number] Dis Date: Status: REG ER PHONE #: [phone] Exam Date: 06/20/2020 0855 FAX #: [phone] Reason: left side numbness slurred speech EXAMS: CPT CODE: [id number] CT CEREBRAL PERF ANAL 44636 <Continued> brainstem infarcts cannot be excluded from CT perfusion examination. MRI examination with diffusion- weighted imaging provides higher sensitivity. Dr. Vazquez discussed the results via phone with Dr. Werner at 9:52 AM, 06/20/2020 SL: [id number] at 0957 Reported and signed by: Emeka Vazquez M.D. CC: Tierra Man MD; Berto Duggan MD Te chnologist:Justo Vann, RT(R)(CT) CTDI: DLP: Trnscb Date/Time: 06/20/2020 (956) [email or web address] Orig Print D/T: S: 06/20/2020 (1000) PAGE 4 Signed Report- XR CHEST 1 [id number] 09:38:00[facility] : 1970 Sex: F FAX: Tierra Shepard MD [phone] Seth: St: REG FAX: Raj Duggan MD [phone] Name: DANIA JANE [facility] : 1970 Age/S: 50/F [address] [place] [address] Unit #: [id number] Loc: G.[address] [address] Phys: [id number] Dis Date: Status: REG ER PHONE #: [phone] Exam Date: 06/20/2020932 FAX #: [phone] Reason: stroke EXAMS: CPT CODE: [id number] XR CHEST 1 V 92833 XR CHEST 1 VIEW HISTORY: stroke. COMPARISON: None. FINDINGS: Lungs: No focal consolidation. Pleura : No pleural effusion. No pneumothorax. Cardiomediastinal silhouette: normal in size. Osseous structures: unremarkable. Impression: No acute changes. at 0938 Reported and signed by: Luigi Meier M.D. CC: Tierra Man MD; Berto Duggan MD Technologist: Anyi Yañez, RT(R); Iman Dunham RT(R) Trnmard Date/Time/By: 06/20/2020 (0938) : By: [email or web address] Orig Print D/T: S: 06/20/2020 (6442) PAGE 1 Signed ReportPROTHROMBIN [id number] 09:34:00 Test Item Value Reference Range Interpretation Comments PROTHROMBIN TIME 10.4 SECONDS 9.3-12.9 N PATIENT (test code = PTP) INTERNATIONAL NORMAL 1.0 0.8-1.2 N TARGET RATIO (test code = INR BY IN DICATION INR) Indication INR1. Prophyl axis of venous thrombos is 2.0 - 3. 0 (orthopedic doris ana), Prophylaxis of venous thrombos is (other than hig h-risk surgery), Kya tment of Deep Vein Thrombosis/Pulm onary Embolism, Preve ntion of systemic emb olism - Tissue heart va lves, Acute Myocardia l Infarction (to prevent systemic embo lism), Valvular heart disease, Atri al Fibrillation, Bileaflet mecha nical valve in aortic position.2. Mec hanical prosthetic valv es (high risk), 2.5 - 3.5 Presence of Lupus Anticoagu lant or Antiphospholi pid Antibodies, Pre vention of systemic e mbolism - Acute Myocard ial Infarction (t o prevent recurre nt infarct). COMMENTS: Code Neuro: Call with results if INR greater than 1.7 or PT greaterComment: [id number]: Code Neuro: Call with results if PTT greater than 40THROMBOPLASTIN TIME [id number] 09:34:00 Test Item Value Reference Range Interpretation Comments THROMBOPLASTIN TIME 28.6 Seconds 25.0-39.5 N Ther apeutic PARTIAL (test code = Range: 50.4 - 88.3 PTT) Seconds Effective 08/07/2018 COMMENTS: Code Neuro: Call with results if INR greater than 1.7 or PT greaterComment: [id number]: Code Neuro: Call with results if PTT greater than 40- CT HEAD/BRAIN W/O [id number] 09:33:00 [facility] 1970 Sex: F Name: DANIA JANE [facility] [place] : 1970 Age/S: 50 / F [address] [place] [address] Unit #: [id number] Loc: EMERY [place] [address] Phys: Berto Duggan MD Acct: [id number] Dis Date: Status: REG ER PHONE #: [phone] Exam Date: 06/20/2020854 FAX #: [phone] Reason: left side numbness slurred speech EXAMS: CPT CODE: [id number] CT HEAD/BRAIN W/O CONT 08824 Clinical Indication: Left-sided numbness and slurred speech Comparison: None TECHNIQUE: CT images were obtained from the foramen magnum to the vertex without the use of intravenous contrast on a multidetector CT. Axial, coronal and sagittal reformats created. Total exam DLP: 546.25 mGy-cm. DLP means dose length product, a radiation dose metric that does not report individual patient dose, but is a reference value related to the radiation output of the scanner used for this exam. CT imaging performed at this location utilizes radiation dose optimization techniques which include one or more of the following: -Automated exposure control -Adjustment of the mA and/or kV according to patient size -Use of iterative reconstruction technique FINDINGS: CALVARIUM AND SCALP: No acute fracture, or destructive osseous lesion. No scalp hematoma. VENTRICLES: No acute extra flows. EXTRA-AXIAL SPACES: No acute extra axial hemorrhage, fluid collection or mass effect. BRAIN PARENCHYMA: No acute parenchymal hemorrhage or large subacute infarction. Redemonstration of a small chronic infarction in the right striatocapsular region. Areas of low attenuation in the supratentorial white matter are nonspecific but favor mild microvascular ischemic changes. Intracranial atherosclerosis. Mildvolume loss. PARANASAL SINUSES AND MASTOID AIR CELLS: No fluid opacification. If there is further concern for intracranial pathology or acute stroke, MRI of the brainmay be performed for complete assessment. IMPRESSION: No acute intracranial hemorrhage, mass effect or large subacute PAGE 1 Signed Report (CONTINUED) Name: DANIA JANE [facility] [place] : 1970 Age/S: 50 / F [address] [place] [address] Unit #: [id number] Loc: EMERY [place] [address] Phys: Berto Duggan MD Acct: [id number] Dis Date: Status: REG ER PHONE #: [phone] Exam Date: 06/20/2020 08 FAX #: Reason: left side numbness slurred speech EXAMS: CPT CODE: [id number] CT HEAD/BRAIN W/O CONT 85183 <Continued> infarction. No change compared to the brain CT performed last year on 05/29/2019 SL: [id number] at 0933 Reported and signed by: Emeka Vazquez M.D. CC: Tierra Man MD; Berto Duggan MD Technologist:Justo Vann, RT(R)(CT) CTDI: DLP: Trnscb Date/Time: 06/20/2020 (932) [email or web address] OrigPrint D/T: S: 06/20/2020 (36) PAGE 2 Signed ReportPROTHROMBIN [id number] 09:30:00 Test Item Value Reference Range Interpretation Comments PROTHROMBIN TIME 10.4 SECONDS 9.3-12.9 N PATIENT (test code = PTP) INTERNATIONAL NORMAL 1.0 0.8-1.2 N TARGET RATIO (test code = INR BY IN DICATION INR) Indication INR1. Prophyl axis of venous thrombos is 2.0 - 3. 0 (orthopedic doris ana), Prophylaxis of venous thrombos is (other than hig h-risk surgery), Kya tment of Deep Vein Thrombosis/Pulm onary Embolism, Preve ntion of systemic emb olism - Tissue heart va lves, Acute Myocardia l Infarction (to prevent systemic embo lism), Valvular heart disease, Atri al Fibrillation, Bileaflet mecha nical valve in aortic position.2. Mec hanical prosthetic valv es (high risk), 2.5 - 3.5 Presence of Lupus Anticoagu lant or Antiphospholi pid Antibodies, Pre vention of systemic e mbolism - Acute Myocard ial Infarction (t o prevent recurre nt infarct). COMMENTS: Code Neuro: Call with results if INR greater than 1.7 or PT greaterComment: [id number]: Code Neuro: Call with results if PTT greater than 40THROMBOPLASTIN TIME [id number] 09:30:00 Test Item Value Reference Range Interpretation Comments THROMBOPLASTIN TIME PARTIAL (test Seconds 25.0-39.5 code = PTT) COMMENTS: Code Neuro: Call with results if INR greater than 1.7 or PT greaterComment: [id number]: Code Neuro: Call with results if PTT greater than 40BASIC METABOLIC [id number] 09:12:00 Test Item Value Reference Range Interpretation Comments SODIUM (test code = NA) 134 mEq/L 134-147 N POTASSIUM (test code = 3.9 mEq/L 3.4-5.0 N K) CHLORIDE (test code = 97 mEq/L 100-108 L CL) CARBON DIOXIDE (test 27 mEq/l 21-33 N code = CO2) ANION GAP (test code = 14 0-20 N GAP) GLUCOSE (test code = 580 mg/dL 70-110 HH Critica l result GLU) called to Adalgisa SEN SAW at 09 1Nurse read back resut and tech confirmed it's correct? Y BLOOD UREA NITROGEN 14 mg/dL 7-18 N (test code = BUN) GLOMERULAR FILTRATION 57.1 90-95 L Units of measure = RATE (test code = GFR) ml/mi n/1.73 m2 CREATININE (test code = 1.2 mg/dL 0.6-1.3 N CREAT) CALCIUM (test code = 9.9 mg/dL 8.0-10.5 N CA) [id number] 09:12:00 Test Item Value Reference Range Interpretation Comments TROPONIN-I < 0.006 ng/mL 0.000-0.045 N Negative: <= (test code = 0.045 Positive: TROPI) >= 0.046 Correl ation with serial results, other cardiac markers andclinical findings is nec essary to determine the clinicalsignifi cance of this result. Results using different metho dologies should not be c omparedto one another as carlyn titative results may hong y by method. ACETONE [id number] 09:12:00 Test Item Value Reference Range Interpretation Comments ACETONE QUANT NEGATIVE - See_Comment [Automated me ssage] (test code = <20mg/dL mg/dL The system wh ich ACETN) generated this result transmit irma reference range : NEG - <20. The refe rence range was not u sed to interpret th is result as normal/abnormal . CBC W/O [id number] 09:00:00 Test Item Value Reference Range Interpretation Comments WHITE BLOOD CELL (test code = 8.1 x10 3/uL 4.5-11.0 N WBC) RED BLOOD CELL (test code = 4.46 x10 6/uL 3.54-5.02 N RBC) HEMOGLOBIN (test code = HGB) 13.1 g/dL 11.0-15.0 N HEMATOCRIT (test code = HCT) 40.6 % 33.0-45.0 N MEAN CELL VOLUME (test code = 91.0 fL 81.0-99.0 N MCV) MEAN CELL HGB (test code = MCH) 29.4 pg 27.0-33.0 N MEAN CELL HGB CONCETRATION 32.3 g/dL 33.0-37.0 L (test code = MCHC) RED CELL DISTRIBUTION WIDTH CV 13.0 % 11.5-14.5 N (test code = RDW) RED CELL DISTRIBUTION WIDTH SD 43.0 fL 37.0-54.0 N (test code = RDW-SD) PLATELET COUNT (test code = 269 x10 3/uL 150-400 N PLT) MEAN PLATELET VOLUME (test code 12.2 fL 7.0-9.0 H = MPV) COMMENTS: Code Neuro: Call with results if platelet count is less than Comment: 100,000/ac9YSTWP METABOLIC [id number] 09:00:00 Test Item Value Reference Range Interpretation Comments SODIUM (test code = NA) mEq/L 134-147 POTASSIUM (test code = K) mEq/L 3.4-5.0 CHLORIDE (test code = CL) mEq/L 100-108 CARBON DIOXIDE (test code = CO2) mEq/l 21-33 ANION GAP (test code = GAP) 0-20 GLUCOSE (test code = GLU) mg/dL 70-110 BLOOD UREA NITROGEN (test code = BUN) mg/dL 7-18 GLOMERULAR FILTRATION RATE (test code 90-95 = GFR) CREATININE (test code = CREAT) mg/dL 0.6-1.3 CALCIUM (test code = CA) mg/dL 8.0-10.5 [id number] 09:00:00 Test Item Value Reference Range Interpretation Comments TROPONIN-I (test code = TROPI) ng/mL 0.000-0.045 ACETONE [id number] 09:00:00 Test Item Value Reference Range Interpretation Comments ACETONE QUANT NEGATIVE - See_Comment [Automated me ssage] (test code = <20mg/dL mg/dL The system wh ich ACETN) generated this result transmit irma reference range : NEG - <20. The refe rence range was not u sed to interpret th is result as normal/abnormal . CBC W/O [id number] 08:53:00 Test Item Value Reference Range Interpretation Comments WHITE BLOOD CELL (test code = x10 3/uL 4.5-11.0 WBC) RED BLOOD CELL (test code = RBC) x10 6/uL 3.54-5.02 HEMOGLOBIN (test code = HGB) 13.1 g/dL 11.0-15.0 N HEMATOCRIT (test code = HCT) 40.6 % 33.0-45.0 N MEAN CELL VOLUME (test code = fL 81.0-99.0 MCV) MEAN CELL HGB (test code = MCH) pg 27.0-33.0 MEAN CELL HGB CONCETRATION (test g/dL 33.0-37.0 code = MCHC) RED CELL DISTRIBUTION WIDTH CV % 11.5-14.5 (test code = RDW) PLATELET COUNT (test code = PLT) 269 x10 3/uL 150-400 N COMMENTS: Code Neuro: Call with results if platelet count is less than Comment: 100,000/[id number] 08:48:00 Test Item Value Reference Range Interpretation Comments GLUBED (test code = 538 MG/DL 70-110 H Performe d by certified GLUBED) 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 [facility] [id number] 07:52:00 Test Item Value Reference Range Interpretation Comments GLUBED (test code = 241 MG/DL 70-110 H Performe d by certified GLUBED) 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 [facility] [id number] 05:59:00 Test Item Value Reference Range Interpretation Comments GLUBED (test code = 262 MG/DL 70-110 H Performe d by certified GLUBED) 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 [facility] [id number] 01:18:00 Test Item Value Reference Range Interpretation Comments GLUBED (test code = 219 MG/DL 70-110 H Performe d by certified GLUBED) 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 [facility] [id number] 20:49:00 Test Item Value Reference Range Interpretation Comments GLUBED (test code = 279 MG/DL 70-110 H Performe d by certified GLUBED) 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 [facility] [id number] 17:53:00 Test Item Value Reference Range Interpretation Comments GLUBED (test code = 235 MG/DL 70-110 H Performe d by certified GLUBED) 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 [facility] [id number] 12:26:00 Test Item Value Reference Range Interpretation Comments GLUBED (test code = 214 MG/DL 70-110 H Performe d by certified GLUBED) 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 [facility] [id number] 08:48:00 Test Item Value Reference Range Interpretation Comments GLUBED (test code = 327 MG/DL 70-110 H Performe d by certified GLUBED) 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 [facility] COMPREHENSIVE METABOLIC [id number] 08:43:00 Test Item Value Reference Range Interpretation Comments SODIUM (test code = NA) 137 mEq/L 134-147 N POTASSIUM (test code = 3.7 mEq/L 3.4-5.0 N K) CHLORIDE (test code = 103 mEq/L 100-108 N CL) CARBON DIOXIDE (test 26 mEq/L 21-33 code = CO2) ANION GAP (test code = 12 0-20 N GAP) GLUCOSE (test code = 283 mg/dL 70-110 H GLU) BLOOD UREA NITROGEN 15 mg/dL 7-18 N (test code = BUN) GLOMERULAR FILTRATION 106.7 90-95 H Units of measure = RATE (test code = GFR) ml/mi n/1.73 m2 CREATININE (test code = 0.7 mg/dL 0.6-1.3 N CREAT) TOTAL PROTEIN (test 7.1 g/dL 6.4-8.2 N code = PROT) ALBUMIN (test code = 3.00 g/dL 3.4-5.0 L ALB) CALCIUM (test code = 8.6 mg/dL 8.0-10.5 N CA) BILIRUBIN TOTAL (test 0.2 MG/DL <1.5 code = BILT) SGOT/AST (test code = 13 IUnit/L 15-37 L AST) SGPT/ALT (test code = 27 IUnit/L 15-65 N ALT) ALKALINE PHOSPHATASE 97 IUnit/L 20-125 N TOTAL (test code = ALKP) CBC W/AUTO [id number] 07:31:00 Test Item Value Reference Range Interpretation Comments WHITE BLOOD CELL (test code = 7.82 x10 3/uL 4.5-11.0 N WBC) RED BLOOD CELL (test code = 3.44 x10 6/uL 3.54-5.02 L RBC) HEMOGLOBIN (test code = HGB) 10.7 g/dL 11.0-15.0 L HEMATOCRIT (test code = HCT) 33.4 % 33.0-45.0 N MEAN CELL VOLUME (test code = 97.1 fL 81.0-99.0 N MCV) MEAN CELL HGB (test code = MCH) 31.1 pg 27.0-33.0 N MEAN CELL HGB CONCETRATION 32.0 g/dL 33.0-37.0 L (test code = MCHC) RED CELL DISTRIBUTION WIDTH CV 13.3 % 11.5-14.5 N (test code = RDW) RED CELL DISTRIBUTION WIDTH SD 46.7 fL 37.0-54.0 N (test code = RDW-SD) PLATELET COUNT (test code = 272 x10 3/uL 150-400 N PLT) MEAN PLATELET VOLUME (test code 11.8 fL 7.0-9.0 H = MPV) NEUTROPHIL % (test code = NT%) 60.9 % 56.0-77.0 N IMMATURE GRANULOCYTE % (test 0.3 % 0.0-2.0 N code = IG%) LYMPHOCYTE % (test code = LY%) 26.1 % 14.0-32.0 N MONOCYTE % (test code = MO%) 8.2 % 4.8-9.0 N EOSINOPHIL % (test code = EO%) 3.5 % 0.3-3.7 N BASOPHIL % (test code = BA%) 1.0 % 0.0-2.0 N NUCLEATED RBC % (test code = 0.0 % 0-0 N NRBC%) NEUTROPHIL # (test code = NT#) 4.77 x10 3/uL 2.0-7.6 N IMMATURE GRANULOCYTE # (test 0.02 x10 3/uL 0.00-0.03 N code = IG#) LYMPHOCYTE # (test code = LY#) 2.04 x10 3/uL 1.0-3.8 N MONOCYTE # (test code = MO#) 0.64 x10 3/uL 0.1-0.8 N EOSINOPHIL # (test code = EO#) 0.27 x10 3/uL 0.0-0.2 H BASOPHIL # (test code = BA#) 0.08 x10 3/uL 0.0-0.2 N NUCLEATED RBC # (test code = 0.00 x10 3/uL 0.0-0.1 N NRBC#) MANUAL DIFF REQUIRED (test code NO = MDIFF) [id number] 06:25:00 Test Item Value Reference Range Interpretation Comments GLUBED (test code = 296 MG/DL 70-110 H Performe d by certified GLUBED) 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 [facility] [id number] 05:27:00 Test Item Value Reference Range Interpretation Comments GLUBED (test code = 261 MG/DL 70-110 H Performe d by certified GLUBED) 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 [facility] [id number] 23:11:00 Test Item Value Reference Range Interpretation Comments GLUBED (test code = 333 MG/DL 70-110 H Performe d by certified GLUBED) 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 [facility] [id number] 17:58:00 Test Item Value Reference Range Interpretation Comments GLUBED (test code = 319 MG/DL 70-110 H Performe d by certified GLUBED) 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 [facility] [id number] 12:58:00 Test Item Value Reference Range Interpretation Comments GLUBED (test code = 309 MG/DL 70-110 H Performe d by certified GLUBED) 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 [facility] [id number] 11:07:00 Test Item Value Reference Range Interpretation Comments HGBA1C% (test code = HGBA1C%) 14.2 %A1C 4.8-6.0 H [id number] 08:48:00 Test Item Value Reference Range Interpretation Comments GLUBED (test code = 312 MG/DL 70-110 H Performe d by certified GLUBED) 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 [facility] CBC W/AUTO [id number] 08:11:00 Test Item Value Reference Range Interpretation Comments WHITE BLOOD CELL (test code = 7.90 x10 3/uL 4.5-11.0 N WBC) RED BLOOD CELL (test code = 3.68 x10 6/uL 3.54-5.02 N RBC) HEMOGLOBIN (test code = HGB) 11.2 g/dL 11.0-15.0 N HEMATOCRIT (test code = HCT) 34.7 % 33.0-45.0 N MEAN CELL VOLUME (test code = 94.3 fL 81.0-99.0 N MCV) MEAN CELL HGB (test code = MCH) 30.4 pg 27.0-33.0 N MEAN CELL HGB CONCETRATION 32.3 g/dL 33.0-37.0 L (test code = MCHC) RED CELL DISTRIBUTION WIDTH CV 13.2 % 11.5-14.5 N (test code = RDW) RED CELL DISTRIBUTION WIDTH SD 45.1 fL 37.0-54.0 N (test code = RDW-SD) PLATELET COUNT (test code = 279 x10 3/uL 150-400 N PLT) MEAN PLATELET VOLUME (test code 11.5 fL 7.0-9.0 H = MPV) NEUTROPHIL % (test code = NT%) 66.1 % 56.0-77.0 N IMMATURE GRANULOCYTE % (test 0.4 % 0.0-2.0 N code = IG%) LYMPHOCYTE % (test code = LY%) 21.8 % 14.0-32.0 N MONOCYTE % (test code = MO%) 7.7 % 4.8-9.0 N EOSINOPHIL % (test code = EO%) 3.2 % 0.3-3.7 N BASOPHIL % (test code = BA%) 0.8 % 0.0-2.0 N NUCLEATED RBC % (test code = 0.0 % 0-0 N NRBC%) NEUTROPHIL # (test code = NT#) 5.23 x10 3/uL 2.0-7.6 N IMMATURE GRANULOCYTE # (test 0.03 x10 3/uL 0.00-0.03 N code = IG#) LYMPHOCYTE # (test code = LY#) 1.72 x10 3/uL 1.0-3.8 N MONOCYTE # (test code = MO#) 0.61 x10 3/uL 0.1-0.8 N EOSINOPHIL # (test code = EO#) 0.25 x10 3/uL 0.0-0.2 H BASOPHIL # (test code = BA#) 0.06 x10 3/uL 0.0-0.2 N NUCLEATED RBC # (test code = 0.00 x10 3/uL 0.0-0.1 N NRBC#) MANUAL DIFF REQUIRED (test code NO = MDIFF) COMPREHENSIVE METABOLIC [id number] 07:12:00 Test Item Value Reference Range Interpretation Comments SODIUM (test code = NA) 131 mEq/L 134-147 L POTASSIUM (test code = 3.9 mEq/L 3.4-5.0 N K) CHLORIDE (test code = 103 mEq/L 100-108 N CL) CARBON DIOXIDE (test 19 mEq/L 21-33 L code = CO2) ANION GAP (test code = 13 0-20 N GAP) GLUCOSE (test code = 312 mg/dL 70-110 H GLU) BLOOD UREA NITROGEN 12 mg/dL 7-18 N (test code = BUN) GLOMERULAR FILTRATION 91.5 90-95 N Units of measure = RATE (test code = GFR) ml/mi n/1.73 m2 CREATININE (test code = 0.8 mg/dL 0.6-1.3 N CREAT) TOTAL PROTEIN (test 7.8 g/dL 6.4-8.2 N code = PROT) ALBUMIN (test code = 3.00 g/dL 3.4-5.0 L ALB) CALCIUM (test code = 9.1 mg/dL 8.0-10.5 N CA) BILIRUBIN TOTAL (test 0.3 MG/DL <1.5 N code = BILT) SGOT/AST (test code = 20 IUnit/L 15-37 N AST) SGPT/ALT (test code = 25 IUnit/L 15-65 N ALT) ALKALINE PHOSPHATASE 84 IUnit/L 20-125 N TOTAL (test code = ALKP) COMMENTS: Fasting in AMLIPID PROFILE (CORONARY RISK)2019-10-02 07:12:00 Test Item Value Reference Range Interpretation Comments TRIGLYCERIDES (test 409 mg/dL 40-150 H code = TRIG) CHOLESTEROL (test 321 mg/dL <200 H code = CHOL) CHOLESTEROL/HDL 8.03 RATIO 3.27-4.44 H RISK ASSOCIA IRMA WITH RATIO (test code = CHOL/HDL RATIOS: RISK CHOLHDL) MALE FEMALE1/2 AVERA GE 3.43 3.27AVERAGE 4.97 4.4 42X AVERAGE 9.55 7.053X AVER AGE 23.39 1 1.04 NOTE THAT THE R EFERENCE VALUE IS RELATE DTO RISK LEVELS RECOM MENDED BY THE NATL.HEA RT, LUNG, AND BLOOD INST. HDL CHOLESTEROL 40.0 mg/dL 39-96 N (test code = HDL) LIPOPROTEIN LDL 214 mg/dL 0-100 H <100 OPT WCES330-704 (test code = LDL) NEAR OPTI MAL/ABOVE [id number] [id number] 89 HIGH>EV=997 VE RY HIGH*Guidelines provided by the National Choles terol EducationProgra m Adult Treatment Panel III COMMENTS: Fasting in [id number] 07:12:00 Test Item Value Reference Range Interpretation Comments TROPONIN-I < 0.015 ng/mL 0.000-0.045 N Negative: <= (test code = 0.045 Positive: TROPI) >= 0.046 Correl ation with serial results, other cardiac markers andclinical findings is nec essary to determine the clinicalsignifi cance of this result. Results using different metho dologies should not be c omparedto one another as carlyn titative results may hong y by method. COMMENTS: Fasting in [id number] 05:39:00 Test Item Value Reference Range Interpretation Comments GLUBED (test code = 336 MG/DL 70-110 H Performe d by certified GLUBED) 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 [facility] [id number] 01:28:00 Test Item Value Reference Range Interpretation Comments GLUBED (test code = 352 MG/DL 70-110 H Performe d by certified GLUBED) 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 [facility] TSH REFLEX TO [id number] 21:54:00 Test Item Value Reference Range Interpretation Comments TSH REFLEX TO FT4 (test code = 3.55 IU/mL 0.42-5.47 N TSHREFLEX) [id number] 21:54:00 Test Item Value Reference Range Interpretation Comments TROPONIN-I < 0.015 ng/mL 0.000-0.045 N Negative: <= (test code = 0.045 Positive: TROPI) >= 0.046 Correl ation with serial results, other cardiac markers andclinical findings is nec essary to determine the clinicalsignifi cance of this result. Results using different metho dologies should not be c omparedto one another as carlyn titative results may hong y by method. [id number] 21:13:00 Test Item Value Reference Range Interpretation Comments GLUBED (test code = 233 MG/DL 70-110 H Performe d by certified GLUBED) 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 [facility] Coronavirus 2019 nCoV [id number] 15:40:00 Test Item Value Reference Range Interpretation Comments Coronavirus 2019 Negative Negative Negative re sults should be nCoV Bedside (test treated a s presumptive and, code = ifinconsistent with [id number]) clinical signs and symptoms or necessaryfor patient management, michael uld be tested with an alternativemole cular assay. Negative result s do not preclude WSXE-[id number]-7ynaam tion and should not be u sed as the sole basis forp atient management deci sions. Negative result s should beconsidered in the context of a patient's recent exposures,histo ry, presence of clinical sig ns and symptoms consis tentwith COVID-19. Acknowledged? [id number] 12:51:00 Test Item Value Reference Range Interpretation Comments GLUBED (test code = 302 MG/DL 70-110 H Performe d by certified GLUBED) 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 [facility] - XR CHEST 1 [id number] 12:30:00 FAX: Lorena Benitez MD [phone] Seth: St: PRE FAX: Tierra Shepard MD [phone] Name: DANIA JANE [facility] : 1970 Age/S: 49/F [address] [place] [address] Unit #: [id number] Loc: [place] [address] Phys: Lorena New MD Acct: [id number] Dis Date: Status: PRE ER PHONE #: [phone] Exam Date: 10/01/2019 1225 FAX #: [phone] Reason: stroke EXAMS: CPT CODE: [id number] XR CHEST 1 V 11738 PROCEDURE: CH EST SINGLE VIEW INDICATION: stroke COMPARISON: Multiple priors, most recent 05/27/2019 FINDINGS: AP portable chest obtained with patient semiupright. EKG leads overlie the chest. There are a few thin bandlike opacities in the left mid lung zone. The lungs are otherwise clear allowing for portable technique. Mild elevation right hemidiaphragm, stable. No pleural abnormality. The cardiomediastinal silhouette is stable and normalfor projection as is the pulmonary vasculature. There is no acute skeletal abnormality. IMPRESSION: 1. Subsegmental atelectasis left midlung zone. 2. Otherwise, no acute findings. SL: [id number] at 1230 Reported and signed by: Petey Hassan M.D. CC: Lorena New MD; Tierra Man MD Technologist: Merry Triana RT(R) Trnscrd Date/Time/By: 10/01/2019 (1230) : By: ChelyKWL Orig Print D/T: S: 10/01/2019 (2513) PAGE 1 Signed ReportBASIC METABOLIC [id number] 12:26:00 Test Item Value Reference Range Interpretation Comments SODIUM (test code = NA) mEq/L 134-147 POTASSIUM (test code = K) mEq/L 3.4-5.0 CHLORIDE (test code = CL) mEq/L 100-108 CARBON DIOXIDE (test code = CO2) mEq/L 21-33 ANION GAP (test code = GAP) 0-20 GLUCOSE (test code = GLU) mg/dL 70-110 BLOOD UREA NITROGEN (test code = BUN) mg/dL 7-18 GLOMERULAR FILTRATION RATE (test code 90-95 = GFR) CREATININE (test code = CREAT) mg/dL 0.6-1.3 CALCIUM (test code = CA) mg/dL 8.0-10.5 [id number] 12:26:00 Test Item Value Reference Range Interpretation Comments TROPONIN-I < 0.015 ng/mL 0.000-0.045 N Negative: <= (test code = 0.045 Positive: TROPI) >= 0.046 Correl ation with serial results, other cardiac markers andclinical findings is nec essary to determine the clinicalsignifi cance of this result. Results using different metho dologies should not be c omparedto one another as carlyn titative results may hong y by method. BASIC METABOLIC [id number] 12:26:00 Test Item Value Reference Range Interpretation Comments SODIUM (test code = NA) 135 mEq/L 134-147 N POTASSIUM (test code = 4.5 mEq/L 3.4-5.0 N K) CHLORIDE (test code = 102 mEq/L 100-108 N CL) CARBON DIOXIDE (test 27 mEq/L 21-33 N code = CO2) ANION GAP (test code = 11 0-20 N GAP) GLUCOSE (test code = 309 mg/dL 70-110 H GLU) BLOOD UREA NITROGEN 14 mg/dL 7-18 N (test code = BUN) GLOMERULAR FILTRATION 79.9 90-95 L Units of measure = RATE (test code = GFR) ml/mi n/1.73 m2 CREATININE (test code = 0.9 mg/dL 0.6-1.3 N CREAT) CALCIUM (test code = 8.9 mg/dL 8.0-10.5 N CA) [id number] 12:26:00 Test Item Value Reference Range Interpretation Comments TROPONIN-I < 0.015 ng/mL 0.000-0.045 N Negative: <= (test code = 0.045 Positive: TROPI) >= 0.046 Correl ation with serial results, other cardiac markers andclinical findings is nec essary to determine the clinicalsignifi cance of this result. Results using different metho dologies should not be c omparedto one another as carlyn titative results may hong y by method. PROTHROMBIN [id number] 12:21:00 Test Item Value Reference Range Interpretation Comments PROTHROMBIN TIME 11.4 SECONDS 9.3-12.9 N PATIENT (test code = PTP) INTERNATIONAL NORMAL 1.0 0.8-1.2 N TARGET RATIO (test code = INR BY IN DICATION INR) Indication INR1. Prophyl axis of venous thrombos is 2.0 - 3. 0 (orthopedic doris ana), Prophylaxis of venous thrombos is (other than hig h-risk surgery), Kya tment of Deep Vein Thrombosis/Pulm onary Embolism, Preve ntion of systemic emb olism - Tissue heart va lves, Acute Myocardia l Infarction (to prevent systemic embo lism), Valvular heart disease, Atri al Fibrillation, Bileaflet mecha nical valve in aortic position.2. Mec hanical prosthetic valv es (high risk), 2.5 - 3.5 Presence of Lupus Anticoagu lant or Antiphospholi pid Antibodies, Pre vention of systemic e mbolism - Acute Myocard ial Infarction (t o prevent recurre nt infarct). THROMBOPLASTIN TIME [id number] 12:21:00 Test Item Value Reference Range Interpretation Comments THROMBOPLASTIN TIME 33.0 Seconds 25.0-39.5 N Ther apeutic PARTIAL (test code = Range: 50.4 - 88.3 PTT) Seconds Effective 08/07/2018 PROTHROMBIN [id number] 12:19:00 Test Item Value Reference Range Interpretation Comments PROTHROMBIN TIME 11.4 SECONDS 9.3-12.9 N PATIENT (test code = PTP) INTERNATIONAL NORMAL 1.0 0.8-1.2 N TARGET RATIO (test code = INR BY IN DICATION INR) Indication INR1. Prophyl axis of venous thrombos is 2.0 - 3. 0 (orthopedic doris ana), Prophylaxis of venous thrombos is (other than hig h-risk surgery), Kya tment of Deep Vein Thrombosis/Pulm onary Embolism, Preve ntion of systemic emb olism - Tissue heart va lves, Acute Myocardia l Infarction (to prevent systemic embo lism), Valvular heart disease, Atri al Fibrillation, Bileaflet mecha nical valve in aortic position.2. Mec hanical prosthetic valv es (high risk), 2.5 - 3.5 Presence of Lupus Anticoagu lant or Antiphospholi pid Antibodies, Pre vention of systemic e mbolism - Acute Myocard ial Infarction (t o prevent recurre nt infarct). THROMBOPLASTIN TIME [id number] 12:19:00 Test Item Value Reference Range Interpretation Comments THROMBOPLASTIN TIME PARTIAL (test Seconds 25.0-39.5 code = PTT) - CT HEAD/BRAIN W/O [id number] 12:17:00 [facility] : 1970 Age/S: 49 / F [address] [place] [address] Unit #: [id number] Loc: [place] [id number] Phys: Lorena New MD Acct: [id number] Dis Date: Status: PRE ER PHONE #: [phone] Exam Date: 10/01/2019 1206 FAX #: [phone] Reason: LEFT SIDED WEAKNESS EXAMS: CPTCODE: [id number] CT HEAD/BRAIN W/O CONT 29624 CT head without contrast 10/01/2019 HISTORY: Right-sided weakness PROCEDURE: Multiple axial images from the skull base to the skull vertex were obtained without contrast. Coronal and sagittal reconstructed CT imaging performed at this location utilizes radiation dose optimization techniques which include one or more of the following: -Automated exposure control -Adjustment of the mA and/or kV according to patient size -Use of iterative reconstr uction technique CT Radiation Dose DLP 395.82 mGy-cm Comparison is made to 05/29/2019 FINDINGS: No acute intracranial hemorrhage, midline shift, extra-axial fluid collection, or hydrocephalus is present. No cortical hypodensity to suggest an acute infarct present. There is an old right basal ganglia lacunar infarct. The visualized mastoid air cells are clear. There is no paranasal sinus air-fluid level. IMPRESSION: 1. No acute intracranial abnormality. 2. Old right basal ganglia lacunar infarct. Findings were telephoned to the ER at 12:12 PM on 10/01/2019. Findings were discussed Dr. iRchey by Dr. Zuñiga at 12:17 PM on 10/01/2019. SL: [id number] at 1217 Reported and signed by: Manny Zuñiga M.D. CC: Lorena New MD; Tierra Man MD Technologist:Rey Bonner, RT(R)(CT); Ros CTDI: DLP: Trnscb Date/Time: 10/01/2019 (2576) MarcoR.[email or web address] Orig Print D/T: S: 10/01/2019 (7842) PAGE 1 Signed ReportCBC W/O [id number] 12:08:00 Test Item Value Reference Range Interpretation Comments WHITE BLOOD CELL (test code = 9.63 x10 3/uL 4.5-11.0 N WBC) RED BLOOD CELL (test code = 3.70 x10 6/uL 3.54-5.02 N RBC) HEMOGLOBIN (test code = HGB) 11.4 g/dL 11.0-15.0 N HEMATOCRIT (test code = HCT) 34.4 % 33.0-45.0 N MEAN CELL VOLUME (test code = 93.0 fL 81.0-99.0 N MCV) MEAN CELL HGB (test code = MCH) 30.8 pg 27.0-33.0 N MEAN CELL HGB CONCETRATION 33.1 g/dL 33.0-37.0 N (test code = MCHC) RED CELL DISTRIBUTION WIDTH CV 13.0 % 11.5-14.5 N (test code = RDW) RED CELL DISTRIBUTION WIDTH SD 43.4 fL 37.0-54.0 N (test code = RDW-SD) PLATELET COUNT (test code = 270 x10 3/uL 150-400 N PLT) MEAN PLATELET VOLUME (test code 11.8 fL 7.0-9.0 H = MPV) [id number] 13:47:00 Test Item Value Reference Range Interpretation Comments GLUBED (test code = 273 MG/DL 70-110 H Performe d by certified GLUBED) 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 [facility] [id number] 08:48:00 Test Item Value Reference Range Interpretation Comments GLUBED (test code = 327 MG/DL 70-110 H Performe d by certified GLUBED) 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 [facility] [id number] 20:38:00 Test Item Value Reference Range Interpretation Comments GLUBED (test code = 349 MG/DL 70-110 H Performe d by certified GLUBED) 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 [facility] [id number] 18:16:00 Test Item Value Reference Range Interpretation Comments GLUBED (test code = 257 MG/DL 70-110 H Performe d by certified GLUBED) 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 [facility] [id number] 13:07:00 Test Item Value Reference Range Interpretation Comments GLUBED (test code = 273 MG/DL 70-110 H Performe d by certified GLUBED) 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 [facility] [id number] 09:01:00 Test Item Value Reference Range Interpretation Comments GLUBED (test code = 273 MG/DL 70-110 H Performe d by certified GLUBED) 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 [facility] [id number] 20:47:00 Test Item Value Reference Range Interpretation Comments GLUBED (test code = 225 MG/DL 70-110 H Performe d by certified GLUBED) 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 [facility] [id number] 17:46:00 Test Item Value Reference Range Interpretation Comments GLUBED (test code = 240 MG/DL 70-110 H Performe d by certified GLUBED) 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 [facility] [id number] 12:59:00 Test Item Value Reference Range Interpretation Comments GLUBED (test code = 220 MG/DL 70-110 H Performe d by certified GLUBED) 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 [facility] [id number] 08:43:00 Test Item Value Reference Range Interpretation Comments GLUBED (test code = 317 MG/DL 70-110 H Performe d by certified GLUBED) 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 [facility] [id number] 21:56:00 Test Item Value Reference Range Interpretation Comments GLUBED (test code = 256 MG/DL 70-110 H Performe d by certified GLUBED) 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 [facility] [id number] 19:37:00 Test Item Value Reference Range Interpretation Comments GLUBED (test code = 291 MG/DL 70-110 H Performe d by certified GLUBED) 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 [facility] [id number] 17:56:00 Test Item Value Reference Range Interpretation Comments GLUBED (test code = 247 MG/DL 70-110 H Performe d by certified GLUBED) 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 [facility] [id number] 12:52:00 Test Item Value Reference Range Interpretation Comments GLUBED (test code = 350 MG/DL 70-110 H Performe d by certified GLUBED) 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 [facility] [id number] 09:20:00 Test Item Value Reference Range Interpretation Comments GLUBED (test code = 241 MG/DL 70-110 H Performe d by certified GLUBED) 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 [facility] [id number] 06:54:00 Test Item Value Reference Range Interpretation Comments GLUBED (test code = 104 MG/DL 70-110 N Performe d by certified GLUBED) 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 [facility] [id number] 06:54:00 Test Item Value Reference Range Interpretation Comments GLUBED (test code = 94 MG/DL 70-110 N Performe d by certified GLUBED) 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 [facility] [id number] 20:02:00 Test Item Value Reference Range Interpretation Comments GLUBED (test code = 114 MG/DL 70-110 H Performe d by certified GLUBED) 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 [facility] - CT HEAD/BRAIN W/O [id number] 17:49:00 Name: DANIA JANE [facility] : 1970 Age/S: 48 / F [address] [place] [address] Unit #: [id number] Loc: [place] [id number] Phys: Tami Miguel MD Acct: [id number] Dis Date: Status: ADM IN PHONE #: [phone] Exam Date: 05/29/2019 1726 FAX #: [phone] Reason: INCREASED L SIDED WEAKNESS EXAMS: CPTCODE: [id number] CT HEAD/BRAIN W/O CONT 93544 Clinical Indication: Increased left-sided weakness Comparison: Prior CT brain study dated 05/28/2019. TECHNIQUE: CT images were obtained from the [...] iterative reconstruction technique CT Radiation Dose DLP 469.1 mGy-cm FINDINGS: BRAIN PARENCHYMA: Old lacunar infarct in the right basal ganglia, unchanged. There are normal harmon-white interfaces, sulci and gyri. There are no focal mass lesions on this noncontrast head CT. There isno mass effect, midline shift or edema. There are no intra-axial or extra-axial fluid collections, intraventricular or intraparenchymal hemorrhage. The pineal, sellar, brainstem, cerebellumand skull base regions appear unremarkable. VENTRICLES: The lateral ventricles, t hird and fourth ventricles appear unremarkable. The basilar cisterns are normal. ORBITS, MASTOIDS AND PARANASAL SINUSES: Bilateral pseudophakia. Paranasal sinuses are unremarkable. The mastoid air cells are clear. SKULL: There are no osseous abnormalities. If there is further concern for intracranial pathology or acute stroke, MRI of the brain may be performed for complete assessment. IMPRESSION: Old lacunar infarct in the right basal ganglia, unchanged. No acute intracranial hemorrhage or midline shift. If there is further concern for intracranial pathology or acutestroke, MRI of the brain may be performed for complete assessment. Findings discussed with Physician: Tami Anderson MD on 05/29/2019 at 5:35 PM via telephone. PAGE 1 Signed Report (CONTINUED) Name: DANIA JANE [facility] : 1970 Age/S: 48 / F [address] [place] [address] Unit #: [id number] Loc: [place] [address] Phys: Tami Bonds MD Acct: [id number] Dis Date: Status: ADM IN PHONE #: [phone] Exam Date: FAX #: [phone] Reason: INCREASED L SIDED WEAKNESS EXAMS: CPT CODE: [id number] CT HEAD/BRAINW/O CONT 48190 <Continued> SL: APATIL-H at 1749 Reported and signed by: Jessi Levi M.D. CC: Sammy Montoya MD; Tami Anderson MD; Tierra Man MD Technologist:RT Joseph(R) CTDI: DLP: Trnscb Date/Time: 05/29/2019 (174) ChelyVB9 Orig Print D/T: S: 05/29/2019 (1102) PAGE 2 Signed [id number] 12:26:00 Test Item Value Reference Range Interpretation Comments GLUBED (test code = 288 MG/DL 70-110 H Performe d by certified GLUBED) 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 [facility] [id number] 08:41:00 Test Item Value Reference Range Interpretation Comments GLUBED (test code = 257 MG/DL 70-110 H Performe d by certified GLUBED) 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 [facility] DRUGS OF ABUSE SCREEN [id number] 08:21:00 Test Item Value Reference Range Interpretation Comments URN COCAINE (test code NEGATIVE NEGATIVE = COCAURN) URN CANNABINOIDS (test NEGATIVE NEGATIVE code = CANNABURN) URN AMPHETAMINE (test NEGATIVE NEGATIVE code = AMPHETURN) URN BARBITURATE (test NEGATIVE NEGATIVE code = BARBITURN) URN BENZODIAZEPINE NEGATIVE NEGATIVE Cut-off v alue:200 (test code = BENZOURN) ng/mL URN OPIATES (test code NEGATIVE NEGATIVE Cut-o ff value:2000 = OPIATURN) ng/mL URN PHENCYCLIDINE (PCP) NEGATIVE NEGATIVE Cuto ffs:Barbiturates (test code = PHENCURN) 200 ng/mLBenzodiaze pines 200 ng/ mLTHC Cannabinoids 50 ng/mLOpiates(Mo rphine) 2000 ng/mLAmphetamin e 1000 ng/mLCocaine 300 ng/ mLPCP phencyclidine 25 ng/mL Unconf irmed screening resul ts shouldnot be us ed for non-medical pur poses. URINALYSIS [id number] 07:58:00 Test Item Value Reference Range Interpretation Comments UA COLOR (test code = COLU) CLAUDIA YEL/STRAW A UA APPEARANCE (test code = TURBID CLEAR A APPU) UA GLUCOSE DIPSTICK (test code 3+ NEGATIVE A = DGLUU) UA BILIRUBIN DIPSTICK (test NEGATIVE NEGATIVE code = BILU) UA KETONE DIPSTICK (test code = NEGATIVE NEGATIVE KETU) UA SPECIFIC GRAVITY (test code 1.022 1.005-1.030 N = SGU) UA BLOOD DIPSTICK (test code = NEGATIVE NEGATIVE ELVIRA) UA PH DIPSTICK (test code = 5.0 5.0-7.0 N TY) UA PROTEIN DIPSTICK (test code 1+ NEGATIVE A = PROU) UA UROBILINIOGEN DIPSTICK (test 0.2 mg/dL 0.2-1.0 code = URO) UA NITRITE DIPSTICK (test code NEGATIVE NEGATIVE = CARLOTA) UA LEUKOCYTE ESTERASE DIPSTICK 3+ NEGATIVE A (test code = LEUU) UA RBC (test code = RBCU) 11-20 RBC/HPF 0-3 UA WBC NO REFLEX (test code = >50 WBC/HPF 0-3 A WBCUCL) UA BACTERIA (test code = BACU) 4+ /HPF NONE SEEN A UA SQUAMOUS CELLS (test code = 6-10 /HPF NONE SEEN A SQU) UA MUCUS (test code = MUCU) 3+ /LPF NONE SEEN A [id number] 21:29:00 Test Item Value Reference Range Interpretation Comments GLUBED (test code = 163 MG/DL 70-110 H Performe d by certified GLUBED) 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 [facility] [id number] 16:56:00 Test Item Value Reference Range Interpretation Comments GLUBED (test code = 213 MG/DL 70-110 H Performe d by certified GLUBED) 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 [facility] - CT HEAD/BRAIN W/O [id number] 13:37:00 Name: DANIA JANE [facility] : 1970 Age/S: 48 / F [address] [place] [address] Unit #: [id number] Loc: [id number] Phys: Tami Miguel MD Acct: [id number] Dis Date: Status: ADM IN PHONE #: [phone] Exam Date: 05/28/2019 1311 FAX #: [phone] Reason: Stroke T hrombolytic Alteplase (tPA), left hemip EXAMS: CPTCODE: [id number] CT HEAD/BRAIN W/O CONT 72955 CT head without contrast 05/28/2019 HISTORY: Left hemiparesis. Stroke. PROCEDURE: Multiple axial images from the skull base to the skull vertex were obtained without contrast. Coronal and sagittal reconstructed images were performed CT imaging performed at this location utilizes radiation dose optimization techniques which include one or more of the following: -Automated exposure control -Adjustment of the mA and/or kV according to patient size -Use of iterative reconstruction technique CT Radiation Dose DLP 938.9 mGy-cm Comparison is made to 05/27/2019 FINDINGS: Right basal ganglia lacunar infarct is unchanged. No acute hemorrhage, midline shift, extra-axial fluid collection, or hydrocephalus is present. No new infarct is noted. No sulcal effacement is present. The visualized mastoid air cells are clear. There is no air-fluid level in the paranasal sinuses. Distal internal carotid arterial calcifications are present. IMPRESSION: 1. No acute infarct. No acute hemorrhage. 2. Old right basal ganglia lacunar infarct. SL: [id number] at 1337 Reported and signed by: Manny Zuñiga M.D. CC: Arnaldo Etienne DO; Tami Anderson MD; Tierra Man MD Technologist:Tami Rodriguez RT(R)(CT) CTDI: DLP: Trnscb Date/Time: 05/28/2019 (8627) t.[id number].[email or web address] Orig Print D/T: S: 05/28/2019 (8862) PAGE 1 Signed [id number] 12:09:00 Test Item Value Reference Range Interpretation Comments GLUBED (test code = 204 MG/DL 70-110 H Performe d by certified GLUBED) 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 [facility] [id number] 10:03:00 Test Item Value Reference Range Interpretation Comments HGBA1C% (test code = HGBA1C%) 15.4 %A1C 4.8-6.0 H [id number] 09:23:00 Test Item Value Reference Range Interpretation Comments GLUBED (test code = 313 MG/DL 70-110 H Performe d by certified GLUBED) 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 [facility] [id number] 06:30:00 Test Item Value Reference Range Interpretation Comments PHOSPHOROUS (test code = PHOS) 3.3 MG/DL 2.5-4.9 N [id number] 06:30:00 Test Item Value Reference Range Interpretation Comments MAGNESIUM (test code = MAG) 1.70 mg/dL 1.8-2.4 L TSH REFLEX TO [id number] 06:30:00 Test Item Value Reference Range Interpretation Comments TSH REFLEX TO FT4 (test code = 1.25 IU/mL 0.42-5.47 N TSHREFLEX) CALCIUM [id number] 06:30:00 Test Item Value Reference Range Interpretation Comments CALCIUM IONIZED (test code = FREDO) 1.11 MMOL/L 1.12-1.32 L COMPREHENSIVE METABOLIC [id number] 06:11:00 Test Item Value Reference Range Interpretation Comments SODIUM (test code = NA) 138 mEq/L 134-147 N POTASSIUM (test code = 3.5 mEq/L 3.4-5.0 N K) CHLORIDE (test code = 105 mEq/L 100-108 N CL) CARBON DIOXIDE (test 26 mEq/L 21-33 N code = CO2) ANION GAP (test code = 11 0-20 N GAP) GLUCOSE (test code = 294 mg/dL 70-110 H GLU) BLOOD UREA NITROGEN 10 mg/dL 7-18 N (test code = BUN) GLOMERULAR FILTRATION 107.2 90-95 H Units of measure = RATE (test code = GFR) ml/mi n/1.73 m2 CREATININE (test code = 0.7 mg/dL 0.6-1.3 CREAT) TOTAL PROTEIN (test 7.2 g/dL 6.4-8.2 N code = PROT) ALBUMIN (test code = 3.10 g/dL 3.4-5.0 L ALB) CALCIUM (test code = 8.3 mg/dL 8.0-10.5 N CA) BILIRUBIN TOTAL (test 0.4 MG/DL <1.5 N code = BILT) SGOT/AST (test code = 14 IUnit/L 15-37 L AST) SGPT/ALT (test code = 21 IUnit/L 15-65 N ALT) ALKALINE PHOSPHATASE 86 IUnit/L 20-125 N TOTAL (test code = ALKP) COMMENTS: Fasting in AMLIPID PROFILE (CORONARY RISK)2019-05-28 06:11:00 Test Item Value Reference Range Interpretation Comments TRIGLYCERIDES (test 465 mg/dL 40-150 H code = TRIG) CHOLESTEROL (test 291 mg/dL <200 H code = CHOL) CHOLESTEROL/HDL 9.70 RATIO 3.27-4.44 H RISK ASSOCIA IRMA WITH RATIO (test code = CHOL/HDL RATIOS: RISK CHOLHDL) MALE FEMALE1/2 AVERA GE 3.43 3.27AVERAGE 4.97 4.4 42X AVERAGE 9.55 7.053X AVER AGE 23.39 1 1.04 NOTE THAT THE R EFERENCE VALUE IS RELATE DTO RISK LEVELS RECOM MENDED BY THE NATL.HEA RT, LUNG, AND BLOOD INST. HDL CHOLESTEROL 30.0 mg/dL 39-96 L (test code = HDL) LIPOPROTEIN LDL 164 mg/dL 0-100 H <100 OPT [id number] (test code = LDL) NEAR OPTI MAL/ABOVE [id number] [id number] 89 HIGH>JT=611 VE RY HIGH*Guidelines provided by the [facility] terol EducationProa Adult Treatment Panel III COMMENTS: Fasting in [id number] 06:06:00 Test Item Value Reference Range Interpretation Comments PHOSPHOROUS (test code = PHOS) MG/DL 2.5-4.9 [id number] 06:06:00 Test Item Value Reference Range Interpretation Comments MAGNESIUM (test code = MAG) mg/dL 1.8-2.4 TSH REFLEX TO [id number] 06:06:00 Test Item Value Reference Range Interpretation Comments TSH REFLEX TO FT4 (test code = IU/mL 0.42-5.47 TSHREFLEX) CALCIUM [id number] 06:06:00 Test Item Value Reference Range Interpretation Comments CALCIUM IONIZED (test code = FREDO) 1.11 MMOL/L 1.12-1.32 L CBC W/AUTO [id number] 06:01:00 Test Item Value Reference Range Interpretation Comments WHITE BLOOD CELL (test code = 7.41 x10 3/uL 4.5-11.0 N WBC) RED BLOOD CELL (test code = 3.80 x10 6/uL 3.54-5.02 N RBC) HEMOGLOBIN (test code = HGB) 12.1 g/dL 11.0-15.0 N HEMATOCRIT (test code = HCT) 35.3 % 33.0-45.0 N MEAN CELL VOLUME (test code = 92.9 fL 81.0-99.0 N MCV) MEAN CELL HGB (test code = MCH) 31.8 pg 27.0-33.0 N MEAN CELL HGB CONCETRATION 34.3 g/dL 33.0-37.0 N (test code = MCHC) RED CELL DISTRIBUTION WIDTH CV 14.1 % 11.5-14.5 N (test code = RDW) RED CELL DISTRIBUTION WIDTH SD 45.7 fL 37.0-54.0 N (test code = RDW-SD) PLATELET COUNT (test code = 219 x10 3/uL 150-400 N PLT) MEAN PLATELET VOLUME (test code 11.9 fL 7.0-9.0 H = MPV) NEUTROPHIL % (test code = NT%) 60.1 % 56.0-77.0 N IMMATURE GRANULOCYTE % (test 0.3 % 0.0-2.0 N code = IG%) LYMPHOCYTE % (test code = LY%) 28.3 % 14.0-32.0 N MONOCYTE % (test code = MO%) 7.3 % 4.8-9.0 N EOSINOPHIL % (test code = EO%) 3.1 % 0.3-3.7 N BASOPHIL % (test code = BA%) 0.9 % 0.0-2.0 N NUCLEATED RBC % (test code = 0.0 % 0-0 N NRBC%) NEUTROPHIL # (test code = NT#) 4.45 x10 3/uL 2.0-7.6 N IMMATURE GRANULOCYTE # (test 0.02 x10 3/uL 0.00-0.03 N code = IG#) LYMPHOCYTE # (test code = LY#) 2.10 x10 3/uL 1.0-3.8 N MONOCYTE # (test code = MO#) 0.54 x10 3/uL 0.1-0.8 N EOSINOPHIL # (test code = EO#) 0.23 x10 3/uL 0.0-0.2 H BASOPHIL # (test code = BA#) 0.07 x10 3/uL 0.0-0.2 N NUCLEATED RBC # (test code = 0.00 x10 3/uL 0.0-0.1 N NRBC#) MANUAL DIFF REQUIRED (test code NO = MDIFF) [id number] 21:04:00 Test Item Value Reference Range Interpretation Comments GLUBED (test code = 274 MG/DL 70-110 H Performe d by certified GLUBED) 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 [facility] [id number] 16:48:00 Test Item Value Reference Range Interpretation Comments GLUBED (test code = 308 MG/DL 70-110 H Performe d by certified GLUBED) 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 [facility] [id number] 13:26:00 Test Item Value Reference Range Interpretation Comments GLUBED (test code = 334 MG/DL 70-110 H Performe d by certified GLUBED) 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 [facility] - CT CEREBRAL PERF [id number] 13:07:00 Name: DANIA JANE [facility] : 1970 Age/S: 48 / F [address] [place] [address] Unit #: [id number] Loc: [place] Phys: Arnaldo Etienne DO Acct: [id number] Dis Date: Status: PRE ER PHONE #: [phone] Exam Date: 05/27/2019 1217 FAX #: [phone] Reason: left sided weakness EXAMS: CPTCODE: [id number] CT CEREBRAL PERF ANAL 39182 Clinical Indication: Left-sided weakness Comparison: Brain/neck CTA 04/09/2019 TECHNIQUE: Sequential trans-axial images are obtained from the aortic arch to the vertex with a multi-detector helical CT after intravenous contrast administration. Coronal and sagittal MIP reconstructions are obtained. Perfusion parametric maps were also generated. Region of interest were placed for arterial input function and venous input function were selected by the software/technologist. IV Contrast: [address] Radiation Dose [id number] mGy-cm. CT imaging performed at this location utilizes radiation dose optimization techniques which include one or more of the following: -Automated exposure control -Adjustment of the mA and/or kV according to patient size -Use of iterative reconstruction technique FINDINGS: CT PERFUSION: Mean transit time: No evidence of elevated mean transit time. There appears to be symmetric elevated Tmax in the posterior circulation, not well demonstrated on the mean transit time. This may represent artifacts. Cerebral blood flow: No evidence of decreased relative cerebral blood flow. Cerebral blood volume: No evidence of decreased relative cerebral blood volume. Please note, the arterial input function is lower than expected, which mayconfound findings. INTRACRANIAL CTA: ANTERIOR CIRCULATION: Right internal carotid artery: No significant stenosis, occlusion or PAGE 1 Signed Report (CONTINUED) Name: DANIA JANE [facility] : 1970 Age/S: 48 / F [address] [place] [address] Unit #: [id number] Loc: [place] [address] Phys: Arnaldo Etienne DO Acct: [id number] Dis Date: Status: PRE ER PHONE #: [phone] Exam Date: 05/27/20191216 FAX #: [phone] Reason: left sided weakness EXAMS: CPT CODE: [id number] CT CEREBRAL PERF ANAL 28644 <Continued> aneurysm. Mild peripheral atherosclerosis. Right anterior cerebral artery: No significant stenosis, occlusion or aneurysm. Right middle cerebral artery: No occlusion. Narrowed superior division M2 segment (series [id number], image 34 and axial series 3, image 171, also seen on the rotational MIPS). Left internal carotid artery: No significant stenosis, occlusion or aneurysm. Mild peripheral atherosclerosis. Left anterior cerebral artery: No significant stenosis, occlusion or aneu rysm. Left middle cerebral artery: No significant stenosis, occlusion or aneurysm. Anterior communicating artery: Unremarkable. Posterior communicating artery: Not visualized. POSTERIOR CIRCULATION: Right vertebral artery: Narrowed intracranial segment. No occlusion or aneurysm. Right posterior inferior cerebellar artery: No significant stenosis, occlusion or aneurysm. . Left vertebral artery: No significant stenosis, occlusion or aneurysm. Left posterior inferior cerebellar artery: No significant stenosis, occlusion or aneurysm. Basilar artery: No focal stenosis, occlusion or aneurysm. Right superior cerebellar artery: No significant stenosis, occlusion or aneurysm. Right posterior cerebral artery: No significant stenosis, occlusion oraneurysm. Left superior cerebellar artery: No significant stenosis, occlusion or aneurysm. Left posterior cerebral artery: No significant stenosis, occlusion or aneurysm. No aneurysm or vascular reformation are identified within the limits of thistechnique. PAGE 2 Signed Report (CONTINUED) Name: SEBASTIANDANIA [facility] : 1970 Age/S: 48/ F [address] [place] [address] Blvd Unit #: [id number] Loc: [place] [address] Phys: Arnaldo Etienne DO Acct: [id number] Dis Date: Status: PRE ER PHONE #: [phone] Exam Date: 05/27/20191216 FAX #: [phone] Reason: left sided weakness EXAMS: CPT CODE: [id number] CT CEREBRAL PERF ANAL 49419 <Continued> EXTRACRANIAL CTA: GREAT VESSELS: Aortic arch: Bovine arch. RIGHT-SIDED EXTRACRANIAL SYSTEM: Right common carotid artery: No h emodynamically significant stenosis. Right proximal internal carotid artery: No hemodynamically significant stenosis. Right mid and distal internal carotid artery: No hemodynamically significant stenosis. Right vertebral artery: No occlusion or stenosis. LEFT-SIDED EXTRACRANIAL SYSTEM: Left common carotid artery: No hemodynamically significantstenosis. Left proximal internal carotid artery: No hemodynamically significant stenosis. Left mid and distal internal carotid artery: No hemodynamically significant stenosis. Left vertebral artery: Atherosclerosis at the origin results in mild stenosis. No occlusion or dissection. Other findings: No dissection. Heterogeneous nodular thyroid, which can be further assessed with thyroid ultrasound. Comment: Any carotid artery stenosis measurements provided in the above report utilized a normal caliber distal carotid artery as the denominator according to NASCET criteria/recommendations. IMPRESSION: Perfusion CT: Negative CT perfusion study, as above. Brain CTA: No acute occlusion or signs of aneurysm. 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 PAGE 3 Signed Report (CONTINUED) Name: DANIA JANE [facility] : 1970 Age/S: 48 / F [address] [place] [address] Unit #: [id number] Loc: [place] [address] Phys: Arnaldo Etienne DO Acct: [id number] Dis Date: Status: PRE ER PHONE #: [phone] Exam Date: 05/27/2019 1217 FAX #: [phone] Reason: left sided weakness EXAMS: CPT CODE: [id number] CT CEREBRAL PERF ANAL 53380 <Continued> Neck CTA: No hemodynamically significant stenosis of the internal carotid arteries and vertebral arteries. Please note small basal ganglia lacunar infarct, posterior fossa and brainstem infarcts cannot be excluded from CT perfusion examination. MRI examination with diffusion- weighted imaging provides higher sensitivity. Dr. Vazquez discussed the results are phone with Dr. Brown at 12:58 PM 05/27/2019 SL: [id number] at 1305 Reported and signed by: Emeka Vazquez M.D. CC: Arnaldo Etienne DO; Tierra Man MD Technologist:Andry Omalley, RT(R) CTDI: DLP: Trnscb Date/Time: 05/27/2019 (1307) [email or web address] Orig Print D/T: S: 05/27/2019 (8450) PAGE 4 Signed Report- CT ANGIO [id number] 13:07:00 Name: DANIA JANE : 1970 Age/S: 48 / F [address] [place] [address] Unit #: [id number] Loc: [place] Phys: Arnaldo Etienne DO Acct: [id number] Dis Date: Status: PRE ER PHONE #: [phone] Exam Date: 05/27/20191216 FAX #: [phone] Reason: LUE weakness EXAMS: CPTCODE: [id number] CT ANGIO NECK [address]248 Clinical Indication: Left-sided weakness Comparison: Brain/neck CTA 04/09/2019 TECHNIQUE: Sequential trans-axial images are obtained from the aortic arch to the vertex with a multi-detector helical CT after intravenous contrast administration. Coronal and sagittal MIP reconstructions are obtained. Perfusion parametric maps were also generated. Region of interest were placed for arterial input function and venous input function were selected by the software/technologist. IV Contrast: [address] Radiation Dose QJE6543 mGy-cm. CT imaging performed at this location utilizes radiation dose optimization techniques which include one or more of the following: -Automated exposure control -Adjustment of the mA and/or kV according to patient size -Use of iterative reconstruction technique FINDINGS: CT PERFUSION: Mean transit time: No evidence of elevated mean transit time. There appears to be symmetric elevated Tmax in the posterior circulation, not well demonstrated on the mean transit time. This may represent artifacts. Cerebral blood flow: No evidence of decreased relative cerebral blood flow. Cerebral blood volume: No evidence of decreased relative cerebral blood volume. Please note, the arterial input function is lower than expected, which mayconfound findings. INTRACRANIAL CTA: ANTERIOR CIRCULATION: Right internal carotid artery: No significant stenosis, occlusion or PAGE 1 Signed Report (CONTINUED) Name: DANIA JANE : 1970 Age/S: 48 / F [address] [place] [address] Unit #: [id number] Loc: [place] [address] Phys: Arnaldo Etienne DO Acct: [id number] Dis Date: Status: PRE ER PHONE #: [phone] Exam Date: 05/27/20191216 FAX #: [phone] Reason: LUE weakness EXAMS: CPT CODE: [id number] CT ANGIO NECK [address]83 <Continued> aneurysm. Mild peripheral atherosclerosis. Right anterior cerebral artery: No significant stenosis, occlusion or aneurysm. Right middle cerebral artery: No occlusion. Narrowed superior division M2 segment (series [id number], image 34 and axial series 3, image 171, also seen on the rotational MIPS). Left internal carotid artery: No significant stenosis, occlusion or aneurysm. Mild peripheral atherosclerosis. Left anterior cerebral artery: No significant stenosis, occlusion or aneu rysm. Left middle cerebral artery: No significant stenosis, occlusion or aneurysm. Anterior communicating artery: Unremarkable. Posterior communicating artery: Not visualized. POSTERIOR CIRCULATION: Right vertebral artery: Narrowed intracranial segment. No occlusion or aneurysm. Right posterior inferior cerebellar artery: No significant stenosis, occlusion or aneurysm. . Left vertebral artery: No significant stenosis, occlusion or aneurysm. Left posterior inferior cerebellar artery: No significant stenosis, occlusion or aneurysm. Basilar artery: No focal stenosis, occlusion or aneurysm. Right superior cerebellar artery: No significant stenosis, occlusion or aneurysm. Right posterior cerebral artery: No significant stenosis, occlusion oraneurysm. Left superior cerebellar artery: No significant stenosis, occlusion or aneurysm. Left posterior cerebral artery: No significant stenosis, occlusion or aneurysm. No aneurysm or vascular reformation are identified within the limits of thistechnique. PAGE 2 Signed Report (CONTINUED) Name: DANIA JANE [facility] : 1970 Age/S: 48/ F [address] [place], [place] [address] Unit #: [id number] Loc: [place] [address] Phys: Arnaldo Etienne DO Acct: [id number] Dis Date: Status: PRE ER PHONE #: [phone] Exam Date: 05/27/2019 1217 FAX #: [phone] Reason: LUE weakness EXAMS: CPT CODE: [id number] CT ANGIO NECK [address] <Continued> EXTRACRANIAL CTA: GREAT VESSELS: Aortic arch: Bovine arch. RIGHT-SIDED EXTRACRANIAL SYSTEM: Right common carotid artery: No hemodynamically significant stenosis. Right proximal internal carotid artery: No hemodynamically significant stenosis. Right mid and distal internal carotid artery: No hemodynamically significant stenosis. Right vertebral artery: No occlusion or stenosis. LEFT-SIDED EXTRACRANIAL SYSTEM: Left common carotid artery: No hemodynamically significantstenosis. Left proximal internal carotid artery: No hemodynamically significant stenosis. Left mid and distal internal carotid artery: No hemodynamically significant stenosis. Left vertebral artery: Atherosclerosis at the origin results in mild stenosis. No occlusion or dissection. Other findings: No dissection. Heterogeneous nodular thyroid, which can be further assessed with thyroid ultrasound. Comment: Any carotid artery stenosis measurements provided in the above report utilized a normal caliber distal carotid artery as the denominator according to NASCET criteria/recommendations. IMPRESSION: Perfusion CT: Negative CT perfusion study, as above. Brain CTA: No acute occlusion or signs of aneurysm. 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 PAGE 3 Signed Report (CONTINUED) Name: DANIA JANE [facility] : 1970 Age/S: 48 / F [address] [place], [place] [address] Unit #: [id number] Loc: [place] [address] Phys: Arnaldo Etienne DO Acct: [id number] Dis Date: Status: PRE ER PHONE #: [phone] Exam Date: 05/27/2019 1217 FAX #: [phone] Reason: LUE weakness EXAMS: CPT CODE: [id number] CT ANGIO NECK [address] <Continued> Neck CTA: No hemodynamically significant stenosis of the internal carotid arteries and vertebral arteries. Please note small basal ganglia lacunar infarct, posterior fossa and brainstem infarcts cannot be excluded from CT perfusion examination. MRI examination with diffusion-weighted imaging provides higher sensitivity. Dr. Vazquez discussed the results are phone with Dr. Brown at 12:58 PM 05/27/2019 SL: [id number] at 1307 Reported and signed by: Emeka Vazquez M.D. CC: Arnaldo Etienne DO; Tierra Man MD Technol ogist:Andry Omalley, RT(R) CTDI: DLP: Trnscb Date/Time: 05/27/2019 (1307) [email or web address] Orig Print D/T: S: 05/27/2019 (9020) PAGE 4 Signed Report- XR CHEST 1 [id number] 12:36:00 FAX: Arnaldo Coello DO [phone] Seth: St: PRE FAX: Tierra Shepard MD [phone] Name: DANIA JANE [facility] : 1970 Age/S: 48/F [address] [place] [address] Blvd Unit #: [id number] Loc: [place] [address] Phys: Arnaldo Etienne DO Acct: [id number] Dis Date: Status: PRE ER PHONE #: [phone] Exam Date: 05/27/2019 1206 FAX #: [phone] Reason: stroke EXAMS: CPT CODE: [id number] XR CHEST 1 V 68363 PROCEDURE: CH EST SINGLE VIEW INDICATION: stroke COMPARISON: 02/07/2019 FINDINGS: AP portable chest obtained semiupright in expiration. Bronchovascular markings accentuated by hypoventilatory change. Bandlike opacities in the midlung zones compatible with subsegmental atelectasis. No consolidation. No pleural abnormality. The cardiomediastinal silhouette is grossly normal allowing for projection and low lung volumes. Implanted cardiac monitoring device noted overlying the left upper quadrant. No acute skeletal abnormality. IMPRESSION: Limited, expiratory chest. Subsegmental atelectasis. No definitive evidencefor edema. Short interval radiographic follow-up is suggested. SL: [id number] at 1236 Reported and signed by: Petey Hassan M.D. CC: Arnaldo Etienne DO; Tierra Man MD Technologist: RT Genaro(R) Trnscrd Date/Time/By: 05/27/2019 (6356) : By: Brian Orig Print D/T: S: 05/27/2019 (9636) PAGE 1 Signed R [id number] 12:29:00 Test Item Value Reference Range Interpretation Comments GLUBED (test code = 368 MG/DL 70-110 H Performe d by certified GLUBED) 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 [facility] BASIC METABOLIC [id number] 12:12:00 Test Item Value Reference Range Interpretation Comments SODIUM (test code = NA) 134 mEq/L 134-147 N POTASSIUM (test code = 3.7 mEq/L 3.4-5.0 N K) CHLORIDE (test code = 100 mEq/L 100-108 N CL) CARBON DIOXIDE (test 26 mEq/L 21-33 N code = CO2) ANION GAP (test code = 12 0-20 N GAP) GLUCOSE (test code = 455 mg/dL 70-110 HH GLU) BLOOD UREA NITROGEN 12 mg/dL 7-18 N (test code = BUN) GLOMERULAR FILTRATION 71.0 90-95 L Units of measure = RATE (test code = GFR) ml/mi n/1.73 m2 CREATININE (test code = 1.0 mg/dL 0.6-1.3 N CREAT) CALCIUM (test code = 9.2 mg/dL 8.0-10.5 N CA) [id number] 12:12:00 Test Item Value Reference Range Interpretation Comments TROPONIN-I < 0.015 ng/mL 0.000-0.045 N Negative: <= (test code = 0.045 Positive: TROPI) >= 0.046 Correl ation with serial results, other cardiac markers andclinical findings is nec essary to determine the clinicalsignifi cance of this result. Results using different metho dologies should not be c omparedto one another as carlyn titative results may hong y by method. PROTHROMBIN [id number] 11:58:00 Test Item Value Reference Range Interpretation Comments PROTHROMBIN TIME 11.3 SECONDS 9.3-12.9 N PATIENT (test code = PTP) INTERNATIONAL NORMAL 1.0 0.8-1.2 N TARGET RATIO (test code = INR BY IN DICATION INR) Indication INR1. Prophyl axis of venous thrombos is 2.0 - 3. 0 (orthopedic doris ana), Prophylaxis of venous thrombos is (other than hig h-risk surgery), Kya tment of Deep Vein Thrombosis/Pulm onary Embolism, Preve ntion of systemic emb olism - Tissue heart va lves, Acute Myocardia l Infarction (to prevent systemic embo lism), Valvular heart disease, Atri al Fibrillation, Bileaflet mecha nical valve in aortic position.2. Mec hanical prosthetic valv es (high risk), 2.5 - 3.5 Presence of Lupus Anticoagu lant or Antiphospholi pid Antibodies, Pre vention of systemic e mbolism - Acute Myocard ial Infarction (t o prevent recurre nt infarct). THROMBOPLASTIN TIME [id number] 11:58:00 Test Item Value Reference Range Interpretation Comments THROMBOPLASTIN TIME 30.7 Seconds 25.0-39.5 N Ther apeutic PARTIAL (test code = Range: 50.4 - 88.3 PTT) Seconds Effective 08/07/2018 PROTHROMBIN [id number] 11:56:00 Test Item Value Reference Range Interpretation Comments PROTHROMBIN TIME 11.3 SECONDS 9.3-12.9 N PATIENT (test code = PTP) INTERNATIONAL NORMAL 1.0 0.8-1.2 N TARGET RATIO (test code = INR BY IN DICATION INR) Indication INR1. Prophyl axis of venous thrombos is 2.0 - 3. 0 (orthopedic doris ana), Prophylaxis of venous thrombos is (other than hig h-risk surgery), Kya tment of Deep Vein Thrombosis/Pulm onary Embolism, Preve ntion of systemic emb olism - Tissue heart va lves, Acute Myocardia l Infarction (to prevent systemic embo lism), Valvular heart disease, Atri al Fibrillation, Bileaflet mecha nical valve in aortic position.2. Mec hanical prosthetic valv es (high risk), 2.5 - 3.5 Presence of Lupus Anticoagu lant or Antiphospholi pid Antibodies, Pre vention of systemic e mbolism - Acute Myocard ial Infarction (t o prevent recurre nt infarct). THROMBOPLASTIN TIME [id number] 11:56:00 Test Item Value Reference Range Interpretation Comments THROMBOPLASTIN TIME PARTIAL (test Seconds 25.0-39.5 code = PTT) CBC W/O [id number] 11:53:00 Test Item Value Reference Range Interpretation Comments WHITE BLOOD CELL (test code = 6.71 x10 3/uL 4.5-11.0 N WBC) RED BLOOD CELL (test code = 4.37 x10 6/uL 3.54-5.02 N RBC) HEMOGLOBIN (test code = HGB) 13.0 g/dL 11.0-15.0 N HEMATOCRIT (test code = HCT) 39.7 % 33.0-45.0 N MEAN CELL VOLUME (test code = 90.8 fL 81.0-99.0 N MCV) MEAN CELL HGB (test code = MCH) 29.7 pg 27.0-33.0 N MEAN CELL HGB CONCETRATION 32.7 g/dL 33.0-37.0 L (test code = MCHC) RED CELL DISTRIBUTION WIDTH CV 13.1 % 11.5-14.5 N (test code = RDW) RED CELL DISTRIBUTION WIDTH SD 43.4 fL 37.0-54.0 N (test code = RDW-SD) PLATELET COUNT (test code = 281 x10 3/uL 150-400 N PLT) MEAN PLATELET VOLUME (test code 11.9 fL 7.0-9.0 H = MPV) - CT HEAD/BRAIN W/O [id number] 11:38:00 Name: DANIA JANE [facility] : 1970 Age/S: 48 / F [address] [place] [address] Blvd Unit #: [id number] Loc: [place], [id number] Phys: Arnaldo Etienne Acct: [id number] Dis Date: Status: PRE ER PHONE #: [phone] Exam Date: 05/27/2019 1128 FAX #: [phone] Reason: LEFT SIDED WEAKNESS EXAMS: CPTCODE: [id number] CT HEAD/BRAIN W/O CONT 91023 PROCEDURE: CT HEAD WITHOUT CONTRAST INDICATION: LEFT SIDED WEAKNESS COMPARISON: 04/09/2019 from [facility] TECHNIQUE: Noncontrast helical imaging performed skull base to the vertex. Multiplanar reformations are obtained. CT imaging performed at this location utilizes radiation dose optimization techniques which include one or more of the following: - Automated exposure control -Adjustment of the mA and/or kV according to patient size -Use of iterative reconstruction technique CT Radiation Dose DLP 419.70mGy-cm LIMITATIONS: None. FINDINGS: BRAIN PARENCHYMA: The cerebral cortical architecture is normal. The harmon-white differentiation is maintained. Small lacunar infarcts in the basal ganglia with chronic lacunar infarct right caudate and lentiform nuc lei and anterior limb internal capsule. There is no intra-axial or extra- axial hemorrhage, mass lesion or mass effect. The midline structures and posterior fossa contents are unremarkable. Calcified plaque cavernous carotid arteries. VENTRICLES: The ventricular systemis normal. The basilar cisterns are normal. ORBITS, MASTOIDS AND PARANASAL SINUSES: The visualized orbits and paranasal sinuses are unremarkable. The mastoid air cells are clear. SKULL: The calvarium is intact. IMPRESSION: 1. No hemorrhage, mass lesion or evidence of acute infarct. 2. Chronic microvascular ischemic changes. If there is continued clinical concern, further imaging options include MRI. A verbal report was called to Arnaldo Etienne DO on 05/27/2019 11:34 AM. FOR INTERNAL CODING PURPOSES ONLY RESULT CODE: CVR PAGE 1 Signed Report (CONTINUED) Name: DANIA JANE [facility] : 1970 Age/S: 48 / F [address] [facility] Unit #: [id number] Loc: [place] [address] Phys: Arnaldo Etienne DO Acct: [id number] Dis Date: Status: PRE ER PHONE #: [phone] Exam Date: 06/2019 1128 FAX #: [phone] Reason: LEFT SIDED WEAKNESS EXAMS: CPT CODE: [id number] CT HEAD/BRAIN W/O CONT 56823 <Continued> SL: [id number] at 1138 Reported and signed by: Petey Hassan M.D. CC: Arnaldo Etienne DO; Tierra Man MD Technologist:Andry Omalley, (R) CTDI: DLP: Trnscb Date/Time: 05/27/2019 (1138) [email or web address] Orig Print D/T: S: 05/27/2019 (4786) PAGE 2 Signed ReportGLUBED 2019-05-27 11:35:00 Test Item Value Reference Range Interpretation Comments GLUBED (test code = 418 MG/DL 70-110 H Performe d by certified GLUBED) 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 [facility] GLUCOSE BEDSIDE [id number] 11:52:00 Test Item Value Reference Range Interpretation Comments GLUCOSE BEDSIDE TESTING (test code 309 mg/dL 70-110 H = GLUBED) GLUCOSE BEDSIDE [id number] 07:43:00 Test Item Value Reference Range Interpretation Comments GLUCOSE BEDSIDE TESTING (test code 305 mg/dL 70-110 H = GLUBED) BASIC METABOLIC [id number] 06:14:00 Test Item Value Reference Range Interpretation Comments SODIUM (test code = NA) 139 mmol/L 134-147 N POTASSIUM (test code = 3.8 mmol/L 3.4-5.0 N K) CHLORIDE (test code = 104 mmol/L 100-108 N CL) CARBON DIOXIDE (test 28 mmol/L 21-32 N code = CO2) ANION GAP (test code = 7.0 GAP calc 4.0-15.0 N GAP) GLUCOSE (test code = 280 MG/DL 70-110 H GLU) BLOOD UREA NITROGEN 13 MG/DL 7-18 N (test code = BUN) GLOMERULAR FILTRATION >=60 max estimate >60 RATE (test code = GFR) estGFR CREATININE (test code = 0.8 MG/DL 0.6-1.0 N CREAT) CALCIUM (test code = CA) 8.5 MG/DL 8.5-10.1 N CBC W/AUTO [id number] 05:55:00 Test Item Value Reference Range Interpretation Comments WHITE BLOOD CELL (test code = 7.2 K/mm3 3.5-11.0 N WBC) RED BLOOD CELL (test code = RBC) 3.63 M/mm3 4.70-6.10 L HEMOGLOBIN (test code = HGB) 10.9 G/DL 10.4-14.9 N HEMATOCRIT (test code = HCT) 33.3 % 31.5-44.1 N MEAN CELL VOLUME (test code = 91.7 Fl 84.5-98.6 N MCV) MEAN CELL HGB (test code = MCH) 30.0 pg 27.0-34.2 N MEAN CELL HGB CONCETRATION (test 32.7 G/DL 31.5-34.0 N code = MCHC) RED CELL DISTRIBUTION WIDTH (test 14.0 SD 11.5-14.5 N code = RDW) PLATELET COUNT (test code = PLT) 302.0 K/mm3 150-450 N MEAN PLATELET VOLUME (test code = 11.50 fL 7.0-10.5 H MPV) NEUTROPHIL % (test code = NT%) 65.8 % 40-76 N LYMPHOCYTE % (test code = LY%) 20.6 % 20.5-51.1 N MONOCYTE % (test code = MO%) 10.4 % 1.7-9.3 H EOSINOPHIL % (test code = EO%) 2.4 % 0.0-6.0 N BASOPHIL % (test code = BA%) 0.8 % 0.0-2.0 N NEUTROPHIL # (test code = NT#) 4.72 K/mm3 1.8-7.6 N LYMPHOCYTE # (test code = LY#) 1.5 K/mm3 0.6-3.2 N MONOCYTE # (test code = MO#) 0.8 K/mm3 0.3-1.1 N EOSINOPHIL # (test code = EO#) 0.2 K/mm3 0.0-0.4 N BASOPHIL # (test code = BA#) 0.1 K/mm3 0.0-0.1 N MANUAL DIFF REQUIRED (test code = NO DIFF/SCN CRITERIA MDIFF) GLUCOSE BEDSIDE [id number] 21:09:00 Test Item Value Reference Range Interpretation Comments GLUCOSE BEDSIDE TESTING (test code 405 mg/dL 70-110 H = GLUBED) GLYCOSYLATED HEMOGLOBIN [id number] 06:34:00 Test Item Value Reference Range Interpretation Comments GLYCOSYLATED HEMOGLOBIN (HA1C) 13.4 % A1C 4.2-6.3 H (test code = GLYHGB) ESTIMATED AVERAGE GLUCOSE (test 338 MG/DLest code = EAG) LIPID PROFILE (CORONARY RISK)2019-04-10 06:14:00 Test Item Value Reference Range Interpretation Comments TRIGLYCERIDES (test code = TRIG) 576 MG/DL 0-150 H CHOLESTEROL (test code = CHOL) 355 MG/DL 133-200 H CHOLESTEROL/HDL RATIO (test code = 9.86 RATIO >0 CHOLHDL) HDL CHOLESTEROL (test code = HDL) 36 MG/DL 40-59 L NON-HDL CHOLESTEROL (test code = 319 mg/dL <130 H NHDL) LIPOPROTEIN LDL (test code = LDL) 225 MG/DL 0-129 H LDL/HDL (test code = LDL/HDL) 6.25 Ratio 1.48-3.22 Avg H UA RFLX MICR CULT IF [id number] 17:16:00 Test Item Value Reference Range Interpretation Comments UA COLOR (test code = YELLOW discript YEL/STRAW COLU) UA APPEARANCE (test code HAZY discript CLEAR A = APPU) UA GLUCOSE DIPSTICK (test 3+ mg/dL NEG code = DGLUU) UA BILIRUBIN DIPSTICK NEGATIVE mg/dL NEG (test code = BILU) UA KETONE DIPSTICK (test NEGATIVE mg/dL NEG code = KETU) UA SPECIFIC GRAVITY (test 1.010 SG 1.005-1.030 code = SGU) UA BLOOD DIPSTICK (test 1+ mg/DL NEG A code = ELVIRA) UA PH DIPSTICK (test code 7.0 pH UNITS 5.0-7.0 = TY) UA PROTEIN DIPSTICK (test NEGATIVE mg/dL NEG code = PROU) UA UROBILINIOGEN DIPSTICK 0.2 mg/dL <2.0 (test code = URO) UA NITRITE DIPSTICK (test POSITIVE SCREEN NEG A code = CARLOTA) UA LEUKOCYTE ESTERASE 2+ Leuk/mcL NEGATIVE A DIPSTICK (test code = LEUU) UA WBC (test code = WBCU) 10-20 #WBC/HPF 0-3 A UA RBC (test code = RBCU) 1-3 #RBC/HPF 0-3 UA BACTERIA (test code = 2+ /HPF NONE-TRACE A BACU) UA SQUAMOUS CELLS (test TRACE /HPF NONE code = SQU) UA CULTURE NEEDED? (test YES,WBC>10 & EPI<25 Culture CHK code = UACULT) Criteria SOURCE OF URINE: CLEAN CATCHIndication for culture: Dysuria/FrequencyUA RFLX MICR CULT IF [id number] 17:13:00 Test Item Value Reference Range Interpretation Comments UA COLOR (test code = COLU) YELLOW discript YEL/STRAW UA APPEARANCE (test code = HAZY discript CLEAR A APPU) UA GLUCOSE DIPSTICK (test 3+ mg/dL NEG code = DGLUU) UA BILIRUBIN DIPSTICK (test NEGATIVE mg/dL NEG code = BILU) UA KETONE DIPSTICK (test code NEGATIVE mg/dL NEG = KETU) UA SPECIFIC GRAVITY (test 1.010 SG 1.005-1.030 code = SGU) UA BLOOD DIPSTICK (test code 1+ mg/DL NEG A = ELVIRA) UA PH DIPSTICK (test code = 7.0 pH UNITS 5.0-7.0 TY) UA PROTEIN DIPSTICK (test NEGATIVE mg/dL NEG code = PROU) UA UROBILINIOGEN DIPSTICK 0.2 mg/dL <2.0 (test code = URO) UA NITRITE DIPSTICK (test POSITIVE SCREEN NEG A code = CARLOTA) UA LEUKOCYTE ESTERASE 2+ Leuk/mcL NEGATIVE A DIPSTICK (test code = LEUU) UA CULTURE NEEDED? (test code Criteria Culture CHK = UACULT) SOURCE OF URINE: CLEAN CATCHIndication for culture: Dysuria/Frequency- CT ANGIO [id number] 15:58:00 Name: DANIA JANE [place] : 1970 Age/S: 48 / F [address] Unit #: [id number] Loc: [place] [address] Phys: Jonh Rodriguez MD Acct: [id number] Dis Date: Status: REG ER PHONE #: [phone] Exam Date: 04/09/2019 1530 FAX #: Reason: STROKE EXAMS: CPT: [id number] CT ANGIO NECK [address] EXAM: - CTANGIO HEAD, - CT ANGIO NECK LOCATION: B2 HISTORY: STROKE TECHNIQUE: CTA head: Axial CT images were obtained from the skull base to the vertex after intravenous contrast utilizing CTA protocol. Coronal and sagittal maximum intensity projection images are provided. CTA neck: Axial CT images were obtained from the aortic arch to the skull base after intravenous contrast utilizing CTA protocol. Coronal and sagittal maximum intensity projection images are provided. This exam was performed according to our departmental dose-optimization program, which includes automated exposure control, adjustment of the mA and/or kV according to patient size and/or use of iterative reconstruction technique. Contrast: 100 mL Isovue-370 GFR: Greater than 60 Cr: 0.5 COMPARISON: None available time of interpretation. FINDINGS: For the purposes of this dictation, hemodynamically significant stenosis is characterized as greater than 50%. CTA head: The petrous, cavernous, and clinoid internal carotid arteries do not demonstrate hemodynamically significant stenoses. The anterior and middle cerebral arteries do not demonstrate hemodynamically significant stenoses. Conf luence of both vertebral arteries into the basilar. Basilar artery and posterior cerebral arteries are do not demonstrate hemodynamically significant stenoses. The dural venous sinuses are patent. CTA neck: PAGE 1 Signed Report (CONTINUED) Name: DANIA JANEDOB: 1970 Age/S: 48 / F [address] Unit #: [id number] Loc: [place] [address] Phys: Jonh Rodriguez MD Acct: [id number] Dis Date: Status: REG ER PHONE #: [phone] Exam Date: 04/09/2019 1532 FAX #: Reason: STROKE EXAMS: CPT: [id number] CT ANGIO NECK [address] <Continued> The origins of the great vessels from the aortic arch do not demonstrate hemodynamically significant stenoses. The bilateral common carotid arteries and bulbs are without hemodynamically significant stenosis. The internal carotid arteries do not demonstrate hemodynamically significant stenosis. The vertebral arteries are codominant. There are hypodensities seen in the thyroid gland, the largest at the inferior aspect of the right lower lobe measuring 1.7 cm. IMPRESSION: 1. No hemodynamically significant stenoses of the cervical internalcarotid or vertebral arteries. 2. No hemodynamically significant stenoses of the anterior, middle, or posterior cerebral arteries. 3. No aneurysm, occlusion, or dissection. 4. Hypodensities in the thyroid measuring up to 1.4 cm. Recommend further evaluation wit h nonemergent thyroid ultrasound. Findings were communicated to Jonh Rodriguez MD by telephone on 04/09/2019 15:58. FOR INTERNAL CODING PURPOSES ONLY RESULT CODE: CVR at 1558 Reported and signed by: Tiffany Welch MD CC: Tierra Man MD; Jonh Rodriguez MD Technologist:Augustus Maharaj RT(R)(CT) CTDI: DLP: Trnscb Date/Time: 04/09/2019 (4138) [email or web address] Orig Print D/T: S: 04/09/2019 (1601) PAGE 2 Signed Report- CT ANGIO [id number] 15:58:00 Name: DANIA JANE : 1970 Age/S: 48 / F [address] Unit #: [id number] Loc: [place] [address] Phys: Jonh Rodriguez MD Acct: [id number] Dis Date: Status: REG ER PHONE #: [phone] Exam Date: 04/09/2019 1522 FAX #: Reason: STROKE EXAMS: CPT: [id number] CT ANGIO HEAD [address]303 EXAM: - CT ANGIO HEAD, - CT ANGIO NECK LOCATION: B2 HISTORY: STROKE TECHNIQUE: CTA head: Axial CT images were obtained from the skull base to the vertex after intravenous contrast utilizing CTA protocol. Coronal and sagittal maximum intensity projection images are provided. CTA neck: Axial CT images were obtained from the aortic arch to the skull base after intravenous contrast utilizing CTA protocol. Coronal and sagittal maximum intensity projection images are provided. This exam was performed according to our departmental dose- optimization program, which includes automated exposure control, adj ustment of the mA and/or kV according to patient size and/or use of iterative reconstruction technique. Contrast: 100 mL Isovue-370 GFR: Greater than 60 Cr: 0.5 COMPARISON: None available time of interpretation. FINDINGS: For the purposes of this dictation, hemodynamically significant stenosis is characterized as greater than 50%. CTA head: The petrous, cavernous, and clinoid internal carotid arteries do not demonstrate hemodynamically significant stenoses. The anterior and middle cerebral arteries do not demonstrate hemodynamically significant stenoses. Conf luence of both vertebral arteries into the basilar. Basilar artery and posterior cerebral arteries are do not demonstrate hemodynamically significant stenoses. The dural venous sinuses are patent. CTA neck: PAGE 1 Signed Report (CONTINUED) Name: DANIA JANEDOB: 1970 Age/S: 48 / F [address] Unit #: [id number] Loc: [place] [address] Phys: Jonh Rodriguez MD Acct: [id number] Dis Date: Status: REG ER PHONE #: [phone] Exam Date: 04/09/2019 1522 FAX #: Reason: STROKE EXAMS: CPT: [id number] CT ANGIO HEAD [address] <Continued> The origins of the great vessels from the aortic arch do not demonstrate hemodynamically significant stenoses. The bilateral common carotid arteries and bulbs are without hemodynamically significant stenosis. The internal carotid arteries do not demonstrate hemodynamically significant stenosis. The vertebral arteries are codominant. There are hypodensities seen in the thyroid gland, the largest at the inferior aspect of the right lower lobe measuring 1.7 cm. IMPRESSION: 1. No hemodynamically significant stenoses of the cervical internalcarotid or vertebral arteries. 2. No hemodynamically significant stenoses of the anterior, middle, or posterior cerebral arteries. 3. No aneurysm, occlusion, or dissection. 4. Hypodensities in the thyroid measuring up to 1.4 cm. Recommend further evaluation wit h nonemergent thyroid ultrasound. Findings were communicated to Jonh Rodriguez MD by telephone on 04/09/2019 15:58. FOR INTERNAL CODING PURPOSES ONLY RESULT CODE: CVR at 1558 Reported and signed by: Tiffany Welch MD CC: Tierra Man MD; Jonh Rodriguez MD Technologist:RT Sabrina(R)(CT) CTDI: DLP: Trnscb Date/Time: 04/09/2019 (8443) [email or web address] Orig Print D/T: S: 04/09/2019 (4494) PAGE 2 Signed ReportPROTHROMBIN [id number] 15:14:00 Test Item Value Reference Range Interpretation Comments PT PATIENT (test code = PTP) 11.4 SECONDS 9.3-12.9 N INTERNATIONAL NORMAL RATIO 1.01 INR Unit 0.8-1.2 N (test code = INR) THROMBOPLASTIN TIME [id number] 15:14:00 Test Item Value Reference Range Interpretation Comments THROMBOPLASTIN TIME PARTIAL 26.0 SECONDS 26-35 N (test code = PTT) TROPONIN I [id number] 14:56:00 Test Item Value Reference Range Interpretation Comments TROPONIN I RAPID 0.00 ng/mL 0.00-0.08 N - The use o f serial (test code = sampling and te sting TROPIRAP) protocol is a recommended pra ctice- An elevated tro ponin level alone is often not sufficient for diagnosis of my ocardial infarction. CHEMISTRY 8 [id number] 14:50:00 Test Item Value Reference Range Interpretation Comments ISTAT-SODIUM (test code = NAP) mmol/L 135-146 ISTAT-POTASSIUM (test code = KP) mmol/L 3.5-4.9 ISTAT-CHLORIDE (test code = CLP) mmol/L 98-109 ISTAT-CARBON DIOXIDE (test code = mmol/L 24-29 N ISTAT-CO2) ISTAT CALCIUM IONIZED (test code = mmol/L 1.12-1.32 ISTAT-FREDO) ISTAT-GLUCOSE (test code = GLUP) mg/dL 70-105 H ISTAT-BUN (test code = BUNP) mg/dL 8-26 L BEDSIDE CREATININE (test code = mg/dL 0.6-1.3 L CREATBED) GLOMERULAR FILTRATION RATE POC (test 168 51-120 H code = GFRBED) CHEMISTRY 8 [id number] 14:50:00 Test Item Value Reference Range Interpretation Comments ISTAT-SODIUM (test code = NAP) 143 mmol/L 135-146 N ISTAT-POTASSIUM (test code = KP) 3.1 mmol/L 3.5-4.9 L ISTAT-CHLORIDE (test code = CLP) 104 mmol/L 98-109 N ISTAT-CARBON DIOXIDE (test code = 28 mmol/L 24-29 N ISTAT-CO2) ISTAT CALCIUM IONIZED (test code 1.06 mmol/L 1.12-1.32 L = ISTAT-FREDO) ISTAT-GLUCOSE (test code = GLUP) 197 mg/dL 70-105 H ISTAT-BUN (test code = BUNP) 5 mg/dL 8-26 L BEDSIDE CREATININE (test code = 0.5 mg/dL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 #: [id number] Loc: EMERY [id number] Phys: Mary Jay MD Acct: [id number] Dis Date: Status: REG ER PHONE #: [phone] Exam Date: 02/07/2019 1238 FAX #: [phone] Reason: left arm and leg weakness numbness EXAMS: CPTCODE: [id number] CT ANGIO HEAD 45428 CTA HEAD WITH CONTRAST CTA NECK WITH CONTRAST Clinical Indication: Left arm and leg weakness numbness Comparison: Noncontrast head CT TECHNIQUE: Sequential trans-axial images are obtained from the skull vertex to the thoracic inlet with a multi-detector helical CT after intravenous contrast administration. Coronal and sagittal MIP reconstructions are obtained. IV Contrast: [address] imaging performed at this location utilizes radiation dose optimization techniques which include one or more of the following: -A utomated exposure control -Adjustment of the mA and/or kV according to patient size -Useof iterative reconstruction technique CT Radiation Dose DLP 1110 mGy-cm ICA stenosis indirectly reference the distal internal carotid diameter as the denominator for stenosis measurement, utilizing consensus panel criteria for PQRS code. (NASCET) FINDINGS: There is suboptimal timing of the contrast bolus. CTA TIMBI-SHA [place]OS[place] OF [place]: Thereare mild calcifications within the cavernous segments of both internal carotid arteries with 30% narrowing on the left and 10% narrowing on the right. Bilateral middle cerebral arteri es are patent. Bilateral anterior cerebral arteries are patent. The distal left vertebral artery is dominant. The basilar artery has normal caliber. The bilateral posterior cerebral arteries have normal caliber. CTA NECK: Aortic arch is patent. The brachiocephalic artery and bilateral subclavian arteries are patent. There is mild soft plaque within the bilateral carotid bulbs without significant narrowing or stenosis. The bilateral common carotid arteries and internal carotid arteries have normal caliber. Bilateral vertebral arteries are patent with normal caliber. There are multiple bilateral thyroid nodules, largest measuring 1.5 cm. The bilateral salivary glands appear normal. No lymphadenopathy is present. No mass lesion or fluid collection is noted. Lung apices are clear. Fusion at C4-5 is noted. Disc space narrowing and PAGE 1 Signed Report (CONTINUED) Name: DANIA JANE [facility] : 1970 Age/S: 48 / F [address] [place] [address] Blvd Unit #: [id number] Loc: [place] [address] Phys: Mary Jay MD Acct: [id number] Dis Date: Status: REG ER PHONE #: [phone] Exam Date: 02/07/2019 1237 FAX #: [phone] Reason: left arm and leg weakness numbness EXAMS: CPT CODE: [id number] CT ANGIO HEAD [address]648 <Continued> osteophytes are present at C5- 6. IMPRESSION: 1. No large vessel occlusion, aneurysm, or significant stenosis within intracranial arteries. 2. No significant narrowing or stenosis within neck arteries. 3. Degenerative changes in cervical spine with previous vertebral body fusion at C4-5. 4. Bilateral thyroid nodules. 5. Bilateral ICA cavernous segment calcified plaque with 30% narrowing on the left and 10% narrowing on the right. Vascular findings were discussed with Dr. Dumont by Dr. Zuñiga at 12:59 pm on 02/07/2019. SL: [id number] at 1310 Reported and signed by: Manny Zuñiga M.D. CC: Mary Jay MD; Tierra Man MD Technologist:Lacey Ontiveros, RT(R)(CT) CTDI: DLP: Trnscb Date/Time: 02/07/2019 (1310) [email or web address] Orig Print D/T: S: 02/07/2019 (6041) PAGE 2 Signed Report- CT ANGIO [id number] 13:10:00 Name: DANIA JANE [facility] : 1970 Age/S: 48 / F [address] [place] [address] Unit #: [id number] Loc: Sa[place]l [id number] Phys: Mary Jay MD Acct: [id number] Dis Date: Status: REG ER PHONE #: [phone] Exam Date: 02/07/2019 1238 FAX #: [phone] Reason: left arm and leg weakness numbness EXAMS: CPTCODE: [id number] CT ANGIO NECK 36753 CTA HEAD WIT H CONTRAST CTA NECK WITH CONTRAST Clinical Indication: Left arm and leg weakness numbness Comparison: Noncontrast head CT TECHNIQUE: Sequential trans-axial images are obtained from the skull vertex to the thoracic inlet with a multi-detector helical CT after intravenous contrast administration. Coronal and sagittal MIP reconstructions are obtained. IV Contrast: [address] imaging performed at this location utilizes radiation dose optimization techniques which include one or more of the following: -A utomated exposure control -Adjustment of the mA and/or kV according to patient size -Useof iterative reconstruction technique CT Radiation Dose DLP 1110 mGy-cm ICA stenosis indirectly reference the distal internal carotid diameter as the denominator for stenosis measurement, utilizing consensus panel criteria for PQRS code. (NASCET) FINDINGS: There is suboptimal timing of the contrast bolus. CTA TIMBI-SHA [place] OF [place]: Thereare mild calcifications within the cavernous segments of both internal carotid arteries with 30% narrowing on the left and 10% narrowing on the right. Bilateral middle cerebral arteri es are patent. Bilateral anterior cerebral arteries are patent. The distal left vertebral artery is dominant. The basilar artery has normal caliber. The bilateral posterior cerebral arteries have normal caliber. CTA NECK: Aortic arch is patent. The brachiocephalic artery and bilateral subclavian arteries are patent. There is mild soft plaque within the bilateral carotid bulbs without significant narrowing or stenosis. The bilateral common carotid arteries and internal carotid arteries have normal caliber. Bilateral vertebral arteries are patent with normal caliber. There are multiple bilateral thyroid nodules, largest measuring 1.5 cm. The bilateral salivary glands appear normal. No lymphadenopathy is present. No mass lesion or fluid collection is noted. Lung apices are clear. Fusion at C4-5 is noted. Disc space narrowing and PAGE 1 Signed Report (CONTINUED) Name: DANIA JANE [facility] [place] : 1970 Age/S: 48 / F [address] [place] [address] Blvd Unit #: [id number] Loc: [place] [address] Phys: Mary Jay MD Acct: [id number] Dis Date: Status: REG ER PHONE #: [phone] Exam Date: 02/07/2019 1238 FAX #: [phone] Reason: left arm and leg weakness numbness EXAMS: CPT CODE: [id number] CT ANGIO NECK 28780 <Continued> osteophytes are present at C5- 6. IMPRESSION: 1. No large vessel occlusion, aneurysm, or significant stenosis within intracranial arteries. 2. No significant narrowing or stenosis within neck arteries. 3. Degenerative changes in cervical spine with previous vertebral body fusion at C4-5. 4. Bilateral thyroid nodules. 5. Bilateral ICA cavernous segment calcified plaque with 30% narrowing on the left and 10% narrowing on the right. Vascular findings were discussed with Dr. Dumont by Dr. Zuñiga at 12:59 pm on 02/07/2019. SL: [id number] at 1310 Reported and signed by: Manny Zuñiga M.D. CC: Mary Jay MD; Tierra Man MD Technologist:RT Leslie(R)(CT) CTDI: DLP: Trnscb Date/Time: 02/07/2019 (1310) [email or web address] Orig Print D/T: S: 02/07/2019 (1343) PAGE 2 Signed ReportBASIC METABOLIC [id number] 13:06:00 Test Item Value Reference Range Interpretation Comments SODIUM (test code = 132 mEq/L 134-147 L NA) POTASSIUM (test code = 5.4 mEq/L 3.4-5.0 H SPECI MEN 2+ K) HEMOLYZED.Resul ts known to be adv ersely affected by hem olysis are: Potass ium Magnesium LDH Phosphorus CHLORIDE (test code = 97 mEq/L 100-108 L CL) CARBON DIOXIDE (test 28 mEq/L 21-33 N code = CO2) ANION GAP (test code = 12 0-20 N GAP) GLUCOSE (test code = 564 mg/dL 70-110 HH GLU) BLOOD UREA NITROGEN 10 mg/dL 7-18 N (test code = BUN) GLOMERULAR FILTRATION 41.3 90-95 L Units of measure = RATE (test code = GFR) ml/mi n/1.73 m2 CREATININE (test code 1.6 mg/dL 0.6-1.3 H = CREAT) CALCIUM (test code = 9.0 mg/dL 8.0-10.5 N CA) [id number] 13:06:00 Test Item Value Reference Range Interpretation Comments TROPONIN-I 0.020 ng/mL 0.000-0.045 N Negative: <= (test code = 0.045 Positive: TROPI) >= 0.046 Correl ation with serial results, other cardiac markers andclin ical findings is necessary to determine the clinicalsignifi cance of this result. Results using different metho dologies should not be c omparedto one another as carlyn titative results may hong y by method. BASIC METABOLIC [id number] 12:55:00 Test Item Value Reference Range Interpretation Comments SODIUM (test code = 132 mEq/L 134-147 L NA) POTASSIUM (test code = 5.4 mEq/L 3.4-5.0 H SPECI MEN 2+ K) HEMOLYZED.Resul ts known to be adv ersely affected by hem olysis are: Potass ium Magnesium LDH Phosphorus CHLORIDE (test code = 97 mEq/L 100-108 L CL) CARBON DIOXIDE (test 28 mEq/L 21-33 N code = CO2) ANION GAP (test code = 12 0-20 N GAP) GLUCOSE (test code = mg/dL 70-110 GLU) BLOOD UREA NITROGEN 10 mg/dL 7-18 N (test code = BUN) GLOMERULAR FILTRATION 41.3 90-95 L Units of measure = RATE (test code = GFR) ml/mi n/1.73 m2 CREATININE (test code 1.6 mg/dL 0.6-1.3 H = CREAT) CALCIUM (test code = 9.0 mg/dL 8.0-10.5 N CA) [id number] 12:55:00 Test Item Value Reference Range Interpretation Comments TROPONIN-I 0.020 ng/mL 0.000-0.045 N Negative: <= (test code = 0.045 Positive: TROPI) >= 0.046 Correl ation with serial results, other cardiac markers andclin ical findings is necessary to determine the clinicalsignifi cance of this result. Results using different metho dologies should not be c omparedto one another as carlyn titative results may hong y by method. BASIC METABOLIC [id number] 12:53:00 Test Item Value Reference Range Interpretation Comments SODIUM (test code = 132 mEq/L 134-147 L NA) POTASSIUM (test code = 5.4 mEq/L 3.4-5.0 H SPECI MEN 2+ K) HEMOLYZED.Resul ts known to be adv ersely affected by hem olysis are: Potass ium Magnesium LDH Phosphorus CHLORIDE (test code = 97 mEq/L 100-108 L CL) CARBON DIOXIDE (test 28 mEq/L 21-33 N code = CO2) ANION GAP (test code = 12 0-20 N GAP) GLUCOSE (test code = mg/dL 70-110 GLU) BLOOD UREA NITROGEN 10 mg/dL 7-18 N (test code = BUN) GLOMERULAR FILTRATION 41.3 90-95 L Units of measure = RATE (test code = GFR) ml/mi n/1.73 m2 CREATININE (test code 1.6 mg/dL 0.6-1.3 H = CREAT) CALCIUM (test code = 9.0 mg/dL 8.0-10.5 N CA) [id number] 12:53:00 Test Item Value Reference Range Interpretation Comments TROPONIN-I (test code = TROPI) ng/mL 0.000-0.045 PROTHROMBIN [id number] 12:45:00 Test Item Value Reference Range Interpretation Comments PROTHROMBIN TIME 11.5 SECONDS 9.3-12.9 N PATIENT (test code = PTP) INTERNATIONAL NORMAL 1.1 0.8-1.2 N TARGET RATIO (test code = INR BY IN DICATION INR) Indication INR1. Prophyl axis of venous thrombos is 2.0 - 3. 0 (orthopedic doris ana), Prophylaxis of venous thrombos is (other than hig h-risk surgery), Kya tment of Deep Vein Thrombosis/Pulm onary Embolism, Preve ntion of systemic emb olism - Tissue heart va lves, Acute Myocardia l Infarction (to prevent systemic embo lism), Valvular heart disease, Atri al Fibrillation, Bileaflet mecha nical valve in aortic position.2. Mec hanical prosthetic valv es (high risk), 2.5 - 3.5 Presence of Lupus Anticoagu lant or Antiphospholi pid Antibodies, Pre vention of systemic e mbolism - Acute Myocard ial Infarction (t o prevent recurre nt infarct). THROMBOPLASTIN TIME [id number] 12:45:00 Test Item Value Reference Range Interpretation Comments THROMBOPLASTIN TIME 34.0 Seconds 25.0-39.5 N Ther apeutic PARTIAL (test code = Range: 50.4 - 88.3 PTT) Seconds Effective 08/07/2018 PROTHROMBIN [id number] 12:42:00 Test Item Value Reference Range Interpretation Comments PROTHROMBIN TIME 11.5 SECONDS 9.3-12.9 N PATIENT (test code = PTP) INTERNATIONAL NORMAL 1.1 0.8-1.2 N TARGET RATIO (test code = INR BY IN DICATION INR) Indication INR1. Prophyl axis of venous thrombos is 2.0 - 3. 0 (orthopedic doris ana), Prophylaxis of venous thrombos is (other than hig h-risk surgery), Kya tment of Deep Vein Thrombosis/Pulm onary Embolism, Preve ntion of systemic emb olism - Tissue heart va lves, Acute Myocardia l Infarction (to prevent systemic embo lism), Valvular heart disease, Atri al Fibrillation, Bileaflet mecha nical valve in aortic position.2. Mec hanical prosthetic valv es (high risk), 2.5 - 3.5 Presence of Lupus Anticoagu lant or Antiphospholi pid Antibodies, Pre vention of systemic e mbolism - Acute Myocard ial Infarction (t o prevent recurre nt infarct). THROMBOPLASTIN TIME [id number] 12:42:00 Test Item Value Reference Range Interpretation Comments THROMBOPLASTIN TIME PARTIAL (test Seconds 25.0-39.5 code = PTT) CBC W/O [id number] 12:40:00 Test Item Value Reference Range Interpretation Comments WHITE BLOOD CELL (test code = 5.69 x10 3/uL 4.5-11.0 N WBC) RED BLOOD CELL (test code = 4.21 x10 6/uL 3.54-5.02 N RBC) HEMOGLOBIN (test code = HGB) 12.6 g/dL 11.0-15.0 N HEMATOCRIT (test code = HCT) 39.0 % 33.0-45.0 N MEAN CELL VOLUME (test code = 92.6 fL 81.0-99.0 N MCV) MEAN CELL HGB (test code = MCH) 29.9 pg 27.0-33.0 N MEAN CELL HGB CONCETRATION 32.3 g/dL 33.0-37.0 L (test code = MCHC) RED CELL DISTRIBUTION WIDTH CV 13.3 % 11.5-14.5 N (test code = RDW) RED CELL DISTRIBUTION WIDTH SD 45.1 fL 37.0-54.0 N (test code = RDW-SD) PLATELET COUNT (test code = 283 x10 3/uL 150-400 N PLT) MEAN PLATELET VOLUME (test code 12.4 fL 7.0-9.0 H = MPV) - CT HEAD/BRAIN W/O [id number] 12:38:00 Name: DANIA JANE [facility] : 1970 Age/S: 48 / F [address] [place] [address] Unit #: [id number] Loc: Saúl [id number] Phys: Mary Jay MD Acct: [id number] Dis Date: Status: PRE ER PHONE #: [phone] Exam Date: 02/07/2019 1238 FAX #: [phone] Reason: HEADACHE, BLURRED VISION, LEFT SIDED WEAKNESS EXAMS: CPTCODE: [id number] CT HEAD/BRAIN W/O CONT [id number] CT head without contrast 02/07/2019 HISTORY: Headache, blurry vision, left-sided weakness PROCEDURE: Multiple axial images from the skull base to the skull vertex were obtained without contrast. Coronal and sagittal reconstructed images were performed CT imaging performed at this location utilizes radiation dose optimization techniques which include one or more of the following: -Automated exposure control -Adjustment of the mA and/or kV accordingto patient size - Use of iterative reconstruction technique CT Radiation Dose DLP 419.7 mGy- cm Comparison is made to 08/08/2018 FINDINGS: No acute intracranial hemorrhage, midline shift, extra-axial fluid collection, or hydrocephalus is present. No cortical hypodensity to suggest an acute infarct is noted. Old right basal ganglia lacunar infarc t is noted. There is mild cortical volume loss. The visualized mastoid air cells are clear.There is mild right maxillary mucosal thickening. There is no air-fluid level in the visualized paranasal sinuses. Distal internal carotid arterial calcifications are present. IMPRESSION: 1. No acute intracranial abnormality. 2. 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 Findings were discussed with Dr. Jay by Dr. Zuñiga at 12:37 pm on 02/07/2019. SL: [id number] at 1238 Reported and signed by: Manny Zuñiga M.D. CC: Mary Jay MD; Tierra Man MD Technologist:RT Leslie(R)(CT) CTDI: DLP: Trnscb Date/Time: 02/07/2019 (1238) [id number] Orig Print D/T: S: 02/07/2019 (1247) PAGE 1 Signed Report POCT-GLUCOSE [id number] 08:11:00 Test Item Value Reference Range Interpretation Comments POC-GLUCOSE METER 266 mg/dL 70-110 H TESTED AT [place] [address] ([facility]) (test code = YARITZA Orr [facility] 1538) [address] POCT-GLUCOSE [id number] 06:29:00 Test Item Value Reference Range Interpretation Comments POC-GLUCOSE METER 253 mg/dL 70-110 H TESTED AT [place] [address] ([facility]) (test code = YARITZA Orr [facility] 9108) [address] [id number] 06:27:00 Test Item Value Reference Range Interpretation Comments MAGNESIUM (BEAKER) 1.9 mg/dL 1.6-2.6 Specimen slightly (test code = 627) hemolyzed [id number] 06:27:00 Test Item Value Reference Range Interpretation Comments PHOSPHORUS (BEAKER) 4.3 mg/dL 2.3-4.7 Specimen slightly (test code = 604) hemolyzed BASIC METABOLIC [id number] 06:27:00 Test Item Value Reference Range Interpretation Comments SODIUM (BEAKER) 137 meq/L 136-145 (test code = 381) POTASSIUM (BEAKER) 4.5 meq/L 3.5-5.1 Specimen slightly (test code = 379) hemolyzed CHLORIDE (BEAKER) 103 meq/L 98-107 (test code = 382) CO2 (BEAKER) (test 23 meq/L 22-29 code = 355) BLOOD UREA NITROGEN 22 mg/dL 7-21 H (BEAKER) (test code = 354) CREATININE (BEAKER) 1.41 mg/dL 0.57-1.25 H Specimen slightly (test code = 358) hemolyzed GLUCOSE RANDOM 257 mg/dL 70-105 H (BEAKER) (test code = 652) CALCIUM (BEAKER) 8.6 mg/dL 8.4-10.2 (test code = 697) EGFR (BEAKER) (test 48 mL/min/1.73 ESTIMA IRMA GFR IS code = 1092) sq m NOT ACCURATE CREATININE CLEARANCE IN PREDICTING GLOMERULAR FILTRATION RATE . ESTIMATED GFR I S NOT APPLICABLE FOR DIALYSIS PATIEN TS. PROTHROMBIN [id number] 06:07:00 Test Item Value Reference Range Interpretation Comments PROTIME (BEAKER) (test code = 42.5 seconds 11.9-14.2 H 759) INR (BEAKER) (test code = 370) 4.8 <=5.9 Effective 09/19/2018: PT Reference Range ChangeNew: 11.9-14.2 Previous: 11.7- 14.7RECOMMENDED COUMADIN/WARFARIN INR THERAPY RANGESSTANDARD DOSE: 2.0-3.0 Includes: PROPHYLAXIS for venous thrombosis, systemic embolization; TREATMENT for venous thrombosis and/or pulmonary embolus.HIGH RISK: Target INR is2.5-3.5 for patients wiht mechanical heart valves.While on warfarin.POCT-GLUCOSE METER 2018-12-18 21:38:00 Test Item Value Reference Range Interpretation Comments POC-GLUCOSE METER 229 mg/dL 70-110 H TESTED AT [place] [address] ([facility]) (test code = YARITZA Orr [facility] 1538) [id number] POCT-GLUCOSE [id number] 17:27:00 Test Item Value Reference Range Interpretation Comments POC-GLUCOSE METER 242 mg/dL 70-110 H TESTED AT [place] [address] ([facility]) (test code = YARITZA Orr [facility] 1538) [id number] CT, BRAIN, WITHOUT [id number] 16:34:00FINAL REPORT CT, BRAIN, WITHOUT CONTRAST INDICATION: Cerebral hemorrhage suspected TECHNIQUE: Noncontrast axial imaging was obtained from the vertex to the skull base. Axial images were reconstructed using a bone algorithm. DOSE REDUCTION: Dose modulation, iterative reconstruction, and/or weight-based adjustment of the mA/kV was utilized to reduce the radiation dose to as low as reasonably achievable. COMPARISON: CT 11/17/2018 FINDINGS: Intracranial: Chronic right basal ganglialacunar infarcts. No intracranial hemorrhage or abnormal extra-axial collection. No evidence of acute territorial infarct. No mass effect. No hydrocephalus. Osseous structures: No fracture. No suspicious lesion. Paranasal sinuses and mastoid air cells: Mild mucosal thickening in the maxillary sinuses. Mastoids are clear. Orbital contents: Bilateral lens replacements. IMPRESSION: No acute intracranialhemorrhage. If there is persistent clinical concern for intracranial pathology, MR examination is recommended for further characterization. Signed: Elva Del Real Verified Date/Time: 9 16:34:32 POCT-GLUCOSE [id number] 12:27:00 Test Item Value Reference Range Interpretation Comments POC-GLUCOSE METER 240 mg/dL 70-110 H TESTED AT [place] [address] ([facility]) (test code = YARITZA Orr [facility] 1538) [id number] POCT-GLUCOSE [id number] 11:20:00 Test Item Value Reference Range Interpretation Comments POC-GLUCOSE METER 206 mg/dL 70-110 H TESTED AT [place] [address] (BEAKER) (test code = YARITZA Orr [place] 1538) [address] POCT-GLUCOSE [id number] 08:36:00 Test Item Value Reference Range Interpretation Comments POC-GLUCOSE METER 252 mg/dL 70-110 H TESTED AT [facility] 67 (BEAKER) (test code = YARITZA Orr [place] 1538) [address] POCT-GLUCOSE [id number] 08:35:00 Test Item Value Reference Range Interpretation Comments POC-GLUCOSE METER 297 mg/dL 70-110 H TESTED AT [place] [address] (BEAKER) (test code = YARITZA Orr [facility] 1538) [address] [id number] 06:48:00 Test Item Value Reference Range Interpretation Comments PHOSPHORUS (BEAKER) (test code = 4.0 mg/dL 2.3-4.7 604) [id number] 06:48:00 Test Item Value Reference Range Interpretation Comments MAGNESIUM (BEAKER) (test code = 1.6 mg/dL 1.6-2.6 627) BASIC METABOLIC [id number] 06:48:00 Test Item Value Reference Range Interpretation Comments SODIUM (BEAKER) 139 meq/L 136-145 (test code = 381) POTASSIUM (BEAKER) 3.8 meq/L 3.5-5.1 (test code = 379) CHLORIDE (BEAKER) 105 meq/L 98-107 (test code = 382) CO2 (BEAKER) (test 25 meq/L 22-29 code = 355) BLOOD UREA NITROGEN 14 mg/dL 7-21 (BEAKER) (test code = 354) CREATININE (BEAKER) 0.82 mg/dL 0.57-1.25 (test code = 358) GLUCOSE RANDOM 274 mg/dL 70-105 H (BEAKER) (test code = 652) CALCIUM (BEAKER) 9.0 mg/dL 8.4-10.2 (test code = 697) EGFR (BEAKER) (test 89 mL/min/1.73 ESTIMA IRMA GFR IS code = 1092) sq m NOT ACCURATE CREATININE CLEARANCE IN PREDICTING GLOMERULAR FILTRATION RATE . ESTIMATED GFR I S NOT APPLICABLE FOR DIALYSIS PATIEN TS. TROPONIN [id number] 06:25:00 Test Item Value Reference Range Interpretation Comments TROPONIN I (BEAKER) (test code = 397) < ng/mL 0.00-0.03 Troponin I (TnI) levels must be interpreted in the context of the presenting symptoms and the clinical findings. Elevated TnI levels indicate myocardial damage, but are not specific for ischemic heart disease. Elevated TnI levels are seen in patients with other cardiac conditions (including myocarditis and congestive heart failure), and slight TnI elevations occur in patients with other conditions, including sepsis, renal failure, acidosis, acute neurological disease, and persistent tachyarrhythmia.PROTHROMBIN [id number] 06:10:00 Test Item Value Reference Range Interpretation Comments PROTIME (BEAKER) (test code = 44.1 seconds 11.9-14.2 H 759) INR (BEAKER) (test code = 370) 5.0 <=5.9 Effective 09/19/2018: PT Reference Range ChangeNew: 11.9-14.2 Previous: 11.7- 14.7RECOMMENDED COUMADIN/WARFARIN INR THERAPY RANGESSTANDARD DOSE: 2.0-3.0 Includes: PROPHYLAXIS for venous thrombosis, systemic embolization; TREATMENT for venous thrombosis and/or pulmonary embolus.HIGH RISK: Target INR is2.5-3.5 for patients wiht mechanical heart valves.While on warfarin.CBC W/PLT COUNT & AUTO [id number] 06:03:00 Test Item Value Reference Range Interpretation Comments WHITE BLOOD CELL COUNT (BEAKER) 7.4 K/ L 3.5-10.5 (test code = 775) RED BLOOD CELL COUNT (BEAKER) 3.70 M/ L 3.93-5.22 L (test code = 761) HEMOGLOBIN (BEAKER) (test code = 10.9 GM/DL 11.2-15.7 L 410) HEMATOCRIT (BEAKER) (test code = 34.6 % 34.1-44.9 411) MEAN CORPUSCULAR VOLUME (BEAKER) 93.5 fL 79.4-94.8 (test code = 753) MEAN CORPUSCULAR HEMOGLOBIN 29.5 pg 25.6-32.2 (BEAKER) (test code = 751) MEAN CORPUSCULAR HEMOGLOBIN CONC 31.5 GM/DL 32.2-35.5 L (BEAKER) (test code = 752) RED CELL DISTRIBUTION WIDTH 13.7 % 11.7-14.4 (BEAKER) (test code = 412) PLATELET COUNT (BEAKER) (test 274 K/CU MM 150-450 code = 756) MEAN PLATELET VOLUME (BEAKER) 12.4 fL 9.4-12.3 H (test code = 754) NUCLEATED RED BLOOD CELLS 0 /100 WBC 0-0 (BEAKER) (test code = 413) NEUTROPHILS RELATIVE PERCENT 44 % (BEAKER) (test code = 429) LYMPHOCYTES RELATIVE PERCENT 40 % (BEAKER) (test code = 430) MONOCYTES RELATIVE PERCENT 8 % (BEAKER) (test code = 431) EOSINOPHILS RELATIVE PERCENT 7 % (BEAKER) (test code = 432) BASOPHILS RELATIVE PERCENT 1 % (BEAKER) (test code = 437) NEUTROPHILS ABSOLUTE COUNT 3.25 K/ L 1.56-6.13 (BEAKER) (test code = 670) LYMPHOCYTES ABSOLUTE COUNT 2.93 K/ L 1.18-3.74 (BEAKER) (test code = 414) MONOCYTES ABSOLUTE COUNT (BEAKER) 0.56 K/ L 0.24-0.36 H (test code = 415) EOSINOPHILS ABSOLUTE COUNT 0.49 K/ L 0.04-0.36 H (BEAKER) (test code = 416) BASOPHILS ABSOLUTE COUNT (BEAKER) 0.09 K/ L 0.01-0.08 H (test code = 417) IMMATURE GRANULOCYTES-RELATIVE 1 % 0-1 PERCENT (BEAKER) (test code = 2801) URINALYSIS W/ REFLEX URINE [id number] 05:52:00 Test Item Value Reference Range Interpretation Comments COLOR (BEAKER) (test code = 470) Yellow CLARITY (BEAKER) (test code = Clear 469) SPECIFIC GRAVITY UA (BEAKER) 1.050 1.001-1.035 H (test code = 468) PH UA (BEAKER) (test code = 467) 5.5 5.0-8.0 PROTEIN UA (BEAKER) (test code = 10 mg/dL Negative A 464) GLUCOSE UA (BEAKER) (test code = >1000 mg/dL Negative A 365) KETONES UA (BEAKER) (test code = Negative Negative 371) BILIRUBIN UA (BEAKER) (test code Negative Negative = 462) BLOOD UA (BEAKER) (test code = Negative Negative 461) NITRITE UA (BEAKER) (test code = Negative Negative 465) LEUKOCYTE ESTERASE UA (BEAKER) Small Negative A (test code = 466) UROBILINOGEN UA (BEAKER) (test 0.2 mg/dL 0.2-1.0 code = 463) RBC UA (BEAKER) (test code = 519) 1 /HPF WBC UA (BEAKER) (test code = 520) 0 /HPF MUCUS (BEAKER) (test code = 1574) Rare SQUAMOUS EPITHELIAL (BEAKER) 5 /HPF (test code = 516) SOURCE(BEAKER) (test code = 2795) TROPONIN [id number] 01:10:00 Test Item Value Reference Range Interpretation Comments TROPONIN I (BEAKER) (test code = 397) < ng/mL 0.00-0.03 Troponin I (TnI) levels must be interpreted in the context of the presenting symptoms and the clinical findings. Elevated TnI levels indicate myocardial damage, but are not specific for ischemic heart disease. Elevated TnI levels are seen in patients with other cardiac conditions (including myocarditis and congestive heart failure), and slight TnI elevations occur in patients with other conditions, including sepsis, renal failure, acidosis, acute neurological disease, and persistent tachyarrhythmia.POCT-GLUCOSE [id number] 16:43:00 Test Item Value Reference Range Interpretation Comments POC-GLUCOSE METER 107 mg/dL 70-110 TESTED AT [place] [address] ([facility]) (test code = YARITZA Orr [facility] 1538) [id number] POCT-GLUCOSE [id number] 11:31:00 Test Item Value Reference Range Interpretation Comments POC-GLUCOSE METER 209 mg/dL 70-110 H TESTED AT [place] [address] ([facility]) (test code = YARITZA Orr [facility] 1538) [address] POCT-GLUCOSE [id number] 08:31:00 Test Item Value Reference Range Interpretation Comments POC-GLUCOSE METER 309 mg/dL 70-110 H Notified Kirby Escobar MD/TESTED ([facility]) (test code = AT [address] 1538) [facility] 7[address] 0 POCT-GLUCOSE [id number] 21:56:00 Test Item Value Reference Range Interpretation Comments POC-GLUCOSE METER 184 mg/dL 70-110 H TESTED AT [place] [address] ([facility]) (test code = YARITZA Orr [facility] 1538) [address] POCT-GLUCOSE [id number] 17:09:00 Test Item Value Reference Range Interpretation Comments POC-GLUCOSE METER 167 mg/dL 70-110 H TESTED AT [place] [address] ([facility]) (test code = YARITZA Orr [facility] 1538) [address] POCT-GLUCOSE [id number] 12:20:00 Test Item Value Reference Range Interpretation Comments POC-GLUCOSE METER 226 mg/dL 70-110 H TESTED AT [place] [address] ([facility]) (test code = YARITZA Orr [facility] 1538) [address] POCT-GLUCOSE [id number] 06:40:00 Test Item Value Reference Range Interpretation Comments POC-GLUCOSE METER 253 mg/dL 70-110 H TESTED AT [place] [address] ([facility]) (test code = YARITZA Orr [facility] 1538) [address] POCT-GLUCOSE [id number] 00:38:00 Test Item Value Reference Range Interpretation Comments POC-GLUCOSE METER 297 mg/dL 70-110 H TESTED AT [place] [address] ([facility]) (test code = YARITZA Kirby [facility] 1538) [address] POCT-GLUCOSE [id number] 17:53:00 Test Item Value Reference Range Interpretation Comments POC-GLUCOSE METER 284 mg/dL 70-110 H TESTED AT [place] [address] ([facility]) (test code = YARITZA Orr [facility] 1538) [address] POCT-GLUCOSE [id number] 11:40:00 Test Item Value Reference Range Interpretation Comments POC-GLUCOSE METER 293 mg/dL 70-110 H TESTED AT [place] [address] ([facility]) (test code = YARITZA Orr [facility] 1538) [address] TSH/FREE T4 IF [id number] 06:29:00 Test Item Value Reference Range Interpretation Comments THYROID STIMULATING HORMONE 1.52 uIU/mL 0.35-4.94 ([facility]) (test code = 772) POCT-GLUCOSE [id number] 06:11:00 Test Item Value Reference Range Interpretation Comments POC-GLUCOSE METER 338 mg/dL 70-110 H Notified Kirby Escobar MD/TESTED ([facility]) (test code = AT [place] [address] [address] 1538) [facility] 7703 0 BASIC METABOLIC [id number] 06:08:00 Test Item Value Reference Range Interpretation Comments SODIUM (BEAKER) 137 meq/L 136-145 (test code = 381) POTASSIUM (BEAKER) 4.2 meq/L 3.5-5.1 Specimen slightly (test code = 379) hemolyzed CHLORIDE (BEAKER) 104 meq/L 98-107 (test code = 382) CO2 (BEAKER) (test 26 meq/L 22-29 code = 355) BLOOD UREA NITROGEN 13 mg/dL 7-21 (BEAKER) (test code = 354) CREATININE (BEAKER) 0.85 mg/dL 0.57-1.25 Specimen slightly (test code = 358) hemolyzed GLUCOSE RANDOM 313 mg/dL 70-105 H (BEAKER) (test code = 652) CALCIUM (BEAKER) 9.0 mg/dL 8.4-10.2 (test code = 697) EGFR (BEAKER) (test 86 mL/min/1.73 ESTIMA IRMA GFR IS code = 1092) sq m NOT ACCURATE CREATININE CLEARANCE IN PREDICTING GLOMERULAR FILTRATION RATE . ESTIMATED GFR I S NOT APPLICABLE FOR DIALYSIS PATIEN TS. POCT-GLUCOSE [id number] 06:02:00 Test Item Value Reference Range Interpretation Comments POC-GLUCOSE METER 225 mg/dL 70-110 H TESTED AT [facility] 6720 (BEAKER) (test code = MANDOGIOVANNA Kirby [place] 1539) [address] CBC W/PLT COUNT & AUTO [id number] 05:36:00 Test Item Value Reference Range Interpretation Comments WHITE BLOOD CELL COUNT (BEAKER) 10.0 K/ L 3.5-10.5 (test code = 775) RED BLOOD CELL COUNT (BEAKER) 3.69 M/ L 3.93-5.22 L (test code = 761) HEMOGLOBIN (BEAKER) (test code = 11.1 GM/DL 11.2-15.7 L 410) HEMATOCRIT (BEAKER) (test code = 34.5 % 34.1-44.9 411) MEAN CORPUSCULAR VOLUME (BEAKER) 93.5 fL 79.4-94.8 (test code = 753) MEAN CORPUSCULAR HEMOGLOBIN 30.1 pg 25.6-32.2 (BEAKER) (test code = 751) MEAN CORPUSCULAR HEMOGLOBIN CONC 32.2 GM/DL 32.2-35.5 (BEAKER) (test code = 752) RED CELL DISTRIBUTION WIDTH 13.2 % 11.7-14.4 (BEAKER) (test code = 412) PLATELET COUNT (BEAKER) (test 268 K/CU MM 150-450 code = 756) MEAN PLATELET VOLUME (BEAKER) 11.7 fL 9.4-12.3 (test code = 754) NUCLEATED RED BLOOD CELLS 0 /100 WBC 0-0 (BEAKER) (test code = 413) NEUTROPHILS RELATIVE PERCENT 47 % (BEAKER) (test code = 429) LYMPHOCYTES RELATIVE PERCENT 28 % (BEAKER) (test code = 430) MONOCYTES RELATIVE PERCENT 6 % (BEAKER) (test code = 431) EOSINOPHILS RELATIVE PERCENT 17 % (BEAKER) (test code = 432) BASOPHILS RELATIVE PERCENT 1 % (BEAKER) (test code = 437) NEUTROPHILS ABSOLUTE COUNT 4.67 K/ L 1.56-6.13 (BEAKER) (test code = 670) LYMPHOCYTES ABSOLUTE COUNT 2.84 K/ L 1.18-3.74 (BEAKER) (test code = 414) MONOCYTES ABSOLUTE COUNT (BEAKER) 0.58 K/ L 0.24-0.36 H (test code = 415) EOSINOPHILS ABSOLUTE COUNT 1.68 K/ L 0.04-0.36 H (BEAKER) (test code = 416) BASOPHILS ABSOLUTE COUNT (BEAKER) 0.12 K/ L 0.01-0.08 H (test code = 417) IMMATURE GRANULOCYTES-RELATIVE 1 % 0-1 PERCENT (BEAKER) (test code = 2801) POCT-GLUCOSE [id number] 17:44:00 Test Item Value Reference Range Interpretation Comments POC-GLUCOSE METER 263 mg/dL 70-110 H TESTED AT [place] [address] ([facility]) (test code = YARITZA Orr [facility] 1538) [address] POCT-GLUCOSE [id number] 17:18:00 Test Item Value Reference Range Interpretation Comments POC-GLUCOSE METER 314 mg/dL 70-110 H TESTED AT [place] [address] ([facility]) (test code = [facility] 1538) [address] CT, BRAIN, WITHOUT [id number] 16:52:00FINAL REPORT CT, BRAIN, WITHOUT CONTRAST CLINICAL INDICATION: Stroke COMPARISON: 16 hours prior TECHNIQUE: Noncontrast axial CT imaging of the brain and skull. DOSE REDUCTION:Dose modulation, iterative reconstruction, and/or weight-based adjustment of the mA/kV was utilized to reduce the radiation dose to as low as reasonably achievable. FINDINGS:Cerebral parenchyma: No interval infarct or hemorrhage. Stable ischemic changes in the right basal ganglia.Midline structures: Normally positioned.Cerebellum and brainstem: Normal.Ventricles: Normal volume.Extra-axial spaces: Unremarkable. Calvarium and skull base: Intact.Paranasal sinuses and mastoid air cells: Visible chambersare clear.Orbital contents: Included portions unremarkable. Additional findings: None. IMPRESSION: Stable intracranial appearance without interval infarct or hemorrhage. If there is persistent clinical concern for intracranial pathology, MR examination is recommended for further characterization, if clinically feasible. Signed: JR Pichardo Robert MDReport Verified Date/Time: 11/17/2018 16:52:46 Reading Location: [facility] C013 Neuro Reading Room RPR 2018-11-17 13:27:00 Test Item Value Reference Range Interpretation Comments RPR SCREEN (BEAKER) (test code = Nonreactive Nonreactive 420) HEMOGLOBIN [id number] 08:24:00 Test Item Value Reference Range Interpretation Comments HEMOGLOBIN A1C (BEAKER) (test code = 16.1 % 4.3-6.1 H 368) LIPID [id number] 06:52:00 Test Item Value Reference Range Interpretation Comments TRIGLYCERIDES (BEAKER) (test code = 338 mg/dL 540) CHOLESTEROL (BEAKER) (test code = 252 mg/dL 631) HDL CHOLESTEROL (BEAKER) (test code 31 mg/dL = 976) LDL CHOLESTEROL CALCULATED (BEAKER) 153 mg/dL (test code = 633) Triglyceride Reference Range: Low Risk <150 Borderline 150-199 High Risk 200-499 Very High Risk >=500Cholesterol Reference Range: Low Risk <200 Borderline 200-239 High Risk >240HDL Cholesterol Reference Range: Low Risk >=60 High Risk <40LDL Cholesterol Reference Range: Optimal <100 Near Optimal 100-129 Borderline 130-159 High 160-189 Very High >=190BASIC METABOLIC [id number] 06:52:00 Test Item Value Reference Range Interpretation Comments SODIUM (BEAKER) 137 meq/L 136-145 (test code = 381) POTASSIUM (BEAKER) 3.9 meq/L 3.5-5.1 (test code = 379) CHLORIDE (BEAKER) 103 meq/L 98-107 (test code = 382) CO2 (BEAKER) (test 28 meq/L 22-29 code = 355) BLOOD UREA NITROGEN 12 mg/dL 7-21 (BEAKER) (test code = 354) CREATININE (BEAKER) 0.87 mg/dL 0.57-1.25 (test code = 358) GLUCOSE RANDOM 296 mg/dL 70-105 H (BEAKER) (test code = 652) CALCIUM (BEAKER) 8.9 mg/dL 8.4-10.2 (test code = 697) EGFR (BEAKER) (test 84 mL/min/1.73 ESTIMA IRMA GFR IS code = 1092) sq m NOT ACCURATE CREATININE CLEARANCE IN PREDICTING GLOMERULAR FILTRATION RATE . ESTIMATED GFR I S NOT APPLICABLE FOR DIALYSIS PATIEN TS. VITAMIN [id number] 06:25:00 Test Item Value Reference Range Interpretation Comments VITAMIN B12 (BEAKER) (test code = 356 pg/mL 213-816 774) FOLATE, [id number] 06:25:00 Test Item Value Reference Range Interpretation Comments FOLATE (BEAKER) (test code = 362) 17.8 ng/mL >=7.0 TSH/FREE T4 IF [id number] 06:25:00 Test Item Value Reference Range Interpretation Comments THYROID STIMULATING HORMONE 1.11 uIU/mL 0.35-4.94 (BEAKER) (test code = 772) POCT-GLUCOSE [id number] 05:56:00 Test Item Value Reference Range Interpretation Comments POC-GLUCOSE METER 282 mg/dL 70-110 H TESTED AT [facility] 6720 (BEAKER) (test code = YARITZA COOLEY 7827) [address] CBC W/PLT COUNT & AUTO [id number] 05:45:00 Test Item Value Reference Range Interpretation Comments WHITE BLOOD CELL COUNT (BEAKER) 11.1 K/ L 3.5-10.5 H (test code = 775) RED BLOOD CELL COUNT (BEAKER) 3.54 M/ L 3.93-5.22 L (test code = 761) HEMOGLOBIN (BEAKER) (test code = 10.5 GM/DL 11.2-15.7 L 410) HEMATOCRIT (BEAKER) (test code = 32.7 % 34.1-44.9 L 411) MEAN CORPUSCULAR VOLUME (BEAKER) 92.4 fL 79.4-94.8 (test code = 753) MEAN CORPUSCULAR HEMOGLOBIN 29.7 pg 25.6-32.2 (BEAKER) (test code = 751) MEAN CORPUSCULAR HEMOGLOBIN CONC 32.1 GM/DL 32.2-35.5 L (BEAKER) (test code = 752) RED CELL DISTRIBUTION WIDTH 13.3 % 11.7-14.4 (BEAKER) (test code = 412) PLATELET COUNT (BEAKER) (test 223 K/CU MM 150-450 code = 756) MEAN PLATELET VOLUME (BEAKER) 12.0 fL 9.4-12.3 (test code = 754) NUCLEATED RED BLOOD CELLS 0 /100 WBC 0-0 (BEAKER) (test code = 413) NEUTROPHILS RELATIVE PERCENT 48 % (BEAKER) (test code = 429) LYMPHOCYTES RELATIVE PERCENT 27 % (BEAKER) (test code = 430) MONOCYTES RELATIVE PERCENT 6 % (BEAKER) (test code = 431) EOSINOPHILS RELATIVE PERCENT 17 % (BEAKER) (test code = 432) BASOPHILS RELATIVE PERCENT 1 % (BEAKER) (test code = 437) NEUTROPHILS ABSOLUTE COUNT 5.35 K/ L 1.56-6.13 (BEAKER) (test code = 670) LYMPHOCYTES ABSOLUTE COUNT 3.02 K/ L 1.18-3.74 (BEAKER) (test code = 414) MONOCYTES ABSOLUTE COUNT (BEAKER) 0.68 K/ L 0.24-0.36 H (test code = 415) EOSINOPHILS ABSOLUTE COUNT 1.85 K/ L 0.04-0.36 H (BEAKER) (test code = 416) BASOPHILS ABSOLUTE COUNT (BEAKER) 0.11 K/ L 0.01-0.08 H (test code = 417) IMMATURE GRANULOCYTES-RELATIVE 1 % 0-1 PERCENT (BEAKER) (test code = 2801) POCT-GLUCOSE [id number] 00:50:00 Test Item Value Reference Range Interpretation Comments POC-GLUCOSE METER 334 mg/dL 70-110 H Notified R Judy NUGENT/TESTED (BEAKER) (test code = AT [facility] [address]) [facility] [address], BRAIN, WITHOUT [id number] 00:31:00FINAL REPORT EXAM: CT head without contrast. CLINICAL HISTORY: Head trauma, p ersistent unexplained deficits, f/u imaging. Stroke, post tpa COMPARISON: None. TECHNIQUE: CT imagesof the head were obtained without intravenous contrast. This exam was performed according to our departmental dose optimization program which includes automated exposure control, adjustment of the mA and/or kV according to patient's size and/or use of iterative reconstructive technique. FINDINGS:There is a chronic right basal ganglia infarct. There is intracranial calcific atherosclerosis.There is no acute intracranial hemorrhage, extra-axial fluid collection, mass effect, herniation, hydrocephalusor large demarcated acute territorial infarct. The basal cisterns are patent. There are bilateral lens replacements. The visualized paranasal sinuses and tympanomastoid cavities are clear. The skullbase and calvarium are intact. IMPRESSION: Chronic right basal ganglia infarct. No acute intracranial hemorrhage, mass effect or large demarcated acute territorial infarct. MRI may be performed for further evaluation as clinically warranted. Signed: Malcom Bueno MDReport Verified Date/Time: 11/17/2018 00:31:07 [id number] 08:31:00 Test Item Value Reference Range Interpretation Comments GLUBED (test code = 328 MG/DL 70-110 H Performe d by certified GLUBED) 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 [facility] [id number] 20:40:00 Test Item Value Reference Range Interpretation Comments GLUBED (test code = 252 MG/DL 70-110 H Performe d by certified GLUBED) 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 [facility] [id number] 16:10:00 Test Item Value Reference Range Interpretation Comments GLUBED (test code = 78 MG/DL 70-110 N Performe d by certified GLUBED) 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 [facility] [id number] 12:55:00 Test Item Value Reference Range Interpretation Comments GLUBED (test code = 187 MG/DL 70-110 H Performe d by certified GLUBED) 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 [facility] - CT HEAD/BRAIN W/O [id number] 09:31:00 Name: DANIA JANE [facility] : 1970 Age/S: 48 / F [address] [place] [address] Unit #: [id number] Loc: Saúl [id number] Phys: Tami Miguel MD Acct: [id number] Dis Date: Status: ADM IN PHONE #: [phone] Exam Date: 08/08/2018907 FAX #: [phone] Reason: LEFT WEA KNESS, EVAL FOR STABILITY EXAMS: CPTCODE: [id number] CT HEAD/BRAIN W/O CONT 51089 CT head without contrast 08/08/2018 HISTORY: Left-sided [...] 2. Mild chronic microvascular ischemic changes. SL: [id number] at 0931 Reported and signed by: Manny Zuñiga M.D. CC: Bernardo Hazel MD; Tami Bonds MD; Tierra Man MD Technologist:Rey Bonner RT(R)(CT) CTDI: DLP: Trnscb Date/Time: 08/08/2018 (0931) [email or web address] Orig Print D/T: S: 08/08/2018 (0934) CTDI: DLP: PAGE 1 Signed [id number] 08:27:00 Test Item Value Reference Range Interpretation Comments GLUBED (test code = 328 MG/DL 70-110 H Performe d by certified GLUBED) 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 [facility] HGBA1C%2018-08-08 08:09:00 Test Item Value Reference Range Interpretation Comments HGBA1C% (test code = HGBA1C%) 13.6 %A1C 4.8-6.0 H LIPID PROFILE (CORONARY RISK)2018-08-08 07:56:00 Test Item Value Reference Range Interpretation Comments TRIGLYCERIDES (test 196 mg/dL 40-150 H code = TRIG) CHOLESTEROL (test 430 mg/dL <200 H code = CHOL) CHOLESTEROL/HDL 11.32 RATIO 3.27-4.44 H RISK ASSOCIA IRMA WITH RATIO (test code = CHOL/HDL RATIOS: CHOLHDL) RISK MALE FEMALE1/2 A VERAGE 3.43 3.27AVERAGE 4.97 4.[address] RAGE 23.39 11.04 NOTE THAT THE REFERENCE VALUE IS RELATEDTO RISK LEVELS RECOMMENDED BY THE NATL.HEART, ROULA G, AND BLOOD INST. HDL CHOLESTEROL 38.0 mg/dL 39-96 L (test code = HDL) LIPOPROTEIN LDL 311 mg/dL 0-100 H <100 (test code = LDL) [id number] -129 NEAR OPTIMAL/ABOVE [id number] [id number] 89 HIGH>WO=129 VE RY HIGH*Guidelines provided by the National Choles terol EducationProgra m Adult Treatment Panel III COMMENTS: Fasting in AMBASIC METABOLIC [id number] 21:01:00 Test Item Value Reference Range Interpretation Comments SODIUM (test code = NA) 145 mEq/L 134-147 N POTASSIUM (test code = 3.1 mEq/L 3.4-5.0 L K) CHLORIDE (test code = 101 mEq/L 100-108 N CL) CARBON DIOXIDE (test 27 mEq/L 21-33 N code = CO2) ANION GAP (test code = 20 0-20 N GAP) GLUCOSE (test code = 179 mg/dL 70-110 H GLU) BLOOD UREA NITROGEN 7 mg/dL 7-18 N (test code = BUN) GLOMERULAR FILTRATION 107.2 90-95 H Units of measure = RATE (test code = GFR) ml/mi n/1.73 m2 CREATININE (test code = 0.7 mg/dL 0.6-1.3 N CREAT) CALCIUM (test code = 9.2 mg/dL 8.0-10.5 N CA) [id number] 21:01:00 Test Item Value Reference Range Interpretation Comments TROPONIN-I < 0.015 ng/mL 0.000-0.045 N Negative: <= (test code = 0.045 Positive: TROPI) >= 0.046 Correl ation with serial results, other cardiac markers andclinical findings is nec essary to determine the clinicalsignifi cance of this result. Results using different metho dologies should not be c omparedto one another as carlyn titative results may hong y by method. URINALYSIS [id number] 20:56:00 Test Item Value Reference Range Interpretation Comments UA COLOR (test code = COLU) YELLOW YEL/STRAW UA APPEARANCE (test code = APPU) CLOUDY CLEAR A UA GLUCOSE DIPSTICK (test code = 3+ NEGATIVE A DGLUU) UA BILIRUBIN DIPSTICK (test code NEGATIVE NEGATIVE = BILU) UA KETONE DIPSTICK (test code = NEGATIVE NEGATIVE KETU) UA SPECIFIC GRAVITY (test code = 1.014 1.005-1.030 N SGU) UA BLOOD DIPSTICK (test code = NEGATIVE NEGATIVE ELVIRA) UA PH DIPSTICK (test code = TY) 6.0 5.0-7.0 N UA PROTEIN DIPSTICK (test code = 1+ NEGATIVE A PROU) UA UROBILINIOGEN DIPSTICK (test 0.2 mg/dL 0.2-1.0 code = URO) UA NITRITE DIPSTICK (test code = NEGATIVE NEGATIVE CARLOTA) UA LEUKOCYTE ESTERASE DIPSTICK 3+ NEGATIVE A (test code = LEUU) UA WBC (test code = WBCU) >50 WBC/HPF 0-3 A UA RBC (test code = RBCU) 4-10 RBC/HPF 0-3 UA BACTERIA (test code = BACU) 1+ /HPF NONE SEEN A UA SQUAMOUS CELLS (test code = 6-10 /HPF NONE SEEN A SQU) UA HYALINE CAST (test code = 3-5 /LPF NONE SEEN HYALU) UA MUCUS (test code = MUCU) TRACE /LPF NONE SEEN COMMENTS: Clean CatchPROTHROMBIN [id number] 20:56:00 Test Item Value Reference Range Interpretation Comments PROTHROMBIN TIME 12.3 SECONDS 9.3-12.9 N PATIENT (test code = PTP) INTERNATIONAL NORMAL 1.1 0.8-1.2 N TARGET RATIO (test code = INR BY IN DICATION INR) Indication INR1. Prophyl axis of venous thrombos is 2.0 - 3. 0 (orthopedic doris ana), Prophylaxis of venous thrombos is (other than hig h-risk surgery), Kya tment of Deep Vein Thrombosis/Pulm onary Embolism, Preve ntion of systemic emb olism - Tissue heart va lves, Acute Myocardia l Infarction (to prevent systemic embo lism), Valvular heart disease, Atri al Fibrillation, Bileaflet mecha nical valve in aortic position.2. Mec hanical prosthetic valv es (high risk), 2.5 - 3.5 Presence of Lupus Anticoagu lant or Antiphospholi pid Antibodies, Pre vention of systemic e mbolism - Acute Myocard ial Infarction (t o prevent recurre nt infarct). THROMBOPLASTIN TIME [id number] 20:56:00 Test Item Value Reference Range Interpretation Comments THROMBOPLASTIN TIME 34.6 Seconds 25.0-39.5 N Ther apeutic PARTIAL (test code = Range: 61.8-83.8 PTT) Sec Effective 05/22/2013 CBC W/O [id number] 20:51:00 Test Item Value Reference Range Interpretation Comments WHITE BLOOD CELL (test code = 7.31 x10 3/uL 4.5-11.0 N WBC) RED BLOOD CELL (test code = 4.45 x10 6/uL 3.54-5.02 N RBC) HEMOGLOBIN (test code = HGB) 13.4 g/dL 11.0-15.0 N HEMATOCRIT (test code = HCT) 39.3 % 33.0-45.0 N MEAN CELL VOLUME (test code = 88.3 fL 81.0-99.0 N MCV) MEAN CELL HGB (test code = MCH) 30.1 pg 27.0-33.0 N MEAN CELL HGB CONCETRATION 34.1 g/dL 33.0-37.0 N (test code = MCHC) RED CELL DISTRIBUTION WIDTH CV 12.4 % 11.5-14.5 N (test code = RDW) RED CELL DISTRIBUTION WIDTH SD 40.8 fL 37.0-54.0 N (test code = RDW-SD) PLATELET COUNT (test code = 318 x10 3/uL 150-400 N PLT) MEAN PLATELET VOLUME (test code 11.3 fL 7.0-9.0 H = MPV) - CT HEAD/BRAIN W/O [id number] 20:23:00 Name: DANIA JANE [facility] [place] : 1970 Age/S: 48 / F [address] [facility] Unit #: [id number] Loc: EMERY Hays77598 Phys: Vinay Gross MD Acct: [id number] Dis Date: Status: REG ER PHONE #: [phone] Exam Date: 08/06/20182007 FAX #: [phone] Reason: L sided stroke symptoms EXAMS: CPTCODE: [id number] CT HEAD/BRAIN W/O CONT 13896 STUDY: - CT HEAD/BRAIN W/O CONT 08/06/2018 7:46 PM Ordering Physician: Vinay Gross MD Patient Name: DANIA JANE MR: [id number] : 1970; Age: 48 years y/o Female [...] 1 Signed Report (CONTINUED) Name: DANIA JANE [facility] [place] : 1970 Age/S: 48 / F [address] [place] [address] Unit #: [id number] Loc: EMERY [place] [address] Phys: Vinay Gross MD Acct: [id number] Dis Date: Status: REG ER PHONE #: [phone] Exam Date: 08/06/20182007 FAX #: [phone] Reason: L sided stroke symptoms EXAMS: CPT CODE: [id number] CT HEAD/BRAIN W/O CONT 33719 <Continued> Mild diffuse age appropriate atrophy associated with nonspecific periventricular low low attenuation most consistent with old microangiopathic ischemic change. 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 No acute intracranial abnormality. SL: TPAINTER-H at 2022 Reported and signed by: Nawaf Land M.D. CC: Vinay Gross MD; Tierra Man MD Technologist:RT Kevin(R)(CT) CTDI: DLP: Trnscb Date/Time: 08/06/2018 (2022) [email or web address] [facility] S: 08/06/2018 (2025) CTDI: DLP: PAGE 2 Signed Report- XR CHEST 1 [id number] 20:22:00 FAX: Vinay Gross MD [phone] Seth: St: [facility] FAX: Tierra Shepard MD [phone] Name: DANIA JANE [facility] : 1970 Age/S: 48/F [address] [place] [address] Blvd Unit #: [id number] Loc: G.ERS2 EMERY [place] [address] Phys: Vinay Gross MD Acct: [id number] Dis Date: Status: REG ER PHONE #: [phone] Exam Date: 08/06/20182004 FAX #: [phone] Reason: L sidedstroke symptoms EXAMS: CPT CODE: [id number] XR CHEST 1 V 84423 Study: - XR CHEST 1 V 08/06/2018 7:46 PM Ordering Physician: [...] Vinay Gross MD; Tierra Man MD Technologist: Marlene Ruby RT(R)(M) Trnscrd Date/Time/By: 08/06/2018 (2021) : By: [email or web address] Orig Print D/T: S: 08/06/2018 (2024) PAGE 1 Signed ReportCARDIAC [id number] 20:42:00 Test Item Value Reference Range Interpretation Comments Total CK (test code = Total CK) 127 12-191 [facility] [id number] 20:42:00 Test Item Value Reference Range Interpretation Comments BNP (test code = BNP) 3 [facility] [id number] 20:42:00 Test Item Value Reference Range Interpretation Comments Troponin-I (test code no gt See_Comment [Auto mated message] The = Troponin-I) system which g enerated this result transmit irma reference range : <=0.40. The reference r laxmi was not used to interpr et this result as gabi l/abnormal. [facility] [employer] [id number] 20:42:00 Test Item Value Reference Range Interpretation Comments eGFR (test code = eGFR) 72 [facility] [employer] [id number] 20:42:00 Test Item Value Reference Range Interpretation Comments Bili Total (test code = Bili Total) 0.6 0.2-1.3 [facility] [employer] [id number] 20:42:00 Test Item Value Reference Range Interpretation Comments Sodium Lvl (test code = Sodium Lvl) 134 135-145 [facility]2019-03-18 20:42:00 Test Item Value Reference Range Interpretation Comments Creatinine Lvl (test code = Creatinine 0.93 0.50-1.40 Lvl) [facility]2019-03-18 20:42:00 Test Item Value Reference Range Interpretation Comments CO2 (test code = CO2) 23 24-32 [facility]2019-03-18 20:42:00 Test Item Value Reference Range Interpretation Comments Chloride Lvl (test code = Chloride Lvl) 100 95-109 [facility]2019-03-18 20:42:00 Test Item Value Reference Range Interpretation Comments Albumin Lvl (test code = Albumin Lvl) 3.6 3.5-5.0 [facility]2019-03-18 20:42:00 Test Item Value Reference Range Interpretation Comments Total Protein (test code = Total 8.6 6.4-8.4 Protein) [facility]2019-03-18 20:42:00 Test Item Value Reference Range Interpretation Comments Calcium Lvl (test code = Calcium Lvl) 9.4 8.5-10.5 [place] 145699-03-18 20:42:00 Test Item Value Reference Range Interpretation Comments AST (test code = AST) 25 See_Comment [Auto mated message] The system which ge nerated this result transmit irma reference range : <=37. The reference range was not used to interpr et this result as gabi l/abnormal. [facility]2019-03-18 20:42:00 Test Item Value Reference Range Interpretation Comments Alk Phos (test code = Alk Phos) 99 39-136 [facility]2019-03-18 20:42:00 Test Item Value Reference Range Interpretation Comments ALT (test code = ALT) 21 See_Comment [Auto mated message] The system which ge nerated this result transmit irma reference range : <=65. The reference range was not used to interpr et this result as gabi l/abnormal. [facility]2019-03-18 20:42:00 Test Item Value Reference Range Interpretation Comments BUN (test code = BUN) 13 7-22 [place] 145699-03-18 20:42:00 Test Item Value Reference Range Interpretation Comments Potassium Lvl (test code = Potassium 5.1 3.5-5.1 Lvl) [facility]2019-03-18 20:42:00 Test Item Value Reference Range Interpretation Comments Glucose Lvl (test code = Glucose Lvl) 336 70-99 [facility]2019-03-18 20:42:00 Test Item Value Reference Range Interpretation Comments A/G Ratio (test code = A/G Ratio) 0.7 1 0.7-1.6 [facility]2019-03-18 20:42:00 Test Item Value Reference Range Interpretation Comments Globulin (test code = Globulin) 5.0 2.7-4.2 [facility]2019-03-18 20:42:00 Test Item Value Reference Range Interpretation Comments B/C Ratio (test code = B/C Ratio) 14 1 6-25 [facility]2019-03-18 20:42:00 Test Item Value Reference Range Interpretation Comments AGAP (test code = AGAP) 16.1 10.0-20.0 [facility] AustinNxxmixkPYOFWMWTZA3227-16-62 20:42:00 Test Item Value Reference Range Interpretation Comments Eosinophils # (test code 0.2 See_Comment [A utomated message] The = Eosinophils #) system whic h generated this result tra nsmitted reference range : <=0.5. The reference r laxmi was not used to int erpret this result as normal/abnormal . [facility] AustinOksbneuGPKFNNSELH7703-61-58 20:42:00 Test Item Value Reference Range Interpretation Comments Monocytes # (test code 0.7 See_Comment [Aut omated message] The = Monocytes #) system which generated this result tra nsmitted reference range : <=0.8. The reference r laxmi was not used to int erpret this result as normal/abnormal . [facility] AustinHbgeiclHGWILWMMYE5906-94-61 20:42:00 Test Item Value Reference Range Interpretation Comments Lymphocytes (test code = Lymphocytes) 23.5 20.0-40.0 [facility] AustinAibajhbOMMSMZSRIA7769-43-04 20:42:00 Test Item Value Reference Range Interpretation Comments Eosinophils (test code = 2.2 See_Comment [A utomated message] The Eosinophils) system which ge nerated this result tra nsmitted reference range : <=4.0. The reference r laxmi was not used to int erpret this result as normal/abnormal . [facility] AustinPseieorGDTHPRMNCN2791-55-03 20:42:00 Test Item Value Reference Range Interpretation Comments Segs (test code = Segs) 66.2 45.0-75.0 [facility] AustinZklhftbNKZDPJSDBC4499-04-70 20:42:00 Test Item Value Reference Range Interpretation Comments Basophils (test code = 0.5 See_Comment [Aut omated message] The Basophils) system which ge nerated this result tra nsmitted reference range : <=1.0. The reference r laxmi was not used to int erpret this result as normal/abnormal . [facility] AustinJcelekfNMMERXPPXA1931-38-38 20:42:00 Test Item Value Reference Range Interpretation Comments Monocytes (test code = Monocytes) 7.6 2.0-12.0 [facility] AustinSvavpykIIAWZHKVMR2426-70-88 20:42:00 Test Item Value Reference Range Interpretation Comments Lymphocytes # (test code = Lymphocytes 2.1 1.0-5.5 #) [facility] AustinXkthwduCKTGBPEVCI2452-56-87 20:42:00 Test Item Value Reference Range Interpretation Comments Neutrophils # (test code = Neutrophils 5.9 1.5-8.1 #) [facility] AustinTxjqydsLZWBWJEGHH3153-92-15 20:42:00 Test Item Value Reference Range Interpretation Comments MPV (test code = MPV) 10.1 7.4-10.4 [facility] AustinIhedxroWJNMCVAZEO0417-52-35 20:42:00 Test Item Value Reference Range Interpretation Comments MCHC (test code = MCHC) 32.9 32.0-36.0 [facility] AustinHpchbvxQDNGNPLYHO7321-03-73 20:42:00 Test Item Value Reference Range Interpretation Comments RDW (test code = RDW) 13.3 11.5-14.5 [facility] AustinCvapdbnOMWVRTHMSU3235-20-26 20:42:00 Test Item Value Reference Range Interpretation Comments Platelet (test code = Platelet) 257 133-450 [facility] AustinIveayfkDFCOJVPYKQ6281-83-15 20:42:00 Test Item Value Reference Range Interpretation Comments WBC (test code = WBC) 8.9 3.7-10.4 [facility] AustinZekxhhiJXLCZVDEUC4063-18-04 20:42:00 Test Item Value Reference Range Interpretation Comments MCH (test code = MCH) 30.4 pg 27.0-31.0 [facility] AustinDzmvkubIESBWEICIL2054-40-41 20:42:00 Test Item Value Reference Range Interpretation Comments RBC (test code = RBC) 4.81 4.20-5.40 [facility] AustinOrncjjwNREHYSKKFK8589-32-85 20:42:00 Test Item Value Reference Range Interpretation Comments Hgb (test code = Hgb) 14.6 12.0-16.0 [facility] AustinQejnxlsQJSDTXHZEO0032-78-22 20:42:00 Test Item Value Reference Range Interpretation Comments Hct (test code = Hct) 44.4 36.0-48.0 [facility] AustinBzkbxnxQALRXJLTKC1242-93-14 20:42:00 Test Item Value Reference Range Interpretation Comments MCV (test code = MCV) 92.4 80.0-98.0 [facility] XR L-SPINE 2/3 KCGRK6681-68-51 16:03:00 FAX: Millicent Valencia [phone] Seth: St: PRE FAX: Tierra Shepard MD [phone] Name: DANIA JANE [facility] : 1970 Age/S: 47/F [address] [place] [address] Unit #: [id number] Loc: [place] [address] Phys: Millicent Valencia Acct: [id number] Dis Date: Status: PRE ER PHONE #: [phone] Exam Date: 06/04/2018 1526 FAX #: [phone] Reason: fall -hit back on step EXAMS: CPT CODE: [id number] XR L-SPINE 2/3 VIEWS 73841 3 RADIOGRAPHIC VIEWS LUMBAR SPINE INDICATION: Fall and back pain. Struck the back. TECHNIQUE: 3 radiographic views lumbar spine COMPARISONS: CT lumbar spine 05/23/2018 FINDINGS: There are metallic leads overlying the upper abdomen.There is a stable retained wire posterior to the left L5-S1 facet joint. There had been a neur ostimulator device which had been removed previously. There [...] hypertrophic degenerative changes of the facets from L4- S1. There is 3 mm degenerative retrolisthesis of [...] 1 Signed Report (CONTINUED) FAX: Millicent Valencia [phone] Seth: St: PRE FAX: Tierra Shepard MD [phone] Name: DANIA JANE [facility] : 1970 Age/S: 47/F [address] [place] [address] Unit #: [id number] Loc: EMERY Alejo [address] Phys: Millicent Valencia Acct: [id number] Dis Date: Status: PRE ER PHONE #: [phone] Exam Date: 06/04/2018 1526 FAX #: [phone] Reason: fall -hit back on step EXAMS: CPT CODE: [id number] XR L-SPINE 2/3 VIEWS 99070 <Continued> at 1603 Reportedand signed by: Ridge Mathews D.O. CC: Millicent Valencia; Tierra Man MD Technologist: ANAYELI PinedoT RT(R); Selina Patton, RT (R) Trnscrd Date/Time/By:06/04/2018 (9095) : By: [email or web address] Orig Print D/T: S: 06/04/2018 (5179) PAGE 2 Signed Report- CT C-SPINE W/O [id number] 15:46:00 Name: DANIA JANE [facility] [place] : 1970 Age/S: 47 / F [address] [place] [address] Unit #: [id number] Loc: Saúl [id number] Phys: Millicent Valencia Acct: [id number] Dis Date: Status: PRE ER PHONE #: [phone] Exam Date: 06/04/2018 1522 FAX #: [phone] Reason: fall -hit back of head on step-on [employer]IX EXAMS: CPTCODE: [id number] CT C-SPINE W/O CONT 37674 STUDY: - CT HEAD/BRAIN W/O CONT, - CT C-SPINE W/O CONT 06/04/2018 3:03 PM Ordering Physician: Millicent Valencia Patient Name: DANIA JANE MR: [id number] : 1970; Age: 47 years y/o Female [...] 1 Signed Report (CONTINUED) Name: DANIA JANE [facility] [place] : 1970 Age/S: 47 / F [address] [place] [address] Unit #: [id number] Loc: [place] [address] Phys: Millicent Valencia Acct: [id number] Dis Date: Status: PRE ER PHONE #: [phone] Exam Date: 06/04/2018 1522 FAX #: [phone] Reason: fall -hit back of head on step-on [place]IX EXAMS: CPT CODE: [id number] C-SPINE W/O CONT 33043 <Continued> EXAM: CT CERVICAL SPINE WITHOUT CONTRAST [...] again seen. IMPRESSION: No acute abnormality. SL: [id number] at 1546 Reported and signed by: Natasha Connolly D.O. CC: Millicent Man MD Technologist:Elizabeth Rea, RT(R) CTDI: DLP: Trnscb Date/Time: 06/04/2018 (1041) t.[email or web address].[email or web address] Orig Print D/T: S: 06/04/2018 (0012) CTDI: DLP: PAGE 2 Signed Report- CT HEAD/BRAIN W/O [id number] 15:46:00 Name: DANIA JANE [facility] Jose Farmer : 1970 Age/S: 47 / F [address] [place] [address] Unit #: [id number] Loc: Saúl [id number] Phys: Millicent Valencia Acct: [id number] Dis Date: Status: PRE ER PHONE #: [phone] Exam Date: 06/04/2018 1522 FAX #: [phone] Reason: fall -hit back of head on step-on [place] EXAMS: CPTCODE: [id number] CT HEAD/BRAIN W/O CONT 98793 STUDY: - CT HEAD/BRAIN W/O CONT, - CT C-SPINE W/O CONT 06/04/2018 3:03 PM Ordering Physician: Millicent Valencia Patient Name: DANIA JANE MR: [id number] : 1970; Age: 47 years y/o Female [...] 1 Signed Report (CONTINUED) Name: [facility] : 1970 Age/S: 47 / F [address] [place] [address] Unit #: [id number] Loc: EMERY [place] [address] Phys: Millicent Valencia Acct: [id number] Dis Date: Status: PRE ER PHONE #: [phone] Exam Date: 06/04/2018 1522 FAX #: [phone] Reason: fall -hit back of head on step-on [employer]IX EXAMS: CPT CODE: [id number] HEAD/BRAIN W/O CONT 04061 <Continued> EXAM: CT CERVICAL SPINE WITHOUT CONTRAST [...] again seen. IMPRESSION: No acute abnormality. SL: [id number] at 1546 Reported and signed by: Natasha Connolly D.O. CC: Millicent Man MD Technologist:Elizabeth Rea RT(R) CTDI: DLP: Trnscb Date/Time: 06/04/2018 (1546) [email or web address] Orig Print D/T: S: 06/04/2018 (1550) CTDI: DLP: PAGE 2 Signed [id number] 16:10:00 Test Item Value Reference Range Interpretation Comments GLUBED (test code = 319 MG/DL 70-110 H Performe d by certified GLUBED) 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 [facility] BASIC METABOLIC [id number] 13:55:00 Test Item Value Reference Range Interpretation Comments SODIUM (test code = NA) 135 mEq/L 134-147 N POTASSIUM (test code = 4.2 mEq/L 3.4-5.0 N K) CHLORIDE (test code = 99 mEq/L 100-108 L CL) CARBON DIOXIDE (test 28 mEq/L 21-33 N code = CO2) ANION GAP (test code = 12 0-20 N GAP) GLUCOSE (test code = 395 mg/dL 70-110 H GLU) BLOOD UREA NITROGEN 12 mg/dL 7-18 N (test code = BUN) GLOMERULAR FILTRATION 92.2 95-105 L Units of measure = RATE (test code = GFR) ml/mi n/1.73 m2 CREATININE (test code = 0.8 mg/dL 0.6-1.3 N CREAT) CALCIUM (test code = 8.1 mg/dL 8.0-10.5 N CA) [id number] 13:55:00 Test Item Value Reference Range Interpretation Comments ALCOHOL (test code < 0.003 G/dL <0.003 Ethyl Alc ohol = ALC) Interpretation: 0.100 gm/dL - Legally Intoxic ated 0.300-0.40 0 gm/dL - Severely Into xicated >0.400 gm/dL - Potentially LethalResults a re for Medical purpose s only, and not for Leg al orEmployment ev aluation purposes. PROTHROMBIN [id number] 13:48:00 Test Item Value Reference Range Interpretation Comments PROTHROMBIN TIME 11.0 SECONDS 9.3-12.9 N PATIENT (test code = PTP) INTERNATIONAL NORMAL 1.0 0.8-1.2 N TARGET RATIO (test code = INR BY IN DICATION INR) Indication INR1. Prophyl axis of venous thrombos is 2.0 - 3. 0 (orthopedic doris ana), Prophylaxis of venous thrombos is (other than hig h-risk surgery), Kya tment of Deep Vein Thrombosis/Pulm onary Embolism, Preve ntion of systemic emb olism - Tissue heart va lves, Acute Myocardia l Infarction (to prevent systemic embo lism), Valvular heart disease, Atri al Fibrillation, Bileaflet mecha nical valve in aortic position.2. Mec hanical prosthetic valv es (high risk), 2.5 - 3.5 Presence of Lupus Anticoagu lant or Antiphospholi pid Antibodies, Pre vention of systemic e mbolism - Acute Myocard ial Infarction (t o prevent recurre nt infarct). THROMBOPLASTIN TIME [id number] 13:48:00 Test Item Value Reference Range Interpretation Comments THROMBOPLASTIN TIME 25.5 Seconds 25.0-39.5 N Ther apeutic PARTIAL (test code = Range: 61.8-83.8 PTT) Sec Effective 05/22/2013 CBC W/AUTO [id number] 13:36:00 Test Item Value Reference Range Interpretation Comments WHITE BLOOD CELL (test code = 6.51 x10 3/uL 4.5-11.0 WBC) RED BLOOD CELL (test code = 4.25 x10 6/uL 3.54-5.02 N RBC) HEMOGLOBIN (test code = HGB) 13.5 g/dL 11.0-15.0 N HEMATOCRIT (test code = HCT) 39.4 % 33.0-45.0 N MEAN CELL VOLUME (test code = 92.7 fL 81.0-99.0 N MCV) MEAN CELL HGB (test code = MCH) 31.8 pg 27.0-33.0 N MEAN CELL HGB CONCETRATION 34.3 g/dL 33.0-37.0 N (test code = MCHC) RED CELL DISTRIBUTION WIDTH CV 12.9 % 11.5-14.5 N (test code = RDW) RED CELL DISTRIBUTION WIDTH SD 43.7 fL 37.0-54.0 N (test code = RDW-SD) PLATELET COUNT (test code = 290 x10 3/uL 150-400 N PLT) MEAN PLATELET VOLUME (test code 11.3 fL 7.0-9.0 H = MPV) NEUTROPHIL % (test code = NT%) 60.0 % 56.0-77.0 N IMMATURE GRANULOCYTE % (test 0.2 % 0.0-2.0 N code = IG%) LYMPHOCYTE % (test code = LY%) 28.6 % 14.0-32.0 N MONOCYTE % (test code = MO%) 7.7 % 4.8-9.0 N EOSINOPHIL % (test code = EO%) 2.6 % 0.3-3.7 N BASOPHIL % (test code = BA%) 0.9 % 0.0-2.0 N NUCLEATED RBC % (test code = 0.0 % 0-0 N NRBC%) NEUTROPHIL # (test code = NT#) 3.91 x10 3/uL 2.0-7.6 N IMMATURE GRANULOCYTE # (test 0.01 x10 3/uL 0.00-0.03 N code = IG#) LYMPHOCYTE # (test code = LY#) 1.86 x10 3/uL 1.0-3.8 N MONOCYTE # (test code = MO#) 0.50 x10 3/uL 0.1-0.8 N EOSINOPHIL # (test code = EO#) 0.17 x10 3/uL 0.0-0.2 N BASOPHIL # (test code = BA#) 0.06 x10 3/uL 0.0-0.2 N NUCLEATED RBC # (test code = 0.00 x10 3/uL 0.0-0.1 N NRBC#) MANUAL DIFF REQUIRED (test code NO = MDIFF) - CT L-SPINE W/O [id number] 12:21:00 Name: DANIA JANE [facility] : 1970 Age/S: 47 / F [address] [place] [address] Unit #: [id number] Loc: [id number] Phys: Everardo Jesus Acct: [id number] Dis Date: Status: REG ER PHONE #: [phone] Exam Date: 05/23/2018 1143 FAX #: [phone] Reason: fall with occipital head strike, lower back kirti EXAMS: CPTCODE: [id number] CT L-SPINE W/O CONTRAST 13642 EXAM: CT lumbar SPINE WITHOUT CONTRAST DATE: [...] segment of wire adjacent to the left L5- S1 facet joint. Probable healed prior L5 laminotomy with severe facet arthropathy again seen. No inflammatory fat stranding. Severe facet disease bilaterally at L4-5 and L5-S1 levels with adjacent bony hypert rophy. IMPRESSION: 1. Prior noted multilevel broad-based posterior disc bulges are again grossly seen, however evaluation is limited due to lack of intrathecal contrast. 2. Interval removal of the lower lumbar stimulator device is seen with retained short segment of wire adjacent to the left L5-S1 facet joint. 3. Severe facet disease bilaterally at L4-5 and L5-S1 levels with adjacent bony hypertrophy. SL: [id number] PAGE 1 Signed Report (CONTINUED) Name: DANIA JANE [facility] : 1970 Age/S: 47 / F [address] [place] [address] Unit #: [id number] Loc: [place] [address] Phys: Everardo Jesus Acct: [id number] Dis Date: Status: REG ER PHONE #: [phone] Exam Date: 05/23/2018 1143 FAX #: [phone] Reason: fall with occipital head strike, lower back kirti EXAMS: CPT CODE: [id number] CT L-SPINE W/O CONTRAST 44205 <Continued> at 1221 Reported and signed by: Natasha Connolly D.O. CC: Everardo BLACKWOOD; Tierra Man MD Technolog ist:Andry Omalley, RT(R) CTDI: DLP: Trnscb Date/Time: 05/23/2018 (1221) [place].[email or web address] Orig Print D/T: S: 05/23/2018 (0244) CTDI: DLP:PAGE 2 Signed Report- CT HEAD/BRAIN W/O [id number] 12:03:00 Name: DANIA JANE [facility] : 1970 Age/S: 47 / F [address] [place] [address] Unit #: [id number] Loc: [place] Phys: Everardo Jesus Acct: [id number] Dis Date: Status: PRE ER PHONE #: [phone] Exam Date: 05/23/2018 1143 FAX #: [phone] Reason: fall with occipital head strike EXAMS: CPTCODE: [id number] CT HEAD/BRAIN W/O CONT 32033 STUDY: - CT HEAD/BRAIN W/O CONT 05/23/2018 10:52 AM Ordering Physician: JAISON Singleton Patient Name: DANIA JANE MR: [id number] : 1970; Age: 47 years y/o Female Clinical Indication: fall with occipital head strike Comparison: April 20, 2018 TECHNIQUE: Multiple contiguous transaxial noncontrast CT images were obtained through the head. Coronal and sagittal reformatted images were prepared. DOSE:CT imaging performed at this location utilizes radiation dose optimization technique which incl udes one or more of the followin) Automated [...] MRIof the brain should be considered. SL: [id number] PAGE 1 Signed Report (CONTINUED) Name: DANIA JANE [facility] : 1970 Age/S: 47 / F [address] [place] [address] Unit #: [id number] Loc: [place] [address] Phys: Everardo Jesus Acct: [id number] Dis Date: Status: PRE ER PHONE #: [phone] Exam Date: 05/23/2018 1143 FAX #: [phone] Reason: fall with occipital head strike EXAMS: CPT CODE: [id number] CT HEAD/BRAIN W/O CONT 36473 <Continued> ElectronicallySigned by [place] Connolly on 05/23/2018 at 1203 Reported and signed by: Natasha Connolly D.O. CC:Everardo BLACKWOOD; Tierra Man MD Technologist:Andry Omalley, RT(R) CTDI: DLP: Trnscb Date/Time: 05/23/2018 (5078) [email or web address] Orig Print D/T: S: 05/23/2018 (4843) CTDI: DLP: PAGE 2 Signed Report- XR PELVIS 1/2 [id number] 11:38:00 FAX: Everardo Jesus [phone] Seth: St: PRE FAX: Tierra Shepard MD [phone] Name: SEBASTIANDANIA [facility] : 1970 Age/S: 47/F [address] [place] [address] Unit #: [id number] Loc: [place] [address] Phys: Everardo Jesus Acct: G [id number] Dis Date: Status: PRE ER PHONE #: [phone] Exam Date: 05/23/2018 1121 FAX #: [phone] Reason: trauma,with lower extremity radiculopathy EXAMS: CPT CODE: [id number] XR PELVIS 1/2 VIEWS 03645 Study: - XR PELVIS 1/2 VIEWS 05/23/2018 10:54 AM Patient Name: DANIA JANE MR: [id number] DATE: 05/23/2018 10:54 AM : 1970; Age: 47 years y/o Female Ordering Physician: JAISON Singleton Clinical Indication: trauma, with lower extremity radiculopathy Comparison: CT July 03, 2016 Pelvic, 1 View: Pelvic ring is grossly intact. Lower lumbar spine degenerative disease is partially seen. If there is further concern, recommend follow-up radiographs or CT for complete assessment. SL: [id number] at 1138 Reported and signed by: Natasha Connolly D.O. CC: Everardo BLACKWOOD; Tierra Man MD Technologist: RT Genaro(R) Trnscrd Date/Time/By: 05/23/2018 (9673) :By: [email or web address] Orig Print D/T: S: 05/23/2018 (9429) PAGE 1 Signed Report- XR CHEST 1 [id number] 11:30:00 FAX: Everardo Jesus [phone] Seth: St: PRE FAX: Tierra Shepard MD [phone] Name: DANIA JANE [facility] : 1970 Age/S: 47/F [address] [place] [address] Unit #: [id number] Loc: [place] [address] Phys: Everardo Jesus Acct: G [id number] Dis Date: Status: PRE ER PHONE #: [phone] Exam Date: 05/23/2018 1121 FAX #: [phone] Reason: fall, upper back pain EXAMS: CPT CODE: [id number] XR CHEST 1 V 02498 EXAM: Single view portable AP chest. EXAM DATE: 05/23/2018 at 1117 hours CLINICAL HISTORY: Fall, upper back pain COMPARISON: April 18, 2018 Cardiomediastinal silhouette is within normal limits. The lungs appear free of acute disease.There is mild nonspecific elevation of the right hemidiaphragm. Osseous structures demonstratepostsurgical changes in the cervical spine. IMPRESSION: No evidence of acute cardiopulmonary disease. at 1130 Reported and signed by: Yamini Jiménez M.D. CC: Everardo BLACKWOOD; Tierra Man MD Technologist: Merry Triana RT(R) Trnscrd Date/Time/By: 05/23/2018 (9075) : By: ChelyCER Orig Print D/T: S: 05/23/2018 (7940) PAGE 1 Signed Report CARDIAC [id number] 20:34:00 Test Item Value Reference Range Interpretation Comments Troponin-I (test code no gt See_Comment [Auto mated message] The = Troponin-I) system which g enerated this result transmit irma reference range : <=0.40. The reference r laxim was not used to interpr et this result as gabi l/abnormal. [facility] AannCARDIAC [id number] 20:34:00 Test Item Value Reference Range Interpretation Comments BNP (test code = BNP) 102 [facility] [id number] 20:34:00 Test Item Value Reference Range Interpretation Comments Total CK (test code = Total CK) 203 12-191 [facility] [employer] [id number] 20:34:00 Test Item Value Reference Range Interpretation Comments BUN (test code = BUN) 9 7-22 [facility] AannCHEM [id number] 20:34:00 Test Item Value Reference Range Interpretation Comments Total Protein (test code = Total 6.6 6.4-8.4 Protein) [facility] [employer] [id number] 20:34:00 Test Item Value Reference Range Interpretation Comments B/C Ratio (test code = B/C Ratio) 12 1 6-25 [facility] [employer] [id number] 20:34:00 Test Item Value Reference Range Interpretation Comments Albumin Lvl (test code = Albumin Lvl) 3.4 3.5-5.0 [facility]2019-01-23 20:34:00 Test Item Value Reference Range Interpretation Comments Calcium Lvl (test code = Calcium Lvl) 7.8 8.5-10.5 [facility]2019-01-23 20:34:00 Test Item Value Reference Range Interpretation Comments Globulin (test code = Globulin) 3.2 2.7-4.2 [facility]2019-01-23 20:34:00 Test Item Value Reference Range Interpretation Comments ALT (test code = ALT) 37 See_Comment [Auto mated message] The system which ge nerated this result transmit irma reference range : <=65. The reference range was not used to interpr et this result as gabi l/abnormal. [facility]2019-01-23 20:34:00 Test Item Value Reference Range Interpretation Comments A/G Ratio (test code = A/G Ratio) 1.1 1 0.7-1.6 [facility]2019-01-23 20:34:00 Test Item Value Reference Range Interpretation Comments AST (test code = AST) 41 See_Comment [Auto mated message] The system which ge nerated this result transmit irma reference range : <=37. The reference range was not used to interpr et this result as gabi l/abnormal. [facility]2019-01-23 20:34:00 Test Item Value Reference Range Interpretation Comments Bili Total (test code = Bili <0.1 mg/dL 0.2-1.3 Total) [facility]2019-01-23 20:34:00 Test Item Value Reference Range Interpretation Comments Alk Phos (test code = Alk Phos) 119 39-136 [facility]2019-01-23 20:34:00 Test Item Value Reference Range Interpretation Comments eGFR (test code = eGFR) 91 [facility]2019-01-23 20:34:00 Test Item Value Reference Range Interpretation Comments AGAP (test code = AGAP) 10.1 10.0-20.0 [facility]2019-01-23 20:34:00 Test Item Value Reference Range Interpretation Comments CO2 (test code = CO2) 29 24-32 [facility]2019-01-23 20:34:00 Test Item Value Reference Range Interpretation Comments Chloride Lvl (test code = Chloride Lvl) 104 95-109 [facility]2019-01-23 20:34:00 Test Item Value Reference Range Interpretation Comments Creatinine Lvl (test code = Creatinine 0.77 0.50-1.40 Lvl) [facility]2019-01-23 20:34:00 Test Item Value Reference Range Interpretation Comments Glucose Lvl (test code = Glucose Lvl) 291 70-99 [facility]2019-01-23 20:34:00 Test Item Value Reference Range Interpretation Comments Potassium Lvl (test code = Potassium 4.1 3.5-5.1 Lvl) [facility]2019-01-23 20:34:00 Test Item Value Reference Range Interpretation Comments Sodium Lvl (test code = Sodium Lvl) 139 135-145 [place] 66275019-01-23 20:34:00 Test Item Value Reference Range Interpretation Comments S Preg (test code = S Negative *NA*(05/16/18 Preg) 2:34 PM) [facility]QcyighzDCCCPRVUIR7447-64-97 20:34:00 Test Item Value Reference Range Interpretation Comments MCV (test code = MCV) 90.5 80.0-98.0 [facility] AustinCadaycfSVXJPYWHNR3736-31-14 20:34:00 Test Item Value Reference Range Interpretation Comments MCHC (test code = MCHC) 39.8 32.0-36.0 [facility] AustinRzqcktvBPNHGZNRIK2422-73-56 20:34:00 Test Item Value Reference Range Interpretation Comments MCH (test code = MCH) 36.0 pg 27.0-31.0 [facility] AustinVvlddrnLBRRMSZFWG7115-64-75 20:34:00 Test Item Value Reference Range Interpretation Comments RDW (test code = RDW) 13.5 11.5-14.5 [facility] AustinReubdffOIJCGMYPPB4225-11-06 20:34:00 Test Item Value Reference Range Interpretation Comments Platelet (test code = Platelet) 287 380-450 [facility] AustinIudclcdWMRSBBWOZM9931-40-78 20:34:00 Test Item Value Reference Range Interpretation Comments WBC (test code = WBC) 7.6 3.7-10.4 [facility] AustinGmpsctbNBSKPLLVCI7230-29-57 20:34:00 Test Item Value Reference Range Interpretation Comments RBC (test code = RBC) 3.88 4.20-5.40 [facility] AustinPsukzkiXHZWUCTKCI9941-72-28 20:34:00 Test Item Value Reference Range Interpretation Comments Hgb (test code = Hgb) 13.9 12.0-16.0 [facility] AustinJpfkloaRYZYVLRIKE5978-40-18 20:34:00 Test Item Value Reference Range Interpretation Comments Hct (test code = Hct) 35.1 36.0-48.0 [facility] AustinDmhtahpKNCMUDNWGA4147-83-23 20:34:00 Test Item Value Reference Range Interpretation Comments MPV (test code = MPV) 9.7 7.4-10.4 [place] 064159-01-23 20:34:00 Test Item Value Reference Range Interpretation Comments Lymphocytes # (test code = Lymphocytes 2.6 1.0-5.5 #) [facility] AustinJrhgkhxVPAMKCZBMY7994-50-62 20:34:00 Test Item Value Reference Range Interpretation Comments Basophils # (test code 0.1 See_Comment [Aut omated message] The = Basophils #) system which generated this result tra nsmitted reference range : <=0.2. The reference r laxmi was not used to int erpret this result as normal/abnormal . [facility] AustinCylymgiIRCZGJZDVS3740-51-08 20:34:00 Test Item Value Reference Range Interpretation Comments Eosinophils # (test code 0.3 See_Comment [A utomated message] The = Eosinophils #) system whic h generated this result tra nsmitted reference range : <=0.5. The reference r laxmi was not used to int erpret this result as normal/abnormal . [facility] AustinKmljirvBHYYZNEHMB8387-49-09 20:34:00 Test Item Value Reference Range Interpretation Comments Monocytes # (test code 0.5 See_Comment [Aut omated message] The = Monocytes #) system which generated this result tra nsmitted reference range : <=0.8. The reference r laxmi was not used to int erpret this result as normal/abnormal . [facility] AustinUbvgcfaYMQVNGJDCY7912-02-45 20:34:00 Test Item Value Reference Range Interpretation Comments Neutrophils # (test code = Neutrophils 4.2 1.5-8.1 #) [facility] AustinPbzvkkmMLYRAPYSMP8742-62-16 20:34:00 Test Item Value Reference Range Interpretation Comments Eosinophils (test code = 3.3 See_Comment [A utomated message] The Eosinophils) system which ge nerated this result tra nsmitted reference range : <=4.0. The reference r laxmi was not used to int erpret this result as normal/abnormal . [facility] AustinWciuzkqCQQYDNIGQS7762-72-13 20:34:00 Test Item Value Reference Range Interpretation Comments Monocytes (test code = Monocytes) 6.2 2.0-12.0 [facility] AustinQjzewudPMQWINYDXT2128-24-57 20:34:00 Test Item Value Reference Range Interpretation Comments Basophils (test code = 1.2 See_Comment [Aut omated message] The Basophils) system which ge nerated this result tra nsmitted reference range : <=1.0. The reference r laxmi was not used to int erpret this result as normal/abnormal . [facility] AustinNjrqygtDGYGUTJGAB8461-94-74 20:34:00 Test Item Value Reference Range Interpretation Comments Lymphocytes (test code = Lymphocytes) 34.3 20.0-40.0 [facility] AustinNcausweJXRRKRRWSQ8022-42-87 20:34:00 Test Item Value Reference Range Interpretation Comments Segs (test code = Segs) 55.0 45.0-75.0 [facility] AustinXcvmtvcIGYGKWLXYJ1647-01-06 20:34:00 Test Item Value Reference Range Interpretation Comments RBC Morph (test code = Normal (05/16/18 2:34 RBC Morph) PM) [facility] AustinRbclnsjDWNPTRNKJN8220-08-04 20:34:00 Test Item Value Reference Range Interpretation Comments Plt Morph (test code = Normal (05/16/18 2:34 Plt Morph) PM) [facility] AND [id number] 05:22:44 Test Item Value Reference Range Interpretation Comments UA Sq Epi (test code = UA Sq Occasional /LPF Epi) [facility] AND [id number] 05:22:44 Test Item Value Reference Range Interpretation Comments UA Leuk Est (test Negative (03/31/18 11:22 code = UA Leuk Est) PM) [facility] AND [id number] 05:22:44 Test Item Value Reference Range Interpretation Comments UA Nitrite (test code Negative (03/31/18 11:22 = UA Nitrite) PM) [facility] AND [id number] 05:22:44 Test Item Value Reference Range Interpretation Comments UA WBC (test code = no gt See_Comment [Automa irma message] The UA WBC) system which ge nerated this result transmit irma reference range : <=5. The reference range was not used to interpr et this result as gabi l/abnormal. [facility] AND [id number] 05:22:44 Test Item Value Reference Range Interpretation Comments UA Bili (test code = Negative *NA*(03/31/18 UA Bili) 11:22 PM) [facility] AND [id number] 05:22:44 Test Item Value Reference Range Interpretation Comments UA Ketones (test code Negative *NA*(03/31/18 = UA Ketones) 11:22 PM) [facility] AND HEJRL0752-22-70 05:22:44 Test Item Value Reference Range Interpretation Comments UA Urobilinogen (test code = UA <=1.0 mg/dL 0.1-1.0 Urobilinogen) [facility] AND [id number] 05:22:44 Test Item Value Reference Range Interpretation Comments UA Blood (test code = Negative (03/31/18 11:22 UA Blood) PM) [facility] AND [id number] 05:22:44 Test Item Value Reference Range Interpretation Comments UA pH (test code = UA pH) 6.0 1 5.0-8.0 [facility] AND [id number] 05:22:44 Test Item Value Reference Range Interpretation Comments UA Spec Grav (test code = UA Spec 1.025 1 Grav) [facility] AND [id number] 05:22:44 Test Item Value Reference Range Interpretation Comments UA Glucose (test code = UA Glucose) 500 mg/dL [facility] AND [id number] 05:22:44 Test Item Value Reference Range Interpretation Comments UA Protein (test code Negative (03/31/18 11:22 = UA Protein) PM) [facility] AND [id number] 05:22:44 Test Item Value Reference Range Interpretation Comments UA Turbidity (test code = Clear (03/31/18 11:22 UA Turbidity) PM) [facility] AND [id number] 05:22:44 Test Item Value Reference Range Interpretation Comments UA Color (test code = UA Color) Ltyellow [facility]lineCARDIWALTER P. REUTHER PSYCHIATRIC HOSPITALOTQDHNF9595-80-74 04:13:00 Test Item Value Reference Range Interpretation Comments Troponin-I (test code no gt See_Comment [Auto mated message] The = Troponin-I) system which g enerated this result transmit irma reference range : <=0.40. The reference r laxmi was not used to interpr et this result as gabi l/abnormal. [facility]XwosiuaVXVKWSFDQDCK3163-25-43 04:13:00 Test Item Value Reference Range Interpretation Comments Chloride Lvl (test code = Chloride Lvl) 98 95-109 [facility] HospitalLjtdofkHMIBMLZFAXME3170-18-48 04:13:00 Test Item Value Reference Range Interpretation Comments AGAP (test code = AGAP) 13.9 10.0-20.0 [facility] HospitalPqjbisdWBXSKMMSORXT9692-70-25 04:13:00 Test Item Value Reference Range Interpretation Comments CO2 (test code = CO2) 24 24-32 [facility] HospitalQltwoysDHETELWUQPBQ9432-63-63 04:13:00 Test Item Value Reference Range Interpretation Comments Globulin (test code = Globulin) 4.0 2.7-4.2 [facility] HospitalPkjqmsxALAJFCKQYGHD2100-12-51 04:13:00 Test Item Value Reference Range Interpretation Comments Albumin Lvl (test code = Albumin Lvl) 3.1 3.5-5.0 [facility] HospitalIvvmmqzYAOVOQHWUTQU7377-16-29 04:13:00 Test Item Value Reference Range Interpretation Comments A/G Ratio (test code = A/G Ratio) 0.8 1 0.7-1.6 [facility] HospitalSnknptvDZFPBZLVKTGJ5279-03-90 04:13:00 Test Item Value Reference Range Interpretation Comments Alk Phos (test code = Alk Phos) 127 39-136 [facility] HospitalVjiovmvHIWFOWQZHPTK1004-40-54 04:13:00 Test Item Value Reference Range Interpretation Comments AST (test code = AST) 13 See_Comment [Auto mated message] The system which ge nerated this result transmit irma reference range : <=37. The reference range was not used to interpr et this result as gabi l/abnormal. [facility] HospitalClqrcswVNRWEYAANZJZ5960-18-97 04:13:00 Test Item Value Reference Range Interpretation Comments Bili Total (test code = Bili Total) 0.1 0.2-1.3 [facility] HospitalGksdqahXJKEXTSDJSWX4119-35-91 04:13:00 Test Item Value Reference Range Interpretation Comments ALT (test code = ALT) 29 See_Comment [Auto mated message] The system which ge nerated this result transmit irma reference range : <=65. The reference range was not used to interpr et this result as gabi l/abnormal. [facility]IojqkauKASNINSWMMLK9318-84-73 04:13:00 Test Item Value Reference Range Interpretation Comments Calcium Lvl (test code = Calcium Lvl) 8.4 8.5-10.5 [facility]QwheguhUTVYWITFVFMT9366-99-93 04:13:00 Test Item Value Reference Range Interpretation Comments Total Protein (test code = Total 7.1 6.4-8.4 Protein) [facility] HospitalPizcnyrZGXNAUXSQZLA3074-78-03 04:13:00 Test Item Value Reference Range Interpretation Comments B/C Ratio (test code = B/C Ratio) 10 1 6-25 [facility] HospitalLpzsizgZIYHVHTGYKLH5292-19-27 04:13:00 Test Item Value Reference Range Interpretation Comments eGFR (test code = eGFR) 57 [facility] HospitalEpmsrnfLQNTTUUSIZSU0168-47-54 04:13:00 Test Item Value Reference Range Interpretation Comments Potassium Lvl (test code = Potassium 3.9 3.5-5.1 Lvl) [facility] HospitalExkkhvoKUKOUEQFUMLK0170-54-42 04:13:00 Test Item Value Reference Range Interpretation Comments Sodium Lvl (test code = Sodium Lvl) 132 135-145 [facility] HospitalOizrbgtLZUXWXCVZLEV1866-80-60 04:13:00 Test Item Value Reference Range Interpretation Comments Creatinine Lvl (test code = Creatinine 1.13 0.50-1.40 Lvl) [facility] HospitalUcgyvnaCOMYDZFWONFN5574-52-19 04:13:00 Test Item Value Reference Range Interpretation Comments BUN (test code = BUN) 11 7-22 [facility] HospitalAleeffrLGUTPLIRFDMY1195-79-46 04:13:00 Test Item Value Reference Range Interpretation Comments Glucose Lvl (test code = Glucose Lvl) 526 70-99 [facility]JhdnyqpEGZIXBRHIS5412-31-18 04:13:00 Test Item Value Reference Range Interpretation Comments Monocytes (test code = Monocytes) 8.2 2.0-12.0 [facility] AustinGjuhpejXIRZGGXNXY2400-83-05 04:13:00 Test Item Value Reference Range Interpretation Comments Lymphocytes (test code = Lymphocytes) 27.6 20.0-40.0 [facility] AustinOageoijTRLCTATSGQ6037-56-69 04:13:00 Test Item Value Reference Range Interpretation Comments Eosinophils (test code = 3.6 See_Comment [A utomated message] The Eosinophils) system which ge nerated this result tra nsmitted reference range : <=4.0. The reference r laxmi was not used to int erpret this result as normal/abnormal . [facility] AustinOqvvkxwEIUIBYCVAK0860-57-52 04:13:00 Test Item Value Reference Range Interpretation Comments Basophils (test code = 0.8 See_Comment [Aut omated message] The Basophils) system which ge nerated this result tra nsmitted reference range : <=1.0. The reference r laxmi was not used to int erpret this result as normal/abnormal . [facility] AustinCxhkuzaZYTVNOAZYV0724-27-31 04:13:00 Test Item Value Reference Range Interpretation Comments Segs (test code = Segs) 59.8 45.0-75.0 [facility] AustinSeifnfvBZULXVPDYT5612-61-82 04:13:00 Test Item Value Reference Range Interpretation Comments Lymphocytes # (test code = Lymphocytes 2.1 1.0-5.5 #) [facility] AustinQoqetacZSCWBOTFHM4168-70-08 04:13:00 Test Item Value Reference Range Interpretation Comments Monocytes # (test code 0.6 See_Comment [Aut omated message] The = Monocytes #) system which generated this result tra nsmitted reference range : <=0.8. The reference r laxmi was not used to int erpret this result as normal/abnormal . [facility] AustinPeoyxwjFMVWXEFCVS3812-22-64 04:13:00 Test Item Value Reference Range Interpretation Comments Basophils # (test code 0.1 See_Comment [Aut omated message] The = Basophils #) system which generated this result tra nsmitted reference range : <=0.2. The reference r laxmi was not used to int erpret this result as normal/abnormal . [facility] AustinGqvrbiaUYKGCCNSVQ8304-61-39 04:13:00 Test Item Value Reference Range Interpretation Comments Neutrophils # (test code = Neutrophils 4.5 1.5-8.1 #) [facility] AustinPmuygjzLOKYRFIIOE9892-12-35 04:13:00 Test Item Value Reference Range Interpretation Comments Eosinophils # (test code 0.3 See_Comment [A utomated message] The = Eosinophils #) system whic h generated this result tra nsmitted reference range : <=0.5. The reference r laxmi was not used to int erpret this result as normal/abnormal . [facility] AustinObtrkryWZVPNXSZFR9878-91-18 04:13:00 Test Item Value Reference Range Interpretation Comments RDW (test code = RDW) 14.3 11.5-14.5 [facility] AustinZdocqufZSNRYCEAZH1560-04-73 04:13:00 Test Item Value Reference Range Interpretation Comments MPV (test code = MPV) 10.0 7.4-10.4 [facility] AustinOrvawvtEXXNWDDLVJ8174-73-72 04:13:00 Test Item Value Reference Range Interpretation Comments Platelet (test code = Platelet) 248 133-450 [facility] AustinNjyygfeZOMTTHSHVX1226-25-11 04:13:00 Test Item Value Reference Range Interpretation Comments MCH (test code = MCH) 30.2 pg 27.0-31.0 [facility] AustinNrtyxkcIRVMFJNXMH0811-50-58 04:13:00 Test Item Value Reference Range Interpretation Comments Hct (test code = Hct) 33.2 36.0-48.0 [facility]EPBHSAZXGH5663-25-83 04:13:00 Test Item Value Reference Range Interpretation Comments RBC (test code = RBC) 3.66 4.20-5.40 [facility] HospitalZxyjrpeGOAZQBBJNO6006-16-06 04:13:00 Test Item Value Reference Range Interpretation Comments Hgb (test code = Hgb) 11.1 12.0-16.0 [facility] AustinUgigndpERKWSVGLIT1448-31-51 04:13:00 Test Item Value Reference Range Interpretation Comments WBC (test code = WBC) 7.5 3.7-10.4 [facility] HospitalMrpxqajBRDVEQAWSN8079-02-46 04:13:00 Test Item Value Reference Range Interpretation Comments MCHC (test code = MCHC) 33.3 32.0-36.0 [facility] HospitalWekxufqLSLHDPRGPY2435-78-61 04:13:00 Test Item Value Reference Range Interpretation Comments MCV (test code = MCV) 90.8 80.0-98.0 [facility] ZRGVORR7794-95-14 02:13:00 Test Item Value Reference Range Interpretation Comments Troponin-I (test code no gt See_Comment [Auto mated message] The = Troponin-I) system which g enerated this result transmit irma reference range : <=0.40. The reference r laxmi was not used to interpr et this result as gabi l/abnormal. [facility]2018-11-27 02:13:00 Test Item Value Reference Range Interpretation Comments eGFR (test code = eGFR) 74 [facility]2018-11-27 02:13:00 Test Item Value Reference Range Interpretation Comments Calcium Lvl (test code = Calcium Lvl) 8.3 8.5-10.5 [facility]2018-11-27 02:13:00 Test Item Value Reference Range Interpretation Comments CO2 (test code = CO2) 26 24-32 [place] 145698-11-27 02:13:00 Test Item Value Reference Range Interpretation Comments Potassium Lvl (test code = Potassium 4.1 3.5-5.1 Lvl) [facility]2018-11-27 02:13:00 Test Item Value Reference Range Interpretation Comments Chloride Lvl (test code = Chloride Lvl) 102 95-109 [facility]2018-11-27 02:13:00 Test Item Value Reference Range Interpretation Comments BUN (test code = BUN) 12 7-22 [place] 145698-11-27 02:13:00 Test Item Value Reference Range Interpretation Comments Creatinine Lvl (test code = Creatinine 1.03 0.50-1.40 Lvl) [facility]2018-11-27 02:13:00 Test Item Value Reference Range Interpretation Comments Sodium Lvl (test code = Sodium Lvl) 140 135-145 [facility]2018-11-27 02:13:00 Test Item Value Reference Range Interpretation Comments Glucose Lvl (test code = Glucose Lvl) 394 70-99 [place] 145698-11-27 02:13:00 Test Item Value Reference Range Interpretation Comments AGAP (test code = AGAP) 16.1 10.0-20.0 [facility] AustinVtpaynnCJHMLLRMYN3760-68-73 02:13:00 Test Item Value Reference Range Interpretation Comments Basophils # (test code 0.1 See_Comment [Aut omated message] The = Basophils #) system which generated this result tra nsmitted reference range : <=0.2. The reference r laxmi was not used to int erpret this result as normal/abnormal . [place] 064158-11-27 02:13:00 Test Item Value Reference Range Interpretation Comments Basophils (test code = 0.7 See_Comment [Aut omated message] The Basophils) system which ge nerated this result tra nsmitted reference range : <=1.0. The reference r laxmi was not used to int erpret this result as normal/abnormal . [facility] AustinGjfjisfUAPYZINMAR5214-87-24 02:13:00 Test Item Value Reference Range Interpretation Comments Eosinophils # (test code 0.2 See_Comment [A utomated message] The = Eosinophils #) system whic h generated this result tra nsmitted reference range : <=0.5. The reference r laxmi was not used to int erpret this result as normal/abnormal . [facility] AustinCbzqazdUNJGUZCZCE0532-92-22 02:13:00 Test Item Value Reference Range Interpretation Comments Lymphocytes (test code = Lymphocytes) 30.3 20.0-40.0 [facility] AustinKsupiwfVWYPPTPLVA8551-25-38 02:13:00 Test Item Value Reference Range Interpretation Comments Monocytes (test code = Monocytes) 7.9 2.0-12.0 [facility] AustinHazjhpfRUYSCRRDBH6587-26-91 02:13:00 Test Item Value Reference Range Interpretation Comments Eosinophils (test code = 2.5 See_Comment [A utomated message] The Eosinophils) system which ge nerated this result tra nsmitted reference range : <=4.0. The reference r laxmi was not used to int erpret this result as normal/abnormal . [facility] AustinOldlanqMZEYWTWEIZ5826-04-38 02:13:00 Test Item Value Reference Range Interpretation Comments Segs (test code = Segs) 58.6 45.0-75.0 [facility] AustinDoeheieIOOUQPUBSM2351-41-15 02:13:00 Test Item Value Reference Range Interpretation Comments Neutrophils # (test code = Neutrophils 5.4 1.5-8.1 #) [facility] AustinOklgbzxNPNSWFBUYT4048-60-56 02:13:00 Test Item Value Reference Range Interpretation Comments Lymphocytes # (test code = Lymphocytes 2.8 1.0-5.5 #) [facility] AustinBbtkoxwTFLQXCXFDW8489-41-64 02:13:00 Test Item Value Reference Range Interpretation Comments Monocytes # (test code 0.7 See_Comment [Aut omated message] The = Monocytes #) system which generated this result tra nsmitted reference range : <=0.8. The reference r laxmi was not used to int erpret this result as normal/abnormal . [facility] AustinHfigkbfNDSFWTDTQZ5033-30-13 02:13:00 Test Item Value Reference Range Interpretation Comments PTT (test code = PTT) 27.5 s 22.9-35.8 [facility] AustinDbkxpqwHHIMGGAPZT6138-37-66 02:13:00 Test Item Value Reference Range Interpretation Comments PT (test code = PT) 12.9 s 12.0-14.7 [facility] AustinRdfjlnrBRYWOVEJXV5065-23-98 02:13:00 Test Item Value Reference Range Interpretation Comments INR (test code = INR) 0.97 1 0.85-1.17 [facility] AustinUqqjprbQTHJZCBZPK1827-21-44 02:13:00 Test Item Value Reference Range Interpretation Comments WBC (test code = WBC) 9.2 3.7-10.4 [facility] AustinFacchxhXMAINPWQSE8543-44-12 02:13:00 Test Item Value Reference Range Interpretation Comments RBC (test code = RBC) 3.90 4.20-5.40 [facility] AustinFrzfzgsOTPMZUKGHV4762-40-95 02:13:00 Test Item Value Reference Range Interpretation Comments Hct (test code = Hct) 35.1 36.0-48.0 [facility] AustinUshxhmgXBNDQKIKSA9680-16-55 02:13:00 Test Item Value Reference Range Interpretation Comments Hgb (test code = Hgb) 11.6 12.0-16.0 [facility] AustinIamxnwaIBPLTBCGQX7140-57-66 02:13:00 Test Item Value Reference Range Interpretation Comments MCV (test code = MCV) 90.0 80.0-98.0 [facility] AustinDsxybhxSQCVEFBKEJ2128-34-12 02:13:00 Test Item Value Reference Range Interpretation Comments RDW (test code = RDW) 14.5 11.5-14.5 [facility] AustinTnmoaxeIXWBHJSUMW9873-86-95 02:13:00 Test Item Value Reference Range Interpretation Comments MCHC (test code = MCHC) 33.0 32.0-36.0 [facility] AustinTllnrfqFSWUIWDEYT3432-47-10 02:13:00 Test Item Value Reference Range Interpretation Comments MCH (test code = MCH) 29.7 pg 27.0-31.0 [facility] AustinRjnewgbMEZHGIZJKH3321-13-70 02:13:00 Test Item Value Reference Range Interpretation Comments Platelet (test code = Platelet) 278 133-450 [facility] AustinKyxtzpqEVPWERYFJE9863-58-15 02:13:00 Test Item Value Reference Range Interpretation Comments MPV (test code = MPV) 9.8 7.4-10.4 [facility] AustinAmfgqmgFQWTONKUUZ0110-43-71 21:22:32 Test Item Value Reference Range Interpretation Comments Factor VIII (test code = Factor VIII) 227 50-242 [facility] AustinNcovdalYLHEIRZHKC3290-10-51 21:22:32 Test Item Value Reference Range Interpretation Comments F5 Leiden PCR (test Negative (03/11/18 3:22 code = F5 Leiden PCR) PM) [facility] AustinHsujfdhWRGSNOILYH9829-67-83 21:22:32 Test Item Value Reference Range Interpretation Comments F5 Leiden Intrp FACTOR V LEIDEN: Negative (test code = F5 INTERPRETATION: Leiden Intrp) Molecular analysis for the Factor V Leiden, [...] Factor V Leiden IVD(Poymerase chain reaction/FRET detection)kit, GotaCopy LC Instrument and the Karen LightCycler 1.2 Instrument. A 222-bp fragment of Factor V gene [...] 1692 and 1696. (Further testing will be recommended in the report). A minimum detection level is 202 copies of Factor V Leiden per reaction. The level of agreement between the Factor V Leiden Kit and sequence analysis was 99.4%. The test result must be interpreted along with the patient's clinical history and relevant laboratory data. This assay has been validated by [facility]. [facility] AustinReqgmftQWDVWYFDUC6397-08-77 21:22:32 Test Item Value Reference Range Interpretation Comments AT III Func (test code = AT III Func) 105 77-140 [facility] JfwftznMIMSSDQKZB4993-55-57 21:22:32 Test Item Value Reference Range Interpretation Comments Protein S Func (test code = Protein S 99 54-137 Func) [facility] WtxambiRETCWGQBTE6838-34-53 21:22:32 Test Item Value Reference Range Interpretation Comments Protein C Func (test code = Protein C 137 72-147 Func) [facility] YrowkeyRFSJOOJBGT1943-75-97 21:22:32 Test Item Value Reference Range Interpretation Comments Homocyst Tot (test code = Homocyst Tot) 9.3 3.7-13.9 [facility] LnkfntlCCXTCJVUFH9398-25-15 21:22:32 Test Item Value Reference Range Interpretation Comments Cardiolipin IgA (test code = 0.5 Cardiolipin IgA) [facility] PpojohjGGICINQKMR6727-95-25 21:22:32 Test Item Value Reference Range Interpretation Comments Cardiolipin IgG (test code = no gt Cardiolipin IgG) [facility] UrfhbtwHEHMYLRQVF0064-92-94 21:22:32 Test Item Value Reference Range Interpretation Comments Cardiolipin IgM (test code = 1.1 Cardiolipin IgM) [facility] PravrnuKFIGEK5601-49-96 12:56:00 Test Item Value Reference Range Interpretation Comments VLDL (test code = See Note 7*NA*(03/11/18 VLDL) 6:56 AM) [facility] SptvsphSTFQBJ9900-58-81 12:56:00 Test Item Value Reference Range Interpretation Comments Chol (test code = Chol) 277 [facility] JwjpfkhICHWCY9318-45-46 12:56:00 Test Item Value Reference Range Interpretation Comments Trig (test code = Trig) 575 [facility] GgdjhtyEOHJQJ4802-07-13 12:56:00 Test Item Value Reference Range Interpretation Comments HDL (test code = HDL) 29 [facility] YibgbuiCSOODI2863-13-75 12:56:00 Test Item Value Reference Range Interpretation Comments LDL (Calculated) (test code = See Note mg/dL LDL (Calculated)) [facility] RwxafztYSNCNT1358-87-55 12:56:00 Test Item Value Reference Range Interpretation Comments CHD Risk (test code = CHD Risk) 9.55 1 3.90-5.80 [facility] BZKVKN0694-08-06 05:50:00 Test Item Value Reference Range Interpretation Comments U Opiate Scr (test Positive *ABN*(03/10/18 code = U Opiate Scr) 11:50 PM) [facility] SCZEAY7564-56-31 05:50:00 Test Item Value Reference Range Interpretation Comments UDS Note (test code = See Note (03/10/18 UDS Note) 11:50 PM) [facility] STDCDX0528-88-34 05:50:00 Test Item Value Reference Range Interpretation Comments U Phencyclidine Scr (test Negative code = U Phencyclidine *NA*(03/10/18 11:50 Scr) PM) [facility] EDXNDL1462-39-84 05:50:00 Test Item Value Reference Range Interpretation Comments U Cocaine Scr (test Negative *NA*(03/10/18 code = U Cocaine Scr) 11:50 PM) [facility] DPKBWJ2830-12-62 05:50:00 Test Item Value Reference Range Interpretation Comments U Benzodiaz Scr (test Positive code = U Benzodiaz Scr) *ABN*(03/10/18 11:50 PM) [facility] UVFEWC0146-18-76 05:50:00 Test Item Value Reference Range Interpretation Comments U Cannab Scr (test Negative *NA*(03/10/18 code = U Cannab Scr) 11:50 PM) [facility] JBBXFB4217-76-88 05:50:00 Test Item Value Reference Range Interpretation Comments U Merline Scr (test code Negative *NA*(03/10/18 = U Merline Scr) 11:50 PM) [facility] DVDXTN3751-89-22 05:50:00 Test Item Value Reference Range Interpretation Comments U Amph Scr (test code Negative *NA*(03/10/18 = U Amph Scr) 11:50 PM) [facility] BIGRC1991-05-02 05:50:00 Test Item Value Reference Range Interpretation Comments UA Urobilinogen (test code = UA 0.2 0.1-1.0 Urobilinogen) [facility] DOYZY2214-49-65 05:50:00 Test Item Value Reference Range Interpretation Comments UA Blood (test code = Moderate *ABN*(03/10/18 UA Blood) 11:50 PM) [facility] XKPNV9148-58-93 05:50:00 Test Item Value Reference Range Interpretation Comments UA Bili (test code = Negative *NA*(03/10/18 UA Bili) 11:50 PM) [facility] AND ROGDL1829-87-18 05:50:00 Test Item Value Reference Range Interpretation Comments UA Leuk Est (test Negative (03/10/18 11:50 code = UA Leuk Est) PM) [facility] AND GFTPB8968-97-54 05:50:00 Test Item Value Reference Range Interpretation Comments UA Nitrite (test code Negative (03/10/18 = UA Nitrite) 11:50 PM) [facility] AND [id number] 05:50:00 Test Item Value Reference Range Interpretation Comments UA Ketones (test code = Trace *ABN*(03/10/18 UA Ketones) 11:50 PM) [facility] AND THQCK6208-72-56 05:50:00 Test Item Value Reference Range Interpretation Comments UA Glucose (test code = 250 *ABN*(03/10/18 UA Glucose) 11:50 PM) [facility] AND ELRKX9894-49-21 05:50:00 Test Item Value Reference Range Interpretation Comments UA Protein (test code = Trace *ABN*(03/10/18 UA Protein) 11:50 PM) [facility] AND AGCZS9444-42-16 05:50:00 Test Item Value Reference Range Interpretation Comments UA pH (test code = UA pH) 6.5 1 5.0-8.0 [facility] AND [id number] 05:50:00 Test Item Value Reference Range Interpretation Comments UA Spec Grav (test code = UA Spec 1.010 1 Grav) [facility] AND KCOIY9240-86-33 05:50:00 Test Item Value Reference Range Interpretation Comments UA Turbidity (test code = Clear (03/10/18 UA Turbidity) 11:50 PM) [facility] AND JVKRG1373-17-91 05:50:00 Test Item Value Reference Range Interpretation Comments UA Color (test code = Yellow *NA*(03/10/18 UA Color) 11:50 PM) [facility] AND [id number] 05:50:00 Test Item Value Reference Range Interpretation Comments UA WBC (test code = 5 See_Comment [Automa irma message] The UA WBC) system which ge nerated this result transmit irma reference range : <=5. The reference range was not used to interpr et this result as gabi l/abnormal. [facility] [id number] 05:50:00 Test Item Value Reference Range Interpretation Comments UA Bacteria (test code = UA Occasional /HPF Bacteria) [facility] [id number] 05:50:00 Test Item Value Reference Range Interpretation Comments UA RBC (test code = 8 See_Comment [Automa irma message] The UA RBC) system which ge nerated this result transmit irma reference range : <=2. The reference range was not used to interpr et this result as gabi l/abnormal. [facility] AND TEKUS9521-06-22 05:50:00 Test Item Value Reference Range Interpretation Comments UA Sq Epi (test code = UA Sq Epi) Many /LPF [facility] HospitalXpzydkcTKVZGF3275-01-99 23:03:21 Test Item Value Reference Range Interpretation Comments VLDL (test code = See Note 8*NA*(03/10/18 VLDL) 5:03 PM) [facility] HospitalInxbpmuNRMCHP5343-69-58 23:03:21 Test Item Value Reference Range Interpretation Comments CHD Risk (test code = CHD Risk) 9.57 1 3.90-5.80 [facility] QlrqrehWMLCHF1713-03-94 23:03:21 Test Item Value Reference Range Interpretation Comments LDL (Calculated) (test code = See Note mg/dL LDL (Calculated)) [facility] HospitalRnrqlomEBUXIB6489-28-43 23:03:21 Test Item Value Reference Range Interpretation Comments HDL (test code = HDL) 30 [facility] HospitalTkhdzbcQOMRUP4358-03-49 23:03:21 Test Item Value Reference Range Interpretation Comments Chol (test code = Chol) 287 [facility] WaqtuxpLNXJXR1100-35-30 23:03:21 Test Item Value Reference Range Interpretation Comments Trig (test code = Trig) 770 [facility] OQTKGQPQH1744-53-42 23:03:21 Test Item Value Reference Range Interpretation Comments Hgb A1C (test code = Hgb A1C) 13.1 [facility]annCARD[facility]AC WHFQWAC0651-24-44 17:42:00 Test Item Value Reference Range Interpretation Comments Troponin-I (test code no gt See_Comment [Auto mated message] The = Troponin-I) system which g enerated this result transmit irma reference range : <=0.40. The reference r laxmi was not used to interpr et this result as gabi l/abnormal. [place] 145698-11-17 17:42:00 Test Item Value Reference Range Interpretation Comments Glucose Lvl (test code = Glucose Lvl) 407 70-99 [facility]2018-11-17 17:42:00 Test Item Value Reference Range Interpretation Comments Sodium Lvl (test code = Sodium Lvl) 138 135-145 [place] 145698-11-17 17:42:00 Test Item Value Reference Range Interpretation Comments Potassium Lvl (test code = Potassium 4.7 3.5-5.1 Lvl) [place] 145698-11-17 17:42:00 Test Item Value Reference Range Interpretation Comments Chloride Lvl (test code = Chloride Lvl) 101 95-109 [facility]2018-11-17 17:42:00 Test Item Value Reference Range Interpretation Comments Calcium Lvl (test code = Calcium Lvl) 8.7 8.5-10.5 [place] 145698-11-17 17:42:00 Test Item Value Reference Range Interpretation Comments AGAP (test code = AGAP) 15.7 10.0-20.0 [place] 145698-11-17 17:42:00 Test Item Value Reference Range Interpretation Comments CO2 (test code = CO2) 26 24-32 [place] 145698-11-17 17:42:00 Test Item Value Reference Range Interpretation Comments BUN (test code = BUN) 9 7-22 [place] 145698-11-17 17:42:00 Test Item Value Reference Range Interpretation Comments Creatinine Lvl (test code = Creatinine 0.86 0.50-1.40 Lvl) [place] 145698-11-17 17:42:00 Test Item Value Reference Range Interpretation Comments eGFR (test code = eGFR) 92 [place] 064158-11-17 17:42:00 Test Item Value Reference Range Interpretation Comments Basophils # (test code 0.1 See_Comment [Aut omated message] The = Basophils #) system which generated this result tra nsmitted reference range : <=0.2. The reference r laxmi was not used to int erpret this result as normal/abnormal . [place] 064158-11-17 17:42:00 Test Item Value Reference Range Interpretation Comments Eosinophils # (test code 0.3 See_Comment [A utomated message] The = Eosinophils #) system whic h generated this result tra nsmitted reference range : <=0.5. The reference r laxmi was not used to int erpret this result as normal/abnormal . [facility] AustinMreuiabGLIMXUUZCA1371-24-47 17:42:00 Test Item Value Reference Range Interpretation Comments Neutrophils # (test code = Neutrophils 5.5 1.5-8.1 #) [facility] AustinVapdejwHUWLLNFQNX4809-81-61 17:42:00 Test Item Value Reference Range Interpretation Comments Lymphocytes # (test code = Lymphocytes 2.5 1.0-5.5 #) [facility] AustinImhsbxwWJSEAVXORC3924-36-29 17:42:00 Test Item Value Reference Range Interpretation Comments Monocytes # (test code 0.5 See_Comment [Aut omated message] The = Monocytes #) system which generated this result tra nsmitted reference range : <=0.8. The reference r laxmi was not used to int erpret this result as normal/abnormal . [facility] AustinWbcywaxFWUXIAHYDS8355-59-59 17:42:00 Test Item Value Reference Range Interpretation Comments Basophils (test code = 1.1 See_Comment [Aut omated message] The Basophils) system which ge nerated this result tra nsmitted reference range : <=1.0. The reference r laxmi was not used to int erpret this result as normal/abnormal . [facility] AustinSybypfqKZBWDQHZIV1232-13-84 17:42:00 Test Item Value Reference Range Interpretation Comments Segs (test code = Segs) 61.9 45.0-75.0 [facility] AustinLbxjirmUXBZAUKGSM4136-51-88 17:42:00 Test Item Value Reference Range Interpretation Comments Lymphocytes (test code = Lymphocytes) 27.9 20.0-40.0 [facility] AustinVqyejerLPXMFPMKJO0538-46-59 17:42:00 Test Item Value Reference Range Interpretation Comments Monocytes (test code = Monocytes) 6.1 2.0-12.0 [facility] AustinVfybjiaVOVNLEHSYV2230-12-62 17:42:00 Test Item Value Reference Range Interpretation Comments Eosinophils (test code = 3.0 See_Comment [A utomated message] The Eosinophils) system which ge nerated this result tra nsmitted reference range : <=4.0. The reference r laxmi was not used to int erpret this result as normal/abnormal . [facility]HOYSXNTR1695[facility]-72 17:42:00 Test Item Value Reference Range Interpretation Comments MCHC (test code = MCHC) 35.1 32.0-36.0 [facility]JsdjyzlNSDJICDYQW6726-51-67 17:42:00 Test Item Value Reference Range Interpretation Comments RDW (test code = RDW) 14.7 11.5-14.5 [facility] HospitalUjlyntkSKAAQRRUGP9687-17-87 17:42:00 Test Item Value Reference Range Interpretation Comments MCV (test code = MCV) 88.4 80.0-98.0 [facility] HospitalFhrrcjkCOYTVLYNKI0480-01-72 17:42:00 Test Item Value Reference Range Interpretation Comments MCH (test code = MCH) 31.0 pg 27.0-31.0 [facility] HospitalHjymbwmJDVQANBGRN0595-85-22 17:42:00 Test Item Value Reference Range Interpretation Comments Hct (test code = Hct) 36.4 36.0-48.0 [facility] HospitalTfbgypmRXQLBUCBWD1016-68-40 17:42:00 Test Item Value Reference Range Interpretation Comments Hgb (test code = Hgb) 12.8 12.0-16.0 [facility] HospitalQqfpuifENONFNACKH9802-41-42 17:42:00 Test Item Value Reference Range Interpretation Comments WBC (test code = WBC) 8.9 3.7-10.4 [facility] HospitalGoewaxpJIUTKYZRTF7046-06-92 17:42:00 Test Item Value Reference Range Interpretation Comments MPV (test code = MPV) 10.3 7.4-10.4 [facility] HospitalFbhuttdWFCWUTRLJL9946-27-96 17:42:00 Test Item Value Reference Range Interpretation Comments Platelet (test code = Platelet) 260 133-450 [facility] HospitalXalwvdqQYDTGEAXMQ0644-39-82 17:42:00 Test Item Value Reference Range Interpretation Comments RBC (test code = RBC) 4.12 4.20-5.40 [facility] OMERYUH5243-42-16 12:19:00 Test Item Value Reference Range Interpretation Comments Troponin-I (test code no gt See_Comment [Auto mated message] The = Troponin-I) system which g enerated this result transmit irma reference range : <=0.40. The reference r laxmi was not used to interpr et this result as gabi l/abnormal. [facility]lineCARDI[facility] HCTOUNH5411-25-94 08:23:00 Test Item Value Reference Range Interpretation Comments Troponin-I (test code no gt See_Comment [Auto mated message] The = Troponin-I) system which g enerated this result transmit irma reference range : <=0.40. The reference r laxmi was not used to interpr et this result as gabi l/abnormal. [facility]lineCor[facility] [employer] SFYMZ8028-81-42 08:23:00 Test Item Value Reference Range Interpretation Comments Glucose Lvl (test code = Glucose Lvl) 447 70-99 [facility]2018-11-17 08:23:00 Test Item Value Reference Range Interpretation Comments BUN (test code = BUN) 10 7-22 [facility]2018-11-17 08:23:00 Test Item Value Reference Range Interpretation Comments Potassium Lvl (test code = Potassium 3.8 3.5-5.1 Lvl) [facility]2018-11-17 08:23:00 Test Item Value Reference Range Interpretation Comments Sodium Lvl (test code = Sodium Lvl) 138 135-145 [facility]2018-11-17 08:23:00 Test Item Value Reference Range Interpretation Comments Chloride Lvl (test code = Chloride Lvl) 99 95-109 [facility]2018-11-17 08:23:00 Test Item Value Reference Range Interpretation Comments Creatinine Lvl (test code = Creatinine 1.02 0.50-1.40 Lvl) [facility]2018-11-17 08:23:00 Test Item Value Reference Range Interpretation Comments eGFR (test code = eGFR) 75 [facility]2018-11-17 08:23:00 Test Item Value Reference Range Interpretation Comments CO2 (test code = CO2) 26 24-32 [facility]2018-11-17 08:23:00 Test Item Value Reference Range Interpretation Comments Calcium Lvl (test code = Calcium Lvl) 8.7 8.5-10.5 [facility]2018-11-17 08:23:00 Test Item Value Reference Range Interpretation Comments AGAP (test code = AGAP) 16.8 10.0-20.0 [facility]linePtzsddnNVTQWYGCOH8971-95-24 08:23:00 Test Item Value Reference Range Interpretation Comments Monocytes (test code = Monocytes) 7.2 2.0-12.0 [facility] AustinAcpzkwxKWVTCEYDRQ5354-73-18 08:23:00 Test Item Value Reference Range Interpretation Comments Segs (test code = Segs) 53.9 45.0-75.0 [facility] AustinVnowmgzWIGNDMVYMY9168-15-03 08:23:00 Test Item Value Reference Range Interpretation Comments Lymphocytes (test code = Lymphocytes) 35.0 20.0-40.0 [facility] AustinSfdqnouRMUETPLLAF3908-78-19 08:23:00 Test Item Value Reference Range Interpretation Comments Eosinophils # (test code 0.3 See_Comment [A utomated message] The = Eosinophils #) system whic h generated this result tra nsmitted reference range : <=0.5. The reference r laxmi was not used to int erpret this result as normal/abnormal . [facility] AustinDivlhaaWMEZOPDKUB4926-15-73 08:23:00 Test Item Value Reference Range Interpretation Comments Basophils # (test code 0.1 See_Comment [Aut omated message] The = Basophils #) system which generated this result tra nsmitted reference range : <=0.2. The reference r laxmi was not used to int erpret this result as normal/abnormal . [facility] AustinYoteskzRVLOUBSARA5970-28-98 08:23:00 Test Item Value Reference Range Interpretation Comments Basophils (test code = 0.8 See_Comment [Aut omated message] The Basophils) system which ge nerated this result tra nsmitted reference range : <=1.0. The reference r laxmi was not used to int erpret this result as normal/abnormal . [facility] AustinJggtmaiVCZAYHHAID1306-76-46 08:23:00 Test Item Value Reference Range Interpretation Comments Neutrophils # (test code = Neutrophils 5.0 1.5-8.1 #) [facility] AustinColmgmnKRUWJVEQDX9494-32-30 08:23:00 Test Item Value Reference Range Interpretation Comments Eosinophils (test code = 3.1 See_Comment [A utomated message] The Eosinophils) system which ge nerated this result tra nsmitted reference range : <=4.0. The reference r laxmi was not used to int erpret this result as normal/abnormal . [facility] AustinEtreajuPXULGKPRUD7438-28-96 08:23:00 Test Item Value Reference Range Interpretation Comments Lymphocytes # (test code = Lymphocytes 3.3 1.0-5.5 #) [facility] AustinQvyfwucUAHEPGTYNM8279-37-49 08:23:00 Test Item Value Reference Range Interpretation Comments Monocytes # (test code 0.7 See_Comment [Aut omated message] The = Monocytes #) system which generated this result tra nsmitted reference range : <=0.8. The reference r laxmi was not used to int erpret this result as normal/abnormal . [facility] AustinSrfislyIBTVGVMHYR5659-01-17 08:23:00 Test Item Value Reference Range Interpretation Comments MCV (test code = MCV) 90.1 80.0-98.0 [facility] AustinZwpveqrPFESFJBBCD3810-53-14 08:23:00 Test Item Value Reference Range Interpretation Comments MCH (test code = MCH) 31.1 pg 27.0-31.0 [facility] AustinBmpiyelAIWEVTMXJK8611-97-29 08:23:00 Test Item Value Reference Range Interpretation Comments Platelet (test code = Platelet) 250 133-450 [facility] AustinKulsavcWQETZHNTRM4828-99-95 08:23:00 Test Item Value Reference Range Interpretation Comments MPV (test code = MPV) 10.3 7.4-10.4 [facility] AustinMhksnzwOJNMLTDNKO4077-51-58 08:23:00 Test Item Value Reference Range Interpretation Comments RBC (test code = RBC) 4.19 4.20-5.40 [facility] AustinAjushbqGTHZTYQMBN1651-00-45 08:23:00 Test Item Value Reference Range Interpretation Comments Hgb (test code = Hgb) 13.0 12.0-16.0 [facility] AustinEvzxzvxANIZOAPOZB3368-00-45 08:23:00 Test Item Value Reference Range Interpretation Comments WBC (test code = WBC) 9.4 3.7-10.4 [facility] AustinYstzbefCORUTBMBEQ4720-18-83 08:23:00 Test Item Value Reference Range Interpretation Comments Hct (test code = Hct) 37.7 36.0-48.0 [facility] AustinKtdivngQUQYALDOQQ3020-48-19 08:23:00 Test Item Value Reference Range Interpretation Comments MCHC (test code = MCHC) 34.6 32.0-36.0 [facility] AustinIicagwuJDRHAVLEKP3900-43-43 08:23:00 Test Item Value Reference Range Interpretation Comments RDW (test code = RDW) 15.0 11.5-14.5 [facility]2018-10-14 14:25:00 Test Item Value Reference Range Interpretation Comments Troponin-I (test code no gt See_Comment [Auto mated message] The = Troponin-I) system which g enerated this result transmit irma reference range : <=0.40. The reference r laxmi was not used to interpr et this result as gabi l/abnormal. [facility]2018-10-14 09:59:00 Test Item Value Reference Range Interpretation Comments Troponin-I (test code no gt See_Comment [Auto mated message] The = Troponin-I) system which g enerated this result transmit irma reference range : <=0.40. The reference r laxmi was not used to interpr et this result as gabi l/abnormal. [facility] WafezqkQUAFQV5759-77-85 09:59:00 Test Item Value Reference Range Interpretation Comments HDL (test code = HDL) 35 [facility] XivewkiNDJOWJ8255-21-43 09:59:00 Test Item Value Reference Range Interpretation Comments Chol (test code = Chol) 363 [facility] DdfwwuwGSNIHU7395-25-02 09:59:00 Test Item Value Reference Range Interpretation Comments Trig (test code = Trig) 276 [facility] RxwlpqvVYTLHY9139-18-29 09:59:00 Test Item Value Reference Range Interpretation Comments CHD Risk (test code = CHD Risk) 10.37 1 3.90-5.80 [facility] TkfkhwxVIVOEY6063-23-85 09:59:00 Test Item Value Reference Range Interpretation Comments VLDL (test code = VLDL) 55 1 [facility] LlnkmyyDKDJVD2646-27-80 09:59:00 Test Item Value Reference Range Interpretation Comments LDL (Calculated) (test code = LDL 273 (Calculated)) [facility]2018-10-14 00:37:00 Test Item Value Reference Range Interpretation Comments Total CK (test code = Total CK) 275 12-191 [facility]2018-10-14 00:37:00 Test Item Value Reference Range Interpretation Comments Troponin-I (test code no gt See_Comment [Auto mated message] The = Troponin-I) system which g enerated this result transmit irma reference range : <=0.40. The reference r laxmi was not used to interpr et this result as gabi l/abnormal. [employer] HJKCQEK7859-82-55 00:37:00 Test Item Value Reference Range Interpretation Comments BNP (test code = BNP) 17 [facility] NEIOG5756-59-14 00:37:00 Test Item Value Reference Range Interpretation Comments B/C Ratio (test code = B/C Ratio) 10 1 6-25 [facility]2018-10-14 00:37:00 Test Item Value Reference Range Interpretation Comments Globulin (test code = Globulin) 4.3 2.7-4.2 [facility]2018-10-14 00:37:00 Test Item Value Reference Range Interpretation Comments A/G Ratio (test code = A/G Ratio) 0.7 1 0.7-1.6 [facility]2018-10-14 00:37:00 Test Item Value Reference Range Interpretation Comments AGAP (test code = AGAP) 19.5 10.0-20.0 [facility]2018-10-14 00:37:00 Test Item Value Reference Range Interpretation Comments eGFR (test code = eGFR) 55 [facility]2018-10-14 00:37:00 Test Item Value Reference Range Interpretation Comments Chloride Lvl (test code = Chloride Lvl) 102 95-109 [facility]2018-10-14 00:37:00 Test Item Value Reference Range Interpretation Comments CO2 (test code = CO2) 21 24-32 [facility]2018-10-14 00:37:00 Test Item Value Reference Range Interpretation Comments Calcium Lvl (test code = Calcium Lvl) 8.2 8.5-10.5 [facility]2018-10-14 00:37:00 Test Item Value Reference Range Interpretation Comments Albumin Lvl (test code = Albumin Lvl) 3.2 3.5-5.0 [facility]2018-10-14 00:37:00 Test Item Value Reference Range Interpretation Comments ALT (test code = ALT) 20 See_Comment [Auto mated message] The system which ge nerated this result transmit irma reference range : <=65. The reference range was not used to interpr et this result as gabi l/abnormal. [facility]lineCor[facility] EYCJL3598-93-29 00:37:00 Test Item Value Reference Range Interpretation Comments Alk Phos (test code = Alk Phos) 92 39-136 [facility]2018-10-14 00:37:00 Test Item Value Reference Range Interpretation Comments AST (test code = AST) 15 See_Comment [Auto mated message] The system which ge nerated this result transmit irma reference range : <=37. The reference range was not used to interpr et this result as gabi l/abnormal. [facility]2018-10-14 00:37:00 Test Item Value Reference Range Interpretation Comments Total Protein (test code = Total 7.5 6.4-8.4 Protein) [facility]2018-10-14 00:37:00 Test Item Value Reference Range Interpretation Comments Bili Total (test code = Bili Total) 0.2 0.2-1.3 [facility]2018-10-14 00:37:00 Test Item Value Reference Range Interpretation Comments Glucose Lvl (test code = Glucose Lvl) 337 70-99 [facility]2018-10-14 00:37:00 Test Item Value Reference Range Interpretation Comments Potassium Lvl (test code = Potassium 3.5 3.5-5.1 Lvl) [facility]2018-10-14 00:37:00 Test Item Value Reference Range Interpretation Comments Sodium Lvl (test code = Sodium Lvl) 139 135-145 [facility]2018-10-14 00:37:00 Test Item Value Reference Range Interpretation Comments Creatinine Lvl (test code = Creatinine 1.31 0.50-1.40 Lvl) [facility]2018-10-14 00:37:00 Test Item Value Reference Range Interpretation Comments BUN (test code = BUN) 13 7-22 [facility] AustinXhzacgfWGSXYQIQAQ2906-17-69 00:37:00 Test Item Value Reference Range Interpretation Comments MCV (test code = MCV) 89.9 80.0-98.0 [facility] AustinKtdpziyRGAIJPJRZG2767-41-52 00:37:00 Test Item Value Reference Range Interpretation Comments Hct (test code = Hct) 35.9 36.0-48.0 [facility] AustinYuiiphfMVGRUBXJIQ3951-20-03 00:37:00 Test Item Value Reference Range Interpretation Comments MPV (test code = MPV) 9.8 7.4-10.4 [facility] AustinIqvgnhoFBYRJCKOIR7927-67-10 00:37:00 Test Item Value Reference Range Interpretation Comments Platelet (test code = Platelet) 238 133-450 [facility] AustinBfbhlvfFUPNSLYQSU7806-33-35 00:37:00 Test Item Value Reference Range Interpretation Comments RDW (test code = RDW) 15.0 11.5-14.5 [facility] AustinImmosroRIFMKQOBHI2307-10-72 00:37:00 Test Item Value Reference Range Interpretation Comments MCHC (test code = MCHC) 33.9 32.0-36.0 [facility] AustinWlmmgmuRKNAQPEZMM9292-03-71 00:37:00 Test Item Value Reference Range Interpretation Comments MCH (test code = MCH) 30.5 pg 27.0-31.0 [facility] AustinUqxhvsrYENPMBZNCQ5592-64-58 00:37:00 Test Item Value Reference Range Interpretation Comments RBC (test code = RBC) 3.99 4.20-5.40 [facility] AustinOtdbyioNGJCEKDDWN4966-50-03 00:37:00 Test Item Value Reference Range Interpretation Comments Hgb (test code = Hgb) 12.2 12.0-16.0 [facility] AustinObipmukLEULBSKEIS8627-93-22 00:37:00 Test Item Value Reference Range Interpretation Comments WBC (test code = WBC) 7.2 3.7-10.4 [facility] AustinMimibsnUYZAYZKKYG4954-08-29 00:37:00 Test Item Value Reference Range Interpretation Comments PTT (test code = PTT) 28.2 s 22.9-35.8 [facility] AustinMjculgiJCXIYATWAP4433-76-17 00:37:00 Test Item Value Reference Range Interpretation Comments PT (test code = PT) 13.0 s 12.0-14.7 [facility] AustinRoefuqeMWSVAHDBDL8514-94-40 00:37:00 Test Item Value Reference Range Interpretation Comments INR (test code = INR) 0.98 1 0.85-1.17 [facility] AustinYlbjrtpUAHRUJDITP3296-60-28 00:37:00 Test Item Value Reference Range Interpretation Comments Monocytes # (test code 0.6 See_Comment [Aut omated message] The = Monocytes #) system which generated this result tra nsmitted reference range : <=0.8. The reference r laxmi was not used to int erpret this result as normal/abnormal . [facility] AustinFjasazxQBDSWTVCKB9804-86-11 00:37:00 Test Item Value Reference Range Interpretation Comments Basophils # (test code 0.1 See_Comment [Aut omated message] The = Basophils #) system which generated this result tra nsmitted reference range : <=0.2. The reference r laxmi was not used to int erpret this result as normal/abnormal . [facility] AustinQsvirdxCPJMRKDBRW2733-74-63 00:37:00 Test Item Value Reference Range Interpretation Comments Eosinophils # (test code 0.2 See_Comment [A utomated message] The = Eosinophils #) system [facility] generated this result tra nsmitted reference range : <=0.5. The reference r laxmi was not used to int erpret this result as normal/abnormal . [facility] AustinUjlcfljHXDWKJNHFL5254-35-14 00:37:00 Test Item Value Reference Range Interpretation Comments Lymphocytes (test code = Lymphocytes) 31.8 20.0-40.0 [facility] AustinCpdjxgkGOWTFRKPBR0693-43-90 00:37:00 Test Item Value Reference Range Interpretation Comments Neutrophils # (test code = Neutrophils 4.1 1.5-8.1 #) [facility] AustinEmupweyGTJIHGVQHA0549-25-67 00:37:00 Test Item Value Reference Range Interpretation Comments Segs (test code = Segs) 56.5 45.0-75.0 [facility] AustinGryqkqnFAEKEHIRXH9158-58-56 00:37:00 Test Item Value Reference Range Interpretation Comments Monocytes (test code = Monocytes) 8.2 2.0-12.0 [facility] AustinZngyzgvABKHEUDNXX4055-67-65 00:37:00 Test Item Value Reference Range Interpretation Comments Basophils (test code = 1.0 See_Comment [Aut omated message] The Basophils) system which ge nerated this result tra nsmitted reference range : <=1.0. The reference r laxmi was not used to int erpret this result as normal/abnormal . [facility] AustinYybbzikOYYKWSSZDN4777-62-83 00:37:00 Test Item Value Reference Range Interpretation Comments Eosinophils (test code = 2.5 See_Comment [A utomated message] The Eosinophils) system which ge nerated this result tra nsmitted reference range : <=4.0. The reference r laxmi was not used to int erpret this result as normal/abnormal . [facility] AustinHdchhjdFDGLVFUEOI1659-31-05 00:37:00 Test Item Value Reference Range Interpretation Comments Lymphocytes # (test code = Lymphocytes 2.3 1.0-5.5 #) [facility]lineCulture: Ihwmc6879-27-24 21:03:40 Test Item Value Reference Range Interpretation Comments Culture: Urine (test <10,000 CFU/mL Skin code = Culture: Urine) [facility] AND [id number] 19:40:00 Test Item Value Reference Range Interpretation Comments UA Urobilinogen (test code = UA <=1.0 mg/dL 0.1-1.0 Urobilinogen) [facility] AND [id number] 19:40:00 Test Item Value Reference Range Interpretation Comments UA Color (test code = UA Color) Ltyellow [facility] AND [id number] 19:40:00 Test Item Value Reference Range Interpretation Comments UA Mucus (test code = UA Mucus) Few /LPF [facility] AND FEJGO9129-07-59 19:40:00 Test Item Value Reference Range Interpretation Comments UA Bacteria (test code = UA Occasional /HPF Bacteria) [facility] AND [id number] 19:40:00 Test Item Value Reference Range Interpretation Comments UA RBC (test code = 10 See_Comment [Automa irma message] The UA RBC) system which ge nerated this result transmit irma reference range : <=2. The reference range was not used to interpr et this result as gabi l/abnormal. [facility] AND [id number] 19:40:00 Test Item Value Reference Range Interpretation Comments UA WBC (test code = 57 See_Comment [Automa irma message] The UA WBC) system which ge nerated this result transmit irma reference range : <=5. The reference range was not used to interpr et this result as gabi l/abnormal. [facility] AND [id number] 19:40:00 Test Item Value Reference Range Interpretation Comments UA Leuk Est (test code Large *ABN*(01/06/18 = UA Leuk Est) 2:40 PM) [facility] AND [id number] 19:40:00 Test Item Value Reference Range Interpretation Comments UA Nitrite (test code Negative (01/06/18 2:40 = UA Nitrite) PM) [facility] AND [id number] 19:40:00 Test Item Value Reference Range Interpretation Comments UA Blood (test code = Small *ABN*(01/06/18 UA Blood) 2:40 PM) [facility] AND [id number] 19:40:00 Test Item Value Reference Range Interpretation Comments UA Sq Epi (test code = UA Sq Epi) Few /LPF [facility] AND [id number] 19:40:00 Test Item Value Reference Range Interpretation Comments UA Protein (test code = UA Negative mg/dL Protein) [facility] AND [id number] 19:40:00 Test Item Value Reference Range Interpretation Comments UA Turbidity (test code = Clear (01/06/18 2:40 UA Turbidity) PM) [facility] AND [id number] 19:40:00 Test Item Value Reference Range Interpretation Comments UA pH (test code = UA pH) 5.0 1 5.0-8.0 [facility] AND [id number] 19:40:00 Test Item Value Reference Range Interpretation Comments UA Spec Grav (test code = UA Spec 1.017 1 Grav) [facility] AND [id number] 19:40:00 Test Item Value Reference Range Interpretation Comments UA Bili (test code = Negative *NA*(01/06/18 UA Bili) 2:40 PM) [facility] AND [id number] 19:40:00 Test Item Value Reference Range Interpretation Comments UA Ketones (test code = UA Negative mg/dL Ketones) [facility] AND [id number] 19:40:00 Test Item Value Reference Range Interpretation Comments UA Glucose (test code = UA Glucose) 500 mg/dL [facility] [facility] [id number] 19:40:00 Test Item Value Reference Range Interpretation Comments U Preg (test code = U Negative (01/06/18 2:40 Preg) PM) [facility] [id number] 19:37:00 Test Item Value Reference Range Interpretation Comments Troponin-I (test code no gt See_Comment [Auto mated message] The = Troponin-I) system which g enerated this result transmit irma reference range : <=0.40. The reference r laxmi was not used to interpr et this result as gabi l/abnormal. [facility] [id number] 19:37:00 Test Item Value Reference Range Interpretation Comments eGFR (test code = eGFR) 54 [facility]2018-09-15 19:37:00 Test Item Value Reference Range Interpretation Comments Bili Total (test code = Bili Total) no gt 0.2-1.3 [facility]2018-09-15 19:37:00 Test Item Value Reference Range Interpretation Comments Alk Phos (test code = Alk Phos) 118 39-136 [facility]2018-09-15 19:37:00 Test Item Value Reference Range Interpretation Comments AST (test code = AST) 8 See_Comment [Auto mated message] The system which ge nerated this result transmit irma reference range : <=37. The reference range was not used to interpr et this result as gabi l/abnormal. [facility]2018-09-15 19:37:00 Test Item Value Reference Range Interpretation Comments B/C Ratio (test code = B/C Ratio) 10 1 6-25 [facility]2018-09-15 19:37:00 Test Item Value Reference Range Interpretation Comments Globulin (test code = Globulin) 4.2 2.7-4.2 [facility]2018-09-15 19:37:00 Test Item Value Reference Range Interpretation Comments A/G Ratio (test code = A/G Ratio) 0.8 1 0.7-1.6 [facility]2018-09-15 19:37:00 Test Item Value Reference Range Interpretation Comments Total Protein (test code = Total 7.6 6.4-8.4 Protein) [facility]2018-09-15 19:37:00 Test Item Value Reference Range Interpretation Comments Albumin Lvl (test code = Albumin Lvl) 3.4 3.5-5.0 [place] 145698-09-15 19:37:00 Test Item Value Reference Range Interpretation Comments ALT (test code = ALT) 24 See_Comment [Auto mated message] The system which ge nerated this result transmit irma reference range : <=65. The reference range was not used to interpr et this result as gabi l/abnormal. [facility]2018-09-15 19:37:00 Test Item Value Reference Range Interpretation Comments Chloride Lvl (test code = Chloride Lvl) 97 95-109 [place] 145698-09-15 19:37:00 Test Item Value Reference Range Interpretation Comments CO2 (test code = CO2) 25 24-32 [facility]2018-09-15 19:37:00 Test Item Value Reference Range Interpretation Comments Calcium Lvl (test code = Calcium Lvl) 8.4 8.5-10.5 [facility]2018-09-15 19:37:00 Test Item Value Reference Range Interpretation Comments AGAP (test code = AGAP) 15.0 10.0-20.0 [facility]2018-09-15 19:37:00 Test Item Value Reference Range Interpretation Comments Glucose Lvl (test code = Glucose Lvl) 474 70-99 [facility]2018-09-15 19:37:00 Test Item Value Reference Range Interpretation Comments Sodium Lvl (test code = Sodium Lvl) 133 135-145 [facility]2018-09-15 19:37:00 Test Item Value Reference Range Interpretation Comments Potassium Lvl (test code = Potassium 4.0 3.5-5.1 Lvl) [facility]2018-09-15 19:37:00 Test Item Value Reference Range Interpretation Comments Creatinine Lvl (test code = Creatinine 1.33 0.50-1.40 Lvl) [facility]2018-09-15 19:37:00 Test Item Value Reference Range Interpretation Comments BUN (test code = BUN) 13 7-22 [facility] AustinDyjeyhfMCJCVZLSJI3786-01-85 19:37:00 Test Item Value Reference Range Interpretation Comments Monocytes (test code = Monocytes) 5.6 2.0-12.0 [facility] AustinXaqoqqyZIPCOYREHA7895-88-01 19:37:00 Test Item Value Reference Range Interpretation Comments Eosinophils (test code = 2.1 See_Comment [A utomated message] The Eosinophils) system which ge nerated this result tra nsmitted reference range : <=4.0. The reference r laxmi was not used to int erpret this result as normal/abnormal . [facility] AustinRssnkopPYVGZFTCYZ8781-87-60 19:37:00 Test Item Value Reference Range Interpretation Comments Segs (test code = Segs) 64.7 45.0-75.0 [facility] AustinRuketinELBDQDTYMR0571-89-20 19:37:00 Test Item Value Reference Range Interpretation Comments Lymphocytes (test code = Lymphocytes) 26.6 20.0-40.0 [facility] AustinRhrqvndXSBHRXZGTP8420-33-72 19:37:00 Test Item Value Reference Range Interpretation Comments Basophils # (test code 0.1 See_Comment [Aut omated message] The = Basophils #) system which generated this result tra nsmitted reference range : <=0.2. The reference r laxmi was not used to int erpret this result as normal/abnormal . [facility] AustinSdfdssqQEGTLVKDPH3797-31-33 19:37:00 Test Item Value Reference Range Interpretation Comments Basophils (test code = 1.0 See_Comment [Aut omated message] The Basophils) system which ge nerated this result tra nsmitted reference range : <=1.0. The reference r laxmi was not used to int erpret this result as normal/abnormal . [facility] AustinSkngsloUHTIDUFVDX2940-09-87 19:37:00 Test Item Value Reference Range Interpretation Comments Monocytes # (test code 0.6 See_Comment [Aut omated message] The = Monocytes #) system which generated this result tra nsmitted reference range : <=0.8. The reference r laxmi was not used to int erpret this result as normal/abnormal . [facility] AustinYgsdlgzARXMRUYFOK2429-90-48 19:37:00 Test Item Value Reference Range Interpretation Comments Eosinophils # (test code 0.2 See_Comment [A utomated message] The = Eosinophils #) system whic h generated this result tra nsmitted reference range : <=0.5. The reference r laxmi was not used to int erpret this result as normal/abnormal . [facility] AustinAxhaqzfEYJUVHZXYE8504-16-98 19:37:00 Test Item Value Reference Range Interpretation Comments Neutrophils # (test code = Neutrophils 6.6 1.5-8.1 #) [facility] AustinDwkcccbSTPDOVRGNP9400-63-23 19:37:00 Test Item Value Reference Range Interpretation Comments Lymphocytes # (test code = Lymphocytes 2.7 1.0-5.5 #) [facility] AustinQilojdbJSDBCJHPYX4478-46-50 19:37:00 Test Item Value Reference Range Interpretation Comments Platelet (test code = Platelet) 285 133-450 [facility] AustinOhngmzpBSJKGRWUCX8277-84-83 19:37:00 Test Item Value Reference Range Interpretation Comments MPV (test code = MPV) 9.7 7.4-10.4 [facility] AustinDucwlgwDVOAUTWBHR7597-85-66 19:37:00 Test Item Value Reference Range Interpretation Comments MCHC (test code = MCHC) 34.0 32.0-36.0 [facility]em[facility]pxxBXQAHXMTFM7568-82-51 19:37:00 Test Item Value Reference Range Interpretation Comments RDW (test code = RDW) 14.1 11.5-14.5 [facility] HospitalNbysagaOGMIBUODBJ7277-97-85 19:37:00 Test Item Value Reference Range Interpretation Comments Hct (test code = Hct) 37.6 36.0-48.0 [facility]QdmdggqHRAPVHGMKG1973-38-40 19:37:00 Test Item Value Reference Range Interpretation Comments MCV (test code = MCV) 90.0 80.0-98.0 [facility] AustinPeuvmpkRYVEPUSDRA6847-26-31 19:37:00 Test Item Value Reference Range Interpretation Comments RBC (test code = RBC) 4.17 4.20-5.40 [facility] AustinPwhofqoJZTLMXZFCA1455-81-10 19:37:00 Test Item Value Reference Range Interpretation Comments Hgb (test code = Hgb) 12.8 12.0-16.0 [facility] HospitalBcilmmkLVWJIONYHQ8208-67-65 19:37:00 Test Item Value Reference Range Interpretation Comments MCH (test code = MCH) 30.6 pg 27.0-31.0 [facility] HospitalCoedooiYSLLQXXFQT2541-74-35 19:37:00 Test Item Value Reference Range Interpretation Comments WBC (test code = WBC) 10.2 3.7-10.4 [facility] Buzz3602018-06-24 09:52:00 Test Item Value Reference Range Interpretation Comments Troponin-I (test code no gt See_Comment [Auto mated message] The = Troponin-I) system which g enerated this result transmit irma reference range : <=0.40. The reference r laxmi was not used to interpr et this result as gabi l/abnormal. [facility] [employer] NIQUFLY3495-58-28 09:52:00 Test Item Value Reference Range Interpretation Comments Total CK (test code = Total CK) 80 12-191 [facility]atVenu JRBYGVC6448-33-47 09:52:00 Test Item Value Reference Range Interpretation Comments CK MB (test code = CK MB) no gt 0.5-3.6 [facility] HermannCARDIAC OYOVGBL2170-43-70 09:52:00 Test Item Value Reference Range Interpretation Comments CK MB Index (test no gt See_Comment [Automate d message] The code = CK MB Index) system w [employer] generated this result transmit irma reference range : <=2.5. The reference range was not used to interpr et this result as gabi l/abnormal. [facility] SwxujbtMOILLF1383-55-86 09:52:00 Test Item Value Reference Range Interpretation Comments Trig (test code = Trig) 308 [facility] EnriyedBLKQWS1031-98-27 09:52:00 Test Item Value Reference Range Interpretation Comments Chol (test code = Chol) 310 [facility] GqftysnCNMCDV6749-54-03 09:52:00 Test Item Value Reference Range Interpretation Comments HDL (test code = HDL) 37 [facility] YpxpvrrHLUYCM6752-66-81 09:52:00 Test Item Value Reference Range Interpretation Comments CHD Risk (test code = CHD Risk) 8.38 1 3.90-5.80 [facility] FumbnxeSNFPZY8114-60-41 09:52:00 Test Item Value Reference Range Interpretation Comments LDL (Calculated) (test code = LDL 211 (Calculated)) [facility] OwajmfeZCDTKZ3028-02-39 09:52:00 Test Item Value Reference Range Interpretation Comments VLDL (test code = VLDL) 62 1 [facility] [employer]3602018-06-24 05:31:00 Test Item Value Reference Range Interpretation Comments Troponin-I (test code no gt See_Comment [Auto mated message] The = Troponin-I) system which g enerated this result transmit irma reference range : <=0.40. The reference r laxmi was not used to interpr et this result as gabi l/abnormal. [facility] CovacsisCARHyper9AC MPBUQDA2601-71-92 05:31:00 Test Item Value Reference Range Interpretation Comments Total CK (test code = Total CK) 85 12-191 [facility] Buzz3602018-06-24 05:31:00 Test Item Value Reference Range Interpretation Comments CK MB Index (test no gt See_Comment [Automate d message] The code = CK MB Index) system w [employer] generated this result transmit irma reference range : <=2.5. The reference range was not used to interpr et this result as gabi l/abnormal. [facility] CovacsisCARDIAC QRASFUH4314-96-60 05:31:00 Test Item Value Reference Range Interpretation Comments CK MB (test code = CK MB) no gt 0.5-3.6 [facility] HospitalmeghaCARDIAC TFOKIEN8061-30-26 23:08:00 Test Item Value Reference Range Interpretation Comments Troponin-I (test code no gt See_Comment [Auto mated message] The = Troponin-I) system which g enerated this result transmit irma reference range : <=0.40. The reference r laxmi was not used to interpr et this result as gabi l/abnormal. [facility] [id number] 18:35:00 Test Item Value Reference Range Interpretation Comments UA Urobilinogen (test code = UA <=1.0 mg/dL 0.1-1.0 Urobilinogen) [facility] AND [id number] 18:35:00 Test Item Value Reference Range Interpretation Comments UA Color (test code = UA Color) Colorless [facility] AND [id number] 18:35:00 Test Item Value Reference Range Interpretation Comments UA RBC (test code = no gt See_Comment [Automa irma message] The UA RBC) system which ge nerated this result transmit irma reference range : <=2. The reference range was not used to interpr et this result as gabi l/abnormal. [facility] [id number] 18:35:00 Test Item Value Reference Range Interpretation Comments UA Turbidity (test code = Clear (10/14/17 1:35 UA Turbidity) PM) [facility] AND [id number] 18:35:00 Test Item Value Reference Range Interpretation Comments UA Spec Grav (test code = UA Spec 1.028 1 Grav) [facility] AND [id number] 18:35:00 Test Item Value Reference Range Interpretation Comments UA Protein (test code = UA Negative mg/dL Protein) [facility] AND [id number] 18:35:00 Test Item Value Reference Range Interpretation Comments UA Glucose (test code = UA Glucose) 500 mg/dL [facility] AND [id number] 18:35:00 Test Item Value Reference Range Interpretation Comments UA pH (test code = UA pH) 5.0 1 5.0-8.0 [facility] AND [id number] 18:35:00 Test Item Value Reference Range Interpretation Comments UA WBC (test code = no gt See_Comment [Automa irma message] The UA WBC) system which ge nerated this result transmit irma reference range : <=5. The reference range was not used to interpr et this result as gabi l/abnormal. [facility] AND JMBJY3770-03-17 18:35:00 Test Item Value Reference Range Interpretation Comments UA Leuk Est (test Negative (10/14/17 1:35 code = UA Leuk Est) PM) [facility] [id number] 18:35:00 Test Item Value Reference Range Interpretation Comments UA Sq Epi (test code = UA Sq Occasional /LPF Epi) [facility] AND [id number] 18:35:00 Test Item Value Reference Range Interpretation Comments UA Bili (test code = Negative *NA*(10/14/17 UA Bili) 1:35 PM) [facility] AND [id number] 18:35:00 Test Item Value Reference Range Interpretation Comments UA Ketones (test code = UA Negative mg/dL Ketones) [facility] [id number] 18:35:00 Test Item Value Reference Range Interpretation Comments UA Blood (test code = Negative (10/14/17 1:35 UA Blood) PM) [facility] [id number] 18:35:00 Test Item Value Reference Range Interpretation Comments UA Nitrite (test code Negative (10/14/17 1:35 = UA Nitrite) PM) [facility] [employer] [id number] 18:03:00 Test Item Value Reference Range Interpretation Comments eGFR (test code = eGFR) 84 [facility] HospitalVocent [id number] 18:03:00 Test Item Value Reference Range Interpretation Comments Bili Total (test code = Bili Total) 0.2 0.2-1.3 [facility] [employer] [id number] 18:03:00 Test Item Value Reference Range Interpretation Comments ALT (test code = ALT) 20 See_Comment [Auto mated message] The system which ge nerated this result transmit irma reference range : <=65. The reference range was not used to interpr et this result as gabi l/abnormal. [facility] [employer] [id number] 18:03:00 Test Item Value Reference Range Interpretation Comments A/G Ratio (test code = A/G Ratio) 0.9 1 0.7-1.6 [facility]2018-06-23 18:03:00 Test Item Value Reference Range Interpretation Comments Alk Phos (test code = Alk Phos) 111 39-136 [facility]2018-06-23 18:03:00 Test Item Value Reference Range Interpretation Comments AST (test code = AST) 7 See_Comment [Auto mated message] The system which ge nerated this result transmit irma reference range : <=37. The reference range was not used to interpr et this result as gabi l/abnormal. [facility]2018-06-23 18:03:00 Test Item Value Reference Range Interpretation Comments Albumin Lvl (test code = Albumin Lvl) 3.4 3.5-5.0 [facility]2018-06-23 18:03:00 Test Item Value Reference Range Interpretation Comments Total Protein (test code = Total 7.3 6.4-8.4 Protein) [facility]2018-06-23 18:03:00 Test Item Value Reference Range Interpretation Comments Globulin (test code = Globulin) 3.9 2.7-4.2 [facility]2018-06-23 18:03:00 Test Item Value Reference Range Interpretation Comments B/C Ratio (test code = B/C Ratio) 16 1 6-25 [facility]2018-06-23 18:03:00 Test Item Value Reference Range Interpretation Comments Calcium Lvl (test code = Calcium Lvl) 8.6 8.5-10.5 [facility]2018-06-23 18:03:00 Test Item Value Reference Range Interpretation Comments CO2 (test code = CO2) 22 24-32 [facility]2018-06-23 18:03:00 Test Item Value Reference Range Interpretation Comments AGAP (test code = AGAP) 16.8 10.0-20.0 [facility]2018-06-23 18:03:00 Test Item Value Reference Range Interpretation Comments Chloride Lvl (test code = Chloride Lvl) 105 95-109 [facility]2018-06-23 18:03:00 Test Item Value Reference Range Interpretation Comments Potassium Lvl (test code = Potassium 3.8 3.5-5.1 Lvl) [facility]2018-06-23 18:03:00 Test Item Value Reference Range Interpretation Comments Sodium Lvl (test code = Sodium Lvl) 140 135-145 [facility]2018-06-23 18:03:00 Test Item Value Reference Range Interpretation Comments Creatinine Lvl (test code = Creatinine 0.93 0.50-1.40 Lvl) [facility]2018-06-23 18:03:00 Test Item Value Reference Range Interpretation Comments BUN (test code = BUN) 15 7-22 [place] 145698-06-23 18:03:00 Test Item Value Reference Range Interpretation Comments Glucose Lvl (test code = Glucose Lvl) 468 70-99 [facility] AustinZlayqhxAJPGFLSFTF3802-12-50 18:03:00 Test Item Value Reference Range Interpretation Comments Basophils # (test code 0.1 See_Comment [Aut omated message] The = Basophils #) system which generated this result tra nsmitted reference range : <=0.2. The reference r laxmi was not used to int erpret this result as normal/abnormal . [facility] AustinQkqdchhHIVIOXTJPQ0877-40-32 18:03:00 Test Item Value Reference Range Interpretation Comments Eosinophils # (test code 0.6 See_Comment [A utomated message] The = Eosinophils #) system whic h generated this result tra nsmitted reference range : <=0.5. The reference r laxmi was not used to int erpret this result as normal/abnormal . [facility] AustinWocoxtdUQOHGLXPOP2831-49-92 18:03:00 Test Item Value Reference Range Interpretation Comments Monocytes (test code = Monocytes) 5.8 2.0-12.0 [facility] AustinSnlrzpzZITSFHAAOA2888-80-46 18:03:00 Test Item Value Reference Range Interpretation Comments Eosinophils (test code = 7.6 See_Comment [A utomated message] The Eosinophils) system which ge nerated this result tra nsmitted reference range : <=4.0. The reference r laxmi was not used to int erpret this result as normal/abnormal . [facility] AustinGayagmhQREVSCSYGX6890-17-14 18:03:00 Test Item Value Reference Range Interpretation Comments Basophils (test code = 1.0 See_Comment [Aut omated message] The Basophils) system which ge nerated this result tra nsmitted reference range : <=1.0. The reference r laxmi was not used to int erpret this result as normal/abnormal . [facility] AustinCqbixrqVWRENZDDDE3465-79-83 18:03:00 Test Item Value Reference Range Interpretation Comments Segs (test code = Segs) 64.1 45.0-75.0 [facility] AustinEwqhceaQNNYELECJK5806-87-12 18:03:00 Test Item Value Reference Range Interpretation Comments Lymphocytes (test code = Lymphocytes) 21.5 20.0-40.0 [facility] AustinLielkcxNMMXIUECEQ4804-55-31 18:03:00 Test Item Value Reference Range Interpretation Comments Monocytes # (test code 0.5 See_Comment [Aut omated message] The = Monocytes #) system which generated this result tra nsmitted reference range : <=0.8. The reference r laxmi was not used to int erpret this result as normal/abnormal . [facility] AustinNcosssmKOYGFLBWWT5589-95-97 18:03:00 Test Item Value Reference Range Interpretation Comments Lymphocytes # (test code = Lymphocytes 1.7 1.0-5.5 #) [facility] AustinOqwwmidZJEBWIYKMX2774-12-87 18:03:00 Test Item Value Reference Range Interpretation Comments Segs-Bands # (test code = Segs-Bands #) 5.1 1.5-8.1 [facility] AustinGfdhgwiKWYKNAWBFZ1441-26-58 18:03:00 Test Item Value Reference Range Interpretation Comments MPV (test code = MPV) 9.9 7.4-10.4 [facility] AustinQmdazwcUYPAOXNKAN5032-99-22 18:03:00 Test Item Value Reference Range Interpretation Comments Hct (test code = Hct) 34.7 36.0-48.0 [facility] AustinNeuqonfBVQNEDPODS4174-27-06 18:03:00 Test Item Value Reference Range Interpretation Comments MCH (test code = MCH) 29.8 pg 27.0-31.0 [facility] AustinWjvdcdxTRQJTXZSQP3527-04-27 18:03:00 Test Item Value Reference Range Interpretation Comments Hgb (test code = Hgb) 11.3 12.0-16.0 [facility] AustinOxzxknjAXMBGWJFNF8594-06-22 18:03:00 Test Item Value Reference Range Interpretation Comments MCV (test code = MCV) 91.5 80.0-98.0 [facility] AustinRprjdumRCPYLMWJVJ9410-88-82 18:03:00 Test Item Value Reference Range Interpretation Comments RBC (test code = RBC) 3.79 4.20-5.40 [facility] AustinGubztcjSYMTGRTCDR2526-53-08 18:03:00 Test Item Value Reference Range Interpretation Comments Platelet (test code = Platelet) 257 133-450 [facility] AustinNxnoayeJOIRASLLPD3230-99-24 18:03:00 Test Item Value Reference Range Interpretation Comments MCHC (test code = MCHC) 32.6 32.0-36.0 [facility] AustinVetghgrJBPSADGLLI1836-64-92 18:03:00 Test Item Value Reference Range Interpretation Comments RDW (test code = RDW) 14.5 11.5-14.5 [facility] AustinQntupthMQTVAYWDNK9678-29-71 18:03:00 Test Item Value Reference Range Interpretation Comments WBC (test code = WBC) 8.0 3.7-10.4 [facility]2018-06-01 08:47:00 Test Item Value Reference Range Interpretation Comments Calcium Lvl (test code = Calcium Lvl) 8.9 8.5-10.5 [facility]2018-06-01 08:47:00 Test Item Value Reference Range Interpretation Comments Sodium Lvl (test code = Sodium Lvl) 141 135-145 [facility]2018-06-01 08:47:00 Test Item Value Reference Range Interpretation Comments Potassium Lvl (test code = Potassium 4.9 3.5-5.1 Lvl) [facility]2018-06-01 08:47:00 Test Item Value Reference Range Interpretation Comments Chloride Lvl (test code = Chloride Lvl) 107 95-109 [facility]2018-06-01 08:47:00 Test Item Value Reference Range Interpretation Comments Glucose Lvl (test code = Glucose Lvl) 225 70-99 [facility]2018-06-01 08:47:00 Test Item Value Reference Range Interpretation Comments BUN (test code = BUN) 16 7-22 [facility]2018-06-01 08:47:00 Test Item Value Reference Range Interpretation Comments Creatinine Lvl (test code = Creatinine 0.70 0.50-1.40 Lvl) [facility]2018-06-01 08:47:00 Test Item Value Reference Range Interpretation Comments AGAP (test code = AGAP) 15.9 10.0-20.0 [facility]2018-06-01 08:47:00 Test Item Value Reference Range Interpretation Comments Magnesium Lvl (test code = Magnesium 2.3 1.8-2.4 Lvl) [facility] AustinGnktiyoMBGKNNZTSO8297-54-84 08:47:00 Test Item Value Reference Range Interpretation Comments Monocytes # (test code 0.5 See_Comment [Aut omated message] The = Monocytes #) system which generated this result tra nsmitted reference range : <=0.8. The reference r laxmi was not used to int erpret this result as normal/abnormal . [facility] AustinJjhrfzgBRJSNUDVRZ8234-30-08 08:47:00 Test Item Value Reference Range Interpretation Comments Lymphocytes # (test code = Lymphocytes 3.1 1.0-5.5 #) [facility] AustinKtgilcqDSRZMQJNAS5437-96-42 08:47:00 Test Item Value Reference Range Interpretation Comments Basophils # (test code 0.1 See_Comment [Aut omated message] The = Basophils #) system which generated this result tra nsmitted reference range : <=0.2. The reference r laxmi was not used to int erpret this result as normal/abnormal . [facility] AustinZmdstoeLQYSNAAWZT3643-45-95 08:47:00 Test Item Value Reference Range Interpretation Comments Eosinophils # (test code 0.6 See_Comment [A utomated message] The = Eosinophils #) system whic h generated this result tra nsmitted reference range : <=0.5. The reference r laxmi was not used to int erpret this result as normal/abnormal . [facility] AustinOmyhfkdBLRENEFRWI3622-68-10 08:47:00 Test Item Value Reference Range Interpretation Comments Segs (test code = Segs) 51.9 45.0-75.0 [facility] AustinGqixomcRYCDLZOSUZ6801-31-62 08:47:00 Test Item Value Reference Range Interpretation Comments Lymphocytes (test code = Lymphocytes) 34.9 20.0-40.0 [facility] AustinGwwedlcXMAGSOKQPO3233-11-94 08:47:00 Test Item Value Reference Range Interpretation Comments Basophils (test code = 1.1 See_Comment [Aut omated message] The Basophils) system which ge nerated this result tra nsmitted reference range : <=1.0. The reference r laxmi was not used to int erpret this result as normal/abnormal . [facility] AustinHiryhheGJPAEEGLMD7148-75-60 08:47:00 Test Item Value Reference Range Interpretation Comments Eosinophils (test code = 6.5 See_Comment [A utomated message] The Eosinophils) system which ge nerated this result tra nsmitted reference range : <=4.0. The reference r laxmi was not used to int erpret this result as normal/abnormal . [facility] AustinXkuuxbqZMPRBLZOID7728-93-10 08:47:00 Test Item Value Reference Range Interpretation Comments Segs-Bands # (test code = Segs-Bands #) 4.6 1.5-8.1 [facility] AustinQmmvrmlHZNWGQHMJT6501-00-55 08:47:00 Test Item Value Reference Range Interpretation Comments Monocytes (test code = Monocytes) 5.6 2.0-12.0 [facility] AustinVhyutjzVNJALDQZPD2852-71-21 08:47:00 Test Item Value Reference Range Interpretation Comments Platelet (test code = Platelet) 256 133-450 [facility] AustinUjunzbnKGDNXVHQBU0917-14-99 08:47:00 Test Item Value Reference Range Interpretation Comments MPV (test code = MPV) 9.6 7.4-10.4 [facility] AustinJgemxieOJOVVGNKMW8327-11-78 08:47:00 Test Item Value Reference Range Interpretation Comments MCHC (test code = MCHC) 33.2 32.0-36.0 [facility] AustinJswrnqeRSWTXDDBZU7316-81-00 08:47:00 Test Item Value Reference Range Interpretation Comments RDW (test code = RDW) 14.1 11.5-14.5 [facility] AustinAmmdfdwZWGQGLDKLY5190-11-46 08:47:00 Test Item Value Reference Range Interpretation Comments Hgb (test code = Hgb) 10.8 12.0-16.0 [facility] AustinEoslonlKOFMDNGECW8823-08-92 08:47:00 Test Item Value Reference Range Interpretation Comments Hct (test code = Hct) 32.5 36.0-48.0 [facility] AustinPktndrcFXKEMSXWVV1756-12-76 08:47:00 Test Item Value Reference Range Interpretation Comments MCH (test code = MCH) 30.5 pg 27.0-31.0 [facility] AustinSxdnwscNQLEMUIKAC0467-20-98 08:47:00 Test Item Value Reference Range Interpretation Comments MCV (test code = MCV) 91.8 80.0-98.0 [facility]KSCXZFDMKF2034-90-82 08:47:00 Test Item Value Reference Range Interpretation Comments RBC (test code = RBC) 3.54 4.20-5.40 [facility] HospitalIrevoayCPYFLZTNGY4601-46-68 08:47:00 Test Item Value Reference Range Interpretation Comments WBC (test code = WBC) 8.8 3.7-10.4 [facility] HospitalIonnqpzYADOUIOETO3961-46-13 08:47:00 Test Item Value Reference Range Interpretation Comments PT (test code = PT) 13.3 s 12.0-14.7 [facility] HospitalUkejfggCIPXFPSSCF2413-70-33 08:47:00 Test Item Value Reference Range Interpretation Comments PTT (test code = PTT) 27.9 s 22.9-35.8 [facility] HospitalIjjbybmCXIJPSLWBB5722-90-86 08:47:00 Test Item Value Reference Range Interpretation Comments INR (test code = INR) 1.01 1 0.85-1.17 [facility]PARATHYRO[facility] BBLKVVL4538-51-10 08:47:00 Test Item Value Reference Range Interpretation Comments Ca Norm WB (test code = Ca Norm WB) 1.11 1.05-1.25 [facility]linePARATHYROID GLTAXMM6898-22-76 08:47:00 Test Item Value Reference Range Interpretation Comments Ca Ion WB (test code = Ca Ion WB) 1.10 1.05-1.25 [facility]lineCHEM DSRRG3950-91-36 08:47:00 Test Item Value Reference Range Interpretation Comments Phosphorus (test code = Phosphorus) 4.3 2.5-4.5 [facility]lineCHEM KDSSC4712-87-69 08:47:00 Test Item Value Reference Range Interpretation Comments eGFR (test code = eGFR) 118 [facility]lineCHEM VCSXL5867-22-91 08:47:00 Test Item Value Reference Range Interpretation Comments CO2 (test code = CO2) 23 24-32 [facility] HospitalGkdkaemGINYUGWYTYZJ0921-46-00 00:08:00 Test Item Value Reference Range Interpretation Comments Potassium Lvl (test code = Potassium 3.8 3.5-5.1 Lvl) [facility]lineBACTERIAL - NLXMTYHB0824-65-48 19:01:00 Test Item Value Reference Range Interpretation Comments MRSA by PCR (test Negative (09/21/17 2:01 code = MRSA by PCR) PM) [facility] FVWJAWWQU3160-15-34 19:01:00 Test Item Value Reference Range Interpretation Comments Hgb A1C (test code = Hgb A1C) 13.6 [facility] HospitalMvmirkmYODOZDBBLWAF8697-17-83 12:09:00 Test Item Value Reference Range Interpretation Comments Potassium Lvl (test code = Potassium 3.5 3.5-5.1 Lvl) [facility] HospitalAirPOS FWBNXVJ3010-01-16 05:03:00 Test Item Value Reference Range Interpretation Comments Antibody Scrn (test Negative (09/21/17 code = Antibody Scrn) 12:03 AM) [facility] [employer] MQZONGY0229-89-35 05:03:00 Test Item Value Reference Range Interpretation Comments ABO/Rh (test code = ABO/Rh) O POS [facility] [employer] [id number] 05:03:00 Test Item Value Reference Range Interpretation Comments Phosphorus (test code = Phosphorus) 3.2 2.5-4.5 [facility] [employer]2018-05-31 05:03:00 Test Item Value Reference Range Interpretation Comments Lactic Acid Lvl (test code = Lactic 1.3 0.5-2.2 Acid Lvl) [facility] [employer] [id number] 05:03:00 Test Item Value Reference Range Interpretation Comments Magnesium Lvl (test code = Magnesium 1.7 1.8-2.4 Lvl) [facility] [employer] KKZQY4463-10-77 05:03:00 Test Item Value Reference Range Interpretation Comments eGFR (test code = eGFR) 118 [facility] [employer] CURGY9226-95-77 05:03:00 Test Item Value Reference Range Interpretation Comments CO2 (test code = CO2) 27 24-32 [facility] [employer] LKOXA7162-14-68 05:03:00 Test Item Value Reference Range Interpretation Comments Chloride Lvl (test code = Chloride Lvl) 106 95-109 [facility] [employer] GFLUC5950-71-02 05:03:00 Test Item Value Reference Range Interpretation Comments Calcium Lvl (test code = Calcium Lvl) 8.7 8.5-10.5 [facility] HospitalVocent QYGDF1228-59-00 05:03:00 Test Item Value Reference Range Interpretation Comments AGAP (test code = AGAP) 13.2 10.0-20.0 [facility] [employer] [id number] 05:03:00 Test Item Value Reference Range Interpretation Comments Glucose Lvl (test code = Glucose Lvl) 264 70-99 [facility]2018-05-31 05:03:00 Test Item Value Reference Range Interpretation Comments Creatinine Lvl (test code = Creatinine 0.69 0.50-1.40 Lvl) [facility]2018-05-31 05:03:00 Test Item Value Reference Range Interpretation Comments BUN (test code = BUN) 11 7-22 [facility]2018-05-31 05:03:00 Test Item Value Reference Range Interpretation Comments Sodium Lvl (test code = Sodium Lvl) 143 135-145 [facility] AustinUsgqajuYLDUINYGXA8125-26-37 05:03:00 Test Item Value Reference Range Interpretation Comments Monocytes # (test code 0.4 See_Comment [Aut omated message] The = Monocytes #) system which generated this result tra nsmitted reference range : <=0.8. The reference r laxmi was not used to int erpret this result as normal/abnormal . [facility] AustinIxfcqcrZPUAWLEBUB4914-95-49 05:03:00 Test Item Value Reference Range Interpretation Comments Lymphocytes # (test code = Lymphocytes 3.3 1.0-5.5 #) [facility] AustinDfrkjznTWFJYZKGTQ5129-60-80 05:03:00 Test Item Value Reference Range Interpretation Comments Basophils # (test code 0.1 See_Comment [Aut omated message] The = Basophils #) system which generated this result tra nsmitted reference range : <=0.2. The reference r laxmi was not used to int erpret this result as normal/abnormal . [facility] AustinAstdexrABOODCMXOO1871-58-66 05:03:00 Test Item Value Reference Range Interpretation Comments Eosinophils # (test code 0.5 See_Comment [A utomated message] The = Eosinophils #) system whic h generated this result tra nsmitted reference range : <=0.5. The reference r laxmi was not used to int erpret this result as normal/abnormal . [facility] AustinPckxtytYLSOULWNHJ0587-12-16 05:03:00 Test Item Value Reference Range Interpretation Comments Segs-Bands # (test code = Segs-Bands #) 5.3 1.5-8.1 [facility] AustinMbozzgaNVMZVBWBLT6808-60-76 05:03:00 Test Item Value Reference Range Interpretation Comments Lymphocytes (test code = Lymphocytes) 34.3 20.0-40.0 [facility] AustinYsnmrvdHGKVFJYTAS0658-36-96 05:03:00 Test Item Value Reference Range Interpretation Comments Monocytes (test code = Monocytes) 4.5 2.0-12.0 [facility] AustinPpygiqlGMLFBWXZRH5383-71-34 05:03:00 Test Item Value Reference Range Interpretation Comments Eosinophils (test code = 5.0 See_Comment [A utomated message] The Eosinophils) system which ge nerated this result tra nsmitted reference range : <=4.0. The reference r laxmi was not used to int erpret this result as normal/abnormal . [facility] AustinKvaaqgoRIEEVEGUAB9728-73-22 05:03:00 Test Item Value Reference Range Interpretation Comments Basophils (test code = 0.8 See_Comment [Aut omated message] The Basophils) system which ge nerated this result tra nsmitted reference range : <=1.0. The reference r laxmi was not used to int erpret this result as normal/abnormal . [facility] AustinXfrrmzyVIFSZQKBQX4954-45-61 05:03:00 Test Item Value Reference Range Interpretation Comments Segs (test code = Segs) 55.4 45.0-75.0 [facility] AustinUeujnlcVKBMNJVDZB7447-42-48 05:03:00 Test Item Value Reference Range Interpretation Comments PTT (test code = PTT) 24.1 s 22.9-35.8 [facility] AustinHgfzaagHWLOYREFAI1553-32-86 05:03:00 Test Item Value Reference Range Interpretation Comments PT (test code = PT) 12.8 s 12.0-14.7 [facility] AustinMjuggbdIMRRCENUJB0110-30-91 05:03:00 Test Item Value Reference Range Interpretation Comments INR (test code = INR) 0.96 1 0.85-1.17 [facility] AustinYyixgsfDTRXYNZERL3917-80-28 05:03:00 Test Item Value Reference Range Interpretation Comments MCV (test code = MCV) 89.4 80.0-98.0 [facility] AustinQswuffyLFETDKOZMR4984-00-81 05:03:00 Test Item Value Reference Range Interpretation Comments MCH (test code = MCH) 30.5 pg 27.0-31.0 [facility] AustinHsqypwdQTYQTCJTUJ6804-91-74 05:03:00 Test Item Value Reference Range Interpretation Comments Hgb (test code = Hgb) 11.2 12.0-16.0 [facility] AustinHwquneuUQWNSDEITN4465-55-36 05:03:00 Test Item Value Reference Range Interpretation Comments Hct (test code = Hct) 32.9 36.0-48.0 [facility] AustinAzktejgEGIOHOPUBL5556-06-72 05:03:00 Test Item Value Reference Range Interpretation Comments RDW (test code = RDW) 13.5 11.5-14.5 [facility] AustinLkvniejAUYAKXTKGG2274-34-32 05:03:00 Test Item Value Reference Range Interpretation Comments Platelet (test code = Platelet) 263 133-450 [facility] AustinMqjrjveOOFVVYZWRT9958-51-42 05:03:00 Test Item Value Reference Range Interpretation Comments MCHC (test code = MCHC) 34.2 32.0-36.0 [facility] AustinXnvqwywMVUSCEYBJR2319-86-68 05:03:00 Test Item Value Reference Range Interpretation Comments MPV (test code = MPV) 10.2 7.4-10.4 [facility] AustinUekcymrZQQDTVEURK7237-45-57 05:03:00 Test Item Value Reference Range Interpretation Comments RBC (test code = RBC) 3.68 4.20-5.40 [facility] AustinKfsruvcLAUPMYBMLM3643-91-44 05:03:00 Test Item Value Reference Range Interpretation Comments WBC (test code = WBC) 9.6 3.7-10.4 [facility] AustinGardcriSSCZXZMWSD4314-99-74 05:03:00 Test Item Value Reference Range Interpretation Comments Sed Rate (test code = 47 See_Comment [Auto mated message] The Sed Rate) system which ge nerated this result transmit irma reference range : <=20. The reference range was not used to interpr et this result as gabi l/abnormal. [facility]lineHwtjwnpEIMNSQJIGX7286-16-98 05:03:00 Test Item Value Reference Range Interpretation Comments C-REACTIVE PROTEIN (test code = 7.4 C-REACTIVE PROTEIN) [facility] ShorelinePARATHYROID NKKLTXQ1283-90-20 05:03:00 Test Item Value Reference Range Interpretation Comments Ca Ion WB (test code = Ca Ion WB) 1.09 1.05-1.25 [facility] ShorelinePARATHYROID JJZTTQX8890-71-09 05:03:00 Test Item Value Reference Range Interpretation Comments Ca Norm WB (test code = Ca Norm WB) 1.14 1.05-1.25 [facility] ShorelineTeiovftQWWYBVJLTT4334-02-94 23:42:00 Test Item Value Reference Range Interpretation Comments INR (test code = INR) 0.87 1 0.85-1.17 [facility] ShorelinePwjyojzMRQDOOOKUI1706-82-72 23:42:00 Test Item Value Reference Range Interpretation Comments PT (test code = PT) 11.8 s 12.0-14.7 [facility] HospitalAmrfczrGYXXTGMGDZ3178-35-32 23:42:00 Test Item Value Reference Range Interpretation Comments PTT (test code = PTT) 24.1 s 22.9-35.8 [facility] HospitalvitaMedMD2018-05-30 21:42:00 Test Item Value Reference Range Interpretation Comments Troponin-I (test code no gt See_Comment [Auto mated message] The = Troponin-I) system which g enerated this result transmit irma reference range : <=0.40. The reference r laxmi was not used to interpr et this result as gabi l/abnormal. [facility] HospitalvitaMedMD2018-05-30 21:42:00 Test Item Value Reference Range Interpretation Comments Total CK (test code = Total CK) 109 12-191 [facility] ShorelineDynamo MediaFRDVTUD7172-29-29 21:42:00 Test Item Value Reference Range Interpretation Comments CK MB (test code = CK MB) no gt 0.5-3.6 [facility] HospitalvitaMedMD2018-05-30 21:42:00 Test Item Value Reference Range Interpretation Comments CK MB Index (test no gt See_Comment [Automate d message] The code = CK MB Index) system w [facility] generated this result transmit irma reference range : <=2.5. The reference range was not used to interpr et this result as gabi l/abnormal. [facility] [employer]2018-05-30 21:42:00 Test Item Value Reference Range Interpretation Comments eGFR (test code = eGFR) 61 [facility] [employer]2018-05-30 21:42:00 Test Item Value Reference Range Interpretation Comments Sodium Lvl (test code = Sodium Lvl) 134 135-145 [facility] HospitalPeerAppWUROK1331-64-05 21:42:00 Test Item Value Reference Range Interpretation Comments Potassium Lvl (test code = Potassium 4.1 3.5-5.1 Lvl) [facility] HospitalPeerAppEKVNA9589-90-91 21:42:00 Test Item Value Reference Range Interpretation Comments Chloride Lvl (test code = Chloride Lvl) 100 95-109 [facility]2018-05-30 21:42:00 Test Item Value Reference Range Interpretation Comments Bili Total (test code = Bili Total) 0.2 0.2-1.3 [facility]2018-05-30 21:42:00 Test Item Value Reference Range Interpretation Comments Alk Phos (test code = Alk Phos) 123 39-136 [facility]2018-05-30 21:42:00 Test Item Value Reference Range Interpretation Comments Creatinine Lvl (test code = Creatinine 1.20 0.50-1.40 Lvl) [facility]2018-05-30 21:42:00 Test Item Value Reference Range Interpretation Comments BUN (test code = BUN) 10 7-22 [facility]2018-05-30 21:42:00 Test Item Value Reference Range Interpretation Comments CO2 (test code = CO2) 25 24-32 [facility]2018-05-30 21:42:00 Test Item Value Reference Range Interpretation Comments Glucose Lvl (test code = Glucose Lvl) 579 70-99 [facility]2018-05-30 21:42:00 Test Item Value Reference Range Interpretation Comments Albumin Lvl (test code = Albumin Lvl) 3.0 3.5-5.0 [facility]2018-05-30 21:42:00 Test Item Value Reference Range Interpretation Comments Calcium Lvl (test code = Calcium Lvl) 8.1 8.5-10.5 [facility]2018-05-30 21:42:00 Test Item Value Reference Range Interpretation Comments B/C Ratio (test code = B/C Ratio) 8 1 6-25 [facility]2018-05-30 21:42:00 Test Item Value Reference Range Interpretation Comments Total Protein (test code = Total 6.7 6.4-8.4 Protein) [facility]2018-05-30 21:42:00 Test Item Value Reference Range Interpretation Comments AGAP (test code = AGAP) 13.1 10.0-20.0 [facility]2018-05-30 21:42:00 Test Item Value Reference Range Interpretation Comments AST (test code = AST) 26 See_Comment [Auto mated message] The system which ge nerated this result transmit irma reference range : <=37. The reference range was not used to interpr et this result as gabi l/abnormal. [facility] ShorelineCorcept Therapeutics ZMZFQ6321-74-89 21:42:00 Test Item Value Reference Range Interpretation Comments Globulin (test code = Globulin) 3.7 2.7-4.2 [facility]2018-05-30 21:42:00 Test Item Value Reference Range Interpretation Comments ALT (test code = ALT) 28 See_Comment [Auto mated message] The system which ge nerated this result transmit irma reference range : <=65. The reference range was not used to interpr et this result as gabi l/abnormal. [facility]lineCor[facility] Therapeutics [id number] 21:42:00 Test Item Value Reference Range Interpretation Comments A/G Ratio (test code = A/G Ratio) 0.8 1 0.7-1.6 [facility] AustinTdrhsicCLWXOMZSWS2518-71-32 21:42:00 Test Item Value Reference Range Interpretation Comments MPV (test code = MPV) 10.3 7.4-10.4 [facility] AustinKuvisgmLITPEVTKUX7775-85-02 21:42:00 Test Item Value Reference Range Interpretation Comments RDW (test code = RDW) 14.0 11.5-14.5 [facility] AustinQxwjtsqFGFRXBJPOU8209-21-34 21:42:00 Test Item Value Reference Range Interpretation Comments MCH (test code = MCH) 30.9 pg 27.0-31.0 [facility] AustinTaafeayNUQUNFIWUQ0522-15-52 21:42:00 Test Item Value Reference Range Interpretation Comments Platelet (test code = Platelet) 267 133-450 [facility] AustinZwtfvbzNEKXQBPPLA1951-17-07 21:42:00 Test Item Value Reference Range Interpretation Comments Hct (test code = Hct) 34.0 36.0-48.0 [facility] AustinKsbencmEKMDQELOPX0966-58-45 21:42:00 Test Item Value Reference Range Interpretation Comments MCHC (test code = MCHC) 34.1 32.0-36.0 [facility] AustinQvhnuocRIFVGTHQYB8119-90-90 21:42:00 Test Item Value Reference Range Interpretation Comments MCV (test code = MCV) 90.5 80.0-98.0 [facility] AustinDpmyffjENQEDEPCRH4186-34-47 21:42:00 Test Item Value Reference Range Interpretation Comments Hgb (test code = Hgb) 11.6 12.0-16.0 [facility] AustinJlgwbefHRUFXZPNXL3976-13-01 21:42:00 Test Item Value Reference Range Interpretation Comments RBC (test code = RBC) 3.76 4.20-5.40 [facility] AustinYlikaqsKJYDIIETSH6442-41-58 21:42:00 Test Item Value Reference Range Interpretation Comments WBC (test code = WBC) 9.8 3.7-10.4 [facility] AustinNdkhgygEJTFWPCENG1700-09-88 21:42:00 Test Item Value Reference Range Interpretation Comments Eosinophils # (test code 0.4 See_Comment [A utomated message] The = Eosinophils #) system whic h generated this result tra nsmitted reference range : <=0.5. The reference r laxmi was not used to int erpret this result as normal/abnormal . [facility] AustinCubdacuNIXTUQQGEY5587-25-47 21:42:00 Test Item Value Reference Range Interpretation Comments Basophils # (test code 0.1 See_Comment [Aut omated message] The = Basophils #) system which generated this result tra nsmitted reference range : <=0.2. The reference r laxmi was not used to int erpret this result as normal/abnormal . [facility] AustinQmmtdctKEQIUCGZRL9387-95-53 21:42:00 Test Item Value Reference Range Interpretation Comments Monocytes # (test code 0.5 See_Comment [Aut omated message] The = Monocytes #) system which generated this result tra nsmitted reference range : <=0.8. The reference r laxmi was not used to int erpret this result as normal/abnormal . [facility] AustinZaqszxhEYHGPGCUJL2748-00-61 21:42:00 Test Item Value Reference Range Interpretation Comments Lymphocytes # (test code = Lymphocytes 2.2 1.0-5.5 #) [facility] AustinTqrfcstDTKWAFLVFX5547-52-82 21:42:00 Test Item Value Reference Range Interpretation Comments Eosinophils (test code = 4.3 See_Comment [A utomated message] The Eosinophils) system which ge nerated this result tra nsmitted reference range : <=4.0. The reference r laxmi was not used to int erpret this result as normal/abnormal . [facility] AustinOzlxuwmPPQOAOLARN1667-54-65 21:42:00 Test Item Value Reference Range Interpretation Comments Basophils (test code = 0.7 See_Comment [Aut omated message] The Basophils) system which ge nerated this result tra nsmitted reference range : <=1.0. The reference r laxmi was not used to int erpret this result as normal/abnormal . [facility] AustinXyjotoeFNGFXJUYQT3274-15-53 21:42:00 Test Item Value Reference Range Interpretation Comments Segs-Bands # (test code = Segs-Bands #) 6.6 1.5-8.1 [facility] AustinVquezsdELNRLUHTXV9483-55-93 21:42:00 Test Item Value Reference Range Interpretation Comments Monocytes (test code = Monocytes) 5.0 2.0-12.0 [facility] AustinPdhwyykOMCLTWADMS5328-82-35 21:42:00 Test Item Value Reference Range Interpretation Comments Segs (test code = Segs) 67.3 45.0-75.0 [facility] AustinPvnpnbsUMVZHZZGVK0082-28-52 21:42:00 Test Item Value Reference Range Interpretation Comments Lymphocytes (test code = Lymphocytes) 22.7 20.0-40.0 [facility] AND TROMY8970-07-21 21:42:00 Test Item Value Reference Range Interpretation Comments UA RBC (test code = 1 See_Comment [Automa irma message] The UA RBC) system which ge nerated this result transmit irma reference range : <=2. The reference range was not used to interpr et this result as gabi l/abnormal. [facility] AND UTVQO4503-34-70 21:42:00 Test Item Value Reference Range Interpretation Comments UA Color (test code = UA Color) Colorless [facility] AND RLVYO5876-75-74 21:42:00 Test Item Value Reference Range Interpretation Comments UA Urobilinogen (test code = UA <=1.0 mg/dL 0.1-1.0 Urobilinogen) [facility] AND EVBXL7851-78-44 21:42:00 Test Item Value Reference Range Interpretation Comments UA Leuk Est (test Negative (09/20/17 4:42 code = UA Leuk Est) PM) [facility] AND [id number] 21:42:00 Test Item Value Reference Range Interpretation Comments UA Blood (test code = Negative (09/20/17 4:42 UA Blood) PM) [facility] AND [id number] 21:42:00 Test Item Value Reference Range Interpretation Comments UA Nitrite (test code Negative (09/20/17 4:42 = UA Nitrite) PM) [facility] AND [id number] 21:42:00 Test Item Value Reference Range Interpretation Comments UA Sq Epi (test code = UA Sq Occasional /LPF Epi) [facility] AND [id number] 21:42:00 Test Item Value Reference Range Interpretation Comments UA WBC (test code = no gt See_Comment [Automa irma message] The UA WBC) system which ge nerated this result transmit irma reference range : <=5. The reference range was not used to interpr et this result as gabi l/abnormal. [facility] AND [id number] 21:42:00 Test Item Value Reference Range Interpretation Comments UA Turbidity (test code = Clear (09/20/17 4:42 UA Turbidity) PM) [facility] AND [id number] 21:42:00 Test Item Value Reference Range Interpretation Comments UA Spec Grav (test code = UA Spec 1.026 1 Grav) [facility] AND [id number] 21:42:00 Test Item Value Reference Range Interpretation Comments UA pH (test code = UA pH) 5.0 1 5.0-8.0 [facility] AND [id number] 21:42:00 Test Item Value Reference Range Interpretation Comments UA Protein (test code = UA Negative mg/dL Protein) [facility] AND [id number] 21:42:00 Test Item Value Reference Range Interpretation Comments UA Bili (test code = Negative *NA*(09/20/17 UA Bili) 4:42 PM) [facility] AND [id number] 21:42:00 Test Item Value Reference Range Interpretation Comments UA Glucose (test code = UA Glucose) 500 mg/dL [facility] AND [id number] 21:42:00 Test Item Value Reference Range Interpretation Comments UA Ketones (test code = UA Negative mg/dL Ketones) [facility]77[facility] 08:21:00 Test Item Value Reference Range Interpretation Comments AGAP (test code = AGAP) 10.7 10.0-20.0 [facility]LnoznjsZRPDKNPDPZPC8441-18-81 08:21:00 Test Item Value Reference Range Interpretation Comments eGFR (test code = eGFR) 96 [facility] HospitalTrnuetfYFQJDNFDLJJQ8271-68-28 08:21:00 Test Item Value Reference Range Interpretation Comments BUN (test code = BUN) 14 7-22 [facility] HospitalWholdqfGPMOSNDGMTJQ6462-98-12 08:21:00 Test Item Value Reference Range Interpretation Comments Glucose Lvl (test code = Glucose Lvl) 379 70-99 [facility] HospitalMaudahfNOGBHYARIFWE5191-55-38 08:21:00 Test Item Value Reference Range Interpretation Comments Creatinine Lvl (test code = Creatinine 0.83 0.50-1.40 Lvl) [facility] HospitalQcorykuAAXUHOQJEGPU0542-31-66 08:21:00 Test Item Value Reference Range Interpretation Comments Calcium Lvl (test code = Calcium Lvl) 9.1 8.5-10.5 [facility] HospitalOzakrywVPTUYBIXQJXU7713-92-21 08:21:00 Test Item Value Reference Range Interpretation Comments CO2 (test code = CO2) 30 24-32 [facility] HospitalJmelstlAKEQGHNDXSDF9163-61-01 08:21:00 Test Item Value Reference Range Interpretation Comments Chloride Lvl (test code = Chloride Lvl) 100 95-109 [facility] HospitalZdvzyznZLYNUWLUWYOM3307-59-58 08:21:00 Test Item Value Reference Range Interpretation Comments Potassium Lvl (test code = Potassium 3.7 3.5-5.1 Lvl) [facility] HospitalRwkjjqnPDIURNRVMUYD8945-87-12 08:21:00 Test Item Value Reference Range Interpretation Comments Sodium Lvl (test code = Sodium Lvl) 137 135-145 [facility]WgbxbfhXWBLJYVLZK3291-76-46 08:21:00 Test Item Value Reference Range Interpretation Comments Lymphocytes (test code = Lymphocytes) 32.2 20.0-40.0 [facility] AustinPzpfxhgEUGDBJQRAC7687-52-38 08:21:00 Test Item Value Reference Range Interpretation Comments Segs-Bands # (test code = Segs-Bands #) 6.1 1.5-8.1 [facility] AustinLmfuwkiFYOMFFPQJY5981-13-96 08:21:00 Test Item Value Reference Range Interpretation Comments Eosinophils (test code = 2.8 See_Comment [A utomated message] The Eosinophils) system which ge nerated this result tra nsmitted reference range : <=4.0. The reference r laxmi was not used to int erpret this result as normal/abnormal . [facility] AustinSiglqomJFZAKYHJBJ8766-44-79 08:21:00 Test Item Value Reference Range Interpretation Comments Monocytes (test code = Monocytes) 7.0 2.0-12.0 [facility] AustinLpjgifgIEMHQYJVIX9546-85-11 08:21:00 Test Item Value Reference Range Interpretation Comments Segs (test code = Segs) 57.3 45.0-75.0 [facility] AustinRgtoioyLAEBFLCCVM8990-08-53 08:21:00 Test Item Value Reference Range Interpretation Comments Basophils # (test code 0.1 See_Comment [Aut omated message] The = Basophils #) system which generated this result tra nsmitted reference range : <=0.2. The reference r laxmi was not used to int erpret this result as normal/abnormal . [facility] AustinNankidzGEPGXXJFTY9372-54-67 08:21:00 Test Item Value Reference Range Interpretation Comments Lymphocytes # (test code = Lymphocytes 3.4 1.0-5.5 #) [facility] AustinJbawkyiSDMNRQYSPD9773-08-92 08:21:00 Test Item Value Reference Range Interpretation Comments Monocytes # (test code 0.8 See_Comment [Aut omated message] The = Monocytes #) system which generated this result tra nsmitted reference range : <=0.8. The reference r laxmi was not used to int erpret this result as normal/abnormal . [facility] AustinBktndagKRGKQVGXBF5226-61-28 08:21:00 Test Item Value Reference Range Interpretation Comments Basophils (test code = 0.7 See_Comment [Aut omated message] The Basophils) system which ge nerated this result tra nsmitted reference range : <=1.0. The reference r laxmi was not used to int erpret this result as normal/abnormal . [facility] AustinOxaiwbeMKOKLDATOM4425-37-41 08:21:00 Test Item Value Reference Range Interpretation Comments Eosinophils # (test code 0.3 See_Comment [A utomated message] The = Eosinophils #) system whic h generated this result tra nsmitted reference range : <=0.5. The reference r laxmi was not used to int erpret this result as normal/abnormal . [facility] AustinLtdkjgyYTCVYOUMHX7183-19-06 08:21:00 Test Item Value Reference Range Interpretation Comments RDW (test code = RDW) 13.7 11.5-14.5 [facility]gujbwpPCBSUPRRAV5506-07-34 08:21:00 Test Item Value Reference Range Interpretation Comments Platelet (test code = Platelet) 283 133-450 [facility] HospitalIcbvdmzPYFSYQBCRR6016-19-23 08:21:00 Test Item Value Reference Range Interpretation Comments MPV (test code = MPV) 10.4 7.4-10.4 [facility] AustinIsalkdnBDDGFELQLD7135-69-21 08:21:00 Test Item Value Reference Range Interpretation Comments Hgb (test code = Hgb) 12.8 12.0-16.0 [facility] AustinDylwimvBTHJWJCRII1894-96-16 08:21:00 Test Item Value Reference Range Interpretation Comments MCV (test code = MCV) 89.5 80.0-98.0 [facility]LcvrznkSOOMPZWRHM5857-06-07 08:21:00 Test Item Value Reference Range Interpretation Comments Hct (test code = Hct) 38.5 36.0-48.0 [facility] HospitalBgkufzvPMMEUWKIBL7153-46-75 08:21:00 Test Item Value Reference Range Interpretation Comments MCH (test code = MCH) 29.8 pg 27.0-31.0 [facility] AustinAfkxyimIKOILFLGVR2313-44-20 08:21:00 Test Item Value Reference Range Interpretation Comments MCHC (test code = MCHC) 33.3 32.0-36.0 [facility] HospitalRpeppuhYUZWRWNODJ0712-96-01 08:21:00 Test Item Value Reference Range Interpretation Comments RBC (test code = RBC) 4.30 4.20-5.40 [facility] HospitalUvwhyigTREXGPFJOA6888-11-49 08:21:00 Test Item Value Reference Range Interpretation Comments WBC (test code = WBC) 10.7 3.7-10.4 [facility] NBRDJGI0860-62-04 08:15:00 Test Item Value Reference Range Interpretation Comments CK MB Index (test no gt See_Comment [Automate d message] The code = CK MB Index) system w [facility] generated this result transmit irma reference range : <=2.5. The reference range was not used to interpr et this result as gabi l/abnormal. [facility] WLDVIGX9988-50-74 08:15:00 Test Item Value Reference Range Interpretation Comments CK MB (test code = CK MB) no gt 0.5-3.6 [facility] HHEIAWO5206-34-15 08:15:00 Test Item Value Reference Range Interpretation Comments Total CK (test code = Total CK) 138 12-191 [facility] VODDPHQ5853-62-46 08:15:00 Test Item Value Reference Range Interpretation Comments Troponin-I (test code no gt See_Comment [Auto mated message] The = Troponin-I) system which g enerated this result transmit irma reference range : <=0.40. The reference r laxmi was not used to interpr et this result as gabi l/abnormal. [facility] YARNXRX1575-09-65 03:28:00 Test Item Value Reference Range Interpretation Comments CK MB (test code = CK MB) no gt 0.5-3.6 [facility] BFRARHJ1142-24-62 03:28:00 Test Item Value Reference Range Interpretation Comments CK MB Index (test no gt See_Comment [Automate d message] The code = CK MB Index) system w [facility] generated this result transmit irma reference range : <=2.5. The reference range was not used to interpr et this result as gabi l/abnormal. [facility] YGKKGLW0661-16-61 03:28:00 Test Item Value Reference Range Interpretation Comments Total CK (test code = Total CK) 139 12-191 [facility] XHBGBCY0772-65-25 03:28:00 Test Item Value Reference Range Interpretation Comments Troponin-I (test code no gt See_Comment [Auto mated message] The = Troponin-I) system which g enerated this result transmit irma reference range : <=0.40. The reference r laxmi was not used to interpr et this result as gabi l/abnormal. [facility] HospitalIyxiyjxMCQCIR6691-65-40 03:28:00 Test Item Value Reference Range Interpretation Comments VLDL (test code = VLDL) 62 1 [facility] HospitalFrffdrmGJXEYY3519-22-79 03:28:00 Test Item Value Reference Range Interpretation Comments LDL (Calculated) (test code = LDL 194 (Calculated)) [facility] HospitalNhygdqmGHIOAH9449-91-17 03:28:00 Test Item Value Reference Range Interpretation Comments HDL (test code = HDL) 42 [facility] HospitalCdbjjyqFYTAXH5732-63-85 03:28:00 Test Item Value Reference Range Interpretation Comments CHD Risk (test code = CHD Risk) 7.10 1 3.90-5.80 [facility] TnqxgmhTMZYON4306-00-82 03:28:00 Test Item Value Reference Range Interpretation Comments Trig (test code = Trig) 309 [facility] ItrloysODYCZF4928-04-73 03:28:00 Test Item Value Reference Range Interpretation Comments Chol (test code = Chol) 298 [facility] [employer]2018-05-08 20:49:00 Test Item Value Reference Range Interpretation Comments CK MB Index (test no gt See_Comment [Automate d message] The code = CK MB Index) system w [facility] generated this result transmit irma reference range : <=2.5. The reference range was not used to interpr et this result as gbai l/abnormal. [facility] [employer]2018-05-08 20:49:00 Test Item Value Reference Range Interpretation Comments Total CK (test code = Total CK) 164 12-191 [facility] [employer]2018-05-08 20:49:00 Test Item Value Reference Range Interpretation Comments CK MB (test code = CK MB) no gt 0.5-3.6 [facility] [employer]2018-05-08 20:49:00 Test Item Value Reference Range Interpretation Comments Troponin-I (test code no gt See_Comment [Auto mated message] The = Troponin-I) system which g enerated this result transmit irma reference range : <=0.40. The reference r laxmi was not used to interpr et this result as gabi l/abnormal. [address]2018-05-08 20:49:00 Test Item Value Reference Range Interpretation Comments eGFR (test code = eGFR) 74 [facility] [employer]2018-05-08 20:49:00 Test Item Value Reference Range Interpretation Comments Alk Phos (test code = Alk Phos) 158 39-136 [facility] [employer]2018-05-08 20:49:00 Test Item Value Reference Range Interpretation Comments AST (test code = AST) 11 See_Comment [Auto mated message] The system which ge nerated this result transmit irma reference range : <=37. The reference range was not used to interpr et this result as gabi l/abnormal. [address]2018-05-08 20:49:00 Test Item Value Reference Range Interpretation Comments Bili Total (test code = Bili Total) 0.2 0.2-1.3 [facility]2018-05-08 20:49:00 Test Item Value Reference Range Interpretation Comments Chloride Lvl (test code = Chloride Lvl) 99 95-109 [facility]2018-05-08 20:49:00 Test Item Value Reference Range Interpretation Comments Potassium Lvl (test code = Potassium 3.9 3.5-5.1 Lvl) [facility]2018-05-08 20:49:00 Test Item Value Reference Range Interpretation Comments Sodium Lvl (test code = Sodium Lvl) 134 135-145 [facility]2018-05-08 20:49:00 Test Item Value Reference Range Interpretation Comments Creatinine Lvl (test code = Creatinine 1.03 0.50-1.40 Lvl) [facility]2018-05-08 20:49:00 Test Item Value Reference Range Interpretation Comments AGAP (test code = AGAP) 13.9 10.0-20.0 [facility]2018-05-08 20:49:00 Test Item Value Reference Range Interpretation Comments CO2 (test code = CO2) 25 24-32 [facility]2018-05-08 20:49:00 Test Item Value Reference Range Interpretation Comments BUN (test code = BUN) 11 7-22 [facility]2018-05-08 20:49:00 Test Item Value Reference Range Interpretation Comments Glucose Lvl (test code = Glucose Lvl) 481 70-99 [facility]2018-05-08 20:49:00 Test Item Value Reference Range Interpretation Comments Globulin (test code = Globulin) 4.6 2.7-4.2 [facility]2018-05-08 20:49:00 Test Item Value Reference Range Interpretation Comments Albumin Lvl (test code = Albumin Lvl) 3.7 3.5-5.0 [facility]2018-05-08 20:49:00 Test Item Value Reference Range Interpretation Comments ALT (test code = ALT) 27 See_Comment [Auto mated message] The system which ge nerated this result transmit irma reference range : <=65. The reference range was not used to interpr et this result as gabi l/abnormal. [facility]2018-05-08 20:49:00 Test Item Value Reference Range Interpretation Comments A/G Ratio (test code = A/G Ratio) 0.8 1 0.7-1.6 [facility]2018-05-08 20:49:00 Test Item Value Reference Range Interpretation Comments Calcium Lvl (test code = Calcium Lvl) 9.4 8.5-10.5 [facility]2018-05-08 20:49:00 Test Item Value Reference Range Interpretation Comments Total Protein (test code = Total 8.3 6.4-8.4 Protein) [facility]2018-05-08 20:49:00 Test Item Value Reference Range Interpretation Comments B/C Ratio (test code = B/C Ratio) 11 1 6-25 [facility] AustinTlxvknpWYJKIMWTUF4156-36-67 20:49:00 Test Item Value Reference Range Interpretation Comments Basophils # (test code 0.1 See_Comment [Aut omated message] The = Basophils #) system which generated this result tra nsmitted reference range : <=0.2. The reference r laxmi was not used to int erpret this result as normal/abnormal . [facility] AustinVfabgzhAKRKZMTDSF5283-92-79 20:49:00 Test Item Value Reference Range Interpretation Comments Eosinophils # (test code 0.2 See_Comment [A utomated message] The = Eosinophils #) system whic h generated this result tra nsmitted reference range : <=0.5. The reference r laxmi was not used to int erpret this result as normal/abnormal . [facility] AustinNwomsntZSIOPJPNSL7196-49-75 20:49:00 Test Item Value Reference Range Interpretation Comments Monocytes (test code = Monocytes) 6.4 2.0-12.0 [facility] AustinQwdnutxRHOWABXNUW8520-88-78 20:49:00 Test Item Value Reference Range Interpretation Comments Lymphocytes (test code = Lymphocytes) 25.1 20.0-40.0 [facility] AustinQosjkiuCVYPHXWHKM3614-50-61 20:49:00 Test Item Value Reference Range Interpretation Comments Segs-Bands # (test code = Segs-Bands #) 6.5 1.5-8.1 [facility] AustinLllnzgdGFCUOZGWDP8722-72-52 20:49:00 Test Item Value Reference Range Interpretation Comments Monocytes # (test code 0.6 See_Comment [Aut omated message] The = Monocytes #) system which generated this result tra nsmitted reference range : <=0.8. The reference r laxmi was not used to int erpret this result as normal/abnormal . [facility] AustinQpoevklWLDDKAMWJA0953-92-20 20:49:00 Test Item Value Reference Range Interpretation Comments Basophils (test code = 0.9 See_Comment [Aut omated message] The Basophils) system which ge nerated this result tra nsmitted reference range : <=1.0. The reference r laxmi was not used to int erpret this result as normal/abnormal . [facility] AustinAoxatuzDHSLGLHCZP2998-58-95 20:49:00 Test Item Value Reference Range Interpretation Comments Eosinophils (test code = 2.1 See_Comment [A utomated message] The Eosinophils) system which ge nerated this result tra nsmitted reference range : <=4.0. The reference r laxmi was not used to int erpret this result as normal/abnormal . [facility] AustinSmmtaysFIZSKZUPPF8115-44-34 20:49:00 Test Item Value Reference Range Interpretation Comments Lymphocytes # (test code = Lymphocytes 2.5 1.0-5.5 #) [facility] AustinEujthooXVROBHQKDP3275-78-62 20:49:00 Test Item Value Reference Range Interpretation Comments Segs (test code = Segs) 65.5 45.0-75.0 [facility] AustinSiehuaqCEGMKXMTTA2421-99-48 20:49:00 Test Item Value Reference Range Interpretation Comments Platelet (test code = Platelet) 282 133-450 [facility] AustinKtxkqvzXZQZKCQEIK2373-75-64 20:49:00 Test Item Value Reference Range Interpretation Comments MCHC (test code = MCHC) 33.2 32.0-36.0 [facility] AustinGebpuqzBKKVGWPKPZ4163-80-57 20:49:00 Test Item Value Reference Range Interpretation Comments MCV (test code = MCV) 89.5 80.0-98.0 [facility] AustinLkhrpmbOCUNAFKZTX4576-95-14 20:49:00 Test Item Value Reference Range Interpretation Comments MCH (test code = MCH) 29.7 pg 27.0-31.0 [facility] AustinNpcwyzjRMKGNKSLYD4344-87-05 20:49:00 Test Item Value Reference Range Interpretation Comments RDW (test code = RDW) 13.7 11.5-14.5 [facility] AustinXjjkdieNROCZWISPK1757-64-78 20:49:00 Test Item Value Reference Range Interpretation Comments MPV (test code = MPV) 10.0 7.4-10.4 [facility] AustinPpdeklcEGYOGFGYMV5006-49-96 20:49:00 Test Item Value Reference Range Interpretation Comments Hct (test code = Hct) 39.4 36.0-48.0 [facility] AustinDcipsyrOPGJHSTOBJ8760-99-15 20:49:00 Test Item Value Reference Range Interpretation Comments WBC (test code = WBC) 9.9 3.7-10.4 [facility] AustinAlhmtztPCBEWHDJDF9215-63-14 20:49:00 Test Item Value Reference Range Interpretation Comments RBC (test code = RBC) 4.40 4.20-5.40 [facility] AustinCdqzqvrMRWRYOBZXB7251-01-13 20:49:00 Test Item Value Reference Range Interpretation Comments Hgb (test code = Hgb) 13.1 12.0-16.0 [facility] QBZJV7689-79-75 14:25:00 Test Item Value Reference Range Interpretation Comments POC-GLUCOSE METER 207 mg/dL 70-110 H TESTED AT [place] [address] ([facility]) (test code = [place] 1538) [id number] POCT-GLUCOSE PVNJW4172-03-38 10:19:00 Test Item Value Reference Range Interpretation Comments POC-GLUCOSE METER 297 mg/dL 70-110 H TESTED AT [place] [address] ([facility]) (test code = [place] 1538) [address] GLUCOSE-STAT [id number] 09:56:00 Test Item Value Reference Range Interpretation Comments GLUCOSE RANDOM (BEAKER) (test code 371 mg/dL 70-110 H = 652) POCT-GLUCOSE [id number] 08:54:00 Test Item Value Reference Range Interpretation Comments POC-GLUCOSE METER 376 mg/dL 70-110 H TESTED AT [place] [address] ([facility]) (test code = YARITZA [place] [facility] 1538) [id number] BASIC METABOLIC [id number] 15:51:00 Test Item Value Reference Range Interpretation Comments SODIUM (BEAKER) 135 meq/L 136-145 L (test code = 381) POTASSIUM (BEAKER) 4.4 meq/L 3.5-5.1 Specimen moderately (test code = 379) hemolyzed CHLORIDE (BEAKER) 101 meq/L 98-107 (test code = 382) CO2 (BEAKER) (test 22 meq/L 22-29 code = 355) BLOOD UREA NITROGEN 7 mg/dL 7-21 (BEAKER) (test code = 354) CREATININE (BEAKER) 0.85 mg/dL 0.57-1.25 Specimen moderately (test code = 358) hemolyzed GLUCOSE RANDOM 338 mg/dL 70-105 H (BEAKER) (test code = 652) CALCIUM (BEAKER) 9.1 mg/dL 8.4-10.2 (test code = 697) EGFR (BEAKER) (test 87 mL/min/1.73 ESTIMA IRMA GFR IS code = 1092) sq m NOT ACCURATE CREATININE CLEARANCE IN PREDICTING GLOMERULAR FILTRATION RATE . ESTIMATED GFR I S NOT APPLICABLE FOR DIALYSIS PATIEN TS. [id number] 14:01:00 Test Item Value Reference Range Interpretation Comments HEMOGLOBIN (BEAKER) (test code = 12.7 GM/DL 11.2-15.7 410) CARDIAC [id number] 14:50:00 Test Item Value Reference Range Interpretation Comments Troponin-I (test code no gt See_Comment [Auto mated message] The = Troponin-I) system which g enerated this result transmit irma reference range : <=0.40. The reference r laxmi was not used to interpr et this result as gabi l/abnormal. [facility] [place] AannCARDIAC HOLCSPB0214-90-99 14:50:00 Test Item Value Reference Range Interpretation Comments Total CK (test code = Total CK) 87 12-191 [facility]annC[facility]AC HOJIAZU5468-28-25 14:50:00 Test Item Value Reference Range Interpretation Comments CK MB Index (test no gt See_Comment [Automate d message] The code = CK MB Index) system w [facility] generated this result transmit irma reference range : <=2.5. The reference range was not used to interpr et this result as gabi l/abnormal. [facility] HermannCARDIAC IYITNYZ4355-14-32 14:50:00 Test Item Value Reference Range Interpretation Comments CK MB (test code = CK MB) no gt 0.5-3.6 [facility] CovacsisCHEM [id number] 14:50:00 Test Item Value Reference Range Interpretation Comments Lipase Lvl (test code = Lipase Lvl) 53 73-393 [facility] [place] AannCHEM PDIPF5221-79-68 14:50:00 Test Item Value Reference Range Interpretation Comments eGFR (test code = eGFR) 119 [facility]2017-04-19 14:50:00 Test Item Value Reference Range Interpretation Comments Bili Total (test code = Bili Total) 0.4 0.2-1.3 [facility]2017-04-19 14:50:00 Test Item Value Reference Range Interpretation Comments AST (test code = AST) 11 See_Comment [Auto mated message] The system which ge nerated this result transmit irma reference range : <=37. The reference range was not used to interpr et this result as gabi l/abnormal. [facility]2017-04-19 14:50:00 Test Item Value Reference Range Interpretation Comments ALT (test code = ALT) 12 See_Comment [Auto mated message] The system which ge nerated this result transmit irma reference range : <=65. The reference range was not used to interpr et this result as gabi l/abnormal. [facility]2017-04-19 14:50:00 Test Item Value Reference Range Interpretation Comments Alk Phos (test code = Alk Phos) 68 39-136 [facility]2017-04-19 14:50:00 Test Item Value Reference Range Interpretation Comments Sodium Lvl (test code = Sodium Lvl) 138 135-145 [facility]2017-04-19 14:50:00 Test Item Value Reference Range Interpretation Comments Potassium Lvl (test code = Potassium 3.5 3.5-5.1 Lvl) [facility]2017-04-19 14:50:00 Test Item Value Reference Range Interpretation Comments CO2 (test code = CO2) 31 24-32 [facility]2017-04-19 14:50:00 Test Item Value Reference Range Interpretation Comments Chloride Lvl (test code = Chloride Lvl) 101 95-109 [facility]2017-04-19 14:50:00 Test Item Value Reference Range Interpretation Comments Glucose Lvl (test code = Glucose Lvl) 232 70-99 [facility]2017-04-19 14:50:00 Test Item Value Reference Range Interpretation Comments BUN (test code = BUN) 5 7-22 [facility]2017-04-19 14:50:00 Test Item Value Reference Range Interpretation Comments Creatinine Lvl (test code = Creatinine 0.69 0.50-1.40 Lvl) [facility]2017-04-19 14:50:00 Test Item Value Reference Range Interpretation Comments Total Protein (test code = Total 8.1 6.4-8.4 Protein) [facility]2017-04-19 14:50:00 Test Item Value Reference Range Interpretation Comments Calcium Lvl (test code = Calcium Lvl) 9.5 8.5-10.5 [facility]2017-04-19 14:50:00 Test Item Value Reference Range Interpretation Comments Albumin Lvl (test code = Albumin Lvl) 3.9 3.5-5.0 [facility]2017-04-19 14:50:00 Test Item Value Reference Range Interpretation Comments A/G Ratio (test code = A/G Ratio) 0.9 0.7-1.6 [facility]2017-04-19 14:50:00 Test Item Value Reference Range Interpretation Comments Globulin (test code = Globulin) 4.2 2.7-4.2 [facility]2017-04-19 14:50:00 Test Item Value Reference Range Interpretation Comments B/C Ratio (test code = B/C Ratio) 7 6-25 [facility]2017-04-19 14:50:00 Test Item Value Reference Range Interpretation Comments AGAP (test code = AGAP) 9.5 10.0-20.0 [facility]WtjfixmWPNYXZRLKQ7715-81-25 14:50:00 Test Item Value Reference Range Interpretation Comments MPV (test code = MPV) 10.3 7.4-10.4 [facility] AustinJwyegemNYIBZVNLIT8604-27-52 14:50:00 Test Item Value Reference Range Interpretation Comments Platelet (test code = Platelet) 264 133-450 [facility] AustinXnrnkimMQQTUYLEIP1053-57-12 14:50:00 Test Item Value Reference Range Interpretation Comments MCHC (test code = MCHC) 33.6 32.0-36.0 [facility] AustinNqprruxMQPUNPXLFL9806-36-10 14:50:00 Test Item Value Reference Range Interpretation Comments MCH (test code = MCH) 29.7 pg 27.0-31.0 [facility] AustinEwcdmajMEESLFUPKU1008-59-82 14:50:00 Test Item Value Reference Range Interpretation Comments RDW (test code = RDW) 12.9 11.5-14.5 [facility] AustinNuucrvxQGNBOEATUR1283-84-51 14:50:00 Test Item Value Reference Range Interpretation Comments RBC (test code = RBC) 4.79 4.20-5.40 [facility] AustinSykbjpjXXVDPZVGII3334-59-67 14:50:00 Test Item Value Reference Range Interpretation Comments WBC (test code = WBC) 7.2 3.7-10.4 [facility] AustinQldyvlnKQQYHYPRNS2859-77-75 14:50:00 Test Item Value Reference Range Interpretation Comments MCV (test code = MCV) 88.4 80.0-98.0 [facility] AustinHtuujqlVYNTWXDOGO6072-94-62 14:50:00 Test Item Value Reference Range Interpretation Comments Hct (test code = Hct) 42.4 36.0-48.0 [facility] AustinRhzszkeVQFQJGADHS0820-27-06 14:50:00 Test Item Value Reference Range Interpretation Comments Hgb (test code = Hgb) 14.2 12.0-16.0 [facility] AustinVvzqgshZEVHVMYAOK1453-27-03 14:50:00 Test Item Value Reference Range Interpretation Comments Segs (test code = Segs) 57.8 45.0-75.0 [facility] AustinCzhdwvgFWXOEVDKIJ9325-22-80 14:50:00 Test Item Value Reference Range Interpretation Comments Monocytes (test code = Monocytes) 6.3 2.0-12.0 [facility] AustinDuaihgqXXELYWTISC4558-57-04 14:50:00 Test Item Value Reference Range Interpretation Comments Lymphocytes (test code = Lymphocytes) 32.9 20.0-40.0 [facility] AustinNdcmvvbFZBTNPZRXQ3961-62-78 14:50:00 Test Item Value Reference Range Interpretation Comments Lymphocytes # (test code = Lymphocytes 2.4 1.0-5.5 #) [facility] AustinTgexdycJSBIMRFAPQ8185-45-94 14:50:00 Test Item Value Reference Range Interpretation Comments Segs-Bands # (test code = Segs-Bands #) 4.2 1.5-8.1 [facility] AustinGmyvavxTTVWAKRDKJ8606-62-54 14:50:00 Test Item Value Reference Range Interpretation Comments Monocytes # (test code 0.5 See_Comment [Aut omated message] The = Monocytes #) system which generated this result tra nsmitted reference range : <=0.8. The reference r laxmi was not used to int erpret this result as normal/abnormal . [facility] AustinMpzzgqyFYWHABOAUB6174-78-28 14:50:00 Test Item Value Reference Range Interpretation Comments Basophils (test code = 0.9 See_Comment [Aut omated message] The Basophils) system which ge nerated this result tra nsmitted reference range : <=1.0. The reference r laxmi was not used to int erpret this result as normal/abnormal . [facility] AustinKkburqoCNUAGLUDTD8520-63-32 14:50:00 Test Item Value Reference Range Interpretation Comments Eosinophils (test code = 2.1 See_Comment [A utomated message] The Eosinophils) system which ge nerated this result tra nsmitted reference range : <=4.0. The reference r laxmi was not used to int erpret this result as normal/abnormal . [facility] AustinZuxoqexCNBYUYJEWM1348-87-05 14:50:00 Test Item Value Reference Range Interpretation Comments Basophils # (test code 0.1 See_Comment [Aut omated message] The = Basophils #) system which generated this result tra nsmitted reference range : <=0.2. The reference r laxmi was not used to int erpret this result as normal/abnormal . [facility] AustinEktsjxtRBWGDMAUAP4640-46-51 14:50:00 Test Item Value Reference Range Interpretation Comments Eosinophils # (test code 0.1 See_Comment [A utomated message] The = Eosinophils #) system whic h generated this result tra nsmitted reference range : <=0.5. The reference r laxmi was not used to int erpret this result as normal/abnormal . [facility]2017-04-19 14:50:00 Test Item Value Reference Range Interpretation Comments UA Urobilinogen (test code = UA <=1.0 mg/dL 0.1-1.0 Urobilinogen) [facility] AND [id number] 14:50:00 Test Item Value Reference Range Interpretation Comments UA WBC (test code = 2 See_Comment [Automa irma message] The UA WBC) system which ge nerated this result transmit irma reference range : <=5. The reference range was not used to interpr et this result as gabi l/abnormal. [facility]2017-04-19 14:50:00 Test Item Value Reference Range Interpretation Comments UA Mucus (test code = UA Mucus) Few /LPF [facility] AND [id number] 14:50:00 Test Item Value Reference Range Interpretation Comments UA RBC (test code = 3 See_Comment [Automa irma message] The UA RBC) system which ge nerated this result transmit irma reference range : <=2. The reference range was not used to interpr et this result as gabi l/abnormal. [facility] AND [id number] 14:50:00 Test Item Value Reference Range Interpretation Comments UA Bili (test code = Negative *NA*(08/10/16 UA Bili) 9:50 AM) [facility] AND [id number] 14:50:00 Test Item Value Reference Range Interpretation Comments UA Ketones (test code = UA Negative mg/dL Ketones) [facility] AND [id number] 14:50:00 Test Item Value Reference Range Interpretation Comments UA Glucose (test code = UA Glucose) 150 mg/dL [facility] AND [id number] 14:50:00 Test Item Value Reference Range Interpretation Comments UA Protein (test code = UA Negative mg/dL Protein) [facility] AND [id number] 14:50:00 Test Item Value Reference Range Interpretation Comments UA Sq Epi (test code = UA Sq Epi) Many /LPF [facility] AND [id number] 14:50:00 Test Item Value Reference Range Interpretation Comments UA Leuk Est (test Negative (08/10/16 9:50 code = UA Leuk Est) AM) [facility] AND [id number] 14:50:00 Test Item Value Reference Range Interpretation Comments UA Blood (test code = Negative (08/10/16 9:50 UA Blood) AM) [facility] AND [id number] 14:50:00 Test Item Value Reference Range Interpretation Comments UA Nitrite (test code Negative (08/10/16 9:50 = UA Nitrite) AM) [facility] AND [id number] 14:50:00 Test Item Value Reference Range Interpretation Comments UA Color (test code = Yellow *NA*(08/10/16 UA Color) 9:50 AM) [facility] AND [id number] 14:50:00 Test Item Value Reference Range Interpretation Comments UA Spec Grav (test code = UA Spec Grav) 1.020 [facility] [id number] 14:50:00 Test Item Value Reference Range Interpretation Comments UA Turbidity (test code Slight *ABN*(08/10/16 = UA Turbidity) 9:50 AM) [facility] [id number] 14:50:00 Test Item Value Reference Range Interpretation Comments UA pH (test code = UA pH) 6.0 5.0-8.0 [facility] [id number] 14:50:00 Test Item Value Reference Range Interpretation Comments U Preg (test code = U Negative (08/10/16 9:50 Preg) AM) [facility] [id number] 01:20:00 Test Item Value Reference Range Interpretation Comments Lipase Lvl (test code = Lipase Lvl) 75 73-393 [facility] [id number] 00:14:00 Test Item Value Reference Range Interpretation Comments UA Urobilinogen (test code = UA <=1.0 mg/dL 0.1-1.0 Urobilinogen) [facility] [id number] 00:14:00 Test Item Value Reference Range Interpretation Comments UA Color (test code = UA Color) Ltyellow [facility] [id number] 00:14:00 Test Item Value Reference Range Interpretation Comments UA WBC (test code = 1 See_Comment [Automa irma message] The UA WBC) system which ge nerated this result transmit irma reference range : <=5. The reference range was not used to interpr et this result as gabi l/abnormal. [facility] [id number] 00:14:00 Test Item Value Reference Range Interpretation Comments UA RBC (test code = 5 See_Comment [Automa rima message] The UA RBC) system which ge nerated this result transmit irma reference range : <=2. The reference range was not used to interpr et this result as gabi l/abnormal. [facility] [id number] 00:14:00 Test Item Value Reference Range Interpretation Comments UA Nitrite (test code Negative (04/22/16 6:14 = UA Nitrite) PM) [facility] [id number] 00:14:00 Test Item Value Reference Range Interpretation Comments UA Leuk Est (test Negative (04/22/16 6:14 code = UA Leuk Est) PM) [facility] AND [id number] 00:14:00 Test Item Value Reference Range Interpretation Comments UA Sq Epi (test code = UA Sq Epi) Few /LPF [facility] AND [id number] 00:14:00 Test Item Value Reference Range Interpretation Comments UA Turbidity (test code = Clear (04/22/16 6:14 UA Turbidity) PM) [facility] AND [id number] 00:14:00 Test Item Value Reference Range Interpretation Comments UA Ketones (test code = UA Negative mg/dL Ketones) [facility] AND [id number] 00:14:00 Test Item Value Reference Range Interpretation Comments UA pH (test code = UA pH) 6.0 5.0-8.0 [facility] AND [id number] 00:14:00 Test Item Value Reference Range Interpretation Comments UA Spec Grav (test code = UA Spec Grav) 1.015 [facility] AND [id number] 00:14:00 Test Item Value Reference Range Interpretation Comments UA Blood (test code = Negative (04/22/16 6:14 UA Blood) PM) [facility] AND [id number] 00:14:00 Test Item Value Reference Range Interpretation Comments UA Bili (test code = Negative *NA*(04/22/16 UA Bili) 6:14 PM) [facility] AND [id number] 00:14:00 Test Item Value Reference Range Interpretation Comments UA Glucose (test code = UA Glucose) 500 mg/dL [facility] AND [id number] 00:14:00 Test Item Value Reference Range Interpretation Comments UA Protein (test code = UA Negative mg/dL Protein) [facility] [id number] 00:14:00 Test Item Value Reference Range Interpretation Comments U Preg (test code = U Negative (04/22/16 6:14 Preg) PM) [facility] [id number] 23:45:00 Test Item Value Reference Range Interpretation Comments CK MB (test code = CK MB) no gt 0.5-3.6 [facility] [id number] 23:45:00 Test Item Value Reference Range Interpretation Comments Total CK (test code = Total CK) 84 12-191 [facility] HospitalSMS THL HoldingsCARHyper9 [id number] 23:45:00 Test Item Value Reference Range Interpretation Comments CK MB Index (test no gt See_Comment [Automate d message] The code = CK MB Index) [facility] generated [facility] result transmit irma reference range : <=2.5. The reference range was not used to interpr et this result as gabi l/abnormal. [facility] [employer] [id number] 23:45:00 Test Item Value Reference Range Interpretation Comments Troponin-I (test code no gt See_Comment [Auto mated message] The = Troponin-I) system which g enerated this result transmit irma reference range : <=0.40. The reference r laxmi was not used to interpr et this result as gabi l/abnormal. [facility] [employer] [id number] 23:45:00 Test Item Value Reference Range Interpretation Comments eGFR (test code = eGFR) 115 [facility] [employer] [id number] 23:45:00 Test Item Value Reference Range Interpretation Comments Chloride Lvl (test code = Chloride Lvl) 101 95-109 [facility] [employer] [id number] 23:45:00 Test Item Value Reference Range Interpretation Comments Potassium Lvl (test code = Potassium 3.7 3.5-5.1 Lvl) [facility] [employer] [id number] 23:45:00 Test Item Value Reference Range Interpretation Comments Calcium Lvl (test code = Calcium Lvl) 8.9 8.5-10.5 [facility] [employer] [id number] 23:45:00 Test Item Value Reference Range Interpretation Comments CO2 (test code = CO2) 26 24-32 [facility] [employer] [id number] 23:45:00 Test Item Value Reference Range Interpretation Comments Creatinine Lvl (test code = Creatinine 0.72 0.50-1.40 Lvl) [facility] [employer] [id number] 23:45:00 Test Item Value Reference Range Interpretation Comments Sodium Lvl (test code = Sodium Lvl) 137 135-145 [facility] [employer] [id number] 23:45:00 Test Item Value Reference Range Interpretation Comments Albumin Lvl (test code = Albumin Lvl) 3.8 3.5-5.0 [facility]2016-12-30 23:45:00 Test Item Value Reference Range Interpretation Comments ALT (test code = ALT) 21 See_Comment [Auto mated message] The system which ge nerated this result transmit irma reference range : <=65. The reference range was not used to interpr et this result as gabi l/abnormal. [facility]2016-12-30 23:45:00 Test Item Value Reference Range Interpretation Comments Total Protein (test code = Total 8.0 6.4-8.4 Protein) [facility]2016-12-30 23:45:00 Test Item Value Reference Range Interpretation Comments Alk Phos (test code = Alk Phos) 73 39-136 [facility]2016-12-30 23:45:00 Test Item Value Reference Range Interpretation Comments AST (test code = AST) 10 See_Comment [Auto mated message] The system which ge nerated this result transmit irma reference range : <=37. The reference range was not used to interpr et this result as gabi l/abnormal. [facility]2016-12-30 23:45:00 Test Item Value Reference Range Interpretation Comments Glucose Lvl (test code = Glucose Lvl) 263 70-99 [facility]2016-12-30 23:45:00 Test Item Value Reference Range Interpretation Comments BUN (test code = BUN) 8 7-22 [facility]2016-12-30 23:45:00 Test Item Value Reference Range Interpretation Comments AGAP (test code = AGAP) 13.7 10.0-20.0 [facility]2016-12-30 23:45:00 Test Item Value Reference Range Interpretation Comments Globulin (test code = Globulin) 4.2 2.7-4.2 [facility]2016-12-30 23:45:00 Test Item Value Reference Range Interpretation Comments B/C Ratio (test code = B/C Ratio) 11 6-25 [place] [id number] 23:45:00 Test Item Value Reference Range Interpretation Comments A/G Ratio (test code = A/G Ratio) 0.9 0.7-1.6 [place] [id number] 23:45:00 Test Item Value Reference Range Interpretation Comments Bili Total (test code = Bili Total) 0.2 0.2-1.3 [facility] AustinIjetjumHIKUXTTRLI7363-46-01 23:45:00 Test Item Value Reference Range Interpretation Comments RDW (test code = RDW) 13.5 11.5-14.5 [facility] AustinYnrpidrGCXLGIOWFH6033-76-66 23:45:00 Test Item Value Reference Range Interpretation Comments Platelet (test code = Platelet) 310 133-450 [facility] AustinNgonnrxIUHZMBVHGH9939-67-64 23:45:00 Test Item Value Reference Range Interpretation Comments MCV (test code = MCV) 91.7 80.0-98.0 [facility] AustinCxegszoYJYZCOANOL9823-95-26 23:45:00 Test Item Value Reference Range Interpretation Comments MCH (test code = MCH) 30.9 pg 27.0-31.0 [facility] AustinVaqexxyNXBIYJPBMZ8130-42-02 23:45:00 Test Item Value Reference Range Interpretation Comments MCHC (test code = MCHC) 33.8 32.0-36.0 [facility] AustinXpiobffZNWMFHSRXP4038-87-92 23:45:00 Test Item Value Reference Range Interpretation Comments MPV (test code = MPV) 9.9 7.4-10.4 [facility] AustinZcyjpyfKYRKCOEUYN0480-39-85 23:45:00 Test Item Value Reference Range Interpretation Comments Hct (test code = Hct) 40.4 36.0-48.0 [facility] AustinAmtewxwXSNNAHZUSH2996-65-72 23:45:00 Test Item Value Reference Range Interpretation Comments WBC (test code = WBC) 6.7 3.7-10.4 [facility] AustinGvdrvsdINEXFQJBHF9008-01-49 23:45:00 Test Item Value Reference Range Interpretation Comments RBC (test code = RBC) 4.41 4.20-5.40 [facility] AustinQigzwmxBSYJUZGVSU3596-83-05 23:45:00 Test Item Value Reference Range Interpretation Comments Hgb (test code = Hgb) 13.6 12.0-16.0 [facility] AustinXttthheKLVXZSOXKF0858-08-28 23:45:00 Test Item Value Reference Range Interpretation Comments Monocytes # (test code 0.5 See_Comment [Aut omated message] The = Monocytes #) system which generated this result tra nsmitted reference range : <=0.8. The reference r laxmi was not used to int erpret this result as normal/abnormal . [facility] AustinSiququrEZPPGGXKCR6694-05-56 23:45:00 Test Item Value Reference Range Interpretation Comments Eosinophils # (test code 0.3 See_Comment [A utomated message] The = Eosinophils #) system whic h generated this result tra nsmitted reference range : <=0.5. The reference r laxmi was not used to int erpret this result as normal/abnormal . [facility] AustinApmcszmSOMEPUWZXO6944-60-19 23:45:00 Test Item Value Reference Range Interpretation Comments Basophils # (test code 0.1 See_Comment [Aut omated message] The = Basophils #) system which generated this result tra nsmitted reference range : <=0.2. The reference r laxmi was not used to int erpret this result as normal/abnormal . [facility] AustinXzoxuaiFZNEUBLNOE7763-39-40 23:45:00 Test Item Value Reference Range Interpretation Comments Segs-Bands # (test code = Segs-Bands #) 2.9 1.5-8.1 [facility] AustinWanwwpdJTYETKYSPC6235-12-44 23:45:00 Test Item Value Reference Range Interpretation Comments Lymphocytes # (test code = Lymphocytes 2.8 1.0-5.5 #) [facility] AustinIlwasyePKVUVVZENJ4515-60-59 23:45:00 Test Item Value Reference Range Interpretation Comments Monocytes (test code = Monocytes) 8.1 2.0-12.0 [facility] AustinQrkkwhfLPWDYJTXDY7029-54-38 23:45:00 Test Item Value Reference Range Interpretation Comments Eosinophils (test code = 5.2 See_Comment [A utomated message] The Eosinophils) system which ge nerated this result tra nsmitted reference range : <=4.0. The reference r laxmi was not used to int erpret this result as normal/abnormal . [facility] AustinVolzbomXTSKGYEXFO1460-49-42 23:45:00 Test Item Value Reference Range Interpretation Comments Basophils (test code = 1.3 See_Comment [Aut omated message] The Basophils) system which ge nerated this result tra nsmitted reference range : <=1.0. The reference r laxmi was not used to int erpret this result as normal/abnormal . [facility] AustinZjwxmtuCKEDEJXIZN5069-29-54 23:45:00 Test Item Value Reference Range Interpretation Comments Segs (test code = Segs) 43.9 45.0-75.0 [facility]lineYxyuoxuUJCBLTLMRM4801-19-40 23:45:00 Test Item Value Reference Range Interpretation Comments Lymphocytes (test code = Lymphocytes) 41.5 20.0-40.0 [facility]2016-06-24 19:35:45 Test Item Value Reference Range Interpretation Comments eGFR (test code = eGFR) 124 [facility]lineIgngiseYIQLMZEPES7827-98-36 19:35:45 Test Item Value Reference Range Interpretation Comments Salicylate Lvl (test no gt See_Comment [Autom ated message] The code = Salicylate Lvl) syste m which generated this result tra nsmitted reference range : <=30.0. The reference r laxmi was not used to int erpret this result as normal/abnormal . [facility] [id number] 19:30:00 Test Item Value Reference Range Interpretation Comments CK MB (test code = CK MB) <0.5 ng/mL 0.5-3.6 [facility] [id number] 19:30:00 Test Item Value Reference Range Interpretation Comments Troponin-I (test <0.015 ng/mL See_Comment [Automated message] The code = system which ge nerated Troponin-I) this result tra nsmitted reference range : <=0.40. The reference r laxmi was not used to int erpret this result as normal/abnormal . [facility]2016-06-24 19:30:00 Test Item Value Reference Range Interpretation Comments Creatinine Lvl (test code = Creatinine 0.62 0.50-1.40 Lvl) [facility]2016-06-24 19:30:00 Test Item Value Reference Range Interpretation Comments Sodium Lvl (test code = Sodium Lvl) 137 135-145 [facility]2016-06-24 19:30:00 Test Item Value Reference Range Interpretation Comments Potassium Lvl (test code = Potassium 4.0 3.5-5.1 Lvl) [facility]2016-06-24 19:30:00 Test Item Value Reference Range Interpretation Comments Chloride Lvl (test code = Chloride Lvl) 100 95-109 [facility]lineCor[facility] Therapeutics [id number] 19:30:00 Test Item Value Reference Range Interpretation Comments Glucose Lvl (test code = Glucose Lvl) 372 70-99 [facility] [id number] 19:30:00 Test Item Value Reference Range Interpretation Comments BUN (test code = BUN) 11 7-22 [facility] [id number] 19:30:00 Test Item Value Reference Range Interpretation Comments CO2 (test code = CO2) 24 24-32 [facility] [id number] 19:30:00 Test Item Value Reference Range Interpretation Comments AGAP (test code = AGAP) 17.0 10.0-20.0 [facility] [place] [id number] 19:30:00 Test Item Value Reference Range Interpretation Comments Calcium Lvl (test code = Calcium Lvl) 7.6 8.5-10.5 [facility]YymsnpdEBNICKDQAT8685-47-49 19:30:00 Test Item Value Reference Range Interpretation Comments Etoh (%) (test code = Etoh (%)) no gt [facility] HospitalCrlszumFKLBTEKBGY8011-46-97 19:30:00 Test Item Value Reference Range Interpretation Comments Ethanol Lvl (test code = Ethanol Lvl) no gt [facility]annVIRAL - [id number] 18:38:00 Test Item Value Reference Range Interpretation Comments Influ A (test code = Negative (10/16/15 1:38 Influ A) PM) [facility] [id number] 18:38:00 Test Item Value Reference Range Interpretation Comments Influ B (test code = Negative (10/16/15 1:38 Influ B) PM) [facility] [place] [id number] 18:06:00 Test Item Value Reference Range Interpretation Comments Lactic Acid Lvl (test code = Lactic 0.9 0.5-2.2 Acid Lvl) [facility]ARD[facility] [id number] 15:52:00 Test Item Value Reference Range Interpretation Comments CK MB Index (test no gt See_Comment [Automate d message] The code = CK MB Index) system w [facility] generated this result transmit irma reference range : <=2.5. The reference range was not used to interpr et this result as gabi l/abnormal. [facility]annCARD[facility]AC [id number] 15:52:00 Test Item Value Reference Range Interpretation Comments CK MB (test code = CK MB) no gt 0.5-3.6 [facility] CovacsisCARDIAC [id number] 15:52:00 Test Item Value Reference Range Interpretation Comments Troponin-I (test code no gt See_Comment [Auto mated message] The = Troponin-I) system which g enerated this result transmit irma reference range : <=0.40. The reference r laxmi was not used to interpr et this result as gabi l/abnormal. [facility] [employer] [id number] 15:52:00 Test Item Value Reference Range Interpretation Comments Total CK (test code = Total CK) 83 12-191 [facility] [employer] [id number] 15:52:00 Test Item Value Reference Range Interpretation Comments Ketone Quantitative (test code = Ketone 0.45 Quantitative) [facility] [id number] 15:52:00 Test Item Value Reference Range Interpretation Comments eGFR (test code = eGFR) 88 [facility] [employer] [id number] 15:52:00 Test Item Value Reference Range Interpretation Comments AST (test code = AST) 18 See_Comment [Auto mated message] The system which ge nerated this result transmit irma reference range : <=37. The reference range was not used to interpr et this result as gabi l/abnormal. [facility] [employer] [id number] 15:52:00 Test Item Value Reference Range Interpretation Comments Alk Phos (test code = Alk Phos) 119 39-136 [facility] [employer] [id number] 15:52:00 Test Item Value Reference Range Interpretation Comments Bili Total (test code = Bili Total) 0.3 0.2-1.3 [facility] [employer] [id number] 15:52:00 Test Item Value Reference Range Interpretation Comments Globulin (test code = Globulin) 3.3 2.0-4.0 [facility] [id number] 15:52:00 Test Item Value Reference Range Interpretation Comments A/G Ratio (test code = A/G Ratio) 1.2 0.7-1.6 [facility] [employer] [id number] 15:52:00 Test Item Value Reference Range Interpretation Comments ALT (test code = ALT) 31 See_Comment [Auto mated message] The system which ge nerated this result transmit irma reference range : <=65. The reference range was not used to interpr et this result as gabi l/abnormal. [facility]2016-06-24 15:52:00 Test Item Value Reference Range Interpretation Comments B/C Ratio (test code = B/C Ratio) 13 6-25 [facility]2016-06-24 15:52:00 Test Item Value Reference Range Interpretation Comments Total Protein (test code = Total 7.2 6.4-8.4 Protein) [facility]2016-06-24 15:52:00 Test Item Value Reference Range Interpretation Comments Albumin Lvl (test code = Albumin Lvl) 3.9 3.5-5.0 [facility]2016-06-24 15:52:00 Test Item Value Reference Range Interpretation Comments BUN (test code = BUN) 12 11-12 [facility]2016-06-24 15:52:00 Test Item Value Reference Range Interpretation Comments Glucose Lvl (test code = Glucose Lvl) 593 70-99 [facility]2016-06-24 15:52:00 Test Item Value Reference Range Interpretation Comments Creatinine Lvl (test code = Creatinine 0.90 0.50-1.40 Lvl) [facility]2016-06-24 15:52:00 Test Item Value Reference Range Interpretation Comments Chloride Lvl (test code = Chloride Lvl) 92 95-109 [facility]2016-06-24 15:52:00 Test Item Value Reference Range Interpretation Comments Potassium Lvl (test code = Potassium 4.1 3.5-5.1 Lvl) [facility]2016-06-24 15:52:00 Test Item Value Reference Range Interpretation Comments AGAP (test code = AGAP) 23.1 10.0-20.0 [facility]2016-06-24 15:52:00 Test Item Value Reference Range Interpretation Comments CO2 (test code = CO2) 22 24-32 [facility]2016-06-24 15:52:00 Test Item Value Reference Range Interpretation Comments Sodium Lvl (test code = Sodium Lvl) 133 135-145 [facility]2016-06-24 15:52:00 Test Item Value Reference Range Interpretation Comments Calcium Lvl (test code = Calcium Lvl) 8.1 8.5-10.5 [facility]2016-06-24 15:52:00 Test Item Value Reference Range Interpretation Comments Osmolality (test code = Osmolality) 308 280-300 [facility]2016-06-24 15:52:00 Test Item Value Reference Range Interpretation Comments Magnesium Lvl (test code = Magnesium 2.1 1.8-2.4 Lvl) [facility] AustinZkkslcnSYULHTIMAL4774-81-15 15:52:00 Test Item Value Reference Range Interpretation Comments Segs-Bands # (test code = Segs-Bands #) 5.2 1.5-8.1 [facility] AustinBqsvreaWVLFJUMNIX5517-05-82 15:52:00 Test Item Value Reference Range Interpretation Comments Lymphocytes # (test code = Lymphocytes 1.8 1.0-5.5 #) [facility] AustinYfpracuFODVFMRJHU4325-00-30 15:52:00 Test Item Value Reference Range Interpretation Comments Eosinophils # (test code 0.1 See_Comment [A utomated message] The = Eosinophils #) [facility] generated this result tra nsmitted reference range : <=0.5. The reference r laxmi was not used to int erpret this result as normal/abnormal . [facility] AustinKevniznMBAWCJKXWA7916-60-57 15:52:00 Test Item Value Reference Range Interpretation Comments Monocytes # (test code 0.4 See_Comment [Aut omated message] The = Monocytes #) system which generated this result tra nsmitted reference range : <=0.8. The reference r laxmi was not used to int erpret this result as normal/abnormal . [facility] AustinQhvosogUPBSNPODVG7722-64-65 15:52:00 Test Item Value Reference Range Interpretation Comments Basophils (test code = 1.1 See_Comment [Aut omated message] The Basophils) system which ge nerated this result tra nsmitted reference range : <=1.0. The reference r laxmi was not used to int erpret this result as normal/abnormal . [facility] AustinXoeixdvJWGPHGPXBM5700-26-95 15:52:00 Test Item Value Reference Range Interpretation Comments Monocytes (test code = Monocytes) 5.5 2.0-12.0 [facility] AustinDbrgdbjQGEHXHVZJP1985-43-98 15:52:00 Test Item Value Reference Range Interpretation Comments Eosinophils (test code = 1.4 See_Comment [A utomated message] The Eosinophils) system which ge nerated this result tra nsmitted reference range : <=4.0. The reference r laxmi was not used to int erpret this result as normal/abnormal . [facility] AustinFulphhhNLHNWKHXMK6727-39-84 15:52:00 Test Item Value Reference Range Interpretation Comments Basophils # (test code 0.1 See_Comment [Aut omated message] The = Basophils #) system which generated this result tra nsmitted reference range : <=0.2. The reference r laxmi was not used to int erpret this result as normal/abnormal . [facility] AustinOppzkwzNFDCYMOJLW9419-84-60 15:52:00 Test Item Value Reference Range Interpretation Comments Segs (test code = Segs) 68.7 45.0-75.0 [facility] AustinOxwnnviBSXCKETXDI4334-11-28 15:52:00 Test Item Value Reference Range Interpretation Comments Lymphocytes (test code = Lymphocytes) 23.3 20.0-40.0 [facility] AustinIqmprvpLIICTUCWZX2405-47-49 15:52:00 Test Item Value Reference Range Interpretation Comments WBC (test code = WBC) 7.6 3.7-10.4 [facility] AustinVsmywepSJYAQQKKDT5873-97-39 15:52:00 Test Item Value Reference Range Interpretation Comments RBC (test code = RBC) 4.29 4.20-5.40 [facility] AustinVftjwsnAPOMXRTIBI6999-73-42 15:52:00 Test Item Value Reference Range Interpretation Comments Platelet (test code = Platelet) 250 133-450 [facility] AustinEtpgogcRISIKZSTDN1177-63-64 15:52:00 Test Item Value Reference Range Interpretation Comments Hct (test code = Hct) 39.0 36.0-48.0 [facility] AustinIcqfeucSZSYEBHSOG2205-82-38 15:52:00 Test Item Value Reference Range Interpretation Comments RDW (test code = RDW) 13.1 11.5-14.5 [facility] AustinOgrmjjgMRWJFCTFME1333-18-79 15:52:00 Test Item Value Reference Range Interpretation Comments MCHC (test code = MCHC) 34.4 32.0-36.0 [facility] AustinHybjoafASRZNZHNTP8083-38-53 15:52:00 Test Item Value Reference Range Interpretation Comments MCV (test code = MCV) 90.9 80.0-98.0 [facility] AustinTfsxqhfTFUBNLLLTP8097-34-71 15:52:00 Test Item Value Reference Range Interpretation Comments MCH (test code = MCH) 31.2 pg 27.0-31.0 [facility] AustinFkljrtwWDTANANBRX8976-59-20 15:52:00 Test Item Value Reference Range Interpretation Comments Hgb (test code = Hgb) 13.4 12.0-16.0 [facility] AustinEzfczaiRAFCBEADZV3934-66-76 15:52:00 Test Item Value Reference Range Interpretation Comments MPV (test code = MPV) 10.6 7.4-10.4 [facility] AustinEuibpkaMXFPULHWGP1791-65-35 15:52:00 Test Item Value Reference Range Interpretation Comments INR (test code = INR) 0.90 0.85-1.17 [facility] AustinLicjmyjOPMENOYGUK8071-03-54 15:52:00 Test Item Value Reference Range Interpretation Comments PT (test code = PT) 12.5 s 12.0-14.7 [facility] AustinHfqhcrxKIHPGIUFPW5707-90-01 15:52:00 Test Item Value Reference Range Interpretation Comments PTT (test code = PTT) 26.7 s 22.9-35.8 [facility] AND [id number] 15:52:00 Test Item Value Reference Range Interpretation Comments UA Urobilinogen (test code = UA <=1.0 mg/dL 0.1-1.0 Urobilinogen) [facility] AND [id number] 15:52:00 Test Item Value Reference Range Interpretation Comments UA Color (test code = UA Color) Ltyellow [facility] AND [id number] 15:52:00 Test Item Value Reference Range Interpretation Comments UA Glucose (test code = UA Glucose) 500 mg/dL [facility] AND [id number] 15:52:00 Test Item Value Reference Range Interpretation Comments UA Sq Epi (test code = UA Sq Occasional /LPF Epi) [facility] AND [id number] 15:52:00 Test Item Value Reference Range Interpretation Comments UA Leuk Est (test Negative (10/16/15 10:52 code = UA Leuk Est) AM) [facility] AND [id number] 15:52:00 Test Item Value Reference Range Interpretation Comments UA Nitrite (test code Negative (10/16/15 10:52 = UA Nitrite) AM) [facility] AND [id number] 15:52:00 Test Item Value Reference Range Interpretation Comments UA Blood (test code = Negative (10/16/15 10:52 UA Blood) AM) [facility] [id number] 15:52:00 Test Item Value Reference Range Interpretation Comments UA Ketones (test code = UA Negative mg/dL Ketones) [facility] AND [id number] 15:52:00 Test Item Value Reference Range Interpretation Comments UA Bili (test code = Negative *NA*(10/16/15 UA Bili) 10:52 AM) [facility] AND [id number] 15:52:00 Test Item Value Reference Range Interpretation Comments UA RBC (test code = 1 See_Comment [Automa irma message] The UA RBC) system which ge nerated this result transmit irma reference range : <=2. The reference range was not used to interpr et this result as gabi l/abnormal. [facility] AND [id number] 15:52:00 Test Item Value Reference Range Interpretation Comments UA WBC (test code = 1 See_Comment [Automa irma message] The UA WBC) system which ge nerated this result transmit irma reference range : <=5. The reference range was not used to interpr et this result as gabi l/abnormal. [facility] HospitalmeghaH[facility] AND [id number] 15:52:00 Test Item Value Reference Range Interpretation Comments UA Protein (test code = UA Negative mg/dL Protein) [facility] AND [id number] 15:52:00 Test Item Value Reference Range Interpretation Comments UA pH (test code = UA pH) 6.0 5.0-8.0 [facility] AND [id number] 15:52:00 Test Item Value Reference Range Interpretation Comments UA Spec Grav (test code = UA Spec Grav) 1.026 [facility] AND [id number] 15:52:00 Test Item Value Reference Range Interpretation Comments UA Turbidity (test code = Clear (10/16/15 10:52 UA Turbidity) AM) [facility]rm[facility]enHTMISQ2448[facility] 15:40:00 Test Item Value Reference Range Interpretation Comments VLDL (test code = See Note 2*NA*(08/17/15 VLDL) 10:40 AM) [facility] CenterCmgpkttJHBLMA5478-30-15 15:40:00 Test Item Value Reference Range Interpretation Comments HDL (test code = HDL) 33 [facility]lineLgzumvgWICERT3711-05-23 15:40:00 Test Item Value Reference Range Interpretation Comments CHD Risk (test code = CHD Risk) 6.45 3.90-5.80 [facility] ShorelineAhnxmgeENZTSC4461-90-54 15:40:00 Test Item Value Reference Range Interpretation Comments Chol (test code = Chol) 213 [facility] ShorelineZgcjochRMVJXG7967-67-32 15:40:00 Test Item Value Reference Range Interpretation Comments Trig (test code = Trig) 442 [facility] ShorelineOvbxnndTIKATN9106-33-83 15:40:00 Test Item Value Reference Range Interpretation Comments LDL (Calculated) (test code = See Note mg/dL LDL (Calculated)) [facility] XNAOXKREE7875-05-25 15:40:00 Test Item Value Reference Range Interpretation Comments Hgb A1C (test code = Hgb A1C) >16.0 % [facility] HospitalatVenu YXQLVVX9127-75-13 09:35:00 Test Item Value Reference Range Interpretation Comments Total CK (test code = Total CK) 73 12-191 [facility] ShorelineEcoS[employer]Pur[employer] KZUTOKG4599-52-16 09:35:00 Test Item Value Reference Range Interpretation Comments Troponin-I (test code no gt See_Comment [Auto mated message] The = Troponin-I) system which g enerated this result transmit irma reference range : <=0.40. The reference r laxmi was not used to interpr et this result as gabi l/abnormal. [facility] HospitalatVenu NSOQHIG0450-31-25 03:24:00 Test Item Value Reference Range Interpretation Comments Total CK (test code = Total CK) 92 12-191 [facility] ShorelineSensorin YKOWPQF6458-79-01 03:24:00 Test Item Value Reference Range Interpretation Comments Troponin-I (test code no gt See_Comment [Auto mated message] The = Troponin-I) system which g enerated this result transmit irma reference range : <=0.40. The reference r laxmi was not used to interpr et this result as gabi l/abnormal. [facility] [employer] RGIASHI5129-06-99 03:24:00 Test Item Value Reference Range Interpretation Comments CK MB (test code = CK MB) no gt 0.5-3.6 [facility] [employer]2016-04-25 03:24:00 Test Item Value Reference Range Interpretation Comments CK MB Index (test no gt See_Comment [Automate d message] The code = CK MB Index) system w [employer] generated this result transmit irma reference range : <=2.5. The reference range was not used to interpr et this result as gabi l/abnormal. [employer]2016-04-24 21:12:00 Test Item Value Reference Range Interpretation Comments CK MB Index (test no gt See_Comment [Automate d message] The code = CK MB Index) system w [employer] generated this result transmit irma reference range : <=2.5. The reference range was not used to interpr et this result as gabi l/abnormal. [employer]2016-04-24 21:12:00 Test Item Value Reference Range Interpretation Comments CK MB (test code = CK MB) no gt 0.5-3.6 [facility] [employer]2016-04-24 21:12:00 Test Item Value Reference Range Interpretation Comments Total CK (test code = Total CK) 117 12-191 [facility] [employer]2016-04-24 21:12:00 Test Item Value Reference Range Interpretation Comments Troponin-I (test code no gt See_Comment [Auto mated message] The = Troponin-I) system which g enerated this result transmit irma reference range : <=0.40. The reference r laxmi was not used to interpr et this result as gabi l/abnormal. [address]2016-04-24 21:12:00 Test Item Value Reference Range Interpretation Comments Magnesium Lvl (test code = Magnesium 2.1 1.8-2.4 Lvl) [facility] [employer]2016-04-24 21:12:00 Test Item Value Reference Range Interpretation Comments Lipase Lvl (test code = Lipase Lvl) 354 73-393 [facility] [employer]2016-04-24 21:12:00 Test Item Value Reference Range Interpretation Comments ALANINE AMINOTRANSFERASE 32 See_Comment [A utomated message] (test code = ALANINE The sys tem which AMINOTRANSFERASE) generated this result transmitted ref erence range: <=65. Th e reference range was not used to int erpret this result as normal/abnormal . [address]2016-04-24 21:12:00 Test Item Value Reference Range Interpretation Comments eGFR (test code = eGFR) 84 [facility]2016-04-24 21:12:00 Test Item Value Reference Range Interpretation Comments Bili Total (test code = Bili Total) 0.3 0.2-1.3 [facility]2016-04-24 21:12:00 Test Item Value Reference Range Interpretation Comments Alk Phos (test code = Alk Phos) 93 39-136 [facility]2016-04-24 21:12:00 Test Item Value Reference Range Interpretation Comments Total Protein (test code = Total 7.8 6.4-8.4 Protein) [facility]2016-04-24 21:12:00 Test Item Value Reference Range Interpretation Comments B/C Ratio (test code = B/C Ratio) 11 6-25 [facility]2016-04-24 21:12:00 Test Item Value Reference Range Interpretation Comments Albumin Lvl (test code = Albumin Lvl) 3.7 3.5-5.0 [facility]2016-04-24 21:12:00 Test Item Value Reference Range Interpretation Comments Potassium Lvl (test code = Potassium 3.7 3.5-5.1 Lvl) [facility]2016-04-24 21:12:00 Test Item Value Reference Range Interpretation Comments AST (test code = AST) 20 See_Comment [Auto mated message] The system which ge nerated this result transmit irma reference range : <=37. The reference range was not used to interpr et this result as gabi l/abnormal. [facility]2016-04-24 21:12:00 Test Item Value Reference Range Interpretation Comments A/G Ratio (test code = A/G Ratio) 0.9 0.7-1.6 [facility]2016-04-24 21:12:00 Test Item Value Reference Range Interpretation Comments Globulin (test code = Globulin) 4.1 2.0-4.0 [facility]2016-04-24 21:12:00 Test Item Value Reference Range Interpretation Comments CO2 (test code = CO2) 28 24-32 [facility]2016-04-24 21:12:00 Test Item Value Reference Range Interpretation Comments Chloride Lvl (test code = Chloride Lvl) 98 95-109 [facility]2016-04-24 21:12:00 Test Item Value Reference Range Interpretation Comments Calcium Lvl (test code = Calcium Lvl) 8.6 8.5-10.5 [facility]2016-04-24 21:12:00 Test Item Value Reference Range Interpretation Comments AGAP (test code = AGAP) 11.7 10.0-20.0 [facility]2016-04-24 21:12:00 Test Item Value Reference Range Interpretation Comments BUN (test code = BUN) 10 7-22 [facility]2016-04-24 21:12:00 Test Item Value Reference Range Interpretation Comments Glucose Lvl (test code = Glucose Lvl) 362 70-99 [facility]2016-04-24 21:12:00 Test Item Value Reference Range Interpretation Comments Creatinine Lvl (test code = Creatinine 0.94 0.50-1.40 Lvl) [facility]2016-04-24 21:12:00 Test Item Value Reference Range Interpretation Comments Sodium Lvl (test code = Sodium Lvl) 134 135-145 [facility]OdnonweQXDFICDPEBFCO0219-07-59 21:12:00 Test Item Value Reference Range Interpretation Comments S Preg (test code = S Negative *NA*(08/16/15 Preg) 4:12 PM) [facility] AustinXyztkrbWMRSZLZFXV3047-24-13 21:12:00 Test Item Value Reference Range Interpretation Comments Eosinophils (test code = 3.2 See_Comment [A utomated message] The Eosinophils) system which ge nerated this result tra nsmitted reference range : <=4.0. The reference r laxmi was not used to int erpret this result as normal/abnormal . [facility] AustinZdvhfgsILOVQUSKLV5590-93-95 21:12:00 Test Item Value Reference Range Interpretation Comments Segs-Bands # (test code = Segs-Bands #) 4.3 1.5-8.1 [facility] AustinSuwavmjUIBTCNYJVG6850-64-45 21:12:00 Test Item Value Reference Range Interpretation Comments Basophils (test code = 1.0 See_Comment [Aut omated message] The Basophils) system which ge nerated this result tra nsmitted reference range : <=1.0. The reference r laxmi was not used to int erpret this result as normal/abnormal . [facility] AustinTquhvamKQHNSAVAYE6045-50-07 21:12:00 Test Item Value Reference Range Interpretation Comments Monocytes # (test code 0.6 See_Comment [Aut omated message] The = Monocytes #) system which generated this result tra nsmitted reference range : <=0.8. The reference r laxmi was not used to int erpret this result as normal/abnormal . [facility] AustinMztcxnkTWRLLDUGHJ0832-40-71 21:12:00 Test Item Value Reference Range Interpretation Comments Lymphocytes # (test code = Lymphocytes 2.4 1.0-5.5 #) [facility] AustinUittnarENZKKDGFLN7448-55-10 21:12:00 Test Item Value Reference Range Interpretation Comments Monocytes (test code = Monocytes) 7.7 2.0-12.0 [facility] AustinVlevlljCGFSLSPIOV1562-71-89 21:12:00 Test Item Value Reference Range Interpretation Comments Lymphocytes (test code = Lymphocytes) 31.2 20.0-40.0 [facility] AustinEnlqbwiYTYAOYTVOX3970-47-53 21:12:00 Test Item Value Reference Range Interpretation Comments Basophils # (test code 0.1 See_Comment [Aut omated message] The = Basophils #) system which generated this result tra nsmitted reference range : <=0.2. The reference r laxmi was not used to int erpret this result as normal/abnormal . [facility] AustinKifvymzABWYFHKTQZ9686-47-44 21:12:00 Test Item Value Reference Range Interpretation Comments Eosinophils # (test code 0.2 See_Comment [A utomated message] The = Eosinophils #) system whic h generated this result tra nsmitted reference range : <=0.5. The reference r laxmi was not used to int erpret this result as normal/abnormal . [facility] AustinLmiuupjIYXSIWCRAY1822-47-20 21:12:00 Test Item Value Reference Range Interpretation Comments Segs (test code = Segs) 56.9 45.0-75.0 [facility] [place]Un[place]DDZMGWTDQM4982-59-63 21:12:00 Test Item Value Reference Range Interpretation Comments PTT (test code = PTT) 25.8 s 22.9-35.8 [facility] AustinGnthxtoRKMXUWHJBC4389-08-13 21:12:00 Test Item Value Reference Range Interpretation Comments INR (test code = INR) 0.97 0.85-1.17 [facility] AustinConnijtRETSQTVQRM6072-12-19 21:12:00 Test Item Value Reference Range Interpretation Comments PT (test code = PT) 13.2 s 12.0-14.7 [facility] AustinAeckzobNAGLPJASAT4778-28-40 21:12:00 Test Item Value Reference Range Interpretation Comments MPV (test code = MPV) 10.9 7.4-10.4 [facility] AustinGaplqudRMLOHYBGGC9818-39-72 21:12:00 Test Item Value Reference Range Interpretation Comments Platelet (test code = Platelet) 283 133-450 [facility] AustinWqwjynfVGGILUQVOE2287-68-98 21:12:00 Test Item Value Reference Range Interpretation Comments Hgb (test code = Hgb) 12.3 12.0-16.0 [facility] AustinQcodemdJGRQKFCRIM5034-07-63 21:12:00 Test Item Value Reference Range Interpretation Comments MCH (test code = MCH) 30.5 pg 27.0-31.0 [facility] AustinFiwfgbwHHRIKKQDYN3823-28-41 21:12:00 Test Item Value Reference Range Interpretation Comments MCV (test code = MCV) 89.5 80.0-98.0 [facility] AustinNahkrukCNTFXHYPDU8074-21-77 21:12:00 Test Item Value Reference Range Interpretation Comments RBC (test code = RBC) 4.03 4.20-5.40 [facility] AustinKkzogohOBACXDCXTD7251-58-86 21:12:00 Test Item Value Reference Range Interpretation Comments Hct (test code = Hct) 36.1 36.0-48.0 [facility] AustinSmtmlrlLKERNUZWKM9558-99-55 21:12:00 Test Item Value Reference Range Interpretation Comments RDW (test code = RDW) 13.4 11.5-14.5 [facility] AustinTahivysCIYSVGXXIV0058-81-12 21:12:00 Test Item Value Reference Range Interpretation Comments MCHC (test code = MCHC) 34.1 32.0-36.0 [facility] AustinXnfcnquENDWTWTCQN2080-09-92 21:12:00 Test Item Value Reference Range Interpretation Comments WBC (test code = WBC) 7.6 3.7-10.4 [facility]ipKOXDUXKQWVRN1772-50-71 10:13:00 Test Item Value Reference Range Interpretation Comments AGAP (test code = AGAP) 16.7 10.0-20.0 [facility]OpufltvWEEZYJRLXXLW3563-67-58 10:13:00 Test Item Value Reference Range Interpretation Comments eGFR (test code = eGFR) 128 [facility] HospitalRebqoguGDXJJXJSWYIH5965-58-75 10:13:00 Test Item Value Reference Range Interpretation Comments Creatinine Lvl (test code = Creatinine 0.57 0.50-1.40 Lvl) [facility] HospitalXyspkljTSLEMUWIOMWM3506-17-17 10:13:00 Test Item Value Reference Range Interpretation Comments CO2 (test code = CO2) 22 24-32 [facility] HospitalHsutipdULNCJOVSNXOH6363-52-42 10:13:00 Test Item Value Reference Range Interpretation Comments Calcium Lvl (test code = Calcium Lvl) 8.8 8.5-10.5 [facility] HospitalAtunxvaINJPMOXYSRZD7176-72-49 10:13:00 Test Item Value Reference Range Interpretation Comments Glucose Lvl (test code = Glucose Lvl) 308 70-99 [facility] HospitalIecgempSWLUEIHFRRAP2783-87-32 10:13:00 Test Item Value Reference Range Interpretation Comments Sodium Lvl (test code = Sodium Lvl) 138 135-145 [facility] HospitalLjwxdsjGDELUPQPTIUH9780-65-37 10:13:00 Test Item Value Reference Range Interpretation Comments BUN (test code = BUN) 10 7-22 [facility] HospitalLrqcapoYKIFYYHRPCCN9974-48-12 10:13:00 Test Item Value Reference Range Interpretation Comments Chloride Lvl (test code = Chloride Lvl) 103 95-109 [facility] HospitalMbxxlxhAKFTQEENTCQC1017-01-13 10:13:00 Test Item Value Reference Range Interpretation Comments Potassium Lvl (test code = Potassium 3.7 3.5-5.1 Lvl) [facility] AustinObygcssNSGEORPBQH3356-92-26 10:13:00 Test Item Value Reference Range Interpretation Comments RDW (test code = RDW) 13.4 11.5-14.5 [facility] AustinCbrwxqvNZLXUBHDHC6451-87-01 10:13:00 Test Item Value Reference Range Interpretation Comments Platelet (test code = Platelet) 234 133-450 [facility] AustinAjqmhgdDQRYLZBZKF9662-96-77 10:13:00 Test Item Value Reference Range Interpretation Comments MPV (test code = MPV) 10.5 7.4-10.4 [facility] AustinJrjljeyDOLHSBYICW2044-20-30 10:13:00 Test Item Value Reference Range Interpretation Comments MCHC (test code = MCHC) 32.3 32.0-36.0 [facility] AustinJkvybalHNLWQFYPYF8833-07-23 10:13:00 Test Item Value Reference Range Interpretation Comments Hct (test code = Hct) 35.8 36.0-48.0 [facility] AustinLqpsirgBMCESARYOG5101-57-90 10:13:00 Test Item Value Reference Range Interpretation Comments MCV (test code = MCV) 92.2 80.0-98.0 [facility] AustinZqcdzeaCBRGWCAVAF2238-50-70 10:13:00 Test Item Value Reference Range Interpretation Comments MCH (test code = MCH) 29.8 pg 27.0-31.0 [facility] AustinWmndiosOYDIGUIBBB4336-23-12 10:13:00 Test Item Value Reference Range Interpretation Comments Hgb (test code = Hgb) 11.6 12.0-16.0 [facility] AustinRhsyvjrVOBJFSBHNH3015-08-26 10:13:00 Test Item Value Reference Range Interpretation Comments WBC (test code = WBC) 6.9 3.7-10.4 [facility] AustinAthwiewIQTMKGLSUZ9254-64-92 10:13:00 Test Item Value Reference Range Interpretation Comments RBC (test code = RBC) 3.89 4.20-5.40 [facility] AustinRsauxkvGMFKTXXLNY2538-49-88 10:13:00 Test Item Value Reference Range Interpretation Comments Basophils # (test code 0.1 See_Comment [Aut omated message] The = Basophils #) system which generated this result tra nsmitted reference range : <=0.2. The reference r laxmi was not used to int erpret this result as normal/abnormal . [facility] AustinPohctewMEKIRFXCNG8675-99-87 10:13:00 Test Item Value Reference Range Interpretation Comments Segs-Bands # (test code = Segs-Bands #) 3.1 1.5-8.1 [facility] AustinLakqhaqPDJRVXLIAR5725-69-78 10:13:00 Test Item Value Reference Range Interpretation Comments Lymphocytes # (test code = Lymphocytes 3.1 1.0-5.5 #) [facility] AustinGppvlmfFFJCSSXMNV3598-88-63 10:13:00 Test Item Value Reference Range Interpretation Comments Eosinophils # (test code 0.2 See_Comment [A utomated message] The = Eosinophils #) system whic h generated this result tra nsmitted reference range : <=0.5. The reference r laxmi was not used to int erpret this result as normal/abnormal . [facility] AustinLyouiztJNPYSDYJHU4689-75-92 10:13:00 Test Item Value Reference Range Interpretation Comments Monocytes # (test code 0.5 See_Comment [Aut omated message] The = Monocytes #) system which generated this result tra nsmitted reference range : <=0.8. The reference r laxmi was not used to int erpret this result as normal/abnormal . [facility] AustinPyvkjvbLGUSZPNVTI6597-03-72 10:13:00 Test Item Value Reference Range Interpretation Comments Lymphocytes (test code = Lymphocytes) 44.0 20.0-40.0 [facility] AustinDqigiroNWQSNJISMN1194-40-78 10:13:00 Test Item Value Reference Range Interpretation Comments Monocytes (test code = Monocytes) 7.4 2.0-12.0 [facility] AustinJpmabnaPBEFOOPMSD4217-03-46 10:13:00 Test Item Value Reference Range Interpretation Comments Eosinophils (test code = 3.0 See_Comment [A utomated message] The Eosinophils) system which ge nerated this result tra nsmitted reference range : <=4.0. The reference r laxmi was not used to int erpret this result as normal/abnormal . [facility] AustinMyyfzxtJRHUBOAHLN3367-03-03 10:13:00 Test Item Value Reference Range Interpretation Comments Basophils (test code = 1.3 See_Comment [Aut omated message] The Basophils) system which ge nerated this result tra nsmitted reference range : <=1.0. The reference r laxmi was not used to int erpret this result as normal/abnormal . [facility] AustinXajlbljFVUCWHCOQJ7799-93-98 10:13:00 Test Item Value Reference Range Interpretation Comments Segs (test code = Segs) 44.3 45.0-75.0 [facility] THL HoldingsCARDIPurpleBricks JQVDCPQ1945-28-92 11:55:00 Test Item Value Reference Range Interpretation Comments Total CK (test code = Total CK) 69 12-191 [facility]lineEcoS[facility] LightingDEAC[facility] JAYIKZQ7433-59-70 11:55:00 Test Item Value Reference Range Interpretation Comments Troponin-I (test code no gt See_Comment [Auto mated message] The = Troponin-I) system which g enerated this result transmit irma reference range : <=0.40. The reference r laxmi was not used to interpr et this result as gabi l/abnormal. [facility] HospitalSMS THL HoldingsCHEM QXKMX0230-32-59 11:55:00 Test Item Value Reference Range Interpretation Comments eGFR (test code = eGFR) 105 [facility]2016-02-11 11:55:00 Test Item Value Reference Range Interpretation Comments Creatinine Lvl (test code = Creatinine 0.78 0.50-1.40 Lvl) [facility]2016-02-11 11:55:00 Test Item Value Reference Range Interpretation Comments AGAP (test code = AGAP) 14.9 10.0-20.0 [facility]2016-02-11 11:55:00 Test Item Value Reference Range Interpretation Comments Calcium Lvl (test code = Calcium Lvl) 8.8 8.5-10.5 [facility]2016-02-11 11:55:00 Test Item Value Reference Range Interpretation Comments Chloride Lvl (test code = Chloride Lvl) 98 95-109 [facility]2016-02-11 11:55:00 Test Item Value Reference Range Interpretation Comments CO2 (test code = CO2) 25 24-32 [facility]2016-02-11 11:55:00 Test Item Value Reference Range Interpretation Comments Potassium Lvl (test code = Potassium 3.9 3.5-5.1 Lvl) [facility]2016-02-11 11:55:00 Test Item Value Reference Range Interpretation Comments Sodium Lvl (test code = Sodium Lvl) 134 135-145 [facility]2016-02-11 11:55:00 Test Item Value Reference Range Interpretation Comments Glucose Lvl (test code = Glucose Lvl) 388 70-99 [facility]2016-02-11 11:55:00 Test Item Value Reference Range Interpretation Comments BUN (test code = BUN) 11 7-22 [facility] SpringsSwbmvsiQEZNFXHWRXXUW1066-92-69 11:55:00 Test Item Value Reference Range Interpretation Comments S Preg (test code = S Negative *NA*(06/04/15 Preg) 5:55 AM) [facility] ShorelinePfqjdnaXUHMVM2303-52-96 11:55:00 Test Item Value Reference Range Interpretation Comments LDL (Calculated) (test code = See Note mg/dL LDL (Calculated)) [facility] ShorelineNvjdtalFZZZHI6450-58-41 11:55:00 Test Item Value Reference Range Interpretation Comments VLDL (test code = See Note 2*NA*(06/04/15 VLDL) 5:55 AM) [facility] GheqicdJWVIHJ9456-27-58 11:55:00 Test Item Value Reference Range Interpretation Comments Chol (test code = Chol) 223 [facility] RcehtdaMKDTFP5462-42-79 11:55:00 Test Item Value Reference Range Interpretation Comments Trig (test code = Trig) 567 [facility] VazumtmLJJDMJ3921-44-57 11:55:00 Test Item Value Reference Range Interpretation Comments HDL (test code = HDL) 26 [facility] UdftrjnDNFZCO7583-21-27 11:55:00 Test Item Value Reference Range Interpretation Comments CHD Risk (test code = CHD Risk) 8.58 3.90-5.80 [facility] ODTNGXV8946-95-89 06:00:00 Test Item Value Reference Range Interpretation Comments CK MB (test code = CK MB) no gt 0.5-3.6 [facility] CISSOFU4011-99-54 06:00:00 Test Item Value Reference Range Interpretation Comments CK MB Index (test no gt See_Comment [Automate d message] The code = CK MB Index) system w [facility] generated this result transmit irma reference range : <=2.5. The reference range was not used to interpr et this result as gabi l/abnormal. [facility] HospitalannCARDIAC OZILNWQ3272-66-99 06:00:00 Test Item Value Reference Range Interpretation Comments Troponin-I (test code no gt See_Comment [Auto mated message] The = Troponin-I) system which g enerated this result transmit irma reference range : <=0.40. The reference r laxmi was not used to interpr et this result as gabi l/abnormal. [facility] IFZKYNY0412-94-02 06:00:00 Test Item Value Reference Range Interpretation Comments Total CK (test code = Total CK) 76 12-191 [facility] GGRGO7155-98-28 23:33:00 Test Item Value Reference Range Interpretation Comments UA Urobilinogen (test code = UA <=1.0 mg/dL 0.1-1.0 Urobilinogen) [facility] RJBRA0720-29-12 23:33:00 Test Item Value Reference Range Interpretation Comments UA Color (test code = UA Color) Colorless [facility] [id number] 23:33:00 Test Item Value Reference Range Interpretation Comments UA Glucose (test code = UA Glucose) 500 mg/dL [facility] AND KGBBC1808-03-74 23:33:00 Test Item Value Reference Range Interpretation Comments UA Ketones (test code = UA Negative mg/dL Ketones) [facility] AND VNDKJ3788-93-28 23:33:00 Test Item Value Reference Range Interpretation Comments UA Bili (test code = Negative *NA*(06/03/15 UA Bili) 5:33 PM) [facility] AND NRHPF5548-06-80 23:33:00 Test Item Value Reference Range Interpretation Comments UA Blood (test code = Negative (06/03/15 5:33 UA Blood) PM) [facility] AND [id number] 23:33:00 Test Item Value Reference Range Interpretation Comments UA Spec Grav (test code = UA Spec Grav) 1.018 [facility] AND [id number] 23:33:00 Test Item Value Reference Range Interpretation Comments UA pH (test code = UA pH) 5.0 5.0-8.0 [facility] AND ETNKQ8314-40-18 23:33:00 Test Item Value Reference Range Interpretation Comments UA Protein (test code = UA Negative mg/dL Protein) [facility] AND WEEMC0914-80-09 23:33:00 Test Item Value Reference Range Interpretation Comments UA Leuk Est (test Negative (06/03/15 5:33 code = UA Leuk Est) PM) [facility] AND [id number] 23:33:00 Test Item Value Reference Range Interpretation Comments UA Nitrite (test code Negative (06/03/15 5:33 = UA Nitrite) PM) [facility] AND [id number] 23:33:00 Test Item Value Reference Range Interpretation Comments UA RBC (test code = no gt See_Comment [Automa irma message] The UA RBC) system which ge nerated this result transmit irma reference range : <=2. The reference range was not used to interpr et this result as gabi l/abnormal. [facility] AND GOQJZ7853-32-40 23:33:00 Test Item Value Reference Range Interpretation Comments UA WBC (test code = no gt See_Comment [Automa irma message] The UA WBC) system which ge nerated this result transmit irma reference range : <=5. The reference range was not used to interpr et this result as gabi l/abnormal. [facility] YSGRF3056-88-06 23:33:00 Test Item Value Reference Range Interpretation Comments UA Sq Epi (test code = UA Sq Epi) None Seen [facility] EYKSW9231-16-29 23:33:00 Test Item Value Reference Range Interpretation Comments UA Turbidity (test code = Clear (06/03/15 5:33 UA Turbidity) PM) [facility] MTJCZPA2715-05-03 23:04:00 Test Item Value Reference Range Interpretation Comments Total CK (test code = Total CK) 79 12-191 [facility]annCARDIAC YAQMADW2048-18-32 23:04:00 Test Item Value Reference Range Interpretation Comments CK MB (test code = CK MB) no gt 0.5-3.6 [facility] AannCARHyper9AC CWLJCCL0828-05-20 23:04:00 Test Item Value Reference Range Interpretation Comments Troponin-I (test code no gt See_Comment [Auto mated message] The = Troponin-I) system which g enerated this result transmit irma reference range : <=0.40. The reference r laxmi was not used to interpr et this result as gabi l/abnormal. [facility] LabsAC FQPKGUN2866-93-69 23:04:00 Test Item Value Reference Range Interpretation Comments CK MB Index (test no gt See_Comment [Automate d message] The code = CK MB Index) system w [facility] generated this result transmit irma reference range : <=2.5. The reference range was not used to interpr et this result as gabi l/abnormal. [facility] [id number] 23:04:00 Test Item Value Reference Range Interpretation Comments Alk Phos (test code = Alk Phos) 116 39-136 [facility] [id number] 23:04:00 Test Item Value Reference Range Interpretation Comments Bili Total (test code = Bili Total) 0.4 0.2-1.3 [facility] AannCor[employer] EYHXQ4770-12-14 23:04:00 Test Item Value Reference Range Interpretation Comments eGFR (test code = eGFR) 58 [facility] [id number] 23:04:00 Test Item Value Reference Range Interpretation Comments CO2 (test code = CO2) 23 24-32 [facility]2016-02-10 23:04:00 Test Item Value Reference Range Interpretation Comments Potassium Lvl (test code = Potassium 3.8 3.5-5.1 Lvl) [facility]2016-02-10 23:04:00 Test Item Value Reference Range Interpretation Comments Chloride Lvl (test code = Chloride Lvl) 90 95-109 [facility]2016-02-10 23:04:00 Test Item Value Reference Range Interpretation Comments AGAP (test code = AGAP) 17.8 10.0-20.0 [facility]2016-02-10 23:04:00 Test Item Value Reference Range Interpretation Comments Calcium Lvl (test code = Calcium Lvl) 9.1 8.5-10.5 [facility]2016-02-10 23:04:00 Test Item Value Reference Range Interpretation Comments B/C Ratio (test code = B/C Ratio) 10 6-25 [facility]2016-02-10 23:04:00 Test Item Value Reference Range Interpretation Comments Total Protein (test code = Total 8.1 6.4-8.4 Protein) [facility]2016-02-10 23:04:00 Test Item Value Reference Range Interpretation Comments Albumin Lvl (test code = Albumin Lvl) 3.8 3.5-5.0 [facility]2016-02-10 23:04:00 Test Item Value Reference Range Interpretation Comments Globulin (test code = Globulin) 4.3 2.0-4.0 [facility]2016-02-10 23:04:00 Test Item Value Reference Range Interpretation Comments A/G Ratio (test code = A/G Ratio) 0.9 0.7-1.6 [facility]2016-02-10 23:04:00 Test Item Value Reference Range Interpretation Comments ALANINE AMINOTRANSFERASE 38 See_Comment [A utomated message] (test code = ALANINE The sys tem which AMINOTRANSFERASE) generated this result transmitted ref erence range: <=65. Th e reference range was not used to int erpret this result as normal/abnormal . [facility]2016-02-10 23:04:00 Test Item Value Reference Range Interpretation Comments AST (test code = AST) 25 See_Comment [Auto mated message] The system which ge nerated this result transmit irma reference range : <=37. The reference range was not used to interpr et this result as gabi l/abnormal. [facility]2016-02-10 23:04:00 Test Item Value Reference Range Interpretation Comments BUN (test code = BUN) 13 7-22 [facility]2016-02-10 23:04:00 Test Item Value Reference Range Interpretation Comments Creatinine Lvl (test code = Creatinine 1.28 0.50-1.40 Lvl) [facility]2016-02-10 23:04:00 Test Item Value Reference Range Interpretation Comments Sodium Lvl (test code = Sodium Lvl) 127 135-145 [facility]2016-02-10 23:04:00 Test Item Value Reference Range Interpretation Comments Glucose Lvl (test code = Glucose Lvl) 596 70-99 [facility] AustinZovduvyTRMXALYHAE1762-76-96 23:04:00 Test Item Value Reference Range Interpretation Comments MCHC (test code = MCHC) 33.3 32.0-36.0 [facility] AustinHmghakwOYMTEUKRMC8130-12-12 23:04:00 Test Item Value Reference Range Interpretation Comments RDW (test code = RDW) 13.3 11.5-14.5 [facility] AustinTryuwknARNHBXUUKB7194-86-98 23:04:00 Test Item Value Reference Range Interpretation Comments MCH (test code = MCH) 30.8 pg 27.0-31.0 [facility] AustinGxqotxvFFCQOWCENB4123-90-42 23:04:00 Test Item Value Reference Range Interpretation Comments Platelet (test code = Platelet) 276 133-450 [facility] AustinOgoeiwkOFSNONXDHT9291-59-64 23:04:00 Test Item Value Reference Range Interpretation Comments MPV (test code = MPV) 11.1 7.4-10.4 [facility] AustinSfbbrpaCMKPCRBZDF2295-65-93 23:04:00 Test Item Value Reference Range Interpretation Comments RBC (test code = RBC) 4.34 4.20-5.40 [facility] AustinUuptaaaDPGAJSQNIM2854-43-88 23:04:00 Test Item Value Reference Range Interpretation Comments MCV (test code = MCV) 92.7 80.0-98.0 [facility] AustinAirwbegDVGVCSZUIM0134-78-43 23:04:00 Test Item Value Reference Range Interpretation Comments Hct (test code = Hct) 40.2 36.0-48.0 [facility] AustinEwohpugPPYZZXZHYP2812-82-29 23:04:00 Test Item Value Reference Range Interpretation Comments Hgb (test code = Hgb) 13.4 12.0-16.0 [facility] AustinOhqofacHJRPUUNRSL5355-37-47 23:04:00 Test Item Value Reference Range Interpretation Comments WBC (test code = WBC) 7.4 3.7-10.4 [facility] AustinUnljkrjRAGHWFOBMI1885-93-59 23:04:00 Test Item Value Reference Range Interpretation Comments Basophils # (test code 0.1 See_Comment [Aut omated message] The = Basophils #) system which generated this result tra nsmitted reference range : <=0.2. The reference r laxmi was not used to int erpret this result as normal/abnormal . [facility] AustinZeetvqlRFSAQUWVWL7334-23-56 23:04:00 Test Item Value Reference Range Interpretation Comments Monocytes # (test code 0.5 See_Comment [Aut omated message] The = Monocytes #) system which generated this result tra nsmitted reference range : <=0.8. The reference r laxmi was not used to int erpret this result as normal/abnormal . [facility] AustinEpyncvoGNHHDTXLOP9896-64-91 23:04:00 Test Item Value Reference Range Interpretation Comments Eosinophils # (test code 0.1 See_Comment [A utomated message] The = Eosinophils #) system whic h generated this result tra nsmitted reference range : <=0.5. The reference r laxmi was not used to int erpret this result as normal/abnormal . [facility] AustinTbtnemmCNNTEHBOWZ7041-58-06 23:04:00 Test Item Value Reference Range Interpretation Comments Segs-Bands # (test code = Segs-Bands #) 4.4 1.5-8.1 [facility] AustinRslpkouUOKEOCQPZF1445-40-50 23:04:00 Test Item Value Reference Range Interpretation Comments Lymphocytes # (test code = Lymphocytes 2.3 1.0-5.5 #) [facility] AustinZqdskyxYZALRDPXJV1706-55-78 23:04:00 Test Item Value Reference Range Interpretation Comments Eosinophils (test code = 1.9 See_Comment [A utomated message] The Eosinophils) system which ge nerated this result tra nsmitted reference range : <=4.0. The reference r laxmi was not used to int erpret this result as normal/abnormal . [facility] AustinLzmrecnCCSHYSAKJP5335-99-06 23:04:00 Test Item Value Reference Range Interpretation Comments Basophils (test code = 1.3 See_Comment [Aut omated message] The Basophils) system which ge nerated this result tra nsmitted reference range : <=1.0. The reference r laxmi was not used to int erpret this result as normal/abnormal . [facility] AustinSwulqzoHHOLVICDUP8136-28-30 23:04:00 Test Item Value Reference Range Interpretation Comments Monocytes (test code = Monocytes) 6.5 2.0-12.0 [facility] AustinUmvwlcrUCZLZRFJPC1393-81-22 23:04:00 Test Item Value Reference Range Interpretation Comments Segs (test code = Segs) 59.5 45.0-75.0 [place] 064156-02-10 23:04:00 Test Item Value Reference Range Interpretation Comments Lymphocytes (test code = Lymphocytes) 30.8 20.0-40.0 [facility]2016-01-22 09:56:00 Test Item Value Reference Range Interpretation Comments eGFR (test code = eGFR) 108 [facility]2016-01-22 09:56:00 Test Item Value Reference Range Interpretation Comments Calcium Lvl (test code = Calcium Lvl) 8.5 8.5-10.5 [facility]2016-01-22 09:56:00 Test Item Value Reference Range Interpretation Comments Potassium Lvl (test code = Potassium 3.8 3.5-5.1 Lvl) [facility]2016-01-22 09:56:00 Test Item Value Reference Range Interpretation Comments Chloride Lvl (test code = Chloride Lvl) 100 95-109 [facility]2016-01-22 09:56:00 Test Item Value Reference Range Interpretation Comments CO2 (test code = CO2) 25 24-32 [facility]2016-01-22 09:56:00 Test Item Value Reference Range Interpretation Comments AGAP (test code = AGAP) 13.8 10.0-20.0 [facility]2016-01-22 09:56:00 Test Item Value Reference Range Interpretation Comments Sodium Lvl (test code = Sodium Lvl) 135 135-145 [facility]2016-01-22 09:56:00 Test Item Value Reference Range Interpretation Comments Glucose Lvl (test code = Glucose Lvl) 350 70-99 [facility]2016-01-22 09:56:00 Test Item Value Reference Range Interpretation Comments BUN (test code = BUN) 15.6 7-22 [facility]2016-01-22 09:56:00 Test Item Value Reference Range Interpretation Comments Creatinine Lvl (test code = Creatinine 0.77 0.50-1.40 Lvl) [place] 064156-01-22 09:56:00 Test Item Value Reference Range Interpretation Comments Segs (test code = Segs) 46.0 45.0-75.0 [place] 064156-01-22 09:56:00 Test Item Value Reference Range Interpretation Comments Monocytes (test code = Monocytes) 12.6 2.0-12.0 [facility]YidndmaJLEKBFOFJI8063-80-79 09:56:00 Test Item Value Reference Range Interpretation Comments Lymphocytes (test code = Lymphocytes) 36.8 20.0-40.0 [place] 064156-01-22 09:56:00 Test Item Value Reference Range Interpretation Comments Lymphocytes # (test code = Lymphocytes 1.9 1.0-5.5 #) [facility] AustinUnezlvtWZWYLMABVD6253-75-91 09:56:00 Test Item Value Reference Range Interpretation Comments Basophils # (test code 0.1 See_Comment [Aut omated message] The = Basophils #) system which generated this result tra nsmitted reference range : <=0.2. The reference r laxmi was not used to int erpret this result as normal/abnormal . [facility] AustinJfeikxjPAHTZBAXVJ0574-51-96 09:56:00 Test Item Value Reference Range Interpretation Comments Eosinophils (test code = 3.2 See_Comment [A utomated message] The Eosinophils) system which ge nerated this result tra nsmitted reference range : <=4.0. The reference r laxmi was not used to int erpret this result as normal/abnormal . [place] 064156-01-22 09:56:00 Test Item Value Reference Range Interpretation Comments Segs-Bands # (test code = Segs-Bands #) 2.4 1.5-8.1 [place] 064156-01-22 09:56:00 Test Item Value Reference Range Interpretation Comments Basophils (test code = 1.4 See_Comment [Aut omated message] The Basophils) system which ge nerated this result tra nsmitted reference range : <=1.0. The reference r laxmi was not used to int erpret this result as normal/abnormal . [facility] AustinMhzkiyvAYOGAZVTKG9053-06-35 09:56:00 Test Item Value Reference Range Interpretation Comments Eosinophils # (test code 0.2 See_Comment [A utomated message] The = Eosinophils #) system whic h generated this result tra nsmitted reference range : <=0.5. The reference r laxmi was not used to int erpret this result as normal/abnormal . [facility] AustinLptaxiqDWWSGFXJNF7129-29-95 09:56:00 Test Item Value Reference Range Interpretation Comments Monocytes # (test code 0.7 See_Comment [Aut omated message] The = Monocytes #) system which generated this result tra nsmitted reference range : <=0.8. The reference r laxmi was not used to int erpret this result as normal/abnormal . [facility] AustinBotbxhxZEWJPXKAOW5492-04-34 09:56:00 Test Item Value Reference Range Interpretation Comments MCH (test code = MCH) 31.4 pg 27.0-31.0 [facility] AustinDducrexIJESRJDZNC1562-63-50 09:56:00 Test Item Value Reference Range Interpretation Comments Hct (test code = Hct) 35.0 36.0-48.0 [facility] AustinHwqfargEFTCBTLHFY5919-55-11 09:56:00 Test Item Value Reference Range Interpretation Comments MCV (test code = MCV) 92.6 80.0-98.0 [facility] AustinFqbuodmJCQTSQGMOO4751-50-35 09:56:00 Test Item Value Reference Range Interpretation Comments WBC (test code = WBC) 5.2 3.7-10.4 [facility] AustinFllkgkvLGGJTQYSMN0784-95-48 09:56:00 Test Item Value Reference Range Interpretation Comments MCHC (test code = MCHC) 33.9 32.0-36.0 [facility] AustinDhspwusWMRNRPDEHN7052-18-09 09:56:00 Test Item Value Reference Range Interpretation Comments RDW (test code = RDW) 13.5 11.5-14.5 [facility] AustinNvkynqaDSEDENERYX8598-00-16 09:56:00 Test Item Value Reference Range Interpretation Comments RBC (test code = RBC) 3.78 4.20-5.40 [facility]WnqrmveAHVZQNOKGL7192-03-50 09:56:00 Test Item Value Reference Range Interpretation Comments Hgb (test code = Hgb) 11.9 12.0-16.0 [facility]MPISFP5761[facility]14-70 09:56:00 Test Item Value Reference Range Interpretation Comments MPV (test code = MPV) 10.5 7.4-10.4 [facility]lineOazvprzPMGGBWGLSW7574-36-98 09:56:00 Test Item Value Reference Range Interpretation Comments Platelet (test code = Platelet) 198 133-450 [facility] ShorelineTuicool OAKWXEH0902-51-20 09:48:00 Test Item Value Reference Range Interpretation Comments Total CK (test code = Total CK) 73 12-191 [facility] ZDAGWDF1109-74-06 09:48:00 Test Item Value Reference Range Interpretation Comments Troponin-I (test code no gt See_Comment [Auto mated message] The = Troponin-I) system which g enerated this result transmit irma reference range : <=0.40. The reference r laxmi was not used to interpr et this result as gabi l/abnormal. [facility] ShorelineDynamo MediaDNAAOXR3142-45-19 03:51:00 Test Item Value Reference Range Interpretation Comments CK MB Index (test no gt See_Comment [Automate d message] The code = CK MB Index) system [facility] generated this result transmit irma reference range : <=2.5. The reference range was not used to interpr et this result as gabi l/abnormal. [facility] ShorelineDynamo MediaLBNJKUK1740-13-47 03:51:00 Test Item Value Reference Range Interpretation Comments CK MB (test code = CK MB) no gt 0.5-3.6 [facility] ShorelineDynamo MediaCJQZVTE2037-18-17 03:51:00 Test Item Value Reference Range Interpretation Comments Troponin-I (test code no gt See_Comment [Auto mated message] The = Troponin-I) system which g enerated this result transmit irma reference range : <=0.40. The reference r laxmi was not used to interpr et this result as gabi l/abnormal. [facility]ita[facility] 03:51:00 Test Item Value Reference Range Interpretation Comments Total CK (test code = Total CK) 85 12-191 [facility] [employer] REZMZHH8962-45-60 21:01:00 Test Item Value Reference Range Interpretation Comments CK MB Index (test no gt See_Comment [Automate d message] The code = CK MB Index) system w [facility] generated this result transmit irma reference range : <=2.5. The reference range was not used to interpr et this result as gabi l/abnormal. [facility] [employer] VZOMBOY6210-77-48 21:01:00 Test Item Value Reference Range Interpretation Comments Total CK (test code = Total CK) 104 12-191 [facility] [employer] BLZQVBW4700-72-86 21:01:00 Test Item Value Reference Range Interpretation Comments Troponin-I (test code no gt See_Comment [Auto mated message] The = Troponin-I) system which g enerated this result transmit irma reference range : <=0.40. The reference r laxmi was not used to interpr et this result as gabi l/abnormal. [facility] [employer]2016-01-20 21:01:00 Test Item Value Reference Range Interpretation Comments CK MB (test code = CK MB) no gt 0.5-3.6 [facility] [employer] [id number] 21:01:00 Test Item Value Reference Range Interpretation Comments Globulin (test code = Globulin) 4.2 2.0-4.0 [employer] [id number] 21:01:00 Test Item Value Reference Range Interpretation Comments Albumin Lvl (test code = Albumin Lvl) 4.0 3.5-5.0 [employer] [id number] 21:01:00 Test Item Value Reference Range Interpretation Comments Total Protein (test code = Total 8.2 6.4-8.4 Protein) [employer] [id number] 21:01:00 Test Item Value Reference Range Interpretation Comments AGAP (test code = AGAP) 14.8 10.0-20.0 [employer] [id number] 21:01:00 Test Item Value Reference Range Interpretation Comments CO2 (test code = CO2) 26 24-32 [employer] [id number] 21:01:00 Test Item Value Reference Range Interpretation Comments B/C Ratio (test code = B/C Ratio) 9 6-25 [facility]2016-01-20 21:01:00 Test Item Value Reference Range Interpretation Comments Chloride Lvl (test code = Chloride Lvl) 93 95-109 [facility]2016-01-20 21:01:00 Test Item Value Reference Range Interpretation Comments Calcium Lvl (test code = Calcium Lvl) 9.7 8.5-10.5 [facility]2016-01-20 21:01:00 Test Item Value Reference Range Interpretation Comments eGFR (test code = eGFR) 76 [facility]2016-01-20 21:01:00 Test Item Value Reference Range Interpretation Comments Bili Total (test code = Bili Total) 0.5 0.2-1.3 [facility]2016-01-20 21:01:00 Test Item Value Reference Range Interpretation Comments Alk Phos (test code = Alk Phos) 90 39-136 [facility]2016-01-20 21:01:00 Test Item Value Reference Range Interpretation Comments A/G Ratio (test code = A/G Ratio) 1.0 0.7-1.6 [facility]2016-01-20 21:01:00 Test Item Value Reference Range Interpretation Comments AST (test code = AST) 15 See_Comment [Auto mated message] The system which ge nerated this result transmit irma reference range : <=37. The reference range was not used to interpr et this result as gabi l/abnormal. [facility]2016-01-20 21:01:00 Test Item Value Reference Range Interpretation Comments ALT (test code = ALT) 37 See_Comment [Auto mated message] The system which ge nerated this result transmit irma reference range : <=65. The reference range was not used to interpr et this result as gabi l/abnormal. [facility]2016-01-20 21:01:00 Test Item Value Reference Range Interpretation Comments Creatinine Lvl (test code = Creatinine 1.02 0.50-1.40 Lvl) [facility]2016-01-20 21:01:00 Test Item Value Reference Range Interpretation Comments BUN (test code = BUN) 9 7-22 [facility]2016-01-20 21:01:00 Test Item Value Reference Range Interpretation Comments Potassium Lvl (test code = Potassium 3.8 3.5-5.1 Lvl) [facility]2016-01-20 21:01:00 Test Item Value Reference Range Interpretation Comments Sodium Lvl (test code = Sodium Lvl) 130 135-145 [facility]2016-01-20 21:01:00 Test Item Value Reference Range Interpretation Comments Glucose Lvl (test code = Glucose Lvl) 468 70-99 [facility] AustinRengfrkVBKAWYZKMK8124-91-33 21:01:00 Test Item Value Reference Range Interpretation Comments Basophils # (test code 0.1 See_Comment [Aut omated message] The = Basophils #) system which generated this result tra nsmitted reference range : <=0.2. The reference r laxmi was not used to int erpret this result as normal/abnormal . [facility] AustinIdkensoXDEWAMUHSM5993-84-64 21:01:00 Test Item Value Reference Range Interpretation Comments Monocytes # (test code 0.4 See_Comment [Aut omated message] The = Monocytes #) system which generated this result tra nsmitted reference range : <=0.8. The reference r laxmi was not used to int erpret this result as normal/abnormal . [facility] AustinYmfcuwxCEXCWFXGJS4353-69-65 21:01:00 Test Item Value Reference Range Interpretation Comments Eosinophils # (test code 0.1 See_Comment [A utomated message] The = Eosinophils #) system whic h generated this result tra nsmitted reference range : <=0.5. The reference r laxmi was not used to int erpret this result as normal/abnormal . [facility] AustinXqusgnpJRAXFOIDLX1491-89-85 21:01:00 Test Item Value Reference Range Interpretation Comments Segs (test code = Segs) 65.9 45.0-75.0 [facility] AustinHuxwwjtYUHAGYBBQG8903-85-96 21:01:00 Test Item Value Reference Range Interpretation Comments Eosinophils (test code = 1.0 See_Comment [A utomated message] The Eosinophils) system which ge nerated this result tra nsmitted reference range : <=4.0. The reference r laxmi was not used to int erpret this result as normal/abnormal . [facility] AustinEugysgoDGYTTXAOIB6716-82-11 21:01:00 Test Item Value Reference Range Interpretation Comments Basophils (test code = 0.7 See_Comment [Aut omated message] The Basophils) system which ge nerated this result tra nsmitted reference range : <=1.0. The reference r laxmi was not used to int erpret this result as normal/abnormal . [facility] AustinRalqddxZWQTEFNAEC0909-69-64 21:01:00 Test Item Value Reference Range Interpretation Comments Monocytes (test code = Monocytes) 4.8 2.0-12.0 [facility] AustinCfhlccgSCIEYOJYWK5920-35-06 21:01:00 Test Item Value Reference Range Interpretation Comments Lymphocytes # (test code = Lymphocytes 2.5 1.0-5.5 #) [facility] AustinCnmpbohQCGHNTQKBA0270-00-95 21:01:00 Test Item Value Reference Range Interpretation Comments Lymphocytes (test code = Lymphocytes) 27.6 20.0-40.0 [facility] AustinQcizvstJUDQSUUXJF5211-16-49 21:01:00 Test Item Value Reference Range Interpretation Comments Segs-Bands # (test code = Segs-Bands #) 6.0 1.5-8.1 [facility] AustinTmvfcesNWYVNBFXWG5292-26-08 21:01:00 Test Item Value Reference Range Interpretation Comments WBC (test code = WBC) 9.2 3.7-10.4 [facility] AustinGcwzybsJLRZOGQEFO2513-12-59 21:01:00 Test Item Value Reference Range Interpretation Comments MCV (test code = MCV) 91.5 80.0-98.0 [facility] AustinVqudwaaBSPZUSBDJP2354-33-63 21:01:00 Test Item Value Reference Range Interpretation Comments Hct (test code = Hct) 39.2 36.0-48.0 [facility] AustinAbsnympCVVQTTUIMP2463-79-94 21:01:00 Test Item Value Reference Range Interpretation Comments Hgb (test code = Hgb) 12.8 12.0-16.0 [facility] AustinOfqzkrdMZFXTVESPD1487-36-44 21:01:00 Test Item Value Reference Range Interpretation Comments RBC (test code = RBC) 4.29 4.20-5.40 [facility] AustinCkcafbiJWGKSTQUMB1726-20-20 21:01:00 Test Item Value Reference Range Interpretation Comments MCH (test code = MCH) 29.8 pg 27.0-31.0 [facility] AustinQolkrfoQEMTOOAXHD0659-54-07 21:01:00 Test Item Value Reference Range Interpretation Comments RDW (test code = RDW) 13.2 11.5-14.5 [facility] AustinAawkoqwKIPMNSESSF0122-39-34 21:01:00 Test Item Value Reference Range Interpretation Comments MPV (test code = MPV) 10.9 7.4-10.4 [facility] AustinLloauxjPCQTMUBKPB0956-73-48 21:01:00 Test Item Value Reference Range Interpretation Comments Platelet (test code = Platelet) 217 133-450 [facility] AustinBayyzqiZZWYZTFHOX7028-12-89 21:01:00 Test Item Value Reference Range Interpretation Comments MCHC (test code = MCHC) 32.5 32.0-36.0 [facility] AND [id number] 21:01:00 Test Item Value Reference Range Interpretation Comments UA Color (test code = UA Color) Ltyellow [facility] AND [id number] 21:01:00 Test Item Value Reference Range Interpretation Comments UA Urobilinogen (test code = UA <=1.0 mg/dL 0.1-1.0 Urobilinogen) [facility] AND [id number] 21:01:00 Test Item Value Reference Range Interpretation Comments UA Leuk Est (test Negative (05/13/15 3:01 code = UA Leuk Est) PM) [facility] AND [id number] 21:01:00 Test Item Value Reference Range Interpretation Comments UA Nitrite (test code Negative (05/13/15 3:01 = UA Nitrite) PM) [facility] AND [id number] 21:01:00 Test Item Value Reference Range Interpretation Comments UA Blood (test code = Negative (05/13/15 3:01 UA Blood) PM) [facility] AND [id number] 21:01:00 Test Item Value Reference Range Interpretation Comments UA WBC (test code = no gt See_Comment [Automa irma message] The UA WBC) system which ge nerated this result transmit irma reference range : <=5. The reference range was not used to interpr et this result as gabi l/abnormal. [facility] AND [id number] 21:01:00 Test Item Value Reference Range Interpretation Comments UA Sq Epi (test code = UA Sq Occasional /LPF Epi) [facility] AND [id number] 21:01:00 Test Item Value Reference Range Interpretation Comments UA RBC (test code = 2 See_Comment [Automa irma message] The UA RBC) system which ge nerated this result transmit irma reference range : <=2. The reference range was not used to interpr et this result as gabi l/abnormal. [facility] AND [id number] 21:01:00 Test Item Value Reference Range Interpretation Comments UA Turbidity (test code = Clear (05/13/15 3:01 UA Turbidity) PM) [facility] AND [id number] 21:01:00 Test Item Value Reference Range Interpretation Comments UA Spec Grav (test code = UA Spec Grav) 1.028 [facility] AND [id number] 21:01:00 Test Item Value Reference Range Interpretation Comments UA pH (test code = UA pH) 7.0 5.0-8.0 [facility] AND [id number] 21:01:00 Test Item Value Reference Range Interpretation Comments UA Protein (test code = UA Negative mg/dL Protein) [facility] AND [id number] 21:01:00 Test Item Value Reference Range Interpretation Comments UA Bili (test code = Negative *NA*(05/13/15 UA Bili) 3:01 PM) [facility] AND [id number] 21:01:00 Test Item Value Reference Range Interpretation Comments UA Glucose (test code = UA Glucose) 500 mg/dL [facility] AND [id number] 21:01:00 Test Item Value Reference Range Interpretation Comments UA Ketones (test code = UA Ketones) 20 mg[facility]dL [facility] [id number] 07:42:00 Test Item Value Reference Range Interpretation Comments CK MB Index (test 0.5 See_Comment [Automate d message] The code = CK MB Index) system w [facility] generated this result transmit irma reference range : <=2.5. The reference range was not used to interpr et this result as gabi l/abnormal. [facility]lineC[facility] [id number] 07:42:00 Test Item Value Reference Range Interpretation Comments CK MB (test code = CK MB) 0.7 0.5-3.6 [facility] DAHIMHP0613-07-35 07:42:00 Test Item Value Reference Range Interpretation Comments Total CK (test code = Total CK) 129 12-191 [facility] [place] AannCARDIAC ACLJZII7677-71-99 07:42:00 Test Item Value Reference Range Interpretation Comments Troponin-I (test code no gt See_Comment [Auto mated message] The = Troponin-I) system which g enerated this result transmit irma reference range : <=0.40. The reference r laxmi was not used to interpr et this result as gabi l/abnormal. [facility] PznutchREBMPV7728-25-88 07:42:00 Test Item Value Reference Range Interpretation Comments VLDL (test code = See Note 2*NA*(05/02/15 VLDL) 1:42 AM) [facility] HospitalSipcsadWCRJHV0588-22-41 07:42:00 Test Item Value Reference Range Interpretation Comments LDL (Calculated) (test code = See Note mg/dL LDL (Calculated)) [facility] HospitalOvhkxruNKKNMT2116-94-48 07:42:00 Test Item Value Reference Range Interpretation Comments HDL (test code = HDL) 21 [facility] PalgmaeLHBKBB1141-50-03 07:42:00 Test Item Value Reference Range Interpretation Comments CHD Risk (test code = CHD Risk) 9.33 3.90-5.80 [facility] EgaueujIQUPRC5416-96-48 07:42:00 Test Item Value Reference Range Interpretation Comments Trig (test code = Trig) 951 [facility] HospitalDwbvcibNQKPLH1185-05-39 07:42:00 Test Item Value Reference Range Interpretation Comments Chol (test code = Chol) 196 [facility] HospitalSMS THL HoldingsCARDIAC [id number] 01:17:00 Test Item Value Reference Range Interpretation Comments CK MB Index (test 0.4 See_Comment [Automate d message] The code = CK MB Index) system w [facility] generated this result transmit irma reference range : <=2.5. The reference range was not used to interpr et this result as gabi l/abnormal. [facility] [place] AannCARDIAC NFDVNJK8876-22-32 01:17:00 Test Item Value Reference Range Interpretation Comments CK MB (test code = CK MB) 0.6 0.5-3.6 [facility] [place] AannCARDIAC [id number] 01:17:00 Test Item Value Reference Range Interpretation Comments Troponin-I (test code no gt See_Comment [Auto mated message] The = Troponin-I) system which g enerated this result transmit irma reference range : <=0.40. The reference r laxmi was not used to interpr et this result as gabi l/abnormal. [facility] HospitalannCARDIAC [id number] 01:17:00 Test Item Value Reference Range Interpretation Comments Total CK (test code = Total CK) 147 12-191 [facility]annCHEM [id number] 01:17:00 Test Item Value Reference Range Interpretation Comments Magnesium Lvl (test code = Magnesium 1.9 1.8-2.4 Lvl) [facility] AND [id number] 19:20:00 Test Item Value Reference Range Interpretation Comments UA Urobilinogen (test code = UA <=1.0 mg/dL 0.1-1.0 Urobilinogen) [facility] AND [id number] 19:20:00 Test Item Value Reference Range Interpretation Comments UA Color (test code = UA Color) Ltyellow [facility] AND [id number] 19:20:00 Test Item Value Reference Range Interpretation Comments UA Ketones (test code = UA Trace mg/dL Ketones) [facility] AND [id number] 19:20:00 Test Item Value Reference Range Interpretation Comments UA Leuk Est (test Negative (05/01/15 1:20 code = UA Leuk Est) PM) [facility] AND [id number] 19:20:00 Test Item Value Reference Range Interpretation Comments UA Nitrite (test code Negative (05/01/15 1:20 = UA Nitrite) PM) [facility] AND [id number] 19:20:00 Test Item Value Reference Range Interpretation Comments UA Blood (test code = Negative (05/01/15 1:20 UA Blood) PM) [facility] AND [id number] 19:20:00 Test Item Value Reference Range Interpretation Comments UA Bili (test code = Negative *NA*(05/01/15 UA Bili) 1:20 PM) [facility] AND [id number] 19:20:00 Test Item Value Reference Range Interpretation Comments UA RBC (test code = 1 See_Comment [Automa irma message] The UA RBC) system which ge nerated this result transmit irma reference range : <=2. The reference range was not used to interpr et this result as gabi l/abnormal. [facility] AND [id number] 19:20:00 Test Item Value Reference Range Interpretation Comments UA WBC (test code = 1 See_Comment [Automa irma message] The UA WBC) system which ge nerated this result transmit irma reference range : <=5. The reference range was not used to interpr et this result as gabi l/abnormal. [facility] AND [id number] 19:20:00 Test Item Value Reference Range Interpretation Comments UA Sq Epi (test code = UA Sq Occasional /LPF Epi) [facility] AND [id number] 19:20:00 Test Item Value Reference Range Interpretation Comments UA Turbidity (test code = Clear (05/01/15 1:20 UA Turbidity) PM) [facility] AND [id number] 19:20:00 Test Item Value Reference Range Interpretation Comments UA Protein (test code = UA Negative mg/dL Protein) [facility] AND [id number] 19:20:00 Test Item Value Reference Range Interpretation Comments UA pH (test code = UA pH) 8.0 5.0-8.0 [facility] AND [id number] 19:20:00 Test Item Value Reference Range Interpretation Comments UA Glucose (test code = UA Glucose) 500 mg/dL [facility] AND [id number] 19:20:00 Test Item Value Reference Range Interpretation Comments UA Spec Grav (test code = UA Spec Grav) 1.014 [facility] [id number] 17:25:00 Test Item Value Reference Range Interpretation Comments BNP (test code = BNP) no gt [facility] RSBVJPD2075[facility]28-07 17:25:00 Test Item Value Reference Range Interpretation Comments CK MB (test code = CK MB) 0.7 0.5-3.6 [facility] [id number] 17:25:00 Test Item Value Reference Range Interpretation Comments Troponin-I (test code no gt See_Comment [Auto mated message] The = Troponin-I) system which g enerated this result transmit irma reference range : <=0.40. The reference r laxmi was not used to interpr et this result as gbai l/abnormal. [facility] [id number] 17:25:00 Test Item Value Reference Range Interpretation Comments Total CK (test code = Total CK) 212 12-191 [facility] [id number] 17:25:00 Test Item Value Reference Range Interpretation Comments CK MB Index (test 0.3 See_Comment [Automate d message] The code = CK MB Index) system w [employer] generated this result transmit irma reference range : <=2.5. The reference range was not used to interpr et this result as gabi l/abnormal. [facility]2016-01-08 17:25:00 Test Item Value Reference Range Interpretation Comments Lipase Lvl (test code = Lipase Lvl) 104 73-393 [facility]2016-01-08 17:25:00 Test Item Value Reference Range Interpretation Comments eGFR (test code = eGFR) 76 [facility]2016-01-08 17:25:00 Test Item Value Reference Range Interpretation Comments CO2 (test code = CO2) 25 24-32 [facility]2016-01-08 17:25:00 Test Item Value Reference Range Interpretation Comments Potassium Lvl (test code = Potassium 3.4 3.5-5.1 Lvl) [facility]2016-01-08 17:25:00 Test Item Value Reference Range Interpretation Comments Chloride Lvl (test code = Chloride Lvl) 93 95-109 [facility]2016-01-08 17:25:00 Test Item Value Reference Range Interpretation Comments Calcium Lvl (test code = Calcium Lvl) 9.7 8.5-10.5 [facility]2016-01-08 17:25:00 Test Item Value Reference Range Interpretation Comments AGAP (test code = AGAP) 14.4 10.0-20.0 [facility]2016-01-08 17:25:00 Test Item Value Reference Range Interpretation Comments Sodium Lvl (test code = Sodium Lvl) 129 135-145 [facility]2016-01-08 17:25:00 Test Item Value Reference Range Interpretation Comments Glucose Lvl (test code = Glucose Lvl) 402 70-99 [facility]2016-01-08 17:25:00 Test Item Value Reference Range Interpretation Comments BUN (test code = BUN) 8 7-22 [facility]2016-01-08 17:25:00 Test Item Value Reference Range Interpretation Comments ALT (test code = ALT) 47 See_Comment [Auto mated message] The system which ge nerated this result transmit irma reference range : <=65. The reference range was not used to interpr et this result as gabi l/abnormal. [place] 145696-01-08 17:25:00 Test Item Value Reference Range Interpretation Comments A/G Ratio (test code = A/G Ratio) 0.9 0.7-1.6 [facility]2016-01-08 17:25:00 Test Item Value Reference Range Interpretation Comments Creatinine Lvl (test code = Creatinine 1.02 0.50-1.40 Lvl) [facility]2016-01-08 17:25:00 Test Item Value Reference Range Interpretation Comments Alk Phos (test code = Alk Phos) 109 39-136 [facility]2016-01-08 17:25:00 Test Item Value Reference Range Interpretation Comments Bili Total (test code = Bili Total) 0.5 0.2-1.3 [facility]2016-01-08 17:25:00 Test Item Value Reference Range Interpretation Comments AST (test code = AST) 33 See_Comment [Auto mated message] The system which ge nerated this result transmit irma reference range : <=37. The reference range was not used to interpr et this result as gabi l/abnormal. [facility]2016-01-08 17:25:00 Test Item Value Reference Range Interpretation Comments Total Protein (test code = Total 8.9 6.4-8.4 Protein) [facility]2016-01-08 17:25:00 Test Item Value Reference Range Interpretation Comments B/C Ratio (test code = B/C Ratio) 8 6-25 [facility]2016-01-08 17:25:00 Test Item Value Reference Range Interpretation Comments Globulin (test code = Globulin) 4.8 2.0-4.0 [facility]2016-01-08 17:25:00 Test Item Value Reference Range Interpretation Comments Albumin Lvl (test code = Albumin Lvl) 4.1 3.5-5.0 [facility]2016-01-08 17:25:00 Test Item Value Reference Range Interpretation Comments Ketone Quantitative (test code = Ketone 0.78 Quantitative) [facility]LnjdgoxMTKJKYYZSR4897-67-54 17:25:00 Test Item Value Reference Range Interpretation Comments WBC (test code = WBC) 9.9 3.7-10.4 [facility] AustinQnyevdvNHYVTCIPNC5787-96-04 17:25:00 Test Item Value Reference Range Interpretation Comments RBC (test code = RBC) 4.77 4.20-5.40 [facility] AustinLignuwcBTEQLIKUBZ7260-36-60 17:25:00 Test Item Value Reference Range Interpretation Comments Hgb (test code = Hgb) 14.2 12.0-16.0 [facility] AustinDvmatxsMYGCEIATKX5812-43-29 17:25:00 Test Item Value Reference Range Interpretation Comments Hct (test code = Hct) 43.7 36.0-48.0 [facility] AustinTxcuhqlTEJXWQZPBR5290-37-60 17:25:00 Test Item Value Reference Range Interpretation Comments MCV (test code = MCV) 91.7 80.0-98.0 [facility] AustinZuubbvjACCACHMAAH6462-39-92 17:25:00 Test Item Value Reference Range Interpretation Comments MCH (test code = MCH) 29.7 pg 27.0-31.0 [facility] AustinTtyzvwqRXCYEKUIJF6314-58-89 17:25:00 Test Item Value Reference Range Interpretation Comments MCHC (test code = MCHC) 32.4 32.0-36.0 [facility] AustinDvleyuyYFGHJTGAQG5481-81-41 17:25:00 Test Item Value Reference Range Interpretation Comments Platelet (test code = Platelet) 295 133-450 [facility] AustinJfvblbuUJHAPDHQJC1509-82-72 17:25:00 Test Item Value Reference Range Interpretation Comments MPV (test code = MPV) 10.8 7.4-10.4 [facility] AustinWwrnqjkXWQKOBWQWA5519-92-84 17:25:00 Test Item Value Reference Range Interpretation Comments RDW (test code = RDW) 12.9 11.5-14.5 [facility] AustinYztznedWOBTTVKJNU4186-52-61 17:25:00 Test Item Value Reference Range Interpretation Comments PTT (test code = PTT) 24.0 s 22.9-35.8 [facility] AustinNnutypwYLYIOOBHCE7309-92-48 17:25:00 Test Item Value Reference Range Interpretation Comments PT (test code = PT) 12.8 s 12.0-14.7 [facility] AustinRbpnjuaXINMMOHVHC2322-55-89 17:25:00 Test Item Value Reference Range Interpretation Comments INR (test code = INR) 0.93 0.85-1.17 [facility] AustinYuxykosWFXSIVEXNF4870-84-70 17:25:00 Test Item Value Reference Range Interpretation Comments Basophils (test code = 1.4 See_Comment [Aut omated message] The Basophils) system which ge nerated this result tra nsmitted reference range : <=1.0. The reference r laxmi was not used to int erpret this result as normal/abnormal . [place] 064156-01-08 17:25:00 Test Item Value Reference Range Interpretation Comments Eosinophils (test code = 1.5 See_Comment [A utomated message] The Eosinophils) system which ge nerated this result tra nsmitted reference range : <=4.0. The reference r laxmi was not used to int erpret this result as normal/abnormal . [facility] AustinGbhkhiyWKLNAUDWET8681-20-40 17:25:00 Test Item Value Reference Range Interpretation Comments Segs-Bands # (test code = Segs-Bands #) 6.2 1.5-8.1 [facility] AustinCikpqsgJHVHDAAGKG6680-52-99 17:25:00 Test Item Value Reference Range Interpretation Comments Lymphocytes # (test code = Lymphocytes 2.9 1.0-5.5 #) [facility] AustinSjrdxmjVNOLBDWWQZ9525-17-15 17:25:00 Test Item Value Reference Range Interpretation Comments Monocytes # (test code 0.6 See_Comment [Aut omated message] The = Monocytes #) system which generated this result tra nsmitted reference range : <=0.8. The reference r laxmi was not used to int erpret this result as normal/abnormal . [facility] AustinPebdedqQURGQGVOVO9927-00-73 17:25:00 Test Item Value Reference Range Interpretation Comments Basophils # (test code 0.1 See_Comment [Aut omated message] The = Basophils #) system which generated this result tra nsmitted reference range : <=0.2. The reference r laxmi was not used to int erpret this result as normal/abnormal . [facility] AustinVtujuscFGTBIBTYLT7465-76-32 17:25:00 Test Item Value Reference Range Interpretation Comments Eosinophils # (test code 0.2 See_Comment [A utomated message] The = Eosinophils #) system whic h generated this result tra nsmitted reference range : <=0.5. The reference r laxmi was not used to int erpret this result as normal/abnormal . [facility] AustinCymgdsqFZUBBJMWVH2816-62-30 17:25:00 Test Item Value Reference Range Interpretation Comments Segs (test code = Segs) 62.5 45.0-75.0 [facility] AustinKxakpisOFHJRKXEKG5110-29-15 17:25:00 Test Item Value Reference Range Interpretation Comments Lymphocytes (test code = Lymphocytes) 28.8 20.0-40.0 [facility] AustinCxdxqdbJSQNXFWDKX0889-42-94 17:25:00 Test Item Value Reference Range Interpretation Comments Monocytes (test code = Monocytes) 5.8 2.0-12.0 [facility]zuxpNPAHJD9617-53-05 09:49:00 Test Item Value Reference Range Interpretation Comments CHD Risk (test code = CHD Risk) 8.66 3.90-5.80 [facility] CenterXnibhjvMHBTRO2091-13-25 09:49:00 Test Item Value Reference Range Interpretation Comments HDL (test code = HDL) 32 [facility] CenterMuvmkkdQXPQLU1598-04-41 09:49:00 Test Item Value Reference Range Interpretation Comments LDL (Calculated) (test code = See Note mg/dL LDL (Calculated)) [facility] CenterLebumqnRZMTFI3850-89-18 09:49:00 Test Item Value Reference Range Interpretation Comments VLDL (test code = See Note 2*NA*(04/10/15 VLDL) 3:49 AM) [facility] CenterPxnerhxYVKEPS5517-54-25 09:49:00 Test Item Value Reference Range Interpretation Comments Trig (test code = Trig) 415 [facility] CenterRizbgdwILDRAQ0357-20-74 09:49:00 Test Item Value Reference Range Interpretation Comments Chol (test code = Chol) 277 [facility]lineCHEM QQUBN4830-92-31 00:03:00 Test Item Value Reference Range Interpretation Comments Creatinine Lvl (test code = Creatinine 1.13 0.50-1.40 Lvl) [facility]lineCHEM GNQCU3114-67-71 00:03:00 Test Item Value Reference Range Interpretation Comments eGFR (test code = eGFR) 67 [facility] AustinGczpbtuZJHKKXEIFY7917-74-33 00:03:00 Test Item Value Reference Range Interpretation Comments Platelet (test code = Platelet) 234 133-450 [facility] AustinGhvprneDWQCFEFAUL2341-19-55 00:03:00 Test Item Value Reference Range Interpretation Comments PTT (test code = PTT) 28.3 s 22.9-35.8 [facility]SPPDGYT4983[facility]98-56 00:03:00 Test Item Value Reference Range Interpretation Comments Hgb A1C (test code = Hgb A1C) >16.0 % [facility]lineCARHyper9AC ZCEYVQU9917-84-29 22:21:00 Test Item Value Reference Range Interpretation Comments Troponin-I (test code no gt See_Comment [Auto mated message] The = Troponin-I) system which g enerated this result transmit irma reference range : <=0.40. The reference r laxmi was not used to interpr et this result as gabi l/abnormal. [facility] RYKZQZW3734-13-30 22:21:00 Test Item Value Reference Range Interpretation Comments Total CK (test code = Total CK) 148 12-191 [facility]at[facility] WXTGOKI1318-19-98 22:21:00 Test Item Value Reference Range Interpretation Comments CK MB Index (test no gt See_Comment [Automate d message] The code = CK MB Index) system w [employer] generated this result transmit irma reference range : <=2.5. The reference range was not used to interpr et this result as gabi l/abnormal. [facility] [employer] BBUORCS2248-91-74 22:21:00 Test Item Value Reference Range Interpretation Comments CK MB (test code = CK MB) no gt 0.5-3.6 [facility] HospitalAsmacure LtéeAC ZDYWEVW7851-04-58 19:04:00 Test Item Value Reference Range Interpretation Comments CK MB (test code = CK MB) no gt 0.5-3.6 [facility] HospitalStitchAC UKCCSHA7604-10-05 19:04:00 Test Item Value Reference Range Interpretation Comments CK MB Index (test no gt See_Comment [Automate d message] The code = CK MB Index) system w [employer] generated this result transmit irma reference range : <=2.5. The reference range was not used to interpr et this result as gabi l/abnormal. [facility] [employer] YGXPUHP0551-77-23 19:04:00 Test Item Value Reference Range Interpretation Comments Troponin-I (test code no gt See_Comment [Auto mated message] The = Troponin-I) system which g enerated this result transmit irma reference range : <=0.40. The reference r laxmi was not used to interpr et this result as gabi l/abnormal. [employer]2015-12-17 19:04:00 Test Item Value Reference Range Interpretation Comments Total CK (test code = Total CK) 152 12-191 [facility] [employer] TJXBTQS2209-92-61 14:25:00 Test Item Value Reference Range Interpretation Comments Troponin-I (test code no gt See_Comment [Auto mated message] The = Troponin-I) system which g enerated this result transmit irma reference range : <=0.40. The reference r laxmi was not used to interpr et this result as gabi l/abnormal. [facility] [employer]2015-12-17 14:25:00 Test Item Value Reference Range Interpretation Comments Total CK (test code = Total CK) 186 12-191 [facility] [employer]2015-12-17 14:25:00 Test Item Value Reference Range Interpretation Comments CK MB (test code = CK MB) no gt 0.5-3.6 [facility] [employer]2015-12-17 14:25:00 Test Item Value Reference Range Interpretation Comments CK MB Index (test no gt See_Comment [Automate d message] The code = CK MB Index) system w [facility] generated this result transmit irma reference range : <=2.5. The reference range was not used to interpr et this result as gabi l/abnormal. [address]2015-12-17 14:25:00 Test Item Value Reference Range Interpretation Comments eGFR (test code = eGFR) 104 [facility] [employer]2015-12-17 14:25:00 Test Item Value Reference Range Interpretation Comments Calcium Lvl (test code = Calcium Lvl) 10.1 8.5-10.5 [facility] [employer]2015-12-17 14:25:00 Test Item Value Reference Range Interpretation Comments CO2 (test code = CO2) 25 24-32 [facility] [employer] [id number] 14:25:00 Test Item Value Reference Range Interpretation Comments Chloride Lvl (test code = Chloride Lvl) 99 95-109 [facility] [employer]2015-12-17 14:25:00 Test Item Value Reference Range Interpretation Comments Total Protein (test code = Total 7.5 6.4-8.4 Protein) [facility]2015-12-17 14:25:00 Test Item Value Reference Range Interpretation Comments Globulin (test code = Globulin) 4.0 2.0-4.0 [place] 145695-12-17 14:25:00 Test Item Value Reference Range Interpretation Comments A/G Ratio (test code = A/G Ratio) 0.9 0.7-1.6 [place] 145695-12-17 14:25:00 Test Item Value Reference Range Interpretation Comments B/C Ratio (test code = B/C Ratio) 11 6-25 [place] 145695-12-17 14:25:00 Test Item Value Reference Range Interpretation Comments AGAP (test code = AGAP) 12.9 10.0-20.0 [place] 145695-12-17 14:25:00 Test Item Value Reference Range Interpretation Comments ALT (test code = ALT) 24 See_Comment [Auto mated message] The system which ge nerated this result transmit irma reference range : <=65. The reference range was not used to interpr et this result as gabi l/abnormal. [facility]2015-12-17 14:25:00 Test Item Value Reference Range Interpretation Comments Bili Total (test code = Bili Total) 0.4 0.2-1.3 [place] 145695-12-17 14:25:00 Test Item Value Reference Range Interpretation Comments Alk Phos (test code = Alk Phos) 85 39-136 [facility]2015-12-17 14:25:00 Test Item Value Reference Range Interpretation Comments AST (test code = AST) 16 See_Comment [Auto mated message] The system which ge nerated this result transmit irma reference range : <=37. The reference range was not used to interpr et this result as gabi l/abnormal. [facility]2015-12-17 14:25:00 Test Item Value Reference Range Interpretation Comments Albumin Lvl (test code = Albumin Lvl) 3.5 3.5-5.0 [place] 145695-12-17 14:25:00 Test Item Value Reference Range Interpretation Comments BUN (test code = BUN) 9 7-22 [place] 145695-12-17 14:25:00 Test Item Value Reference Range Interpretation Comments Glucose Lvl (test code = Glucose Lvl) 348 70-99 [facility]2015-12-17 14:25:00 Test Item Value Reference Range Interpretation Comments Potassium Lvl (test code = Potassium 3.9 3.5-5.1 Lvl) [facility]2015-12-17 14:25:00 Test Item Value Reference Range Interpretation Comments Sodium Lvl (test code = Sodium Lvl) 133 135-145 [facility]2015-12-17 14:25:00 Test Item Value Reference Range Interpretation Comments Creatinine Lvl (test code = Creatinine 0.79 0.50-1.40 Lvl) [facility] AustinGpvdbmeDCSSRGEHWU6968-11-32 14:25:00 Test Item Value Reference Range Interpretation Comments Hct (test code = Hct) 39.5 36.0-48.0 [place] 064155-12-17 14:25:00 Test Item Value Reference Range Interpretation Comments Hgb (test code = Hgb) 12.9 12.0-16.0 [place] 064155-12-17 14:25:00 Test Item Value Reference Range Interpretation Comments MCV (test code = MCV) 91.2 80.0-98.0 [place] 064155-12-17 14:25:00 Test Item Value Reference Range Interpretation Comments Platelet (test code = Platelet) 242 133-450 [facility] AustinEusuwucQIMFYMVMGX4704-36-03 14:25:00 Test Item Value Reference Range Interpretation Comments MCH (test code = MCH) 29.9 pg 27.0-31.0 [place] 064155-12-17 14:25:00 Test Item Value Reference Range Interpretation Comments MCHC (test code = MCHC) 32.8 32.0-36.0 [place] 064155-12-17 14:25:00 Test Item Value Reference Range Interpretation Comments RBC (test code = RBC) 4.33 4.20-5.40 [place] 064155-12-17 14:25:00 Test Item Value Reference Range Interpretation Comments RDW (test code = RDW) 13.0 11.5-14.5 [place] 064155-12-17 14:25:00 Test Item Value Reference Range Interpretation Comments WBC (test code = WBC) 7.7 3.7-10.4 [facility] AustinUgfgthmNEZDOOOTLS0440-96-91 14:25:00 Test Item Value Reference Range Interpretation Comments MPV (test code = MPV) 10.6 7.4-10.4 [facility] AustinKsvsyksAUOQCOIELA5298-11-29 14:25:00 Test Item Value Reference Range Interpretation Comments Lymphocytes (test code = Lymphocytes) 28.2 20.0-40.0 [facility] AustinEiyfgypUJFMFYYHLH4511-38-76 14:25:00 Test Item Value Reference Range Interpretation Comments Segs (test code = Segs) 60.2 45.0-75.0 [place] 064155-12-17 14:25:00 Test Item Value Reference Range Interpretation Comments Eosinophils (test code = 2.3 See_Comment [A utomated message] The Eosinophils) system which ge nerated this result tra nsmitted reference range : <=4.0. The reference r laxmi was not used to int erpret this result as normal/abnormal . [facility] AustinUxvrsmwDIHWIKFYGH7845-15-71 14:25:00 Test Item Value Reference Range Interpretation Comments Monocytes (test code = Monocytes) 7.9 2.0-12.0 [facility] AustinOlidyfnJNILWXKRTP3581-21-13 14:25:00 Test Item Value Reference Range Interpretation Comments Lymphocytes # (test code = Lymphocytes 2.2 1.0-5.5 #) [facility] AustinTnlehpmFFAWXAPQIN5800-24-33 14:25:00 Test Item Value Reference Range Interpretation Comments Eosinophils # (test code 0.2 See_Comment [A utomated message] The = Eosinophils #) system [facility] generated this result tra nsmitted reference range : <=0.5. The reference r laxmi was not used to int erpret this result as normal/abnormal . [facility] AustinGujygiqYSOFWIPNJE3842-48-34 14:25:00 Test Item Value Reference Range Interpretation Comments Monocytes # (test code 0.6 See_Comment [Aut omated message] The = Monocytes #) system which generated this result tra nsmitted reference range : <=0.8. The reference r laxmi was not used to int erpret this result as normal/abnormal . [facility] AustinNjmdshkBKAPDZMSGQ7678-64-38 14:25:00 Test Item Value Reference Range Interpretation Comments Basophils # (test code 0.1 See_Comment [Aut omated message] The = Basophils #) system which generated this result tra nsmitted reference range : <=0.2. The reference r laxmi was not used to int erpret this result as normal/abnormal . [facility] AustinGjjpljiNPZLUNIFKZ2775-24-93 14:25:00 Test Item Value Reference Range Interpretation Comments Basophils (test code = 1.4 See_Comment [Aut omated message] The Basophils) system which ge nerated this result tra nsmitted reference range : <=1.0. The reference r laxmi was not used to int erpret this result as normal/abnormal . [facility] AustinQsujywrHZQOBWAYTM3650-17-51 14:25:00 Test Item Value Reference Range Interpretation Comments Segs-Bands # (test code = Segs-Bands #) 4.6 1.5-8.1 [facility]2015-11-21 18:44:00 Test Item Value Reference Range Interpretation Comments Ketone Quantitative (test code = Ketone 1.00 Quantitative) [facility]tsgxxpRMKAMIGNZNKO8926-85-70 18:44:00 Test Item Value Reference Range Interpretation Comments AGAP (test code = AGAP) 12.7 10.0-20.0 [facility] HospitalPegaknwLTYHPBKOMHJB3628-04-46 18:44:00 Test Item Value Reference Range Interpretation Comments B/C Ratio (test code = B/C Ratio) 7 6-25 [facility] HospitalOiqvzyiPKEOTICESOWI7604-93-65 18:44:00 Test Item Value Reference Range Interpretation Comments Globulin (test code = Globulin) 4.6 2.0-4.0 [facility] HospitalHnzyfffHFKVIDTDUYEJ8257-21-71 18:44:00 Test Item Value Reference Range Interpretation Comments A/G Ratio (test code = A/G Ratio) 0.8 0.7-1.6 [facility] HospitalKvsjrabYWBGKNCYPLXY1578-18-17 18:44:00 Test Item Value Reference Range Interpretation Comments Chloride Lvl (test code = Chloride Lvl) 98 95-109 [facility] HospitalBghjfxwFJJNVRYYSKPX4508-56-82 18:44:00 Test Item Value Reference Range Interpretation Comments CO2 (test code = CO2) 24 24-32 [facility] HospitalIdbeeltEUYBXNCCMNWH6081-60-54 18:44:00 Test Item Value Reference Range Interpretation Comments Calcium Lvl (test code = Calcium Lvl) 9.0 8.5-10.5 [facility] HospitalGzdtxdfKMJUJWBQIUOM9987-12-46 18:44:00 Test Item Value Reference Range Interpretation Comments Total Protein (test code = Total 8.4 6.4-8.4 Protein) [facility]AypduwvEUGFIRCTLBBF5455-34-30 18:44:00 Test Item Value Reference Range Interpretation Comments Creatinine Lvl (test code = Creatinine 1.07 0.50-1.40 Lvl) [facility] HospitalFtjhvraEXPLZHLLERCK0097-80-65 18:44:00 Test Item Value Reference Range Interpretation Comments Sodium Lvl (test code = Sodium Lvl) 131 135-145 [facility] HospitalTgidmksTTJMJQOITQHG8664-37-33 18:44:00 Test Item Value Reference Range Interpretation Comments Potassium Lvl (test code = Potassium 3.7 3.5-5.1 Lvl) [facility] HospitalCqafcljZFJPMCSVUBAG6035-77-94 18:44:00 Test Item Value Reference Range Interpretation Comments ALT (test code = ALT) 41 See_Comment [Auto mated message] The system which ge nerated this result transmit irma reference range : <=65. The reference range was not used to interpr et this result as gabi l/abnormal. [facility] HospitalKqpstyhGHYUEAUOEHWS5699-57-65 18:44:00 Test Item Value Reference Range Interpretation Comments Alk Phos (test code = Alk Phos) 99 39-136 [facility] HospitalCghbosbKFIRGFKZXKPK9661-72-25 18:44:00 Test Item Value Reference Range Interpretation Comments Albumin Lvl (test code = Albumin Lvl) 3.8 3.5-5.0 [facility] HospitalWfptlbvWNSJJDAVCPOP7132-05-46 18:44:00 Test Item Value Reference Range Interpretation Comments AST (test code = AST) 22 See_Comment [Auto mated message] The system which ge nerated this result transmit irma reference range : <=37. The reference range was not used to interpr et this result as gabi l/abnormal. [facility] HospitalHcwqkvyJKOFDJRUQDPG9132-09-91 18:44:00 Test Item Value Reference Range Interpretation Comments Bili Total (test code = Bili Total) 0.5 0.2-1.3 [facility] HospitalZzcwjcmAQVLPVDLBTWD7525-09-41 18:44:00 Test Item Value Reference Range Interpretation Comments Glucose Lvl (test code = Glucose Lvl) 396 70-99 [facility] HospitalRjijeelIQPQNCAUPHHC5146-62-22 18:44:00 Test Item Value Reference Range Interpretation Comments BUN (test code = BUN) 7 7-22 [facility] HospitalXtxawdoYRMSXVVVMWWE0730-70-46 18:44:00 Test Item Value Reference Range Interpretation Comments eGFR (test code = eGFR) 72 [place] 66275015-11-21 18:44:00 Test Item Value Reference Range Interpretation Comments S Preg (test code = S Negative *NA*(03/14/15 Preg) 12:44 PM) [facility]NznpbbbQLMEJWOYNS0682-53-20 18:44:00 Test Item Value Reference Range Interpretation Comments Segs (test code = Segs) 86.4 45.0-75.0 [facility] AustinPrutsooEWKSMVMNJX8810-51-15 18:44:00 Test Item Value Reference Range Interpretation Comments Lymphocytes (test code = Lymphocytes) 6.2 20.0-40.0 [facility] AustinMkhdjszZAEZWTVNVN9907-25-90 18:44:00 Test Item Value Reference Range Interpretation Comments Segs-Bands # (test code = Segs-Bands #) 10.3 1.5-8.1 [facility] AustinSzhkyvgCQSALJEPNG7889-75-04 18:44:00 Test Item Value Reference Range Interpretation Comments Basophils (test code = 0.8 See_Comment [Aut omated message] The Basophils) system which ge nerated this result tra nsmitted reference range : <=1.0. The reference r laxmi was not used to int erpret this result as normal/abnormal . [facility] AustinGeojrvyZNTJOYGUVG8056-89-39 18:44:00 Test Item Value Reference Range Interpretation Comments Lymphocytes # (test code = Lymphocytes 0.7 1.0-5.5 #) [facility] AustinMxzbragVFTJUMJKXQ9430-05-55 18:44:00 Test Item Value Reference Range Interpretation Comments Eosinophils (test code = 0.5 See_Comment [A utomated message] The Eosinophils) system which ge nerated this result tra nsmitted reference range : <=4.0. The reference r laxmi was not used to int erpret this result as normal/abnormal . [facility] AustinHkivudfZNVNPZFCPF3102-99-84 18:44:00 Test Item Value Reference Range Interpretation Comments Monocytes (test code = Monocytes) 6.1 2.0-12.0 [place] [id number] 18:44:00 Test Item Value Reference Range Interpretation Comments Eosinophils # (test code 0.1 See_Comment [A utomated message] The = Eosinophils #) system whic h generated this result tra nsmitted reference range : <=0.5. The reference r laxmi was not used to int erpret this result as normal/abnormal . [facility] AustinZjqcfczRYVOKNHNRU3644-28-44 18:44:00 Test Item Value Reference Range Interpretation Comments Monocytes # (test code 0.7 See_Comment [Aut omated message] The = Monocytes #) system which generated this result tra nsmitted reference range : <=0.8. The reference r laxmi was not used to int erpret this result as normal/abnormal . [facility] AustinXypnaaxKJGSZFIEEM6718-78-36 18:44:00 Test Item Value Reference Range Interpretation Comments Basophils # (test code 0.1 See_Comment [Aut omated message] The = Basophils #) system which generated this result tra nsmitted reference range : <=0.2. The reference r laxmi was not used to int erpret this result as normal/abnormal . [facility] AustinEriulnzUSRAPJXMKQ9211-33-81 18:44:00 Test Item Value Reference Range Interpretation Comments MPV (test code = MPV) 11.0 7.4-10.4 [facility] AustinKvgkpxlMDFRUUKNPQ9444-27-33 18:44:00 Test Item Value Reference Range Interpretation Comments Platelet (test code = Platelet) 216 133-450 [facility] AustinZyttfcnLXCGDVZFGO5811-49-45 18:44:00 Test Item Value Reference Range Interpretation Comments RDW (test code = RDW) 13.3 11.5-14.5 [facility] AustinGxcvjobBLZMRXEXFQ5805-57-42 18:44:00 Test Item Value Reference Range Interpretation Comments WBC (test code = WBC) 11.9 3.7-10.4 [facility] AustinInzwmhuYITXMFFICP2760-37-39 18:44:00 Test Item Value Reference Range Interpretation Comments RBC (test code = RBC) 4.65 4.20-5.40 [facility] AustinPjpxjcbRDHJIZWRHD8080-94-01 18:44:00 Test Item Value Reference Range Interpretation Comments MCV (test code = MCV) 92.2 80.0-98.0 [facility] AustinGmquekaWBLUUVFNFO9114-17-24 18:44:00 Test Item Value Reference Range Interpretation Comments MCH (test code = MCH) 29.5 pg 27.0-31.0 [facility] AustinRkurzkpEJXRYUOVCT8913-21-68 18:44:00 Test Item Value Reference Range Interpretation Comments MCHC (test code = MCHC) 32.0 32.0-36.0 [facility] AustinMteootoKDTYKQBVET2957-01-00 18:44:00 Test Item Value Reference Range Interpretation Comments Hgb (test code = Hgb) 13.7 12.0-16.0 [facility] AustinZskewcuBHZLLEBPJP9407-79-76 18:44:00 Test Item Value Reference Range Interpretation Comments Hct (test code = Hct) 42.8 36.0-48.0 [facility] AND [id number] 18:44:00 Test Item Value Reference Range Interpretation Comments UA Urobilinogen (test code = UA <=1.0 mg/dL 0.1-1.0 Urobilinogen) [facility] AND [id number] 18:44:00 Test Item Value Reference Range Interpretation Comments UA Color (test code = UA Color) Ltyellow [facility] AND [id number] 18:44:00 Test Item Value Reference Range Interpretation Comments UA Ketones (test code = UA Ketones) 20 mg/dL [facility] AND YPOWA6059-27-45 18:44:00 Test Item Value Reference Range Interpretation Comments UA Bili (test code = Negative *NA*(03/14/15 UA Bili) 12:44 PM) [facility] AND [id number] 18:44:00 Test Item Value Reference Range Interpretation Comments UA Blood (test code = Negative (03/14/15 12:44 UA Blood) PM) [facility] AND [id number] 18:44:00 Test Item Value Reference Range Interpretation Comments UA Nitrite (test code Negative (03/14/15 = UA Nitrite) 12:44 PM) [facility] AND [id number] 18:44:00 Test Item Value Reference Range Interpretation Comments UA RBC (test code = 4 See_Comment [Automa irma message] The UA RBC) system which ge nerated this result transmit irma reference range : <=2. The reference range was not used to interpr et this result as gabi l/abnormal. [facility] AND HBBEU4066-81-01 18:44:00 Test Item Value Reference Range Interpretation Comments UA Protein (test code = UA Protein) 30 mg/dL [facility] AND [id number] 18:44:00 Test Item Value Reference Range Interpretation Comments UA Turbidity (test code = Clear (03/14/15 UA Turbidity) 12:44 PM) [facility] AND [id number] 18:44:00 Test Item Value Reference Range Interpretation Comments UA Spec Grav (test code = UA Spec Grav) 1.033 [facility] AND [id number] 18:44:00 Test Item Value Reference Range Interpretation Comments UA pH (test code = UA pH) 7.0 5.0-8.0 [facility] AND [id number] 18:44:00 Test Item Value Reference Range Interpretation Comments UA Glucose (test code = UA Glucose) 500 mg/dL [facility] AND [id number] 18:44:00 Test Item Value Reference Range Interpretation Comments UA WBC (test code = no gt See_Comment [Automa irma message] The UA WBC) system which ge nerated this result transmit irma reference range : <=5. The reference range was not used to interpr et this result as gabi l/abnormal. [facility] RHYZW3701-23-43 18:44:00 Test Item Value Reference Range Interpretation Comments UA Leuk Est (test Negative (03/14/15 12:44 code = UA Leuk Est) PM) [facility] AND [id number] 18:44:00 Test Item Value Reference Range Interpretation Comments UA Sq Epi (test code = UA Sq Occasional /LPF Epi) [facility] TDKJGII6832-48-86 15:52:00 Test Item Value Reference Range Interpretation Comments CK MB Index (test no gt See_Comment [Automate d message] The code = CK MB Index) system w [facility] generated this result transmit irma reference range : <=2.5. The reference range was not used to interpr et this result as gabi l/abnormal. [facility] YZTSOQQ9266-95-26 15:52:00 Test Item Value Reference Range Interpretation Comments BNP (test code = BNP) 3 [facility]annCARD[facility]AC YKVQWJZ9745-47-94 15:52:00 Test Item Value Reference Range Interpretation Comments Total CK (test code = Total CK) 72 12-191 [facility]annCARD[facility]AC TTHLXAD0390-25-65 15:52:00 Test Item Value Reference Range Interpretation Comments CK MB (test code = CK MB) no gt 0.5-3.6 [facility]annCARD[facility]AC VZUFKGG0441-46-65 15:52:00 Test Item Value Reference Range Interpretation Comments Troponin-I (test code no gt See_Comment [Auto mated message] The = Troponin-I) system which g enerated this result transmit irma reference range : <=0.40. The reference r laxmi was not used to interpr et this result as gabi l/abnormal. [facility] HospitalVocent OZPEU7265-75-87 15:52:00 Test Item Value Reference Range Interpretation Comments Procalcitonin Lvl <0.05 ng/mL See_Comment [Automate d message] (test code = The system whic h Procalcitonin Lvl) generated this result transmit irma reference range : <=0.10. The reference range was not used to interpret this result as normal/abnormal . [facility] HospitalVocent WOJPF7337-46-74 15:52:00 Test Item Value Reference Range Interpretation Comments Magnesium Lvl (test code = Magnesium 1.5 1.8-2.4 Lvl) [facility] HospitalIdiadrjXWFKIBWVESJZ7628-87-90 15:52:00 Test Item Value Reference Range Interpretation Comments Chloride Lvl (test code = Chloride Lvl) 103 95-109 [facility]LvrfetzHHOLKSZBBADR1251-07-06 15:52:00 Test Item Value Reference Range Interpretation Comments Calcium Lvl (test code = Calcium Lvl) 8.9 8.5-10.5 [facility] HospitalUruekwiQTBWXYPJFZKB7840-45-19 15:52:00 Test Item Value Reference Range Interpretation Comments Sodium Lvl (test code = Sodium Lvl) 138 135-145 [facility] HospitalTiggfbjMGTBCPDNDVPW0862-30-66 15:52:00 Test Item Value Reference Range Interpretation Comments Potassium Lvl (test code = Potassium 3.9 3.5-5.1 Lvl) [facility] HospitalDaruamuAXMCQRENZDPS2986-37-20 15:52:00 Test Item Value Reference Range Interpretation Comments eGFR (test code = eGFR) 78 [facility] HospitalYawutuqYXDDYOZPZJLQ2422-75-60 15:52:00 Test Item Value Reference Range Interpretation Comments Bili Total (test code = Bili Total) 0.4 0.2-1.3 [facility] HospitalBdqnmsgSUSXHMPQRRVJ3074-93-26 15:52:00 Test Item Value Reference Range Interpretation Comments BUN (test code = BUN) 10 7-22 [facility] HospitalSvidrdkOUUJVDZJFGKK3404-37-20 15:52:00 Test Item Value Reference Range Interpretation Comments Glucose Lvl (test code = Glucose Lvl) 352 70-99 [facility] HospitalSfloqpnRITNNNCFMETY1892-74-09 15:52:00 Test Item Value Reference Range Interpretation Comments AST (test code = AST) 33 See_Comment [Auto mated message] The system which ge nerated this result transmit irma reference range : <=37. The reference range was not used to interpr et this result as gabi l/abnormal. [facility] HospitalEwihjxjZUFKMEFKLIXJ9604-22-50 15:52:00 Test Item Value Reference Range Interpretation Comments Alk Phos (test code = Alk Phos) 84 39-136 [facility] HospitalCuslvllFIHKFIBBEMNI8893-58-11 15:52:00 Test Item Value Reference Range Interpretation Comments Creatinine Lvl (test code = Creatinine 1.0 0.5-1.4 Lvl) [facility] HospitalSmdrrwiYQKNUNCJRRUN5584-20-26 15:52:00 Test Item Value Reference Range Interpretation Comments CO2 (test code = CO2) 25 24-32 [facility] HospitalNjiggknKVCQUYUVZDJG0321-11-44 15:52:00 Test Item Value Reference Range Interpretation Comments Total Protein (test code = Total 7.2 6.4-8.4 Protein) [facility] HospitalPwfgusbSSLULSGTVXDF0723-16-40 15:52:00 Test Item Value Reference Range Interpretation Comments Albumin Lvl (test code = Albumin Lvl) 3.4 3.5-5.0 [facility] HospitalMabtwluFFAXFZGINKNL9325-94-82 15:52:00 Test Item Value Reference Range Interpretation Comments ALT (test code = ALT) 42 See_Comment [Auto mated message] The system which ge nerated this result transmit irma reference range : <=65. The reference range was not used to interpr et this result as gabi l/abnormal. [facility] HospitalKaqoxkpCYTGQODHXCXN8249-68-37 15:52:00 Test Item Value Reference Range Interpretation Comments Globulin (test code = Globulin) 3.8 2.0-4.0 [facility] HospitalUzjxxpaYDVNBPIGWTSH2899-54-90 15:52:00 Test Item Value Reference Range Interpretation Comments A/G Ratio (test code = A/G Ratio) 0.9 0.7-1.6 [facility] HospitalOclsybsVKDNMTTWKWSP8161-26-95 15:52:00 Test Item Value Reference Range Interpretation Comments AGAP (test code = AGAP) 13.9 10.0-20.0 [facility] HospitalHzwqllbJVSLXBFTJODP7882-30-70 15:52:00 Test Item Value Reference Range Interpretation Comments B/C Ratio (test code = B/C Ratio) 10 6-25 [facility] AustinYecsrjbWGBLNZMCCV6688-45-65 15:52:00 Test Item Value Reference Range Interpretation Comments Monocytes (test code = Monocytes) 5.9 2.0-12.0 [facility] AustinOukwloyXDFJBLQXCU0052-15-68 15:52:00 Test Item Value Reference Range Interpretation Comments Basophils # (test code 0.1 See_Comment [Aut omated message] The = Basophils #) system which generated this result tra nsmitted reference range : <=0.2. The reference r laxmi was not used to int erpret this result as normal/abnormal . [facility] AustinGbiloigTSAVNBPJIL1548-24-68 15:52:00 Test Item Value Reference Range Interpretation Comments Segs-Bands # (test code = Segs-Bands #) 4.0 1.5-8.1 [facility] AustinDcloogqYYMBPVTNDY3036-91-35 15:52:00 Test Item Value Reference Range Interpretation Comments Basophils (test code = 1.2 See_Comment [Aut omated message] The Basophils) system which ge nerated this result tra nsmitted reference range : <=1.0. The reference r laxmi was not used to int erpret this result as normal/abnormal . [facility] AustinAmrxyanGZSNNXBTDA1004-24-36 15:52:00 Test Item Value Reference Range Interpretation Comments Eosinophils (test code = 2.4 See_Comment [A utomated message] The Eosinophils) system which ge nerated this result tra nsmitted reference range : <=4.0. The reference r laxmi was not used to int erpret this result as normal/abnormal . [facility] AustinBwsaxedEUABKTFRFJ5039-67-63 15:52:00 Test Item Value Reference Range Interpretation Comments Eosinophils # (test code 0.2 See_Comment [A utomated message] The = Eosinophils #) system whic h generated this result tra nsmitted reference range : <=0.5. The reference r laxmi was not used to int erpret this result as normal/abnormal . [facility] AustinDkacxqaAMIAFPSTOX7098-27-85 15:52:00 Test Item Value Reference Range Interpretation Comments Monocytes # (test code 0.4 See_Comment [Aut omated message] The = Monocytes #) system which generated this result tra nsmitted reference range : <=0.8. The reference r laxmi was not used to int erpret this result as normal/abnormal . [facility] AustinJjtzogkTSTBGDKFCT5751-28-58 15:52:00 Test Item Value Reference Range Interpretation Comments Lymphocytes (test code = Lymphocytes) 31.4 20.0-40.0 [facility] AustinPhefqetMZECVAGKSD5037-38-78 15:52:00 Test Item Value Reference Range Interpretation Comments Lymphocytes # (test code = Lymphocytes 2.1 1.0-5.5 #) [facility] AustinTdbhkikHXAFRSAVKR1115-05-23 15:52:00 Test Item Value Reference Range Interpretation Comments Segs (test code = Segs) 59.1 45.0-75.0 [facility] AustinNymodmkKPXHMBTBTX0773-71-31 15:52:00 Test Item Value Reference Range Interpretation Comments MPV (test code = MPV) 10.8 7.4-10.4 [facility] AustinIdlvsswUWGHAJZFRQ1038-76-70 15:52:00 Test Item Value Reference Range Interpretation Comments Hgb (test code = Hgb) 13.2 12.0-16.0 [facility] AustinZmhqlraJBFMEBTYIE3331-46-03 15:52:00 Test Item Value Reference Range Interpretation Comments MCV (test code = MCV) 92.2 80.0-98.0 [facility] AustinJpltvawJPBLMXXYMA8959-62-93 15:52:00 Test Item Value Reference Range Interpretation Comments Hct (test code = Hct) 38.6 36.0-48.0 [facility] AustinVxbuxliYZTCLBOTRP5522-76-72 15:52:00 Test Item Value Reference Range Interpretation Comments RDW (test code = RDW) 13.7 11.5-14.5 [facility] AustinLkbxelpIQWMNABOKK4267-74-85 15:52:00 Test Item Value Reference Range Interpretation Comments Platelet (test code = Platelet) 219 133-450 [facility] AustinFgfgprgNCFNSNALEY0435-76-95 15:52:00 Test Item Value Reference Range Interpretation Comments MCH (test code = MCH) 31.5 pg 27.0-31.0 [facility] LixbizgDIABGRJVFU7484-80-92 15:52:00 Test Item Value Reference Range Interpretation Comments MCHC (test code = MCHC) 34.2 32.0-36.0 [facility] VdseztkRMIROPYGNM6912-41-59 15:52:00 Test Item Value Reference Range Interpretation Comments RBC (test code = RBC) 4.18 4.20-5.40 [facility] HospitalKyvvpdcQKCZVIRRML2654-30-96 15:52:00 Test Item Value Reference Range Interpretation Comments WBC (test code = WBC) 6.8 3.7-10.4 [facility] AxdnhjaSTJPLELYHZ0984-82-52 15:52:00 Test Item Value Reference Range Interpretation Comments D-Dimer (test code = D-Dimer) 0.44 [facility] HospitalOadtuqnWRXZEH2352-37-31 15:52:00 Test Item Value Reference Range Interpretation Comments VLDL (test code = See Note 4*NA*(12/19/14 VLDL) 10:52 AM) [facility] HospitalWebwyebWWGQSE5997-13-19 15:52:00 Test Item Value Reference Range Interpretation Comments LDL (Calculated) (test code = See Note mg/dL LDL (Calculated)) [facility] HospitalSwesfctEIYZZG5555-65-07 15:52:00 Test Item Value Reference Range Interpretation Comments CHD Risk (test code = CHD Risk) 7.15 3.90-5.80 [facility] LdbeadtMIUEWR1801-88-67 15:52:00 Test Item Value Reference Range Interpretation Comments HDL (test code = HDL) 26 [facility] KphiwpxNMESQT8830-46-32 15:52:00 Test Item Value Reference Range Interpretation Comments Chol (test code = Chol) 186 [facility] HospitalRukidjhOTRUYO8922-90-45 15:52:00 Test Item Value Reference Range Interpretation Comments Trig (test code = Trig) [facility]44 [facility] ULRUCHNOD0882-67-98 15:52:00 Test Item Value Reference Range Interpretation Comments Hgb A1C (test code = Hgb A1C) 14.4 [facility] HospitalannTHYROID RRJWD7139-55-16 15:52:00 Test Item Value Reference Range Interpretation Comments TSH (test code = TSH) 1.360 0.360-3.740 [facility]2015-08-28 02:50:00 Test Item Value Reference Range Interpretation Comments CK MB Index (test no gt See_Comment [Automate d message] The code = CK MB Index) system w [employer] generated this result transmit irma reference range : <=2.5. The reference range was not used to interpr et this result as gabi l/abnormal. [employer] XFIHQOO8875-54-03 02:50:00 Test Item Value Reference Range Interpretation Comments CK MB (test code = CK MB) no gt 0.5-3.6 [facility] [employer]2015-08-28 02:50:00 Test Item Value Reference Range Interpretation Comments Total CK (test code = Total CK) 81 [employer]2015-08-28 02:50:00 Test Item Value Reference Range Interpretation Comments Troponin-I (test code no gt See_Comment [Auto mated message] The = Troponin-I) system which g enerated this result transmit irma reference range : <=0.40. The reference r laxmi was not used to interpr et this result as gabi l/abnormal. [employer]2015-08-27 21:01:00 Test Item Value Reference Range Interpretation Comments CK MB Index (test no gt See_Comment [Automate d message] The code = CK MB Index) system w [employer] generated this result transmit irma reference range : <=2.5. The reference range was not used to interpr et this result as gabi l/abnormal. [employer]2015-08-27 21:01:00 Test Item Value Reference Range Interpretation Comments CK MB (test code = CK MB) no gt 0.5-3.6 [facility] [employer]2015-08-27 21:01:00 Test Item Value Reference Range Interpretation Comments Troponin-I (test code no gt See_Comment [Auto mated message] The = Troponin-I) system which g enerated this result transmit irma reference range : <=0.40. The reference r laxmi was not used to interpr et this result as gabi l/abnormal. [employer]2015-08-27 21:01:00 Test Item Value Reference Range Interpretation Comments Total CK (test code = Total CK) 83 12-191 [facility]2015-08-27 14:20:00 Test Item Value Reference Range Interpretation Comments Glucose Lvl (test code = Glucose Lvl) 385 70-99 [facility]2015-08-27 14:20:00 Test Item Value Reference Range Interpretation Comments CO2 (test code = CO2) 21 24-32 [facility]2015-08-27 14:20:00 Test Item Value Reference Range Interpretation Comments AGAP (test code = AGAP) 17.6 10.0-20.0 [facility]2015-08-27 14:20:00 Test Item Value Reference Range Interpretation Comments Albumin Lvl (test code = Albumin Lvl) 3.8 3.5-5.0 [facility]2015-08-27 14:20:00 Test Item Value Reference Range Interpretation Comments Alk Phos (test code = Alk Phos) 80 39-136 [facility]2015-08-27 14:20:00 Test Item Value Reference Range Interpretation Comments A/G Ratio (test code = A/G Ratio) 1.0 0.7-1.6 [facility]2015-08-27 14:20:00 Test Item Value Reference Range Interpretation Comments Globulin (test code = Globulin) 4.0 2.0-4.0 [facility]2015-08-27 14:20:00 Test Item Value Reference Range Interpretation Comments Total Protein (test code = Total 7.8 6.4-8.4 Protein) [facility]2015-08-27 14:20:00 Test Item Value Reference Range Interpretation Comments AST (test code = AST) 16 See_Comment [Auto mated message] The system which ge nerated this result transmit irma reference range : <=37. The reference range was not used to interpr et this result as gabi l/abnormal. [facility]2015-08-27 14:20:00 Test Item Value Reference Range Interpretation Comments Bili Total (test code = Bili Total) 0.4 0.2-1.3 [facility]2015-08-27 14:20:00 Test Item Value Reference Range Interpretation Comments eGFR (test code = eGFR) 89 [facility]2015-08-27 14:20:00 Test Item Value Reference Range Interpretation Comments Creatinine Lvl (test code = Creatinine 0.9 0.5-1.4 Lvl) [facility]2015-08-27 14:20:00 Test Item Value Reference Range Interpretation Comments ALT (test code = ALT) 31 See_Comment [Auto mated message] The system which ge nerated this result transmit irma reference range : <=65. The reference range was not used to interpr et this result as gabi l/abnormal. [facility]2015-08-27 14:20:00 Test Item Value Reference Range Interpretation Comments Chloride Lvl (test code = Chloride Lvl) 98 95-109 [facility]2015-08-27 14:20:00 Test Item Value Reference Range Interpretation Comments Sodium Lvl (test code = Sodium Lvl) 133 135-145 [facility]2015-08-27 14:20:00 Test Item Value Reference Range Interpretation Comments Potassium Lvl (test code = Potassium 3.6 3.5-5.1 Lvl) [facility]2015-08-27 14:20:00 Test Item Value Reference Range Interpretation Comments Calcium Lvl (test code = Calcium Lvl) 9.1 8.5-10.5 [facility]2015-08-27 14:20:00 Test Item Value Reference Range Interpretation Comments B/C Ratio (test code = B/C Ratio) 10 6-25 [facility]2015-08-27 14:20:00 Test Item Value Reference Range Interpretation Comments BUN (test code = BUN) 9 7-22 [facility] AustinTlbtxeeWFRIAMHURR6069-95-45 14:20:00 Test Item Value Reference Range Interpretation Comments MPV (test code = MPV) 10.6 7.4-10.4 [facility] AustinDzoxubhUWBSFLSVUN0450-51-81 14:20:00 Test Item Value Reference Range Interpretation Comments Hct (test code = Hct) 39.8 36.0-48.0 [facility] AustinHihkbzvQVFXCWVWXV8838-85-87 14:20:00 Test Item Value Reference Range Interpretation Comments MCV (test code = MCV) 91.3 80.0-98.0 [facility] AustinGkcecupFMQNHFCJII8746-91-47 14:20:00 Test Item Value Reference Range Interpretation Comments Hgb (test code = Hgb) 13.6 12.0-16.0 [place] 064155-08-27 14:20:00 Test Item Value Reference Range Interpretation Comments RDW (test code = RDW) 13.6 11.5-14.5 [facility] AustinFsfoktnVQZGYBVVHK0806-35-87 14:20:00 Test Item Value Reference Range Interpretation Comments Platelet (test code = Platelet) 226 133-450 [place] 064155-08-27 14:20:00 Test Item Value Reference Range Interpretation Comments MCH (test code = MCH) 31.1 pg 27.0-31.0 [facility] AustinIegzvecSCCNIJWYWH3620-15-31 14:20:00 Test Item Value Reference Range Interpretation Comments MCHC (test code = MCHC) 34.1 32.0-36.0 [facility] AustinPsaduuhMIZEQFXVQU0996-64-58 14:20:00 Test Item Value Reference Range Interpretation Comments WBC (test code = WBC) 7.7 3.7-10.4 [facility] AustinLxvhrylMYGFAHDWDZ9534-58-87 14:20:00 Test Item Value Reference Range Interpretation Comments RBC (test code = RBC) 4.36 4.20-5.40 [facility] AustinJlraefnPQUTSQABIE9108-03-97 14:20:00 Test Item Value Reference Range Interpretation Comments Lymphocytes # (test code = Lymphocytes 2.8 1.0-5.5 #) [facility] AustinAizdtviRNVMQFBCLY3051-35-90 14:20:00 Test Item Value Reference Range Interpretation Comments Monocytes # (test code 0.6 See_Comment [Aut omated message] The = Monocytes #) system which generated this result tra nsmitted reference range : <=0.8. The reference r laxmi was not used to int erpret this result as normal/abnormal . [facility] AustinVjmbrteAMPVXVLWCZ0056-49-54 14:20:00 Test Item Value Reference Range Interpretation Comments Eosinophils # (test code 0.2 See_Comment [A utomated message] The = Eosinophils #) system whic h generated this result tra nsmitted reference range : <=0.5. The reference r laxmi was not used to int erpret this result as normal/abnormal . [facility] AustinOaicugqWKIJNBTWYH7530-96-21 14:20:00 Test Item Value Reference Range Interpretation Comments Basophils # (test code 0.1 See_Comment [Aut omated message] The = Basophils #) system which generated this result tra nsmitted reference range : <=0.2. The reference r laxmi was not used to int erpret this result as normal/abnormal . [facility]DXHAYTQULF3871[facility] 14:20:00 Test Item Value Reference Range Interpretation Comments Lymphocytes (test code = Lymphocytes) 35.9 20.0-40.0 [facility] AustinGkmsuzsOKPWQMVMCR4773-67-85 14:20:00 Test Item Value Reference Range Interpretation Comments Segs (test code = Segs) 53.1 45.0-75.0 [facility] AustinNfmjufeUCSSBAXPHE7262-66-39 14:20:00 Test Item Value Reference Range Interpretation Comments Monocytes (test code = Monocytes) 7.3 2.0-12.0 [facility] AustinJoxjmwsOJGFYKAXDZ5132-18-82 14:20:00 Test Item Value Reference Range Interpretation Comments Segs-Bands # (test code = Segs-Bands #) 4.1 1.5-8.1 [facility] AustinWcxozjoFJYVLBDYGU9463-59-95 14:20:00 Test Item Value Reference Range Interpretation Comments Eosinophils (test code = 2.6 See_Comment [A utomated message] The Eosinophils) system which ge nerated this result tra nsmitted reference range : <=4.0. The reference r laxmi was not used to int erpret this result as normal/abnormal . [facility] AustinFgjehwxHHVQXHYYEF4229-99-86 14:20:00 Test Item Value Reference Range Interpretation Comments Basophils (test code = 1.1 See_Comment [Aut omated message] The Basophils) system which ge nerated this result tra nsmitted reference range : <=1.0. The reference r laxmi was not used to int erpret this result as normal/abnormal . [facility] HospitalDdzruplKTRDQWRZIW1132-91-02 14:20:00 Test Item Value Reference Range Interpretation Comments CDC HIV 4th GEN (test Negative (12/18/14 9:20 code = CDC HIV 4th AM) GEN) [facility] HospitalSMS THL HoldingsCARDIAC MAGTOAL5197-08-74 10:39:00 Test Item Value Reference Range Interpretation Comments CK MB Index (test 0.9 See_Comment [Automate d message] The code = CK MB Index) system w [facility] generated this result transmit irma reference range : <=2.5. The reference range was not used to interpr et this result as gabi l/abnormal. [facility] HospitalSMS THL HoldingsCARDIAC FILGSWY6859-95-36 10:39:00 Test Item Value Reference Range Interpretation Comments Total CK (test code = Total CK) 93 12-191 [facility] HermannCARDIAC XEZUYSF3924-40-35 10:39:00 Test Item Value Reference Range Interpretation Comments BNP (test code = BNP) 16 [facility] HospitalannCARDIAC HTAYPDM5360-95-13 10:39:00 Test Item Value Reference Range Interpretation Comments Troponin-I (test code no gt See_Comment [Auto mated message] The = Troponin-I) system which g enerated this result transmit irma reference range : <=0.40. The reference r laxmi was not used to interpr et this result as gabi l/abnormal. [facility] HospitalSMS THL HoldingsCARHyper9AC GOVIUBN7591-90-38 10:39:00 Test Item Value Reference Range Interpretation Comments CK MB (test code = CK MB) 0.8 0.5-3.6 [facility] CovacsisCHEM BJUOY2106-14-73 10:39:00 Test Item Value Reference Range Interpretation Comments Magnesium Lvl (test code = Magnesium 1.7 1.8-2.4 Lvl) [facility] CqwwcxvRCHPIQJNPYOU0980-77-53 10:39:00 Test Item Value Reference Range Interpretation Comments Chloride Lvl (test code = Chloride Lvl) 106 95-109 [facility] FxbwecuOESQHGVVYDUX3622-36-08 10:39:00 Test Item Value Reference Range Interpretation Comments Potassium Lvl (test code = Potassium 4.0 3.5-5.1 Lvl) [facility] HospitalYqgcdubVGUMGDXCQEGL6355-78-11 10:39:00 Test Item Value Reference Range Interpretation Comments Sodium Lvl (test code = Sodium Lvl) 141 135-145 [facility] NlxdnswJZDLZIIZWDJR6068-95-05 10:39:00 Test Item Value Reference Range Interpretation Comments eGFR (test code = eGFR) 102 [facility] HospitalVhsbqunFCSZVKKHULEX2642-61-86 10:39:00 Test Item Value Reference Range Interpretation Comments Creatinine Lvl (test code = Creatinine 0.8 0.5-1.4 Lvl) [facility] HospitalZjkadtxNWEZPDBNRNAW5526-72-23 10:39:00 Test Item Value Reference Range Interpretation Comments ALT (test code = ALT) 53 See_Comment [Auto mated message] The system which ge nerated this result transmit irma reference range : <=65. The reference range was not used to interpr et this result as gabi l/abnormal. [facility] HospitalByxecruKUFBYFMVPWRS3827-80-94 10:39:00 Test Item Value Reference Range Interpretation Comments A/G Ratio (test code = A/G Ratio) 1.1 0.7-1.6 [facility] HospitalGlvapqkVOPRSKALUUKY9436-35-06 10:39:00 Test Item Value Reference Range Interpretation Comments CO2 (test code = CO2) 23 24-32 [facility] HospitalQxprwquEUNGSDCVYYRC5553-27-07 10:39:00 Test Item Value Reference Range Interpretation Comments Calcium Lvl (test code = Calcium Lvl) 8.8 8.5-10.5 [facility] HospitalUgahaneIRCEKWWMIPGM9244-96-14 10:39:00 Test Item Value Reference Range Interpretation Comments Total Protein (test code = Total 6.6 6.4-8.4 Protein) [facility] HospitalAczrwfyUHGUNCPAFQCX8239-70-14 10:39:00 Test Item Value Reference Range Interpretation Comments Albumin Lvl (test code = Albumin Lvl) 3.4 3.5-5.0 [facility] HospitalOtfsqzjAWSTHAVJUDHP5089-54-63 10:39:00 Test Item Value Reference Range Interpretation Comments AST (test code = AST) 42 See_Comment [Auto mated message] The system which ge nerated this result transmit irma reference range : <=37. The reference range was not used to interpr et this result as gabi l/abnormal. [facility] HospitalLmxoiaiKYAACUPXDYAR0126-64-68 10:39:00 Test Item Value Reference Range Interpretation Comments Bili Total (test code = Bili Total) 0.4 0.2-1.3 [facility] HospitalZnubapmESXHLLXRVLKI7207-55-61 10:39:00 Test Item Value Reference Range Interpretation Comments Alk Phos (test code = Alk Phos) 81 39-136 [facility] HospitalRbhjkudGTZKTUHTUFPK5682-60-83 10:39:00 Test Item Value Reference Range Interpretation Comments AGAP (test code = AGAP) 16.0 10.0-20.0 [facility] HospitalNtjrcvpKRGOVULWEYTQ2593-85-03 10:39:00 Test Item Value Reference Range Interpretation Comments Globulin (test code = Globulin) 3.2 2.0-4.0 [facility] HospitalOhndqkePQXFFUVQOVFE0059-43-22 10:39:00 Test Item Value Reference Range Interpretation Comments B/C Ratio (test code = B/C Ratio) 9 6-25 [facility] HospitalYqqgrlbJLZUHXXZWYQA8394-11-81 10:39:00 Test Item Value Reference Range Interpretation Comments BUN (test code = BUN) 7 7- [facility] HospitalHxbdkjkCYDLWNIUUCJH1774-39-56 10:39:00 Test Item Value Reference Range Interpretation Comments Glucose Lvl (test code = Glucose Lvl) 208 70-99 [facility] AustinUelotzsBGPVUMQZDC9906-96-69 10:39:00 Test Item Value Reference Range Interpretation Comments Basophils # (test code 0.1 See_Comment [Aut omated message] The = Basophils #) system which generated this result tra nsmitted reference range : <=0.2. The reference r laxmi was not used to int erpret this result as normal/abnormal . [facility] AustinTdudhamENDIEYRKTY7914-56-43 10:39:00 Test Item Value Reference Range Interpretation Comments Eosinophils # (test code 0.3 See_Comment [A utomated message] The = Eosinophils #) system whic h generated this result tra nsmitted reference range : <=0.5. The reference r laxmi was not used to int erpret this result as normal/abnormal . [facility] AustinAmkzrsuOIZHMBRSRJ0139-80-18 10:39:00 Test Item Value Reference Range Interpretation Comments Monocytes # (test code 0.5 See_Comment [Aut omated message] The = Monocytes #) system which generated this result tra nsmitted reference range : <=0.8. The reference r laxmi was not used to int erpret this result as normal/abnormal . [facility] AustinEmgbooaJIQJSNULWG5922-81-83 10:39:00 Test Item Value Reference Range Interpretation Comments Lymphocytes # (test code = Lymphocytes 2.7 1.0-5.5 #) [facility] AustinHdpjcdoLGKZCXIDAD8473-57-71 10:39:00 Test Item Value Reference Range Interpretation Comments Eosinophils (test code = 3.7 See_Comment [A utomated message] The Eosinophils) system which ge nerated this result tra nsmitted reference range : <=4.0. The reference r laxmi was not used to int erpret this result as normal/abnormal . [facility] AustinQjkgyjoGCTTIAHCZF5605-98-07 10:39:00 Test Item Value Reference Range Interpretation Comments Monocytes (test code = Monocytes) 7.3 2.0-12.0 [facility] AustinJresuahUANDYRDEZK8576-19-67 10:39:00 Test Item Value Reference Range Interpretation Comments Basophils (test code = 1.2 See_Comment [Aut omated message] The Basophils) system which ge nerated this result tra nsmitted reference range : <=1.0. The reference r laxmi was not used to int erpret this result as normal/abnormal . [facility] AustinVwtimyfNFQQSWUSKS5465-03-86 10:39:00 Test Item Value Reference Range Interpretation Comments Segs (test code = Segs) 49.6 45.0-75.0 [facility] AustinQlimmfySWVQPZJPIT0048-50-47 10:39:00 Test Item Value Reference Range Interpretation Comments Lymphocytes (test code = Lymphocytes) 38.2 20.0-40.0 [facility] AustinZqbempjKCEVQCQEVE0079-90-52 10:39:00 Test Item Value Reference Range Interpretation Comments Segs-Bands # (test code = Segs-Bands #) 3.6 1.5-8.1 [facility] AustinAinjjkyAAHHFULAHP4160-99-02 10:39:00 Test Item Value Reference Range Interpretation Comments RDW (test code = RDW) 14.0 11.5-14.5 [facility] AustinQrvazvvRWWKFQEGYB3289-20-55 10:39:00 Test Item Value Reference Range Interpretation Comments MCHC (test code = MCHC) 33.0 32.0-36.0 [facility] AustinWcxisnvXAYVXYVUTV6725-35-12 10:39:00 Test Item Value Reference Range Interpretation Comments Platelet (test code = Platelet) 216 133-450 [facility] AustinKchftovQBYBQZCXNM2911-10-17 10:39:00 Test Item Value Reference Range Interpretation Comments MCH (test code = MCH) 30.9 pg 27.0-31.0 [facility] AustinFniffpqUJPUBCOXVK3106-70-13 10:39:00 Test Item Value Reference Range Interpretation Comments MCV (test code = MCV) 93.6 80.0-98.0 [facility] AustinWtmvdcgZPQSCZAAFK0429-68-90 10:39:00 Test Item Value Reference Range Interpretation Comments MPV (test code = MPV) 10.1 7.4-10.4 [facility] AustinDbsafurWGTUGAOARZ8365-00-69 10:39:00 Test Item Value Reference Range Interpretation Comments Hgb (test code = Hgb) 12.0 12.0-16.0 [facility] AustinTyhgqspKQZYGJPBPU0515-69-81 10:39:00 Test Item Value Reference Range Interpretation Comments RBC (test code = RBC) 3.89 4.20-5.40 [facility] HospitalOeohfvhSXHCVCMMRM7147-91-69 10:39:00 Test Item Value Reference Range Interpretation Comments Hct (test code = Hct) 36.5 36.0-48.0 [facility]NiiakdqVGGWEHCILE6409-81-70 10:39:00 Test Item Value Reference Range Interpretation Comments WBC (test code = WBC) 7.2 3.7-10.4 [facility] HospitalGhoqgppXBADKD7095-64-24 10:39:00 Test Item Value Reference Range Interpretation Comments VLDL (test code = VLDL) 76 [facility] HospitalLoysosbMOYUYW4981-79-68 10:39:00 Test Item Value Reference Range Interpretation Comments LDL (Calculated) (test code = LDL 67 (Calculated)) [facility]lineHhyiekpJOICTI2401-54-65 10:39:00 Test Item Value Reference Range Interpretation Comments Trig (test code = Trig) 379 [facility] ShorelineCqzfsktQGQRUY0671-94-94 10:39:00 Test Item Value Reference Range Interpretation Comments CHD Risk (test code = CHD Risk) 6.50 3.90-5.80 [facility] HospitalHpscizyXPYOIX4997-54-60 10:39:00 Test Item Value Reference Range Interpretation Comments Chol (test code = Chol) 169 [facility]lineMrgxuvdQMYXPC1511-46-75 10:39:00 Test Item Value Reference Range Interpretation Comments HDL (test code = HDL) 26 [facility] ShorelineTHYROID GDTPO6936-52-31 10:39:00 Test Item Value Reference Range Interpretation Comments TSH (test code = TSH) 1.540 0.360-3.740 [facility]annCARDIAC TCYENDG5633-89-60 10:37:00 Test Item Value Reference Range Interpretation Comments Total CK (test code = Total CK) 110 12-191 [facility]annCARDIAC JEDMHRC4050-45-32 10:37:00 Test Item Value Reference Range Interpretation Comments CK MB (test code = CK MB) no gt 0.5-3.6 [facility]annCARDIAC WKVIMIL1600-76-41 10:37:00 Test Item Value Reference Range Interpretation Comments Troponin-I (test code no gt See_Comment [Auto mated message] The = Troponin-I) system which g enerated this result transmit irma reference range : <=0.40. The reference r laxmi was not used to interpr et this result as gabi l/abnormal. [facility]annCARDIAC RLCFLQT0294-87-15 10:37:00 Test Item Value Reference Range Interpretation Comments CK MB Index (test no gt See_Comment [Automate d message] The code = CK MB Index) system w [facility] generated this result transmit irma reference range : <=2.5. The reference range was not used to interpr et this result as gabi l/abnormal. [facility] ShorelineNpummkhCYUUCPICGDJYZ1139-00-66 10:37:00 Test Item Value Reference Range Interpretation Comments S Preg (test code = S Negative *NA*(08/02/14 Preg) 5:37 AM) [facility]lineCARDIAC ILLTARP9532-16-26 20:14:00 Test Item Value Reference Range Interpretation Comments Troponin-I (test code no gt See_Comment [Auto mated message] The = Troponin-I) system which g enerated this result transmit irma reference range : <=0.40. The reference r laxmi was not used to interpr et this result as gabi l/abnormal. [facility] YWMFV4291-37-25 20:14:00 Test Item Value Reference Range Interpretation Comments UA Urobilinogen (test code = UA <=1.0 mg/dL 0.1-1.0 Urobilinogen) [facility] [id number] 20:14:00 Test Item Value Reference Range Interpretation Comments UA Color (test code = UA Color) Ltyellow [facility]annH[facility] [id number] 20:14:00 Test Item Value Reference Range Interpretation Comments UA RBC (test code = 3 See_Comment [Automa irma message] The UA RBC) system which ge nerated this result transmit irma reference range : <=2. The reference range was not used to interpr et this result as gabi l/abnormal. [facility]ureenannHAM[facility] AND [id number] 20:14:00 Test Item Value Reference Range Interpretation Comments UA WBC (test code = no gt See_Comment [Automa irma message] The UA WBC) system which ge nerated this result transmit irma reference range : <=5. The reference range was not used to interpr et this result as gabi l/abnormal. [facility] MaureenannURINE AND [id number] 20:14:00 Test Item Value Reference Range Interpretation Comments UA Sq Epi (test code = UA Sq Occasional /LPF Epi) [facility] AND [id number] 20:14:00 Test Item Value Reference Range Interpretation Comments UA Leuk Est (test Negative (08/01/14 3:14 code = UA Leuk Est) PM) [facility] AND [id number] 20:14:00 Test Item Value Reference Range Interpretation Comments UA Blood (test code = Negative (08/01/14 3:14 UA Blood) PM) [facility] AND [id number] 20:14:00 Test Item Value Reference Range Interpretation Comments UA Bili (test code = Negative *NA*(08/01/14 UA Bili) 3:14 PM) [facility] AND [id number] 20:14:00 Test Item Value Reference Range Interpretation Comments UA Nitrite (test code Negative (08/01/14 3:14 = UA Nitrite) PM) [facility] AND [id number] 20:14:00 Test Item Value Reference Range Interpretation Comments UA Spec Grav (test code = UA Spec Grav) 1.024 [facility] AND [id number] 20:14:00 Test Item Value Reference Range Interpretation Comments UA Turbidity (test code = Clear (08/01/14 3:14 UA Turbidity) PM) [facility] AND [id number] 20:14:00 Test Item Value Reference Range Interpretation Comments UA Ketones (test code = UA Negative mg/dL Ketones) [facility] AND [id number] 20:14:00 Test Item Value Reference Range Interpretation Comments UA Glucose (test code = UA Glucose) 500 mg/dL [facility] AND [id number] 20:14:00 Test Item Value Reference Range Interpretation Comments UA Protein (test code = UA Negative mg/dL Protein) [facility] AND AVTMJ7971-01-39 20:14:00 Test Item Value Reference Range Interpretation Comments UA pH (test code = UA pH) 5.0 5.0-8.0 [facility] QVEKJII0809-22-82 17:05:00 Test Item Value Reference Range Interpretation Comments CK MB (test code = CK MB) no gt 0.5-3.6 [facility]annCARDIAC [id number] 17:05:00 Test Item Value Reference Range Interpretation Comments Total CK (test code = Total CK) 124 12-191 [facility] HospitalStitch IQNZRRO2658-87-52 17:05:00 Test Item Value Reference Range Interpretation Comments CK MB Index (test no gt See_Comment [Automate d message] The code = CK MB Index) system w [employer] generated this result transmit irma reference range : <=2.5. The reference range was not used to interpr et this result as gabi l/abnormal. [facility] [employer] [id number] 17:05:00 Test Item Value Reference Range Interpretation Comments eGFR (test code = eGFR) 102 [facility] [employer] [id number] 17:05:00 Test Item Value Reference Range Interpretation Comments Albumin Lvl (test code = Albumin Lvl) 3.7 3.5-5.0 [facility] [employer] [id number] 17:05:00 Test Item Value Reference Range Interpretation Comments ALT (test code = ALT) 53 See_Comment [Auto mated message] The system which ge nerated this result transmit irma reference range : <=65. The reference range was not used to interpr et this result as gabi l/abnormal. [facility] [employer]2015-04-10 17:05:00 Test Item Value Reference Range Interpretation Comments AST (test code = AST) 46 See_Comment [Auto mated message] The system which ge nerated this result transmit irma reference range : <=37. The reference range was not used to interpr et this result as gabi l/abnormal. [facility] [employer]2015-04-10 17:05:00 Test Item Value Reference Range Interpretation Comments Alk Phos (test code = Alk Phos) 86 39-136 [facility] [employer] [id number] 17:05:00 Test Item Value Reference Range Interpretation Comments Glucose Lvl (test code = Glucose Lvl) 277 70-99 [facility] [employer] [id number] 17:05:00 Test Item Value Reference Range Interpretation Comments BUN (test code = BUN) 9 7-22 [facility] HospitalVocent [id number] 17:05:00 Test Item Value Reference Range Interpretation Comments AGAP (test code = AGAP) 14.0 10.0-20.0 [facility]2015-04-10 17:05:00 Test Item Value Reference Range Interpretation Comments B/C Ratio (test code = B/C Ratio) 11 -25 [facility]2015-04-10 17:05:00 Test Item Value Reference Range Interpretation Comments Globulin (test code = Globulin) 4.2 2.0-4.0 [facility]2015-04-10 17:05:00 Test Item Value Reference Range Interpretation Comments A/G Ratio (test code = A/G Ratio) 0.9 0.7-1.6 [facility]2015-04-10 17:05:00 Test Item Value Reference Range Interpretation Comments Creatinine Lvl (test code = Creatinine 0.8 0.5-1.4 Lvl) [facility]2015-04-10 17:05:00 Test Item Value Reference Range Interpretation Comments CO2 (test code = CO2) 23 [facility]2015-04-10 17:05:00 Test Item Value Reference Range Interpretation Comments Calcium Lvl (test code = Calcium Lvl) 8.7 8.5-10.5 [facility]2015-04-10 17:05:00 Test Item Value Reference Range Interpretation Comments Total Protein (test code = Total 7.9 6.4-8.4 Protein) [facility]2015-04-10 17:05:00 Test Item Value Reference Range Interpretation Comments Bili Total (test code = Bili Total) 0.4 0.2-1.3 [facility]2015-04-10 17:05:00 Test Item Value Reference Range Interpretation Comments Potassium Lvl (test code = Potassium 4.0 3.5-5.1 Lvl) [facility]2015-04-10 17:05:00 Test Item Value Reference Range Interpretation Comments Chloride Lvl (test code = Chloride Lvl) 100 95-109 [facility]2015-04-10 17:05:00 Test Item Value Reference Range Interpretation Comments Sodium Lvl (test code = Sodium Lvl) 133 135-145 [facility]2015-04-10 17:05:00 Test Item Value Reference Range Interpretation Comments Phosphorus (test code = Phosphorus) 3.0 2.5-4.5 [facility]2015-04-10 17:05:00 Test Item Value Reference Range Interpretation Comments Magnesium Lvl (test code = Magnesium 1.4 1.8-2.4 Lvl) [facility]wvbctvRBMEUBGNCP9358-01-85 17:05:00 Test Item Value Reference Range Interpretation Comments INR (test code = INR) 0.98 0.85-1.17 [facility] AustinYmmqnvjNYMLLAFWQC9021-74-09 17:05:00 Test Item Value Reference Range Interpretation Comments PTT (test code = PTT) 25.4 s 22.9-35.8 [facility] AustinNodreczCVNAYZEEZU6774-00-59 17:05:00 Test Item Value Reference Range Interpretation Comments PT (test code = PT) 13.0 s 12.0-14.7 [facility] AustinTsusgwkOQJBSAJNDZ5078-91-01 17:05:00 Test Item Value Reference Range Interpretation Comments Lymphocytes # (test code = Lymphocytes 2.6 1.0-5.5 #) [facility] AustinSdhjakmODDPGEJBEP5868-34-86 17:05:00 Test Item Value Reference Range Interpretation Comments Monocytes # (test code 0.5 See_Comment [Aut omated message] The = Monocytes #) system which generated this result tra nsmitted reference range : <=0.8. The reference r laxmi was not used to int erpret this result as normal/abnormal . [facility] AustinLpdtoslCQTDYLKVNK2864-78-73 17:05:00 Test Item Value Reference Range Interpretation Comments Basophils # (test code 0.1 See_Comment [Aut omated message] The = Basophils #) system which generated this result tra nsmitted reference range : <=0.2. The reference r laxmi was not used to int erpret this result as normal/abnormal . [facility] AustinCnnvyxiCARBRZEDXB4023-57-50 17:05:00 Test Item Value Reference Range Interpretation Comments Eosinophils # (test code 0.2 See_Comment [A utomated message] The = Eosinophils #) system whic h generated this result tra nsmitted reference range : <=0.5. The reference r laxmi was not used to int erpret this result as normal/abnormal . [facility] AustinKsybsaaPLYZOMXVHQ7562-72-89 17:05:00 Test Item Value Reference Range Interpretation Comments Segs-Bands # (test code = Segs-Bands #) 5.0 1.5-8.1 [facility] AustinLkwjjciLUWXHXIQPS2400-25-13 17:05:00 Test Item Value Reference Range Interpretation Comments Segs (test code = Segs) 60.1 45.0-75.0 [facility] AustinHkhtajnYSDRYOUOYA0823-19-72 17:05:00 Test Item Value Reference Range Interpretation Comments Lymphocytes (test code = Lymphocytes) 30.5 20.0-40.0 [facility] AustinPoqgqjtYYCWRPSXZI3854-26-47 17:05:00 Test Item Value Reference Range Interpretation Comments Monocytes (test code = Monocytes) 5.4 2.0-12.0 [facility] AustinTahpfbpDGGDXDWJKH7488-89-65 17:05:00 Test Item Value Reference Range Interpretation Comments Eosinophils (test code = 2.7 See_Comment [A utomated message] The Eosinophils) system which ge nerated this result tra nsmitted reference range : <=4.0. The reference r laxmi was not used to int erpret this result as normal/abnormal . [facility] AustinQnqrxagORITNYYBGK0347-25-74 17:05:00 Test Item Value Reference Range Interpretation Comments Basophils (test code = 1.3 See_Comment [Aut omated message] The Basophils) system which ge nerated this result tra nsmitted reference range : <=1.0. The reference r laxmi was not used to int erpret this result as normal/abnormal . [facility] AustinXxaervdOEVGPYQSGG9550-75-37 17:05:00 Test Item Value Reference Range Interpretation Comments MPV (test code = MPV) 10.2 7.4-10.4 [facility] AustinVybmroaJLGIHHIRIY7043-91-67 17:05:00 Test Item Value Reference Range Interpretation Comments Platelet (test code = Platelet) 253 133-450 [facility] AustinYwnhlfkDYBZYQBEQN5952-04-52 17:05:00 Test Item Value Reference Range Interpretation Comments RDW (test code = RDW) 14.0 11.5-14.5 [facility] AustinNgyipvnZXWHCXAMQV8603-57-69 17:05:00 Test Item Value Reference Range Interpretation Comments Hgb (test code = Hgb) 13.5 12.0-16.0 [facility] AustinPidmgnyLVMQBTYZSQ1927-94-83 17:05:00 Test Item Value Reference Range Interpretation Comments RBC (test code = RBC) 4.21 4.20-5.40 [facility] AustinNqjzqyoZLUJZPCZBS2911-94-90 17:05:00 Test Item Value Reference Range Interpretation Comments MCHC (test code = MCHC) 34.8 32.0-36.0 [facility]BheobekPKSNOAMYLT0343-03-84 17:05:00 Test Item Value Reference Range Interpretation Comments MCH (test code = MCH) 32.0 pg 27.0-31.0 [facility] HospitalShghutpVVBMVUUVPL9008-31-45 17:05:00 Test Item Value Reference Range Interpretation Comments WBC (test code = WBC) 8.4 3.7-10.4 [facility] HospitalNdhjexbMKCDUVIKMN7096-87-52 17:05:00 Test Item Value Reference Range Interpretation Comments MCV (test code = MCV) 91.9 80.0-98.0 [facility] HospitalKkfjtwxUVZHIFSFRE3535-59-28 17:05:00 Test Item Value Reference Range Interpretation Comments Hct (test code = Hct) 38.7 36.0-48.0 [facility] HospitalDghvuauIBFHPSFLRP9548-33-49 07:16:00 Test Item Value Reference Range Interpretation Comments D-Dimer (test code = D-Dimer) 0.58 [facility] HospitalStitchAC JJKDOVX3278-16-36 00:01:00 Test Item Value Reference Range Interpretation Comments CK MB (test code = CK MB) 0.8 0.5-3.6 [facility] HospitalStitchAC FMSBMUZ9520-15-36 00:01:00 Test Item Value Reference Range Interpretation Comments Total CK (test code = Total CK) 159 12-191 [facility] HospitalStitch[facility] UGCUWWF4760-15-42 00:01:00 Test Item Value Reference Range Interpretation Comments Troponin-I (test code no gt See_Comment [Auto mated message] The = Troponin-I) system which g enerated this result transmit irma reference range : <=0.40. The reference r laxmi was not used to interpr et this result as gabi l/abnormal. [facility] HospitalStitchAC RHMBTGI4705-22-79 00:01:00 Test Item Value Reference Range Interpretation Comments CK MB Index (test 0.5 See_Comment [Automate d message] The code = CK MB Index) system [facility] generated this result transmit irma reference range : <=2.5. The reference range was not used to interpr et this result as gabi l/abnormal. [facility] CovacsisCHEM ACFXH1817-49-16 00:01:00 Test Item Value Reference Range Interpretation Comments Ketone Quantitative (test code = Ketone 0.19 Quantitative) [facility]2015-01-13 00:01:00 Test Item Value Reference Range Interpretation Comments eGFR (test code = eGFR) 79 [facility]2015-01-13 00:01:00 Test Item Value Reference Range Interpretation Comments Alk Phos (test code = Alk Phos) 134 39-136 [facility]2015-01-13 00:01:00 Test Item Value Reference Range Interpretation Comments Bili Total (test code = Bili Total) 0.4 0.2-1.3 [facility]2015-01-13 00:01:00 Test Item Value Reference Range Interpretation Comments AST (test code = AST) 41 See_Comment [Auto mated message] The system which ge nerated this result transmit irma reference range : <=37. The reference range was not used to interpr et this result as gabi l/abnormal. [facility]2015-01-13 00:01:00 Test Item Value Reference Range Interpretation Comments ALT (test code = ALT) 65 See_Comment [Auto mated message] The system which ge nerated this result transmit irma reference range : <=65. The reference range was not used to interpr et this result as gabi l/abnormal. [facility]2015-01-13 00:01:00 Test Item Value Reference Range Interpretation Comments Creatinine Lvl (test code = Creatinine 1.0 0.5-1.4 Lvl) [facility]2015-01-13 00:01:00 Test Item Value Reference Range Interpretation Comments B/C Ratio (test code = B/C Ratio) 9 6-25 [facility]2015-01-13 00:01:00 Test Item Value Reference Range Interpretation Comments AGAP (test code = AGAP) 13.7 10.0-20.0 [facility]2015-01-13 00:01:00 Test Item Value Reference Range Interpretation Comments CO2 (test code = CO2) 25 24-32 [facility]2015-01-13 00:01:00 Test Item Value Reference Range Interpretation Comments A/G Ratio (test code = A/G Ratio) 1.1 0.7-1.6 [facility]2015-01-13 00:01:00 Test Item Value Reference Range Interpretation Comments Globulin (test code = Globulin) 3.9 2.0-4.0 [facility]2015-01-13 00:01:00 Test Item Value Reference Range Interpretation Comments Albumin Lvl (test code = Albumin Lvl) 4.1 3.5-5.0 [facility]2015-01-13 00:01:00 Test Item Value Reference Range Interpretation Comments Total Protein (test code = Total 8.0 6.4-8.4 Protein) [facility]2015-01-13 00:01:00 Test Item Value Reference Range Interpretation Comments BUN (test code = BUN) 9 7-22 [facility]2015-01-13 00:01:00 Test Item Value Reference Range Interpretation Comments Glucose Lvl (test code = Glucose Lvl) 463 70-99 [facility]2015-01-13 00:01:00 Test Item Value Reference Range Interpretation Comments Calcium Lvl (test code = Calcium Lvl) 9.5 8.5-10.5 [facility]2015-01-13 00:01:00 Test Item Value Reference Range Interpretation Comments Sodium Lvl (test code = Sodium Lvl) 130 135-145 [facility]2015-01-13 00:01:00 Test Item Value Reference Range Interpretation Comments Chloride Lvl (test code = Chloride Lvl) 95 95-109 [facility]2015-01-13 00:01:00 Test Item Value Reference Range Interpretation Comments Potassium Lvl (test code = Potassium 3.7 3.5-5.1 Lvl) [facility] AustinFrodsmqTRNAHQZSGU1983-42-66 00:01:00 Test Item Value Reference Range Interpretation Comments RBC (test code = RBC) 4.35 4.20-5.40 [facility] AustinLwskrpgDULREGCCAU2024-13-60 00:01:00 Test Item Value Reference Range Interpretation Comments Hgb (test code = Hgb) 13.5 12.0-16.0 [facility] AustinOuwajzaHEQKERMPJN1640-29-87 00:01:00 Test Item Value Reference Range Interpretation Comments WBC (test code = WBC) 9.7 3.7-10.4 [place] 064155-01-13 00:01:00 Test Item Value Reference Range Interpretation Comments MPV (test code = MPV) 10.2 7.4-10.4 [facility] AustinLbotrycBEJLCNYVAG1882-73-06 00:01:00 Test Item Value Reference Range Interpretation Comments MCHC (test code = MCHC) 34.5 32.0-36.0 [facility] AustinHhjpcbhNKGFTYYXMB8364-22-89 00:01:00 Test Item Value Reference Range Interpretation Comments RDW (test code = RDW) 13.1 11.5-14.5 [facility] AustinZryehtqOFANYYTYZZ8293-33-27 00:01:00 Test Item Value Reference Range Interpretation Comments Hct (test code = Hct) 39.0 36.0-48.0 [facility] AustinGpavdjzEWYQZWXNTG2673-33-64 00:01:00 Test Item Value Reference Range Interpretation Comments MCH (test code = MCH) 30.9 pg 27.0-31.0 [facility] AustinGvrjdtbXEHOTMSTVI9245-83-09 00:01:00 Test Item Value Reference Range Interpretation Comments MCV (test code = MCV) 89.6 80.0-98.0 [facility] AustinYawzzdaOECXABZIIY4537-97-48 00:01:00 Test Item Value Reference Range Interpretation Comments Platelet (test code = Platelet) 257 133-450 [facility] AustinDwbirqgBBQOWIIVSW6578-77-36 00:01:00 Test Item Value Reference Range Interpretation Comments RBC Morph (test code = Normal (05/05/14 6:01 RBC Morph) PM) [facility] AustinPtgjrwnEOJCGWXIKM6731-69-81 00:01:00 Test Item Value Reference Range Interpretation Comments Plt Morph (test code = Normal (05/05/14 6:01 Plt Morph) PM) [facility] AustinZytkqzdRSUAONTBDP5970-95-58 00:01:00 Test Item Value Reference Range Interpretation Comments Segs (test code = Segs) 55.7 45.0-75.0 [facility] AustinVfvdduaWUXBKRAYOX8149-24-05 00:01:00 Test Item Value Reference Range Interpretation Comments Lymphocytes (test code = Lymphocytes) 35.7 20.0-40.0 [facility] AustinIkkxaloIVNVTBBLRB8841-80-48 00:01:00 Test Item Value Reference Range Interpretation Comments Monocytes (test code = Monocytes) 5.7 2.0-12.0 [facility] AustinEtxhhhfDHABBUCZEW0365-24-84 00:01:00 Test Item Value Reference Range Interpretation Comments Eosinophils (test code = 1.9 See_Comment [A utomated message] The Eosinophils) system which ge nerated this result tra nsmitted reference range : <=4.0. The reference r laxmi was not used to int erpret this result as normal/abnormal . [facility] AustinBxdclpjQSKSEUEIKE8030-85-67 00:01:00 Test Item Value Reference Range Interpretation Comments Basophils (test code = 1.0 See_Comment [Aut omated message] The Basophils) system which ge nerated this result tra nsmitted reference range : <=1.0. The reference r laxmi was not used to int erpret this result as normal/abnormal . [facility] AustinYbhjxcuFDQUYCSAAY0104-92-81 00:01:00 Test Item Value Reference Range Interpretation Comments Lymphocytes # (test code = Lymphocytes 3.5 1.0-5.5 #) [facility] AustinYiuxlzdCZJTOZJFDV6692-06-60 00:01:00 Test Item Value Reference Range Interpretation Comments Monocytes # (test code 0.6 See_Comment [Aut omated message] The = Monocytes #) system which generated this result tra nsmitted reference range : <=0.8. The reference r laxmi was not used to int erpret this result as normal/abnormal . [facility] AustinHupirnpUQPHPNPVZP3221-12-25 00:01:00 Test Item Value Reference Range Interpretation Comments Segs-Bands # (test code = Segs-Bands #) 5.4 1.5-8.1 [facility] AustinDonzwmdGWRCNASFJU1712-87-94 00:01:00 Test Item Value Reference Range Interpretation Comments Eosinophils # (test code 0.2 See_Comment [A utomated message] The = Eosinophils #) system ic h generated this result tra nsmitted reference range : <=0.5. The reference r laxmi was not used to int erpret this result as normal/abnormal . [facility] AustinZzhfmdtHSKOHKUDJE8427-91-34 00:01:00 Test Item Value Reference Range Interpretation Comments Basophils # (test code 0.1 See_Comment [Aut omated message] The = Basophils #) system which generated this result tra nsmitted reference range : <=0.2. The reference r laxmi was not used to int erpret this result as normal/abnormal . [facility]2015-01-13 00:01:00 Test Item Value Reference Range Interpretation Comments UA pH (test code = UA pH) 5.0 5.0-8.0 [facility]2015-01-13 00:01:00 Test Item Value Reference Range Interpretation Comments UA Spec Grav (test code = UA Spec Grav) 1.021 [facility] AND [id number] 00:01:00 Test Item Value Reference Range Interpretation Comments UA Glucose (test code = UA Glucose) 500 mg/dL [facility] AND IZYFQ7543-26-27 00:01:00 Test Item Value Reference Range Interpretation Comments UA Protein (test code = UA Negative mg/dL Protein) [facility] AND [id number] 00:01:00 Test Item Value Reference Range Interpretation Comments UA RBC (test code = 1 See_Comment [Automa irma message] The UA RBC) system which ge nerated this result transmit irma reference range : <=2. The reference range was not used to interpr et this result as gabi l/abnormal. [facility] AND [id number] 00:01:00 Test Item Value Reference Range Interpretation Comments UA Blood (test code = Negative (05/05/14 6:01 UA Blood) PM) [facility] AND [id number] 00:01:00 Test Item Value Reference Range Interpretation Comments UA Nitrite (test code Negative (05/05/14 6:01 = UA Nitrite) PM) [facility] AND [id number] 00:01:00 Test Item Value Reference Range Interpretation Comments UA Leuk Est (test Negative (05/05/14 6:01 code = UA Leuk Est) PM) [facility] AND [id number] 00:01:00 Test Item Value Reference Range Interpretation Comments UA Sq Epi (test code = UA Sq Epi) None Seen [facility] AND [id number] 00:01:00 Test Item Value Reference Range Interpretation Comments UA Color (test code = UA Color) Colorless [facility] AND [id number] 00:01:00 Test Item Value Reference Range Interpretation Comments UA Turbidity (test code = Clear (05/05/14 6:01 UA Turbidity) PM) [facility] AND [id number] 00:01:00 Test Item Value Reference Range Interpretation Comments UA Ketones (test code = UA Negative mg/dL Ketones) [facility] AND [id number] 00:01:00 Test Item Value Reference Range Interpretation Comments UA Bili (test code = Negative *NA*(05/05/14 UA Bili) 6:01 PM) [facility] [id number] 00:01:00 Test Item Value Reference Range Interpretation Comments UA Urobilinogen (test code = UA <=1.0 mg/dL 0.1-1.0 Urobilinogen) [facility] MooanxjOWEFATNGMS0924-74-49 20:57:05 Test Item Value Reference Range Interpretation Comments PTT (test code = PTT) 27.0 s 22.9-35.8 [facility] [id number] 20:57:00 Test Item Value Reference Range Interpretation Comments CK MB Index (test 0.9 See_Comment [Automate d message] The code = CK MB Index) system w [facility] generated this result transmit irma reference range : <=2.5. The reference range was not used to interpr et this result as gabi l/abnormal. [facility] [id number] 20:57:00 Test Item Value Reference Range Interpretation Comments CK MB (test code = CK MB) 0.9 0.5-3.6 [facility] [id number] 20:57:00 Test Item Value Reference Range Interpretation Comments Total CK (test code = Total CK) 100 12-191 [facility] [id number] 20:57:00 Test Item Value Reference Range Interpretation Comments Troponin-I (test code no gt See_Comment [Auto mated message] The = Troponin-I) system which g enerated this result transmit irma reference range : <=0.40. The reference r laxmi was not used to interpr et this result as gabi l/abnormal. [facility] [id number] 15:08:00 Test Item Value Reference Range Interpretation Comments UA Urobilinogen (test code = UA <=1.0 mg/dL 0.1-1.0 Urobilinogen) [facility] [id number] 15:08:00 Test Item Value Reference Range Interpretation Comments UA Color (test code = UA Color) Ltyellow [facility] [id number] 15:08:00 Test Item Value Reference Range Interpretation Comments UA RBC (test code = no gt See_Comment [Automa irma message] The UA RBC) system which ge nerated this result transmit irma reference range : <=2. The reference range was not used to interpr et this result as gabi l/abnormal. [facility] AND [id number] 15:08:00 Test Item Value Reference Range Interpretation Comments UA Sq Epi (test code = UA Sq Occasional /LPF Epi) [facility] AND [id number] 15:08:00 Test Item Value Reference Range Interpretation Comments UA Nitrite (test code Negative (03/06/14 9:08 = UA Nitrite) AM) [facility] AND [id number] 15:08:00 Test Item Value Reference Range Interpretation Comments UA Leuk Est (test Negative (03/06/14 9:08 code = UA Leuk Est) AM) [facility] AND [id number] 15:08:00 Test Item Value Reference Range Interpretation Comments UA WBC (test code = no gt See_Comment [Automa irma message] The UA WBC) system which ge nerated this result transmit irma reference range : <=5. The reference range was not used to interpr et this result as gabi l/abnormal. [facility] AND [id number] 15:08:00 Test Item Value Reference Range Interpretation Comments UA Ketones (test code = UA Negative mg/dL Ketones) [facility] AND [id number] 15:08:00 Test Item Value Reference Range Interpretation Comments UA Blood (test code = Negative (03/06/14 9:08 UA Blood) AM) [facility] AND [id number] 15:08:00 Test Item Value Reference Range Interpretation Comments UA Spec Grav (test code = UA Spec Grav) 1.030 [facility] AND [id number] 15:08:00 Test Item Value Reference Range Interpretation Comments UA pH (test code = UA pH) 6.0 5.0-8.0 [facility] AND [id number] 15:08:00 Test Item Value Reference Range Interpretation Comments UA Turbidity (test code = Clear (03/06/14 9:08 UA Turbidity) AM) [facility] AND [id number] 15:08:00 Test Item Value Reference Range Interpretation Comments UA Glucose (test code = UA Glucose) 500 mg/dL [facility] [id number] 15:08:00 Test Item Value Reference Range Interpretation Comments UA Bili (test code = Negative *NA*(03/06/14 UA Bili) 9:08 AM) [facility] [id number] 15:08:00 Test Item Value Reference Range Interpretation Comments UA Protein (test code = UA Negative mg/dL Protein) [facility] [id number] 14:19:00 Test Item Value Reference Range Interpretation Comments BNP (test code = BNP) 5 [facility] [id number] 14:19:00 Test Item Value Reference Range Interpretation Comments Troponin-I (test code no gt See_Comment [Auto mated message] The = Troponin-I) system which g enerated this result transmit irma reference range : <=0.40. The reference r laxmi was not used to interpr et this result as gabi l/abnormal. [facility] AannCARHyper9AC [id number] 14:19:00 Test Item Value Reference Range Interpretation Comments CK MB (test code = CK MB) 0.8 0.5-3.6 [facility] [id number] 14:19:00 Test Item Value Reference Range Interpretation Comments Total CK (test code = Total CK) 138 12-191 [facility] [id number] 14:19:00 Test Item Value Reference Range Interpretation Comments CK MB Index (test 0.6 See_Comment [Automate d message] The code = CK MB Index) system [facility] generated this result transmit irma reference range : <=2.5. The reference range was not used to interpr et this result as gabi l/abnormal. [facility] [employer] [id number] 14:19:00 Test Item Value Reference Range Interpretation Comments B/C Ratio (test code = B/C Ratio) 12 6-25 [facility] [employer] [id number] 14:19:00 Test Item Value Reference Range Interpretation Comments BUN (test code = BUN) 7 7- [facility] [employer] [id number] 14:19:00 Test Item Value Reference Range Interpretation Comments A/G Ratio (test code = A/G Ratio) 1.8 0.7-1.6 [facility] [id number] 14:19:00 Test Item Value Reference Range Interpretation Comments Globulin (test code = Globulin) 1.9 2.0-4.0 [place] 145694-11-13 14:19:00 Test Item Value Reference Range Interpretation Comments Albumin Lvl (test code = Albumin Lvl) 3.5 3.5-5.0 [facility]2014-11-13 14:19:00 Test Item Value Reference Range Interpretation Comments eGFR (test code = eGFR) 127 [facility]2014-11-13 14:19:00 Test Item Value Reference Range Interpretation Comments AGAP (test code = AGAP) 13.9 10.0-20.0 [facility]2014-11-13 14:19:00 Test Item Value Reference Range Interpretation Comments Calcium Lvl (test code = Calcium Lvl) 7.9 8.5-10.5 [facility]2014-11-13 14:19:00 Test Item Value Reference Range Interpretation Comments CO2 (test code = CO2) 26 24-32 [place] 145694-11-13 14:19:00 Test Item Value Reference Range Interpretation Comments Bili Total (test code = Bili Total) 0.5 0.2-1.3 [facility]2014-11-13 14:19:00 Test Item Value Reference Range Interpretation Comments Alk Phos (test code = Alk Phos) 106 39-136 [facility]2014-11-13 14:19:00 Test Item Value Reference Range Interpretation Comments AST (test code = AST) 29 See_Comment [Auto mated message] The system which ge nerated this result transmit irma reference range : <=37. The reference range was not used to interpr et this result as gabi l/abnormal. [facility]2014-11-13 14:19:00 Test Item Value Reference Range Interpretation Comments ALT (test code = ALT) 33 See_Comment [Auto mated message] The system which ge nerated this result transmit irma reference range : <=65. The reference range was not used to interpr et this result as gabi l/abnormal. [place] 145694-11-13 14:19:00 Test Item Value Reference Range Interpretation Comments Total Protein (test code = Total 5.4 6.4-8.4 Protein) [facility]2014-11-13 14:19:00 Test Item Value Reference Range Interpretation Comments Glucose Lvl (test code = Glucose Lvl) 392 70-99 [facility]2014-11-13 14:19:00 Test Item Value Reference Range Interpretation Comments Creatinine Lvl (test code = Creatinine 0.6 0.5-1.4 Lvl) [facility]2014-11-13 14:19:00 Test Item Value Reference Range Interpretation Comments Chloride Lvl (test code = Chloride Lvl) 99 95-109 [facility]2014-11-13 14:19:00 Test Item Value Reference Range Interpretation Comments Potassium Lvl (test code = Potassium 3.9 3.5-5.1 Lvl) [facility]2014-11-13 14:19:00 Test Item Value Reference Range Interpretation Comments Sodium Lvl (test code = Sodium Lvl) 135 135-145 [facility]ComrfphKNEFMJYBWK5354-96-51 14:19:00 Test Item Value Reference Range Interpretation Comments Hgb (test code = Hgb) 12.6 12.0-16.0 [facility] AustinIxhcwioWIPPXJTIVB3799-49-63 14:19:00 Test Item Value Reference Range Interpretation Comments RBC (test code = RBC) 3.95 4.20-5.40 [facility] AustinBfqmphlOBVMKKXCWG9833-68-42 14:19:00 Test Item Value Reference Range Interpretation Comments WBC (test code = WBC) 7.5 3.7-10.4 [facility] AustinCjkeoaoIOQEETYPRY9014-71-35 14:19:00 Test Item Value Reference Range Interpretation Comments Hct (test code = Hct) 35.3 36.0-48.0 [facility] AustinLbajznfSINBWEEIUF5153-58-73 14:19:00 Test Item Value Reference Range Interpretation Comments RDW (test code = RDW) 14.5 11.5-14.5 [facility] AustinGfljytcOAZFIJAMFK5670-62-72 14:19:00 Test Item Value Reference Range Interpretation Comments Platelet (test code = Platelet) 246 133-450 [facility] AustinBykskefNOQIFDAHWS7865-07-65 14:19:00 Test Item Value Reference Range Interpretation Comments MPV (test code = MPV) 10.4 7.4-10.4 [facility] AustinFmqaebqLKFXNQPGEQ7858-68-43 14:19:00 Test Item Value Reference Range Interpretation Comments MCHC (test code = MCHC) 35.8 32.0-36.0 [facility] AustinEtojvikGGMVGSQRMI7350-10-36 14:19:00 Test Item Value Reference Range Interpretation Comments MCH (test code = MCH) 32.0 pg 27.0-31.0 [facility] AustinQrbldovZXXNEGIINA7568-93-01 14:19:00 Test Item Value Reference Range Interpretation Comments MCV (test code = MCV) 89.4 80.0-98.0 [facility] AustinBkokvfvGNSYCQFSFV2969-31-38 14:19:00 Test Item Value Reference Range Interpretation Comments Basophils # (test code 0.1 See_Comment [Aut omated message] The = Basophils #) system which generated this result tra nsmitted reference range : <=0.2. The reference r laxmi was not used to int erpret this result as normal/abnormal . [facility] AustinRlmrbgkKSTXEDPILW4785-62-62 14:19:00 Test Item Value Reference Range Interpretation Comments Eosinophils # (test code 0.1 See_Comment [A utomated message] The = Eosinophils #) system whic h generated this result tra nsmitted reference range : <=0.5. The reference r laxmi was not used to int erpret this result as normal/abnormal . [facility] AustinEemoxdvHQYOJJFYWH2586-00-91 14:19:00 Test Item Value Reference Range Interpretation Comments Monocytes (test code = Monocytes) 6.7 2.0-12.0 [facility] AustinMgwbamzTCNVGPPRKG9833-46-18 14:19:00 Test Item Value Reference Range Interpretation Comments Eosinophils (test code = 1.7 See_Comment [A utomated message] The Eosinophils) system which ge nerated this result tra nsmitted reference range : <=4.0. The reference r laxmi was not used to int erpret this result as normal/abnormal . [facility] AustinWwhvputERWAIOIYJF2931-37-15 14:19:00 Test Item Value Reference Range Interpretation Comments Segs (test code = Segs) 46.8 45.0-75.0 [facility] AustinPgoagryWAHDSCTHWN0464-60-87 14:19:00 Test Item Value Reference Range Interpretation Comments Lymphocytes (test code = Lymphocytes) 43.1 20.0-40.0 [facility] AustinKlfmualDYYGHXCCHD0292-94-95 14:19:00 Test Item Value Reference Range Interpretation Comments Segs-Bands # (test code = Segs-Bands #) 3.5 1.5-8.1 [facility] AustinUnhjwjmFFHNSYEIXL7128-03-94 14:19:00 Test Item Value Reference Range Interpretation Comments Lymphocytes # (test code = Lymphocytes 3.2 1.0-5.5 #) [facility] AustinEyqnpyyONUMPVGLKL4635-39-81 14:19:00 Test Item Value Reference Range Interpretation Comments Basophils (test code = 1.7 See_Comment [Aut omated message] The Basophils) system which ge nerated this result tra nsmitted reference range : <=1.0. The reference r laxmi was not used to int erpret this result as normal/abnormal . [facility] AustinNbpvjiuWZQQACZYUE9025-48-21 14:19:00 Test Item Value Reference Range Interpretation Comments Monocytes # (test code 0.5 See_Comment [Aut omated message] The = Monocytes #) system which generated this result tra nsmitted reference range : <=0.8. The reference r laxmi was not used to int erpret this result as normal/abnormal . [facility]2014-10-14 11:31:00 Test Item Value Reference Range Interpretation Comments eGFR (test code = eGFR) 103 [facility]2014-10-14 11:31:00 Test Item Value Reference Range Interpretation Comments Creatinine Lvl (test code = Creatinine 0.8 0.5-1.4 Lvl) [facility] AustinAsgdpzyRKNQBIJQSX7844-17-76 11:31:00 Test Item Value Reference Range Interpretation Comments PTT (test code = PTT) 24.9 s 22.9-35.8 [facility] AustinSvhsftcSONGSKWBIP2726-33-99 11:31:00 Test Item Value Reference Range Interpretation Comments Platelet (test code = Platelet) 255 133-450 [facility] AND [id number] 21:20:46 Test Item Value Reference Range Interpretation Comments UA Urobilinogen (test code = UA <=1.0 mg/dL 0.1-1.0 Urobilinogen) [facility] AND [id number] 21:20:46 Test Item Value Reference Range Interpretation Comments UA Color (test code = UA Color) Ltyellow [facility] AND [id number] 21:20:46 Test Item Value Reference Range Interpretation Comments UA Sq Epi (test code = UA Sq Epi) None Seen [facility] AND [id number] 21:20:46 Test Item Value Reference Range Interpretation Comments UA Mucus (test code = UA Mucus) Few /LPF [facility] AND [id number] 21:20:46 Test Item Value Reference Range Interpretation Comments UA Hyal Cast (test 2 See_Comment [Automat ed message] The code = UA Hyal Cast) system which generated this result transmit irma reference range : <=2. The reference range was not used to interpr et this result as gabi l/abnormal. [facility] [id number] 21:20:46 Test Item Value Reference Range Interpretation Comments UA RBC (test code = 2 See_Comment [Automa irma message] The UA RBC) system which ge nerated this result transmit irma reference range : <=2. The reference range was not used to interpr et this result as gabi l/abnormal. [facility] AND IQCRW2724-46-24 21:20:46 Test Item Value Reference Range Interpretation Comments UA Ketones (test code = UA Negative mg/dL Ketones) [facility] AND [id number] 21:20:46 Test Item Value Reference Range Interpretation Comments UA Blood (test code = Negative (02/03/14 4:20 UA Blood) PM) [facility] AND [id number] 21:20:46 Test Item Value Reference Range Interpretation Comments UA Bili (test code = Negative *NA*(02/03/14 UA Bili) 4:20 PM) [facility] AND [id number] 21:20:46 Test Item Value Reference Range Interpretation Comments UA WBC (test code = no gt See_Comment [Automa irma message] The UA WBC) system which ge nerated this result transmit irma reference range : <=5. The reference range was not used to interpr et this result as gabi l/abnormal. [facility] AND [id number] 21:20:46 Test Item Value Reference Range Interpretation Comments UA Nitrite (test code Negative (02/03/14 4:20 = UA Nitrite) PM) [facility] AND [id number] 21:20:46 Test Item Value Reference Range Interpretation Comments UA Leuk Est (test Negative (02/03/14 4:20 code = UA Leuk Est) PM) [facility] AND [id number] 21:20:46 Test Item Value Reference Range Interpretation Comments UA Spec Grav (test code = UA Spec Grav) 1.014 [facility] AND [id number] 21:20:46 Test Item Value Reference Range Interpretation Comments UA Turbidity (test code = Clear (02/03/14 4:20 UA Turbidity) PM) [facility] AND [id number] 21:20:46 Test Item Value Reference Range Interpretation Comments UA Glucose (test code = UA Glucose) 500 mg/dL [facility] AND [id number] 21:20:46 Test Item Value Reference Range Interpretation Comments UA Protein (test code = UA Negative mg/dL Protein) [facility] AND [id number] 21:20:46 Test Item Value Reference Range Interpretation Comments UA pH (test code = UA pH) 5.0 5.0-8.0 [facility]DofrfjrCYZKVSYWZF5196-46-27 20:25:18 Test Item Value Reference Range Interpretation Comments [facility] HIV 4th GEN (test Negative (02/03/14 3:25 code = CDC HIV 4th PM) GEN) [facility]lineCARDIAC SRVPUST1514-52-65 20:25:00 Test Item Value Reference Range Interpretation Comments Troponin-I (test code no gt See_Comment [Auto mated message] The = Troponin-I) system which g enerated this result transmit irma reference range : <=0.40. The reference r laxmi was not used to interpr et this result as gabi l/abnormal. [facility] BWPKY0266-47-53 20:25:00 Test Item Value Reference Range Interpretation Comments Lipase Lvl (test code = Lipase Lvl) 93 73-393 [facility] HospitalYjefmzxJLQNKEETGQNQ9258-88-56 20:25:00 Test Item Value Reference Range Interpretation Comments Chloride Lvl (test code = Chloride Lvl) 94 95-109 [facility] HospitalUtrnuqkHAERRSMMRQHP2930-28-76 20:25:00 Test Item Value Reference Range Interpretation Comments Calcium Lvl (test code = Calcium Lvl) 9.4 8.5-10.5 [facility] HospitalHkcojtlLYEOCWXYLNSR2719-14-29 20:25:00 Test Item Value Reference Range Interpretation Comments CO2 (test code = CO2) 28 24-32 [facility]ChdicvpVDEHVFSQIVVQ2822-76-02 20:25:00 Test Item Value Reference Range Interpretation Comments BUN (test code = BUN) 14 7-22 [facility] HospitalGdgkbicVWYQOODGOLPF1761-64-15 20:25:00 Test Item Value Reference Range Interpretation Comments Total Protein (test code = Total 8.0 6.4-8.4 Protein) [facility] HospitalJhiujejXYTFZCOPIUUN3738-20-01 20:25:00 Test Item Value Reference Range Interpretation Comments Creatinine Lvl (test code = Creatinine 0.9 0.5-1.4 Lvl) [facility] HospitalUqmvexzXLCWSENVRXIM3004-75-28 20:25:00 Test Item Value Reference Range Interpretation Comments Sodium Lvl (test code = Sodium Lvl) 132 135-145 [facility] HospitalFbbjoczWSRTMYWPWNYC1019-40-03 20:25:00 Test Item Value Reference Range Interpretation Comments Potassium Lvl (test code = Potassium 3.7 3.5-5.1 Lvl) [facility] HospitalWrlqxdkEGPDNNSKJPBJ4621-37-48 20:25:00 Test Item Value Reference Range Interpretation Comments Glucose Lvl (test code = Glucose Lvl) 336 70-99 [facility] HospitalEmykhrsIRXXPGQKZHVU7760-43-95 20:25:00 Test Item Value Reference Range Interpretation Comments Albumin Lvl (test code = Albumin Lvl) 4.4 3.5-5.0 [facility] HospitalMrfasrqTZJFFWIBJAQF4526-56-50 20:25:00 Test Item Value Reference Range Interpretation Comments Bili Total (test code = Bili Total) 0.5 0.2-1.3 [facility] HospitalPedtrzvFFXDUIGENKWK8582-08-88 20:25:00 Test Item Value Reference Range Interpretation Comments AST (test code = AST) 8 See_Comment [Auto mated message] The system which ge nerated this result transmit irma reference range : <=37. The reference range was not used to interpr et this result as gabi l/abnormal. [facility] HospitalOrpmzkoDATINLATTSXL3973-29-47 20:25:00 Test Item Value Reference Range Interpretation Comments Alk Phos (test code = Alk Phos) 97 39-136 [facility] HospitalDliumeeIOFBFNUZAMTE5801-19-15 20:25:00 Test Item Value Reference Range Interpretation Comments ALT (test code = ALT) 22 See_Comment [Auto mated message] The system which ge nerated this result transmit irma reference range : <=65. The reference range was not used to interpr et this result as gabi l/abnormal. [facility] HospitalUmlsbpaJNXLRKMTFSDX9118-62-43 20:25:00 Test Item Value Reference Range Interpretation Comments eGFR (test code = eGFR) 89 [facility] HospitalXrbzwumJNBEXJRMJVPC2426-81-38 20:25:00 Test Item Value Reference Range Interpretation Comments A/G Ratio (test code = A/G Ratio) 1.2 0.7-1.6 [facility] HospitalOddusiiPWELUQFSNNSW9364-41-40 20:25:00 Test Item Value Reference Range Interpretation Comments B/C Ratio (test code = B/C Ratio) 16 6-25 [facility] HospitalGvnjtfcTKSOPLFAPPRU9787-40-55 20:25:00 Test Item Value Reference Range Interpretation Comments Globulin (test code = Globulin) 3.6 2.0-4.0 [facility] HospitalAywyehoYMUZJMYEAPPS6201-40-36 20:25:00 Test Item Value Reference Range Interpretation Comments AGAP (test code = AGAP) 13.7 10.0-20.0 [facility] AustinYquqbhfBJSKVZUEIN8806-99-11 20:25:00 Test Item Value Reference Range Interpretation Comments Platelet (test code = Platelet) 281 133-450 [facility] AustinKpvtnyaRXWXQLIGQG2202-72-17 20:25:00 Test Item Value Reference Range Interpretation Comments MPV (test code = MPV) 10.2 7.4-10.4 [facility] AustinOjnepxsZUYYYZOMFJ5037-65-89 20:25:00 Test Item Value Reference Range Interpretation Comments RBC (test code = RBC) 4.55 4.20-5.40 [facility] AustinSvblpubQQWDVIQTKD0444-38-78 20:25:00 Test Item Value Reference Range Interpretation Comments RDW (test code = RDW) 13.6 11.5-14.5 [facility] AustinWtpgjgkUTZXGPCWKD0433-85-63 20:25:00 Test Item Value Reference Range Interpretation Comments Hct (test code = Hct) 40.2 36.0-48.0 [facility] AustinTyfvchtOHCBDGRCVN5554-45-65 20:25:00 Test Item Value Reference Range Interpretation Comments Hgb (test code = Hgb) 13.3 12.0-16.0 [facility] AustinMzzsidwEHPJGLJOGD5418-32-17 20:25:00 Test Item Value Reference Range Interpretation Comments MCV (test code = MCV) 88.3 80.0-98.0 [facility] AustinMpxqigiPGLETEVHWC9803-96-78 20:25:00 Test Item Value Reference Range Interpretation Comments MCH (test code = MCH) 29.3 pg 27.0-31.0 [facility] AustinHanlmkvDITCYQOEIK4533-33-79 20:25:00 Test Item Value Reference Range Interpretation Comments MCHC (test code = MCHC) 33.2 32.0-36.0 [facility] AustinUuqzxodOBNHLKCMJY6140-17-85 20:25:00 Test Item Value Reference Range Interpretation Comments WBC (test code = WBC) 10.6 3.7-10.4 [facility] AustinUjkwejyIFSZNIARYC9541-66-82 20:25:00 Test Item Value Reference Range Interpretation Comments Eosinophils # (test code 0.2 See_Comment [A utomated message] The = Eosinophils #) system whic h generated this result tra nsmitted reference range : <=0.5. The reference r laxmi was not used to int erpret this result as normal/abnormal . [facility] AustinMptmonnUQLRBTCSQS8124-48-74 20:25:00 Test Item Value Reference Range Interpretation Comments Lymphocytes # (test code = Lymphocytes 3.9 1.0-5.5 #) [facility] AustinSxnpireVXOVMWXLZD1197-35-11 20:25:00 Test Item Value Reference Range Interpretation Comments Basophils # (test code 0.1 See_Comment [Aut omated message] The = Basophils #) system which generated this result tra nsmitted reference range : <=0.2. The reference r laxmi was not used to int erpret this result as normal/abnormal . [facility] AustinDftvbxdXHPYLDXQSB9844-55-90 20:25:00 Test Item Value Reference Range Interpretation Comments Monocytes # (test code 0.5 See_Comment [Aut omated message] The = Monocytes #) system which generated this result tra nsmitted reference range : <=0.8. The reference r laxmi was not used to int erpret this result as normal/abnormal . [facility] AustinExulzuqDRTZOCDIFG4749-69-38 20:25:00 Test Item Value Reference Range Interpretation Comments Segs (test code = Segs) 55.5 45.0-75.0 [facility] AustinCmhlbopBYFVAHZQFH0398-03-97 20:25:00 Test Item Value Reference Range Interpretation Comments Monocytes (test code = Monocytes) 5.0 2.0-12.0 [facility] AustinNkhdbvwQBDXOUGBRL0706-45-26 20:25:00 Test Item Value Reference Range Interpretation Comments Lymphocytes (test code = Lymphocytes) 36.7 20.0-40.0 [facility] AustinFslgundOJKOPIHQOL2317-37-04 20:25:00 Test Item Value Reference Range Interpretation Comments Basophils (test code = 1.1 See_Comment [Aut omated message] The Basophils) system which ge nerated this result tra nsmitted reference range : <=1.0. The reference r laxmi was not used to int erpret this result as normal/abnormal . [facility] AustinAcowjycXFTPUTFWUK6934-01-22 20:25:00 Test Item Value Reference Range Interpretation Comments Segs-Bands # (test code = Segs-Bands #) 5.9 1.5-8.1 [facility] AustinAnofvphZDHNEKRDRY9670-70-14 20:25:00 Test Item Value Reference Range Interpretation Comments Eosinophils (test code = 1.7 See_Comment [A utomated message] The Eosinophils) system which ge nerated this result tra nsmitted reference range : <=4.0. The reference r laxmi was not used to int erpret this result as normal/abnormal . [facility]2014-08-09 08:00:00 Test Item Value Reference Range Interpretation Comments BUN (test code = BUN) 6 7-22 [facility]2014-08-09 08:00:00 Test Item Value Reference Range Interpretation Comments Sodium Lvl (test code = Sodium Lvl) 140 135-145 [facility]2014-08-09 08:00:00 Test Item Value Reference Range Interpretation Comments Potassium Lvl (test code = Potassium 3.8 3.5-5.1 Lvl) [facility]2014-08-09 08:00:00 Test Item Value Reference Range Interpretation Comments Chloride Lvl (test code = Chloride Lvl) 103 95-109 [facility]2014-08-09 08:00:00 Test Item Value Reference Range Interpretation Comments CO2 (test code = CO2) 29 24-32 [place] 145694-08-09 08:00:00 Test Item Value Reference Range Interpretation Comments Calcium Lvl (test code = Calcium Lvl) 8.9 8.5-10.5 [facility]2014-08-09 08:00:00 Test Item Value Reference Range Interpretation Comments eGFR (test code = eGFR) 121 [facility]2014-08-09 08:00:00 Test Item Value Reference Range Interpretation Comments AGAP (test code = AGAP) 11.8 10.0-20.0 [facility]2014-08-09 08:00:00 Test Item Value Reference Range Interpretation Comments Creatinine Lvl (test code = Creatinine 0.7 0.5-1.4 Lvl) [facility]2014-08-09 08:00:00 Test Item Value Reference Range Interpretation Comments Glucose Lvl (test code = Glucose Lvl) 169 70-99 [facility]2014-08-08 08:58:00 Test Item Value Reference Range Interpretation Comments BUN (test code = BUN) 7 7-22 [facility]2014-08-08 08:58:00 Test Item Value Reference Range Interpretation Comments eGFR (test code = eGFR) 103 [facility]2014-08-08 08:58:00 Test Item Value Reference Range Interpretation Comments AGAP (test code = AGAP) 14.0 10.0-20.0 [facility]2014-08-08 08:58:00 Test Item Value Reference Range Interpretation Comments Calcium Lvl (test code = Calcium Lvl) 8.6 8.5-10.5 [facility]2014-08-08 08:58:00 Test Item Value Reference Range Interpretation Comments Chloride Lvl (test code = Chloride Lvl) 102 95-109 [facility]2014-08-08 08:58:00 Test Item Value Reference Range Interpretation Comments CO2 (test code = CO2) 27 24-32 [facility]2014-08-08 08:58:00 Test Item Value Reference Range Interpretation Comments Potassium Lvl (test code = Potassium 4.0 3.5-5.1 Lvl) [facility]2014-08-08 08:58:00 Test Item Value Reference Range Interpretation Comments Sodium Lvl (test code = Sodium Lvl) 139 135-145 [facility]2014-08-08 08:58:00 Test Item Value Reference Range Interpretation Comments Creatinine Lvl (test code = Creatinine 0.8 0.5-1.4 Lvl) [facility]2014-08-08 08:58:00 Test Item Value Reference Range Interpretation Comments Glucose Lvl (test code = Glucose Lvl) 185 70-99 [facility]2014-08-07 09:24:00 Test Item Value Reference Range Interpretation Comments eGFR (test code = eGFR) 230 [facility]2014-08-07 09:24:00 Test Item Value Reference Range Interpretation Comments AGAP (test code = AGAP) 20.2 10.0-20.0 [facility]2014-08-07 09:24:00 Test Item Value Reference Range Interpretation Comments Calcium Lvl (test code = Calcium Lvl) 8.3 8.5-10.5 [facility]2014-08-07 09:24:00 Test Item Value Reference Range Interpretation Comments Sodium Lvl (test code = Sodium Lvl) 138 135-145 [place] [address]-08-07 09:24:00 Test Item Value Reference Range Interpretation Comments Potassium Lvl (test code = Potassium 4.2 3.5-5.1 Lvl) [facility]2014-08-07 09:24:00 Test Item Value Reference Range Interpretation Comments Chloride Lvl (test code = Chloride Lvl) 104 95-109 [facility]2014-08-07 09:24:00 Test Item Value Reference Range Interpretation Comments CO2 (test code = CO2) 18 24-32 [facility]2014-08-07 09:24:00 Test Item Value Reference Range Interpretation Comments BUN (test code = BUN) 8 7-22 [facility]2014-08-07 09:24:00 Test Item Value Reference Range Interpretation Comments Creatinine Lvl (test code = Creatinine 0.1 0.5-1.4 Lvl) [facility]2014-08-07 09:24:00 Test Item Value Reference Range Interpretation Comments Glucose Lvl (test code = Glucose Lvl) 262 70-99 [facility]VkmqimhHBRJDGCMFJ8345-68-55 09:24:00 Test Item Value Reference Range Interpretation Comments MPV (test code = MPV) 10.0 7.4-10.4 [place] 064154-08-07 09:24:00 Test Item Value Reference Range Interpretation Comments Hgb (test code = Hgb) 11.7 12.0-16.0 [facility] AustinNyxgyczSSYRKXYXAY4203-17-63 09:24:00 Test Item Value Reference Range Interpretation Comments Hct (test code = Hct) 34.2 36.0-48.0 [facility] AustinFpelkwtYNXHOKRZPG5031-48-80 09:24:00 Test Item Value Reference Range Interpretation Comments MCV (test code = MCV) 88.7 81.0-99.0 [facility] AustinGgjmeloSCZNSDHMNG3644-73-30 09:24:00 Test Item Value Reference Range Interpretation Comments Platelet (test code = Platelet) 248 133-450 [facility] AustinVvhlsyaYRNZASVWOM8553-40-76 09:24:00 Test Item Value Reference Range Interpretation Comments MCH (test code = MCH) 30.2 pg 27.0-31.0 [facility] AustinDmwmpxdFKKDVBTOAR1632-10-83 09:24:00 Test Item Value Reference Range Interpretation Comments MCHC (test code = MCHC) 34.0 32.0-36.0 [facility] AustinTczopqvMKRFSFPIFG6657-53-94 09:24:00 Test Item Value Reference Range Interpretation Comments RDW (test code = RDW) 12.4 11.5-14.5 [facility] AustinGzqghpeIZIUKQCTHR6352-18-86 09:24:00 Test Item Value Reference Range Interpretation Comments WBC (test code = WBC) 9.9 3.7-10.4 [facility] AustinVocysdyYCVOVBONOT9890-21-26 09:24:00 Test Item Value Reference Range Interpretation Comments RBC (test code = RBC) 3.86 4.20-5.40 [facility] AustinCkkyossLBDVSHEZMJ4253-94-11 09:24:00 Test Item Value Reference Range Interpretation Comments Basophils (test code = 0.7 See_Comment [Aut omated message] The Basophils) system which ge nerated this result tra nsmitted reference range : <=1.0. The reference r laxmi was not used to int erpret this result as normal/abnormal . [facility] AustinJdelguxKXCOGVIWSZ1756-35-16 09:24:00 Test Item Value Reference Range Interpretation Comments Segs-Bands # (test code = Segs-Bands #) 6.1 1.5-8.1 [facility] AustinLbnxcgtDQIHSSFEJH6702-95-57 09:24:00 Test Item Value Reference Range Interpretation Comments Lymphocytes # (test code = Lymphocytes 2.8 1.0-5.5 #) [facility] AustinBiaevobGQQLDGAKRM0591-91-01 09:24:00 Test Item Value Reference Range Interpretation Comments Monocytes # (test code 0.7 See_Comment [Aut omated message] The = Monocytes #) system which generated this result tra nsmitted reference range : <=0.8. The reference r laxmi was not used to int erpret this result as normal/abnormal . [facility] AustinNzjlmbiOMYCUYAYQU8575-41-76 09:24:00 Test Item Value Reference Range Interpretation Comments Eosinophils # (test code 0.2 See_Comment [A utomated message] The = Eosinophils #) system whic h generated this result tra nsmitted reference range : <=0.5. The reference r laxmi was not used to int erpret this result as normal/abnormal . [facility] AustinTwskrlmAJBTKGHNOB9936-25-74 09:24:00 Test Item Value Reference Range Interpretation Comments Basophils # (test code 0.1 See_Comment [Aut omated message] The = Basophils #) system which generated this result tra nsmitted reference range : <=0.2. The reference r laxmi was not used to int erpret this result as normal/abnormal . [facility] AustinKzurygeDPVZALZEKY6166-03-98 09:24:00 Test Item Value Reference Range Interpretation Comments Monocytes (test code = Monocytes) 6.7 2.0-12.0 [facility] AustinQjgedguIUQPYLXUZJ9523-32-66 09:24:00 Test Item Value Reference Range Interpretation Comments Eosinophils (test code = 2.5 See_Comment [A utomated message] The Eosinophils) system which ge nerated this result tra nsmitted reference range : <=4.0. The reference r laxmi was not used to int erpret this result as normal/abnormal . [facility] AustinBixnbjkUUQWNYKZHM7180-21-82 09:24:00 Test Item Value Reference Range Interpretation Comments Lymphocytes (test code = Lymphocytes) 28.6 20.0-40.0 [facility]mWSDLIPVOJI6984-72-93 09:24:00 Test Item Value Reference Range Interpretation Comments Segs (test code = Segs) 61.5 45.0-75.0 [facility]AirPOS KOPYFMN0310-72-94 19:24:00 Test Item Value Reference Range Interpretation Comments ABO/Rh (test code = ABO/Rh) O POS [facility] SingWho BVZOJVM3680-16-67 19:24:00 Test Item Value Reference Range Interpretation Comments Antibody Scrn (test Negative (11/27/13 2:24 code = Antibody Scrn) PM) [facility] NERZKYT8351-95-64 17:17:00 Test Item Value Reference Range Interpretation Comments Platelet product (test Product available code = Platelet 1(11/27/13 12:17 PM) product) [facility] HospitalSMS THL HoldingsCARHyper9AC KNHOTAG3306-22-62 09:17:00 Test Item Value Reference Range Interpretation Comments CK MB Index (test no gt See_Comment [Automate d message] The code = CK MB Index) system w [facility] generated this result transmit irma reference range : <=2.5. The reference range was not used to interpr et this result as gabi l/abnormal. [facility] HospitalatVenu JCTYHAR9543-13-33 09:17:00 Test Item Value Reference Range Interpretation Comments Troponin-I (test code no gt See_Comment [Auto mated message] The = Troponin-I) system which g enerated this result transmit irma reference range : <=0.40. The reference r laxmi was not used to interpr et this result as gabi l/abnormal. [facility] HospitalSMS THL HoldingsCARHyper9AC ENSNHXR5652-91-19 09:17:00 Test Item Value Reference Range Interpretation Comments CK MB (test code = CK MB) no gt 0.5-3.6 [facility] HospitalStitchAC DYCLYOV7066-11-88 09:17:00 Test Item Value Reference Range Interpretation Comments Total CK (test code = Total CK) 132 12-191 [facility] HospitalNsummtvCXHEYH4950-13-01 09:17:00 Test Item Value Reference Range Interpretation Comments LDL Direct (test code = LDL Direct) 91 [facility]lineSPECIAL RVZXNOQJE7834-17-85 09:17:00 Test Item Value Reference Range Interpretation Comments Hgb A1C (test code = Hgb A1C) 11.4 [facility] HospitalSMS THL HoldingsCARHyper9AC XRFSTOB0311-21-25 04:56:00 Test Item Value Reference Range Interpretation Comments Troponin-I (test code no gt See_Comment [Auto mated message] The = Troponin-I) system which g enerated this result transmit irma reference range : <=0.40. The reference r laxmi was not used to interpr et this result as gabi l/abnormal. [facility] HospitalStitchAC AKFTYEU9124-57-94 04:56:00 Test Item Value Reference Range Interpretation Comments CK MB (test code = CK MB) 0.6 0.5-3.6 [facility] [place] AannCARDIAC JNXADNB4347-52-00 04:56:00 Test Item Value Reference Range Interpretation Comments Total CK (test code = Total CK) 145 12-191 [facility] [place] AannCARHyper9AC RYQLIOS7187-95-93 04:56:00 Test Item Value Reference Range Interpretation Comments CK MB Index (test 0.4 See_Comment [Automate d message] The code = CK MB Index) system w [employer] generated this result transmit irma reference range : <=2.5. The reference range was not used to interpr et this result as gabi l/abnormal. [facility] CovacsisCARHyper9AC HYFLGBJ9073-10-35 21:08:00 Test Item Value Reference Range Interpretation Comments Total CK (test code = Total CK) 164 12-191 [facility] Mobile Shareholder ZFJOIWY1024-56-36 21:08:00 Test Item Value Reference Range Interpretation Comments Troponin-I (test code no gt See_Comment [Auto mated message] The = Troponin-I) system which g enerated this result transmit irma reference range : <=0.40. The reference r laxmi was not used to interpr et this result as gabi l/abnormal. docTrackrAC CIWPMPF1768-44-86 21:08:00 Test Item Value Reference Range Interpretation Comments CK MB (test code = CK MB) no gt 0.5-3.6 [facility] Sociable LabsAC NACHJWE7054-02-52 21:08:00 Test Item Value Reference Range Interpretation Comments CK MB Index (test no gt See_Comment [Automate d message] The code = CK MB Index) system w [employer] generated this result transmit irma reference range : <=2.5. The reference range was not used to interpr et this result as gabi l/abnormal. SolexelHkuqpykEJBFJP7801-39-52 15:48:39 Test Item Value Reference Range Interpretation Comments VLDL (test code = See Note 9*NA*(11/26/13 VLDL) 10:48 AM) [facility] RxwrssbMSUVQD0285-49-10 15:48:39 Test Item Value Reference Range Interpretation Comments CHD Risk (test code = CHD Risk) 8.20 3.90-5.80 [facility] BaqrllzPNYFCN0845-93-08 15:48:39 Test Item Value Reference Range Interpretation Comments HDL (test code = HDL) 25 [facility] CenterChsexvoQIMJCZ3682-89-53 15:48:39 Test Item Value Reference Range Interpretation Comments Trig (test code = Trig) 772 [facility] CenterOqdsewxTICYJW7658-47-45 15:48:39 Test Item Value Reference Range Interpretation Comments Chol (test code = Chol) 205 [facility] CenterShlepgwPKCAUF1293-90-38 15:48:39 Test Item Value Reference Range Interpretation Comments LDL (Calculated) (test code = See Note mg/dL LDL (Calculated)) [facility]2014-08-05 15:48:00 Test Item Value Reference Range Interpretation Comments AST (test code = AST) 24 See_Comment [Auto mated message] The system which ge nerated this result transmit irma reference range : <=37. The reference range was not used to interpr et this result as gabi l/abnormal. [facility]2014-08-05 15:48:00 Test Item Value Reference Range Interpretation Comments Bili Total (test code = Bili Total) 0.4 0.2-1.3 [facility]2014-08-05 15:48:00 Test Item Value Reference Range Interpretation Comments Alk Phos (test code = Alk Phos) 111 39-136 [facility]2014-08-05 15:48:00 Test Item Value Reference Range Interpretation Comments ALT (test code = ALT) 35 See_Comment [Auto mated message] The system which ge nerated this result transmit irma reference range : <=65. The reference range was not used to interpr et this result as gabi l/abnormal. [facility] HospitalVocent UFOIF8960-81-27 15:48:00 Test Item Value Reference Range Interpretation Comments Albumin Lvl (test code = Albumin Lvl) 3.8 3.5-5.0 [facility] HospitalVocent JCAAG3752-84-52 15:48:00 Test Item Value Reference Range Interpretation Comments Total Protein (test code = Total 7.6 6.4-8.4 Protein) [facility]2014-08-05 15:48:00 Test Item Value Reference Range Interpretation Comments Globulin (test code = Globulin) 3.8 2.0-4.0 [facility] HospitalVocent MLUBI2918-81-76 15:48:00 Test Item Value Reference Range Interpretation Comments A/G Ratio (test code = A/G Ratio) 1.0 0.7-1.6 [facility]2014-08-05 15:48:00 Test Item Value Reference Range Interpretation Comments B/C Ratio (test code = B/C Ratio) 10 6-25 [facility] AustinZqcyxunDZMLJSEXQR5171-79-81 15:48:00 Test Item Value Reference Range Interpretation Comments INR (test code = INR) 0.94 0.85-1.17 [facility] AustinPtnsjlhYKFCFBEVNI1847-38-31 15:48:00 Test Item Value Reference Range Interpretation Comments PT (test code = PT) 12.5 s 12.0-14.7 [facility] AustinFianusgKTAHGCMQAP4939-12-30 15:48:00 Test Item Value Reference Range Interpretation Comments PTT (test code = PTT) 26.5 s 22.9-35.8 [facility] AustinUujzoivCXJDJAVLRO1766-99-13 15:48:00 Test Item Value Reference Range Interpretation Comments MCHC (test code = MCHC) 34.4 32.0-36.0 [facility] AustinHverxmzTZOQTVMRUF1173-81-80 15:48:00 Test Item Value Reference Range Interpretation Comments RDW (test code = RDW) 12.5 11.5-14.5 [facility] AustinRcmilvjLSUQYXOQWZ1048-35-61 15:48:00 Test Item Value Reference Range Interpretation Comments Platelet (test code = Platelet) 275 133-450 [facility] AustinMmniulcPGSMTITPZZ4834-19-74 15:48:00 Test Item Value Reference Range Interpretation Comments MPV (test code = MPV) 9.6 7.4-10.4 [facility] AustinBithebbIPQDFNGNAT0306-22-65 15:48:00 Test Item Value Reference Range Interpretation Comments RBC (test code = RBC) 4.15 4.20-5.40 [facility] AustinDelcbbzMBTZOBQEPA2288-43-26 15:48:00 Test Item Value Reference Range Interpretation Comments Hgb (test code = Hgb) 12.6 12.0-16.0 [facility] AustinFojjrzvVJFEPQBATK7088-70-42 15:48:00 Test Item Value Reference Range Interpretation Comments Hct (test code = Hct) 36.5 36.0-48.0 [facility] AustinFrceufsJMQHWEWKDK0855-82-33 15:48:00 Test Item Value Reference Range Interpretation Comments MCV (test code = MCV) 87.9 81.0-99.0 [facility] AustinGfdilpgLWJPMNSZLN0842-81-64 15:48:00 Test Item Value Reference Range Interpretation Comments MCH (test code = MCH) 30.3 pg 27.0-31.0 [facility] AustinQramosuNLPBAUEFOB0750-93-66 15:48:00 Test Item Value Reference Range Interpretation Comments WBC (test code = WBC) 7.3 3.7-10.4 [facility] AustinToxaclpZEGQGYPCKA9792-68-12 15:48:00 Test Item Value Reference Range Interpretation Comments Basophils # (test code 0.1 See_Comment [Aut omated message] The = Basophils #) system which generated this result tra nsmitted reference range : <=0.2. The reference r laxmi was not used to int erpret this result as normal/abnormal . [facility] AustinMkqhmfbYFBMDNAPLF5390-43-56 15:48:00 Test Item Value Reference Range Interpretation Comments Segs-Bands # (test code = Segs-Bands #) 4.0 1.5-8.1 [facility] AustinNomgmfwCENZSGGHSV8286-88-63 15:48:00 Test Item Value Reference Range Interpretation Comments Lymphocytes # (test code = Lymphocytes 2.6 1.0-5.5 #) [facility] AustinMomqhgzSTSSGFHUTK0251-14-42 15:48:00 Test Item Value Reference Range Interpretation Comments Monocytes # (test code 0.5 See_Comment [Aut omated message] The = Monocytes #) system which generated this result tra nsmitted reference range : <=0.8. The reference r laxmi was not used to int erpret this result as normal/abnormal . [facility] AustinOrjroclTNLJULZNMJ5806-89-64 15:48:00 Test Item Value Reference Range Interpretation Comments Eosinophils # (test code 0.2 See_Comment [A utomated message] The = Eosinophils #) system whic h generated this result tra nsmitted reference range : <=0.5. The reference r laxmi was not used to int erpret this result as normal/abnormal . [facility] AustinQepmpvyNMWXMGIAWA7033-73-34 15:48:00 Test Item Value Reference Range Interpretation Comments Basophils (test code = 1.2 See_Comment [Aut omated message] The Basophils) system which ge nerated this result tra nsmitted reference range : <=1.0. The reference r laxmi was not used to int erpret this result as normal/abnormal . [facility] AustinYjfyhptYXPDTJXDHT2142-57-92 15:48:00 Test Item Value Reference Range Interpretation Comments Segs (test code = Segs) 54.5 45.0-75.0 [facility] AustinKxypwwiNQBCLNBUAZ4547-05-97 15:48:00 Test Item Value Reference Range Interpretation Comments Lymphocytes (test code = Lymphocytes) 35.3 20.0-40.0 [facility] AustinTvoiojlQWASZOENVK4452-92-82 15:48:00 Test Item Value Reference Range Interpretation Comments Monocytes (test code = Monocytes) 6.6 2.0-12.0 [facility] AustinLsxhvgqKCRFGDKKQL8131-13-17 15:48:00 Test Item Value Reference Range Interpretation Comments Eosinophils (test code = 2.4 See_Comment [A utomated message] The Eosinophils) system which ge nerated this result tra nsmitted reference range : <=4.0. The reference r laxmi was not used to int erpret this result as normal/abnormal . [facility]EyvzkiwNgsevsdyvrgm3011-92-28 01:00:00 Test Item Value Reference Range Interpretation Comments Culture: Blood (test code = Culture: Blood) [facility] AliceKipttdjNDSBNREBX2559-49-83 00:35:00 Test Item Value Reference Range Interpretation Comments eGFR (test code = eGFR) 104 [facility] AliceEedsuomUOMTPWWYA9978-08-00 00:35:00 Test Item Value Reference Range Interpretation Comments AST (test code = AST) 43 See_Comment H [Auto mated message] The system which ge nerated this result transmit irma reference range : <=37. The reference range was not used to interpr et this result as gabi l/abnormal. [facility] AliceZxsohzgLHSRMKTUH7094-72-95 00:35:00 Test Item Value Reference Range Interpretation Comments Bili Total (test code = Bili Total) no gt 0.2-1.3 L [facility] AliceEeuuzunRZTPIGFWN7309-17-50 00:35:00 Test Item Value Reference Range Interpretation Comments Alk Phos (test code = Alk Phos) 70 39-136 N [facility] AliceInlayioRZJBBLOOU1037-45-78 00:35:00 Test Item Value Reference Range Interpretation Comments ALT (test code = ALT) 41 See_Comment N [Auto mated message] The system which ge nerated this result transmit irma reference range : <=65. The reference range was not used to interpr et this result as gabi l/abnormal. [facility] AliceXafqgblZCNMRHRVN6242-42-89 00:35:00 Test Item Value Reference Range Interpretation Comments Albumin Lvl (test code = Albumin Lvl) 3.7 3.5-5.0 N [facility] AliceGszwuvxUAPATOQCS3048-06-54 00:35:00 Test Item Value Reference Range Interpretation Comments CO2 (test code = CO2) 25 24-32 N [facility] AliceRirifupTONVBHJXW2554-70-63 00:35:00 Test Item Value Reference Range Interpretation Comments Total Protein (test code = Total 7.4 6.4-8.4 N Protein) [facility] AliceUyqntksJIZMYIMVX8875-05-77 00:35:00 Test Item Value Reference Range Interpretation Comments Calcium Lvl (test code = Calcium Lvl) 8.4 8.5-10.5 L [facility] AliceLqoqdwrILIGNFCTN0462-66-99 00:35:00 Test Item Value Reference Range Interpretation Comments Creatinine Lvl (test code = Creatinine 0.8 0.5-1.4 N Lvl) [facility] AliceWuocujvLHFIRYUUU3049-69-43 00:35:00 Test Item Value Reference Range Interpretation Comments BUN (test code = BUN) 7 7-22 N [facility] AliceVselwxjFBWEOJSRK9044-81-69 00:35:00 Test Item Value Reference Range Interpretation Comments Glucose Lvl (test code = Glucose Lvl) 209 70-99 H [facility] AliceYsgtrroKGQIHPXDA6896-95-25 00:35:00 Test Item Value Reference Range Interpretation Comments Sodium Lvl (test code = Sodium Lvl) 141 135-145 N [facility] AliceKdkhvkdAWBIWDQUT5237-24-36 00:35:00 Test Item Value Reference Range Interpretation Comments Potassium Lvl (test code = Potassium 3.9 3.5-5.1 N Lvl) [facility] AliceOwyssrzCHBQQSJBR1521-93-58 00:35:00 Test Item Value Reference Range Interpretation Comments Chloride Lvl (test code = Chloride Lvl) 107 95-109 N [facility] AliceYzwgdadPNUOABKMD4809-52-46 00:35:00 Test Item Value Reference Range Interpretation Comments B/C Ratio (test code = B/C Ratio) 9 6-25 N [facility] AliceSnsfbwqAHRXBXUKQ8105-87-12 00:35:00 Test Item Value Reference Range Interpretation Comments AGAP (test code = AGAP) 12.9 10.0-20.0 N [facility] AliceQalxfyeSVMHNQGFY2435-90-13 00:35:00 Test Item Value Reference Range Interpretation Comments A/G Ratio (test code = A/G Ratio) 1.0 0.7-1.6 N [facility] AliceFolrvclQHFEGEHNL7202-03-65 00:35:00 Test Item Value Reference Range Interpretation Comments Globulin (test code = Globulin) 3.7 2.0-4.0 N [facility] AustinHjatcqiGEZRUFRGAC4371-97-67 00:35:00 Test Item Value Reference Range Interpretation Comments PT (test code = PT) 12.5 s 12.0-14.7 N [facility] AustinOlrlnffRMJIICJANY4603-25-22 00:35:00 Test Item Value Reference Range Interpretation Comments PTT (test code = PTT) 25.8 s 22.9-35.8 N [facility] AustinUrrauccYTECJIJDUQ5835-48-81 00:35:00 Test Item Value Reference Range Interpretation Comments INR (test code = INR) 0.91 0.85-1.17 N [facility] AustinZprdfflDZJAVIPVLK6992-99-22 00:35:00 Test Item Value Reference Range Interpretation Comments Platelet (test code = Platelet) 244 133-450 N [facility] AustinOokoytaNGEJOVVQTM2382-01-55 00:35:00 Test Item Value Reference Range Interpretation Comments RDW (test code = RDW) 13.2 11.5-14.5 N [facility] AustinPpmkinuQDQWDUSWSQ0092-18-34 00:35:00 Test Item Value Reference Range Interpretation Comments MPV (test code = MPV) 10.1 7.4-10.4 N [facility] AustinYepyfxlIVJBZUGYAO6595-36-13 00:35:00 Test Item Value Reference Range Interpretation Comments MCHC (test code = MCHC) 32.5 32.0-36.0 N [facility] AustinNrsnrubHHAXOOBXTD5058-49-34 00:35:00 Test Item Value Reference Range Interpretation Comments MCV (test code = MCV) 93.4 81.0-99.0 N [facility] AustinEsjdlnhYDWTNZXTCV6476-63-54 00:35:00 Test Item Value Reference Range Interpretation Comments MCH (test code = MCH) 30.4 pg 27.0-31.0 N [facility] AustinCayqnyuWOKNNENANX0924-73-00 00:35:00 Test Item Value Reference Range Interpretation Comments WBC (test code = WBC) 9.8 3.7-10.4 N [facility] AustinHpxemjoCLBXMLOIHB5441-50-33 00:35:00 Test Item Value Reference Range Interpretation Comments RBC (test code = RBC) 3.90 4.20-5.40 L [facility] AustinHcsvwxxRLWNBCQLBP2296-39-48 00:35:00 Test Item Value Reference Range Interpretation Comments Hct (test code = Hct) 36.4 36.0-48.0 N [facility] AustinIzxeyseRJNMGYTMVD3546-86-25 00:35:00 Test Item Value Reference Range Interpretation Comments Hgb (test code = Hgb) 11.8 12.0-16.0 L [facility] AustinMsqnvanYOCICWUGWC7375-72-29 00:35:00 Test Item Value Reference Range Interpretation Comments Basophils # (test code 0.1 See_Comment N [Aut omated message] The = Basophils #) system which generated this result tra nsmitted reference range : <=0.2. The reference r laxmi was not used to int erpret this result as normal/abnormal . [facility] AustinVycbqgfJSOVZTKLFN2587-77-92 00:35:00 Test Item Value Reference Range Interpretation Comments Eosinophils # (test code 0.2 See_Comment N [A utomated message] The = Eosinophils #) system whic h generated this result tra nsmitted reference range : <=0.5. The reference r laxmi was not used to int erpret this result as normal/abnormal . [facility] AustinPmdtzklWCXDRSXQJS0020-42-19 00:35:00 Test Item Value Reference Range Interpretation Comments Monocytes # (test code 0.6 See_Comment N [Aut omated message] The = Monocytes #) system which generated this result tra nsmitted reference range : <=0.8. The reference r laxmi was not used to int erpret this result as normal/abnormal . [facility] AustinSriuiujFUMKQGSTUM6498-29-38 00:35:00 Test Item Value Reference Range Interpretation Comments Basophils (test code = 1.1 See_Comment H [Aut omated message] The Basophils) system which ge nerated this result tra nsmitted reference range : <=1.0. The reference r laxmi was not used to int erpret this result as normal/abnormal . [facility] AustinHphtfuwKQLIDBRCVN0481-99-35 00:35:00 Test Item Value Reference Range Interpretation Comments Segs-Bands # (test code = Segs-Bands #) 5.5 1.5-8.1 N [facility] [id number] 00:35:00 Test Item Value Reference Range Interpretation Comments Lymphocytes # (test code = Lymphocytes 3.4 1.0-5.5 N #) [id number] 00:35:00 Test Item Value Reference Range Interpretation Comments Monocytes (test code = Monocytes) 5.8 2.0-12.0 N [facility] [id number] 00:35:00 Test Item Value Reference Range Interpretation Comments Eosinophils (test code = 2.4 See_Comment N [A utomated message] The Eosinophils) system which ge nerated this result tra nsmitted reference range : <=4.0. The reference r laxmi was not used to int erpret this result as normal/abnormal . [facility] [id number] 00:35:00 Test Item Value Reference Range Interpretation Comments Segs (test code = Segs) 56.3 45.0-75.0 N [facility] [id number] 00:35:00 Test Item Value Reference Range Interpretation Comments Lymphocytes (test code = Lymphocytes) 34.4 20.0-40.0 N [facility]
--- NOTE | 2021-08-31 16:48 | RAD REPORT ---
EXAM DESCRIPTION: CT - Head Brain Wo Cont - 08/31/2021 4:41 pm CLINICAL HISTORY: Neuro deficit, acute, stroke suspected Headache, drowsiness COMPARISON: Head angio dated 12/17/2018; Ct Stroke Brain Wo Cont dated 12/17/2018 TECHNIQUE: All CT scans are performed using dose optimization technique as appropriate and may inclu de automated exposure control or mA/KV adjustment according to patient size. FINDINGS: No intracranial hemorrhage, hydrocephalus or extra-axial fluid collection.Mild periventric ular chronic microvascular ischemia.No areas of brain edema or evidence of midline shift. The paranasal sinuses and mastoids are clear. The calvarium is intact. IMPRESSION: No acute intracranial abnormality. If there is continued clinical concern for CVA, MR imaging of the brain would be recommended.
[2021-08-31 16:54] LABS: Absolute Lymphocytes (CBC) 2.3 K/uL (0.7-4.9); Hematocrit 33.4 % (36.0-45.0); Lymphocytes % 23.8 % (15.3-44.8); MPV 9.5 fL (7.6-11.3); RBC Red Blood Cell Count 3.71 M/uL (3.86-4.86)
[2021-08-31 17:09] LABS: Protime INR 0.97
[2021-08-31 17:12] LABS: ALT/SGPT 19 U/L (12-78); AST/SGOT 10 U/L (15-37); Albumin 3.3 g/dL (3.4-5.0); Alkaline Phosphatase 79 U/L (45-117); BUN Blood Urea Nitrogen 24 mg/dL (7-18); Bicarbonate 27 mmol/L (21-32); Bilirubin Total 0.3 mg/dL (0.2-1.0); Glomerular Filtration Rate 59 ml/min (=/>90); Glucose Level 253 mg/dL (74-106); Magnesium 2.2 mg/dL (1.8-2.4); NT PRO-BNP 107 pg/mL (<125); Potassium 4.6 mmol/L (3.5-5.1); Protein, Total 7.6 g/dL (6.4-8.2); Sodium Level 138 mmol/L (136-145); Troponin High Sensitivity 11.7 pg/mL (<58.9)
[2021-08-31 17:13] LABS: Bilirubin Direct < 0.1 mg/dL (0-0.2)
[2021-08-31] MEDS ORDERED: ONDANSETRON 4 MG/2 ML VIAL IV PRN (17:40)
--- NOTE | 2021-08-31 17:41 | ER ---
Nurse's Notes [facility] Name: Romy Cortes Age: 51 yrs Sex: Female : 1970 Arrival Date: 08/31/2021 Time: 16:15 Bed 3 Private MD: Diagnosis: Cerebral infarction, unspecified;Chest pain, unspecified Presentation: 08/31 16:15 Chief complaint: EMS states: "pt reported that around 0700 this morning the pt reported jd3 that she was having double vision, dizziness, and some slurred speech. the pt is at [facility] for rehab regarding a previous stroke she had about a month ago. the pt reported this was a similar sensation to that of when she had her previous stroke about a month ago. she is on Plavix since that last stroke.". Coronavirus screen: At this time, the client does not indicate any symptoms associated with coronavirus-19. Ebola Screen: No symptoms or risks identified at this time. No acute neurological deficit is noted. The patients blood glucose was checked prior to arriving to the hospital and was found to be hyperglycemic. The charge nurse has been notified. Initial Sepsis Screen: Does the patient meet any 2 criteria? No. Patient's initial sepsis screen is negative. Does the patient have a suspected source of infection? No. Patient's initial sepsis screen is negative. Risk Assessment: Do you want to hurt yourself or someone else? Patient reports no desire to harm self or others. Onset of symptoms was August 31, 2021 at 07:00. 16:15 Acuity: WYATT 3 jd3 16:15 Method Of Arrival: EMS: [facility] jd3 09/01 01:12 Note Sheri Mar pt's mother phone number [phone]. bb Triage Assessment: 08/31 16:24 The onset of the patients symptoms was August 31, 2021 at 07:00. Neuro: Reports diplopia, jd3 dizziness, slurred speech that started at 0700. LABORER GOLF COURSE: 16:20 LMP N/A - Irregular menses jd3 Stroke Activation: Symptom onset > 6 hours Physician: Stroke Attending; Name: ; Notified At: ; Arrived At: Physician: Chief Stroke Resident; Name: ; Notified At: ; Arrived At: Physician: Stroke Resident; Name: ; Notified At: ; Arrived At: Physician: ED Attending; Name: Ezequiel; Notified At: 16:15; Arrived At: 16:15 Physician: ED Resident; Name: ; Notified At: ; Arrived At: Historical: - Allergies: 16:19 amlodipine; jd3 - Home Meds: 16:19 Plavix 75 mg Oral tab 1 tab once daily [Active]; jd3 - PMHx: 16:19 Diabetes - IDDM; Hypertension; Hyperlipidemia; link recorder; cardiac stent x2; CAD; jd3 - Immunization history:: Adult Immunizations up to date. - Social history:: Smoking status: unknown. Screenin:23 Abuse screen: Denies threats or abuse. Nutritional screening: No deficits noted. jd3 Tuberculosis screening: No symptoms or risk factors identified. Fall Risk Ambulatory Aid- None/Bed Rest/Nurse Assist (0 pts). Gait- Normal/Bed Rest/Wheelchair (0 pts) Mental Status- Oriented to own ability (0 pts). Total Harrell Fall Scale indicates No Risk (0-24 pts). Assessment: 16:15 Reassessment: pt with history of CVA affecting the right side. jd3 16:20 General: Appears in no apparent distress. comfortable, Behavior is calm, cooperative, jd3 appropriate for age. Pain: Denies pain. Neuro: Antoine Agitation-Sedation Scale (RASS): -1 Drowsy Level of Consciousness is awake, alert, obeys commands, Oriented to person, place, time, situation. Cardiovascular: Capillary refill < 3 seconds Patient's skin is warm and dry. Rhythm is regular. Respiratory: Airway is patent Respiratory effort is even, unlabored, Respiratory pattern is regular, symmetrical, Denies cough, shortness of breath. GI: No signs and/or symptoms were reported involving the gastrointestinal system. : No signs and/or symptoms were reported regarding the genitourinary system. EENT: No signs and/or symptoms were reported regarding the EENT system. Derm: Skin is intact, Skin is dry, Skin is normal, Skin temperature is warm. Musculoskeletal: Circulation, motion, and sensation intact. Range of motion: intact in all extremities. 16:22 VAN Scoring: Arm Drift: Minor drift Visual Disturbance: No visual disturbance noted. jd3 Aphasia: No aphasia noted. Neglect: No neglect noted. Patient has been NPO before screening. The patient is alert, and able to follow commands. The patient exhibits slurred or garbled speech. Provider notified of the indication for Speech Therapy consult. The patient is not exhibiting difficulty speaking. The patient does not exhibit difficulty understanding words. The patient is able to swallow own secretions with no drooling or need for suction. Patient tolerated one teaspoon of water. No drooling, immediate coughing, gurgling, or clearing of the throat was noted. The patient tolerated 90mL of water. No drooling, immediate coughing, gurgling, or clearing of the throat was noted. The patient passed the bedside swallow screening. Oral medications may be given as ordered. Contact Physician for further diet orders. Provider notified of bedside swallow screening results: Mauricio BLACKWOOD. T-PA (Activase) Screening: Contraindications: Patient reports onset of signs and symptoms of stroke greater than 6 hours ago:. 17:20 Reassessment: Patient appears in no apparent distress at this time. No changes from [facility] previously documented assessment. Patient and/or family updated on plan of care and expected duration. Pain level reassessed. Patient is alert, oriented x 3, equal unlabored respirations, skin warm/dry/pink. 18:20 Reassessment: Patient appears in no apparent distress at this time. No changes from j previously documented assessment. Patient and/or family updated on plan of care and expected duration. Pain level reassessed. Patient is alert, oriented x 3, equal unlabored respirations, skin warm/dry/pink. Vital Signs: 16:20 BP 118 / 78; Pulse 71; Resp 18 S; Temp 97.3(TE); Pulse Ox 99% on R/A; Weight 90.72 kg jd3 (R); Height 5 ft. 8 in. (172.72 cm) (R); Pain 0/10; 18:50 BP 115 / 75; Pulse 75; Resp 16 S; Pulse Ox 99% on R/A; jd3 16:20 Body Mass Index 30.41 (90.72 kg, 172.72 cm) j NIH Stroke Scale Scores: 16:15 NIHSS Score: 6 jd3 16:30 NIHSS Score: 5 [facility] ED Course: 16:15 Patient arrived in ED. 16:15 Thierry Plascencia RN is Primary Nurse. jd3 16:19 Triage completed. jd3 16:19 Arm band placed on Patient placed in an exam room, on a stretcher. ll1 16:20 [facility] Crawford [facility] 16:20 Kulwant Nieves MD is Attending Physician. m 16:24 Patient has correct armband on for positive identification. Bed in low position. Call jd3 light in reach. Side rails up X2. Client placed on continuous cardiac and pulse oximetry monitoring. NIBP monitoring applied. monitoring and evaluation advisor on. Pulse ox on. NIBP on. 16:43 CT Head Brain wo Cont In Process Unspecified. EDMS 16:46 Accessed peripheral vein via ultrasound, utilizing dynamic ultrasound technique using jd3 20G Nexia IV catheter ,sterile technique, per hospital protocol. Clean \\T\\ dry. Dressing intact. Good blood return. Flushes easily. 20 G to the left AC. 17:40 Shakir Valenzuela MD is Hospitalizing Provider. [facility] 17:47 XRAY Chest (1 view) In Process Unspecified. EDMS 22:49 Straight cath inserted, using sterile technique, 16 Fr. Specimen obtained. Returned ds4 cloudy urine. Patient tolerated well. Administered Medications: 20:22 Drug: NS 0.9% 500 ml Volume: 500 ml; Route: IV; Rate: 1 bolus; Site: left antecubital; ll3 21:08 Follow up: Response: No adverse reaction; Blood pressure is elevated; IV Status: ll3 Completed infusion; IV Intake: 500ml 21:08 Drug: NS 0.9% 1000 ml Route: IV; Rate: 1000 ml; Site: left antecubital; ll3 09/01 01:13 Not Given (Duplicate Order): NS 0.9% 1000 ml IV at 125 ml/hr continuous ll3 Point of Care Testing: Blood Glucose: 08/31 16:20 Blood Glucose: 305 mg/dL; jd3 Ranges: Intake: 21:08 IV: 500ml; Total: 500ml. ll3 Outcome: 17:40 Decision to Hospitalize by Provider. [facility] 09/01 14:03 Patient left the ED. jd3 NIH Stroke Scale - NIH Stroke Score Date: 08/31/2021 Time: 16:15 Total Score = 6 1a. Level of Consciousness (LOC) - 0(Alert) 1b. Level of Consciousness (LOC) (Month \\T\\ Age) - 0(Both) 1c. LOC Commands (Open \\T\\ Closes Eyes/Hot Knife Cutter) - 0(Both) 2. Best Gaze (Lateral Gaze Paresis) - 0(Normal) 3. Visual Field Loss - 0(No visual loss) 4. Facial Palsy - 0(Normal) 5a. Left Arm: Motor (10-second hold) - 0(No drift) 5b. Right Arm: Motor (10-second hold) - 1(Drift) 6a. Left Leg: Motor (5-second hold - always test supine) - 0(No drift) 6b. Right Leg: Motor (5-second hold - always test supine) - 1(Drift) 7. Limb Ataxia (finger/nose \\T\\ heel/lopez - test with eyes open) - 2(Present in two limbs) 8. Sensory Loss (pinprick arms/legs/face) - 1(Mild to moderate loss) 9. Best Language: Aphasia (description/naming/reading) - 0(No aphasia) 10. Dysarthria (speech clarity - read or repeat words) - 1(Mild to Moderate) 11. Extinction and Inattention (visual/tactile/auditory/spatial/personal) - 0(No abnormality) Initials: jd3 NIH Stroke Scale - NIH Stroke Score Date: 08/31/2021 Time: 16:30 Total Score = 5 1a. Level of Consciousness (LOC) - 0(Alert) 1b. Level of Consciousness (LOC) (Month \\T\\ Age) - 0(Both) 1c. LOC Commands (Open \\T\\ Closes Eyes/Hot Knife Cutter) - 0(Both) 2. Best Gaze (Lateral Gaze Paresis) - 0(Normal) 3. Visual Field Loss - 0(No visual loss) 4. Facial Palsy - 0(Normal) 5a. Left Arm: Motor (10-second hold) - 0(No drift) 5b. Right Arm: Motor (10-second hold) - 1(Drift) 6a. Left Leg: Motor (5-second hold - always test supine) - 0(No drift) 6b. Right Leg: Motor (5-second hold - always test supine) - 1(Drift) 7. Limb Ataxia (finger/nose \\T\\ heel/lopez - test with eyes open) - 2(Present in two limbs) 8. Sensory Loss (pinprick arms/legs/face) - 0(Normal) 9. Best Language: Aphasia (description/naming/reading) - 0(No aphasia) 10. Dysarthria (speech clarity - read or repeat words) - 1(Mild to Moderate) 11. Extinction and Inattention (visual/tactile/auditory/spatial/personal) - 0(No abnormality) Initials: julissa Signatures: Dispatcher [employer] EDMauricio Redman PA PA jmm Ballard, Brenda, RN RN Jennifer Aguilar RN RN iw Swanson, Donovan ds4 Thierry Plascencia RN RN jJeffry Anglin RN RN ll1 Steafni Hirsch RN RN ll3 Corrections: (The following items were deleted from the chart) 08/31 16:20 16:19 Allergies: No Known Allergies; brisa ledezma 17:07 16:15 NIHSS Score: 6 brisa ledezma
--- NOTE | 2021-08-31 17:41 | EDPHYS ---
Physician Documentation [facility] Name: Romy Cortes Age: 51 yrs Sex: Female : 1970 Arrival Date: 08/31/2021 Time: 16:15 Bed 3 Private MD: ED Physician Kulwant Nieves HPI: 08/31 16:30 This 51 yrs old Black Female presents to ER via EMS with complaints of Slurred speech, jmm chest pain. 16:30 The patient's problem is reported as dysphasia, slurred speech. Onset: The jmm symptoms/episode began/occurred gradually, this morning, at 07:00. Duration: This was a single incident. This is a 51-year-old female with history of diabetes mellitus, hypertension, hyperlipidemia, CVA, CAD, bipolar the presents emerged part with complaints of slurred speech chest pain right-sided weakness symptoms began this morning around 7 AM. Patient states she suffered from a stroke month ago and is in a rehab facility. States that she is leaning to the right side. Patient states that the stroke she suffered from a month ago did affect her right side.. DISTRICT ADVISER: 16:20 LMP N/A - Irregular menses jd3 Historical: - Allergies: 16:19 amlodipine; jd3 - Home Meds: 16:19 Plavix 75 mg Oral tab 1 tab once daily [Active]; jd3 - PMHx: 16:19 Diabetes - IDDM; Hypertension; Hyperlipidemia; link recorder; cardiac stent x2; CAD; jd3 - Immunization history:: Adult Immunizations up to date. - Social history:: Smoking status: unknown. ROS: 16:30 Constitutional: Negative for fever, chills, and weight loss. jmm 16:30 Cardiovascular: Positive for chest pain. 16:30 Neuro: Positive for speech changes. 16:30 All other systems are negative. Exam: 16:30 Radiologist reports: Negative for CVA negative for CVA jmm 16:30 Constitutional: This is a well developed, well nourished patient who is awake, alert, and in no acute distress. Head/Face: atraumatic. Eyes: EOMI, no conjunctival erythema appreciated ENT: Moist Mucus Membranes Neck: Trachea midline, Supple Chest/axilla: Normal chest wall appearance and motion. Cardiovascular: Regular rate and rhythm. No edema appreciated Respiratory: Normal respirations, no respiratory distress appreciated Abdomen/GI: Non distended, soft 16:30 Abdomen/GI: Inspection: obese 16:30 Musculoskeletal/extremity: ROM: intact in all extremities. 16:30 Neuro: Orientation: is normal, Mentation: is normal, Memory: is normal, Cerebellar function: dysmetria is noted on both sides, Mild drift noted mild drift noted to the right upper extremity. 16:30 Psych: Behavior/mood is pleasant, cooperative. Vital Signs: 16:20 BP 118 / 78; Pulse 71; Resp 18 S; Temp 97.3(TE); Pulse Ox 99% on R/A; Weight 90.72 kg jd3 (R); Height 5 ft. 8 in. (172.72 cm) (R); Pain 0/10; 18:50 BP 115 / 75; Pulse 75; Resp 16 S; Pulse Ox 99% on R/A; jd3 16:20 Body Mass Index 30.41 (90.72 kg, 172.72 cm) jd3 NIH Stroke Scale Scores: 16:15 NIHSS Score: 6 [facility] 16:30 NIHSS Score: 5 [facility] MDM: 16:23 Patient medically screened. [facility] 17:39 Data reviewed: vital signs, nurses notes. Counseling: I had a detailed discussion with [facility] the patient and/or guardian regarding: the historical points, exam findings, and any diagnostic results supporting the discharge/admit diagnosis, lab results, the need for further work-up and treatment in the hospital. ED course: I discussed the patient with Dr. Cristobal whom accepted the patient to his service. 08/31 16:24 Order name: Basic Metabolic Panel; Complete Time: 17:14 [facility] 08/31 16:24 Order name: CBC with Diff; Complete Time: 17:14 [facility] 08/31 16:24 Order name: LFT's; Complete Time: 17:14 [facility] 08/31 16:24 Order name: Magnesium; Complete Time: 17:14 [facility] 08/31 16:24 Order name: NT PRO-BNP; Complete Time: 17:14 [facility] 08/31 16:24 Order name: PT-INR; Complete Time: 17:14 [facility] 08/31 16:24 Order name: Troponin HS; Complete Time: 17:14 [facility] 08/31 17:46 Order name: T4 Free; Complete Time: 03:21 EDMS 08/31 17:46 Order name: Thyroid Stimulating Hormone; Complete Time: 03:21 EDMS 08/31 17:46 Order name: Urinalysis EDIL 08/31 17:47 Order name: Basic Metabolic Panel EDIL 08/31 17:47 Order name: Basic Metabolic Panel; Complete Time: 08:22 EDMS 08/31 17:47 Order name: CBC with Automated Diff EDMS 08/31 17:47 Order name: CBC with Automated Diff; Complete Time: 08:22 EDMS 08/31 17:47 Order name: Lipid Profile EDIL 08/31 17:47 Order name: Lipid Profile; Complete Time: 08:22 EDMS 08/31 17:47 Order name: Magnesium EDIL 08/31 17:47 Order name: Magnesium; Complete Time: 08:22 EDMS 08/31 17:47 Order name: Phosphorus EDIL 08/31 17:47 Order name: Phosphorus; Complete Time: 08:22 EDMS 08/31 17:48 Order name: COVID-19 SARS RT PCR (Document "Date of Onset" if Symptomatic) bd 08/31 20:09 Order name: ABG rn 08/31 20:44 Order name: Glucose, Ancillary Testing; Complete Time: 21:02 EDIL 08/31 21:28 Order name: SARS-COV-2 RT PCR; Complete Time: 21:41 EDIL 08/31 21:32 Order name: UDS la1 08/31 21:32 Order name: AMMONIA la 08/31 21:32 Order name: Lactate la1 08/31 21:32 Order name: Troponin High Sensitivity la 08/31 21:33 Order name: ABG Arterial Blood Gas; Complete Time: 21:41 EDIL 08/31 22:13 Order name: Ammonia; Complete Time: 03:21 EDMS 08/31 16:24 Order name: XRAY Chest (1 view); Complete Time: 18:19 [facility] 08/31 16:24 Order name: EKG; Complete Time: 16:25 [facility] 08/31 16:24 Order name: Cardiac monitoring; Complete Time: 16:46 [facility] 08/31 16:24 Order name: EKG - Nurse/Tech; Complete Time: 16:46 [facility] 08/31 16:24 Order name: IV Saline Lock; Complete Time: 16:46 [facility] 08/31 16:24 Order name: Labs collected and sent; Complete Time: 16:46 [facility] 08/31 16:24 Order name: O2 Per Protocol; Complete Time: 16:46 [facility] 08/31 16:24 Order name: O2 Sat Monitoring; Complete Time: 16:46 [facility] 08/31 16:25 Order name: CT Head Brain wo Cont; Complete Time: 16:58 [facility] 08/31 17:46 Order name: Physical Therapy Consult [facility] 08/31 17:46 Order name: Heart Healthy [facility] 08/31 21:33 Order name: Cath: straight cath; Complete Time: 22:35 [facility] 08/31 22:17 Order name: Lactate; Complete Time: 03:21 EDMS 08/31 22:18 Order name: Troponin High Sensitivity; Complete Time: 03:21 MS 08/31 22:48 Order name: Urine Dipstick-Ancillary; Complete Time: 03:21 EDMS 08/31 22:49 Order name: Urine Microscopic Only ds4 08/31 22:53 Order name: Glucose, Ancillary Testing; Complete Time: 03:21 EDMS 08/31 23:10 Order name: Urine Drug Screen; Complete Time: 03:21 EDMS 09/01 00:03 Order name: Urine Microscopic Only; Complete Time: 03:21 EDMS 09/01 03:21 Order name: BIPAP la1 09/01 04:07 Order name: Troponin High Sensitivity; Complete Time: 08:22 EDMS 09/01 08:07 Order name: Glucose, Ancillary Testing; Complete Time: 08:22 EDMS 09/01 08:47 Order name: US; Complete Time: 08:47 EDMS 09/01 12:07 Order name: Glucose, Ancillary Testing; Complete Time: 12:29 EDMS Administered Medications: 20:22 Drug: NS 0.9% 500 ml Volume: 500 ml; Route: IV; Rate: 1 bolus; Site: left antecubital; ll3 21:08 Follow up: Response: No adverse reaction; Blood pressure is elevated; IV Status: ll3 Completed infusion; IV Intake: 500ml 21:08 Drug: NS 0.9% 1000 ml Route: IV; Rate: 1000 ml; Site: left antecubital; ll3 09/01 01:13 Not Given (Duplicate Order): NS 0.9% 1000 ml IV at 125 ml/hr continuous ll3 Point of Care Testing: Blood Glucose: 08/31 16:20 Blood Glucose: 305 mg/dL; jd3 Ranges: Critical Glucose Levels:Adult <50 mg/dl or >400 mg/dl <40 mg/dl or >180 mg/dl Disposition Summary: 08/31/21 17:40 Hospitalization Ordered Hospitalization Status: Inpatient Admission jmm Provider: Shakir Valenzuela Condition: Stable jmm Problem: an acute exacerbation jmm Symptoms: have improved jmm Bed/Room Type: Standard jmm Location: Telemetry/MedSurg (Inpatient)(09/01/21 12:54) bd Room Assignment: 216(09/01/21 12:54) bd Diagnosis - Cerebral infarction, unspecified jmm - Chest pain, unspecified jmm Forms: - Medication Reconciliation Form jmm - SBAR form jmm NIH Stroke Scale - NIH Stroke Score Date: 08/31/2021 Time: 16:15 Total Score = 6 1a. Level of Consciousness (LOC) - 0(Alert) 1b. Level of Consciousness (LOC) (Month \\T\\ Age) - 0(Both) 1c. LOC Commands (Open \\T\\ Closes Eyes/Industrial Refrigeration Mechanic) - 0(Both) 2. Best Gaze (Lateral Gaze Paresis) - 0(Normal) 3. Visual Field Loss - 0(No visual loss) 4. Facial Palsy - 0(Normal) 5a. Left Arm: Motor (10-second hold) - 0(No drift) 5b. Right Arm: Motor (10-second hold) - 1(Drift) 6a. Left Leg: Motor (5-second hold - always test supine) - 0(No drift) 6b. Right Leg: Motor (5-second hold - always test supine) - 1(Drift) 7. Limb Ataxia (finger/nose \\T\\ heel/lopez - test with eyes open) - 2(Present in two limbs) 8. Sensory Loss (pinprick arms/legs/face) - 1(Mild to moderate loss) 9. Best Language: Aphasia (description/naming/reading) - 0(No aphasia) 10. Dysarthria (speech clarity - read or repeat words) - 1(Mild to Moderate) 11. Extinction and Inattention (visual/tactile/auditory/spatial/personal) - 0(No abnormality) Initials: jd3 NIH Stroke Scale - NIH Stroke Score Date: 08/31/2021 Time: 16:30 Total Score = 5 1a. Level of Consciousness (LOC) - 0(Alert) 1b. Level of Consciousness (LOC) (Month \\T\\ Age) - 0(Both) 1c. LOC Commands (Open \\T\\ Closes Eyes/Industrial Refrigeration Mechanic) - 0(Both) 2. Best Gaze (Lateral Gaze Paresis) - 0(Normal) 3. Visual Field Loss - 0(No visual loss) 4. Facial Palsy - 0(Normal) 5a. Left Arm: Motor (10-second hold) - 0(No drift) 5b. Right Arm: Motor (10-second hold) - 1(Drift) 6a. Left Leg: Motor (5-second hold - always test supine) - 0(No drift) 6b. Right Leg: Motor (5-second hold - always test supine) - 1(Drift) 7. Limb Ataxia (finger/nose \\T\\ heel/lopez - test with eyes open) - 2(Present in two limbs) 8. Sensory Loss (pinprick arms/legs/face) - 0(Normal) 9. Best Language: Aphasia (description/naming/reading) - 0(No aphasia) 10. Dysarthria (speech clarity - read or repeat words) - 1(Mild to Moderate) 11. Extinction and Inattention (visual/tactile/auditory/spatial/personal) - 0(No abnormality) Initials: [facility] Addendum: 09/03/2021 07:19 Co-signature as Attending Physician, Kulwant Nieves MD I agree with the kdr assessment and plan of care. Signatures: Dispatcher [employer] EDMS Carli Alfaro Gisell Ward RN RN mw Rittger, Kevin, MD MD [facility] Mauricio Crawford PA PA [facility] Jagjit Gil, ARTILLERY OR NAVAL GUNFIRE OBSERVER-C ARTILLERY OR NAVAL GUNFIRE OBSERVER-Cla1 Thierry Plascencia RN RN jd3 Stefani Hirsch RN RN ll3 Corrections: (The following items were deleted from the chart) 08/31 16:20 16:19 Allergies: No Known Allergies; brisa ledezma 21:52 17:40 Telemetry/MedSurg (Inpatient) [facility] 21:52 17:40 [facility] 09/01 12:54 08/31 21:52 [facility] ER HOLD mw bd 05/11 12:54 05/10 21:52 ERHOLD- mw bd
--- NOTE | 2021-08-31 18:17 | RAD REPORT ---
EXAM DESCRIPTION: RAD - Chest Single View - 08/31/2021 5:45 pm CLINICAL HISTORY: CHEST PAIN Chest pain. COMPARISON: Chest Single View dated 12/17/2018; Chest Single View dated 11/16/2018; Chest Single View dated 03/18/2016; Chest Single View dated 03/17/2016 FINDINGS: Portable technique limits examination quality. Mild interstitial pulmonary edema. The heart is mildly prominent size. Sternotomy wires are present. IMPRESSION: Mild CHF.
--- NOTE | 2021-08-31 19:04 | P.HP ---
Certification for Inpatient Patient admitted to: Observation With expected LOS: <2 Midnights Patient will require the following post-hospital care: None Practitioner: I am a practitioner with admitting privileges, knowledge of patient current condition, hospital course, and medical plan of care. Services: Services provided to patient in accordance with Admission requirements found in Title 42 Section 412.3 of the Code of Federal Regulations Patient History Date of Service: 08/31/21 Reason for admission: Chest pain History of Present Illness: 51-year-old female history of insulin-dependent diabetes, hypertension, hyperlipidemia, CAD status post CABG, CVA 1 month prior presents the emergency department for weakness, slurred speech. Patient had CVA 1 month prior with resulting right-sided deficits and slurred speech she is currently at [facility] for rehabilitation. She reports feeling very drowsy today the staff was concerned about some possible new right-sided weakness. Patient reports that she feels her right side is at its baseline after her CVA, she does feel drowsy as if her speech is little bit slurred, patient believes that they may have given her her nightly trazodone during the day today. Patient was also complaining about some chest pressure that she experienced this morning last about 5 minutes without any other associated signs or symptoms on exam patient was noted to have some right upper quadrant tenderness. Labs were significant for mild hyperglycemia CT head demonstrated no acute intracranial abnormalities chest x-ray demonstrated mild interstitial pulmonary edema troponin initial negative BNP 107 patient on room air ED provider wishes to admit under observation for ACS rule out. Allergies No Known Allergies Allergy (Verified 03/17/16 15:34) Home Medications: Aspirin [Ecotrin 81 MG] 81 mg PO DAILY #30 tablet. 03/19/16 Atorvastatin Calcium [Lipitor*] 10 mg PO BEDTIME #30 tab 03/19/16 Lansoprazole [Prevacid 24Hr] 15 mg PO DAILY #30 capsule. 03/19/16 Magnesium Oxide [Mag 0X*] 400 mg PO BID #60 tab 03/19/16 Metoprolol Tartrate [Lopressor*] 50 mg PO BID #60 tab 03/19/16 lisinopriL [Prinivil*] 20 mg PO DAILY #30 tab 03/19/16 - Past Medical/Surgical History Diabetic: Yes -: hyperlipidemia -: hypertension -: Type 2 diabetes -: CVA -: CAD status post CABG -: hysterectomy -: hypertension -: tonsilectomy -: -: lumber spinal fusion -: cardiac stents x 2 2016 -: Gastric pacemaker/gastroparesis Psychosocial/ Personal History: Patient currently at [facility] for rehab after CVA - Family History Father -: Heart disease, Hypertension, Diabetes, Stroke Mother Notes: no medical history - Social History Smoking Status: Never smoker Alcohol use: No CD- Drugs: No Caffeine use: No Place of Residence: Home Review of Systems 10-point ROS is otherwise unremarkable Cardiovascular: Chest Pain, As per HPI Neurological: Weakness (Baseline right-sided weakness), Change in Speech (Mild slurred speech) Physical Examination - Physical Exam General: Alert, In no apparent distress, Oriented x3 HEENT: Atraumatic, PERRLA, Mucous membr. moist/pink, EOMI, Sclerae nonicteric Neck: Supple, 2+ carotid pulse no bruit, No LAD, Without JVD or thyroid abnormality Respiratory: Clear to auscultation bilaterally, Normal air movement Cardiovascular: Regular rate/rhythm, Normal S1 S2 Gastrointestinal: Normal bowel sounds, Tenderness (Mild right upper quadrant tenderness) Musculoskeletal: No tenderness Integumentary: No rashes Neurological: Normal tone, Normal affect, Abnormal speech (Slurred speech), Abnormal strength (Right upper and lower extremity weakness) - Studies Laboratory Data (last 24 hrs) 08/31/21 16:40: PT 10.7, INR 0.97 08/31/21 16:40: WBC 9.8 D, Hgb 10.9 L, Hct 33.4 L, Plt Count 242 08/31/21 16:40: Sodium 138, Potassium 4.6, BUN 24 H, Creatinine 1.12, Glucose 253 H, Magnesium 2.2 D, Total Bilirubin 0.3, AST 10 L, ALT 19, Alkaline Phosphatase 79 Assessment and Plan - Plan Assessment: Chest pain rule out ACS history of CAD History of CVA with right-sided weakness Diabetes mellitus type 2insulin-dependent Hypertension Hyperlipidemia Plan: Chest pain rule out ACS history of CAD: Monitor on telemetry, trend troponins, continue home medications. Patient also with some right upper quadrant/epigastric tenderness will obtain ultrasound to rule out cholecystitis. History of CVA with right-sided weakness: Continue home medications, patient feels as if her weakness in the right upper and lower extremity are at their baseline after her CVA 1 month prior. She believes she had a dose of her trazodone during the day which she typically takes at night and this is why she has been feeling more drowsy. We will hold trazodone for this evening monitor closely, low threshold for MRI in the morning. Diabetes mellitus type 2insulin-dependent: ACH S Accu-Chek, sliding scale insulin Hypertension: Continue home medications Hyperlipidemia:Continue home medications DVT PPX: Lovenox Code status: Full Discharge Plan: Home Plan to discharge in: 24 Hours - Advance Directives Does patient have a Living Will: No Does patient have a Durable POA for Healthcare: No - Code Status/Comfort Care Code Status Assessed: Yes (Full code) Critical Care: No Time Spent Managing Pts Care (In Minutes): 55
[2021-08-31] MEDS ORDERED: NA CHLORIDE 0.9% 1,000 ML ONE ×2 (20:02→22:52)
[2021-08-31] MEDS: INSULIN -REGULAR HUMAN 50 UNIT/0.5 ML ML SQ SCH (21:00)
[2021-08-31 21:29] LABS: Arterial Blood Carboxyhemoglob 1.1 % (0-1.5); Blood Gas Oxyhemoglobin 95.8 % (94-97); Blood O2 Saturation 97.9 % (92-98.5)
[2021-08-31 22:25] LABS: Thyroid Stimulating Hormone 1.95 uIU/mL (0.360-3.740)
[2021-08-31 22:47] LABS: Urine Blood Negative (Negative); Urine Glucose Trace (Negative); Urine Protein Negative (Negative); Urine Specific Gravity 1.015 (1.005-1.030); Urine pH 5.5 (5.0-7.0)
[2021-08-31] MEDS ORDERED: ATORVASTATIN 20 MG TAB ONE (22:51)
[2021-08-31] MEDS ORDERED: INSULIN -REGULAR HUMAN 50 UNIT/0.5 ML ML ONE (22:52)
[2021-08-31] MEDS ORDERED: ENOXAPARIN 40 MG/0.4 ML SQ ONE (22:52)
[2021-08-31] MEDS: ENOXAPARIN 40 MG/0.4 ML SQ SCH (23:00)
[2021-08-31] MEDS: NA CHLORIDE 0.9% 1,000 ML IV SCH (23:00)
[2021-08-31 23:10] LABS: Barbiturates NEGATIVE (NEGATIVE); Benzodiazepines NEGATIVE (NEGATIVE); Cocaine NEGATIVE (NEGATIVE); METHAMPHETAM NEGATIVE (NEGATIVE); Methadone NEGATIVE (NEGATIVE); Opiates NEGATIVE (NEGATIVE); Phencyclidine NEGATIVE (NEGATIVE); THC Cannibis NEGATIVE (NEGATIVE)
[2021-08-31] MEDS ORDERED: ACETAMINOPHEN 325 MG TABLET ONE (23:19)
[2021-08-31] MEDS: ATORVASTATIN 40 MG TAB PO SCH (23:20)
[2021-08-31] MEDS: ACETAMINOPHEN 325 MG TABLET PO PRN (23:23)
[2021-09-01 00:03] LABS: Urine Bacteria >50 /HPF (<20); Urine RBC NONE SEEN /HPF (NONE SEEN); Urine Urothelial Cells <5 /HPF (NONE SEEN)
[2021-09-01 00:55] VITALS: BMI 30.4
[2021-09-01 03:54] LABS: Absolute Lymphocytes (CBC) 1.6 K/uL (0.7-4.9); Hematocrit 32.2 % (36.0-45.0); Lymphocytes % 17.1 % (15.3-44.8); MPV 9.4 fL (7.6-11.3); RBC Red Blood Cell Count 3.59 M/uL (3.86-4.86)
[2021-09-01 04:07] LABS: Magnesium 2.1 mg/dL (1.8-2.4); Phosphorus 3.7 mg/dL (2.5-4.9); Potassium 5.4 mmol/L (3.5-5.1); Troponin High Sensitivity 8.6 pg/mL (<58.9)
--- NOTE | 2021-09-01 07:30 | EKG ---
Test Date: 2021-08-31 Test Time: 21:28:40 [employer] Driver: PAMELLA MEASUREMENT RESULTS: Intervals: Rate: 63 FL: 160 QRSD: 76 QT: 466 QTc: 476 [place]: P: 64 FL: 160 QRS: -26 T: 67 INTERPRETIVE STATEMENTS: Normal sinus rhythm Inferior infarct, age undetermined Anterior infarct, age undetermined Abnormal ECG Compared to ECG 08/31/2021 16:37:54 No significant changes Electronically Signed On 09-01-21 07:29:47 CDT by Ebenezer Bliss
--- NOTE | 2021-09-01 07:31 | EKG ---
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
[2021-09-01] MEDS: INSULIN -REGULAR HUMAN 50 UNIT/0.5 ML ML SQ SCH ×4 (08:09→21:36)
[2021-09-01] MEDS ORDERED: INSULIN -REGULAR HUMAN 50 UNIT/0.5 ML ML ONE ×2 (08:11→12:11)
--- NOTE | 2021-09-01 08:47 | RAD REPORT ---
EXAM DESCRIPTION: US - Abdomen Exam Limited - 09/01/2021 12:20 am CLINICAL HISTORY: RUQ tenderness, eval for cholecystitis COMPARISON: No comparisons FINDINGS: The gallbladder demonstrates no gallstones. No pericholecystic fluid or gallbladder wall t hickening. The common bile duct is normal measuring 4 mm. The liver demonstrates no findings of intrahepatic biliary dilatation. IMPRESSION: Unremarkable examination.
[2021-09-01] MEDS ORDERED: NA CHLORIDE 0.9% 1,000 ML ONE (09:00)
[2021-09-01] MEDS: NA CHLORIDE 0.9% 1,000 ML IV SCH ×2 (09:00→17:26)
[2021-09-01] MEDS ORDERED: ENOXAPARIN 40 MG/0.4 ML SQ ONE (09:00)
[2021-09-01] MEDS: ASPIRIN EC 81 MG TAB PO SCH (09:00)
[2021-09-01] MEDS ORDERED: ASPIRIN EC 81 MG TAB PO ONE (09:00)
[2021-09-01] MEDS: ENOXAPARIN 40 MG/0.4 ML SQ SCH (09:00)
--- NOTE | 2021-09-01 10:42 | P.PN ---
Subjective Date of Service: 09/01/21 Chief Complaint: Chest pain Subjective: No new changes, Improving Physical Examination - Vital Signs Temperature: 98.6 F Blood Pressure: 143/70 Pulse: 80 Respirations: 14 Pulse Ox (%): 100 - Physical Exam General: Alert, Oriented x3 HEENT: Atraumatic, Normocephalic Neck: Supple Respiratory: Normal air movement Cardiovascular: Regular rate/rhythm, Normal S1 S2 Gastrointestinal: Soft and benign Musculoskeletal: No swelling Neurological: Normal speech - Studies Laboratory Data (last 24 hrs) 08/31/21 16:40: PT 10.7, INR 0.97 08/31/21 16:40: WBC 9.8 D, Hgb 10.9 L, Hct 33.4 L, Plt Count 242 08/31/21 16:40: Sodium 138, Potassium 4.6, BUN 24 H, Creatinine 1.12, Glucose 253 H, Magnesium 2.2 D, Total Bilirubin 0.3, AST 10 L, ALT 19, Alkaline Phosphatase 79 Assessment And Plan - Plan Chest pain rule out ACS history of CAD: Monitor on telemetry, trend troponins, continue home medications. Gallbladder ultrasound to rule out cholecystitis negative. History of CVA with right-sided weakness: MRI of the brain could not be done due to gastric pacemaker present on patient. Neurology consulted for management recommendation Will continue aspirin and Lovenox therapy pending further review. Lipid panel evaluated. No abnormality. Continue statin therapy at present dose. Diabetes mellitus type 2insulin-dependent: ACH S Accu-Chek, sliding scale insulin. Hypertension: Continue home medications. Hyperlipidemia:Continue home medications. DVT PPX: Lovenox Code status: Full Discharge Plan: Home Plan to discharge in: 24-48 hours.
[2021-09-01] MEDS: ATORVASTATIN 40 MG TAB PO SCH (21:35)
[2021-09-02] MEDS: HYDRALAZINE HCL 20 MG/ML VIAL IV PRN ×2 (00:59→11:53)
[2021-09-02] MEDS: NA CHLORIDE 0.9% 1,000 ML IV SCH ×3 (03:32→10:00)
[2021-09-02] MEDS: ACETAMINOPHEN 325 MG TABLET PO PRN ×2 (03:34→14:53)
[2021-09-02] MEDS ORDERED: PNEUMOCOCCAL VACCINE 0.5 ML IMVAC ONE (08:00)
[2021-09-02] MEDS: INSULIN -REGULAR HUMAN 50 UNIT/0.5 ML ML SQ SCH ×4 (08:12→20:35)
[2021-09-02] MEDS: ENOXAPARIN 40 MG/0.4 ML SQ SCH (08:13)
[2021-09-02] MEDS: ASPIRIN EC 81 MG TAB PO SCH (08:13)
[2021-09-02] MEDS: ONDANSETRON 4 MG/2 ML VIAL IV PRN (14:08)
[2021-09-02] MEDS: TRAMADOL HCL 50 MG TAB PO PRN (16:45)
--- NOTE | 2021-09-02 17:34 | P.PN ---
Subjective Date of Service: 09/02/21 Chief Complaint: Chest pain Subjective: No new changes, Improving Physical Examination - Vital Signs Temperature: 98.8 F Blood Pressure: 130/61 Pulse: 106 Respirations: 16 Pulse Ox (%): 93 - Physical Exam General: Alert, Oriented x3 HEENT: Atraumatic, Normocephalic Neck: Supple Respiratory: Normal air movement Cardiovascular: Regular rate/rhythm, Normal S1 S2 Gastrointestinal: Soft and benign Neurological: Normal speech Assessment And Plan - Plan Chest pain rule out ACS history of CAD: work has been negative so far. we will follow closely. History of CVA with right-sided weakness: has no new issues. reported hx of seizures. Neurology following. Pt requesting change of NH for rehab. Pending case management arrangement for placement. Diabetes mellitus type 2insulin-dependent: ACH S Accu-Chek, sliding scale insulin. Hypertension: Continue home medications. Hyperlipidemia:Continue home medications. DVT PPX: Lovenox Code status: Full. Discharge Plan: Home Plan to discharge in: 24 hours.
[2021-09-02] MEDS: ATORVASTATIN 40 MG TAB PO SCH (20:35)
[2021-09-03] MEDS: TRAMADOL HCL 50 MG TAB PO PRN ×3 (03:35→20:12)
--- NOTE | 2021-09-03 04:32 | CON ---
Consultation called in because of possible stroke. History Of Present Illness: Ms. Cortes is a 51-year-old patient with multiple medical prob lems including insulin-dependent diabetes mellitus; dyslipidemia; hypertension; coronary artery disea se, status post bypass grafting of multiple cardiac vessels, who was at [facility] for strok e affecting her right side from left brain. Stroke produced right-sided weakness, slurred speech, mi ld dysarthria and dysphagia, and aphasia. She was at [facility] doing rehabilitation and recovering f airly well when she became drowsy, had more slurred speech, and left-sided weakness, and this was on August 31, today is the . The patient at [facility] had a CT scan on the and that w as actually about 2 days after symptoms began. Scan showed no acute ischemic or hemorrhagic change. She did feel that the symptoms had somewhat improved, but she still had residual left-sided weakness in the face, arm, and leg and the right side was mostly at baseline strength. Complete blood count with differential remarkable for low hemoglobin and hematocrit, otherwise unremarkable. INR 0.97. A n arterial blood gas on admission did show slightly elevated pCO2 59, pH 7.28. Her potassium was karley vated at 5.4. Subsequent LDL 49, HDL 28. Glucose 348. Calcium 8.3. Urinalysis: Trace esterase, 5 to 10 white blood cells, greater than 50 bacteria. A urine drug screen was negative. COVID testing negative. Her urine cultures grew gram-negative rods 4+, greater than 100,000 colony-forming units. She did not ambulate when the physical therapist came due to nausea. Did receive Zofran, which has h elped. Past Medical History: As noted. Past Surgical History: Hysterectomy, tonsillectomy, , lumbar spinal fusion, cardiac stents x2 in 2016. She has a gastric pacemaker for gastroparesis and is unable to receive an MRI. Allergies: NO KNOWN DRUG ALLERGIES. Medications: Aspirin 81 mg daily, Lipitor 10 mg at bedtime, Prevacid 15 mg daily, magnesium oxide 40 0 mg twice daily, Lopressor 50 mg twice daily, Prinivil 20 mg daily. Family History: Positive for heart disease, hypertension, diabetes, stroke in Father. Social History: No alcohol, tobacco, or IV drug use. Review of Systems: As noted, she has some baseline right-sided weakness with mild dysarthria, dysphagia, and aphasia. N ow some new left-sided weakness, slurred speech, numbness as well in the left face and arm, and nause a. No vomiting. Physical Examination: Vital Signs: Blood pressure 130/61, pulse of 106, temperature 98.8, oxygen saturation 93%, respirato ry rate 16. Weight 200 pounds, height 5 feet 8 inches, BMI 30.4. General: Ms. Cortes is lying in bed. She is in no significant distress. She had nausea earlier and received Zofran with resolution. HEENT: She is otherwise normocephalic, atraumatic. Sclerae anicteric. Oropharynx is pink and moist . Neck: Supple. Chest: Clear. Heart: Regular. Extremities: Show mild edema. No clubbing. Neurological: Slow to respond. Slight decreased verbal fluency. Otherwise, her face is symmetric. Slight decrease to light touch and temperature on the left compared to right. Otherwise, intact craft manager nial nerves. On motor examination, 4/5 strength proximally and distally in the left and right upper and lower extremities. Decreased sensation in the left compared to right upper and lower extremities . Coordination is slow, but intact in the left and right upper and lower extremities. Reflexes are 1+ in the upper extremities at the biceps as well as triceps and the patella, 0 at the heels. Assessment: Ms. Cortes is a 51-year-old patient with multiple stroke risk factors; cardiovascular di sease, status post multivessel stenting, who likely has additional possibly lacunar strokes with left -sided residual weakness. She had stroke with right-sided residual weakness, dysphasia, aphasia, dys arthria. Her medication regimen now includes aspirin 162 mg daily, Lipitor 40 mg at bedtime. Consid er adding Plavix 75 mg daily, Zofran for nausea. Long-term, she may benefit from more aggressive man agement of blood sugars. Her blood sugars have ranged up to 348 and a low of 213. She appears to obando ve urinary tract infection. 4+ gram-negative rods with sensitivities pending. Plan: 1.Antibiotics as appropriate for her urinary tract infection. 2.Aspirin, Plavix, folic acid, statin. 3.She may resume aggressive physical and occupational therapy along with speech therapy to help rega in function. JAIMIE/FALLON Voice ID: [id number] Report ID: [id number]
[2021-09-03] MEDS: INSULIN -REGULAR HUMAN 50 UNIT/0.5 ML ML SQ SCH ×4 (07:30→20:13)
[2021-09-03] MEDS: ASPIRIN EC 81 MG TAB PO SCH (08:29)
[2021-09-03] MEDS: ENOXAPARIN 40 MG/0.4 ML SQ SCH (08:29)
[2021-09-03] MEDS: ONDANSETRON 4 MG/2 ML VIAL IV PRN ×2 (10:45→17:32)
[2021-09-03] MEDS: HYDRALAZINE HCL 20 MG/ML VIAL IV PRN (11:53)
--- NOTE | 2021-09-03 17:05 | P.PN ---
Subjective Date of Service: 09/03/21 Chief Complaint: Chest pain Subjective: No new changes, Improving Physical Examination - Vital Signs Temperature: 98.3 F Blood Pressure: 159/91 Pulse: 98 Respirations: 18 Pulse Ox (%): 97 - Physical Exam General: Alert, Oriented x3 HEENT: Atraumatic, Normocephalic Neck: Supple Respiratory: Normal air movement Cardiovascular: Regular rate/rhythm, Normal S1 S2 Gastrointestinal: Soft and benign Musculoskeletal: No swelling - Studies Microbiology Data (last 24 hrs): 08/31/21 22:45 Clean Catch Urine [place] Count - Final >100,000 CFU/ML. 08/31/21 22:45 Clean Catch Urine - Final Escherichia Coli Gram Neg Gilbert Assessment And Plan - Plan Chest pain rule out ACS history of CAD: work has been negative so far. we will follow closely. History of CVA with right-sided weakness: has no new issues. reported hx of seizures. Neurology following. Pt requesting change of NH for rehab. Pending case management arrangement for placement. Diabetes mellitus type 2insulin-dependent: ACH S Accu-Chek, sliding scale insulin. Hypertension: Continue home medications. Hyperlipidemia:Continue home medications. UTI: Urine culture grew E coli. we will continue rocephin for management. DVT PPX: Lovenox Code status: Full.
[2021-09-03] MEDS: CEFTRIAXONE 1,000 MG in NA CHLORIDE 0.9% 50 ML IVPB SCH (18:06)
[2021-09-03] MEDS ORDERED: CEFTRIAXONE 1000 MG/VIAL ONE (18:08)
[2021-09-03] MEDS ORDERED: NA CHLORIDE 0.9% 50 ML ONE (18:09)
[2021-09-03] MEDS: ATORVASTATIN 40 MG TAB PO SCH (20:13)
[2021-09-04] MEDS: TRAMADOL HCL 50 MG TAB PO PRN ×3 (04:05→20:13)
[2021-09-04 04:29] LABS: Potassium 3.6 mmol/L (3.5-5.1)
[2021-09-04] MEDS: INSULIN -REGULAR HUMAN 50 UNIT/0.5 ML ML SQ SCH ×4 (07:30→20:12)
[2021-09-04] MEDS: ASPIRIN EC 81 MG TAB PO SCH (07:52)
[2021-09-04] MEDS: ENOXAPARIN 40 MG/0.4 ML SQ SCH (07:52)
--- NOTE | 2021-09-04 08:17 | P.PN ---
Subjective Date of Service: 09/04/21 Chief Complaint: Chest pain Subjective: No new changes, Improving Physical Examination - Vital Signs Temperature: 97.2 F Blood Pressure: 132/60 Pulse: 85 Respirations: 18 Pulse Ox (%): 95 - Physical Exam General: Alert, Oriented x3 HEENT: Atraumatic, Normocephalic Neck: Supple Respiratory: Normal air movement Cardiovascular: Regular rate/rhythm, Normal S1 S2 Gastrointestinal: Soft and benign Musculoskeletal: No swelling Neurological: Normal speech - Studies Microbiology Data (last 24 hrs): 08/31/21 22:45 Clean Catch Urine [place] Count - Final >100,000 CFU/ML. 08/31/21 22:45 Clean Catch Urine - Final Escherichia Coli Gram Neg Gilbert Assessment And Plan - Plan Chest pain rule out ACS history of CAD: work has been negative so far. we will follow closely. History of CVA with right-sided weakness: has no new issues. reported hx of seizures. Neurology following. Pt requesting change of NH for rehab. Pending case management arrangement for placement. Diabetes mellitus type 2insulin-dependent: ACH S Accu-Chek, sliding scale insulin. Hypertension: Blood pressure is poorly controlled at this time. we will continue home medications. we will adjust to achieve adequate blood pressure control. Hyperlipidemia: Continue home medications. UTI: Urine culture grew E coli. we will continue rocephin for management. DVT PPX: Lovenox Code status: Full.
[2021-09-04] MEDS: ONDANSETRON 4 MG/2 ML VIAL IV PRN (10:56)
[2021-09-04] MEDS: HYDRALAZINE HCL 20 MG/ML VIAL IV PRN (11:53)
[2021-09-04] MEDS: HYDRALAZINE HCL 25 MG TABLET PO SCH ×2 (15:06→20:22)
[2021-09-04] MEDS: GABAPENTIN 400 MG CAP PO SCH ×2 (15:07→20:13)
[2021-09-04] MEDS: carvediloL 25 MG TAB PO SCH ×2 (15:07→20:21)
[2021-09-04] MEDS: EZETIMIBE 10 MG TAB PO SCH (15:07)
[2021-09-04] MEDS: CLOPIDOGREL 75 MG TABLET PO SCH (15:07)
[2021-09-04] MEDS ORDERED: CEFTRIAXONE 1000 MG/VIAL ONE (15:36)
[2021-09-04] MEDS ORDERED: NA CHLORIDE 0.9% 50 ML ONE (15:38)
[2021-09-04] MEDS: FLUOXETINE 10 MG CAP PO SCH (15:41)
[2021-09-04] MEDS: cloNIDine HCL 0.1 MG TAB PO PRN (17:05)
[2021-09-04] MEDS: CEFTRIAXONE 1,000 MG in NA CHLORIDE 0.9% 50 ML IVPB SCH (17:05)
[2021-09-04] MEDS: INSULIN GLARGINE 100 UNIT/ML SQ SCH (20:12)
[2021-09-04] MEDS: levETIRAcetam 500 MG TAB PO SCH (20:13)
[2021-09-04] MEDS: MAGNESIUM OXIDE 400 MG TAB PO SCH (20:13)
[2021-09-04] MEDS: ATORVASTATIN 80 MG TAB PO SCH (20:13)
[2021-09-04] MEDS: lisinopriL 20 MG TAB PO SCH (20:22)
[2021-09-05] MEDS: TRAMADOL HCL 50 MG TAB PO PRN ×2 (05:02→21:39)
[2021-09-05] MEDS: PANTOPRAZOLE 40MG TABLET PO SCH (05:02)
[2021-09-05] MEDS: INSULIN -REGULAR HUMAN 50 UNIT/0.5 ML ML SQ SCH ×4 (07:30→21:40)
[2021-09-05] MEDS: EZETIMIBE 10 MG TAB PO SCH (07:39)
[2021-09-05] MEDS: levETIRAcetam 500 MG TAB PO SCH ×2 (07:39→21:38)
[2021-09-05] MEDS: ENOXAPARIN 40 MG/0.4 ML SQ SCH (07:39)
[2021-09-05] MEDS: HYDRALAZINE HCL 25 MG TABLET PO SCH ×3 (07:39→21:40)
[2021-09-05] MEDS: lisinopriL 20 MG TAB PO SCH ×2 (07:39→21:39)
[2021-09-05] MEDS: ACETAMINOPHEN 325 MG TABLET PO PRN (07:40)
[2021-09-05] MEDS: carvediloL 25 MG TAB PO SCH ×2 (07:41→21:39)
[2021-09-05] MEDS: ASPIRIN EC 81 MG TAB PO SCH (07:41)
[2021-09-05] MEDS: CLOPIDOGREL 75 MG TABLET PO SCH (07:41)
[2021-09-05] MEDS: GABAPENTIN 400 MG CAP PO SCH ×3 (07:41→21:40)
[2021-09-05] MEDS: FLUOXETINE 10 MG CAP PO SCH (07:42)
[2021-09-05] MEDS: MAGNESIUM OXIDE 400 MG TAB PO SCH ×2 (07:42→21:00)
[2021-09-05] MEDS ORDERED: CEFTRIAXONE 1,000 MG in NA CHLORIDE 0.9% 100 ML IVPB SCH (12:00)
--- NOTE | 2021-09-05 12:43 | P.PN ---
Subjective Date of Service: 09/05/21 Chief Complaint: Chest pain Subjective: No new changes, Improving Physical Examination - Vital Signs Temperature: 97.1 F Blood Pressure: 128/82 Pulse: 65 Respirations: 18 Pulse Ox (%): 95 - Physical Exam General: Alert, Oriented x3 HEENT: Atraumatic, Normocephalic Neck: Supple Respiratory: Normal air movement Cardiovascular: Regular rate/rhythm, Normal S1 S2 Gastrointestinal: Soft and benign Musculoskeletal: No swelling Neurological: Normal speech, Normal strength at 5/5 x4 extr Assessment And Plan - Plan Chest pain rule out ACS history of CAD: work has been negative so far. we will follow closely. History of CVA with right-sided weakness: has no new issues. reported hx of seizures. Neurology following. Pt requesting change of NH for rehab. Pending case management arrangement for placement. Diabetes mellitus type 2insulin-dependent: ACHS Accu-Chek, sliding scale insulin. Hypertension: Blood pressure is poorly controlled at this time. we will continue home medications. we will adjust to achieve adequate blood pressure control. Hyperlipidemia: Continue home medications. UTI: Urine culture grew E coli. Augmentin continued for management. DVT PPX: Lovenox Code status: Full.
[2021-09-05] MEDS: ONDANSETRON 4 MG/2 ML VIAL IV PRN (14:10)
[2021-09-05] MEDS: INSULIN GLARGINE 100 UNIT/ML SQ SCH (21:00)
[2021-09-05] MEDS: AMOX/K CLAV 875 MG TAB PO SCH (21:40)
[2021-09-05] MEDS: ATORVASTATIN 80 MG TAB PO SCH (21:40)
[2021-09-06] MEDS: TRAMADOL HCL 50 MG TAB PO PRN ×2 (05:02→12:10)
[2021-09-06] MEDS: PANTOPRAZOLE 40MG TABLET PO SCH (05:02)
[2021-09-06] MEDS: ENOXAPARIN 40 MG/0.4 ML SQ SCH (07:54)
[2021-09-06] MEDS: GABAPENTIN 400 MG CAP PO SCH ×3 (07:54→20:49)
[2021-09-06] MEDS: FLUOXETINE 10 MG CAP PO SCH (07:54)
[2021-09-06] MEDS: EZETIMIBE 10 MG TAB PO SCH (07:54)
[2021-09-06] MEDS: MAGNESIUM OXIDE 400 MG TAB PO SCH ×2 (07:55→20:49)
[2021-09-06] MEDS: AMOX/K CLAV 875 MG TAB PO SCH ×2 (07:55→20:48)
[2021-09-06] MEDS: levETIRAcetam 500 MG TAB PO SCH ×2 (07:55→20:48)
[2021-09-06] MEDS: CLOPIDOGREL 75 MG TABLET PO SCH (07:55)
[2021-09-06] MEDS: ASPIRIN EC 81 MG TAB PO SCH (07:55)
[2021-09-06] MEDS: ACETAMINOPHEN 325 MG TABLET PO PRN (08:00)
[2021-09-06] MEDS: INSULIN -REGULAR HUMAN 50 UNIT/0.5 ML ML SQ SCH ×4 (08:33→20:49)
[2021-09-06] MEDS: HYDRALAZINE HCL 25 MG TABLET PO SCH ×3 (08:34→22:38)
[2021-09-06] MEDS: carvediloL 25 MG TAB PO SCH ×2 (08:34→20:50)
[2021-09-06] MEDS: lisinopriL 20 MG TAB PO SCH ×2 (08:34→22:38)
[2021-09-06] MEDS: ATORVASTATIN 80 MG TAB PO SCH (20:48)
[2021-09-06] MEDS: INSULIN GLARGINE 100 UNIT/ML SQ SCH (20:49)
--- NOTE | 2021-09-07 00:30 | PN ---
Subjective: Ms. Cortes is doing well. She is in bed. Reports some improvement in her left-sided re sidual weakness following her stroke. She has no significant changes in dysarthria or left-sided wea kness or incoordination. However, she is not ambulating due to significant left lower extremity weak ness. Objective: Vital Signs: Blood pressure 111/62, pulse 72, respiratory rate 16, temperature 97.0, oxy gen saturation 96%. General: Ms. Cortes is resting comfortably. She is in no acute distress. She does have left lower more than upper extremity weakness and mild incoordination, mild decreased sensation to light touch a nd temperature in left leg more than arm. There is mild dysarthria and no significant aphasia. Assessment: Ms. Cortes is a 51-year-old patient with a stroke and residual left-sided weakness, gait and coordination, mild dysarthria. [facility] along with speech therapy. Plan: 1.As indicated. The patient will be discharged to SNF. 2.Aspirin, Plavix, folic acid, and statin as scheduled. 3.Diabetes and blood pressure management as per her primary physician. She may be discharged and fo llow up in Dr. Coleman's clinic 1 month later. JAIMIE/FALLON Voice ID: [id number] Report ID: [id number]
[2021-09-07 02:12] VITALS: O2SAT 96
[2021-09-07] MEDS: PANTOPRAZOLE 40MG TABLET PO SCH (05:19)
[2021-09-07] MEDS: INSULIN -REGULAR HUMAN 50 UNIT/0.5 ML ML SQ SCH ×4 (08:12→21:00)
[2021-09-07] MEDS: ENOXAPARIN 40 MG/0.4 ML SQ SCH (08:13)
[2021-09-07] MEDS: EZETIMIBE 10 MG TAB PO SCH (08:13)
[2021-09-07] MEDS: GABAPENTIN 400 MG CAP PO SCH ×3 (08:13→21:40)
[2021-09-07] MEDS: ASPIRIN EC 81 MG TAB PO SCH (08:13)
[2021-09-07] MEDS: AMOX/K CLAV 875 MG TAB PO SCH ×2 (08:13→21:39)
[2021-09-07] MEDS: FLUOXETINE 10 MG CAP PO SCH (08:13)
[2021-09-07] MEDS: MAGNESIUM OXIDE 400 MG TAB PO SCH ×2 (08:14→21:00)
[2021-09-07] MEDS: HYDRALAZINE HCL 25 MG TABLET PO SCH ×3 (08:14→21:40)
[2021-09-07] MEDS: levETIRAcetam 500 MG TAB PO SCH ×2 (08:14→21:38)
[2021-09-07] MEDS: carvediloL 25 MG TAB PO SCH ×2 (08:15→21:40)
[2021-09-07] MEDS: CLOPIDOGREL 75 MG TABLET PO SCH (08:15)
[2021-09-07] MEDS: lisinopriL 20 MG TAB PO SCH ×2 (08:15→21:38)
--- NOTE | 2021-09-07 10:50 | P.PN ---
Date of Service: 09/06/21 Subjective Subjective: No new changes, Improving Physical Examination - Vital Signs reviewed - Physical Exam General: Alert, Oriented x3 Respiratory: Normal air movement Cardiovascular: Regular rate/rhythm, Normal S1 S2 Gastrointestinal: Soft and benign Musculoskeletal: No swelling Neurological: Normal speech, Normal strength at 5/5 x4 extr Assessment And Plan - Plan Chest pain rule out ACS history of CAD: Clinically doing much better History of CVA with right-sided weakness: Awaiting for SNF reassignment Diabetes mellitus type 2insulin-dependent: ACHS Accu-Chek, sliding scale insulin. Hypertension: Blood pressure is poorly controlled at this time. we will continue home medications. we will adjust to achieve adequate blood pressure control. Hyperlipidemia: Continue home medications. UTI: Urine culture grew E coli. Augmentin continued for management. DVT PPX: Lovenox Code status: Full.
--- NOTE | 2021-09-07 10:50 | P.DS ---
Discharge Date: 09/07/21 Disposition: TRANSFER TO PRISON Discharge Condition: GOOD Reason for Admission: Chest pain Brief History of Present Illness: 51-year-old female history of insulin-dependent diabetes, hypertension, hyperlipidemia, CAD status post CABG, CVA 1 month prior presents the emergency department for weakness, slurred speech. Patient had CVA 1 month prior with resulting right-sided deficits and slurred speech she is currently at [facility] for rehabilitation. She reports feeling very drowsy today the staff was concerned about some possible new right-sided weakness. Patient reports that she feels her right side is at its baseline after her CVA, she does feel drowsy as if her speech is little bit slurred, patient believes that they may have given her her nightly trazodone during the day today. Patient was also complaining about some chest pressure that she experienced this morning last about 5 minutes without any other associated signs or symptoms on exam patient was noted to have some right upper quadrant tenderness. Labs were significant for mild hyperglycemia CT head demonstrated no acute intracranial abnormalities chest x-ray demonstrated mild interstitial pulmonary edema troponin initial negative BNP 107 patient on room air ED provider wishes to admit under observation for ACS rule out. Vital Signs/Physical Exam: Temp Pulse Resp BP Pulse Ox 97.8 F 81 18 176/77 H 100 09/07/21 08:00 09/07/21 08:15 09/07/21 08:00 09/07/21 08:15 09/07/21 08:00 Laboratory Data at Discharge: WBC 9.4 K/uL (4.3-10.9) 09/01/21 03:03 Hgb 10.6 g/dL (12.0-15.0) L 09/01/21 03:03 Hct 32.2 % (36.0-45.0) L 09/01/21 03:03 Plt Count 226 K/uL (152-406) 09/01/21 03:03 PT 10.7 SECONDS (9.5-12.5) 08/31/21 16:40 INR 0.97 08/31/21 16:40 Sodium 139 mmol/L (136-145) 09/04/21 03:17 Potassium 3.6 mmol/L (3.5-5.1) 09/04/21 03:17 BUN 13 mg/dL (7-18) 09/04/21 03:17 Creatinine 0.77 mg/dL (0.55-1.3) 09/04/21 03:17 Glucose 155 mg/dL (74-106) H 09/04/21 03:17 Phosphorus 3.7 mg/dL (2.5-4.9) 09/01/21 03:05 Magnesium 2.1 mg/dL (1.8-2.4) 09/01/21 03:05 Total Bilirubin 0.3 mg/dL (0.2-1.0) 08/31/21 16:40 AST 10 U/L (15-37) L 08/31/21 16:40 ALT 19 U/L (12-78) 08/31/21 16:40 Alkaline Phosphatase 79 U/L (45-117) 08/31/21 16:40 Triglycerides 193 mg/dL (<150) H 09/01/21 03:05 Cholesterol 116 mg/dL (<200) 09/01/21 03:05 HDL Cholesterol 28 mg/dL (40-60) L 09/01/21 03:05 Cholesterol/HDL Ratio 4.14 09/01/21 03:05 Home Medications: Aspirin [Ecotrin 81 MG] 81 mg PO DAILY #30 tablet. 03/19/16 Lansoprazole [Prevacid 24Hr] 15 mg PO DAILY #30 capsule. 03/19/16 Magnesium Oxide [Mag 0X*] 400 mg PO BID #60 tab 03/19/16 Metoprolol Tartrate [Lopressor*] 50 mg PO BID #60 tab 03/19/16 Atorvastatin Calcium [Lipitor*] 80 mg PO BEDTIME 09/01/21 Carvedilol [Coreg] 25 mg PO BID 09/01/21 Clonidine HCl [Clonidine HCl ER] 0.1 mg PO Q8HR PRN 09/01/21 Clopidogrel Bisulfate [Plavix] 75 mg PO 1X 09/01/21 Ezetimibe [Zetia] 10 mg PO 1X 09/01/21 Fluoxetine HCl 10 mg PO 1X 09/01/21 Furosemide 20 mg PO 1X 09/01/21 Gabapentin 400 mg PO TID 09/01/21 Hydralazine [Apresoline*] 25 mg PO BID 09/01/21 Insulin Glargine,Hum.rec.anlog [Lantus] 38 units SQ BEDTIME 09/01/21 Insulin Lispro [Humalog] 15 units SQ AC 09/01/21 Levetiracetam [Keppra] 750 mg PO BID 09/01/21 lisinopriL [Prinivil*] 20 mg PO BID 09/01/21 Amox/Clavulanate [Augmentin 875-125 Tab*] 875 mg PO BID #14 tab 09/06/21 traMADol HCL [Ultram*] 50 mg PO TID PRN #30 tab 09/06/21 New Medications: Amox/Clavulanate [Augmentin 875-125 Tab*] 875 mg PO BID #14 tab traMADol HCL [Ultram*] 50 mg PO TID PRN #30 tab PRN Reason: Pain Scale 5-7 (Moderate) Physician Discharge Instructions: -DC IV and DC home -Follow-up with PCP in 1 to 2 weeks -Follow-up with neurology in 1 to 2 weeks -Please call Dr. Kennedy at [phone] if any questions regarding hospital stay -Please call nursing station at [phone] if any nursing or medication questions -Return to the emergency room if symptoms worsen Diet: AHA Activity: Fall precautions Followup: Rodrigo Coleman MD [ASSOCIATE-ACTIVE - CAN ADMIT] - Jonh Lara MD [Primary Care Provider] -
[2021-09-07] MEDS: TRAMADOL HCL 50 MG TAB PO PRN ×2 (12:02→21:39)
[2021-09-07] MEDS: HYDRALAZINE HCL 20 MG/ML VIAL IV PRN (16:50)
[2021-09-07] MEDS: INSULIN GLARGINE 100 UNIT/ML SQ SCH (21:41)
[2021-09-07] MEDS: ATORVASTATIN 80 MG TAB PO SCH (21:44)
[2021-09-08] MEDS: TRAMADOL HCL 50 MG TAB PO PRN (06:21)
[2021-09-08] MEDS: PANTOPRAZOLE 40MG TABLET PO SCH (06:21)
[2021-09-08] MEDS: INSULIN -REGULAR HUMAN 50 UNIT/0.5 ML ML SQ SCH ×4 (07:30→20:45)
[2021-09-08] MEDS: FLUOXETINE 10 MG CAP PO SCH (08:10)
[2021-09-08] MEDS: MAGNESIUM OXIDE 400 MG TAB PO SCH ×2 (08:10→20:43)
[2021-09-08] MEDS: lisinopriL 20 MG TAB PO SCH ×2 (08:11→20:44)
[2021-09-08] MEDS: levETIRAcetam 500 MG TAB PO SCH ×2 (08:11→20:43)
[2021-09-08] MEDS: AMOX/K CLAV 875 MG TAB PO SCH ×2 (08:11→20:42)
[2021-09-08] MEDS: ASPIRIN EC 81 MG TAB PO SCH (08:11)
[2021-09-08] MEDS: ENOXAPARIN 40 MG/0.4 ML SQ SCH (08:11)
[2021-09-08] MEDS: CLOPIDOGREL 75 MG TABLET PO SCH (08:12)
[2021-09-08] MEDS: carvediloL 25 MG TAB PO SCH ×2 (08:12→20:43)
[2021-09-08] MEDS: HYDRALAZINE HCL 25 MG TABLET PO SCH ×3 (08:12→20:44)
[2021-09-08] MEDS: GABAPENTIN 400 MG CAP PO SCH ×3 (08:14→20:44)
[2021-09-08] MEDS: EZETIMIBE 10 MG TAB PO SCH (08:16)
[2021-09-08] MEDS: HYDRALAZINE HCL 20 MG/ML VIAL IV PRN (11:33)
[2021-09-08] MEDS: cloNIDine HCL 0.1 MG TAB PO PRN (17:00)
[2021-09-08] MEDS: ONDANSETRON 4 MG/2 ML VIAL IV PRN (19:30)
[2021-09-08] MEDS: INSULIN GLARGINE 100 UNIT/ML SQ SCH (20:42)
[2021-09-08] MEDS: ATORVASTATIN 80 MG TAB PO SCH (20:42)
[2021-09-09] MEDS: PANTOPRAZOLE 40MG TABLET PO SCH (06:37)
[2021-09-09] MEDS: INSULIN -REGULAR HUMAN 50 UNIT/0.5 ML ML SQ SCH ×2 (07:30→11:30)
[2021-09-09] MEDS: MAGNESIUM OXIDE 400 MG TAB PO SCH (09:00)
[2021-09-09] MEDS: AMOX/K CLAV 875 MG TAB PO SCH (11:09)
[2021-09-09] MEDS: FLUOXETINE 10 MG CAP PO SCH (11:09)
[2021-09-09] MEDS: ASPIRIN EC 81 MG TAB PO SCH (11:09)
[2021-09-09] MEDS: lisinopriL 20 MG TAB PO SCH (11:10)
[2021-09-09] MEDS: levETIRAcetam 500 MG TAB PO SCH (11:10)
[2021-09-09] MEDS: HYDRALAZINE HCL 25 MG TABLET PO SCH ×2 (11:11→14:59)
[2021-09-09] MEDS: CLOPIDOGREL 75 MG TABLET PO SCH (11:11)
[2021-09-09] MEDS: GABAPENTIN 400 MG CAP PO SCH ×2 (11:11→14:59)
[2021-09-09] MEDS: carvediloL 25 MG TAB PO SCH (11:11)
[2021-09-09] MEDS: EZETIMIBE 10 MG TAB PO SCH (11:17)
[2021-09-09] MEDS: ENOXAPARIN 40 MG/0.4 ML SQ SCH (11:17)
[2021-09-09 12:52] VITALS: BP 154/87; TEMP 97.2
== END 2021-09-09 16:00 | disposition home health service (06) | DRG 690 ==
LOC: ER 16:02 → ERHOLD 17:40 → 2ND 09-01 13:50 → OBSVTOIN 09-01 20:20
PROVIDERS: ADMIT Internal Medicine Nephrology; ATTEND Internal Medicine Nephrology
DX: N39.0 Urinary tract infection, site not specified (principal); I69.351 Hemiplegia and hemiparesis following cerebral infarction affecting right dominant side; R07.9 Chest pain, unspecified; E11.43 Type 2 diabetes mellitus with diabetic autonomic (poly)neuropathy; K31.84 Gastroparesis; I10 Essential (primary) hypertension; E78.5 Hyperlipidemia, unspecified; I25.10 Atherosclerotic heart disease of native coronary artery without angina pectoris; I69.328 Other speech and language deficits following cerebral infarction; E11.65 Type 2 diabetes mellitus with hyperglycemia; B96.20 Unspecified Escherichia coli [E. coli] as the cause of diseases classified elsewhere; Z95.1 Presence of aortocoronary bypass graft; Z20.822 Contact with and (suspected) exposure to COVID-19
CPT/HCPCS: 36415; 51702; 70450; 71045; 76705; 80048; 80061; 80076; 80307; 81003; 81015; 82140; 82805; 82947; 83605; 83735; 83880; 84100; 84439; 84443; 84484; 85025; 85610; 87077; 87086; 87088; 87186; 93005; 94660; 96360; 97110; 97116; 97161; 97530; 99285; G0378; J0360; J1650; J1815; J2405; J7030; U0003

== ENCOUNTER 2023-01-23 15:55 | Inpatient (IN) | payer MEDICARE, OTHER ==
--- NOTE | 2023-01-23 16:30 | RAD REPORT ---
EXAM DESCRIPTION: RADChest Single View01/23/2023 4:14 pm CLINICAL HISTORY: CHEST PAIN COMPARISON: Chest Single View dated 08/31/2021; Chest Single View dated 12/17/2018; Chest Single View dated 11/16/2018; Chest Single View dated 03/18/2016; Neck Angio dated 11/16/2018 TECHNIQUE: Portable AP view of the chest. FINDINGS: The lungs are clear. Central atelectatic changes/scarring, more pronounced on the left, st able. Sequelae of prior median sternotomy. No pneumothorax or effusion. The cardiomediastinal contour s are unremarkable. IMPRESSION: No acute cardiopulmonary process. Stable findings as above.
[2023-01-23] MEDS ORDERED: ASPIRIN 81 MG CHEWABLE TABLET ONE (17:00)
[2023-01-23 17:27] LABS: Absolute Lymphocytes (CBC) 1.8 K/uL (0.7-4.9); Hematocrit 28.8 % (36.0-45.0); Lymphocytes % 21.5 % (15.3-44.8); MCV 86.6 fL (80-100); Platelets 293 thou/uL (152-406); RBC Red Blood Cell Count 3.32 M/uL (3.86-4.86)
[2023-01-23 17:29] LABS: Protime INR 1.12
[2023-01-23] MEDS ORDERED: MORPHINE 4 MG/ML SYR ONE (17:33)
[2023-01-23] MEDS ORDERED: ONDANSETRON 4 MG/2 ML VIAL ONE (17:33)
[2023-01-23 17:43] LABS: Magnesium 2.1 mg/dL (1.6-2.4); Potassium 3.9 mEq/L (3.5-5.1); Troponin High Sensitivity 10.5 pg/mL (<58.9)
[2023-01-23] MEDS ORDERED: LORazepam 2 MG/ML VIAL ONE (18:24)
--- NOTE | 2023-01-23 18:37 | ER ---
Nurse's Notes [facility] Name: Romy Cortes Age: 52 yrs Sex: Female : 1970 Arrival Date: 01/23/2023 Time: 15:55 Bed 10 Private MD: Diagnosis: Chest pain, unspecified Presentation: 01/23 16:23 Chief complaint: Left sided chest pressure that radiates to left upper back since this hb morning. Coronavirus screen: At this time, the client does not indicate any symptoms associated with coronavirus-19. Ebola Screen: No symptoms or risks identified at this time. Initial Sepsis Screen: Does the patient meet any 2 criteria? No. Patient's initial sepsis screen is negative. Does the patient have a suspected source of infection? No. Patient's initial sepsis screen is negative. Risk Assessment: Do you want to hurt yourself or someone else? Patient reports no desire to harm self or others. Onset of symptoms was January 23, 2023. 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 - Social history:: Smoking status: Patient denies any tobacco usage or history of. Screenin:00 [facility] ED Fall Risk Assessment (Adult) History of falling in the last 3 months, me1 including since admission No falls in past 3 months (0 pts) Confusion or Disorientation No (0 pts) Intoxicated or Sedated No (0 pts) Impaired Gait No (0 pts) Mobility Assist Device Used No (0 pt) Altered Elimination No (0 pt) Score/Fall Risk Level 0 - 2 = Low Risk. Abuse screen: Denies threats or abuse. Nutritional screening: No deficits noted. Tuberculosis screening: No symptoms or risk factors identified. Assessment: 16:55 General: Appears uncomfortable, obese, well groomed, well developed, Behavior is calm, me1 cooperative, appropriate for age, Reports left sided chest pain that radiates to left upper back and left arm since this morning. Reports having sob, nausea and a headache as well. Describes pain as "tight/squeezing 10/10". Pain: Complains of pain in left chest Pain radiates to left upper back and left arm Pain currently is 10 out of 10 on a pain scale. Quality of pain is described as squeezing, tight Pain began this morning. Neuro: Level of Consciousness is awake, alert, obeys commands, Oriented to person, place, time, situation, Appropriate for age. Cardiovascular: Capillary refill < 3 seconds Patient's skin is warm and dry. Respiratory: Airway is patent Respiratory effort is even, unlabored, Respiratory pattern is regular, symmetrical. 16:55 GI: Reports nausea. me1 Vital Signs: 16:23 BP 155 / 85; Pulse 68; Resp 18; Temp 97.6(TE); Pulse Ox 98% ; Weight 104.33 kg; Height hb 5 ft. 5 in. ; Pain 8/10; 18:39 BP 163 / 95; Pulse 75; Resp 18; Pulse Ox 95% on R/A; me1 20:31 BP 168 / 98; Pulse 69; Resp 12; Pulse Ox 98% on R/A; me1 16:23 Body Mass Index 38.27 (104.33 kg, 165.1 cm) hb 16:23 Pain Scale: Adult hb ED Course: 15:57 Patient arrived in ED. as 15:59 Tangela Bach FNP-C is PHCP. kb 15:59 Pradeep Bond DO is Attending Physician. kb 16:16 XRAY Chest (1 view) In Process Unspecified. EDMS 16:24 Triage completed. hb 16:25 Arm band placed on. hb 16:42 Tia Ernandez, RN is Primary Nurse. me1 17:00 Patient has correct armband on for positive identification. Placed in gown. Bed in low me1 position. Call light in reach. Side rails up X2. Provided Education on: POC. Verbalized understanding. . Client placed on continuous cardiac and pulse oximetry monitoring. NIBP monitoring applied. 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 17:00 No provider procedures requiring assistance completed. Patient maintains SpO2 me1 saturation greater than 95% on room air. 17:16 Inserted saline lock: 22 gauge in right forearm, using aseptic technique. me1 17:17 Basic Metabolic Panel Sent. me1 17:17 CBC with Diff Sent. me1 17:17 Magnesium Sent. me1 17:17 NT PRO-BNP Sent. me1 17:17 PT-INR Sent. me1 17:17 Troponin HS Sent. me1 18:37 Maximino Jones MD is Hospitalizing Provider. kb 20:48 Patient admitted, IV remains in place. me1 Administered Medications: 16:48 Drug: Aspirin PO Chewable Tablet 324 mg PO once; 81 mg tablets x 4 Route: PO; me1 17:17 Follow up: Response: No adverse reaction me1 17:25 Drug: morphine IVP or IV 4 mg IVP once over 4 mins Route: IVP; Infused Over: 4 mins; me1 Site: right forearm; 18:08 Follow up: Response: No adverse reaction; Pain is decreased me1 17:25 Drug: Ondansetron IVP 4 mg IVP once; over 2 minutes Route: IVP; Site: right forearm; me1 18:08 Follow up: Response: No adverse reaction; Nausea is decreased me1 18:14 Drug: Ativan IVP 1 mg IVP once Route: IVP; Site: right forearm; me1 18:40 Follow up: Response: No adverse reaction; Anxiety decreased me1 18:43 Drug: Lisinopril PO 40 mg PO once Route: PO; me1 20:32 Follow up: Response: No adverse reaction me1 Medication: 17:01 VIS not applicable for this client. me1 Outcome: 18:37 Decision to Hospitalize by Provider. kb 20:47 Admitted to Med/surg accompanied by tech, via stretcher, room 205, with chart, Report me1 called to KIAN Steven 20:47 Condition: stable 20:47 Instructed on the need for admit, 21:24 Patient left the ED. as6 Signatures: Dispatcher [employer] EDTangela Du, NAHUN DO-Leslie Snowden as Selina Dowling, Donald Hines RN, RN RN as6 Tia Ernandez RN RN me1 Corrections: (The following items were deleted from the chart) 16:25 16:23 Pulse 68bpm; Resp 18bpm; Pulse Ox 98%; Temp 97.6F Temporal; 104.33 kg; Height 5 hb ft. 5 in.; BMI: 38.2; Pain 8/10, Adult; hb
--- NOTE | 2023-01-23 18:37 | EDPHYS ---
Physician Documentation [facility] Name: Romy Cortes Age: 52 yrs Sex: Female : 1970 Arrival Date: 01/23/2023 Time: 15:55 Bed 10 Private MD: ED Physician Pradeep Bond HPI: 01/23 16:04 This 52 yrs old Black Female presents to ER via Unassigned with complaints of Chest kb Pain, Back Pain, Neck Pain, <24hrs Old. 16:04 The patient or guardian reports chest pain that is located primarily in the anterior kb chest wall, left. Onset: this morning. The pain does not radiate. Associated signs and symptoms: Pertinent positives: headache. The chest pain is described as a pressure. Duration: The patient or guardian reports a single episode, that is still ongoing. Modifying factors: The symptoms are alleviated by nothing. the symptoms are aggravated by nothing. Severity of pain: At its worst the pain was moderate in the emergency department the pain is unchanged. The patient has not experienced similar symptoms in the past. The patient has not recently seen a physician. Pt reports chest, neck, head and back pain that started this morning. States pain is constant, nothing making it better or worse. Denies fever, shortness of breath, cough. . 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 - Social history:: Smoking status: Patient denies any tobacco usage or history of. ROS: 16:04 Constitutional: Negative for fever, chills, and weight loss, kb 16:04 Neck: Positive for pain at rest, 16:04 Cardiovascular: Positive for chest pain, 16:04 Back: Positive for pain at rest, 16:04 Neuro: Positive for headache, 16:04 All other systems are negative, Exam: 16:04 Constitutional: This is a well developed, well nourished patient who is awake, alert, kb and in no acute distress. Head/Face: Normocephalic, atraumatic. ENT: Moist Mucous membranes Cardiovascular: Regular rate Respiratory: Respirations even and unlabored. No increased work of breathing. Talking in full sentences Abdomen/GI: Soft, non-tender. No distention Skin: Warm, dry with normal turgor. Normal color. 16:04 Neuro: Exam negative for acute changes, 16:59 ECG was reviewed by the Attending Physician. kb Vital Signs: 16:23 BP 155 / 85; Pulse 68; Resp 18; Temp 97.6(TE); Pulse Ox 98% ; Weight 104.33 kg; Height hb 5 ft. 5 in. ; Pain 8/10; 18:39 BP 163 / 95; Pulse 75; Resp 18; Pulse Ox 95% on R/A; me1 20:31 BP 168 / 98; Pulse 69; Resp 12; Pulse Ox 98% on R/A; me1 16:23 Body Mass Index 38.27 (104.33 kg, 165.1 cm) hb 16:23 Pain Scale: Adult hb MDM: 15:59 Patient medically screened. kb 16:06 Differential diagnosis: abnormal EKG, acute myocardial infarction, coronary artery kb disease chest wall pain. The patient was given aspirin in the Emergency Department. Data reviewed: vital signs, nurses notes. 17:54 Consideration of Admission/Observation Patient was admitted/placed on observation. kb Escalation of care including admission/observation considered. Counseling: I had a detailed discussion with the patient and/or guardian regarding the historical points, exam findings, and any diagnostic results supporting the discharge/admit diagnosis, lab results, radiology results, the need for further work-up and treatment in the hospital. 18:27 Management of patient was discussed with the following: Hospitalist: LOUISE Springer accepts kb pt for admission under Dr Jones. 01/23 16:04 Order name: Basic Metabolic Panel; Complete Time: 17:51 kb 01/23 16:04 Order name: CBC with Diff; Complete Time: 17:32 kb 01/23 16:04 Order name: Magnesium; Complete Time: 17:51 kb 01/23 16:04 Order name: NT PRO-BNP; Complete Time: 17:51 kb 01/23 16:04 Order name: PT-INR; Complete Time: 17:30 kb 01/23 16:04 Order name: Troponin HS; Complete Time: 17:51 kb 01/23 16:04 Order name: XRAY Chest (1 view); Complete Time: 16:36 kb 01/23 16:04 Order name: EKG; Complete Time: 16:05 kb 01/23 18:45 Order name: CONS Physician Consult EDMS 01/23 16:04 Order name: Cardiac monitoring; Complete Time: 17:16 kb 01/23 16:04 Order name: EKG - Nurse/Tech; Complete Time: 17:16 kb 01/23 16:04 Order name: IV Saline Lock; Complete Time: 17:16 kb 01/23 16:04 Order name: Labs collected and sent; Complete Time: 17:16 kb 01/23 16:04 Order name: O2 Per Protocol; Complete Time: 17:16 kb 01/23 16:04 Order name: O2 Sat Monitoring; Complete Time: 17:17 kb Administered Medications: 16:48 Drug: Aspirin PO Chewable Tablet 324 mg PO once; 81 mg tablets x 4 Route: PO; me1 17:17 Follow up: Response: No adverse reaction me1 17:25 Drug: morphine IVP or IV 4 mg IVP once over 4 mins Route: IVP; Infused Over: 4 mins; me1 Site: right forearm; 18:08 Follow up: Response: No adverse reaction; Pain is decreased me1 17:25 Drug: Ondansetron IVP 4 mg IVP once; over 2 minutes Route: IVP; Site: right forearm; me1 18:08 Follow up: Response: No adverse reaction; Nausea is decreased me1 18:14 Drug: Ativan IVP 1 mg IVP once Route: IVP; Site: right forearm; me1 18:40 Follow up: Response: No adverse reaction; Anxiety decreased me1 18:43 Drug: Lisinopril PO 40 mg PO once Route: PO; me1 20:32 Follow up: Response: No adverse reaction me1 Disposition: 18:42 I was immediately available on-site in the Emergency Department for consultation in the ms3 care of the patient. Disposition Summary: 01/23/23 18:37 Hospitalization Ordered Notes: Hospitalization Status: Observation kb Provider: Maximino Jones Location: Telemetry/MedSurg (observation) kb Condition: Stable kb Problem: new kb Symptoms: are unchanged kb Bed/Room Type: Standard Room Assignment: 205(01/23/23 20:04) Diagnosis - Chest pain, unspecified kb Forms: - Medication Reconciliation Form kb - SBAR form kb - Leadership Thank You Letter kb Signatures: Dispatcher [employer] Tangela Dixon FNP-Curtis DO-Joellen Metcalf, KIAN RN Selina Dowling RN RN Pradeep Bond, DO ms3 Tia Ernandez RN RN me1 Corrections: (The following items were deleted from the chart) 18:35 16:59 Rate is 76 beats/min. Rhythm is regular. QRS [place] is Normal. PA interval is cm12 normal at 118 msec. QRS interval is normal at 76 msec. QT interval is normal at 463 msec. kb 20:04 18:37 kb
--- NOTE | 2023-01-23 18:40 | P.HP ---
Certification for Inpatient Patient admitted to: Inpatient With expected LOS: <2 Midnights Patient will require the following post-hospital care: None Practitioner: I am a practitioner with admitting privileges, knowledge of patient current condition, hospital course, and medical plan of care. Services: Services provided to patient in accordance with Admission requirements found in Title 42 Section 412.3 of the Code of Federal Regulations Patient History Date of Service: 01/24/23 History of Present Illness: 52-year-old -[place] Citizen female with a past medical history hypertension, CAD, PCI x2, CABG, insulin-dependent diabetes mellitus, presents to the emergency room with chest pain. She reports chest pain started today around 8 AM radiates to the left arm reports associated nausea, no vomiting. She reports associated back and neck pain. No reported fever. She denies history of congestive heart failure. She denies recent injury. ,Plan to admit for chest pain rule out MD, elevated BNP uncontrolled hyperglycemia. Laboratory evaluation normocytic anemia 9.4, 28.8, mild hyponatremia 134, acute kidney injury BUN 15 creatinine 1.10, estimated GFR 60 blood glucose 377 BNP 1948 troponin normal at 10.5, chest x-ray IMPRESSION: No acute cardiopulmonary process. Stable findings as above assessment plan. EKG normal sinus rhythm rate 76,.Rate is 76 beats/min. Rhythm is regular. QRS [place] is Normal. [place] interval is cm12 normal at 118 msec. QRS interval is normal at 76 msec. QT interval is normal at 463 msec. Allergies No Known Allergies Allergy (Verified 03/17/16 15:34) Home Medications: Aspirin [Ecotrin 81 MG] 81 mg PO DAILY #30 tablet. 03/19/16 Lansoprazole [Prevacid 24Hr] 15 mg PO DAILY #30 capsule. 03/19/16 Magnesium Oxide [Mag 0X*] 400 mg PO BID #60 tab 03/19/16 Metoprolol Tartrate [Lopressor*] 50 mg PO BID #60 tab 03/19/16 Atorvastatin Calcium [Lipitor*] 80 mg PO BEDTIME 09/01/21 Carvedilol [Coreg] 25 mg PO BID 09/01/21 Clopidogrel Bisulfate [Plavix] 75 mg PO 1X 09/01/21 Ezetimibe [Zetia] 10 mg PO 1X 09/01/21 Fluoxetine HCl 10 mg PO 1X 09/01/21 Furosemide 20 mg PO 1X 09/01/21 Gabapentin 400 mg PO TID 09/01/21 Hydralazine [Apresoline*] 25 mg PO BID 09/01/21 Insulin Glargine,Hum.rec.anlog [Lantus] 38 units SQ BEDTIME 09/01/21 Insulin Lispro [Humalog] 15 units SQ AC 09/01/21 Levetiracetam [Keppra] 750 mg PO BID 09/01/21 cloNIDine HCL [Clonidine HCl ER] 0.1 mg PO Q8HR PRN 09/01/21 lisinopriL [Prinivil*] 20 mg PO BID 09/01/21 Amox/Clavulanate [Augmentin 875-125 Tab*] 875 mg PO BID #14 tab 09/06/21 traMADol HCL [Ultram*] 50 mg PO TID PRN #30 tab 09/06/21 - Past Medical/Surgical History Diabetic: Yes -: hyperlipidemia -: hypertension -: Type 2 diabetes -: CVA -: CAD status post CABG -: Obesity -: hysterectomy -: hypertension -: tonsilectomy -: -: lumber spinal fusion -: cardiac stents x 2 2016 -: Gastric pacemaker/gastroparesis Psychosocial/ Personal History: Patient currently at [facility] for rehab after CVA - Family History Father -: Heart disease, Hypertension, Diabetes, Stroke Mother Notes: no medical history - Social History Alcohol use: No CD- Drugs: No Caffeine use: No Review of Systems 10-point ROS is otherwise unremarkable Physical Examination - Physical Exam General: Alert, In no apparent distress, Oriented x3 HEENT: Atraumatic, Normocephalic, PERRLA Neck: Supple, 2+ carotid pulse no bruit, JVD not distended Respiratory: Clear to auscultation bilaterally, Normal air movement Cardiovascular: No edema, Normal pulses, Regular rate/rhythm Capillary refill: <2 Seconds Gastrointestinal: Normal bowel sounds, Soft and benign Musculoskeletal: No clubbing, No swelling Integumentary: No rashes, No breakdown Neurological: Normal gait, Normal speech, Normal strength at 5/5 x4 extr - Studies Laboratory Data (last 24 hrs) 01/23/23 01/23/23 01/23/23 17:15 17:15 17:15 WBC 8.30 Hgb 9.4 L Hct 28.8 L Plt Count 293 PT 12.3 INR 1.12 Sodium 134 L Potassium 3.9 BUN 15 Creatinine 1.10 H Glucose 377 H Magnesium 2.1 Assessment and Plan - Plan Assessment plan Chest pain rule out MD Elevated BNP Acute kidney injury Mild hyponatremia Diabetes uncontrolled with hyperglycemia Normocytic anemia Hypertensive Hyperlipidemia DVT prophylaxis Chest pain rule out ACS history of CAD: Elevated troponin Cardiology consult Trend troponin trend BMP Monitor on telemetry, continue home medications. BNP 1948 troponin normal at 10.5, Lasix 40 IV twice daily EKG normal sinus rhythm rate 76,.Rate is 76 beats/min. Rhythm is regular. QRS [place] is Normal. [place] interval is cm12 normal at 118 msec. QRS interval is normal at 76 msec. QT interval is normal at 463 msec. chest x-ray IMPRESSION: No acute cardiopulmonary process. Stable findings as above assessment plan. Acute kidney injury acute kidney injury BUN 15 creatinine 1.10, estimated GFR 60 Normocytic anemia. normocytic anemia 9.4, 28.8, Hyponatremia mild hyponatremia 134, History of CVA with right-sided weakness: Continue home medications, patient feels as if her weakness in the right upper and lower extremity are at their baseline after her CVA 1 month prior. She believes she had a dose of her trazodone during the day which she typically takes at night and this is why she has been feeling more drowsy. We will hold trazodone for this evening monitor closely, low threshold for MRI in the morning. Diabetes mellitus type 2insulin-dependent:-Uncontrolled ACH S Accu-Chek, sliding scale insulin blood glucose 377 Hypertension: Continue home medications Hyperlipidemia: Continue home medications Diet n.p.o. after midnight Full code DVT heparin Discharge Plan: Home Plan to discharge in: 48 Hours - Advance Directives Does patient have a Living Will: No Does patient have a Durable POA for Healthcare: No - Code Status/Comfort Care Code Status: Full Code Physician Review: Patient Assessed, Agree with Above Assessment and Plan Critical Care: No Time Spent Managing Pts Care (In Minutes): 50
[2023-01-23] MEDS ORDERED: lisinopriL 20 MG TAB ONE (18:55)
[2023-01-23] MEDS ORDERED: cloNIDine HCL 0.1 MG TAB PO PRN (20:50)
[2023-01-23] MEDS ORDERED: ONDANSETRON 4 MG/2 ML VIAL IV PRN (20:50)
[2023-01-23] MEDS ORDERED: ACETAMINOPHEN 500 MG TAB PO PRN (20:50)
[2023-01-23] MEDS ORDERED: HYDRALAZINE HCL 20 MG/ML VIAL IV PRN (20:50)
[2023-01-23] MEDS ORDERED: METOPROLOL TARTRATE 5 MG/5 ML INJ IV PRN (20:50)
[2023-01-23] MEDS ORDERED: INSULIN GLARGINE 100 UNIT/ML SQ SCH (21:00)
[2023-01-23] MEDS: HYDRALAZINE HCL 25 MG TABLET PO SCH (21:00)
[2023-01-23] MEDS: METOPROLOL TAR 50 MG TAB PO SCH (21:00)
[2023-01-23 22:06] VITALS: BMI 37.6
[2023-01-23] MEDS: carvediloL 25 MG TAB PO SCH (22:20)
[2023-01-23] MEDS: INSULIN REGULAR (HUMAN) 100 UNIT/ML SQ SCH (22:22)
[2023-01-23] MEDS: MORPHINE 2 MG/ML SYR IV PRN (22:23)
[2023-01-23] MEDS ORDERED: HYDRALAZINE HCL 25 MG TABLET PO ONE (23:00)
[2023-01-23] MEDS ORDERED: INSULIN GLARGINE 100 UNIT/ML SQ ONE (23:00)
[2023-01-23] MEDS ORDERED: METOPROLOL TAR 50 MG TAB PO ONE (23:00)
[2023-01-24] MEDS: MORPHINE 2 MG/ML SYR IV PRN ×2 (05:09→21:04)
[2023-01-24 06:01] LABS: Specific Gravity 1.021 (1.005-1.030); Urine Bacteria None Seen /HPF (<20); Urine Bilirubin NEGATIVE (Negative); Urine Blood Negative (Negative); Urine Clarity Extremely Turbid (Clear); Urine Color Light-Yellow (Yellow); Urine Glucose 4+ (Over) (Negative); Urine Protein 1+ (Negative); Urine RBC None Seen /HPF (None Seen); Urine Urobilinogen Normal (Normal); Urine pH 5.5 (5.0-7.0)
[2023-01-24 06:41] LABS: Albumin 3.1 g/dL (3.4-5.0); Bilirubin Total 0.3 mg/dL (0.2-1.0); Potassium 3.6 mEq/L (3.5-5.1); Protein, Total 7.6 g/dL (6.4-8.2); Troponin High Sensitivity 7.9 pg/mL (<58.9)
[2023-01-24] MEDS ORDERED: PNEUMOCOCCAL VACCINE 0.5 ML IMVAC ONE (09:00)
[2023-01-24] MEDS ORDERED: POTASSIUM CL SA 10 MEQ TAB PO ONE (09:00)
[2023-01-24] MEDS: HEPARIN 5000 UNIT/ML 1 ML VIAL SQ SCH ×2 (09:41→17:05)
[2023-01-24] MEDS: INSULIN REGULAR (HUMAN) 100 UNIT/ML SQ SCH ×4 (09:41→21:00)
[2023-01-24] MEDS: FUROSEMIDE 40 MG/4 ML VIAL IV SCH ×2 (09:41→17:06)
[2023-01-24] MEDS: ASPIRIN 325 MG TAB PO SCH (09:42)
[2023-01-24] MEDS: carvediloL 25 MG TAB PO SCH ×2 (09:42→17:06)
[2023-01-24] MEDS: LORazepam 2 MG/ML VIAL IV PRN ×2 (09:42→21:04)
[2023-01-24] MEDS: METOPROLOL TAR 50 MG TAB PO SCH ×2 (09:42→21:03)
[2023-01-24] MEDS: HYDRALAZINE HCL 25 MG TABLET PO SCH ×2 (09:42→21:03)
--- NOTE | 2023-01-24 10:11 | CON ---
Date of Consultation: 01/24/2023 Reason For Consultation: Chest pain. History Of Present Illness: A 52-year-old female, history of coronary artery disease, status post CA BG and PCI x2, diabetes, presented with chest pain, sharp in the left upper extremity. No nausea or vomiting. No fever. No diaphoresis. Pain is not exertional and short-lived. Denies having any act lul chest pain since yesterday and has been completely asymptomatic. Past Medical History: As outlined above in the HPI. Medications: Refer reconciliation sheet for detailed list. Allergies: NO KNOWN DRUG ALLERGIES. Family History: No premature coronary artery disease or cancer. Social History: She does not smoke or drink. Does not use any drugs. Review of Systems: All systems reviewed and they were negative except as mentioned in HPI. Physical Examination: Vital Signs: Reviewed. Head and Neck: Pupils are equal, reactive to light. Intact eye movements. No JVD. No cervical nod es. Neck is supple. Thyroid is not enlarged. Lungs: Clear to auscultation bilaterally. No rhonchi, rales, or crackles. No accessory muscle use. Heart: Regular rate and rhythm. No extra sounds. Abdomen: Soft, nontender. Bowel sounds positive. No organomegaly. No masses or hernia. No rigidi ty or rebound. Extremities: No edema, clubbing, cyanosis. Intact pulses. Skin: No rashes. Neurologic: Alert, awake, oriented x3. No acute focal deficits appreciated. Lymph nodes: No cervical lymphadenopathy. Investigations: Cardiac enzymes x3 are negative. BUN is 14, creatinine 1.0, and hemoglobin is 9.4. Assessment/recommendation: 1.Chest pain. No history of coronary artery disease. Cardiac enzymes are negative. Pain is atypic al. Patient can be released from Cardiology standpoint. We will plan for an outpatient stress test and an echo. 2.Hypertension. Blood pressure on arrival was high and it is elevated this morning. Recommend to s tart lisinopril 10 mg daily. 3.Congestive heart failure. This is probably chronic. She is on IV Lasix. Obtain an echo to [facility] assess. SR/MODL Voice ID: [id number] Report ID: [id number]
--- NOTE | 2023-01-24 12:51 | EKG ---
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
--- NOTE | 2023-01-24 17:41 | P.PN ---
Subjective Date of Service: 01/24/23 Patient has no new complaint today. She denies any chest pain. Physical Examination - Vital Signs Temperature: 97.1 F Blood Pressure: 118/58 Pulse: 50 Respirations: 16 Pulse Ox (%): 100 - Studies Laboratory Data (last 24 hrs) 01/23/23 01/23/23 17:15 17:15 WBC 8.30 Hgb 9.4 L Hct 28.8 L Plt Count 293 Sodium 134 L Potassium 3.9 BUN 15 Creatinine 1.10 H Glucose 377 H Magnesium 2.1 Assessment And Plan - Plan Physical Exam General: Alert, In no apparent distress, Oriented x3 HEENT: Atraumatic, Normocephalic, PERRLA Neck: Supple, 2+ carotid pulse no bruit, JVD not distended Respiratory: Clear to auscultation bilaterally, Normal air movement Cardiovascular: No edema, Normal pulses, Regular rate/rhythm Gastrointestinal: Normal bowel sounds, Soft and benign Musculoskeletal: No clubbing, No swelling Integumentary: No rashes, No breakdown Neurological: Normal gait, Normal speech, Normal strength at 5/5 x4 extr Diagnosis Chest pain. Acute kidney injury Mild hyponatremia Diabetes uncontrolled with hyperglycemia Normocytic anemia Hypertensive Hyperlipidemia Chest pain/History of CAD: Troponin trended negative Cardiology input appreciated. continue home medications-aspirin and Coreg Acute diastolic heart failure Markedly elevated BNP. Chest x-ray looks clear. Continue IV Lasix Cardiology input appreciated Echocardiogram ordered to reevaluate her EF. Normocytic anemia. Stable Hyponatremia Resolved. History of CVA with right-sided weakness: Stable. Diabetes mellitus type 2insulin-dependent:-Uncontrolled ACH S Accu-Chek, sliding scale insulin. Hypoglycemia episode this evening. Hold Lantus insulin. Hypertension: Continue home medications Hyperlipidemia: Continue home medications Diet n.p.o. after midnight Full code DVT heparin Discharge Plan: Home
[2023-01-25] MEDS: LORazepam 2 MG/ML VIAL IV PRN ×4 (01:34→21:22)
[2023-01-25] MEDS: HEPARIN 5000 UNIT/ML 1 ML VIAL SQ SCH ×3 (01:34→17:11)
[2023-01-25] MEDS: MORPHINE 2 MG/ML SYR IV PRN ×4 (01:34→21:22)
[2023-01-25] MEDS ORDERED: REGADENOSON 0.4 MG/5 ML SYR IV ONE (07:31)
--- NOTE | 2023-01-25 08:15 | RAD REPORT ---
EXAM DESCRIPTION: NM - Rest Stress Cardiac Imaging - 01/25/2023 8:04 am CLINICAL HISTORY: CAD with chest pain Chest pain. COMPARISON: No comparisons TECHNIQUE: The patient was administered approximately 10mCi of Tc 99m Sestamibi prior to resting SPE CT imaging of the heart. The patient was then administered approximately 30 mCi of Tc 99m Sestamibi f ollowing exercise or pharmacologic stress. Multiplanar SPECT images were reviewed. FINDINGS: There is a moderate sized, mild area of stress-induced ischemia suspected involving the le ft ventricular lateral wall. No fixed defect is seen to suggest hibernating myocardium or scarred kimberlyn cardium. The end diastolic volume is 91 ml, the end systolic volume is 41 ml, and the ejection fraction is 55 %. IMPRESSION: Moderate-sized mild area of stress-induced ischemia suspected involving the lateral wall .
[2023-01-25 09:54] LABS: Absolute Lymphocytes (CBC) 1.8 K/uL (0.7-4.9); Lymphocytes % 18.4 % (15.3-44.8); MCV 86.3 fL (80-100); MPV 10.3 fL (7.6-11.3); Platelets 263 thou/uL (152-406)
[2023-01-25] MEDS: METOPROLOL TAR 50 MG TAB PO SCH ×2 (09:56→21:21)
[2023-01-25] MEDS: HYDRALAZINE HCL 25 MG TABLET PO SCH ×2 (09:58→21:22)
[2023-01-25] MEDS: carvediloL 25 MG TAB PO SCH ×2 (09:58→17:11)
[2023-01-25] MEDS: INSULIN REGULAR (HUMAN) 100 UNIT/ML SQ SCH ×4 (09:59→21:00)
[2023-01-25] MEDS: FUROSEMIDE 40 MG/4 ML VIAL IV SCH ×2 (10:00→17:11)
[2023-01-25] MEDS: ASPIRIN 325 MG TAB PO SCH (10:00)
[2023-01-25 10:06] LABS: Potassium 4.2 mEq/L (3.5-5.1)
--- NOTE | 2023-01-25 12:57 | P.PN ---
Subjective Date of Service: 01/25/23 Patient has no new complaint today. She denies any chest pain. She is maintained on 2 L oxygen by nasal cannula. Physical Examination - Vital Signs Temperature: 96.5 F Blood Pressure: 174/79 Pulse: 67 Respirations: 18 Pulse Ox (%): 100 Assessment And Plan - Plan Physical Exam General: Alert, In no apparent distress, Oriented x3 Neck: Supple, JVD not distended Respiratory: Clear to auscultation bilaterally, Normal air movement Cardiovascular: No edema, Normal pulses, Regular rate/rhythm Gastrointestinal: Normal bowel sounds, Soft and benign Musculoskeletal: No clubbing, No swelling Integumentary: No rashes, No breakdown Neurological: Normal gait, Normal speech, Normal strength at 5/5 x4 extr Diagnosis Chest pain. Acute kidney injury Mild hyponatremia Diabetes uncontrolled with hyperglycemia Normocytic anemia Hypertensive Hyperlipidemia Chest pain/History of CAD: Troponin trended negative Cardiology input appreciated. continue home medications-aspirin and Coreg. Stress test resulted positive for stress-induced ischemia. Cardiology Dr. Floyd is planning cardiac catheterization tomorrow. Acute diastolic heart failure Markedly elevated BNP. Chest x-ray looks clear. Continue IV Lasix Cardiology input appreciated Echocardiogram result is pending. Normocytic anemia. Stable Hyponatremia Resolved. History of CVA with right-sided weakness: Stable. Diabetes mellitus type 2insulin-dependent:-Uncontrolled ACH S Accu-Chek, sliding scale insulin. Hypoglycemia episode yesterday. Patient is hyperglycemic now Resume Lantus insulin at 15 units daily. Hypertension: Continue home medications Hyperlipidemia: Continue home medications Full code DVT heparin Discharge Plan: Home
[2023-01-25] MEDS: INSULIN GLARGINE 100 UNIT/ML SQ SCH (13:37)
--- NOTE | 2023-01-25 18:37 | PN ---
Date of Progress Note: 01/25/2023 Subjective: Seen by bedside. Is doing clinically well. Continues to have on and off chest pain. Review of Systems: No nausea, vomiting, diarrhea. No fever. Has chest pain on and off since admission. No nausea, vom iting, or diaphoresis. All other systems reviewed and they were negative. Objective: Vital signs: Reviewed. Head and Neck: Pupils are equal, reactive to light. Intact eye movements. No JVD. No cervical lym phadenopathy. Neck is supple. Thyroid is not enlarged. Lungs: Clear to auscultation bilaterally. No rhonchi, wheezing, or crackles. No accessory muscle u se. Heart: Regular rate and rhythm. No extra sounds. Abdomen: Soft, nontender. Bowel sounds positive. No organomegaly. No masses or hernia. No rigidi ty or rebound. Extremities: No clubbing, cyanosis. Intact pulses. Skin: No rash. Neurologic: Alert, awake, oriented x3. No acute focal deficits appreciated. Investigations: Labs were reviewed. Stress test was positive for moderate-sized ischemia. Assessment And Recommendations: 1.Chest pain with positive stress test. Keep n.p.o. past midnight. Plan for coronary angiogram. 2.Hypertension. Blood pressure is controlled. Continue current management. 3.Chronic congestive heart failure. She appears to be euvolemic at the present time clinically and her ejection fraction is normal on echo. Ischemia evaluation with heart catheterization as above is recommended and planned for tomorro w. /FALLON Voice ID: [id number] Report ID: [id number]
[2023-01-26] MEDS: HEPARIN 5000 UNIT/ML 1 ML VIAL SQ SCH ×3 (01:00→16:42)
[2023-01-26 02:56] LABS: Potassium 3.4 mEq/L (3.5-5.1)
[2023-01-26 03:07] LABS: Absolute Lymphocytes (CBC) 2.5 K/uL (0.7-4.9); Hematocrit 30.8 % (36.0-45.0); MPV 10.3 fL (7.6-11.3); Platelets 253 thou/uL (152-406); RBC Red Blood Cell Count 3.58 M/uL (3.86-4.86)
[2023-01-26] MEDS: INSULIN REGULAR (HUMAN) 100 UNIT/ML SQ SCH ×4 (07:30→21:22)
--- NOTE | 2023-01-26 07:33 | ECHO ---
HEIGHT: 5 ft 5 in WEIGHT: 226 lb 6 oz DATE OF STUDY: 01/25/[address]: Elia Floyd 2-DIMENSIONAL: YES M.MODE: YES DOPPLER: YES COLOR FLOW: YES TDS: PORTABLE: YES DEFINITY: BUBBLE STUDY: DIAGNOSIS: CONGESTIVE HEART FAILURE CARDIAC HISTORY: CATHERIZATION: YES SURGERY: YES PROSTHETIC VALVE: NO PACEMAKER: NO MEASUREMENTS (cm) DIASTOLIC (NORMALS) SYSTOLIC (NORMALS) IVSd 1.2 (0.6-1.2) LA Diam 2.8 (1.9-4.0) LVEF 56% LVIDd 3.6 (3.5-5.7) LVIDs 2.6 (2.0-3.5) %FS 29% LVPWd 1.3 (0.6-1.2) Ao Diam 2.6 (2.0-3.7) 2 DIMENSIONAL ASSESSMENT: RIGHT ATRIUM: NORMAL LEFT ATRIUM: NORMAL RIGHT VENTRICLE: NORMAL LEFT VENTRICLE: LEFT VENTRICULAR HYPERTROPHY TRICUSPID VALVE: NORMAL MITRAL VALVE: NORMAL PULMONIC VALVE: NORMAL AORTIC VALVE: NORMAL PERICARDIAL EFFUSION: NONE AORTIC ROOT: NORMAL LEFT VENTRICULAR WALL MOTION: NORMAL DOPPLER/COLOR FLOW: APPEARS NORMAL COMMENTS: 1. POOR WINDOWS 2. OVERALL LEFT VENTRICULAR EJECTION FRACTION IS NORMAL 55-60% TECHNOLOGIST: ALEENA HAMPTON
--- NOTE | 2023-01-26 07:52 | TREADPHA ---
DX: CHEST PAIN Date of Study: 01/25/2023 Ht: 5' 5 " Wt: 226 lb 6 oz Consulting Physician: RHODA MEDICATIONS: TYLENOL, MITESH ASPIRIN, COREG, CATAPRES, LASIX, HEPARIN, APRESOLINE, NOVOLIN-R, ATIVAN, LOPRESSOR, MORPHINE, ZOFRAN HISTORY: 52 YEAR OLD FEMALE WITH COMPLAINTS OF CHEST PAIN. HISTORY OF HYPERTENSION, CORONARY ARTERY DISEASE, CORONARY ARTERY BYPASS GRAFT, DIABETERS MELLITUS, HYPERLIPIDEMIA. PATIENT STATES ALLERGY TO AMLODIPINE PHYSICIAL EXAMINATION: RESTING B.P.: 134/71 RESTING H.R.: 59 RESTING EKG: SINUS RHYTHM WITH T WAVE DEPRESSION IS INFERIOR LATERAL LEADS PROTOCOL: PHARMACOLOGIC EXERCISE TIME: 3:30 B.P. AT PEAK STRESS: 109/59 IMPRESSION: LEXISCAN INJECTED. CARDIOLITE INJECTED - SEE NUCLEAR MEDICINE REPORT. NO SUPRAVENTRICULAR TACHYCARDIA, VENTRICULAR TACHYCARDIA, PREMATURE ATRIAL COMPLEXES, PREMATURE VENTRICULAR COMPLEXES NOTED. PATIENT DENIES CHEST PAIN. PATIENT STATES SLIGHT HEADACHE IN RECOVERY. NON-DIAGNOSTIC ELECTROCARDIOGRAM PART DUE TO ABNORMAL BASELINE.
[2023-01-26] MEDS ORDERED: POTASSIUM CL SA 10 MEQ TAB PO ONE (09:00)
--- NOTE | 2023-01-26 09:23 | RAD REPORT ---
EXAM DESCRIPTION: CT - Ct Stroke Brain Wo Cont - 01/26/2023 9:06 am CLINICAL HISTORY: Stroke Protocol COMPARISON: Head Brain Wo Cont dated 08/31/2021; Head angio dated 12/17/2018; Ct Stroke Brain Wo Cont dated 12/17/2018 TECHNIQUE: Noncontrast head CT images were obtained without IV contrast. Multiplanar reformats were generated and reviewed. All CT scans are performed using dose optimization technique as appropriate and may include automated exposure control or mA/KV adjustment according to patient size. FINDINGS: No intracranial hemorrhage, mass, or edema. Midline structures are unremarkable. Stable ventricular caliber, with mild diffuse parenchymal volume loss. Encephalomalacia involving the caudate body and right internal capsule, stable. Harmon-white matter differentiation is preserved, without evidence of acute infarct. No abnormal extra- axial fluid collections. Mastoid air cells and visualized portions of the paranasal sinuses are clear. No acute bony findings. IMPRESSION: No evidence of an acute intracranial process. Chronic findings as above. The findings were communicated to Arnaldo Freitas on 01/26/2023 at 09:11 hours.
[2023-01-26 09:24] LABS: Absolute Lymphocytes (CBC) 1.8 K/uL (0.7-4.9); Hematocrit 32.9 % (36.0-45.0); Lymphocytes % 21.3 % (15.3-44.8); MCV 86.8 fL (80-100); Platelets 279 thou/uL (152-406)
[2023-01-26 09:41] LABS: Albumin 3.3 g/dL (3.4-5.0); Bilirubin Total 0.4 mg/dL (0.2-1.0); Potassium 3.8 mEq/L (3.5-5.1); Troponin High Sensitivity 7.4 pg/mL (<58.9)
[2023-01-26] MEDS: carvediloL 25 MG TAB PO SCH ×2 (09:46→16:42)
[2023-01-26] MEDS: METOPROLOL TAR 50 MG TAB PO SCH ×2 (09:46→21:22)
[2023-01-26] MEDS: HYDRALAZINE HCL 25 MG TABLET PO SCH ×2 (09:46→21:14)
[2023-01-26] MEDS: FUROSEMIDE 40 MG/4 ML VIAL IV SCH ×2 (09:46→16:42)
[2023-01-26] MEDS: ASPIRIN 325 MG TAB PO SCH (09:46)
[2023-01-26] MEDS: INSULIN GLARGINE 100 UNIT/ML SQ SCH (09:47)
[2023-01-26] MEDS: MORPHINE 2 MG/ML SYR IV PRN ×3 (09:48→21:14)
[2023-01-26 10:30] LABS: Protime INR 1.05
[2023-01-26] MEDS: LORAZEPAM 1 MG TABLET PO PRN ×2 (14:59→21:14)
--- NOTE | 2023-01-26 15:44 | P.PN ---
Subjective Date of Service: 01/26/23 Patient experienced a bout of panic attack this morning. She was complaining that she could not read. Stroke alert was called, patient was able to reach just fine. NIHSS score was 0. Head CT done did not show any acute stroke. Patient admitted to having a panic attack. Symptoms resolved after a dose of IV Ativan. Physical Examination - Vital Signs Temperature: 97.2 F Blood Pressure: 114/63 Pulse: 65 Respirations: 18 Pulse Ox (%): 100 Assessment And Plan - Plan Physical Exam General: Alert, In no apparent distress, anxious. Neck: Supple, JVD not distended Respiratory: Clear to auscultation bilaterally, Normal air movement Cardiovascular: No edema, Normal pulses, Regular rate/rhythm Gastrointestinal: Normal bowel sounds, Soft and benign Musculoskeletal: No clubbing, No swelling Integumentary: No rashes, No breakdown Neurological: Normal gait, Normal speech, Normal strength at 5/5 x4 extr Diagnosis Chest pain. Acute kidney injury Mild hyponatremia Diabetes uncontrolled with hyperglycemia Normocytic anemia Hypertensive Hyperlipidemia Chest pain/History of CAD: Troponin trended negative Cardiology input appreciated. continue home medications-aspirin and Coreg. Stress test resulted positive for stress-induced ischemia. Cardiac catheterization planned by Dr. Floyd. Cardiac cath was initially scheduled for today but later canceled. Cardiology to follow. Acute diastolic heart failure Markedly elevated BNP. Chest x-ray looks clear. Continue IV Lasix Cardiology input appreciated Echocardiogram: Normal EF. Normocytic anemia. Stable Hyponatremia Resolved. History of CVA with right-sided weakness: Stable. Diabetes mellitus type 2insulin-dependent:-Uncontrolled ACH S Accu-Chek, sliding scale insulin. Hypoglycemia episode 01/25. Blood glucose readings are better and more stable Continue Lantus insulin at 15 units daily. Hypertension: Continue home medications Hyperlipidemia: Continue home medications. Anxiety disorder/panic attack Scheduled p.o. Ativan I updated patient's mother. She plans to come to the hospital with patient's medication list so we can continue her home medications for anxiety. Full code DVT heparin Discharge Plan: Home
--- NOTE | 2023-01-26 18:05 | PN ---
Date of Progress Note: 01/26/2023 Subjective: Seen by bedside. No chest pain. Review of Systems: No chest pain, shortness of breath, orthopnea, or cough. No nausea, vomiting, or diarrhea. All othe r systems were reviewed, they were negative. Objective: Vital Signs: Reviewed. Head and Neck: Pupils are equal, reactive to light. Intact eye movements. No JVD. No cervical lym phadenopathy. Neck is supple. Thyroid is not enlarged. Lungs: Clear to auscultation bilaterally. No rhonchi, wheezing, or crackles. No accessory muscle u se. Heart: Regular rate and rhythm. No extra sounds. Abdomen: Soft, nontender. Bowel sounds positive. No organomegaly. No masses or hernia. No rigidi ty or rebound. Extremities: No edema, clubbing, or cyanosis. Intact pulses. Skin: No rash. No nodule. Neurologic: Alert, awake, oriented x3. No acute focal deficits appreciated. Investigations: Labs were reviewed. Assessment And Recommendations: 1.Chest pain. Negative troponin. Chest pain resolved. She will need coronary angiogram. We will plan to do this as an outpatient. 2.Hypertension. Blood pressure is controlled. Continue current management. 3.Diastolic heart failure, appears to be euvolemic. Continue current management. SR/MODL Voice ID: [id number] Report ID: [id number]
[2023-01-27] MEDS: HEPARIN 5000 UNIT/ML 1 ML VIAL SQ SCH ×3 (00:15→17:27)
[2023-01-27] MEDS: MORPHINE 2 MG/ML SYR IV PRN ×3 (01:38→17:27)
[2023-01-27 02:43] VITALS: O2SAT 100
[2023-01-27] MEDS: LORAZEPAM 1 MG TABLET PO PRN ×2 (05:46→12:47)
[2023-01-27] MEDS: INSULIN REGULAR (HUMAN) 100 UNIT/ML SQ SCH ×3 (07:30→16:30)
[2023-01-27 07:34] LABS: Potassium 4.2 mEq/L (3.5-5.1)
[2023-01-27] MEDS: INSULIN GLARGINE 100 UNIT/ML SQ SCH (09:00)
[2023-01-27] MEDS ORDERED: FUROSEMIDE 20 MG TABLET PO SCH (09:00)
[2023-01-27] MEDS ORDERED: CLOPIDOGREL 75 MG TABLET PO SCH (09:00)
[2023-01-27] MEDS ORDERED: BUSPIRONE HCL 5 MG TABLET PO SCH (09:00)
[2023-01-27] MEDS ORDERED: EZETIMIBE 10 MG TAB PO SCH (09:00)
[2023-01-27] MEDS ORDERED: SERTRALINE HCL 50 MG TAB PO SCH (09:00)
[2023-01-27] MEDS ORDERED: GABAPENTIN 300 MG CAP PO SCH (09:00)
[2023-01-27] MEDS: carvediloL 25 MG TAB PO SCH ×2 (09:01→17:27)
[2023-01-27] MEDS: HYDRALAZINE HCL 25 MG TABLET PO SCH (09:02)
[2023-01-27] MEDS: ASPIRIN 325 MG TAB PO SCH (09:02)
[2023-01-27] MEDS: METOPROLOL TAR 50 MG TAB PO SCH (09:02)
[2023-01-27] MEDS: FUROSEMIDE 40 MG/4 ML VIAL IV SCH (09:02)
[2023-01-27] MEDS ORDERED: ACETAMINOPHEN 325 MG TABLET PO PRN (09:04)
--- NOTE | 2023-01-27 11:45 | P.DS ---
Admission Date: 01/25/23 Discharge Date: 01/27/23 Disposition: DC HOME/HOME HEALTH CARE Discharge Condition: FAIR Brief History of Present Illness: 52-year-old -[place] female with a past medical history hypertension, CAD, PCI x2, CABG, insulin-dependent diabetes mellitus, presented to the emergency room with chest pain. She reported chest pain that radiates to the left arm, associated nausea, no vomiting. She reported associated back and neck pain. No reported fever. She denied recent injury. Laboratory evaluation showed normocytic anemia 9.4, 28.8, mild hyponatremia 134, blood glucose 377 BNP 1948, troponin normal at 10.5, chest x-ray showed no acute cardiopulmonary process. EKG normal sinus rhythm rate 76,.Rate is 76 beats/min. Rhythm is regular. Patient was hospitalized for ACS rule out. Hospital Course: Diagnosis Chest pain. Acute kidney injury Mild hyponatremia Diabetes uncontrolled with hyperglycemia Normocytic anemia Hypertensive Hyperlipidemia Plan: Chest pain/History of CAD: Troponin trended negative. Patient was seen and evaluated by cardiology continue home medications-aspirin and Coreg. Nuclear stress test done resulted positive for stress-induced ischemia. Cardiac catheterization was planned by Dr. Floyd. Cardiac cath was initially scheduled for today but later canceled because no cardiac catheterization in the facility until further notice. Okay for patient to follow-up for outpatient cardiac catheterization per Dr. Floyd. Acute diastolic heart failure Markedly elevated BNP. Chest x-ray looked clear. Patient treated with IV Lasix. She was seen and evaluated by cardiology. Echocardiogram: Normal EF. Normocytic anemia. Stable Hyponatremia Resolved. History of CVA with right-sided weakness: Stable. Diabetes mellitus type 2insulin-dependent:-Uncontrolled ACH S Accu-Chek, sliding scale insulin. Hypoglycemia episode 01/25. Blood glucose readings improved after holding Lantus insulin. Lantus insulin was resumed at 15 units daily. Patient has been moderately hyperglycemic with Lantus 15 unit daily, so dose increased to 20 units daily on discharge Hypertension: Continued home medications. Noted patient is on lisinopril 40 mg twice a day which is greater than the maximum daily dose, so her lisinopril dose has been changed to 40 mg daily. Hydralazine 25 mg twice daily added. Increased Coreg to 25 mg twice daily. Hyperlipidemia: Continued home dose statin Anxiety disorder/panic attack Scheduled p.o. Ativan Can resume her home psych medications which included buspirone and Zoloft. Vital Signs/Physical Exam: Temp Pulse Resp BP Pulse Ox 97.1 F 61 15 137/64 100 01/27/23 08:00 01/27/23 08:00 01/27/23 08:00 01/27/23 08:00 01/27/23 08:00 General: Alert, In no apparent distress, Oriented x3 Neck: JVD not distended Respiratory: Clear to auscultation bilaterally, Normal air movement Cardiovascular: No edema, Regular rate/rhythm, Normal S1 S2 Gastrointestinal: Normal bowel sounds, Soft and benign, Non-distended, No tenderness Musculoskeletal: No swelling Integumentary: No rashes, No cyanosis Neurological: Normal strength at 5/5 x4 extr Lymphatics: No axilla or inguinal lymphadenopathy Laboratory Data at Discharge: WBC 8.70 thou/uL (4.3-10.9) 01/26/23 09:13 Hgb 10.7 g/dL (12.0-15.0) L 01/26/23 09:13 Hct 32.9 % (36.0-45.0) L 01/26/23 09:13 Plt Count 279 thou/uL (152-406) 01/26/23 09:13 PT 11.6 SECONDS (9.5-12.5) 01/26/23 10:12 INR 1.05 01/26/23 10:12 APTT 30.9 SECONDS (24.3-36.9) 01/26/23 10:12 Sodium 137 mEq/L (136-145) 01/27/23 06:55 Potassium 4.2 mEq/L (3.5-5.1) 01/27/23 06:55 BUN 27 mg/dL (7-18) H 01/27/23 06:55 Creatinine 1.48 mg/dL (0.55-1.02) H 01/27/23 06:55 Glucose 144 mg/dL (74-106) H 01/27/23 06:55 Magnesium 2.0 mg/dL (1.6-2.4) 01/24/23 06:11 Total Bilirubin 0.4 mg/dL (0.2-1.0) 01/26/23 09:13 AST 9 U/L (15-37) L 01/26/23 09:13 ALT 14 U/L (13-56) 01/26/23 09:13 Alkaline Phosphatase 87 U/L (45-117) 01/26/23 09:13 Triglycerides 143 mg/dL (<150) 01/24/23 06:11 Cholesterol 184 mg/dL (<200) 01/24/23 06:11 HDL Cholesterol 38 mg/dL (40-60) L 01/24/23 06:11 Cholesterol/HDL Ratio 4.84 01/24/23 06:11 Home Medications: Aspirin [Ecotrin 81 MG] 81 mg PO DAILY #30 tablet. 03/19/16 Atorvastatin Calcium [Lipitor*] 80 mg PO BEDTIME 09/01/21 Clopidogrel Bisulfate [Plavix] 75 mg PO DAILY 09/01/21 Ezetimibe [Zetia] 10 mg PO DAILY 09/01/21 Furosemide 20 mg PO DAILY 09/01/21 Gabapentin 600 mg PO DAILY 09/01/21 Buspirone HCl [Buspar] 10 mg PO BID 01/27/23 Hydralazine [Apresoline*] 25 mg PO BID #60 tab 01/27/23 Insulin Glargine,Hum.rec.anlog [Lantus] 20 units SQ BEDTIME #15 ml 01/27/23 Nitroglycerin [Nitrostat*] 0.4 mg SL [id number] PRN 01/27/23 Ondansetron [Zofran (Odt)*] 4 mg PO Q6HP PRN 01/27/23 Sertraline [Zoloft*] 50 mg PO DAILY 01/27/23 carvediloL [Coreg] 25 mg PO BID #60 tab 01/27/23 lisinopriL [Prinivil*] 40 mg PO DAILY #30 tab 01/27/23 New Medications: Hydralazine [Apresoline*] 25 mg PO BID #60 tab carvediloL [Coreg] 25 mg PO BID #60 tab Insulin Glargine,Hum.rec.anlog [Lantus] 20 units SQ BEDTIME #15 ml lisinopriL [Prinivil*] 40 mg PO DAILY #30 tab Physician Discharge Instructions: PROBLEM: Chest Pain GOAL: Clear understanding of disease process INSTRUCTIONS: Ok to discharge and discontinue IV Take all medications as prescribed Follow up with your primary doctor in 1 week. Follow up with Dr. Floyd in 1 week to plan for outpatient heart catheterization Call [phone] if you have any questions regarding your hospital stay Diet: 1800 ADA diabetic diet Activity: as tolerated IMMUNIZATION Influenza Vaccine Indicated: No Influenza Vaccine Given: Date Given: Pneumonia Vaccine Indicated: No Pneumonia Vaccine Given: No Date Given: Followup: Elia Floyd MD [ACTIVE - CAN ADMIT] - 1 Week (Please call office to arrange for outpatient cardiac catheterization with Dr. Floyd.) Time spent managing pt's care (in minutes): 35
[2023-01-27 16:59] VITALS: BP 139/57; TEMP 97
[2023-01-27] MEDS ORDERED: ATORVASTATIN 80 MG TAB PO SCH (21:00)
== END 2023-01-27 18:44 | disposition home health service (06) | DRG 311 ==
LOC: ER 15:55 → ERHOLD 18:41 → 2ND 20:13 → OBSVTOIN 01-25 16:24
PROVIDERS: ADMIT Internal Medicine; ATTEND Internal Medicine
DX: I24.9 Acute ischemic heart disease, unspecified (principal); I50.31 Acute diastolic (congestive) heart failure; N17.9 Acute kidney failure, unspecified; E87.1 Hypo-osmolality and hyponatremia; I69.351 Hemiplegia and hemiparesis following cerebral infarction affecting right dominant side; I25.10 Atherosclerotic heart disease of native coronary artery without angina pectoris; F41.0 Panic disorder [episodic paroxysmal anxiety]; E78.5 Hyperlipidemia, unspecified; E66.9 Obesity, unspecified; I10 Essential (primary) hypertension; E11.65 Type 2 diabetes mellitus with hyperglycemia; D64.9 Anemia, unspecified; Z95.1 Presence of aortocoronary bypass graft; Z68.37 Body mass index [BMI] 37.0-37.9, adult
CPT/HCPCS: 36415; 70450; 71045; 78452; 80048; 80053; 80061; 81001; 82947; 83735; 83880; 84484; 85025; 85610; 85730; 93005; 93017; 93306; 94760; 96374; 96375; 99285; A9500; G0378; J1644; J1815; J1940; J2270; J2405; J2785

== ENCOUNTER 2023-01-29 10:27 | Emergency (ER) | payer OTHER ==
[2023-01-29] MEDS ORDERED: MORPHINE 2 MG/ML SYR ONE (11:00)
[2023-01-29] MEDS ORDERED: ONDANSETRON 4 MG/2 ML VIAL ONE (11:00)
[2023-01-29 11:14] LABS: Absolute Lymphocytes (CBC) 2.5 K/uL (0.7-4.9); Hematocrit 34.1 % (36.0-45.0); Lymphocytes % 31.2 % (15.3-44.8); MCV 86.8 fL (80-100); MPV 10.4 fL (7.6-11.3); Platelets 264 thou/uL (152-406); RBC Red Blood Cell Count 3.92 M/uL (3.86-4.86)
[2023-01-29 11:47] LABS: Protime INR 1.01
--- NOTE | 2023-01-29 12:01 | RAD REPORT ---
EXAM DESCRIPTION: RAD - Chest Single View - 01/29/2023 11:52 am CLINICAL HISTORY: CHEST PAIN COMPARISON: Chest Single View dated 01/23/2023; Chest Single View dated 08/31/2021; Chest Single View dated 12/17/2018; Chest Single View dated 11/16/2018 FINDINGS: Lines: None. Lungs: No evidence of edema or pneumonia. Pleural: No significant pleural effusions or pneumothorax. Minimal left mid lung scarring. Cardiac: Similar size and configuration Mediastinum: Within normal limits. Bones: No acute fractures. Sternotomy. Other: None IMPRESSION: No acute cardiopulmonary disease.
[2023-01-29 13:02] LABS: Potassium 3.8 mEq/L (3.5-5.1); Troponin High Sensitivity 8.6 pg/mL (<58.9)
--- NOTE | 2023-01-29 13:15 | EDPHYS ---
Physician Documentation [facility] Name: Romy Cortes Age: 52 yrs Sex: Female : 1970 Arrival Date: 01/29/2023 Time: 10:27 Bed 8 Private MD: ED Physician Elian Palmer HPI: 01/29 10:44 This 52 yrs old Black Female presents to ER via EMS with complaints of Chest Pain. rn 10:44 The patient or guardian reports chest pain that is located primarily in the substernal rn area, anterior chest wall. Onset: this morning. The pain does not radiate. Associated signs and symptoms: Pertinent positives: nausea, Pertinent negatives: abdominal pain, diaphoresis, shortness of breath, syncope. The chest pain is described as a pressure, squeezing. Duration: The patient or guardian reports a single episode, that is still ongoing. Severity of pain: At its worst the pain was moderate in the emergency department the pain is unchanged. The patient has experienced similar episodes in the past. Patient reports intermittent chest pain for 1 week. Patient was admitted to this hospital and was supposed to get a heart cath but tar leveler was ill and cath was canceled. Patient returns with worsening chest pain that began around midnight and has become constant and worse than it was before. Took nitro sublingual without improvement. Aspirin given by EMS. Patient with history of 5 stents in the past. Historical: - Allergies: 10:41 amlodipine; nj1 - Home Meds: 15:14 hydralazine 25 mg Oral tablet 1 tab 2 times per day [Active]; insulin glargine 100 nj1 unit/mL Sub-Q solution 20 units at bedtime [Active]; carvedilol 25 mg oral tablet 1 tab 2 times per day [Active]; lisinopril 40 mg oral tablet 1 tab daily [Active]; aspirin 81 mg Oral TbEC 1 tab once daily [Active]; Lipitor 80 mg Oral tab 1 tab once daily [Active]; buspirone 10 mg oral tablet 1 tab 2 times per day [Active]; Plavix 75 mg Oral tab 1 tab once daily [Active]; ezetimibe 10 mg oral tablet 1 tab daily [Active]; Lasix 20 mg Oral tab 1 tab once daily [Active]; gabapentin 600 mg oral tablet 1 tab daily [Active]; isosorbide mononitrate 20 mg Oral tablet 1 tab daily [Active]; nitroglycerin 0.4 mg sublingual Tablet, Sublingual 1 tab every 5 minutes [Active]; ondansetron HCl 4 mg Oral tablet 1 tab every 6 hours [Active]; sertraline 50 mg oral tablet 1 tabs daily [Active]; - PMHx: 10:41 CAD; cardiac stent x2; Diabetes - IDDM; Hyperlipidemia; Hypertension; link recorder; nj1 - PSHx: 10:41 CABG (es); Tonsillectomy; tubal ligation (es); nj1 - Immunization history:: Client reports receiving the 2nd dose of the Covid vaccine. - Social history:: Smoking status: Patient denies any tobacco usage or history of. - Family history:: not pertinent. - Hospitalizations: : The patient was recently seen at [facility]. ROS: 10:44 Constitutional: Negative for fever, chills, and weight loss, Cardiovascular: Positive rn for chest pain Respiratory: Negative for shortness of breath, cough, wheezing, and pleuritic chest pain, Abdomen/GI: Positive for nausea MS/Extremity: Negative for injury and deformity, Skin: Negative for injury, rash, and discoloration, Neuro: Negative for headache, weakness, numbness, tingling, and seizure, Exam: 10:42 ECG was reviewed by the Attending Physician. rn 12:20 Constitutional: This is a well developed, well nourished patient who is awake, alert, rn and in no acute distress. Head/Face: Normocephalic, atraumatic. Cardiovascular: Regular rate and rhythm. No pulse deficits. Respiratory: No increased work of breathing, no retractions or nasal flaring. Abdomen/GI: Soft, nontender MS/ Extremity: Pulses equal, no cyanosis. Neurovascular intact. Full, normal range of motion. Equal circumference. Neuro: Awake and alert, GCS 15 Vital Signs: 10:27 BP 122 / 69; Pulse 64; Resp 18; Temp 98.9(O); Pulse Ox 99% on R/A; Weight 104.33 kg; nj1 Height 5 ft. 5 in. ; 11:45 BP 122 / 80; Pulse 60; Resp 10; Pulse Ox 99% on R/A; nj1 12:24 BP 118 / 78; Pulse 61; Resp 11; Pulse Ox 99% ; nj1 13:15 BP 124 / 81; Pulse 59; Resp 17; Pulse Ox 98% on R/A; hb 14:43 BP 116 / 91; Pulse 61; Resp 10; Pulse Ox 98% ; nj1 15:20 BP 158 / 90; Pulse 63; Resp 9; Pulse Ox 98% on R/A; Pain 8/10; nj1 10:27 Body Mass Index 38.27 (104.33 kg, 165.1 cm) nj1 15:20 Pain Scale: Adult nj1 MDM: 10:33 Patient medically screened. rn 13:11 Differential diagnosis: acute myocardial infarction, acute pericarditis, anxiety, rn coronary artery disease pericarditis, pneumonia, pneumothorax, stable angina, unstable angina. HEART Score: History: Highly Suspicious (2), ECG: Non specific repolarization disturbance / LBTB / PM (1), Age: > 45 and < 65 years (1), Risk Factors: > or = 3 Risk factors for atherosclerotic disease (2), Troponin: < or = 1 x Normal Limit (0), Total Score = 6. 13:13 Data reviewed: vital signs, nurses notes, lab test result(s), EKG, radiologic studies, rn plain films, and as a result, I will admit patient. Consideration of Admission/Observation Patient was admitted/placed on observation. Escalation of care including admission/observation considered. Counseling: I had a detailed discussion with the patient and/or guardian regarding the historical points, exam findings, and any diagnostic results supporting the discharge/admit diagnosis, lab results, radiology results, the need for further work-up and treatment in the hospital, the need to transfer to another facility, [facility] does not immediately have the required specialist. ED course: Review of recent admission shows abnormal stress test and need for cath. Troponin negative at this time. Story is suspicious for angina, likely unstable angina. Will transfer patient given no cardiology available at this hospital at this time.. 01/29 10:38 Order name: Basic Metabolic Panel; Complete Time: 13:11 rn 01/29 10:38 Order name: CBC with Diff; Complete Time: 12:17 rn 01/29 10:38 Order name: NT PRO-BNP; Complete Time: 13:11 rn 01/29 10:38 Order name: PT-INR; Complete Time: 12:17 rn 01/29 10:38 Order name: Troponin HS; Complete Time: 13:11 rn 01/29 10:38 Order name: XRAY Chest (1 view); Complete Time: 12:17 rn 01/29 10:38 Order name: EKG; Complete Time: 10:39 rn 01/29 10:38 Order name: Cardiac monitoring; Complete Time: 11:12 rn 01/29 10:38 Order name: EKG - Nurse/Tech; Complete Time: 10:43 rn 01/29 10:38 Order name: IV Saline Lock; Complete Time: 11:12 rn 01/29 10:38 Order name: Labs collected and sent; Complete Time: 11:12 rn 01/29 10:38 Order name: O2 Per Protocol; Complete Time: 10:43 rn 01/29 10:38 Order name: O2 Sat Monitoring; Complete Time: 10:43 rn 01/29 11:22 Order name: Labs - recollect needed: recollect chemistries/ hemolyzed; Complete Time: eb 12:39 EC:42 Rate is 63 beats/min. Rhythm is regular. QRS [place] is Normal. TX interval is normal. QRS rn interval is normal. QT interval is normal. No Q waves. T waves are Inverted in leads II, aVF, V5, V6. No ST changes noted. Clinical impression: NSR w/ Non-specific ST/T Changes. Interpreted by me. Reviewed by me. Administered Medications: 10:43 Not Given (Given on route by EMS): aspirinchewable tablet 324 mg PO once; 81 mg tablets nj1 x 4 11:10 Drug: Ondansetron IVP 4 mg IVP once; over 2 minutes Route: IVP; Site: right upper arm; nj1 12:00 Follow up: Response: No adverse reaction nj1 11:12 Drug: morphine IVP or IV 2 mg IVP once over 4 mins Route: IVP; Infused Over: 4 mins; nj1 Site: right upper arm; 12:00 Follow up: Response: No adverse reaction nj1 Disposition Summary: 01/29/23 13:14 Transfer Ordered Notes: Transfer Location: [facility] rn Reason: Higher level of care rn Condition: Stable rn Problem: new rn Symptoms: have worsened rn Accepting Physician: Dr.Alok Rivera [facility](01/29/23 16:12) nj1 Diagnosis - Angina pectoris, unspecified rn Forms: - Medication Reconciliation Form rn - SBAR form rn Signatures: Dispatcher [employer] Elian Rodriguez MD MD rn Botello, Elizabeth eb Jaco, Norma, RN RN nj1 Corrections: (The following items were deleted from the chart) 14:04 13:14 Dr. david barker 16:12 14:04 Dr.Alok Rivera [facility] nj1
--- NOTE | 2023-01-29 13:15 | ER ---
Nurse's Notes [facility] Name: Romy Cortes Age: 52 yrs Sex: Female : 1970 Arrival Date: 01/29/2023 Time: 10:27 Bed 8 Private MD: Diagnosis: Angina pectoris, unspecified Presentation: 01/29 10:27 Chief complaint: EMS states: Squeezing chest pain that woke her up her sleep. Took 1 nj1 nitro at home. Given 324 ASA on route. 10:27 Coronavirus screen: Vaccine status: Patient reports receiving the 2nd dose of the covid nj1 vaccine. Ebola Screen: Patient denies travel to an Ebola-affected area in the 21 days before illness onset. Initial Sepsis Screen: Does the patient meet any 2 criteria? No. Patient's initial sepsis screen is negative. Does the patient have a suspected source of infection? No. Patient's initial sepsis screen is negative. Risk Assessment: Do you want to hurt yourself or someone else? Patient reports no desire to harm self or others. Onset of symptoms was January 28, 2023 at 23:00. 10:27 Method Of Arrival: [facility] nj1 10:27 Acuity: WYATT 3 nj1 10:27 Care prior to arrival: Medication(s) given: ASA, 81 mg, x 4, Glucose check: 298 nj1 "Insulin given by family prior 30 min ago". Historical: - Allergies: 10:41 amlodipine; nj1 - Home Meds: 15:14 hydralazine 25 mg Oral tablet 1 tab 2 times per day [Active]; insulin glargine 100 nj1 unit/mL Sub-Q solution 20 units at bedtime [Active]; carvedilol 25 mg oral tablet 1 tab 2 times per day [Active]; lisinopril 40 mg oral tablet 1 tab daily [Active]; aspirin 81 mg Oral TbEC 1 tab once daily [Active]; Lipitor 80 mg Oral tab 1 tab once daily [Active]; buspirone 10 mg oral tablet 1 tab 2 times per day [Active]; Plavix 75 mg Oral tab 1 tab once daily [Active]; ezetimibe 10 mg oral tablet 1 tab daily [Active]; Lasix 20 mg Oral tab 1 tab once daily [Active]; gabapentin 600 mg oral tablet 1 tab daily [Active]; isosorbide mononitrate 20 mg Oral tablet 1 tab daily [Active]; nitroglycerin 0.4 mg sublingual Tablet, Sublingual 1 tab every 5 minutes [Active]; ondansetron HCl 4 mg Oral tablet 1 tab every 6 hours [Active]; sertraline 50 mg oral tablet 1 tabs daily [Active]; - PMHx: 10:41 CAD; cardiac stent x2; Diabetes - IDDM; Hyperlipidemia; Hypertension; link recorder; nj1 - PSHx: 10:41 CABG (es); Tonsillectomy; tubal ligation (es); nj1 - Immunization history:: Client reports receiving the 2nd dose of the Covid vaccine. - Social history:: Smoking status: Patient denies any tobacco usage or history of. - Family history:: not pertinent. - Hospitalizations: : The patient was recently seen at [facility]. Screenin:13 [facility] ED Fall Risk Assessment (Adult) Score/Fall Risk Level 3 or more points = High nj1 Risk Oriented to surroundings, Maintained a safe environment, Educated pt \\T\\ family on fall prevention, incl call for assistance when getting out of bed, Hourly rounding (assess needs \\T\\ fall precautionary measures) done, Offered frequent toileting (1:1 observation), Remained with patient while ambulating. Abuse screen: Denies threats or abuse. Denies injuries from another. Nutritional screening: No deficits noted. Tuberculosis screening: No symptoms or risk factors identified. Assessment: 10:44 General: Appears in no apparent distress. comfortable, Behavior is calm, cooperative, nj1 appropriate for age. Pain: Complains of pain in back and chest. Neuro: Level of Consciousness is awake, alert, obeys commands, Oriented to person, place, time, situation. Cardiovascular: Chest pain. Respiratory: Airway is patent Respiratory effort is even, unlabored. 10:44 Pain: Pain began 11pm last night. nj1 11:29 Reassessment: Call placed to inside lab, labor economics professor to come redraw blood work as soon as nj1 available. 11:46 Reassessment: Patient appears in no apparent distress at this time. Patient and/or nj1 family updated on plan of care and expected duration. Pain level reassessed. Patient is alert, oriented x 3, equal unlabored respirations, skin warm/dry/pink. Pt requesting "something for anxiety". 13:41 Reassessment: Patient appears in no apparent distress at this time. No changes from hb previously documented assessment. Patient and/or family updated on plan of care and expected duration. Pain level reassessed. 14:44 Reassessment: Patient appears in no apparent distress at this time. No changes from nj1 previously documented assessment. Pt resting/sleeping. 16:09 Reassessment: Patient appears in no apparent distress at this time. No changes from [facility] previously documented assessment. [facility] here to transfer patient. Report given to Wu LUGO. Vital Signs: 10:27 BP 122 / 69; Pulse 64; Resp 18; Temp 98.9(O); Pulse Ox 99% on R/A; Weight 104.33 kg; nj1 Height 5 ft. 5 in. ; 11:45 BP 122 / 80; Pulse 60; Resp 10; Pulse Ox 99% on R/A; nj1 12:24 BP 118 / 78; Pulse 61; Resp 11; Pulse Ox 99% ; nj1 13:15 BP 124 / 81; Pulse 59; Resp 17; Pulse Ox 98% on R/A; hb 14:43 BP 116 / 91; Pulse 61; Resp 10; Pulse Ox 98% ; nj1 15:20 BP 158 / 90; Pulse 63; Resp 9; Pulse Ox 98% on R/A; Pain 8/10; nj1 10:27 Body Mass Index 38.27 (104.33 kg, 165.1 cm) nj1 15:20 Pain Scale: Adult [facility] ED Course: 10:32 Patient arrived in ED. nj1 10:33 Elian Palmer MD is Attending Physician. rn 10:40 EKG done, by ED staff, reviewed by Elian Palmer MD. em1 10:41 Triage completed. nj1 10:42 Arm band placed on. nj1 11:05 Inserted saline lock: 20 gauge in right upper arm, using aseptic technique. ,using nj1 aseptic technique. Ultrasound guided. Catheter tip well visualized within vasculature during placement. Blood collected. 11:12 Lauren Damon, RN is Primary Nurse. nj1 11:13 Client placed on continuous cardiac and pulse oximetry monitoring. NIBP monitoring nj1 applied. 11:14 Patient has correct armband on for positive identification. Bed in low position. Call [facility] light in reach. Side rails up X 1. Provided Education on: call light, fall precautions. 11:14 Patient maintains SpO2 saturation greater than 95% on room air. nj1 11:54 XRAY Chest (1 view) In Process Unspecified. EDMS 13:14 initiated a transfer with Tuan Hull from the [facility]. 14:00 administrative approval given by Tuan Hull/ patient has been accepted to [facility] room 1218/ Dr. Steve Rivera has accepted the patient in transfer/ report to be called to [phone]. 15:00 No provider procedures requiring assistance completed. nj1 15:00 Patient transferred, IV remains in place. nj1 15:02 [facility] unavailable for transport they have only one transport truck / [facility] Called. Administered Medications: 10:43 Not Given (Given on route by EMS): aspirinchewable tablet 324 mg PO once; 81 mg tablets nj1 x 4 11:10 Drug: Ondansetron IVP 4 mg IVP once; over 2 minutes Route: IVP; Site: right upper arm; nj1 12:00 Follow up: Response: No adverse reaction nj1 11:12 Drug: morphine IVP or IV 2 mg IVP once over 4 mins Route: IVP; Infused Over: 4 mins; nj1 Site: right upper arm; 12:00 Follow up: Response: No adverse reaction nj1 Medication: 11:15 VIS not applicable for this client. nj1 Outcome: 13:14 ER care complete, transfer ordered by . rn 14:59 Transferred nj1 14:59 Transferred by ground EMS to [facility], Transfer form completed. Note: Stress test (CD/DVD) sent with paperwork. Report given to nurse Brooke. 14:59 Condition: stable 14:59 Instructed on the need for transfer, 16:12 Patient left the ED. nj1 Signatures: Dispatcher [employer] EDMS Elian Palmer MD MD rn Martinez, [facility] Selina Dowling, Tiffany Young RN, Norma, RN RN nj1
[2023-01-29 16:52] VITALS: TEMP 98.9
[2023-01-29 17:09] VITALS: O2SAT 98
[2023-01-29 17:11] VITALS: BP 158/90
--- NOTE | 2023-01-30 12:17 | EKG ---
Test Date: 2023-01-29 Test Time: 10:40:32 Taste Tester: KATHERINE MEASUREMENT RESULTS: Intervals: Rate: 63 [place]: 144 QRSD: 78 QT: 400 QTc: 409 [place]: P: 56 [place]: 144 QRS: -8 T: 211 INTERPRETIVE STATEMENTS: Normal sinus rhythm Cannot rule out Anterior infarct, age undetermined T wave abnormality, consider inferolateral ischemia Abnormal ECG Compared to ECG 01/23/2023 16:51:11 T-wave abnormality now present Possible ischemia now present Left-axis deviation no longer present Myocardial infarct finding still present Electronically Signed On 01-30-23 12:14:57 CDT by Elia Floyd
== END 2023-01-29 16:12 | disposition short-term general hospital (02) ==
LOC: ER 10:27
DX: I20.9 Angina pectoris, unspecified (principal); I10 Essential (primary) hypertension; Z95.1 Presence of aortocoronary bypass graft; Z95.818 Presence of other cardiac implants and grafts; E11.9 Type 2 diabetes mellitus without complications; Z79.01 Long term (current) use of anticoagulants; Z79.4 Long term (current) use of insulin
CPT/HCPCS: 93005; 85025; 80048; 36415; 85610; 84484; 83880; 71045; 96375; 96374; 99285; J2270; J2405

== ENCOUNTER 2023-02-16 01:48 | Emergency (ER) | payer MEDICARE, OTHER ==
[2023-02-16] MEDS ORDERED: HYDROCODONE/APAP 10/325 TAB ONE (02:14)
[2023-02-16] MEDS ORDERED: PROMETHAZINE 25 MG TABLET ONE (02:14)
[2023-02-16] MEDS ORDERED: LORAZEPAM 0.5 MG TABLET ONE (02:14)
[2023-02-16] MEDS ORDERED: MORPHINE 2 MG/ML SYR ONE (03:28)
[2023-02-16 03:55] LABS: Absolute Lymphocytes (CBC) 1.7 K/uL (0.7-4.9); Hematocrit 25.9 % (36.0-45.0); Lymphocytes % 21.3 % (15.3-44.8); MCV 84.6 fL (80-100); Platelets 249 thou/uL (152-406); RBC Red Blood Cell Count 3.06 M/uL (3.86-4.86)
[2023-02-16 03:56] LABS: Protime INR 1.05
[2023-02-16 04:22] LABS: Albumin 3.1 g/dL (3.4-5.0); Bilirubin Direct 0.1 mg/dL (0-0.2); Bilirubin Indirect, Calculated 0.1 mg/dL (0.2-0.8); Bilirubin Total 0.2 mg/dL (0.2-1.0); Magnesium 2.1 mg/dL (1.6-2.4); Potassium 3.6 mEq/L (3.5-5.1); Protein, Total 7.5 g/dL (6.4-8.2); Troponin High Sensitivity 9.5 pg/mL (<58.9)
--- NOTE | 2023-02-16 06:18 | ER ---
Nurse's Notes [facility] Name: Romy Cortes Age: 52 yrs Sex: Female : 1970 Arrival Date: 02/16/2023 Time: 01:48 Bed 8 Private MD: Diagnosis: Chest pain, unspecified;Noncardiac chest pain, anxiety reaction Presentation: 02/16 01:52 Chief complaint: EMS states: SUDDEN ONSET OF CP, NON RADIATING, UNRELIEVED AFTER 3 rv DOSES ON PO NITRO. Coronavirus screen: At this time, the client does not indicate any symptoms associated with coronavirus-19. Ebola Screen: No symptoms or risks identified at this time. Initial Sepsis Screen: Does the patient meet any 2 criteria? No. Patient's initial sepsis screen is negative. Does the patient have a suspected source of infection? No. Patient's initial sepsis screen is negative. Risk Assessment: Do you want to hurt yourself or someone else? Patient reports no desire to harm self or others. Onset of symptoms was February 16, 2023. 01:52 Method Of Arrival: EMS: [facility] rv 01:52 Acuity: WYATT 2 rv Triage Assessment: 01:54 General: Appears uncomfortable, Behavior is calm, cooperative. Pain: Complains of pain rv in chest. Neuro: Level of Consciousness is awake, alert, obeys commands, Oriented to person, place, time, situation. Cardiovascular: Capillary refill Patient's skin is warm and dry. Cardiovascular: Reports chest pain. Respiratory: Airway is patent Respiratory effort is even, unlabored. GI: No signs and/or symptoms were reported involving the gastrointestinal system. : No signs and/or symptoms were reported regarding the genitourinary system. Derm: Skin is intact. Historical: - Allergies: 01:54 amlodipine; rv - PMHx: :52 CAD; cardiac stent x2; Diabetes - IDDM; Hyperlipidemia; Hypertension; link recorder; rv - PSHx: :52 CABG; Tonsillectomy; tubal ligation; rv - Immunization history:: Adult Immunizations up to date. - Social history:: Smoking status: Patient denies any tobacco usage or history of. - Family history:: not pertinent. Screenin:55 [facility] ED Fall Risk Assessment (Adult) History of falling in the last 3 months, rv including since admission No falls in past 3 months (0 pts) Score/Fall Risk Level 0 - 2 = Low Risk Oriented to surroundings, Maintained a safe environment, Educated pt \T\ family on fall prevention, incl call for assistance when getting out of bed, Assessed \T\ reinforced patient's understanding of fall precautions, Provided non-skid footwear, Hourly rounding (assess needs \T\ fall precautionary measures) done, Used ambulatory aids as needed (educated on \T\ assisted with), Used gait belt as appropriate. Abuse screen: Denies threats or abuse. Denies injuries from another. Nutritional screening: No deficits noted. Tuberculosis screening: No symptoms or risk factors identified. Assessment: 03:00 Reassessment: Patient and/or family updated on plan of care and expected duration. Pain ha1 level reassessed. Patient is alert, oriented x 3, equal unlabored respirations, skin warm/dry/pink. pain 9/10. 06:19 Reassessment: report given to Domenic LANGSTON. awaiting transportation for the pt. rv 08:10 Reassessment: Patient appears in no apparent distress at this time. Patient and/or ph family updated on plan of care and expected duration. Pain level reassessed. Patient is alert, oriented x 3, equal unlabored respirations, skin warm/dry/pink. [facility] at bedside, pt transferred back to [place]. Vital Signs: 01:52 BP 131 / 59; Pulse 74; Resp 17; Temp 98; Pulse Ox 100% on 2 lpm NC; Weight 76 kg; rv 03:00 BP 126 / 67; Pulse 72; Resp 17 S; Pulse Ox 99% ; ha1 08:11 BP 128 / 72; Pulse 70; Resp 18; Pulse Ox 99% ; ph ED Course: 01:50 Patient arrived in ED. rv 01:52 Reese Leyva MD is Attending Physician. sp4 01:54 Triage completed. rv 01:54 Arm band placed on right wrist. rv 01:55 Patient has correct armband on for positive identification. Client placed on continuous rv cardiac and pulse oximetry monitoring. NIBP monitoring applied. psychologist on. 01:55 Maintain EMS IV. Dressing intact. Good blood return noted. Site clean \T\ dry. Gauge \T\ rv site: 22 LFA. 01:56 Ming, Byron, RN is Primary Nurse. rv 02:07 XRAY Chest (1 view) In Process Unspecified. EDMS 02:15 Missed attempt(s): 22 gauge in right antecubital area. ha1 02:30 Missed attempt(s): 22 gauge in right hand. ha1 08:11 No provider procedures requiring assistance completed. IV discontinued, intact, ph bleeding controlled, No redness/swelling at site. Pressure dressing applied. Administered Medications: 02:08 Drug: LORazepam PO 0.5 mg PO once Route: PO; rv 06:00 Follow up: Response: No adverse reaction rv 02:08 Drug: [place] PO 10 mg-325 mg 1 tabs PO once Route: PO; rv 06:00 Follow up: Response: No adverse reaction rv 02:08 Drug: Promethazine PO 25 mg PO once Route: PO; rv 06:00 Follow up: Response: No adverse reaction rv 03:15 Drug: morphine IVP or IV 2 mg IVP once over 4 mins Route: IVP; Infused Over: 4 mins; ha1 Site: left forearm; 06:00 Follow up: Response: No adverse reaction rv Medication: 01:55 VIS not applicable for this client. rv Outcome: 06:17 Discharge ordered by MD. zamora 08:11 Discharged to [facility]. ph 08:11 Condition: good 08:11 Discharge instructions given to patient, [facility], Instructed on discharge instructions, follow up and referral plans. 08:12 Patient left the ED. ph Signatures: Dispatcher [employer] EDMS Bharati Patton RN RN Byron Lai RN RN Dominga Cobos RN RN [facility] Reese Leyva MD MD sp4
--- NOTE | 2023-02-16 06:18 | EDPHYS ---
Physician Documentation [facility] [place] Name: Romy Cortes Age: 52 yrs Sex: Female : 1970 Arrival Date: 02/16/2023 Time: 01:48 Bed 8 Private MD: ED Physician Reese Leyva HPI: 02/16 01:52 This 52 yrs old Black Female presents to ER via Unassigned with complaints of chest sp4 pain . 01:53 52-year-old black female presents from half-way with EMS for acute onset chest sp4 pain. Patient was given full dose aspirin by EMS and she was given 3 nitroglycerin tablets at the half-way. Patient denied any other symptoms. Patient was released from [facility] after being hospitalized from 02/04/2023 through 02/15/2023. Patient has history of CAD status PCI to multiple vessels and CABG also atrial septal defect repair, uncontrolled diabetes with hemoglobin A1c 10.8, gastroparesis status post gastric pacemaker placement, history of MRSA bacteremia, gastric pacemaker removal, CVA with residual right-sided weakness, recent ACS with PCI to left circumflex artery on 01/30/2023. Patient is immobilized secondary to prior CVA and right-sided hemiparesis. She has physical deconditioning secondary to prolonged immobility. During her last admission patient was worked up for chest pain and it was determined that the pain is not consistent with acute coronary syndrome. Patient was given PPI for atypical chest pain and also her anxiety was managed and she was cleared for discharge and discharged on 02/15/2023. Patient is on aspirin, Plavix, Lipitor, carvedilol 25 mg twice daily, Imdur 30 mg daily, and as needed nitroglycerin. Patient has history of acute kidney injury on chronic kidney disease stage II, additionally she has persistent anxiety, dyspnea, CT PE protocol was done at [facility] and it was negative for pulmonary emboli. Patient's anxiety was managed with fluoxetine and hydroxyzine, and patient's insulin-dependent diabetes mellitus was managed with Lantus 25 units daily, insulin sliding scale. Blood pressure managed with lisinopril 40 mg daily, insomnia likely anxiety mediated was managed with trazodone and melatonin. CT chest PE protocol was done on 02/12/2023 and revealed no pulmonary thromboembolism. No pleural effusion. Subsegmental atelectasis at the lung bases. Patient's coronary artery disease history reveals status post ACB x2 PCI to ROBIN and LAD on 05/13/2022, and PCI to left circumflex on 01/30/2023. Also has a history of morbid obesity, BMI 36.7. Nuclear medicine myocardial perfusion PET CT rest and stress test - stress test pharmacologic stress test was done also with myocardial perfusion PET CT imaging, it was established that left ventricular ejection fraction is 60% -69%. Stress test impression, normal study, normal myocardial perfusion, normal resting left ventricular ejection fraction which does not deteriorate with pharmacologic stress. Normal extracardiac tracer distribution, CT with multivessel coronary artery calcifications and borderline cardiomegaly. No prior study for comparison. Stress test done 02/06/2023. Patient's medications aspirin, Imdur, atorvastatin, Coreg, Plavix, Zetia, Lasix, heparin, hydralazine. Patient's hemoglobin while inpatient 8.6. Hematocrit 28.7. Platelets 258.. Historical: - Allergies: 01:54 amlodipine; rv - PMHx: 01:54 CAD; cardiac stent x2; Diabetes - IDDM; Hyperlipidemia; Hypertension; link recorder; rv - PSHx: 01:54 CABG; Tonsillectomy; tubal ligation; rv - Immunization history:: Adult Immunizations up to date. - Social history:: Smoking status: Patient denies any tobacco usage or history of. - Family history:: not pertinent. ROS: 01:53 Constitutional: Negative for fever, chills, and weight loss, positive chest pain sp4 Exam: 02:19 ECG was reviewed by the Attending Physician. EKG 0 157, there is normal sinus rhythm sp4 with a rate of 74, no ST elevation or depression, no ectopy, overall normal EKG 02:20 Constitutional: This is a well developed, well nourished patient who is awake, alert, sp4 and in no acute distress. Elderly debilitated female that has signs of prolonged immobility, right-sided hemiparesis from prior CVA, and some dysarthria , scar from median sternotomy from prior CABG Head/Face: Normocephalic, atraumatic. Eyes: Pupils equal round and reactive to light, extra-ocular motions intact. Lids and lashes normal. Conjunctiva and sclera are not injected. Cornea within normal limits. Periorbital areas with no swelling, redness, or edema. ENT: Nares patent. No nasal discharge, no septal abnormalities noted. Tympanic membranes are normal and external auditory canals are clear. Oropharynx with no redness, swelling, or masses, exudates, or evidence of obstruction, uvula midline. Mucous membranes moist. Neck: Trachea midline, no thyromegaly or masses palpated, and no cervical lymphadenopathy. Supple, full range of motion without nuchal rigidity, or vertebral point tenderness. Chest/axilla: Normal chest wall appearance and motion. Nontender with no deformity. No lesions are appreciated. Cardiovascular: Regular rate and rhythm with a normal S1 and S2. No gallops, murmurs, or rubs. Normal PMI, no JVD. No pulse deficits. Respiratory: Lungs have equal breath sounds bilaterally, clear to auscultation and percussion. No rales, rhonchi or wheezes noted. No increased work of breathing, no retractions or nasal flaring. Abdomen/GI: Soft, non-tender, with normal bowel sounds. No distension or tympany. No guarding or rebound. No evidence of tenderness throughout. Back: No spinal tenderness. No costovertebral tenderness. Skin: Warm, dry with normal turgor. Normal color with no rashes, no lesions, and no evidence of cellulitis. MS/ Extremity: Pulses equal, no cyanosis. Neurovascular intact. Lower extremity muscular atrophy from prolonged immobility. Right-sided hemiparesis from prior CVA Neuro: Awake and alert, GCS 15, oriented to person, place, time, and situation. Cranial nerves II-XII grossly intact. Right-sided hemiparesis from prior CVA, no new neurologic deficits reported. Psych: Awake, alert, with orientation to person, place and time. Behavior, mood, and affect are within normal limits Vital Signs: 01:52 BP 131 / 59; Pulse 74; Resp 17; Temp 98; Pulse Ox 100% on 2 lpm NC; Weight 76 kg; rv 03:00 BP 126 / 67; Pulse 72; Resp 17 S; Pulse Ox 99% ; ha1 08:11 BP 128 / 72; Pulse 70; Resp 18; Pulse Ox 99% ; ph MDM: 02:18 Patient medically screened. sp4 05:05 Data reviewed: vital signs, nurses notes, EMS record, old medical records, lab test sp4 result(s), EKG, radiologic studies, plain films. 05:05 ED course: Chest X ray - COMPARISON: No relevant prior studies available. FINDINGS: sp4 LUNGS: Slight prominence of bilateral pulmonary vasculature with no discrete focal consolidation. PLEURAL SPACE: No appreciable pleural effusion. No pneumothorax. HEART: See below. MEDIASTINUM: Prominence of the cardiomediastinal silhouette, likely exaggerated secondary to portable technique, lordotic positioning, rightward rotation, low lung volumes, and patient body habitus. BONES/JOINTS: Median sternotomy. IMPRESSION: Suspected cardiomegaly with vascular congestion, but no definite acute cardiopulmonary process. 06:15 Differential Diagnosis altered mental status, sepsis, flu. Data reviewed: vital signs. sp4 Consideration of Admission/Observation Escalation of care including admission/observation considered. ED course: Opponent x2 is negative patient is stable for discharge back to half-way, there is no sign of ACS. . ED course: Based on extensive record review patient has stable cardiac work-up during her recent admission. . 02/16 01:53 Order name: Basic Metabolic Panel; Complete Time: 04:45 sp4 02/16 01:53 Order name: CBC with Diff; Complete Time: 03:59 sp4 02/16 01:53 Order name: LFT's; Complete Time: 04:45 sp4 02/16 01:53 Order name: Magnesium; Complete Time: 04:45 sp4 02/16 01:53 Order name: NT PRO-BNP; Complete Time: 04:45 sp4 02/16 01:53 Order name: PT-INR; Complete Time: 03:59 sp4 02/16 01:53 Order name: Troponin HS; Complete Time: 04:45 sp4 02/16 02:23 Order name: COVID-19 SARS RT PCR; Complete Time: 05:03 sp4 02/16 05:02 Order name: Troponin High Sensitivity; Complete Time: 06:15 sp4 02/16 01:53 Order name: XRAY Chest (1 view) 4 02/16 01:53 Order name: EKG; Complete Time: 01:53 sp4 02/16 01:53 Order name: Cardiac monitoring; Complete Time: 01:56 sp4 02/16 01:53 Order name: EKG - Nurse/Tech; Complete Time: 01:56 sp4 02/16 01:53 Order name: IV Saline Lock; Complete Time: sp4 02/16 01:53 Order name: Labs collected and sent; Complete Time: sp4 02/16 01:53 Order name: O2 Per Protocol; Complete Time: sp4 02/16 01:53 Order name: O2 Sat Monitoring; Complete Time: 4 EC:19 Rate is 74 beats/min. Rhythm is regular, Normal Sinus Rhythm. QRS [place] is Normal. MT sp4 interval is normal. QRS interval is normal. QT interval is normal. No Q waves. T waves are Inverted in leads V5, V6. No ST changes noted. Clinical impression: No evidence of ischemia. Interpreted by me. Reviewed by me. Administered Medications: 02:08 Drug: LORazepam PO 0.5 mg PO once Route: PO; rv 06:00 Follow up: Response: No adverse reaction rv 02:08 Drug: Denio PO 10 mg-325 mg 1 tabs PO once Route: PO; rv 06:00 Follow up: Response: No adverse reaction rv 02:08 Drug: Promethazine PO 25 mg PO once Route: PO; rv 06:00 Follow up: Response: No adverse reaction rv 03:15 Drug: morphine IVP or IV 2 mg IVP once over 4 mins Route: IVP; Infused Over: 4 mins; ha1 Site: left forearm; 06:00 Follow up: Response: No adverse reaction rv Disposition Summary: 02/16/23 06:17 Discharge Ordered Problem: new sp4 Symptoms: have improved sp4 Condition: Stable sp4 Diagnosis - Chest pain, unspecified sp4 - Noncardiac chest pain, anxiety reaction sp4 Followup: sp4 - With: Private Physician - When: 5 - 6 days - Reason: Recheck today's complaints Discharge Instructions: - Discharge Summary Sheet sp4 - Nonspecific Chest Pain, Adult sp4 Forms: - Patient Portal Instructions sp4 Signatures: Dispatcher [employer] Byron Howe RN Dominga Goldsmith RN RN [facility] Reese Leyva MD MD sp4
--- NOTE | 2023-02-16 07:57 | EKG ---
Test Date: 2023-02-16 Test Time: 01:57:48 Tie Loader: CHERYL MEASUREMENT RESULTS: Intervals: Rate: 74 WV: 156 QRSD: 78 QT: 374 QTc: 415 [place]: P: 70 WV: 156 QRS: 32 T: 16 INTERPRETIVE STATEMENTS: Normal sinus rhythm Nonspecific ST and T wave abnormality Abnormal ECG Compared to ECG 01/29/2023 10:40:32 ST (T wave) deviation now present Myocardial infarct finding no longer present T-wave abnormality no longer present Possible ischemia no longer present Electronically Signed On 02-16-23 07:56:40 CDT by Elia Floyd
--- NOTE | 2023-02-16 15:38 | RAD REPORT ---
EXAM DESCRIPTION: R CHEST 1 VIEW CLINICAL HISTORY: HEST PAIN TECHNIQUE: Single view chest COMPARISON: None FINDINGS: Cardiac: Heart size top normal. Mediastinum: Trachea midline Lungs/Pleura: Small bilateral pleural effusions. Mild central vascular prominence. No consolidation. No pneumothorax Skeletal System: Status post sternotomy IMPRESSION: Mild central vascular prominence with small effusions. Appearance compatible with mild c ongestive failure Electronically signed by: Salas Delarosa MD 02/15/2023 11:45 PM CDT Due to temporary technical issues with the PACS/Fluency reporting system, reports are being signed by the in house radiologists without review as a courtesy to insure prompt reporting. The interpreting radiologist is fully responsible for the content of the report.
[2023-02-16 16:25] VITALS: BP 128/72; TEMP 98; O2SAT 99
== END 2023-02-16 08:12 | disposition home or self-care (01) ==
LOC: ER 01:48
DX: R07.89 Other chest pain (principal); F41.1 Generalized anxiety disorder; I25.10 Atherosclerotic heart disease of native coronary artery without angina pectoris; I10 Essential (primary) hypertension; E78.5 Hyperlipidemia, unspecified; E11.9 Type 2 diabetes mellitus without complications; Z95.1 Presence of aortocoronary bypass graft; Z20.822 Contact with and (suspected) exposure to COVID-19
CPT/HCPCS: 93005; 85025; 80048; 36415; 83735; 85610; 80076; 84484 ×2; 83880; 87635; 71045; Q0169; J2270

== ENCOUNTER 2023-02-17 23:59 | Emergency (ER) | payer MEDICARE, OTHER ==
[2023-02-18 00:30] LABS: Absolute Lymphocytes (CBC) 1.6 K/uL (0.7-4.9); Hematocrit 25.9 % (36.0-45.0); Lymphocytes % 21.8 % (15.3-44.8); MCV 85.1 fL (80-100); MPV 9.9 fL (7.6-11.3); Platelets 224 thou/uL (152-406); RBC Red Blood Cell Count 3.05 M/uL (3.86-4.86)
[2023-02-18 00:38] LABS: Protime INR 1.03
[2023-02-18 00:52] LABS: Potassium 3.4 mEq/L (3.5-5.1); Troponin High Sensitivity 10.7 pg/mL (<58.9)
[2023-02-18] MEDS ORDERED: ONDANSETRON 4 MG/2 ML VIAL ONE (01:38)
[2023-02-18] MEDS ORDERED: MORPHINE 4 MG/ML SYR ONE (01:38)
[2023-02-18] MEDS ORDERED: FLEET ENEMA ADULT PR ONE (02:40)
--- NOTE | 2023-02-18 03:14 | ER ---
Nurse's Notes [facility] [place] Name: Romy Cortes Age: 52 yrs Sex: Female : 1970 Arrival Date: 02/17/2023 Time: 23:59 Bed 6 Private MD: Diagnosis: Chest pain, unspecified;Constipation, unspecified;Fecal impaction Presentation: 02/18 00:01 Chief complaint: EMS states: called out to [facility] for chest pain that radiates to me1 left arm with shortness of breath that started yesterday. Given nitroglycerin x3 by MO without relief. Given ASA 325mg also. Patient recently became o2 dependant at 2 LPM via NC. Unable to obtain IV access by EMS. NSR. HX: CABG 1 yr ago. Hx: CVA 1 yr ago- patient states she just started having slurred speech yesterday. Coronavirus screen: Vaccine status: Patient reports receiving the 2nd dose of the covid vaccine. Ebola Screen: No symptoms or risks identified at this time. Initial Sepsis Screen: Does the patient meet any 2 criteria? No. Patient's initial sepsis screen is negative. Does the patient have a suspected source of infection? No. Patient's initial sepsis screen is negative. Risk Assessment: Do you want to hurt yourself or someone else? Patient reports no desire to harm self or others. Onset of symptoms was February 16, 2023. 00:01 Method Of Arrival: EMS: [facility] 00:01 Acuity: WYATT 3 me1 Triage Assessment: 00:07 General: Appears. General: Appears uncomfortable, obese, well groomed, Behavior is me1 cooperative, appropriate for age, anxious, Reports cp that radiates to left arm with sob that started yesterday. Also reports new onset slurred speech that started yesterday. Pain: Complains of pain in anterior aspect of left upper chest Pain radiates to left arm Pain currently is 9 out of 10 on a pain scale. Quality of pain is described as heavy, Pain began 1 day ago. Is continuous. Neuro: Level of Consciousness is awake, alert, obeys commands, Oriented to person, place, time, situation, Appropriate for age. Cardiovascular: Capillary refill < 3 seconds Patient's skin is warm and dry. Respiratory: Airway is patent Respiratory effort is even, unlabored, Respiratory pattern is regular, symmetrical. GI: has a gastric pacemaker for gastroparesis. 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 - Social history:: Smoking status: Patient denies any tobacco usage or history of. - Family history:: not pertinent. - Hospitalizations: : Patient was recently seen at. Screenin:08 [facility] ED Fall Risk Assessment (Adult) History of falling in the last 3 months, pf1 including since admission No falls in past 3 months (0 pts) Confusion or Disorientation No (0 pts) Intoxicated or Sedated No (0 pts) Impaired Gait Yes (1 pt) Mobility Assist Device Used No (0 pt) Altered Elimination Yes (1 pt) Score/Fall Risk Level 0 - 2 = Low Risk Oriented to surroundings, Maintained a safe environment, Educated pt \T\ family on fall prevention, incl call for assistance when getting out of bed, Assessed \T\ reinforced patient's understanding of fall precautions, Provided non-skid footwear, Hourly rounding (assess needs \T\ fall precautionary measures) done. Abuse screen: Denies threats or abuse. Nutritional screening: No deficits noted. Tuberculosis screening: No symptoms or risk factors identified. Assessment: 00:11 General: see triage assessment. . me1 01:00 Reassessment: Patient appears in no apparent distress at this time. Patient and/or jb4 family updated on plan of care and expected duration. Pain level reassessed. Patient is alert, oriented x 3, equal unlabored respirations, skin warm/dry/pink. 02:00 Reassessment: Patient appears in no apparent distress at this time. Patient and/or jb4 family updated on plan of care and expected duration. Pain level reassessed. Patient is alert, oriented x 3, equal unlabored respirations, skin warm/dry/pink. 03:00 Reassessment: Patient appears in no apparent distress at this time. Patient and/or jb4 family updated on plan of care and expected duration. Pain level reassessed. Patient is alert, oriented x 3, equal unlabored respirations, skin warm/dry/pink. D/c pending transportation back to intermediate. 04:32 Reassessment: Teresa from [facility] will transport pf1 patient at 0800 back to the intermediate. 05:56 Reassessment: Patient appears in no apparent distress at this time. Patient and/or jb4 family updated on plan of care and expected duration. Pain level reassessed. Patient is alert, oriented x 3, equal unlabored respirations, skin warm/dry/pink. 07:03 Reassessment: Patient appears in no apparent distress at this time. Patient and/or jb4 family updated on plan of care and expected duration. Pain level reassessed. Patient is alert, oriented x 3, equal unlabored respirations, skin warm/dry/pink. Vital Signs: 00:01 BP 149 / 80; Pulse 81; Resp 20; Temp 98.4(O); Pulse Ox 100% on 2 lpm NC; Weight 99.79 me1 kg; Height 5 ft. 5 in. ; Pain 9/10; 01:15 BP 175 / 100; Pulse 82; Resp 16; Pulse Ox 100% on 2 lpm NC; jb4 02:15 BP 140 / 77; Pulse 70; Resp 16; Pulse Ox 95% on 2 lpm NC; jb4 03:15 BP 111 / 97; Pulse 66; Resp 16; Pulse Ox 98% on 2 lpm NC; jb4 05:45 BP 156 / 84; Pulse 72; Resp 16; Pulse Ox 98% on 2 lpm NC; jb4 06:45 BP 172 / 81; Pulse 69; Resp 16; Pulse Ox 100% on 2 lpm NC; jb4 08:04 BP 163 / 79; Pulse 68; Resp 15; Pulse Ox 100% on 2 lpm NC; hb 00:01 Body Mass Index 36.61 (99.79 kg, 165.1 cm) me1 00:01 Pain Scale: Adult tn1 ED Course: 00:00 Patient arrived in ED. me1 00:00 Elian Palmer MD is Attending Physician. rn 00:07 Triage completed. me1 00:07 Arm band placed on Patient placed in an exam room. me1 00:07 Patient has correct armband on for positive identification. Bed in low position. Call pf1 light in reach. Side rails up X2. 00:07 Client placed on continuous cardiac and pulse oximetry monitoring. NIBP monitoring pf1 applied. pvc monitor on. Pulse ox on. 00:23 XRAY Chest (1 view) In Process Unspecified. EDMS 00:24 Basic Metabolic Panel Sent. me1 00:24 CBC with Diff Sent. me1 00:24 NT PRO-BNP Sent. me1 00:24 PT-INR Sent. me1 00:24 Troponin HS Sent. me1 00:24 Inserted saline lock: 22 gauge in right forearm, using aseptic technique. Oxygen me1 administration via nasal cannula \T\ 2L/min. 01:14 Byron Lai, RN is Primary Nurse. rv 01:33 CT Chest For PE Angio In Process Unspecified. EDMS 01:33 CT Head Brain wo Cont In Process Unspecified. EDMS 01:33 CT Abd/Pelvis - IV Contrast Only In Process Unspecified. EDMS 04:12 No provider procedures requiring assistance completed. IV discontinued, intact, pf1 bleeding controlled, No redness/swelling at site. Pressure dressing applied. 04:13 Provided Education on: follow up education. pf1 Administered Medications: 01:28 Drug: Ondansetron IVP 4 mg IVP once; over 2 minutes Route: IVP; Site: right forearm; jb4 01:29 Drug: morphine IVP or IV 4 mg IVP once over 4 mins Route: IVP; Infused Over: 4 mins; jb4 Site: right forearm; 02:41 Drug: Fleet Enema NH 133 ml NH once; may repeat once Route: NH; kd3 Medication: 04:14 VIS not applicable for this client. pf1 Outcome: 03:14 Discharge ordered by . rn 04:06 Discharged to intermediate. Report called to nurse Teresa at [facility]. pf1 04:06 Condition: improved 04:06 Discharge instructions given to patient, Instructed on discharge instructions, follow up and referral plans. Demonstrated understanding of instructions, follow-up care, 08:13 Patient left the ED. Signatures: Dispatcher [employer] EDMS Elian Palmer MD MD rn Baxter, Heather, RN RN Gabriel Richards RN RN jb4 Byron Lai, KIAN RN Roxanne Blank RN RN kd3 Carlotta Stevenson RN RN pf1 Tia Ernandez, RN RN me1 Corrections: (The following items were deleted from the chart) 07:05 03:00 Reassessment: Patient appears in no apparent distress at this time. Patient jb4 and/or family updated on plan of care and expected duration. Pain level reassessed. Patient is alert, oriented x 3, equal unlabored respirations, skin warm/dry/pink. jb4 07:05 03:00 Reassessment: Patient appears in no apparent distress at this time. Patient jb4 and/or family updated on plan of care and expected duration. Pain level reassessed. Patient is alert, oriented x 3, equal unlabored respirations, skin warm/dry/pink. jb4
--- NOTE | 2023-02-18 03:14 | EDPHYS ---
Physician Documentation [facility] Name: Romy Cortes Age: 52 yrs Sex: Female : 1970 Arrival Date: 02/17/2023 Time: 23:59 Bed 6 Private MD: ED Physician Elian Palmer HPI: 02/18 00:18 This 52 yrs old Black Female presents to ER via EMS with complaints of Chest Pain. rn 00:18 The patient or guardian reports chest pain that is located primarily in the chest rn diffusely. Onset: yesterday. The pain does not radiate. Associated signs and symptoms: Pertinent positives: abdominal pain, Pertinent negatives: cough, syncope, vomiting. The chest pain is described as aching. Duration: The patient or guardian reports multiple episodes, that are intermittent. Modifying factors: The symptoms are alleviated by nothing. the symptoms are aggravated by nothing. Severity of pain: At its worst the pain was moderate in the emergency department the pain is unchanged. The patient has experienced similar episodes in the past. The patient has been recently seen by a physician:. Patient reports diffuse chest pain that began yesterday, was intermittent yesterday now constant since midday today. Given nitroglycerin and aspirin by intermediate and EMS without alleviation of pain. Patient also reports abdominal pain that began yesterday with constipation, denies vomiting. No blood in stool. Patient with multiple recent admissions including 1 for stent in the left circumflex at the beginning of the month and has had a couple of admissions since then with cardiac work-ups, patient states nothing else found more recently. Does not feel ill. No cough. No trauma.. 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 - Social history:: Smoking status: Patient denies any tobacco usage or history of. - Family history:: not pertinent. - Hospitalizations: : Patient was recently seen at. ROS: 00:18 Constitutional: Negative for fever, chills, and weight loss, Eyes: Negative for injury, rn pain, redness, and discharge, Neck: Negative for injury, pain, and swelling, Cardiovascular: Positive for chest pain Respiratory: Negative for shortness of breath, cough, wheezing, and pleuritic chest pain, Abdomen/GI: Positive for abdominal pain and constipation MS/Extremity: Negative for injury and deformity, Skin: Negative for injury, rash, and discoloration, Neuro: Negative for headache, weakness, numbness, tingling, and seizure, Exam: 00:18 Constitutional: Obese female, no acute distress Head/Face: Normocephalic, atraumatic. access rn: Regular rate and rhythm. No pulse deficits. Respiratory: No increased work of breathing, no retractions or nasal flaring. Abdomen/GI: Soft, non-tender Skin: Warm, dry, no sign of cellulitis MS/ Extremity: Pulses equal, no cyanosis. Neuro: Awake and alert, GCS 15, oriented to person, place, time. 00:26 ECG was reviewed by the Attending Physician. rn Vital Signs: 00:01 BP 149 / 80; Pulse 81; Resp 20; Temp 98.4(O); Pulse Ox 100% on 2 lpm NC; Weight 99.79 me1 kg; Height 5 ft. 5 in. ; Pain 9/10; 01:15 BP 175 / 100; Pulse 82; Resp 16; Pulse Ox 100% on 2 lpm NC; jb4 02:15 BP 140 / 77; Pulse 70; Resp 16; Pulse Ox 95% on 2 lpm NC; jb4 03:15 BP 111 / 97; Pulse 66; Resp 16; Pulse Ox 98% on 2 lpm NC; jb4 05:45 BP 156 / 84; Pulse 72; Resp 16; Pulse Ox 98% on 2 lpm NC; jb4 06:45 BP 172 / 81; Pulse 69; Resp 16; Pulse Ox 100% on 2 lpm NC; jb4 08:04 BP 163 / 79; Pulse 68; Resp 15; Pulse Ox 100% on 2 lpm NC; hb 00:01 Body Mass Index 36.61 (99.79 kg, 165.1 cm) me1 00:01 Pain Scale: Adult me1 MDM: 00:00 Patient medically screened. rn 02:55 ED course: Pt with successful passage of stool, hard, non-bloody. rn 03:12 Differential diagnosis: acute myocardial infarction, acute pericarditis, anxiety, rn coronary artery disease chest wall pain, congestive heart failure costochondritis, esophagitis, gastritis, gastroesophageal reflux disease (GERD), pneumonia, pneumothorax, pulmonary embolus, stable angina, thoracic aortic disection. HEART Score: History: Slightly Suspicious (0), ECG: Normal (0), Age: > 45 and < 65 years (1), Risk Factors: > or = 3 Risk factors for atherosclerotic disease (2), Troponin: < or = 1 x Normal Limit (0), Total Score = 3. Data reviewed: vital signs, nurses notes, lab test result(s), EKG, radiologic studies, CT scan, plain films, and as a result, I will discharge patient. Consideration of Admission/Observation Escalation of care including admission/observation considered. But repeat troponin is negative and recent admission with diagnosis of noncardiac chest pain, normal EKG, negative CT. Independent interpretation of the following test(s) in the Emergency Department EKG: See my EKG interpretation above X-Ray: My interpretation is Chest x-ray images negative for pneumothorax or pneumonia per my interpretation. Care significantly affected by the following chronic conditions: Hypertension, Coronary artery disease. Counseling: I had a detailed discussion with the patient and/or guardian regarding the historical points, exam findings, and any diagnostic results supporting the discharge/admit diagnosis, lab results, radiology results, the need for outpatient follow up, to return to the emergency department if symptoms worsen or persist or if there are any questions or concerns that arise at home. Response to treatment: the patient's symptoms have markedly improved after treatment, and as a result, I will discharge patient. Special discussion: Based on the patient's history, exam, and Dx evaluation, there is no indication for emergent intervention or inpatient Tx. It is understood by the patient/guardian that if the Sx's persist or worsen they need to return immediately for re-evaluation. Based on the patient's Hx, exam, and Dx evaluation, there is no indication for emergent surgery or inpatient Tx. It is understood by the patient/guardian that if the Sx's persist or worsen they need to return immediately for re-evaluation. I discussed with the patient/guardian in detail that at this point there is no indication for admission to the hospital. It is understood, however, that if the symptoms persist or worsen the patient needs to return immediately for re-evaluation. ED course: I have personally reviewed all of the results, including but not limited to blood tests and imaging deemed necessary to safely discharge this patient at this time. All results given to and printed out for patient. I personally went over all the results with the patient and answered all questions. Patient will follow-up with PCP and or specialist as discussed. Return precautions given and understood.. 02/18 00:03 Order name: Basic Metabolic Panel; Complete Time: 00: rn 02/18 00:03 Order name: CBC with Diff; Complete Time: 00: rn 02/18 00:03 Order name: NT PRO-BNP; Complete Time: rn 02/18 00:03 Order name: PT-INR; Complete Time: rn 02/18 00:03 Order name: Troponin HS; Complete Time: rn 02/18 02:24 Order name: Troponin High Sensitivity; Complete Time: 03:09 rn 02/18 00:03 Order name: XRAY Chest (1 view) rn 02/18 00:03 Order name: CT Chest For PE Angio rn 02/18 00:03 Order name: CT Head Brain wo Cont rn 02/18 00:03 Order name: CT Abd/Pelvis - IV Contrast Only rn 02/18 00:03 Order name: EKG; Complete Time: 00:04 rn 02/18 00:03 Order name: Cardiac monitoring; Complete Time: 00:24 rn 02/18 00:03 Order name: EKG - Nurse/Tech; Complete Time: 00:24 rn 02/18 00:03 Order name: IV Saline Lock; Complete Time: 00: rn 02/18 00:03 Order name: Labs collected and sent; Complete Time: 00: rn 02/18 00:03 Order name: O2 Per Protocol; Complete Time: 00: rn 02/18 00:03 Order name: O2 Sat Monitoring; Complete Time: rn EC: Rate is 80 beats/min. Rhythm is regular. QRS [place] is Normal. CO interval is normal. QRS rn interval is normal. QT interval is normal. No Q waves. T waves are Normal. No ST changes noted. Clinical impression: Normal ECG. Interpreted by me. Reviewed by me. Administered Medications: : Drug: Ondansetron IVP 4 mg IVP once; over 2 minutes Route: IVP; Site: right forearm; jb4 01:29 Drug: morphine IVP or IV 4 mg IVP once over 4 mins Route: IVP; Infused Over: 4 mins; jb4 Site: right forearm; 02:41 Drug: Fleet Enema CO 133 ml CO once; may repeat once Route: CO; kd3 Disposition Summary: 02/18/23 03:14 Discharge Ordered Notes: Location: Home rn Problem: new rn Symptoms: have improved rn Condition: Stable rn Diagnosis - Chest pain, unspecified rn - Constipation, unspecified rn - Fecal impaction rn Followup: rn - With: Private Physician - When: As needed - Reason: Recheck today's complaints, Re-evaluation by your physician Discharge Instructions: - Discharge Summary Sheet rn - Nonspecific Chest Pain, Adult rn - Constipation, Adult, [place] rn - Fecal Impaction rn Forms: - Medication Reconciliation Form rn - Thank You Letter rn - 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
[2023-02-18 08:36] VITALS: TEMP 98.4
[2023-02-18 08:42] VITALS: O2SAT 100
[2023-02-18 08:44] VITALS: BP 163/79
--- NOTE | 2023-02-18 19:40 | RAD REPORT ---
EXAM DESCRIPTION: RAD - Chest Single View - 02/18/2023 12:21 am CLINICAL HISTORY: 52 years Female, CHEST PAIN TECHNIQUE: 1 view (Single frontal view of the chest) COMPARISON: 02/16/2023 FINDINGS: Patient's body habitus results in projectional magnification artifact. LINES AND TUBES: Implantable loop recorder in place. CARDIOVASCULAR STRUCTURES: Cardiomegaly. Poststernotomy. Mild pulmonary venous congestion. LUNGS: No confluent areas of acute consolidation. PLEURA: No layering pleural effusions. No pneumothorax. BONES: No acute osseous abnormality of the thorax. IMPRESSION: 1. Cardiomegaly and mild pulmonary venous congestion. Electronically signed by: Berto Mtz MD 02/18/2023 12:32 AM CDT Due to temporary technical issues with the PACS/Fluency reporting system, reports are being signed by the in house radiologists without review as a courtesy to insure prompt reporting. The interpreting radiologist is fully responsible for the content of the report.
--- NOTE | 2023-02-18 19:44 | RAD REPORT ---
EXAM DESCRIPTION: CT - Chest For Pe Angio - 02/18/2023 6:51 am CLINICAL HISTORY: 52 years, Female, CHEST PAIN COMPARISON: None TECHNIQUE: Multiple transaxial tomograms of the chest were obtained from the lung apices through the lung bases utilizing 2 mm slice thickness at 2 mm interval reconstruction after the administration o f large bolus of IV contrast for complete opacification of the pulmonary arteries. Subsequent 3-D maximum intensity projection images were generated in the coronal and sagittal plane f or review. This exam was performed according to our departmental dose-optimization protocol, which includes auto mated exposure control, adjustment of the mA and/or kV according to patient size and/or use of iterat lul reconstruction technique. FINDINGS: Some of the images are compromised by breathing motion artifact limiting diagnostic value. The lungs parenchyma demonstrate dependent atelectatic changes. No evidence for pneumothorax. No sign ificant masses, nodules and/or consolidations are identified. There is elevation of the right hemid iaphragm. The trachea mainstem bronchus demonstrate to be normal. There is no significant pericardial or pleura l effusions. The thoracic aorta demonstrate to be within normal limits. There is a bovine arch/two-vessel aortic a [facility] sternotomy wires and pericardiac clips correspond to previous CABG. The heart is prominent in siz e. There are minimal coronary artery calcifications. There is no significant mediastinal and/or hilar lymphadenopathy. The axillary regions demonstrate to be clear. Pulmonary arteries demonstrate to be normal, no intraluminal defect are seen that would suggest pulmo nary embolus. The bone windows demonstrate there is minimal anterior spondylosis of the lower thoracic spine. Elevation of the abdomen and pelvis will give superior report. IMPRESSION: Some of the images are compromised by breathing motion artifact limiting diagnostic valu e. No evidence for pulmonary embolism and/or thoracic aortic dissection. Status post CABG. Mild cardiomegaly. Dependent atelectatic changes. Electronically signed by: Matteo Hazel MD 02/18/2023 2:06 AM CDT Due to temporary technical issues with the PACS/Fluency reporting system, reports are being signed by the in house radiologists without review as a courtesy to insure prompt reporting. The interpreting radiologist is fully responsible for the content of the report.
--- NOTE | 2023-02-18 19:47 | RAD REPORT ---
EXAM DESCRIPTION: CT - Head Brain Wo Cont - 02/18/2023 6:51 am CLINICAL HISTORY: 52 years, Female, SLURRED SPEECH, HX OF cva COMPARISON: 01/26/2023 FINDINGS: Multiple transaxial tomograms of the brain were obtained from the base of the skull to the vertex without contrast. 2-D multiplanar reformats and the coronal and sagittal plane were performed and reviewed. This exam was performed according to our departmental dose-optimization protocol, which includes auto mated exposure control, adjustment of the mA and/or kV according to patient size and/or use of iterat lul reconstruction technique. Brain parenchyma as well as the wilson and white matter differentiation demonstrate to be within normal limits. There is. Tubular matter changes of microvascular ischemia slightly more pronounced within t he right frontal deep white matter similar to prior study. Lateral ventricles and cisterns displace n ormal appearance. No intra or extra axial fluid collections were seen. The calvarium is intact with no evidence for fracture. The visualized portions of the paranasal sinuses and orbits demonstrate to be clear. IMPRESSION: No acute intracranial hemorrhage identified. Periventricular matter changes of microvascular ischemia slightly more pronounced within the right fr ontal deep white matter. No significant interval change. Electronically signed by: Matteo Hazel MD 02/18/2023 2:08 AM CDT Due to temporary technical issues with the PACS/Fluency reporting system, reports are being signed by the in house radiologists without review as a courtesy to insure prompt reporting. The interpreting radiologist is fully responsible for the content of the report.
--- NOTE | 2023-02-18 19:51 | RAD REPORT ---
EXAM DESCRIPTION: CT - Abdomen Pelvis W Contrast - 02/18/2023 6:50 am CLINICAL HISTORY: 52 years, Female, ABD PAIN COMPARISON: None. TECHNIQUE: Contrast-enhanced images of the abdomen and pelvis were performed utilizing 5 mm slice th ickness at 5 mm interval reconstruction from the lung bases to the ischial tuberosities after the adm inistration of IV contrast. In addition multiplanar reformats in the coronal and sagittal plane were obtained and reviewed. This exam was performed according to our departmental dose-optimization protocol, which includes auto mated exposure control, adjustment of the mA and/or kV according to patient size and/or use of iterat lul reconstruction technique. FINDINGS: Lung bases: Evaluation of the chest will give separate report Liver: The liver demonstrate to be within normal limits. Gallbladder: The gallbladder demonstrate to be within normal limits. No evidence for biliary duct dil atation Pancreas: The pancreas demonstrate to be within normal limits. Spleen: The spleen demonstrate to be within normal limits. Adrenal gland: The adrenal glands demonstrate to be normal. Kidneys: The kidneys demonstrate normal uptake of contrast media. There is no evidence for nephrolith iasis and/or hydronephrosis. GI: Grossly the unopacified stomach demonstrated presence of wire within the antrum of the stomach co rresponding to most likely neurostimulator. Otherwise the stomach, small bowel and large bowel demons trate to be within normal limits. There is no evidence for bowel dilatation/or free air. The appe ndix is normal. There is constipation with mild impaction at the rectosigmoid colon. Urinary bladder: The urinary bladder demonstrate to be within normal limits The uterus is absent. There are no adnexal masses Abdominal aorta: The abdominal aorta demonstrate to be within normal limits. Retroperitoneum: There is no retroperitoneal lymphadenopathy. There is no evidence for ascites/or abn ormal fluid collections Bones: The bone windows demonstrate to be within normal limits. No evidence for significant skeletal lesions. Soft tissues: The soft tissues demonstrate to be within normal limits. IMPRESSION: Constipation with mild impaction at the rectosigmoid colon. Status post hysterectomy. Electronically signed by: Matteo Hazel MD 02/18/2023 2:11 AM CDT Due to temporary technical issues with the PACS/Fluency reporting system, reports are being signed by the in house radiologists without review as a courtesy to insure prompt reporting. The interpreting radiologist is fully responsible for the content of the report.
--- NOTE | 2023-02-21 08:01 | EKG ---
Test Date: 2023-02-18 Test Time: 00:04:54 Rail Switch Operator: MARA MEASUREMENT RESULTS: Intervals: Rate: 80 SC: 146 QRSD: 76 QT: 380 QTc: 438 [place]: P: 68 SC: 146 QRS: -14 T: -1 INTERPRETIVE STATEMENTS: Normal sinus rhythm Normal ECG Compared to ECG 02/16/2023 01:57:48 ST (T wave) deviation no longer present Electronically Signed On 02-21-23 07:53:44 CDT by Elia Floyd
== END 2023-02-18 08:13 | disposition home or self-care (01) ==
LOC: ER 23:59
DX: R07.89 Other chest pain (principal); K56.41 Fecal impaction; E11.9 Type 2 diabetes mellitus without complications; I10 Essential (primary) hypertension; Z86.73 Personal history of transient ischemic attack (TIA), and cerebral infarction without residual deficits; Z95.1 Presence of aortocoronary bypass graft; Z95.818 Presence of other cardiac implants and grafts; Z88.8 Allergy status to other drugs, medicaments and biological substances
CPT/HCPCS: 93005; 85025; 80048; 36415; 85610; 84484 ×2; 83880; 70450; 71275; 74177; 71045; 96375; 96374; 99285; Q9967; J2405

== ENCOUNTER 2023-02-20 17:09 | Emergency (ER) | payer OTHER ==
[2023-02-20] MEDS ORDERED: MORPHINE 2 MG/ML SYR ONE ×2 (17:47→20:00)
[2023-02-20] MEDS ORDERED: METOCLOPRAMIDE 10 MG/2mL INJ ONE (17:47)
[2023-02-20] MEDS ORDERED: NA CHLORIDE 0.9% 1,000 ML ONE (17:47)
[2023-02-20 17:55] LABS: Absolute Lymphocytes (CBC) 2.3 K/uL (0.7-4.9); Hematocrit 25.7 % (36.0-45.0); Lymphocytes % 29.4 % (15.3-44.8); MCV 84.9 fL (80-100); MPV 9.7 fL (7.6-11.3); Platelets 211 thou/uL (152-406); RBC Red Blood Cell Count 3.03 M/uL (3.86-4.86)
[2023-02-20 18:12] LABS: Potassium 3.5 mEq/L (3.5-5.1); Troponin High Sensitivity 9.5 pg/mL (<58.9)
--- NOTE | 2023-02-20 18:31 | RAD REPORT ---
EXAM DESCRIPTION: RAD - Chest Single View - 02/20/2023 6:18 pm CLINICAL HISTORY: CHEST PAIN Chest pain. COMPARISON: <Comparisons> FINDINGS: Portable technique limits examination quality. Mild to moderate pulmonary edema. The heart is mildly enlarged in size. No displaced fractures.Sterno joshua wires present. IMPRESSION: Mild to moderate CHF.
--- NOTE | 2023-02-20 20:45 | EDPHYS ---
Physician Documentation [facility] Name: Romy Cortes Age: 52 yrs Sex: Female : 1970 Arrival Date: 02/20/2023 Time: 17:09 Bed 7 Private MD: ED Physician Grayson Mo HPI: 02/20 17:23 This 52 yrs old Black Female presents to ER via EMS with complaints of chest pain. ec2 17:23 Patient arrives today due to concern for chest pain. Patient reports left-sided chest ec2 pain, patient reports she is having pain rating to left arm. States that she had similar pain in the past. Patient reports no significant shortness of breath, no leg swelling, no difficulty breathing. Denies any cough and cold symptoms.. Historical: - Allergies: 17:16 amlodipine; mb9 - PMHx: 17:16 cardiac stent x2; Hypertension; Hyperlipidemia; link recorder; Diabetes - IDDM; CAD; mb9 Cerebrovascular accident; - PSHx: 17:16 CABG; Tonsillectomy; tubal ligation; mb9 - Immunization history:: Adult Immunizations up to date. - Social history:: Smoking status: Patient denies any tobacco usage or history of. ROS: 17:23 Constitutional: as per hpi ec2 Exam: 17:23 Constitutional: GEN: NAD Head: atraumatic Eyes: EOMI Ears: External ears are ec2 normal. CV: regular rate LUNGS: no respiratory distress ABD: non-distended SKIN: no evidence of rashes MSK: no evidence of trauma NEURO: moves all extremities equally Vital Signs: 17:14 BP 182 / 86; Pulse 78; Resp 18; Temp 98; Pulse Ox 98% on R/A; Weight 99.79 kg; Height 5 mb9 ft. 5 in. ; Pain 9/10; 18:47 BP 171 / 82; Pulse 75; Resp 18; Pulse Ox 100% on R/A; mb9 19:45 BP 180 / 95; Pulse 72; Resp 15; Temp 96; Pain 9/10; jj7 20:59 BP 176 / 92; Pulse 64; Resp 16; Pulse Ox 95% ; jj7 21:50 BP 130 / 76; Pulse 68; Resp 12; Pulse Ox 95% ; Pain 0/10; jj7 17:14 Body Mass Index 36.61 (99.79 kg, 165.1 cm) mb9 17:14 Pain Scale: Adult mb9 19:45 Pain Scale: Adult jj7 21:50 Pain Scale: Adult jj7 MDM: 17:16 Patient medically screened. ec2 17:23 ED course: Patient arrives today due to concern for chest pain. Examination remarkable ec2 for well-appearing nontoxic dividual is otherwise in no acute distress. Will obtain lab work, EKG, chest x-ray for further assessment of the patient complaint. Currently considering ACS, nonspecific chest pain, low suspicion for PE or dissection. We will give the patient morphine as well as crystalloid and Reglan. Patient also complaining of a nonspecific right-sided headache after the nitroglycerin administration by EMS. We will give the patient above medications for the headache pain.. 17:46 ED course: EKG independently reviewed and interpreted by me, shows normal sinus rhythm, ec2 rate of 76, no acute ST segment elevations, nonconcerning intervals.. 18:18 ED course: Metabolic profile is reassuring, some diminished renal function noted, CBC ec2 with slight anemia appreciated, troponin within normal ranges at 9.5. I will obtain a repeat troponin at 2 hours. . 18:32 ED course: Chest x-ray independently reviewed and interpreted by me, shows cardiomegaly ec2 with vascular congestion as well as patchy opacities, consistent with CHF. Patient is not hypoxic or working hard to breathe. . 20:44 Data reviewed: vital signs. ED course: Repeat troponin not significantly changed. On ec2 reassessment patient is well-appearing no acute distress. Will discharge home, return precautions given.. 02/20 17:23 Order name: Basic Metabolic Panel; Complete Time: 18:18 ec2 02/20 17:23 Order name: CBC with Diff; Complete Time: 18:18 ec2 02/20 17:23 Order name: Troponin HS; Complete Time: 18:18 ec2 02/20 18:33 Order name: Troponin High Sensitivity: at 1930; Complete Time: 20:44 ec2 02/20 17:23 Order name: XRAY Chest (1 view); Complete Time: 18:32 ec2 02/20 17:23 Order name: EKG; Complete Time: 17:24 ec2 02/20 17:23 Order name: Cardiac monitoring; Complete Time: 17:42 ec2 02/20 17:23 Order name: EKG - Nurse/Tech; Complete Time: 17:42 ec2 02/20 17:23 Order name: IV Saline Lock; Complete Time: 17:42 ec2 02/20 17:23 Order name: Labs collected and sent; Complete Time: 17:42 ec2 02/20 17:23 Order name: O2 Per Protocol; Complete Time: 17:42 ec2 02/20 17:23 Order name: O2 Sat Monitoring; Complete Time: 17:42 ec2 Administered Medications: 18:40 Drug: metoCLOPramide IVP 10 mg IVP once; over 1 to 2 minutes Route: IVP; Site: right mb9 antecubital; 18:53 Follow up: Response: No adverse reaction mb9 18:43 Drug: NS 0.9% IV 1000 ml IV at 1 bolus Per protocol; 1000 mL bolus Route: IV; Rate: 1 mb9 bolus; Site: right antecubital; 19:56 Follow up: IV Status: Completed infusion j7 18:43 Drug: morphine IVP or IV 2 mg IVP once over 4 mins Route: IVP; Infused Over: 4 mins; mb9 Site: right antecubital; 18:53 Follow up: Response: No adverse reaction mb9 20:00 Drug: morphine IVP or IV 2 mg IVP once over 4 mins Route: IVP; Infused Over: 4 mins; jj7 Site: right antecubital; 20:15 Follow up: Response: Marked relief of symptoms; Pain is decreased j7 Disposition Summary: 02/20/23 20:44 Discharge Ordered Notes: Location: Home ec2 Problem: chronic ec2 Condition: Stable ec2 Diagnosis - Chest pain, unspecified ec2 Followup: ec2 - With: Private Physician - When: - Reason: Continuance of care Discharge Instructions: - Discharge Summary Sheet ec2 - Nonspecific Chest Pain, Adult, [id number] ec2 Forms: - SBAR form pf1 - Medication Reconciliation Form ec2 - Thank You Letter ec2 - Antibiotic Education ec2 - Prescription Opioid Use ec2 - Patient Portal Instructions ec2 - Leadership Thank You Letter ec2 Signatures: Dispatcher MedHoDaniela Monge RN RN jj7 Martha Beckwith RN RN mb9 Mo, Grayson, MD MD ec2
--- NOTE | 2023-02-20 20:45 | ER ---
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 Gave 2 nitroglycerin's and 324 mg of Aspirin TELEPHONE ENGINEER.". Coronavirus screen: Vaccine status: Patient reports receiving the 2nd dose of the covid vaccine. Ebola Screen: No symptoms or risks identified at this time. Initial Sepsis Screen: Does the patient meet any 2 criteria? No. Patient's initial sepsis screen is negative. Does the patient have a suspected source of infection? No. Patient's initial sepsis screen is negative. Risk Assessment: Do you want to hurt yourself or someone else? Patient reports no desire to harm self or others. Onset of symptoms was February 20, 2023. 17:14 Method Of Arrival: EMS: [facility] mb9 17:14 Acuity: WYATT 3 mb9 Triage Assessment: 17:16 General: Appears uncomfortable, Behavior is calm, cooperative. Pain: Complains of pain mb9 in chest Pain radiates to left arm Pain currently is 9 out of 10 on a pain scale. Quality of pain is described as throbbing, Pain began suddenly, Is continuous. EENT: No signs and/or symptoms were reported regarding the EENT system. Neuro: Antoine Agitation-Sedation Scale (RASS): 0 - Alert and Calm Level of Consciousness is awake, alert, obeys commands, Oriented to person, place, time, situation, Appropriate for age. Cardiovascular: Reports chest pain, Heart tones S1 S2 present. Respiratory: Airway is patent Respiratory effort is even, unlabored, Respiratory pattern is regular, symmetrical, Breath sounds are clear bilaterally. GI: Abdomen is round non-distended, Bowel sounds present X 4 quads. Abd is soft and non tender X 4 quads. : No signs and/or symptoms were reported regarding the genitourinary system. Derm: Skin is pink, warm \\T\\ dry. Musculoskeletal: Range of motion: intact in all extremities. Historical: - Allergies: 17:16 amlodipine; mb9 - PMHx: 17:16 cardiac stent x2; Hypertension; Hyperlipidemia; link recorder; Diabetes - IDDM; CAD; mb9 Cerebrovascular accident; - PSHx: 17:16 CABG; Tonsillectomy; tubal ligation; mb9 - Immunization history:: Adult Immunizations up to date. - Social history:: Smoking status: Patient denies any tobacco usage or history of. Screenin:[address] [facility] ED Fall Risk Assessment (Adult) History of falling in the last 3 months, jj7 including since admission Yes- single mechanical fall (1 pt) Confusion or Disorientation No (0 pts) Intoxicated or Sedated No (0 pts) Impaired Gait Yes (1 pt) Mobility Assist Device Used No (0 pt) Altered Elimination Yes (1 pt) Score/Fall Risk Level 3 or more points = High Risk Oriented to surroundings, Maintained a safe environment, Educated pt \\T\\ family on fall prevention, incl call for assistance when getting out of bed. Abuse screen: Denies threats or abuse. Nutritional screening: No deficits noted. Tuberculosis screening: No symptoms or risk factors identified. Assessment: 17:17 Reassessment: see triage assessment. mb9 18:11 Reassessment: No changes from previously documented assessment. Patient and/or family mb9 updated on plan of care and expected duration. Pain level reassessed. Patient is alert, oriented x 3, equal unlabored respirations, skin warm/dry/pink. 19:10 Reassessment: ASSUMED CARE OF PT. PT LYING IN BED. NO DISTRESS NOTED. PT STATES CP IS jj7 STARTING TO COME BACK. BP ELEVATED ALL OTHER VS STABLE. CALL LEMUS IN REACH. SIDE RAILS UP FOR SAEFTY. 20:58 Reassessment: SPOKE WITH SURAJ AT [facility]. STATES HE WILL ARRANGE jj7 TRANSFER AND CALL BACK WITH ETA OF WHO IS PICKING PT UP. 21:50 Reassessment: [facility] AT BEDSIDE TO TAKE PT BACK TO [facility]. jj7 Vital Signs: 17:14 BP 182 / 86; Pulse 78; Resp 18; Temp 98; Pulse Ox 98% on R/A; Weight 99.79 kg; Height 5 mb9 ft. 5 in. ; Pain 9/10; 18:47 BP 171 / 82; Pulse 75; Resp 18; Pulse Ox 100% on R/A; mb9 19:45 BP 180 / 95; Pulse 72; Resp 15; Temp 96; Pain 9/10; jj7 20:59 BP 176 / 92; Pulse 64; Resp 16; Pulse Ox 95% ; jj7 21:50 BP 130 / 76; Pulse 68; Resp 12; Pulse Ox 95% ; Pain 0/10; jj7 17:14 Body Mass Index 36.61 (99.79 kg, 165.1 cm) mb9 17:14 Pain Scale: Adult mb9 19:45 Pain Scale: Adult jj7 21:50 Pain Scale: Adult jj7 ED Course: 17:11 Patient arrived in ED. iw 17:14 Martha Beckwith, KIAN is Primary Nurse. mb9 17:14 Arm band placed on. mb9 17:16 Triage completed. mb9 17:16 Grayson Mo MD is Attending Physician. ec2 17:17 Placed in gown. Bed in low position. Call light in reach. Side rails up X 1. Client mb9 placed on continuous cardiac and pulse oximetry monitoring. NIBP monitoring applied. teletypesetter monitor on. 17:42 Basic Metabolic Panel Sent. mb9 17:42 CBC with Diff Sent. mb9 17:42 Troponin HS Sent. mb9 18:20 XRAY Chest (1 view) In Process Unspecified. EDMS 18:28 Missed attempt(s): 22 gauge in left upper arm. Bleeding controlled, band aid applied, iw catheter tip intact. 18:28 Missed attempt(s): 22 gauge in left antecubital area. iw 18:33 Inserted saline lock: 20 gauge in right antecubital area, using aseptic technique. nj1 ,using aseptic technique. Ultrasound guided. Catheter tip well visualized within vasculature during placement. 20:08 Troponin High Sensitivity: at 1930 Sent. jj7 21:00 Provided Education on: DISCHARGE INSTRUCTIONS. jj7 21:00 No provider procedures requiring assistance completed. jj7 21:50 IV discontinued, intact, bleeding controlled, No redness/swelling at site. Pressure jj7 dressing applied. Administered Medications: 18:40 Drug: metoCLOPramide IVP 10 mg IVP once; over 1 to 2 minutes Route: IVP; Site: right mb9 antecubital; 18:53 Follow up: Response: No adverse reaction mb9 18:43 Drug: NS 0.9% IV 1000 ml IV at 1 bolus Per protocol; 1000 mL bolus Route: IV; Rate: 1 mb9 bolus; Site: right antecubital; 19:56 Follow up: IV Status: Completed infusion j 18:43 Drug: morphine IVP or IV 2 mg IVP once over 4 mins Route: IVP; Infused Over: 4 mins; mb9 Site: right antecubital; 18:53 Follow up: Response: No adverse reaction mb9 20:00 Drug: morphine IVP or IV 2 mg IVP once over 4 mins Route: IVP; Infused Over: 4 mins; jj7 Site: right antecubital; 20:15 Follow up: Response: Marked relief of symptoms; Pain is decreased j7 Medication: 17:18 VIS not applicable for this client. 9 Outcome: 20:44 Discharge ordered by . renetta 21:00 Condition: improved j 21:50 Discharged to skilled nursing. Report called to SURAJ herron 21:50 Discharge instructions given to patient, EMS, Instructed on discharge instructions, 22:09 Patient left the ED. guy Signatures: Dispatcher [employer] Jennifer Do, RN Daniela Vee RN RN jj7 Amena, Martha Clement RN RN mb9 Lauren Damon RN RN nj1 Grayson Mo MD MD ec2
[2023-02-20 22:36] VITALS: TEMP 96
[2023-02-20 22:37] VITALS: BP 176/92; O2SAT 95
--- NOTE | 2023-02-21 07:50 | EKG ---
Test Date: 2023-02-20 Test Time: 17:40:14 Logistics Officer: MB MEASUREMENT RESULTS: Intervals: Rate: 76 PA: 146 QRSD: 76 QT: 414 QTc: 465 [place]: P: 79 PA: 146 QRS: 113 T: -3 INTERPRETIVE STATEMENTS: Normal sinus rhythm Anterior infarct, age undetermined Abnormal ECG Compared to ECG 02/18/2023 00:04:54 Myocardial infarct finding now present Electronically Signed On 02-21-23 07:49:27 CDT by Elia Floyd
== END 2023-02-20 22:09 | disposition home or self-care (01) ==
LOC: ER 17:09
DX: R07.89 Other chest pain (principal); I10 Essential (primary) hypertension; E11.9 Type 2 diabetes mellitus without complications; Z95.1 Presence of aortocoronary bypass graft; Z95.818 Presence of other cardiac implants and grafts; Z86.73 Personal history of transient ischemic attack (TIA), and cerebral infarction without residual deficits; Z88.8 Allergy status to other drugs, medicaments and biological substances
CPT/HCPCS: 96361; 93005; 85025; 80048; 36415; 84484 ×2; 71045; 96375; 96374; 99285; J2765; J2270 ×2; J7030

== ENCOUNTER 2023-02-23 14:20 | Inpatient (IN) | payer OTHER ==
[2023-02-23] MEDS ORDERED: NITROGLYCERIN 0.4 MG/TAB SL ONE (14:51)
[2023-02-23 14:52] LABS: Absolute Lymphocytes (CBC) 0.3 K/uL (0.7-4.9); Hematocrit 26.9 % (36.0-45.0); Lymphocytes % 4.3 % (15.3-44.8); MCV 83.7 fL (80-100); MPV 9.4 fL (7.6-11.3); Platelets 218 thou/uL (152-406); RBC Red Blood Cell Count 3.22 M/uL (3.86-4.86)
[2023-02-23 15:07] LABS: ALT/SGPT 20 U/L (13-56); AST/SGOT 16 U/L (15-37); Albumin 3.3 g/dL (3.4-5.0); Alkaline Phosphatase 64 U/L (45-117); BUN Blood Urea Nitrogen 7 mg/dL (7-18); Bicarbonate 29 mEq/L (21-32); Bilirubin Total 0.4 mg/dL (0.2-1.0); Glomerular Filtration Rate 75 ml/min (=/>90); Glucose Level 187 mg/dL (74-106); Magnesium 1.8 mg/dL (1.6-2.4); NT PRO-BNP 1361 pg/mL (<125); Potassium 3.6 mEq/L (3.5-5.1); Protein, Total 7.6 g/dL (6.4-8.2); Sodium Level 138 mEq/L (136-145); Troponin High Sensitivity 11.1 pg/mL (<58.9)
[2023-02-23 15:13] LABS: Bilirubin Direct < 0.1 mg/dL (0-0.2); Bilirubin Indirect, Calculated ND mg/dL (0.2-0.8)
[2023-02-23] MEDS ORDERED: MORPHINE 4 MG/ML SYR ONE ×2 (15:16→19:40)
[2023-02-23] MEDS ORDERED: ONDANSETRON 4 MG/2 ML VIAL ONE (15:17)
--- NOTE | 2023-02-23 15:25 | RAD REPORT ---
EXAM DESCRIPTION: RADChest Single View02/23/2023 3:13 pm CLINICAL HISTORY: CHEST PAIN COMPARISON: Chest Single View dated 02/20/2023; Chest Single View dated 02/18/2023; Chest Single Vie w dated 02/16/2023; Chest Single View dated 01/29/2023; Chest Single View dated 01/23/2023 TECHNIQUE: Portable AP view of the chest. FINDINGS: Improving aeration in the left lower lobe. Partial improvement of central interstitial pro minence suggesting improving pulmonary edema or central congestion. No new focal consolidation. No pn eumothorax or effusion. Mild cardiomegaly, stable. Stable mediastinal contours, with sequelae of medi an sternotomy. IMPRESSION: Partial improvement, as above.
[2023-02-23] MEDS ORDERED: ACETAMINOPHEN 500 MG TAB ONE (15:31)
--- NOTE | 2023-02-23 16:42 | EDPHYS ---
Physician Documentation [facility] Name: Romy Cortes Age: 52 yrs Sex: Female : 1970 Arrival Date: 02/23/2023 Time: 14:20 Bed 20 Private MD: ED Physician Keyon Milligan HPI: 02/23 14:39 This 52 yrs old Black Female presents to ER via EMS with complaints of Chest Pain. rt 14:39 Patient with history of coronary disease presents to the ED with about 1 hour of a rt substernal chest pain rating to the left arm. Reports some nausea but no shortness of breath. Denies other acute complaints at this time. Symptoms are aching nature, not otherwise radiating, no other aggravating or alleviating factors.. Historical: - Allergies: 14:23 amlodipine; eh3 - PMHx: 14:23 CAD; cardiac stent x2; Cerebrovascular accident; Diabetes - IDDM; Hyperlipidemia; eh3 Hypertension; link recorder; - PSHx: 14:23 CABG; Tonsillectomy; tubal ligation; eh3 - Immunization history:: Adult Immunizations up to date. - Social history:: Smoking status: unknown. - Family history:: not pertinent. ROS: 14:39 Constitutional: Negative for fever, chills, and weight loss, Cardiovascular: Negative rt for chest pain, palpitations, and edema, Respiratory: Negative for shortness of breath, cough, wheezing, and pleuritic chest pain, Abdomen/GI: Negative for abdominal pain, nausea, vomiting, diarrhea, and constipation, MS/Extremity: Negative for injury and deformity, Skin: Negative for injury, rash, and discoloration, Neuro: Negative for headache, weakness, numbness, tingling, and seizure, Psych: Negative for depression, anxiety, suicide ideation, homicidal ideation, and hallucinations, 14:39 Cardiovascular: Positive for chest pain, Negative for edema, Exam: 14:39 Constitutional: This is a well developed, well nourished patient who is awake, alert, rt and in no acute distress. Head/Face: Normocephalic, atraumatic. Chest/axilla: Normal chest wall appearance and motion. Nontender with no deformity. No lesions are appreciated. Cardiovascular: Regular rate and rhythm with a normal S1 and S2. No gallops, murmurs, or rubs. Normal PMI, no JVD. No pulse deficits. Respiratory: Lungs have equal breath sounds bilaterally, clear to auscultation and percussion. No rales, rhonchi or wheezes noted. No increased work of breathing, no retractions or nasal flaring. Abdomen/GI: Soft, non-tender, with normal bowel sounds. No distension or tympany. No guarding or rebound. No evidence of tenderness throughout. Skin: Warm, dry with normal turgor. Normal color with no rashes, no lesions, and no evidence of cellulitis. MS/ Extremity: Pulses equal, no cyanosis. Neurovascular intact. Full, normal range of motion. Neuro: Awake and alert, GCS 15, oriented to person, place, time, and situation. Cranial nerves II-XII grossly intact. Motor strength 5/5 in all extremities. Sensory grossly intact. Cerebellar exam normal. Normal gait. Psych: Awake, alert, with orientation to person, place and time. Behavior, mood, and affect are within normal limits. 15:51 ECG was reviewed by the Attending Physician. rt Vital Signs: 14:30 BP 195 / 90; Pulse 95; Resp 20; Temp 100.4(O); Pulse Ox 94% on R/A; Weight 99.79 kg; eh3 Height 5 ft. 5 in. ; Pain 9/10; 15:00 BP 172 / 89; Pulse 91; Resp 17; Pulse Ox 99% on 2 lpm NC; eh3 15:30 BP 148 / 79; Pulse 82; Resp 14; Pulse Ox 100% on 2 lpm NC; eh3 16:00 BP 134 / 73; Pulse 78; Resp 12; Pulse Ox 98% on 2 lpm NC; eh3 16:30 BP 149 / 74; Pulse 77; Resp 12; Pulse Ox 99% on 2 lpm NC; eh3 17:00 BP 142 / 79; Pulse 79; Resp 12; Pulse Ox 98% on 2 lpm NC; eh3 17:30 Temp 100.3(O); eh3 17:30 BP 132 / 78; Pulse 78; Resp 12; Pulse Ox 100% on 2 lpm NC; eh3 18:00 BP 122 / 72; Pulse 72; Resp 14; Pulse Ox 100% on 2 lpm NC; eh3 18:30 BP 123 / 67; Pulse 71; Resp 15; Pulse Ox 100% on 2 lpm OR; 3 14:30 Body Mass Index 36.61 (99.79 kg, 165.1 cm) 3 14:30 Pain Scale: Adult eh3 MDM: 14:25 Patient medically screened. rt 17:11 Differential diagnosis: Flu, pneumonia, pneumothorax, acute coronary syndrome, rt nonspecific chest pain. HEART Score: History: Moderately Suspicious (1), ECG: Non specific repolarization disturbance / LBTB / PM (1), Age: > 45 and < 65 years (1), Risk Factors: > or = 3 Risk factors for atherosclerotic disease (2), Troponin: < or = 1 x Normal Limit (0), Total Score = 5. The patient was not given aspirin in the Emergency Department. Patient reports taking aspirin within the past 24 hours. Data reviewed: vital signs, nurses notes, old medical records, lab test result(s), EKG, radiologic studies. Consideration of Admission/Observation Patient was admitted/placed on observation. Management of patient was discussed with the following: Hospitalist: Agrees to admit. Independent interpretation of the following test(s) in the Emergency Department X-Ray: My interpretation is Mild pulmonary edema seen on interpretation of x-ray images. Test considered but Not performed: CT: Low suspicion for PE, CT angiogram not indicated. Care significantly affected by the following chronic conditions: Coronary artery disease. Counseling: I had a detailed discussion with the patient and/or guardian regarding the historical points, exam findings, and any diagnostic results supporting the discharge/admit diagnosis, lab results, radiology results, the need for further work-up and treatment in the hospital. Response to treatment: the patient's symptoms have markedly improved after treatment. 02/23 14:25 Order name: Basic Metabolic Panel; Complete Time: 15:26 rt 02/23 14:25 Order name: CBC with Diff; Complete Time: 15:01 rt 02/23 14:25 Order name: LFT's; Complete Time: 15:26 rt 02/23 14:25 Order name: Magnesium; Complete Time: 15:26 rt 02/23 14:25 Order name: NT PRO-BNP; Complete Time: 15:26 rt 02/23 14:25 Order name: Troponin HS; Complete Time: 15:26 rt 02/23 15:07 Order name: Influenza Screen (a \T\ B); Complete Time: 15:41 rt 02/23 14:25 Order name: XRAY Chest (1 view); Complete Time: 15:26 rt 02/23 14:25 Order name: EKG; Complete Time: 14:26 rt 02/23 16:56 Order name: CONS Physician Consult EDMS 02/23 14:25 Order name: Cardiac monitoring; Complete Time: 14:34 rt 02/23 14:25 Order name: EKG - Nurse/Tech; Complete Time: 14:34 rt 02/23 14:25 Order name: IV Saline Lock; Complete Time: 14:34 rt 02/23 14:25 Order name: Labs collected and sent; Complete Time: 14:34 rt 02/23 14:25 Order name: O2 Per Protocol; Complete Time: 14:34 rt 02/23 14:25 Order name: O2 Sat Monitoring; Complete Time: 14:34 rt EC:51 Rate is 93 beats/min. Rhythm is regular, Normal Sinus Rhythm with No ectopy. Right axis rt deviation noted. WV interval is normal. QRS interval is normal. QT interval is normal. No Q waves. Clinical impression: NSR w/ Non-specific ST/T Changes. Administered Medications: 14:38 Drug: Nitroglycerin Sublingual 0.4 mg Sublingual once; every five minute if needed x3 eh3 Route: Sublingual; 14:43 Drug: Nitroglycerin Sublingual 0.4 mg Sublingual once; every five minute if needed x3 eh3 Route: Sublingual; 14:48 Drug: Nitroglycerin Sublingual 0.4 mg Sublingual once; every five minute if needed x3 eh3 Route: Sublingual; 14:54 Follow up: Response: Pain is unchanged, physician notified [facility] 15:12 Drug: morphine IVP or IV 4 mg IVP once over 4 mins Route: IVP; Infused Over: 4 mins; 3 Site: right antecubital; 16:00 Follow up: Response: No adverse reaction; Pain is decreased; RASS: Alert and Calm (0) [facility] 15:12 Drug: Ondansetron IVP 4 mg IVP once; over 2 minutes Route: IVP; Site: right antecubital;3 16:00 Follow up: Response: No adverse reaction [facility] 15:12 Drug: Acetaminophen PO 1000 mg PO once Route: PO; 3 17:30 Follow up: Temp 100.3 Oral; Response: No adverse reaction; Temperature is unchanged 3 Disposition Summary: 02/23/23 16:41 Hospitalization Ordered Notes: Hospitalization Status: Observation rt Provider: Arnaldo Freitas rt Location: Telemetry/MedSurg (observation) rt Condition: Stable rt Problem: an acute exacerbation rt Symptoms: have improved rt Bed/Room Type: Standard rt Room Assignment: 215(02/23/23 18:30) dw Diagnosis - Chest pain, unspecified rt Forms: - Medication Reconciliation Form rt - SBAR form rt - Leadership Thank You Letter rt Signatures: Dispatcher [employer] Natasha Vivas, RN RN dw Kelly Patton RN RN eh3 Keyon Milligan MD MD rt Corrections: (The following items were deleted from the chart) 18:30 16:41 rt dw
--- NOTE | 2023-02-23 16:42 | ER ---
Nurse's Notes [facility] Name: Romy Cortes Age: 52 yrs Sex: Female : 1970 Arrival Date: 02/23/2023 Time: 14:20 Bed 20 Private MD: Diagnosis: Chest pain, unspecified Presentation: 02/23 14:22 Chief complaint: EMS states: toned out to [facility] for left sided chest pain radiating eh3 down left arm, and right latter day pain started this afternoon. Coronavirus screen: Vaccine status: Patient reports receiving the 2nd dose of the covid vaccine. Ebola Screen: No symptoms or risks identified at this time. Risk Assessment: Do you want to hurt yourself or someone else? Patient reports no desire to harm self or others. Onset of symptoms was February 23, 2023. 14:22 Method Of Arrival: EMS: [facility] 14:22 Acuity: WYATT 2 [facility] 14:25 Care prior to arrival: Glucose check: 222. [facility] 14:30 Initial Sepsis Screen: Does the patient meet any 2 criteria? HR > 90 bpm. No. Patient's 3 initial sepsis screen is negative. Does the patient have a suspected source of infection? No. Patient's initial sepsis screen is negative. Triage Assessment: 14:23 General: Appears in no apparent distress. uncomfortable, Behavior is cooperative. Pain: 3 Complains of pain in anterior aspect of left upper chest. Neuro: Level of Consciousness is awake, alert, obeys commands, Oriented to person, place, time, situation. Cardiovascular: Capillary refill < 3 seconds Patient's skin is warm and dry. Respiratory: Airway is patent Respiratory effort is even, unlabored, Respiratory pattern is regular, symmetrical. GI: Abdomen is round non-distended. Derm: Skin is pink, warm \T\ dry. Musculoskeletal: Circulation, motion, and sensation intact. Historical: - Allergies: 14:23 amlodipine; eh3 - PMHx: 14:23 CAD; cardiac stent x2; Cerebrovascular accident; Diabetes - IDDM; Hyperlipidemia; eh3 Hypertension; link recorder; - PSHx: 14:23 CABG; Tonsillectomy; tubal ligation; eh3 - Immunization history:: Adult Immunizations up to date. - Social history:: Smoking status: unknown. - Family history:: not pertinent. Screenin:33 [facility] ED Fall Risk Assessment (Adult) Score/Fall Risk Level 0 - 2 = Low Risk. Abuse eh3 screen: Denies threats or abuse. Denies injuries from another. Nutritional screening: No deficits noted. Tuberculosis screening: No symptoms or risk factors identified. Assessment: 14:33 Reassessment: No changes from previously documented assessment. See triage assessment. eh3 Pain: Pain radiates to left arm Pain began 2 hours ago. 15:30 Reassessment: Patient appears in no apparent distress at this time. Patient and/or eh3 family updated on plan of care and expected duration. Pain level reassessed. Patient is alert, oriented x 3, equal unlabored respirations, skin warm/dry/pink. 16:30 Reassessment: Patient appears in no apparent distress at this time. Patient and/or eh3 family updated on plan of care and expected duration. Pain level reassessed. Patient is alert, oriented x 3, equal unlabored respirations, skin warm/dry/pink. 17:30 Reassessment: Patient appears in no apparent distress at this time. Patient and/or eh3 family updated on plan of care and expected duration. Pain level reassessed. Patient is alert, oriented x 3, equal unlabored respirations, skin warm/dry/pink. 18:30 Reassessment: Patient appears in no apparent distress at this time. Patient and/or eh3 family updated on plan of care and expected duration. Pain level reassessed. Patient is alert, oriented x 3, equal unlabored respirations, skin warm/dry/pink. 18:36 Reassessment: Failed attempt to call report to 2nd floor, power cleaner operator states no nurse is [facility] assigned that patient and they don't know whose patient it will be. Vital Signs: 14:30 BP 195 / 90; Pulse 95; Resp 20; Temp 100.4(O); Pulse Ox 94% on R/A; Weight 99.79 kg; 3 Height 5 ft. 5 in. ; Pain 9/10; 15:00 BP 172 / 89; Pulse 91; Resp 17; Pulse Ox 99% on 2 lpm NC; eh3 15:30 BP 148 / 79; Pulse 82; Resp 14; Pulse Ox 100% on 2 lpm NC; eh3 16:00 BP 134 / 73; Pulse 78; Resp 12; Pulse Ox 98% on 2 lpm NC; eh3 16:30 BP 149 / 74; Pulse 77; Resp 12; Pulse Ox 99% on 2 lpm NC; eh3 17:00 BP 142 / 79; Pulse 79; Resp 12; Pulse Ox 98% on 2 lpm NC; eh3 17:30 Temp 100.3(O); eh3 17:30 BP 132 / 78; Pulse 78; Resp 12; Pulse Ox 100% on 2 lpm NC; eh3 18:00 BP 122 / 72; Pulse 72; Resp 14; Pulse Ox 100% on 2 lpm NC; eh3 18:30 BP 123 / 67; Pulse 71; Resp 15; Pulse Ox 100% on 2 lpm NC; eh3 14:30 Body Mass Index 36.61 (99.79 kg, 165.1 cm) eh3 14:30 Pain Scale: Adult [facility] ED Course: 14:22 Patient arrived in ED. 3 14:22 Keyon Milligan MD is Attending Physician. rt 14:23 Triage completed. 3 14:23 Arm band placed on. 3 14:33 Patient has correct armband on for positive identification. Bed in low position. Call [facility] light in reach. Side rails up X2. Provided Education on: use of call valdez. Client placed on continuous cardiac and pulse oximetry monitoring. NIBP monitoring applied. 14:33 Oxygen administration via nasal cannula \T\ 2L/min. eh3 14:34 Kelly Patton, RN is Primary Nurse. 3 14:36 Basic Metabolic Panel Sent. 6 14:36 CBC with Diff Sent. bc6 14:36 LFT's Sent. 6 14:36 Magnesium Sent. 6 14:36 NT PRO-BNP Sent. 6 14:36 Troponin HS Sent. 6 14:37 Inserted saline lock: 24 gauge in right antecubital area, using aseptic technique. bc6 Blood collected. 15:15 XRAY Chest (1 view) In Process Unspecified. EDMS 15:18 Influenza Screen (a \T\ B) Sent. bc6 16:41 Arnaldo Freitas is Hospitalizing Provider. rt 18:38 No provider procedures requiring assistance completed. Patient admitted, IV remains in eh3 place. Administered Medications: 14:38 Drug: Nitroglycerin Sublingual 0.4 mg Sublingual once; every five minute if needed x3 3 Route: Sublingual; 14:43 Drug: Nitroglycerin Sublingual 0.4 mg Sublingual once; every five minute if needed x3 eh3 Route: Sublingual; 14:48 Drug: Nitroglycerin Sublingual 0.4 mg Sublingual once; every five minute if needed x3 eh3 Route: Sublingual; 14:54 Follow up: Response: Pain is unchanged, physician notified 3 15:12 Drug: morphine IVP or IV 4 mg IVP once over 4 mins Route: IVP; Infused Over: 4 mins; 3 Site: right antecubital; 16:00 Follow up: Response: No adverse reaction; Pain is decreased; RASS: Alert and Calm (0) 3 15:12 Drug: Ondansetron IVP 4 mg IVP once; over 2 minutes Route: IVP; Site: right antecubital;3 16:00 Follow up: Response: No adverse reaction 3 15:12 Drug: Acetaminophen PO 1000 mg PO once Route: PO; eh3 17:30 Follow up: Temp 100.3 Oral; Response: No adverse reaction; Temperature is unchanged [facility] Medication: 18:38 VIS not applicable for this client. 3 Outcome: 16:41 Decision to Hospitalize by Provider. rt 19:43 Admitted to Med/surg accompanied by nurse, via stretcher, room 215, with chart, as6 19:43 Condition: stable 19:43 Instructed on the need for admit, 19:43 Patient left the ED. as6 Signatures: Dispatcher [employer] EDDonald Dhaliwal RN RN as6 Kelly Patton RN RN eh3 Keyon Milligan MD MD rt Tammie Mays 6 Corrections: (The following items were deleted from the chart) 14:31 14:22 Chief complaint: EMS states: toned out to [facility] for left sided chest pain 3 3 14:33 14:30 BP 195 / 90; Pulse 95bpm; Resp 16bpm; Pulse Ox 94% RA; Temp 100.4F Oral; Pain 3 01/01, Adult; 3
--- NOTE | 2023-02-23 16:52 | P.HP ---
Certification for Inpatient Patient admitted to: Observation With expected LOS: <2 Midnights Patient will require the following post-hospital care: None Practitioner: I am a practitioner with admitting privileges, knowledge of patient current condition, hospital course, and medical plan of care. Services: Services provided to patient in accordance with Admission requirements found in Title 42 Section 412.3 of the Code of Federal Regulations <Radha Springer - Last Filed: 02/23/23 17:38> Patient History Date of Service: 02/23/23 Reason for admission: Chest pain History of Present Illness: 52-year-old -[place]ian female with a past medical history hypertension, CAD, PCI x2, CABG, insulin-dependent diabetes mellitus, presents to the emergency room with chest pain from [facility]. She reports chest pain is substernal, radiates to her left arm. Chest pain started yesterday, worse today. She reports associated shortness of breath. She reports medication compliance. 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 She denies fever, edema, cough, nausea vomiting diarrhea, Dizziness. She was treated with morphine 4 mg, nitroglycerin in the emergency room with some relief. Plan to admit for acute on chronic heart failure, chest pain rule out [place]. ER course EKG normal sinus rhythm rate 93, normal sinus rhythm with nonspecific ST changes,Laboratory evaluation normocytic anemia 8.7 26.9, early left shift 76.6, BUN potassium normal, elevated BNP 1361, troponin normal at 11.1, hypoalbumin 3.3, blood glucose 187, chest x-ray improving variation of the left lower lobe, partial improvement of central interstitial prominence suggesting evolving pulmonary edema or central congestion. No new focal consolidation. No pneumothorax no pulmonary effusion, mild cardiomegaly. Flu A/B negative - Past Medical/Surgical History Diabetic: Yes -: hyperlipidemia -: hypertension -: Type 2 diabetes -: CVA -: CAD status post CABG -: Obesity -: hysterectomy -: hypertension -: tonsilectomy -: -: lumber spinal fusion -: cardiac stents x 2 2016 -: Gastric pacemaker/gastroparesis Psychosocial/ Personal History: Patient currently at long-term for rehab after CVA - Family History Father -: Heart disease, Hypertension, Diabetes, Stroke Mother Notes: no medical history - Social History Alcohol use: No CD- Drugs: No Caffeine use: No <Radha Springer - Last Filed: 02/23/23 17:38> Date of Service: 02/23/23 <bravo patiño - Last Filed: 02/25/23 15:12> Allergies amlodipine Allergy (Intermediate, Verified 02/23/23 17:27) Hives Home Medications: Aspirin [Ecotrin 81 MG] 81 mg PO DAILY #30 tablet. 03/19/16 Atorvastatin Calcium [Lipitor*] 80 mg PO BEDTIME 09/01/21 Clopidogrel Bisulfate [Plavix] 75 mg PO DAILY 09/01/21 Ezetimibe [Zetia] 10 mg PO DAILY 09/01/21 Furosemide 20 mg PO DAILY 09/01/21 Gabapentin 400 mg PO DAILY 09/01/21 Nitroglycerin [Nitrostat*] 0.4 mg SL [id number] PRN 01/27/23 carvediloL [Coreg] 25 mg PO BID #60 tab 01/27/23 lisinopriL [Prinivil*] 40 mg PO DAILY #30 tab 01/27/23 Fluoxetine HCl [Prozac] 10 mg PO DAILY 02/23/23 Insulin Glargine,Hum.rec.anlog [Lantus Solostar] 35 unit SQ DAILY 02/23/23 Insulin Lispro [Humalog] See Protocol SQ ACHS 02/23/23 Isosorbide Mononitrate [Isosorbide Mononitrate ER] 30 mg PO DAILY 02/23/23 Lactulose 10 gm PO Q12HP PRN 02/23/23 Lidocaine 4% Patch [Lidoderm 5% Patch] 1 patch TD DAILY 02/23/23 Melatonin [Melatoninmax] 10 mg PO BEDTIME 02/23/23 Omeprazole [Prilosec] 40 mg PO DAILY 02/23/23 Promethazine Tab [Phenergan] 25 mg PO Q6HP PRN 02/23/23 Trazodone HCl 50 mg PO BEDTIME PRN PRN 02/23/23 hydrOXYzine HCL [Atarax] 50 mg PO Q6HP PRN 02/23/23 Review of Systems 10-point ROS is otherwise unremarkable <Radha Springer - Last Filed: 02/23/23 17:38> Physical Examination - Physical Exam General: Alert, In no apparent distress, Oriented x3, Obese HEENT: Atraumatic, Normocephalic, PERRLA Neck: Supple, 2+ carotid pulse no bruit, JVD not distended Respiratory: Normal air movement, Diminished Cardiovascular: No edema, Normal pulses, Regular rate/rhythm Capillary refill: <2 Seconds Gastrointestinal: Normal bowel sounds, Soft and benign, Other (obese) Musculoskeletal: No clubbing, Other (moderate generalized weakness) Integumentary: No rashes, No breakdown Neurological: Normal speech, Normal strength at 5/5 x4 extr, Sensation intact - Studies Laboratory Data (last 24 hrs) 02/23/23 02/23/23 14:35 14:35 WBC 6.60 Hgb 8.7 L Hct 26.9 L Plt Count 218 Sodium 138 Potassium 3.6 BUN 7 Creatinine 0.91 Glucose 187 H Magnesium 1.8 Total Bilirubin 0.4 AST 16 ALT 20 Alkaline Phosphatase 64 Microbiology Data (last 24 hrs): 02/23/23 15:15 Nasopharnyx Influenza Type A Antigen Screen - Final 02/23/23 15:15 Nasopharnyx Influenza Type B Antigen Screen - Final <Radha Springer - Last Filed: 02/23/23 17:38> Assessment and Plan - Plan - Plan Assessment and plan Chest pain rule out [place] Acute on chronic heart failure unknown baseline cardiology consult, telemetry, as needed analgesics, nitro, aspirin, antiemetics, diuretics Trend troponins, trend BNP, Daily weight, I&O EKG normal sinus rhythm rate 93, normal sinus rhythm with nonspecific ST changes,Laboratory evaluation early left shift 76.6, BUN potassium normal, elevated BNP 1361, troponin normal at 11.1, chest x-ray improving variation of the left lower lobe, partial improvement of central interstitial prominence suggesting evolving pulmonary edema or central congestion. No new focal consolidation. No pneumothorax no pulmonary effusion, mild cardiomegaly. Flu AMB negative ECHO 01/25/23 COMMENTS: 1. POOR WINDOWS 2. OVERALL LEFT VENTRICULAR EJECTION FRACTION IS NORMAL 55-60 History of CAD with CABG Hypertension essential Resume appropriate home medications Insulin-dependent diabetes blood glucose 187 Accu-Cheks, sliding scale insulin, resume home insulin Normocytic anemia Trend H&H normocytic anemia 8.7 26.9, Hypoalbuminemia hypoalbumin 3.3 hyperlipidemia Resume appropriate home meds, lipid panel in a.m. N.p.o. Full code DVT prophylaxis Discharge Plan: Home Plan to discharge in: 24 Hours - Advance Directives Does patient have a Living Will: No Does patient have a Durable POA for Healthcare: No - Code Status/Comfort Care Code Status: Full Code Physician Review: Patient Assessed, Agree with Above Assessment and Plan Critical Care: No Time Spent Managing Pts Care (In Minutes): 50 <Radha Springer - Last Filed: 02/23/23 17:38> - Plan Patient with a history of recurrent chest pain. Recent positive stress test. History of significant coronary artery disease. Trend troponin Cardiology consult Resume home medications for CAD NTG as needed. <bravo patiño - Last Filed: 02/25/23 15:12>
[2023-02-23] MEDS: FUROSEMIDE 40 MG/4 ML VIAL IV SCH (18:44)
[2023-02-23] MEDS ORDERED: FUROSEMIDE 40 MG/4 ML VIAL ONE (19:21)
[2023-02-23] MEDS: MORPHINE 4 MG/ML SYR IV PRN (19:24)
[2023-02-23 20:22] VITALS: BMI 36.6
[2023-02-23] MEDS: INSULIN REGULAR (HUMAN) 100 UNIT/ML SQ SCH (21:00)
[2023-02-23] MEDS ORDERED: HOME MED 1 EA UNK (Buspirone Hcl [Buspar] 10 MG Tablet) PO SCH (21:00)
[2023-02-23] MEDS: INSULIN GLARGINE 100 UNIT/ML SQ SCH (21:00)
[2023-02-23] MEDS: HYDRALAZINE HCL 25 MG TABLET PO SCH (21:50)
[2023-02-23] MEDS: ATORVASTATIN 80 MG TAB PO SCH (21:50)
[2023-02-23] MEDS: BUSPIRONE HCL 5 MG TABLET PO SCH (21:50)
[2023-02-23] MEDS: carvediloL 25 MG TAB PO SCH (21:51)
[2023-02-24 02:36] LABS: Absolute Lymphocytes (CBC) 1.1 K/uL (0.7-4.9); Lymphocytes % 21.4 % (15.3-44.8); MCV 85.2 fL (80-100); MPV 9.6 fL (7.6-11.3); Platelets 164 thou/uL (152-406); RBC Red Blood Cell Count 2.93 M/uL (3.86-4.86)
[2023-02-24 03:01] LABS: Magnesium 1.4 mg/dL (1.6-2.4)
[2023-02-24 03:36] LABS: Anisocytosis 1+; Blood Morphology Comment NOTED (NOT SEEN); Platelet Estimate ADEQ
[2023-02-24] MEDS: MORPHINE 4 MG/ML SYR IV PRN ×3 (06:04→20:33)
[2023-02-24] MEDS: INSULIN REGULAR (HUMAN) 100 UNIT/ML SQ SCH ×4 (07:30→20:33)
[2023-02-24] MEDS ORDERED: ASPIRIN 325 MG TAB PO SCH (09:00)
[2023-02-24] MEDS ORDERED: ISOSORBIDE MONONITRATE 20 MG PO SCH (09:00)
[2023-02-24] MEDS: GABAPENTIN 300 MG CAP PO SCH (09:55)
[2023-02-24] MEDS: lisinopriL 20 MG TAB PO SCH (10:00)
[2023-02-24] MEDS: HYDRALAZINE HCL 25 MG TABLET PO SCH ×2 (10:01→20:32)
[2023-02-24] MEDS: CLOPIDOGREL 75 MG TABLET PO SCH (10:01)
[2023-02-24] MEDS: EZETIMIBE 10 MG TAB PO SCH (10:02)
[2023-02-24] MEDS: SERTRALINE HCL 50 MG TAB PO SCH (10:02)
[2023-02-24] MEDS: BUSPIRONE HCL 5 MG TABLET PO SCH ×2 (10:02→20:29)
[2023-02-24] MEDS: carvediloL 25 MG TAB PO SCH ×2 (10:04→20:31)
[2023-02-24] MEDS: ISOSORBIDE MONO 10 MG TAB PO SCH (10:05)
[2023-02-24] MEDS: ACETAMINOPHEN 500 MG TAB PO PRN ×2 (10:11→18:54)
[2023-02-24] MEDS: ONDANSETRON 4 MG/2 ML VIAL IV PRN (10:11)
[2023-02-24] MEDS: FUROSEMIDE 40 MG/4 ML VIAL IV SCH ×2 (10:11→18:53)
[2023-02-24] MEDS ORDERED: Magnesium Sulfate 2gm IVPB 2 G/50 ML BAG IV ONE (10:49)
--- NOTE | 2023-02-24 13:36 | P.PN ---
Subjective Date of Service: 02/24/23 Chief Complaint: Chest pain Patient reports intermittent chest pain. She denies shortness of breath. Physical Examination - Vital Signs Temperature: 98.6 F Blood Pressure: 119/65 Pulse: 67 Respirations: 16 Pulse Ox (%): 100 - Studies Laboratory Data (last 24 hrs) 02/23/23 02/23/23 14:35 14:35 WBC 6.60 Hgb 8.7 L Hct 26.9 L Plt Count 218 Sodium 138 Potassium 3.6 BUN 7 Creatinine 0.91 Glucose 187 H Magnesium 1.8 Total Bilirubin 0.4 AST 16 ALT 20 Alkaline Phosphatase 64 Microbiology Data (last 24 hrs): 02/23/23 15:15 Nasopharnyx Influenza Type A Antigen Screen - Final 02/23/23 15:15 Nasopharnyx Influenza Type B Antigen Screen - Final Assessment And Plan - Plan Physical Exam General: Alert, In no apparent distress, Oriented x3, Obese Neck: Supple, JVD not distended Respiratory: Normal air movement, Diminished Cardiovascular: No edema, Normal pulses, Regular rate/rhythm Gastrointestinal: Normal bowel sounds, Soft and benign, Other (obese) Musculoskeletal: No clubbing. Integumentary: No rashes, No breakdown Neurological: Normal speech, Normal strength at 5/5 x4 extr, Sensation intact Assessment and plan Chest pain rule out [place] Angina History of CAD Acute on chronic diastolic heart failure Positive stress test 1 month ago. Troponin trended negative. cardiology consulted-awaiting input as needed analgesics, nitro, aspirin. IV Lasix. Daily weight, I&O Continue aspirin, Plavix, Coreg, statin, Imdur Hypertension essential Continue home antihypertensives. Insulin-dependent diabetes blood glucose 187 Accu-Cheks, sliding scale insulin, resume home insulin Normocytic anemia Trend H&H Hypoalbuminemia hypoalbumin 3.3 hyperlipidemia Continue home dose Lipitor. Anxiety disorder/panic attacks Continue home medications. N.p.o. Full code DVT prophylaxis: Lovenox Discharge disposition: care home.
[2023-02-24] MEDS: MELATONIN 5 MG TABLET PO SCH (20:28)
[2023-02-24] MEDS: ATORVASTATIN 80 MG TAB PO SCH (20:30)
[2023-02-24] MEDS: INSULIN GLARGINE 100 UNIT/ML SQ SCH (20:32)
[2023-02-25] MEDS: MORPHINE 4 MG/ML SYR IV PRN ×4 (04:36→23:45)
[2023-02-25] MEDS: PANTOPRAZOLE 40MG TABLET PO SCH (05:41)
[2023-02-25] MEDS: INSULIN REGULAR (HUMAN) 100 UNIT/ML SQ SCH ×4 (07:30→20:38)
[2023-02-25] MEDS: FLUOXETINE 10 MG CAP PO SCH (09:00)
[2023-02-25] MEDS: LIDOCAINE 4% PATCH TD SCH (09:00)
[2023-02-25] MEDS: FUROSEMIDE 40 MG/4 ML VIAL IV SCH ×2 (09:00→16:38)
[2023-02-25] MEDS: ISOSORBIDE MONO SR 30 MG TAB PO SCH (09:00)
[2023-02-25] MEDS: ISOSORBIDE MONO 10 MG TAB PO SCH (09:00)
[2023-02-25] MEDS: ONDANSETRON 4 MG/2 ML VIAL IV PRN ×2 (09:07→16:22)
--- NOTE | 2023-02-25 09:15 | P.PN ---
Subjective Date of Service: 02/25/23 Chief Complaint: Chest pain HPI 02/23: Romy Cortes is a 52-year-old -Maldivian female with a past medical history hypertension, CAD, PCI x2, CABG, insulin-dependent diabetes mellitus, presents to the emergency room with chest pain from [facility]. She reports chest pain is substernal, radiates to her left arm. Chest pain started yesterday, worse today. She reports associated shortness of breath. She reports medication compliance. 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 She denies fever, edema, cough, nausea vomiting diarrhea, Dizziness. She was treated with morphine 4 mg, nitroglycerin in the emergency room with some relief. Plan to admit for acute on chronic heart failure, chest pain rule out [place]. ER course EKG normal sinus rhythm rate 93, normal sinus rhythm with nonspecific ST changes,Laboratory evaluation normocytic anemia 8.7 26.9, early left shift 76.6, BUN potassium normal, elevated BNP 1361, troponin normal at 11.1, hypoalbumin 3.3, blood glucose 187, chest x-ray improving variation of the left lower lobe, partial improvement of central interstitial prominence suggesting evolving pulmonary edema or central congestion. No new focal consolidation. No pneumothorax no pulmonary effusion, mild cardiomegaly. Flu A/B negative 02/25: Romy is awake this morning, on examination she has a flat effect, and c/o a right spiritism headache and squeezing chest pain. Heart cath on Monday. <Marisol Baldwin - Last Filed: 02/25/23 14:13> Date of Service: 02/25/23 <bravo patiño - Last Filed: 02/25/23 14:34> Review of Systems Cardiovascular: Chest Pain <Marisol Baldwin - Last Filed: 02/25/23 14:13> Physical Examination - Vital Signs Temperature: 97.5 F Blood Pressure: 169/88 Pulse: 69 Respirations: 18 Pulse Ox (%): 96 <Marisol Baldwin - Last Filed: 02/25/23 14:13> Assessment And Plan - Plan Physical Exam General: Alert, In no apparent distress, Oriented x3, Obese Neck: Supple, JVD not distended Respiratory: Normal air movement, Diminished Cardiovascular: No edema, Normal pulses, Regular rate/rhythm Gastrointestinal: Normal bowel sounds, Soft and benign, Other (obese) Musculoskeletal: No clubbing. Integumentary: No rashes, No breakdown Neurological: Normal speech, Normal strength at 5/5 x4 extr, Sensation intact Assessment and plan Chest pain rule out [place] Angina History of CAD Acute on chronic diastolic heart failure Positive stress test 1 month ago. Troponin trended negative. cardiology consulted-awaiting input as needed analgesics, nitro, aspirin. IV Lasix. Daily weight, I&O Continue aspirin, Plavix, Coreg, statin, Imdur Hypertension essential Continue home antihypertensives. Insulin-dependent diabetes blood glucose 187 Accu-Cheks, sliding scale insulin, resume home insulin Normocytic anemia Trend H&H Hypoalbuminemia hypoalbumin 3.3 hyperlipidemia Continue home dose Lipitor. Anxiety disorder/panic attacks Continue home medications. Full code DVT prophylaxis: Lovenox Discharge Plan: Long Term Physician Review: Patient Assessed, Agree with Above Assessment and Plan Time Spent Managing PTS Care (In Minutes): 35 <Marisol Baldwin - Last Filed: 02/25/23 14:13> - Plan Patient seen and evaluated by cardiology Dr. Floyd. Dr. Floyd recommended cardiac catheterization given recent positive stress test and ongoing intermittent chest pain. Continue aspirin, Plavix, Imdur, beta-carola as tolerated, statins. <bravo patiño - Last Filed: 02/25/23 14:34>
[2023-02-25] MEDS: NITROGLYCERIN 0.4 MG/TAB SL PRN ×2 (09:41→12:24)
[2023-02-25] MEDS: BUSPIRONE HCL 5 MG TABLET PO SCH ×2 (09:44→20:37)
[2023-02-25] MEDS: EZETIMIBE 10 MG TAB PO SCH (09:44)
[2023-02-25] MEDS: SERTRALINE HCL 50 MG TAB PO SCH (09:45)
[2023-02-25] MEDS: lisinopriL 20 MG TAB PO SCH (09:45)
[2023-02-25] MEDS: GABAPENTIN 300 MG CAP PO SCH (09:45)
[2023-02-25] MEDS: HYDRALAZINE HCL 25 MG TABLET PO SCH ×2 (09:46→20:36)
[2023-02-25] MEDS: carvediloL 25 MG TAB PO SCH ×2 (09:46→20:36)
[2023-02-25] MEDS: CLOPIDOGREL 75 MG TABLET PO SCH (09:46)
[2023-02-25] MEDS: ASPIRIN EC 81 MG TAB PO SCH (09:46)
[2023-02-25] MEDS: MELATONIN 5 MG TABLET PO SCH (20:37)
[2023-02-25] MEDS: ATORVASTATIN 80 MG TAB PO SCH (20:37)
[2023-02-25] MEDS: INSULIN GLARGINE 100 UNIT/ML SQ SCH (20:38)
[2023-02-26] MEDS: PANTOPRAZOLE 40MG TABLET PO SCH (05:42)
[2023-02-26] MEDS: MORPHINE 4 MG/ML SYR IV PRN ×3 (05:42→17:08)
[2023-02-26] MEDS: INSULIN REGULAR (HUMAN) 100 UNIT/ML SQ SCH ×4 (07:30→20:16)
[2023-02-26 08:10] LABS: Absolute Lymphocytes (CBC) 2.1 K/uL (0.7-4.9); Hematocrit 27.6 % (36.0-45.0); Lymphocytes % 32.6 % (15.3-44.8); MCV 84.7 fL (80-100); MPV 9.4 fL (7.6-11.3); Platelets 216 thou/uL (152-406); RBC Red Blood Cell Count 3.26 M/uL (3.86-4.86)
[2023-02-26 08:24] LABS: Magnesium 1.7 mg/dL (1.6-2.4); Phosphorus 4.1 mg/dL (2.5-4.9); Potassium 4.5 mEq/L (3.5-5.1)
[2023-02-26] MEDS: LIDOCAINE 4% PATCH TD SCH (08:37)
[2023-02-26] MEDS: EZETIMIBE 10 MG TAB PO SCH (08:37)
[2023-02-26] MEDS: BUSPIRONE HCL 5 MG TABLET PO SCH ×2 (08:37→20:13)
[2023-02-26] MEDS: carvediloL 25 MG TAB PO SCH ×2 (08:38→20:13)
[2023-02-26] MEDS: lisinopriL 20 MG TAB PO SCH (08:39)
[2023-02-26] MEDS: ISOSORBIDE MONO SR 30 MG TAB PO SCH (08:39)
[2023-02-26] MEDS: ASPIRIN EC 81 MG TAB PO SCH (08:40)
[2023-02-26] MEDS: GABAPENTIN 300 MG CAP PO SCH (08:40)
[2023-02-26] MEDS: HYDRALAZINE HCL 25 MG TABLET PO SCH ×2 (08:40→20:15)
[2023-02-26] MEDS: FUROSEMIDE 40 MG/4 ML VIAL IV SCH ×2 (08:40→17:15)
[2023-02-26] MEDS: SERTRALINE HCL 50 MG TAB PO SCH (08:40)
--- NOTE | 2023-02-26 09:43 | P.PN ---
Subjective Date of Service: 02/26/23 Chief Complaint: Chest pain Subjective: Doing well HPI 02/23: Romy Cortes is a 52-year-old -[place]banian female with a past medical history hypertension, CAD, PCI x2, CABG, insulin-dependent diabetes mellitus, presents to the emergency room with chest pain from [facility]. She reports chest pain is substernal, radiates to her left arm. Chest pain started yesterday, worse today. She reports associated shortness of breath. She reports medication compliance. 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 She denies fever, edema, cough, nausea vomiting diarrhea, Dizziness. She was treated with morphine 4 mg, nitroglycerin in the emergency room with some relief. Plan to admit for acute on chronic heart failure, chest pain rule out [place]. ER course EKG normal sinus rhythm rate 93, normal sinus rhythm with nonspecific ST changes,Laboratory evaluation normocytic anemia 8.7 26.9, early left shift 76.6, BUN potassium normal, elevated BNP 1361, troponin normal at 11.1, hypoalbumin 3.3, blood glucose 187, chest x-ray improving variation of the left lower lobe, partial improvement of central interstitial prominence suggesting evolving pulmonary edema or central congestion. No new focal consolidation. No pneumothorax no pulmonary effusion, mild cardiomegaly. Flu A/B negative 02/25: Romy is awake this morning, on examination she has a flat effect, and c/o a right anglican headache and squeezing chest pain. Heart cath on Monday. 02/26: Romy is awake in bed, Scheduled heart cath on Monday, educated on that procedure and NPO at midnight. She is tearful but understanding and conversing well. <Marisol Baldwin - Last Filed: 02/26/23 09:39> Date of Service: 02/26/23 <bravo patiño - Last Filed: 02/26/23 12:04> Review of Systems Cardiovascular: Chest Pain <Marisol Baldwin - Last Filed: 02/26/23 09:39> Physical Examination - Vital Signs Temperature: 97.5 F Blood Pressure: 164/65 Pulse: 68 Respirations: 16 Pulse Ox (%): 97 <Marisol Baldwin - Last Filed: 02/26/23 09:39> Assessment And Plan - Plan Physical Exam General: Alert, In no apparent distress, Oriented x3, Obese Neck: Supple, JVD not distended Respiratory: Normal air movement, Diminished Cardiovascular: No edema, Normal pulses, Regular rate/rhythm Gastrointestinal: Normal bowel sounds, Soft and benign, Other (obese) Musculoskeletal: No clubbing. Integumentary: No rashes, No breakdown Neurological: Normal speech, Normal strength at 5/5 x4 extr, Sensation intact Assessment and plan Chest pain rule out [place] Angina History of CAD Acute on chronic diastolic heart failure Positive stress test 1 month ago. Troponin trended negative. cardiology consulted-awaiting input as needed analgesics, nitro, aspirin. IV Lasix. Daily weight, I&O Continue aspirin, Plavix, Coreg, statin, Imdur heart Cath Monday with Dr. Floyd Hypertension essential Continue home antihypertensives. Insulin-dependent diabetes blood glucose 187 Accu-Cheks, sliding scale insulin, resume home insulin Normocytic anemia Trend H&H Hypoalbuminemia hypoalbumin 3.3 hyperlipidemia Continue home dose Lipitor. Anxiety disorder/panic attacks Continue home medications. Full code DVT prophylaxis: Lovenox Discharge Plan: Intermediate Plan to discharge in: 48 Hours Physician Review: Patient Assessed, Agree with Above Assessment and Plan Time Spent Managing PTS Care (In Minutes): 35 <Marisol Baldwin - Last Filed: 02/26/23 09:39> - Plan Patient seen and examined. Plan of care discussed with Ms. Baldwin. Patient with intermittent chest pain-likely angina. Anxiety disorder. Continue Imdur and NTG. Continue DAPT, statins, beta-carola. On antianxiety medications. Cardiology is planning cardiac catheterization tomorrow. <bravo patiño - Last Filed: 02/26/23 12:04>
[2023-02-26] MEDS: FLUOXETINE 10 MG CAP PO SCH (10:04)
[2023-02-26] MEDS: CLOPIDOGREL 75 MG TABLET PO SCH (10:04)
[2023-02-26] MEDS: ISOSORBIDE MONO 10 MG TAB PO SCH (10:04)
[2023-02-26] MEDS: ATORVASTATIN 80 MG TAB PO SCH (20:14)
[2023-02-26] MEDS: INSULIN GLARGINE 100 UNIT/ML SQ SCH (20:15)
[2023-02-26] MEDS: ACETAMINOPHEN 500 MG TAB PO PRN (20:15)
[2023-02-26] MEDS: MELATONIN 5 MG TABLET PO SCH (20:17)
[2023-02-27 02:12] LABS: Absolute Lymphocytes (CBC) 1.8 K/uL (0.7-4.9); Hematocrit 26.2 % (36.0-45.0); Lymphocytes % 30.5 % (15.3-44.8); MCV 84.4 fL (80-100); Platelets 213 thou/uL (152-406); RBC Red Blood Cell Count 3.11 M/uL (3.86-4.86)
[2023-02-27 02:22] LABS: Phosphorus 3.9 mg/dL (2.5-4.9)
[2023-02-27] MEDS: PANTOPRAZOLE 40MG TABLET PO SCH (05:34)
[2023-02-27] MEDS: MORPHINE 4 MG/ML SYR IV PRN ×3 (05:34→21:27)
[2023-02-27] MEDS: ONDANSETRON 4 MG/2 ML VIAL IV PRN ×2 (05:35→14:02)
[2023-02-27] MEDS: INSULIN REGULAR (HUMAN) 100 UNIT/ML SQ SCH ×4 (07:30→21:28)
[2023-02-27] MEDS: ISOSORBIDE MONO 10 MG TAB PO SCH (09:00)
[2023-02-27] MEDS: BUSPIRONE HCL 5 MG TABLET PO SCH ×2 (09:00→20:21)
[2023-02-27] MEDS: ISOSORBIDE MONO SR 30 MG TAB PO SCH (09:00)
[2023-02-27] MEDS: CLOPIDOGREL 75 MG TABLET PO SCH (11:01)
[2023-02-27] MEDS: lisinopriL 20 MG TAB PO SCH (11:01)
[2023-02-27] MEDS: HYDRALAZINE HCL 25 MG TABLET PO SCH ×2 (11:02→20:21)
[2023-02-27] MEDS: carvediloL 25 MG TAB PO SCH ×2 (11:02→20:21)
[2023-02-27] MEDS: ASPIRIN EC 81 MG TAB PO SCH (11:02)
[2023-02-27] MEDS: LIDOCAINE 4% PATCH TD SCH (11:03)
[2023-02-27] MEDS ORDERED: NA CHLORIDE 0.9% 0 ML ONE (16:34)
[2023-02-27] MEDS: GABAPENTIN 300 MG CAP PO SCH (17:37)
[2023-02-27] MEDS: FLUOXETINE 10 MG CAP PO SCH (17:37)
[2023-02-27] MEDS: EZETIMIBE 10 MG TAB PO SCH (17:37)
[2023-02-27] MEDS: SERTRALINE HCL 50 MG TAB PO SCH (17:37)
--- NOTE | 2023-02-27 18:35 | P.PN ---
Subjective Date of Service: 02/27/23 Chief Complaint: Chest pain Patient has no complaints today. She is n.p.o. for cardiac cath today. Physical Examination - Vital Signs Temperature: 98.0 F Blood Pressure: 134/69 Pulse: 63 Respirations: 12 Pulse Ox (%): 100 Assessment And Plan - Plan Physical Exam General: Alert, In no apparent distress, Oriented x3, Obese Neck: Supple, JVD not distended Respiratory: Normal air movement, Diminished Cardiovascular: No edema, Normal pulses, Regular rate/rhythm Gastrointestinal: Normal bowel sounds, Soft and benign, Other (obese) Integumentary: No rashes, No breakdown Neurological: Normal speech, no focal motor deficit. Assessment and plan Chest pain rule out [place] Angina History of CAD Acute on chronic diastolic heart failure Positive stress test 1 month ago. Troponin trended negative. cardiology consulted-Dr. Floyd recommended cardiac catheter today. as needed analgesics, nitro, aspirin. IV Lasix. Daily weight, I&O On aspirin, Plavix, Coreg, statin, Imdur Hypertension essential Continue home antihypertensives. Insulin-dependent diabetes blood glucose 187 Accu-Cheks, sliding scale insulin, resume home insulin Normocytic anemia Trend H&H Hypoalbuminemia hypoalbumin 3.3 hyperlipidemia Continue home dose Lipitor. Anxiety disorder/panic attacks Continue home medications. N.p.o. Full code DVT prophylaxis: Lovenox Discharge disposition: Patient was brought in from detention. Mother would like to keep her home on discharge.
[2023-02-27] MEDS: MELATONIN 5 MG TABLET PO SCH (20:21)
[2023-02-27] MEDS: ATORVASTATIN 80 MG TAB PO SCH (20:21)
[2023-02-27] MEDS: INSULIN GLARGINE 100 UNIT/ML SQ SCH (21:28)
[2023-02-28] MEDS: PANTOPRAZOLE 40MG TABLET PO SCH (06:00)
[2023-02-28] MEDS: INSULIN REGULAR (HUMAN) 100 UNIT/ML SQ SCH ×4 (07:30→21:00)
[2023-02-28] MEDS: ISOSORBIDE MONO SR 30 MG TAB PO SCH (09:00)
[2023-02-28] MEDS: EZETIMIBE 10 MG TAB PO SCH (09:00)
[2023-02-28] MEDS: ISOSORBIDE MONO 10 MG TAB PO SCH (09:00)
[2023-02-28] MEDS: FLUOXETINE 10 MG CAP PO SCH (09:00)
[2023-02-28] MEDS: CLOPIDOGREL 75 MG TABLET PO SCH ×2 (09:00→10:32)
[2023-02-28] MEDS: ASPIRIN EC 81 MG TAB PO SCH ×2 (09:00→10:32)
[2023-02-28] MEDS: GABAPENTIN 300 MG CAP PO SCH (09:00)
[2023-02-28] MEDS: BUSPIRONE HCL 5 MG TABLET PO SCH ×2 (09:00→21:00)
[2023-02-28] MEDS: HYDRALAZINE HCL 25 MG TABLET PO SCH ×2 (09:00→21:00)
[2023-02-28] MEDS: SERTRALINE HCL 50 MG TAB PO SCH (09:00)
[2023-02-28] MEDS: LIDOCAINE 4% PATCH TD SCH (09:00)
[2023-02-28] MEDS: lisinopriL 20 MG TAB PO SCH (09:17)
[2023-02-28] MEDS: carvediloL 25 MG TAB PO SCH ×2 (09:18→21:01)
[2023-02-28] MEDS: MORPHINE 4 MG/ML SYR IV PRN ×3 (09:21→22:31)
--- NOTE | 2023-02-28 09:34 | P.PN ---
Date of Service: 02/28/23 Subjective: Reports some mild chest pain overnight Heart catheterization yesterday was postponed, scheduled for today ROS: 10 point ROS as noted above, otherwise negative Physical exam GEN: Alert, oriented, NAD, obese HEENT: Normal conjunctiva, sclera anicteric CV: Regular rate and rhythm, no edema Pulm: Nonlabored respirations on room air ABD: Soft, nontender, nondistended MSK: No joint tenderness Integumentary: No rashes Neuro: Normal speech, normal affect Vitals reviewed Problem List Chest pain rule out [place] Angina History of CAD Acute on chronic diastolic heart failure Positive stress test 1 month ago. Troponin trended negative. Had CABG a year ago at [facility] cardiology consulted-Dr. Floyd recommended cardiac catheter today. as needed analgesics, nitro, aspirin. Daily weight, I&O On aspirin, Plavix, Coreg, statin, Imdur Hypertension essential Continue home antihypertensives. Insulin-dependent diabetes blood glucose 187 Accu-Cheks, sliding scale insulin, resume home insulin Normocytic anemia Trend H&H Hypoalbuminemia hypoalbumin 3.3 hyperlipidemia Continue home dose Lipitor. Anxiety disorder/panic attacks Continue home medications. N.p.o. Full code DVT prophylaxis: Lovenox Discharge disposition: Patient was brought in from retirement. Mother would like to keep her home on discharge. visitor services information assistant consulted to assist with this Time Spent Managing Pts Care (In Minutes): 35
[2023-02-28] MEDS ORDERED: NA CHLORIDE 0.9% 1,000 ML IV SCH ×2 (10:00)
[2023-02-28] MEDS ORDERED: LIDOCAINE 1% 20 ML MDV ONE (12:35)
[2023-02-28] MEDS ORDERED: MIDAZOLAM HCL 2 MG/2 ML INJ ONE (12:35)
[2023-02-28] MEDS ORDERED: FENTANYL CITR 100 MCG/2 ML ONE (12:35)
[2023-02-28] MEDS ORDERED: HEPA 1000U/500MLS 2,000 UNIT/1,000 ML BAG IV ONE (12:35)
[2023-02-28] MEDS ORDERED: HEPARIN 10,000 UNIT/10 ML VIAL IV ONE (12:36)
[2023-02-28] MEDS ORDERED: ATROPINE SULF 1 MG/10 ML SYR IV ONE (12:36)
[2023-02-28] MEDS ORDERED: TICAGRELOR 90 MG TABLET PO ONE (12:36)
[2023-02-28] MEDS ORDERED: ASPIRIN 325 MG TAB ONE (12:36)
[2023-02-28] MEDS ORDERED: CLOPIDOGREL 75 MG TABLET ONE (12:36)
[2023-02-28] MEDS ORDERED: FLUMAZENIL 0.1 MG/ML (5 mL VIAL) IV ONE (13:10)
--- NOTE | 2023-02-28 15:15 | PN ---
Date of Progress Note: 02/28/2023 Subjective: Seen by bedside. She continues to have chest pain with abnormal stress test with latera l ischemia. Review of Systems: Positive for chest pain. No shortness of breath, orthopnea, or cough. No nausea, vomiting, or diarr hea. All other systems were reviewed, they were negative. Objective: Vital Signs: Reviewed. Head and Neck: Pupils are equal, reactive to light. Intact eye movements. No JVD. No cervical lym phadenopathy. Neck is supple. Thyroid is not enlarged. Lungs: Clear to auscultation bilaterally. No rhonchi, wheezing, or crackles. No accessory muscle u se. Heart: Regular rate and rhythm. No extra sounds. Abdomen: Soft, nontender. Bowel sounds positive. No organomegaly. No masses or hernia. No rigidi ty or rebound. Extremities: No clubbing, cyanosis. Intact pulses. Skin: No rash or nodule. Neurological: Alert, awake, oriented x3. No acute focal deficits appreciated. Investigations: Labs were reviewed. Assessment And Recommendations: 1.Unstable angina and she is NPO. Plan for coronary angiogram today as she has an abnormal stress t est. 2.Hypertension. Blood pressure is controlled. 3.Dyslipidemia. Continue Lipitor 40 mg q.h.s. SR/MODL Voice ID: [id number] Report ID: [id number]
--- NOTE | 2023-02-28 15:21 | OP ---
Date of Procedure: 02/28/2023 Surgeon: ELIJAH DUONG Procedures Performed: 1.Selective coronary angiogram with bypass graft study. 2.Left heart catheterization. Indication: Unstable angina. Access: Right femoral artery 6-Vietnamese closed with 6-Vietnamese Angio-Seal. Complications: None. Bleeding: Less than 20 mL. Description Of Procedure: After risks, benefits, and alternatives were explained, patient agreed to procedure and signed informal consent. The patient was brought into the cardiac catheterization [facility], prepped and draped in the usual sterile fashion and then I accessed the right femoral artery using micropuncture kit, ultrasound guidance, and fluoroscopy, and placed 6-Vietnamese [place] sheath an d took a 6-Vietnamese JL3.5 guide catheter into the aortic root, engaged the left main, took standard vie ws and exchanged for 6-Vietnamese JR4 catheter, engaged the RCA and the ROBIN to LAD and took standard vie ws and then I removed the catheter and the sheath. 6-Vietnamese Angio-Seal was used for closure with goo d hemostasis. Findings: 1.Left main; large and normal. 2.LAD; in the proximal segment, diffusely diseased 80% and then becomes WHEEL ALIGNER and then widely patent L FLAVIO to LAD. 3.Left circumflex; large vessel with proximal 40% and then after the OM takeoff, the vessel becomes very small and has ostial 60%. 4.RCA; large and dominant with proximal 30% and then widely patent stent. 5.Elevated LVEDP at 16 mmHg. Bypass Graft Study: Widely patent ROBIN to LAD. Conclusion: 1.Severe LAD disease with widely patent ROBIN to LAD. 2.Mild coronary artery disease elsewhere. Plan: Medical management. /MODL Voice ID: [id number] Report ID: [id number]
[2023-02-28] MEDS: MELATONIN 5 MG TABLET PO SCH (21:00)
[2023-02-28] MEDS: INSULIN GLARGINE 100 UNIT/ML SQ SCH (21:00)
[2023-02-28] MEDS: ACETAMINOPHEN 500 MG TAB PO PRN (21:01)
[2023-02-28] MEDS: ATORVASTATIN 80 MG TAB PO SCH (21:02)
[2023-02-28] MEDS: TRAZODONE 50 MG TABLET PO PRN (22:36)
[2023-03-01 02:44] LABS: Absolute Lymphocytes (CBC) 1.4 K/uL (0.7-4.9); Hematocrit 26.8 % (36.0-45.0); Lymphocytes % 26.6 % (15.3-44.8); MCV 84.3 fL (80-100); MPV 9.3 fL (7.6-11.3); Platelets 186 thou/uL (152-406); RBC Red Blood Cell Count 3.18 M/uL (3.86-4.86)
[2023-03-01 02:58] LABS: Potassium 3.6 mEq/L (3.5-5.1)
[2023-03-01] MEDS: MORPHINE 4 MG/ML SYR IV PRN ×3 (05:46→17:37)
[2023-03-01] MEDS: PANTOPRAZOLE 40MG TABLET PO SCH (05:46)
[2023-03-01] MEDS: BUSPIRONE HCL 5 MG TABLET PO SCH ×2 (08:24→20:59)
[2023-03-01] MEDS: EZETIMIBE 10 MG TAB PO SCH (08:25)
[2023-03-01] MEDS: SERTRALINE HCL 50 MG TAB PO SCH (08:25)
[2023-03-01] MEDS: GABAPENTIN 300 MG CAP PO SCH (08:25)
[2023-03-01] MEDS: ASPIRIN EC 81 MG TAB PO SCH (08:25)
[2023-03-01] MEDS: HYDRALAZINE HCL 25 MG TABLET PO SCH ×2 (08:26→21:01)
[2023-03-01] MEDS: lisinopriL 20 MG TAB PO SCH (08:26)
[2023-03-01] MEDS: ISOSORBIDE MONO SR 30 MG TAB PO SCH (08:27)
[2023-03-01] MEDS: CLOPIDOGREL 75 MG TABLET PO SCH (08:27)
[2023-03-01] MEDS: carvediloL 25 MG TAB PO SCH ×2 (08:27→21:19)
[2023-03-01] MEDS: LIDOCAINE 4% PATCH TD SCH (08:28)
[2023-03-01] MEDS: INSULIN REGULAR (HUMAN) 100 UNIT/ML SQ SCH ×4 (08:43→21:00)
[2023-03-01] MEDS: LACTULOSE 20 GM/30 ML UCUP PO PRN ×2 (08:43→21:02)
[2023-03-01] MEDS ORDERED: POTASSIUM CL SA 10 MEQ TAB PO ONE (09:00)
[2023-03-01] MEDS: FLUOXETINE 10 MG CAP PO SCH (09:00)
--- NOTE | 2023-03-01 12:43 | P.PN ---
Date of Service: 03/01/23 Subjective: Reports some mild chest pain overnight Heart catheterization yesterday was postponed, scheduled for today ROS: 10 point ROS as noted above, otherwise negative Physical exam GEN: Alert, oriented, NAD, obese HEENT: Normal conjunctiva, sclera anicteric CV: Regular rate and rhythm, no edema Pulm: Nonlabored respirations on room air ABD: Soft, nontender, nondistended MSK: No joint tenderness Integumentary: No rashes Neuro: Normal speech, normal affect Vitals reviewed Problem List Chest pain rule out [place] Angina History of CAD Acute on chronic diastolic heart failure Heart cath 02/28 Conclusion: 1. Severe LAD disease with widely patent ROBIN to LAD 2. Mild coronary artery disease elsewhere Plan: Medical management. No further inpatient workup from cardiology as needed analgesics, nitro, aspirin. Daily weight, I&O On aspirin, Plavix, Coreg, statin, Imdur DDimer pending, order CTA chest if positive Wean off 02, possible discharge home per family preference tomorrow Hypertension essential Continue home antihypertensives. Insulin-dependent diabetes blood glucose 187 Accu-Cheks, sliding scale insulin, resume home insulin Normocytic anemia Trend H&H Hypoalbuminemia hypoalbumin 3.3 hyperlipidemia Continue home dose Lipitor. Anxiety disorder/panic attacks Continue home medications. ADA diet Full code DVT prophylaxis: Lovenox Discharge disposition: Patient was brought in from [facility]. Mother would like to keep her home on discharge. services clerk consulted to assist with this Time Spent Managing Pts Care (In Minutes): 35
--- NOTE | 2023-03-01 15:09 | RAD REPORT ---
EXAM DESCRIPTION: CT - Chest For Pe Angio - 03/01/2023 2:56 pm CLINICAL HISTORY: Chest pain. Hypoxia, chest pain, elevated dd COMPARISON: Chest For Pe Angio dated 02/18/2023 TECHNIQUE: CT angiogram of the pulmonary arteries was performed with MIP. All CT scans are performed using dose optimization technique as appropriate and may include automated exposure control or mA/KV adjustment according to patient size. FINDINGS: No evidence of pulmonary thromboembolism. No acute aortic finding demonstrated. Mild interstitial pulmonary edema is present with atelectasis in both lung bases. The heart is enlarg ed with changes of a prior CABG. No significant pericardial or pleural fluid. No concerning bony finding. Small hiatal hernia. IMPRESSION: No evidence of pulmonary thromboembolism. Mild CHF.
[2023-03-01] MEDS: INSULIN GLARGINE 100 UNIT/ML SQ SCH (20:59)
[2023-03-01] MEDS: ATORVASTATIN 80 MG TAB PO SCH (20:59)
[2023-03-01] MEDS: MELATONIN 5 MG TABLET PO SCH (21:00)
[2023-03-01] MEDS: ONDANSETRON 4 MG/2 ML VIAL IV PRN (23:56)
[2023-03-01] MEDS: ACETAMINOPHEN 500 MG TAB PO PRN (23:56)
[2023-03-02] MEDS: PANTOPRAZOLE 40MG TABLET PO SCH (05:53)
[2023-03-02] MEDS: INSULIN REGULAR (HUMAN) 100 UNIT/ML SQ SCH ×4 (07:30→21:00)
[2023-03-02 07:47] LABS: Hematocrit 29.5 % (36.0-45.0); MCV 85.3 fL (80-100); RBC Red Blood Cell Count 3.46 M/uL (3.86-4.86)
[2023-03-02 07:48] LABS: Absolute Lymphocytes (CBC) 1.4 K/uL (0.7-4.9); MPV 9.2 fL (7.6-11.3); Platelets 224 thou/uL (152-406)
[2023-03-02 08:03] LABS: Potassium 4.2 mEq/L (3.5-5.1)
--- NOTE | 2023-03-02 08:55 | P.DS ---
Admission Date: 02/25/23 Discharge Date: 03/02/23 Disposition: ROUTINE DISCHARGE Discharge Condition: GOOD Reason for Admission: Chest pain Consultations: Cardiology Procedures: Heart cath 02/28 Conclusion: 1. Severe LAD disease with widely patent ROBIN to LAD 2. Mild coronary artery disease elsewhere Plan: Medical management. No further inpatient workup from cardiology Brief History of Present Illness: 52-year-old -[place]wegian female with a past medical history hypertension, CAD, PCI x2, CABG, insulin-dependent diabetes mellitus, presents to the emergency room with chest pain from [facility]. She reports chest pain is substernal, radiates to her left arm. Chest pain started yesterday, worse today. She reports associated shortness of breath. She reports medication compliance. She does not currently have a outreach liaison. She denies fever, edema, cough, nausea vomiting diarrhea, Dizziness. She was treated with morphine 4 mg, nitroglycerin in the emergency room with some relief. Plan to admit for acute on chronic heart failure, chest pain rule out [place]. ER course EKG normal sinus rhythm rate 93, normal sinus rhythm with nonspecific ST changes,Laboratory e valuation normocytic anemia 8.7 26.9, early left shift 76.6, BUN potassium normal, elevated BNP 1361, troponin normal at 11.1, hypoalbumin 3.3, blood glucose 187, chest x-ray improving variation of the left lower lobe, partial improvement of central interstitial prominence suggesting evolving pulmonary edema or central congestion. No new focal consolidation. No pneumothorax no pulmonary effusion, mild cardiomegaly. Flu A/B negative Hospital Course: Problem List Chest pain rule out [place] Angina History of CAD Acute on chronic diastolic heart failure Patient was admitted to the hospital for chest pain/unstable angina from [facility]. Her troponins were negative but she had persistent pain and reportedly had a positive stress test about a month prior. She was evaluated by cardiology who determined she would benefit with a heart catheterization. Heart catheterization was performed 02/28/2023 and revealed severe LAD disease with widely patent ROBIN to LAD, mild coronary artery disease elsewhere with recommendations for further medical management. Hospitalization was complicated with a mild MENDEZ which resolved with gentle IV fluids for 1 day, additionally since she was having persistent pain CT of the chest was performed to rule out pulmonary embolism which was negative for pulmonary embolism or other acute findings that would be contributing to her chest pain. This morning her renal function is at baseline, she states that she did well overnight and she is stable for discharge. She is instructed to follow-up with her primary care doctor and the outreach liaison in 1 to 2 weeks and continue her home medications as prescribed. Of note her family did not wish for her to return to [facility], they instead would like to take her home he was cared for previously. There are arrangements currently and works to provide family with DME including hospital bed. Patient will be discharged back to her family. Vital Signs/Physical Exam: Temp Pulse Resp BP Pulse Ox 97.5 F 69 16 170/74 H 97 03/02/23 08:00 03/02/23 08:00 03/02/23 08:00 03/02/23 08:00 03/02/23 08:00 General: Alert, In no apparent distress, Oriented x3 HEENT: PERRLA Neck: Supple Respiratory: Normal air movement Cardiovascular: No edema, Normal S1 S2 Capillary refill: <2 Seconds Gastrointestinal: Normal bowel sounds, No tenderness Musculoskeletal: No tenderness Integumentary: No rashes Neurological: Normal affect Laboratory Data at Discharge: WBC 6.40 thou/uL (4.3-10.9) 03/02/23 07:17 Hgb 9.4 g/dL (12.0-15.0) L 03/02/23 07:17 Hct 29.5 % (36.0-45.0) L 03/02/23 07:17 Plt Count 224 thou/uL (152-406) 03/02/23 07:17 Sodium 141 mEq/L (136-145) 03/02/23 07:17 Potassium 4.2 mEq/L (3.5-5.1) 03/02/23 07:17 BUN 11 mg/dL (7-18) 03/02/23 07:17 Creatinine 0.84 mg/dL (0.55-1.02) 03/02/23 07:17 Glucose 136 mg/dL (74-106) H 03/02/23 07:17 Phosphorus 3.9 mg/dL (2.5-4.9) 02/27/23 01:48 Magnesium 2.0 mg/dL (1.6-2.4) 02/27/23 01:48 Total Bilirubin 0.4 mg/dL (0.2-1.0) 02/23/23 14:35 AST 16 U/L (15-37) 02/23/23 14:35 ALT 20 U/L (13-56) 02/23/23 14:35 Alkaline Phosphatase 64 U/L (45-117) 02/23/23 14:35 Triglycerides 135 mg/dL (<150) 02/24/23 02:21 Cholesterol 112 mg/dL (<200) 02/24/23 02:21 HDL Cholesterol 41 mg/dL (40-60) 02/24/23 02:21 Cholesterol/HDL Ratio 2.73 02/24/23 02:21 Home Medications: Aspirin [Ecotrin 81 MG] 81 mg PO DAILY #30 tablet. 03/19/16 Atorvastatin Calcium [Lipitor*] 80 mg PO BEDTIME 09/01/21 Clopidogrel Bisulfate [Plavix] 75 mg PO DAILY 09/01/21 Ezetimibe [Zetia] 10 mg PO DAILY 09/01/21 Furosemide 20 mg PO DAILY 09/01/21 Gabapentin 400 mg PO DAILY 09/01/21 Nitroglycerin [Nitrostat*] 0.4 mg SL [id number] PRN 01/27/23 carvediloL [Coreg*] 25 mg PO BID #60 tab 01/27/23 lisinopriL [Prinivil*] 40 mg PO DAILY #30 tab 01/27/23 Fluoxetine HCl [Prozac*] 10 mg PO DAILY 02/23/23 Insulin Glargine,Hum.rec.anlog [Lantus Solostar] 35 unit SQ DAILY 02/23/23 Insulin Lispro [Humalog] See Protocol SQ ACHS 02/23/23 Isosorbide Mononitrate [Isosorbide Mononitrate ER] 30 mg PO DAILY 02/23/23 Lactulose 10 gm PO Q12HP PRN 02/23/23 Lidocaine 4% Patch [Lidoderm 5% Patch*] 1 patch TD DAILY 02/23/23 Melatonin [Melatoninmax] 10 mg PO BEDTIME 02/23/23 Omeprazole [Prilosec] 40 mg PO DAILY 02/23/23 Promethazine Tab [Phenergan*] 25 mg PO Q6HP PRN 02/23/23 Trazodone HCl 50 mg PO BEDTIME PRN PRN 02/23/23 hydrOXYzine HCL [Atarax] 50 mg PO Q6HP PRN 02/23/23 Physician Discharge Instructions: Patient was admitted to the hospital for chest pain/unstable angina from [facility]. Her troponins were negative but she had persistent pain and reportedly had a positive stress test about a month prior. She was evaluated by cardiology who determined she would benefit with a heart catheterization. Heart catheterization was performed 02/28/2023 and revealed severe LAD disease with widely patent ROBIN to LAD, mild coronary artery disease elsewhere with recommendations for further medical management. Hospitalization was complicated with a mild MENDEZ which resolved with gentle IV fluids for 1 day, additionally since she was having persistent pain CT of the chest was performed to rule out pulmonary embolism which was negative for pulmonary embolism or other acute findings that would be contributing to her chest pain. This morning her renal function is at baseline, she states that she did well overnight and she is stable for discharge. She is instructed to follow-up with her primary care doctor and the outreach liaison in 1 to 2 weeks and continue her home medications as prescribed. Of note her family did not wish for her to return to [facility], they instead would like to take her home he was cared for previously. There are arrangements currently and works to provide family with DME including hospital bed. Patient will be discharged back to her family. Diet: ADA Activity: Bedrest Followup: JESICA MOONEY [Primary Care Provider] - 1-2 Weeks Elia Floyd MD [ACTIVE - CAN ADMIT] - 1-2 Weeks Time spent managing pt's care (in minutes): 35
[2023-03-02] MEDS ORDERED: FLEET ENEMA ADULT PR ONE (09:00)
[2023-03-02] MEDS ORDERED: POLYVINYL ALCOHOL 1.4% 15 ML EACH EYE ONE (09:00)
[2023-03-02] MEDS: BUSPIRONE HCL 5 MG TABLET PO SCH ×2 (09:05→21:09)
[2023-03-02] MEDS: EZETIMIBE 10 MG TAB PO SCH (09:05)
[2023-03-02] MEDS: ASPIRIN EC 81 MG TAB PO SCH (09:05)
[2023-03-02] MEDS: GABAPENTIN 300 MG CAP PO SCH (09:07)
[2023-03-02] MEDS: lisinopriL 20 MG TAB PO SCH (09:07)
[2023-03-02] MEDS: HYDRALAZINE HCL 25 MG TABLET PO SCH ×2 (09:08→21:09)
[2023-03-02] MEDS: CLOPIDOGREL 75 MG TABLET PO SCH (09:08)
[2023-03-02] MEDS: SERTRALINE HCL 50 MG TAB PO SCH (09:08)
[2023-03-02] MEDS: ISOSORBIDE MONO SR 30 MG TAB PO SCH (09:08)
[2023-03-02] MEDS: LIDOCAINE 4% PATCH TD SCH (09:08)
[2023-03-02] MEDS: carvediloL 25 MG TAB PO SCH ×2 (09:08→21:09)
[2023-03-02] MEDS: POLYVINYL ALCOHOL 1.4% 15 ML EACH EYE SCH (09:14)
[2023-03-02] MEDS: FLUOXETINE 10 MG CAP PO SCH (09:23)
[2023-03-02] MEDS: ONDANSETRON 4 MG/2 ML VIAL IV PRN ×2 (10:32→17:19)
[2023-03-02] MEDS: ACETAMINOPHEN 500 MG TAB PO PRN ×2 (10:32→17:19)
--- NOTE | 2023-03-02 16:14 | RAD REPORT ---
EXAM DESCRIPTION: RAD - Abdomen 1 View (KUB) - 03/02/2023 2:42 pm CLINICAL HISTORY: abd pain, vomiting COMPARISON: Chest For Pe Angio dated 03/01/2023 TECHNIQUE: Single AP view of the abdomen. FINDINGS: Nonobstructive bowel gas pattern. No air-fluid levels, free air, or pneumatosis. No suspic ious calcifications. No significant bony abnormality. Nerve stimulator in place. Excreted contrast in the bladder. IMPRESSION: No acute findings.
[2023-03-02] MEDS ORDERED: PROMETHAZINE INJ 25 MG/ML AMP IV ONE (16:35)
[2023-03-02] MEDS: LACTULOSE 20 GM/30 ML UCUP PO PRN (17:18)
[2023-03-02] MEDS ORDERED: LACTULOSE 20 GM/30 ML UCUP PO ONE (20:00)
[2023-03-02] MEDS: MELATONIN 5 MG TABLET PO SCH (21:00)
[2023-03-02] MEDS: ATORVASTATIN 80 MG TAB PO SCH (21:09)
[2023-03-02] MEDS: INSULIN GLARGINE 100 UNIT/ML SQ SCH (22:39)
[2023-03-02] MEDS: TRAZODONE 50 MG TABLET PO PRN (23:46)
[2023-03-03] MEDS: ACETAMINOPHEN 500 MG TAB PO PRN ×2 (00:58→06:41)
[2023-03-03] MEDS: NITROGLYCERIN 0.4 MG/TAB SL PRN (03:53)
[2023-03-03] MEDS ORDERED: HYDRALAZINE HCL 20 MG/ML VIAL IV ONE (05:30)
[2023-03-03] MEDS: PANTOPRAZOLE 40MG TABLET PO SCH (05:54)
[2023-03-03] MEDS: INSULIN REGULAR (HUMAN) 100 UNIT/ML SQ SCH (07:30)
[2023-03-03 09:13] VITALS: O2SAT 97
[2023-03-03] MEDS: POLYVINYL ALCOHOL 1.4% 15 ML EACH EYE SCH (09:17)
[2023-03-03] MEDS: CLOPIDOGREL 75 MG TABLET PO SCH (09:18)
[2023-03-03] MEDS: FLUOXETINE 10 MG CAP PO SCH (09:18)
[2023-03-03] MEDS: lisinopriL 20 MG TAB PO SCH (09:18)
[2023-03-03] MEDS: SERTRALINE HCL 50 MG TAB PO SCH (09:18)
[2023-03-03] MEDS: ISOSORBIDE MONO SR 30 MG TAB PO SCH (09:18)
[2023-03-03] MEDS: BUSPIRONE HCL 5 MG TABLET PO SCH (09:18)
[2023-03-03] MEDS: EZETIMIBE 10 MG TAB PO SCH (09:18)
[2023-03-03] MEDS: carvediloL 25 MG TAB PO SCH (09:18)
[2023-03-03] MEDS: HYDRALAZINE HCL 25 MG TABLET PO SCH (09:18)
[2023-03-03] MEDS: GABAPENTIN 300 MG CAP PO SCH (09:18)
[2023-03-03] MEDS: LIDOCAINE 4% PATCH TD SCH (09:19)
[2023-03-03] MEDS: ASPIRIN EC 81 MG TAB PO SCH (09:19)
[2023-03-03 10:15] VITALS: BP 149/74; TEMP 98.4
--- NOTE | 2023-03-03 14:25 | P.PN ---
Date of Service: 03/03/23 Subjective: Discharge was held yesterday as patient was experiencing nausea, vomiting, and constipation and therefore discharge was held Feeling much better today, ready to go home Denies chest pain, abd pain, vomiting Patient to be discharged home today back to family at home, please refer to discharge summary from 03/02 for further details ROS: 10 point ROS as noted above, otherwise negative Physical exam GEN: Alert, oriented, NAD, obese HEENT: Normal conjunctiva, sclera anicteric CV: Regular rate and rhythm, no edema Pulm: Nonlabored respirations on room air ABD: Soft, nontender, nondistended MSK: No joint tenderness Integumentary: No rashes Neuro: Normal speech, normal affect Vitals reviewed Problem List Chest pain rule out [place] Angina History of CAD Acute on chronic diastolic heart failure Heart cath 02/28 Conclusion: 1. Severe LAD disease with widely patent ROBIN to LAD 2. Mild coronary artery disease elsewhere Plan: Medical management. No further inpatient workup from cardiology CTA Chest negative Clear for discharge Hypertension essential Continue home antihypertensives. Insulin-dependent diabetes blood glucose 187 Accu-Cheks, sliding scale insulin, resume home insulin Normocytic anemia Trend H&H Hypoalbuminemia hyperlipidemia Continue home dose Lipitor. Anxiety disorder/panic attacks Continue home medications. Time Spent Managing Pts Care (In Minutes): 35
--- NOTE | 2023-03-04 14:41 | EKG ---
Test Date: 2023-02-25 Test Time: 09:34:40 Supervising Fire Marshal: MUSA MEASUREMENT RESULTS: Intervals: Rate: 66 WI: 106 QRSD: 70 QT: 408 QTc: 427 [place]: P: 59 WI: 106 QRS: -34 T: 42 INTERPRETIVE STATEMENTS: Sinus rhythm with short WI Left axis deviation Possible Inferior infarct, age undetermined Cannot rule out Anterior infarct, age undetermined Abnormal ECG Compared to ECG 02/23/2023 14:40:53 Short WI interval now present Left-axis deviation now present Right-axis deviation no longer present Myocardial infarct finding still present Electronically Signed On 03-04-23 14:20:36 PREBOARDER by Elia Floyd
--- NOTE | 2023-03-04 14:41 | EKG ---
Test Date: 2023-02-25 Test Time: 09:35:13 Solid Fiber Paster Operator: MUSA MEASUREMENT RESULTS: Intervals: Rate: 65 MT: 122 QRSD: 62 QT: 404 QTc: 420 [place]: P: 75 MT: 122 QRS: -29 T: 80 INTERPRETIVE STATEMENTS: Normal sinus rhythm Septal infarct, age undetermined Abnormal ECG Compared to ECG 02/25/2023 09:34:40 Short MT interval no longer present Left-axis deviation no longer present Myocardial infarct finding still present Electronically Signed On 03-04-23 14:20:34 IN FLIGHT REFUELING CRAFTSMAN by Elia Floyd
--- NOTE | 2023-03-04 14:51 | EKG ---
Test Date: 2023-02-23 Test Time: 14:40:53 Senior Technical Manager: ROSAURA MEASUREMENT RESULTS: Intervals: Rate: 93 SC: 140 QRSD: 74 QT: 386 QTc: 479 [place]: P: 66 SC: 140 QRS: 93 T: 13 INTERPRETIVE STATEMENTS: Normal sinus rhythm Rightward axis Cannot rule out Inferior infarct, age undetermined Cannot rule out Anterior infarct, age undetermined Abnormal ECG Compared to ECG 02/20/2023 17:40:14 Right-axis deviation now present Myocardial infarct finding still present Electronically Signed On 03-04-23 14:25:02 MICROCOMPUTER TECHNICIAN by Elia Floyd
== END 2023-03-03 11:50 | disposition home health service (06) | DRG 286 ==
LOC: ER 14:20 → ERHOLD 16:52 → 2ND 19:28 → INTOOBSV 02-24 10:29 → OBSVTOIN 02-24 10:29
PROVIDERS: ADMIT Internal Medicine; ATTEND Hospitalist
PROC: B2111ZZ Fluoroscopy of Multiple Coronary Arteries using Low Osmolar Contrast (ICD-10-PCS; principal; 2023-02-28)
PROC: 4A023N7 Measurement of Cardiac Sampling and Pressure, Left Heart, Percutaneous Approach (ICD-10-PCS; 2023-02-28)
PROC: B2121ZZ Fluoroscopy of Single Coronary Artery Bypass Graft using Low Osmolar Contrast (ICD-10-PCS; 2023-02-28)
DX: I25.110 Atherosclerotic heart disease of native coronary artery with unstable angina pectoris (principal); I50.33 Acute on chronic diastolic (congestive) heart failure; N17.9 Acute kidney failure, unspecified; I11.0 Hypertensive heart disease with heart failure; E11.9 Type 2 diabetes mellitus without complications; D64.9 Anemia, unspecified; E78.5 Hyperlipidemia, unspecified; K59.00 Constipation, unspecified; F41.0 Panic disorder [episodic paroxysmal anxiety]; E88.09 Other disorders of plasma-protein metabolism, not elsewhere classified; Z95.5 Presence of coronary angioplasty implant and graft; Z88.8 Allergy status to other drugs, medicaments and biological substances; Z95.1 Presence of aortocoronary bypass graft; Z79.4 Long term (current) use of insulin; Z95.0 Presence of cardiac pacemaker; Z79.84 Long term (current) use of oral hypoglycemic drugs; Z98.51 Tubal ligation status; Z79.02 Long term (current) use of antithrombotics/antiplatelets; Z79.899 Other long term (current) drug therapy; Z90.710 Acquired absence of both cervix and uterus
CPT/HCPCS: 36415; 71045; 71275; 74018; 76937; 80048; 80061; 80076; 82947; 83735; 83880; 84100; 84484; 85025; 85379; 87804; 93005; 93459; 96374; 96375; 99285; C1760; C1893; G0269; J0360; J0461; J1815; J1940; J2001; J2250; J2405; J3010; J3475; J7030; J7040; Q9966; Q9967

== ENCOUNTER 2023-03-30 19:45 | Inpatient (IN) | payer OTHER ==
--- NOTE | 2023-03-30 20:42 | RAD REPORT ---
EXAM DESCRIPTION: RADChest Single View03/30/2023 8:27 pm CLINICAL HISTORY: CHEST PAIN COMPARISON: Abdomen 1 View (KUB) dated 03/02/2023; Chest Single View dated 02/23/2023; Chest Single Vi ew dated 02/20/2023; Chest Single View dated 02/18/2023 TECHNIQUE: Portable AP view of the chest. FINDINGS: The lungs are clear. Streaky left basilar atelectasis. No pneumothorax or effusion. The ca rdiomediastinal contours are unremarkable. Sequelae of CABG. Implantable rhythm monitoring device in place. IMPRESSION: No acute cardiopulmonary process.
[2023-03-30 21:37] LABS: Absolute Lymphocytes (CBC) 1.3 K/uL (0.7-4.9); MCV 86.1 fL (80-100); MPV 8.9 fL (7.6-11.3); Platelets 274 thou/uL (152-406); RBC Red Blood Cell Count 3.48 M/uL (3.86-4.86)
[2023-03-30 21:41] LABS: Protime INR 1.08
--- NOTE | 2023-03-30 21:43 | EDPHYS ---
Physician Documentation [facility] Name: Romy Cortes Age: 52 yrs Sex: Female : 1970 Arrival Date: 03/30/2023 Time: 19:45 Bed 20 Private MD: OSCAR Physician Nir Raymundo HPI: 03/30 20:28 This 52 yrs old Black Female presents to ER via EMS with complaints of Chest Pain. yuliya Historical: - Allergies: 19:52 amlodipine; bp - Home Meds: 19:52 atorvastatin 40 mg oral tablet 1 tab daily [Active]; Fluoxetine Oral [Active]; bp ranolazine oral [Active]; aspirin 81 mg Oral TbEC 1 tab once daily [Active]; buspirone 10 mg Oral tablet 1 tab 2 times per day [Active]; carvedilol 25 mg Oral tablet 1 tab 2 times per day [Active]; ezetimibe 10 mg Oral tablet 1 tab daily [Active]; gabapentin 600 mg Oral tablet 1 tab daily [Active]; Lipitor 80 mg Oral tab 1 tab once daily [Active]; hydralazine 25 mg Oral tablet 1 tab 2 times per day [Active]; insulin glargine 100 unit/mL Sub-Q solution 20 units at bedtime [Active]; isosorbide mononitrate 20 mg Oral tablet 1 tab daily [Active]; Lasix 20 mg Oral tab 1 tab once daily [Active]; lisinopril 40 mg Oral tablet 1 tab daily [Active]; nitroglycerin 0.4 mg SL Tablet 1 tab every 5 minutes [Active]; sertraline 50 mg Oral tablet 1 tabs daily [Active]; Plavix 75 mg Oral tab 1 tab once daily [Active]; ondansetron HCl 4 mg Oral tablet 1 tab every 6 hours [Active]; - PMHx: 19:52 CAD; cardiac stent x2; Cerebrovascular accident; Diabetes - IDDM; Hyperlipidemia; bp Hypertension; link recorder; - PSHx: 19:52 CABG; Tonsillectomy; tubal ligation; bp - Immunization history:: Adult Immunizations up to date. - Social history:: Smoking status: unknown. ROS: 21:06 Constitutional: Negative for fever, chills, and weight loss, Eyes: Negative for injury, yuliya pain, redness, and discharge, ENT: Negative for injury, pain, and discharge, Neck: Negative for injury, pain, and swelling, Respiratory: Negative for shortness of breath, cough, wheezing, and pleuritic chest pain, Back: Negative for injury and pain, : Negative for injury, bleeding, discharge, and swelling, MS/Extremity: Negative for injury and deformity, Skin: Negative for injury, rash, and discoloration, Neuro: Negative for headache, weakness, numbness, tingling, and seizure, Psych: Negative for depression, anxiety, suicide ideation, homicidal ideation, and hallucinations, Allergy/Immunology: Negative for hives, rash, and allergies, Endocrine: Negative for neck swelling, polydipsia, polyuria, polyphagia, and marked weight changes, Hematologic/Lymphatic: Negative for swollen nodes, abnormal bleeding, and unusual bruising, 21:06 Cardiovascular: Positive for chest pain, of the chest, 21:06 Abdomen/GI: Positive for nausea and vomiting, Exam: 21:06 Constitutional: This is a well developed, well nourished patient who is awake, alert, yuliya and in no acute distress. Head/Face: Normocephalic, atraumatic. Eyes: Pupils equal round and reactive to light, extra-ocular motions intact. Lids and lashes normal. Conjunctiva and sclera are non-icteric and not injected. Cornea within normal limits. Periorbital areas with no swelling, redness, or edema. ENT: Nares patent. No nasal discharge, no septal abnormalities noted. Tympanic membranes are normal and external auditory canals are clear. Oropharynx with no redness, swelling, or masses, exudates, or evidence of obstruction, uvula midline. Mucous membranes moist. Neck: Trachea midline, no thyromegaly or masses palpated, and no cervical lymphadenopathy. Supple, full range of motion without nuchal rigidity, or vertebral point tenderness. No Meningismus. Chest/axilla: Normal chest wall appearance and motion. Nontender with no deformity. No lesions are appreciated. Cardiovascular: Regular rate and rhythm with a normal S1 and S2. No gallops, murmurs, or rubs. Normal PMI, no JVD. No pulse deficits. Respiratory: Lungs have equal breath sounds bilaterally, clear to auscultation and percussion. No rales, rhonchi or wheezes noted. No increased work of breathing, no retractions or nasal flaring. Abdomen/GI: Soft, non-tender, with normal bowel sounds. No distension or tympany. No guarding or rebound. No evidence of tenderness throughout. Back: No spinal tenderness. No costovertebral tenderness. Full range of motion. Skin: Warm, dry with normal turgor. Normal color with no rashes, no lesions, and no evidence of cellulitis. MS/ Extremity: Pulses equal, no cyanosis. Neurovascular intact. Full, normal range of motion. Neuro: Awake and alert, GCS 15, oriented to person, place, time, and situation. Cranial nerves II-XII grossly intact. Motor strength 5/5 in all extremities. Sensory grossly intact. Cerebellar exam normal. Normal gait. Psych: Awake, alert, with orientation to person, place and time. Behavior, mood, and affect are within normal limits. 21:06 ECG was reviewed by the Attending Physician. Vital Signs: 19:51 BP 176 / 94; Pulse 61; Resp 16; Temp 98; Pulse Ox 100% on 3 lpm NC; bp 22:06 BP 118 / 63; Pulse 59; Resp 15; Pulse Ox 99% on 2 lpm NC; Weight 104.33 kg; bp NIH Stroke Scale Scores: 21:06 NIHSS Score: 0 yuliya MDM: 20:10 Patient medically screened. yuliya 21:09 Differential diagnosis: abnormal EKG, acute myocardial infarction, acute pericarditis, yuliya anxiety, costochondritis, gastritis, hiatal hernia, pancreatitis, peptic ulcer disease, pulmonary embolus, stable angina, unstable angina. HEART Score: History: Slightly Suspicious (0), ECG: Non specific repolarization disturbance / LBTB / PM (1), Age: > 45 and < 65 years (1), Risk Factors: > or = 3 Risk factors for atherosclerotic disease (2), [Hypercholesterolemia] [Hypertension] [DM] [+ Family HX] [Obesity] Troponin: < or = 1 x Normal Limit (0). The patient was given aspirin in the Emergency Department. Data reviewed: vital signs, nurses notes, lab test result(s), CBC, electrolytes, EKG, radiologic studies. I considered the following discharge prescriptions or medication management in the emergency department Medications were administered in the Emergency Department. See MAR. Independent interpretation of the following test(s) in the Emergency Department EKG: See my EKG interpretation above. Test considered but Not performed: Ultrasound no er 2 d echo. Historians other than the Patient: pt well informed. 03/30 20:12 Order name: Basic Metabolic Panel; Complete Time: 22:18 [facility] 03/30 20:12 Order name: CBC with Diff; Complete Time: 21:49 [facility] 03/30 20:12 Order name: LFT's; Complete Time: 22:18 [facility] 03/30 20:12 Order name: Magnesium; Complete Time: 22:18 [facility] 03/30 20:12 Order name: NT PRO-BNP; Complete Time: 22:18 [facility] 03/30 20:12 Order name: PT-INR; Complete Time: 21:49 [facility] 03/30 20:12 Order name: Troponin HS; Complete Time: 22:18 [facility] 03/30 20:12 Order name: Lipase; Complete Time: 22:18 [facility] 03/30 20:12 Order name: Urinalysis w/ reflexes yuliya 03/30 22:29 Order name: Urinalysis w/ reflexes [facility] 03/30 22:29 Order name: Troponin High Sensitivity [facility] 03/30 22:29 Order name: Troponin High Sensitivity EDMS 03/30 22:29 Order name: Troponin High Sensitivity EDMS 03/30 22:29 Order name: Troponin High Sensitivity EDMS 03/30 22:29 Order name: Troponin High Sensitivity EDMS 03/30 20:12 Order name: XRAY Chest (1 view); Complete Time: 21:39 [facility] 03/30 22:25 Order name: Chest For Pe Angio [facility] 03/30 23:46 Order name: US Extremity Venous W Compression Chet [facility] 03/30 20:12 Order name: EKG; Complete Time: 20:13 [facility] 03/30 20:12 Order name: Cardiac monitoring; Complete Time: 20:19 [facility] 03/30 20:12 Order name: EKG - Nurse/Tech; Complete Time: 20:19 [facility] 03/30 20:12 Order name: IV Saline Lock; Complete Time: 21:47 [facility] 03/30 20:12 Order name: Labs collected and sent; Complete Time: 21:47 [facility] 03/30 20:12 Order name: O2 Per Protocol; Complete Time: 20:19 [facility] 03/30 20:12 Order name: O2 Sat Monitoring; Complete Time: 20:19 [facility] EC:06 Rate is 60 beats/min. Rhythm is regular. QRS [place] is Normal. IN interval is normal. QRS yuliya interval is normal. QT interval is normal. No Q waves. T waves are Normal. No ST changes noted. Clinical impression: NSR w/ Non-specific ST/T Changes and No evidence of ischemia. Interpreted by me. Reviewed by me. Administered Medications: 20:20 Drug: Aspirin PO Chewable Tablet 162 mg PO once {Note: GIVEN IN EMS.} Route: PO; bp 03/31 01:44 Follow up: Response: No adverse reaction bp 03/30 22:03 Drug: morphine IVP or IV 2 mg IVP once over 4 mins Route: IVP; Infused Over: 4 mins; bp Site: right forearm; 03/31 01:44 Follow up: Response: No adverse reaction bp 03/30 22:03 Drug: morphine IVP or IV 2 mg IVP once over 4 mins Route: IVP; Infused Over: 4 mins; bp Site: right forearm; 03/31 01:44 Follow up: Response: No adverse reaction bp 03/30 22:03 Drug: Ativan IVP 0.5 mg IVP once Route: IVP; Site: right forearm; bp 03/31 01:44 Follow up: Response: No adverse reaction bp 03/30 22:03 Drug: Ondansetron IVP 4 mg IVP once; over 2 minutes Route: IVP; Site: right forearm; bp 03/31 01:44 Follow up: Response: No adverse reaction bp 03/30 22:03 Drug: Famotidine IVP 20 mg IVP once; dilute with 10 mL 0.9% NaCl; give over 2 minutes bp Route: IVP; Site: right forearm; 03/31 01:44 Follow up: Response: No adverse reaction bp 00:15 Drug: Enoxaparin Sub-Q 1 mg/kg Sub-Q once Route: Sub-Q; Site: right lower abdomen; bp 01:45 Follow up: Response: No adverse reaction bp Disposition Summary: 03/30/23 21:43 Hospitalization Ordered Notes: Provider: Ever Dye yuliya Condition: Fair yuliya Problem: new yuliya Symptoms: have improved yuliya Bed/Room Type: Standard yuliya Hospitalization Status: Inpatient Admission(03/30/23 23:46) yuliya Location: Telemetry/MedSurg (Inpatient)(03/30/23 23:46) yuliya Room Assignment: [facility](03/31/23 01:34) cg Diagnosis - Chest pain, unspecified yuliya - Weakness yuliya - Unspecified kidney failure yuliya - Other pulmonary embolism without acute cor pulmonale - LEFT LOWER LOBE yuliya - Acute embolism and thrombosis of other specified deep vein of left lower extremity yuliya Forms: - Medication Reconciliation Form yuliya - SBAR form yuliya - Leadership Thank You Letter yuliya NIH Stroke Scale - NIH Stroke Score Date: 03/30/2023 Time: 21:06 Total Score = 0 10. Dysarthria (speech clarity - read or repeat words) - 0(Normal) 11. Extinction and Inattention (visual/tactile/auditory/spatial/personal) - 0(No abnormality) 1a. Level of Consciousness (LOC) - 0(Alert) 1b. Level of Consciousness (LOC) (Month \T\ Age) - 0(Both) 1c. LOC Commands (Open \T\ Closes Eyes/Shift Engineer) - 0(Both) 2. Best Gaze (Lateral Gaze Paresis) - 0(Normal) 3. Visual Field Loss - 0(No visual loss) 4. Facial Palsy - 0(Normal) 5a. Left Arm: Motor (10-second hold) - 0(No drift) 5b. Right Arm: Motor (10-second hold) - 0(No drift) 6a. Left Leg: Motor (5-second hold - always test supine) - 0(No drift) 6b. Right Leg: Motor (5-second hold - always test supine) - 0(No drift) 7. Limb Ataxia (finger/nose \T\ heel/lopez - test with eyes open) - 0(Absent) 8. Sensory Loss (pinprick arms/legs/face) - 0(Normal) 9. Best Language: Aphasia (description/naming/reading) - 0(No aphasia) Initials: yuliya Signatures: Dispatcher [employer] Nir Romo MD MD cha Garcia, Cindy, RN RN Manny Newton RN RN bp Corrections: (The following items were deleted from the chart) 03/30 23:46 21:43 Observation yuliya yuliya :46 21:43 Telemetry/MedSurg (observation) yuliya yuliya :46 21:43 yuliya yuliya 03/31 01:34 03/30 23:46 [facility]
--- NOTE | 2023-03-30 21:43 | ER ---
Nurse's Notes [facility] Name: Romy Cortes Age: 52 yrs Sex: Female : 1970 Arrival Date: 03/30/2023 Time: 19:45 Bed 20 Private MD: Diagnosis: Chest pain, unspecified;Weakness;Unspecified kidney failure;Other pulmonary embolism without acute cor pulmonale-LEFT LOWER LOBE;Acute embolism and thrombosis of other specified deep vein of left lower extremity Presentation: 03/30 19:51 Chief complaint: EMS states: CHEST PAIN SINCE AM. Coronavirus screen: At this time, the bp client does not indicate any symptoms associated with coronavirus-19. Ebola Screen: No symptoms or risks identified at this time. 19:51 Method Of Arrival: EMS: [facility] bp 19:56 Initial Sepsis Screen: Does the patient meet any 2 criteria? No. Patient's initial bp sepsis screen is negative. Does the patient have a suspected source of infection? No. Patient's initial sepsis screen is negative. Risk Assessment: Do you want to hurt yourself or someone else? Patient reports no desire to harm self or others. Onset of symptoms was March 30, 2023. 19:56 Acuity: WYATT 3 bp 19:56 Care prior to arrival: Medication(s) given: ASA, 81 mg, x 4, zofran 4 mg, Glucose bp check: 249. Triage Assessment: 20:00 General: Appears distressed, obese, Behavior is cooperative, appropriate for age, bp anxious. Pain: Complains of pain in chest. Cardiovascular: Reports chest pain, since THIS AM. Historical: - Allergies: 19:52 amlodipine; bp - Home Meds: 19:52 atorvastatin 40 mg oral tablet 1 tab daily [Active]; Fluoxetine Oral [Active]; bp ranolazine oral [Active]; aspirin 81 mg Oral TbEC 1 tab once daily [Active]; buspirone 10 mg Oral tablet 1 tab 2 times per day [Active]; carvedilol 25 mg Oral tablet 1 tab 2 times per day [Active]; ezetimibe 10 mg Oral tablet 1 tab daily [Active]; gabapentin 600 mg Oral tablet 1 tab daily [Active]; Lipitor 80 mg Oral tab 1 tab once daily [Active]; hydralazine 25 mg Oral tablet 1 tab 2 times per day [Active]; insulin glargine 100 unit/mL Sub-Q solution 20 units at bedtime [Active]; isosorbide mononitrate 20 mg Oral tablet 1 tab daily [Active]; Lasix 20 mg Oral tab 1 tab once daily [Active]; lisinopril 40 mg Oral tablet 1 tab daily [Active]; nitroglycerin 0.4 mg SL Tablet 1 tab every 5 minutes [Active]; sertraline 50 mg Oral tablet 1 tabs daily [Active]; Plavix 75 mg Oral tab 1 tab once daily [Active]; ondansetron HCl 4 mg Oral tablet 1 tab every 6 hours [Active]; - PMHx: 19:52 CAD; cardiac stent x2; Cerebrovascular accident; Diabetes - IDDM; Hyperlipidemia; bp Hypertension; link recorder; - PSHx: 19:52 CABG; Tonsillectomy; tubal ligation; bp - Immunization history:: Adult Immunizations up to date. - Social history:: Smoking status: unknown. Screenin:07 [facility] ED Fall Risk Assessment (Adult) History of falling in the last 3 months, bp including since admission No falls in past 3 months (0 pts). Abuse screen: Denies threats or abuse. Denies injuries from another. Nutritional screening: No deficits noted. Tuberculosis screening: No symptoms or risk factors identified. Assessment: 19:55 General: SEE TRIAGE NOTE. bp 22:07 Reassessment: Patient and/or family updated on plan of care and expected duration. Pain bp level reassessed. Patient is alert, oriented x 3, equal unlabored respirations, skin warm/dry/pink. Vital Signs: 19:51 BP 176 / 94; Pulse 61; Resp 16; Temp 98; Pulse Ox 100% on 3 lpm NC; bp 22:06 BP 118 / 63; Pulse 59; Resp 15; Pulse Ox 99% on 2 lpm NC; Weight 104.33 kg; bp NIH Stroke Scale Scores: 21:06 NIHSS Score: 0 yuliya ED Course: 19:48 Patient arrived in ED. wm 19:48 Manny Mohan, RN is Primary Nurse. bp 19:57 Triage completed. bp 20:00 Arm band placed on. bp 20:09 Nir Raymundo MD is Attending Physician. yuliya 20:30 XRAY Chest (1 view) In Process Unspecified. EDMS 21:37 Inserted saline lock: 18 gauge in right forearm, using aseptic technique. Blood rv collected. 21:40 Ever Dye MD is Hospitalizing Provider. yuliya 22:07 Patient has correct armband on for positive identification. Bed in low position. Call bp light in reach. Side rails up X2. Client placed on continuous cardiac and pulse oximetry monitoring. NIBP monitoring applied. Administered Medications: 20:20 Drug: Aspirin PO Chewable Tablet 162 mg PO once {Note: GIVEN IN EMS.} Route: PO; bp 03/31 01:44 Follow up: Response: No adverse reaction bp 03/30 22:03 Drug: morphine IVP or IV 2 mg IVP once over 4 mins Route: IVP; Infused Over: 4 mins; bp Site: right forearm; 03/31 01:44 Follow up: Response: No adverse reaction bp 03/30 22:03 Drug: morphine IVP or IV 2 mg IVP once over 4 mins Route: IVP; Infused Over: 4 mins; bp Site: right forearm; 03/31 01:44 Follow up: Response: No adverse reaction bp 03/30 22:03 Drug: Ativan IVP 0.5 mg IVP once Route: IVP; Site: right forearm; bp 03/31 01:44 Follow up: Response: No adverse reaction bp 03/30 22:03 Drug: Ondansetron IVP 4 mg IVP once; over 2 minutes Route: IVP; Site: right forearm; bp 03/31 01:44 Follow up: Response: No adverse reaction bp 03/30 22:03 Drug: Famotidine IVP 20 mg IVP once; dilute with 10 mL 0.9% NaCl; give over 2 minutes bp Route: IVP; Site: right forearm; 03/31 01:44 Follow up: Response: No adverse reaction bp 00:15 Drug: Enoxaparin Sub-Q 1 mg/kg Sub-Q once Route: Sub-Q; Site: right lower abdomen; bp 01:45 Follow up: Response: No adverse reaction bp Outcome: 03/30 21:43 Decision to Hospitalize by Provider. [facility] [place] 03/31 02:33 Patient left the ED. bp NIH Stroke Scale - NIH Stroke Score Date: 03/30/2023 Time: 21:06 Total Score = 0 10. Dysarthria (speech clarity - read or repeat words) - 0(Normal) 11. Extinction and Inattention (visual/tactile/auditory/spatial/personal) - 0(No abnormality) 1a. Level of Consciousness (LOC) - 0(Alert) 1b. Level of Consciousness (LOC) (Month \T\ Age) - 0(Both) 1c. LOC Commands (Open \T\ Closes Eyes/Practice Nurse) - 0(Both) 2. Best Gaze (Lateral Gaze Paresis) - 0(Normal) 3. Visual Field Loss - 0(No visual loss) 4. Facial Palsy - 0(Normal) 5a. Left Arm: Motor (10-second hold) - 0(No drift) 5b. Right Arm: Motor (10-second hold) - 0(No drift) 6a. Left Leg: Motor (5-second hold - always test supine) - 0(No drift) 6b. Right Leg: Motor (5-second hold - always test supine) - 0(No drift) 7. Limb Ataxia (finger/nose \T\ heel/lopez - test with eyes open) - 0(Absent) 8. Sensory Loss (pinprick arms/legs/face) - 0(Normal) 9. Best Language: Aphasia (description/naming/reading) - 0(No aphasia) Initials: yuliya Signatures: Dispatcher [employer] EDNir Zhu MD MD cha Peltier, Brian, RN RN Byron Ramsey RN RN Vanessa Monahan Corrections: (The following items were deleted from the chart) 03/30 23:48 22:06 BP 118 / 63; Pulse 59bpm; Resp 15bpm; Pulse Ox 99% 2 lpm Nasal Cannula; bpbp
[2023-03-30] MEDS ORDERED: LORazepam 2 MG/ML VIAL ONE (22:07)
[2023-03-30] MEDS ORDERED: FAMOTIDINE 20 MG/2 ML VIAL IV ONE (22:08)
[2023-03-30] MEDS ORDERED: ONDANSETRON 4 MG/2 ML VIAL ONE (22:08)
[2023-03-30] MEDS ORDERED: MORPHINE 4 MG/ML SYR ONE (22:08)
[2023-03-30 22:10] LABS: Albumin 3.1 g/dL (3.4-5.0); Bilirubin Direct 0.1 mg/dL (0-0.2); Bilirubin Indirect, Calculated 0.2 mg/dL (0.2-0.8); Bilirubin Total 0.3 mg/dL (0.2-1.0); Magnesium 2.4 mg/dL (1.6-2.4); Potassium 4.1 mEq/L (3.5-5.1); Protein, Total 7.7 g/dL (6.4-8.2); Troponin High Sensitivity 8.4 pg/mL (<58.9)
[2023-03-30] MEDS ORDERED: ACETAMINOPHEN 500 MG TAB PO PRN (22:23)
[2023-03-30] MEDS ORDERED: TRAZODONE 50 MG TABLET PO PRN (22:27)
[2023-03-30] MEDS ORDERED: hydrOXYzine HCL 25 MG TAB PO PRN (22:27)
[2023-03-30] MEDS ORDERED: LACTULOSE 20 GM/30 ML UCUP PO PRN (22:27)
[2023-03-30] MEDS ORDERED: NITROGLYCERIN 0.4 MG/TAB SL PRN (22:27)
--- NOTE | 2023-03-30 22:30 | P.HP ---
Certification for Inpatient Patient admitted to: Observation With expected LOS: <2 Midnights Practitioner: I am a practitioner with admitting privileges, knowledge of patient current condition, hospital course, and medical plan of care. Services: Services provided to patient in accordance with Admission requirements found in Title 42 Section 412.3 of the Code of Federal Regulations Patient History Date of Service: 03/30/23 Reason for admission: Chest Pain History of Present Illness: 52 yrs old Female past medical history hypertension, diabetes, hyperlipidemia, CAD status post stents, CVA came to ER with chest pain . Chest pain is retrosternal with no radiation. Associated with some shortness of breath. No fever or chills. Denies any cough. Denies any nausea vomiting or diarrhea. Patient states that she is having started having symptoms since yesterday and has been progressively worsening. Associated with generalized weakness and malaise. Patient was assessed in the ER and is admitted for further management of chest pain to rule out ACS Allergies amlodipine Allergy ([facility], Verified 02/23/23 17:27) Hives Home medications list reviewed: Yes Home Medications: Aspirin [Ecotrin 81 MG] 81 mg PO DAILY #30 tablet. 03/19/16 Atorvastatin Calcium [Lipitor*] 80 mg PO BEDTIME 09/01/21 Clopidogrel Bisulfate [Plavix] 75 mg PO DAILY 09/01/21 Ezetimibe [Zetia] 10 mg PO DAILY 09/01/21 Furosemide 20 mg PO DAILY 09/01/21 Gabapentin 400 mg PO DAILY 09/01/21 Nitroglycerin [Nitrostat*] 0.4 mg SL [id number] PRN 01/27/23 carvediloL [Coreg*] 25 mg PO BID #60 tab 01/27/23 lisinopriL [Prinivil*] 40 mg PO DAILY #30 tab 01/27/23 Fluoxetine HCl [Prozac*] 10 mg PO DAILY 02/23/23 Insulin Glargine,Hum.rec.anlog [Lantus Solostar] 35 unit SQ DAILY 02/23/23 Insulin Lispro [Humalog] See Protocol SQ ACHS 02/23/23 Isosorbide Mononitrate [Isosorbide Mononitrate ER] 30 mg PO DAILY 02/23/23 Lactulose 10 gm PO Q12HP PRN 02/23/23 Lidocaine 4% Patch [Lidoderm 5% Patch*] 1 patch TD DAILY 02/23/23 Melatonin [Melatoninmax] 10 mg PO BEDTIME 02/23/23 Omeprazole [Prilosec] 40 mg PO DAILY 02/23/23 Promethazine Tab [Phenergan*] 25 mg PO Q6HP PRN 02/23/23 Trazodone HCl 50 mg PO BEDTIME PRN PRN 02/23/23 hydrOXYzine HCL [Atarax] 50 mg PO Q6HP PRN 02/23/23 - Past Medical/Surgical History Diabetic: Yes Past Medical History: Reviewed- Non-Contributory -: hyperlipidemia -: hypertension -: Type 2 diabetes -: CVA -: CAD status post CABG -: Obesity Past Surgical History: Reviewed- Non-Contributory -: hysterectomy -: hypertension -: tonsilectomy -: -: lumber spinal fusion -: cardiac stents x 2 2016 -: Gastric pacemaker/gastroparesis Psychosocial/ Personal History: [facility] currently at [facility] after CVA - Family History Family History: Reviewed- Non-Contributory - Family History Father -: Heart disease, Hypertension, Diabetes, Stroke Mother Notes: no medical history - Social History Smoking Status: Never smoker Alcohol use: No CD- Drugs: No Caffeine use: No Review of Systems 10-point ROS is otherwise unremarkable General: Weakness, Malaise Eyes: Pain ENT: Unremarkable Respiratory: As per HPI Cardiovascular: Chest Pain, Orthopnea Gastrointestinal: Unremarkable Musculoskeletal: Unremarkable Integumentary: Unremarkable Neurological: Unremarkable Physical Examination - Vital Signs Temperature: 98.4 F Blood Pressure: 138/78 Pulse: 74 Respirations: 18 Pulse Ox (%): 94 - Physical Exam General: Alert, Oriented x3, Mild distress HEENT: Atraumatic, Normocephalic Neck: Supple, No Thyromegaly Respiratory: Clear to auscultation bilaterally, Normal air movement Cardiovascular: Regular rate/rhythm, Normal S1 S2 Capillary refill: <2 Seconds Gastrointestinal: Soft and benign, W/out hepatosplenomegaly Musculoskeletal: No clubbing, No swelling Integumentary: No rashes Neurological: Normal speech, Normal strength at 5/5 x4 extr, Other (Alert, Awake ) Lymphatics: No axilla or inguinal lymphadenopathy - Studies Laboratory Data (last 24 hrs) 03/30/23 03/30/23 03/30/23 20:30 20:30 20:30 WBC 9.40 Hgb 9.8 L Hct 30.0 L Plt Count 274 PT 11.9 INR 1.08 Sodium 136 Potassium 4.1 BUN 31 H Creatinine 1.48 H Glucose 212 H Magnesium 2.4 Total Bilirubin 0.3 AST 10 L ALT 17 Alkaline Phosphatase 68 Lipase 10 L Assessment and Plan - Problems (Diagnosis) (1) Chest pain Onset Date: 03/21/16 Current Visit: No Status: Acute Plan: Chest pain rule out ACS History of CAD status post stents and possible CABG Monitor closely telemetry Trend cardiac enzymes Aspirin and statin Continue home medications and titrate as needed Will get a CT chest PE protocol Qualifiers: Chest pain type: other chest pain Qualified Code(s): R07.89 - Other chest pain; R07.8 - Other chest pain (2) Diabetes mellitus type II, uncontrolled Onset Date: 03/21/16 Current Visit: No Status: Chronic Plan: Insulin sliding scale Basal insulin added Will get an A1c in a.m. Accu-Cheks before every meal and at bedtime (3) Hypertension Current Visit: No Status: Chronic Plan: Continue home medications and titrate as needed (4) Acute kidney injury Current Visit: Yes Status: Acute Plan: Renal parameters monitor Electrolytes monitor and replace accordingly (5) Anemia of chronic disease Current Visit: Yes Status: Chronic Plan: Monitor CBC Denies any overt bleeding Transfuse as needed if hemoglobin less than 7 Discharge Plan: Home Plan to discharge in: 48 Hours - Advance Directives Does patient have a Living Will: No Does patient have a Durable POA for Healthcare: No - Code Status/Comfort Care Code Status: Full Code Time Spent Managing Pts Care (In Minutes): 45
[2023-03-31] MEDS: MORPHINE 4 MG/ML SYR IV PRN ×4 (02:47→22:53)
[2023-03-31 03:21] VITALS: BMI 38.2
[2023-03-31] MEDS: ONDANSETRON 4 MG/2 ML VIAL IV PRN ×3 (05:53→21:11)
[2023-03-31] MEDS: INSULIN REGULAR (HUMAN) 100 UNIT/ML SQ SCH ×4 (07:30→21:00)
[2023-03-31] MEDS ORDERED: CLOPIDOGREL 75 MG TABLET PO SCH (09:00)
[2023-03-31] MEDS: FUROSEMIDE 20 MG TABLET PO SCH (09:16)
[2023-03-31] MEDS: GABAPENTIN 400 MG CAP PO SCH (09:16)
[2023-03-31] MEDS: ISOSORBIDE MONO SR 30 MG TAB PO SCH (09:16)
[2023-03-31] MEDS: lisinopriL 20 MG TAB PO SCH (09:16)
[2023-03-31] MEDS: EZETIMIBE 10 MG TAB PO SCH (09:16)
[2023-03-31] MEDS: ASPIRIN EC 81 MG TAB PO SCH (09:16)
[2023-03-31] MEDS: ENOXAPARIN 100 MG/ML SYR SQ SCH ×2 (09:16→21:01)
[2023-03-31] MEDS: FLUOXETINE 10 MG CAP PO SCH (09:16)
[2023-03-31] MEDS: PANTOPRAZOLE 40MG TABLET PO SCH (09:16)
[2023-03-31] MEDS: carvediloL 25 MG TAB PO SCH ×2 (09:16→21:01)
[2023-03-31] MEDS: TICAGRELOR 90 MG TABLET PO SCH ×2 (09:21→21:01)
--- NOTE | 2023-03-31 09:38 | P.PN ---
Date of Service: 03/31/23 Subjective: Still having some mild shortness of breath Chest pain improved from last night Reports recent heart catheterization with 2 stent placements at [facility] ROS: 10 point ROS as noted above, otherwise negative Physical exam GEN: Alert, oriented, NAD HEENT: Normal conjunctiva, sclera anicteric CV: Regular rate and rhythm, no edema Pulm: Nonlabored respirations on room air ABD: Soft, nontender, nondistended MSK: No joint tenderness Integumentary: No rashes Neuro: Normal speech, normal affect Vitals reviewed Problem List Pulmonary embolism-left lower lobe lobar and segmental branches(small clot burden) CAD with recent stents-previous CABG Chronic diastolic congestive heart failure Diabetes mellitus type 2insulin-dependent with hyperglycemia Acute kidney injury Hypertension Anemia of chronic disease History of CVA-debility/bedbound Plan Pulmonary embolism-left lower lobe lobar and segmental branches(small clot burden) CAD with recent stents-previous CABG Chronic diastolic congestive heart failure Reports recent hospitalization at [facility] discharged 1 week ago Was in the hospital for 2 weeks there, had a heart catheterization with 2 stent placements Appears to been discharged on Brilinta, aspirin Now with PE, on therapy Lovenox, will need to discuss anticoagulation cardiology given recent stents, use of dual antiplatelet therapy Reports chest pain is improved after heart catheterization and still is a mild shortness of breath No CT evidence of right heart strain, obtain echocardiogram Diabetes mellitus type 2insulin-dependent with hyperglycemia ACHS Accu-Chek, sliding scale insulin, continue long-acting insulin from home Acute kidney injury Mild MENDEZ, continue gentle IV fluids, recheck chemistry in the morning. Consider nephrology consult if there is worsening Hypertension Continue home medications Anemia of chronic disease Monitor H&H History of CVA-debility/bedbound Lives at home with her mother, is primarily bedbound Occasionally transfers to wheelchair with assistance from mother/Mona VTE: Therapeutic Lovenox Code: Full Dispo: 24 to 48 hours Time Spent Managing Pts Care (In Minutes): 35 <Jagjit Gil - Last Filed: 03/31/23 09:35> Patient seen and examined on rounds this morning. Plan of care discussed with BAGGING MACHINE OPERATOR Louise. Agree with plan as noted above with the following additions/corrections: PE with small clot burden Suspect this is the source of her symptoms Reportedly was at [facility] 1-2 weeks ago and had stents placed per the patient Will attempt to get records Consult cardiology, regarding dual antiplatelet therapy and anticoagulation Anticipate DC home in 1-2 daysj nonlabored respirations at rest <Ky Palmer - Last Filed: 03/31/23 16:17>
[2023-03-31] MEDS: NA CHLORIDE 0.9% 1,000 ML IV SCH ×2 (10:05→23:25)
[2023-03-31] MEDS: MELATONIN 5 MG TABLET PO SCH (21:02)
[2023-03-31] MEDS: ATORVASTATIN 40 MG TAB PO SCH (21:08)
--- NOTE | 2023-03-31 22:20 | RAD REPORT ---
EXAM DESCRIPTION: CT - Chest For Pe Angio - 03/31/2023 7:10 am CLINICAL HISTORY: Chest pain. COMPARISON: CTA chest from February 18, 2023. Report only for a CTA chest from March 01, 2023. TECHNIQUE: CTA of the chest was performed following intravenous administration of iodinated contrast . Axial soft tissue and lung window, and coronal and sagittal soft tissue window reconstructions were created and sent to PACS. 3D postprocessing was performed on an independent workstation, with images sent to PACS for subsequen t review. This exam was performed according to our departmental dose-optimization program, which includes autom ated exposure control, adjustment of the mA and/or kV according to patient size and/or use of iterati ve reconstruction technique. FINDINGS: Vascular: Acute nonocclusive thromboemboli in left lower lobe lobar and segmental branches . No saddle embolus. No CT evidence of right heart strain. No evidence of aortic aneurysm or dissecti on. Coronary artery stents. Lungs and pleura: No pulmonary consolidation. No pleural effusion. No pneumothorax. Mild atelectasis in the lingula. Mediastinum and neck: No mediastinal lymphadenopathy by CT size criteria. Mildly enlarged thyroid gla nd with a possible 1.1 cm nodule in the isthmus/left lobe (no follow-up imaging recommended). Cardiac: No cardiomegaly or pericardial effusion. Abdomen: No significant upper abdominal abnormality identified. Musculoskeletal: No concerning osseous abnormality. IMPRESSION: 1. Positive for acute pulmonary thromboemboli in the left lower lobe lobar and segment al branches (small clot burden). 2. No CT evidence of right heart strain. THIS REPORT CONTAINS FINDINGS THAT MAY BE CRITICAL TO PATIENT CARE: The findings were verbally discus sed via telephone conference with Dr. Nir Raymundo on 03/30/2023 11:44 PM LEASE OPERATOR. The results were ackn owledged and understood. Electronically signed by: Nurys Haynes MD 03/30/2023 11:46 PM LEASE OPERATOR Due to temporary technical issues with the PACS/Fluency reporting system, reports are being signed by the in house radiologists without review as a courtesy to insure prompt reporting. The interpreting radiologist is fully responsible for the content of the report.
--- NOTE | 2023-03-31 22:50 | RAD REPORT ---
EXAM DESCRIPTION: US - Extrem Venous W Compress Chet - 03/31/2023 12:51 am ADDENDUM #1 ADDENDUM: THIS REPORT CONTAINS FINDINGS THAT MAY BE CRITICAL TO PATIENT'S CARE: The findings were verbally discussed via telephone conference with Dr. Raymundo by Dr. Khan on 1:23 AM TRAIN BRAKEMAN. The results were acknowledged and understood. Electronically signed by: Gentry Khan DO 03/31/2023 01:23 AM TRAIN BRAKEMAN End of Addendum EXAM DESCRIPTION: Extrem Venous W Compress Chet CLINICAL HISTORY: 52 years, Female, Pain;Swelling COMPARISON: None. FINDINGS: Duplex imaging of the deep venous system of bilateral lower extremity was performed with v isualization from the common femoral veins to the popliteal veins and posterior tibial vein. Echogenic thrombus in the right proximal femoral vein and bifurcation. There is normal left compressibility, augmentation and flow with no visualized thrombus. No focal fluid collection is identified. IMPRESSION: Echogenic DVT in the proximal right femoral vein. No left femoral vein DVT. Electronically signed by: Gentry Khan DO 03/31/2023 01:15 AM TRAIN BRAKEMAN ADDENDUM #2 FINDINGS: Duplex imaging of the deep venous system of bilateral lower extremity was performed with v isualization from the common femoral veins to the popliteal veins and posterior tibial vein. Echogenic thrombus in the LEFT proximal femoral vein and bifurcation. There is normal right compressibility, augmentation and flow with no visualized thrombus. No focal fluid collection is identified. IMPRESSION: Echogenic DVT in the proximal LEFT femoral vein. Electronically signed by: Gentry Khan DO 03/31/2023 01:44 AM TRAIN BRAKEMAN End of Addendum ADDENDUM #1 ADDENDUM: THIS REPORT CONTAINS FINDINGS THAT MAY BE CRITICAL TO PATIENT'S CARE: The findings were verbally discussed via telephone conference with Dr. Raymundo by Dr. Khan on 1:23 AM TRAIN BRAKEMAN. The results were acknowledged and understood. Electronically signed by: Gentry Khan DO 03/31/2023 01:23 AM TRAIN BRAKEMAN End of Addendum EXAM DESCRIPTION: Extrem Venous W Compress Chet CLINICAL HISTORY: 52 years, Female, Pain;Swelling COMPARISON: None. FINDINGS: Duplex imaging of the deep venous system of bilateral lower extremity was performed with v isualization from the common femoral veins to the popliteal veins and posterior tibial vein. Echogenic thrombus in the right proximal femoral vein and bifurcation. There is normal left compressibility, augmentation and flow with no visualized thrombus. No focal fluid collection is identified. IMPRESSION: Echogenic DVT in the proximal right femoral vein. No left femoral vein DVT. Electronically signed by: Gentry Khan DO 03/31/2023 01:15 AM TRAIN BRAKEMAN Due to temporary technical issues with the PACS/Fluency reporting system, reports are being signed by the in house radiologists without review as a courtesy to insure prompt reporting. The interpreting radiologist is fully responsible for the content of the report.
--- NOTE | 2023-03-31 23:02 | CON ---
Date of Consultation: 03/31/2023 Reason For Consultation: Chest pain. History Of Present Illness: A 52-year-old female with history of diabetes; hypertension; coronary ar xi disease, status post 1 vessel CABG; and cardiac stents, who presented with chest pain and shortn ess of breath and found to have a PE and DVT. She is on anticoagulant and her chest pain is minimal at this present time. Denies having any nausea, vomiting, or diaphoresis. Past Medical History: As outlined above in the HPI. Medications: Refer consult sheet for detailed list. Allergies: AMLODIPINE. Family History: No mature coronary artery disease or cancer. Social History: Does not smoke or drink. Does not use any drugs. Review of Systems: All systems reviewed are negative except mentioned in HPI. Physical Examination: Vital Signs: Reviewed. Head and Neck: Pupils are equal, reactive to light. Intact eye movements. No JVD. No cervical lym phadenopathy. Neck is supple. Thyroid is not enlarged. Lungs: Clear to auscultation bilaterally. No rhonchi, wheezing, or crackles. No accessory muscle u se. Heart: Regular rate and rhythm. No extra sounds. Abdomen: Soft, nontender. Bowel sounds positive. No organomegaly. No masses or hernia. No rigidi ty or rebound. Extremities: No edema, clubbing, or cyanosis. Intact pulses. Skin: No rash. Neurologic: Alert, awake, oriented x3. No acute focal deficits appreciated. Lymph Nodes: No cervical or axillary lymphadenopathy. Investigations: Labs were reviewed. Assessment/recommendations: 1.Pulmonary embolism with deep vein thrombosis. Agree with anticoagulation with Lovenox. This can be switched to oral with Eliquis to prepare for discharge on that when she is medically stable. 2.Coronary artery disease. Reported recent stent. I did a heart catheterization on her back in Feb [facility] and at that time did not see any significant coronary artery disease. She has severe left ante rior descending disease, but with patent ROBIN. Recommend to continue Brilinta for now and aspirin an d she will have triple therapy including the anticoagulant for 1 month and then aspirin can come off. 3.Dyslipidemia. Continue statin. 4.Congestive heart failure, euvolemia. Continue current therapy. Cardiology will sign off and joanne ent is to follow up with her primary journeyman tool and die maker as an outpatient. SR/MODL Voice ID: [id number] Report ID: [id number]
[2023-04-01 03:08] LABS: Specific Gravity 1.025 (1.005-1.030); Urine Bilirubin NEGATIVE (Negative); Urine Blood Negative (Negative); Urine Clarity Clear (Clear); Urine Color Yellow (Yellow); Urine Glucose NEGATIVE (Negative); Urine Protein NEGATIVE (Negative); Urine Urobilinogen Normal (Normal)
[2023-04-01] MEDS: MORPHINE 4 MG/ML SYR IV PRN ×4 (03:39→21:38)
[2023-04-01] MEDS: INSULIN REGULAR (HUMAN) 100 UNIT/ML SQ SCH ×4 (07:30→21:00)
[2023-04-01 07:45] LABS: Hematocrit 29.2 % (36.0-45.0); Platelets 259 thou/uL (152-406); RBC Red Blood Cell Count 3.36 M/uL (3.86-4.86)
[2023-04-01] MEDS: TICAGRELOR 90 MG TABLET PO SCH ×2 (08:22→21:00)
[2023-04-01] MEDS: EZETIMIBE 10 MG TAB PO SCH (08:22)
[2023-04-01] MEDS: GABAPENTIN 400 MG CAP PO SCH (08:22)
[2023-04-01] MEDS: lisinopriL 20 MG TAB PO SCH (08:22)
[2023-04-01] MEDS: ONDANSETRON 4 MG/2 ML VIAL IV PRN ×3 (08:22→21:37)
[2023-04-01] MEDS: ISOSORBIDE MONO SR 30 MG TAB PO SCH (08:22)
[2023-04-01] MEDS: ENOXAPARIN 100 MG/ML SYR SQ SCH ×2 (08:22→21:15)
[2023-04-01] MEDS: FUROSEMIDE 20 MG TABLET PO SCH (08:23)
[2023-04-01] MEDS: FLUOXETINE 10 MG CAP PO SCH (08:23)
[2023-04-01] MEDS: carvediloL 25 MG TAB PO SCH ×2 (08:23→21:15)
[2023-04-01] MEDS: PANTOPRAZOLE 40MG TABLET PO SCH (08:23)
[2023-04-01] MEDS: ASPIRIN EC 81 MG TAB PO SCH (08:23)
--- NOTE | 2023-04-01 08:43 | P.PN ---
Date of Service: 04/01/23 Subjective: Still having some mild shortness of breath Chest pain improved from last night Reports recent heart catheterization with 2 stent placements at [facility] ROS: 10 point ROS as noted above, otherwise negative Physical exam GEN: Alert, oriented, NAD HEENT: Normal conjunctiva, sclera anicteric CV: Regular rate and rhythm, no edema Pulm: Nonlabored respirations nasal cannula ABD: Soft, nontender, nondistended MSK: No joint tenderness Integumentary: No rashes Neuro: Normal speech, normal affect Vitals reviewed Problem List Pulmonary embolism-left lower lobe lobar and segmental branches(small clot burden) DVT proximal left femoral vein CAD with recent stents-previous CABG Chronic diastolic congestive heart failure Diabetes mellitus type 2insulin-dependent with hyperglycemia Acute kidney injury Hypertension Anemia of chronic disease History of CVA-debility/bedbound Plan Pulmonary embolism-left lower lobe lobar and segmental branches(small clot burden) DVT proximal left femoral vein CAD with recent stents-previous CABG Chronic diastolic congestive heart failure Reports recent hospitalization at [facility] discharged 1 week ago Was in the hospital for 2 weeks there, had a heart catheterization with 2 stent placements Appears to been discharged on Brilinta, aspirin Now with PE, on therapy Lovenox, will need to discuss anticoagulation cardiology given recent stents, use of dual antiplatelet therapy Reports chest pain is improved after heart catheterization and still is a mild shortness of breath No CT evidence of right heart strain, obtain echocardiogram Having chest pain/dyspnea overnight, not feeling well On nasal cannula-obtain room air sat Cardiology rec-eliquis, brillinta, aspirin for now, DC aspirin one month after cath/stents (04/17) Family feel unable to care for patient at home, want social services manager to reach out May go forward with outpatient academic advising director placement Diabetes mellitus type 2insulin-dependent with hyperglycemia ACHS Accu-Chek, sliding scale insulin, continue long-acting insulin from home Acute kidney injury Mild MENDEZ, not improved continue gentle IV fluids, recheck chemistry in the morning. Consider nephrology consult if there is worsening Hypertension Continue home medications Anemia of chronic disease Monitor H&H History of CVA-debility/bedbound Lives at home with her mother, is primarily bedbound Occasionally transfers to wheelchair with assistance from mother/Mona human services manager consult, possible placement issues VTE: Therapeutic Lovenox Code: Full Dispo: 24 to 48 hours Time Spent Managing Pts Care (In Minutes): 35
[2023-04-01] MEDS: MELATONIN 5 MG TABLET PO SCH (21:15)
[2023-04-01] MEDS: ATORVASTATIN 40 MG TAB PO SCH (21:15)
[2023-04-02] MEDS: ONDANSETRON 4 MG/2 ML VIAL IV PRN ×4 (03:52→23:47)
[2023-04-02] MEDS: MORPHINE 4 MG/ML SYR IV PRN ×6 (03:52→23:47)
[2023-04-02 03:53] LABS: Hematocrit 29.6 % (36.0-45.0); MPV 8.8 fL (7.6-11.3); Platelets 271 thou/uL (152-406)
[2023-04-02 04:21] LABS: Potassium 4.1 mEq/L (3.5-5.1)
[2023-04-02] MEDS: INSULIN REGULAR (HUMAN) 100 UNIT/ML SQ SCH ×4 (07:30→20:44)
[2023-04-02] MEDS: TICAGRELOR 90 MG TABLET PO SCH ×2 (08:24→20:39)
[2023-04-02] MEDS: EZETIMIBE 10 MG TAB PO SCH (08:24)
[2023-04-02] MEDS: PANTOPRAZOLE 40MG TABLET PO SCH (08:24)
[2023-04-02] MEDS: carvediloL 25 MG TAB PO SCH ×2 (08:24→20:39)
[2023-04-02] MEDS: FUROSEMIDE 20 MG TABLET PO SCH (08:24)
[2023-04-02] MEDS: lisinopriL 20 MG TAB PO SCH (08:24)
[2023-04-02] MEDS: ISOSORBIDE MONO SR 30 MG TAB PO SCH (08:24)
[2023-04-02] MEDS: GABAPENTIN 400 MG CAP PO SCH (08:24)
[2023-04-02] MEDS: APIXABAN 5 MG TABLET PO SCH ×2 (08:24→20:39)
[2023-04-02] MEDS: ASPIRIN EC 81 MG TAB PO SCH (08:25)
[2023-04-02] MEDS ORDERED: FLUOXETINE 20 MG CAP ONE (08:40)
[2023-04-02] MEDS: FLUOXETINE 10 MG CAP PO SCH (09:00)
--- NOTE | 2023-04-02 09:24 | P.PN ---
Date of Service: 04/02/23 Subjective: Still having some mild shortness of breath Chest pain improved from last night Reports recent heart catheterization with 2 stent placements at [facility] ROS: 10 point ROS as noted above, otherwise negative Physical exam GEN: Alert, oriented, NAD HEENT: Normal conjunctiva, sclera anicteric CV: Regular rate and rhythm, no edema Pulm: Nonlabored respirations nasal cannula ABD: Soft, nontender, nondistended MSK: No joint tenderness Integumentary: No rashes Neuro: Normal speech, normal affect Vitals reviewed Problem List Pulmonary embolism-left lower lobe lobar and segmental branches(small clot burden) DVT proximal left femoral vein CAD with recent stents-previous CABG Chronic diastolic congestive heart failure Diabetes mellitus type 2insulin-dependent with hyperglycemia Acute kidney injury Hypertension Anemia of chronic disease History of CVA-debility/bedbound Plan Pulmonary embolism-left lower lobe lobar and segmental branches(small clot burden) DVT proximal left femoral vein CAD with recent stents-previous CABG Chronic diastolic congestive heart failure Reports recent hospitalization at [facility] discharged 1 week ago Was in the hospital for 2 weeks there, had a heart catheterization with 2 stent placements Appears to been discharged on Brilinta, aspirin No CT evidence of right heart strain, obtain echocardiogram On nasal cannula-obtain room air sat Cardiology rec-eliaprilis, brillinta, aspirin for now, DC aspirin one month after cath/stents (04/17) Family feel unable to care for patient at home, want oncology social work to reach out Mother unable to operate mona at home Patient still having chest pain and dyspnea Diabetes mellitus type 2insulin-dependent with hyperglycemia ACHS Accu-Chek, sliding scale insulin, continue long-acting insulin from home Acute kidney injury Mild MENDEZ, not improved continue gentle IV fluids, recheck chemistry in the morning. Consider nephrology consult if there is worsening Hypertension Continue home medications Anemia of chronic disease Monitor H&H History of CVA-debility/bedbound Lives at home with her mother, is primarily bedbound Occasionally transfers to wheelchair with assistance from mother/Mona rn patient services consult, possible placement issues VTE: Therapeutic Lovenox Code: Full Dispo: 24 to 48 hours Time Spent Managing Pts Care (In Minutes): 35
[2023-04-02] MEDS: ATORVASTATIN 40 MG TAB PO SCH (20:39)
[2023-04-02] MEDS: MELATONIN 5 MG TABLET PO SCH (20:40)
[2023-04-03] MEDS: ONDANSETRON 4 MG/2 ML VIAL IV PRN ×2 (04:15→13:40)
[2023-04-03] MEDS: MORPHINE 4 MG/ML SYR IV PRN ×4 (04:15→20:22)
[2023-04-03] MEDS: INSULIN REGULAR (HUMAN) 100 UNIT/ML SQ SCH ×4 (07:30→20:20)
--- NOTE | 2023-04-03 09:11 | ECHO ---
HEIGHT: 5 ft 5 in WEIGHT: 230 lb 0 oz DATE OF STUDY: 03/31/[address]: Grant Schmitz DO 2-DIMENSIONAL: YES M.MODE: YES DOPPLER: YES COLOR FLOW: YES TDS: PORTABLE: YES DEFINITY: BUBBLE STUDY: DIAGNOSIS: PULMONARY EMBOLISM CARDIAC HISTORY: CATHERIZATION: SURGERY: PROSTHETIC VALVE: PACEMAKER: MEASUREMENTS (cm) DIASTOLIC (NORMALS) SYSTOLIC (NORMALS) IVSd 0.9 (0.6-1.2) LA Diam 3.4 (1.9-4.0) LVEF 68% LVIDd 4.2 (3.5-5.7) LVIDs 2.6 (2.0-3.5) %FS 38% LVPWd 1.0 (0.6-1.2) Ao Diam 2.6 (2.0-3.7) 2 DIMENSIONAL ASSESSMENT: RIGHT ATRIUM: NORMAL LEFT ATRIUM: NORMAL RIGHT VENTRICLE: NORMAL LEFT VENTRICLE: NORMAL TRICUSPID VALVE: NORMAL MITRAL VALVE: NORMAL PULMONIC VALVE: NORMAL AORTIC VALVE: NORMAL PERICARDIAL EFFUSION: NONE AORTIC ROOT: NORMAL LEFT VENTRICULAR WALL MOTION: NORMAL DOPPLER/COLOR FLOW: SEE BELOW COMMENTS: 1. NORMAL LEFT VENTRICULAR EJECTION FRACTION 60-65% WITH NORMAL WALL MOTION 2. NORMAL RIGHT VENTRICULAR SIZE AND FUNCTION TECHNOLOGIST: ENMANUEL GUTIERREZ
[2023-04-03] MEDS: APIXABAN 5 MG TABLET PO SCH ×2 (09:36→20:37)
[2023-04-03] MEDS: TICAGRELOR 90 MG TABLET PO SCH ×2 (09:36→20:20)
[2023-04-03] MEDS: EZETIMIBE 10 MG TAB PO SCH (09:36)
[2023-04-03] MEDS: GABAPENTIN 400 MG CAP PO SCH (09:37)
[2023-04-03] MEDS: FUROSEMIDE 20 MG TABLET PO SCH (09:37)
[2023-04-03] MEDS: lisinopriL 20 MG TAB PO SCH (09:37)
[2023-04-03] MEDS: FLUOXETINE 10 MG CAP PO SCH (09:37)
[2023-04-03] MEDS: carvediloL 25 MG TAB PO SCH ×2 (09:37→20:37)
[2023-04-03] MEDS: PANTOPRAZOLE 40MG TABLET PO SCH (09:38)
[2023-04-03] MEDS: ASPIRIN EC 81 MG TAB PO SCH (09:38)
[2023-04-03] MEDS: ISOSORBIDE MONO SR 30 MG TAB PO SCH (09:38)
--- NOTE | 2023-04-03 09:46 | P.PN ---
Date of Service: 04/03/23 Subjective: Still having some mild shortness of breath Having intermittent chest pain still Reports recent heart catheterization with 2 stent placements at [facility] ROS: 10 point ROS as noted above, otherwise negative Physical exam GEN: Alert, oriented, NAD HEENT: Normal conjunctiva, sclera anicteric CV: Regular rate and rhythm, no edema Pulm: Nonlabored respirations nasal cannula ABD: Soft, nontender, nondistended MSK: No joint tenderness Integumentary: No rashes Neuro: Normal speech, normal affect Vitals reviewed Problem List Pulmonary embolism-left lower lobe lobar and segmental branches(small clot burden) DVT proximal left femoral vein CAD with recent stents-previous CABG Chronic diastolic congestive heart failure Diabetes mellitus type 2insulin-dependent with hyperglycemia Acute kidney injury Hypertension Anemia of chronic disease History of CVA-debility/bedbound Plan Pulmonary embolism-left lower lobe lobar and segmental branches(small clot burden) DVT proximal left femoral vein CAD with recent stents-previous CABG Chronic diastolic congestive heart failure Reports recent hospitalization at [facility] discharged 1 week ago Was in the hospital for 2 weeks there, had a heart catheterization with 2 stent placements Appears to have been discharged on Brilinta, aspirin No CT evidence of right heart strain, obtain echocardiogram On room air now Cardiology rec-birgit brlisbeth, aspirin for now, DC aspirin one month after cath/stents (04/17) Family feel unable to care for patient at home Mother unable to operate mona at home Patient still having chest pain and dyspnea Diabetes mellitus type 2insulin-dependent with hyperglycemia ACHS Accu-Chek, sliding scale insulin, continue long-acting insulin from home Acute kidney injury Mild MENDEZ-improved, IVF discontinued Hypertension Continue home medications Anemia of chronic disease Monitor H&H History of CVA-debility/bedbound Lives at home with her mother, is primarily bedbound Occasionally transfers to wheelchair with assistance from mother/Mona business services sales agent consult, possible placement issues VTE: Therapeutic Lovenox Code: Full Dispo: 24 to 48 hours pending PT consult Time Spent Managing Pts Care (In Minutes): 35
--- NOTE | 2023-04-03 10:22 | P.CNS ---
Date of Consult: 03/31/23 Reason for Consult: Anticoagulation for PE already on Brilina and aspirin Requesting Physician: Ky Palmer Chief Complaint: Chest Pain History of Present Illness: Ms. Cortes is a 52 yo debilitated mostly bed bound patient s/p CVA who recently had Cardiac cath at [facility]. She presented to the ED with SOB and Chest pain. She was found to have a PE and is currently on Brilinta and Aspirin. Allergies amlodipine Allergy (Intermediate, Verified 02/23/23 17:27) Hives Home medications list reviewed: Yes Home Medications: Aspirin [Ecotrin 81 MG] 81 mg PO DAILY #30 tablet. 03/19/16 Atorvastatin Calcium [Lipitor*] 80 mg PO BEDTIME 09/01/21 Clopidogrel Bisulfate [Plavix] 75 mg PO DAILY 09/01/21 Ezetimibe [Zetia] 10 mg PO DAILY 09/01/21 Furosemide 20 mg PO DAILY 09/01/21 Gabapentin 400 mg PO DAILY 09/01/21 Nitroglycerin [Nitrostat*] 0.4 mg SL [id number] PRN 01/27/23 carvediloL [Coreg*] 25 mg PO BID #60 tab 01/27/23 lisinopriL [Prinivil*] 40 mg PO DAILY #30 tab 01/27/23 Fluoxetine HCl [Prozac*] 10 mg PO DAILY 02/23/23 Insulin Glargine,Hum.rec.anlog [Lantus Solostar] 35 unit SQ DAILY 02/23/23 Insulin Lispro [Humalog] See Protocol SQ ACHS 02/23/23 Isosorbide Mononitrate [Isosorbide Mononitrate ER] 30 mg PO DAILY 02/23/23 Lactulose 10 gm PO Q12HP PRN 02/23/23 Lidocaine 4% Patch [Lidoderm 5% Patch*] 1 patch TD DAILY 02/23/23 Melatonin [Melatoninmax] 10 mg PO BEDTIME 02/23/23 Omeprazole [Prilosec] 40 mg PO DAILY 02/23/23 Promethazine Tab [Phenergan*] 25 mg PO Q6HP PRN 02/23/23 Trazodone HCl 50 mg PO BEDTIME PRN PRN 02/23/23 hydrOXYzine HCL [Atarax] 50 mg PO Q6HP PRN 02/23/23 - Past Medical/Surgical History Diabetic: Yes -: hyperlipidemia -: hypertension -: Type 2 diabetes -: CVA -: CAD status post CABG -: Obesity -: hysterectomy -: hypertension -: tonsilectomy -: -: lumber spinal fusion -: cardiac stents x 2 2016 -: Gastric pacemaker/gastroparesis Psychosocial/ Personal History: Patient currently at [facility] after CVA - Family History Father Medical History: Heart disease, Hypertension, Diabetes, Stroke Mother Notes: no medical history - Social History Smoking Status: Unknown if ever smoked Alcohol use: No CD- Drugs: No Caffeine use: No Place of Residence: Home Review of Systems 10-point ROS is otherwise unremarkable Respiratory: As per HPI Cardiovascular: As per HPI Physical Examination Temp Pulse Resp BP Pulse Ox 97.5 F 69 16 164/85 H 98 04/03/23 08:00 04/03/23 08:00 04/03/23 08:00 04/03/23 08:00 04/03/23 08:00 General: Alert, In no apparent distress, Oriented x3 HEENT: Atraumatic, Normocephalic Neck: Supple, 2+ carotid pulse no bruit Respiratory: Clear to auscultation bilaterally Cardiovascular: No edema Capillary refill: <2 Seconds Gastrointestinal: Normal bowel sounds, Soft and benign Musculoskeletal: No clubbing Integumentary: No rashes Neurological: Normal speech, Abnormal strength, Abnormal affect Lymphatics: No axilla or inguinal lymphadenopathy External genitalia: Deferred - Problems (1) Coronary artery disease Current Visit: No Status: Acute Plan: Continue home medications: Aspirin, Atorvastatin, Plavix, Zetia, Lasix, Gabapentin, NTG Carvedilol, Lisinopril, Prozac, Insulin, Isosorb, Lactulose, Hydroxyzine Qualifiers: Coronary Disease-Associated Artery/Lesion type: [place] artery Associated angina: with stable angina (2) Pulmonary embolism Current Visit: Yes Status: Acute Plan: Continue Brilinta, Aspirin, and Plavix x 1 month and then dicontinue aspirin and continue on Brilinta and Plavix. Cardiology will sign off
[2023-04-03] MEDS: ATORVASTATIN 40 MG TAB PO SCH (20:20)
[2023-04-03] MEDS: MELATONIN 5 MG TABLET PO SCH (20:21)
[2023-04-04 03:38] LABS: Magnesium 1.7 mg/dL (1.6-2.4); Potassium 3.8 mEq/L (3.5-5.1)
[2023-04-04] MEDS: MORPHINE 4 MG/ML SYR IV PRN ×4 (06:41→23:26)
[2023-04-04] MEDS: INSULIN REGULAR (HUMAN) 100 UNIT/ML SQ SCH ×4 (07:30→23:27)
[2023-04-04] MEDS: EZETIMIBE 10 MG TAB PO SCH (09:13)
[2023-04-04] MEDS: APIXABAN 5 MG TABLET PO SCH ×2 (09:14→23:23)
[2023-04-04] MEDS: TICAGRELOR 90 MG TABLET PO SCH ×2 (09:14→23:22)
[2023-04-04] MEDS: FUROSEMIDE 20 MG TABLET PO SCH (09:14)
[2023-04-04] MEDS: ISOSORBIDE MONO SR 30 MG TAB PO SCH (09:14)
[2023-04-04] MEDS: GABAPENTIN 400 MG CAP PO SCH (09:15)
[2023-04-04] MEDS: lisinopriL 20 MG TAB PO SCH (09:15)
[2023-04-04] MEDS: ASPIRIN EC 81 MG TAB PO SCH (09:15)
[2023-04-04] MEDS: carvediloL 25 MG TAB PO SCH ×2 (09:16→23:24)
[2023-04-04] MEDS: FLUOXETINE 10 MG CAP PO SCH (09:16)
[2023-04-04] MEDS: PANTOPRAZOLE 40MG TABLET PO SCH (09:19)
--- NOTE | 2023-04-04 13:33 | P.PN ---
Date of Service: 04/04/23 Subjective: Awake and nauseous this AM, conversing well but with intermittent nausea. Unable to eat breakfast. ROS: 10 point ROS as noted above, otherwise negative Physical exam GEN: Alert, oriented, NAD HEENT: Normal conjunctiva, sclera anicteric CV: Regular rate and rhythm, no edema Pulm: Nonlabored respirations nasal cannula ABD: Soft, nontender, nondistended MSK: No joint tenderness Integumentary: No rashes Neuro: Normal speech, normal affect Vitals: BP 147/76, HR 73, RR 16, Temp 97.7, O2 saturation 99% on RA Problem List Pulmonary embolism-left lower lobe lobar and segmental branches(small clot burden) DVT proximal left femoral vein CAD with recent stents-previous CABG Chronic diastolic congestive heart failure Diabetes mellitus type 2insulin-dependent with hyperglycemia Acute kidney injury Hypertension Anemia of chronic disease History of CVA-debility/bedbound Plan Pulmonary embolism-left lower lobe lobar and segmental branches(small clot burden) DVT proximal left femoral vein CAD with recent stents-previous CABG Chronic diastolic congestive heart failure Reports recent hospitalization at [facility] discharged 1 week ago Was in the hospital for 2 weeks there, had a heart catheterization with 2 stent placements Appears to have been discharged on Brilinta, aspirin No CT evidence of right heart strain, obtain echocardiogram On room air now Cardiology rec-gunjan genao, aspirin for now, DC aspirin one month after cath/stents (04/17) Family feel unable to care for patient at home Mother unable to operate mona at home Patient still having chest pain and dyspnea Diabetes mellitus type 2insulin-dependent with hyperglycemia ACHS Accu-Chek, sliding scale insulin, continue long-acting insulin from home Acute kidney injury Mild MENDEZ-improved, IVF discontinued Hypertension Continue home medications Anemia of chronic disease Monitor H&H H/H 9.5/29.6 (04/04) History of CVA-debility/bedbound Lives at home with her mother, is primarily bedbound Occasionally transfers to wheelchair with assistance from mother/Mona donor services specialist consult, possible placement issues VTE: Therapeutic Lovenox Code: Full Dispo: 24 to 48 hours pending PT consult Time Spent Managing Pts Care (In Minutes): 35
--- NOTE | 2023-04-04 14:01 | EKG ---
Test Date: 2023-03-30 Test Time: 20:07:52 Infection Prevention Coordinator: MEASUREMENT RESULTS: Intervals: Rate: 60 TN: 156 QRSD: 88 QT: 446 QTc: 446 [place]: P: 60 TN: 156 QRS: -13 T: 56 INTERPRETIVE STATEMENTS: Normal sinus rhythm Indeterminate axis Septal infarct, age undetermined Abnormal ECG Compared to ECG 02/25/2023 09:35:13 Indeterminate axis now present Myocardial infarct finding still present Electronically Signed On 04-04-23 13:44:37 EXPRESSIVE THERAPIST by Elia Floyd
[2023-04-04] MEDS: ATORVASTATIN 40 MG TAB PO SCH (23:23)
[2023-04-04] MEDS: MELATONIN 5 MG TABLET PO SCH (23:23)
[2023-04-05 03:04] LABS: Magnesium 1.7 mg/dL (1.6-2.4); Potassium 3.5 mEq/L (3.5-5.1)
[2023-04-05] MEDS: MORPHINE 4 MG/ML SYR IV PRN (06:33)
[2023-04-05] MEDS: ONDANSETRON 4 MG/2 ML VIAL IV PRN (06:34)
[2023-04-05] MEDS: TICAGRELOR 90 MG TABLET PO SCH ×2 (08:51→20:40)
[2023-04-05] MEDS: EZETIMIBE 10 MG TAB PO SCH (08:51)
[2023-04-05] MEDS: ASPIRIN EC 81 MG TAB PO SCH (08:51)
[2023-04-05] MEDS: FLUOXETINE 10 MG CAP PO SCH (08:51)
[2023-04-05] MEDS: GABAPENTIN 400 MG CAP PO SCH (08:51)
[2023-04-05] MEDS: lisinopriL 20 MG TAB PO SCH (08:52)
[2023-04-05] MEDS: PANTOPRAZOLE 40MG TABLET PO SCH (08:52)
[2023-04-05] MEDS: carvediloL 25 MG TAB PO SCH ×2 (08:52→20:40)
[2023-04-05] MEDS: APIXABAN 5 MG TABLET PO SCH ×2 (08:52→20:40)
[2023-04-05] MEDS: INSULIN REGULAR (HUMAN) 100 UNIT/ML SQ SCH ×4 (08:53→20:46)
[2023-04-05] MEDS: ISOSORBIDE MONO SR 30 MG TAB PO SCH (08:53)
[2023-04-05] MEDS: FUROSEMIDE 20 MG TABLET PO SCH (08:53)
[2023-04-05] MEDS: MORPHINE 2 MG/ML SYR IV PRN ×3 (12:22→21:09)
--- NOTE | 2023-04-05 14:31 | P.PN ---
Date of Service: 04/05/23 Subjective: Awake and continues with intermittent nausea, she states crackers do not help her nausea and would rather not eat. Hyperglycemic, will adjust insulin and continue monitoring. ROS: 10 point ROS as noted above, otherwise negative Physical exam GEN: Alert, oriented, NAD HEENT: Normal conjunctiva, sclera anicteric CV: Regular rate and rhythm, no edema Pulm: Nonlabored respirations nasal cannula ABD: Soft, nontender, nondistended MSK: No joint tenderness Integumentary: No rashes Neuro: Normal speech, normal affect Vitals: BP 127/67, HR 63, RR 17, Temp 97.8, O2 saturation 99% on RA Problem List Pulmonary embolism-left lower lobe lobar and segmental branches(small clot burden) DVT proximal left femoral vein CAD with recent stents-previous CABG Chronic diastolic congestive heart failure Diabetes mellitus type 2insulin-dependent with hyperglycemia Acute kidney injury Hypertension Anemia of chronic disease History of CVA-debility/bedbound Plan Pulmonary embolism-left lower lobe lobar and segmental branches(small clot burden) DVT proximal left femoral vein CAD with recent stents-previous CABG Chronic diastolic congestive heart failure Reports recent hospitalization at [facility] discharged 1 week ago Was in the hospital for 2 weeks there, had a heart catheterization with 2 stent placements Appears to have been discharged on Brilinta, aspirin No CT evidence of right heart strain, obtain echocardiogram On room air now Cardiology rec-nitin genaoillineleuterio, aspirin for now, DC aspirin one month after cath/stents (04/17) Family feel unable to care for patient at home Mother unable to operate mona at home Patient still having chest pain and dyspnea Diabetes mellitus type 2insulin-dependent with hyperglycemia ACHS Accu-Chek, sliding scale insulin, continue long-acting insulin from home Acute kidney injury Mild MENDEZ-improved, IVF discontinued Hypertension Continue home medications Anemia of chronic disease Monitor H&H H/H 9.5/29.6 (04/04) History of CVA-debility/bedbound Lives at home with her mother, is primarily bedbound Occasionally transfers to wheelchair with assistance from mother/[facility]ona medical and health services manager consult, possible placement issues VTE: Therapeutic Lovenox Code: Full Dispo: 24 to 48 hours pending PT consult Time Spent Managing Pts Care (In Minutes): 35
[2023-04-05] MEDS: ATORVASTATIN 40 MG TAB PO SCH (20:40)
[2023-04-05] MEDS: MELATONIN 5 MG TABLET PO SCH (21:09)
[2023-04-06] MEDS: MORPHINE 2 MG/ML SYR IV PRN ×5 (02:38→21:29)
[2023-04-06 03:00] LABS: Magnesium 1.8 mg/dL (1.6-2.4); Potassium 3.7 mEq/L (3.5-5.1)
[2023-04-06] MEDS: ASPIRIN EC 81 MG TAB PO SCH (08:44)
[2023-04-06] MEDS: TICAGRELOR 90 MG TABLET PO SCH ×2 (08:44→21:29)
[2023-04-06] MEDS: FUROSEMIDE 20 MG TABLET PO SCH (08:44)
[2023-04-06] MEDS: EZETIMIBE 10 MG TAB PO SCH (08:45)
[2023-04-06] MEDS: GABAPENTIN 400 MG CAP PO SCH (08:45)
[2023-04-06] MEDS: lisinopriL 20 MG TAB PO SCH (08:45)
[2023-04-06] MEDS: carvediloL 25 MG TAB PO SCH ×2 (08:45→21:29)
[2023-04-06] MEDS: PANTOPRAZOLE 40MG TABLET PO SCH (08:45)
[2023-04-06] MEDS: APIXABAN 5 MG TABLET PO SCH ×2 (08:46→21:28)
[2023-04-06] MEDS: ISOSORBIDE MONO SR 30 MG TAB PO SCH (08:46)
[2023-04-06] MEDS: FLUOXETINE 10 MG CAP PO SCH (08:46)
[2023-04-06] MEDS: INSULIN REGULAR (HUMAN) 100 UNIT/ML SQ SCH ×4 (08:58→21:29)
--- NOTE | 2023-04-06 16:55 | RAD REPORT ---
EXAM DESCRIPTION: US - UPPER EXTREMITY VENOUS UNILATE - 04/06/2023 4:35 pm CLINICAL HISTORY: left arm swelling. COMPARISON: None. FINDINGS: Left internal jugular vein, left subclavian vein, left axillary vein, left brachial vein, left cephalic, left basilic, left ulnar and left radial veins demonstrate phasic signal. The veins are compressible. Doppler demonstrates good flow. Grayscale, color and spectral analysis performed on all vessels IMPRESSION: No sonographic evidence of thrombus involving the left upper extremity veins.
--- NOTE | 2023-04-06 18:25 | P.PN ---
Date of Service: 04/06/23 Subjective: Sleeping but arouses easily, Left arm swelling noted. Still with nausea. ROS: 10 point ROS as noted above, otherwise negative Physical exam GEN: Alert, oriented, NAD HEENT: Normal conjunctiva, sclera anicteric CV: Regular rate and rhythm, no edema Pulm: Nonlabored respirations nasal cannula ABD: Soft, nontender, nondistended MSK: No joint tenderness, Left arm swelling Integumentary: No rashes Neuro: Normal speech, normal affect Vitals stable Problem List Pulmonary embolism-left lower lobe lobar and segmental branches(small clot burden) DVT proximal left femoral vein CAD with recent stents-previous CABG Chronic diastolic congestive heart failure Diabetes mellitus type 2insulin-dependent with hyperglycemia Acute kidney injury Hypertension Anemia of chronic disease History of CVA-debility/bedbound Plan Pulmonary embolism-left lower lobe lobar and segmental branches(small clot burden) DVT proximal left femoral vein CAD with recent stents-previous CABG Chronic diastolic congestive heart failure Left arm swelling -Left arm US results "Left internal jugular vein, left subclavian vein, left axillary vein, left brachial vein, left cephalic, left basilic, left ulnar and left radial veins demonstrate phasic signal. The veins are compressible. Doppler demonstrates good flow. Grayscale, color and spectral analysis performed on all vessels. No sonographic evidence of thrombus involving the left upper extremity veins". -Reports recent hospitalization at [facility] discharged 1 week ago -Was in the hospital for 2 weeks there, had a heart catheterization with 2 stent placements -Appears to have been discharged on Brilinta, aspirin -No CT evidence of right heart strain, obtain echocardiogram -On room air now -Cardiology rec-birgit, brillinta, aspirin for now, DC aspirin one month after cath/stents (04/17) -Family feel unable to care for patient at home -Mother unable to operate mona at home -Patient still having chest pain and dyspnea Diabetes mellitus type 2insulin-dependent with hyperglycemia ACHS Accu-Chek, sliding scale insulin, continue long-acting insulin from home Acute kidney injury Mild MENDEZ-improved, IVF discontinued Hypertension Continue home medications Anemia of chronic disease Monitor H&H H/H 9.5/29.6 (04/04) History of CVA-debility/bedbound Lives at home with her mother, is primarily bedbound Occasionally transfers to wheelchair with assistance from mother/Mona environmental services specialist consult, possible placement issues VTE: Eliquis Code: Full Dispo: 24 to 48 hours pending PT consult Time Spent Managing Pts Care (In Minutes): 35
[2023-04-06] MEDS: ATORVASTATIN 40 MG TAB PO SCH (21:28)
[2023-04-06] MEDS: MELATONIN 5 MG TABLET PO SCH (21:30)
[2023-04-07] MEDS: INSULIN REGULAR (HUMAN) 100 UNIT/ML SQ SCH ×2 (08:43→12:53)
[2023-04-07] MEDS: GABAPENTIN 400 MG CAP PO SCH (08:44)
[2023-04-07] MEDS: FUROSEMIDE 20 MG TABLET PO SCH (08:44)
[2023-04-07] MEDS: ASPIRIN EC 81 MG TAB PO SCH (08:44)
[2023-04-07] MEDS: TICAGRELOR 90 MG TABLET PO SCH (08:44)
[2023-04-07] MEDS: carvediloL 25 MG TAB PO SCH (08:44)
[2023-04-07] MEDS: PANTOPRAZOLE 40MG TABLET PO SCH (08:44)
[2023-04-07] MEDS: APIXABAN 5 MG TABLET PO SCH (08:46)
[2023-04-07] MEDS: EZETIMIBE 10 MG TAB PO SCH (08:46)
[2023-04-07] MEDS: lisinopriL 20 MG TAB PO SCH (08:46)
[2023-04-07] MEDS: FLUOXETINE 10 MG CAP PO SCH (08:47)
[2023-04-07] MEDS: ISOSORBIDE MONO SR 30 MG TAB PO SCH (08:47)
[2023-04-07] MEDS: MORPHINE 2 MG/ML SYR IV PRN ×2 (08:58→12:55)
[2023-04-07 10:03] VITALS: O2SAT 94
[2023-04-07] MEDS: ONDANSETRON 4 MG/2 ML VIAL IV PRN (12:54)
[2023-04-07 14:18] VITALS: BP 121/59; TEMP 97.2
--- NOTE | 2023-04-07 14:23 | P.DS ---
Admission Date: 04/01/23 Discharge Date: 04/07/23 Disposition: ROUTINE DISCHARGE Discharge Condition: FAIR Reason for Admission: Chest Pain Brief History of Present Illness: Diagnosis Pulmonary embolism-left lower lobe lobar and segmental branches(small clot burden) CAD with recent stents-previous CABG Chronic diastolic congestive heart failure Diabetes mellitus type 2insulin-dependent with hyperglycemia Acute kidney injury Hypertension Anemia of chronic disease History of CVA-debility/bedbound Hospital Course: Romy Morse is a pleasant 52-year-old female with a past medical history significant for hypertension, diabetes, hyperlipidemia, CAD status post stents, CVA who was admitted to the [facility] on 03/30/23 for chest pain. This admission CT chest angio reported "Positive for acute pulmonary thromboemboli in the left lower lobe lobar and segmental branches (small clot burden)". Admit had been recently discharged from [facility] where she had a heart cath with 2 stents placed and on dual antiplatelet therapy. Lovenox was started, cardiology was consulted and agreed to Eliquis and Brilinta as appropriate treatment. This admission, Romy complained of chronic nausea. She reports having gastroparesis with the stimulator implanted 2 years ago. She will need to follow-up with GI, cardiology, and her PCP at discharge. On 04/07/2023, Romy was seen on morning rounds and deemed medically stable for discharge. Romy was discharged with instructions to schedule follow-up appointments with GI, cardiology, PCP. Romy was provided prescriptions for Zofr an. Also to continue Brilinta, aspirin, and Eliquis. The patient was given the opportunity to ask questions and reported no further questions. Furthermore, all questions were answered to the best of my ability. A copy of this discharge summary will be sent to the above providers to facilitate continuity of care. Today, I personally spent 55 minutes with Romy, of which greater than 50% of the time was spent in patient education, counseling, and coordination of care as described above. Vital Signs/Physical Exam: Temp Pulse Resp BP Pulse Ox 97.2 F 69 16 121/59 L 94 04/07/23 12:00 04/07/23 12:00 04/07/23 12:55 04/07/23 12:00 04/07/23 12:55 Laboratory Data at Discharge: WBC 6.90 thou/uL (4.3-10.9) 12/10/23 03:38 Hgb 9.5 g/dL (12.0-15.0) L 04/02/23 03:38 Hct 29.6 % (36.0-45.0) L 04/02/23 03:38 Plt Count 271 thou/uL (152-406) 04/02/23 03:38 PT 11.9 SECONDS (9.5-12.5) 03/30/23 20:30 INR 1.08 03/30/23 20:30 Sodium 139 mEq/L (136-145) 04/06/23 02:06 Potassium 3.7 mEq/L (3.5-5.1) 04/06/23 02:06 BUN 21 mg/dL (7-18) H 04/06/23 02:06 Creatinine 1.45 mg/dL (0.55-1.02) H 04/06/23 02:06 Glucose 171 mg/dL (74-106) H 04/06/23 02:06 Magnesium 1.8 mg/dL (1.6-2.4) 04/06/23 02:06 Total Bilirubin 0.3 mg/dL (0.2-1.0) 03/30/23 20:30 AST 10 U/L (15-37) L 03/30/23 20:30 ALT 17 U/L (13-56) 03/30/23 20:30 Alkaline Phosphatase 68 U/L (45-117) 03/30/23 20:30 Lipase 10 U/L (13-75) L 03/30/23 20:30 Home Medications: Aspirin [Ecotrin 81 MG] 81 mg PO DAILY #30 tablet 03/19/16 Atorvastatin Calcium [Lipitor*] 80 mg PO BEDTIME 09/01/21 Ezetimibe [Zetia] 10 mg PO DAILY 09/01/21 Furosemide 20 mg PO DAILY 09/01/21 Gabapentin 400 mg PO DAILY 09/01/21 Nitroglycerin [Nitrostat*] 0.4 mg SL [id number] PRN 01/27/23 carvediloL [Coreg*] 25 mg PO BID #60 tab 01/27/23 lisinopriL [Prinivil*] 40 mg PO DAILY #30 tab 01/27/23 Fluoxetine HCl [Prozac*] 10 mg PO DAILY 02/23/23 Insulin Glargine,Hum.rec.anlog [Lantus Solostar] 35 unit SQ DAILY 02/23/23 Insulin Lispro [Humalog] See Protocol SQ ACHS 02/23/23 Isosorbide Mononitrate [Isosorbide Mononitrate ER] 30 mg PO DAILY 02/23/23 Lactulose 10 gm PO Q12HP PRN 02/23/23 Lidocaine 4% Patch [Lidoderm 5% Patch*] 1 patch TD DAILY 02/23/23 Melatonin [Melatoninmax] 10 mg PO BEDTIME 02/23/23 Omeprazole [Prilosec] 40 mg PO DAILY 02/23/23 Promethazine Tab [Phenergan*] 25 mg PO Q6HP PRN 02/23/23 Trazodone HCl 50 mg PO BEDTIME PRN PRN 02/23/23 hydrOXYzine HCL [Atarax] 50 mg PO Q6HP PRN 02/23/23 Apixaban [Eliquis] 5 mg PO BID #60 tablet 04/07/23 Ondansetron [Zofran] 4 mg PO Q6H PRN #30 tab 04/07/23 Ticagrelor [Brilinta*] 90 mg PO BID 04/07/23 New Medications: Apixaban [Eliquis] 5 mg PO BID #60 tablet Ondansetron [Zofran] 4 mg PO Q6H PRN #30 tab PRN Reason: Nausea / Vomiting Physician Discharge Instructions: Physical exam GEN: Alert, oriented, NAD HEENT: Normal conjunctiva, sclera anicteric CV: Regular rate and rhythm, no edema Pulm: Nonlabored respirations on room air ABD: Soft, nontender, nondistended MSK: No joint tenderness Integumentary: No rashes Neuro: Normal speech, normal affect 1. Discharge to Care Home 2. Follow up with [facility]boat [facility] for continued management of gastroperisis and chronic nausea 3. Follow up with Cardiology for continued management of stable angina and recent stent placement 4. Follow up with PCP for continued medication management 5. Continue with heart healthy diet 6. Fall risk, when participating in physical therapy she will need to be ex tensively assisted 7. New medication: Zofran for nausea as needed and as directed 8. Continue antiplatelet/anticoagulant therapy with Brilinta, aspirin, and Eliquis Diet: ADA (Soft diet, bite size) Activity: Fall precautions Time spent managing pt's care (in minutes): 55
== END 2023-04-07 17:05 | DRG 176 ==
LOC: ER 19:45 → ERHOLD 22:23 → 2ND 03-31 01:56 → OBSVTOIN 04-01 11:35
PROVIDERS: ADMIT Family Medicine; ATTEND Internal Medicine
DX: I26.99 Other pulmonary embolism without acute cor pulmonale (principal); I50.32 Chronic diastolic (congestive) heart failure; I82.412 Acute embolism and thrombosis of left femoral vein; N17.9 Acute kidney failure, unspecified; I11.0 Hypertensive heart disease with heart failure; E78.5 Hyperlipidemia, unspecified; E11.65 Type 2 diabetes mellitus with hyperglycemia; D63.8 Anemia in other chronic diseases classified elsewhere; I25.118 Atherosclerotic heart disease of native coronary artery with other forms of angina pectoris; Z88.8 Allergy status to other drugs, medicaments and biological substances; Z95.5 Presence of coronary angioplasty implant and graft; Z79.4 Long term (current) use of insulin; Z95.1 Presence of aortocoronary bypass graft; Z79.02 Long term (current) use of antithrombotics/antiplatelets; Z86.73 Personal history of transient ischemic attack (TIA), and cerebral infarction without residual deficits; Z74.01 Bed confinement status; Z79.82 Long term (current) use of aspirin; Z98.51 Tubal ligation status; Z90.710 Acquired absence of both cervix and uterus; Z79.899 Other long term (current) drug therapy
CPT/HCPCS: 36415; 71045; 71275; 80048; 80076; 81003; 82947; 83690; 83735; 83880; 84484; 85025; 85027; 85610; 92610; 93005; 93306; 93970; 93971; 96372; 96374; 96375; 97110; 97161; 97165; 97530; 99284; G0378; J1650; J1815; J2270; J2405; J7030; Q9967